=== PATIENT | male | born 1940 | race Caucasian/White ===

== ENCOUNTER 2016-05-08 09:24 | Observation (INO) | payer OTHER ==
[~2016-05-08] VITALS: Ht 177.8 cm; Wt 77.4 kg
[~2016-05-08 09:24] MED LIST: ASPI81TA28 PO; CALC-445; DIGO0.122 PO; ELQ25 PO; LISI40TA PO; METF-384 PO; MOME200A INH; MONT1TAB5 PO; NTRSLP4 SL; SIMV40TA2 PO; VERA240C2 PO
[2016-05-08] MEDS ORDERED: SODIUM CHLORIDE 0.9% 500ML 500 ML IV STA (09:47)
[2016-05-08] MEDS ORDERED: CLOP1TAB15 PO (09:48)
[2016-05-08] MEDS ORDERED: DILT240C48 PO (09:48)
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
[2016-05-08] MEDS ORDERED: DILT120C PO (09:51)
--- NOTE | 2016-05-08 09:53 | DIAGNOSTIC IMAGING REPORT ---
SINGLE VIEW CHEST CLINICAL HISTORY: Change in mental status. FINDINGS: An AP, portable, upright chest radiograph is compared to study dated 03/08/2016. Correlation is made with chest CT dated 06/07/2012. The examination is degraded by portable technique and patient rotation. The heart is mildly enlarged and there is atherosclerotic calcification of the thoracic aorta. The pulmonary vasculature is noncongested. Emphysema and chronic interstitial thickening is similar to previous. No airspace consolidation or pleural effusion is identified. No pneumothorax is seen. The skeletal structures are osteopenic. The bony thorax is grossly intact. IMPRESSION: Cardiomegaly and emphysema with no acute cardiopulmonary abnormality. Electronically signed by: Eze Chairez M.D. 05/08/2016 9:51 AM
[2016-05-08 09:55] LABS: BASO % 0.5 %; BASO ABS # 0.05 K/uL (0-0.2); COMPLETE YES; EOS % 3.2 %; HEMATOCRIT 43.7 % (42-52); IG% 0.5 %; LYMPH % 18.4 %; LYMPH ABS # 1.75 K/uL (1.2-3.4); MEAN CELL VOLUME 90.3 fL (80-100); MEAN CORPUSCULAR HEMOGLOBIN 30.6 pg (25-34); MEAN CORPUSCULAR HGB CONC 33.9 g/dl (32-36); MEAN PLATELET VOLUME 10.2 fL (7.4-10.4); MONO % 5.9 %; NEUT % 71.5 %; PLATELET COUNT 226 K/uL (130-400); RED BLOOD COUNT 4.84 M/uL (4.7-6.1); WHITE BLOOD COUNT 9.52 K/uL (4.8-10.8)
[2016-05-08] MEDS ORDERED: ALBUT/IPRATROP 3MG/0.5MG NEB 3 ML VIAL INH ONE (10:00)
--- NOTE | 2016-05-08 10:13 | DIAGNOSTIC IMAGING REPORT ---
CT SCAN OF THE BRAIN WITHOUT IV CONTRAST CLINICAL HISTORY: Change in mental status. COMPARISON STUDY: MRI of the brain dated 05/29/2013. TECHNIQUE: Unenhanced axial CT scan of the brain is performed from the vertex to the skull base. CT DOSE: 537.48 mGy.cm FINDINGS: Brain parenchyma: There are age-related involutional changes noting [id number] patchy subcortical and periventricular microangiopathic change. Chronic lacunar infarcts are identified in the basal ganglia bilaterally. There is no hemorrhage, mass effect, or evidence of acute territorial ischemia by CT criteria. Rhodes-white matter is preserved. No extra-axial fluid collection is seen. Ventricles, sulci, cisterns: Prominent secondary to involutional change. Intracranial vasculature: There is atherosclerotic calcification of the cavernous carotid and vertebral arteries. Calvarium: Unremarkable. Sinuses and mastoids: The visualized paranasal sinuses are clear. The mastoid air cells are well pneumatized. Orbits: The bony orbits are grossly intact. There are bilateral ocular lens implants. IMPRESSION: There is no hemorrhage, mass effect, or evidence of acute territorial ischemia by CT criteria. Electronically signed by: Eze Chairez M.D. 05/08/2016 10:11 AM
[2016-05-08 10:15] VITALS: PULSE 65; O2SAT 96
[2016-05-08 10:33] LABS: ALT/SGPT 28 U/L (12-78); BLOOD UREA NITROGEN 12 mg/dl (7-18); BUN/CREATININE RATIO 13.1 (10-20); CALCIUM 8.4 mg/dl (8.5-10.1); CARBON DIOXIDE 26 mmol/L (21-32); CHLORIDE 104 mmol/L (98-107); CREATININE 0.93 mg/dl (0.60-1.40); GLUCOSE 184 mg/dl (70-99); POTASSIUM 4.6 mmol/L (3.5-5.1); SODIUM 141 mmol/L (136-145)
[2016-05-08 10:41] LABS: ALKALINE PHOSPHATASE 62 U/L (45-117); AST/SGOT 25 U/L (15-37); CKMB/CK RATIO 2.4 (0-3.0)
[2016-05-08 11:47] VITALS: BMI 24.5
[2016-05-08] MEDS ORDERED: APIXABAN 2.5 MG TAB PO ONE (12:05)
[2016-05-08] MEDS ORDERED: ALBUT/IPRATROP 3MG/0.5MG NEB 3 ML VIAL INH PRN (12:15)
[2016-05-08] MEDS ORDERED: ZOLPIDEM TARTRATE 5 MG TAB PO PRN (12:15)
[2016-05-08] MEDS ORDERED: ONDANSETRON INJ 2 MG/ML 2 ML VIAL IV PRN (12:15)
[2016-05-08] MEDS ORDERED: ACETAMINOPHEN 325 MG TAB PO PRN (12:15)
[2016-05-08] MEDS ORDERED: PHARMACIST DISCHARGE MED REC CONSULT PRN (12:15)
[2016-05-08] MEDS ORDERED: NITROGLYCERIN 0.4 MG SL PER TAB CHARGE SL PRN (12:15)
[2016-05-08] MEDS ORDERED: ALUMINUM/MAGNESIUM/SIMETH (MAALOX MAX) 30 ML UDC PO PRN (12:15)
[2016-05-08] MEDS ORDERED: MAGNESIUM HYDROXIDE SUSP 30 ML UDC PO PRN (12:15)
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
[2016-05-08] MEDS ORDERED: GLUCOSE 40% GEL 15 GM TUBE PO PRN (13:00)
[2016-05-08] MEDS ORDERED: DEXTROSE 50% 50 ML SYR IV PRN (13:00)
[2016-05-08] MEDS ORDERED: GLUCAGON FOR INJ 1 MG VIAL SQ PRN (13:00)
[2016-05-08] MEDS ORDERED: DC ALL PREVIOUSLY ORDERED DIABETES MEDS ONE (13:00)
[2016-05-08] MEDS ORDERED: GLUCOSE 10 TABS/TUBE PO PRN (13:00)
--- NOTE | 2016-05-08 13:12 | DIAGNOSTIC IMAGING REPORT ---
ULTRASOUND OF THE CAROTID ARTERIES CLINICAL HISTORY: Strokelike symptoms. COMPARISON STUDY: No priors. TECHNIQUE: Real-time, grayscale, and color Doppler sonography of the carotid arteries is performed. Images are reviewed in the transverse and longitudinal planes. FINDINGS: Blood pressures were not assessed due to the presence of IV catheters. The carotid arteries are patent bilaterally and demonstrate antegrade flow. There is moderate echogenic shadowing atherosclerotic plaque seen bilaterally, right greater than left. Normal doppler arterial waveforms are seen throughout. Velocity measurements are listed below. Common carotid peak systolic velocity (cm/sec): RIGHT: 127 LEFT: 117 ICA proximal peak systolic velocity (cm/sec): RIGHT: 87 LEFT: 82 ICA mid peak systolic velocity (cm/sec): RIGHT: 111 LEFT: 106 ICA distal peak systolic velocity (cm/sec): RIGHT: 102 LEFT: 91 ICA/CC peak systolic ratio: RIGHT: 0.9 LEFT: 0.9 Antegrade flow was shown in the vertebral arteries. The external carotid arteries are patent. IMPRESSION: 1. Atherosclerotic plaque with no sonographic evidence of hemodynamically significant stenosis in the right or left carotid arterial system. 2. Antegrade flow is shown in the vertebral arteries. Electronically signed by: Eze Chairez M.D. 05/08/2016 1:10 PM
[2016-05-08] MEDS ORDERED: IV FLUIDS COMPLETED PRN (13:45)
[2016-05-08 14:07] VITALS: BP 126/68; PULSE 81; TEMP 36.3; O2SAT 94
[2016-05-08] MEDS ORDERED: DILT120C99 PO (15:12)
[2016-05-08 15:22] VITALS: BP 119/86; PULSE 104; TEMP 37.4; O2SAT 92
[2016-05-08] MEDS: DULERA: ORDER AWAITING ACTION SCH (15:28)
[2016-05-08] MEDS: ASPIRIN 81 MG ECTAB PO SCH ×2 (15:28→20:57)
[2016-05-08] MEDS: CLOPIDOGREL BISULFATE 75 MG TAB PO SCH (15:29)
[2016-05-08] MEDS ORDERED: NURSING VERBAL MED ORDER ONE (15:30)
[2016-05-08 15:48] LABS: URINE APPEARANCE CLEAR (CLEAR); URINE BILIRUBIN NEG (NEG); URINE COLOR YELLOW; URINE NITRITE NEG (NEG); UROBILINOGEN NEG (NEG)
[2016-05-08 15:59] LABS: MANUAL MICROSCOPIC REQUIRED? NO; REVIEW REQ? NO
[2016-05-08] MEDS: INSULIN ASPART 100 UNITS/ML 3 ML PEN SC SCH ×2 (17:18→21:02)
[2016-05-08 18:44] LABS: CKMB/CK RATIO 2.5 (0-3.0)
[2016-05-08 19:16] VITALS: BP 136/81; PULSE 72; TEMP 36.7; O2SAT 94
[2016-05-08 20:00] VITALS: O2SAT 94
[2016-05-08] MEDS: APIXABAN 2.5 MG TAB PO SCH (20:59)
[2016-05-08] MEDS ORDERED: DILTIAZEM HCL 120 MG CAPCR PO SCH (21:00)
[2016-05-08 23:35] VITALS: BP_SYST 125; BP_SYST 135; BP_SYST 137; BP_DIAS 72; BP_DIAS 75; BP_DIAS 79; PULSE 65; TEMP 36.8; O2SAT 93
[2016-05-09] VITALS (7 sets, daily range): BP systolic 145–168; BP diastolic 54–81; PULSE 59–67; TEMP 36.4–36.8; O2SAT 93–96; Ht 177.8 cm; Wt 77.4 kg
[2016-05-09 02:13] LABS: BASO % 0.6 %; BASO ABS # 0.06 K/uL (0-0.2); COMPLETE YES; EOS % 4.4 %; HEMATOCRIT 41.1 % (42-52); IG% 0.3 %; LYMPH % 17.6 %; LYMPH ABS # 1.67 K/uL (1.2-3.4); MEAN CELL VOLUME 90.3 fL (80-100); MEAN CORPUSCULAR HEMOGLOBIN 30.8 pg (25-34); MEAN CORPUSCULAR HGB CONC 34.1 g/dl (32-36); MEAN PLATELET VOLUME 9.7 fL (7.4-10.4); MONO % 7.7 %; NEUT % 69.4 %; PLATELET COUNT 213 K/uL (130-400); RED BLOOD COUNT 4.55 M/uL (4.7-6.1); WHITE BLOOD COUNT 9.47 K/uL (4.8-10.8)
[2016-05-09 02:31] LABS: BLOOD UREA NITROGEN 10 mg/dl (7-18); BUN/CREATININE RATIO 11.4 (10-20); CALCIUM 8.5 mg/dl (8.5-10.1); CARBON DIOXIDE 26 mmol/L (21-32); CHLORIDE 107 mmol/L (98-107); CREATININE 0.92 mg/dl (0.60-1.40); GLUCOSE 157 mg/dl (70-99); SODIUM 142 mmol/L (136-145)
[2016-05-09 02:46] LABS: CHOLESTEROL 150 mg/dl (0-200); CHOLESTEROL/HDL RATIO 2.9; CKMB/CK RATIO 2.3 (0-3.0); HDL CHOLESTEROL 51 mg/dl; LDL CHOLESTEROL CALCULATED 64 mg/dl; TRIGLYCERIDES 174 mg/dl (0-150); VERY LOW DENSITY LIPOPROT CALC 35 mg/dl
[2016-05-09] MEDS ORDERED: GADAVIST IV PRN (03:30)
--- NOTE | 2016-05-09 07:07 | DIAGNOSTIC IMAGING REPORT ---
MRA OF THE INTRACRANIAL CIRCULATION WITHOUT CONTRAST CLINICAL HISTORY: Stroke. Confusion. COMPARISON STUDY: None. TECHNIQUE: Utilizing a 1.5 Ramona magnet and 3-D [id number] technique, unenhanced MRA of the intracranial circulation was obtained. FINDINGS: The bilateral M1, M2, A1 and A2 segments are patent. No abrupt vessel cut off is identified. No aneurysm is identified within the intracranial circulation although sensitivity for detection of small aneurysms is diminished on this exam. Posterior circulation is intact. IMPRESSION: Unremarkable MRA of the intracranial circulation. Electronically signed by: Kevin Hernández M.D. 05/09/2016 7:05 AM
--- NOTE | 2016-05-09 07:27 | DIAGNOSTIC IMAGING REPORT ---
Brain MRI WITH AND WITHOUT CONTRAST HISTORY: Stroke TECHNIQUE: Multiplanar multisequence MRI of the brain was performed both before and after the intravenous administration of contrast. COMPARISON STUDY: Head CT 05/08/2016. Brain MRI 05/29/2013. FINDINGS: There are no areas of restricted diffusion to suggest acute infarction. The midline structures are intact. The paranasal sinuses are clear. The mastoid air cells are clear. The ventricles and sulci are within normal limits for age. There is no hematoma, midline shift. The major vascular flow-voids at the skull base are well maintained. Stable 9 x 3 mm right parafalcine enhancing extra-axial lesion best seen on image 18 of the axial T1 postcontrast sequences. This is consistent with a meningioma. There is also a stable 7 mm right posterior frontal peripheral T2 hypointense lesion. This likely represents a cavernoma. IMPRESSION: No significant change compared to the prior study. No acute intracranial abnormality. Small cavernoma and small meningioma as described above. Electronically signed by: Reagan Villanueva M.D. 05/09/2016 7:26 AM
[2016-05-09] MEDS: INSULIN ASPART 100 UNITS/ML 3 ML PEN SC SCH ×2 (07:55→12:33)
[2016-05-09] MEDS: DULERA: ORDER AWAITING ACTION SCH ×2 (08:00)
[2016-05-09] MEDS: APIXABAN 2.5 MG TAB PO SCH (08:05)
[2016-05-09] MEDS: CLOPIDOGREL BISULFATE 75 MG TAB PO SCH (08:05)
[2016-05-09] MEDS: ASPIRIN 81 MG ECTAB PO SCH (08:06)
[2016-05-09 08:08] LABS: ESTIMATED AVERAGE GLUCOSE 189 mg/dl; HA1C FLAG Normal (Normal)
[2016-05-09] MEDS ORDERED: MONTELUKAST SOD 10 MG TAB PO SCH (09:00)
[2016-05-09] MEDS ORDERED: SIMVASTATIN 40 MG TAB PO SCH (09:00)
[2016-05-09] MEDS ORDERED: LISINOPRIL 40 MG TAB PO SCH (09:00)
[2016-05-09] MEDS ORDERED: DILTIAZEM HCL 120 MG CAPCR PO SCH (09:00)
--- NOTE | 2016-05-09 14:58 | Discharge Instructions ---
Discharge Instructions Admission Reason for Admission: TIA (Quin Miranda, MATTHEW) Discharge Discharge Diagnosis / Problem: TIA (Quin Miranda, MATTHEW) Discharge Goals Goal(s): Learn about illness, Diagnostic testing, Therapeutic intervention, Prevent Disease Progression (Quin Miranda, MATTHEW) Activity Recommendations Activity Limitations: resume your previous activity . (Quin Miranda, MATTHEW) Instructions / Follow-Up Instructions / Follow-Up Resume all regular home medications as prescribed to you Please follow-up with Dr. Heck on May 16 at 2:30pm Please follow-up/keep all of your subspecialty appointments Risk Factors for Stroke: You can reduce your chances of stroke by working with your medical provider to adopt a healthy lifestyle. Some specific ways to lower your chance of stroke are: * If you are a smoker, now is the time to stop smoking cigarettes * If you are diabetic, improve the control of your blood sugars * Avoid excessive amounts of alcohol * Control high blood pressure * Lose weight if you are overweight * Be sure to lead an active lifestyle * Eat a healthy diet low in salt, cholesterol and fat You should know about other risk factors for stroke that you are unable to control. These include: * Age 55 years or older * Male gender * Certain racial groups: , or / * Family History of Stroke, Mini stroke or Heart Attack * Sickle Cell Disease Follow Up: It is important for you to keep your follow up appointments with your medical provider. (Quin Miranda PA-C) Current Hospital Diet Patient's current hospital diet: Diabetes Type 2 Diet, AHA Diet (Heart Healthy) (Quin Miranda PA-C) Discharge Diet Recommended Diet: AHA Diet (Heart Healthy) (Quin Miranda PA-C) Procedures Procedures Performed: 1. CXR 2. Carotid U/S 3. Head MRA 4. MRI of brain 5. Head CT 6. Echocardiogram (Quin Miranda PA-C) Pending Studies Studies pending at discharge: no (Quin Miranda PA-C) Laboratory Results Last 24 Hours Test 05/08/16 15:30 05/08/16 16:02 05/08/16 18:11 05/08/16 20:00 Urine Color YELLOW Urine Appearance CLEAR Urine pH 5.0 Urine Specific Crary 1.000 Urine Protein NEG Urine Glucose (UA) NEG Urine Ketones NEG Urine Occult Blood NEG Urine Nitrite NEG Urine Bilirubin NEG Urine Urobilinogen NEG Urine Leukocyte Esterase NEG Bedside Glucose 259 mg/dl 211 mg/dl Total Creatine Kinase 92 U/L Creatine Kinase MB 2.3 ng/ml Creatine Kinase MB Ratio 2.5 Troponin I < 0.015 ng/ml Test 05/09/16 02:05 05/09/16 07:12 05/09/16 11:05 White Blood Count 9.47 K/uL Red Blood Count 4.55 M/uL Hemoglobin 14.0 g/dL Hematocrit 41.1 % Mean Corpuscular Volume 90.3 fL Mean Corpuscular Hemoglobin 30.8 pg Mean Corpuscular Hemoglobin Concent 34.1 g/dl Platelet Count 213 K/uL Mean Platelet Volume 9.7 fL Neutrophils (%) (Auto) 69.4 % Lymphocytes (%) (Auto) 17.6 % Monocytes (%) (Auto) 7.7 % Eosinophils (%) (Auto) 4.4 % Basophils (%) (Auto) 0.6 % Neutrophils # (Auto) 6.56 K/uL Lymphocytes # (Auto) 1.67 K/uL Monocytes # (Auto) 0.73 K/uL Eosinophils # (Auto) 0.42 K/uL Basophils # (Auto) 0.06 K/uL RDW Standard Deviation 55.6 fL RDW Coefficient of Variation 16.9 % Immature Granulocyte % (Auto) 0.3 % Immature Granulocyte # (Auto) 0.03 K/uL Sodium Level 142 mmol/L Potassium Level 4.0 mmol/L Chloride Level 107 mmol/L Carbon Dioxide Level 26 mmol/L Anion Gap 9.0 mmol/L Blood Urea Nitrogen 10 mg/dl Creatinine 0.92 mg/dl Est Creatinine Clear Calc Drug Dose 72.7 ml/min Estimated GFR () 94.6 Estimated GFR (Non- 81.6 BUN/Creatinine Ratio 11.4 Random Glucose 157 mg/dl Calcium Level 8.5 mg/dl Total Creatine Kinase 77 U/L Creatine Kinase MB 1.8 ng/ml Creatine Kinase MB Ratio 2.3 Troponin I < 0.015 ng/ml Triglycerides Level 174 mg/dl Cholesterol Level 150 mg/dl HDL Cholesterol 51 mg/dl LDL Cholesterol, Calculated 64 mg/dl VLDL Cholesterol, Calculated 35 mg/dl Cholesterol/HDL Ratio 2.9 Bedside Glucose 195 mg/dl 197 mg/dl Hemoglobin A1c Test 05/08/16 08:50 Range/Units Estimated Average Glucose 189 mg/dl Hemoglobin A1c 8.2 H 4.5-5.6 % Lipid Panel Test 05/09/16 02:05 Range/Units Triglycerides Level 174 H 0-150 mg/dl Cholesterol Level 150 0-200 mg/dl HDL Cholesterol 51 mg/dl Cholesterol/HDL Ratio 2.9 LDL Cholesterol, Calculated 64 mg/dl (Quin Miranda, PA-C) Medical Emergencies . Who to Call and When: Medical Emergencies: Call 911 immediately if you experience any of the following warning signs and symptoms of Stroke: * Sudden numbness or weakness of the face, arm or leg, especially on one side of the body * Sudden confusion, trouble speaking or understanding * Sudden trouble seeing in one or both eyes * Sudden trouble walking, dizziness, loss of balance or coordination * Sudden severe headache with no cause Do not delay calling 911 if you experience any warning signs or symptoms of a stroke. Delay in seeking medical attention may affect what treatments can be given to you. . (Quin Miranda ., ANA MARIA-C) Non-Emergent Contact Non-Emergency issues call your: Primary Care Provider Call Non-Emergent contact if: you have a fever, you have any medication questions . (Quin Miranda, SHARONC) . "Provider Documentation" section prepared by Quin Miranda. (Quin Miranda PA-C) Stroke Core Measures Reason no t-PA for Stroke: Treatment not indicated Reason no antithrom by day 2: Treatment provided - N/A Reason no antithrom at D/C: Treatment provided - N/A Reason no statin at D/C: Treatment provided - N/A Reason no anticoag w/a fib: Treatment provided - N/A (Quin Miranda, ANA MARIA-C) VTE Core Measure Inpt VTE Proph given/why not?: Other Anticoagulation (Eliquis) (Quin Miranda, SHARONC)
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
--- NOTE | 2016-05-09 15:21 | ECHOCARDIOGRAM REPORT ---
*NOTICE TO RECEIVING DEMOCRAT AGENCY This information is strictly Confidential and protected under [place] law. [place] law prohibits you from making any further disclosure of this information unless further disclosure is expressly permitted by the written consent of the person to whom it pertains or is authorized by law. A general authorization for the release of medical or other information is not sufficient for this purpose. Hospital accepts no responsibility if the information is made available to any other person, INCLUDING THE PATIENT. Interpretation Summary * Name: LUCIAN LOPEZ Study Date: 05/09/2016 06:56 AM BP: 153/79 mmHg * Patient Location: [facility] [place] HR: 65 * : 1940 (M/d/yyyy) Gender: Male Height: 70 in * Age: 75 yrs Ethnicity: CA Weight: 170 lb * Ordering Physician: PEE GONCALVES MD * Performed By: Manisha Beckman * * Reason For Study: CEREBRAL ISCHEMIA/ EMBOLUS * BSA: 1.9 m2 * -- Conclusions -- * 1. Borderline LV dilation with normal LV wall thickness. * 2. Normal LV systolic function. LVEF 60-65%. No regional wall motion abnormalities. * 3. Normal RV size and function. * 4. Mild aortic sclerosis without stenosis. * 5. Grade I diastolic dysfunction. * 6. Negative saline contrast study for interatrial shunt. * 7. Compared with prior study on 06/10/2015: No significant changes. Procedure Details * A complete two-dimensional transthoracic echocardiogram was performed (2D, M-mode, Doppler and color flow Doppler). * A saline contrast injection was performed to assess for cardiac shunting. * The injection was performed through an intravenous line in the left arm. * The attending nurse who injected the saline contrast was WADE SOL RN. * A total of 30 cc of agitated saline was given. Left Ventricle * The left ventricle is borderline dilated. * There is normal left ventricular wall thickness. * Ejection Fraction = 60-65%. * No regional wall motion abnormalities noted. Right Ventricle * The right ventricle is grossly normal size. * The right ventricular systolic function is normal as assessed by tricuspid annular plane systolic excursion (TAPSE) (normal >1.5 cm). Atria * The left atrium is borderline dilated. * Right atrial size is normal. * Injection of contrast documented no interatrial shunt. Mitral Valve * There is mild mitral annular calcification. * There is no mitral valve stenosis. * Significant mitral regurgitation is absent. Tricuspid Valve * The tricuspid valve is not well visualized, but is grossly normal. * There is no tricuspid stenosis. * Significant tricuspid regurgitation is absent. Aortic Valve * Aortic valve sclerosis mild, without significant aortic valvular stenosis. * No hemodynamically significant valvular aortic stenosis. * There is no significant aortic regurgitation. Pulmonic Valve * The pulmonary valve is inadequately visualized, but the Doppler data is adequate for interpretation. * Pulmonic stenosis is absent. * There is no pulmonic valvular regurgitation. Great Vessels * The aortic root and proximal ascending aorta are normal sized. Pericardium/Pleural * Trivial pericardial effusion Great Vessels * Normal inferior vena cava size and collapsability with sniff indicates a normal right atrial pressure of 3 mmHg Left Ventricular Diastolic Function * Grade I diastolic dysfunction, (abnormal relaxation pattern). MMode 2D Measurements and Calculations IVSd 0.89 cm IVSs 1.0 cm LVIDd 5.6 cm LVIDs 3.6 cm LVPWd 0.52 cm LVPWs 1.3 cm IVS/LVPW 1.7 FS 35.3 % EDV(Teich) 151.6 ml ESV(Teich) 54.4 ml EF(Teich) 64.1 % EDV(cubed) 172.6 ml ESV(cubed) 46.7 ml EF(cubed) 73.0 % % IVS thick 16.3 % % LVPW thick 146.2 % LV mass(C)d 140.0 grams LV mass(C)dI 71.9 grams/m\S\2 LV mass(C)s 134.3 grams LV mass(C)sI 69.0 grams/m\S\2 CO(Teich) 5.8 l/min CI(Teich) 3.0 l/min/m\S\2 SV(Teich) 97.2 ml SI(Teich) 49.9 ml/m\S\2 CO(cubed) 7.6 l/min CI(cubed) 3.9 l/min/m\S\2 SV(cubed) 126.0 ml SI(cubed) 64.7 ml/m\S\2 ACS 0.92 cm LA dimension 4.0 cm asc Aorta Diam 3.5 cm LVOT diam 2.3 cm LVOT area 4.1 cm\S\2 LVAd ap4 26.9 cm\S\2 LVLd ap4 7.7 cm EDV(MOD-sp4) 77.9 ml LVAs ap4 12.8 cm\S\2 LVLs ap4 5.8 cm ESV(MOD-sp4) 25.5 ml EF(MOD-sp4) 67.3 % LVAd ap2 21.2 cm\S\2 LVLd ap2 6.6 cm EDV(MOD-sp2) 59.0 ml LVAs ap2 10.1 cm\S\2 LVLs ap2 5.2 cm ESV(MOD-sp2) 16.7 ml EF(MOD-sp2) 71.7 % CO(MOD-sp4) 3.1 l/min CI(MOD-sp4) 1.6 l/min/m\S\2 SV(MOD-sp4) 52.4 ml SI(MOD-sp4) 26.9 ml/m\S\2 CO(MOD-sp2) 2.5 l/min CI(MOD-sp2) 1.3 l/min/m\S\2 SV(MOD-sp2) 42.3 ml SI(MOD-sp2) 21.7 ml/m\S\2 Doppler Measurements and Calculations MV E max nemesio 97.5 cm/sec MV A max nemesio 116.4 cm/sec MV E/A 0.84 MV V2 max 129.0 cm/sec MV max PG 6.7 mmHg MV V2 mean 65.8 cm/sec MV mean PG 2.1 mmHg MV V2 VTI 49.1 cm MV dec time 0.20 sec Ao V2 max 188.7 cm/sec Ao max PG 14.2 mmHg Ao max PG (full) 9.7 mmHg VIVEK(V,A) 2.3 cm\S\2 VIVEK(V,D) 2.3 cm\S\2 LV V1 max PG 4.6 mmHg LV V1 max 106.7 cm/sec PA V2 max 100.4 cm/sec PA max PG 4.0 mmHg
[2016-08-10] MEDS ORDERED: PRLSR20 PO (11:55)
[2016-08-10] MEDS ORDERED: CHOL2000 PO (11:55)
[2016-08-10] MEDS ORDERED: APIX1TAB3 PO (11:55)
[2016-08-10] MEDS ORDERED: GLIM1TAB2 PO (11:55)
[2016-08-10] MEDS ORDERED: CYAN10005 PO (11:55)
[2016-11-26] MEDS ORDERED: PRD10 PO (16:27)
[2016-11-26] MEDS ORDERED: IPRA1AER2 INH (16:27)
[2016-11-26] MEDS ORDERED: LNX125 PO (16:27)
== END 2016-05-09 16:42 | disposition home or self-care (01) ==
LOC: ENRESERVDT → ENRESERVTM → C.EDA 09:24 → EDBD 09:24 → C.2T 12:14
PROVIDERS: ADMIT Family Medicine; ATTEND Family Medicine
DX: G45.9 Transient cerebral ischemic attack, unspecified (principal); E11.9 Type 2 diabetes mellitus without complications; E78.5 Hyperlipidemia, unspecified; H91.90 Unspecified hearing loss, unspecified ear; I10 Essential (primary) hypertension; I25.10 Atherosclerotic heart disease of native coronary artery without angina pectoris; I48.0 Paroxysmal atrial fibrillation; J45.909 Unspecified asthma, uncomplicated; R41.82 Altered mental status, unspecified; Z79.82 Long term (current) use of aspirin; Z86.73 Personal history of transient ischemic attack (TIA), and cerebral infarction without residual deficits; Z87.891 Personal history of nicotine dependence

== ENCOUNTER 2016-06-09 04:42 | Emergency (ER) | payer OTHER ==
[~2016-06-09] VITALS: Ht 177.8 cm; Wt 73.5 kg
[~2016-06-09 04:42] MED LIST changes: +CLOP1TAB15 PO; -DIGO0.122 PO; +DILT120C99 PO; -VERA240C2 PO
[2016-06-09 04:52] VITALS: TEMP 36.5; Ht 177.8 cm; Wt 73.5 kg
--- NOTE | 2016-06-09 04:57 | EMERGENCY ROOM VISIT NOTE ---
History Report prepared by Damien: Layla Kirkpatrick Under the Supervision of: Dr. Hitesh Roldan M.D. First contact with patient: 04:46 Chief Complaint: CONFUSION Stated Complaint: CONFUSION History of Present Illness The patient is a 75 year old male who presents to the Emergency Room with complaints of confusion. His reports he woke up around 0345 this morning and seemed to be confused. The patient had a similar episode last month, so his became worried and called an ambulance. The patient denies any recent illnesses and states he feels fine here in the ED. He denies any headache, chest pain, shortness of breath, abdominal pain, diarrhea or urinary symptoms. He admits to some mild wheezing and coughing, but states "I always wheeze". He is currently on daily blood thinners. Source of History: patient, spouse/significant other () Onset: 0345 this morning Position: other (global) Quality: other (confusion) Associated Symptoms: + cough, No SOB, No abdominal pain, No chest pain, No diarrhea, No headache, No urinary symptoms Review of Systems See HPI for pertinent positives & negatives. A total of 10 systems reviewed and were otherwise negative. Past Medical & Surgical Medical Problems: (1) Afib (2) ANTICOAGULANTS,LT,CURRENT USE (3) Asthma (4) Atrial flutter (5) Diabetes (6) History of - atrial fibrillation (7) HYPERTENSION NOS (8) Pneumonia (9) TIA (transient ischemic attack) Family History Cancer Heart disease Hypertension Social History Smoking Status: Former Smoker Alcohol Use: none Drug Use: none Marital Status: Housing Status: lives with family Occupation Status: employed Current/Historical Medications Scheduled Apixaban (Eliquis), 5 MG PO BID Aspirin (Aspirin Ec), 81 MG PO BID Calcium Carbonate-Cholecalcife (Calcium 1000 + D), 1 TAB PO DAILY Clopidogrel (Plavix), 75 MG PO DAILY Diltiazem Hcl Coated Beads (Diltiazem Cd), 120 MG PO HS Lisinopril (Zestril), 40 MG PO DAILY Metformin Hcl (Glucophage), 1,000 MG PO BID Mometasone Furoate-Formoterol (Dulera 200/5 Mcg), 2 PUFFS INH BID Montelukast Sodium (Montelukast Sodium), 10 MG PO DAILY Simvastatin (Zocor), 40 MG PO DAILY Scheduled PRN Nitroglycerin (Nitrostat), 0.4 MG SL UD PRN for Chest Pain Allergies Coded Allergies: POLLEN (Verified Allergy, Mild, CONGESTION, 06/09/16) Physical Exam Vital Signs Date Time Temp Pulse Resp B/P Pulse Ox O2 Delivery O2 Flow Rate FiO2 06/09/16 06:29 63 18 134/80 95 Room Air 06/09/16 05:23 59 13 132/79 97 Room Air 06/09/16 04:54 64 06/09/16 04:52 36.5 65 14 156/90 95 Room Air Physical Exam GENERAL: Patient is well appearing and in no acute distress. HEENT: No acute trauma, normocephalic atraumatic, mucous membranes moist, no nasal congestion, no scleral icterus. NECK: No stridor, no adenopathy, no meningismus, trachea is midline. LUNGS: No dyspnea. Clear to auscultation and equal bilaterally. No wheeze, no rhonchi. HEART: Regular rate and rhythm. No murmurs, rubs, gallops appreciated. ABDOMEN: Soft, nontender, bowel sounds positive, no masses appreciated, no peritonitis. BACK: No midline tenderness, no CVA tenderness EXTREMITIES: Normal motion all extremities, no cyanosis, no edema. NEUROLOGIC: Alert and oriented, no acute motor or sensory deficits, no focal weakness, cranial nerves grossly intact. SKIN: No rash, no jaundice, no diaphoresis. Medical Decision & Procedures ER Provider Diagnostic Interpretation: This CT scan was reviewed and interpreted by the radiologist and reviewed by myself. CT HEAD: No acute intracranial hemorrhage. No CT evidence of acute infarct. No mass effect or midline shift. Age-related changes. Ex vacuo dilatation of the ventricles. Visualized portions of paranasal sinuses and mastoid air cells are clear. Radiologist: Briana Osuna M.D. X-ray results are stated below per my interpretation: Chest: 1 view: No infiltrate, no effusion, normal cardiac border. Chronic lung disease seen on X-Ray. Laboratory Results 06/09/16 04:15 Red Blood Count 5.15, Mean Corpuscular Volume 91.1, Mean Corpuscular Hemoglobin 30.5, Mean Corpuscular Hemoglobin Concent 33.5, Mean Platelet Volume 10.1, Neutrophils (%) (Auto) 66.6, Lymphocytes (%) (Auto) 23.1, Monocytes (%) (Auto) 8.1, Eosinophils (%) (Auto) 0.3, Basophils (%) (Auto) 0.3, Neutrophils # (Auto) 8.58, Lymphocytes # (Auto) 2.97, Monocytes # (Auto) 1.04, Eosinophils # (Auto) 0.04, Basophils # (Auto) 0.04 06/09/16 04:15 Test 06/09/16 04:15 06/09/16 05:05 White Blood Count 12.88 K/uL (4.8-10.8) Red Blood Count 5.15 M/uL (4.7-6.1) Hemoglobin 15.7 g/dL (14.0-18.0) Hematocrit 46.9 % (42-52) Mean Corpuscular Volume 91.1 fL (80-100) Mean Corpuscular Hemoglobin 30.5 pg (25-34) Mean Corpuscular Hemoglobin Concent 33.5 g/dl (32-36) Platelet Count 275 K/uL (130-400) Mean Platelet Volume 10.1 fL (7.4-10.4) Neutrophils (%) (Auto) 66.6 % Lymphocytes (%) (Auto) 23.1 % Monocytes (%) (Auto) 8.1 % Eosinophils (%) (Auto) 0.3 % Basophils (%) (Auto) 0.3 % Neutrophils # (Auto) 8.58 K/uL (1.4-6.5) Lymphocytes # (Auto) 2.97 K/uL (1.2-3.4) Monocytes # (Auto) 1.04 K/uL (0.11-0.59) Eosinophils # (Auto) 0.04 K/uL (0-0.5) Basophils # (Auto) 0.04 K/uL (0-0.2) RDW Standard Deviation 54.3 fL (36.4-46.3) RDW Coefficient of Variation 16.3 % (11.5-14.5) Immature Granulocyte % (Auto) 1.6 % Immature Granulocyte # (Auto) 0.21 K/uL (0.00-0.02) Anion Gap 8.0 mmol/L (3-11) Est Creatinine Clear Calc Drug Dose 60.8 ml/min Estimated GFR () 76.2 Estimated GFR (Non- 65.8 BUN/Creatinine Ratio 18.8 (10-20) Calcium Level 8.9 mg/dl (8.5-10.1) Total Bilirubin 0.4 mg/dl (0.2-1) Direct Bilirubin < 0.1 mg/dl (0-0.2) Aspartate Amino Transf (AST/SGOT) 12 U/L (15-37) Alanine Aminotransferase (ALT/SGPT) 24 U/L (12-78) Alkaline Phosphatase 63 U/L (45-117) Troponin I < 0.015 ng/ml (0-0.045) Total Protein 7.4 gm/dl (6.4-8.2) Albumin 3.8 gm/dl (3.4-5.0) Urine Color YELLOW Urine Appearance CLEAR (CLEAR) Urine pH 5.0 (4.5-7.5) Urine Specific [place] 1.009 (1.000-1.030) Urine Protein NEG (NEG) Urine Glucose (UA) TRACE (NEG) Urine Ketones NEG (NEG) Urine Occult Blood NEG (NEG) Urine Nitrite NEG (NEG) Urine Bilirubin NEG (NEG) Urine Urobilinogen NEG (NEG) Urine Leukocyte Esterase NEG (NEG) Urine WBC (Auto) 1-5 /hpf (0-5) Urine RBC (Auto) 0-4 /hpf (0-4) Urine Hyaline Casts (Auto) 0 /lpf (0-5) Urine Epithelial Cells (Auto) 5-10 /lpf (0-5) Urine Bacteria (Auto) NEG (NEG) Laboratory results as reviewed by me. ECG Indication: altered mental status Rate (beats per minute): 60 Rhythm: normal sinus (normal sinus rhythm) Findings: no acute ischemic change, no ectopy ED Course 0450: The patient was evaluated in room A11B. A complete history and physical exam was performed. 0548: I reevaluated the patient. He is feeling well. 0635: I reevaluated the patient. He is feeling well and states he is ready to go home. I discussed his results and discharge instructions and he and his verbalized complete understanding and agreement. His states she will stay with him for the next several days to keep an eye on him. Medical Decision Differential: Toxicological, Infectious, Stroke, SAH, Trauma, Electrolyte Abnormality, Hypoglycemia, Alcohol Intoxication, Drug Intoxication, Cardiac Abnormality, Sepsis, Meningitis/Encephalitis, Trauma, Excited Delirium, Serotonin Syndrome, Psychiatric, amongst other pathologies entertained. 75 r old male arrives after episode of confusion on waking up at 3am which resolved shortly there-after. This has happened several times before with extensive work-up without any acute cause found though presumed TIA? He is in no distress and looks well. Breathing comfortably. EKG normal. Labs unremarkable other than mild WBC elevation explained by recent steroid dose. He has no neuro deficits and a normal CT. Already on blood thinners for previous stroke like symptoms. He is not interested in staying in hospital and given his history of large work-up in last month seems reasonable to let him go home if he wishes. Stressed PCP follow up. RTED if worsening or other concerns. Did not his cough to him which he states is chronic and the reason kenalog shot by PCP. No infectious symptoms. Impression Primary Impression: Altered mental status Scribe Attestation The scribe's documentation has been prepared under my direction and personally reviewed by me in its entirety. I confirm that the note above accurately reflects all work, treatment, procedures, and medical decision making performed by me. Departure Information Dispostion Home / Self-Care Referrals Julián Heck M.D. (PCP) Patient Instructions ED Confusion, My [facility] Health Problem Qualifiers Primary Impression: Altered mental status Altered mental status type: transient alteration of awareness Qualified Codes : R40.4 - Transient alteration of awareness
[2016-06-09 05:11] LABS: BASO % 0.3 %; BASO ABS # 0.04 K/uL (0-0.2); COMPLETE YES; EOS % 0.3 %; HEMATOCRIT 46.9 % (42-52); IG% 1.6 %; LYMPH % 23.1 %; LYMPH ABS # 2.97 K/uL (1.2-3.4); MEAN CELL VOLUME 91.1 fL (80-100); MEAN CORPUSCULAR HEMOGLOBIN 30.5 pg (25-34); MEAN CORPUSCULAR HGB CONC 33.5 g/dl (32-36); MEAN PLATELET VOLUME 10.1 fL (7.4-10.4); MONO % 8.1 %; NEUT % 66.6 %; PLATELET COUNT 275 K/uL (130-400); RED BLOOD COUNT 5.15 M/uL (4.7-6.1); WHITE BLOOD COUNT 12.88 K/uL (4.8-10.8)
[2016-06-09 05:16] LABS: URINE APPEARANCE CLEAR (CLEAR); URINE BILIRUBIN NEG (NEG); URINE COLOR YELLOW; URINE NITRITE NEG (NEG); URINE SPECIFIC GRAVITY 1.009 (1.000-1.030); UROBILINOGEN NEG (NEG); ZZUR CULT IF INDIC CLEAN CATCH NO
[2016-06-09 05:18] LABS: MANUAL MICROSCOPIC REQUIRED? NO; REVIEW REQ? NO
[2016-06-09 05:30] LABS: ALT/SGPT 24 U/L (12-78); AST/SGOT 12 U/L (15-37); BLOOD UREA NITROGEN 21 mg/dl (7-18); BUN/CREATININE RATIO 18.8 (10-20); CALCIUM 8.9 mg/dl (8.5-10.1); CARBON DIOXIDE 29 mmol/L (21-32); CHLORIDE 104 mmol/L (98-107); GLUCOSE 178 mg/dl (70-99); POTASSIUM 4.5 mmol/L (3.5-5.1); SODIUM 141 mmol/L (136-145)
[2016-06-09 05:35] LABS: ALKALINE PHOSPHATASE 63 U/L (45-117)
--- NOTE | 2016-06-09 06:09 | DIAGNOSTIC IMAGING REPORT ---
CHEST ONE VIEW PORTABLE CLINICAL HISTORY: AMS dyspnea COMPARISON STUDY: 05/08/2016 FINDINGS: Mild stable cardiomegaly. Cardiac pleural reactive changes left base. Lungs appear clear. IMPRESSION: Chronic change. No acute process. Electronically signed by: Kvng Cuellar M.D. 06/09/2016 6:07 AM Dictated Date/Time: 06/09/2016 6:07 AM
[2016-06-09 06:29] VITALS: BP 134/80; PULSE 63; O2SAT 95
[2016-06-09] MEDS ORDERED: CALC1TAB10 PO (06:36)
--- NOTE | 2016-06-09 06:53 | DIAGNOSTIC IMAGING REPORT ---
HEAD CT NONCONTRAST CT DOSE: 537.48 mGy.cm HISTORY: Mental status change. Confusion. AMS TECHNIQUE: Multiaxial CT images of the head were performed without the use of intravenous contrast. Comparison: 05/08/2016 Findings: Chronic and age-related change. No acute intracranial hemorrhage. Ventricular system is midline. There is no evidence for Shift. Impression: Chronic and age-related change. No acute process. Electronically signed by: Kvng Cuellar M.D. 06/09/2016 6:52 AM Dictated Date/Time: 06/09/2016 6:50 AM
[2016-08-10] MEDS ORDERED: GLIM1TAB2 PO (11:55)
[2016-08-10] MEDS ORDERED: APIX1TAB3 PO (11:55)
[2016-08-10] MEDS ORDERED: CYAN10005 PO (11:55)
[2016-08-10] MEDS ORDERED: PRLSR20 PO (11:55)
[2016-08-10] MEDS ORDERED: CHOL2000 PO (11:55)
[2016-11-26] MEDS ORDERED: LNX125 PO (16:27)
[2016-11-26] MEDS ORDERED: PRD10 PO (16:27)
[2016-11-26] MEDS ORDERED: IPRA1AER2 INH (16:27)
== END 2016-06-09 06:48 | disposition home or self-care (01) ==
LOC: EDBD 04:42 → C.EDA 04:44
DX: R41.82 Altered mental status, unspecified (principal); I48.91 Unspecified atrial fibrillation; I10 Essential (primary) hypertension; I48.92 Unspecified atrial flutter; J45.909 Unspecified asthma, uncomplicated; Z86.73 Personal history of transient ischemic attack (TIA), and cerebral infarction without residual deficits; Z79.01 Long term (current) use of anticoagulants; Z79.82 Long term (current) use of aspirin; Z79.84 Long term (current) use of oral hypoglycemic drugs; Z79.899 Other long term (current) drug therapy; Z91.09 Other allergy status, other than to drugs and biological substances; Z87.891 Personal history of nicotine dependence; Z80.9 Family history of malignant neoplasm, unspecified; Z82.49 Family history of ischemic heart disease and other diseases of the circulatory system

== ENCOUNTER → 2016-06-16 | Outpatient (CLI) | payer OTHER ==
[~2016-06-16] MED LIST changes: +APIX1TAB3 PO; -CALC-445; +CALC1TAB10 PO; +CHOL2000 PO; +CYAN10005 PO; +GLIM1TAB2 PO; +IPRA1AER2 INH; +LNX125 PO; +PRD10 PO; +PRLSR20 PO
[2016-06-16 18:15] LABS: BASO % 0.3 %; BASO ABS # 0.03 K/uL (0-0.2); COMPLETE YES; EOS % 0.4 %; HEMATOCRIT 45.6 % (42-52); IG% 0.8 %; LYMPH ABS # 0.92 K/uL (1.2-3.4); MEAN CELL VOLUME 90.3 fL (80-100); MEAN CORPUSCULAR HEMOGLOBIN 30.3 pg (25-34); MEAN CORPUSCULAR HGB CONC 33.6 g/dl (32-36); MEAN PLATELET VOLUME 10.2 fL (7.4-10.4); MONO % 17.1 %; NEUT % 73.4 %; PLATELET COUNT 205 K/uL (130-400); RED BLOOD COUNT 5.05 M/uL (4.7-6.1); WHITE BLOOD COUNT 11.56 K/uL (4.8-10.8)
[2016-06-16 18:35] LABS: URINE APPEARANCE CLOUDY (CLEAR); URINE BILIRUBIN NEG (NEG); URINE COLOR YELLOW; URINE EPITHELIAL CELL AUTO >30 /lpf (0-5); URINE NITRITE NEG (NEG); URINE SPECIFIC GRAVITY 1.026 (1.000-1.030); UROBILINOGEN NEG (NEG); ZZUR CULT IF INDIC CLEAN CATCH NO
[2016-06-16 18:50] LABS: MANUAL MICROSCOPIC REQUIRED? NO; REVIEW REQ? YES
[2016-06-16 19:27] LABS: BLOOD UREA NITROGEN 14 mg/dl (7-18); BUN/CREATININE RATIO 14.1 (10-20); CALCIUM 8.7 mg/dl (8.5-10.1); CARBON DIOXIDE 21 mmol/L (21-32); CHLORIDE 101 mmol/L (98-107); GLUCOSE 96 mg/dl (70-99); POTASSIUM 4.1 mmol/L (3.5-5.1); SODIUM 135 mmol/L (136-145)
[2016-06-17 06:26] LABS: ESTIMATED AVERAGE GLUCOSE 177 mg/dl; HA1C FLAG Normal (Normal)
--- NOTE | 2016-06-20 13:24 | CODING QUERY MEDICAL NECESSITY ---
SUPPORTING DIAGNOSIS NEEDED A supporting diagnosis is required for the test/procedure performed on this patient in order for us to be reimbursed by the patient's insurance. Please provide a supporting diagnosis for the following test/procedure listed below next to the test name along with your signature. *If there is no additional diagnosis for this patient that would support the following test/procedure please document that below next to the test/procedure. Test(s)/Procedure(s) that require a supporting diagnosis: * VITAMIN B-12 LEVEL DIAGNOSIS: * DOS: 06/16/16 Provider Signature: Date: Thank you Bertha Casanova Health Information Management Once completed, please kindly fax back to [phone] For questions please call [phone]
== END | disposition home or self-care (01) ==
LOC: C.LABBC 14:53
PROVIDERS: ATTEND Internal Medicine Geriatric Medicine
DX: I10 Essential (primary) hypertension (principal); E11.9 Type 2 diabetes mellitus without complications; J45.901 Unspecified asthma with (acute) exacerbation; E53.8 Deficiency of other specified B group vitamins

== ENCOUNTER → 2016-07-28 | Outpatient (CLI) | payer OTHER | END | disposition home or self-care (01) | LOC: C.LABSPEC 09:20 | PROVIDERS: ATTEND Urology | DX: R31.9 Hematuria, unspecified (principal); N40.1 Benign prostatic hyperplasia with lower urinary tract symptoms ==

== ENCOUNTER → 2016-08-17 | Day surgery (SDC) | payer OTHER ==
[2016-08-10 11:55] VITALS: BMI 26.0
[~2016-08-17] VITALS: Ht 167.6 cm; Wt 75.0 kg
[~2016-08-17] MED LIST changes: -ELQ25 PO; +LIDOCAINE HCL 2% 2 ML VIAL (20MG/ML) ONE; -NTRSLP4 SL; +PROPOFOL IV EMULSION 10 MG/ML 20 ML VIAL IV ONE
[2016-08-17 09:40] VITALS: Ht 167.6 cm; Wt 75.0 kg
--- NOTE | 2016-08-17 10:20 | Endo History and Physical ---
History & Physical Date of Service: Aug 17, 2016. Chief Complaint: Referring Physician: History of Present Illness 75 yo presenting for colon polyp surveillance Past Medical History Diabetes, Asthma, Hypertension Past Surgical History Hx Cardiac Surgery: No (HEART CATH X 6 STENTS) Hx Internal Defibrillator: No Hx Pacemaker: No Hx Abdominal Surgery: No Hx Post-Op Nausea and Vomiting: No Hx Cancer Surgery: Yes (SKIN CANCER REMOVED) Hx Thoracic Surgery: No Hx Orthopedic: Yes (R WRIST) Hx Urinary Tract Surgery: No Family History Polyp Social History Smoking Status: Former Smoker Hx Substance Use: No Hx Alcohol Use: No Allergies Coded Allergies: NO KNOWN DRUG ALLERGIES (Verified Allergy, Mild, ., 08/17/16) POLLEN (Verified Allergy, Mild, CONGESTION, 08/10/16) Current Medications Reported Home Medications Medications Dose Route/Sig Max Daily Dose Days Date Category Dose Instructions Vitamin D3 (Cholecalciferol) 2,000 Unit Cap 2 Cap PO QAM 08/10/16 Reported Prilosec (Omeprazole) 20 Mg Capcr 20 Mg PO DAILY PRN 08/10/16 Reported Vitamin B-12 (Cyanocobalamin) 1,000 Mcg Tab 1,000 Mcg PO QAM 08/10/16 Reported Glimepiride 1 Mg Tab 1 Tab PO QAM 08/10/16 Reported Eliquis (Apixaban) 5 Mg Tab 5 Mg PO BID 08/10/16 Reported WILL SEE BOAT HOIST OPERATOR HELPER AND GET INSTRUCTION Calcium 1000 + D (Calcium Carbonate-Cholecalcife) 1 Tab Tab 1 Tab PO QAM 06/09/16 Reported Diltiazem Cd (Diltiazem Hcl Coated Beads) 120 Mg Cap 120 Mg PO HS 05/08/16 Reported Plavix (Clopidogrel Bisulfate) 75 Mg Tab 75 Mg PO QAM 05/08/16 Reported WILL RECEIVE INSTRUCTIONS FROM BOAT HOIST OPERATOR HELPER Aspirin Ec (Aspirin) 81 Mg Tab 81 Mg PO BID 06/18/15 Reported Dulera 200/5 Mcg (Mometasone Furoate-Formoterol) 1 Aer Aer 2 Puffs INH BID 06/09/15 Reported Glucophage (Metformin Hcl) 1,000 Mg Tab 1,000 Mg PO BID 06/09/15 Reported Zocor (Simvastatin) 40 Mg Tab 40 Mg PO HS 09/13/12 Reported Montelukast Sodium 10 Mg Tab 10 Mg PO HS 09/13/12 Reported Zestril (Lisinopril) 40 Mg Tab 20 Mg PO HS 09/13/12 Reported Vital Signs Weight (Kilograms): 75 Height (Feet): 5 Height (Inches): 6 Physical Exam General Appearance: + thin Respiratory/Chest: Respiratory effort: no dyspnea Auscultation: breath sounds normal, CTA except as noted Cardiovascular: Apical Impulse: not displaced Heart Auscultation: RRR, normal S1, normal S2 nabs/soft/nt/nd Assessment and Plan proceed with colonoscopy for polyp f/u.
--- NOTE | 2016-08-17 10:46 | Discharge Instructions ---
Endoscopy Patient Instructions Date / Procedure(s) Performed Aug 17, 2016. Colonoscopy Allergy Information Coded Allergies: NO KNOWN DRUG ALLERGIES (Verified Allergy, Mild, ., 08/17/16) POLLEN (Verified Allergy, Mild, CONGESTION, 08/10/16) Discharge Date / Findings Aug 17, 2016. Several small polyps-completely removed Medication Instructions Stopped Medication(s): all medication stopped on Monday Provider Instructions Activity Restrictions - No exercising or heavy lifting for 24 hours. - Do not drink alcohol the day of the procedure. - Do not drive a car or operate machinery until the day after the procedure. - Do not make any important decisions or sign important papers in 24 hours after the procedure. Following Day: - Return to full activity which may include returning to work/school. Diet Start your diet with liquids and light foods (jello, soup, juice, toast). Then eat your usual diet if not nauseated. Treatment For Common After Affects For mild abdominal pain, bloating, or excessive gas: - Rest - Eat lightly - Lie on right side Follow-Up Information Follow-up with Dr. Julián Heck as scheduled Anesthesia Information What You Should Know You have had a procedure that required some medicine to reduce anxiety and discomfort. This treatment is called moderate sedation. After receiving the treatment, you may be sleepy, but you will be able to breathe on your own. The effects of the treatment may last for several hours. Follow these instructions along with Activity/Diet recommendations noted above: * Do NOT do anything where dizziness or clumsiness would be dangerous. * Rest quietly at home today, then you can be up and about tomorrow. * Have a responsible person stay with you the rest of today. * You may have had an I.V. today. If so, you may take the dressing off later today. Recommendations Call your doctor if: * Trouble breathing * Continuous vomiting for more than 24 hours * Temperature above 101 degrees * Severe abdominal pain or bloating * Pain not relieved by pain medicine ordered * There is increased drainage or redness from any incision * A large amount of rectal bleeding greater than 2-3 tablespoons. (If you had a polyp/s removed or have hemorrhoids, a small amount of blood - from the rectum is to be expected.) * You have any unanswered questions or concerns. IN THE EVENT OF A SERIOUS EMERGENCY, GO TO THE NEAREST EMERGENCY ROOM Your discharge instructions were prepared by provider Chilo Paul. Patient Instructions Signature Page Jose J Zurita Patient (or Guardian) Signature/Date: I have read and understand the instructions given to me by my caregivers. Caregiver/RN/Doctor Signature/Date: The above-named patient and/or guardian has received patient instructions on this date. + Original Patient Signature Page (only) stays with chart. Please make copy for patient.
--- NOTE | 2016-08-17 10:49 | GI REPORT ---
Procedure Date: 08/17/2016 10:01 AM Procedure: Colonoscopy Indications: High risk colon cancer surveillance: Personal history of colonic polyps Medicines: General Anesthesia Complications: No immediate complications. Estimated blood loss: None. Estimated Blood Loss: Estimated blood loss: none. Procedure: Pre-Anesthesia Assessment: - Pre-Anesthesia Assessment: - Prior to the procedure, a History and Physical was performed, and patient medications, allergies and sensitivities were reviewed. The patient's tolerance of previous anesthesia was reviewed. Please see Novaliq for complete details. - The risks and benefits of the procedure and the sedation options and risks were discussed with the patient. All questions were answered and informed consent was obtained. - Patient identification and proposed procedure were verified prior to the procedure by the physician and the nurse. The procedure was verified in the pre-procedure area in the procedure room. After obtaining informed consent, the endoscope was passed carefully and meticuously under direct vision and only advanced when the lumen was clearly identified, C02 insuflation was utilized throughout the entirity of the procedure. Throughout the procedure, the patient's blood pressure, pulse, and oxygen saturations were monitored continuously. After I obtained informed consent, the scope was passed under direct vision. Throughout the procedure, the patient's blood pressure, pulse, and oxygen saturations were monitored continuously. The scope was introduced through the anus and advanced to the cecum, identified by appendiceal orifice and ileocecal valve. The colonoscopy was performed without difficulty. The patient tolerated the procedure well. The quality of the bowel preparation was good. Findings: Two sessile polyps were found in the ascending colon. The polyps were 3 to 6 mm in size. These polyps were removed with a cold snare. Resection and retrieval were complete. A 4 mm polyp was found in the descending colon. The polyp was sessile. The polyp was removed with a cold snare. Resection and retrieval were complete. A 3 mm polyp was found in the sigmoid colon. The polyp was sessile. The polyp was removed with a jumbo cold forceps. Resection and retrieval were complete. A tattoo was seen in the sigmoid colon. The tattoo site appeared normal. Multiple small-mouthed diverticula were found in the sigmoid colon. Internal hemorrhoids were found during retroflexion. The exam was otherwise without abnormality on direct and retroflexion views. Impression: - Two 3 to 6 mm polyps in the ascending colon, removed with a cold snare. Resected and retrieved. - One 4 mm polyp in the descending colon, removed with a cold snare. Resected and retrieved. - One 3 mm polyp in the sigmoid colon, removed with a jumbo cold forceps. Resected and retrieved. - A tattoo was seen in the sigmoid colon. The tattoo site appeared normal. - Diverticulosis in the sigmoid colon. - Internal hemorrhoids. - The examination was otherwise normal on direct and retroflexion views. Recommendation: - Discharge patient to home (with escort). - Repeat colonoscopy in 3 years for surveillance. - Return to referring physician as previously scheduled. Chilo Paul MD 08/17/2016 10:49:04 AM This report has been signed electronically. Note Initiated On: 08/17/2016 10:01 AM I attest to the content of the Intraoperative Record and orders documented therein, exceptions below
[2016-08-17 11:21] VITALS: BP 134/81; PULSE 52; O2SAT 95
--- NOTE | 2016-08-17 14:28 | Anesthesiology Progress Note ---
Anesthesia Post Op Note Date & Time Aug 17, 2016 at 14:27 Vital Signs Pain Intensity: 0 Vital Signs Past 12 Hours Date Time Temp Pulse Resp B/P Pulse Ox O2 Delivery O2 Flow Rate FiO2 08/17/16 11:21 52 18 134/81 95 Room Air 08/17/16 11:16 52 18 135/62 95 Room Air 08/17/16 10:56 59 18 112/62 95 Room Air 08/17/16 10:41 61 12 111/62 95 Room Air 08/17/16 09:51 36.7 60 20 136/75 99 Room Air Notes Mental Status: alert / awake / arousable, participated in evaluation Pt Amnestic to Procedure: Yes Nausea / Vomiting: adequately controlled Pain: adequately controlled Airway Patency, RR, SpO2: stable & adequate BP & HR: stable & adequate Hydration State: stable & adequate Anesthetic Complications: no major complications apparent
== END | disposition home or self-care (01) ==
LOC: C.GI 09:04
PROVIDERS: ATTEND Internal Medicine
DX: Z12.11 Encounter for screening for malignant neoplasm of colon (principal); Z86.010 Personal history of colon polyps; D12.4 Benign neoplasm of descending colon; K63.5 Polyp of colon; K64.8 Other hemorrhoids; K57.30 Diverticulosis of large intestine without perforation or abscess without bleeding; J45.909 Unspecified asthma, uncomplicated; I25.10 Atherosclerotic heart disease of native coronary artery without angina pectoris; E11.9 Type 2 diabetes mellitus without complications; Z86.73 Personal history of transient ischemic attack (TIA), and cerebral infarction without residual deficits

== ENCOUNTER → 2016-09-26 | Outpatient (CLI) | payer OTHER ==
[~2016-09-26] MED LIST changes: -LIDOCAINE HCL 2% 2 ML VIAL (20MG/ML) ONE; -PROPOFOL IV EMULSION 10 MG/ML 20 ML VIAL IV ONE
--- NOTE | 2016-09-26 13:09 | DIAGNOSTIC IMAGING REPORT ---
RENAL ULTRASOUND CLINICAL HISTORY: Urinary obstruction. Hematuria. COMPARISON STUDY: Renal ultrasound July 29, 2013. TECHNIQUE: Sonography of the kidneys and the urinary bladder was performed. FINDINGS: The right kidney measures 10.9 x 4.9 x 5 cm and the left measures 11.2 x 4.7 x 5 cm. A few right renal cysts measure up to 1.4 cm. There is mild renal cortical thinning and increased renal echogenicity. There is no hydronephrosis. Both ureteral jets were identified. Note is made of a 3.1 cm infrarenal abdominal aortic aneurysm. IMPRESSION: 1. No hydronephrosis. 2. Mild renal cortical thinning and increased renal echogenicity. 3. 3.1 cm infrarenal abdominal aortic aneurysm. Electronically signed by: Kevin Hernández M.D. 09/26/2016 1:08 PM Dictated Date/Time: 09/26/2016 1:06 PM
== END | disposition home or self-care (01) ==
LOC: C.ULTRBC 11:49
PROVIDERS: ATTEND Urology
DX: R31.9 Hematuria, unspecified (principal); N40.1 Benign prostatic hyperplasia with lower urinary tract symptoms; I71.4 Abdominal aortic aneurysm, without rupture

== ENCOUNTER → 2016-10-18 | Outpatient (CLI) | payer OTHER ==
[2016-10-18 17:29] LABS: BASO % 0.5 %; BASO ABS # 0.05 K/uL (0-0.2); COMPLETE YES; EOS % 2.9 %; HEMATOCRIT 46.9 % (42-52); IG% 0.7 %; LYMPH % 15.1 %; LYMPH ABS # 1.46 K/uL (1.2-3.4); MEAN CELL VOLUME 92.3 fL (80-100); MEAN CORPUSCULAR HEMOGLOBIN 29.7 pg (25-34); MEAN CORPUSCULAR HGB CONC 32.2 g/dl (32-36); MEAN PLATELET VOLUME 10.6 fL (7.4-10.4); MONO % 10.3 %; NEUT % 70.5 %; PLATELET COUNT 188 K/uL (130-400); RED BLOOD COUNT 5.08 M/uL (4.7-6.1); WHITE BLOOD COUNT 9.68 K/uL (4.8-10.8)
[2016-10-18 18:18] LABS: LYME DISEASE AB IGG NEG (NEG); LYME DISEASE AB IGM NEG (NEG)
[2016-10-18 18:22] LABS: BLOOD UREA NITROGEN 15 mg/dl (7-18); CARBON DIOXIDE 26 mmol/L (21-32); CHLORIDE 107 mmol/L (98-107); CHOLESTEROL 165 mg/dl (0-200); GLUCOSE 99 mg/dl (70-99); POTASSIUM 4.3 mmol/L (3.5-5.1); SODIUM 141 mmol/L (136-145)
[2016-10-18 18:28] LABS: HDL CHOLESTEROL 55 mg/dl; LDL CHOLESTEROL CALCULATED 76 mg/dl; TRIGLYCERIDES 168 mg/dl (0-150); VERY LOW DENSITY LIPOPROT CALC 34 mg/dl
[2016-10-18 19:00] LABS: CALCIUM 9.7 mg/dl (8.5-10.1)
[2016-10-19 05:55] LABS: ESTIMATED AVERAGE GLUCOSE 160 mg/dl; HA1C FLAG Normal (Normal)
== END | disposition home or self-care (01) ==
LOC: C.LABPBG 11:19
PROVIDERS: ATTEND Internal Medicine Geriatric Medicine
DX: Z00.00 Encounter for general adult medical examination without abnormal findings (principal); I48.0 Paroxysmal atrial fibrillation; J45.909 Unspecified asthma, uncomplicated; E11.9 Type 2 diabetes mellitus without complications; E78.5 Hyperlipidemia, unspecified; Z79.01 Long term (current) use of anticoagulants; E55.9 Vitamin D deficiency, unspecified; I25.10 Atherosclerotic heart disease of native coronary artery without angina pectoris; E53.8 Deficiency of other specified B group vitamins

== ENCOUNTER → 2016-10-25 | Outpatient (CLI) | payer OTHER ==
--- NOTE | 2016-11-03 12:22 | CODING QUERY MEDICAL NECESSITY ---
SUPPORTING DIAGNOSIS NEEDED A supporting diagnosis is required for the test/procedure performed on this patient in order for us to be reimbursed by the patient's insurance. Please provide a supporting diagnosis for the following test/procedure listed below next to the test name along with your signature. *If there is no additional diagnosis for this patient that would support the following test/procedure please document that below next to the test/procedure. Test(s)/Procedure(s) that require a supporting diagnosis: * UNATTEND SLEEP W/ RESP EFFORT DIAGNOSIS: Provider Signature: Date: Thank you Shannon Null [employer] Information Management Once completed, please kindly fax back to [phone] For questions please call [phone]
--- NOTE | 2016-11-04 09:42 | Sleep Study ---
Sleep Study Report Date of Service: 10/25/2016 Sleep Study Report Clinical Data: The patient is a 76-year-old male referred by Dr. Heck for evaluation of feelings of fatigue and excessive daytime sleepiness. He also has hypertension and cardiac issues. On the evening of October 25, 2016 a home sleep apnea test was performed using a [employer] type 3 monitor. Recording results: Total recording time was 10 hours. Patient estimated sleep time and patient monitoring time was 8.7 hours. Respiratory data: There was no evidence of clinically significant sleep apnea seen. The RDI was 0.6. There are 2 apneic episodes and 3 hypopneas episodes recorded. The longest respiratory event recorded was 40 seconds. Oximetry data: Oxygen desaturation was seen. Oxygen han was 76 percent. Mean saturation was 90 percent. Time below 89 percent was 67 minutes. However this may have been related to malfunction of the pulse oximeter for 3.5 hours of the test as indicated in the maintenance shop technician's comments. Heart rate data: Heart rates ranged from 36 to 63 beats per minute. Snoring data: Snoring was recorded intermittently throughout the entire night. Licensed Practical Nurse Clinic Nurse's comments: The patient stated on return to the equipment that the pulse oximeter dislodged during part of the night. There were times totaling 3.5 hours with a pulse oximetry did not appear to be working correctly. This was when oxygen desaturation was seen. Therefore the episodes of desaturation may be artifactual. Impression: 76-year-old male with no evidence of significant sleep apnea on his home sleep apnea test. There were several episodes of oxygen desaturation seen which may have been related to malfunction/dislodgement of the pulse oximeter. It is felt that these may be artifactual. Clinical correlation is needed. Copies To 1: Julián Heck M.D.
--- NOTE | 2016-11-24 10:26 | POLYSOMNOGRAPH REPORT ---
CLINICAL DATA: A 76-year-old male with BMI of 24, referred by Dr. Julián Heck with history of daytime hypersomnolence and possible sleep apnea. On the evening of a home sleep apnea test was performed using a [email or web address] type 3 monitor. RECORDING RESULTS: Total recording time was 10 hours. The patient's monitoring time and estimated sleep time was 8.7 hours. RESPIRATORY DATA: There was no evidence of clinically significant sleep apnea seen. The KIMBERLY was 0.6. There were 1 mixed and 1 central apneic episode and 3 hypopneic episodes recorded. The longest duration of apnea was 40 seconds. OXIMETRY DATA: Nocturnal hypoxemia was seen. Oxygen han was 76%. Mean saturation was 90%. HEART RATE DATA: Heart rates ranged from 36-63 beats per minute. SNORING DATA: Snoring was recorded through the night. POLICY ANALYST'S COMMENTS: The patient stated that the pulse oximeter fell off 4 times during the night. There was a portion of the test for 3.5 hours where the pulse ox was not working correctly. His breathing remained steady, and there were no respiratory events seen. When his pulse ox did work the rest of the night, his saturations remained around 90%. IMPRESSION: No evidence of clinically significant sleep apnea/hypopnea or sustained nocturnal hypoxemia to explain this patient's symptoms. RECOMMENDATIONS: The patient should continue to practice good sleep hygiene.
== END | disposition home or self-care (01) ==
LOC: C.NEUR 09:48
PROVIDERS: ATTEND Internal Medicine Geriatric Medicine
DX: R40.0 Somnolence (principal)

== ENCOUNTER 2016-11-25 07:51 | Observation (INO) | payer OTHER ==
[~2016-11-25] VITALS: Ht 177.8 cm; Wt 72.3 kg
[2016-11-25] VITALS (9 sets, daily range): BP systolic 121–149; BP diastolic 65–79; PULSE 62–115; TEMP 36.4–36.7; O2SAT 91–95; Ht 177.8 cm; Wt 72.3 kg
[~2016-11-25 07:51] MED LIST changes: -IPRA1AER2 INH; -LNX125 PO; -PRD10 PO
[2016-11-25] MEDS ORDERED: ALBUT/IPRATROP 3MG/0.5MG NEB 3 ML VIAL INH STA (08:09)
[2016-11-25] MEDS ORDERED: METHYLPREDNISOLONE 125 MG VIAL IV STA (08:09)
[2016-11-25 08:25] LABS: BASO % 0.7 %; BASO ABS # 0.07 K/uL (0-0.2); COMPLETE YES; EOS % 8.6 %; HEMATOCRIT 44.7 % (42-52); IG% 0.4 %; LYMPH % 17.3 %; LYMPH ABS # 1.81 K/uL (1.2-3.4); MEAN CELL VOLUME 90.9 fL (80-100); MEAN CORPUSCULAR HEMOGLOBIN 30.7 pg (25-34); MEAN CORPUSCULAR HGB CONC 33.8 g/dl (32-36); MONO % 7.6 %; NEUT % 65.4 %; PLATELET COUNT 221 K/uL (130-400); RED BLOOD COUNT 4.92 M/uL (4.7-6.1); WHITE BLOOD COUNT 10.46 K/uL (4.8-10.8)
[2016-11-25 08:32] LABS: PROTHROMBIN TIME (PATIENT) 10.7 SECONDS (9.0-12.0)
--- NOTE | 2016-11-25 08:35 | EMERGENCY ROOM VISIT NOTE ---
History Report prepared by Damien: Sendy Dai Under the Supervision of: Dr. Glenn Epstein M.D. First contact with patient: 07:59 Chief Complaint: CONFUSION Stated Complaint: STROKE History of Present Illness The patient is a 76 year old male who presents to the Emergency Room for further evaluation of worsening confusion that was first noticed by the patient' s 5 hours ago, around 0300. The patient's states that the patient woke her up from sleep this morning and kept asking her the same questions. She states that the patient has experienced similar symptoms in the past but the cause of the symptoms was never determined. The patient denies being in any pain , including abdominal pain. He states that he feels well. The patient's states that the patient's blood sugar was 174 this morning which is high for him. The patient's states that the patient felt well up until this morning. The patient is on nasal cannula oxygen currently but he is not typically on oxygen at home. The patient was reported to be hypoxic with oxygen saturations in the 80s on room air in triage. Source of History: patient, spouse/significant other () Onset: 5 hours ago, around 0300 Position: other (global) Quality: other (confusion) Timing: worsening Associated Symptoms: No abdominal pain Review of Systems See HPI for pertinent positives & negatives. A total of 10 systems reviewed and were otherwise negative. Past Medical & Surgical Medical Problems: (1) Afib (2) ANTICOAGULANTS,LT,CURRENT USE (3) Asthma (4) Atrial flutter (5) Diabetes (6) History of - atrial fibrillation (7) HYPERTENSION NOS (8) Hypoxia (9) Pneumonia (10) TIA (transient ischemic attack) Family History Cancer Heart disease Hypertension Social History Smoking Status: Former Smoker Alcohol Use: none Drug Use: none Marital Status: Housing Status: lives with family Occupation Status: employed Current/Historical Medications Scheduled Apixaban (Eliquis), 5 MG PO BID Aspirin (Aspirin Ec), 81 MG PO BID Calcium Carbonate-Cholecalcife (Calcium 1000 + D), 1 TAB PO QAM Cholecalciferol (Vitamin D3), 2 CAP PO QAM Cyanocobalamin (Vitamin B-12), 1,000 MCG PO QAM Diltiazem Hcl Coated Beads (Diltiazem Cd), 120 MG PO HS Glimepiride (Glimepiride), 1 TAB PO QAM Lisinopril (Zestril), 20 MG PO HS Metformin Hcl (Glucophage), 1,000 MG PO BID Mometasone Furoate-Formoterol (Dulera 200/5 Mcg), 2 PUFFS INH BID Montelukast Sodium (Montelukast Sodium), 10 MG PO HS Simvastatin (Zocor), 40 MG PO HS Allergies Coded Allergies: NO KNOWN DRUG ALLERGIES (Verified Allergy, Mild, ., 08/17/16) POLLEN (Verified Allergy, Mild, CONGESTION, 08/10/16) Physical Exam Vital Signs Date Time Temp Pulse Resp B/P (MAP) Pulse Ox O2 Delivery O2 Flow Rate FiO2 11/25/16 09:44 90 20 164/94 95 Nasal Cannula 2.0 11/25/16 09:43 95 11/25/16 09:30 95 Nasal Cannula 2.0 11/25/16 09:08 133 11/25/16 09:07 81 11/25/16 09:01 102 11/25/16 08:51 78 20 105/72 98 Nasal Cannula 2.0 11/25/16 08:26 74 20 154/82 96 Nasal Cannula 2.0 11/25/16 08:14 95 Nasal Cannula 2.0 11/25/16 08:13 95 Nasal Cannula 2.0 11/25/16 08:08 70 11/25/16 07:56 36.8 83 20 151/80 88 Room Air Physical Exam GENERAL: Patient is a healthy-appearing well-nourished male HEAD: Normocephalic atraumatic EYES: Ocular movements intact pupils equal and react to light OROPHARYNX mucous membranes are moist no exudates present no erythema or edema present NECK: Supple no nuchal rigidity CHEST: Good equal expansion LUNGS: Bilateral wheezing. CARDIAC: Normal S1 and S2 ABDOMEN: Soft nontender no guarding BACK: No CVA tenderness EXTREMITIES: No pain upon palpation normal muscle strength in all groups no clubbing cyanosis or edema NEURO: Patient is following commands and answering questions appropriately. Alert and pleasantly confused. Cranial Nerves 2-12 grossly intact Medical Decision & Procedures ER Provider Diagnostic Interpretation: Radiology results as stated below per my review and radiologist interpretation: CHEST ONE VIEW PORTABLE FINDINGS: The patient is slightly [place] rotated, accounting for the appearance of added soft tissue in the right paratracheal region. Stable enlargement of the cardiac silhouette. Mildly increased prominence of pulmonary vasculature. Minimal hazy bibasilar opacities. No significant effusion or pneumothorax. Osseous structures and upper abdomen normal. IMPRESSION: 1. Stable cardiomegaly with evidence of volume overload, new from prior. 2. Minimal basilar atelectasis or subtle developing pulmonary edema. Electronically signed by: Sekou Milan M.D. 11/25/2016 8:37 AM Dictated Date/Time: 11/25/2016 8:35 AM HEAD WITHOUT CONTRAST (CT) Findings: The paranasal sinuses and mastoid air cells are clear. The calvarium and skull base are intact. The ventricles and sulci are within normal limits. There is no mass, hematoma, midline shift, or acute infarct. Age-related atrophy and chronic small vessel change Impression: No acute process. Age-related change. The above report was generated using voice recognition software. It may contain grammatical, syntax or spelling errors. Electronically signed by: Kvng Cuellar M.D. 11/25/2016 8:46 AM Dictated Date/Time: 11/25/2016 8:44 AM Laboratory Results 11/25/16 08:05 Red Blood Count 4.92, Mean Corpuscular Volume 90.9, Mean Corpuscular Hemoglobin 30.7, Mean Corpuscular Hemoglobin Concent 33.8, Mean Platelet Volume 10.0, Neutrophils (%) (Auto) 65.4, Lymphocytes (%) (Auto) 17.3, Monocytes (%) (Auto) 7.6, Eosinophils (%) (Auto) 8.6, Basophils (%) (Auto) 0.7, Neutrophils # (Auto) 6.85, Lymphocytes # (Auto) 1.81, Monocytes # (Auto) 0.79, Eosinophils # (Auto) 0.90, Basophils # (Auto) 0.07 11/25/16 08:05 Test 11/25/16 08:05 11/25/16 10:06 White Blood Count 10.46 K/uL (4.8-10.8) Red Blood Count 4.92 M/uL (4.7-6.1) Hemoglobin 15.1 g/dL (14.0-18.0) Hematocrit 44.7 % (42-52) Mean Corpuscular Volume 90.9 fL (80-100) Mean Corpuscular Hemoglobin 30.7 pg (25-34) Mean Corpuscular Hemoglobin Concent 33.8 g/dl (32-36) Platelet Count 221 K/uL (130-400) Mean Platelet Volume 10.0 fL (7.4-10.4) Neutrophils (%) (Auto) 65.4 % Lymphocytes (%) (Auto) 17.3 % Monocytes (%) (Auto) 7.6 % Eosinophils (%) (Auto) 8.6 % Basophils (%) (Auto) 0.7 % Neutrophils # (Auto) 6.85 K/uL (1.4-6.5) Lymphocytes # (Auto) 1.81 K/uL (1.2-3.4) Monocytes # (Auto) 0.79 K/uL (0.11-0.59) Eosinophils # (Auto) 0.90 K/uL (0-0.5) Basophils # (Auto) 0.07 K/uL (0-0.2) RDW Standard Deviation 54.6 fL (36.4-46.3) RDW Coefficient of Variation 16.6 % (11.5-14.5) Immature Granulocyte % (Auto) 0.4 % Immature Granulocyte # (Auto) 0.04 K/uL (0.00-0.02) Prothrombin Time 10.7 SECONDS (9.0-12.0) Prothromb Time International Ratio 1.0 (0.9-1.1) Anion Gap 8.0 mmol/L (3-11) Estimated GFR () 85.0 Estimated GFR (Non- 73.3 BUN/Creatinine Ratio 10.8 (10-20) Calcium Level 9.7 mg/dl (8.5-10.1) Total Bilirubin 0.4 mg/dl (0.2-1) Direct Bilirubin < 0.1 mg/dl (0-0.2) Aspartate Amino Transf (AST/SGOT) 15 U/L (15-37) Alanine Aminotransferase (ALT/SGPT) 19 U/L (12-78) Alkaline Phosphatase 62 U/L (45-117) Total Creatine Kinase 78 U/L (39-308) Creatine Kinase MB 2.1 ng/ml (0.5-3.6) Creatine Kinase MB Ratio 2.7 (0-3.0) Troponin I < 0.015 ng/ml (0-0.045) Total Protein 7.6 gm/dl (6.4-8.2) Albumin 3.7 gm/dl (3.4-5.0) Thyroid Stimulating Hormone (TSH) 5.790 uIu/ml (0.300-4.500) Urine Color YELLOW Urine Appearance CLEAR (CLEAR) Urine pH 5.0 (4.5-7.5) Urine Specific Mercedes 1.021 (1.000-1.030) Urine Protein 1+ (NEG) Urine Glucose (UA) TRACE (NEG) Urine Ketones NEG (NEG) Urine Occult Blood TRACE (NEG) Urine Nitrite NEG (NEG) Urine Bilirubin NEG (NEG) Urine Urobilinogen NEG (NEG) Urine Leukocyte Esterase NEG (NEG) Urine WBC (Auto) 1-5 /hpf (0-5) Urine RBC (Auto) 0-4 /hpf (0-4) Urine Hyaline Casts (Auto) 1-5 /lpf (0-5) Urine Epithelial Cells (Auto) 5-10 /lpf (0-5) Urine Bacteria (Auto) NEG (NEG) Labs reviewed by ED physician. Medications Administered Medications (Trade) Dose Ordered Sig/Gopi Route Start Time Stop Time Status Last Admin Dose Admin Albuterol/ Ipratropium (Duoneb) 12 ml ONE STAT INH 11/25/16 08:09 11/25/16 08:13 DC 11/25/16 09:46 12 ML Methylprednisolone Sodium Succinate (Solu-Medrol IV) 125 mg NOW STAT IV 11/25/16 08:09 11/25/16 08:13 DC 11/25/16 08:51 125 MG ECG Indication: altered mental status Rate (beats per minute): 71 Rhythm: normal sinus Findings: no acute ischemic change, no ectopy ED Course 0804: Past medical records reviewed. The patient was evaluated in room C3. A complete history and physical examination was performed. 0809: Ordered Solu-Medrol 125 mg IV, DuoNeb 12 ml INH 0901: The nurse informed me that the patient is intermittently experiencing atrial fibrillation/flutter. 0918: I discussed the patient's case with Dr. Raymundo of the [facility], he has agreed to evaluate the patient for further management and care. 0948: Upon reexamination the patient is resting comfortably. I discussed results and treatment plan with the patient and his . They verbalize agreement and understanding. I spoke with Dr. Raymundo from the [facility]. The patient will be evaluated for further management. Medical Decision Differential diagnosis: Etiologies such as metabolic, infection, hypo/hyperglycemia, electrolyte abnormalities, cardiac sources, intracerebral event, toxicologic, neurologic, as well as others were entertained. This is a 76-year-old male who presents emergency department hypoxic. Because the patient is hypoxic he was started on an hour-long breathing treatment and started on Solu-Medrol. I believe the patient is confused due to his hypoxia. I did discuss the case with the hospitalist service who agreed to admit the patient. Patient was in agreement with the treatment plan. Head Trauma GCS Score: 14 Consults Time Called: 913 Consulting Physician: [place] Raym[place] [facility] [place] Call: [phone] I discussed the patient's case with Dr. Raymundo of the [facility], he has agreed to evaluate the patient for further management and care. Impression Primary Impression: Altered mental status Additional Impression: COPD exacerbation Scribe Attestation The scribe's documentation has been prepared under my direction and personally reviewed by me in its entirety. I confirm that the note above accurately reflects all work, treatment, procedures, and medical decision making performed by me. Departure Information Dispostion Being Evaluated By Hospitalist Referrals No Doctor, Assigned (PCP) Patient Instructions My [facility] Health Problem Qualifiers Primary Impression: Altered mental status Altered mental status type: unspecified Qualified Codes: R41.82 - Altered mental status, unspecified
--- NOTE | 2016-11-25 08:38 | DIAGNOSTIC IMAGING REPORT ---
CHEST ONE VIEW PORTABLE CLINICAL HISTORY: 76 years-old Male presenting with Pt c/o wheezing . TECHNIQUE: Portable upright AP view of the chest was obtained. COMPARISON: 06/09/2016. FINDINGS: The patient is slightly FREN[place] rotated, accounting for the appearance of added soft tissue in the right paratracheal region. Stable enlargement of the cardiac silhouette. Mildly increased prominence of pulmonary vasculature. Minimal hazy bibasilar opacities. No significant effusion or pneumothorax. Osseous structures and upper abdomen normal. IMPRESSION: 1. Stable cardiomegaly with evidence of volume overload, new from prior. 2. Minimal basilar atelectasis or subtle developing pulmonary edema. Electronically signed by: Sekou Milan M.D. 11/25/2016 8:37 AM Dictated Date/Time: 11/25/2016 8:35 AM
[2016-11-25 08:44] LABS: ALT/SGPT 19 U/L (12-78); AST/SGOT 15 U/L (15-37); BLOOD UREA NITROGEN 11 mg/dl (7-18); BUN/CREATININE RATIO 10.8 (10-20); CALCIUM 9.7 mg/dl (8.5-10.1); CARBON DIOXIDE 25 mmol/L (21-32); CHLORIDE 106 mmol/L (98-107); GLUCOSE 170 mg/dl (70-99); POTASSIUM 4.1 mmol/L (3.5-5.1); SODIUM 139 mmol/L (136-145)
--- NOTE | 2016-11-25 08:47 | DIAGNOSTIC IMAGING REPORT ---
HEAD WITHOUT CONTRAST (CT) CT DOSE: 537.48 mGy.cm HISTORY: Mental status change Pt c/o AMS TECHNIQUE: Multiaxial CT images of the head were performed without the use of intravenous contrast. A dose lowering technique was utilized adhering to the principles of ALARA. Comparison: 06/09/2016 Findings: The paranasal sinuses and mastoid air cells are clear. The calvarium and skull base are intact. The ventricles and sulci are within normal limits. There is no mass, hematoma, midline shift, or acute infarct. Age-related atrophy and chronic small vessel change Impression: No acute process. Age-related change. The above report was generated using voice recognition software. It may contain grammatical, syntax or spelling errors. Electronically signed by: Kvng Cuellar M.D. 11/25/2016 8:46 AM Dictated Date/Time: 11/25/2016 8:44 AM
[2016-11-25 08:54] LABS: ALKALINE PHOSPHATASE 62 U/L (45-117); CKMB/CK RATIO 2.7 (0-3.0)
[2016-11-25] MEDS ORDERED: NITROGLYCERIN 0.4 MG SL PER TAB CHARGE SL PRN (10:00)
[2016-11-25] MEDS ORDERED: ACETAMINOPHEN 325 MG TAB PO PRN (10:00)
[2016-11-25] MEDS ORDERED: MAGNESIUM HYDROXIDE SUSP 30 ML UDC PO PRN (10:00)
[2016-11-25] MEDS ORDERED: ALUMINUM/MAGNESIUM/SIMETH (MAALOX MAX) 30 ML UDC PO PRN (10:00)
[2016-11-25] MEDS ORDERED: POLYETHYLENE (MIRALAX) 17 GM PACK PO PRN (10:00)
[2016-11-25] MEDS ORDERED: ONDANSETRON INJ 2 MG/ML 2 ML VIAL IV PRN (10:00)
[2016-11-25 10:21] LABS: URINE APPEARANCE CLEAR (CLEAR); URINE BILIRUBIN NEG (NEG); URINE COLOR YELLOW; URINE NITRITE NEG (NEG); URINE SPECIFIC GRAVITY 1.021 (1.000-1.030); UROBILINOGEN NEG (NEG); ZZUR CULT IF INDIC CLEAN CATCH NO
[2016-11-25 10:24] LABS: MANUAL MICROSCOPIC REQUIRED? NO; REVIEW REQ? NO
--- NOTE | 2016-11-25 10:38 | History and Physical ---
History & Physical Date & Time of Service: Nov 25, 2016 at 10:08 Chief Complaint: Stroke Primary Care Physician: Julián Heck M.D. History of Present Illness Source: patient, family, clinic records, hospital records Patient is a pleasant 76 y/o male, with PMHx of paroxysmal a.fib, T2DM, dyslipidemia, HTN, h/o CVA/TIAs, and asthma, who presented to the ED because of confusion beginning around 0300. According to the , the patient woke up in the middle of the night and asked if she was OK. He then pointed to the ceiling fan and hallway, and tried to speak, but could not express his words. When asking the patient why he is present today, he states he is unsure and denies any complaints. Patient is oriented to person/place, but disoriented to day/ year. When asking if patient normally knows the year/date, she states, "I think he does." denies any slurred speech, facial droop, or motor weakness. Patient ambulated today without any acute issues. He denies any numbness/tingling, vision changes, headaches, or weakness. Speech is fluent and appropriate. Per , symptoms have not completely resolved; a short while ago he pointed to the hallway, but again could not express his words. Patient states he has been in his normal state of health recently. 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 Patient denies any fever, chills, sweats, lightheadedness, dizziness, vision changes, CP, palpitations, edema, SOB, wheezing, abdominal pain, nausea, vomiting, diarrhea, urinary symptoms, melena, numbness/tingling, weakness, muscle/joint pain, anxiety/depression, active bleeding, or new skin discoloration/changes. Patient was admitted to [facility] in 05/2016 due to similar symptoms. At that time, patient had an extensive workup of head CT, brain MRI, MRA, carotid US, and ECHO , all of which were unremarkable. He was discharge to home with symptoms presumed to be a TIA. According to the , patient has presented to the ED after May multiple times due to similar symptoms, but discharged to home from ED. Symptoms only occur during the night when patient is quickly woken up. Per records, patient has seen Dr. Stallings in 2014 for "memory loss." states patient has not seen neurology recently, but he has been told that he needs to because of frequently occurring events, but no one has set referral up for patient- will consult here due to frequently occurring events and no f/u. In ED, patient was hypoxic on RA at 88%. He was treated w/ IV Solu Medrol 125 mg and a DuoNeb treatment. He is able to speak full sentences w/ no SOB. Patient does have a significant h/o asthma. He take Dulera at home. He follows w / Dr. Cuevas. He recently had PFTs outpatient- he follows up December 06. Additionally, he had a sleep study for questionable EARLENE, but did not need supplemental O2. He has non-worsening, chronic non-productive cough. No fever/ chills, body aches, weakness, fatigue. Past Medical/Surgical History Medical Problems: Paroxysmal a.fib T2DM Dyslipidemia HTN h/o CVA/TIAs Asthma Family History Cancer Heart disease Hypertension Social History Smoking Status: Former Smoker Drug Use: none Marital Status: Housing status: lives with family Occupational Status: employed Immunizations History of Influenza Vaccine: Yes History of Tetanus Vaccine?: No History of Pneumococcal: Yes History of Hepatitis B Vaccine: No Multi-Drug Resistant Organisms History of MDRO: No Allergies Coded Allergies: NO KNOWN DRUG ALLERGIES (Verified Allergy, Mild, ., 08/17/16) POLLEN (Verified Allergy, Mild, CONGESTION, 08/10/16) Home Medications Scheduled Apixaban (Eliquis), 5 MG PO BID Aspirin (Aspirin Ec), 81 MG PO BID Calcium Carbonate-Cholecalcife (Calcium 1000 + D), 1 TAB PO QAM Cholecalciferol (Vitamin D3), 2 CAP PO QAM Cyanocobalamin (Vitamin B-12), 1,000 MCG PO QAM Diltiazem Hcl Coated Beads (Diltiazem Cd), 120 MG PO HS Glimepiride (Glimepiride), 1 TAB PO QAM Lisinopril (Zestril), 20 MG PO HS Metformin Hcl (Glucophage), 1,000 MG PO BID Mometasone Furoate-Formoterol (Dulera 200/5 Mcg), 2 PUFFS INH BID Montelukast Sodium (Montelukast Sodium), 10 MG PO HS Simvastatin (Zocor), 40 MG PO HS Physical Exam Vital Signs Date Time Temp Pulse Resp B/P (MAP) Pulse Ox O2 Delivery O2 Flow Rate FiO2 11/25/16 09:44 90 20 164/94 95 Nasal Cannula 2.0 11/25/16 09:43 95 11/25/16 09:30 95 Nasal Cannula 2.0 11/25/16 09:08 133 11/25/16 09:07 81 11/25/16 09:01 102 11/25/16 08:51 78 20 105/72 98 Nasal Cannula 2.0 11/25/16 08:26 74 20 154/82 96 Nasal Cannula 2.0 11/25/16 08:14 95 Nasal Cannula 2.0 11/25/16 08:13 95 Nasal Cannula 2.0 11/25/16 08:08 70 11/25/16 07:56 36.8 83 20 151/80 88 Room Air General Appearance: no apparent distress, + pertinent finding (2L O2 NC) Head: normocephalic, atraumatic Eyes: PERRL ENT: hearing grossly normal Neck: supple Respiratory/Chest: no respiratory distress, no accessory muscle use, + decreased breath sounds, + rhonchi (bilateral lower lobes ) Cardiovascular: regular rate, rhythm Abdomen/GI: normal bowel sounds, non tender, + distended Back: normal inspection Extremities/Musculoskelatal: no calf tenderness, no pedal edema Neurologic/Psych: 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 as tested, no motor/sensory deficits, alert, normal mood/affect, oriented x 3 Skin: normal color, warm/dry, no rash Diagnostics Laboratory Results Results Past 24 Hours Test 11/25/16 08:05 Range/Units White Blood Count 10.46 4.8-10.8 K/uL Red Blood Count 4.92 4.7-6.1 M/uL Hemoglobin 15.1 14.0-18.0 g/dL Hematocrit 44.7 42-52 % Mean Corpuscular Volume 90.9 80-100 fL Mean Corpuscular Hemoglobin 30.7 25-34 pg Mean Corpuscular Hemoglobin Concent 33.8 32-36 g/dl Platelet Count 221 130-400 K/uL Mean Platelet Volume 10.0 7.4-10.4 fL Neutrophils (%) (Auto) 65.4 % Lymphocytes (%) (Auto) 17.3 % Monocytes (%) (Auto) 7.6 % Eosinophils (%) (Auto) 8.6 % Basophils (%) (Auto) 0.7 % Neutrophils # (Auto) 6.85 1.4-6.5 K/uL Lymphocytes # (Auto) 1.81 1.2-3.4 K/uL Monocytes # (Auto) 0.79 0.11-0.59 K/uL Eosinophils # (Auto) 0.90 0-0.5 K/uL Basophils # (Auto) 0.07 0-0.2 K/uL RDW Standard Deviation 54.6 36.4-46.3 fL RDW Coefficient of Variation 16.6 11.5-14.5 % Immature Granulocyte % (Auto) 0.4 % Immature Granulocyte # (Auto) 0.04 0.00-0.02 K/uL Prothrombin Time 10.7 9.0-12.0 SECONDS Prothromb Time International Ratio 1.0 0.9-1.1 Sodium Level 139 136-145 mmol/L Potassium Level 4.1 3.5-5.1 mmol/L Chloride Level 106 98-107 mmol/L Carbon Dioxide Level 25 21-32 mmol/L Anion Gap 8.0 3-11 mmol/L Blood Urea Nitrogen 11 7-18 mg/dl Creatinine 1.00 0.60-1.40 mg/dl Estimated GFR () 85.0 Estimated GFR (Non- 73.3 BUN/Creatinine Ratio 10.8 10-20 Random Glucose 170 70-99 mg/dl Calcium Level 9.7 8.5-10.1 mg/dl Total Bilirubin 0.4 0.2-1 mg/dl Direct Bilirubin < 0.1 0-0.2 mg/dl Aspartate Amino Transf (AST/SGOT) 15 15-37 U/L Alanine Aminotransferase (ALT/SGPT) 19 12-78 U/L Alkaline Phosphatase 62 45-117 U/L Total Creatine Kinase 78 39-308 U/L Creatine Kinase MB 2.1 0.5-3.6 ng/ml Creatine Kinase MB Ratio 2.7 0-3.0 Troponin I < 0.015 0-0.045 ng/ml Total Protein 7.6 6.4-8.2 gm/dl Albumin 3.7 3.4-5.0 gm/dl Thyroid Stimulating Hormone (TSH) 5.790 0.300-4.500 uIu/ml Diagnostic Radiology HEAD WITHOUT CONTRAST (CT) CT DOSE: 537.48 mGy.cm HISTORY: Mental status change Pt c/o AMS TECHNIQUE: Multiaxial CT images of the head were performed without the use of intravenous contrast. A dose lowering technique was utilized adhering to the principles of ALARA. Comparison: 06/09/2016 Findings: The paranasal sinuses and mastoid air cells are clear. The calvarium and skull base are intact. The ventricles and sulci are within normal limits. There is no mass, hematoma, midline shift, or acute infarct. Age-related atrophy and chronic small vessel change Impression: No acute process. Age-related change. The above report was generated using voice recognition software. It may contain grammatical, syntax or spelling errors. Electronically signed by: Kvng Cuellar M.D. 11/25/2016 8:46 AM Dictated Date/Time: 11/25/2016 8:44 AM The status of this report is Signed. Draft = Not yet reviewed or approved by Radiologist. Signed = Reviewed and approved by Radiologist. CHEST ONE VIEW PORTABLE CLINICAL HISTORY: 76 years-old Male presenting with Pt c/o wheezing . TECHNIQUE: Portable upright AP view of the chest was obtained. COMPARISON: 06/09/2016. FINDINGS: The patient is slightly KALEB rotated, accounting for the appearance of added soft tissue in the right paratracheal region. Stable enlargement of the cardiac silhouette. Mildly increased prominence of pulmonary vasculature. Minimal hazy bibasilar opacities. No significant effusion or pneumothorax. Osseous structures and upper abdomen normal. IMPRESSION: 1. Stable cardiomegaly with evidence of volume overload, new from prior. 2. Minimal basilar atelectasis or subtle developing pulmonary edema. Electronically signed by: Sekou Milan M.D. 11/25/2016 8:37 AM Dictated Date/Time: 11/25/2016 8:35 AM The status of this report is Signed. Draft = Not yet reviewed or approved by Radiologist. Signed = Reviewed and approved by Radiologist. EKG LUCIAN LOPEZ ID:[id number] 25-NOV-2016 08:05:41 [facility] Poor data quality, interpretation may be adversely affected Normal sinus rhythm with sinus arrhythmia Nonspecific ST abnormality Abnormal ECG When compared with ECG of 09-JUN-2016 04:47, No significant change was found 25mm/s 10mm/mV 150Hz 8.0 SP2 12SL 241 TANGELA: 3 Referred by: Unconfirmed Vent. rate 71 BPM LA interval 130 ms QRS duration 78 ms QT/QTc 374/406 ms P-R-T axes 36 12 1940 (76 yr) Male 1lb Room:[facility] Loc:13 Iuss Acoustic Analyst:RICO Grullon ind: Impression Assessment and Plan Patient is a pleasant 76 y/o male, with PMHx of paroxysmal a.fib, T2DM, dyslipidemia, h/o CVA/TIAs, and asthma, who presented to the ED because of confusion beginning around 299. Acute hypoxic respiratory failure, ?secondary to baseline, pulmonary edema, or other etiology- follows w/ Dr. Cuevas: - Admit to tele for cardiac and O2 monitoring - Check ABG on RA - O2 protocol, wean as tolerated- does NOT wear O2 at home - CXR- no acute infectious findings, ?pulmonary edema - No s/s of infection- continue to monitor - Repeat ECHO -- ECHO - persevered EF, grade 1 diastolic dysfunction - DuoNebs QID and q2 hrs PRN SOB/wheezing - Continue Dulera 2 puffs BID - IV Solu Medrol 125 mg x1 dose in ED; begin Prednisone 30 mg daily on 11/26 for quick taper - Had recent PFTs- cannot find records Confusion, likely secondary to ?underlying dementia w/ disorientation vs less likely TIA- symptoms almost completely resolved: - Head CT negative - CXR- no acute findings - EKG- no acute findings - Cardiac enzymes negative x1 - PT/OT evaluations - Check UA - Consult neurology due to frequent visits for similar symptoms, appreciate recommendations Mild elevated TSH: Normal level in 06/2016- recommend f/u outpatient and repeat TSH Paroxysmal a.fib- rate controlled: - Continue Cardizem 120 mg HS, ASA 81 mg daily, Eliquis 5 mg BID T2DM- last Ha1c= 7.2% in 10/2016: - Hold Glimepiride 1 tab daily and Metformin 1000 mg BID - BSG ACHS w/ sliding insulin scale - T2DM diet Dyslipidemia- lipid panel 10/2016 WNL: Continue Simvastatin 40 mg HS HTN: Lisinopril 20 mg HS GI Prophylaxis: Protonix 40 mg daily DVT Prophylaxis: Eliquis Code Status: LEVEL I, FULL Dispo: From home, lives w/ PA Physician Supervision Note: I interviewed and examined the patient. Discussed with Quin GUEVARA and agree with findings and plan as documented in the note. Any exceptions or clarifications are listed here: none 76 m with episodic nocturnal confusion per , was found to have one incidental hypoxic reading in the ER, ABG on floor shows Room Air Pao2 to be low at 65% suggesting his COPD maybe worse that thought, his repeat Echo shows preserved EF and only mild Chronic diastolic heart failure, the mild vascular congestion seen on admission CXR will be treated with one dose of IV lasix and re evaluted in am Pt is appropriate and vitals are stable car is irregular he has a history of paroxysmal afib and is fully anticoagulated lungs are clear neurologic, is oriented but is forgetful gives me the sense of some baseline dementia EEG is non specific infectious work up negative will treat to maximize copd treatment, FEV1 was reduced on recent PFT but Around 1.7, his DLCO was also reduced, will have pulmonary medicine comment Documented By: Koffi Raymundo Level of Care Telemetry Advanced Directives Existing Living Will: No Existing Power of Operational Assistant: No Resuscitation Status FULL RESUSCITATION VTE Prophylaxis VTE Risk Assessment Done? Y/N: Yes Risk Level: Low Given or contraindicated: Other Anticoagulation, T.E.D. Stockings, SCD's
[2016-11-25] MEDS ORDERED: IV FLUIDS COMPLETED PRN (10:45)
[2016-11-25] MEDS ORDERED: ALBUT/IPRATROP 3MG/0.5MG NEB 3 ML VIAL INH PRN (11:00)
[2016-11-25] MEDS ORDERED: GLUCAGON FOR INJ 1 MG VIAL SQ PRN (11:45)
[2016-11-25] MEDS ORDERED: GLUCOSE 40% GEL 15 GM TUBE PO PRN (11:45)
[2016-11-25] MEDS ORDERED: DEXTROSE 50% 50 ML SYR IV PRN (11:45)
[2016-11-25] MEDS ORDERED: GLUCOSE 10 TABS/TUBE PO PRN (11:45)
[2016-11-25 11:56] LABS: ARTERIAL BLD GAS O2 SATURATION 93.2 % (90-95); ARTERIAL BLOOD GAS BASE EXCESS 0.8 mEq/L (-9-1.8); ARTERIAL BLOOD GAS HCO3 26 mmol/L (19-24); ARTERIAL BLOOD GAS PO2 65 mm/Hg (80-95)
[2016-11-25 11:57] LABS: ALLEN TEST POS (POS); O2 ADMINISTRATION 2L
[2016-11-25] MEDS: ALBUT/IPRATROP 3MG/0.5MG NEB 3 ML VIAL INH SCH ×2 (15:35→19:06)
[2016-11-25] MEDS: DULERA~ORDER AWAITING ACTION SCH ×2 (17:00→17:01)
--- NOTE | 2016-11-25 17:04 | EEG Procedure Note ---
EEG Procedure Note Date of Service Nov 25, 2016. Start / End Times Start Time: 11:13 AM End Time: 11:33 AM Referring Physician Amena Mederos History This is a 76-year-old male who presents with confusional episode. EEG for further evaluation of possible seizure etiology. Home Medication List Scheduled Apixaban (Eliquis), 5 MG PO BID Aspirin (Aspirin Ec), 81 MG PO BID Calcium Carbonate-Cholecalcife (Calcium 1000 + D), 1 TAB PO QAM Cholecalciferol (Vitamin D3), 2 CAP PO QAM Cyanocobalamin (Vitamin B-12), 1,000 MCG PO QAM Diltiazem Hcl Coated Beads (Diltiazem Cd), 120 MG PO HS Glimepiride (Glimepiride), 1 TAB PO QAM Lisinopril (Zestril), 20 MG PO HS Metformin Hcl (Glucophage), 1,000 MG PO BID Mometasone Furoate-Formoterol (Dulera 200/5 Mcg), 2 PUFFS INH BID Montelukast Sodium (Montelukast Sodium), 10 MG PO HS Simvastatin (Zocor), 40 MG PO HS Inpatient Medication List Current Inpatient Medications Medications (Trade) Dose Ordered Sig/Gopi Route Start Time Stop Time Status Last Admin Dose Admin Acetaminophen (Tylenol Tab) 650 mg Q4H PRN PO 11/25/16 10:00 12/25/16 09:59 Al Hydrox/Mg Hydrox/Simethicone (Maalox Max Susp) 15 ml Q4H PRN PO 11/25/16 10:00 12/25/16 09:59 Magnesium Hydroxide (Milk Of Magnesia Susp) 30 ml Q12H PRN PO 11/25/16 10:00 12/25/16 09:59 Ondansetron HCl (Zofran Inj) 4 mg Q6H PRN IV 11/25/16 10:00 12/25/16 09:59 Nitroglycerin (Nitrostat Tab) 0.4 mg UD PRN SL 11/25/16 10:00 12/25/16 09:59 Polyethylene (Miralax Powder Packet) 17 gm DAILY PRN PO 11/25/16 10:00 12/25/16 09:59 Aspirin (Ecotrin Tab) 81 mg BID PO 11/25/16 21:00 12/25/16 20:59 Cyanocobalamin (Vitamin B-12 Tab) 1,000 mcg QAM PO 11/26/16 09:00 12/26/16 08:59 Diltiazem HCl (Cardizem Cd Cap) 120 mg HS PO 11/25/16 21:00 12/25/16 20:59 Lisinopril (Zestril Tab) 20 mg HS PO 11/25/16 21:00 12/25/16 20:59 Montelukast Sodium (Singulair Tab) 10 mg HS PO 11/25/16 21:00 12/25/16 20:59 Simvastatin (Zocor Tab) 40 mg HS PO 11/25/16 21:00 12/25/16 20:59 Apixaban (Eliquis Tab) 5 mg BID PO 11/25/16 21:00 12/25/16 20:59 Miscellaneous Information (Order Awaiting Action) 1 ea QS N/A 11/25/16 12:00 12/25/16 11:59 Albuterol/ Ipratropium (Duoneb) 3 ml QIDR INH 11/25/16 12:00 12/25/16 11:59 11/25/16 15:35 3 ML Prednisone (PredniSONE TAB) 30 mg DAILY PO 11/26/16 09:00 12/26/16 08:59 Pantoprazole Sodium (Protonix Tab) 40 mg QAM PO 11/26/16 09:00 12/26/16 08:59 Insulin Aspart (novoLOG ASPART) SLIDING SCALE G... ACHS SC 11/25/16 16:30 12/25/16 16:29 Miscellaneous (Iv Fluids Completed) 1 ea PRN PRN N/A 11/25/16 10:45 11/25/17 10:44 Albuterol/ Ipratropium (Duoneb) 3 ml Q2H PRN INH 11/25/16 11:00 12/25/16 10:59 Glucose (Glucose 40% Gel) 15-30 GRAMS 15 GRAMS... UD PRN PO 11/25/16 11:45 12/25/16 11:44 Glucose (Glucose Chew Tab) 4-8 Tablets 4 Tabl... UD PRN PO 11/25/16 11:45 12/25/16 11:44 Dextrose (Dextrose 50% 50ML Syringe) 25-50ML OF 50% DW IV FOR... UD PRN IV 11/25/16 11:45 12/25/16 11:44 Glucagon (Glucagon Inj) 1 mg UD PRN SQ 11/25/16 11:45 12/25/16 11:44 Description This is a 21 electrode EEG with a single channel dedicated to limited EKG. The electrodes were placed in accordance with the International 10-20 system. At the start of the recording the patient was in an awake state/altered mental status. Background was well organized and composed of symmetric mixed alpha and beta frequencies with frequent intermittent generalized theta and delta slowing lasting 1-2 seconds. There was a symmetric well-formed moderate amplitude 8-9 Hz posterior dominant rhythm that was reactive to eye opening and closure. Hyperventilation was not done. Intermittent photic stimulation at various frequencies produced no abnormalities. There was no state changes or sleep transients. Interpretation This is an abnormal routine EEG secondary to frequent intermittent generalized delta and theta slowing. There was no electrographic seizures or epileptiform discharges. Clinical Correlation This EEG indicates a mild encephalopathy of nonspecific etiology.
[2016-11-25] MEDS: INSULIN ASPART 100 UNITS/ML 3 ML PEN SC SCH ×2 (17:08→21:21)
--- NOTE | 2016-11-25 17:10 | ECHOCARDIOGRAM REPORT ---
*NOTICE TO RECEIVING CONSTITUTION PARTY AGENCY This information is strictly Confidential and protected under [place] law. [place] law prohibits you from making any further disclosure of this information unless further disclosure is expressly permitted by the written consent of the person to whom it pertains or is authorized by law. A general authorization for the release of medical or other information is not sufficient for this purpose. Hospital accepts no responsibility if the information is made available to any other person, INCLUDING THE PATIENT. Interpretation Summary * Name: LUCIAN LOPEZ Study Date: 11/25/2016 02:00 PM BP: 164/94 mmHg * Patient Location: [facility] HR: 90 * : 1940 (M/d/yyyy) Gender: Male Height: 70 in * Age: 76 yrs Ethnicity: [place] Weight: 167 lb * Ordering Physician: Quin Miranda * Referring Physician: Self, Referred * Performed By: Simona Trinh RDCS * * Reason For Study: CHF * BSA: 1.9 m2 * -- Conclusions -- * Left ventricular systolic function is normal. * Grade I diastolic dysfunction, (abnormal relaxation pattern). * Compared to an echocardiogram from 05/2016, no change Procedure Details * A complete two-dimensional transthoracic echocardiogram was performed (2D, M-mode, Doppler and color flow Doppler). Left Ventricle * The left ventricle is normal in size. * There is normal left ventricular wall thickness. * Ejection Fraction = 60-65%. * Left ventricular systolic function is normal. * Grade I diastolic dysfunction, (abnormal relaxation pattern). Right Ventricle * The right ventricle is normal in size and function. Atria * The left atrial size is normal. * Right atrial size is normal. Mitral Valve * The mitral valve anatomy is normal. * There is no mitral regurgitation noted. Tricuspid Valve * The tricuspid valve is not well visualized, but is grossly normal. * Significant tricuspid regurgitation is absent. Aortic Valve * Aortic valve sclerosis mild, without significant aortic valvular stenosis. * No hemodynamically significant valvular aortic stenosis. * There is no significant aortic regurgitation. Pericardium/Pleural * There is no pericardial effusion. MMode 2D Measurements and Calculations IVSd 1.0 cm LVIDd 4.8 cm LVIDs 3.2 cm LVPWd 1.0 cm IVS/LVPW 1.0 FS 32.4 % EDV(Teich) 105.2 ml ESV(Teich) 41.4 ml EF(Teich) 60.6 % EDV(cubed) 107.5 ml ESV(cubed) 33.2 ml EF(cubed) 69.1 % LV mass(C)d 169.3 grams LV mass(C)dI 87.6 grams/m\S\2 SV(Teich) 63.8 ml SI(Teich) 33.0 ml/m\S\2 SV(cubed) 74.3 ml SI(cubed) 38.4 ml/m\S\2 ACS 1.4 cm LA dimension 3.7 cm asc Aorta Diam 3.3 cm LVAd ap4 23.8 cm\S\2 LVLd ap4 6.3 cm EDV(MOD-sp4) 73.9 ml EDV(sp4-el) 76.8 ml LVAs ap4 12.7 cm\S\2 LVLs ap4 4.9 cm ESV(MOD-sp4) 28.5 ml ESV(sp4-el) 27.9 ml EF(MOD-sp4) 61.5 % EF(sp4-el) 63.6 % LVAd ap2 20.3 cm\S\2 LVLd ap2 6.1 cm EDV(MOD-sp2) 56.0 ml EDV(sp2-el) 56.8 ml LVAs ap2 11.1 cm\S\2 LVLs ap2 4.9 cm ESV(MOD-sp2) 22.2 ml ESV(sp2-el) 21.0 ml EF(MOD-sp2) 60.3 % EF(sp2-el) 63.0 % LVLd %diff -1.82 % EDV(MOD-bp) 65.1 ml LVLs %diff 0.95 % ESV(MOD-bp) 25.3 ml EF(MOD-bp) 61.1 % SV(MOD-sp4) 45.5 ml SI(MOD-sp4) 23.5 ml/m\S\2 SV(MOD-sp2) 33.8 ml SI(MOD-sp2) 17.5 ml/m\S\2 SV(MOD-bp) 39.8 ml SI(MOD-bp) 20.6 ml/m\S\2 SV(sp4-el) 48.9 ml SI(sp4-el) 25.3 ml/m\S\2 SV(sp2-el) 35.8 ml SI(sp2-el) 18.5 ml/m\S\2 Doppler Measurements and Calculations MV E max nemesio 82.0 cm/sec MV A max nemesio 120.3 cm/sec MV E/A 0.68 MV dec time 0.28 sec Ao V2 max 167.0 cm/sec Ao max PG 11.1 mmHg Ao max PG (full) 6.4 mmHg LV V1 max PG 4.8 mmHg LV V1 max 109.1 cm/sec PA V2 max 142.5 cm/sec PA max PG 8.1 mmHg PA acc slope 1337.4 cm/sec\S\2 PA acc time 0.08 sec PA pr(Accel) 41.0 mmHg
[2016-11-25] MEDS ORDERED: METOPROLOL TARTRATE 1 MG/ML VIAL IV PRN (17:45)
[2016-11-25] MEDS ORDERED: FUROSEMIDE INJ 20 MG in SYRINGE 0 ML IV ONE (18:00)
[2016-11-25] MEDS ORDERED: NURSING DECISION MEDICATION ORDER SCH (20:15)
[2016-11-25] MEDS ORDERED: SODIUM CHLORIDE 0.65% NA SOLN 45 ML (OCEAN) PRN (20:30)
[2016-11-25] MEDS ORDERED: METFORMIN HCL 500 MG TAB PO SCH (21:00)
[2016-11-25] MEDS ORDERED: SIMVASTATIN 40 MG TAB PO SCH (21:00)
[2016-11-25] MEDS ORDERED: LISINOPRIL 20 MG TAB PO SCH (21:00)
[2016-11-25] MEDS ORDERED: MONTELUKAST SOD 10 MG TAB PO SCH (21:00)
[2016-11-25] MEDS ORDERED: DILTIAZEM HCL 120 MG CAPCR PO SCH (21:00)
[2016-11-25] MEDS: APIXABAN 2.5 MG TAB PO SCH (21:16)
[2016-11-25] MEDS: ASPIRIN 81 MG ECTAB PO SCH (21:17)
[2016-11-25] MEDS: MOMETASONE FUROATE-FORMOTEROL (DULERA) 200mcg/5mcg per inh INH SCH (21:19)
[2016-11-26] VITALS (7 sets, daily range): BP systolic 106–118; BP diastolic 58–70; PULSE 77–103; TEMP 36.2–36.8; O2SAT 90–94
[2016-11-26] MEDS: INSULIN ASPART 100 UNITS/ML 3 ML PEN SC SCH ×2 (06:30→12:37)
[2016-11-26] MEDS: ALBUT/IPRATROP 3MG/0.5MG NEB 3 ML VIAL INH SCH ×3 (06:58→14:57)
[2016-11-26] MEDS: APIXABAN 2.5 MG TAB PO SCH (07:33)
[2016-11-26] MEDS: MOMETASONE FUROATE-FORMOTEROL (DULERA) 200mcg/5mcg per inh INH SCH (07:33)
[2016-11-26] MEDS: ASPIRIN 81 MG ECTAB PO SCH (07:33)
--- NOTE | 2016-11-26 08:19 | Progress Note ---
Subjective Date of Service: Nov 26, 2016. Problem List Medical Problems: (1) Altered mental status Status: Acute (2) Altered mental status Status: Acute (3) Altered mental status Status: Acute (4) Atrial fibrillation with rapid ventricular response Status: Acute (5) COPD exacerbation Status: Acute (6) Elevated troponin Status: Acute Objective Vital Signs Date Time Temp Pulse Resp B/P (MAP) Pulse Ox O2 Delivery O2 Flow Rate FiO2 11/26/16 06:58 82 14 92 Room Air 11/26/16 04:01 36.8 77 18 106/67 (80) 93 Room Air 11/26/16 04:00 Room Air 11/26/16 00:01 Room Air 11/25/16 23:27 36.4 73 18 121/65 (83) 92 Room Air 11/25/16 21:13 115 18 122/70 (87) 93 Room Air 11/25/16 20:00 Room Air 11/25/16 19:46 36.7 104 18 137/78 (97) 91 Room Air 11/25/16 19:08 62 14 92 Room Air 2.0 11/25/16 16:00 91 Room Air 11/25/16 15:35 86 14 91 Nasal Cannula 2.0 11/25/16 15:16 36.5 82 18 126/79 (95) 92 Room Air 11/25/16 13:30 Nasal Cannula 2.0 11/25/16 13:05 36.6 74 18 149/73 (98) 93 Nasal Cannula 2.0 11/25/16 12:40 83 20 139/83 94 Nasal Cannula 2.0 11/25/16 11:26 93 22 150/72 91 Nasal Cannula 2.0 11/25/16 09:44 90 20 164/94 95 Nasal Cannula 2.0 11/25/16 09:43 95 11/25/16 09:30 95 Nasal Cannula 2.0 11/25/16 09:08 133 11/25/16 09:07 81 11/25/16 09:01 102 11/25/16 08:51 78 20 105/72 98 Nasal Cannula 2.0 11/25/16 08:26 74 20 154/82 96 Nasal Cannula 2.0 Laboratory Results Last 24 Hours Test 11/25/16 10:06 11/25/16 11:44 11/25/16 13:37 11/25/16 16:47 Urine Color YELLOW Urine Appearance CLEAR Urine pH 5.0 Urine Specific [place] 1.021 Urine Protein 1+ Urine Glucose (UA) TRACE Urine Ketones NEG Urine Occult Blood TRACE Urine Nitrite NEG Urine Bilirubin NEG Urine Urobilinogen NEG Urine Leukocyte Esterase NEG Urine WBC (Auto) 1-5 /hpf Urine RBC (Auto) 0-4 /hpf Urine Hyaline Casts (Auto) 1-5 /lpf Urine Epithelial Cells (Auto) 5-10 /lpf Urine Bacteria (Auto) NEG Arterial Blood pH 7.40 Arterial Blood Partial Pressure CO2 43 mmHg Arterial Blood Partial Pressure O2 65 mm/Hg Arterial Blood HCO3 26 mmol/L Arterial Blood Oxygen Saturation 93.2 % Arterial Blood Base Excess 0.8 mEq/L Arterial Blood Gas Delivery 2L Anish Test POS Bedside Glucose 217 mg/dl 328 mg/dl Test 11/25/16 19:54 11/26/16 07:51 Bedside Glucose 361 mg/dl 197 mg/dl Assessment and Plan Patient is a pleasant 76 y/o male, with PMHx of paroxysmal a.fib, T2DM, dyslipidemia, h/o CVA/TIAs, and asthma, who presented to the ED because of confusion beginning around 0. 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 - DuoNebs QID and q2 hrs PRN SOB/wheezing Dulera 2 puffs BID Prednisone 30 mg daily on 11/26 did have solu medrol in ER Confusion, likely secondary to ?underlying dementia w/ disorientation associated with hypoxia - Head CT negative - CXR- no acute findings - EKG- no acute findings -no other infectious findings - Consult neurology due to frequent visits for similar symptoms, appreciate recommendations Mild elevated TSH: Normal level in 06/2016- recommend f/u outpatient and repeat TSH Paroxysmal a.fib- rate controlled with Cardizem 120 mg HS, ASA 81 mg daily, Eliquis 5 mg BID T2DM- last Ha1c= 7.2% in 10/2016: restart Glimepiride 1 tab daily and Metformin 1000 mg BID - BSG ACHS w/ sliding insulin scale - T2DM diet Dyslipidemia Simvastatin 40 mg HS HTN: Lisinopril 20 mg HS GI Prophylaxis: Protonix 40 mg daily DVT Prophylaxis: Eliquis Code Status: LEVEL I, FULL
[2016-11-26] MEDS: METFORMIN HCL 500 MG TAB PO SCH ×2 (08:58→17:15)
[2016-11-26] MEDS ORDERED: GLIMEPIRIDE 2 MG TAB PO SCH (09:00)
[2016-11-26] MEDS ORDERED: PANTOprazole SOD 40 MG TAB PO SCH (09:00)
[2016-11-26] MEDS ORDERED: CYANOCOBALAMIN 500 MCG TAB (VIT B-12) PO SCH (09:00)
[2016-11-26] MEDS ORDERED: NON-FORMULARY MEDICATION (Glimepiride 1 TAB) PO SCH (09:00)
--- NOTE | 2016-11-26 11:07 | Neurology Consultation ---
Neurology Consultation Date of Consultation: Nov 26, 2016. Attending Physician: Koffi Raymundo M.D. Primary Care Physician: Julián Heck M.D. Reason for Consultation: Consultation for repeat confusional episodes History of Present Illness Source: patient, spouse, clinic records, hospital records This is a 76-year-old male who presents for the above evaluation. Patient does not really remember the confusional episode so history was mostly taken from his regarding these episodes whom I spoke to over the phone. According to the he's had 4 major and possibly 1 minor episode of acute confusion since May 2016. She reports that they for the most part all tend to happen around 3 AM at night. He will be confused for hours afterwards. With the last episode that brought him into the hospital this time she reported there was also a new symptom of oral and appeared to be expressive aphasia where he would point to things but not be able to name them. She denies any focal weakness or numbness. There was never any blank stare, blinking, or automatisms. No lip smacking. No overt shaking or seizure-like activity. His never had a history of seizures. First episode happened in May 2016 in which she was admitted to the hospital and had a TIA workup that was unremarkable. Neurology was not consult at that time. Patient had previously seen Dr. Stallings in neurology clinic in 2013 for evaluation of memory and cognition. MRI of the brain reported images from May 2012 were reviewed by myself. Noted to have some mild diffuse atrophy and T2 hyperintensities consistent with mild small vessel ischemic disease mostly around the ventricles. Also noted nonspecific cavernoma and a small meningioma in the right hemisphere. MRA was also reviewed of the head and was unremarkable. Ultrasound of the carotids noted some atherosclerotic plaque but was a remarkable otherwise In May labs were also reviewed. Total cholesterol 150, LDL 64, HDL 51, triglycerides 174, hemoglobin A1c 8.2. Labs this admission were reviewed and noted TSH elevated at 5.7. UA unremarkable. Past Medical/Surgical History Medical Problems: (1) Altered mental status Status: Acute (2) Altered mental status Status: Acute (3) Altered mental status Status: Acute (4) Atrial fibrillation with rapid ventricular response Status: Acute (5) COPD exacerbation Status: Acute (6) Elevated troponin Status: Acute A. fib on Eliquis Diabetes, dyslipidemia, hypertension Family History Family history reported as unremarkable. The patient denies any family history of strokes, seizures, or dementia. Social History Patient is normally and then his activities of daily living. He does not drive. Former tobacco use. No alcohol or illegal drug use. Smoking Status: Former smoker Drug Use: none Marital Status: Housing Status: lives with family Occupation Status: employed Allergies Coded Allergies: NO KNOWN DRUG ALLERGIES (Verified Allergy, Mild, ., 08/17/16) POLLEN (Verified Allergy, Mild, CONGESTION, 08/10/16) Current Inpatient Medications Current Inpatient Medications Medications (Trade) Dose Ordered Sig/Gopi Route Start Time Stop Time Status Last Admin Dose Admin Acetaminophen (Tylenol Tab) 650 mg Q4H PRN PO 11/25/16 10:00 12/25/16 09:59 Al Hydrox/Mg Hydrox/Simethicone (Maalox Max Susp) 15 ml Q4H PRN PO 11/25/16 10:00 12/25/16 09:59 Magnesium Hydroxide (Milk Of Magnesia Susp) 30 ml Q12H PRN PO 11/25/16 10:00 12/25/16 09:59 Ondansetron HCl (Zofran Inj) 4 mg Q6H PRN IV 11/25/16 10:00 12/25/16 09:59 Nitroglycerin (Nitrostat Tab) 0.4 mg UD PRN SL 11/25/16 10:00 12/25/16 09:59 Polyethylene (Miralax Powder Packet) 17 gm DAILY PRN PO 11/25/16 10:00 12/25/16 09:59 Aspirin (Ecotrin Tab) 81 mg BID PO 11/25/16 21:00 12/25/16 20:59 11/26/16 07:33 81 MG Cyanocobalamin (Vitamin B-12 Tab) 1,000 mcg QAM PO 11/26/16 09:00 12/26/16 08:59 11/26/16 07:34 1,000 MCG Diltiazem HCl (Cardizem Cd Cap) 120 mg HS PO 11/25/16 21:00 12/25/16 20:59 11/25/16 21:16 120 MG Lisinopril (Zestril Tab) 20 mg HS PO 11/25/16 21:00 12/25/16 20:59 11/25/16 21:18 20 MG Montelukast Sodium (Singulair Tab) 10 mg HS PO 11/25/16 21:00 12/25/16 20:59 11/25/16 21:18 10 MG Simvastatin (Zocor Tab) 40 mg HS PO 11/25/16 21:00 12/25/16 20:59 11/25/16 21:18 40 MG Apixaban (Eliquis Tab) 5 mg BID PO 11/25/16 21:00 12/25/16 20:59 11/26/16 07:33 5 MG Albuterol/ Ipratropium (Duoneb) 3 ml QIDR INH 11/25/16 12:00 12/25/16 11:59 11/26/16 06:58 3 ML Prednisone (PredniSONE TAB) 30 mg DAILY PO 11/26/16 09:00 12/26/16 08:59 11/26/16 07:33 30 MG Pantoprazole Sodium (Protonix Tab) 40 mg QAM PO 11/26/16 09:00 12/26/16 08:59 11/26/16 07:33 40 MG Insulin Aspart (novoLOG ASPART) SLIDING SCALE G... ACHS SC 11/25/16 16:30 12/25/16 16:29 11/25/16 21:21 7 UNITS Miscellaneous (Iv Fluids Completed) 1 ea PRN PRN N/A 11/25/16 10:45 11/25/17 10:44 Albuterol/ Ipratropium (Duoneb) 3 ml Q2H PRN INH 11/25/16 11:00 12/25/16 10:59 Glucose (Glucose 40% Gel) 15-30 GRAMS 15 GRAMS... UD PRN PO 11/25/16 11:45 12/25/16 11:44 Glucose (Glucose Chew Tab) 4-8 Tablets 4 Tabl... UD PRN PO 11/25/16 11:45 12/25/16 11:44 Dextrose (Dextrose 50% 50ML Syringe) 25-50ML OF 50% DW IV FOR... UD PRN IV 11/25/16 11:45 12/25/16 11:44 Glucagon (Glucagon Inj) 1 mg UD PRN SQ 11/25/16 11:45 12/25/16 11:44 Metoprolol Tartrate (Lopressor Iv) 5 mg Q4 PRN IV 11/25/16 17:45 12/25/16 17:44 Sodium Chloride ([place] Nasal Given) 1 sprays PRN PRN NA 11/25/16 20:30 12/25/16 20:29 11/25/16 21:15 1 SPRAYS Mometasone Furoate/ Formoterol Fumar (Dulera) 2 ea BID INH 11/25/16 21:00 12/25/16 20:59 11/26/16 07:33 2 EA Glimepiride (Amaryl Tab) 1 mg QDB PO 11/26/16 09:00 12/26/16 08:59 11/26/16 08:59 1 MG Metformin HCl (Glucophage Tab) 1,000 mg BIDM PO 11/26/16 09:00 12/26/16 08:59 11/26/16 08:58 1,000 MG Review of Systems Review of systems otherwise negative except for the above-noted history of present illness Physical Exam Vital Signs (Past 24 Hrs): Date Time Temp Pulse Resp B/P (MAP) Pulse Ox O2 Delivery O2 Flow Rate FiO2 11/26/16 08:16 36.2 82 20 115/70 (85) 90 Room Air 11/26/16 08:00 Room Air 11/26/16 06:58 82 14 92 Room Air 11/26/16 04:01 36.8 77 18 106/67 (80) 93 Room Air 11/26/16 04:00 Room Air 11/26/16 00:01 Room Air 11/25/16 23:27 36.4 73 18 121/65 (83) 92 Room Air 11/25/16 21:13 115 18 122/70 (87) 93 Room Air 11/25/16 20:00 Room Air 11/25/16 19:46 36.7 104 18 137/78 (97) 91 Room Air 11/25/16 19:08 62 14 92 Room Air 2.0 11/25/16 16:00 91 Room Air 11/25/16 15:35 86 14 91 Nasal Cannula 2.0 11/25/16 15:16 36.5 82 18 126/79 (95) 92 Room Air 11/25/16 13:30 Nasal Cannula 2.0 11/25/16 13:05 36.6 74 18 149/73 (98) 93 Nasal Cannula 2.0 11/25/16 12:40 83 20 139/83 94 Nasal Cannula 2.0 11/25/16 11:26 93 22 150/72 91 Nasal Cannula 2.0 Gen.: Patient is alert and sitting in chair, in no acute distress. HEENT: Normocephalic /atraumatic, no scleral icterus Heart: Regular rate and rhythm Extremities: No gross deformities or rashes noted Neurological examination: Mental status: Patient is alert and oriented to person place and year. Patient incorrectly said that the month was December but correctly stated that the day was Monday. Attention and concentration normal for the situation. History and fund of knowledge somewhat limited and likely has some cognitive deficits. Speech is fluent without any dysarthria or aphasia noted Cranial nerve: Funduscopic examination was unremarkable. No papilledema. Pupils equally round and reactive to light. Extraocular muscles intact without nystagmus. No facial asymmetry noted. Facial sensation intact. Tongue is midline. Good palatal elevation. Good shoulder shrug bilaterally. Hearing grossly intact to voice. Strength: 5/5 both proximal and distally in all extremities. There is no arm drift. Tone is normal. Sensation: Grossly intact to light touch in all extremities. Deep tendon reflexes: +1 in bilateral biceps, brachioradialis and patellar. Coordination: Patient had good finger to nose without dysmetria. Does have moderate action tremors bilaterally. Gait was within normal limits and stable. No ataxia noted. Laboratory Results Past 24 Hours: Test 11/25/16 11:44 11/26/16 07:51 Arterial Blood pH 7.40 (7.35-7.45) Arterial Blood Partial Pressure CO2 43 mmHg (35-46) Arterial Blood Partial Pressure O2 65 mm/Hg (80-95) Arterial Blood HCO3 26 mmol/L (19-24) Arterial Blood Oxygen Saturation 93.2 % (90-95) Arterial Blood Base Excess 0.8 mEq/L (-9-1.8) Arterial Blood Gas Delivery 2L Anish Test POS (POS) Bedside Glucose 197 mg/dl (70-99) Imaging As noted above in history of present illness. In addition CT of the head this admission was unremarkable Impression This is a 76-year-old male with 4-5 fairly stereotypical confusional events since May 2016. At this time I think that it is unlikely that these events represent TIA or vascular etiology. I'm more concerned that these events could represent nocturnal seizures. The alternative explanation could be cognitive fluctuation and confusion in the setting of likely baseline neurocognitive deficits (i.e. baseline mild cognitive impairment or dementia). Plan I had ordered a routine EEG yesterday before the weekend for further evaluation of events concerning for possible seizures. Routine EEG showed some intermittent mild slowing that is nonspecific. As such would recommend getting a 48-hour ambulatory EEG as an outpatient for further evaluation of confusional events especially since most of a nocturnal. I will contact our scheduling people to set up an outpatient ambulatory EEG and neurology clinic follow-up for further evaluation of possible seizures as a cause for these confusional episodes. Recommend getting a repeat MRI of the brain while in hospital to rule out vascular changes since May that could contribute to his confusional events. Thank you for allowing me to participate in this patient's care. If there is any concerns or questions, feel free to call/page me. Patient should follow-up in neurology clinic in approximately 1 month (after ambulatory EEG). Assessment and plan was discussed with the patient's .
--- NOTE | 2016-11-26 13:26 | DIAGNOSTIC IMAGING REPORT ---
MRI OF THE BRAIN WITHOUT CONTRAST CLINICAL HISTORY: Confusion. Dizziness. COMPARISON STUDY: MRI of the brain May 09, [address] November 25, 2016. TECHNIQUE: Utilizing a 1.5 [place]ona magnet and dedicated coil, multiplanar, multiecho imaging of the brain was performed without IV contrast. FINDINGS: There are no areas of restricted diffusion. No acute intracranial hemorrhage, midline shift or mass effect is present. Ventricular system is stable. A 5 mm T2 hyperintense lesion with hypointense rim within the right frontal lobe is unchanged since earlier exams. This reflects a small cavernoma. Basilar cisterns are patent. There are no extra axial collections. Flow-voids for the major intracranial vessels are present. Numerous white matter T2 hyperintense foci are similar to prior exam and suggest small vessel disease. The left ethmoid sinuses are largely opacified. There is mild mucosal thickening of the left frontal and sphenoid sinuses. IMPRESSION: 1. No acute intracranial findings. 2. Largely opacified left ethmoid air cells with mild mucosal thickening of the left sphenoid and frontal sinuses. 3. No change in a 5 mm right frontal lobe cavernoma since prior MRI. Electronically signed by: Kevin Hernández M.D. 11/26/2016 1:25 PM Dictated Date/Time: 11/26/2016 1:20 PM
--- NOTE | 2016-11-26 14:25 | Pulmonary Consultation ---
History General Date of Service: Nov 26, 2016. Stated Complaint: Asthma, Hypoxia HPI The patient is a 76 year old male who presents to [facility] with complaints of Asthma, Hypoxia. The patient's primary care provider is Julián Heck M.D.. Mr. Zurita is a 76-year-old male with past medical history of asthma, paroxysmal atrial fibrillation type 2 diabetes, hypertension, dyslipidemia and TIAs who admitted for acute change in mental status associated with confusion. He is he has been worked up from a cardiology and standpoint. In the ED, he he was treated with IV Solu-Medrol 125 mg as well as a DuoNeb treatment after he was noted to have a SaO2 of 88% on RA. At the time of his initial evaluation denied any shortness of breath and was speaking in full sentences. Today, patient denies any respiratory symptoms other than chronic cough. Currently he is on Dulera, Singulair 10 mg daily, prednisone 30 mg daily albuterol/ipratropium nebulizers every 4 hours. He denies any fevers, chills, changes in sputum color/consistency or shortness of breath. He states that he has unlimited exercise tolerance. He can walk about a mile without dyspnea if he is taking his time and climbs about 12 steps in his house on a daily basis. He states that his respiratory symptoms started about 20 years ago. Patient denies any asthma symptoms in childhood. He states that he smoked about 2 and half packs per day for about 15 years. He admits to daily cough with whitish productive sputum. He states that his symptoms are exacerbated by air- conditioning, and freshly cut grass. He denies any recent hospitalizations or exacerbations and has never been intubated. He does admit to having a postnasal drip as well as GERD-like symptoms that precipitated cough. He denies any orthopnea, lower extremity swelling and edema or paroxysmal nocturnal dyspnea. He does however have monthly episodes of nighttime awakening with intermittent confusion. He had nocturnal oximetry done which was within normal limits. As an outpatient patient has also been worked up by Dr. Cuevas, he had a home sleep study done on 10/25/2016 for the complaints of generalized fatigue and excessive daytime sleepiness which showed no evidence extent of significant sleep apnea. There were several episodes of oxygen desaturations observed however this was thought to be due to malfunction and enlargement of the pulse oximeter. His last PFT done on 11/04/2016 showed spirometry suggests a moderately severe obstructive ventilatory defect with an FEV1 of 61% with borderline bronchodilator response, DLCO was moderately decreased. Review of Systems Constitutional: reports: as stated in HPI Eyes: reports: as stated in HPI ENT: reports: as stated in HPI Cardiovascular: reports: as stated in HPI Respiratory: reports: as stated in HPI Gastrointestinal: reports: as stated in HPI Genitourinary - Male: reports: as stated in HPI Musculoskeletal: reports: as stated in HPI Integumentary: reports: as stated in HPI Neurologic: reports: as stated in HPI Psychiatric: reports: as stated in HPI Hematologic / Lymphatic: as stated in HPI Allergic / Immunologic: as stated in HPI All Other Symptoms All Other Systems: Reviewed and Negative Past Medical History Past Medical History: Paroxysmal a.fib T2DM Dyslipidemia HTN h/o CVA/TIAs Asthma Family history Cancer Heart disease Hypertension Family History Cancer Heart disease Hypertension Social History Occupational history: 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 Hx Tobacco Use In Past Year?: No Smoking Status: Former Smoker Marital status: Housing status: lives with family Occupational Status: employed Immunizations History of Influenza Vaccine: Yes History of Tetanus Vaccine?: No History of Pneumococcal: Yes History of Hepatitis B Vaccine: No History of MDRO History of MDRO: No Allergies Coded Allergies: NO KNOWN DRUG ALLERGIES (Verified Allergy, Mild, ., 08/17/16) POLLEN (Verified Allergy, Mild, CONGESTION, 08/10/16) Current Medications Reported Home Medications Medications Dose Route/Sig Max Daily Dose Days Date Category Vitamin D3 (Cholecalciferol) 2,000 Unit Cap 2 Cap PO QAM 08/10/16 Reported Vitamin B-12 (Cyanocobalamin) 1,000 Mcg Tab 1,000 Mcg PO QAM 08/10/16 Reported Glimepiride 1 Mg Tab 1 Tab PO QAM 08/10/16 Reported Eliquis (Apixaban) 5 Mg Tab 5 Mg PO BID 08/10/16 Reported Calcium 1000 + D (Calcium Carbonate-Cholecalcife) 1 Tab Tab 1 Tab PO QAM 06/09/16 Reported Diltiazem Cd (Diltiazem Hcl Coated Beads) 120 Mg Cap 120 Mg PO HS 05/08/16 Reported Aspirin Ec (Aspirin) 81 Mg Tab 81 Mg PO BID 06/18/15 Reported Dulera 200/5 Mcg (Mometasone Furoate-Formoterol) 1 Aer Aer 2 Puffs INH BID 06/09/15 Reported Glucophage (Metformin Hcl) 1,000 Mg Tab 1,000 Mg PO BID 06/09/15 Reported Zocor (Simvastatin) 40 Mg Tab 40 Mg PO HS 09/13/12 Reported Montelukast Sodium 10 Mg Tab 10 Mg PO HS 09/13/12 Reported Zestril (Lisinopril) 40 Mg Tab 20 Mg PO HS 09/13/12 Reported Physical Physical Exam Vital Signs: Date Time Temp Pulse Resp B/P (MAP) Pulse Ox O2 Delivery O2 Flow Rate FiO2 11/26/16 11:18 103 14 94 Room Air 11/26/16 08:16 36.2 82 20 115/70 (85) 90 Room Air 11/26/16 08:00 Room Air 11/26/16 06:58 82 14 92 Room Air 11/26/16 04:01 36.8 77 18 106/67 (80) 93 Room Air 11/26/16 04:00 Room Air 11/26/16 00:01 Room Air 11/25/16 23:27 36.4 73 18 121/65 (83) 92 Room Air 11/25/16 21:13 115 18 122/70 (87) 93 Room Air 11/25/16 20:00 Room Air 11/25/16 19:46 36.7 104 18 137/78 (97) 91 Room Air 11/25/16 19:08 62 14 92 Room Air 2.0 11/25/16 16:00 91 Room Air 11/25/16 15:35 86 14 91 Nasal Cannula 2.0 11/25/16 15:16 36.5 82 18 126/79 (95) 92 Room Air Vital signs: Qhoaeghfkng48.2C, blood ygzxwflq157/70, gevgz523, respiratory bzrf55-81 minutes, 90-94% on room air. Gen: patient sitting talking with family he appears to be comfortable in no acute respiratory distress. Awake: alert oriented 2, no acute distress. HEENT: Atraumatic, normocephalic, pupils equal and reactive to light, extraocular movement intact, conjunctiva normal, mild nasal congestion, throat without injection or erythema, hearing aids in place Neck: Supple, nontender, no JVD CVS: S1 and S2, regular rate and rhythm, no murmurs rubs or gallops appreciated Lungs: Diffuse bilateral wheezing with prolonged expiratory phase Abdomen: Mildly distended nontender soft bowel sounds appreciated. Extremities: No edema bilateral lower extremities, no cyanosis, no clubbing Neuro: Cranial nerves II through XII intact, no focal neurological or motor deficit. Patient is ambulating independently around the room without any assistance. Psych: Patient was tearful during history and physical exam. No suicidal ideations. Diagnostics Labs Results Past 24 Hours Test 11/25/16 16:47 11/25/16 19:54 11/26/16 07:51 11/26/16 12:19 Range/Units Bedside Glucose 328 361 197 219 70-99 mg/dl Diagnostic Radiology HEAD WITHOUT CONTRAST (CT) 11/25/2016 Findings: The paranasal sinuses and mastoid air cells are clear. The calvarium and skull base are intact. The ventricles and sulci are within normal limits. There is no mass, hematoma, midline shift, or acute infarct. Age-related atrophy and chronic small vessel change Impression: No acute process. Age-related change. CHEST ONE VIEW PORTABLE 11/25/2016 FINDINGS: The patient is slightly [place] rotated, accounting for the appearance of added soft tissue in the right paratracheal region. Stable enlargement of the cardiac silhouette. Mildly increased prominence of pulmonary vasculature. Minimal hazy bibasilar opacities. No significant effusion or pneumothorax. Osseous structures and upper abdomen normal. IMPRESSION: 1. Stable cardiomegaly with evidence of volume overload, new from prior. 2. Minimal basilar atelectasis or subtle developing pulmonary edema. TTE from 11/25/2016 * Left ventricular systolic function is normal. Ejection Fraction = 60-65%. * Grade I diastolic dysfunction, (abnormal relaxation pattern). * Compared to an echocardiogram from 05/2016, no change EKG EKG from 11/26/2016 Normal sinus rhythm Nonspecific ST abnormality Abnormal ECG When compared with ECG of 25-NOV-2016 08:05, No significant change was found Impression Assessment and Plan Asthma/COPD overlap syndrome Patient appears to have components of both asthma and COPD. His last pulmonary function tests suggest that he does have moderately severe obstruction which can be seen in both asthma and COPD. He does have a bronchodilator response which is seen in asthmatics and a decreased DLCO which is seen and COPD. The patient is currently wheezing at the time my examination however I do not feel that he is in acute exacerbation. His eosinophil level is increased compared to previous, which also suggests towards an asthma phenotype. At this time, I would continue with his bronchodilators and ipratropium and albuterol when necessary. He is not requiring oxygen and saturating around 94 %. He does not appear to be overtly fluid overloaded on physical exam however chest x-ray does show some mild congestion. He may benefit from diuretics. Continue with Dulera, as well as Singulair. Upon discharge I would start Spiriva. I appreciate the consult. I will defer the rest of his pulmonary care to his primary team. Please reconsult if you have any further questions or concerns.
--- NOTE | 2016-11-26 16:18 | Discharge Instructions ---
Discharge Instructions Date of Service Nov 26, 2016. Admission Reason for Admission: Asthma, Hypoxia Discharge Discharge Diagnosis / Problem: intermittent confusion Discharge Goals Goal(s): Diagnostic testing, Therapeutic intervention Activity Recommendations Activity Limitations: resume your previous activity . Instructions / Follow-Up Instructions / Follow-Up While you are taking your prednisone, please take your glimepiride twice a day start all of your medicines tonight , but then also begin the prednisone and digoxin in the morning and take them in the morning there after Current Hospital Diet Patient's current hospital diet: AHA Diet (Heart Healthy), Diabetes Type 2 Diet Discharge Diet Recommended Diet: Diabetes Type 2 Diet Pending Studies Studies pending at discharge: no Laboratory Results Hemoglobin A1c Test 10/18/16 11:22 Range/Units Estimated Average Glucose 160 mg/dl Hemoglobin A1c 7.2 H 4.5-5.6 % Lipid Panel Test 10/18/16 11:22 Range/Units Triglycerides Level 168 H 0-150 mg/dl Cholesterol Level 165 0-200 mg/dl HDL Cholesterol 55 mg/dl Cholesterol/HDL Ratio 3.0 LDL Cholesterol, Calculated 76 mg/dl Medical Emergencies . Who to Call and When: Medical Emergencies: If at any time you feel your situation is an emergency, please call 911 immediately. . Non-Emergent Contact Non-Emergency issues call your: Primary Care Provider, Neurologist, Medication Reconciliation Technician Call Non-Emergent contact if: temperature is above 101, your pain is unusual for you . . "Provider Documentation" section prepared by Koffi Raymundo. . VTE Core Measure Inpt VTE Proph given/why not?: Other Anticoagulation, T.E.D. Stockings, SCD's
[2016-11-26] MEDS ORDERED: LNX125 PO (16:27)
[2016-11-26] MEDS ORDERED: PRD10 PO (16:27)
[2016-11-26] MEDS ORDERED: IPRA1AER2 INH (16:27)
--- NOTE | 2016-11-26 16:46 | Discharge Summary ---
Discharge Summary Date of Service Nov 26, 2016. Discharge Summary Admission Date: Nov 25, 2016 at 10:06 Discharge Date: Nov 26, 2016 Principal Diagnosis: intermittent confusion, copd Immunizations: Have You Had Influenza Vaccine: Yes History of Tetanus Vaccine?: No History of Pneumococcal: Yes History of Hepatitis B Vaccine: No Procedures: echo:The left ventricle is normal in size. There is normal left ventricular wall thickness. Ejection Fraction = 60-65%. Left ventricular systolic function is normal. Grade I diastolic dysfunction, (abnormal relaxation pattern). EEG non specific MRI stable old findings, cavernous hemangiona nocturnal oxymetry not below 90% Medication Reconciliation New Medications: Digoxin (Digoxin) 0.125 Mg Tab 0.125 MG PO DAILY, #30 DOSE 3 Refills Ipratropium-Albuterol (Combivent Respimat) 1 Aer Aer 1 PUFFS INH QID, #1 INH 3 Refills Prednisone (Prednisone) 10 Mg Tab 10 MG PO UD, #42 DOSE 4 pills a day for four days then 3 pills a day for four days then 2 pills a day for four days then 1 pill a day Continued Medications: Apixaban (Eliquis) 5 Mg Tab 5 MG PO BID, TAB Aspirin (Aspirin Ec) 81 Mg Tab 81 MG PO BID Calcium Carbonate-Cholecalcife (Calcium 1000 + D) 1 Tab Tab 1 TAB PO QAM Cholecalciferol (Vitamin D3) 2,000 Unit Cap 2 CAP PO QAM, CAP 3 Refills Cyanocobalamin (Vitamin B-12) 1,000 Mcg Tab 1000 MCG PO QAM, TAB Diltiazem Hcl Coated Beads (Diltiazem Cd) 120 Mg Cap 120 MG PO HS Glimepiride (Glimepiride) 1 Mg Tab 1 TAB PO QAM, TAB 3 Refills Lisinopril (Zestril) 40 Mg Tab 20 MG PO HS, TAB Metformin Hcl (Glucophage) 1,000 Mg Tab 1000 MG PO BID Mometasone Furoate-Formoterol (Dulera 200/5 Mcg) 1 Aer Aer 2 PUFFS INH BID, 3 Refills Montelukast Sodium (Montelukast Sodium) 10 Mg Tab 10 MG PO HS Simvastatin (Zocor) 40 Mg Tab 40 MG PO HS Discharge Exam Review of Systems: Constitutional: No fever, No chills Respiratory: No cough, No sputum, No wheezing, No shortness of breath, No dyspnea on exertion, No dyspnea at rest Cardiovascular: No chest pain, No orthopnea, No PND, No edema Physical Exam: General Appearance: WD/WN, + mild distress Neck: supple, no JVD Respiratory/Chest: chest non-tender, lungs clear, normal breath sounds Cardiovascular: + tachycardia, + irregularly irregular Extremities: no pedal edema, normal range of motion Hospital Course Patient is a pleasant 76 y/o male, with PMHx of paroxysmal a.fib, T2DM, dyslipidemia, h/o CVA/TIAs, and asthma, who presented to the ED because of confusion beginning around 0300. Acute hypoxic respiratory failure, was not proven, PFT's outpt suggests COPD. feels better on steroids and duonebs - ABG on RA does show reduced pao2 - CXR- no acute infectious findings,called back to room on 11/26 afternoon patient wants to go home, I reinforced we did not have an exact diagnosis, he still wants to leave, will RX prednisone taper and combivent respimat as no DME places are open to get nebulizer but ultimately he may need one, will discuss with DR Cuevas or Maria R on follow up visit Confusion, - Head CT negative MRI brain no new findings - CXR- no acute findings - EKG- no acute findings, ECHO normal -no other infectious findings EEG no epileptic focus Nocturnal oximetry negative Mild elevated TSH: Normal level in 06/2016- recommend f/u outpatient and repeat TSH Paroxysmal a.fib- intermittently rate controlled with Cardizem 120 mg HS, ASA 81 mg daily, Eliquis 5 mg BID, since he bounces around a bit, will add low dose digoxin to regime as BP is lower and reluctant to increase diltiazem, may benefit from outpt cardiology follow up to further adress afib T2DM- last Ha1c= 7.2% in 10/2016: Glimepiride 1 tab daily and Metformin 1000 mg BID, steroids have glucose up, will ask to double glimepiride while on steroids Dyslipidemia Simvastatin 40 mg HS HTN: Lisinopril 20 mg HS GI Prophylaxis: Protonix 40 mg daily DVT Prophylaxis: Eliquis Code Status: LEVEL I, FULL Total Time Spent: Greater than 30 minutes This includes examination of the patient, discharge planning, medication reconciliation, and communication with other providers. Discharge Instructions Please refer to the electronic Patient Visit Report (Discharge Instructions) for additional information.
== END 2016-11-26 18:01 | disposition home or self-care (01) ==
LOC: C.EDB 07:53 → C.MED 10:06 → ENRESERV 12:12
PROVIDERS: ADMIT Internal Medicine; ATTEND Internal Medicine
DX: R41.0 Disorientation, unspecified (principal); J44.1 Chronic obstructive pulmonary disease with (acute) exacerbation; I48.91 Unspecified atrial fibrillation; R09.02 Hypoxemia; Z79.01 Long term (current) use of anticoagulants; E11.9 Type 2 diabetes mellitus without complications; I10 Essential (primary) hypertension; Z86.73 Personal history of transient ischemic attack (TIA), and cerebral infarction without residual deficits; Z82.49 Family history of ischemic heart disease and other diseases of the circulatory system; Z87.891 Personal history of nicotine dependence; Z87.01 Personal history of pneumonia (recurrent); Z79.82 Long term (current) use of aspirin; Z79.84 Long term (current) use of oral hypoglycemic drugs; I51.7 Cardiomegaly

== ENCOUNTER → 2017-01-18 | Outpatient (CLI) | payer OTHER ==
[~2017-01-18] MED LIST changes: -CLOP1TAB15 PO; +IPRA1AER2 INH; +LNX125 PO; +PRD10 PO; -PRLSR20 PO
--- NOTE | 2017-01-29 15:02 | EEG Procedure Note ---
EEG Procedure Note Date of Service Jan 18, 2017. Start / End Times Start Time: 01/18/17 @ 9:48am End Time: 01/19/17 @ 8:04am Referring Physician Amena Mederos History 76 year old male with spells of presyncope. Ambulatory EEG for further evaluation of possible seizure etiology. Home Medication List Scheduled Apixaban (Eliquis), 5 MG PO BID Aspirin (Aspirin Ec), 81 MG PO BID Calcium Carbonate-Cholecalcife (Calcium 1000 + D), 1 TAB PO QAM Cholecalciferol (Vitamin D3), 2 CAP PO QAM Cyanocobalamin (Vitamin B-12), 1,000 MCG PO QAM Digoxin (Digoxin), 0.125 MG PO DAILY Diltiazem Hcl Coated Beads (Diltiazem Cd), 120 MG PO HS Glimepiride (Glimepiride), 1 TAB PO QAM Ipratropium-Albuterol (Combivent Respimat), 1 PUFFS INH QID Lisinopril (Zestril), 20 MG PO HS Metformin Hcl (Glucophage), 1,000 MG PO BID Mometasone Furoate-Formoterol (Dulera 200/5 Mcg), 2 PUFFS INH BID Montelukast Sodium (Montelukast Sodium), 10 MG PO HS Prednisone (Prednisone), 10 MG PO UD Simvastatin (Zocor), 40 MG PO HS Description This is a 21 electrode ambulatory EEG with a single channel dedicated to limited EKG. The electrodes were placed in accordance with the International 10- 20 system. There was significant generalized bifrontal predominant muscle artifact when awake. After 2:42pm there was disconnection artifact in Fp1 and Fp2. After 8: 04am on 01/19 all leads apeared to be disconnected. Overall technical quality was fait to poor. At the start of the recording the patient was in an awake state. The background was well organized and composed of symmetric mixed alpha and beta frequencies. There was a well formed symmetric moderate amplitude posterior dominant rhythm of 8-9 Hz that was reactive to eye opening and closure. Sleep was indicated by vertex waves and symmetric sleep spindles. Patient journal was returned and reviewed. There was no clinical events reported. Interpretation This was a normal technically limited 24hr ambulatory EEG. There was no electrographic seizures or epileptiform discharges. Clinical Correlation A normal EEG does not rule out epilepsy if there is a strong clinical suspicion. No clinical events reported.
== END | disposition home or self-care (01) ==
LOC: C.NEUR 09:17
PROVIDERS: ATTEND Psychiatry & Neurology Neurology
DX: R40.4 Transient alteration of awareness (principal)

== ENCOUNTER → 2017-04-18 | Outpatient (CLI) | payer OTHER ==
--- NOTE | 2017-04-18 08:47 | DIAGNOSTIC IMAGING REPORT ---
AORTIC ANEURYSM RETROPERI CLINICAL HISTORY: 76 years-old Male presenting with I71.4 Abdominal aortic aneurysm (AAA),. TECHNIQUE: Real-time grayscale and color and spectral Doppler ultrasound imaging of the abdominal aorta and iliac arteries was performed. COMPARISON: Renal ultrasound from 2013. FINDINGS: Proximal aorta: Patent. Transverse dimension 1.9 x 1.8 cm. Mid aorta: Patent. Transverse dimension 1.8 x 1.8 cm. Distal aorta: Focal saccular aneurysmal dilatation of the distal abdominal aorta, which previously measured 3.1 cm on prior renal ultrasound from 2013. Transverse dimension 3.1 x 2.8 cm. Right iliac artery: Patent. Transverse dimension 1.0 cm. Left iliac artery: Patent. Transverse dimension 0.9 cm. IMPRESSION: 1. Stable size of the distal saccular abdominal aortic aneurysm, measuring 3.1 cm in diameter. Electronically signed by: Sekou Milan M.D. 04/18/2017 8:45 AM Dictated Date/Time: 04/18/2017 8:40 AM
== END | disposition home or self-care (01) ==
LOC: C.ULTRBC 07:58
PROVIDERS: ATTEND Internal Medicine Geriatric Medicine
DX: I71.4 Abdominal aortic aneurysm, without rupture (principal)

== ENCOUNTER → 2017-05-23 | Outpatient (CLI) | payer OTHER ==
[2017-05-23 17:40] LABS: BLOOD UREA NITROGEN 14 mg/dl (7-18); CALCIUM 9.5 mg/dl (8.5-10.1); CARBON DIOXIDE 26 mmol/L (21-32); CREATININE 1.06 mg/dl (0.60-1.40); GLUCOSE 112 mg/dl (70-99); SODIUM 137 mmol/L (136-145)
[2017-05-24 06:11] LABS: HEMOGLOBIN A1C 7.5 % (4.5-5.6)
== END | disposition home or self-care (01) ==
LOC: C.LABPBG 15:33
PROVIDERS: ATTEND Internal Medicine Geriatric Medicine
DX: I48.0 Paroxysmal atrial fibrillation (principal); I10 Essential (primary) hypertension; E03.9 Hypothyroidism, unspecified; E11.9 Type 2 diabetes mellitus without complications

== ENCOUNTER → 2017-11-28 | Outpatient (CLI) | payer OTHER ==
[2017-11-28 10:40] LABS: BASO % 0.8 %; BASO ABS # 0.09 K/uL (0-0.2); EOS % 8.4 %; HEMATOCRIT 40.8 % (42-52); HEMOGLOBIN 12.9 g/dL (14.0-18.0); IG# 0.02 K/uL (0.00-0.02); LYMPH % 17.9 %; LYMPH ABS # 1.92 K/uL (1.2-3.4); MEAN CELL VOLUME 92.5 fL (80-100); MEAN CORPUSCULAR HEMOGLOBIN 29.3 pg (25-34); MEAN CORPUSCULAR HGB CONC 31.6 g/dl (32-36); MEAN PLATELET VOLUME 10.4 fL (7.4-10.4); MONO % 7.3 %; MONO ABS # 0.79 K/uL (0.11-0.59); NEUT % 65.4 %; NEUT ABS # 7.03 K/uL (1.4-6.5); PLATELET COUNT 285 K/uL (130-400); RED CELL DISTRIBUTION WIDTH CV 17.6 % (11.5-14.5); RED CELL DISTRIBUTION WIDTH SD 60.2 fL (36.4-46.3); WHITE BLOOD COUNT 10.75 K/uL (4.8-10.8)
[2017-11-28 10:54] LABS: HEMOGLOBIN A1C 6.3 % (4.5-5.6)
[2017-11-28 10:57] LABS: ALBUMIN 3.5 gm/dl (3.4-5.0); ALKALINE PHOSPHATASE 66 U/L (45-117); ALT/SGPT 19 U/L (12-78); AST/SGOT 16 U/L (15-37); BLOOD UREA NITROGEN 12 mg/dl (7-18); CALCIUM 8.8 mg/dl (8.5-10.1); CARBON DIOXIDE 25 mmol/L (21-32); CHOLESTEROL 125 mg/dl (0-200); CREATININE 0.92 mg/dl (0.60-1.40); GLUCOSE 141 mg/dl (70-99); LDL CHOLESTEROL CALCULATED 60 mg/dl; POTASSIUM 3.9 mmol/L (3.5-5.1); SODIUM 139 mmol/L (136-145); TOTAL PROTEIN 7.7 gm/dl (6.4-8.2)
== END | disposition home or self-care (01) ==
LOC: C.LABBC 07:51
PROVIDERS: ATTEND Internal Medicine Geriatric Medicine
DX: I48.0 Paroxysmal atrial fibrillation (principal); J45.909 Unspecified asthma, uncomplicated; I10 Essential (primary) hypertension; E78.5 Hyperlipidemia, unspecified; E55.9 Vitamin D deficiency, unspecified; E53.8 Deficiency of other specified B group vitamins; E11.9 Type 2 diabetes mellitus without complications; I71.4 Abdominal aortic aneurysm, without rupture

== ENCOUNTER 2019-01-29 08:14 | Observation (INO) ==
[2019-01-29] MEDS ORDERED: SODIUM CHLORIDE 0.9% 500 ML IV SCH (09:15)
[2019-01-29 09:20] LABS: Basophils # (auto) 0.08 K/uL (0-0.2); Basophils % (auto) 0.5 %; Eosinophils # (auto) 1.78 K/uL (0-0.5); Eosinophils % (auto) 10.8 %; Hematocrit (blood only) 44.6 % (42-52); Immature Granulocytes # (auto) 0.08 K/uL (0.00-0.02); Immature Granulocytes % (auto) 0.5 %; Lymphocytes # (auto) 3.81 K/uL (1.2-3.4); Lymphocytes % (auto) 23.2 %; Mean Corpuscular Hemoglobin 27.8 pg (25-34); Mean Corpuscular Hgb Conc 31.4 g/dL (32-36); Mean Corpuscular Volume 88.5 fL (80-100); Mean Platelet Volume 10.7 fL (7.4-10.4); Monocytes # (auto) 1.45 K/uL (0.11-0.59); Monocytes % (auto) 8.8 %; Neutrophils # (auto) 9.22 K/uL (1.4-6.5); Neutrophils % (auto) 56.2 %; Platelet Count 284 K/uL (130-400); RDW Coefficient of Variation 17.5 % (11.5-14.5); Red Blood Count 5.04 M/uL (4.7-6.1); White Blood Count 16.42 K/uL (4.8-10.8)
[2019-01-29] MEDS: SODIUM CHLORIDE 0.9% 1000ML 1,000 ML IV SCH ×2 (09:24→17:16)
[2019-01-29 09:26] LABS: Albumin Level 3.6 gm/dl (3.4-5.0); Calcium 9.2 mg/dl (8.5-10.1); Creatinine Clr Calc Pharmacy 50.7 ml/min; Est GFR (African American) 63.3; Est GFR (Non-African American) 54.7; Magnesium 2.2 mg/dl (1.8-2.4); Potassium 3.9 mmol/L (3.5-5.1)
[2019-01-29 09:29] LABS: Albumin Globulin Ratio 0.9 (0.9-2); Bilirubin,Total 0.3 mg/dl (0.2-1); Phosphorus 3.2 mg/dl (2.5-4.9); Total Protein 7.6 gm/dl (6.4-8.2)
[2019-01-29 09:30] LABS: Partial Thromboplastin Ratio 0.9; Partial Thromboplastin Time 25.3 Seconds (21.0-31.0); Prothrombin Time 10.3 Seconds (9.0-12.0)
--- NOTE | 2019-01-29 09:30 | XRay Report ---
XR chest 1V portable CLINICAL HISTORY: 78 years-old Male presenting with cough. TECHNIQUE: Portable upright AP view of the chest was obtained. COMPARISON: 02/02/2018. FINDINGS: Atherosclerosis of the aortic arch. Cardiac silhouette mildly enlarged. Heterogeneous and coarsened l alma markings. Mild pulmonary vascular prominence. Interval development of a right basilar opacity. No large effusion or pneumothorax. Osseous structures normal. IMPRESSION: 1. Right basilar infiltrate concerning for pneumonia, aspiration, or atelectasis. 2. Mild cardiomegaly. Mild volume overload may be present without significant congestive change. Electronically signed by: Sekou Milan M.D. 01/29/2019 9:29 AM
--- NOTE | 2019-01-29 10:04 | CT Scan Report ---
CT SCAN OF THE BRAIN WITHOUT IV CONTRAST CLINICAL HISTORY: Seizure. COMPARISON STUDY: CT of the brain dated 02/02/2018. TECHNIQUE: Unenhanced axial CT scan of the brain is performed from the vertex to the skull base. A do se lowering technique was utilized adhering to the principles of ALARA. CT DOSE: 614.27 mGy.cm FINDINGS: Brain parenchyma: There are age-related involutional changes noting mild to moderate subcortical and periventricular microangiopathic change. There is no hemorrhage, mass effect, or evidence of acute t erritorial ischemia by CT criteria. Rhodes-white matter differentiation is preserved. No extra-axial fl uid collection is seen. Ventricles, sulci, cisterns: Prominent secondary to involutional change. Intracranial vasculature: There is atherosclerotic calcification of the cavernous carotid and vertebr al arteries. Calvarium: Unremarkable. Sinuses and mastoids: There is mild mucosal thickening and fluid within the left maxillary antrum. Mi ld mucosal thickening is also seen within the right maxillary antrum, the frontal sinuses, and the ri ght seen on sinus. There is subtotal opacification of the ethmoid sinuses and the left sphenoid sinus . The mastoid air cells are well pneumatized. Orbits: The bony orbits are grossly intact. There are bilateral ocular lens implants. IMPRESSION: 1. There is no hemorrhage, mass effect, or evidence of acute territorial ischemia by CT criteria. 2. Paranasal sinus disease as above. Correlate clinically for evidence of acute sinusitis. Electronically signed by: Eze Chairez M.D. 01/29/2019 10:02 AM
[2019-01-29] MEDS ORDERED: DOXYCYCLINE HYCLATE 100 MG CAP PO STA (11:09)
--- NOTE | 2019-01-29 12:53 | History & Physical Report ---
Date of Service January 29, 2019 Assessment & Plan (1) Observed seizure-like activity: No prior hx of seizures, describes post-ictal fatigue ?? related to PNA/sinusitis vs BS issue EEG pending CT head noted for sinusitis Neuro c/s pending TSH pending Electrolytes WNL (2) PNA (pneumonia): Started on amoxicillin by urgent care Will change to doxy to cover for sinusitis as well Elevated WBC, could also be related to seizure (3) Acute sinusitis: Noted on CT head Doxycycline started 01/29 Elevated WBC, could also be related to seizure (4) COPD, moderate: continue home meds HS O2 2L (5) Depression: continue home meds (6) Dyslipidemia: continue home meds (7) Hypertension: continue home meds (8) Hypothyroidism (acquired): continue home meds (9) Type 2 diabetes mellitus: continue home meds SSI PRN (10) Paroxysmal atrial fibrillation: continue home meds, eliquis (11) Benign prostatic hyperplasia with urinary obstruction: continue home meds (12) DVT prophylaxis: Eliquis History of Present Illness Primary Care Provider: Lorna Tucker, 78 y/o M who was brought to the ED for possible seizure. Family is not present during my discussion with pt. Pt states that his noted that he was shaking in bed this AM. He is not sure of the time, but states it woke her up. He states that he was told he was not really conscious for about 5-10 minutes after this. He does not remember any of this. He states that after this happened he went back to sleep until around 11, which is not usual for him. He states that he feels at his usual now. "I feel fine." Pt denies prior hx of seizures. Pt was seen at an urgent care 3-4 days ago for a cough and was dx with PNA. He has been on amoxcillin since that time. He states he has been eating and drinking at his usual. He states his cough is better on abx. He has not had SOB. He uses O2 HS only and has not needed more O2 lately. Pt denies fever, chest pain, abd pain, n/v/c/d, LE pain or swelling. Allergies Allergy/AdvReac Type Severity Reaction Status Date / Time No Known Drug Allergies Allergy Mild . Verified 01/29/19 09:12 pollen extracts Allergy Mild CONGESTION Verified 01/29/19 09:12 Home Medications Home Medications Medication Instructions Recorded Confirmed Type apixaban [Eliquis] 5 mg PO BID 02/02/18 01/29/19 History aspirin [Aspir-81] 81 mg PO BID 02/02/18 01/29/19 History sertraline [Zoloft] 50 mg PO QAM 02/02/18 01/29/19 History cyanocobalamin (vit B-12) 1,000 1,000 mcg PO QAM #180 tab 10/22/18 01/29/19 Rx mcg tablet metformin 1,000 mg tablet 1,000 mg PO BID #180 tab 10/22/18 01/29/19 Rx lisinopril 20 mg tablet 20 mg PO QAM #90 tab 11/07/18 01/29/19 Rx atorvastatin 40 mg tablet 40 mg PO DAILY #90 tab 01/02/19 01/29/19 Rx montelukast 10 mg tablet See Rx Instructions .ROUTE 01/02/19 01/29/19 Rx .COMPLEX #90 tablet albuterol sulfate HFA 90 2 puffs INH Q4H PRN gm 01/16/19 01/29/19 History mcg/actuation aerosol inhaler calcium carbonate 600 mg (1,500 2 tab PO DAILY 01/16/19 01/29/19 History mg)-vitamin D3 400 unit tablet albuterol sulfate 2.5 mg/3 mL 2.5 mg INH QID PRN #90 ml 01/18/19 01/29/19 Rx (0.083 %) solution for nebulization cholecalciferol (vitamin D3) 4,000 unit PO DAILY 01/29/19 01/29/19 History [Vitamin D3] diltiazem HCl [Cartia XT] 120 mg PO BID 01/29/19 01/29/19 History [id number]-[id number]-[id number] 1 inh INHALATION DAILY 01/29/19 01/29/19 History [Trelegy Ellipta] glimepiride 2 mg PO BID 01/29/19 01/29/19 History levothyroxine 25 mcg PO DAILY 01/29/19 01/29/19 History Past Med/Surg History Medical History Abdominal aortic aneurysm (AAA), 30-34 mm diameter (Chronic) Anemia (Chronic) Arteriosclerotic coronary artery disease (Chronic) 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, moderate (Chronic) Chronic anticoagulation (Chronic) Chronic rhinitis (Chronic) Depression (Chronic) Dyslipidemia (Chronic) Hypertension (Chronic) Hypothyroidism (acquired) (Chronic) Mild cognitive impairment (Chronic) Nocturnal hypoxia (Chronic) Osteoporosis (Chronic) Tinnitus of both ears (Chronic) Tubular adenoma of colon (Chronic) Type 2 diabetes mellitus (Chronic) Vitamin B12 deficiency (Chronic) Vitamin D deficiency (Chronic) Asthma (Chronic) Atrial flutter Paroxysmal atrial fibrillation (Chronic) TIA (transient ischemic attack) Pneumonia (Resolved) Surgical History H/O Mohs micrographic surgery for skin cancer Family History Other COPD (chronic obstructive pulmonary disease) Depression Family history non-contributory Social History Preferred Language: Bel[place]ian Communication Ability: Effective Visual Impairment: No Limitations Hearing Ability: Use of Hearing Aid Beliefs That Will Affect Care: None marital status: Current Living Situation: Spouse current occupational status: retired 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, 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[employer] Other Information That Helps Us Care for You: No Feels Safe at Home: Yes Safety Concerns: Feels Safe At This Time Smoking Status: Former smoker Number of Years Since Quit: 34 ; Hx Alcohol Use: No Hx Substance Use: No Childhood Exposure to Second-Hand Smoke: Yes caffeine: No Dental Care, Regularly: No Physical Activity Frequency: Does not Exercise Seatbelt Use: always Review of Systems Review of Systems: Pertinent positives and negatives reviewed in HPI--all others negative Physical Exam Constitutional: WD/WN, vitals as above Eyes: normal visual jefferson by confrontation and + anicteric sclerae Neck: normal visual inspection and trachea midline Respiratory: normal respiratory effort; no respiratory distress Auscultation: + diminished lung sounds and + crackles; no wheezes Cardiovascular: Rate/Rhythm: regular rate; + abnormal rhythm Gastrointestinal (Abdomen): Inspection/Auscultation: abdomen not distended Percussion/Palpation: abdomen soft; abdomen nontender Musculoskeletal: Head/Neck/Chest: normocephalic and head atraumatic negative for edema, peripheral pulses intact Skin: no rashes, warm and dry Neurologic: awake; not confused Speech / Cognition: normal speech Psychiatric: A+Ox3, euthymic affect Results & Data Vital Signs (Past 12 Hours) Vital Signs Temp Pulse Resp BP Pulse Ox 01/29/19 12:30 78 28 H 98 01/29/19 12:01 73 19 121/81 97 01/29/19 12:00 68 17 97 01/29/19 11:49 84 20 135/85 96 01/29/19 11:31 74 18 136/83 98 01/29/19 11:30 73 14 98 01/29/19 11:27 82 19 118/79 98 01/29/19 11:01 82 19 128/76 97 01/29/19 11:00 80 24 97 01/29/19 10:31 77 18 130/78 97 01/29/19 10:07 71 15 131/80 98 01/29/19 09:31 81 20 125/83 97 01/29/19 09:01 75 16 120/68 97 01/29/19 08:31 79 20 119/74 96 01/29/19 08:28 96 01/29/19 08:27 36.8 C 76 20 127/[address] head: acute sinusitis CXR: PNA ECG Rhythm: atrial fibrillation Code Status & VTE Plan Code Status Full code VTE Prophylaxis Plan VTE Prophylaxis will be ordered: Yes PG Care Time/CCT Total # of Minutes Spent Total Time Spent with Patient: Total time spent is greater than 50% in coordination of care (as documented) at patient's floor/unit and/or counseling patient:
[2019-01-29] MEDS ORDERED: LORazepam 2 MG/4 ML VIAL ONE (12:59)
[2019-01-29] MEDS ORDERED: LORazepam 2 MG/4 ML VIAL IV STA (13:02)
[2019-01-29] MEDS ORDERED: levETIRAcetam 1,500 MG in DEXTROSE 5% 100 ML IV STA (13:02)
--- NOTE | 2019-01-29 14:32 | Emergency Department Note ---
Entered by Darrel Lyon acting as a scribe for Amy Khalil MD History of Present Illness General Chief complaint: Seizure Stated complaint: seizure Source: patient History of Present Illness Provider complaint: Seizure Onset (ago): hour(s) 2 Location: head Pain Consistency: + other (Episodic) Relieved By: + none Exacerbated By: + none Associated symptoms: + cough and + other (Bladder incontinence ); no fever/chills, no headaches and no nausea/vomiting The patient is a 78 year old male who presents to the Emergency Room after having a seizure episode about 2 hours prior to arrival. Per the patient's , she found him lying on the bed with his full body shaking and his arms stiff. She notes that the episode lasted for about 5-10 minutes but per EMS the patient was postictal for about 20 minutes. The patient was not foaming out of the mouth during the incident but he did slightly bite his tongue and had bladder incontinence. The patient adds that prior to the episode this morning he has had a persistent productive cough where he is coughing up phlegm but no blood. The patient has an extensive cardiac history including 6 coronary stents and Afib so he is on Eliquis, however he did not take this morning's dose. The patient denies any headaches, visual changes, vomiting, or fevers. The patient also has a history of TIAs, COPD, DM, and HTN but no history of seizures. The patient add s that he received his flu vaccine last week. The patient mentioned that he is currently on amoxicillin for his lung issues. The patient has no history of excessive alcohol use but was a former smoker. Home Medications Home Medications Medication Instructions Recorded Confirmed Type apixaban [Eliquis] 5 mg PO BID 02/02/18 01/29/19 History aspirin [Aspir-81] 81 mg PO BID 02/02/18 01/29/19 History sertraline [Zoloft] 50 mg PO QAM 02/02/18 01/29/19 History cyanocobalamin (vit B-12) 1,000 1,000 mcg PO QAM #180 tab 10/22/18 01/29/19 Rx mcg tablet metformin 1,000 mg tablet 1,000 mg PO BID #180 tab 10/22/18 01/29/19 Rx lisinopril 20 mg tablet 20 mg PO QAM #90 tab 11/07/18 01/29/19 Rx atorvastatin 40 mg tablet 40 mg PO DAILY #90 tab 01/02/19 01/29/19 Rx montelukast 10 mg tablet See Rx Instructions .ROUTE 01/02/19 01/29/19 Rx .COMPLEX #90 tablet albuterol sulfate HFA 90 2 puffs INH Q4H PRN gm 01/16/19 01/29/19 History mcg/actuation aerosol inhaler calcium carbonate 600 mg (1,500 2 tab PO DAILY 01/16/19 01/29/19 History mg)-vitamin D3 400 unit tablet albuterol sulfate 2.5 mg/3 mL 2.5 mg INH QID PRN #90 ml 01/18/19 01/29/19 Rx (0.083 %) solution for nebulization cholecalciferol (vitamin D3) 4,000 unit PO DAILY 01/29/19 01/29/19 History [Vitamin D3] diltiazem HCl [Cartia XT] 120 mg PO BID 01/29/19 01/29/19 History icaealpkrdj-[id number]-[id number] 1 inh INHALATION DAILY 01/29/19 01/29/19 History [Trelegy Ellipta] glimepiride 2 mg PO BID 01/29/19 01/29/19 History levothyroxine 25 mcg PO DAILY 01/29/19 01/29/19 History Allergies Allergy/AdvReac Type Severity Reaction Status Date / Time No Known Drug Allergies Allergy Mild . Verified 01/29/19 09:12 pollen extracts Allergy Mild CONGESTION Verified 01/29/19 09:12 Past Med/Surg History Medical History Abdominal aortic aneurysm (AAA), 30-34 mm diameter (Chronic) Anemia (Chronic) Arteriosclerotic coronary artery disease (Chronic) 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, moderate (Chronic) Chronic anticoagulation (Chronic) Chronic rhinitis (Chronic) Depression (Chronic) Dyslipidemia (Chronic) Hypertension (Chronic) Hypothyroidism (acquired) (Chronic) Mild cognitive impairment (Chronic) Nocturnal hypoxia (Chronic) Osteoporosis (Chronic) Tinnitus of both ears (Chronic) Tubular adenoma of colon (Chronic) Type 2 diabetes mellitus (Chronic) Vitamin B12 deficiency (Chronic) Vitamin D deficiency (Chronic) Asthma (Chronic) Atrial flutter Paroxysmal atrial fibrillation (Chronic) TIA (transient ischemic attack) Pneumonia (Resolved) Surgical History H/O Mohs micrographic surgery for skin cancer Family History Other COPD (chronic obstructive pulmonary disease) Depression Family history non-contributory Social History Preferred Language: Burmese Communication Ability: Effective Visual Impairment: No Limitations Hearing Ability: Use of Hearing Aid Beliefs That Will Affect Care: None marital status: Current Living Situation: Spouse current occupational status: retired 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 and A total of 10 systems reviewed and were otherwise negative Physical Exam Vital Signs Vital Signs - 24 hr 01/29/19 08:27 01/29/19 08:28 01/29/19 08:31 Temperature 36.8 C Temperature Source Oral Sepsis Recent Fever Within 48 Hours No Sepsis New/Unexplained Change in Mental Status No Sepsis Action Taken by Nursing No Action Required Pulse Rate 76 79 Pulse Rate from SpO2 Sensor 84 Respiratory Rate 20 20 Respiratory Effort / Characteristics Respiratory Depth Respiratory Pattern Blood Pressure 127/69 119/74 Blood Pressure Mean 88 89 Pulse Oximetry 88 L 96 96 Oxygen Delivery Method Room Air Nasal Cannula Nasal Cannula Oxygen Flow Rate 2 2 01/29/19 09:01 01/29/19 09:31 01/29/19 10:07 Temperature Temperature Source Sepsis Recent Fever Within 48 Hours Sepsis New/Unexplained Change in Mental Status Sepsis Action Taken by Nursing Pulse Rate 75 81 71 Pulse Rate from SpO2 Sensor 79 77 71 Respiratory Rate 16 20 15 Respiratory Effort / Characteristics Respiratory Depth Respiratory Pattern Blood Pressure 120/68 125/83 131/80 Blood Pressure Mean 85 97 97 Pulse Oximetry 97 97 98 Oxygen Delivery Method Oxygen Flow Rate 2 01/29/19 10:31 01/29/19 11:00 01/29/19 11:01 Temperature Temperature Source Sepsis Recent Fever Within 48 Hours Sepsis New/Unexplained Change in Mental Status Sepsis Action Taken by Nursing Pulse Rate 77 80 82 Pulse Rate from SpO2 Sensor 79 74 81 Respiratory Rate 18 24 19 Respiratory Effort / Characteristics Respiratory Depth Respiratory Pattern Blood Pressure 130/78 128/76 Blood Pressure Mean 95 93 Pulse Oximetry 97 97 97 Oxygen Delivery Method Oxygen Flow Rate 2 01/29/19 11:23 01/29/19 11:27 01/29/19 11:30 Temperature Temperature Source Sepsis Recent Fever Within 48 Hours Sepsis New/Unexplained Change in Mental Status Sepsis Action Taken by Nursing Pulse Rate 82 73 Pulse Rate from SpO2 Sensor 82 75 Respiratory Rate 19 14 Respiratory Effort / Characteristics Non-Labored Spontaneous Respiratory Depth Normal Respiratory Pattern Regular Blood Pressure 118/79 Blood Pressure Mean 92 Pulse Oximetry 98 98 Oxygen Delivery Method Nasal Cannula Oxygen Flow Rate 2 01/29/19 11:31 01/29/19 11:49 01/29/19 12:00 Temperature Temperature Source Sepsis Recent Fever Within 48 Hours Sepsis New/Unexplained Change in Mental Status Sepsis Action Taken by Nursing Pulse Rate 74 84 68 Pulse Rate from SpO2 Sensor 78 83 67 Respiratory Rate 18 20 17 Respiratory Effort / Characteristics Respiratory Depth Respiratory Pattern Blood Pressure 136/83 135/85 Blood Pressure Mean 100 101 Pulse Oximetry 98 96 97 Oxygen Delivery Method Oxygen Flow Rate 01/29/19 12:01 01/29/19 12:30 01/29/19 12:31 Temperature Temperature Source Sepsis Recent Fever Within 48 Hours Sepsis New/Unexplained Change in Mental Status Sepsis Action Taken by Nursing Pulse Rate 73 78 77 Pulse Rate from SpO2 Sensor 80 80 74 Respiratory Rate 19 28 H 17 Respiratory Effort / Characteristics Respiratory Depth Respiratory Pattern Blood Pressure 121/81 137/83 Blood Pressure Mean 94 101 Pulse Oximetry 97 98 98 Oxygen Delivery Method Oxygen Flow Rate Vital signs reviewed. General: Elderely, well-appearing 78 year old male, in no significant distress on [place] oxygen. HEENT: No scleral icterus, PERRLA, neck supple. Atraumatic. Ecchymosis to the bilateral anterior tongue. Cardiovascular: Regular rate and rhythm, no extra sounds. Diminished heart sounds bilaterally. Pulmonary: Clear to auscultation bilaterally, normal work of breathing. Abdomen: Soft, nontender, nondistended, positive bowel sounds. Musculoskeletal: Atraumatic, no peripheral edema. Neurologic: Patient awake alert and oriented x 3, full strength in all 4 extremities. Cranial nerves 2 through 12 grossly intact. Negative pronator drift. Intact finger to nose. Skin: Warm, dry, no rash Course 0910: Past medical records reviewed. The patient was evaluated in room A03, and a complete history and physical examination were performed. 1117: I spoke to Dr. Andrew Harrison [facility] [place] Hospitalist about the patient's case. She is going to accept the patient for further evaluation. 1122: I reevaluated the patient and updated her on results. We also discussed the treatment plan and she agreed. 1258: The patient had a seizure while still in the ED so I placed a nasopharyngeal airway. Consultations Consultation #1: I spoke to Dr. Andrew Harrison [facility] [place] Hospitalist about the patient's case. She is going to accept the patient for further evaluation. Time: 11:17 Administered Medications Sodium Chloride (Nss 1000ml) 1,000 mls @ 125 mls/hr IV .Q8H PATO Stop: 02/28/19 09:14 Last Admin: 01/29/19 09:24 Dose: 125 mls/hr Documented by: [id number] Discontinued Medications Doxycycline Hyclate (Vibramycin) 100 mg PO NOW STA Stop: 01/29/19 11:10 Last Admin: 01/29/19 11:56 Dose: 100 mg Documented by: [id number] Sodium Chloride (Nss) 500 mls @ 999 mls/hr IV .Q31M PATO Stop: 01/29/19 09:45 Last Infusion: 01/29/19 09:55 Dose: 0 mls/hr Documented by: [id number] Admin: 01/29/19 09:24 Dose: 999 mls/hr Documented by: [id number] Levetiracetam 1,500 mg/ (Dextrose) 115 mls @ 440 mls/hr IV NOW STA Stop: 01/29/19 13:17 Last Infusion: 01/29/19 14:03 Dose: 0 mls/hr Documented by: [id number] Admin: 01/29/19 13:18 Dose: 440 mls/hr Documented by: [id number] Lorazepam (Ativan) 2 mg in 4 mls @ 4 mls/min IV NOW STA Stop: 01/29/19 13:03 Last Admin: 01/29/19 13:03 Dose: 4 mls/min Documented by: [id number] Lorazepam (Ativan) Confirm Administered Dose 2 mg .ROUTE .STK-MED ONE Stop: 01/29/19 13:00 Last Admin: 01/29/19 13:03 Dose: Not Given Documented by: [id number] Medical Decision Making Differential Diagnosis Differential diagnosis includes etiologies such as infection, hypoglycemia, electrolyte abnormalities, cardiac sources, intracerebral event, trauma, toxicologic, neurologic, as well as others were entertained. Medical Records Attestation: I reviewed the patient's medical records. Home Medications Current Medication List: was personally reviewed by me Laboratory Data Attestation: I reviewed the patient's lab results. Result diagrams: 01/29/19 07:20 01/29/19 07:20 Lab Results 01/29/19 01/29/19 01/29/19 Range/Units 07:20 07:20 07:20 WBC 16.42 H (4.8-10.8) K/uL RBC 5.04 (4.7-6.1) M/uL Hgb 14.0 (14.0-18.0) g/dL Hct 44.6 (42-52) % MCV 88.5 (80-100) fL MCH 27.8 (25-34) pg MCHC 31.4 L (32-36) g/dL RDW Std Deviation 57.0 H (36.4-46.3) fL RDW Coeff of Ashu 17.5 H (11.5-14.5) % Plt Count 284 (130-400) K/uL MPV 10.7 H (7.4-10.4) fL Immature Gran % (Auto) 0.5 % Neut % (Auto) 56.2 % Lymph % (Auto) 23.2 % [place]ug[place] % (Auto) 8.8 % Eos % (Auto) 10.8 % Baso % (Auto) 0.5 % Immature Gran # (Auto) 0.08 H (0.00-0.02) K/uL Neut # (Auto) 9.22 H (1.4-6.5) K/uL Lymph # (Auto) 3.81 H (1.2-3.4) K/uL [place]ug[place] # (Auto) 1.45 H (0.11-0.59) K/uL Eos # (Auto) 1.78 H (0-0.5) K/uL Baso # (Auto) 0.08 (0-0.2) K/uL PT 10.3 (9.0-12.0) Seconds INR 1.0 (0.9-1.1) APTT 25.3 (21.0-31.0) Seconds PTT Ratio 0.9 Sodium 139 (136-145) mmol/L Potassium 3.9 (3.5-5.1) mmol/L Chloride 104 (98-107) mmol/L Carbon Dioxide 18 L (21-32) mmol/L Anion Gap 17.0 H (3-11) BUN 14 (7-18) mg/dl Creatinine 1.26 (0.6-1.4) mg/dl Est Cr Clr Drug Dosing 50.7 ml/min Est GFR ( Amer) 63.3 Est GFR (Non-Af Amer) 54.7 BUN/Creatinine Ratio 11.0 (10-20) Glucose 200 H (70-99) mg/dl Calcium 9.2 (8.5-10.1) mg/dl Phosphorus 3.2 (2.5-4.9) mg/dl Magnesium 2.2 (1.8-2.4) mg/dl Total Bilirubin 0.3 (0.2-1) mg/dl AST 17 (15-37) U/L ALT 18 (12-78) U/L Alkaline Phosphatase 85 (45-117) U/L Total Protein 7.6 (6.4-8.2) gm/dl Albumin 3.6 (3.4-5.0) gm/dl Globulin 4.0 (2.5-4.0) gm/dl Albumin/Globulin Ratio 0.9 (0.9-2) Imaging Data Radiologist's Impression: Radiology results as stated below per my review and the radiologist's interpretation: XR chest 1V portable CLINICAL HISTORY: 78 years-old Male presenting with cough. TECHNIQUE: Portable upright AP view of the chest was obtained. COMPARISON: 02/02/2018. FINDINGS: Atherosclerosis of the aortic arch. Cardiac silhouette mildly enlarged. Heterogeneous and coarsened lung markings. Mild pulmonary vascular prominence. Interval development of a right basilar opacity. No large effusion or pneumothorax. Osseous structures normal. IMPRESSION: 1. Right basilar infiltrate concerning for pneumonia, aspiration, or atelectasis. 2. Mild cardiomegaly. Mild volume overload may be present without significant congestive change. Electronically signed by: Sekou Milan M.D. 01/29/2019 9:[address] SCAN OF THE BRAIN WITHOUT IV CONTRAST CLINICAL HISTORY: Seizure. COMPARISON STUDY: CT of the brain dated 02/02/2018. TECHNIQUE: Unenhanced axial CT scan of the brain is performed from the vertex to the skull base. A dose lowering technique was utilized adhering to the principles of ALARA. CT DOSE: 614.27 mGy.cm FINDINGS: Brain parenchyma: There are age-related involutional changes noting mild to moderate subcortical and periventricular microangiopathic change. There is no hemorrhage, mass effect, or evidence of acute territorial ischemia by CT criteria. Rhodes-white matter differentiation is preserved. No extra-axial fluid collection is seen. Ventricles, sulci, cisterns: Prominent secondary to involutional change. Intracranial vasculature: There is atherosclerotic calcification of the cavernous carotid and vertebral arteries. Calvarium: Unremarkable. Sinuses and mastoids: There is mild mucosal thickening and fluid within the left maxillary antrum. Mild mucosal thickening is also seen within the right maxillary antrum, the frontal sinuses, and the right seen on sinus. There is subtotal opacification of the ethmoid sinuses and the left sphenoid sinus. The m astoid air cells are well pneumatized. Orbits: The bony orbits are grossly intact. There are bilateral ocular lens implants. IMPRESSION: 1. There is no hemorrhage, mass effect, or evidence of acute territorial ischemia by CT criteria. 2. Paranasal sinus disease as above. Correlate clinically for evidence of acute sinusitis. Electronically signed by: Eze Chairez M.D. 01/29/2019 10:02 AM ECG Data Attestation: I personally reviewed and interpreted this ECG as follows: Indication: other (Seizure) Rate (beats per minute): 71 Rhythm: atrial fibrillation Findings: + other (LVH); no PAC, no PVC and no ectopy Blood Pressure Blood Pressure Findings: Elevated blood pressure Blood Pressure Disposition: Referred to patients primary care provider MDM Narrative This patient was evaluated and appeared to be in no significant distress. Patient's family was at the bedside. Sounds as though the patient had a tonic- clonic seizure. This would be the patient's first. IV access was obtained and laboratory work was drawn. Patient was placed on the bus driver/monitor and seizure precautions were maintained. Patient was hydrated with normal saline solution. Chest x-ray was performed and reveals a right basilar infiltrate. Head CT reveals a likely sinusitis, but no evidence of acute intracranial abnormality. Patient was given doxycycline 100 mg p.o. A leukocytosis of 16 is noted with an anion gap of 17. I suspect this is due to the patient's somewhat hyperventilatory state post seizure. Patient's case was discussed with the hospitalist service. Patient was in the emergency department for several hours. He did have a seizure episode for which I was called to the bedside. Patient was repositioned and placed on oxygen mask. Patient was given 2 mg of IV Ativan and a nasopharyngeal airway was placed by myself. 1500 mg of IV Keppra was ordered. Dr. Morales did present at the bedside as well. Impression & Plan Seizure, Pneumonia Discharge Plan Visit Data *Final* Discharge Date/Time: 01/29/19 14:13 Chief Complaint: Seizure Stated Complaint: seizure ED Provider: Amy Khalil Discharge Problem: Seizure, Pneumonia Patient Disposition: Admitted As Inpatient Discharge Instructions Interventions: ED Discharge Assessment Last Done: 01/29/19 14:13 Discharge Problem: Pneumonia Qualifiers: Pneumonia type: due to unspecified organism Laterality: right Lung location: lower lobe of lung Qualified Code(s): J18.1 - Lobar pneumonia, unspecified organism The scribe's documentation has been prepared under my direction and personally reviewed by me in its entirety. I confirm that the note above accurately reflects all work, treatment, procedures, and medical decision making performed by me.
[2019-01-29] MEDS ORDERED: ALBUTEROL 0.083% NEBU SOLN 3 ML VIAL INH PRN (15:05)
[2019-01-29] MEDS ORDERED: CARBOHYDRATES FOR HYPOGLYCEMIA PO PRN (15:05)
[2019-01-29] MEDS ORDERED: ALBUTEROL HFA 8 GM INHALER INH PRN (15:05)
[2019-01-29] MEDS ORDERED: MAGNESIUM HYDROXIDE SUSP 30 ML UDC PO PRN (15:05)
[2019-01-29] MEDS ORDERED: GLUCOSE 40% GEL 15 GM TUBE PO PRN (15:05)
[2019-01-29] MEDS ORDERED: ACETAMINOPHEN 325 MG TAB PO PRN (15:05)
[2019-01-29] MEDS ORDERED: DEXTROSE 50% 50 ML SYRINGE IV PRN (15:05)
[2019-01-29] MEDS ORDERED: GLUCAGON FOR INJ 1 MG VIAL SQ PRN (15:05)
[2019-01-29] MEDS ORDERED: ONDANSETRON INJ 2 MG/ML 2 ML VIAL IV PRN (15:05)
[2019-01-29] MEDS ORDERED: GLUCOSE 10 TABS/TUBE PO PRN (15:05)
[2019-01-29] MEDS ORDERED: LORazepam 0.5 MG/1 ML VIAL IV PRN (15:48)
[2019-01-29] MEDS: cefTRIAXone SODIUM 1,000 MG in DEXTROSE 5% 50 ML IV SCH (17:15)
[2019-01-29] MEDS: INSULIN ASPART 100 UNITS/ML 3 ML PEN SC SCH ×2 (17:22→21:49)
[2019-01-29] MEDS: METFORMIN HCL 500 MG TAB PO SCH (17:24)
[2019-01-29] MEDS: LACTOBACILLUS ACIDOPHILUS (FLORANEX) TAB PO SCH ×2 (17:24→21:36)
[2019-01-29] MEDS: GLIMEPIRIDE 2 MG TAB PO SCH (21:34)
[2019-01-29] MEDS: ASPIRIN 81 MG ECTAB PO SCH (21:35)
[2019-01-29] MEDS: dilTIAZem HCL 120 MG CAPCR PO SCH (21:35)
[2019-01-29] MEDS: APIXABAN 5 MG TABLET PO SCH (21:36)
[2019-01-30] MEDS: SODIUM CHLORIDE 0.9% 1000ML 1,000 ML IV SCH ×2 (01:16→09:45)
[2019-01-30] MEDS ORDERED: LEVOTHYROXINE SODIUM 25 MCG TABLET PO SCH (06:30)
[2019-01-30 06:57] LABS: Basophils # (auto) 0.07 K/uL (0-0.2); Basophils % (auto) 0.7 %; Eosinophils # (auto) 1.31 K/uL (0-0.5); Eosinophils % (auto) 12.7 %; Hematocrit (blood only) 43.1 % (42-52); Hemoglobin 13.8 g/dL (14.0-18.0); Immature Granulocytes # (auto) 0.02 K/uL (0.00-0.02); Immature Granulocytes % (auto) 0.2 %; Lymphocytes % (auto) 18.5 %; Mean Corpuscular Hemoglobin 27.9 pg (25-34); Mean Corpuscular Volume 87.1 fL (80-100); Monocytes % (auto) 10.7 %; Neutrophils # (auto) 5.88 K/uL (1.4-6.5); Neutrophils % (auto) 57.2 %; Platelet Count 230 K/uL (130-400); RDW Coefficient of Variation 17.5 % (11.5-14.5); RDW Standard Deviation 55.6 fL (36.4-46.3); Red Blood Count 4.95 M/uL (4.7-6.1); White Blood Count 10.28 K/uL (4.8-10.8)
[2019-01-30 07:39] LABS: BUN Creatinine Ratio 8.4 (10-20); Calcium 8.2 mg/dl (8.5-10.1); Est GFR (African American) 96.9; Est GFR (Non-African American) 83.6; Estimated Average Glucose 151 mg/dl; Hemoglobin A1C 6.9 % (4.5-5.6); Potassium 3.5 mmol/L (3.5-5.1)
[2019-01-30 07:48] LABS: Thyroid Stimulating Hormone 2.37 uIu/ml (0.300-4.500)
[2019-01-30] MEDS: APIXABAN 5 MG TABLET PO SCH (08:00)
[2019-01-30] MEDS: dilTIAZem HCL 120 MG CAPCR PO SCH (08:00)
[2019-01-30] MEDS: GLIMEPIRIDE 2 MG TAB PO SCH (08:01)
[2019-01-30] MEDS: ASPIRIN 81 MG ECTAB PO SCH (08:02)
[2019-01-30] MEDS: METFORMIN HCL 500 MG TAB PO SCH (08:02)
[2019-01-30] MEDS: LACTOBACILLUS ACIDOPHILUS (FLORANEX) TAB PO SCH ×2 (08:03→12:33)
[2019-01-30] MEDS ORDERED: AZITHROMYCIN 250 MG TAB PO ONE (08:45)
[2019-01-30] MEDS: INSULIN ASPART 100 UNITS/ML 3 ML PEN SC SCH ×2 (08:51→12:32)
[2019-01-30] MEDS ORDERED: ATORVASTATIN 40 MG TAB PO SCH (09:00)
[2019-01-30] MEDS ORDERED: MONTELUKAST SODIUM 10 MG TABLET PO SCH (09:00)
[2019-01-30] MEDS ORDERED: CALCIUM 600MG + VIT D 400 IU TAB PO SCH (09:00)
[2019-01-30] MEDS ORDERED: CYANOCOBALAMIN 500 MCG TABLET (VITAMIN B-12) PO SCH (09:00)
[2019-01-30] MEDS ORDERED: SERTRALINE HCL 50 MG TABLET PO SCH (09:00)
[2019-01-30] MEDS ORDERED: lisinopriL 20 MG TAB PO SCH (09:00)
[2019-01-30] MEDS ORDERED: CHOLECALCIFEROL 1,000 UNITS TAB PO SCH (09:00)
--- NOTE | 2019-01-30 12:11 | Neurology Consultation ---
Date of Consultation January 30, 2019 Assessment & Plan (1) Seizure: Generalized convulsive seizures potentially starting as a focal motor seizure originating from the right cerebral hemisphere based on reported semiology as observed by his spouse. Risk factors for seizures of focal onset would include this patient's history of right frontal cavernoma which was last observed on an MRI done last January. His EEG completed this morning suggest a mild encephalopathy as well as some focal slowing localizing to the left cerebral hemisphere. No epileptiform abnormalities were observed, however. Given that this patient has had multiple generalized seizures I would recommend continuing anticonvulsant therapy with levetiracetam. I would recommend levetiracetam 1000 mg twice daily for the time being which can be given as an oral tablet. I would also recommend obtaining an up-to-date brain MRI with and without contrast, seizure protocol. History of Present Illness Reason for Consultation: Seizure Requesting Physician: Shannon Morales DO Attending Physician: Maximino Izaguirre DO History of Present Illness The patient is a 78-year-old male who had a witnessed convulsive episode occurring about 2 hours prior to his assessment in the emergency department. The episode was witnessed by his spouse who reports that his left arm stiffened and was elevated out of the bed and was shaking. He also exhibited some generalized shaking of the limbs with associated unresponsiveness. The episode persisted for about 5 to 10 minutes and was followed by a period of confusion which persisted for another 20 minutes. There was an associated tongue bite and urinary incontinence as well. The patient reportedly had another similar episode that was witnessed while in the emergency department characterized by rigidity and shaking of the limbs with associated alteration in awareness. He was treated with an IV loading dose of 1500 mg of levetiracetam. Past medical history notable for several episodes of confusion and slurred speech that occurred in January 2018. History notable for atrial fibrillation for which the patient takes an anticoagulant. Of interest, a brain MRI completed at that time, last January, did reveal a 5 mm right frontal lobe cavernoma that was unchanged from previous studies. I reviewed the images as well as the radiologist interpretation of this test. A CT of the head completed in the emergency department was unremarkable, no evidence of hemorrhage or other acute process. I reviewed these images as well. Currently, the patient is lying comfortably in bed, his spouse is at bedside. He does not have any specific complaints at this time although admits that his memory has been slightly poor. He is otherwise appropriate and in no acute distress. Additional details as below. Allergies Allergy/AdvReac Type Severity Reaction Status Date / Time No Known Drug Allergies Allergy Mild . Verified 01/29/19 09:12 pollen extracts Allergy Mild CONGESTION Verified 01/29/19 09:12 Home Medications Home Medications Medication Instructions Recorded Confirmed Type apixaban [Eliquis] 5 mg PO BID 02/02/18 01/29/19 History aspirin [Aspir-81] 81 mg PO BID 02/02/18 01/29/19 History sertraline [Zoloft] 50 mg PO QAM 02/02/18 01/29/19 History cyanocobalamin (vit B-12) 1,000 1,000 mcg PO QAM #180 tab 10/22/18 01/29/19 Rx mcg tablet metformin 1,000 mg tablet 1,000 mg PO BID #180 tab 10/22/18 01/29/19 Rx lisinopril 20 mg tablet 20 mg PO QAM #90 tab 11/07/18 01/29/19 Rx atorvastatin 40 mg tablet 40 mg PO DAILY #90 tab 01/02/19 01/29/19 Rx montelukast 10 mg tablet See Rx Instructions .ROUTE 01/02/19 01/29/19 Rx .COMPLEX #90 tablet albuterol sulfate HFA 90 2 puffs INH Q4H PRN gm 01/16/19 01/29/19 History mcg/actuation aerosol inhaler calcium carbonate 600 mg (1,500 2 tab PO DAILY 01/16/19 01/29/19 History mg)-vitamin D3 400 unit tablet albuterol sulfate 2.5 mg/3 mL 2.5 mg INH QID PRN #90 ml 01/18/19 01/29/19 Rx (0.083 %) solution for nebulization cholecalciferol (vitamin D3) 4,000 unit PO DAILY 01/29/19 01/29/19 History [Vitamin D3] diltiazem HCl [Cartia XT] 120 mg PO BID 01/29/19 01/29/19 History jlgdtyxocvh-wendblyae-kupsuivm 1 inh INHALATION DAILY 01/29/19 01/29/19 History [Trelegy Ellipta] glimepiride 2 mg PO BID 01/29/19 01/29/19 History levothyroxine 25 mcg PO DAILY 01/29/19 01/29/19 History Patient History Medical History Abdominal aortic aneurysm (AAA), 30-34 mm diameter (Chronic) Anemia (Chronic) Arteriosclerotic coronary artery disease (Chronic) 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, moderate (Chronic) Chronic anticoagulation (Chronic) Chronic rhinitis (Chronic) Depression (Chronic) Dyslipidemia (Chronic) Hypertension (Chronic) Hypothyroidism (acquired) (Chronic) Mild cognitive impairment (Chronic) Nocturnal hypoxia (Chronic) Osteoporosis (Chronic) Tinnitus of both ears (Chronic) Tubular adenoma of colon (Chronic) Type 2 diabetes mellitus (Chronic) Vitamin B12 deficiency (Chronic) Vitamin D deficiency (Chronic) Asthma (Chronic) Atrial flutter Paroxysmal atrial fibrillation (Chronic) TIA (transient ischemic attack) Pneumonia (Resolved) Surgical History H/O Mohs micrographic surgery for skin cancer Family History Other COPD (chronic obstructive pulmonary disease) Depression Family history non-contributory Social History Preferred Language: Divehi Communication Ability: Effective Visual Impairment: No Limitations Hearing Ability: Use of Hearing Aid Beliefs That Will Affect Care: None marital status: Current Living Situation: Spouse current occupational status: retired 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, 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[employer] ([place]) Feels Safe at Home: Yes Smoking Status: Former smoker Number of Years Since Quit: 34 ; Hx Alcohol Use: No Hx Substance Use: No Childhood Exposure to Second-Hand Smoke: Yes caffeine: No Dental Care, Regularly: No Physical Activity Frequency: Does not Exercise Seatbelt Use: always Review of Systems Constitutional: no fever and no chills Eyes: no blind spots and no diplopia Ear, Nose, Mouth, Throat: no tinnitus and no hearing loss Respiratory: + dyspnea Cardiovascular: no chest pain and no palpitations Gastrointestinal: no nausea and no vomiting Genitourinary: + as per Subjective / HPI and + urinary incontinence Musculoskeletal: no neck pain and no myalgia Integumentary: no rash and no lesions Neurologic: as per Subjective / HPI and + memory loss; no dizziness, no headache(s) and no abnormal speech Psychiatric: no depression and no anxiety Hematologic / Lymphatic: no easy bleeding and no easy bruising Physical Exam Physical Exam: The patient is a well-developed, well-nourished elderly male. He is alert and fully oriented although processing speed somewhat slow. Recent and remote memory intact. Attention and concentration normal. Patient exhibits a normal spontaneous speech pattern. He is able to name objects and repeat phrases. Patient exhibits an age-appropriate fund of knowledge and normal comprehension of vocabulary. Visual jefferson full to confrontation. Visual acuity normal. Pupils equal round reactive to light and accommodation. Eye movements normal. There is no nystagmus, ptosis, or ophthalmoplegia. Facial sensation intact. There is no facial droop or weakness. Hearing intact. Palate elevates to midline. Shoulder shrug intact. Tongue protrudes to midline. There is bruising along the lateral aspect of the tongue, bilaterally. Sensation intact all modalities in all 4 limbs. Deep tendon reflexes intact and symmetrical for the arms and legs. Plantar responses downgoing bilaterally. There is no dysdiadochokinesia or dysmetria gsjkig-at-cmot or mltd-du-wdwm bilaterally. Ophthalmoscopic examination reveals normal-appearing optic disks and posterior segments. No papilledema or hemorrhages. Carotid pulses normal bilaterally, no bruits to auscultation. Gait and station not tested due to safety concerns. Patient exhibits normal muscle strength and tone for all 4 limbs. No atrophy. No abnormal movements observed. Results & Data Vital Signs (Past 12 Hours) Vital Signs Temp Pulse Pulse Resp BP Pulse Ox 01/30/19 08:30 93 H 01/30/19 07:42 36.4 C L 84 18 136/84 98 01/30/19 05:26 78 135/89 01/30/19 03:46 36.4 C L 98 H 20 161/108 H 93 01/30/19 02:50 123 H Laboratory Results WBC 10.28, hemoglobin 13.8, hematocrit 43.1, platelet count 230, sodium 141, potassium 3.5, BUN 7, creatinine 0.86, glucose 106, hemoglobin A1c 6.9, calcium 8.2, TSH 2.[address] of the head completed yesterday is negative for hemorrhage or acute process. I reviewed the images as well as the radiologist interpretation of this test. Brain MRI completed February 02, 2018 reveals a stable 5 mm right frontal lobe cavernoma. I reviewed the images as well as the radiologist interpretation of this test. Electrocardiogram reveals atrial fibrillation, 71 bpm. An EEG completed this morning reveals intermittent left frontotemporal slowing and some background generalized slowing.
--- NOTE | 2019-01-30 12:27 | Electroencephalogram ---
EEG Procedure Note Date of Service January 30, 2019 Start / End Times Start Time: 5:38 AM End Time: 5:58 AM Referring Physician Shannon Morales DO History Recurrent seizures Home Medication List Home Medications Medication Instructions Recorded Confirmed Type apixaban [Eliquis] 5 mg PO BID 02/02/18 01/29/19 History aspirin [Aspir-81] 81 mg PO BID 02/02/18 01/29/19 History sertraline [Zoloft] 50 mg PO QAM 02/02/18 01/29/19 History cyanocobalamin (vit B-12) 1,000 1,000 mcg PO QAM #180 tab 10/22/18 01/29/19 Rx mcg tablet metformin 1,000 mg tablet 1,000 mg PO BID #180 tab 10/22/18 01/29/19 Rx lisinopril 20 mg tablet 20 mg PO QAM #90 tab 11/07/18 01/29/19 Rx atorvastatin 40 mg tablet 40 mg PO DAILY #90 tab 01/02/19 01/29/19 Rx montelukast 10 mg tablet See Rx Instructions .ROUTE 01/02/19 01/29/19 Rx .COMPLEX #90 tablet albuterol sulfate HFA 90 2 puffs INH Q4H PRN gm 01/16/19 01/29/19 History mcg/actuation aerosol inhaler calcium carbonate 600 mg (1,500 2 tab PO DAILY 01/16/19 01/29/19 History mg)-vitamin D3 400 unit tablet albuterol sulfate 2.5 mg/3 mL 2.5 mg INH QID PRN #90 ml 01/18/19 01/29/19 Rx (0.083 %) solution for nebulization cholecalciferol (vitamin D3) 4,000 unit PO DAILY 01/29/19 01/29/19 History [Vitamin D3] diltiazem HCl [Cartia XT] 120 mg PO BID 01/29/19 01/29/19 History ytgzroralun-ufyyxhoph-rysjwzxl 1 inh INHALATION DAILY 01/29/19 01/29/19 History [Trelegy Ellipta] glimepiride 2 mg PO BID 01/29/19 01/29/19 History levothyroxine 25 mcg PO DAILY 01/29/19 01/29/19 History Inpatient Medication List Apixaban (Eliquis) 5 mg PO BID [facility] Stop: 02/28/19 20:59 Last Admin: 01/30/19 08:00 Dose: 5 mg Documented by: [id number] Admin: 01/29/19 21:36 Dose: 5 mg Documented by: [id number] Aspirin (Ecotrin Ectab) 81 mg PO BID [facility] Stop: 02/28/19 20:59 Last Admin: 01/30/19 08:02 Dose: 81 mg Documented by: [id number] Admin: 01/29/19 21:35 Dose: 81 mg Documented by: [id number] Atorvastatin Calcium (Lipitor) 40 mg PO DAILY [facility] Stop: 03/01/19 08:59 Last Admin: 01/30/19 08:02 Dose: 40 mg Documented by: [id number] Cyanocobalamin (Vitamin B-12) 1,000 mcg PO QAM [facility] Stop: 03/01/19 08:59 Last Admin: 01/30/19 08:01 Dose: 1,000 mcg Documented by: [id number] Diltiazem HCl (Cardizem Cd) 120 mg PO BID [facility] Stop: 02/28/19 20:59 Last Admin: 01/30/19 08:00 Dose: 120 mg Documented by: [id number] Admin: 01/29/19 21:35 Dose: 120 mg Documented by: [id number] Sodium Chloride (Nss 1000ml) 1,000 mls @ 125 mls/hr IV .Q8H [facility] Stop: 02/28/19 09:14 Last Admin: 01/30/19 09:45 Dose: 125 mls/hr Documented by: [id number] Infusion: 01/30/19 09:16 Dose: 125 mls/hr Documented by: [id number] Admin: 01/30/19 01:16 Dose: 125 mls/hr Documented by: [id number] Infusion: 01/30/19 01:16 Dose: 125 mls/hr Documented by: [id number] Admin: 01/29/19 17:16 Dose: 125 mls/hr Documented by: [id number] Infusion: 01/29/19 17:16 Dose: 125 mls/hr Documented by: [id number] Admin: 01/29/19 09:24 Dose: 125 mls/hr Documented by: [id number] Ceftriaxone Sodium 1,000 mg/ (Dextrose) 50 mls @ 100 mls/hr IV Q24H [facility]; Protocol Stop: 02/05/19 15:59 Last Infusion: 01/29/19 18:00 Dose: 0 mls/hr Documented by: [id number] Admin: 01/29/19 17:15 Dose: 100 mls/hr Documented by: [id number] Insulin Aspart (Novolog Flexpen) 0 units SC ACHS [facility] Stop: 02/28/19 16:29 Last Admin: 01/30/19 08:51 Dose: 1 units Documented by: [id number] Cosigned by: [id number] Admin: 01/29/19 21:49 Dose: Not Given Documented by: [id number] Cosigned by: [id number] Admin: 01/29/19 17:22 Dose: Not Given Documented by: [id number] Cosigned by: [id number] Lactobacillus Acidophilus (Floranex) 4 tab PO QIDM [facility] Stop: 02/28/19 16:59 Last Admin: 01/30/19 08:03 Dose: 4 tab Documented by: [id number] Admin: 01/29/19 21:36 Dose: 4 tab Documented by: [id number] Admin: 01/29/19 17:24 Dose: Not Given Documented by: [id number] Levothyroxine Sodium (Synthroid) 25 mcg PO DAILYBB [facility] Stop: 03/01/19 06:29 Last Admin: 01/30/19 06:05 Dose: 25 mcg Documented by: [id number] Lisinopril (Zestril) 20 mg PO QAM [facility] Stop: 03/01/19 08:59 Last Admin: 01/30/19 08:00 Dose: 20 mg Documented by: [id number] Metformin HCl (Glucophage) 1,000 mg PO BIDM [facility] Stop: 02/28/19 16:59 Last Admin: 01/30/19 08:02 Dose: 1,000 mg Documented by: [id number] Admin: 01/29/19 17:24 Dose: Not Given Documented by: [id number] Miscellaneous (Order Awaiting Action) 1 ea N/A QS [facility] Stop: 02/28/19 15:59 Last Admin: 01/30/19 08:03 Dose: Not Given Documented by: [id number] Admin: 01/30/19 01:14 Dose: Not Given Documented by: [id number] Admin: 01/29/19 17:16 Dose: Not Given Documented by: [id number] Montelukast Sodium (Singulair) 10 mg PO DAILY [facility] Stop: 03/01/19 08:59 Last Admin: 01/30/19 08:02 Dose: 10 mg Documented by: [id number] Multivitamins/Minerals (Caltrate Plus) 2 tab PO DAILY [facility] Stop: 03/01/19 08:59 Last Admin: 01/30/19 08:01 Dose: 2 tab Documented by: [id number] Sertraline HCl (Zoloft) 50 mg PO QAM [facility] Stop: 03/01/19 08:59 Last Admin: 01/30/19 08:00 Dose: 50 mg Documented by: [id number] Vitamin D (Vitamin D3) 4,000 units PO QAM [facility] Stop: 03/01/19 08:59 Last Admin: 01/30/19 08:01 Dose: 4,000 units Documented by: [id number] Discontinued Medications Azithromycin (Zithromax) 500 mg PO NOW ONE Stop: 01/30/19 08:46 Last Admin: 01/30/19 09:18 Dose: 500 mg Documented by: [id number] Doxycycline Hyclate (Vibramycin) 100 mg PO NOW STA Stop: 01/29/19 11:10 Last Admin: 01/29/19 11:56 Dose: 100 mg Documented by: [id number] Glimepiride (Amaryl) 2 mg PO BID [facility] Stop: 02/28/19 20:59 Last Admin: 01/30/19 08:01 Dose: 2 mg Documented by: [id number] Admin: 01/29/19 21:34 Dose: 2 mg Documented by: [id number] Sodium Chloride (Nss) 500 mls @ 999 mls/hr IV .Q31M [facility] Stop: 01/29/19 09:45 Last Infusion: 01/29/19 09:55 Dose: 0 mls/hr Documented by: [id number] Admin: 01/29/19 09:24 Dose: 999 mls/hr Documented by: [id number] Levetiracetam 1,500 mg/ (Dextrose) 115 mls @ 440 mls/hr IV NOW STA Stop: 01/29/19 13:17 Last Infusion: 01/29/19 14:03 Dose: 0 mls/hr Documented by: [id number] Admin: 01/29/19 13:18 Dose: 440 mls/hr Documented by: [id number] Lorazepam (Ativan) 2 mg in 4 mls @ 4 mls/min IV NOW STA Stop: 01/29/19 13:03 Last Admin: 01/29/19 13:03 Dose: 4 mls/min Documented by: [id number] Lorazepam (Ativan) Confirm Administered Dose 2 mg .ROUTE .STK-MED ONE Stop: 01/29/19 13:00 Last Admin: 01/29/19 13:03 Dose: Not Given Documented by: [id number] Description This is a 21 electrode EEG with a single channel dedicated to limited EKG. The electrodes were placed in accordance with the International 10-20 system. There is a posterior dominant rhythm of 10 Hz which is symmetrically distributed and attenuates with eye opening. There is a normal anterior to posterior organization. Photic stimulation is unremarkable. Hyperventilation is not performed. There is admixed generalized theta activity throughout much of the study. There is intermittent left frontotemporal 3.5 Hz slowing. No epileptiform abnormalities. Interpretation Abnormal awake EEG revealing findings suggestive of a mild underlying generalized encephalopathy as well as focal slowing localizing to the left frontotemporal region. No evidence of seizure activity. Clinical Correlation The observed left focal slowing on this EEG is somewhat nonspecific but could indicate some focal underlying neuronal dysfunction. There is also a background of mild generalized slowing suggestive of a mild nonspecific encephalopathy. The observed focal slowing does not correlate with this patient's known history of right frontal cavernoma. Please see today's neurology consult for further clinical correlation. [facility] EEG Procedure Codes Indication for Procedure (1) Seizure: Neurology Neurology: 14324 EEG include record awake & drowsy
[2019-01-30] MEDS ORDERED: GADOBUTROL 65ML VIAL IV PRN (15:02)
[2019-01-30] MEDS: cefTRIAXone SODIUM 1,000 MG in DEXTROSE 5% 50 ML IV SCH (15:19)
--- NOTE | 2019-01-30 17:08 | Magnetic Resonance Report ---
Brain MRI WITH AND WITHOUT CONTRAST HISTORY: seizure, cavernoma TECHNIQUE: Multiplanar multisequence MRI of the brain was performed both before and after the intrave nous administration of contrast. The patient was unable to complete the entire exam. Therefore, the c oronal T1 postcontrast sequences were not obtained. COMPARISON STUDY: Head CT 01/29/2019. Brain MRI 01/25/2018. FINDINGS: There is no hematoma, midline shift, or acute infarct. The mastoid air cells are clear. The ventricles and sulci demonstrate mild age-related involutional changes. Scattered foci of T2 hyperin tensity seen within the periventricular and subcortical white matter are nonspecific but suggestive o f mild microvascular ischemic changes. The major vascular flow voids at the skull base are well-maint ained. Near complete opacification of the ethmoid air cells. Small fluid levels within the left maxil enid sinus and left sphenoid sinus. Mild mucosal thickening within the remaining paranasal sinuses. N o abnormal enhancement. There is again noted a 5 mm cavernoma within the right posterior frontal lobe best seen on axial image 16. IMPRESSION: 1. No acute intracranial abnormality. 2. Acute on chronic paranasal sinusitis. 3. No change in the 5 mm right frontal lobe cavernoma. Electronically signed by: Reagan Villanueva M.D. 01/30/2019 5:07 PM
--- NOTE | 2019-01-30 17:43 | Discharge Summary ---
Date of Service January 30, 2019 Admission HPI Per Admitting Provider 78 y/o M who was brought to the ED for possible seizure. Family is not present during my discussion with pt. Pt states that his noted that he was shaking in bed this AM. He is not sure of the time, but states it woke her up. He states that he was told he was not really conscious for about 5-10 minutes after this. He does not remember any of this. He states that after this happened he went back to sleep until around 11, which is not usual for him. He states that he feels at his usual now. "I feel fine." Pt denies prior hx of seizures. Pt was seen at an urgent care 3-4 days ago for a cough and was dx with PNA. He has been on amoxcillin since that time. He states he has been eating and drinking at his usual. He states his cough is better on abx. He has not had SOB. He uses O2 HS only and has not needed more O2 lately. Pt denies fever, chest pain, abd pain, n/v/c/d, LE pain or swelling. Principal Diagnosis Seizures, pneumonia Discharge Exam General he is awake and alert pleasant no distress. HEENT normocephalic atraumatic mucous membranes moist. Breathing is unlabored no accessory muscle use good effort. Skin shows no rashes no pallor or icterus. Discharge Data Allergies Allergy/AdvReac Type Severity Reaction Status Date / Time No Known Drug Allergies Allergy Mild . Verified 01/29/19 09:12 pollen extracts Allergy Mild CONGESTION Verified 01/29/19 09:12 Consultations 01/29/19 11:45 ED Decision to Admit Stat 01/29/19 15:05 Consult Case Management - Discharge Planning Routine Consult Neurology Routine Ordered Studies 01/29/19 09:11 CT head/brain wo con Stat 01/30/19 12:16 MR brain seizure wo/w con Routinestable from last year Hospital Course (1) Observed seizure-like activity: No prior hx of seizures, describes post-ictal fatigue ?? related to PNA/sinusitis vs BS issue -Neuro input appreciated, Keppra 1000 mg twice daily for now. Close outpatient follow-up with PCP and neurology (2) PNA (pneumonia): Had been on doxycycline, then later amoxicillinchanged to Zithromax and Rocephin, will discharge home finishing out a course of Zithromax and Ceftin ear (3) Acute sinusitis: Noted on CT head Doxycyclinethen amoxicillin as outpatient. Ceftin ear should be helpful in this regard, although Zithromax likely is more only going to be beneficial for lung pathogens. 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 Gonzalez's office will call you with a follow up appt.) Lorna Tucker DO [Primary Care Provider] - 02/04/19 9:20 am (A follow up appt. has been made for you with Dr. Tucker on at 9:20am. ) Diet: Regular Addtl Attending Provider Instructions: seizures -to prevent future seizures, right now Dr Stallings (neurology) recommends you be on keppra 1000mg twice a day - they'll follow up with you in the office to see how you're doing, and adjust the dose as needed. while keppra is usually really well tolerated, it can sometimes cause people to be groggy, or appear "goofy" or off balance. if you were to notice any of this, then we'll want you to talk w Dr Stallings about if a dose adjustment or medication change is needed. pneumonia -given your struggles with this respiratory infection, and the antibiotics that you've been on, we're treating to cover for the possible bacteria that would've "evaded" your prior antibiotic regimens --> we'll have you finish out a course of zithromax (azithromycin) 250mg daily for 4 more days (next dose tomorrow) and cefdinir 300mg twice a day for 7 more days (next dose tomorrow) -we'll want you to follow up with Dr Tucker to ensure that you're getting totally better from this. Pending Studies at Discharge: No Stand-Alone Forms: My [facility] Medications and DC Order Prescriptions: New azithromycin [Zithromax] 250 mg Tablet 250 mg PO QAM Qty: 4 RF: 0 cefdinir 300 mg capsule 300 mg PO BID 7 Days Qty: 14 RF: 0 levetiracetam [Keppra] 500 mg Tablet 1,000 mg PO BID Qty: 60 RF: 0 Continued cyanocobalamin (vitamin B-12) [Vitamin B-12] 1,000 mcg tablet 1,000 mcg PO QAM Qty: 180 RF: 1 metformin 1,000 mg tablet 1,000 mg PO BID Qty: 180 RF: 3 lisinopril 20 mg tablet 20 mg PO QAM Qty: 90 RF: 3 montelukast 10 mg tablet See Rx Instructions .ROUTE .COMPLEX Qty: 90 RF: 3 atorvastatin 40 mg tablet 40 mg PO DAILY Qty: 90 RF: 1 calcium carbonate-vitamin D3 600 mg(1,500mg) -400 unit tablet 2 tab PO DAILY RF: 0 albuterol sulfate 2.5 mg /3 mL (0.083 %) solution for nebulization 2.5 mg INH QID PRN (Reason: shortness of breath or wheezing) Qty: 90 RF: 3 albuterol sulfate [Ventolin HFA] 90 mcg/actuation HFA aerosol inhaler 2 puffs INH Q4H PRN (Reason: Shortness Of Breath) RF: 0 diltiazem HCl [Cartia XT] 120 mg Capsule,Extended Release 24hr 120 mg PO BID RF: 0 Vitamin D3 4,000 unit Capsule 4,000 unit PO DAILY RF: 0 Trelegy Ellipta 100-62.5-25 mcg Blister With Device 1 inh INHALATION DAILY RF: 0 glimepiride 2 mg tablet 2 mg PO BID RF: 0 levothyroxine 25 mcg tablet 25 mcg PO DAILY RF: 0 aspirin [Aspir-81] 81 mg Tablet,Delayed Release (Dr/Ec) 81 mg PO BID RF: 0 sertraline [Zoloft] 50 mg tablet 50 mg PO QAM RF: 0 Eliquis 5 mg Tablet 5 mg PO BID RF: 0 Discharge Orders: Discharge Order (Routine); Ordered 01/30/19 Ordered By: Maximino Izaguirre Admission Data Admit Date/Time: 01/29/19 12:41 Attending Provider: Maximino Izaguirre Admit Provider: Shannon Morales Primary Care Provider: Lorna Tucker Other Providers: Shannon Morales Emile Pierre III Other Interventions: Discharge Summary Assessment (RN) Last Done: 01/30/19 17:36
[2019-01-30] MEDS ORDERED: FLUTICASONE/SALMETEROL 100/50 (ADVAIR) 14 PUFF/1 INHALER INH SCH (21:00)
[2019-01-30] MEDS ORDERED: levETIRAcetam 500 MG TAB PO SCH (21:00)
[2019-01-31] MEDS ORDERED: AZITHROMYCIN 250 MG TAB PO SCH (09:00)
[2019-01-31] MEDS ORDERED: TIOTROPIUM BROMIDE 5 PUFF/90 MCG INH INH SCH (09:00)
== END 2019-01-30 18:12 | disposition home or self-care (01) ==
LOC: ED 08:14 → 2N 08:14 → SUATTDRO 12:41 → 2N 14:13

== ENCOUNTER 2019-02-11 12:39 | Inpatient (IN) ==
[2019-02-11 13:18] LABS: Base Excess VBG 0.7 mEq/L; Oxygen Saturation VBG 83.6 %; pH VBG 7.43 (7.36-7.41)
[2019-02-11 13:25] LABS: Mean Platelet Volume 10.4 fL (7.4-10.4); Platelet Count 254 K/uL (130-400)
[2019-02-11 13:39] LABS: INR 1.1 (0.9-1.1); Partial Thromboplastin Time 28.3 Seconds (21.0-31.0); Prothrombin Time 10.9 Seconds (9.0-12.0)
[2019-02-11 13:46] LABS: Alanine Aminotransferase 19 U/L (12-78); Albumin Level 3.8 gm/dl (3.4-5.0); BUN Creatinine Ratio 16.3 (10-20); Bilirubin Direct < 0.1 mg/dl (0-0.2); Blood Urea Nitrogen 19 mg/dl (7-18); Calcium 9.5 mg/dl (8.5-10.1); Carbon Dioxide 24 mmol/L (21-32); Chloride 103 mmol/L (98-107); Est GFR (African American) 71.5; Est GFR (Non-African American) 61.7; Glucose 87 mg/dl (70-99); Potassium 3.9 mmol/L (3.5-5.1); Sodium 137 mmol/L (136-145)
[2019-02-11 13:47] LABS: Influenza A virus by PCR Neg for Influ A (Neg); Influenza B virus by PCR Neg for Influ B (Neg)
[2019-02-11 13:51] LABS: Alkaline Phosphatase 96 U/L (45-117); Aspartate Aminotransferase 19 U/L (15-37); Bilirubin,Total 0.4 mg/dl (0.2-1); Total Protein 8.3 gm/dl (6.4-8.2); Troponin I < 0.015 ng/ml (0-0.045)
[2019-02-11 13:58] LABS: Hematocrit (blood only) 43.9 % (42-52); Hemoglobin 14.5 g/dL (14.0-18.0); Mean Corpuscular Hemoglobin 27.7 pg (25-34); Mean Corpuscular Volume 83.9 fL (80-100); RDW Coefficient of Variation 17.2 % (11.5-14.5); RDW Standard Deviation 52.8 fL (36.4-46.3); Red Blood Count 5.23 M/uL (4.7-6.1); White Blood Count 12.89 K/uL (4.8-10.8)
[2019-02-11 14:00] LABS: ALC (manual) 1.44 K/uL (1.2-3.4); ANC (manual) 7.45 K/uL (1.4-6.5); Basophils # (manual) 0.22 K/uL (0-0.2); Basophils % (manual) 1.7 %; Echinocytes 1+; Eosinophils # (manual) 2.33 K/uL (0-0.5); Eosinophils % (manual) 18.1 %; Lymphocytes # (manual) 1.44 K/uL (1.2-3.4); Lymphocytes % (manual) 11.2 %; Microcytosis Present; Monocytes # (manual) 1.44 K/uL (0.11-0.59); Monocytes % (manual) 11.2 %; Neutrophils # (manual) 7.45 K/uL (1.4-6.5); Neutrophils % (manual) 57.8 %
[2019-02-11] MEDS ORDERED: methylPREDNISolone 125 MG/2 ML VIAL IV STA (14:01)
[2019-02-11] MEDS ORDERED: SODIUM CHLORIDE 0.9% 1000ML 500 ML IV ONE (14:01)
[2019-02-11] MEDS ORDERED: ALBUT/IPRATROP 3MG/0.5MG NEB 3 ML VIAL NEB STA (14:02)
--- NOTE | 2019-02-11 14:03 | XRay Report ---
XR chest 1V portable HISTORY: Shortness of breath. COMPARISON: Chest 01/29/2019. FINDINGS: No pneumothorax. No pleural effusions. The heart remains mildly enlarged. No evidence for p ulmonary edema. Improving right basilar density. No new focal lung consolidations. IMPRESSION: 1. Improvement in the right basilar airspace opacity. This may represent a resolving pneumonia. 2. Stable cardiomegaly. Electronically signed by: Reagan Villanueva M.D. 02/11/2019 2:02 PM
[2019-02-11] MEDS ORDERED: VANCOMYCIN HCL 1,500 MG in SODIUM CHLORIDE 0.9% 500 ML IV ONE (14:17)
[2019-02-11] MEDS ORDERED: VANCOMYCIN CONSULT ACTIVE PRN (14:17)
[2019-02-11] MEDS ORDERED: PIPERACILLIN/TAZOBACTAM 4.5 GM/120 ML BAG IV ONE (14:17)
--- NOTE | 2019-02-11 14:21 | History & Physical Report ---
Date of Service February 11, 2019 Assessment & Plan (1) Pneumonia: - admit to med surg - Elevated WBC at 12 K and lactic acid of 3.0 at time of admission, recheck lactic acid at 1600 to ensure resolves - Start IV vanc, zosyn and levaquin as pt has failed outpatient antibiotics - Consult pulmonology - question if the pt needs bronchoscopy? - Sputum culture, mucinex, levalbuterol nebs ( w/ hx of parox afib and would not want to put him in RVR), incentive spirometry, tessalon pearls (2) COPD, moderate: - Pt recently completed course of prednisone along with antibiotics, does not appear to be a COPD exacerbation but he was covered with IV solumedrol 125 mg IV in the ER x 1. Hold on further steroids at this time. - Pulm consult as above to further eval - CXR reviewed (3) Paroxysmal atrial fibrillation: - Continue eliquis, currently in NSR (4) Hypertension: - Cont diltiazem 240 mg daily, asa 81 mg, lisinopril 20 mg QPM (5) Dyslipidemia: - cont statin therapy (6) Hypothyroidism (acquired): - Cont levothyroxine (7) Osteoporosis: - Cont vit d supplementation (8) Depression: - Cont zoloft (9) Vitamin D deficiency: - Cont Vit D deficiency (10) Vitamin B12 deficiency: - Cont Vit B supplementation (11) Chronic anticoagulation: - noted as above (12) Type 2 diabetes mellitus: - Hold glimepiride and metformin for now, ISS with accuchecks achs - Check A1C with am labs - HH/DM diet (13) DVT prophylaxis: - cory villarreal CODE: Full code Dispo: From home, likely to remain in the hospital x 2 days. History of Present Illness Primary Care Provider: Lorna Tucker DO This is a a 78 yo M with PMHx of COPD, HTN, HLD, DM II, Hypothyroidism, paroxysmal afib, BPH, with recent acute sinusitis and pneumonia issues where he was hospitalized at the end of January for an episode of seizure like activity. Prior to this seizure-like activity he was having issues with sinusitis/URI and was placed on doxycycline and amoxicillin where he completed a course, his symptoms did not improve. He was admitted from 01/29-9/25 where he was placed on Rocephin and azithromycin IV, then was discharged and transitioned to PO cefdinir x 7 days and azithromycin x 4 days to complete full courses. Pts is present with him at bedside. He reports that he's been doing fine since being discharged however noticed that he is been having difficulty with shortness of breath in the last few days. His notes that this started specifically when he finished his antibiotic courses approximately 5 to 6 days ago. He has a wet cough, bringing up white to clear sputum throughout the day. He denies any fevers, chills or sweats. He does feel deconditioned, reports he was "as weak as a kitten" whenever he left the hospital during his last admission. He has been able to eat and drink without difficulty. Patient took all his medications today. He was over at his PCPs office when he was noted to be mildly hypoxic at 91 to 92% on room air therefore was sent here to the ER. Patient has a mild white count of 12 K, lactic acid of 3.0. Chest x-ray shows possibly resolving pneumonia from previous admission. Allergies Allergy/AdvReac Type Severity Reaction Status Date / Time pollen extracts Allergy Mild CONGESTION Verified 02/11/19 13:48 Home Medications Home Medications Medication Instructions Recorded Confirmed Type Eliquis 5 mg PO BID 02/02/18 02/11/19 History aspirin [Aspir-81] 81 mg PO BID 02/02/18 02/11/19 History sertraline [Zoloft] 50 mg PO QAM 02/02/18 02/11/19 History cyanocobalamin (vit B-12) 1,000 1,000 mcg PO QAM #180 tab 10/22/18 02/11/19 Rx mcg tablet metformin 1,000 mg tablet 1,000 mg PO BID #180 tab 10/22/18 02/11/19 Rx albuterol sulfate HFA 90 2 puffs INH Q4H PRN gm 01/16/19 02/11/19 History mcg/actuation aerosol inhaler calcium carbonate 600 mg (1,500 2 tab PO PM 01/16/19 02/11/19 History mg)-vitamin D3 400 unit tablet albuterol sulfate 2.5 mg/3 mL 2.5 mg INH QID PRN #90 ml 01/18/19 02/11/19 Rx (0.083 %) solution for nebulization Trelegy Ellipta 1 inh INHALATION QAM 01/29/19 02/11/19 History Vitamin D3 4,000 unit PO PM 01/29/19 02/11/19 History glimepiride 4 mg PO QAM 01/29/19 02/11/19 History levothyroxine [Synthroid] 25 mcg PO PM 01/29/19 02/11/19 History levetiracetam [Keppra] 1,000 mg PO BID #60 tab 01/30/19 02/11/19 Rx diltiazem CD 240 mg 240 mg PO PM cap 02/02/19 02/11/19 History capsule,extended release 24 hr fluticasone propionate 50 1 - 2 sprays INTNAS DAILY gm 02/02/19 02/11/19 History mcg/actuation nasal spray,suspension montelukast 10 mg tablet 10 mg PO PM tab 02/02/19 02/11/19 History atorvastatin [Lipitor] 40 mg PO PM 02/11/19 02/11/19 History lisinopril 20 mg PO PM 02/11/19 02/11/19 History Past Med/Surg History Medical History Seizure (Acute) Abdominal aortic aneurysm (AAA), 30-34 mm diameter (Chronic) Anemia (Chronic) Arteriosclerotic coronary artery disease (Chronic) 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, moderate (Chronic) Chronic anticoagulation (Chronic) Chronic rhinitis (Chronic) Depression (Chronic) Dyslipidemia (Chronic) Hypertension (Chronic) Hypothyroidism (acquired) (Chronic) Mild cognitive impairment (Chronic) Nocturnal hypoxia (Chronic) Osteoporosis (Chronic) Tinnitus of both ears (Chronic) Tubular adenoma of colon (Chronic) Type 2 diabetes mellitus (Chronic) Vitamin B12 deficiency (Chronic) Vitamin D deficiency (Chronic) Asthma (Chronic) Atrial flutter Paroxysmal atrial fibrillation (Chronic) TIA (transient ischemic attack) Pneumonia (Resolved) Surgical History H/O Mohs micrographic surgery for skin cancer Family History Other COPD (chronic obstructive pulmonary disease) Depression Family history non-contributory Social History Preferred Language: Mauritian Communication Ability: Effective Visual Impairment: No Limitations Hearing Ability: Use of Hearing Aid Information Technology Project Manager Required: No Beliefs That Will Affect Care: None marital status: Current Living Situation: Spouse current occupational status: retired 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, 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[employer] ([place]) Feels Safe at Home: Yes Smoking Status: Former smoker Tobacco Type: smokeless tobacco ; Second Hand Exposure: No ; Hx Alcohol Use: No Hx Substance Use: No Childhood Exposure to Second-Hand Smoke: Yes caffeine: No Dental Care, Regularly: No Physical Activity Frequency: Does not Exercise Seatbelt Use: always Review of Systems Review of Systems: Constitutional: No fever, sweats or chills Eyes: No diplopia, no worsening or blurred vision ENT: normal hearing, no trouble swallowing Respiratory: As per HPI Cardiovascular: No chest pain, tightness or palpitations Abdomen: No pain, nausea, vomiting, diarrhea or constipation Musculoskeletal: No joint pain, calf pain, swelling Neurologic: No weakness, numbness/tingling, or balance problems Psychiatric: No anxiety or depression Skin: No rash or itch Physical Exam Physical Exam: General: awake, alert, no apparent distress, + thin Head: Normocephalic, atraumatic ENT: PERRL, EOMI, no pharyngeal exudate, mucous membranes moist Chest: + Barrel chested, diminished breath sounds throughout, on room air with O2 sats of 92%, no adventitious breath sounds Cardiac: Regular rate and rhythm, no murmur, no JVD, normal peripheral pulses, good capillary refill Abdominal: NABS x 4 quadrants, soft, nontender to palpation, no rebound, guarding or tenderness Extremities: Normal inspection, no peripheral edema or erythema, calfs nontender to palpation Psych: Normal mood and affect Neuro: AAO x 3, no motor deficits, speech is clear, no peripheral sensory deficits Skin: no rash or erythema Results & Data Vital Signs (Past 12 Hours) Vital Signs Temp Pulse Resp BP Pulse Ox 02/11/19 12:43 36.5 C 104 H 20 119/75 92 Diagnostic Findings XR chest 1V portable HISTORY: Shortness of breath. COMPARISON: Chest 01/29/2019. FINDINGS: No pneumothorax. No pleural effusions. The heart remains mildly enlarged. No evidence for pulmonary edema. Improving right basilar density. No new focal lung consolidations. IMPRESSION: 1. Improvement in the right basilar airspace opacity. This may represent a resolving pneumonia. 2. Stable cardiomegaly. Code Status & VTE Plan Code Status Full code-discussed with patient and his at bedside Supervising Physician Co-Signing Physician Notes Patient seen and examined, chart reviewed, case discussed with ANA MARIA Brizuela and I agree with her assessment and plan as documented above. Briefly patient is a 78-year-old male with history of COPD, on O2 at bedtime, recently treated for community-acquired pneumonia presenting with productive cough, shortness of breath and wheeze. On physical exam he is afebrile, hemodynamically stable, no acute distress General: Nontoxic in appearance Skin: No rash HEENT: Normocephalic atraumatic, pupils equal round and reactive, moist because membranes, neck supple Heart: S1-S2 present, regular, no murmurs rubs or gallop Lungs: Equal air entry bilaterally, scattered inspiratory and expiratory wheezing, no rales/rhonchi Abdomen: + Bowel sounds, soft, nontender nondistended Remedies: No edema Labs and images reviewed. Significant for leukocytosis. WBC = 12.89. Lactate = 2.6. Flu = negative. Chest x-ray notes improvement in right basilar airspace opacity and stable cardiomegaly. EKG with sinus rhythm possible dropped beat? Mobitz 2 Assessment/plan: 78-year-old male with COPD on nocturnal oxygen, recent community acquired pneumonia presenting with continued productive cough, leukocytosis and elevated lactate. Concern for recurrence of pneumonia versus aspiration event. -Broad-spectrum antibiotics with vancomycin, Zosyn and Levaquin. -Steroids. Change to prednisone 40 mg daily -Nebs as needed -CT chest -Remainder of plan as above PG Care Time/CCT Total # of Minutes Spent Total Time Spent with Patient: Total time spent is greater than 50% in coordination of care (as documented) at patient's floor/unit and/or counseling patient: (1) Pneumonia Laterality: right Lung location: middle lobe of lung Pneumonia type: due to unspecified organism Qualified Code(s): J18.1 - Lobar pneumonia, unspecified organism
[2019-02-11] MEDS ORDERED: ONDANSETRON INJ 2 MG/ML 2 ML VIAL IV PRN (14:33)
[2019-02-11] MEDS ORDERED: ACETAMINOPHEN 325 MG TAB PO PRN (14:33)
--- NOTE | 2019-02-11 14:36 | Emergency Department Note ---
Entered by Darrel Lyon acting as a scribe for History of Present Illness General Chief complaint: Respiratory Problems Stated complaint: pneumonia Time Seen by Provider: 02/11/19 12:47 Source: patient History of Present Illness Provider complaint: Shortness of breath Onset (ago): week(s) (Couple of weeks) Location: chest Pain Consistency: + intermittent Maximum Pain Intensity: 0 Relieved By: + none Exacerbated By: + none Associated symptoms: + cough; no fever/chills The patient is a 78 year old male who presents to the Emergency Room with complaints of intermittent shortness of breath that has been ongoing for the past couple of weeks but became acutely worse over the past couple of days. The patient was sent to the ED from his PCP's office due to his oxygen saturation being around 92% on room air. The patient also endorses a cough that has been present since the onset of his respiratory issues. The patient has been on 3-4 different antibiotics since the onset of this symptoms, however they continue to return after any signs of improvement. The patient states that he only 2L of oxygen via NC at night. The patient is on Eliquis and has not missed any doses. He denies any hemoptysis or chest pain at this time. Home Medications Home Medications Medication Instructions Recorded Confirmed Type Eliquis 5 mg PO BID 02/02/18 02/11/19 History aspirin [Aspir-81] 81 mg PO BID 02/02/18 02/11/19 History sertraline [Zoloft] 50 mg PO QAM 02/02/18 02/11/19 History cyanocobalamin (vit B-12) 1,000 1,000 mcg PO QAM #180 tab 10/22/18 02/11/19 Rx mcg tablet metformin 1,000 mg tablet 1,000 mg PO BID #180 tab 10/22/18 02/11/19 Rx albuterol sulfate HFA 90 2 puffs INH Q4H PRN gm 01/16/19 02/11/19 History mcg/actuation aerosol inhaler calcium carbonate 600 mg (1,500 2 tab PO PM 01/16/19 02/11/19 History mg)-vitamin D3 400 unit tablet albuterol sulfate 2.5 mg/3 mL 2.5 mg INH QID PRN #90 ml 01/18/19 02/11/19 Rx (0.083 %) solution for nebulization Trelegy Ellipta 1 inh INHALATION QAM 01/29/19 02/11/19 History Vitamin D3 4,000 unit PO PM 01/29/19 02/11/19 History glimepiride 4 mg PO QAM 01/29/19 02/11/19 History levothyroxine [Synthroid] 25 mcg PO PM 01/29/19 02/11/19 History levetiracetam [Keppra] 1,000 mg PO BID #60 tab 01/30/19 02/11/19 Rx diltiazem CD 240 mg 240 mg PO PM cap 02/02/19 02/11/19 History capsule,extended release 24 hr fluticasone propionate 50 1 - 2 sprays INTNAS DAILY gm 02/02/19 02/11/19 Histor y mcg/actuation nasal spray,suspension montelukast 10 mg tablet 10 mg PO PM tab 02/02/19 02/11/19 History atorvastatin [Lipitor] 40 mg PO PM 02/11/19 02/11/19 History lisinopril 20 mg PO PM 02/11/19 02/11/19 History Allergies Allergy/AdvReac Type Severity Reaction Status Date / Time pollen extracts Allergy Mild CONGESTION Verified 02/11/19 13:48 Past Med/Surg History Medical History Seizure (Acute) Abdominal aortic aneurysm (AAA), 30-34 mm diameter (Chronic) Anemia (Chronic) Arteriosclerotic coronary artery disease (Chronic) 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, moderate (Chronic) Chronic anticoagulation (Chronic) Chronic rhinitis (Chronic) Depression (Chronic) Dyslipidemia (Chronic) Hypertension (Chronic) Hypothyroidism (acquired) (Chronic) Mild cognitive impairment (Chronic) Nocturnal hypoxia (Chronic) Osteoporosis (Chronic) Tinnitus of both ears (Chronic) Tubular adenoma of colon (Chronic) Type 2 diabetes mellitus (Chronic) Vitamin B12 deficiency (Chronic) Vitamin D deficiency (Chronic) Asthma (Chronic) Atrial flutter Paroxysmal atrial fibrillation (Chronic) TIA (transient ischemic attack) Pneumonia (Resolved) Surgical History H/O Mohs micrographic surgery for skin cancer Family History Other COPD (chronic obstructive pulmonary disease) Depression Family history non-contributory Social History Preferred Language: Bulgarian Communication Ability: Effective Visual Impairment: No Limitations Hearing Ability: Use of Hearing Aid Beliefs That Will Affect Care: None marital status: Current Living Situation: Spouse current occupational status: retired 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 and A total of 10 systems reviewed and were otherwise negative Physical Exam Vital Signs Vital Signs - 24 hr 02/11/19 12:43 02/11/19 13:06 02/11/19 14:19 Temperature 36.5 C Temperature Source Oral Sepsis Recent Fever Within 48 Hours No Sepsis Action Taken by Nursing No Action Required Pulse Rate 104 H Pulse Rate [Apical] 90 Respiratory Rate 20 22 Respiratory Effort / Characteristics Non-Labored Respiratory Depth Normal Blood Pressure 119/75 Blood Pressure [Left Arm] 119/76 Blood Pressure Mean 89 Blood Pressure Mean [Left Arm] 90 Pulse Oximetry 92 92 Oxygen Delivery Method Room Air Room Air 02/11/19 14:29 Temperature Temperature Source Sepsis Recent Fever Within 48 Hours Sepsis Action Taken by Nursing Pulse Rate Pulse Rate [Apical] 89 Respiratory Rate 20 Respiratory Effort / Characteristics Non-Labored Spontaneous Respiratory Depth Blood Pressure Blood Pressure [Left Arm] Blood Pressure Mean Blood Pressure Mean [Left Arm] Pulse Oximetry 92 Oxygen Delivery Method Room Air GENERAL: He is oriented to person, place, and time. He appears well-developed and well-nourished. He does not appear distressed. HENT: Exam performed. - Head: Normocephalic and atraumatic. - Right Ear: External ear normal. No mastoid tenderness. - Left Ear: External ear normal. No mastoid tenderness. - Mouth/Throat: The oropharynx is clear and moist. No trismus in the jaw. No dental abscesses or uvula swelling. No oropharyngeal exudate or tonsillar absc esses. EYES: Conjunctivae and EOM are normal. Pupils are equal, round, and reactive to light. Right eye exhibits no discharge. Left eye exhibits no discharge. No scleral icterus. NECK: Normal range of motion. Neck supple. No JVD present. No spinous process tenderness present. No carotid bruit present. No rigidity. No tracheal deviation and normal range of motion present. No Brudzinski's sign and no Kernig's sign noted. CV: Normal rate, regular rhythm, normal heart sounds and intact distal pulses. There is no peripheral edema. Palpable radial pulses bue. PULM/CHEST: Rhonchi bilaterally. No respiratory distress. No stridor. He has no wheezes. He has no rales. - Chest Wall: He exhibits no tenderness. ABD: The abdomen is soft. Bowel sounds are normal. He has no distension. No mass is present. There is no tenderness. There is no rebound, no guarding, no Johnson's sign and no tenderness at McBurney's point. Rovsig negative. MUSC/SKEL: Normal range of motion. There is no peripheral edema, tenderness or deformity. LYMPH: No cervical adenopathy. NEURO: He is alert and oriented to person, place, and time. He has normal strength. No cranial nerve deficit or sensory deficit. Coordination and gait normal. GCS eye subscore is 4. GCS verbal subscore is 5. GCS motor subscore is 6. Cerebellar tests wnl. SKIN: Skin is warm and dry. He is not diaphoretic. PSYCH: He has a normal mood and affect. Behavior is normal. Judgment and thought content normal. Course 1251: Past medical records reviewed. The patient was evaluated in room A12B, and a complete history and physical examination were performed.The patient's EMR was reviewed which showed he has a history of Afib, pneumonia, seizures, anemia, AAA, COPD, HTN, and HLD. He was seen in his PCP's office this morning but was sent to the ED for having a pulse ox of 92-93%. The patient was recently admitted to [facility] from 01/29-01/30. He was on Doxy and Amoxicillin recently for sinusitis and was discharged with Zithromax and Cefdinir after this hospitalization. The patient has completed these courses. Prior to arrival, the patient received a breathing treatment at his PCP's office, per Jona SMITH. 1420: The patient's vital signs are stable. Her labs show a leukocytosis of 12.89 and a lactic acid of 3.0. The patient continues to having wheezing and rhonchi on exam. He will receive a duoneb treatment here in the ED. Given that his CXR showed a persistent infiltrate that has not resolved and his persistent pneumonia symptoms, he will be admitted for pneumonia and failed outpatient treatment. I discussed the patient's case with Radha Brizuela [facility] PAC under Dr. Noble Harrison [facility] Hospitalist. They will be accepting the patient for further evaluation. Radha also stated that she will place the consult with pulmonology for a possible bronchoscopy. Consultations Consultation #1: I discussed the patient's case with Radha Brizuela [facility] PAC under Dr. Dickey [facility] Hospitalist. They will be accepting the patient for further evaluation. Radha also stated that she will place the consult with pulm onology for a possible bronchoscopy. Time: 14:20 Administered Medications Discontinued Medications Albuterol (Duoneb) 3 ml NEB NOW STA Stop: 02/11/19 14:03 Last Admin: 02/11/19 14:22 Dose: 3 ml Documented by: [id number] Sodium Chloride (Nss 1000ml) 500 mls @ 999 mls/hr IV .Q31M ONE Stop: 02/11/19 14:31 Last Admin: 02/11/19 14:14 Dose: 999 mls/hr Documented by: [id number] Methylprednisolone (Solumedrol) 125 mg IV NOW STA Stop: 02/11/19 14:02 Last Admin: 02/11/19 14:14 Dose: 125 mg Documented by: [id number] Medical Decision Making Medical Records Attestation: I reviewed the patient's medical records. Home Medications Current Medication List: was personally reviewed by me Laboratory Data Attestation: I reviewed the patient's lab results. Result diagrams: 02/11/19 12:59 02/11/19 12:59 Lab Results 02/11/19 02/11/19 02/11/19 Range/Units 12:59 12:59 12:59 WBC 12.89 H (4.8-10.8) K/uL RBC 5.23 (4.7-6.1) M/uL Hgb 14.5 (14.0-18.0) g/dL Hct 43.9 (42-52) % MCV 83.9 (80-100) fL MCH 27.7 (25-34) pg MCHC 33.0 (32-36) g/dL RDW Std Deviation 52.8 H (36.4-46.3) fL RDW Coeff of Ashu 17.2 H (11.5-14.5) % Plt Count 254 (130-400) K/uL MPV 10.4 (7.4-10.4) fL Neutrophils % (Manual) 57.8 % Lymphocytes % (Manual) 11.2 % Monocytes % (Manual) 11.2 % Eosinophils % (Manual) 18.1 % Basophils % (Manual) 1.7 % Neutrophils # (Manual) 7.45 H (1.4-6.5) K/uL Total Absolute Neuts 7.45 H (1.4-6.5) K/uL Lymphocytes # (Manual) 1.44 (1.2-3.4) K/uL Total Abs Lymphocytes 1.44 (1.2-3.4) K/uL Monocytes # (Manual) 1.44 H (0.11-0.59) K/uL Eosinophils # (Manual) 2.33 H (0-0.5) K/uL Basophils # (Manual) 0.22 H (0-0.2) K/uL Microcytosis Present Echinocytes 1+ PT 10.9 (9.0-12.0) Seconds INR 1.1 (0.9-1.1) APTT 28.3 (21.0-31.0) Seconds PTT Ratio 1.0 VBG pH (7.36-7.41) VBG pCO2 (38-50) mmHg VBG pO2 mmHg VBG HCO3 mmol/L VBG O2 Saturation % VBG Base Excess mEq/L Barometric Pressure mm/Hg Sodium 137 (136-145) mmol/L Potassium 3.9 (3.5-5.1) mmol/L Chloride 103 (98-107) mmol/L Carbon Dioxide 24 (21-32) mmol/L Anion Gap 10.0 (3-11) BUN 19 H (7-18) mg/dl Creatinine 1.14 (0.6-1.4) mg/dl Est Cr Clr Drug Dosing Not Reportable Est GFR ( Amer) 71.5 Est GFR (Non-Af Amer) 61.7 BUN/Creatinine Ratio 16.3 (10-20) Glucose 87 (70-99) mg/dl Lactate (0.4-2.0) mmol/L Calcium 9.5 (8.5-10.1) mg/dl Total Bilirubin 0.4 (0.2-1) mg/dl Direct Bilirubin < 0.1 (0-0.2) mg/dl AST 19 (15-37) U/L ALT 19 (12-78) U/L Alkaline Phosphatase 96 (45-117) U/L Troponin I < 0.015 (0-0.045) ng/ml Total Protein 8.3 H (6.4-8.2) gm/dl Albumin 3.8 (3.4-5.0) gm/dl Influenza Type A (PCR) (Neg) Influenza Type B (PCR) (Neg) 02/11/19 02/11/19 02/11/19 Range/Units 12:59 12:59 13:00 WBC (4.8-10.8) K/uL RBC (4.7-6.1) M/uL Hgb (14.0-18.0) g/dL Hct (42-52) % MCV (80-100) fL MCH (25-34) pg MCHC (32-36) g/dL RDW Std Deviation (36.4-46.3) fL RDW Coeff of Ashu (11.5-14.5) % Plt Count (130-400) K/uL MPV (7.4-10.4) fL Neutrophils % (Manual) % Lymphocytes % (Manual) % Monocytes % (Manual) % Eosinophils % (Manual) % Basophils % (Manual) % Neutrophils # (Manual) (1.4-6.5) K/uL Total Absolute Neuts (1.4-6.5) K/uL Lymphocytes # (Manual) (1.2-3.4) K/uL Total Abs Lymphocytes (1.2-3.4) K/uL Monocytes # (Manual) (0.11-0.59) K/uL Eosinophils # (Manual) (0-0.5) K/uL Basophils # (Manual) (0-0.2) K/uL Microcytosis Echinocytes PT (9.0-12.0) Seconds INR (0.9-1.1) APTT (21.0-31.0) Seconds PTT Ratio VBG pH 7.43 H (7.36-7.41) VBG pCO2 38 (38-50) mmHg VBG pO2 45 mmHg VBG HCO3 25 mmol/L VBG O2 Saturation 83.6 % VBG Base Excess 0.7 mEq/L Barometric Pressure 735.6 mm/Hg Sodium (136-145) mmol/L Potassium (3.5-5.1) mmol/L Chloride (98-107) mmol/L Carbon Dioxide (21-32) mmol/L Anion Gap (3-11) BUN (7-18) mg/dl Creatinine (0.6-1.4) mg/dl Est Cr Clr Drug Dosing Est GFR ( Amer) Est GFR (Non-Af Amer) BUN/Creatinine Ratio (10-20) Glucose (70-99) mg/dl Lactate 3.0 H* (0.4-2.0) mmol/L Calcium (8.5-10.1) mg/dl Total Bilirubin (0.2-1) mg/dl Direct Bilirubin (0-0.2) mg/dl AST (15-37) U/L ALT (12-78) U/L Alkaline Phosphatase (45-117) U/L Troponin I (0-0.045) ng/ml Total Protein (6.4-8.2) gm/dl Albumin (3.4-5.0) gm/dl Influenza Type A (PCR) Neg for Influ A (Neg) Influenza Type B (PCR) Neg for Influ B (Neg) Imaging Data Radiologist's Impression: Radiology results as stated below per my review and the radiologist's interpretation: XR chest 1V portable HISTORY: Shortness of breath. COMPARISON: Chest 01/29/2019. FINDINGS: No pneumothorax. No pleural effusions. The heart remains mildly enlarg ed. No evidence for pulmonary edema. Improving right basilar density. No new focal lung consolidations. IMPRESSION: 1. Improvement in the right basilar airspace opacity. This may represent a resolving pneumonia. 2. Stable cardiomegaly. Electronically signed by: Reagan Villanueva M.D. 02/11/2019 2:02 PM ECG Data Attestation: I personally reviewed and interpreted this ECG as follows: Indication: SOB/dyspnea Rate (beats per minute): 70 Rhythm: other (Sinus arrhythmia ) Findings: + other (CA, QRS, and QTC intervals are WNL ) and + PAC; no ST depression, no ST elevation and no acute ischemic change Blood Pressure Blood Pressure Findings: Normal blood pressure MDM Narrative 1251: Past medical records reviewed. The patient was evaluated in room A12B, and a complete history and physical examination were performed.The patient's EMR was reviewed which showed he has a history of Afib, pneumonia, seizures, anemia, AAA, COPD, HTN, and HLD. He was seen in his PCP's office this morning but was sent to the ED for having a pulse ox of 92-93%. The patient was recently admitted to [facility] from 01/29-01/30. He was on Doxy and Amoxicillin recently for sinusitis and was discharged with Zithromax and Cefdinir after this hospitalization. The patient has completed these courses. Prior to arrival, the patient received a breathing treatment at his PCP's office, per Jona SMITH. 1420: The patient's vital signs are stable. Her labs show a leukocytosis of 12.89 and a lactic acid of 3.0. The patient continues to having wheezing and rhonchi on exam. He will receive a duoneb treatment here in the ED. Given that his CXR showed a persistent infiltrate that has not resolved and his persistent pneumonia symptoms, he will be admitted for pneumonia and failed outpatient treatment. I discussed the patient's case with Radha Brizuela - [facility] PAC under Dr. Dickey - [facility] Hospitalist. They will be accepting the patient for further ev aluation. Radha also stated that she will place the consult with pulmonology for a possible bronchoscopy. Impression & Plan Pneumonia, COPD exacerbation Discharge Plan Visit Data Chief Complaint: Respiratory Problems Stated Complaint: pneumonia ED Provider: Justino Palomares Discharge Problem: Pneumonia, COPD exacerbation Patient Disposition: Being Evaluated by Hospitalist Forms Stand Alone Forms: My [employer] Prescriptions Prescriptions: No Action cyanocobalamin (vitamin B-12) [Vitamin B-12] 1,000 mcg tablet 1,000 mcg PO QAM Qty: 180 RF: 1 metformin 1,000 mg tablet 1,000 mg PO BID Qty: 180 RF: 3 calcium carbonate-vitamin D3 600 mg(1,500mg) -400 unit tablet 2 tab PO PM RF: 0 albuterol sulfate 2.5 mg /3 mL (0.083 %) solution for nebulization 2.5 mg INH QID PRN (Reason: shortness of breath or wheezing) Qty: 90 RF: 3 albuterol sulfate [Ventolin HFA] 90 mcg/actuation HFA aerosol inhaler 2 puffs INH Q4H PRN (Reason: Shortness Of Breath) RF: 0 fluticasone propionate [Allergy Relief (fluticasone)] 50 mcg/actuation spray,suspension 1 - 2 sprays INTNAS DAILY RF: 0 montelukast 10 mg tablet 10 mg PO PM RF: 0 diltiazem HCl [Cartia XT] 240 mg capsule,extended release 24hr 240 mg PO PM RF: 0 Vitamin D3 4,000 unit Capsule 4,000 unit PO PM RF: 0 Trelegy Ellipta 100-62.5-25 mcg Blister With Device 1 inh INHALATION QAM RF: 0 glimepiride 2 mg tablet 4 mg PO QAM RF: 0 levothyroxine [Synthroid] 25 mcg tablet 25 mcg PO PM RF: 0 levetiracetam [Keppra] 500 mg Tablet 1,000 mg PO BID Qty: 60 RF: 0 aspirin [Aspir-81] 81 mg Tablet,Delayed Release (Dr/Ec) 81 mg PO BID RF: 0 sertraline [Zoloft] 50 mg tablet 50 mg PO QAM RF: 0 Eliquis 5 mg Tablet 5 mg PO BID RF: 0 atorvastatin [Lipitor] 40 mg tablet 40 mg PO PM RF: 0 lisinopril 20 mg tablet 20 mg PO PM RF: 0 Referrals Referrals: Lorna Tucker DO [Primary Care Provider] - Discharge Problem: Pneumonia Qualifiers: Pneumonia type: due to unspecified organism Laterality: right Lung location: middle lobe of lung Qualified Code(s): J18.1 - Lobar pneumonia, unspecified organism The scribe's documentation has been prepared under my direction and personally reviewed by me in its entirety. I confirm that the note above accurately reflects all work, treatment, procedures, and medical decision making performed by me.
[2019-02-11] MEDS ORDERED: LEVALBUTEROL HCL 1.25 MG/3 ML NEB NEB PRN (14:46)
--- NOTE | 2019-02-11 15:53 | Pulmonary Consultation ---
Date of Consultation February 11, 2019 Assessment & Plan (1) Acute pneumonia: Patient has a right lower lobe infiltrate and a history of seizure. There is a possibility that this may represent an aspiration pneumonia. Start him on 40 mg of prednisone for 5 days total. Recommend non-contrast CT of the chest to further evaluate the parenchyma and airways. Recommend a speech evaluation with a swallow study. Continue antibiotics covering for anaerobes. Obtain an MRSA nasal screen. Obtain a procalcitonin. Start duo nebs every 6 hours as needed. Start nasal rinses and nasal steroid spray for sinusitis. I will continue to follow the patient along with you. Thank you for the consult. Present on Admission?: Yes (2) Seizure: (3) COPD exacerbation: (4) Cough productive of purulent sputum: (5) Dyspnea: Dyspnea type: dyspnea on exertion Qualified Code(s): R06.09 - Other forms of dyspnea (6) Sinusitis: History of Present Illness Reason for Consultation: Pneumonia with a question for possible bronchoscopy. 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 Patient was recently discharged from the hospital ocularly 2 weeks ago for community-acquired pneumonia and sent home on antibiotics. Patient is a poor historian, however, the is present in the room with him. She states that he has been on numerous antibiotics for the last 3 to 4 weeks with minimal improvement in symptoms. He continues to have a cough with phlegm. He continues to have shortness of breath and wheezing on exertion. He does have baseline severe dyspnea on exertion and is only able to walk about 15 feet. Patient and deny any nausea, vomiting, fevers, chills or weight loss. He does endorse some sinus issues and a runny nose. He is an established patient with Dr. Joseluis lundberg in the pulmonary clinic. He has PFTs demonstrate moderate obstructive ventilatory defect with an FEV1 of 64% predicted. On his last admission earlier this month he was found to have seizure and started on Keppra 1000 mg twice daily. He was also found to have a right lower lobe pneumonia at that time. Chest x-ray on this admission demonstrates continued evidence of right lower lobe infiltrate that is improving. Vital signs in the emergency department have been stable. He is saturating well on room air at 92%. He does desaturate at times when speaking. His WBC is elevated to 12,800. Venous blood gas was obtained which demonstrates a pH 7.43 and PCO2 of 38. EKG was sinus rhythm with occasional premature atrial complexes. Vancomycin and Zosyn were started the emergency department. At home he uses a fluticasone/Umeclidinium/Vilanterol inhaler along with albuterol as needed. He was seen by his PCP today who sent him to the ED. Allergies Allergy/AdvReac Type Severity Reaction Status Date / Time pollen extracts Allergy Mild CONGESTION Verified 02/11/19 13:48 Home Medications Home Medications Medication Instructions Recorded Confirmed Type Eliquis 5 mg PO BID 02/02/18 02/11/19 History aspirin [Aspir-81] 81 mg PO BID 02/02/18 02/11/19 History sertraline [Zoloft] 50 mg PO QAM 02/02/18 02/11/19 History cyanocobalamin (vit B-12) 1,000 1,000 mcg PO QAM #180 tab 10/22/18 02/11/19 Rx mcg tablet metformin 1,000 mg tablet 1,000 mg PO BID #180 tab 10/22/18 02/11/19 Rx albuterol sulfate HFA 90 2 puffs INH Q4H PRN gm 01/16/19 02/11/19 History mcg/actuation aerosol inhaler calcium carbonate 600 mg (1,500 2 tab PO PM 01/16/19 02/11/19 History mg)-vitamin D3 400 unit tablet albuterol sulfate 2.5 mg/3 mL 2.5 mg INH QID PRN #90 ml 01/18/19 02/11/19 Rx (0.083 %) solution for nebulization Trelegy Ellipta 1 inh INHALATION QAM 01/29/19 02/11/19 History Vitamin D3 4,000 unit PO PM 01/29/19 02/11/19 History glimepiride 4 mg PO QAM 01/29/19 02/11/19 History levothyroxine [Synthroid] 25 mcg PO PM 01/29/19 02/11/19 History levetiracetam [Keppra] 1,000 mg PO BID #60 tab 01/30/19 02/11/19 Rx diltiazem CD 240 mg 240 mg PO PM cap 02/02/19 02/11/19 History capsule,extended release 24 hr fluticasone propionate 50 1 - 2 sprays INTNAS DAILY gm 02/02/19 02/11/19 History mcg/actuation nasal spray,suspension montelukast 10 mg tablet 10 mg PO PM tab 02/02/19 02/11/19 History atorvastatin [Lipitor] 40 mg PO PM 02/11/19 02/11/19 History lisinopril 20 mg PO PM 02/11/19 02/11/19 History Patient History Medical History Seizure (Acute) Abdominal aortic aneurysm (AAA), 30-34 mm diameter (Chronic) Anemia (Chronic) Arteriosclerotic coronary artery disease (Chronic) 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, moderate (Chronic) Chronic anticoagulation (Chronic) Chronic rhinitis (Chronic) Depression (Chronic) Dyslipidemia (Chronic) Hypertension (Chronic) Hypothyroidism (acquired) (Chronic) Mild cognitive impairment (Chronic) Nocturnal hypoxia (Chronic) Osteoporosis (Chronic) Tinnitus of both ears (Chronic) Tubular adenoma of colon (Chronic) Type 2 diabetes mellitus (Chronic) Vitamin B12 deficiency (Chronic) Vitamin D deficiency (Chronic) Asthma (Chronic) Atrial flutter Paroxysmal atrial fibrillation (Chronic) TIA (transient ischemic attack) Pneumonia (Resolved) Surgical History H/O Mohs micrographic surgery for skin cancer Family History Other COPD (chronic obstructive pulmonary disease) Depression Family history non-contributory Social History Preferred Language: Ukrainian Communication Ability: Effective Visual Impairment: No Limitations Hearing Ability: Use of Hearing Aid Beliefs That Will Affect Care: None marital status: Current Living Situation: Spouse current occupational status: retired 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, 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[employer] ([place]) Feels Safe at Home: Yes Smoking Status: Former smoker Number of Years Since Quit: 34 ; Hx Alcohol Use: No Hx Substance Use: No Childhood Exposure to Second-Hand Smoke: Yes caffeine: No Dental Care, Regularly: No Physical Activity Frequency: Does not Exercise Seatbelt Use: always Review of Systems Review of Systems: All systems reviewed & are unremarkable except as noted in HPI & below Physical Exam Constitutional: WD/WN, vitals as above Eyes: PERRL, conjunctivae normal, anicteric sclerae ENMT: external ear and nose normal, oropharynx normal Neck: normal visual inspection Respiratory: normal respiratory effort, lungs clear to auscultation Cardiovascular: RRR, no murmur, no edema Gastrointestinal (Abdomen): normal bowel sounds, soft, nontender, no hepatosplenomegaly Musculoskeletal: no cyanosis or clubbing, extremities motor strength 5/5 Neurologic: PERRL, EOMI, accommodation nl, no face palsy, no dysarthria CN's II-XI intact bilaterally Psychiatric: A+Ox3, euthymic affect Lymphatic: no cervical or axillary lymphadenopathy Results & Data Vital Signs (Past 12 Hours) Vital Signs Temp Pulse Pulse Resp BP BP Pulse Ox 02/11/19 14:29 89 20 92 02/11/19 14:19 90 22 119/76 92 02/11/19 12:43 97.7 F 104 H 20 119/75 92 Chest x-ray and CBC were personally reviewed. PG Care Time/CCT Total # of Minutes Spent Total Time Spent with Patient: Total time spent is greater than 50% in coordination of care (as documented) at patient's floor/unit and/or counseling patient:
[2019-02-11] MEDS ORDERED: ALBUTEROL HFA 8 GM INHALER INH PRN (16:43)
[2019-02-11] MEDS ORDERED: GLUCAGON FOR INJ 1 MG VIAL SQ PRN (16:43)
[2019-02-11] MEDS ORDERED: GLUCOSE 40% GEL 15 GM TUBE PO PRN (16:43)
[2019-02-11] MEDS ORDERED: DEXTROSE 50% 50 ML SYRINGE IV PRN (16:43)
[2019-02-11] MEDS ORDERED: GLUCOSE 10 TABS/TUBE PO PRN (16:43)
[2019-02-11] MEDS ORDERED: CARBOHYDRATES FOR HYPOGLYCEMIA PO PRN (16:43)
[2019-02-11] MEDS ORDERED: methylPREDNISolone 40 MG in SYRINGE 0 ML IV SCH (16:43)
[2019-02-11] MEDS ORDERED: PHARMACY GLYCEMIC MGMT CONSULT PRN (17:02)
[2019-02-11] MEDS ORDERED: INSULIN ASPART 100 UNITS/ML 3 ML PEN SC SCH (17:30)
[2019-02-11] MEDS ORDERED: PIPERACILL/TAZOBAC CONSULT ACTIVE PRN (17:55)
[2019-02-11] MEDS ORDERED: LEVOFLOXACIN/D5W 750 MG/150 ML BAG IV SCH (18:00)
[2019-02-11] MEDS: INSULIN ASPART 100 UNITS/ML 3 ML PEN SC SCH ×3 (18:26→23:58)
[2019-02-11] MEDS: LEVALBUTEROL HCL 1.25 MG/3 ML NEB NEB SCH (19:02)
[2019-02-11] MEDS ORDERED: LEVOTHYROXINE SODIUM 25 MCG TABLET PO SCH (20:00)
[2019-02-11] MEDS: CHOLECALCIFEROL 1,000 UNITS TAB PO SCH (20:26)
[2019-02-11] MEDS: ATORVASTATIN 40 MG TAB PO SCH (20:26)
[2019-02-11] MEDS: ASPIRIN 81 MG ECTAB PO SCH (20:26)
[2019-02-11] MEDS: APIXABAN 5 MG TABLET PO SCH (20:27)
[2019-02-11] MEDS: LISINOPRIL 20 MG TAB PO SCH (20:27)
[2019-02-11] MEDS: BENZONATATE 100 MG CAPSULE PO SCH (20:28)
[2019-02-11] MEDS: MONTELUKAST SODIUM 10 MG TABLET PO SCH (20:28)
[2019-02-11] MEDS: CALCIUM 600MG + VIT D 400 IU TAB PO SCH (20:28)
[2019-02-11] MEDS: levETIRAcetam 500 MG TAB PO SCH (20:29)
[2019-02-11] MEDS: guaiFENesin 600 MG TABCR PO SCH (20:29)
[2019-02-11] MEDS: dilTIAZem HCL 240 MG CAPCR PO SCH (20:29)
[2019-02-11] MEDS: PIPERACILLIN/TAZOBACTAM 3.375 GM in DEXTROSE 5% 100 ML IV SCH (20:32)
--- NOTE | 2019-02-11 21:44 | CT Scan Report ---
CT SCAN OF THE CHEST WITHOUT IV CONTRAST CLINICAL HISTORY: Aspiration pneumonia. COMPARISON STUDY: Chest CT dated 06/07/2012. Chest x-ray dated 02/11/2019. TECHNIQUE: CT scan of the thorax was performed from the thoracic inlet to the upper abdomen. Images are reviewed in the axial, sagittal, and coronal planes. IV contrast was not administered for this ex amination as per the referring clinician. A dose lowering technique was utilized adhering to the [facility] DOSE: 488.04 mGycm FINDINGS: Thyroid: Imaged portions of the thyroid gland are normal in size and heterogeneous in attenuation. Thoracic aorta: There is atherosclerotic calcification of the thoracic aorta, which is normal in [facility] and demonstrates standard 3-vessel arch anatomy. Heart: The heart is enlarged and without pericardial effusion. The coronary arteries are densely calc ified. Lungs and pleural spaces: Evaluation of the lung parenchyma is degraded by motion artifact. Emphysema tous change is noted. Secretions are seen in the trachea. There is a 1.3 cm lobulated nodule at the r ight lung base seen on image #232. A 4 mm left lower lobe nodule on image #136 is also new from prev ious. Patchy tree-in-bud nodularity is present at both lung bases, left greater than right. Mild tree -in-bud nodularity is also seen in the right upper lobe. Parenchymal scarring in the lingula is uncha nged dating back to 2013. There is no pleural effusion. Mediastinum: There is no mediastinal lymphadenopathy. Larisa: Not well assessed without IV contrast. Axillae: There is no axillary lymphadenopathy. Upper abdomen: There is a small hiatal hernia. A 2 cm lower right adrenal nodule meets CT criteria fo r a fat-containing adenoma. This is unchanged from 2013. Skeletal structures: The skeletal structures are osteopenic. No lytic or blastic bony lesions are see n. There are healed left-sided rib fractures. Soft tissues: A 2.9 cm sebaceous cyst is present in the right anterior chest wall on image #105. A 2. 2 cm sebaceous cyst in the left axilla is seen on image #89. IMPRESSION: 1. Cardiomegaly and emphysema. 2. There is a 1.3 cm lobulated nodule at the right lung base. This is new from 2013 and highly concer criselda for neoplasm. A primary pulmonary neoplasm or possibly a low-grade neoplasm such as carcinoid co uld have this appearance. Surgical consultation is advised. 3. A 4 mm left lower lobe pulmonary nodule is also new from 2013. Attention at follow-up is recommend ed. 4. Patchy tree-in-bud nodularity is seen in the right upper lobe and at both lung bases. This likely represents a mild infectious/inflammatory pneumonitis. Clinical correlation will be required. 5. Additional findings as above. Electronically signed by: Eze Chairez M.D. 02/11/2019 9:41 PM
[2019-02-11] MEDS ORDERED: INSULIN HUMAN NPH SC STA (21:47)
[2019-02-12] MEDS: LEVALBUTEROL HCL 1.25 MG/3 ML NEB NEB SCH ×4 (01:39→19:25)
[2019-02-12] MEDS: PIPERACILLIN/TAZOBACTAM 3.375 GM in DEXTROSE 5% 100 ML IV SCH (04:31)
[2019-02-12] MEDS: INSULIN ASPART 100 UNITS/ML 3 ML PEN SC SCH ×6 (04:38→21:46)
[2019-02-12 07:07] LABS: Hematocrit (blood only) 40.6 % (42-52); Hemoglobin 13.7 g/dL (14.0-18.0); Mean Corpuscular Hgb Conc 33.7 g/dL (32-36); Mean Platelet Volume 9.9 fL (7.4-10.4); Platelet Count 238 K/uL (130-400); RDW Coefficient of Variation 16.9 % (11.5-14.5); RDW Standard Deviation 51.8 fL (36.4-46.3); Red Blood Count 4.89 M/uL (4.7-6.1); White Blood Count 7.06 K/uL (4.8-10.8)
[2019-02-12 07:37] LABS: Albumin Level 3.7 gm/dl (3.4-5.0); Calcium 9.4 mg/dl (8.5-10.1); Est GFR (African American) 83.8; Est GFR (Non-African American) 72.3; Potassium 4.3 mmol/L (3.5-5.1)
[2019-02-12 07:40] LABS: Albumin Globulin Ratio 0.9 (0.9-2); Bilirubin,Total 0.5 mg/dl (0.2-1); Globulin 4.3 gm/dl (2.5-4.0)
[2019-02-12] MEDS ORDERED: VANCOMYCIN HCL 1,250 MG in SODIUM CHLORIDE 0.9% 250 ML IV SCH (08:00)
[2019-02-12] MEDS ORDERED: INSULIN HUMAN NPH SC ONE (08:15)
[2019-02-12] MEDS: ASPIRIN 81 MG ECTAB PO SCH ×2 (08:26→20:55)
[2019-02-12] MEDS: APIXABAN 5 MG TABLET PO SCH ×2 (08:26→20:54)
[2019-02-12] MEDS: guaiFENesin 600 MG TABCR PO SCH ×2 (08:27→20:55)
[2019-02-12] MEDS: predniSONE 10 MG TABLET PO SCH (08:27)
[2019-02-12] MEDS: levETIRAcetam 500 MG TAB PO SCH ×2 (08:27→20:54)
[2019-02-12] MEDS: BENZONATATE 100 MG CAPSULE PO SCH ×3 (08:27→21:07)
[2019-02-12] MEDS: CYANOCOBALAMIN 500 MCG TABLET (VITAMIN B-12) PO SCH (08:27)
[2019-02-12] MEDS: SERTRALINE HCL 50 MG TABLET PO SCH (08:28)
[2019-02-12] MEDS: PANTOprazole 40 MG TAB PO SCH (10:40)
--- NOTE | 2019-02-12 12:54 | Pulmonology Progress Note ---
Date of Service February 12, 2019 Assessment & Plan (1) COPD exacerbation: Continue PO prednisone 40 mg for 5 days total. PCT negative. CT chest not concerning for an acute infiltrate. He does have small bibasilar tree-in-bud opacities which maybe related to chronic aspiration. Barium swallow and speech results pending. Recommend continued protonix. 1.3cm pulmonary nodule seen in the RLL. Recommend thoracic surgery referral as outpatient. No significant mediastinal adenopathy seen. Recommend nasal steroids and saline rinses for sinus issues. Consider outpatient ENT referral. Case discussed with the hospitalist and Dr. Lynn of thoracic surgery, personally. Okay for discharge today from pulmonary perspective. (2) Cough productive of purulent sputum: (3) Dyspnea: Dyspnea type: dyspnea on exertion Qualified Code(s): R06.09 - Other forms of dyspnea (4) Sinusitis: Chronicity: subacute Sinusitis location: unspecified location Qualified Code(s): J01.90 - Acute sinusitis, unspecified (5) Seizure: Subjective Patient feels much better today. Ambulating well. Denies any dyspnea or chest pain. No fevers, chills or night sweats. Physical Exam Constitutional: WD/WN, vitals as above Eyes: PERRL, conjunctivae normal, anicteric sclerae ENMT: external ear and nose normal, oropharynx normal Neck: normal visual inspection Respiratory: normal respiratory effort, lungs clear to auscultation Cardiovascular: RRR, no murmur, no edema Gastrointestinal (Abdomen): normal bowel sounds, soft, nontender, no hepatosplenomegaly Musculoskeletal: no cyanosis or clubbing, extremities motor strength 5/5 Neurologic: PERRL, EOMI, accommodation nl, no face palsy, no dysarthria CN's II-XI intact bilaterally Psychiatric: A+Ox3, euthymic affect Lymphatic: no cervical or axillary lymphadenopathy Results & Data Vital Signs (Past 12 Hours) Vital Signs Temp Pulse Resp BP Pulse Ox 02/12/19 07:01 75 16 97 02/12/19 06:17 98.1 F 66 18 129/63 96 02/12/19 01:39 89 18 95 I personally reviewed the relevant labs and CT images. PG Care Time/CCT Total # of Minutes Spent Total Time Spent with Patient: Total time spent is greater than 50% in coordination of care (as documented) at patient's floor/unit and/or counseling patient:
[2019-02-12 12:57] LABS: Calcium 9.7 mg/dl (8.5-10.1); Creatinine Clr Calc Pharmacy 55.9 ml/min; Est GFR (African American) 73.8; Est GFR (Non-African American) 63.7; Potassium 4.5 mmol/L (3.5-5.1)
[2019-02-12 13:14] LABS: Beta-Hydroxybutyrate 1.29 mg/dl (0.2-2.81)
--- NOTE | 2019-02-12 14:04 | Fluoroscopy Report ---
FL video swallow HISTORY: Aspiration TECHNIQUE: Video fluoroscopic evaluation of swallowing was performed in the AP and lateral projection s by the speech pathology staff. The patient is fed nectar-thick and thin liquid barium, a barium coa tristin wafer, and barium pudding. FLUOROSCOPY TIME: 1.6 minutes. A cine loop submitted. COMPARISON STUDY: None. FINDINGS: There is normal hyoid excursion and epiglottic deflection. A few episodes of penetration wi thout aspiration identified. Swallowing function is within normal limits. IMPRESSION: 1. No aspiration identified. 2. Please see the speech pathologist report for detailed findings and recommendations. Electronically signed by: Reagan Villanueva M.D. 02/12/2019 2:02 PM
--- NOTE | 2019-02-12 15:00 | Pharmacy Report ---
Glycemic Control Consultation - Date of Service February 12, 2019 - Scope Scope: Glycemic Pharmacist consulted for glycemic control and to write orders per [facility] inpatient glycemic control protocol - Objective Weight: 70.9 kg Accuchecks BSG (last 24hrs): 02/11/19 02/11/19 02/11/19 16:32 19:53 23:54 Glucose POC Glucose 131 H 254 H 238 H 02/12/19 02/12/19 02/12/19 04:34 06:53 07:50 Glucose 193 H POC Glucose 149 H 212 H 02/12/19 02/12/19 02/12/19 12:02 12:03 12:07 Glucose 322 H* POC Glucose 303 H* 307 H* 02/12/19 14:17 Glucose POC Glucose 235 H Laboratory Data (last 24hrs): 02/12/19 02/12/19 06:53 12:07 Potassium 4.3 4.5 Carbon Dioxide 23 22 Anion Gap 11.0 10.0 Creatinine 1.00 1.11 Est Cr Clr Drug Dosing 62.0 55.9 Beta-Hydroxybutyric Acd 1.29 - Recent Pertinent Medications Outpatient Anti-diabetic Regimen: * Metformin * Glimepiride * A1c = 6.9 % on 01/30/19 The patient is currently receiving: * Basal insulin: Insulin NPH 14 units SC 10/7 PM * Correctional Insulin: Novolog Correction per scale ACHS Goal Range: Low 110 mg/dL - High 140 mg/dL Correction Factor: 25 mg/dL/unit * Prandial insulin: Per carb ratio of 1 unit per 8 grams CHO consumed * Oral Agents: On hold for admission Risk Factors for Insulin Resistance: * Steroids: mehtylprednisolone 125 mg IV x1 yesterday afternoon, then prednisone 40 mg po qAM * Infection: possible aspiration PNA, but now antibiotics have been stopped * Diet: T2DM - Assessment & Plan Assessment & Plan: ASSESSMENT: * 78 yo M with T2DM with good outpatient control on two oral agents alone with steroid-induced hyperglycemia * Will continue to utilize NPH as basal insulin to mimic pharmacokinetics of prednisone. Dose increase today for AM fasting BSG > 200 mg/dL * Will utilize close to weight-based severe stress estimate for Novolog. May consider tightening tomorrow if post-prandial BSG's persistently elevated today PLAN FOR INPATIENT GLYCEMIC CONTROL: * Holding outpatient oral diabetes medications * Basal insulin * Insulin NPH 18 units SQ x1 this AM * Bolus insulin * NovoLog per scale ACHS or Q6hrs while NPO * Goal Range: Low 120 mg/dL - High 160 mg/dL * Correction Factor: 30 mg/dL/unit * Nutritional / Prandial insulin per carb ratio of 1 unit per 9 grams CHO consumed * Please note that the plan above was derived based on current level of insulin resistance and hospital stress. These recommendations are appropriate for inpatient admission only. Plan of care upon discharge will need to be reassessed to avoid potential outpatient hypo/hyperglycemia. Thank you.
[2019-02-12] MEDS ORDERED: PHARMACY GLYCEMIC MGMT CONSULT STA ×2 (15:29→18:24)
[2019-02-12] MEDS: SODIUM CHLORIDE 0.9% 1000ML 1,000 ML IV SCH (16:12)
[2019-02-12] MEDS: TRELEGY INH SCH (19:29)
[2019-02-12] MEDS: CALCIUM 600MG + VIT D 400 IU TAB PO SCH (20:51)
[2019-02-12] MEDS: ATORVASTATIN 40 MG TAB PO SCH (20:54)
[2019-02-12] MEDS: LEVOTHYROXINE SODIUM 25 MCG TABLET PO SCH (20:56)
[2019-02-12] MEDS: MONTELUKAST SODIUM 10 MG TABLET PO SCH (20:57)
[2019-02-12] MEDS: CHOLECALCIFEROL 1,000 UNITS TAB PO SCH (20:58)
[2019-02-12] MEDS: LISINOPRIL 20 MG TAB PO SCH (20:59)
[2019-02-12] MEDS: dilTIAZem HCL 240 MG CAPCR PO SCH (21:04)
--- NOTE | 2019-02-12 22:51 | Hospitalist Progress Note ---
Date of Service February 12, 2019 Assessment & Plan (1) Pneumonia: - admit to med surg Will switch to OBS. -WBC has improved, Procalcitonin was negative. had patient evaluated by pulmonary. Does not believe to be aspiration pneumonia. will keep patient overnight to recheck lactic acid. (2) COPD, moderate: - Pt recently completed course of prednisone along with antibiotics, does not appear to be a COPD exacerbation but he was covered with IV solumedrol 125 mg IV in the ER x 1. Hold on further steroids at this time. - Pulm consult as above to further eval - CXR reviewed (3) Paroxysmal atrial fibrillation: - Continue eliquis, currently in NSR (4) Hypertension: - Cont diltiazem 240 mg daily, asa 81 mg, lisinopril 20 mg QPM (5) Dyslipidemia: - cont statin therapy (6) Hypothyroidism (acquired): - Cont levothyroxine (7) Osteoporosis: - Cont vit d supplementation (8) Depression: - Cont zoloft (9) Vitamin D deficiency: - Cont Vit D deficiency (10) Vitamin B12 deficiency: - Cont Vit B supplementation (11) Chronic anticoagulation: - noted as above (12) Type 2 diabetes mellitus: - Hold glimepiride and metformin for now, ISS with accuchecks achs - Check A1C with am labs - HH/DM diet (13) Lung nodule: will refer patient to thoracic surgeon. (14) Sinusitis: will defer to ENT (15) Lactic acidosis: Lactic acidosis, however, patient appears to be doing clinically well. Now showing any signs of hypoerfusion. Will give IVF. wILL RECHECK IN am. May also be elevated from repeat beat agonist inhaler, occult malignancy may also be a possibility. (16) DVT prophylaxis: - teds, eliquis CODE: Full code The patient medical record and course of care was reviewed by 2 providers. It has been determined that services did not meet inpatient criteria. Dr. Michelle Molina and Dr. Low Agudelo Subjective Patient reports feeling better. He denies any episodes of SOB. Patient denies any nausea or vomting. He does complain of sinusitis. Review of Systems Review of Systems: All systems reviewed & are unremarkable except as noted in HPI & below Physical Exam Physical Exam: General: awake, alert, no apparent distress, + thin Head: Normocephalic, atraumatic ENT: PERRL, EOMI, no pharyngeal exudate, mucous membranes moist Chest: + Barrel chested, diminished breath sounds throughout, on room air with O2 sats of 92%, no adventitious breath sounds Cardiac: Regular rate and rhythm, no murmur, no JVD, normal peripheral pulses, good capillary refill Abdominal: NABS x 4 quadrants, soft, nontender to palpation, no rebound, guarding or tenderness Extremities: Normal inspection, no peripheral edema or erythema, calfs nontender to palpation Psych: Normal mood and affect Neuro: AAO x 3, no motor deficits, speech is clear, no peripheral sensory deficits Skin: no rash or erythema Results & Data Vital Signs (Past 12 Hours) Vital Signs Temp Pulse Resp BP Pulse Ox 02/12/19 21:57 96 02/12/19 19:25 82 20 96 02/12/19 15:24 36.5 C 81 18 123/70 95 02/12/19 13:04 61 18 97 PG Care Time/CCT Total # of Minutes Spent Total Time Spent with Patient: Total time spent is greater than 50% in coordination of care (as documented) at patient's floor/unit and/or counseling patient: (1) Pneumonia Laterality: right Lung location: middle lobe of lung Pneumonia type: due to unspecified organism Qualified Code(s): J18.1 - Lobar pneumonia, unspecified organism (2) Sinusitis Sinusitis location: unspecified location Chronicity: subacute Qualified Code(s): J01.90 - Acute sinusitis, unspecified
[2019-02-13] MEDS: LEVALBUTEROL HCL 1.25 MG/3 ML NEB NEB SCH ×3 (01:13→13:26)
[2019-02-13] MEDS ORDERED: INSULIN ASPART 100 UNITS/ML 3 ML PEN SC ONE (02:00)
[2019-02-13] MEDS: SODIUM CHLORIDE 0.9% 1000ML 1,000 ML IV SCH (03:58)
[2019-02-13] MEDS: LEVOTHYROXINE SODIUM 25 MCG TABLET PO SCH (06:05)
[2019-02-13 06:53] LABS: Hematocrit (blood only) 38.7 % (42-52); Hemoglobin 12.8 g/dL (14.0-18.0); Mean Corpuscular Hemoglobin 27.8 pg (25-34); Mean Corpuscular Hgb Conc 33.1 g/dL (32-36); Mean Corpuscular Volume 84.1 fL (80-100); Mean Platelet Volume 10.1 fL (7.4-10.4); Platelet Count 245 K/uL (130-400); RDW Coefficient of Variation 17.3 % (11.5-14.5); RDW Standard Deviation 53.4 fL (36.4-46.3); White Blood Count 14.03 K/uL (4.8-10.8)
[2019-02-13] MEDS ORDERED: INSULIN HUMAN NPH SC ONE (07:30)
[2019-02-13 07:37] LABS: Albumin Globulin Ratio 0.9 (0.9-2); Albumin Level 3.6 gm/dl (3.4-5.0); BUN Creatinine Ratio 18.9 (10-20); Bilirubin,Total 0.3 mg/dl (0.2-1); Calcium 8.7 mg/dl (8.5-10.1); Creatinine Clr Calc Pharmacy 66.7 ml/min; Est GFR (African American) 91.5; Est GFR (Non-African American) 78.9; Globulin 3.9 gm/dl (2.5-4.0); Potassium 3.7 mmol/L (3.5-5.1); Total Protein 7.5 gm/dl (6.4-8.2)
[2019-02-13] MEDS: predniSONE 10 MG TABLET PO SCH (08:38)
[2019-02-13] MEDS: SERTRALINE HCL 50 MG TABLET PO SCH (08:38)
[2019-02-13] MEDS: PANTOprazole 40 MG TAB PO SCH (08:38)
[2019-02-13] MEDS: APIXABAN 5 MG TABLET PO SCH (08:38)
[2019-02-13] MEDS: CYANOCOBALAMIN 500 MCG TABLET (VITAMIN B-12) PO SCH (08:41)
[2019-02-13] MEDS: BENZONATATE 100 MG CAPSULE PO SCH ×2 (08:41→13:25)
[2019-02-13] MEDS: levETIRAcetam 500 MG TAB PO SCH (08:41)
[2019-02-13] MEDS: guaiFENesin 600 MG TABCR PO SCH (08:41)
[2019-02-13] MEDS: ASPIRIN 81 MG ECTAB PO SCH (08:42)
[2019-02-13] MEDS: TRELEGY INH SCH (08:43)
[2019-02-13] MEDS: INSULIN ASPART 100 UNITS/ML 3 ML PEN SC SCH ×2 (08:47→13:17)
--- NOTE | 2019-02-13 13:04 | Pharmacy Report ---
Pharmacy Glycemic Short Note 2 - Date of Service February 13, 2019 - Glycemic Short BSG Results (Last 24 hours): 02/12/19 02/12/19 02/12/19 12:07 14:17 17:05 Glucose 322 H* POC Glucose 235 H 174 H 02/12/19 02/12/19 02/12/19 20:17 20:18 23:08 Glucose POC Glucose 306 H* 306 H* 222 H 02/13/19 02/13/19 02/13/19 02:34 06:30 08:01 Glucose 142 H POC Glucose 156 H 121 H 02/13/19 11:58 Glucose POC Glucose 84 Outpatient Anti-diabetic Regimen: * Metformin * Glimepiride * A1c = 6.9 % on 01/30/19 The patient is currently receiving: * Basal insulin: Insulin NPH 14 units SC 10 PM and 18 units 108 AM * Correctional Insulin: Novolog Correction per scale ACHS Goal Range: Low 120 mg/dL - High 160 mg/dL Correction Factor: 30 mg/dL/unit * Prandial insulin: Per carb ratio of 1 unit per 9 grams CHO consumed * Oral Agents: On hold for admission Risk Factors for Insulin Resistance: * Steroids: mehtylprednisolone 125 mg IV x1 02/11 afternoon, then prednisone 40 mg po qAM starting 108 AM * Diet: T2DM ASSESSMENT: * 78 yo M with T2DM with good outpatient control on two oral agents alone with steroid-induced hyperglycemia * Will continue to utilize NPH as basal insulin to mimic pharmacokinetics of prednisone. AM fasting BSG in goal range today at 121 mg/dL, but will still increase dose very slightly as this may help better manage post-prandial elevations noted yesterday and is unlikely to contribute to AM fasting hypogly cemia given shorter duration of effect * Significant post-prandial elevations persisted yesterday 307, 174, and 306 mg/dL. Novolog parameters tightened this AM. However, BSG's decreased significantly after this change from breakfast to lunch - BSG dropped 121 to 84 mg/dL. Will therefore re-loosen CHO ratio to previous but keep tighter correction factor. PLAN FOR INPATIENT GLYCEMIC CONTROL: * Holding outpatient oral diabetes medications * Basal insulin: Insulin NPH 20 units SQ x1 this AM then ongoing qAM based on BSG * 15 units for BSG less than 110 mg/dL * 20 units for BSG 110-150 mg/dL * 25 units for BSG greater than 150 mg/dL * Bolus insulin * NovoLog per scale ACHS or Q6hrs while NPO * Goal Range: Low 110 mg/dL - High 140 mg/dL * Correction Factor: 25 mg/dL/unit * Nutritional / Prandial insulin per carb ratio of 1 unit per 9 grams CHO consumed PLAN FOR DISCHARGE: * Depends on plan for outpatient steroids. * If patient will not be discharged on steroids, OK to resume home metformin and glimepiride if renal function doesn't worsen significantly
[2019-02-14] MEDS ORDERED: INSULIN HUMAN NPH SC SCH (07:30)
--- NOTE | 2019-02-24 23:11 | Discharge Summary ---
Date of Service February 13, 2019 Admission HPI Per Admitting Provider This is a a 78 yo M with PMHx of COPD, HTN, HLD, DM II, Hypothyroidism, paroxysmal afib, BPH, with recent acute sinusitis and pneumonia issues where he was hospitalized at the end of January for an episode of seizure like activity. Prior to this seizure-like activity he was having issues with sinusitis/URI and was placed on doxycycline and amoxicillin where he completed a course, his symptoms did not improve. He was admitted from 01/29-01/30 where he was placed on Rocephin and azithromycin IV, then was discharged and transitioned to PO cefdinir x 7 days and azithromycin x 4 days to complete full courses. Pts is present with him at bedside. He reports that he's been doing fine since being discharged however noticed that he is been having difficulty with shortness of breath in the last few days. His notes that this started specifically when he finished his antibiotic courses approximately 5 to 6 days ago. He has a wet cough, bringing up white to clear sputum throughout the day. He denies any fevers, chills or sweats. He does feel deconditioned, reports he was "as weak as a kitten" whenever he left the hospital during his last admission. He has been able to eat and drink without difficulty. Patient took all his medications today. He was over at his PCPs office when he was noted to be mildly hypoxic at 91 to 92% on room air therefore was sent here to the ER. Patient has a mild white count of 12 K, lactic acid of 3.0. Chest x-ray shows possibly resolving pneumonia from previous admission. Principal Diagnosis Aspiration pneumonitis Discharge Exam General: awake, alert, no apparent distress, + thin Head: Normocephalic, atraumatic ENT: PERRL, EOMI, no pharyngeal exudate, mucous membranes moist Chest: + Barrel chested, diminished breath sounds throughout, on room air , no adventitious breath sounds Cardiac: Regular rate and rhythm, no murmur, no JVD, normal peripheral pulses, good capillary refill Abdominal: NABS x 4 quadrants, soft, nontender to palpation, no rebound, guarding or tenderness Extremities: Normal inspection, no peripheral edema or erythema, calfs nontender to palpation Psych: Normal mood and affect Neuro: AAO x 3, no motor deficits, speech is clear, no peripheral sensory deficits Skin: no rash or erythema Discharge Data Allergies Allergy/AdvReac Type Severity Reaction Status Date / Time pollen extracts Allergy Mild CONGESTION Verified 02/18/19 14:39 No Known Drug Allergies Allergy Unknown Verified 02/18/19 14:39 Consultations 02/11/19 14:18 ED Decision to Admit Stat 02/11/19 14:35 Consult Pulmonology Routine Ordered Studies 02/11/19 16:21 CT chest wo con Routine 02/12/19 11:30 FL video swallow Routine Hospital Course (1) Pneumonia: - admit to med surg Will switch to OBS. -WBC has improved, Procalcitonin was negative. had patient evaluated by pulmonary. Does not believe to be aspiration pneumonia. will keep patient overnight to recheck lactic acid. On day of discharge, Lactic acid was still elevated but improving. Had discussion with pulmonary, may be due to short acting beta agonist. Patient appears to be doing well clinically. Will discharge patient home (2) COPD, moderate: - Pt recently completed course of prednisone along with antibiotics, does not appear to be a COPD exacerbation but he was covered with IV solumedrol 125 mg IV in the ER x 1. Hold on further steroids at this time. - Pulm consult as above to further eval - CXR reviewed (3) Paroxysmal atrial fibrillation: - Continue eliquis, currently in NSR (4) Hypertension: - Cont diltiazem 240 mg daily, asa 81 mg, lisinopril 20 mg QPM (5) Dyslipidemia: - cont statin therapy (6) Hypothyroidism (acquired): - Cont levothyroxine (7) Osteoporosis: - Cont vit d supplementation (8) Depression: - Cont zoloft (9) Vitamin D deficiency: - Cont Vit D deficiency (10) Vitamin B12 deficiency: - Cont Vit B supplementation (11) Chronic anticoagulation: - noted as above (12) Type 2 diabetes mellitus: - Hold glimepiride and metformin for now, ISS with accuchecks achs - Check A1C with am labs - HH/DM diet (13) Lung nodule: will refer patient to thoracic surgeon. (14) Sinusitis: will defer to ENT (15) Lactic acidosis: Lactic acidosis, however, patient appears to be doing clinically well. Now showing any signs of hypoerfusion. Will give IVF. wILL RECHECK IN am. May also be elevated from repeat beat agonist inhaler, occult malignancy may also be a possibility. (16) DVT prophylaxis: - cory villarreal CODE: Full code Total Time Total Time Spent Total Time Spent (In Minutes): 32 Total Time Includes: Examination of the Patient, Discharge Planning and Medication Reconciliation Discharge Plan Discharge Items Patient Disposition: Home - Home Health Services Reason For Visit: PNA Discharge Diagnosis: Sinusitis/ lung nodule Activity: Resume your previous activity Non-emergency contact: Primary Care Provider Call non-emergency contact if: you have any medication questions Follow-up/Referrals: Lorna Tucker, [Primary Care Provider] - 02/18/19 2:40 pm (Please, follow up at Dr. Tucker's office with her associate, Jona SMITH, on MondayFebruary 18 at 2:40 pm. *If you need to change this appointment, call the office at [phone].) Diet: Regular Addtl Attending Provider Instructions: will recommend nasal saline spray to help with the sinusistis. Will recommend scheduling with ENT to help with the sinusitis Will recommend to followup with Dr. Rivas to check for the nodule. Pending Studies at Discharge: No Stand-Alone Forms: My [facility] Medications and DC Order Prescriptions: New benzonatate [Tessalon Perles] 100 mg Capsule 100 mg PO TID Qty: 15 RF: 0 guaifenesin [Mucinex] 600 mg Tablet Extended Release 12hr 1,200 mg PO Q12 Qty: 14 RF: 0 prednisone 10 mg Tablet 40 mg PO DAILY Qty: 12 RF: 0 Continued cyanocobalamin (vitamin B-12) [Vitamin B-12] 1,000 mcg tablet 1,000 mcg PO QAM Qty: 180 RF: 1 metformin 1,000 mg tablet 1,000 mg PO BID Qty: 180 RF: 3 calcium carbonate-vitamin D3 600 mg(1,500mg) -400 unit tablet 2 tab PO PM RF: 0 albuterol sulfate 2.5 mg /3 mL (0.083 %) solution for nebulization 2.5 mg INH QID PRN (Reason: shortness of breath or wheezing) Qty: 90 RF: 3 albuterol sulfate [Ventolin HFA] 90 mcg/actuation HFA aerosol inhaler 2 puffs INH Q4H PRN (Reason: Shortness Of Breath) RF: 0 fluticasone propionate [Allergy Relief (fluticasone)] 50 mcg/actuation spray,suspension 1 - 2 sprays INTNAS DAILY RF: 0 montelukast 10 mg tablet 10 mg PO PM RF: 0 diltiazem HCl [Cartia XT] 240 mg capsule,extended release 24hr 240 mg PO PM RF: 0 Vitamin D3 4,000 unit Capsule 4,000 unit PO PM RF: 0 Trelegy Ellipta 100-62.5-25 mcg Blister With Device 1 inh INHALATION QAM RF: 0 glimepiride 2 mg tablet 4 mg PO QAM RF: 0 levothyroxine [Synthroid] 25 mcg tablet 25 mcg PO PM RF: 0 aspirin [Aspir-81] 81 mg Tablet,Delayed Release (Dr/Ec) 81 mg PO BID RF: 0 sertraline [Zoloft] 50 mg tablet 50 mg PO QAM RF: 0 Eliquis 5 mg Tablet 5 mg PO BID RF: 0 atorvastatin [Lipitor] 40 mg tablet 40 mg PO PM RF: 0 lisinopril 20 mg tablet 20 mg PO PM RF: 0 No Action levetiracetam [Keppra] 500 mg tablet 1,000 mg PO BID Qty: 120 RF: 5 Discharge Orders: Discharge Order (Routine); Ordered 02/13/19 Ordered By: Low Agudelo Admission Data Admit Date/Time: 02/11/19 14:33 Attending Provider: Low Agudelo Admit Provider: Patricia Dickey Primary Care Provider: Lorna Tucker. Other Providers: Patricia Dickey ; Salvador Rawls Other Interventions: Discharge Summary Assessment (RN) Last Done: 02/13/19 15:07 DC Date/Time DO NOT enter until pt leaves facility: 02/13/19 15:42
--- NOTE | 2019-03-01 11:35 | Coding Query ---
CODING QUERY To promote full compliance with coding requirements relating to patient care, provider participation is requested in all cases of application lead uncertainty. Please assist us with the question(s) below: Coding Question(s): Patient admitted with shortness of breath, o2 sat 92% . Patient evaluated by Pulmonary service who did not believe patient had aspiration pneumonia. Discharge Summary states " Aspiration Pneumonia". Query due to conflicting documentation pertaining to pneumonia. Please check below , if known or suspected, the reason for patient's shortness of breath and Inpatient Stay. Thanks for your help! Stuart Chavarria [facility] Physician's Response(s): Patient 's shortness of breath/Inpatient stay due to Pneumonia Patient's shortness of breath/Inpatient stay due to Aspiration Pneumonia Cannot Clinically correlate if shortness of breath was due to Aspiration /Pneumonia __x____ Other/ Please document: COPD exacerbation Principal Diagnosis: "that condition established after study, to be chiefly responsible for occasioning the admission of the patient to the hospital for care." Co-Existing Principal Diagnosis: "when two or more diagnoses equally meet the criteria for principal diagnosis as determined by the circumstances of admission, diagnostic work up, and/or therapy provided, and the Alphabetic Index, Tabular List, or another coding guideline does not provide sequencing direction, any one of the diagnoses may be sequenced first." "When the physician has documented what appears to be a current diagnosis in the body of the record, but has not included the diagnosis in the final diagnostic statement, the physician should be asked whether the diagnosis should be added." (Source Coding [facility] 2 QTR90. p3-4) LUISA
== END 2019-02-13 15:42 | disposition home health service (06) | DRG 191 ==
LOC: ED 12:39 → 4W 14:33 → SUATTDRO 14:33 → 4W 16:09

== ENCOUNTER 2019-03-27 05:40 | Inpatient (IN) ==
--- NOTE | 2019-03-13 13:59 | Anesthesiology Consultation ---
Date of Service March 13, 2019 Assessment & Plan (1) Encounter for pre-operative examination: Chart Review Chart Review: Pending: Refer to Additional Notes / Consult section and Patient NOT seen in Pre Admission Testing Please obtain copy of most recent echo and or stress test. Consults Requested none History Surgery Operation Date: 03/27/19 07:30 Proposed Procedures p Navigational Bronchoscopy with ICG Dye, - Joseluis Lynn MD, FACS s Robotic Right Video Assisted Thoracoscopy with Right Lower Lobe Wedge Res ection, Possible Right Lower Lobectomy with Mediastinal Lymphadenectomy - Joseluis Lynn MD, FACS Height/Weight Height: 5 ft 7 in Weight: 72.121 kg Allergies Allergy/AdvReac Type Severity Reaction Status Date / Time pollen extracts Allergy Mild CONGESTION Verified 03/07/19 08:03 Medications Home Medications Medication Instructions Recorded Confirmed Last Taken Eliquis 5 mg PO BID 02/02/18 03/07/19 02/27/19 aspirin [Aspir-81] 81 mg PO BID 02/02/18 03/07/19 02/27/19 cyanocobalamin (vit B-12) 1,000 1,000 mcg PO QAM #180 tab 10/22/18 03/07/19 02/27/19 mcg tablet metformin 1,000 mg tablet 1,000 mg PO BID #180 tab 10/22/18 03/07/19 02/27/19 albuterol sulfate HFA 90 2 puffs INH Q4H PRN gm 01/16/19 03/07/19 02/09/19 mcg/actuation aerosol inhaler calcium carbonate 600 mg (1,500 2 tab PO PM 01/16/19 03/07/19 02/27/19 mg)-vitamin D3 400 unit tablet albuterol sulfate 2.5 mg/3 mL 2.5 mg INH QID PRN #90 ml 01/18/19 03/07/19 02/11/19 (0.083 %) solution for nebulization Trelegy Ellipta 1 inh INHALATION QAM 01/29/19 03/07/19 02/27/19 Vitamin D3 4,000 unit PO PM 01/29/19 03/07/19 02/27/19 glimepiride 4 mg PO QAM 01/29/19 03/07/19 02/27/19 levothyroxine [Synthroid] 25 mcg PO QAM 01/29/19 03/07/19 02/27/19 diltiazem CD 240 mg 240 mg PO PM cap 02/02/19 03/07/19 02/27/19 capsule,extended release 24 hr fluticasone propionate 50 1 - 2 sprays INTNAS DAILY PRN gm 02/02/19 03/07/19 Unknown mcg/actuation nasal spray,suspension montelukast 10 mg tablet 10 mg PO PM tab 02/02/19 03/07/19 02/27/19 atorvastatin [Lipitor] 40 mg PO PM 02/11/19 03/07/19 02/27/19 lisinopril 20 mg PO PM 02/11/19 03/07/19 02/27/19 levetiracetam 500 mg tablet 1,000 mg PO BID #120 tab 02/15/19 03/07/19 02/27/19 sertraline 100 mg tablet 100 mg PO QAM #90 tab 03/05/19 03/07/19 Unknown Past Medical History Medical History Seizure (Acute) 01/29/19 - X2 ON THAT DAY AND WAS ADMITTED AND STARTED ON KEPPRA AND NO SEIZURE SINCE Abdominal aortic aneurysm (AAA), 30-34 mm diameter (Chronic) Arteriosclerotic coronary artery disease (Chronic) 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, moderate (Chronic) Chronic anticoagulation (Chronic) Depression (Chronic) Dyslipidemia (Chronic) Hypertension (Chronic) Hypothyroidism (acquired) (Chronic) Mild cognitive impairment (Chronic) Osteoporosis (Chronic) Type 2 diabetes mellitus (Chronic) Asthma (Chronic) Atrial flutter DX [address] CUELLAR [place] Paroxysmal atrial fibrillation (Chronic) DX [address] CUELLAR IN [place] TIA (transient ischemic attack) 2017 X 1 AND NONE SINCE Anxiety CAD (coronary artery disease) History of anesthesia reaction states "sto[place] breathing [place] [facility] [place] Osteoarthritis Tremor HANDS Past Family History Family History Other COPD (chronic obstructive pulmonary disease) Depression Family history non-contributory Past Surgical History Surgical History H/O 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 Hx of cardiac cath 2017 -- HEART CATH WITH STENT 6 [facility] WITH DR CUELLAR LAST SEEN 12/20/2018 Social History Smoking Status: Former smoker tobacco type: smokeless tobacco Smoking cigarettes per day: 20-40 Do You Dip or Chew Tobacco: Yes (1 CAN/ ADIVISED) Smoking End Date: 1973 Hx Alcohol Use: No Hx Substance Use: No substance use type: does not use Testing Laboratory Results Laboratory Tests 01/30/19 02/28/19 02/28/19 06:14 05:55 05:55 WBC 9.05 Hgb 14.3 Hct 43.0 Plt Count 183 PT 10.1 INR 1.0 APTT 26.0 Sodium Potassium Chloride Carbon Dioxide BUN Creatinine Glucose Hemoglobin A1c 6.9 H 02/28/19 05:55 WBC Hgb Hct Plt Count PT INR APTT Sodium 138 Potassium 3.9 Chloride 107 Carbon Dioxide 24 BUN 19 H Creatinine 0.87 Glucose 127 H Hemoglobin A1c Electrocardiogram Date: 02/28/19 Findings: + AFIB @ Other Testing PFT February 2019: Mild to moderate obstruction. No bronchodilator response. FEV1=63 percent predicted Cardiology: "Cleared from a cardiac standpoint for proposed procedure." no additional testing or information provided.
[2019-03-27] MEDS ORDERED: LR 15ML/HR IV SCH (06:00)
[2019-03-27] MEDS ORDERED: CLINDAMYCIN 600 MG/54 ML BAG IV SCH (06:00)
[2019-03-27] MEDS ORDERED: fentaNYL citrate 100 MCG/2 ML VIAL ONE ×2 (06:37→09:28)
[2019-03-27] MEDS ORDERED: LIDOCAINE HCL 2% 2 ML VIAL/AMP(20MG/ML) INFIL ONE (06:57)
[2019-03-27] MEDS ORDERED: PROPOFOL IV EMULSION 10 MG/ML 20 ML VIAL IV ONE (06:57)
[2019-03-27] MEDS ORDERED: DEXAMETHASONE SOD INJ 4 MG/ML VIAL ONE (06:57)
[2019-03-27] MEDS ORDERED: ROCURONIUM BROMIDE 10 MG/ML 5 ML VIAL ONE ×2 (06:57→09:43)
[2019-03-27] MEDS ORDERED: ONDANSETRON INJ 2 MG/ML 2 ML VIAL ONE (06:57)
--- NOTE | 2019-03-27 06:59 | History & Physical Bridge Note ---
Date of Service March 27, 2019 History & Physical Bridge Note I have examined the patient, reviewed the History & Physical and in the interval since the performance of the History & Physical I have noted the following changes of clinical significance: no changes noted
[2019-03-27] MEDS ORDERED: BUPIVACAINE 0.5 % 5 MG/1 ML MPF 30ML VIAL ONE (07:07)
[2019-03-27] MEDS ORDERED: BUPIVACAINE LIPOSOME 1.3% 266 MG/20 ML VIAL ONE (07:08)
[2019-03-27] MEDS ORDERED: SODIUM CHLORIDE 0.9% PF 50 ML VIAL ONE (07:08)
[2019-03-27] MEDS ORDERED: INDOCYANINE GREEN 25 MG/10 ML INJ ONE (07:51)
[2019-03-27] MEDS ORDERED: CLINDAMYCIN PHOS 300 MG/2 ML VIAL ONE (07:52)
[2019-03-27] MEDS ORDERED: ONDANSETRON INJ 2 MG/ML 2 ML VIAL IV PRN ×2 (07:53→13:57)
[2019-03-27] MEDS ORDERED: fentaNYL citrate 100 MCG/2 ML VIAL IV PRN (07:53)
[2019-03-27] MEDS ORDERED: ATROPINE SULFATE 0.1 MG/ML 10ML SYR IV PRN (07:53)
[2019-03-27] MEDS ORDERED: PHENYLEPHRINE HCL 10 MG/ML VIAL ONE (08:42)
--- NOTE | 2019-03-27 08:44 | Fluoroscopy Report ---
FL chest 1V frontal CLINICAL HISTORY: 78 years-old Male presenting with EMMA BRONCH. TECHNIQUE: 2 fluoroscopic image(s) recorded as part of an intraoperative procedure. COMPARISON: Chest CT from 02/11/2019. FINDINGS/IMPRESSION: Catheter projects over the right lower lung for no additional bronchoscopy. External leads also proje ct over the right upper quadrant. Please see surgical report for further details. Dose area product (mGy.cm^2): 0.9067. Fluoroscopy time: 17 seconds. Number or time of high level fluoroscopy (HLF), digital spot, or digital subtraction images: 0. Electronically signed by: Sekou Milan M.D. 03/27/2019 8:43 AM
[2019-03-27] MEDS ORDERED: SURGICEL ABSORB HEMOSTAT 2IN X 14IN TOP ONE (09:33)
[2019-03-27] MEDS ORDERED: ePHEDrine sulfate 50 MG/ML SYR ONE (09:45)
[2019-03-27] MEDS ORDERED: NEOSTIGMINE METHYLSULFATE 5 MG/5 ML SYR ONE (09:49)
[2019-03-27] MEDS ORDERED: GLYCOPYRROLATE 0.2 MG/ML VIAL ONE (09:49)
[2019-03-27] MEDS ORDERED: ESMOLOL HCL INJ 10 MG/ML 10ML VIAL IV ONE (10:06)
[2019-03-27] MEDS ORDERED: AMIODARONE HCL INJ 50 MG/ML 3 ML VIAL IV ONE (10:07)
--- NOTE | 2019-03-27 10:12 | Operative Report ---
PG Post Operative Report Pre & Post Diagnosis Operation Date: 03/27/19 07:30 Pre-Op Diagnosis: Right Lung Mass Post-Op Diagnosis: hamartoma right lower lobe I identified the patient and participated in the time-out.: Yes Procedure Operation Date: 03/27/19 07:30 Actual Procedures p Navigational Bronchoscopy with ICG Dye, - Joseluis Lynn MD, FACS s Robotic Right Video Assisted Thoracoscopy with Right Lower Lobe Wedge Resection with Mediastinal Lymphadenectomy and Lymph Node Biopsy(Right) - Joseluis Lynn MD, FACS Surgeon Joseluis Lynn MD, FACS Tread [place]ODG[place] Estimated Blood Loss 20 Findings Consistent with Post-Op Diagnosis Specimens right lower lobe wedge right level 7,8,9 lymph nodes Drains 24 fr chest tube Anesthesia Type General Complications none Disposition Accompanied Patient To Recovery: No Disposition: PCU Indications RLL mass Description of Procedure Mr. Zurita is a 78-year-old male who was found to have a mass in his right lower lobe which is asymptomatic. It was not hypermetabolic but it was not very large. After much discussion the patient and his family stated they would like this wedged out. We discussed possibly observing it repeating a CT scan in 3 to 6 months in the future however they asked her to be removed. On 03/27/2019 the patient underwent uncomplicated navigational bronchoscopy and marking of this mass with indocyanine green dye. He was then turned and we did a robotic wedge resection. He had a few adhesions of the upper lobe which were taken down and we did not really see the ICG dye. I was able to palpate this with the forceps. We then wedged out this mass. We will send it to the lab and it appears to be a hamartoma. Also had very large lymph nodes in his level 7 area and I sent this for frozen it appeared to be reactive nodes. He tolerated well with no visible blood loss. Procedure: Patient was brought to the operating room and laid in the supine position. General anesthesia was induced and endotracheal intubation performed with a single-lumen tube. Fiberoptic bronchoscope was then inserted through the ad apter after appropriate timeout of been called and prophylactic antibiotics given. He had a significant amount of clear tenacious sputum which was suctioned out of each of the tertiary airways. I did not see evidence of any endobronchial lesions. He had mild excess dynamic collapse of his distal trachea. Using the Intellijoule system his airways were registered and then I went out to the mass. I could easily see this with the radial ultrasound probe. We then placed a needle out towards the pleura and injected 1 cc of indocyanine green dye followed by 1 cc of air. There was no significant bleeding and I removed the fiberoptic bronchoscope. The tube was switched to a double-lumen tube and the patient was placed in the left lateral decubitus position. The right chest was then prepped and draped in sterile fashion and after another timeout of been called and incision was made in the eighth interspace just anterior to mid axillary line. Could be seen that there were few adhesions of the upper lobe but no adhesions down below we are easily in the pleural cavity. Carbon dioxide was insufflated. We had some trouble with ventilation as his saturations dropped and we had to go back to 2 lungs a few times. Saturations came up with that. He was not hemodynamically compromised. We then placed our 8 mm ports anterior posterior and 5 mm port in the paraspinal area. Assistance port was then placed anteriorly just above the diaphragm. Each of these ports have been injected with Exparel, 266 mg and 20 cc solution mixed with 30 cc of 0.5% bupivacaine and 250 cc of normal saline. We then performed an intercostal block starting at the second rib and coming down to the 12th. This was done under intrathoracic thoracoscopic guidance. The robot was then docked. Using the firefly camera I was disappointed to see we saw no indocyanine green dye however, I could palpate the mass. Grasping this we wedged out using Endo AROLDO stapler x3. This was sent for frozen section. While waiting for this we took down the infrapulmonary ligament biopsied a small level 9 level 8 nodes. There is a huge packet of nodes in the level 7 area and I removed a significant portion of this. Some of it looked abnormal center for frozen appear to be simply a reactive node. We really had very little in the way of bleeding. We did not see an air leak. The lung inflated nicely on 2 lungs. With a frozen section came back with a hamartoma we inserted a 24 [place] chest tube the assistance port directed towards the apex and held in place heavy silk suture. 0 Vicryl was used to close the camera port muscle layer. 4 Monocryl was used in running subcuticular fashion to close the skin edges. Patient has short burst of atrial flutter which responded to an IV bolus of amiodarone. He was never hemodynamically compromise. We will send him to PCU and have cardiology evaluate him. Stable condition at the conclusion of the case. I attest to the content of the Intraoperative Record and any orders documented therein. Any exceptions are noted below.
[2019-03-27] MEDS ORDERED: METOCLOPRAMIDE HCL INJ 5 MG/ML 2 ML VIAL IV ONE (10:35)
[2019-03-27] MEDS ORDERED: METOCLOPRAMIDE HCL INJ 5 MG/ML 2 ML VIAL ONE ×2 (10:48→14:10)
[2019-03-27] MEDS: ePHEDrine sulfate 50 MG/ML AMP IV PRN ×9 (10:57→12:28)
--- NOTE | 2019-03-27 11:07 | XRay Report ---
SINGLE VIEW CHEST CLINICAL HISTORY: Status post right lower lobe wedge resection. FINDINGS: An AP, portable, upright chest radiograph is compared to chest x-ray dated 02/28/2019 and c orrelated with chest CT dated 02/11/2019. The examination is degraded by portable technique and patien t rotation. The heart is enlarged noting atherosclerotic calcification of the thoracic aorta. The pul monary vasculature is noncongested. Emphysema and chronic interstitial thickening are similar to prev ious. There is postoperative change and volume loss in the right lung consistent with the reported hi story of right lower lobe resection. A chest tube terminates at the right apex. No pneumothorax is cl early identified. Scarring/atelectasis is noted at the right lung base. There is volume loss in the l eft lung with airspace consolidation in the left mid to lower lung. The skeletal structures are osteo penic. The bony thorax is grossly intact. Subcutaneous emphysema is seen along the right chest wall. IMPRESSION: 1. Cardiomegaly, emphysema, and postoperative change from right lower lobe resection. 2. A right-sided chest tube is in place. No pneumothorax is clearly identified. 3. There is volume loss in the left lung with airspace consolidation throughout the left mid to lower lung. This is new from previous, this could represent atelectasis and/or pneumonia/aspiration pneumo nitis. Asymmetric pulmonary edema or hemorrhage are considered less likely but are also differential considerations. Electronically signed by: Eze Chairez M.D. 03/27/2019 11:06 AM
[2019-03-27] MEDS ORDERED: ALBUT/IPRATROP 3MG/0.5MG NEB 3 ML VIAL NEB STA (11:37)
--- NOTE | 2019-03-27 13:24 | Anesthesiology Progress Note ---
Date of Service March 27, 2019 Anesthesia Post Procedure Vital Signs Vital Signs: Temp Pulse Pulse Pulse Resp BP Pulse Ox 03/27/19 13:10 36.9 C 76 18 99/41 L 95 03/27/19 13:00 36.9 C 76 19 72/31 L 96 03/27/19 12:50 36.9 C 75 18 84/36 L 95 03/27/19 12:40 75 19 89/49 L 95 03/27/19 12:30 36.5 C 74 19 83/33 L 96 03/27/19 12:20 36.5 C 71 18 89/34 L 95 03/27/19 12:10 36.5 C 73 19 76/47 L 93 03/27/19 12:00 36.5 C 76 19 89/45 L 94 03/27/19 11:53 73 18 95 03/27/19 11:51 73 18 95 03/27/19 11:50 36.5 C 73 19 88/58 L 94 03/27/19 11:40 36.5 C 73 19 86/54 L 94 03/27/19 11:30 36.5 C 74 18 83/53 L 94 03/27/19 11:20 36.2 C L 77 18 89/42 L 93 03/27/19 11:10 36.2 C L 77 18 84/45 L 92 03/27/19 11:04 36.2 C L 75 20 98/52 L 93 03/27/19 10:48 77 18 92 03/27/19 06:53 36.7 C 93 H 20 97/68 L 94 Transfer of Care Handoff Completed per policy Notes Mental Status: alert / awake / arousable Patient Amnestic to Procedure: Yes Nausea / Vomiting: adequately controlled Pain: adequately controlled Airway Patency, RR, SpO2: stable & adequate BP & HR: see Notes below Hydration State: see Notes below Anesthetic Complications: no major complications apparent Notes: Patient had difficulty tolerating one lung ventilation during procdure due to severe intrinsic lung disease. Post operatively he had poor respiratory effort and oxygen saturations in the mid 80s. He was brought to PACU extubated, placed on BiPAP, and given nebulizers for a short time. After this, he began to awaken and respond appropriately. He was trialed off BiPAP and tolerated oxygen facemask well, without increased work of breathing. However, pressors were still needed to keep MAP above 50 and he was minimally responsive to small fluid challenges. He showed no signs of surgical bleeding in pacu, but did appear clinically hypovolemic. I did perform a bedside transthoracic echo to evaluate volume status which showed a hyperdynamic LV and a small IVC which collapsed with inspiration. Post operative chest XRay showed some congestion in the non operative lung. Given his tenuous respiratory status, I feel that rapidly bringing the patient to euvolemia would likely result in respiratory decompensation. I have discussed the case with Dr Lynn and the envelope stamping machine operator who have agreed to watch the patient in SICU overnight. He ICU for now, and I have discussed this with the family as well.
[2019-03-27] MEDS ORDERED: FLUTICASONE PROPIONATE NA SPR 16 GM BTL PRN (13:57)
[2019-03-27] MEDS ORDERED: MoRPHine SULFATE 2 MG/ML CARP IV PRN (13:57)
[2019-03-27] MEDS ORDERED: ALBUTEROL 0.083% NEBU SOLN 3 ML VIAL INH PRN (13:57)
[2019-03-27] MEDS ORDERED: OXYCODONE HCL IR 5 MG TAB (IMMEDIATE RELEASE) PO PRN (13:57)
[2019-03-27] MEDS ORDERED: ACETAMINOPHEN 1000 MG/100 ML IV IV ONE (14:13)
[2019-03-27] MEDS: METOCLOPRAMIDE HCL INJ 5 MG/ML 2 ML VIAL IV SCH ×2 (14:14→19:51)
[2019-03-27] MEDS: ACETAMINOPHEN 1,000 MG/100 ML VIAL IV SCH ×2 (14:14→22:12)
[2019-03-27] MEDS: SODIUM CHLORIDE 0.9% 1000ML 1,000 ML IV SCH (14:14)
[2019-03-27] MEDS ORDERED: GLUCOSE 40% GEL 15 GM TUBE PO PRN (14:30)
[2019-03-27] MEDS ORDERED: GLUCOSE 10 TABS/TUBE PO PRN (14:30)
[2019-03-27] MEDS ORDERED: DEXTROSE 50% 50 ML SYRINGE IV PRN (14:30)
[2019-03-27] MEDS ORDERED: GLUCAGON FOR INJ 1 MG VIAL IM PRN (14:30)
[2019-03-27] MEDS ORDERED: CARBOHYDRATES FOR HYPOGLYCEMIA PO PRN (14:30)
--- NOTE | 2019-03-27 15:18 | Cardiology Consultation ---
Date of Consultation March 27, 2019 Assessment & Plan (1) Paroxysmal atrial fibrillation: He has a history of atrial fibrillation as well as atrial flutter, we did do a flutter ablation here in 2015 and I do not know if he has had recurrence of that. I do not have a lot of records, he does seem to follow with Dr. King in [place] for his atrial arrhythmias but I do not know the status. I believe he was last seen there in December of this year. He had atrial fibrillation here, however for the most part he has been in sinus rhythm. He does take Eliquis. I would recommend restarting Eliquis as soon as it is felt safe from the surgical standpoint. He is on diltiazem 240 mg daily at home, that is ordered here for the evening as well. I would continue his outpatient regimen and if he has recurrent atrial fibrillation and a rapid heart rate we can adjust his medications. Once he gets back on his outpatient medications his rate may be controlled or perhaps he will not have much in way of atrial fibrillation. (2) Arteriosclerotic coronary artery disease: He has coronary artery disease, I believe that is also followed in [place]. But does not seem to be active now and I would not alter his treatment for it. History of Present Illness Attending Physician: Joseluis Lynn MD, FACS History of Present Illness This is a 78-year-old male with a history of atrial arrhythmias and coronary artery disease. He also has hypertension and diabetes mellitus. He was hospitalized in June 2015 with atrial flutter and a rapid heart rate, catheterization performed June 11, 2015 showed diffuse disease but I do not believe intervention was performed, I believe the plan was to send him out at that time. He had episodes of rapid heart rate, he was on warfarin at the time and this was switched to Eliquis. Subsequently he had flutter ablation performed on June 18, 2015 and remained on Eliquis. At the time of my evaluation he is awake in bed after his surgery, his daughter is present in the room. He does not really have any understanding of his medical history, he notes that he has had multiple stents placed but he cannot give me any idea when or where. He does not know whether he is following with a alligator hunter or not and he does not know what has been happening with his atrial arrhythmia. He apparently has no awareness of the arrhythmia when he has an it. He had a wedge resection done today and was noted to have atrial fibrillation, although I do not see much documentation of that in the chart. He has been in normal rhythm in ICU. Allergies Allergy/AdvReac Type Severity Reaction Status Date / Time pollen extracts Allergy Mild CONGESTION Verified 03/27/19 06:37 Home Medications Home Medications Medication Instructions Recorded Confirmed Type aspirin [Aspir-81] 81 mg PO BID 02/02/18 03/27/19 History cyanocobalamin (vitamin B-12) 1,000 mcg PO QAM #180 tab 10/22/18 03/27/19 Rx 1,000 mcg tablet metformin 1,000 mg tablet 1,000 mg PO BID #180 tab 10/22/18 03/27/19 Rx albuterol sulfate 90 mcg/actuation 2 puffs INH Q4H PRN gm 01/16/19 03/27/19 History aerosol inhaler calcium carbonate 600 mg (1,500 2 tab PO PM 01/16/19 03/27/19 History mg)-vitamin D3 400 unit tablet albuterol sulfate 2.5 mg/3 mL 2.5 mg INH QID PRN #90 ml 01/18/19 03/27/19 Rx (0.083 %) solution for nebulization Trelegy Ellipta 1 inh INHALATION QAM 01/29/19 03/27/19 History Vitamin D3 4,000 unit PO PM 01/29/19 03/27/19 History glimepiride 4 mg PO QAM 01/29/19 03/27/19 History levothyroxine [Synthroid] 25 mcg PO QAM 01/29/19 03/27/19 History diltiazem HCl 240 mg 240 mg PO PM cap 02/02/19 03/27/19 History capsule,extended release 24 hr fluticasone propionate 50 1 - 2 sprays INTNAS DAILY PRN gm 02/02/19 03/27/19 History mcg/actuation nasal spray,suspension montelukast 10 mg tablet 10 mg PO PM tab 02/02/19 03/27/19 History atorvastatin [Lipitor] 40 mg PO PM 02/11/19 03/27/19 History lisinopril 20 mg PO PM 02/11/19 03/27/19 History levetiracetam 500 mg tablet 1,000 mg PO BID #120 tab 02/15/19 03/27/19 Rx sertraline 100 mg tablet 100 mg PO QAM #90 tab 03/05/19 03/27/19 Rx apixaban 5 mg tablet See Rx Instructions .ROUTE 03/21/19 03/27/19 Rx .COMPLEX #180 tablet Patient History Medical History (Updated 03/27/19 @ 18:47 by Ruiz Nuñez MD) Abdominal aortic aneurysm (AAA), 30-34 mm diameter (Chronic) Anxiety Arteriosclerotic coronary artery disease (Chronic) Asthma (Chronic) Atrial flutter DX [address] KING IN [place] Benign prostatic hyperplasia with urinary obstruction (Chronic) CAD (coronary artery disease) Chronic anticoagulation (Chronic) COPD, moderate (Chronic) Depression (Chronic) Dyslipidemia (Chronic) Hypertension (Chronic) Hypothyroidism (acquired) (Chronic) Mild cognitive impairment (Chronic) On home oxygen therapy AT NIGHT Osteoarthritis Osteoporosis (Chronic) Paroxysmal atrial fibrillation (Chronic) DX [address] KING IN [place] Seizure (Acute) 01/29/19 - X2 ON THAT DAY AND WAS ADMITTED AND STARTED ON KEPPRA AND NO SEIZURE SINCE TIA (transient ischemic attack) 2017 X 1 AND NONE SINCE Tremor HANDS Type 2 diabetes mellitus (Chronic) Surgical History (Updated 03/27/19 @ 10:23 by Kandy Srinivasan RN) H/O 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 History of anesthesia reaction states "stopped breathing during MOHS procedure at the [facility] Hx of cardiac cath 2017 -- HEART CATH WITH STENT [facility] WITH [address] KING LAST SEEN 12/20/2018 Family History Other COPD (chronic obstructive pulmonary disease) Depression Family history non-contributory Social History Preferred Language: Maori Communication Ability: Effective Visual Impairment: No Limitations Hearing Ability: Use of Hearing Aid Green Hide Inspector Required: No Beliefs That Will Affect Care: None marital status: Current Living Situation: Spouse current occupational status: retired 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, 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[employer] ([place]) Other Information That Helps Us Care for You: No Feels Safe at Home: Yes Safety Concerns: Feels Safe At This Time Smoking Status: Former smoker Tobacco Type: smokeless tobacco ; Cigarettes Per Day: 20-40 ; Do You Dip or Chew Tobacco: Yes (1 CAN/ ADIVISED) ; Smoking End Date: 1973 ; Number of Years Since Quit: 34 ; Second Hand Exposure: No ; Tobacco Cessation Education Requested by Patient: No Hx Alcohol Use: No Hx Substance Use: No Childhood Exposure to Second-Hand Smoke: Yes caffeine: No Dental Care, Regularly: No Physical Activity Frequency: Does not Exercise Seatbelt Use: always Review of Systems Review of Systems: All systems reviewed & are unremarkable except as noted in HPI & below Physical Exam Physical Exam: Constitutional: Alert, cooperative and in no distress. HEENT: Unremarkable Neck: No jugular venous distention, carotid pulses are normal and equal bilaterally without bruits. Pulmonary: Decreased breath sounds on the right. Cardiac: Regular rhythm with no murmur, gallop or rub. Abdomen: Soft, nontender with normal bowel sounds. Extremities: No edema. Distal pulses intact. Neurologic: No focal findings. Gait is steady. Skin: No rash, ecchymoses or petechiae. Results & Data Vital Signs (Past 12 Hours) Vital Signs Temp Pulse Pulse Pulse Resp BP BP 03/27/19 15:12 80 03/27/19 15:05 81 26 H 105/49 L 03/27/19 15:00 92 H 20 03/27/19 14:45 91 H 20 110/57 L 03/27/19 14:30 90 19 03/27/19 14:15 73 21 109/64 03/27/19 14:00 74 22 03/27/19 13:54 36.9 C 73 20 114/63 03/27/19 13:10 36.9 C 75 19 87/50 L 03/27/19 13:00 36.9 C 76 19 72/31 L 03/27/19 12:50 36.9 C 75 18 84/36 L 03/27/19 12:40 75 19 89/49 L 03/27/19 12:30 36.5 C 74 19 83/33 L 03/27/19 12:20 36.5 C 71 18 89/34 L 03/27/19 12:10 36.5 C 73 19 76/47 L 03/27/19 12:00 36.5 C 76 19 89/45 L 03/27/19 11:53 73 18 03/27/19 11:51 73 18 03/27/19 11:50 36.5 C 73 19 88/58 L 03/27/19 11:40 36.5 C 73 19 86/54 L 03/27/19 11:30 36.5 C 74 18 83/53 L 03/27/19 11:20 36.2 C L 77 18 89/42 L 03/27/19 11:10 36.2 C L 77 18 84/45 L 03/27/19 11:04 36.2 C L 75 20 98/52 L 03/27/19 10:48 77 18 03/27/19 06:53 36.7 C 93 H 20 97/68 L Pulse Ox 03/27/19 15:12 03/27/19 15:05 88 L 03/27/19 15:00 93 03/27/19 14:45 95 03/27/19 14:30 94 03/27/19 14:15 98 03/27/19 14:00 95 03/27/19 13:54 97 03/27/19 13:10 96 03/27/19 13:00 96 03/27/19 12:50 95 03/27/19 12:40 95 03/27/19 12:30 96 03/27/19 12:20 95 03/27/19 12:10 93 03/27/19 12:00 94 03/27/19 11:53 95 03/27/19 11:51 95 03/27/19 11:50 94 03/27/19 11:40 94 03/27/19 11:30 94 03/27/19 11:20 93 03/27/19 11:10 92 03/27/19 11:04 93 03/27/19 10:48 92 03/27/19 06:53 94 Diagnostic Findings I do not see an electrocardiogram from admission. Telemetry shows atrial fibrillation briefly on arrival, the first 4 minutes of telemetry he is in atrial fibrillation with a somewhat rapid heart rate before converting to sinus. PG Care Time/CCT Total # of Minutes Spent Total Time Spent with Patient: Total time spent is greater than 50% in coordination of care (as documented) at patient's floor/unit and/or counseling patient:
[2019-03-27] MEDS: INSULIN ASPART 100 UNITS/ML 3 ML PEN SC SCH ×3 (15:40→22:11)
--- NOTE | 2019-03-27 18:48 | Critical Care Consultation ---
Date of Consultation March 27, 2019 Assessment & Plan (1) History of lung biopsy: 78 yo male was transferred to the ICU following his robotic VATS with right lower lobe wedge resection and lymph node biopsy for a hamartoma of the right lower lobe. EDI MANAGER: CAM-ICU negative. No known acute issues. 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 PMH TIA, depression, possible encephalopathy. On home ASA 81, keppra, and sertraline. Pulm: Pulmonary nodule seen on Feb 2019 CT chest. 20Nov s/p wedge resection. See thoracic surgery notes. Post-op pCXR noted volume loss of left lung with airspace consolidation. Briefly on BiPAP post-extubation. Presently on oxymask. PMH asthma, moderate COPD (on home oxygen), chronic rhinitis, and pneumonia (antibiotics in early Feb). On home Trelegy, singulair, and prn albuterol. CVS: Some noted hypotension in the OR. Received multiple doses of ephedrine. Thought to be volume-depleted on anesthesia bedside u/s. Presently on NS at 70 mL/hr. Will get 500 mL bolus. PMH HTN, HLD, atrial flutter, paroxysmal A. fib, ? AAA. On home ASA 81, Lipitor, diltiazem. Holding home apixaban and lisinopril. Thoracic surgery consulted cardiology. ID: Afebrile immediately post-op. Received clindamycin jenifer-operatively. Endo: PMH DM2 with Jan 2019 HbA1c 6.9. At home is on glimepiride and metformin. In ICU, glucose checks per protocol and ISS prn. PMH hypothyroidism with Jan 2019 TSH 2.3, on home synthroid. PMH vitamin B12 deficiency, at home on replacement. Renal/Lytes: Pre-op Cr 0.8. PMH BPH. GI: No known acute issues. On DM diet. Heme: Pre-op Hb 14. DVT prophy: Lovenox. At home is on eliquis. Skin: PSH Mohs surgery. Right arm rash thought to be related to PET scan dye. Lines: Right chest tube. Code status: Full code. PT/OT: Deferred on admit. Disposition: Admitted to ICU in post-op period. (2) Seizure: (3) TIA (transient ischemic attack): (4) Depression: (5) Asthma: (6) COPD, moderate: (7) Chronic rhinitis: (8) Hypotension: (9) Hypertension: (10) Dyslipidemia: (11) Atrial flutter: (12) Paroxysmal atrial fibrillation: (13) Abdominal aortic aneurysm (AAA), 30-34 mm diameter: (14) Type 2 diabetes mellitus: (15) Hypothyroidism (acquired): Supervising Physician Co-Signing Physician Notes Dr. Nuñez was resident physician during care of patient. I separately evaluated patient for varela portions of the history and the exam. I was present during the critical portion of medical decision making, and I discussed the case with the resident. I generally agree with the findings and plan. Patient is postop day 0, hypotension requiring volume expansion, this will be done judiciously while continuing to observe for pulmonary edema, patient already has asymmetric pulmonary vascular congestion noted on radiography. I suspect this is secondary to the postoperative SIRS response. Continue to observe for known paroxysmal afib. Low threshold for vasoactive medication. I discussed the case with anesthesia. I have personally spent 35 minutes of critical care time in the direct management of this patient. This is a life/limb threatening event. This includes time spent evaluating patient, direct bedside care, chart review, placing orders, interpretation of diagnostic studies, discussion with consultants, patient, and/or family members regarding treatment decisions, as well as other required patient management activities. This time is exclusive of all separately billable procedures, and teaching time and separate from and in addition to any other critical care service time. History of Present Illness Reason for Consultation: ICU admit Attending Physician: Joseluis Lynn MD, [facility] History of Present Illness 78-year-old male underwent a scheduled robotic VATS with right lower lobe wedge resection earlier today (March 27). While in the OR he was noted to have some episodes of hypotension. He also has known atrial fib/atrial flutter. As a precaution, he was transferred to the ICU postop for further monitoring. Spoke with patient on his arrival to the ICU. Overall he says that he is pain- free and his breathing is comfortable. Denies any chest wall pain, abdominal pain, or other acute concerns. Allergies Allergy/AdvReac Type Severity Reaction Status Date / Time pollen extracts Allergy Mild CONGESTION Verified 03/27/19 06:37 Home Medications Home Medications Medication Instructions Recorded Confirmed Type aspirin [Aspir-81] 81 mg PO BID 02/02/18 03/27/19 History cyanocobalamin (vitamin B-12) 1,000 mcg PO QAM #180 tab 10/22/18 03/27/19 Rx 1,000 mcg tablet metformin 1,000 mg tablet 1,000 mg PO BID #180 tab 10/22/18 03/27/19 Rx albuterol sulfate 90 mcg/actuation 2 puffs INH Q4H PRN gm 01/16/19 03/27/19 History aerosol inhaler calcium carbonate 600 mg (1,500 2 tab PO PM 01/16/19 03/27/19 History mg)-vitamin D3 400 unit tablet albuterol sulfate 2.5 mg/3 mL 2.5 mg INH QID PRN #90 ml 01/18/19 03/27/19 Rx (0.083 %) solution for nebulization Trelegy Ellipta 1 inh INHALATION QAM 01/29/19 03/27/19 History Vitamin D3 4,000 unit PO PM 01/29/19 03/27/19 History glimepiride 4 mg PO QAM 01/29/19 03/27/19 History levothyroxine [Synthroid] 25 mcg PO QAM 01/29/19 03/27/19 History diltiazem HCl 240 mg 240 mg PO PM cap 02/02/19 03/27/19 History capsule,extended release 24 hr fluticasone propionate 50 1 - 2 sprays INTNAS DAILY PRN gm 02/02/19 03/27/19 History mcg/actuation nasal spray,suspension montelukast 10 mg tablet 10 mg PO PM tab 02/02/19 03/27/19 History atorvastatin [Lipitor] 40 mg PO PM 02/11/19 03/27/19 History lisinopril 20 mg PO PM 02/11/19 03/27/19 History levetiracetam 500 mg tablet 1,000 mg PO BID #120 tab 02/15/19 03/27/19 Rx sertraline 100 mg tablet 100 mg PO QAM #90 tab 03/05/19 03/27/19 Rx apixaban 5 mg tablet See Rx Instructions .ROUTE 03/21/19 03/27/19 Rx .COMPLEX #180 tablet Patient History Medical History (Updated 03/27/19 @ 18:47 by Ruiz Nuñez MD) Abdominal aortic aneurysm (AAA), 30-34 mm diameter (Chronic) Anxiety Arteriosclerotic coronary artery disease (Chronic) Asthma (Chronic) Atrial flutter DX [address] CUELLAR IN [place] Benign prostatic hyperplasia with urinary obstruction (Chronic) CAD (coronary artery disease) Chronic anticoagulation (Chronic) COPD, moderate (Chronic) Depression (Chronic) Dyslipidemia (Chronic) Hypertension (Chronic) Hypothyroidism (acquired) (Chronic) Mild cognitive impairment (Chronic) On home oxygen therapy AT NIGHT Osteoarthritis Osteoporosis (Chronic) Paroxysmal atrial fibrillation (Chronic) DX [address] CUELLAR IN [place] Seizure (Acute) 01/29/19 - X2 ON THAT DAY AND WAS ADMITTED AND STARTED ON KEPPRA AND NO SEIZURE SINCE TIA (transient ischemic attack) 2017 X 1 AND NONE SINCE Tremor HANDS Type 2 diabetes mellitus (Chronic) Surgical History (Updated 03/27/19 @ 10:23 by Kandy Srinivasan RN) H/O 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[employer] Other Information That Helps Us Care for You: No Feels Safe at Home: Yes Safety Concerns: Feels Safe At This Time Smoking Status: Former smoker Tobacco Type: smokeless tobacco ; Cigarettes Per Day: 20-40 ; Do You Dip or Chew Tobacco: Yes (1 CAN/ ADIVISED) ; Smoking End Date: 1973 ; Number of Years Since Quit: 34 ; Second Hand Exposure: No ; Tobacco Cessation Education Requested by Patient: No Hx Alcohol Use: No Hx Substance Use: No Childhood Exposure to Second-Hand Smoke: Yes caffeine: No Dental Care, Regularly: No Physical Activity Frequency: Does not Exercise Seatbelt Use: always Review of Systems Review of Systems: Constitutional: Denies fevers, chills, focal weakness Eyes: Denies any visual loss or diplopia ENT: Denies any ear/nose/throat pain or difficulty speaking or swallowing Respiratory: Denies any dyspnea, cough, hemoptysis Cardiovascular: Denies any chest pain or feeling of edema Gastrointestinal: Denies any abdominal pain, nausea/vomiting/diarrhea Musculoskeletal: Denies any acute extremity pains, myalgias, or focal weakness Skin: Denies any known acute rashes or lesions Neuro: Denies any headache, acute focal weakness or numbness, or difficulties with speech or swallow. Physical Exam Physical Exam: General Appearance: Awake, alert & oriented, comfortable in general, NAD. CV: +S1S2 irregularly irregular, no murmur. Pulm: Decreased breath sounds in left jefferson. Right chest tube in place. Oximask in place. Abdomen: +BS, soft, non-tender, non-distended. Extremities: No pedal edema or calf tenderness. Moving all extremities naturally and easily. There is a patchy erythematous rash along the right AC and proximal arm. Neuro: No gross neuro deficits. Results & Data Vital Signs (Past 12 Hours) Vital Signs Temp Pulse Pulse Pulse Resp BP BP 03/27/19 15:12 80 03/27/19 15:05 81 26 H 105/49 L 03/27/19 15:00 92 H 20 03/27/19 14:45 91 H 20 110/57 L 03/27/19 14:30 90 19 03/27/19 14:15 73 21 109/64 03/27/19 14:00 74 22 03/27/19 13:54 36.9 C 73 20 114/63 03/27/19 13:10 36.9 C 75 19 87/50 L 03/27/19 13:00 36.9 C 76 19 72/31 L 03/27/19 12:50 36.9 C 75 18 84/36 L 03/27/19 12:40 75 19 89/49 L 03/27/19 12:30 36.5 C 74 19 83/33 L 03/27/19 12:20 36.5 C 71 18 89/34 L 03/27/19 12:10 36.5 C 73 19 76/47 L 03/27/19 12:00 36.5 C 76 19 89/45 L 03/27/19 11:53 73 18 03/27/19 11:51 73 18 03/27/19 11:50 36.5 C 73 19 88/58 L 03/27/19 11:40 36.5 C 73 19 86/54 L 03/27/19 11:30 36.5 C 74 18 83/53 L 03/27/19 11:20 36.2 C L 77 18 89/42 L 03/27/19 11:10 36.2 C L 77 18 84/45 L 03/27/19 11:04 36.2 C L 75 20 98/52 L 03/27/19 10:48 77 18 03/27/19 06:53 36.7 C 93 H 20 97/68 L Pulse Ox 03/27/19 15:12 03/27/19 15:05 88 L 03/27/19 15:00 93 03/27/19 14:45 95 03/27/19 14:30 94 03/27/19 14:15 98 03/27/19 14:00 95 03/27/19 13:54 97 03/27/19 13:10 96 03/27/19 13:00 96 03/27/19 12:50 95 03/27/19 12:40 95 03/27/19 12:30 96 03/27/19 12:20 95 03/27/19 12:10 93 03/27/19 12:00 94 03/27/19 11:53 95 03/27/19 11:51 95 03/27/19 11:50 94 03/27/19 11:40 94 03/27/19 11:30 94 03/27/19 11:20 93 03/27/19 11:10 92 03/27/19 11:04 93 03/27/19 10:48 92 03/27/19 06:53 94 Laboratory Results 03/27/19 03/27/19 03/27/19 Range/Units 16:34 16:31 14:21 POC Glucose 276 H 304 H* 252 H (70-99) Blood Type Antibody Screen Crossmatch 03/27/19 03/27/19 03/27/19 Range/Units 10:47 06:08 06:04 POC Glucose 245 H 142 H (70-99) Blood Type A Positive Antibody Screen NEGATIVE Crossmatch See Detail Medications Administered Current Inpatient Medications Albuterol (Ventolin Hfa) 2 puffs INH Q4H PRN PRN Reason: Shortness Of Breath Stop: 04/26/19 13:56 Albuterol (Ventolin 0.083% 2.5mg/3ml) 2.5 mg INH QID PRN PRN Reason: shortness of breath or wheezing Stop: 04/26/19 13:56 Aspirin (Ecotrin Ectab) 81 mg PO BID PATO Stop: 04/26/19 20:59 Atorvastatin Calcium (Lipitor) 40 mg PO PM PATO Stop: 04/26/19 20:59 Dextrose (Dextrose 50%) 25 - 50 ml IV UD PRN; Protocol PRN Reason: Hypoglycemia Protocol Stop: 04/26/19 14:29 Diltiazem HCl (Cardizem Cd) 240 mg PO PM PATO Stop: 04/26/19 20:59 Docusate Sodium (Colace) 100 mg PO BID PATO Stop: 04/26/19 20:59 Enoxaparin Sodium (Lovenox) 40 mg SQ QAM PATO Stop: 04/27/19 08:59 Fluticasone Propionate (Flonase) 1 sprays NA DAILY PRN PRN Reason: Congestion Stop: 04/26/19 13:56 Glimepiride (Amaryl) 4 mg PO QAM PATO Stop: 04/27/19 08:59 Glucagon (Glucagen) 1 mg IM UD PRN; Protocol PRN Reason: Hypoglycemia Protocol Stop: 04/26/19 14:29 Glucose (Glucose 40%) 15 - 30 gm PO UD PRN; Protocol PRN Reason: Hypoglycemia Protocol Stop: 04/26/19 14:29 Glucose (Dex4 Glucose) 4 - 8 tabs PO UD PRN; Protocol PRN Reason: Hypoglycemia Protocol Stop: 04/26/19 14:29 Acetaminophen (Ofirmev) 1,000 mg in 100 mls @ 400 mls/hr IV Q8H [facility] Stop: 03/30/19 13:56 Last Infusion: 03/27/19 14:38 Dose: Infused Documented by: Sodium Chloride (Nss 1000ml) 1,000 mls @ 70 mls/hr IV .[id number] PATO Stop: 04/26/19 13:56 Last Admin: 03/27/19 14:14 Dose: 70 mls/hr Documented by: Insulin Aspart (Novolog Flexpen) 0 units SC ACHS [facility] Stop: 04/26/19 14:29 Last Admin: 03/27/19 17:02 Dose: 9 units Documented by: Levetiracetam (Keppra) 1,000 mg PO BID [facility] Stop: 04/26/19 20:59 Levothyroxine Sodium (Synthroid) 25 mcg PO DAILYBB [facility] Stop: 04/27/19 06:29 Lisinopril (Zestril) 20 mg PO PM [facility] Stop: 04/26/19 20:59 Metoclopramide HCl (Reglan) 10 mg IV Q8H [facility] Stop: 03/28/19 02:01 Last Admin: 03/27/19 14:14 Dose: 10 mg Documented by: Miscellaneous (Order Awaiting Action) 1 ea N/A QS [facility] Stop: 04/26/19 15:59 Last Admin: 03/27/19 15:41 Dose: Not Given Documented by: Miscellaneous (Carbohydrates For Hypoglycemia) 15 - 30 gm PO UD PRN PRN Reason: Hypoglycemia Treatment Stop: 04/26/19 14:29 Montelukast Sodium (Singulair) 10 mg PO PM [facility] Stop: 04/26/19 20:59 Morphine Sulfate (Morphine Sulfate) 1 - 2 mg IV Q1H PRN PRN Reason: Pain Stop: 04/10/19 13:56 Ondansetron HCl (Zofran) 4 mg IV Q4H PRN PRN Reason: Nausea And Vomiting Stop: 04/26/19 13:56 Oxycodone HCl (Roxicodone Immediate Rel) 5 mg PO Q6H PRN PRN Reason: Pain Stop: 04/10/19 13:56 Sertraline HCl (Zoloft) 100 mg PO QAM [facility] Stop: 04/27/19 08:59 Resident Activity Tracking Resident Involvement: Resident Care Provided Care Provided: Adult Hospital Medicine (ICU)
[2019-03-27] MEDS: ATORVASTATIN 40 MG TAB PO SCH (19:50)
[2019-03-27] MEDS: ASPIRIN 81 MG ECTAB PO SCH (19:51)
[2019-03-27] MEDS: levETIRAcetam 500 MG TAB PO SCH (19:51)
[2019-03-27] MEDS: DOCUSATE SODIUM 100 MG CAP PO SCH (19:52)
[2019-03-27] MEDS: MONTELUKAST SODIUM 10 MG TABLET PO SCH (19:52)
[2019-03-27] MEDS ORDERED: LISINOPRIL 20 MG TAB PO SCH (21:00)
[2019-03-27] MEDS ORDERED: dilTIAZem HCL 240 MG CAPCR PO SCH (21:00)
[2019-03-28] MEDS: METOCLOPRAMIDE HCL INJ 5 MG/ML 2 ML VIAL IV SCH (03:01)
[2019-03-28 04:47] LABS: Basophils # (auto) 0.01 K/uL (0-0.2); Basophils % (auto) 0.1 %; Eosinophils # (auto) 0.02 K/uL (0-0.5); Eosinophils % (auto) 0.1 %; Hematocrit (blood only) 34.5 % (42-52); Hemoglobin 11.3 g/dL (14.0-18.0); Immature Granulocytes # (auto) 0.04 K/uL (0.00-0.02); Immature Granulocytes % (auto) 0.3 %; Lymphocytes % (auto) 5.7 %; Mean Corpuscular Hemoglobin 27.3 pg (25-34); Mean Corpuscular Hgb Conc 32.8 g/dL (32-36); Mean Corpuscular Volume 83.3 fL (80-100); Mean Platelet Volume 9.9 fL (7.4-10.4); Monocytes # (auto) 1.15 K/uL (0.11-0.59); Monocytes % (auto) 8.2 %; Neutrophils # (auto) 11.92 K/uL (1.4-6.5); Neutrophils % (auto) 85.6 %; Platelet Count 222 K/uL (130-400); RDW Coefficient of Variation 17.2 % (11.5-14.5); RDW Standard Deviation 52.5 fL (36.4-46.3); Red Blood Count 4.14 M/uL (4.7-6.1); White Blood Count 13.94 K/uL (4.8-10.8)
[2019-03-28 05:04] LABS: BUN Creatinine Ratio 21.3 (10-20); Calcium 8.4 mg/dl (8.5-10.1); Creatinine Clr Calc Pharmacy 61.7 ml/min; Est GFR (African American) 82.8; Est GFR (Non-African American) 71.4; Magnesium 1.9 mg/dl (1.8-2.4); Potassium 4.8 mmol/L (3.5-5.1)
[2019-03-28 05:06] LABS: Phosphorus 3.4 mg/dl (2.5-4.9)
[2019-03-28] MEDS ORDERED: dilTIAZem HCL 120 MG CAPCR PO STA (05:13)
[2019-03-28] MEDS ORDERED: SODIUM CHLORIDE 0.9% 250 ML IV ONE ×2 (05:15→05:45)
[2019-03-28] MEDS: SODIUM CHLORIDE 0.9% 1000ML 1,000 ML IV SCH (05:19)
[2019-03-28] MEDS ORDERED: dilTIAZem HCl 5 MG/ML 5 ML VIAL IV STA (06:02)
[2019-03-28] MEDS: LEVOTHYROXINE SODIUM 25 MCG TABLET PO SCH (06:15)
[2019-03-28] MEDS: ACETAMINOPHEN 1,000 MG/100 ML VIAL IV SCH (06:15)
[2019-03-28] MEDS ORDERED: SODIUM CHLORIDE 0.9% 1000ML 250 ML IV ONE (06:36)
--- NOTE | 2019-03-28 07:03 | XRay Report ---
XR chest 1V portable CLINICAL HISTORY: 78 years-old Male presenting with RLL wedge. TECHNIQUE: Portable upright AP view of the chest was obtained. COMPARISON: 03/27/2019. FINDINGS: A large bore right pleural drain remains position at the right apex. A trace right apical pneumothora x may still be present. Atherosclerosis of the aortic arch. Cardiac silhouette moderately enlarged. I mproved aeration of the left lung. Small left pleural effusion suspected. Subcutaneous emphysema yanely g the right lateral chest wall related to the pleural drain. Mild degenerative changes of the spine. Upper abdomen normal. IMPRESSION: 1. Suspected trace right apical pneumothorax with the right pleural drain in place. 2. Improved aeration of the left lung. 3. Cardiomegaly. No advanced congestive change or hieu pulmonary edema. Electronically signed by: Sekou Milan M.D. 03/28/2019 7:01 AM
--- NOTE | 2019-03-28 08:01 | Anesthesiology Progress Note ---
Date of Service March 28, 2019 Anesthesia Post Procedure Vital Signs Vital Signs: Temp Pulse Pulse Resp BP BP Pulse Ox 03/28/19 06:11 105 H 26 H 140/74 92 03/28/19 06:01 115 H 22 93 03/28/19 06:00 110 H 19 98/86 L 91 03/28/19 05:01 93 H 16 94 03/28/19 05:00 95 H 23 128/71 95 03/28/19 04:00 36.7 C 87 23 129/80 96 03/28/19 03:00 90 23 129/77 90 03/28/19 02:00 79 18 109/66 95 03/28/19 01:01 92 H 21 95 03/28/19 01:00 86 20 120/71 94 03/28/19 00:46 88 18 121/74 97 03/28/19 00:30 72 18 118/65 97 03/28/19 00:15 79 20 117/66 97 03/28/19 00:00 36.7 C 69 19 110/66 99 03/27/19 23:45 72 20 114/65 95 03/27/19 23:30 71 19 109/63 98 03/27/19 23:15 72 22 114/62 93 03/27/19 23:00 69 19 110/64 99 03/27/19 22:45 70 19 112/61 98 03/27/19 22:40 68 16 98 03/27/19 22:31 36.8 C 68 18 99 03/27/19 22:30 70 19 114/63 99 03/27/19 22:20 69 19 99 03/27/19 22:15 66 22 120/64 100 03/27/19 22:10 68 17 98 03/27/19 22:01 69 18 99 03/27/19 22:00 69 19 116/65 99 03/27/19 21:51 68 19 99 03/27/19 21:45 70 19 118/64 98 03/27/19 21:40 71 17 99 03/27/19 21:31 71 23 99 03/27/19 21:30 69 22 118/66 99 03/27/19 21:20 74 27 H 98 03/27/19 21:15 81 20 133/69 96 03/27/19 20:50 62 18 99 11/20/19 20:45 63 21 113/64 98 03/27/19 20:30 63 17 104/60 100 03/27/19 20:15 36.7 C 63 17 108/64 99 03/27/19 20:00 68 21 112/76 98 03/27/19 19:45 64 20 99/59 L 99 03/27/19 19:30 64 17 95/61 L 98 03/27/19 19:15 64 26 H 95/63 L 98 03/27/19 19:00 66 28 H 100/58 L 98 03/27/19 18:45 66 19 110/63 98 03/27/19 18:30 69 25 H 115/69 96 03/27/19 18:15 67 23 117/69 96 03/27/19 18:00 69 22 117/63 96 03/27/19 17:45 66 18 97/53 L 97 03/27/19 17:30 67 20 101/57 L 97 03/27/19 17:15 72 25 H 120/79 94 03/27/19 17:00 73 19 101/55 L 98 03/27/19 16:45 73 19 108/64 97 03/27/19 16:30 67 23 103/60 98 03/27/19 16:15 70 21 102/57 L 98 03/27/19 16:00 70 23 95/47 L 95 03/27/19 15:30 71 22 97/51 L 93 03/27/19 15:15 36.8 C 77 24 101/56 L 94 03/27/19 15:12 80 03/27/19 15:05 81 26 H 105/49 L 88 L 03/27/19 15:00 92 H 20 93 03/27/19 14:45 91 H 20 110/57 L 95 03/27/19 14:30 90 19 94 03/27/19 14:15 73 21 109/64 98 03/27/19 14:00 74 22 95 03/27/19 13:54 36.9 C 73 20 114/63 97 03/27/19 13:10 36.9 C 75 19 87/50 L 96 03/27/19 13:00 36.9 C 76 19 72/31 L 96 03/27/19 12:50 36.9 C 75 18 84/36 L 95 03/27/19 12:40 75 19 89/49 L 95 03/27/19 12:30 36.5 C 74 19 83/33 L 96 03/27/19 12:20 36.5 C 71 18 89/34 L 95 03/27/19 12:10 36.5 C 73 19 76/47 L 93 03/27/19 12:00 36.5 C 76 19 89/45 L 94 03/27/19 11:53 73 18 95 03/27/19 11:51 73 18 95 03/27/19 11:50 36.5 C 73 19 88/58 L 94 03/27/19 11:40 36.5 C 73 19 86/54 L 94 03/27/19 11:30 36.5 C 74 18 83/53 L 94 03/27/19 11:20 36.2 C L 77 18 89/42 L 93 03/27/19 11:10 36.2 C L 77 18 84/45 L 92 03/27/19 11:04 36.2 C L 75 20 98/52 L 93 03/27/19 10:48 77 18 92 Notes Mental Status: alert / awake / arousable and participated in evaluation Patient Amnestic to Procedure: Yes Nausea / Vomiting: adequately controlled Pain: adequately controlled Airway Patency, RR, SpO2: stable & adequate BP & HR: stable & adequate Hydration State: stable & adequate Anesthetic Complications: no major complications apparent and Pt Satisfied with anesthetic care Notes: Pt is still in the ICU but sitting up in a bedside chair eating breakfast, States that he is feeling really good this a.m.
[2019-03-28] MEDS: INSULIN ASPART 100 UNITS/ML 3 ML PEN SC SCH ×4 (08:32→21:29)
[2019-03-28] MEDS: DOCUSATE SODIUM 100 MG CAP PO SCH ×2 (08:35→21:27)
[2019-03-28] MEDS: SERTRALINE HCL 100 MG TABLET PO SCH (08:35)
[2019-03-28] MEDS: ASPIRIN 81 MG ECTAB PO SCH ×2 (08:36→21:28)
[2019-03-28] MEDS: levETIRAcetam 500 MG TAB PO SCH ×2 (08:36→21:27)
[2019-03-28] MEDS: ALBUTEROL HFA 8 GM INHALER INH PRN ×2 (08:42→19:38)
--- NOTE | 2019-03-28 08:57 | Billing Data ---
Coding Level of Care Code Critical Care 1st 30-74 mins
[2019-03-28] MEDS ORDERED: GLIMEPIRIDE 2 MG TAB PO SCH (09:00)
[2019-03-28] MEDS ORDERED: ENOXAPARIN INJ 40 MG/0.4 ML SYR SQ SCH (09:00)
--- NOTE | 2019-03-28 09:00 | Cardiology Progress Note ---
Date of Service March 28, 2019 Assessment & Plan (1) Paroxysmal atrial fibrillation: He has a history of atrial fibrillation as well as atrial flutter, we did do a flutter ablation here in 2016 and I do not know if he has had recurrence of that. I do not have a lot of records, he does seem to follow with Dr. King in [place] for his atrial arrhythmias but I do not know the status. I believe he was last seen there in December of this year. He has had paroxysmal atrial fibrillation here, however for the most part he has been in sinus rhythm. He does take Eliquis. He is on diltiazem 240 mg daily at home, that was ordered here for the evening as well however it was held last evening due to borderline blood pressure. I would continue his outpatient regimen since he now has recurrent atrial fibrillation with a rapid heart rate. I am going to give him another diltiazem 120 mg dose this morning and change his regimen to morning, I do not know why he takes it in the evening. If he continues to be rapid we can adjust his medications. Once he gets back on his outpatient medications his rate may be adequately controlled or perhaps he will not have much in way of atrial fibrillation. (2) Arteriosclerotic coronary artery disease: He has coronary artery disease, I believe that is also followed in [place]. But does not seem to be active now and I would not alter his treatment for it. (3) Anticoagulant long-term use: He is on Eliquis as an outpatient I believe, I would start it now if possible. Given his age, weight and kidney function he would be on 5 mg twice a day. Subjective He is feeling well today, he has no complaints. He is unaware of his heart rhythm (which is now atrial fibrillation). He went into atrial fibrillation at 5 AM this morning, the rate was averaging around 120 bpm. Of note his evening Cardizem was held due to hypotension which was only slightly below 100 which is the hold parameter. When he went into atrial fibrillation he received 10 mg of IV diltiazem and a 120 mg p.o. dose. Physical Exam Physical Exam: Constitutional: Alert, cooperative and in no distress. HEENT: Unremarkable Neck: No jugular venous distention, carotid pulses are irregular but otherwise normal and equal bilaterally without bruits. Pulmonary: Clear to auscultation on the left, decreased breath sounds on the right. Cardiac: Irregular rhythm with no murmur, gallop or rub. Abdomen: Soft, nontender with normal bowel sounds. Extremities: No edema. Distal pulses intact. Neurologic: No focal findings. Gait is steady. Skin: No rash, ecchymoses or petechiae. Results & Data Vital Signs (Past 12 Hours) Vital Signs Temp Pulse Resp BP Pulse Ox 03/28/19 06:11 105 H 26 H 140/74 92 03/28/19 06:01 115 H 22 93 03/28/19 06:00 110 H 19 98/86 L 91 03/28/19 05:01 93 H 16 94 03/28/19 05:00 95 H 23 128/71 95 03/28/19 04:00 36.7 C 87 23 129/80 96 03/28/19 03:00 90 23 129/77 90 03/28/19 02:00 79 18 109/66 95 03/28/19 01:01 92 H 21 95 03/28/19 01:00 86 20 120/71 94 03/28/19 00:46 88 18 121/74 97 03/28/19 00:30 72 18 118/65 97 03/28/19 00:15 79 20 117/66 97 03/28/19 00:00 36.7 C 69 19 110/66 99 03/27/19 23:45 72 20 114/65 95 03/27/19 23:30 71 19 109/63 98 03/27/19 23:15 72 22 114/62 93 03/27/19 23:00 69 19 110/64 99 03/27/19 22:45 70 19 112/61 98 03/27/19 22:40 68 16 98 03/27/19 22:31 36.8 C 68 18 99 03/27/19 22:30 70 19 114/63 99 03/27/19 22:20 69 19 99 03/27/19 22:15 66 22 120/64 100 03/27/19 22:10 68 17 98 03/27/19 22:01 69 18 99 03/27/19 22:00 69 19 116/65 99 03/27/19 21:51 68 19 99 03/27/19 21:45 70 19 118/64 98 03/27/19 21:40 71 17 99 03/27/19 21:31 71 23 99 03/27/19 21:30 69 22 118/66 99 03/27/19 21:20 74 27 H 98 03/27/19 21:15 81 20 133/69 96 Laboratory Results Abnormal lab results 03/27/19 03/27/19 03/27/19 Range/Units 10:47 14:21 16:31 WBC (4.8-10.8) K/uL RBC (4.7-6.1) M/uL Hgb (14.0-18.0) g/dL Hct (42-52) % RDW Std Deviation (36.4-46.3) fL RDW Coeff of Ashu (11.5-14.5) % Immature Gran # (Auto) (0.00-0.02) K/uL Neut # (Auto) (1.4-6.5) K/uL Lymph # (Auto) (1.2-3.4) K/uL [place] # (Auto) (0.11-0.59) K/uL Sodium (136-145) mmol/L BUN (7-18) mg/dl BUN/Creatinine Ratio (10-20) Glucose (70-99) mg/dl POC Glucose 245 H 252 H 304 H* (70-99) Calcium (8.5-10.1) mg/dl 03/27/19 03/27/19 03/28/19 Range/Units 16:34 20:53 04:21 WBC 13.94 H (4.8-10.8) K/uL RBC 4.14 L (4.7-6.1) M/uL Hgb 11.3 L (14.0-18.0) g/dL Hct 34.5 L (42-52) % RDW Std Deviation 52.5 H (36.4-46.3) fL RDW Coeff of Ashu 17.2 H (11.5-14.5) % Immature Gran # (Auto) 0.04 H (0.00-0.02) K/uL Neut # (Auto) 11.92 H (1.4-6.5) K/uL Lymph # (Auto) 0.80 L (1.2-3.4) K/uL [place] # (Auto) 1.15 H (0.11-0.59) K/uL Sodium (136-145) mmol/L BUN (7-18) mg/dl BUN/Creatinine Ratio (10-20) Glucose (70-99) mg/dl POC Glucose 276 H 284 H (70-99) Calcium (8.5-10.1) mg/dl 03/28/19 Range/Units 04:21 WBC (4.8-10.8) K/uL RBC (4.7-6.1) M/uL Hgb (14.0-18.0) g/dL Hct (42-52) % RDW Std Deviation (36.4-46.3) fL RDW Coeff of Ashu (11.5-14.5) % Immature Gran # (Auto) (0.00-0.02) K/uL Neut # (Auto) (1.4-6.5) K/uL Lymph # (Auto) (1.2-3.4) K/uL [place] # (Auto) (0.11-0.59) K/uL Sodium 135 L (136-145) mmol/L BUN 22 H (7-18) mg/dl BUN/Creatinine Ratio 21.3 H (10-20) Glucose 207 H (70-99) mg/dl POC Glucose (70-99) Calcium 8.4 L (8.5-10.1) mg/dl Diagnostic Findings Telemetry: Atrial fibrillation starting at 5 AM, sinus rhythm before that overnight PG Care Time/CCT Total # of Minutes Spent Total Time Spent with Patient: Total time spent is greater than 50% in coordination of care (as documented) at patient's floor/unit and/or counseling patient:
--- NOTE | 2019-03-28 09:03 | Critical Care Progress Note ---
Date of Service March 28, 2019 Assessment & Plan (1) History of lung biopsy: 78 yo male was transferred to the ICU following his robotic VATS with right lower lobe wedge resection and lymph node biopsy for a hamartoma of the right lower lobe. SURVEY RESEARCH CENTER DIRECTOR: CAM-ICU negative. No known acute issues. 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 PMH TIA, depression, possible encephalopathy. On home ASA 81, keppra, and sertraline. Pulm: Pulmonary nodule seen on Feb 2019 [address] chest. 20Nov s/p wedge resection. Post-op pCXR noted volume loss of left lung with airspace consolidation. PMH asthma, moderate COPD (on 2L O2 nightly), chronic rhinitis, and pneumonia (antibiotics in early Feb). On home Trelegy, singulair, and prn albuterol. Last pCXR notes improved left lung aeration. Thoracic surgery says tube hopefully out tomorrow (see related notes). CVS: Some noted hypotension in the OR, thought to be volume-depletion. On IVF. PMH HTN, HLD, atrial flutter, paroxysmal A. fib, AAA. On home ASA 81, Lipitor, diltiazem. Holding home lisinopril. See cardiology notes. - Some relative hypotension overnight with rate-controlled afib. Modified his diltiazem dosing a bit. ID: Afebrile. WBC 14. Received clindamycin jenifer-operatively. No known infectious issues. Endo: PMH DM2 with Jan 2019 HbA1c 6.9. At home is on glimepiride and metformin. In ICU, glucose checks per protocol and ISS prn. PMH hypothyroidism with Jan 07 019 TSH 2.3, on home synthroid. PMH vitamin B12 deficiency, at home on replacement. Renal/Lytes: Pre-op Cr 0.8, post-op 1.01. PMH BPH. Had some urinary retention overnight, placed coude catheter. Will add Flomax. Recommend voiding trial in 24 hours. GI: On DM diet. No known acute issues. Heme: Pre-op Hb 14, post-op 11.3. DVT prophy: Stop lovenox, restart home eliquis. Skin: PSH Mohs surgery. Right arm rash thought to be related to PET scan dye. Lines: Right chest tube, arterial line (planned removal today). Code status: Full code. PT/OT: Ordered. Disposition: Stable for transfer to telemetry. (2) Seizure: (3) TIA (transient ischemic attack): (4) Depression: (5) Asthma: (6) COPD, moderate: (7) Chronic rhinitis: (8) Hypotension: (9) Hypertension: (10) Dyslipidemia: (11) Atrial flutter: (12) Paroxysmal atrial fibrillation: (13) Abdominal aortic aneurysm (AAA), 30-34 mm diameter: (14) Type 2 diabetes mellitus: (15) Hypothyroidism (acquired): Supervising Physician Co-Signing Physician Notes Dr. Nuñez was resident physician during care of patient. I separately evaluated patient for varela portions of the history and the exam. I was present during the critical portion of medical decision making, and I discussed the case with the resident. I generally agree with the findings and plan. Patient was discussed on multidisciplinary rounds, I also discussed with cardiology. Stable to remove arterial line, cardiology adjusting Cardizem, currently, would advocate for starting Eliquis 5 mg twice daily. Zhao placed yesterday for urinary retention following surgery, will defer to primary team, would do a voiding trial in 24 hours, if fails would consider alpha-nelli and possible urology follow-up. Stable for downgrade out of ICU Subjective Spoke with patient this morning. He was sitting comfortably in the bedside chair. He says that overall he is relatively pain-free though his chest tube site is sore. He requests an albuterol breathing treatment saying that he feels like he is wheezing. Denies any chest pain. No other acute patient concerns. Review of Systems Review of Systems: Per HPI as above. Physical Exam Physical Exam: General Appearance: Awake, alert & oriented, comfortable in general, NAD. CV: +S1S2 irregularly irregular, no murmur. Pulm: Decreased breath sounds in left jefferson and generalized wheezing. Right chest tube in place. Abdomen: +BS, soft, non-tender, non-distended. Extremities: No pedal edema or calf tenderness. Moving all extremities naturally and easily. There is a patchy erythematous rash along the right AC and proximal arm. Neuro: No gross neuro deficits. Results & Data Vital Signs (Past 12 Hours) Vital Signs Temp Pulse Resp BP Pulse Ox 03/28/19 06:11 105 H 26 H 140/74 92 03/28/19 06:01 115 H 22 93 03/28/19 06:00 110 H 19 98/86 L 91 03/28/19 05:01 93 H 16 94 03/28/19 05:00 95 H 23 128/71 95 03/28/19 04:00 36.7 C 87 23 129/80 96 03/28/19 03:00 90 23 129/77 90 03/28/19 02:00 79 18 109/66 95 03/28/19 01:01 92 H 21 95 03/28/19 01:00 86 20 120/71 94 03/28/19 00:46 88 18 121/74 97 03/28/19 00:30 72 18 118/65 97 03/28/19 00:15 79 20 117/66 97 03/28/19 00:00 36.7 C 69 19 110/66 99 03/27/19 23:45 72 20 114/65 95 03/27/19 23:30 71 19 109/63 98 03/27/19 23:15 72 22 114/62 93 03/27/19 23:00 69 19 110/64 99 03/27/19 22:45 70 19 112/61 98 03/27/19 22:40 68 16 98 03/27/19 22:31 36.8 C 68 18 99 03/27/19 22:30 70 19 114/63 99 03/27/19 22:20 69 19 99 03/27/19 22:15 66 22 120/64 100 03/27/19 22:10 68 17 98 03/27/19 22:01 69 18 99 03/27/19 22:00 69 19 116/65 99 03/27/19 21:51 68 19 99 03/27/19 21:45 70 19 118/64 98 03/27/19 21:40 71 17 99 03/27/19 21:31 71 23 99 03/27/19 21:30 69 22 118/66 99 03/27/19 21:20 74 27 H 98 03/27/19 21:15 81 20 133/69 96 Laboratory Results 03/28/19 03/28/19 03/28/19 Range/Units 07:38 04:21 04:21 WBC 13.94 H (4.8-10.8) K/uL RBC 4.14 L (4.7-6.1) M/uL Hgb 11.3 L (14.0-18.0) g/dL Hct 34.5 L (42-52) % MCV 83.3 (80-100) fL MCH 27.3 (25-34) pg MCHC 32.8 (32-36) g/dL RDW Std Deviation 52.5 H (36.4-46.3) fL RDW Coeff of Ashu 17.2 H (11.5-14.5) % Plt Count 222 (130-400) K/uL MPV 9.9 (7.4-10.4) fL Immature Gran % (Auto) 0.3 % Neut % (Auto) 85.6 % Lymph % (Auto) 5.7 % [place] % (Auto) 8.2 % Eos % (Auto) 0.1 % Baso % (Auto) 0.1 % Immature Gran # (Auto) 0.04 H (0.00-0.02) K/uL Neut # (Auto) 11.92 H (1.4-6.5) K/uL Lymph # (Auto) 0.80 L (1.2-3.4) K/uL [place] # (Auto) 1.15 H (0.11-0.59) K/uL Eos # (Auto) 0.02 (0-0.5) K/uL Baso # (Auto) 0.01 (0-0.2) K/uL Sodium 135 L (136-145) mmol/L Potassium 4.8 (3.5-5.1) mmol/L Chloride 106 (98-107) mmol/L Carbon Dioxide 23 (21-32) mmol/L Anion Gap 6.0 (3-11) BUN 22 H (7-18) mg/dl Creatinine 1.01 (0.6-1.4) mg/dl Est Cr Clr Drug Dosing 61.7 ml/min Est GFR ( Amer) 82.8 Est GFR (Non-Af Amer) 71.4 BUN/Creatinine Ratio 21.3 H (10-20) Glucose 207 H (70-99) mg/dl POC Glucose 228 H (70-99) Calcium 8.4 L (8.5-10.1) mg/dl Phosphorus 3.4 (2.5-4.9) mg/dl Magnesium 1.9 (1.8-2.4) mg/dl Nasal Screen MRSA (PCR) (Negative) 03/27/19 03/27/19 03/27/19 Range/Units 20:53 16:34 16:31 WBC (4.8-10.8) K/uL RBC (4.7-6.1) M/uL Hgb (14.0-18.0) g/dL Hct (42-52) % MCV (80-100) fL MCH (25-34) pg MCHC (32-36) g/dL RDW Std Deviation (36.4-46.3) fL RDW Coeff of Ashu (11.5-14.5) % Plt Count (130-400) K/uL MPV (7.4-10.4) fL Immature Gran % (Auto) % Neut % (Auto) % Lymph % (Auto) % [place] % (Auto) % Eos % (Auto) % Baso % (Auto) % Immature Gran # (Auto) (0.00-0.02) K/uL Neut # (Auto) (1.4-6.5) K/uL Lymph # (Auto) (1.2-3.4) K/uL [place] # (Auto) (0.11-0.59) K/uL Eos # (Auto) (0-0.5) K/uL Baso # (Auto) (0-0.2) K/uL Sodium (136-145) mmol/L Potassium (3.5-5.1) mmol/L Chloride (98-107) mmol/L Carbon Dioxide (21-32) mmol/L Anion Gap (3-11) BUN (7-18) mg/dl Creatinine (0.6-1.4) mg/dl Est Cr Clr Drug Dosing ml/min Est GFR ( Amer) Est GFR (Non-Af Amer) BUN/Creatinine Ratio (10-20) Glucose (70-99) mg/dl POC Glucose 284 H 276 H 304 H* (70-99) Calcium (8.5-10.1) mg/dl Phosphorus (2.5-4.9) mg/dl Magnesium (1.8-2.4) mg/dl Nasal Screen MRSA (PCR) (Negative) 03/27/19 03/27/19 03/27/19 Range/Units 15:53 14:21 10:47 WBC (4.8-10.8) K/uL RBC (4.7-6.1) M/uL Hgb (14.0-18.0) g/dL Hct (42-52) % MCV (80-100) fL MCH (25-34) pg MCHC (32-36) g/dL RDW Std Deviation (36.4-46.3) fL RDW Coeff of Ashu (11.5-14.5) % Plt Count (130-400) K/uL MPV (7.4-10.4) fL Immature Gran % (Auto) % Neut % (Auto) % Lymph % (Auto) % [place] % (Auto) % Eos % (Auto) % Baso % (Auto) % Immature Gran # (Auto) (0.00-0.02) K/uL Neut # (Auto) (1.4-6.5) K/uL Lymph # (Auto) (1.2-3.4) K/uL [place] # (Auto) (0.11-0.59) K/uL Eos # (Auto) (0-0.5) K/uL Baso # (Auto) (0-0.2) K/uL Sodium (136-145) mmol/L Potassium (3.5-5.1) mmol/L Chloride (98-107) mmol/L Carbon Dioxide (21-32) mmol/L Anion Gap (3-11) BUN (7-18) mg/dl Creatinine (0.6-1.4) mg/dl Est Cr Clr Drug Dosing ml/min Est GFR ( Amer) Est GFR (Non-Af Amer) BUN/Creatinine Ratio (10-20) Glucose (70-99) mg/dl POC Glucose 252 H 245 H (70-99) Calcium (8.5-10.1) mg/dl Phosphorus (2.5-4.9) mg/dl Magnesium (1.8-2.4) mg/dl Nasal Screen MRSA (PCR) Negative (Negative) Medications Administered Current Inpatient Medications Acetaminophen (Tylenol) 1,000 mg PO Q8H PATO Stop: 04/27/19 13:59 Albuterol (Ventolin Hfa) 2 puffs INH Q4H PRN PRN Reason: Shortness Of Breath Stop: 04/26/19 13:56 Last Admin: 03/28/19 08:42 Dose: 2 puffs Documented by: Albuterol (Ventolin 0.083% 2.5mg/3ml) 2.5 mg INH QID PRN PRN Reason: shortness of breath or wheezing Stop: 04/26/19 13:56 Apixaban (Eliquis) 5 mg PO BID PATO Stop: 04/27/19 09:29 Last Admin: 03/28/19 09:56 Dose: 5 mg Documented by: Aspirin (Ecotrin Ectab) 81 mg PO BID PATO Stop: 04/26/19 20:59 Last Admin: 03/28/19 08:36 Dose: 81 mg Documented by: Atorvastatin Calcium (Lipitor) 40 mg PO PM PATO Stop: 04/26/19 20:59 Last Admin: 03/27/19 19:50 Dose: 40 mg Documented by: Dextrose (Dextrose 50%) 25 - 50 ml IV UD PRN; Protocol PRN Reason: Hypoglycemia Protocol Stop: 04/26/19 14:29 Diltiazem HCl (Cardizem Cd) 240 mg PO QAM [facility] Stop: 04/28/19 08:59 Docusate Sodium (Colace) 100 mg PO BID [facility] Stop: 04/26/19 20:59 Last Admin: 03/28/19 08:35 Dose: 100 mg Documented by: Fluticasone Propionate (Flonase) 1 sprays NA DAILY PRN PRN Reason: Congestion Stop: 04/26/19 13:56 Glimepiride (Amaryl) 4 mg PO QAM [facility] Stop: 04/27/19 08:59 Glucagon (Glucagen) 1 mg IM UD PRN; Protocol PRN Reason: Hypoglycemia Protocol Stop: 04/26/19 14:29 Glucose (Glucose 40%) 15 - 30 gm PO UD PRN; Protocol PRN Reason: Hypoglycemia Protocol Stop: 04/26/19 14:29 Glucose (Dex4 Glucose) 4 - 8 tabs PO UD PRN; Protocol PRN Reason: Hypoglycemia Protocol Stop: 04/26/19 14:29 Insulin Aspart (Novolog Flexpen) 0 units SC ACHS [facility] Stop: 04/26/19 14:29 Last Admin: 03/28/19 08:32 Dose: 6 units Documented by: Levetiracetam (Keppra) 1,000 mg PO BID [facility] Stop: 04/26/19 20:59 Last Admin: 03/28/19 08:36 Dose: 1,000 mg Documented by: Levothyroxine Sodium (Synthroid) 25 mcg PO DAILYBB [facility] Stop: 04/27/19 06:29 Last Admin: 03/28/19 06:15 Dose: 25 mcg Documented by: Lisinopril (Zestril) 20 mg PO PM PATO Stop: 04/26/19 20:59 Magnesium Oxide (Mag-Ox) 400 mg PO QAM [facility] Stop: 04/27/19 20:59 Miscellaneous (Order Awaiting Action) 1 ea N/A QS [facility] Stop: 04/26/19 15:59 Last Admin: 03/28/19 09:55 Dose: Not Given Documented by: Miscellaneous (Carbohydrates For Hypoglycemia) 15 - 30 gm PO UD PRN PRN Reason: Hypoglycemia Treatment Stop: 04/26/19 14:29 Montelukast Sodium (Singulair) 10 mg PO PM [facility] Stop: 04/26/19 20:59 Last Admin: 03/27/19 19:52 Dose: 10 mg Documented by: Morphine Sulfate (Morphine Sulfate) 1 - 2 mg IV Q1H PRN PRN Reason: Pain Stop: 04/10/19 13:56 Ondansetron HCl (Zofran) 4 mg IV Q4H PRN PRN Reason: Nausea And Vomiting Stop: 04/26/19 13:56 Oxycodone HCl (Roxicodone Immediate Rel) 5 mg PO Q6H PRN PRN Reason: Pain Stop: 04/10/19 13:56 Sertraline HCl (Zoloft) 100 mg PO QAM [facility] Stop: 04/27/19 08:59 Last Admin: 03/28/19 08:35 Dose: 100 mg Documented by: Tamsulosin HCl (Flomax) 0.4 mg PO HS [facility] Stop: 04/27/19 20:59 Resident Activity Tracking Resident Involvement: Resident Care Provided Care Provided: Adult Hospital Medicine (ICU)
--- NOTE | 2019-03-28 09:11 | Billing Data ---
Coding Level of Care Code 20632 Subseq Hosp Care Lvl 3
[2019-03-28] MEDS ORDERED: dilTIAZem HCL 120 MG CAPCR PO ONE (09:30)
[2019-03-28] MEDS: APIXABAN 5 MG TABLET PO SCH ×2 (09:56→21:28)
[2019-03-28] MEDS ORDERED: TAMSULOSIN HCL 0.4 MG CAP PO ONE (13:17)
[2019-03-28] MEDS: ACETAMINOPHEN 500 MG TAB PO SCH ×2 (13:42→21:28)
--- NOTE | 2019-03-28 15:40 | Surgery Progress Note ---
Date of Service March 28, 2019 Assessment & Plan (1) 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: He appears to be settling down from an atrial arrhythmia standpoint. Dr. Cedillo's input is been greatly appreciated. We will probably move his chest tube in the morning. He had a Zhao catheter in but is been started on Flomax we will remove that later today. Instructed nurses to ambulate him in the hallway. He appears to be stable from a surgical standpoint. We will move him to telemetry today. Present on Admission?: Yes Subjective Mr. Zurita was seen today 1 day after a robot-assisted thoracoscopic wedge resection of what turned out to be a hamartoma. No complaints of pain. He had difficulty urinating and a Zhao catheter was placed and has been draining fluid well. Flomax has been started we will remove his Zhao later tonight. Chest tube has really no air leak. He has drained very little from his chest tube and his x-ray is improved. He is eating a regular diet. Physical Exam Physical Exam: He is in good spirits. He still wearing 2 L of O2 with saturations 96%. He has been in and out of atrial fibrillation. He is moving air well. He has no air leak and very little drainage from his chest tube. Results & Data Vital Signs (Past 12 Hours) Vital Signs Temp Pulse Resp BP Pulse Ox 03/28/19 14:01 87 20 96 03/28/19 14:00 92 H 24 127/70 96 03/28/19 13:01 91 H 28 H 93 03/28/19 13:00 101 H 20 110/85 96 03/28/19 12:00 90 22 102/58 L 96 03/28/19 11:15 99 H 18 103/72 96 03/28/19 11:01 87 20 90 03/28/19 11:00 90 24 96 03/28/19 10:00 91 H 17 108/76 96 03/28/19 09:00 100 H 20 116/65 96 03/28/19 08:13 36.6 C 109 H 17 106/74 94 03/28/19 08:00 99 H 103/72 03/28/19 07:00 119 H 25 H 114/69 94 03/28/19 06:43 108 H 03/28/19 06:11 105 H 26 H 140/74 92 03/28/19 06:01 115 H 22 93 03/28/19 06:00 110 H 19 98/86 L 91 03/28/19 05:01 93 H 16 94 03/28/19 05:00 95 H 23 128/71 95 03/28/19 04:00 36.7 C 87 23 129/80 96 PG Care Time/CCT Total # of Minutes Spent Total Time Spent with Patient: Total time spent is greater than 50% in coordination of care (as documented) at patient's floor/unit and/or counseling patient:
[2019-03-28] MEDS: MAGNESIUM OXIDE 400 MG TAB PO SCH (21:27)
[2019-03-28] MEDS: ATORVASTATIN 40 MG TAB PO SCH (21:27)
[2019-03-28] MEDS: TAMSULOSIN HCL 0.4 MG CAP PO SCH (21:28)
[2019-03-28] MEDS: MONTELUKAST SODIUM 10 MG TABLET PO SCH (21:29)
[2019-03-29] MEDS ORDERED: METOPROLOL TARTRATE 1 MG/ML VIAL IV PRN (00:40)
[2019-03-29] MEDS ORDERED: METOPROLOL TARTRATE 1 MG/ML VIAL IV SCH (00:45)
[2019-03-29] MEDS: MAGNESIUM SULFATE / D5W 1 GM/100 ML BAG IV SCH ×3 (01:03→03:25)
[2019-03-29] MEDS: ALBUTEROL HFA 8 GM INHALER INH PRN ×3 (03:27→20:25)
[2019-03-29] MEDS: ACETAMINOPHEN 500 MG TAB PO SCH ×3 (05:01→21:23)
[2019-03-29] MEDS: LEVOTHYROXINE SODIUM 25 MCG TABLET PO SCH (05:01)
--- NOTE | 2019-03-29 07:09 | XRay Report ---
XR chest 1V portable CLINICAL HISTORY: 78 years-old Male presenting with lung wedge resection. TECHNIQUE: Portable upright AP view of the chest was obtained. COMPARISON: 03/28/2019. FINDINGS: Large bore right pleural drain remains positioned at the right apex. Atherosclerosis of the aortic ar ch. Cardiac silhouette remains enlarged. Slight leftward deviation of the mediastinum, an appearance which is unchanged from prior and likely due to right lung volume loss. Extensive right mid to lower lung density, which is increased from prior. There is likely left pleural effusion. Allowing for port able technique, a right apical pneumothorax is not demonstrated on the current exam. Scattered linear opacities in the right lung most prominently at the right lung base, increased from prior. Subcutane ous edema along the right chest wall associated with the pleural drain. IMPRESSION: 1. No demonstrable pneumothorax on the current exam allowing for portable technique. Right pleural d rain in place. 2. Significant interval increase in consolidation in the left mid to lower lung with increasing left pleural effusion. While this could represent atelectasis, infection is difficult to exclude. 3. Increasing right basilar atelectasis. 4. Cardiomegaly. Some degree of volume overload may be present. Electronically signed by: Sekou Milan M.D. 03/29/2019 7:08 AM
[2019-03-29] MEDS: INSULIN ASPART 100 UNITS/ML 3 ML PEN SC SCH ×4 (08:10→20:26)
[2019-03-29] MEDS: dilTIAZem HCL 240 MG CAPCR PO SCH (08:12)
[2019-03-29] MEDS: ASPIRIN 81 MG ECTAB PO SCH ×2 (08:12→20:24)
[2019-03-29] MEDS: SERTRALINE HCL 100 MG TABLET PO SCH (08:12)
[2019-03-29] MEDS: DOCUSATE SODIUM 100 MG CAP PO SCH ×2 (08:12→21:23)
[2019-03-29] MEDS ORDERED: PIPERACILL/TAZOBAC CONSULT ACTIVE PRN (08:16)
[2019-03-29] MEDS: MAGNESIUM OXIDE 400 MG TAB PO SCH (08:18)
[2019-03-29] MEDS: levETIRAcetam 500 MG TAB PO SCH ×2 (08:18→20:25)
[2019-03-29] MEDS: APIXABAN 5 MG TABLET PO SCH ×2 (08:18→21:23)
[2019-03-29] MEDS: TAMSULOSIN HCL 0.4 MG CAP PO SCH ×2 (08:19→20:24)
[2019-03-29] MEDS ORDERED: PIPERACILLIN/TAZOBACTAM 3.375 GM in DEXTROSE 5% 100 ML IV ONE (09:00)
[2019-03-29] MEDS: guaiFENesin 600 MG TABCR PO SCH ×2 (09:06→20:27)
--- NOTE | 2019-03-29 09:28 | XRay Report ---
XR chest 1V portable HISTORY: Chest tube removal. COMPARISON: Chest 03/27/2019. FINDINGS: Interval removal of the right-sided chest tube. Small right pneumothorax with a maximal ple ural gap of 9 mm. Volume loss and consolidation within the left lung persists. Left mediastinal shift and mild cardiomegaly remain unchanged. Right basilar densities have slightly improved and favor ate lectasis. IMPRESSION: 1. Interval removal of right-sided chest tube. There is a small right apical pneumothorax. 2. No change in the left lung volume loss and left lower lobe consolidation/atelectasis. Electronically signed by: Reagan Villanueva M.D. 03/29/2019 9:27 AM
--- NOTE | 2019-03-29 12:29 | XRay Report ---
XR chest 1V portable CLINICAL HISTORY: 78 years-old Male presenting with f/p tube removal, small apical pneumothorax. TECHNIQUE: Portable upright AP view of the chest was obtained. COMPARISON: 03/29/2019. FINDINGS: Subcutaneous emphysema along the right lateral chest wall from recent right pleural drain. Cardiac si lhouette remains moderately enlarged and slightly shifted to the left. Atherosclerosis of the aortic arch. Pulmonary vascular prominence similar prior. Small left pleural effusion suspected. Overall sta ble aeration of the left lung with extensive mid to basilar opacity. The appearance may in part be du e to cardiomegaly. Minimal right basilar opacity similar from prior. Trace right pneumothorax noted p eripherally in the right upper lung. Osteopenia. IMPRESSION: 1. Trace right pneumothorax. 2. Additional findings unchanged. Extensive left mid to lower lung consolidation/atelectasis and chalino pected effusion. Electronically signed by: Sekou Milan M.D. 03/29/2019 12:27 PM
--- NOTE | 2019-03-29 12:48 | Surgery Progress Note ---
Date of Service March 29, 2019 Assessment & Plan (1) 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: -pt. underwent RVATS with biopsy of lung nodule on 03/27/19 -frozen section showed hamartoma with final path pending -post-op pt. required BiPap n PACU but has been wean to NC -no air leak noted in chest tube and minimal drainage so tube removed: -post-pull CXR showed trace apical pneumothorax; follow-up XR 3 hours later showed stability of trace pneumothorax -CXR showed concern for consolidation in LLL: -encouraged coughing, deep breathing, use if IS and mobilization -sputum culture today shows gram (-) rods and gram (+) cocci -zosyn has been initiated (2) Atrial fibrillation: -pt. continue to have RVR -cardiology following: -he takes cardizem 240 mg in morning (was held post-op due to hypotension but has now gaudencio resumed) -cardiology to provide additional recommendations: -note reviewed and they have added lopressor 50 mg bid -he is anticoagulated with eliquis -pt. had urinary retention post-op: -flomax started and sanchez removed; he is now voiding adequate amount Subjective Pt. notes he has pain from chest tube making it difficult to take dep breaths. Discussed with RN--pt. confused at times. He has been voiding adequate amounts and tolerating oral intake. Results & Data Vital Signs (Past 12 Hours) Vital Signs Temp Pulse Pulse Pulse Resp BP BP 03/29/19 11:10 36.7 C 134 H 19 140/88 03/29/19 07:50 36.7 C 120 H 19 132/62 03/29/19 06:45 122 H 03/29/19 04:00 36.6 C 106 H 20 149/83 H 03/29/19 00:57 131 H 131/87 Pulse Ox 03/29/19 11:10 93 03/29/19 07:50 91 03/29/19 06:45 03/29/19 04:00 93 03/29/19 00:57 PG Care Time/CCT Total # of Minutes Spent Total Time Spent with Patient: Total time spent is greater than 50% in coordination of care (as documented) at patient's floor/unit and/or counseling patient:
[2019-03-29] MEDS: PIPERACILLIN/TAZOBACTAM 3.375 GM in DEXTROSE 5% 100 ML IV SCH ×2 (13:04→21:23)
[2019-03-29] MEDS ORDERED: METOPROLOL TARTRATE 1 MG/ML VIAL IV STA (14:10)
--- NOTE | 2019-03-29 14:12 | Cardiology Progress Note ---
Date of Service March 29, 2019 Assessment & Plan (1) Paroxysmal atrial fibrillation: He has a history of atrial fibrillation as well as atrial flutter, we did do a flutter ablation here in 2016 and I do not know if he has had recurrence of that. I do not have a lot of records, he does seem to follow with Dr. King in [place] for his atrial arrhythmias but I do not know the status. I believe he was last seen there in December of this year. He has had paroxysmal atrial fibrillation here, however for the most part he has been in sinus rhythm. He does take Eliquis. He is on diltiazem 240 mg daily at home, he is taking that here as well but continues to have a rapid heart rate. There is some adjustment in dosing and scheduling over the last several days, but now he should have steady-state effect on his current dose and will need more AV sheila blocking medications. I am going to try adding beta-blockade (metoprolol) to his regimen. (2) Arteriosclerotic coronary artery disease: He has coronary artery disease, I believe that is also followed in [place]. He has no symptoms suggestive of ischemia and I would not alter his treatment for it. (3) Anticoagulant long-term use: He is on Eliquis as an outpatient I believe, and we have restarted it now. He does not seem to be having difficulty with that. Given his age, weight and kidney function he would be on 5 mg twice a day. Subjective Today he seems to be feeling well, he is anxious to go home but is willing to stay. He has no awareness of his heart rate or rhythm. Physical Exam Physical Exam: Constitutional: Alert, cooperative and in no distress. HEENT: Unremarkable Neck: No jugular venous distention, carotid pulses are irregular but otherwise normal and equal bilaterally without bruits. Pulmonary: Clear to auscultation on the left, decreased breath sounds on the right. Cardiac: Irregular rhythm with no murmur, gallop or rub. Abdomen: Soft, nontender with normal bowel sounds. Extremities: No edema. Distal pulses intact. Neurologic: No focal findings. Gait is steady. Skin: No rash, ecchymoses or petechiae. Results & Data Vital Signs (Past 12 Hours) Vital Signs Temp Pulse Pulse Pulse Resp BP Pulse Ox 03/29/19 13:40 108 H 03/29/19 11:30 03/29/19 11:10 36.7 C 134 H 19 140/88 93 03/29/19 07:50 36.7 C 120 H 19 132/62 91 03/29/19 07:30 03/29/19 06:45 122 H 03/29/19 04:00 36.6 C 106 H 20 149/83 H 93 Pulse Ox 03/29/19 13:40 03/29/19 11:30 90 03/29/19 11:10 03/29/19 07:50 03/29/19 07:30 90 03/29/19 06:45 03/29/19 04:00 Laboratory Results Abnormal lab results 03/27/19 03/28/19 03/28/19 Range/Units 06:04 16:01 20:48 POC Glucose 145 H 187 H (70-99) Crossmatch See Detail 03/29/19 03/29/19 Range/Units 07:20 11:25 POC Glucose 141 H 163 H (70-99) Crossmatch Diagnostic Findings Telemetry: Atrial fibrillation since yesterday, heart rate elevated averaging around 120 bpm. PG Care Time/CCT Total # of Minutes Spent Total Time Spent with Patient: Total time spent is greater than 50% in coord ination of care (as documented) at patient's floor/unit and/or counseling patient:
[2019-03-29 14:17] LABS: Mean Platelet Volume 9.4 fL (7.4-10.4); Platelet Count 234 K/uL (130-400)
[2019-03-29 14:25] LABS: Allen Test Pos (Pos); Base Excess ABG -0.1 mEq/L (-9-1.8); HCO3 ABG 22 mmol/L (19-24); Oxygen Saturation ABG 93.4 % (90-95); PCO2 ABG 29 mmHg (35-46); PO2 ABG 64 mm/Hg (80-95)
[2019-03-29 14:35] LABS: ANC (manual) 12.18 K/uL (1.4-6.5); Basophils # (manual) 0.32 K/uL (0-0.2); Basophils % (manual) 1.7 %; Eosinophils % (manual) 20.7 %; Hematocrit (blood only) 36.9 % (42-52); Hemoglobin 12.2 g/dL (14.0-18.0); Lymphocytes % (manual) 6.9 %; Mean Corpuscular Hemoglobin 27.3 pg (25-34); Mean Corpuscular Hgb Conc 33.1 g/dL (32-36); Mean Corpuscular Volume 82.6 fL (80-100); Monocytes # (manual) 1.13 K/uL (0.11-0.59); Neutrophils # (manual) 12.18 K/uL (1.4-6.5); Neutrophils % (manual) 64.7 %; RBC Morphology Unremarkable; RDW Coefficient of Variation 17.3 % (11.5-14.5); RDW Standard Deviation 52.5 fL (36.4-46.3); Red Blood Count 4.47 M/uL (4.7-6.1); White Blood Count 18.83 K/uL (4.8-10.8)
[2019-03-29 14:40] LABS: BUN Creatinine Ratio 13.2 (10-20); Calcium 8.7 mg/dl (8.5-10.1); Creatinine Clr Calc Pharmacy 66.6 ml/min; Est GFR (African American) 91.5; Est GFR (Non-African American) 78.9; Magnesium 1.9 mg/dl (1.8-2.4); Potassium 4.2 mmol/L (3.5-5.1)
--- NOTE | 2019-03-29 15:50 | Pulmonary Consultation ---
Date of Consultation March 29, 2019 Assessment & Plan (1) Nocturnal hypoxia: Impression: 78-year-old male with moderate obstructive lung disease now status post wedge resection for a pulmonary hamartoma with increasing oxygen requirement postoperatively and some left lower lobe atelectasis. Recommendations: 1. Left lower lobe atelectasis: Would pursue aggressive pulmonary toilet at thi s point time including hypertonic saline, flutter valve, and out of bed as tolerated. If the lung fails to expand after day or 2 of conservative therapy, consideration for bronchoscopy may be appropriate. Out of bed and upright in chair with ambulation as tolerated may also be beneficial. 2. Hypoxemia: Multifactorial due to atelectasis and underlying obstructive lung disease: Continue bronchodilators and oxygen. Maintain oxygen saturation at or above 88%. 3. COPD: Patient does not appear overtly bronchospastic currently. I am unclear whether he is able to effectively use metered-dose inhalers. Transition to nebulizers may be beneficial and will be attempted. 4. Delirium: Suspect multifactorial due to medications and potential sundowning. Maintain sleep-wake cycles. Low-dose nocturnal antipsychotics may be considered if needed. 5. Leukocytosis: Unclear if this is reactive or potentially early sign of infection. His procalcitonin was normal which is somewhat reassuring and is not had fevers. It seems reasonable to continue antibiotics for now pending clinical response and follow-up of his complete blood count. There is some mild patchy airspace opacity identified in the right lower lobe. We will continue to follow with you. Feel free to contact us with questions or concerns. Discussed with the thoracic surgery PA. (2) COPD, moderate: (3) Atelectasis: History of Present Illness Attending Physician: Joseluis Lynn MD, [facility] History of Present Illness Asked by thoracic surgery to evaluate patient with abnormal chest x-ray post operatively and progressive hypoxemic respiratory failure. History is obtained from discussion with the thoracic surgery PA as well as interview the patient and family at bedside and reviewed the electronic medical record. Patient is a pleasant 78-year-old male with a history of nocturnal hypoxemia and obstructive lung disease. He was found to have a pulmonary nodule which was indeterminate and he was taken for a resection 2 days ago. The nodule was confirmed to be a hamartoma. He spent a night in the ICU and was transferred out to the floor. Today he was noted to have an increasing oxygen requirement. He has had some issues with intermittent confusion. A chest x-ray was performed and there was concern about atelectatic changes and whether not the patient may warrant fiberoptic bronchoscopy due to inability to manage pulmonary toilet. The patient is currently pleasantly confused. He does have evidence of ICU delirium. Unclear whether he may have some underlying early dementia at baseline. He states he is not having any particular breathing issues currently but does state that his breathing was bad during the night. He does cough but states he has difficulty expectorating phlegm. He has been initiated on a flutter valve. He denies any chest pain or palpitations. He is fully anticoagulated due to his history of SVT/a flutter/A. fib The patient is followed by Dr. lundberg in the outpatient setting. He has a history of moderate obstructive lung disease and is on a variety of inhalers. He does use oxygen at night. Allergies Allergy/AdvReac Type Severity Reaction Status Date / Time pollen extracts Allergy Mild CONGESTION Verified 03/27/19 06:37 Home Medications Home Medications Medication Instructions Recorded Confirmed Type aspirin [Aspir-81] 81 mg PO BID 02/02/18 03/27/19 History cyanocobalamin (vitamin B-12) 1,000 mcg PO QAM #180 tab 10/22/18 03/27/19 Rx 1,000 mcg tablet metformin 1,000 mg tablet 1,000 mg PO BID #180 tab 10/22/18 03/27/19 Rx albuterol sulfate 90 mcg/actuation 2 puffs INH Q4H PRN gm 01/16/19 03/27/19 History aerosol inhaler calcium carbonate 600 mg (1,500 2 tab PO PM 01/16/19 03/27/19 History mg)-vitamin D3 400 unit tablet albuterol sulfate 2.5 mg/3 mL 2.5 mg INH QID PRN #90 ml 01/18/19 03/27/19 Rx (0.083 %) solution for nebulization Trelegy Ellipta 1 inh INHALATION QAM 01/29/19 03/27/19 History Vitamin D3 4,000 unit PO PM 01/29/19 03/27/19 History glimepiride 4 mg PO QAM 01/29/19 03/27/19 History levothyroxine [Synthroid] 25 mcg PO QAM 01/29/19 03/27/19 History diltiazem HCl 240 mg 240 mg PO PM cap 02/02/19 03/27/19 History capsule,extended release 24 hr fluticasone propionate 50 1 - 2 sprays INTNAS DAILY PRN gm 02/02/19 03/27/19 History mcg/actuation nasal spray,suspension montelukast 10 mg tablet 10 mg PO PM tab 02/02/19 03/27/19 History atorvastatin [Lipitor] 40 mg PO PM 02/11/19 03/27/19 History lisinopril 20 mg PO PM 02/11/19 03/27/19 History levetiracetam 500 mg tablet 1,000 mg PO BID #120 tab 02/15/19 03/27/19 Rx sertraline 100 mg tablet 100 mg PO QAM #90 tab 03/05/19 03/27/19 Rx apixaban 5 mg tablet See Rx Instructions .ROUTE 03/21/19 03/27/19 Rx .COMPLEX #180 tablet Patient History Medical History (Updated 03/29/19 @ 15:52 by Rober Merchant MD) Abdominal aortic aneurysm (AAA), 30-34 mm diameter (Chronic) Anxiety Arteriosclerotic coronary artery disease (Chronic) Asthma (Chronic) Atrial flutter DX [address] CUELLAR IN [place] Benign prostatic hyperplasia with urinary obstruction (Chronic) CAD (coronary artery disease) Chronic anticoagulation (Chronic) COPD, moderate (Chronic) Depression (Chronic) Dyslipidemia (Chronic) Hypertension (Chronic) Hypothyroidism (acquired) (Chronic) Mild cognitive impairment (Chronic) On home oxygen therapy AT NIGHT Osteoarthritis Osteoporosis (Chronic) Paroxysmal atrial fibrillation (Chronic) DX [address] CUELLAR IN [place] Seizure (Acute) 01/29/19 - X2 ON THAT DAY AND WAS ADMITTED AND STARTED ON [place] AND NO SEIZURE SINCE TIA (transient ischemic attack) 2017 X 1 AND NONE SINCE Tremor HANDS Type 2 diabetes mellitus (Chronic) Surgical History H/O 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 Hx of cardiac cath 2017 -- HEART CATH WITH STENT 6 TOTAL [facility] WITH DR CUELLAR LAST SEEN 12/20/2018 Family History Other COPD (chronic obstructive pulmonary disease) Depression Family history non-contributory Social History Preferred Language: [place] Communication Ability: Effective Visual Impairment: No Limitations Hearing Ability: Use of Hearing Aid Multigraph Operator Required: No Beliefs That Will Affect Care: None marital status: Current Living Situation: Spouse current occupational status: retired 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, 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[employer] ([place]) Other Information That Helps Us Care for You: No Feels Safe at Home: Yes Safety Concerns: Feels Safe At This Time Smoking Status: Former smoker Tobacco Type: smokeless tobacco ; Cigarettes Per Day: 20-40 ; Do You Dip or Chew Tobacco: Yes (1 CAN/ ADIVISED) ; Smoking End Date: 1973 ; Number of Years Since Quit: 34 ; Second Hand Exposure: No ; Toba tobacco educator Cessation Education Requested by Patient: No Hx Alcohol Use: No Hx Substance Use: No Childhood Exposure to Second-Hand Smoke: Yes caffeine: No Dental Care, Regularly: No Physical Activity Frequency: Does not Exercise Seatbelt Use: always Review of Systems Review of Systems: Unobtainable due to cognitive status Physical Exam Constitutional: WD/WN, vitals as above ENMT: external ear and nose normal, oropharynx normal Neck: trachea midline, no thyromegaly Respiratory: Mildly reduced breath sounds bilaterally. No wheezing. Few basilar crackles Cardiovascular: RRR, no murmur, no edema Heart Sounds: no murmur Gastrointestinal (Abdomen): normal bowel sounds, soft, nontender, no hepatospl enomegaly Musculoskeletal: no cyanosis or clubbing, extremities motor strength 5/5 Psychiatric: Pleasantly confused. Oriented to person and intermittently to place. Results & Data Vital Signs (Past 12 Hours) Vital Signs Temp Pulse Pulse Pulse Resp BP BP 03/29/19 15:08 36.4 C L 89 19 130/78 03/29/19 14:45 99 H 24 03/29/19 14:17 100 H 136/72 03/29/19 13:40 108 H 03/29/19 11:30 03/29/19 11:10 36.7 C 134 H 19 140/88 03/29/19 07:50 36.7 C 120 H 19 132/62 03/29/19 07:30 03/29/19 06:45 122 H 03/29/19 04:00 36.6 C 106 H 20 149/83 H Pulse Ox Pulse Ox 03/29/19 15:08 93 03/29/19 14:45 90 03/29/19 14:17 03/29/19 13:40 03/29/19 11:30 90 03/29/19 11:10 93 03/29/19 07:50 91 03/29/19 07:30 90 03/29/19 06:45 03/29/19 04:00 93 Laboratory Results 03/29/19 14:04 03/29/19 14:04 03/29/19 14:04 ABG pH 7.50 H ABG pCO2 29 L ABG pO2 64 L ABG HCO3 22 ABG O2 Saturation 93.4 ABG Base Excess -0.1 Microbiology 03/29/19 11:01 Sputum, Expectorated Gram Stain - Final Diagnostic Findings Chest x-ray from today was independently reviewed and compared to prior films from 03/28. The previously noted right-sided thoracostomy tube has been removed. No evidence of pneumothorax. There are a few nodular densities at the right lung base which were not present on previous films. Left lower lobe atelectasis is noted which is not new compared to prior films. PG Care Time/CCT Total # of Minutes Spent Total Time Spent with Patient: Total time spent is greater than 50% in coordination of care (as documented) at patient's floor/unit and/or counseling patient:
[2019-03-29] MEDS: TIOTROPIUM BROMIDE 5 PUFF/90 MCG INH INH SCH (17:20)
[2019-03-29] MEDS: LEVALBUTEROL HCL 0.63 MG/3 ML NEB NEB SCH (19:11)
[2019-03-29] MEDS: ACETYLCYSTEINE 20% INHAL SOLN ***DISPENSED BY RESP. INH SCH (19:11)
[2019-03-29] MEDS: BUDESONIDE 0.5 MG/2 ML VIAL (PULMICORT) NEB SCH (19:12)
[2019-03-29] MEDS: FORMOTEROL 20 MCG/2 ML VIAL NEB SCH (19:12)
[2019-03-29] MEDS: SODIUM CHLOR 7% 4 ML NEB NEB SCH (19:13)
[2019-03-29] MEDS: ATORVASTATIN 40 MG TAB PO SCH (20:25)
[2019-03-29] MEDS: METOPROLOL TARTRATE 50 MG TAB PO SCH (20:25)
[2019-03-29] MEDS: MONTELUKAST SODIUM 10 MG TABLET PO SCH (20:25)
[2019-03-29] MEDS ORDERED: ACETYLCYSTEINE 20% INHAL SOLN ***DISPENSED BY RESP. INH SCH (21:00)
[2019-03-30] MEDS: ACETAMINOPHEN 500 MG TAB PO SCH ×3 (05:08→21:58)
[2019-03-30] MEDS: LEVOTHYROXINE SODIUM 25 MCG TABLET PO SCH (05:08)
[2019-03-30] MEDS: PIPERACILLIN/TAZOBACTAM 3.375 GM in DEXTROSE 5% 100 ML IV SCH ×3 (05:10→21:58)
[2019-03-30] MEDS: ALBUTEROL HFA 8 GM INHALER INH PRN (05:15)
[2019-03-30 06:23] LABS: Mean Platelet Volume 9.1 fL (7.4-10.4); Platelet Count 258 K/uL (130-400)
[2019-03-30 06:36] LABS: Hematocrit (blood only) 39.4 % (42-52); Hemoglobin 13.1 g/dL (14.0-18.0); Mean Corpuscular Hemoglobin 27.4 pg (25-34); Mean Corpuscular Hgb Conc 33.2 g/dL (32-36); Mean Corpuscular Volume 82.4 fL (80-100); RDW Coefficient of Variation 17.1 % (11.5-14.5); RDW Standard Deviation 51.9 fL (36.4-46.3); Red Blood Count 4.78 M/uL (4.7-6.1)
[2019-03-30 06:39] LABS: BUN Creatinine Ratio 14.5 (10-20); Calcium 9.1 mg/dl (8.5-10.1); Creatinine Clr Calc Pharmacy 69.3 ml/min; Est GFR (African American) 96.5; Est GFR (Non-African American) 83.2; Potassium 4.4 mmol/L (3.5-5.1)
[2019-03-30 06:48] LABS: ALC (manual) 1.41 K/uL (1.2-3.4); ANC (manual) 10.97 K/uL (1.4-6.5); Eosinophils # (manual) 5.18 K/uL (0-0.5); Lymphocytes # (manual) 1.41 K/uL (1.2-3.4); Lymphocytes % (manual) 7.6 %; Monocytes # (manual) 0.94 K/uL (0.11-0.59); Monocytes % (manual) 5.1 %; Neutrophils # (manual) 10.97 K/uL (1.4-6.5); Neutrophils % (manual) 59.3 %
[2019-03-30] MEDS: SODIUM CHLOR 7% 4 ML NEB NEB SCH ×2 (07:06→20:45)
[2019-03-30] MEDS: BUDESONIDE 0.5 MG/2 ML VIAL (PULMICORT) NEB SCH (07:06)
[2019-03-30] MEDS: FORMOTEROL 20 MCG/2 ML VIAL NEB SCH ×2 (07:06→20:45)
[2019-03-30] MEDS: INSULIN ASPART 100 UNITS/ML 3 ML PEN SC SCH ×4 (08:15→21:05)
[2019-03-30] MEDS: METOPROLOL TARTRATE 50 MG TAB PO SCH ×2 (08:16→20:28)
[2019-03-30] MEDS: TAMSULOSIN HCL 0.4 MG CAP PO SCH ×2 (08:16→20:27)
[2019-03-30] MEDS: DOCUSATE SODIUM 100 MG CAP PO SCH ×2 (08:16→20:32)
[2019-03-30] MEDS: dilTIAZem HCL 240 MG CAPCR PO SCH (08:16)
[2019-03-30] MEDS: APIXABAN 5 MG TABLET PO SCH ×2 (08:16→20:26)
[2019-03-30] MEDS: MAGNESIUM OXIDE 400 MG TAB PO SCH (08:16)
[2019-03-30] MEDS: ASPIRIN 81 MG ECTAB PO SCH ×2 (08:16→20:26)
[2019-03-30] MEDS: levETIRAcetam 500 MG TAB PO SCH ×2 (08:16→20:27)
[2019-03-30] MEDS: TIOTROPIUM BROMIDE 5 PUFF/90 MCG INH INH SCH (08:17)
[2019-03-30] MEDS: guaiFENesin 600 MG TABCR PO SCH ×2 (08:17→20:28)
[2019-03-30] MEDS: SERTRALINE HCL 100 MG TABLET PO SCH (08:17)
--- NOTE | 2019-03-30 08:46 | Surgery Progress Note ---
Date of Service March 30, 2019 Assessment & Plan (1) 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: -pt. underwent RVATS with biopsy of lung nodule on 03/27/19 -frozen section showed hamartoma with final path confirming this diagnosis; lymph nodes did not reveal malignancy -post-op pt. required BiPap in PACU but has been wean to [place] -chest tube removed on 03/29/19 -CXR again showed concern for consolidation/atelectasis in LLL: -encouraged coughing, deep breathing, use if IS and mobilization -sputum culture on 03/29/19 shows gram (-) rods and gram (+) cocci -procalicitonin on 03/29/19 noted to be normal -leukocytosis noted again on today's lab -ABG yesterday did not reveal hypercarbia -zosyn has been initiated (day #2) -discussed with respiratory therapy--flutter valve ordered; mucomyst nebs in place -pulmonary consult noted: -aggressive pulmonary toilet will be pursued and if not successful may consider bronchoscopy -during my visit today; the pt. was noted to have a strong cough and expectorate a fair amount of mucous (2) Atrial fibrillation: -pt. continue to have RVR at times -cardiology following: -he takes cardizem 240 mg in morning (was held post-op due to hypotension but has now gaudencio resumed) -cardiology has added lopressor 50 mg bid -he is anticoagulated with eliquis -pt. had urinary retention post-op: -flomax started and sanchez removed; he is now voiding adequate amount Subjective Pt. notes his breathing feels improved. He denies pain. No N/V. He states he is voiding without difficulty. he has been ambulating in hallway. Discussed with RN--pt. remain confused but has improved since yesterday. Intermittent run of rapid a-fib noted. Physical Exam Constitutional: no acute distress Neck: trachea midline Respiratory: normal respiratory effort; no respiratory distress and no labored breathing BS are noted to be decreased on left side. Cardiovascular: Rate/Rhythm: + irregularly irregular Gastrointestinal (Abdomen): Percussion/Palpation: abdomen soft Musculoskeletal: no edema or calf tenderness Neurologic: -pt. will follow commands; no focal deficits noted and he moves all extremities Psychiatric: -pt. alert to person, confused to place and time; he know he had a lung resection Results & Data Vital Signs (Past 12 Hours) Vital Signs Temp Pulse Pulse Resp BP Pulse Ox 03/30/19 07:07 89 20 95 03/30/19 07:00 36.3 C L 96 H 20 159/88 H 96 03/30/19 04:20 36.6 C 103 H 20 141/93 H 94 03/29/19 23:27 37.2 C 84 18 132/74 93 03/29/19 22:23 77 18 93 PG Care Time/CCT Total # of Minutes Spent Total Time Spent with Patient: Total time spent is greater than 50% in coordination of care (as documented) at patient's floor/unit and/or counseling patient:
--- NOTE | 2019-03-30 10:25 | XRay Report ---
SINGLE VIEW CHEST CLINICAL HISTORY: Hypoxia. Status post right lower lobe wedge resection. FINDINGS: An AP, portable, upright chest radiograph is compared to chest x-ray dated 03/29/2019 and c orrelated with chest CT dated 02/11/2019. The examination is degraded by portable technique and patien t rotation. The heart is enlarged noting atherosclerotic calcification of the thoracic aorta. The pul monary vasculature is noncongested. Emphysema and chronic interstitial thickening are similar to prev ious. There is postoperative change and volume loss in the right lung consistent with the reported hi story of right lower lobe resection. A trace residual right apical pneumothorax persists. Scarring/at electasis is noted at the right lung base. There is also trace pleural fluid at the right lung base. There is volume loss in the left lung with elevation of the diaphragm and airspace consolidation thro ughout the left lung. The skeletal structures are osteopenic. The bony thorax is grossly intact. Subc utaneous emphysema is seen along the right chest wall. IMPRESSION: 1. Cardiomegaly, emphysema, and postoperative change from right lower lobe resection. 2. A trace right apical pneumothorax persists. 3. There is volume loss in the left lung with airspace consolidation/atelectasis is again seen throug hout the left mid to lower lung. This appears to have increased from yesterday. Electronically signed by: Eze Chairez M.D. 03/30/2019 10:24 AM
[2019-03-30] MEDS: LEVALBUTEROL HCL 0.63 MG/3 ML NEB NEB SCH (11:12)
[2019-03-30] MEDS: ACETYLCYSTEINE 20% INHAL SOLN ***DISPENSED BY RESP. INH SCH (11:12)
[2019-03-30 13:33] LABS: Creatinine Clr Calc Pharmacy 62.2 ml/min; Est GFR (African American) 86.9
[2019-03-30] MEDS ORDERED: LEVALBUTEROL HCL 0.63 MG/3 ML NEB NEB PRN (17:48)
--- NOTE | 2019-03-30 18:15 | Pulmonology Progress Note ---
Date of Service March 30, 2019 Patient is a pleasant 78-year-old male with a history of nocturnal hypoxemia and obstructive lung disease. He was found to have a pulmonary nodule which was indeterminate and he was taken for a resection 2 days ago. The nodule was confirmed to be a hamartoma. He spent a night in the ICU and was transferred out to the floor. Today he was noted to have an increasing oxygen requirement. He has had some issues with intermittent confusion. A chest x-ray was performed and there was concern about atelectatic changes and whether not the patient may warrant fiberoptic bronchoscopy due to inability to manage pulmonary toilet. The patient is currently pleasantly confused. He does have evidence of ICU delirium. Unclear whether he may have some underlying early dementia at baseline. He states he is not having any particular breathing issues currently but does state that his breathing was bad during the night. He does cough but states he has difficulty expectorating phlegm. He has been initiated on a flutter valve. He denies any chest pain or palpitations. He is fully anticoagulated due to his history of SVT/a flutter/A. fib The patient is followed by Dr. Eason in the outpatient setting. He has a history of moderate obstructive lung disease and is on a variety of inhalers. He does use oxygen at night. Patient is receiving vigorous pulmonary toilet for airway clearance including hypertonic saline twice daily, Pulmicort 0.5 mg twice daily, Perforomist twice daily Mucomyst 20% 3 cc and nebulizer treatments with Xopenex 0.63 mg. Received a call from the respiratory therapist who asked whether we could pare down the treatments given the extensive nature of all these medications and frequency of administration. He is producing some phlegm. Assessment & Plan (1) Atelectasis: Left lower lobe atelectasis: Would pursue aggressive pulmonary toilet at this point time including hypertonic saline, flutter valve, and out of bed as tolerated. If the lung fails to expand after day or 2 of conservative therapy, consideration for bronchoscopy may be appropriate. Out of bed and upright in chair with ambulation as tolerated may also be beneficial. Today's chest x-ray continues to show evidence of cardiomegaly and is emphysema and postoperative changes from the previous resection but there is continued volume loss involving the left lung with airspace consolidation and atelectasis. I have simplified his airway clearance maneuvers schedule to better tolerate them. I spoke with David Hansen/ANA MARIA for thoracic surgery and patient will be made n.p.o. Monday night for possible bronchoscopy Monday if significant improvement is not seen. (2) Atrial fibrillation: (3) 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: (4) Anticoagulant long-term use: (5) History of lung biopsy: (6) Nocturnal hypoxia: (7) PNA (pneumonia): Review of Systems Constitutional: no problem reported Eyes: no problem reported Ear, Nose, Mouth, Throat: no problem reported Respiratory: no problem reported Cardiovascular: no problem reported Gastrointestinal: no problem reported Genitourinary: no problem reported Musculoskeletal: no problem reported Integumentary: no problem reported Neurologic: no problem reported Psychiatric: no problem reported Endocrine: no problem reported Hematologic / Lymphatic: no problem reported Allergy / Immunological: no problem reported Physical Exam Constitutional: well developed and well nourished; no acute distress Eyes: PERRL, conjunctivae normal, anicteric sclerae ENMT: external ear and nose normal, oropharynx normal Neck: trachea midline, no thyromegaly Respiratory: normal respiratory effort Auscultation: + diminished lung sounds (Diminished breath sounds left posterior lung field with scattered rhonchi) Cardiovascular: RRR, no murmur, no edema Palpation: normal PMI; no thrill Gastrointestinal (Abdomen): normal bowel sounds, soft, nontender, no hepatosplenomegaly Musculoskeletal: no cyanosis or clubbing, extremities motor strength 5/5 Gait: normal gait Skin: no rashes, warm and dry Neurologic: PERRL, EOMI, accommodation nl, no face palsy, no dysarthria Psychiatric: A+Ox3, euthymic affect Lymphatic: no cervical or axillary lymphadenopathy Results & Data Vital Signs (Past 12 Hours) Vital Signs Temp Pulse Pulse Resp BP Pulse Ox Pulse Ox 03/30/19 15:43 123 H 03/30/19 15:36 36.2 C L 83 18 112/73 94 03/30/19 12:25 36.3 C L 77 77 20 176/77 H 97 03/30/19 11:49 36.3 C L 100 H 20 136/89 94 03/30/19 11:27 94 03/30/19 11:13 98 H 20 97 03/30/19 08:00 120 H 03/30/19 07:07 89 20 95 03/30/19 07:00 36.3 C L 96 H 20 159/88 H 96 Pulse Ox 03/30/19 15:43 92 03/30/19 15:36 03/30/19 12:25 03/30/19 11:49 03/30/19 11:27 03/30/19 11:13 03/30/19 08:00 94 03/30/19 07:07 03/30/19 07:00 PG Care Time/CCT Total # of Minutes Spent Total Time Spent with Patient: Total time spent is greater than 50% in coordination of care (as documented) at patient's floor/unit and/or counseling patient:
[2019-03-30] MEDS: ATORVASTATIN 40 MG TAB PO SCH (20:27)
[2019-03-30] MEDS: MONTELUKAST SODIUM 10 MG TABLET PO SCH (20:28)
[2019-03-31] MEDS: ACETAMINOPHEN 500 MG TAB PO SCH ×3 (06:09→20:48)
[2019-03-31] MEDS: PIPERACILLIN/TAZOBACTAM 3.375 GM in DEXTROSE 5% 100 ML IV SCH ×3 (06:09→21:57)
[2019-03-31] MEDS: LEVOTHYROXINE SODIUM 25 MCG TABLET PO SCH (06:10)
[2019-03-31 06:23] LABS: Mean Platelet Volume 9.7 fL (7.4-10.4); Platelet Count 279 K/uL (130-400)
[2019-03-31 06:50] LABS: ALC (manual) 0.89 K/uL (1.2-3.4); ANC (manual) 9.35 K/uL (1.4-6.5); Basophils # (manual) 0.26 K/uL (0-0.2); Basophils % (manual) 1.6 %; Eosinophils % (manual) 32.6 %; Hematocrit (blood only) 42.7 % (42-52); Lymphocytes # (manual) 0.89 K/uL (1.2-3.4); Lymphocytes % (manual) 5.4 %; Mean Corpuscular Hemoglobin 27.3 pg (25-34); Mean Corpuscular Hgb Conc 32.8 g/dL (32-36); Mean Corpuscular Volume 83.2 fL (80-100); Monocytes # (manual) 0.51 K/uL (0.11-0.59); Monocytes % (manual) 3.1 %; Myelocytes # (manual) 0.13 K/uL (0-0); Myelocytes % (manual) 0.8 %; Neutrophils # (manual) 9.35 K/uL (1.4-6.5); Neutrophils % (manual) 56.5 %; RDW Coefficient of Variation 17.2 % (11.5-14.5); RDW Standard Deviation 52.4 fL (36.4-46.3); Red Blood Count 5.13 M/uL (4.7-6.1); White Blood Count 16.55 K/uL (4.8-10.8)
[2019-03-31 06:55] LABS: Creatinine Clr Calc Pharmacy 59.3 ml/min; Est GFR (African American) 82.8; Est GFR (Non-African American) 71.4
--- NOTE | 2019-03-31 07:08 | Surgery Progress Note ---
Date of Service March 31, 2019 Assessment & Plan (1) 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: -pt. underwent RVATS with biopsy of lung nodule on 03/27/19 -frozen section showed hamartoma with final path confirming this diagnosis; lymph nodes did not reveal malignancy -post-op pt. required BiPap in PACU but has been wean to [place] -chest tube removed on 03/29/19 -CXR today continues to show concern for consolidation/atelectasis in LLL, but has some improvement of aeration on left side: -continue to encourage coughing, deep breathing, use if IS and mobilization -sputum culture on 03/29/19 shows gram (-) rods and gram (+) cocci with final culture pending -procalicitonin on 03/29/19 noted to be normal -leukocytosis noted again on today's lab but has improved -ABG 03/29/19 did not reveal hypercarbia -zosyn has been initiated (day #3) -discussed with respiratory therapy--flutter valve ordered; mucomyst nebs in place -pulmonary consult noted: -aggressive pulmonary toilet will be pursued and if not successful may consider bronchoscopy -will make pt. npo after midnight; if CXR not significatnly improved will perofrm FOB -during my visit today the pt. was again noted to have a strong cough and expectorate a fair amount of mucous (2) Atrial fibrillation: -pt. continues to have runs of afib with RVR at times -cardiology following: -he takes cardizem 240 mg in morning (was held post-op due to hypotension but has now gaudencio resumed) -cardiology has added lopressor 50 mg bid -he is anticoagulated with eliquis -pt. had urinary retention post-op: -flomax started and sanchez removed; he is now voiding adequate amount Subjective Pt. notes his breathing continues to improved. No CP. He notes his apatite has improved. Discussed with RN--pt. continues to have episodes of tachycardia. Pt. has been ambulating in hallway. Physical Exam Constitutional: no acute distress Neck: trachea midline Respiratory: normal respiratory effort; no respiratory distress and no labored breathing BS are decreased at bases and on left side, however air movement on left has improved on seral exams Gastrointestinal (Abdomen): Percussion/Palpation: abdomen soft; abdomen nontender Musculoskeletal: no calf tenderness Neurologic: -pt. follows commands, moves all extremities without deficits; today he is alert to time place and person Results & Data Vital Signs (Past 12 Hours) Vital Signs Temp Pulse Pulse Pulse Resp BP BP 03/31/19 04:00 03/31/19 03:12 36.5 C 98 H 20 128/91 03/31/19 00:00 03/30/19 23:12 37.1 C 87 18 113/73 03/30/19 22:50 75 16 03/30/19 20:45 89 18 03/30/19 20:00 03/30/19 19:33 36.2 C L 106 H 18 142/93 H Pulse Ox Pulse Ox 03/31/19 04:00 98 03/31/19 03:12 95 03/31/19 00:00 99 03/30/19 23:12 94 03/30/19 22:50 95 03/30/19 20:45 98 03/30/19 20:00 98 03/30/19 19:33 94 PG Care Time/CCT Total # of Minutes Spent Total Time Spent with Patient: Total time spent is greater than 50% in coord ination of care (as documented) at patient's floor/unit and/or counseling patient:
[2019-03-31] MEDS: FORMOTEROL 20 MCG/2 ML VIAL NEB SCH ×2 (07:18→19:57)
[2019-03-31] MEDS: SODIUM CHLOR 7% 4 ML NEB NEB SCH ×2 (07:18→19:57)
--- NOTE | 2019-03-31 07:18 | XRay Report ---
XR chest 1V portable CLINICAL HISTORY: hypoxia dyspnea COMPARISON STUDY: 03/30/2019 FINDINGS: Unchanging infiltrative/consolidative change of the left mid and lower lung. Slight improve ment in aeration left base. Right lung remains generally clear. There are stable postoperative changes right hemithorax. No current evidence for significant pneumothorax. IMPRESSION: 1. Slight improvement in aeration left lung base. 2. Study is otherwise similar as compared to the prior study. The above report was generated using voice recognition software. It may contain grammatical, syntax or spelling errors. Electronically signed by: Kvng Cuellar M.D. 03/31/2019 7:17 AM
[2019-03-31] MEDS: INSULIN ASPART 100 UNITS/ML 3 ML PEN SC SCH ×4 (08:10→20:43)
[2019-03-31] MEDS: TIOTROPIUM BROMIDE 5 PUFF/90 MCG INH INH SCH (08:11)
[2019-03-31] MEDS: dilTIAZem HCL 240 MG CAPCR PO SCH (08:11)
[2019-03-31] MEDS: MAGNESIUM OXIDE 400 MG TAB PO SCH (08:11)
[2019-03-31] MEDS: levETIRAcetam 500 MG TAB PO SCH ×2 (08:11→20:39)
[2019-03-31] MEDS: SERTRALINE HCL 100 MG TABLET PO SCH (08:11)
[2019-03-31] MEDS: TAMSULOSIN HCL 0.4 MG CAP PO SCH (08:11)
[2019-03-31] MEDS: METOPROLOL TARTRATE 50 MG TAB PO SCH ×2 (08:12→20:40)
[2019-03-31] MEDS: APIXABAN 5 MG TABLET PO SCH (08:12)
[2019-03-31] MEDS: DOCUSATE SODIUM 100 MG CAP PO SCH ×2 (08:12→20:41)
[2019-03-31] MEDS: guaiFENesin 600 MG TABCR PO SCH ×2 (08:12→20:40)
[2019-03-31] MEDS: ASPIRIN 81 MG ECTAB PO SCH ×2 (08:12→20:38)
[2019-03-31] MEDS ORDERED: DIGOXIN 0.125 MG TAB PO ONE (10:16)
--- NOTE | 2019-03-31 12:26 | Cardiology Progress Note ---
Date of Service March 31, 2019 Assessment & Plan (1) Paroxysmal atrial fibrillation: The patient continues to demonstrate a rapid ventricular response to his atrial fibrillation despite diltiazem CD at 240 mg daily, and metoprolol tartrate 50 mg b.i.d.. Suggest digoxin 0.25 mg IV now, and then repeat in 4 hours. If that is effective, would consider starting digoxin 0.[address] Cedillo to assume care tomorrow. (2) Arteriosclerotic coronary artery disease: Continue medical management. (3) Anticoagulant long-term use: Tolerating Eliquis without difficulty. Subjective The patient is resting comfortably in the bedside chair without complaints of chest pain or dyspnea. Denies palpitations despite his rapid ventricular response atrial fibrillation. Physical Exam Physical Exam: In general is well-developed well-nourished white male no acute distress. HEENT exam is negative. Neck is supple with full carotid upstrokes. No obvious bruits. Jugular is pressure is flat at 90 degrees. No thyromegaly. Cardiovascular exam was irregular regular rhythm with distant heart sounds. No obvious murmurs. Lungs note decreased breath sounds on the right. Clear on the left. No rales. Abdomen is soft without bruits. Extremities reveal intact radial artery pulses bilaterally. There is no peripheral edema. Results & Data Vital Signs (Past 12 Hours) Vital Signs Temp Pulse Pulse Pulse Resp BP Pulse Ox 03/31/19 11:36 36.3 C L 111 H 22 114/72 97 03/31/19 10:43 109 H 03/31/19 08:00 03/31/19 07:19 84 16 97 03/31/19 07:14 36.6 C 99 H 19 122/84 96 03/31/19 04:00 03/31/19 03:12 36.5 C 98 H 20 128/91 95 Pulse Ox 03/31/19 11:36 03/31/19 10:43 03/31/19 08:00 94 03/31/19 07:19 03/31/19 07:14 03/31/19 04:00 98 03/31/19 03:12 Diagnostic Findings hall monitor notes atrial fibrillation and a rapid ventricular response. PG Care Time/CCT Total # of Minutes Spent Total Time Spent with Patient: Total time spent is greater than 50% in coordination of care (as documented) at patient's floor/unit and/or counseling patient:
[2019-03-31] MEDS ORDERED: DIGOXIN 0.25 MG TAB PO ONE (14:00)
[2019-03-31] MEDS ORDERED: DIGOXIN 250 MCG in SYRINGE 9 ML IV ONE (14:00)
--- NOTE | 2019-03-31 14:39 | Pulmonology Progress Note ---
Date of Service Chest x-ray chest x-ray today perhaps show some improvement in their area chest x-ray today March 31, 2019 Patient is a pleasant 78-year-old male with a history of nocturnal hypoxemia and obstructive lung disease. He was found to have a pulmonary nodule which was indeterminate and he was taken for a resection 2 days ago. The nodule was conf irmed to be a hamartoma. He spent a night in the ICU and was transferred out to the floor. Today he was noted to have an increasing oxygen requirement. He has had some issues with intermittent confusion. A chest x-ray was performed and there was concern about atelectatic changes and whether not the patient may warrant fiberoptic bronchoscopy due to inability to manage pulmonary toilet. The patient is currently pleasantly confused. He does have evidence of ICU delirium. Unclear whether he may have some underlying early dementia at baseline. He states he is not having any particular breathing issues currently but does state that his breathing was bad during the night. He does cough but states he has difficulty expectorating phlegm. He has been initiated on a flutter valve. He denies any chest pain or palpitations. He is fully anticoagulated due to his history of SVT/a flutter/A. fib The patient is followed by Dr. Eason in the outpatient setting. He has a history of moderate obstructive lung disease and is on a variety of inhalers. He does use oxygen at night. Patient is receiving vigorous pulmonary toilet for airway clearance including hypertonic saline twice daily, Pulmicort 0.5 mg twice daily, Perforomist twice daily Mucomyst 20% 3 cc and nebulizer treatments with Xopenex 0.63 mg. Received a call from the respiratory therapist who asked whether we could pare down the treatments given the extensive nature of all these medications and frequency of administration. He is producing some phlegm. 1) Atelectasis: Left lower lobe atelectasis: Would pursue aggressive pulmonary toilet at this point time including hypertonic saline, flutter valve, and out of bed as tolerated. If the lung fails to expand after day or 2 of conservative therapy, consideration for bronchoscopy may be appropriate. Out of bed and upright in chair with ambulation as tolerated may also be beneficial. Today's chest x-ray continues to show evidence of cardiomegaly and is emphysema and postoperative changes from the previous resection but there is continued volume loss involving the left lung with airspace consolidation and atelectasis. I have simplified his airway clearance maneuvers schedule to better tolerate them. I spoke with David Hansen/ANA [facility]IA for thoracic surgery and patient will be made n.p.o. Monday night for possible bronchoscopy Monday morning if significant improvement is not seen. Patient feels better today. Not expectorating much phlegm. No hemoptysis.. Pleuritic pain. Dr. Beckett saw patient earlier today as he continues to demonstrate a rapid ventricular response to his atrial fibrillation. He has been placed on Cardizem, metoprolol and given digoxin today patient's had questions about digoxin apparently this had been discontinued as an outpatient by his substance abuse services director in [place].. Assessment & Plan (1) Atelectasis: Patient has been administered vigorous pulmonary toilet for airway clearance and perhaps is slightly improved but still with markedly decreased breath sounds and tubular breath sounds as well at the left lung base and mid posterior lung field. Will obtain CT scan of the chest and consider patient a candidate for bronchoscopy with BAL. We will need to hold Eliquis and make n.p.o. 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 Leukocytosis persist. Review of Systems Constitutional: no problem reported Eyes: no problem reported Ear, Nose, Mouth, Throat: no problem reported Respiratory: no problem reported Cardiovascular: no problem reported Gastrointestinal: no problem reported Genitourinary: no problem reported Musculoskeletal: no problem reported Integumentary: no problem reported Neurologic: no problem reported Psychiatric: no problem reported Endocrine: no problem reported Hematologic / Lymphatic: no problem reported Allergy / Immunological: no problem reported Physical Exam Constitutional: well developed and well nourished; no acute distress Eyes: PERRL, conjunctivae normal, anicteric sclerae ENMT: external ear and nose normal, oropharynx normal Neck: trachea midline, no thyromegaly Respiratory: normal respiratory effort Auscultation: + bronchial breath sounds (Tubular breath sounds two thirds of the way up the left posterior lung) Cardiovascular: RRR, no murmur, no edema Rate/Rhythm: + irregularly irregular (Rapid ventricular response s gallop) Palpation: normal PMI; no thrill Gastrointestinal (Abdomen): normal bowel sounds, soft, nontender, no hepatosplenomegaly Musculoskeletal: no cyanosis or clubbing, extremities motor strength 5/5 Gait: normal gait Skin: no rashes, warm and dry Neurologic: PERRL, EOMI, accommodation nl, no face palsy, no dysarthria Psychiatric: A+Ox3, euthymic affect Lymphatic: no cervical or axillary lymphadenopathy Results & Data Vital Signs (Past 12 Hours) Vital Signs Temp Pulse Pulse Pulse Resp BP Pulse Ox 03/31/19 12:00 67 20 03/31/19 11:36 36.3 C L 111 H 22 114/72 97 03/31/19 10:43 109 H 03/31/19 08:00 03/31/19 07:19 84 16 97 03/31/19 07:14 36.6 C 99 H 19 122/84 96 03/31/19 04:00 03/31/19 03:12 36.5 C 98 H 20 128/91 95 Pulse Ox 03/31/19 12:00 95 03/31/19 11:36 03/31/19 10:43 03/31/19 08:00 94 03/31/19 07:19 03/31/19 07:14 03/31/19 04:00 98 03/31/19 03:12 PG Care Time/CCT Total # of Minutes Spent Total Time Spent with Patient: Total time spent is greater than 50% in coordination of care (as documented) at patient's floor/unit and/or counseling patient:
[2019-03-31] MEDS: DIGOXIN 0.125 MG TAB PO SCH (17:21)
[2019-03-31] MEDS: ATORVASTATIN 40 MG TAB PO SCH (20:40)
[2019-03-31] MEDS: MONTELUKAST SODIUM 10 MG TABLET PO SCH (20:41)
--- NOTE | 2019-03-31 21:52 | CT Scan Report ---
CT chest wo con CT DOSE: 385.99 mGy.cm HISTORY: L lung atelectasis TECHNIQUE: Multiaxial CT images of the chest were performed without contrast. A dose lowering techni que was utilized adhering to the principles of ALARA. COMPARISON: CT 02/11/2019. Chest series 03/31/2019 progressive left basilar atelectatic change compare d to the prior study. It is primarily is left upper lobe distribution. There are patchy parenchymal infiltrative changes in the left lower lobe. There is a small left pleur al effusion. There is trace amount pleural fluid right lung base. A small amount of residual postprocedural subcut aneous emphysema over the right mid and inferior chest wall. This is considered unremarkable. Limited evaluation of the upper abdomen is unremarkable. FINDINGS: 1. Findings of progressive atelectasis of the lingula and components of the left upper lobe. 2. Patchy scattered parenchymal infiltrates throughout the left hemithorax associated with a small le ft effusion. This is somewhat progressive compared to the prior study. 3. Small right effusion with mild scattered parenchymal infiltrative changes. 4. Unremarkable postprocedural changes to the right hemithorax. IMPRESSION: No acute process. The above report was generated using voice recognition software. It may contain grammatical, syntax or spelling errors. Electronically signed by: Kvng Cuellar M.D. 03/31/2019 9:51 PM
[2019-04-01] MEDS: LEVOTHYROXINE SODIUM 25 MCG TABLET PO SCH (05:27)
[2019-04-01] MEDS: ACETAMINOPHEN 500 MG TAB PO SCH ×3 (05:27→21:23)
[2019-04-01] MEDS: PIPERACILLIN/TAZOBACTAM 3.375 GM in DEXTROSE 5% 100 ML IV SCH ×3 (05:28→21:23)
[2019-04-01 05:57] LABS: Mean Platelet Volume 9.3 fL (7.4-10.4); Platelet Count 261 K/uL (130-400)
[2019-04-01 06:06] LABS: Hematocrit (blood only) 38.6 % (42-52); Mean Corpuscular Hemoglobin 28.1 pg (25-34); Mean Corpuscular Hgb Conc 33.7 g/dL (32-36); Mean Corpuscular Volume 83.4 fL (80-100); RDW Coefficient of Variation 17.2 % (11.5-14.5); RDW Standard Deviation 52.1 fL (36.4-46.3); Red Blood Count 4.63 M/uL (4.7-6.1); White Blood Count 12.93 K/uL (4.8-10.8)
[2019-04-01 06:25] LABS: ALC (manual) 1.91 K/uL (1.2-3.4); ANC (manual) 4.16 K/uL (1.4-6.5); Basophils # (manual) 0.22 K/uL (0-0.2); Basophils % (manual) 1.7 %; Eosinophils # (manual) 5.73 K/uL (0-0.5); Eosinophils % (manual) 44.3 %; Lymphocytes # (manual) 1.91 K/uL (1.2-3.4); Lymphocytes % (manual) 14.8 %; Monocytes # (manual) 0.91 K/uL (0.11-0.59); Neutrophils # (manual) 4.16 K/uL (1.4-6.5); Neutrophils % (manual) 32.2 %; RBC Morphology Unremarkable
[2019-04-01 06:30] LABS: Creatinine Clr Calc Pharmacy 59.4 ml/min; Est GFR (African American) 82.8; Est GFR (Non-African American) 71.4
[2019-04-01] MEDS: FORMOTEROL 20 MCG/2 ML VIAL NEB SCH ×2 (07:07→19:05)
[2019-04-01] MEDS: SODIUM CHLOR 7% 4 ML NEB NEB SCH ×2 (07:07→19:05)
--- NOTE | 2019-04-01 07:47 | XRay Report ---
XR chest 1V portable CLINICAL HISTORY: hypoxia COMPARISON STUDY: 03/31/2019 FINDINGS: There is persistent left lung volume loss with elevation left hemidiaphragm. There is inter stitial thickening with a basilar predominance.[ IMPRESSION: 1. Persistent left lung volume loss with elevation left hemidiaphragm 2. Interstitial thickening with a basilar predominance Electronically signed by: Braulio Vazquez M.D. 04/01/2019 7:45 AM
--- NOTE | 2019-04-01 09:04 | History & Physical Bridge Note ---
Date of Service April 01, 2019 History & Physical Bridge Note I have examined the patient, reviewed the History & Physical and in the interval since the performance of the History & Physical I have noted the following changes of clinical significance: no changes noted
--- NOTE | 2019-04-01 09:04 | Pre Anesthesia Assessment ---
Date of Service April 01, 2019 Pre Sedation Assessment Vital Signs Temp Pulse Pulse Pulse Resp BP BP 04/01/19 09:00 114 H 20 136/92 04/01/19 07:48 36.4 C L 62 19 123/80 04/01/19 07:09 91 H 18 04/01/19 04:00 04/01/19 00:00 03/31/19 23:42 36.4 C L 93 H 18 119/76 03/31/19 22:14 61 16 03/31/19 20:00 03/31/19 19:57 73 16 03/31/19 19:31 37.1 C 103 H 17 114/69 03/31/19 17:21 67 03/31/19 16:00 105 H 03/31/19 15:47 36.9 C 72 18 121/69 03/31/19 12:00 67 20 03/31/19 11:36 36.3 C L 111 H 22 114/72 03/31/19 10:43 109 H Pulse Ox Pulse Ox 04/01/19 09:00 98 04/01/19 07:48 91 04/01/19 07:09 98 04/01/19 04:00 97 04/01/19 00:00 98 03/31/19 23:42 96 03/31/19 22:14 96 03/31/19 20:00 96 03/31/19 19:57 98 03/31/19 19:31 95 03/31/19 17:21 03/31/19 16:00 95 03/31/19 15:47 95 03/31/19 12:00 95 03/31/19 11:36 97 03/31/19 10:43 Pre-Sedation Airway Assessment Smoking Status: Former smoker Short, Thick Neck: Yes Thyromental Distance: < 3.5 Finger Breadths Oral Cavity: + Dentures Mallampati Class: III ASA: ASA3 NPO Status Date of Last Intake of Fluids: 04/01/19 Time of Last Intake of Fluids: 00:00 Date of Last Intake of Solid Food: 04/01/19 Time of Last Intake of Solid Foods: 00:00 Notes The planned sedation has been discussed with the patient. Informed Consent was obtained. I have identified the patient, determined the appropriateness of sedation and have assessed the patient immediately prior to the procedure. All medicine(s) and interventions are by my order.
--- NOTE | 2019-04-01 09:19 | Post Anesthesia Assessment ---
Date of Service April 01, 2019 Post Sedation Assessment Vital Signs Temp Pulse Pulse Pulse Resp BP BP 04/01/19 09:15 124 H 22 154/102 H 04/01/19 09:10 122 H 24 147/95 H 04/01/19 09:05 97 H 20 135/100 04/01/19 09:00 114 H 20 136/92 04/01/19 08:00 105 H 04/01/19 07:48 36.4 C L 62 19 123/80 04/01/19 07:09 91 H 18 04/01/19 04:00 04/01/19 00:00 03/31/19 23:42 36.4 C L 93 H 18 119/76 03/31/19 22:14 61 16 03/31/19 20:00 03/31/19 19:57 73 16 03/31/19 19:31 37.1 C 103 H 17 114/69 03/31/19 17:21 67 03/31/19 16:00 105 H 03/31/19 15:47 36.9 C 72 18 121/69 03/31/19 12:00 67 20 03/31/19 11:36 36.3 C L 111 H 22 114/72 03/31/19 10:43 109 H Pulse Ox Pulse Ox 04/01/19 09:15 97 04/01/19 09:10 96 04/01/19 09:05 96 04/01/19 09:00 98 04/01/19 08:00 92 04/01/19 07:48 91 04/01/19 07:09 98 04/01/19 04:00 97 04/01/19 00:00 98 03/31/19 23:42 96 03/31/19 22:14 96 03/31/19 20:00 96 03/31/19 19:57 98 03/31/19 19:31 95 03/31/19 17:21 03/31/19 16:00 95 03/31/19 15:47 95 03/31/19 12:00 95 03/31/19 11:36 97 03/31/19 10:43 Recovery Score Activity: Moves 0 extremities Respiration: Deep Breath/Cough Circulation: +/-20-49% PreAnes Value Consciousness: Arouseable (by name) Oxygen Saturation: O2 needed for >90% Post Anesthesia Score: 5 Discharge Sedation Level of Care: Phase I Post Sedation Plan On clinical assessment, the patient appears to have tolerated the sedation without complications. Patient is recovering as anticipated. Patient will continue to be monitored by nursing and may be discharged when sedation discharge criteria are met per below protocol. Upon Completions of procedure up to 15 minutes continue every 5 minute vital signs and the P.A.R. score; then discharge to a Phase I or Fast Track to Phase II per the following guidelines: * Discharge Patient to appropriate Phase II area if PAR is 8 or greater or return to pre- procedure baseline. The post - procedure orders will be as directed. * If PAR score is less than 8 or not return to pre-procedure baseline then patient will follow Phase I monitoring till PAR is reached for Phase II. The Phase I may be done in procedure room or may call to secure a Phase I area. * If naloxone or flumazenil are used for reversal, hold in Phase I for continued monitoring from when last reversal dose was given for a minimum of 60 minutes or longer pending the nurse and/or physician discretion of patient condition before discharge to Phase II. Please call the Sedation Physician to re-evaluate and complete post-note for discharge to Phase II area. Do NOT discharge from procedure sedation or Phase 1 until post- sedation evaluation note is complete by procedure /sedation MD Sedation Discharge Instructions to be given to the patient at discharge to home.
[2019-04-01] MEDS ORDERED: LIDOCAINE HCL 2% (LOCAL) INJ 50 ML VIAL INFIL ONE (09:22)
[2019-04-01] MEDS ORDERED: fentaNYL citrate 100 MCG/2 ML VIAL IV ONE (09:22)
[2019-04-01] MEDS ORDERED: MIDAZOLAM HCL 1 MG/ML 2ML VIAL IV STA (09:22)
[2019-04-01] MEDS ORDERED: LIDOCAINE HCL 2% (LOCAL) INJ 50 ML VIAL INSTIL STA (09:22)
--- NOTE | 2019-04-01 09:23 | Procedure Note ---
Procedure Note Date of Service April 01, 2019 Coding
--- NOTE | 2019-04-01 09:25 | Procedure Note ---
Procedure Note Date of Service April 01, 2019 Note Mr. Zurita is a 78-year-old male who had a mass in his right lower lobe which was concerning. 5 days ago I performed a electromagnetic navigational bronchoscopy and marked this with indocyanine green dye and wedged it out. It turns out this was a hamartoma. He did well from that perspective however he developed atrial fibrillation and then developed collapse of his left upper lobe. He has a good cough but did not open up that lobe. For this reason I performed a therapeutic bronchoscopy today on 04/01/2019. A bloody mucous plug was found in the left upper lobe which was tenacious but we suctioned it out. He did very well. The left upper lobe bronchus was clear at the conclusion of the case. Procedure: After appropriate timeout of been called and the patient had been sedated with a milligram of Versed and 25 mcg of fentanyl these scope was placed into the left nares. We sprayed this with lidocaine. We also ministered a lidocaine nebulizer before the procedure. Going down we saw some white sputum at the epiglottis this was suctioned out. Both cords move normally. The bronchus was without lesions. There is no significant mucus in the bronchus. The right bronchial tree was evaluated down to the tertiary airway since and no evidence of mucous plugging or lesions was noted. Upon coming back we then went down to the left. The left lower lobe bronchus was clear however there was a bloody mucous plug in the left upper lobe which extended down into the superior aspect as well as the lingular aspect. This required vigorous suctioning and irrigation before it finally was able to be removed. We had minor bleeding with this which was controlled with iced saline. We suctioned him dry and he looked quite good with inclusion case. He did cough quite a bit with this. Patient is in and out of atrial fibrillation and his rate varied anywhere from 85-1 30. He had settled down by the conclusion of the case. His sedation was administered 9:08 AM and this ended at 9:19 AM. Chest x-ray is pending. Coding
--- NOTE | 2019-04-01 09:58 | XRay Report ---
XR chest 1V portable CLINICAL HISTORY: 78 years-old Male presenting with FOB. TECHNIQUE: Portable upright AP view of the chest was obtained. COMPARISON: 04/01/2019. FINDINGS: Atherosclerosis of the aortic arch. Cardiac silhouette enlarged. Heterogeneous lung parenchyma. Left retrocardiac opacity similar to prior though there is improved lung volume on the left. No new focal opacity. No large effusion or pneumothorax. Osseous structures normal. Soft tissue emphysema along th e right anterior chest wall. This relates to the recent pleural drain. IMPRESSION: 1. No pneumothorax. 2. Cardiomegaly without evidence of volume overload or congestive change. 3. Left retrocardiac opacity likely atelectasis or scarring though with improved left basilar aerati on. Electronically signed by: Sekou Milan M.D. 04/01/2019 9:57 AM
[2019-04-01] MEDS ORDERED: METOPROLOL TARTRATE 25 MG TAB PO STA (09:59)
--- NOTE | 2019-04-01 09:59 | Cardiology Progress Note ---
Date of Service April 01, 2019 Assessment & Plan (1) Paroxysmal atrial fibrillation: He has a history of atrial fibrillation as well as atrial flutter, we did do a flutter ablation here in 2016 and I do not know if he has had recurrence of that, he has not here. I do not have a lot of records, he does seem to follow with Dr. King in [place] for his atrial arrhythmias but I do not know the status. I believe he was last seen there in December of this year. He has had paroxysmal atrial fibrillation here, however the rate is quite fast and he is in it quite a bit of the time. He does take Eliquis. He is on diltiazem 240 mg daily at home, he is taking that here as well as addition of digoxin 0.125 mg for several days and metoprolol tartrate 50 mg twice daily but continues to have a rapid heart rate. He will need more AV sheila blocking medications. I am going to try increasing his beta-blockade (metoprolol) and leaving him on diltiazem and digoxin. (2) Arteriosclerotic coronary artery disease: He has coronary artery disease, I believe that is also followed in [place]. He has no symptoms suggestive of ischemia and I would not alter his treatment for it. (3) Anticoagulant long-term use: He is on Eliquis as an outpatient I believe, and we have restarted it now. He does not seem to be having difficulty with that. Given his age, weight and kidney function he would be on 5 mg twice a day. Subjective He is feeling relatively well now, he remains unaware of his atrial fibrillation which has continued in a paroxysmal manner. He is tolerating increase heart rate control medications. Physical Exam Physical Exam: Constitutional: Alert, cooperative and in no distress. Pulmonary: Clear to auscultation bilaterally. Cardiac: Irregular rhythm with no murmur, gallop or rub. Abdomen: Soft, nontender with normal bowel sounds. Extremities: No edema. Skin: No rash, ecchymoses or petechiae. Results & Data Vital Signs (Past 12 Hours) Vital Signs Temp Pulse Pulse Pulse Resp BP Pulse Ox 04/01/19 09:35 123 H 20 116/74 93 04/01/19 09:30 119 H 20 111/78 93 04/01/19 09:25 107 H 24 115/83 94 04/01/19 09:20 98 H 22 126/78 97 04/01/19 09:15 124 H 22 154/102 H 97 04/01/19 09:10 122 H 24 147/95 H 96 04/01/19 09:05 97 H 20 135/100 96 04/01/19 09:00 114 H 20 136/92 98 04/01/19 08:00 105 H 04/01/19 07:48 36.4 C L 62 19 123/80 91 04/01/19 07:09 91 H 18 98 04/01/19 04:00 04/01/19 00:00 03/31/19 23:42 36.4 C L 93 H 18 119/76 96 03/31/19 22:14 61 16 96 Pulse Ox 04/01/19 09:35 04/01/19 09:30 04/01/19 09:25 04/01/19 09:20 04/01/19 09:15 04/01/19 09:10 04/01/19 09:05 04/01/19 09:00 04/01/19 08:00 92 04/01/19 07:48 04/01/19 07:09 04/01/19 04:00 97 04/01/19 00:00 98 03/31/19 23:42 03/31/19 22:14 Laboratory Results Abnormal lab results 03/31/19 03/31/19 03/31/19 Range/Units 11:25 16:11 20:26 WBC (4.8-10.8) K/uL RBC (4.7-6.1) M/uL Hgb (14.0-18.0) g/dL Hct (42-52) % RDW Std Deviation (36.4-46.3) fL RDW Coeff of Ashu (11.5-14.5) % Monocytes # (Manual) (0.11-0.59) K/uL Eosinophils # (Manual) (0-0.5) K/uL Basophils # (Manual) (0-0.2) K/uL POC Glucose 183 H 154 H 163 H (70-99) 04/01/19 04/01/19 Range/Units 05:47 07:28 WBC 12.93 H (4.8-10.8) K/uL RBC 4.63 L (4.7-6.1) M/uL Hgb 13.0 L (14.0-18.0) g/dL Hct 38.6 L (42-52) % RDW Std Deviation 52.1 H (36.4-46.3) fL RDW Coeff of Ashu 17.2 H (11.5-14.5) % Monocytes # (Manual) 0.91 H (0.11-0.59) K/uL Eosinophils # (Manual) 5.73 H (0-0.5) K/uL Basophils # (Manual) 0.22 H (0-0.2) K/uL POC Glucose 140 H (70-99) Diagnostic Findings Telemetry: Paroxysmal atrial fibrillation, during sinus rhythm his heart rate is in the low to mid 60s, during atrial fibrillation in the 100 to 120 bpm range PG Care Time/CCT Total # of Minutes Spent Total Time Spent with Patient: Total time spent is greater than 50% in coordination of care (as documented) at patient's floor/unit and/or counseling patient:
[2019-04-01] MEDS: INSULIN ASPART 100 UNITS/ML 3 ML PEN SC SCH ×4 (12:10→21:24)
[2019-04-01] MEDS: ASPIRIN 81 MG ECTAB PO SCH ×2 (12:11→21:22)
[2019-04-01] MEDS: TIOTROPIUM BROMIDE 5 PUFF/90 MCG INH INH SCH (12:12)
[2019-04-01] MEDS: levETIRAcetam 500 MG TAB PO SCH ×2 (12:12→21:21)
[2019-04-01] MEDS: MAGNESIUM OXIDE 400 MG TAB PO SCH (12:12)
[2019-04-01] MEDS: guaiFENesin 600 MG TABCR PO SCH ×2 (12:12→21:22)
[2019-04-01] MEDS: SERTRALINE HCL 100 MG TABLET PO SCH (12:12)
[2019-04-01] MEDS: dilTIAZem HCL 240 MG CAPCR PO SCH (12:12)
[2019-04-01] MEDS: TAMSULOSIN HCL 0.4 MG CAP PO SCH (12:13)
[2019-04-01] MEDS: DOCUSATE SODIUM 100 MG CAP PO SCH ×2 (12:16→21:27)
[2019-04-01] MEDS: METOPROLOL TARTRATE 50 MG TAB PO SCH (12:24)
[2019-04-01] MEDS: DIGOXIN 0.125 MG TAB PO SCH (16:54)
[2019-04-01] MEDS: ACETYLCYSTEINE 20% INHAL SOLN ***DISPENSED BY RESP. INH SCH (19:14)
[2019-04-01] MEDS: ATORVASTATIN 40 MG TAB PO SCH (21:22)
[2019-04-01] MEDS: MONTELUKAST SODIUM 10 MG TABLET PO SCH (21:22)
[2019-04-01] MEDS: METOPROLOL TARTRATE 25 MG TAB PO SCH (21:27)
[2019-04-02] MEDS: PIPERACILLIN/TAZOBACTAM 3.375 GM in DEXTROSE 5% 100 ML IV SCH ×3 (06:30→21:25)
[2019-04-02] MEDS: LEVOTHYROXINE SODIUM 25 MCG TABLET PO SCH (06:31)
[2019-04-02] MEDS: ACETAMINOPHEN 500 MG TAB PO SCH ×3 (06:35→21:17)
[2019-04-02] MEDS: ACETYLCYSTEINE 20% INHAL SOLN ***DISPENSED BY RESP. INH SCH ×2 (07:07→19:41)
[2019-04-02] MEDS: SODIUM CHLOR 7% 4 ML NEB NEB SCH ×2 (07:07→19:40)
[2019-04-02] MEDS: FORMOTEROL 20 MCG/2 ML VIAL NEB SCH ×2 (07:07→19:40)
--- NOTE | 2019-04-02 08:10 | XRay Report ---
XR chest 1V portable CLINICAL HISTORY: 78 years-old Male presenting with hypoxia. TECHNIQUE: Portable upright AP view of the chest was obtained. COMPARISON: 04/01/2019 at 9:44 AM. FINDINGS: Atherosclerosis of the aortic arch. Cardiac silhouette enlarged. Pulmonary vasculature is slightly mo re prominent on the current exam. Lungs are mildly hyperinflated. Left retrocardiac opacity similar t o prior exam. Minimal right basilar opacity is increased from prior. Trace bilateral pleural effusion s are not excluded. Peripheral nodule in the right upper lung correlates with the loculated hydropneu mothorax on recent CT from 03/31/2019. No large pneumothorax. Osseous structures normal. Upper abdome n normal. IMPRESSION: 1. Slight interval increase in right basilar infiltrate, possibly atelectasis or aspiration. A persi stent left retrocardiac infiltrate could also represent atelectasis or aspiration. 2. Cardiomegaly with mild volume overload. 3. Loculated right upper lung hydropneumothorax. 4. Mild hyperinflation. Electronically signed by: Sekou Milan M.D. 04/02/2019 8:08 AM
[2019-04-02] MEDS: INSULIN ASPART 100 UNITS/ML 3 ML PEN SC SCH ×4 (09:07→20:32)
[2019-04-02] MEDS: METOPROLOL TARTRATE 25 MG TAB PO SCH (09:22)
[2019-04-02] MEDS: MAGNESIUM OXIDE 400 MG TAB PO SCH (09:23)
[2019-04-02] MEDS: SERTRALINE HCL 100 MG TABLET PO SCH (09:23)
[2019-04-02] MEDS: TAMSULOSIN HCL 0.4 MG CAP PO SCH (09:23)
[2019-04-02] MEDS: guaiFENesin 600 MG TABCR PO SCH ×2 (09:23→20:39)
[2019-04-02] MEDS: dilTIAZem HCL 240 MG CAPCR PO SCH (09:24)
[2019-04-02] MEDS: TIOTROPIUM BROMIDE 5 PUFF/90 MCG INH INH SCH (09:24)
[2019-04-02] MEDS: ASPIRIN 81 MG ECTAB PO SCH ×2 (09:24→20:39)
[2019-04-02] MEDS: levETIRAcetam 500 MG TAB PO SCH ×2 (09:24→20:39)
[2019-04-02] MEDS ORDERED: METOPROLOL TARTRATE 25 MG TAB PO STA (10:54)
--- NOTE | 2019-04-02 10:58 | Cardiology Progress Note ---
Date of Service April 02, 2019 Assessment & Plan (1) Paroxysmal atrial fibrillation: He has a history of atrial fibrillation as well as atrial flutter, we did do a flutter ablation here in 2016 and I do not know if he has had recurrence of that, he has not here. I do not have a lot of records, he does seem to follow with Dr. King in [place] for his atrial arrhythmias but I do not know the status. I believe he was last seen there in December of this year. He has had paroxysmal atrial fibrillation here, however the rate is quite fast and he is in it quite a good bit of the time. He does take Eliquis. He is on diltiazem 240 mg daily at home, he is taking that here as well as addition of digoxin 0.125 mg for several days and metoprolol tartrate now at 75 mg twice daily but continues to have a somewhat rapid heart rate. He will need more AV sheila blocking medications. I am going to try increasing his beta-blockade (metoprolol tartrate) to 100 mg twice a day and leaving him on diltiazem and digoxin. I would not keep him hospitalized for this. (2) Arteriosclerotic coronary artery disease: He has coronary artery disease, I believe that is also followed in [place]. He has no symptoms suggestive of ischemia and I would not alter his treatment for it. (3) Anticoagulant long-term use: He is on Eliquis as an outpatient I believe, and we have restarted it now. He does not seem to be having difficulty with that. Given his age, weight and kidney function he would be on 5 mg twice a day. Subjective From the cardiovascular standpoint he is feeling well. He tells me that he is anxious to go home. Physical Exam Physical Exam: Constitutional: Alert, cooperative and in no distress. Pulmonary: Clear to auscultation bilaterally. Cardiac: Irregular somewhat rapid rhythm with no murmur, gallop or rub. Abdomen: Soft, nontender with normal bowel sounds. Extremities: No edema. Skin: No rash, ecchymoses or petechiae. Results & Data Vital Signs (Past 12 Hours) Vital Signs Temp Pulse Pulse Pulse Resp BP Pulse Ox 04/02/19 08:53 36.4 C L 106 H 21 137/69 92 04/02/19 08:00 105 H 04/02/19 07:11 102 H 22 92 04/02/19 04:00 36.4 C L 106 H 20 131/86 94 04/02/19 00:00 04/01/19 23:58 37.1 C 76 20 134/73 95 Pulse Ox 04/02/19 08:53 04/02/19 08:00 97 04/02/19 07:11 04/02/19 04:00 04/02/19 00:00 97 04/01/19 23:58 Laboratory Results Abnormal lab results 04/01/19 04/01/19 04/01/19 Range/Units : 16:03 20:56 POC Glucose 167 H 229 H 199 H (70-99) 04/02/19 Range/Units 08:18 POC Glucose 190 H (70-99) Diagnostic Findings Telemetry: He continues to go in and out of atrial fibrillation. During atrial fibrillation his heart rate is in the low 100s, during sinus rhythm it is in the 80s. PG Care Time/CCT Total # of Minutes Spent Total Time Spent with Patient: Total time spent is greater than 50% in coordination of care (as documented) at patient's floor/unit and/or counseling patient:
[2019-04-02] MEDS: DOCUSATE SODIUM 100 MG CAP PO SCH ×2 (11:06→20:39)
--- NOTE | 2019-04-02 15:02 | Surgery Progress Note ---
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 Zurita. Rather frail elderly male and has tolerated the procedure well. I am quite pleased with his x-ray. Our biggest problem right now is his atrial fibrillation. He has had bouts of this before coming to the hospital. I am hopeful we can discharge him in the morning. Present on Admission?: Yes Subjective Mr. Zurita was seen today. He is much improved. He is off of oxygen. He is ambulating in the hallway. He sounds better on auscultation. I disagree with the radiology report. His left lung is better aerated. He also "feels better". Physical Exam Respiratory: He is moving air much better in the left side. Incisions are clean on the right. He is much less confused. Results & Data Vital Signs (Past 12 Hours) Vital Signs Temp Pulse Pulse Pulse Resp BP Pulse Ox 04/02/19 12:01 36.4 C L 64 18 124/82 92 04/02/19 08:53 36.4 C L 106 H 21 137/69 92 04/02/19 08:00 105 H 04/02/19 07:11 102 H 22 92 04/02/19 04:00 36.4 C L 106 H 20 131/86 94 Pulse Ox 04/02/19 12:01 04/02/19 08:53 04/02/19 08:00 97 04/02/19 07:11 04/02/19 04:00 PG Care Time/CCT Total # of Minutes Spent Total Time Spent with Patient: Total time spent is greater than 50% in coordination of care (as documented) at patient's floor/unit and/or counseling patient:
[2019-04-02] MEDS: DIGOXIN 0.125 MG TAB PO SCH (17:06)
[2019-04-02] MEDS: ATORVASTATIN 40 MG TAB PO SCH (20:39)
[2019-04-02] MEDS: METOPROLOL TARTRATE 100 MG TAB PO SCH (20:39)
[2019-04-02] MEDS: MONTELUKAST SODIUM 10 MG TABLET PO SCH (20:40)
[2019-04-03] MEDS: PIPERACILLIN/TAZOBACTAM 3.375 GM in DEXTROSE 5% 100 ML IV SCH (05:48)
[2019-04-03] MEDS: LEVOTHYROXINE SODIUM 25 MCG TABLET PO SCH (05:49)
[2019-04-03] MEDS: ACETAMINOPHEN 500 MG TAB PO SCH (05:49)
--- NOTE | 2019-04-03 07:08 | XRay Report ---
XR chest 1V portable CLINICAL HISTORY: hypoxia COMPARISON STUDY: 04/02/2019 FINDINGS: The heart remains enlarged. There is mild elevation of interstitium suggesting mild pulmona ry vascular congestion. There are persistent but improving left basilar airspace opacities. No signif icant pneumothorax is visualized.[ IMPRESSION: 1. Cardiomegaly with radiographic evidence of mild pulmonary vascular congestion/fluid overload 2. No significant pneumothorax 3. Persistent but improving left basilar airspace opacities Electronically signed by: Braulio Vazquez M.D. 04/03/2019 7:07 AM
[2019-04-03] MEDS: ACETYLCYSTEINE 20% INHAL SOLN ***DISPENSED BY RESP. INH SCH (07:18)
[2019-04-03] MEDS: FORMOTEROL 20 MCG/2 ML VIAL NEB SCH (07:18)
[2019-04-03] MEDS: SODIUM CHLOR 7% 4 ML NEB NEB SCH (07:18)
[2019-04-03] MEDS: SERTRALINE HCL 100 MG TABLET PO SCH (07:58)
[2019-04-03] MEDS: MAGNESIUM OXIDE 400 MG TAB PO SCH (07:58)
[2019-04-03] MEDS: dilTIAZem HCL 240 MG CAPCR PO SCH (07:59)
[2019-04-03] MEDS: ASPIRIN 81 MG ECTAB PO SCH (07:59)
[2019-04-03] MEDS: TAMSULOSIN HCL 0.4 MG CAP PO SCH (07:59)
[2019-04-03] MEDS: METOPROLOL TARTRATE 100 MG TAB PO SCH (07:59)
[2019-04-03] MEDS: guaiFENesin 600 MG TABCR PO SCH (07:59)
[2019-04-03] MEDS: TIOTROPIUM BROMIDE 5 PUFF/90 MCG INH INH SCH (08:00)
[2019-04-03] MEDS: INSULIN ASPART 100 UNITS/ML 3 ML PEN SC SCH ×2 (08:01→12:04)
[2019-04-03] MEDS: levETIRAcetam 500 MG TAB PO SCH (08:02)
[2019-04-03] MEDS: DOCUSATE SODIUM 100 MG CAP PO SCH (08:02)
--- NOTE | 2019-04-03 13:32 | Discharge Summary ---
Date of Service April 03, 2019 Discharge Data Consultations 03/27/19 13:57 Consult Cardiology Routine 03/27/19 16:22 Consult Ruby Software Developer Routine 03/29/19 14:44 Consult Pulmonology Routine 04/02/19 11:51 Consult Case Management - Discharge Planning Routine Procedures Performed Operation Date: 03/27/19 07:30 Actual Procedures s Navigational Bronchoscopy with ICG Dye, - Joseluis Lynn MD, FACS p Robotic Right Video Assisted Thoracoscopy with Right Lower Lobe Wedge Resection with Mediastinal Lymphadenectomy and Lymph Node Biopsy(Right) - Joseluis Lynn MD, FACS Operation Date: 04/01/19 09:00 Actual Procedures p Bronchoscopy (Bilateral) - Joseluis yLnn MD, FACS Hospital Course (1) 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 On 03/27/2019 the patient underwent an uncomplicated electromagnetic navigational bronchoscopy and marking of this mass with indocyanine green dye. I then turned him and did a robot-assisted thoracoscopic wedge resection. Turns out this was a hamartoma. Patient did well with surgical standpoint however he did run to a few issues postoperatively. He developed atelectasis of the left upper lobe with mucous plugging. He also had some periods of confusion. Her biggest problem however was his atrial fibrillation with rapid ventricular response which we had trouble controlling with medications. Dr Cedillo was quite helpful in this regard. Patient is slowly improved and was finally discharged on postoperative day 7. Quite pleased with this was a hamartoma did not require any further treatment. Discharged home on postoperative day 7. I will see him back in the office next week. He did develop mucus plugging with collapse of his left upper lobe and I performed a therapeutic bronchoscopy on postoperative day 4. After removing this plug his lung opened up nicely his x-ray today look quite good. Cough is also much better. Discharge instructions to be given. We will see him back next week.
== END 2019-04-03 13:39 | disposition home health service (06) | DRG 829 ==
LOC: ASU 05:40 → 1E 10:21 → 2S 03-28 19:03
DX: Q85.9 Phakomatosis, unspecified; E11.9 Type 2 diabetes mellitus without complications; R91.8 Other nonspecific abnormal finding of lung field; I10 Essential (primary) hypertension; T17.900A Unspecified foreign body in respiratory tract, part unspecified causing asphyxiation, initial encounter; I48.91 Unspecified atrial fibrillation; G31.84 Mild cognitive impairment of uncertain or unknown etiology; Z86.73 Personal history of transient ischemic attack (TIA), and cerebral infarction without residual deficits; R25.1 Tremor, unspecified; Z99.81 Dependence on supplemental oxygen; I48.92 Unspecified atrial flutter; J98.11 Atelectasis; F41.9 Anxiety disorder, unspecified

== ENCOUNTER 2019-06-04 15:38 | Inpatient (IN) ==
[2019-06-04] MEDS ORDERED: ALBUT/IPRATROP 3MG/0.5MG NEB 3 ML VIAL INH STA (16:36)
[2019-06-04 16:55] LABS: Basophils # (auto) 0.09 K/uL (0-0.2); Basophils % (auto) 0.6 %; Eosinophils # (auto) 0.37 K/uL (0-0.5); Eosinophils % (auto) 2.7 %; Hematocrit (blood only) 42.3 % (42-52); Hemoglobin 13.8 g/dL (14.0-18.0); Immature Granulocytes # (auto) 0.03 K/uL (0.00-0.02); Immature Granulocytes % (auto) 0.2 %; Lymphocytes # (auto) 1.85 K/uL (1.2-3.4); Lymphocytes % (auto) 13.4 %; Mean Corpuscular Hemoglobin 26.5 pg (25-34); Mean Corpuscular Hgb Conc 32.6 g/dL (32-36); Mean Corpuscular Volume 81.3 fL (80-100); Mean Platelet Volume 9.8 fL (7.4-10.4); Monocytes # (auto) 1.13 K/uL (0.11-0.59); Monocytes % (auto) 8.2 %; Neutrophils # (auto) 10.38 K/uL (1.4-6.5); Neutrophils % (auto) 74.9 %; Platelet Count 289 K/uL (130-400); RDW Coefficient of Variation 17.2 % (11.5-14.5); RDW Standard Deviation 51.1 fL (36.4-46.3); White Blood Count 13.85 K/uL (4.8-10.8)
--- NOTE | 2019-06-04 17:02 | XRay Report ---
XR chest 1V portable CLINICAL HISTORY: Dyspnea dyspnea COMPARISON STUDY: 04/09/2019 FINDINGS: Mild bibasilar parenchymal infiltrative change. Improved left basilar superimposed atelecta sis. In the upper lungs are clear. There is a component of mild emphysematous change. IMPRESSION: Mild chronic bibasilar parenchymal infiltrates. Mild emphysematous change. ACT 112: Negative or not required by law. The above report was generated using voice recognition software. It may contain grammatical, syntax or spelling errors. Electronically signed by: Kvng Cuellar M.D. 06/04/2019 5:01 PM
[2019-06-04 17:03] LABS: Albumin Level 3.4 gm/dl (3.4-5.0); BUN Creatinine Ratio 22.4 (10-20); Calcium 9.6 mg/dl (8.5-10.1); Creatinine Clr Calc Pharmacy 49.8 ml/min; Est GFR (African American) 76.3; Est GFR (Non-African American) 65.9; Potassium 4.5 mmol/L (3.5-5.1)
[2019-06-04 17:06] LABS: Albumin Globulin Ratio 0.7 (0.9-2); Bilirubin,Total 0.3 mg/dl (0.2-1); Globulin 4.8 gm/dl (2.5-4.0); INR 1.1 (0.9-1.1); Partial Thromboplastin Time 28.1 Seconds (21.0-31.0); Prothrombin Time 11.4 Seconds (9.0-12.0); Total Protein 8.2 gm/dl (6.4-8.2)
[2019-06-04 18:12] LABS: Influenza A virus by PCR Neg for Influ A (Neg); Influenza B virus by PCR Neg for Influ B (Neg)
[2019-06-04 18:53] LABS: Appearance Urine Clear (Clear); Bacteria Urine Automated Negative (Negative); Bilirubin Urine Negative (Negative); Blood Urine Negative (Negative); Color Urine Dark Yellow; Glucose Urine UA Negative (Negative); Ketones Urine Trace (Negative); Leukocyte Esterase Urine Negative (Negative); Nitrite Urine Negative (Negative); Protein Urine Trace (Negative); RBC Urine Automated 0-4 /hpf (0-4); Specific Gravity Urine 1.025 (1.000-1.030); Urobilinogen Urine Negative (Negative)
--- NOTE | 2019-06-04 19:48 | History & Physical Report ---
Date of Service June 04, 2019 Assessment & Plan (1) COPD exacerbation: Jose J Zurita is a 78y/o M with PMH significant for COPD, HTN, HLD, T2DM, A.fib, BPH, and depression; presented to the ED following an oxygen saturation of 70% at home; improved with COPD exacerbation: - continue Trelegy ellipta, with duoneb PRN Q4h for maintained shortness of breath - continue steroid taper started on 05/28 (15 days total) - flutter valve TID and mucinex for new wheeze from [facility] - VBG does not demonstrate profound CO2 retention - consider zithromax if concern for bacterial exacerbation persists A.fib: - patient with background fibrillation activity as demonstrated on EKG from 03/28/19; HR in the 60s in ED - continue home digoxin, cardizem, and toprol - continue home Eliquis 5mg BID T2DM: - hold home oral regimen - Lantus 5units BID; with SSI Seizure: - continue Keppra 1000mg BID Dyslipidemia: - continue home atorvastatin HTN: - continue home lisinopril, in addition to above cardiac meds Hypothyroidism: - continue home synthroid BPH: - continue home tamsulosin Depression: - continue home zoloft Diet: Carb consistent DVT ppx: on Eliquis Code status: Full code (2) Atrial fibrillation: (3) Type 2 diabetes mellitus: (4) Seizure: (5) Dyslipidemia: (6) Hypertension: (7) Hypothyroidism (acquired): (8) Benign prostatic hyperplasia with urinary obstruction: (9) Depression: History of Present Illness Chief Complaint: shotrness of breath Primary Care Provider: Lorna Tucker DO Jose J Zurita is a 78y/o M with PMH significant for COPD, HTN, HLD, T2DM, A.fib, BPH, and depression; who presented to the emergency room with increasing shortness of breath after home nursing noted that his oxygen saturation was 70% at home. Was previously on 2L NC at home but only during the night, and had noticed that he was feeling more confused early in the morning than he had been prior to starting the new medications. Has been taking the Trelegy inhaler 1-2x a week for his COPD and has not been using his rescue inhaler. Allergies Allergy/AdvReac Type Severity Reaction Status Date / Time pollen extracts Allergy Mild CONGESTION Verified 06/04/19 19:19 Home Medications Home Medications Medication Instructions Recorded Confirmed Type aspirin [Aspir-81] 81 mg PO BID 02/02/18 06/04/19 History cyanocobalamin (vitamin B-12) 1,000 mcg PO QAM #180 tab 10/22/18 06/04/19 Rx 1,000 mcg tablet metformin 1,000 mg tablet 1,000 mg PO BID #180 tab 10/22/18 06/04/19 Rx albuterol sulfate 90 mcg/actuation 2 puffs INH Q4H PRN gm 01/16/19 06/04/19 History aerosol inhaler calcium carbonate 600 mg (1,500 2 tab PO PM 01/16/19 06/04/19 History mg)-vitamin D3 400 unit tablet albuterol sulfate 2.5 mg INH QID PRN #90 ml 01/18/19 06/04/19 Rx Vitamin D3 4,000 unit PO PM 01/29/19 06/04/19 History fluticasone propionate 50 1 - 2 sprays INTNAS DAILY PRN gm 02/02/19 06/04/19 History mcg/actuation nasal spray,suspension digoxin 125 mcg PO DAILY@1600 #30 tab 04/03/19 06/04/19 Rx tamsulosin 0.4 mg PO QAM #30 cap 04/03/19 06/04/19 Rx fluticasone fur. 100 mcg-umeclid 1 inh INHALATION QAM #60 ea 04/10/19 06/04/19 Rx 62.5 mcg-vilant 25 mcg inhalat.powder apixaban 5 mg tablet 5 mg PO BID #180 tab 04/12/19 06/04/19 Rx diltiazem HCl 240 mg 240 mg PO PM #90 cap 05/16/19 06/04/19 Rx capsule,extended release 24 hr levetiracetam 500 mg tablet 1,000 mg PO BID #28 tab 05/21/19 06/04/19 Rx metoprolol tartrate 100 mg tablet 100 mg PO BID #180 tab 05/21/19 06/04/19 Rx atorvastatin 40 mg tablet 40 mg PO PM #90 tab 05/24/19 06/04/19 Rx glimepiride 2 mg tablet 4 mg PO QAM #180 tab 05/24/19 06/04/19 Rx lisinopril 20 mg tablet 20 mg PO PM #90 tab 05/24/19 06/04/19 Rx montelukast 10 mg tablet 10 mg PO PM #90 tab 05/24/19 06/04/19 Rx sertraline 100 mg tablet 100 mg PO QAM #90 tab 05/24/19 06/04/19 Rx levothyroxine 25 mcg tablet 25 mcg PO QAM #90 tab 05/27/19 06/04/19 Rx Past Med/Surg History Medical History Abdominal aortic aneurysm (AAA), 30-34 mm diameter (Chronic) Anxiety Arteriosclerotic coronary artery disease (Chronic) Asthma (Chronic) Atrial flutter DX [address] CUELLAR IN [place] Benign prostatic hyperplasia with urinary obstruction (Chronic) CAD (coronary artery disease) Chronic anticoagulation (Chronic) COPD, moderate (Chronic) Depression (Chronic) Dyslipidemia (Chronic) Hypertension (Chronic) Hypothyroidism (acquired) (Chronic) Mild cognitive impairment (Chronic) On home oxygen therapy AT NIGHT Osteoarthritis Osteoporosis (Chronic) Paroxysmal atrial fibrillation (Chronic) DX [address] CUELLAR IN [place] Seizure (Acute) 01/29/19 - X2 ON THAT DAY AND WAS ADMITTED AND STARTED ON KEPPRA AND NO SEIZURE SINCE TIA (transient ischemic attack) 2017 X 1 AND NONE SINCE Tremor HANDS Type 2 diabetes mellitus (Chronic) Surgical History H/O 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 Lynn 03/27/19 Hx of cardiac cath 2017 -- HEART CATH WITH STENT [address] 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[email or web address] Other Information That Helps Us Care for You: No Feels Safe at Home: Yes Safety Concerns: Feels Safe At This Time Smoking Status: Former smoker Tobacco Type: smokeless tobacco ; Cigarettes Per Day: 20-40 ; Smoking End Date: 1973 ; Number of Years Since Quit: 34 ; Second Hand Exposure: No ; Hx Alcohol Use: No Hx Substance Use: No Childhood Exposure to Second-Hand Smoke: Yes Diet Comment: regular caffeine: No Dental Care, Regularly: No Physical Activity Frequency: Does not Exercise Seatbelt Use: always Sunscreen Use: Yes Review of Systems Constitutional: no fever, no chills and no sweats Eyes: no diplopia, no photophobia and no spots in vision Ear, Nose, Mouth, Throat: no ear pain, no ear discharge, no nasal congestion and no nasal discharge Respiratory: + dyspnea; no cough and no wheezing Cardiovascular: no chest pain and no edema Gastrointestinal: no abdominal pain, no nausea and no vomiting Genitourinary: no difficulty urinating, no urinary frequency, no urinary hesitancy and no hematuria Physical Exam Constitutional: WD/WN, vitals as above Eyes: PERRL, conjunctivae normal, anicteric sclerae ENMT: external ear and nose normal, oropharynx normal Respiratory: normal respiratory effort; no respiratory distress, no labored breathing and no cough Auscultation: + wheezes (L whole field); no crackles and no rales Cardiovascular: Rate/Rhythm: regular rate and regular rhythm Heart Sounds: normal S1 and normal S2; no gallop, no murmur and no cardiac rub Vessels: no JVD Extremities: no pedal edema and no edema Gastrointestinal (Abdomen): normal bowel sounds, soft, nontender, no hepatosplenomegaly Skin: no rashes, warm and dry Results & Data Vital Signs (Past 12 Hours) Vital Signs Temp Pulse Pulse Pulse Pulse Resp Resp 06/04/19 18:00 53 L 68 18 22 06/04/19 16:49 73 17 06/04/19 16:06 52 L 18 06/04/19 15:41 36.4 C L 50 L 20 BP BP Pulse Ox Pulse Ox 06/04/19 18:00 92 90 06/04/19 16:49 90 06/04/19 16:06 113/59 L 94 06/04/19 15:41 110/61 93 Laboratory Results 06/04/19 06/04/19 06/04/19 Range/Units 20:46 20:43 18:15 WBC (4.8-10.8) K/uL RBC (4.7-6.1) M/uL Hgb (14.0-18.0) g/dL Hct (42-52) % MCV (80-100) fL MCH (25-34) pg MCHC (32-36) g/dL RDW Std Deviation (36.4-46.3) fL RDW Coeff of Ashu (11.5-14.5) % Plt Count (130-400) K/uL MPV (7.4-10.4) fL Immature Gran % (Auto) % Neut % (Auto) % Lymph % (Auto) % Bledsoe % (Auto) % Eos % (Auto) % Baso % (Auto) % Immature Gran # (Auto) (0.00-0.02) K/uL Neut # (Auto) (1.4-6.5) K/uL Lymph # (Auto) (1.2-3.4) K/uL Bledsoe # (Auto) (0.11-0.59) K/uL Eos # (Auto) (0-0.5) K/uL Baso # (Auto) (0-0.2) K/uL PT (9.0-12.0) Seconds INR (0.9-1.1) APTT (21.0-31.0) Seconds PTT Ratio VBG pH 7.38 (7.36-7.41) VBG pCO2 43 (38-50) mmHg VBG pO2 32 mmHg VBG HCO3 25 mmol/L VBG O2 Saturation < 60.0 % VBG Base Excess -0.4 mEq/L Barometric Pressure 731.2 mm/Hg Sodium (136-145) mmol/L Potassium (3.5-5.1) mmol/L Chloride (98-107) mmol/L Carbon Dioxide (21-32) mmol/L Anion Gap (3-11) BUN (7-18) mg/dl Creatinine (0.6-1.4) mg/dl Est Cr Clr Drug Dosing ml/min Est GFR ( Amer) Est GFR (Non-Af Amer) BUN/Creatinine Ratio (10-20) Glucose (70-99) mg/dl POC Glucose 208 H (70-99) mg/dl Calcium (8.5-10.1) mg/dl Total Bilirubin (0.2-1) mg/dl AST (15-37) U/L ALT (12-78) U/L Alkaline Phosphatase (45-117) U/L Total Protein (6.4-8.2) gm/dl Albumin (3.4-5.0) gm/dl Globulin (2.5-4.0) gm/dl Albumin/Globulin Ratio (0.9-2) Urine Color Dark Yellow Urine Appearance Clear (Clear) Urine pH 5.0 (4.5-7.5) Ur Specific Maxwell 1.025 (1.000-1.030) Urine Protein Trace H (Negative) Urine Glucose (UA) Negative (Negative) Urine Ketones Trace H (Negative) Urine Blood Negative (Negative) Urine Nitrite Negative (Negative) Urine Bilirubin Negative (Negative) Urine Urobilinogen Negative (Negative) Ur Leukocyte Esterase Negative (Negative) Urine WBC (Auto) 1-5 (0-5) /hpf Urine RBC (Auto) 0-4 (0-4) /hpf U Hyaline Cast (Auto) 5-10 H (0-5) /lpf U Epithel Cells (Auto) 10-20 H (0-5) /lpf Urine Bacteria (Auto) Negative (Negative) Influenza Type A (PCR) (Neg) Influenza Type B (PCR) (Neg) 06/04/19 06/04/19 06/04/19 Range/Units 17:25 16:03 16:03 WBC (4.8-10.8) K/uL RBC (4.7-6.1) M/uL Hgb (14.0-18.0) g/dL Hct (42-52) % MCV (80-100) fL MCH (25-34) pg MCHC (32-36) g/dL RDW Std Deviation (36.4-46.3) fL RDW Coeff of Ashu (11.5-14.5) % Plt Count (130-400) K/uL MPV (7.4-10.4) fL Immature Gran % (Auto) % Neut % (Auto) % Lymph % (Auto) % Bledsoe % (Auto) % Eos % (Auto) % Baso % (Auto) % Immature Gran # (Auto) (0.00-0.02) K/uL Neut # (Auto) (1.4-6.5) K/uL Lymph # (Auto) (1.2-3.4) K/uL Bledsoe # (Auto) (0.11-0.59) K/uL Eos # (Auto) (0-0.5) K/uL Baso # (Auto) (0-0.2) K/uL PT 11.4 (9.0-12.0) Seconds INR 1.1 (0.9-1.1) APTT 28.1 (21.0-31.0) Seconds PTT Ratio 1.0 VBG pH (7.36-7.41) VBG pCO2 (38-50) mmHg VBG pO2 mmHg VBG HCO3 mmol/L VBG O2 Saturation % VBG Base Excess mEq/L Barometric Pressure mm/Hg Sodium 136 (136-145) mmol/L Potassium 4.5 (3.5-5.1) mmol/L Chloride 104 (98-107) mmol/L Carbon Dioxide 27 (21-32) mmol/L Anion Gap 5.0 (3-11) BUN 24 H (7-18) mg/dl Creatinine 1.08 (0.6-1.4) mg/dl Est Cr Clr Drug Dosing 49.8 ml/min Est GFR ( Amer) 76.3 Est GFR (Non-Af Amer) 65.9 BUN/Creatinine Ratio 22.4 H (10-20) Glucose 75 (70-99) mg/dl POC Glucose (70-99) mg/dl Calcium 9.6 (8.5-10.1) mg/dl Total Bilirubin 0.3 (0.2-1) mg/dl AST 14 L (15-37) U/L ALT 26 (12-78) U/L Alkaline Phosphatase 93 (45-117) U/L Total Protein 8.2 (6.4-8.2) gm/dl Albumin 3.4 (3.4-5.0) gm/dl Globulin 4.8 H (2.5-4.0) gm/dl Albumin/Globulin Ratio 0.7 L (0.9-2) Urine Color Urine Appearance (Clear) Urine pH (4.5-7.5) Ur Specific Maxwell (1.000-1.030) Urine Protein (Negative) Urine Glucose (UA) (Negative) Urine Ketones (Negative) Urine Blood (Negative) Urine Nitrite (Negative) Urine Bilirubin (Negative) Urine Urobilinogen (Negative) Ur Leukocyte Esterase (Negative) Urine WBC (Auto) (0-5) /hpf Urine RBC (Auto) (0-4) /hpf U Hyaline Cast (Auto) (0-5) /lpf U Epithel Cells (Auto) (0-5) /lpf Urine Bacteria (Auto) (Negative) Influenza Type A (PCR) Neg for Influ A (Neg) Influenza Type B (PCR) Neg for Influ B (Neg) 06/04/19 Range/Units 16:03 WBC 13.85 H (4.8-10.8) K/uL RBC 5.20 (4.7-6.1) M/uL Hgb 13.8 L (14.0-18.0) g/dL Hct 42.3 (42-52) % MCV 81.3 (80-100) fL MCH 26.5 (25-34) pg MCHC 32.6 (32-36) g/dL RDW Std Deviation 51.1 H (36.4-46.3) fL RDW Coeff of Ashu 17.2 H (11.5-14.5) % Plt Count 289 (130-400) K/uL MPV 9.8 (7.4-10.4) fL Immature Gran % (Auto) 0.2 % Neut % (Auto) 74.9 % Lymph % (Auto) 13.4 % Bledsoe % (Auto) 8.2 % Eos % (Auto) 2.7 % Baso % (Auto) 0.6 % Immature Gran # (Auto) 0.03 H (0.00-0.02) K/uL Neut # (Auto) 10.38 H (1.4-6.5) K/uL Lymph # (Auto) 1.85 (1.2-3.4) K/uL Bledsoe # (Auto) 1.13 H (0.11-0.59) K/uL Eos # (Auto) 0.37 (0-0.5) K/uL Baso # (Auto) 0.09 (0-0.2) K/uL PT (9.0-12.0) Seconds INR (0.9-1.1) APTT (21.0-31.0) Seconds PTT Ratio VBG pH (7.36-7.41) VBG pCO2 (38-50) mmHg VBG pO2 mmHg VBG HCO3 mmol/L VBG O2 Saturation % VBG Base Excess mEq/L Barometric Pressure mm/Hg Sodium (136-145) mmol/L Potassium (3.5-5.1) mmol/L Chloride (98-107) mmol/L Carbon Dioxide (21-32) mmol/L Anion Gap (3-11) BUN (7-18) mg/dl Creatinine (0.6-1.4) mg/dl Est Cr Clr Drug Dosing ml/min Est GFR ( Amer) Est GFR (Non-Af Amer) BUN/Creatinine Ratio (10-20) Glucose (70-99) mg/dl POC Glucose (70-99) mg/dl Calcium (8.5-10.1) mg/dl Total Bilirubin (0.2-1) mg/dl AST (15-37) U/L ALT (12-78) U/L Alkaline Phosphatase (45-117) U/L Total Protein (6.4-8.2) gm/dl Albumin (3.4-5.0) gm/dl Globulin (2.5-4.0) gm/dl Albumin/Globulin Ratio (0.9-2) Urine Color Urine Appearance (Clear) Urine pH (4.5-7.5) Ur Specific Maxwell (1.000-1.030) Urine Protein (Negative) Urine Glucose (UA) (Negative) Urine Ketones (Negative) Urine Blood (Negative) Urine Nitrite (Negative) Urine Bilirubin (Negative) Urine Urobilinogen (Negative) Ur Leukocyte Esterase (Negative) Urine WBC (Auto) (0-5) /hpf Urine RBC (Auto) (0-4) /hpf U Hyaline Cast (Auto) (0-5) /lpf U Epithel Cells (Auto) (0-5) /lpf Urine Bacteria (Auto) (Negative) Influenza Type A (PCR) (Neg) Influenza Type B (PCR) (Neg) Code Status & VTE Plan Code Status Full Code Supervising Physician Co-Signing Physician Notes Patient seen and examined, chart reviewed, case discussed with Dr. Madsen and I agree with his assessment and plan as documented above. Briefly, patient is a 78yo C male presenting with mild SOB, suspected COPD exacerbation. On exam patient is afebrile, HD stable, no respiratory distress +mild end-expiratory wheezing, rhonchorous breath sounds in left lung Remainder of exam unremarkable Labs and images reviewed. Assessment/Plan -Education on proper inhaler use -Supplemental O2 as needed -Secretion management -Remainder of plan as above Resident Activity Tracking Resident Involvement: Resident Care Provided Care Provided: Adult Hospital Medicine
[2019-06-04] MEDS ORDERED: predniSONE 20 MG TAB PO SCH (20:30)
[2019-06-04] MEDS ORDERED: GLUCOSE 10 TABS/TUBE PO PRN (20:30)
[2019-06-04] MEDS ORDERED: POLYETHYLENE (MIRALAX) 17 GM PACK PO PRN (20:30)
[2019-06-04] MEDS ORDERED: GLUCAGON FOR INJ 1 MG VIAL SQ PRN (20:30)
[2019-06-04] MEDS ORDERED: MAGNESIUM HYDROXIDE SUSP 30 ML UDC PO PRN (20:30)
[2019-06-04] MEDS ORDERED: ALBUTEROL HFA 8 GM INHALER INH PRN (20:30)
[2019-06-04] MEDS ORDERED: ACETAMINOPHEN 325 MG TAB PO PRN (20:30)
[2019-06-04] MEDS ORDERED: ALBUTEROL 0.083% NEBU SOLN 3 ML VIAL INH PRN (20:30)
[2019-06-04] MEDS ORDERED: ALUMINUM/MAGNESIUM SUSP 30 ML UDC PO PRN (20:30)
[2019-06-04] MEDS ORDERED: CARBOHYDRATES FOR HYPOGLYCEMIA PO PRN (20:30)
[2019-06-04] MEDS ORDERED: GLUCOSE 40% GEL 15 GM TUBE PO PRN (20:30)
[2019-06-04] MEDS ORDERED: DEXTROSE 50% 50 ML SYRINGE IV PRN (20:30)
[2019-06-04] MEDS ORDERED: ONDANSETRON INJ 2 MG/ML 2 ML VIAL IV PRN (20:30)
[2019-06-04 21:07] LABS: Base Excess VBG -0.4 mEq/L; HCO3 VBG 25 mmol/L; Oxygen Saturation VBG < 60.0 %; PCO2 VBG 43 mmHg (38-50); PO2 VBG 32 mmHg; pH VBG 7.38 (7.36-7.41)
--- NOTE | 2019-06-04 21:28 | Emergency Department Note ---
Entered by Shamika Neumann acting as a scribe for Maximino Gandhi DO History of Present Illness General Chief complaint: Shortness of Breath/Dyspnea Stated complaint: SHORT OF BREATH Source: patient and family () History of Present Illness Onset (ago): hour(s) (0800 this morning) Location: chest Pain Consistency: + other (episode) Quality: + other (SOB) Associated symptoms: + cough (chronic) and + other (Negative runny nose, congestion,, abdominal pain, diarrhea); no nausea/vomiting The patient is a 78 year old male who presents to the ED with complaints of SOB beginning today. He is on Eliquis and has not missed any doses. He reports at 0800 this morning, he was seen by his traveling nurse who noticed the patient's oxygen saturation was at 74%. He states he wears 2 L of oxygen at night due to his COPD. Pt has a chronic cough but denies any runny nose, congestion, chest pain, abdominal pain, nausea, vomiting, diarrhea. He is accompanied by his who notes the patient is confused with day to day events. He is a former smoker. He follows with Dr. Eason, Pulmonology. Home Medications Home Medications Medication Instructions Recorded Confirmed Type aspirin [Aspir-81] 81 mg PO BID 02/02/18 06/04/19 History cyanocobalamin (vitamin B-12) 1,000 mcg PO QAM #180 tab 10/22/18 06/04/19 Rx 1,000 mcg tablet metformin 1,000 mg tablet 1,000 mg PO BID #180 tab 10/22/18 06/04/19 Rx albuterol sulfate 90 mcg/actuation 2 puffs INH Q4H PRN gm 01/16/19 06/04/19 History aerosol inhaler calcium carbonate 600 mg (1,500 2 tab PO PM 01/16/19 06/04/19 History mg)-vitamin D3 400 unit tablet albuterol sulfate 2.5 mg INH QID PRN #90 ml 01/18/19 06/04/19 Rx Vitamin D3 4,000 unit PO PM 01/29/19 06/04/19 History fluticasone propionate 50 1 - 2 sprays INTNAS DAILY PRN gm 02/02/19 06/04/19 History mcg/actuation nasal spray,suspension digoxin 125 mcg PO DAILY@1600 #30 tab 04/03/19 06/04/19 Rx tamsulosin 0.4 mg PO QAM #30 cap 04/03/19 06/04/19 Rx fluticasone fur. 100 mcg-umeclid 1 inh INHALATION QAM #60 ea 04/10/19 06/04/19 Rx 62.5 mcg-vilant 25 mcg inhalat.powder apixaban 5 mg tablet 5 mg PO BID #180 tab 04/12/19 06/04/19 Rx diltiazem HCl 240 mg 240 mg PO PM #90 cap 05/16/19 06/04/19 Rx capsule,extended release 24 hr levetiracetam 500 mg tablet 1,000 mg PO BID #28 tab 05/21/19 06/04/19 Rx metoprolol tartrate 100 mg tablet 100 mg PO BID #180 tab 05/21/19 06/04/19 Rx atorvastatin 40 mg tablet 40 mg PO PM #90 tab 05/24/19 06/04/19 Rx glimepiride 2 mg tablet 4 mg PO QAM #180 tab 05/24/19 06/04/19 Rx lisinopril 20 mg tablet 20 mg PO PM #90 tab 05/24/19 06/04/19 Rx montelukast 10 mg tablet 10 mg PO PM #90 tab 05/24/19 06/04/19 Rx sertraline 100 mg tablet 100 mg PO QAM #90 tab 05/24/19 06/04/19 Rx levothyroxine 25 mcg tablet 25 mcg PO QAM #90 tab 05/27/19 06/04/19 Rx Allergies Allergy/AdvReac Type Severity Reaction Status Date / Time pollen extracts Allergy Mild CONGESTION Verified 06/04/19 19:19 Past Med/Surg History Medical History Abdominal aortic aneurysm (AAA), 30-34 mm diameter (Chronic) Anxiety Arteriosclerotic coronary artery disease (Chronic) Asthma (Chronic) Atrial flutter DX [address] CUELLAR IN [place] Benign prostatic hyperplasia with urinary obstruction (Chronic) CAD (coronary artery disease) Chronic anticoagulation (Chronic) COPD, moderate (Chronic) Depression (Chronic) Dyslipidemia (Chronic) Hypertension (Chronic) Hypothyroidism (acquired) (Chronic) Mild cognitive impairment (Chronic) On home oxygen therapy AT NIGHT Osteoarthritis Osteoporosis (Chronic) Paroxysmal atrial fibrillation (Chronic) DX [address] CUELLAR IN [place] Seizure (Acute) 01/29/19 - X2 ON THAT DAY AND WAS ADMITTED AND STARTED ON [place] AND NO SEIZURE SINCE TIA (transient ischemic attack) 2017 X 1 AND NONE SINCE Tremor HANDS Type 2 diabetes mellitus (Chronic) Surgical History H/O 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 and A total of 10 systems reviewed and were otherwise negative Physical Exam Vital Signs Vital Signs - 24 hr 06/04/19 15:41 06/04/19 16:06 06/04/19 16:49 Temperature 36.4 C L Temperature Source Oral Pulse Rate 50 L Pulse Rate [Apical] 73 Pulse Rate [Exercises] Pulse Rate [Finger] 52 L Pulse Rhythm Regular Pulse Rhythm [Apical] Pulse Strength Normal Pulse Strength [Apical] Respiratory Rate 20 18 17 Respiratory Rate [Exercises] Respiratory Effort / Characteristics Non-Labored Spontaneous Non-Labored Non-Labored Spontaneous Respiratory Depth Normal Normal Respiratory Pattern Blood Pressure 110/61 Blood Pressure [Right Arm] 113/59 L Blood Pressure Mean 77 Blood Pressure Mean [Right Arm] 77 Blood Pressure Position Sitting Blood Pressure Position [Right Arm] Pulse Oximetry 93 94 90 Pulse Oximetry [Exercises] Oxygen Delivery Method Nasal Cannula Nasal Cannula Room Air Oxygen Flow Rate 2 2 Sepsis Recent Fever Within 48 Hours No Sepsis Action Taken by Nursing No Action Required 06/04/19 18:00 Temperature Temperature Source Pulse Rate Pulse Rate [Apical] 53 L Pulse Rate [Exercises] 68 Pulse Rate [Finger] Pulse Rhythm Pulse Rhythm [Apical] Regular Pulse Strength Pulse Strength [Apical] Normal Respiratory Rate 18 Respiratory Rate [Exercises] 22 Respiratory Effort / Characteristics Non-Labored Spontaneous Respiratory Depth Normal Respiratory Pattern Regular Blood Pressure Blood Pressure [Right Arm] Blood Pressure Mean Blood Pressure Mean [Right Arm] Blood Pressure Position Blood Pressure Position [Right Arm] Lying Pulse Oximetry 92 Pulse Oximetry [Exercises] 90 Oxygen Delivery Method Nasal Cannula Oxygen Flow Rate Sepsis Recent Fever Within 48 Hours Sepsis Action Taken by Nursing GENERAL: alert, non-toxic. Sitting up in bed. Thin appearing. No acute distress. Talking in full sentences EYE EXAM: normal conjunctiva OROPHARYNX: no exudate, no erythema, lips, buccal mucosa, and tongue normal and mucous membranes are moist NECK: supple, no nuchal rigidity, no adenopathy, non-tender LUNGS: Diffuse wheezing bilaterally. Normal chest wall mechanics HEART: no murmurs, S1 normal and S2 normal ABDOMEN: abdomen soft, non-tender, normo-active bowel sounds, no masses, no rebound or guarding. BACK: Back is symmetrical on inspection and there is no deformity, no midline tenderness, no CVA tenderness. SKIN: no rashes and no bruising UPPER EXTREMITIES: upper extremities are grossly normal. LOWER EXTREMITIES: No pitting edema. Calves equal bilateral NEURO EXAM: Normal sensorium, cranial nerves II-XII grossly intact, normal speech, no gross weakness of arms, no gross weakness of legs. Course Course ED COURSE: Vital signs were reviewed and showed normotensive The patients medical record was reviewed The above diagnostic studies were performed and reviewed. ED treatments and interventions as stated above. 1618: The patient was evaluated in room C6. A complete history and physical examination was performed. 1733: I spoke to the patients daughter at this time. She notes that her father has not taking him nebulizer treatments for the past 4 days. 1830: Upon reevaluation, the patient is feeling slightly improved. I discussed my findings with the patient and he understands and agrees with the treatment plan. 1850: Discussed the patient's case with Dr. Tolentino, [facility] Hospitalist. The patient will be evaluated for further management. Based on the patients age, coexisting illnesses, exam and lab findings the decision to treat as an inpatient was made. The patient remained stable while under my care. The patient will be evaluated for further management. Administered Medications Discontinued Medications Albuterol (Duoneb) 3 ml INH NOW STA Stop: 06/04/19 16:37 Last Admin: 06/04/19 16:49 Dose: 3 ml Documented by: [id number] Medical Decision Making Differential Diagnosis Differential diagnoses includes but is not limited to pneumonia, bronchitis, COPD/Asthma exacerbation, pneumothorax, pulmonary embolism, congestive heart failure, acute coronary syndrome Medical Records Attestation: I reviewed the patient's medical records. Home Medications Current Medication List: was personally reviewed by me Laboratory Data Attestation: I reviewed the patient's lab results. Result diagrams: 06/04/19 16:03 06/04/19 16:03 Lab Results 06/04/19 06/04/19 06/04/19 Range/Units 16:03 16:03 16:03 WBC 13.85 H (4.8-10.8) K/uL RBC 5.20 (4.7-6.1) M/uL Hgb 13.8 L (14.0-18.0) g/dL Hct 42.3 (42-52) % MCV 81.3 (80-100) fL MCH 26.5 (25-34) pg MCHC 32.6 (32-36) g/dL RDW Std Deviation 51.1 H (36.4-46.3) fL RDW Coeff of Ashu 17.2 H (11.5-14.5) % Plt Count 289 (130-400) K/uL MPV 9.8 (7.4-10.4) fL Immature Gran % (Auto) 0.2 % Neut % (Auto) 74.9 % Lymph % (Auto) 13.4 % [place] % (Auto) 8.2 % Eos % (Auto) 2.7 % Baso % (Auto) 0.6 % Immature Gran # (Auto) 0.03 H (0.00-0.02) K/uL Neut # (Auto) 10.38 H (1.4-6.5) K/uL Lymph # (Auto) 1.85 (1.2-3.4) K/uL [place] # (Auto) 1.13 H (0.11-0.59) K/uL Eos # (Auto) 0.37 (0-0.5) K/uL Baso # (Auto) 0.09 (0-0.2) K/uL PT 11.4 (9.0-12.0) Seconds INR 1.1 (0.9-1.1) APTT 28.1 (21.0-31.0) Seconds PTT Ratio 1.0 Sodium 136 (136-145) mmol/L Potassium 4.5 (3.5-5.1) mmol/L Chloride 104 (98-107) mmol/L Carbon Dioxide 27 (21-32) mmol/L Anion Gap 5.0 (3-11) BUN 24 H (7-18) mg/dl Creatinine 1.08 (0.6-1.4) mg/dl Est Cr Clr Drug Dosing 49.8 ml/min Est GFR ( Amer) 76.3 Est GFR (Non-Af Amer) 65.9 BUN/Creatinine Ratio 22.4 H (10-20) Glucose 75 (70-99) mg/dl Calcium 9.6 (8.5-10.1) mg/dl Total Bilirubin 0.3 (0.2-1) mg/dl AST 14 L (15-37) U/L ALT 26 (12-78) U/L Alkaline Phosphatase 93 (45-117) U/L Total Protein 8.2 (6.4-8.2) gm/dl Albumin 3.4 (3.4-5.0) gm/dl Globulin 4.8 H (2.5-4.0) gm/dl Albumin/Globulin Ratio 0.7 L (0.9-2) Urine Color Urine Appearance (Clear) Urine pH (4.5-7.5) Ur Specific [place] (1.000-1.030) Urine Protein (Negative) Urine Glucose (UA) (Negative) Urine Ketones (Negative) Urine Blood (Negative) Urine Nitrite (Negative) Urine Bilirubin (Negative) Urine Urobilinogen (Negative) Ur Leukocyte Esterase (Negative) Urine WBC (Auto) (0-5) /hpf Urine RBC (Auto) (0-4) /hpf U Hyaline Cast (Auto) (0-5) /lpf U Epithel Cells (Auto) (0-5) /lpf Urine Bacteria (Auto) (Negative) Influenza Type A (PCR) (Neg) Influenza Type B (PCR) (Neg) 06/04/19 06/04/19 Range/Units 17:25 18:15 WBC (4.8-10.8) K/uL RBC (4.7-6.1) M/uL Hgb (14.0-18.0) g/dL Hct (42-52) % MCV (80-100) fL MCH (25-34) pg MCHC (32-36) g/dL RDW Std Deviation (36.4-46.3) fL RDW Coeff of Ashu (11.5-14.5) % Plt Count (130-400) K/uL MPV (7.4-10.4) fL Immature Gran % (Auto) % Neut % (Auto) % Lymph % (Auto) % [place] % (Auto) % Eos % (Auto) % Baso % (Auto) % Immature Gran # (Auto) (0.00-0.02) K/uL Neut # (Auto) (1.4-6.5) K/uL Lymph # (Auto) (1.2-3.4) K/uL [place] # (Auto) (0.11-0.59) K/uL Eos # (Auto) (0-0.5) K/uL Baso # (Auto) (0-0.2) K/uL PT (9.0-12.0) Seconds INR (0.9-1.1) APTT (21.0-31.0) Seconds PTT Ratio Sodium (136-145) mmol/L Potassium (3.5-5.1) mmol/L Chloride (98-107) mmol/L Carbon Dioxide (21-32) mmol/L Anion Gap (3-11) BUN (7-18) mg/dl Creatinine (0.6-1.4) mg/dl Est Cr Clr Drug Dosing ml/min Est GFR ( Amer) Est GFR (Non-Af Amer) BUN/Creatinine Ratio (10-20) Glucose (70-99) mg/dl Calcium (8.5-10.1) mg/dl Total Bilirubin (0.2-1) mg/dl AST (15-37) U/L ALT (12-78) U/L Alkaline Phosphatase (45-117) U/L Total Protein (6.4-8.2) gm/dl Albumin (3.4-5.0) gm/dl Globulin (2.5-4.0) gm/dl Albumin/Globulin Ratio (0.9-2) Urine Color Dark Yellow Urine Appearance Clear (Clear) Urine pH 5.0 (4.5-7.5) Ur Specific [place] 1.025 (1.000-1.030) Urine Protein Trace H (Negative) Urine Glucose (UA) Negative (Negative) Urine Ketones Trace H (Negative) Urine Blood Negative (Negative) Urine Nitrite Negative (Negative) Urine Bilirubin Negative (Negative) Urine Urobilinogen Negative (Negative) Ur Leukocyte Esterase Negative (Negative) Urine WBC (Auto) 1-5 (0-5) /hpf Urine RBC (Auto) 0-4 (0-4) /hpf U Hyaline Cast (Auto) 5-10 H (0-5) /lpf U Epithel Cells (Auto) 10-20 H (0-5) /lpf Urine Bacteria (Auto) Negative (Negative) Influenza Type A (PCR) Neg for Influ A (Neg) Influenza Type B (PCR) Neg for Influ B (Neg) Imaging Data Radiologist's Impression: Radiology results as stated below per my review and the radiologist's interpretation: XR chest 1V portable CLINICAL HISTORY: Dyspnea dyspnea COMPARISON STUDY: 04/09/2019 FINDINGS: Mild bibasilar parenchymal infiltrative change. Improved left basilar superimposed atelectasis. In the upper lungs are clear. There is a component of mild emphysematous change. IMPRESSION: Mild chronic bibasilar parenchymal infiltrates. Mild emphysematous change. ACT 112: Negative or not required by law. The above report was generated using voice recognition software. It may contain grammatical, syntax or spelling errors. Electronically signed by: Kvng Cuellar M.D. 06/04/2019 5:01 PM ECG Data Attestation: I personally reviewed and interpreted this ECG as follows: Indication: + SOB/dyspnea Rate (beats per minute): 53 Rhythm: + sinus bradycardia ECG Firth: + Normal ECG Findings: + Other (ST changes in the lateral leads); no PVCs Comparison ECG Date: from (03/28/19) Change: no significant change Blood Pressure Blood Pressure Findings: Low blood pressure Blood Pressure Disposition: further management by hospitalist ALAINA Narrative Patient is a 78-year-old male who presents the ER with a past medical history of COPD for shortness of breath associated with confusion. Patient is supposed to wear 2 L nasal cannula at night. He was found to be hypoxic this morning at 74%. He has had been having intermittent confusion mostly at night and in the morning. V was established blood work was obtained and showed a leukocytosis of 14,000. No significant anemia. INR was unremarkable. BMP was unremarkable as well as LFTs bilirubin. UA was unremarkable. Influenza was unremarkable. EKG was nondiagnostic. Chest x-ray without any focal infiltrate. Patient was given steroids and neb treatment. He did feel slightly better after neb tr eatment. Do favor that this combination of COPD exacerbation and likely requiring oxygen regularly/24 hours a day. With this confusion and now hypoxia found in the morning to discuss with the hospitalist and the family for observation. Impression & Plan COPD exacerbation, NOLAND (dyspnea on exertion), Intermittent confusion Discharge Plan Visit Data *Final* Discharge Date/Time: 06/04/19 20:04 Chief Complaint: Shortness of Breath/Dyspnea Stated Complaint: SHORT OF BREATH ED Provider: Maximino Gandhi Discharge Problem: COPD exacerbation, NOLAND (dyspnea on exertion), Intermittent confusion Patient Disposition: Admitted As Inpatient Discharge Instructions Interventions: ED Discharge Assessment Last Done: 06/04/19 20:04 The scribe's documentation has been prepared under my direction and personally reviewed by me in its entirety. I confirm that the note above accurately reflects all work, treatment, procedures, and medical decision making performed by me.
[2019-06-04] MEDS: APIXABAN 5 MG TABLET PO SCH (21:44)
[2019-06-04] MEDS: dilTIAZem HCL 240 MG CAPCR PO SCH (21:45)
[2019-06-04] MEDS: lisinopriL 20 MG TAB PO SCH (21:45)
[2019-06-04] MEDS: levETIRAcetam 500 MG TAB PO SCH (21:46)
[2019-06-04] MEDS: guaiFENesin 600 MG TABCR PO SCH (21:47)
[2019-06-04] MEDS: ASPIRIN 81 MG ECTAB PO SCH (21:47)
[2019-06-04] MEDS: METOPROLOL TARTRATE 100 MG TAB PO SCH (21:47)
[2019-06-04] MEDS: MONTELUKAST SODIUM 10 MG TABLET PO SCH (21:47)
[2019-06-04] MEDS: ATORVASTATIN 40 MG TAB PO SCH (21:47)
[2019-06-04] MEDS: INSULIN ASPART 100 UNITS/ML 3 ML PEN SC SCH (21:51)
[2019-06-04] MEDS: INSULIN GLARGINE SOLOSTAR 100 UNITS/ML 3 ML PEN SC SCH (21:51)
[2019-06-04] MEDS ORDERED: INFLUENZA VACCINE HIGH DOSE 65+ 0.5 ML SYR IM ONE (23:15)
[2019-06-04] MEDS ORDERED: INFLUENZA ADMINISTRATION CHARGE ONE (23:15)
[2019-06-04] MEDS ORDERED: LEVALBUTEROL HCL 0.63 MG/3 ML NEB NEB PRN (23:27)
[2019-06-05] MEDS ORDERED: Nursing to Pharmacy Communication ONE (00:44)
[2019-06-05 05:52] LABS: Basophils # (auto) 0.08 K/uL (0-0.2); Basophils % (auto) 0.7 %; Eosinophils # (auto) 0.47 K/uL (0-0.5); Hematocrit (blood only) 41.1 % (42-52); Hemoglobin 13.4 g/dL (14.0-18.0); Immature Granulocytes # (auto) 0.04 K/uL (0.00-0.02); Immature Granulocytes % (auto) 0.3 %; Lymphocytes # (auto) 1.88 K/uL (1.2-3.4); Lymphocytes % (auto) 16.2 %; Mean Corpuscular Hemoglobin 26.5 pg (25-34); Mean Corpuscular Hgb Conc 32.6 g/dL (32-36); Mean Corpuscular Volume 81.2 fL (80-100); Mean Platelet Volume 9.7 fL (7.4-10.4); Monocytes # (auto) 0.96 K/uL (0.11-0.59); Monocytes % (auto) 8.3 %; Neutrophils # (auto) 8.18 K/uL (1.4-6.5); Neutrophils % (auto) 70.5 %; Platelet Count 257 K/uL (130-400); RDW Coefficient of Variation 17.2 % (11.5-14.5); RDW Standard Deviation 50.6 fL (36.4-46.3); Red Blood Count 5.06 M/uL (4.7-6.1); White Blood Count 11.61 K/uL (4.8-10.8)
[2019-06-05] MEDS: LEVOTHYROXINE SODIUM 25 MCG TABLET PO SCH (06:16)
[2019-06-05 06:31] LABS: BUN Creatinine Ratio 22.9 (10-20); Calcium 9.1 mg/dl (8.5-10.1); Creatinine Clr Calc Pharmacy 57.9 ml/min; Est GFR (African American) 91.5; Est GFR (Non-African American) 78.9; Phosphorus 4.1 mg/dl (2.5-4.9); Potassium 4.2 mmol/L (3.5-5.1)
[2019-06-05] MEDS: guaiFENesin 600 MG TABCR PO SCH ×2 (08:10→20:47)
[2019-06-05] MEDS: APIXABAN 5 MG TABLET PO SCH ×2 (08:10→20:48)
[2019-06-05] MEDS: SERTRALINE HCL 100 MG TABLET PO SCH (08:10)
[2019-06-05] MEDS: ASPIRIN 81 MG ECTAB PO SCH ×2 (08:11→20:48)
[2019-06-05] MEDS: METOPROLOL TARTRATE 100 MG TAB PO SCH ×2 (08:11→20:48)
[2019-06-05] MEDS: levETIRAcetam 500 MG TAB PO SCH ×2 (08:11→20:49)
[2019-06-05] MEDS: FLUTICASONE/VILANTEROL 100/25MCG 14 PUFFS/INHALER INH SCH (08:12)
[2019-06-05] MEDS: INSULIN GLARGINE SOLOSTAR 100 UNITS/ML 3 ML PEN SC SCH ×2 (08:13→20:45)
[2019-06-05] MEDS: TAMSULOSIN HCL 0.4 MG CAP PO SCH (08:13)
[2019-06-05] MEDS: UMECLIDINIUM BROMIDE 62.5MCG/BLISTER 7 PUFFS/INHALER INH SCH (08:14)
[2019-06-05] MEDS: INSULIN ASPART 100 UNITS/ML 3 ML PEN SC SCH ×4 (08:14→20:44)
[2019-06-05] MEDS ORDERED: NON-FORMULARY MEDICATION (Fluticasone-Umeclidin-Vilanter [Trelegy Ellipta] 1 PUFFS) INH SCH (09:00)
--- NOTE | 2019-06-05 10:30 | Billing Data ---
Date of Service June 04, 2019 Coding Level of Care Code 10962 Initial Inpt Care Lvl 3
[2019-06-05] MEDS: ALBUT/IPRATROP 3MG/0.5MG NEB 3 ML VIAL NEB SCH ×3 (11:16→19:12)
--- NOTE | 2019-06-05 15:18 | Hospitalist Progress Note ---
Date of Service June 05, 2019 Assessment & Plan (1) COPD exacerbation: - Presented with COPD exacerbation; currently requiring 2L via NC at all times. - On Duonebs QID scheduled. - Continue Breo-ellipta and Incruse ellipta daily. - Mucinex 600 mg q12hr. - Completed course of steroids as outpt; hold further steroids at this time. - CXR negative - no indication for abx coverage. (2) Acute and chronic respiratory failure with hypoxia: - Previously on 2L via NC at night prior to admission but oxygen script was for 2L continuously. - Continue to wean oxygen if tolerating. - Has supplies at home for discharge. (3) Acute metabolic encephalopathy: - Likely related to acute process (see above); confusion now improving. - U/a negative; CXR neg for PNA. - Consider head imaging if no improvement. (4) Atrial fibrillation: - HR has been irregular -- A. fib in the 80s down to sinus bradycardia in the 30's with episodes of V. tach x 4 beats. - Continue Cardizem and Metoprolol as prescribed. Digoxin was recently d/c'ed by clerical and administrative workers. - Continue Eliquis 5 mg BID. - Continue to monitor overnight - consider cardiology consult if no improvement in heart rate irregularities. (5) V tach: - 2 episodes of V. tach this morning. - Will continue to monitor on tele. (6) Type 2 diabetes mellitus: - Most recent A1C 7.2. - SSI coverage with Lantus 5 units BID. (7) Seizure: - Continue Keppra 1 gm BID. (8) Dyslipidemia: - Continue ASA and statin as prescribed. (9) Hypertension: - Continue Metoprolol (with close monitoring of HR), Lisinopril, Cardizem as prescribed. (10) Hypothyroidism (acquired): - Continue Levothyroxine 25 mcg daily. - Most recent TSH was 4.8. 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 (12) Depression: - Continue Zoloft. DVT ppx: Continue home Eliquis. Dispo: Med/surg with tele; discharge pending improvement in oxygen requirements and heart arrhythmias. Subjective Pt. is stable overall -- has been requiring 2L via NC at all times, previously on 2L via NC at night only. He reports SOB is improved. Has a cough, minimal sputum production. Denies chest pain, abd pain. Review of Systems Review of Systems: All systems reviewed & are unremarkable except as noted in HPI & below Constitutional: + fatigue and + weakness; no fever, no chills and no anorexia Respiratory: + cough, + dyspnea, + dyspnea on exertion, + sputum production and + wheezing Cardiovascular: no chest pain, no palpitations and no edema Gastrointestinal: no abdominal pain, no nausea, no vomiting and no constipation Genitourinary: no difficulty urinating Musculoskeletal: no back pain and no joint pain Integumentary: no non-healing lesions Physical Exam Physical Exam: General: Resting comfortably; chronically ill appearing elderly male. HEENT: NC/AT; PERRLA with EOMI; [place] conjunctiva, MMM. No erythema of posterior pharynx Neck: Supple and nontender Cardiac: RRR Lungs: on 2L via NC; scattered wheezing noted in all lung jefferson. Abdomen: Bowel normoactive X 4; Nontender to palpation Extremities: Warm. No edema present Neuro: No focal weakness Skin: No rash Results & Data Vital Signs (Past 12 Hours) Vital Signs Temp Pulse Pulse Resp BP Pulse Ox 06/05/19 11:16 87 18 90 06/05/19 11:08 36.5 C 50 L 20 96/63 L 90 06/05/19 08:22 92 06/05/19 07:07 36.7 C 75 18 132/84 93 06/05/19 03:21 36.8 C 87 19 101/60 91 Laboratory Results 06/05/19 06/05/19 06/05/19 Range/Units 11:25 08:15 05:42 WBC (4.8-10.8) K/uL RBC (4.7-6.1) M/uL Hgb (14.0-18.0) g/dL Hct (42-52) % MCV (80-100) fL MCH (25-34) pg MCHC (32-36) g/dL RDW Std Deviation (36.4-46.3) fL RDW Coeff of Ashu (11.5-14.5) % Plt Count (130-400) K/uL MPV (7.4-10.4) fL Immature Gran % (Auto) % Neut % (Auto) % Lymph % (Auto) % [place] % (Auto) % Eos % (Auto) % Baso % (Auto) % Immature Gran # (Auto) (0.00-0.02) K/uL Neut # (Auto) (1.4-6.5) K/uL Lymph # (Auto) (1.2-3.4) K/uL [place] # (Auto) (0.11-0.59) K/uL Eos # (Auto) (0-0.5) K/uL Baso # (Auto) (0-0.2) K/uL PT (9.0-12.0) Seconds INR (0.9-1.1) APTT (21.0-31.0) Seconds PTT Ratio VBG pH (7.36-7.41) VBG pCO2 (38-50) mmHg VBG pO2 mmHg VBG HCO3 mmol/L VBG O2 Saturation % VBG Base Excess mEq/L Barometric Pressure mm/Hg Sodium (136-145) mmol/L Potassium (3.5-5.1) mmol/L Chloride (98-107) mmol/L Carbon Dioxide (21-32) mmol/L Anion Gap (3-11) BUN (7-18) mg/dl Creatinine (0.6-1.4) mg/dl Est Cr Clr Drug Dosing ml/min Est GFR ( Amer) Est GFR (Non-Af Amer) BUN/Creatinine Ratio (10-20) Glucose (70-99) mg/dl POC Glucose 120 H 100 H (70-99) mg/dl Calcium (8.5-10.1) mg/dl Phosphorus (2.5-4.9) mg/dl Magnesium (1.8-2.4) mg/dl Total Bilirubin (0.2-1) mg/dl AST (15-37) U/L ALT (12-78) U/L Alkaline Phosphatase (45-117) U/L Total Protein (6.4-8.2) gm/dl Albumin (3.4-5.0) gm/dl Globulin (2.5-4.0) gm/dl Albumin/Globulin Ratio (0.9-2) Urine Color Urine Appearance (Clear) Urine pH (4.5-7.5) Ur Specific [place] (1.000-1.030) Urine Protein (Negative) Urine Glucose (UA) (Negative) Urine Ketones (Negative) Urine Blood (Negative) Urine Nitrite (Negative) Urine Bilirubin (Negative) Urine Urobilinogen (Negative) Ur Leukocyte Esterase (Negative) Urine WBC (Auto) (0-5) /hpf Urine RBC (Auto) (0-4) /hpf U Hyaline Cast (Auto) (0-5) /lpf U Epithel Cells (Auto) (0-5) /lpf Urine Bacteria (Auto) (Negative) Digoxin 0.1 L (0.8-2.0) ng/ml Influenza Type A (PCR) (Neg) Influenza Type B (PCR) (Neg) 06/05/19 06/05/19 06/05/19 Range/Units 05:42 05:42 04:22 WBC 11.61 H (4.8-10.8) K/uL RBC 5.06 (4.7-6.1) M/uL Hgb 13.4 L (14.0-18.0) g/dL Hct 41.1 L (42-52) % MCV 81.2 (80-100) fL MCH 26.5 (25-34) pg MCHC 32.6 (32-36) g/dL RDW Std Deviation 50.6 H (36.4-46.3) fL RDW Coeff of Ashu 17.2 H (11.5-14.5) % Plt Count 257 (130-400) K/uL MPV 9.7 (7.4-10.4) fL Immature Gran % (Auto) 0.3 % Neut % (Auto) 70.5 % Lymph % (Auto) 16.2 % [place] % (Auto) 8.3 % Eos % (Auto) 4.0 % Baso % (Auto) 0.7 % Immature Gran # (Auto) 0.04 H (0.00-0.02) K/uL Neut # (Auto) 8.18 H (1.4-6.5) K/uL Lymph # (Auto) 1.88 (1.2-3.4) K/uL [place] # (Auto) 0.96 H (0.11-0.59) K/uL Eos # (Auto) 0.47 (0-0.5) K/uL Baso # (Auto) 0.08 (0-0.2) K/uL PT (9.0-12.0) Seconds INR (0.9-1.1) APTT (21.0-31.0) Seconds PTT Ratio VBG pH (7.36-7.41) VBG pCO2 (38-50) mmHg VBG pO2 mmHg VBG HCO3 mmol/L VBG O2 Saturation % VBG Base Excess mEq/L Barometric Pressure mm/Hg Sodium 138 (136-145) mmol/L Potassium 4.2 (3.5-5.1) mmol/L Chloride 107 (98-107) mmol/L Carbon Dioxide 25 (21-32) mmol/L Anion Gap 6.0 (3-11) BUN 21 H (7-18) mg/dl Creatinine 0.93 (0.6-1.4) mg/dl Est Cr Clr Drug Dosing 57.9 ml/min Est GFR ( Amer) 91.5 Est GFR (Non-Af Amer) 78.9 BUN/Creatinine Ratio 22.9 H (10-20) Glucose 90 (70-99) mg/dl POC Glucose 96 (70-99) mg/dl Calcium 9.1 (8.5-10.1) mg/dl Phosphorus 4.1 (2.5-4.9) mg/dl Magnesium 2.0 (1.8-2.4) mg/dl Total Bilirubin (0.2-1) mg/dl AST (15-37) U/L ALT (12-78) U/L Alkaline Phosphatase (45-117) U/L Total Protein (6.4-8.2) gm/dl Albumin (3.4-5.0) gm/dl Globulin (2.5-4.0) gm/dl Albumin/Globulin Ratio (0.9-2) Urine Color Urine Appearance (Clear) Urine pH (4.5-7.5) Ur Specific [place] (1.000-1.030) Urine Protein (Negative) Urine Glucose (UA) (Negative) Urine Ketones (Negative) Urine Blood (Negative) Urine Nitrite (Negative) Urine Bilirubin (Negative) Urine Urobilinogen (Negative) Ur Leukocyte Esterase (Negative) Urine WBC (Auto) (0-5) /hpf Urine RBC (Auto) (0-4) /hpf U Hyaline Cast (Auto) (0-5) /lpf U Epithel Cells (Auto) (0-5) /lpf Urine Bacteria (Auto) (Negative) Digoxin (0.8-2.0) ng/ml Influenza Type A (PCR) (Neg) Influenza Type B (PCR) (Neg) 06/04/19 06/04/19 06/04/19 Range/Units 20:46 20:43 18:15 WBC (4.8-10.8) K/uL RBC (4.7-6.1) M/uL Hgb (14.0-18.0) g/dL Hct (42-52) % MCV (80-100) fL MCH (25-34) pg MCHC (32-36) g/dL RDW Std Deviation (36.4-46.3) fL RDW Coeff of Ashu (11.5-14.5) % Plt Count (130-400) K/uL MPV (7.4-10.4) fL Immature Gran % (Auto) % Neut % (Auto) % Lymph % (Auto) % [place] % (Auto) % Eos % (Auto) % Baso % (Auto) % Immature Gran # (Auto) (0.00-0.02) K/uL Neut # (Auto) (1.4-6.5) K/uL Lymph # (Auto) (1.2-3.4) K/uL [place] # (Auto) (0.11-0.59) K/uL Eos # (Auto) (0-0.5) K/uL Baso # (Auto) (0-0.2) K/uL PT (9.0-12.0) Seconds INR (0.9-1.1) APTT (21.0-31.0) Seconds PTT Ratio VBG pH 7.38 (7.36-7.41) VBG pCO2 43 (38-50) mmHg VBG pO2 32 mmHg VBG HCO3 25 mmol/L VBG O2 Saturation < 60.0 % VBG Base Excess -0.4 mEq/L Barometric Pressure 731.2 mm/Hg Sodium (136-145) mmol/L Potassium (3.5-5.1) mmol/L Chloride (98-107) mmol/L Carbon Dioxide (21-32) mmol/L Anion Gap (3-11) BUN (7-18) mg/dl Creatinine (0.6-1.4) mg/dl Est Cr Clr Drug Dosing ml/min Est GFR ( Amer) Est GFR (Non-Af Amer) BUN/Creatinine Ratio (10-20) Glucose (70-99) mg/dl POC Glucose 208 H (70-99) mg/dl Calcium (8.5-10.1) mg/dl Phosphorus (2.5-4.9) mg/dl Magnesium (1.8-2.4) mg/dl Total Bilirubin (0.2-1) mg/dl AST (15-37) U/L ALT (12-78) U/L Alkaline Phosphatase (45-117) U/L Total Protein (6.4-8.2) gm/dl Albumin (3.4-5.0) gm/dl Globulin (2.5-4.0) gm/dl Albumin/Globulin Ratio (0.9-2) Urine Color Dark Yellow Urine Appearance Clear (Clear) Urine pH 5.0 (4.5-7.5) Ur Specific [place] 1.025 (1.000-1.030) Urine Protein Trace H (Negative) Urine Glucose (UA) Negative (Negative) Urine Ketones Trace H (Negative) Urine Blood Negative (Negative) Urine Nitrite Negative (Negative) Urine Bilirubin Negative (Negative) Urine Urobilinogen Negative (Negative) Ur Leukocyte Esterase Negative (Negative) Urine WBC (Auto) 1-5 (0-5) /hpf Urine RBC (Auto) 0-4 (0-4) /hpf U Hyaline Cast (Auto) 5-10 H (0-5) /lpf U Epithel Cells (Auto) 10-20 H (0-5) /lpf Urine Bacteria (Auto) Negative (Negative) Digoxin (0.8-2.0) ng/ml Influenza Type A (PCR) (Neg) Influenza Type B (PCR) (Neg) 06/04/19 06/04/19 06/04/19 Range/Units 17:25 16:03 16:03 WBC (4.8-10.8) K/uL RBC (4.7-6.1) M/uL Hgb (14.0-18.0) g/dL Hct (42-52) % MCV (80-100) fL MCH (25-34) pg MCHC (32-36) g/dL RDW Std Deviation (36.4-46.3) fL RDW Coeff of Ashu (11.5-14.5) % Plt Count (130-400) K/uL MPV (7.4-10.4) fL Immature Gran % (Auto) % Neut % (Auto) % Lymph % (Auto) % [place] % (Auto) % Eos % (Auto) % Baso % (Auto) % Immature Gran # (Auto) (0.00-0.02) K/uL Neut # (Auto) (1.4-6.5) K/uL Lymph # (Auto) (1.2-3.4) K/uL [place] # (Auto) (0.11-0.59) K/uL Eos # (Auto) (0-0.5) K/uL Baso # (Auto) (0-0.2) K/uL PT 11.4 (9.0-12.0) Seconds INR 1.1 (0.9-1.1) APTT 28.1 (21.0-31.0) Seconds PTT Ratio 1.0 VBG pH (7.36-7.41) VBG pCO2 (38-50) mmHg VBG pO2 mmHg VBG HCO3 mmol/L VBG O2 Saturation % VBG Base Excess mEq/L Barometric Pressure mm/Hg Sodium 136 (136-145) mmol/L Potassium 4.5 (3.5-5.1) mmol/L Chloride 104 (98-107) mmol/L Carbon Dioxide 27 (21-32) mmol/L Anion Gap 5.0 (3-11) BUN 24 H (7-18) mg/dl Creatinine 1.08 (0.6-1.4) mg/dl Est Cr Clr Drug Dosing 49.8 ml/min Est GFR ( Amer) 76.3 Est GFR (Non-Af Amer) 65.9 BUN/Creatinine Ratio 22.4 H (10-20) Glucose 75 (70-99) mg/dl POC Glucose (70-99) mg/dl Calcium 9.6 (8.5-10.1) mg/dl Phosphorus (2.5-4.9) mg/dl Magnesium (1.8-2.4) mg/dl Total Bilirubin 0.3 (0.2-1) mg/dl AST 14 L (15-37) U/L ALT 26 (12-78) U/L Alkaline Phosphatase 93 (45-117) U/L Total Protein 8.2 (6.4-8.2) gm/dl Albumin 3.4 (3.4-5.0) gm/dl Globulin 4.8 H (2.5-4.0) gm/dl Albumin/Globulin Ratio 0.7 L (0.9-2) Urine Color Urine Appearance (Clear) Urine pH (4.5-7.5) Ur Specific [place] (1.000-1.030) Urine Protein (Negative) Urine Glucose (UA) (Negative) Urine Ketones (Negative) Urine Blood (Negative) Urine Nitrite (Negative) Urine Bilirubin (Negative) Urine Urobilinogen (Negative) Ur Leukocyte Esterase (Negative) Urine WBC (Auto) (0-5) /hpf Urine RBC (Auto) (0-4) /hpf U Hyaline Cast (Auto) (0-5) /lpf U Epithel Cells (Auto) (0-5) /lpf Urine Bacteria (Auto) (Negative) Digoxin (0.8-2.0) ng/ml Influenza Type A (PCR) Neg for Influ A (Neg) Influenza Type B (PCR) Neg for Influ B (Neg) 06/04/19 Range/Units 16:03 WBC 13.85 H (4.8-10.8) K/uL RBC 5.20 (4.7-6.1) M/uL Hgb 13.8 L (14.0-18.0) g/dL Hct 42.3 (42-52) % MCV 81.3 (80-100) fL MCH 26.5 (25-34) pg MCHC 32.6 (32-36) g/dL RDW Std Deviation 51.1 H (36.4-46.3) fL RDW Coeff of Ashu 17.2 H (11.5-14.5) % Plt Count 289 (130-400) K/uL MPV 9.8 (7.4-10.4) fL Immature Gran % (Auto) 0.2 % Neut % (Auto) 74.9 % Lymph % (Auto) 13.4 % [place] % (Auto) 8.2 % Eos % (Auto) 2.7 % Baso % (Auto) 0.6 % Immature Gran # (Auto) 0.03 H (0.00-0.02) K/uL Neut # (Auto) 10.38 H (1.4-6.5) K/uL Lymph # (Auto) 1.85 (1.2-3.4) K/uL [place] # (Auto) 1.13 H (0.11-0.59) K/uL Eos # (Auto) 0.37 (0-0.5) K/uL Baso # (Auto) 0.09 (0-0.2) K/uL PT (9.0-12.0) Seconds INR (0.9-1.1) APTT (21.0-31.0) Seconds PTT Ratio VBG pH (7.36-7.41) VBG pCO2 (38-50) mmHg VBG pO2 mmHg VBG HCO3 mmol/L VBG O2 Saturation % VBG Base Excess mEq/L Barometric Pressure mm/Hg Sodium (136-145) mmol/L Potassium (3.5-5.1) mmol/L Chloride (98-107) mmol/L Carbon Dioxide (21-32) mmol/L Anion Gap (3-11) BUN (7-18) mg/dl Creatinine (0.6-1.4) mg/dl Est Cr Clr Drug Dosing ml/min Est GFR ( Amer) Est GFR (Non-Af Amer) BUN/Creatinine Ratio (10-20) Glucose (70-99) mg/dl POC Glucose (70-99) mg/dl Calcium (8.5-10.1) mg/dl Phosphorus (2.5-4.9) mg/dl Magnesium (1.8-2.4) mg/dl Total Bilirubin (0.2-1) mg/dl AST (15-37) U/L ALT (12-78) U/L Alkaline Phosphatase (45-117) U/L Total Protein (6.4-8.2) gm/dl Albumin (3.4-5.0) gm/dl Globulin (2.5-4.0) gm/dl Albumin/Globulin Ratio (0.9-2) Urine Color Urine Appearance (Clear) Urine pH (4.5-7.5) Ur Specific [place] (1.000-1.030) Urine Protein (Negative) Urine Glucose (UA) (Negative) Urine Ketones (Negative) Urine Blood (Negative) Urine Nitrite (Negative) Urine Bilirubin (Negative) Urine Urobilinogen (Negative) Ur Leukocyte Esterase (Negative) Urine WBC (Auto) (0-5) /hpf Urine RBC (Auto) (0-4) /hpf U Hyaline Cast (Auto) (0-5) /lpf U Epithel Cells (Auto) (0-5) /lpf Urine Bacteria (Auto) (Negative) Digoxin (0.8-2.0) ng/ml Influenza Type A (PCR) (Neg) Influenza Type B (PCR) (Neg) PG Care Time/CCT Total # of Minutes Spent Total Time Spent with Patient: Total time spent is greater than 50% in coordination of care (as documented) at patient's floor/unit and/or counseling patient: Coding Level of Care Code 89350 Subseq Hosp Care Lvl 3 Diagnoses COPD exacerbation J44.1 Acute and chronic respiratory failure with hypoxia J96.21 Acute metabolic encephalopathy G93.41 Atrial fibrillation I48.91 V tach I47.2 Type 2 diabetes mellitus E11.9 Seizure R56.9 Dyslipidemia E78.5 Hypertension I10 Hypothyroidism (acquired) E03.9 Benign prostatic hyperplasia with urinary obstruction N40.1; N13.8 Depression F32.9
[2019-06-05] MEDS: DIGOXIN 0.125 MG TAB PO SCH ×2 (15:34→17:20)
--- NOTE | 2019-06-05 17:42 | Electrocardiogram Report ---
Test Reason : Blood Pressure : / mmHG Vent. Rate : 053 BPM Atrial Rate : 053 BPM P-R Int : 146 ms QRS Dur : 078 ms QT Int : 422 ms P-R-T Axes : 052 043 033 degrees QTc Int : 395 ms Sinus bradycardia Minimal voltage criteria for LVH, may be normal variant Nonspecific ST abnormality Abnormal ECG When compared with ECG of 28-MAR-2019 06:26, Sinus rhythm has replaced Atrial fibrillation Vent. rate has decreased BY 63 BPM T wave inversion no longer evident in Inferior leads Nonspecific T wave abnormality no longer evident in Lateral leads Confirmed by Mohsen Miguel ([id number]) on 06/05/2019 5:42:22 PM Referred By: REFERRED SELF Confirmed By:Deniz Miguel
[2019-06-05] MEDS: MONTELUKAST SODIUM 10 MG TABLET PO SCH (20:48)
[2019-06-05] MEDS: dilTIAZem HCL 240 MG CAPCR PO SCH (20:49)
[2019-06-05] MEDS: ATORVASTATIN 40 MG TAB PO SCH (20:50)
[2019-06-05] MEDS: lisinopriL 20 MG TAB PO SCH (20:50)
[2019-06-06] MEDS: LEVOTHYROXINE SODIUM 25 MCG TABLET PO SCH (05:51)
[2019-06-06 06:07] LABS: Hematocrit (blood only) 40.2 % (42-52); Hemoglobin 12.9 g/dL (14.0-18.0); Mean Corpuscular Hemoglobin 25.8 pg (25-34); Mean Corpuscular Hgb Conc 32.1 g/dL (32-36); Mean Corpuscular Volume 80.4 fL (80-100); Mean Platelet Volume 9.5 fL (7.4-10.4); Platelet Count 256 K/uL (130-400); RDW Coefficient of Variation 17.1 % (11.5-14.5); RDW Standard Deviation 50.2 fL (36.4-46.3); White Blood Count 11.34 K/uL (4.8-10.8)
[2019-06-06 06:48] LABS: BUN Creatinine Ratio 17.1 (10-20); Calcium 9.4 mg/dl (8.5-10.1); Creatinine Clr Calc Pharmacy 55.5 ml/min; Est GFR (African American) 86.9; Magnesium 1.9 mg/dl (1.8-2.4); Potassium 4.2 mmol/L (3.5-5.1)
[2019-06-06] MEDS: ALBUT/IPRATROP 3MG/0.5MG NEB 3 ML VIAL NEB SCH ×3 (07:24→15:36)
[2019-06-06] MEDS: ASPIRIN 81 MG ECTAB PO SCH (08:02)
[2019-06-06] MEDS: METOPROLOL TARTRATE 100 MG TAB PO SCH (08:02)
[2019-06-06] MEDS: levETIRAcetam 500 MG TAB PO SCH (08:02)
[2019-06-06] MEDS: SERTRALINE HCL 100 MG TABLET PO SCH (08:02)
[2019-06-06] MEDS: APIXABAN 5 MG TABLET PO SCH (08:03)
[2019-06-06] MEDS: FLUTICASONE/VILANTEROL 100/25MCG 14 PUFFS/INHALER INH SCH (08:05)
[2019-06-06] MEDS: TAMSULOSIN HCL 0.4 MG CAP PO SCH (08:07)
[2019-06-06] MEDS: UMECLIDINIUM BROMIDE 62.5MCG/BLISTER 7 PUFFS/INHALER INH SCH (08:07)
[2019-06-06] MEDS: INSULIN GLARGINE SOLOSTAR 100 UNITS/ML 3 ML PEN SC SCH (08:08)
[2019-06-06] MEDS: guaiFENesin 600 MG TABCR PO SCH (08:08)
[2019-06-06] MEDS: INSULIN ASPART 100 UNITS/ML 3 ML PEN SC SCH ×2 (08:10→13:01)
--- NOTE | 2019-06-06 14:16 | Discharge Summary ---
Date of Service June 06, 2019 Admission HPI Per Admitting Provider Jose J Zurita is a 78y/o M with PMH significant for COPD, HTN, HLD, T2DM, A.fib, BPH, and depression; who presented to the emergency room with increasing shortness of breath after home nursing noted that his oxygen saturation was 70% at home. Was previously on 2L NC at home but only during the night, and had noticed that he was feeling more confused early in the morning than he had been prior to starting the new medications. Has been taking the Trelegy inhaler 1-2x a week for his COPD and has not been using his rescue inhaler. Admission Exam Per Admitting Provider Constitutional: WD/WN, vitals as above Eyes: PERRL, conjunctivae normal, anicteric sclerae ENMT: external ear and nose normal, oropharynx normal Respiratory: normal respiratory effort; no respiratory distress, no labored breathing and no cough Auscultation: + wheezes (L whole field); no crackles and no rales Cardiovascular: Rate/Rhythm: regular rate and regular rhythm Heart Sounds: normal S1 and normal S2; no gallop, no murmur and no cardiac rub Vessels: no JVD Extremities: no pedal edema and no edema Gastrointestinal (Abdomen): normal bowel sounds, soft, nontender, no hepatosplenomegaly Skin: no rashes, warm and dry Principal Diagnosis COPD Exacerbation Discharge Exam General: Resting comfortably; chronically ill appearing elderly male. HEENT: NC/AT; PERRLA with EOMI; [place] conjunctiva, MMM. No erythema of posterior pharynx Neck: Supple and nontender Cardiac: RRR Lungs: on 2L via NC; CTA throughout Abdomen: Bowel normoactive X 4; Nontender to palpation Extremities: Warm. No edema present Neuro: No focal weakness Skin: No rash Discharge Data Allergies Allergy/AdvReac Type Severity Reaction Status Date / Time pollen extracts Allergy Mild CONGESTION Verified 06/04/19 19:19 Consultations 06/04/19 18:57 ED Decision to Admit Stat Hospital Course (1) COPD exacerbation: Presented with COPD exacerbation; requiring 2L via NC throughout the day and at night. Duonebs QID scheduled. Continued Breo-ellipta and Incruse ellipta daily. Mucinex 600 mg q12hr. Completed course of steroids as outpt; hold further steroids at this time. CXR negative - no indication for abx coverage. (2) Chronic respiratory failure: In setting of COPD; requires 2L via NC continuously. (3) Acute metabolic encephalopathy: Likely related to acute process (see above); confusion now improved. U/a negative; CXR neg for PNA. May have component of dementia with hospital delirium. (4) Atrial fibrillation: HR has been irregular -- A. fib in the 90-100's then sinus bradycardia with HR 30-40's. Continued Cardizem and Metoprolol as prescribed. Digoxin was recently d/c'ed by legal activity adjudicator. Continued Eliquis 5 mg BID. (5) V tach: 2 episodes of V. tach on 06/05, now resolved. (6) Type 2 diabetes mellitus: Most recent A1C 7.2. SSI coverage with Lantus 5 units BID. (7) Seizure: Continued Keppra 1 gm BID. (8) Dyslipidemia: Continued ASA and statin as prescribed. (9) Hypertension: Continued Metoprolol (with close monitoring of HR), Lisinopril, Cardizem as prescribed. (10) Hypothyroidism (acquired): Continued Levothyroxine 25 mcg daily. Most recent TSH was 4.8. (11) Benign prostatic hyperplasia with urinary obstruction: Continued Flomax. (12) Depression: Continued Zoloft. Discharged to home on 06/06/19. Total Time Total Time Spent Total Time Spent (In Minutes): >30 minutes Total Time Includes: Examination of the Patient, Discharge Planning, Medication Reconciliation, Communication With Other Providers and Other Discharge Plan Discharge Items Patient Disposition: Home - Self-Care Reason For Visit: COPD EXACERBATION Discharge Diagnosis: COPD Exacerbation Condition on Discharge: Good Goals: You have been hospitalized for an acute medical problem. During your stay at [facility], we have made an effort to correct the problem that brought you to the hospital while keeping you as comfortable as possible. Medications were used to bring your condition under control and your discharge instructions will include directions for any medications you should take after leaving the hospital. Please make sure you see your Primary Care Provider as part of your follow up plan. Activity: As commented below Exercise/Sports: Gradually increase as tolerated Non-emergency contact: Primary Care Provider and Public Improvement Inspector Call non-emergency contact if: you have any medication questions, your symptoms worsen and you have a fever Follow-up/Referrals: Lorna Tucker, [Primary Care Provider] - 06/11/19 5:00 pm (Please, follow up at Dr. Tucker's office with her associate, Quin Miranda PA-C, on MondayJune 11 at 5:00 pm. *If you need to change this appointment, call the office at [phone].) Diet: Carb Consistent or DM2 and Heart Healthy Addtl Attending Provider Instructions: 1. COPD Exacerbation * Please continue home inhalers as prescribed. * Please wear 2 liters via nasal cannula at all times following discharge to home. * Please follow up with PCP in 1-2 weeks to discuss this hospital admission. * Please follow up with pulmonology as scheduled in outpatient clinic for COPD management. Pending Studies at Discharge: No Stand-Alone Forms: My [facility] Medications and DC Order Prescriptions: Continued cyanocobalamin (vitamin B-12) [Vitamin B-12] 1,000 mcg tablet 1,000 mcg PO QAM Qty: 180 RF: 1 metformin 1,000 mg tablet 1,000 mg PO BID Qty: 180 RF: 3 Trelegy Ellipta 100-62.5-25 mcg blister with device 1 inh INHALATION QAM Qty: 60 RF: 3 Eliquis 5 mg tablet 5 mg PO BID Qty: 180 RF: 3 diltiazem HCl [Cartia XT] 240 mg capsule,extended release 24hr 240 mg PO PM Qty: 90 RF: 1 metoprolol tartrate 100 mg tablet 100 mg PO BID Qty: 180 RF: 1 levetiracetam [Keppra] 500 mg tablet 1,000 mg PO BID Qty: 28 RF: 1 atorvastatin [Lipitor] 40 mg tablet 40 mg PO PM Qty: 90 RF: 1 glimepiride 2 mg tablet 4 mg PO QAM Qty: 180 RF: 1 lisinopril 20 mg tablet 20 mg PO PM Qty: 90 RF: 1 montelukast 10 mg tablet 10 mg PO PM Qty: 90 RF: 1 sertraline 100 mg tablet 100 mg PO QAM Qty: 90 RF: 2 levothyroxine [Synthroid] 25 mcg tablet 25 mcg PO QAM Qty: 90 RF: 1 calcium carbonate-vitamin D3 600 mg(1,500mg) -400 unit tablet 2 tab PO PM RF: 0 albuterol sulfate 2.5 mg /3 mL (0.083 %) solution for nebulization 2.5 mg INH QID PRN (Reason: shortness of breath or wheezing) Qty: 90 RF: 3 albuterol sulfate [Ventolin HFA] 90 mcg/actuation HFA aerosol inhaler 2 puffs INH Q4H PRN (Reason: Shortness Of Breath) RF: 0 fluticasone propionate [Allergy Relief (fluticasone)] 50 mcg/actuation spray,suspension 1 - 2 sprays INTNAS DAILY PRN (Reason: Congestion) RF: 0 Vitamin D3 4,000 unit Capsule 4,000 unit PO PM RF: 0 tamsulosin 0.4 mg Capsule 0.4 mg PO QAM Qty: 30 RF: 1 aspirin [Aspir-81] 81 mg Tablet,Delayed Release (Dr/Ec) 81 mg PO BID RF: 0 Discharge Orders: Discharge Order (Routine); Ordered 06/06/19 Ordered By: Federica Galan Admission Data Admit Date/Time: 06/04/19 19:45 Attending Provider: Low Agudelo Admit Provider: Rajan Madsen Primary Care Provider: Lorna Tucker Other Providers: Jose Tolentino Other Interventions: Discharge Summary Assessment (RN) Last Done: 06/06/19 14:26 Coding Level of Care Code D/C Day Management >30 mins Diagnoses COPD exacerbation J44.1 Chronic respiratory failure J96.10 Acute metabolic encephalopathy G93.41 Atrial fibrillation I48.91 V tach I47.2 Type 2 diabetes mellitus E11.9 Seizure R56.9 Dyslipidemia E78.5 Hypertension I10 Hypothyroidism (acquired) E03.9 Benign prostatic hyperplasia with urinary obstruction N40.1; N13.8 Depression F32.9
== END 2019-06-06 16:59 | disposition home health service (06) | DRG 190 ==
LOC: ED 15:38 → SUATTDRO 19:45 → 2W 19:45

== ENCOUNTER 2019-07-11 09:01 | Inpatient (IN) ==
--- NOTE | 2019-07-11 09:36 | Emergency Department Note ---
Entered by Patrick Rankin acting as a scribe for Marck De La Fuente DO History of Present Illness General Chief complaint: Weakness Stated complaint: WEAKNESS,COLD,HARD TIME GETTING OUT OF HIS CHAIR Time Seen by Provider: 07/11/19 09:22 Source: patient Limitations: no limitations History of Present Illness Maximum Pain Intensity: 0 The patient is a 78 year old male who presents to the Emergency Room with complaints of constant weakness starting last night. The patient's states the patient was not acting right last night. She states the patient was cold last night and could not get out of his chair. She states she called the home nurse and the home nurse told her to come to the ED. The patient denies having headaches, nausea, vomiting, fevers, SOB, and increased cough. The patient denies taking new medications for A-Fib. The states the patient was admitted recently and had a nodule taken off his right lung by Dr. Lynn. Home Medications Home Medications Medication Instructions Recorded Confirmed Type aspirin [Aspir-81] 81 mg PO BID 02/02/18 07/11/19 History cyanocobalamin (vitamin B-12) 1,000 mcg PO QAM #180 tab 10/22/18 07/11/19 Rx 1,000 mcg tablet calcium carbonate 600 mg (1,500 2 tab PO QDD 01/16/19 07/11/19 History mg)-vitamin D3 400 unit tablet Vitamin D3 4,000 unit PO HS 01/29/19 07/11/19 History fluticasone propionate 50 1 - 2 sprays INTNAS DAILY PRN gm 02/02/19 07/11/19 History mcg/actuation nasal spray,suspension fluticasone fur. 100 mcg-umeclid 1 inh INHALATION QAM #60 ea 04/10/19 07/11/19 Rx 62.5 mcg-vilant 25 mcg inhalat.powder apixaban 5 mg tablet 5 mg PO BID #180 tab 04/12/19 07/11/19 Rx levetiracetam 500 mg tablet 1,000 mg PO BID #28 tab 05/21/19 07/11/19 Rx metoprolol tartrate 100 mg tablet 100 mg PO BID #180 tab 05/21/19 07/11/19 Rx glimepiride 2 mg tablet 4 mg PO QAM #180 tab 05/24/19 07/11/19 Rx sertraline 100 mg tablet 100 mg PO QAM #90 tab 05/24/19 07/11/19 Rx levothyroxine 25 mcg tablet 25 mcg PO QAM #90 tab 05/27/19 07/11/19 Rx albuterol sulfate 90 mcg/actuation 2 puffs INH Q4H PRN #18 gm 06/11/19 07/11/19 Rx aerosol inhaler Portable Oxygen #1 ea 06/19/19 06/26/19 Rx albuterol sulfate 2.5 mg INH .COMPLEX PRN #90 ml 06/20/19 07/11/19 Rx metformin 1,000 mg tablet 1,000 mg PO BID #180 tab 06/21/19 07/11/19 Rx atorvastatin [Lipitor] 40 mg PO HS 07/11/19 07/11/19 History diltiazem HCl [Cartia XT] 240 mg PO HS 07/11/19 07/11/19 History lisinopril 20 mg PO HS 07/11/19 07/11/19 History montelukast 10 mg PO HS 07/11/19 07/11/19 History Allergies Allergy/AdvReac Type Severity Reaction Status Date / Time pollen extracts Allergy Mild CONGESTION Verified 07/11/19 10:44 Past Med/Surg History Social History Preferred Language: Kyrgyz Communication Ability: Effective Visual Impairment: No Limitations Hearing Ability: Use of Hearing Aid 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: No Beliefs That Will Affect Care: None marital status: Current Living Situation: Spouse current occupational status: retired 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, 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[employer] Other Information That Helps Us Care for You: No Feels Safe at Home: Yes Safety Concerns: Feels Safe At This Time Smoking Status: Former smoker Tobacco Type: cigarettes ; Cigarettes Per Day: 20-40 ; Do You Dip or Chew Tobacco: No (uses herbal chew, tobaccoless, 1 can in 2 days) ; Smoking End Date: 1973 ; Number of Years Since Quit: 34 ; Second Hand Exposure: No ; Tobacco Cessation Education Requested by Patient: No Hx Alcohol Use: No Hx Substance Use: No Childhood Exposure to Second-Hand Smoke: Yes Diet Comment: regular caffeine: No Dental Care, Regularly: No Physical Activity Frequency: Does not Exercise Seatbelt Use: always Sunscreen Use: Yes Review of Systems See HPI for pertinent positives & negatives. and A total of 10 systems reviewed and were otherwise negative Physical Exam Vital Signs Vital Signs - 24 hr 07/11/19 09:02 07/11/19 09:12 07/11/19 09:34 Temperature 36.8 C Temperature Source Oral Pulse Rate 52 L Pulse Rate [Apical] 50 L Pulse Rhythm [Apical] Respiratory Rate 20 20 Respiratory Effort / Characteristics Non-Labored Spontaneous Respiratory Depth Normal Respiratory Pattern Regular Blood Pressure 117/67 Blood Pressure [Left Arm] 125/64 Blood Pressure Mean 83 Blood Pressure Mean [Left Arm] 84 Blood Pressure Position Sitting Pulse Oximetry 95 97 95 Oxygen Delivery Method Nasal Cannula Room Air Nasal Cannula Oxygen Flow Rate 2 2 Fraction of Inspired Oxygen 95 Sepsis Recent Fever Within 48 Hours No Sepsis New/Unexplained Change in Mental Status No Sepsis Action Taken by Nursing No Action Required 07/11/19 10:43 Temperature Temperature Source Pulse Rate Pulse Rate [Apical] 77 Pulse Rhythm [Apical] Regular Respiratory Rate 20 Respiratory Effort / Characteristics Non-Labored Respiratory Depth Normal Respiratory Pattern Blood Pressure Blood Pressure [Left Arm] 125/64 Blood Pressure Mean Blood Pressure Mean [Left Arm] 84 Blood Pressure Position Pulse Oximetry 96 Oxygen Delivery Method Nasal Cannula Oxygen Flow Rate 2 Fraction of Inspired Oxygen Sepsis Recent Fever Within 48 Hours Sepsis New/Unexplained Change in Mental Status Sepsis Action Taken by Nursing GENERAL: The patient is awake and alert. He answers questions appropriately and does not appear to be in pain. EYES: The conjunctivae are clear. The pupils are round and reactive. EARS, NOSE, MOUTH AND THROAT: The nose is without any evidence of any deformity. Mucous membranes are moist. Tongue is midline. NECK: The neck is nontender and supple. RESPIRATORY: Diminished breath sounds are noted in the right lung field. There were rales at the right base. There is no tachypnea or conversational dyspnea. CARDIOVASCULAR: Ectopy and bradycardia was noted to auscultation. No definite murmur was noted. GASTROINTESTINAL: The abdomen is soft. Abdomen is nontender. MUSCULOSKELETAL/EXTREMITIES: There is no evidence of gross deformity full range of motion is noted in the hips and shoulders. SKIN: Trace pedal edema was noted bilaterally. NEUROLOGIC: Patient is awake alert and oriented x3. Strength was symmetric but diminished. Course Course 927: The patient was evaluated in room A9B, and a complete history and physical examination were performed. 1110: [facility] the [facility] will evaluate the patient for further management. Administered Medications Albuterol (Duoneb) 3 ml NEB QIDR PATO Stop: 08/10/19 14:59 Last Admin: 07/11/19 14:49 Dose: Not Given Documented by: [id number] Fluticasone Furoate (Arnuity Ellipta 100mcg) 1 puffs INH QAM PATO Stop: 08/10/19 13:21 Last Admin: 07/11/19 15:52 Dose: 1 puffs Documented by: [id number] Doxycycline Hyclate 100 mg/ (Dextrose) 110 mls @ 50 mls/hr IV Q12H [facility] Stop: 07/18/19 13:59 Last Infusion: 07/11/19 16:49 Dose: 0 mls/hr Documented by: [id number] Admin: 07/11/19 14:36 Dose: 50 mls/hr Documented by: [id number] Piperacillin Sod/Tazobactam (Sod 3.375 gm/ Dextrose) 115 mls @ 28.75 mls/hr IV Q8H [facility]; Protocol Stop: 07/18/19 15:59 Last Admin: 07/11/19 17:15 Dose: 28.8 mls/hr Documented by: [id number] Insulin Aspart (Novolog Flexpen) 0 units SC ACHS PATO Stop: 08/10/19 16:29 Last Admin: 07/11/19 17:10 Dose: 2 units Documented by: [id number] Cosigned by: [id number] Levetiracetam (Keppra) 1,000 mg PO BID PATO Stop: 08/10/19 13:21 Last Admin: 07/11/19 14:36 Dose: 1,000 mg Documented by: [id number] Levothyroxine Sodium (Synthroid) 25 mcg PO DAILYBB [facility] Stop: 08/10/19 13:21 Last Admin: 07/11/19 14:37 Dose: 25 mcg Documented by: [id number] Multivitamins/Minerals (Caltrate Plus) 2 tab PO QDD PATO Stop: 08/10/19 16:29 Last Admin: 07/11/19 17:15 Dose: 2 tab Documented by: [id number] Umeclidinium/Vilanterol (Anoro Ellipta 62.5/25 Mcg Inh) 1 puffs INH DAILY PATO Stop: 08/10/19 13:21 Last Admin: 07/11/19 15:52 Dose: 1 puffs Documented by: [id number] Discontinued Medications Magnesium Sulfate/Dextrose (Magnesium Sulfate / D5w) 1 gm in 100 mls @ 100 mls/hr IV Q1H PATO Stop: 07/11/19 12:14 Last Infusion: 07/11/19 12:25 Dose: 0 mls/hr Documented by: [id number] Admin: 07/11/19 11:42 Dose: 100 mls/hr Documented by: [id number] Infusion: 07/11/19 11:40 Dose: 100 mls/hr Documented by: [id number] Admin: 07/11/19 10:40 Dose: 100 mls/hr Documented by: [id number] Piperacillin Sod/Tazobactam Sod (Zosyn) 4.5 gm in 120 mls @ 240 mls/hr IV NOW ONE Stop: 07/11/19 11:32 Last Infusion: 07/11/19 13:25 Dose: 0 mls/hr Documented by: [id number] Admin: 07/11/19 12:25 Dose: 240 mls/hr Documented by: [id number] Methylprednisolone 40 mg/ (Syringe) 0.64 mls @ 1.5 mls/min IV Q12H PATO Stop: 07/11/19 17:00 Last Admin: 07/11/19 14:36 Dose: 1.5 mls/min Documented by: [id number] Insulin Human NPH (Novolin N Nph) 6 units SC 1445 ONE Stop: 07/11/19 14:46 Last Admin: 07/11/19 15:53 Dose: 6 units Documented by: [id number] Cosigned by: [id number] Ioversol (Optiray 320 125ml) 120 ml IV ONCE PRN PRN Reason: Interaction Checking Stop: 07/15/19 10:23 Last Admin: 07/11/19 10:24 Dose: 120 ml Documented by: [id number] Miscellaneous Information (Dc All Previously Ordered Diabetes Meds) 1 ea N/A ONE ONE Stop: 07/11/19 13:23 Last Admin: 07/11/19 14:37 Dose: 1 ea Documented by: [id number] Medical Decision Making Differential Diagnosis Differential Diagnosis includes but is not limited to dehydration, stroke, anemia, hypoglycemia, hyponatremia, hypernatremia, urinary tract infection, pneumonia, bronchitis, sepsis, gastroenteritis, additional abdominal pathology, metabolic abnormalities and infections. Medical Records Attestation: I reviewed the patient's medical records. Home Medications Current Medication List: was personally reviewed by me Laboratory Data Attestation: I reviewed the patient's lab results. Result diagrams: 07/11/19 09:35 07/11/19 09:35 Lab Results 07/11/19 07/11/19 07/11/19 Range/Units 09:35 09:35 09:35 WBC 9.14 (4.8-10.8) K/uL RBC 4.87 (4.7-6.1) M/uL Hgb 12.3 L (14.0-18.0) g/dL Hct 38.6 L (42-52) % MCV 79.3 L (80-100) fL MCH 25.3 (25-34) pg MCHC 31.9 L (32-36) g/dL RDW Std Deviation 51.0 H (36.4-46.3) fL RDW Coeff of Ashu 17.8 H (11.5-14.5) % Plt Count 201 (130-400) K/uL MPV 9.5 (7.4-10.4) fL Immature Gran % (Auto) 0.2 % Neut % (Auto) 70.0 % Lymph % (Auto) 10.8 % Bell % (Auto) 13.8 % Eos % (Auto) 4.3 % Baso % (Auto) 0.9 % Immature Gran # (Auto) 0.02 (0.00-0.02) K/uL Neut # (Auto) 6.40 (1.4-6.5) K/uL Lymph # (Auto) 0.99 L (1.2-3.4) K/uL Bell # (Auto) 1.26 H (0.11-0.59) K/uL Eos # (Auto) 0.39 (0-0.5) K/uL Baso # (Auto) 0.08 (0-0.2) K/uL PT 11.4 (9.0-12.0) Seconds INR 1.1 (0.9-1.1) APTT 29.9 (21.0-31.0) Seconds PTT Ratio 1.1 Sodium 133 L (136-145) mmol/L Potassium 4.1 (3.5-5.1) mmol/L Chloride 101 (98-107) mmol/L Carbon Dioxide 25 (21-32) mmol/L Anion Gap 7.0 (3-11) BUN 12 (7-18) mg/dl Creatinine 0.96 (0.6-1.4) mg/dl Est Cr Clr Drug Dosing 64.3 ml/min Est GFR ( Amer) 88.0 Est GFR (Non-Af Amer) 75.9 BUN/Creatinine Ratio 12.0 (10-20) Glucose 132 H (70-99) mg/dl Estimat Average Glucose mg/dl Hemoglobin A1c (4.5-5.6) % Lactate (0.4-2.0) mmol/L Calcium 9.5 (8.5-10.1) mg/dl Magnesium 1.7 L (1.8-2.4) mg/dl Total Bilirubin 0.3 (0.2-1) mg/dl AST 15 (15-37) U/L ALT 21 (12-78) U/L Alkaline Phosphatase 86 (45-117) U/L Troponin I < 0.015 (0-0.045) ng/ml NT-Pro-B Natriuret Pep (0-1800) pg/ml Total Protein 7.9 (6.4-8.2) gm/dl Albumin 3.2 L (3.4-5.0) gm/dl Globulin 4.7 H (2.5-4.0) gm/dl Albumin/Globulin Ratio 0.7 L (0.9-2) Procalcitonin (0-0.5) ng/ml TSH 4.120 (0.300-4.500) uIu/ml Urine Color Urine Appearance (Clear) Urine pH (4.5-7.5) Ur Specific [place] (1.000-1.030) Urine Protein (Negative) Urine Glucose (UA) (Negative) Urine Ketones (Negative) Urine Blood (Negative) Urine Nitrite (Negative) Urine Bilirubin (Negative) Urine Urobilinogen (Negative) Ur Leukocyte Esterase (Negative) Urine WBC (Auto) (0-5) /hpf Urine RBC (Auto) (0-4) /hpf U Hyaline Cast (Auto) (0-5) /lpf U Epithel Cells (Auto) (0-5) /lpf Urine Bacteria (Auto) (Negative) Digoxin (0.8-2.0) ng/ml 07/11/19 07/11/19 07/11/19 Range/Units 09:35 09:35 09:35 WBC (4.8-10.8) K/uL RBC (4.7-6.1) M/uL Hgb (14.0-18.0) g/dL Hct (42-52) % MCV (80-100) fL MCH (25-34) pg MCHC (32-36) g/dL RDW Std Deviation (36.4-46.3) fL RDW Coeff of Ashu (11.5-14.5) % Plt Count (130-400) K/uL MPV (7.4-10.4) fL Immature Gran % (Auto) % Neut % (Auto) % Lymph % (Auto) % Bell % (Auto) % Eos % (Auto) % Baso % (Auto) % Immature Gran # (Auto) (0.00-0.02) K/uL Neut # (Auto) (1.4-6.5) K/uL Lymph # (Auto) (1.2-3.4) K/uL Bell # (Auto) (0.11-0.59) K/uL Eos # (Auto) (0-0.5) K/uL Baso # (Auto) (0-0.2) K/uL PT (9.0-12.0) Seconds INR (0.9-1.1) APTT (21.0-31.0) Seconds PTT Ratio Sodium (136-145) mmol/L Potassium (3.5-5.1) mmol/L Chloride (98-107) mmol/L Carbon Dioxide (21-32) mmol/L Anion Gap (3-11) BUN (7-18) mg/dl Creatinine (0.6-1.4) mg/dl Est Cr Clr Drug Dosing ml/min Est GFR ( Amer) Est GFR (Non-Af Amer) BUN/Creatinine Ratio (10-20) Glucose (70-99) mg/dl Estimat Average Glucose 154 mg/dl Hemoglobin A1c 7.0 H (4.5-5.6) % Lactate (0.4-2.0) mmol/L Calcium (8.5-10.1) mg/dl Magnesium (1.8-2.4) mg/dl Total Bilirubin (0.2-1) mg/dl AST (15-37) U/L ALT (12-78) U/L Alkaline Phosphatase (45-117) U/L Troponin I (0-0.045) ng/ml NT-Pro-B Natriuret Pep 1668 (0-1800) pg/ml Total Protein (6.4-8.2) gm/dl Albumin (3.4-5.0) gm/dl Globulin (2.5-4.0) gm/dl Albumin/Globulin Ratio (0.9-2) Procalcitonin (0-0.5) ng/ml TSH (0.300-4.500) uIu/ml Urine Color Urine Appearance (Clear) Urine pH (4.5-7.5) Ur Specific [place] (1.000-1.030) Urine Protein (Negative) Urine Glucose (UA) (Negative) Urine Ketones (Negative) Urine Blood (Negative) Urine Nitrite (Negative) Urine Bilirubin (Negative) Urine Urobilinogen (Negative) Ur Leukocyte Esterase (Negative) Urine WBC (Auto) (0-5) /hpf Urine RBC (Auto) (0-4) /hpf U Hyaline Cast (Auto) (0-5) /lpf U Epithel Cells (Auto) (0-5) /lpf Urine Bacteria (Auto) (Negative) Digoxin 0.2 L (0.8-2.0) ng/ml 07/11/19 07/11/19 07/11/19 Range/Units 09:35 11:10 11:37 WBC (4.8-10.8) K/uL RBC (4.7-6.1) M/uL Hgb (14.0-18.0) g/dL Hct (42-52) % MCV (80-100) fL MCH (25-34) pg MCHC (32-36) g/dL RDW Std Deviation (36.4-46.3) fL RDW Coeff of Ashu (11.5-14.5) % Plt Count (130-400) K/uL MPV (7.4-10.4) fL Immature Gran % (Auto) % Neut % (Auto) % Lymph % (Auto) % Bell % (Auto) % Eos % (Auto) % Baso % (Auto) % Immature Gran # (Auto) (0.00-0.02) K/uL Neut # (Auto) (1.4-6.5) K/uL Lymph # (Auto) (1.2-3.4) K/uL Bell # (Auto) (0.11-0.59) K/uL Eos # (Auto) (0-0.5) K/uL Baso # (Auto) (0-0.2) K/uL PT (9.0-12.0) Seconds INR (0.9-1.1) APTT (21.0-31.0) Seconds PTT Ratio Sodium (136-145) mmol/L Potassium (3.5-5.1) mmol/L Chloride (98-107) mmol/L Carbon Dioxide (21-32) mmol/L Anion Gap (3-11) BUN (7-18) mg/dl Creatinine (0.6-1.4) mg/dl Est Cr Clr Drug Dosing ml/min Est GFR ( Amer) Est GFR (Non-Af Amer) BUN/Creatinine Ratio (10-20) Glucose (70-99) mg/dl Estimat Average Glucose mg/dl Hemoglobin A1c (4.5-5.6) % Lactate 1.9 (0.4-2.0) mmol/L Calcium (8.5-10.1) mg/dl Magnesium (1.8-2.4) mg/dl Total Bilirubin (0.2-1) mg/dl AST (15-37) U/L ALT (12-78) U/L Alkaline Phosphatase (45-117) U/L Troponin I (0-0.045) ng/ml NT-Pro-B Natriuret Pep (0-1800) pg/ml Total Protein (6.4-8.2) gm/dl Albumin (3.4-5.0) gm/dl Globulin (2.5-4.0) gm/dl Albumin/Globulin Ratio (0.9-2) Procalcitonin 0.05 (0-0.5) ng/ml TSH (0.300-4.500) uIu/ml Urine Color Yellow Urine Appearance Clear (Clear) Urine pH 7.0 (4.5-7.5) Ur Specific [place] 1.038 H (1.000-1.030) Urine Protein Trace H (Negative) Urine Glucose (UA) Negative (Negative) Urine Ketones Negative (Negative) Urine Blood Negative (Negative) Urine Nitrite Negative (Negative) Urine Bilirubin Negative (Negative) Urine Urobilinogen Negative (Negative) Ur Leukocyte Esterase Negative (Negative) Urine WBC (Auto) 0 (0-5) /hpf Urine RBC (Auto) 0-4 (0-4) /hpf U Hyaline Cast (Auto) 0 (0-5) /lpf U Epithel Cells (Auto) 0-5 (0-5) /lpf Urine Bacteria (Auto) Negative (Negative) Digoxin (0.8-2.0) ng/ml Imaging Data Radiologist's Impression: Radiology results as stated below per my review and the radiologist's interpretation: SINGLE VIEW CHEST CLINICAL HISTORY: Generalized weakness. FINDINGS: An AP, portable, upright chest radiograph is compared to chest x-ray dated 06/04/2019 and correlated with chest CT dated 03/31/2019. The examination is degraded by portable technique and patient rotation. The heart is enlarged noting atherosclerotic calcification of the thoracic aorta. The pulmonary vasculature is noncongested. Emphysema and chronic interstitial thickening are similar to previous. There is postoperative change and volume loss at the right lung base consistent with the history of right basilar resection. No pneumothorax is seen. Dependent opacities are present at both lung bases. Nodular opacities are present in the right suprahilar region. The skeletal structures are osteopenic. The bony thorax is grossly intact. . IMPRESSION: 1. 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 2. Patchy nodular opacities are seen in the right suprahilar region. This is new from 06/04/2019 and likely represents an infectious/inflammatory pneumonitis. Follow-up to resolution is recommended. 3. Dependent airspace opacities are similar to previous and likely represent scarring/atelectasis. Electronically signed by: Eze Chairez M.D. 07/11/2019 9:[address] angio chest PE protocol CLINICAL HISTORY: 78 years-old Male presenting with weakness, cold limits, cardiomegaly, emphysema, postsurgical changes of the right lung, abnormal chest x-ray concerning for pneumonitis, CT for further evaluation. TECHNIQUE: Multidetector CT angiography of the chest was performed after administration of intravenous contrast. 3-D volumetric and/or maximum intensity projection (MIP) images were subsequently reconstructed for review. IV contrast: 120 mL of Optiray 320. One or more dose lowering techniques were used consistent with the principles of ALARA (as low as reasonably achievable), including automatic exposure control, mA or kV adjustment to individual patient size, and/or use of iterative reconstruction. COMPARISON: None. CT DOSE (mGy.cm): The estimated cumulative dose is 881.64 mGycm. FINDINGS: Supervisor Plastering topogram: Unremarkable. Pulmonary vasculature: The study is adequate for assessment of the pulmonary vascular tree. No filling defect within the pulmonary arteries to suggest embolus. Main pulmonary artery is not enlarged. No flattening of the interventricular septum. No intracardiac filling defect. No reflux of contrast into the hepatic veins. Remaining chest: Soft tissues: 2.5 cm low-density nodule in the subcutaneous tissue of the right anterior chest wall as on prior exam intimately associated with the acuteness likely representing an epidermal inclusion cyst. Additional similar lesion in the left axilla. Normal thyroid. Several prominent right paratracheal lymph nodes, which are similar to prior exam. An index node measures 9 mm in short axis. Additional enlarged precarinal, subcarinal, prevascular, and bilateral hilar nodes. An index precarinal node measures 11 mm in short axis, previously 9 mm. Atherosclerosis of the aorta. Severe three-vessel coronary artery calcification. Mild aortic valve calcification. Mild multichamber enlargement of the heart. Trace right pleural effusion. No pericardial effusion. 18 mm nodule in the right adrenal gland. Macroscopic fat may be present. This is unchanged. Lungs and airways: No pneumothorax. Extensive layering debris or secretions in the trachea. Marked bronchial wall thickening in the lower lobes with scattered subsegmental endobronchial debris. This is also seen to a lesser extent in the right upper lobe. Pulmonary arteries mildly enlarged relative to adjacent bronchi. No interlobular septal thickening. Mild upper lobe predominant centrilobular emphysema. Dependent solid consolidation in the posterior segment of the right upper lobe. Less extensive peribronchovascular opacities and tree-in-bud opacities dependently in the lower lobes. There is also bibasilar atelectasis. Solid 3 mm nodule in the left upper lobe (series 7 image 177), previously obscured by diffuse left upper lobe consolidation. Musculoskeletal: Degenerative changes of the spine. Chronic fracture of the right lateral eighth rib. Several old lateral left rib fractures also evident. IMPRESSION: 1. No evidence of pulmonary embolus. 2. Extensive dependent consolidation in the posterior segment of the right upper lobe concerning for aspiration/aspiration pneumonitis or pneumonia. 3. Dependent peribronchovascular and tree-in-bud opacities in the lower lobes also concerning for aspiration. 4. Extensive secretions or aspirated material in the trachea. 5. Underlying emphysema. 6. Mediastinal and bilateral hilar lymphadenopathy is likely reactive. Attention on follow-up. 7. Mild scarring megaly with severe coronary artery calcification. 8. Additional findings as above. ACT 112: Negative or not required by law. Results electronically sent 07/11/2019 10:47 AM to: Marck De La Fuente DO Electronically signed by: Sekou Milan M.D. 07/11/2019 10:47 AM ECG Data Attestation: I personally reviewed and interpreted this ECG as follows: Indication: + weakness Rate (beats per minute): 60 Rhythm: + sinus rhythm ECG ST segments: no ST depression and no ST elevation ECG Findings: + PVCs (frequent) Comparison ECG Date: from (06/04/19) Change: the following changes noted (PVCs are new) Blood Pressure Blood Pressure Findings: Elevated blood pressure Blood Pressure Disposition: further management by hospitalist ALAINA Narrative The patient is a 78-year-old male who presented to the emergency department for generalized weakness. The patient did have a cough and abnormal lung sounds but he had no fever or elevated white blood cell count. The patient had surgery on his right lung previously for a lung nodule. The patient's chest x-ray appeared to be consistent with possible pneumonia. Given the ambiguity of the patient's presentation for pneumonia further radiographic studies including a CT the chest were obtained. The patient was also found to have episodes of bradycardia which were very severe and at times became 20 to 30 bpm. He also had an episode of atrial flutter as well as some second-degree heart block on the monitor. I discussed the patient's laboratory and radiographic studies with him. He was treated with IV magnesium as well as IV antibiotics. He was feeling much better after supplemental oxygen and rest. I discussed his case with the on-call [facility] hospitalist group. They have agreed to evaluate the patient in the emergency department for further management disposition. Continuous Cardiac Monitoring: An order was placed for continuous cardiac monitoring. The monitor shows a rate of 62 with a sinus rhythm Impression & Plan Pneumonia, Weakness, Hypomagnesemia, Bradycardia Discharge Plan Visit Data *Final* Discharge Date/Time: 07/11/19 12:46 Chief Complaint: Weakness Stated Complaint: WEAKNESS,COLD,HARD TIME GETTING OUT OF HIS CHAIR ED Provider: Marck De La Fuente Discharge Problem: Pneumonia, Weakness, Hypomagnesemia, Bradycardia Patient Disposition: Admitted As Inpatient Discharge Instructions Interventions: ED Discharge Assessment Last Done: 07/11/19 12:46 Discharge Problem: Pneumonia Qualifiers: Pneumonia type: due to unspecified organism Laterality: right Lung location: lower lobe of lung Qualified Code(s): J18.9 - Pneumonia, unspecified organism The scribe's documentation has been prepared under my direction and personally reviewed by me in its entirety. I confirm that the note above accurately reflects all work, treatment, procedures, and medical decision making performed by me.
[2019-07-11 09:46] LABS: Basophils # (auto) 0.08 K/uL (0-0.2); Basophils % (auto) 0.9 %; Eosinophils # (auto) 0.39 K/uL (0-0.5); Eosinophils % (auto) 4.3 %; Hematocrit (blood only) 38.6 % (42-52); Hemoglobin 12.3 g/dL (14.0-18.0); Immature Granulocytes # (auto) 0.02 K/uL (0.00-0.02); Immature Granulocytes % (auto) 0.2 %; Lymphocytes # (auto) 0.99 K/uL (1.2-3.4); Lymphocytes % (auto) 10.8 %; Mean Corpuscular Hemoglobin 25.3 pg (25-34); Mean Corpuscular Hgb Conc 31.9 g/dL (32-36); Mean Corpuscular Volume 79.3 fL (80-100); Mean Platelet Volume 9.5 fL (7.4-10.4); Monocytes # (auto) 1.26 K/uL (0.11-0.59); Monocytes % (auto) 13.8 %; Platelet Count 201 K/uL (130-400); RDW Coefficient of Variation 17.8 % (11.5-14.5); Red Blood Count 4.87 M/uL (4.7-6.1); White Blood Count 9.14 K/uL (4.8-10.8)
--- NOTE | 2019-07-11 09:58 | XRay Report ---
SINGLE VIEW CHEST CLINICAL HISTORY: Generalized weakness. FINDINGS: An AP, portable, upright chest radiograph is compared to chest x-ray dated 06/04/2019 and co rrelated with chest CT dated 03/31/2019. The examination is degraded by portable technique and patien t rotation. The heart is enlarged noting atherosclerotic calcification of the thoracic aorta. The pul monary vasculature is noncongested. Emphysema and chronic interstitial thickening are similar to prev ious. There is postoperative change and volume loss at the right lung base consistent with the histor y of right basilar resection. No pneumothorax is seen. Dependent opacities are present at both lung b ases. Nodular opacities are present in the right suprahilar region. The skeletal structures are osteo penic. The bony thorax is grossly intact. . IMPRESSION: 1. 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 2. Patchy nodular opacities are seen in the right suprahilar region. This is new from 06/04/2019 and l ikely represents an infectious/inflammatory pneumonitis. Follow-up to resolution is recommended. 3. Dependent airspace opacities are similar to previous and likely represent scarring/atelectasis. Electronically signed by: Eze Chairez M.D. 07/11/2019 9:57 AM
[2019-07-11 09:59] LABS: INR 1.1 (0.9-1.1); Partial Thromboplastin Ratio 1.1; Partial Thromboplastin Time 29.9 Seconds (21.0-31.0); Prothrombin Time 11.4 Seconds (9.0-12.0)
[2019-07-11 10:02] LABS: Blood Urea Nitrogen 12 mg/dl (7-18); Carbon Dioxide 25 mmol/L (21-32); Chloride 101 mmol/L (98-107); Potassium 4.1 mmol/L (3.5-5.1); Sodium 133 mmol/L (136-145)
[2019-07-11 10:03] LABS: Alanine Aminotransferase 21 U/L (12-78); Albumin Level 3.2 gm/dl (3.4-5.0); Aspartate Aminotransferase 15 U/L (15-37); Calcium 9.5 mg/dl (8.5-10.1); Creatinine Clr Calc Pharmacy 64.3 ml/min; Est GFR (Non-African American) 75.9; Glucose 132 mg/dl (70-99); Magnesium 1.7 mg/dl (1.8-2.4)
[2019-07-11 10:13] LABS: Albumin Globulin Ratio 0.7 (0.9-2); Alkaline Phosphatase 86 U/L (45-117); Bilirubin,Total 0.3 mg/dl (0.2-1); Globulin 4.7 gm/dl (2.5-4.0); Total Protein 7.9 gm/dl (6.4-8.2); Troponin I < 0.015 ng/ml (0-0.045)
[2019-07-11] MEDS ORDERED: OPTIRAY 320 125ml IV PRN (10:24)
[2019-07-11] MEDS: MAGNESIUM SULFATE / D5W 1 GM/100 ML BAG IV SCH ×2 (10:40→11:42)
--- NOTE | 2019-07-11 10:49 | CT Scan Report ---
CT angio chest PE protocol CLINICAL HISTORY: 78 years-old Male presenting with weakness, cold limits, cardiomegaly, emphysema, p ostsurgical changes of the right lung, abnormal chest x-ray concerning for pneumonitis, CT for furthe r evaluation. TECHNIQUE: Multidetector CT angiography of the chest was performed after administration of intravenou s contrast. 3-D volumetric and/or maximum intensity projection (MIP) images were subsequently reconst ructed for review. IV contrast: 120 mL of Optiray 320. One or more dose lowering techniques were used consistent with the principles of ALARA (as low as reasonably achievable), including automatic expos ure control, mA or kV adjustment to individual patient size, and/or use of iterative reconstruction. COMPARISON: None. CT DOSE (mGy.cm): The estimated cumulative dose is 881.64 mGycm. FINDINGS: Md Physician Dermatologist topogram: Unremarkable. Pulmonary vasculature: The study is adequate for assessment of the pulmonary vascular tree. No filling defect within the pul monary arteries to suggest embolus. Main pulmonary artery is not enlarged. No flattening of the inter ventricular septum. No intracardiac filling defect. No reflux of contrast into the hepatic veins. Remaining chest: Soft tissues: 2.5 cm low-density nodule in the subcutaneous tissue of the right anterior chest wall a s on prior exam intimately associated with the acuteness likely representing an epidermal inclusion c yst. Additional similar lesion in the left axilla. Normal thyroid. Several prominent right paratrache al lymph nodes, which are similar to prior exam. An index node measures 9 mm in short axis. Additiona l enlarged precarinal, subcarinal, prevascular, and bilateral hilar nodes. An index precarinal node m easures 11 mm in short axis, previously 9 mm. Atherosclerosis of the aorta. Severe three-vessel coron roula artery calcification. Mild aortic valve calcification. Mild multichamber enlargement of the heart . Trace right pleural effusion. No pericardial effusion. 18 mm nodule in the right adrenal gland. Mac roscopic fat may be present. This is unchanged. Lungs and airways: No pneumothorax. Extensive layering debris or secretions in the trachea. Marked br onchial wall thickening in the lower lobes with scattered subsegmental endobronchial debris. This is also seen to a lesser extent in the right upper lobe. Pulmonary arteries mildly enlarged relative to adjacent bronchi. No interlobular septal thickening. Mild upper lobe predominant centrilobular emphys ivy. Dependent solid consolidation in the posterior segment of the right upper lobe. Less extensive p eribronchovascular opacities and tree-in-bud opacities dependently in the lower lobes. There is also bibasilar atelectasis. Solid 3 mm nodule in the left upper lobe (series 7 image 177), previously obsc ured by diffuse left upper lobe consolidation. Musculoskeletal: Degenerative changes of the spine. Chronic fracture of the right lateral eighth rib. Several old lateral left rib fractures also evident. IMPRESSION: 1. No evidence of pulmonary embolus. 2. Extensive dependent consolidation in the posterior segment of the right upper lobe concerning for aspiration/aspiration pneumonitis or pneumonia. 3. Dependent peribronchovascular and tree-in-bud opacities in the lower lobes also concerning for as piration. 4. Extensive secretions or aspirated material in the trachea. 5. Underlying emphysema. 6. Mediastinal and bilateral hilar lymphadenopathy is likely reactive. Attention on follow-up. 7. Mild scarring megaly with severe coronary artery calcification. 8. Additional findings as above. ACT 112: Negative or not required by law. Results electronically sent 07/11/2019 10:47 AM to: Marck De La Fuente DO Electronically signed by: Sekou Milan M.D. 07/11/2019 10:47 AM
[2019-07-11] MEDS ORDERED: PIPERACILLIN/TAZOBACTAM 4.5 GM/120 ML BAG IV ONE (11:03)
[2019-07-11] MEDS ORDERED: PIPERACILL/TAZOBAC CONSULT ACTIVE PRN (11:03)
[2019-07-11 11:46] LABS: Appearance Urine Clear (Clear); Bacteria Urine Automated Negative (Negative); Bilirubin Urine Negative (Negative); Blood Urine Negative (Negative); Cast Urine Automated 0 /lpf (0-5); Color Urine Yellow; Epithelial Cell Urine Auto 0-5 /lpf (0-5); Glucose Urine UA Negative (Negative); Ketones Urine Negative (Negative); Leukocyte Esterase Urine Negative (Negative); Nitrite Urine Negative (Negative); Protein Urine Trace (Negative); RBC Urine Automated 0-4 /hpf (0-4); Specific Gravity Urine 1.038 (1.000-1.030); Urobilinogen Urine Negative (Negative); WBC Urine Automated 0 /hpf (0-5)
--- NOTE | 2019-07-11 11:49 | History & Physical Report ---
Date of Service July 11, 2019 Assessment & Plan (1) Pneumonia: Admit to PCU on tele, VS Q4h, Blood cx and sputum cx pending, Started Zosyn in the ER, continued and added Doxy 100 mg IV BID to cover for atypical organisams. Possible aspiration PNA, Speech eval pending, cont Solumedrol 40 mg IV BID and bernabe down. DVT ppx , pt is on Apixaban 5 mg BID for parox.A.Fibs, Full code Present on Admission?: Yes (2) Weakness: Most likely related to ongoing infection -PNA Would conside PT/OT after cardiac eval Present on Admission?: Yes (3) Hypomagnesemia: Mg 1.7, replenished with 1g Magnesium IV x 2 bags Present on Admission?: Yes (4) Bradycardia: TTE pending, will se pt tomorrow. Hold Diltiazem since bradycardia is so severe to >30 bpm.Hold metoprolol 100 mg BID which is pt home dose. Give Metoprolol tartrate 25 mg BID prn if pt starts having uncontrolled rhythm >100 bpm. Present on Admission?: Yes (5) Acute and chronic respiratory failure: Most likely due to ongoing PNA. As discussed above Present on Admission?: Yes (6) Seizure: Seizure precautions, Keppra level pending, Continue Keppra 1000 mg bID Present on Admission?: Yes (7) Dyslipidemia: Fasting lipid panel pending. Continue Atorvastatin 40 mg PO BID Present on Admission?: Yes (8) Hypertension: Mostly stable, continue holding diltiazem and metoprolol while pt severely bradycardic. Continue lisinopril 20 mg Qhs. Present on Admission?: Yes (9) Hypothyroidism (acquired): TSH -4.12 normal, continue home dose of Levothyroxine 25 mcg QAM. Present on Admission?: Yes (10) Paroxysmal atrial fibrillation: Pt is now severely bradycardic. Please see above plan. Present on Admission?: Yes (11) Diabetes mellitus: A1c pending, SSI, Accuchecks AC&HS.Glycemic control per pharmacy. Present on Admission?: Yes History of Present Illness Primary Care Provider: Lorna Tucker DO The patient is a 78 year old male with PMHx of HTN, Hypothyroidism, dyslipidemia, moderate cognitive impairment, paroxysmal A fibs, DM ty 2, who presents to the Emergency Room with complaints of constant weakness starting last night. The patient's states the patient was not acting right last night. She states the patient was cold last night and could not get out of his chair. She states she called the home nurse and the home nurse told her to come to the ED. The patient denies having headaches, nausea, vomiting, fevers, SOB, and increased cough, syncope or near syncope. The patient denies taking new medications for A-Fib. The states the patient was admitted recently and had a nodule taken off his right lung by Dr. Lynn.The LN was negative for metastatic CA.CTAchest:IMPRESSION:No evidence of pulmonary embolus.Extensive dependent consolidation in the posterior segment of the right upper lobe concerning for aspiration/aspiration pneumonitis or pneumonia.Dependent peribronchovascular and tree-in-bud opacities in the lower lobes also concerning for aspiration.Extensive secretions or aspirated material in the trachea.Underlying emphysema.Mediastinal and bilateral hilar lymphadenopathy is likely reactive. Attention on follow-up.Mild scarring megaly with severe coronary artery calcification.Labs are reviewed: Na 133, K, 4.1, Bun 12, Cr 0.97, GFR 75.9, Glu 132, Lactate 1.9, Mg 1.7, replanished, Albumin 3.2, TSH 4 .120, Digoxin 0.2 L, WBC 9.14, HgB 12.3, Hct 38, Plt 201.Urine neg.EKG :Atrial flutter with variable A-V block Abnormal ECG,When compared with ECG of 11-JUL-2019 09:29,Atrial flutter has replaced Sinus rhythm,QT has lengthened. Decision was made to admit pt to PCU on tele for A-Flutter/Elijah and possible PNA. Allergies Allergy/AdvReac Type Severity Reaction Status Date / Time pollen extracts Allergy Mild CONGESTION Verified 07/11/19 10:44 Home Medications Home Medications Medication Instructions Recorded Confirmed Type aspirin [Aspir-81] 81 mg PO BID 02/02/18 07/11/19 History cyanocobalamin (vitamin B-12) 1,000 mcg PO QAM #180 tab 10/22/18 07/11/19 Rx 1,000 mcg tablet calcium carbonate 600 mg (1,500 2 tab PO QDD 09/11/19 03/05/20 History mg)-vitamin D3 400 unit tablet Vitamin D3 4,000 unit PO HS 01/29/19 07/11/19 History fluticasone propionate 50 1 - 2 sprays INTNAS DAILY PRN gm 02/02/19 07/11/19 History mcg/actuation nasal spray,suspension fluticasone fur. 100 mcg-umeclid 1 inh INHALATION QAM #60 ea 04/10/19 07/11/19 Rx 62.5 mcg-vilant 25 mcg inhalat.powder apixaban 5 mg tablet 5 mg PO BID #180 tab 04/12/19 07/11/19 Rx levetiracetam 500 mg tablet 1,000 mg PO BID #28 tab 05/21/19 07/11/19 Rx metoprolol tartrate 100 mg tablet 100 mg PO BID #180 tab 05/21/19 07/11/19 Rx glimepiride 2 mg tablet 4 mg PO QAM #180 tab 05/24/19 07/11/19 Rx sertraline 100 mg tablet 100 mg PO QAM #90 tab 05/24/19 07/11/19 Rx levothyroxine 25 mcg tablet 25 mcg PO QAM #90 tab 05/27/19 07/11/19 Rx albuterol sulfate 90 mcg/actuation 2 puffs INH Q4H PRN #18 gm 06/11/19 07/11/19 Rx aerosol inhaler Portable Oxygen #1 ea 06/19/19 06/26/19 Rx albuterol sulfate 2.5 mg INH .COMPLEX PRN #90 ml 06/20/19 07/11/19 Rx metformin 1,000 mg tablet 1,000 mg PO BID #180 tab 06/21/19 07/11/19 Rx atorvastatin [Lipitor] 40 mg PO HS 07/11/19 07/11/19 History diltiazem HCl [Cartia XT] 240 mg PO HS 07/11/19 07/11/19 History lisinopril 20 mg PO HS 07/11/19 07/11/19 History montelukast 10 mg PO HS 07/11/19 07/11/19 History Past Med/Surg History Medical History Abdominal aortic aneurysm (AAA), 30-34 mm diameter (Chronic) Anxiety Arteriosclerotic coronary artery disease (Chronic) Asthma (Chronic) Atrial flutter DX [address] CUELLAR IN [place] Benign prostatic hyperplasia with urinary obstruction (Chronic) CAD (coronary artery disease) Chronic anticoagulation (Chronic) COPD, moderate (Chronic) Depression (Chronic) Dyslipidemia (Chronic) Hypertension (Chronic) Hypothyroidism (acquired) (Chronic) Mild cognitive impairment (Chronic) On home oxygen therapy AT NIGHT Osteoarthritis Osteoporosis (Chronic) Paroxysmal atrial fibrillation (Chronic) DX [address] CUELLAR IN [place] Seizure (Acute) 01/29/19 - X2 ON THAT DAY AND WAS ADMITTED AND STARTED ON [place] AND NO SEIZURE SINCE TIA (transient ischemic attack) 2017 X 1 AND NONE SINCE Tremor HANDS Type 2 diabetes mellitus (Chronic) Surgical History H/O 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 [place] History of lung biopsy (03/27/19) Navigational Bronchoscopy with ICG Dye, Robotic Right Video Assisted Thoracoscopy with Right Lower Lobe Wedge Resection with Mediastinal Lymphadenectomy and Lymph Node Biopsy Dr. Lynn 03/27/19 Hx of cardiac cath 2017 -- HEART CATH WITH STENT [facility] WITH DR CUELLAR LAST SEEN 12/20/2018 Family History Other COPD (chronic obstructive pulmonary disease) Depression Family history non-contributory Denies family history of Ovarian cancer Prostate cancer Coronary heart disease Heart disease Myocardial infarction Breast cancer Seizure Lung cancer Colorectal cancer Social History Preferred Language: Bahraini Communication Ability: Effective Visual Impairment: No Limitations Hearing Ability: Use of Hearing Aid Pinmaker Required: No Beliefs That Will Affect Care: None marital status: Current Living Situation: Spouse current occupational status: retired 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, 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[employer] ([employer]) Other Information That Helps Us Care for You: No Feels Safe at Home: Yes Safety Concerns: Feels Safe At This Time Smoking Status: Former smoker Tobacco Type: cigarettes ; Cigarettes Per Day: 20-40 ; Do You Dip or Chew Tobacco: No (uses herbal chew, tobaccoless, 1 can in 2 days) ; Smoking End Date: 1973 ; Number of Years Since Quit: 34 ; Second Hand Exposure: No ; Tobacco Cessation Education Requested by Patient: No Hx Alcohol Use: No Hx Substance Use: No Childhood Exposure to Second-Hand Smoke: Yes Diet Comment: regular caffeine: No Dental Care, Regularly: No Physical Activity Frequency: Does not Exercise Seatbelt Use: always Sunscreen Use: Yes Review of Systems Review of Systems: All systems reviewed & are unremarkable except as noted in HPI & below Physical Exam Constitutional: WD/WN, vitals as above well developed and + ill appearing Eyes: PERRL, conjunctivae normal, anicteric sclerae ENMT: Ears: + hearing impairment Neck: trachea midline, no thyromegaly Respiratory: + respiratory distress, + labored breathing and + uses accessory muscles Auscultation: + crackles and + wheezes Cardiovascular: Rate/Rhythm: + irregularly irregular Heart Sounds: normal S1 and normal S2 Palpation: + palpable S3 Vessels: dorsalis pedis pulses present Extremities: + pedal edema Gastrointestinal (Abdomen): normal bowel sounds, soft, nontender, no hepatosplenomegaly Skin: no rashes, warm and dry Neurologic: patellar DTR's 2+ bilat, sensation intact Psychiatric: Insight: + limited insight Results & Data Vital Signs (Past 12 Hours) Vital Signs Temp Pulse Pulse Resp BP BP Pulse Ox 07/11/19 10:43 77 20 125/64 96 07/11/19 09:34 95 07/11/19 09:12 36.8 C 52 L 20 117/67 97 07/11/19 09:02 50 L 20 125/64 95 Code Status & VTE Plan Code Status full code VTE Prophylaxis Plan VTE Prophylaxis will be ordered: Yes PG Care Time/CCT Total # of Minutes Spent Total Time Spent with Patient: Total time spent is greater than 50% in coordination of care (as documented) at patient's floor/unit and/or counseling patient: Coding Level of Care Code 84254 Initial Inpt Care Lvl 3 Diagnoses Pneumonia J18.9 Laterality: right Lung location: lower lobe of lung Pneumonia type: due to unspecified organism Weakness R53.1 Hypomagnesemia E83.42 Bradycardia R00.1 Acute and chronic respiratory failure J96.20 Seizure R56.9 Dyslipidemia E78.5 Hypertension I10 Hypothyroidism (acquired) E03.9 Paroxysmal atrial fibrillation I48.0 Diabetes mellitus E11.9 (1) Pneumonia Laterality: right Lung location: lower lobe of lung Pneumonia type: due to unspecified organism Qualified Code(s): J18.9 - Pneumonia, unspecified organism
[2019-07-11 12:49] LABS: Influenza A virus by PCR Neg for Influ A (Neg); Influenza B virus by PCR Neg for Influ B (Neg)
[2019-07-11] MEDS ORDERED: ALBUTEROL 0.083% NEBU SOLN 3 ML VIAL INH PRN (13:22)
[2019-07-11] MEDS ORDERED: ALBUTEROL HFA 8 GM INHALER INH PRN (13:22)
[2019-07-11] MEDS ORDERED: ONDANSETRON INJ 2 MG/ML 2 ML VIAL IV PRN (13:22)
[2019-07-11] MEDS ORDERED: GLUCOSE 10 TABS/TUBE PO PRN (13:22)
[2019-07-11] MEDS ORDERED: FLUTICASONE PROPIONATE NA SPR 16 GM BTL NAE PRN (13:22)
[2019-07-11] MEDS ORDERED: CARBOHYDRATES FOR HYPOGLYCEMIA PO PRN (13:22)
[2019-07-11] MEDS ORDERED: DEXTROSE 50% 50 ML SYRINGE IV PRN (13:22)
[2019-07-11] MEDS ORDERED: ACETAMINOPHEN 325 MG TAB PO PRN (13:22)
[2019-07-11] MEDS ORDERED: POLYETHYLENE (MIRALAX) 17 GM PACK PO PRN (13:22)
[2019-07-11] MEDS ORDERED: ALUMINUM/MAGNESIUM SUSP 30 ML UDC PO PRN (13:22)
[2019-07-11] MEDS ORDERED: DC ALL PREVIOUSLY ORDERED DIABETES MEDS ONE (13:22)
[2019-07-11] MEDS ORDERED: GLUCAGON FOR INJ 1 MG VIAL SQ PRN (13:22)
[2019-07-11] MEDS ORDERED: GLUCOSE 40% GEL 15 GM TUBE PO PRN (13:22)
[2019-07-11] MEDS ORDERED: MAGNESIUM HYDROXIDE SUSP 30 ML UDC PO PRN (13:22)
[2019-07-11] MEDS ORDERED: PHARMACY GLYCEMIC MGMT CONSULT SCH (13:46)
[2019-07-11] MEDS ORDERED: methylPREDNISolone 40 MG in SYRINGE 0 ML IV SCH (14:00)
[2019-07-11 14:31] LABS: Estimated Average Glucose 154 mg/dl
[2019-07-11] MEDS: DOXYCYCLINE HYCLATE 100 MG in DEXTROSE 5% 100 ML IV SCH (14:36)
[2019-07-11] MEDS: levETIRAcetam 500 MG TAB PO SCH ×2 (14:36→20:39)
[2019-07-11] MEDS: LEVOTHYROXINE SODIUM 25 MCG TABLET PO SCH (14:37)
[2019-07-11] MEDS ORDERED: INSULIN HUMAN NPH SC ONE (14:45)
[2019-07-11] MEDS: ALBUT/IPRATROP 3MG/0.5MG NEB 3 ML VIAL NEB SCH ×2 (14:49→18:47)
--- NOTE | 2019-07-11 15:14 | Pharmacy Report ---
Glycemic Control Consultation - Date of Service July 11, 2019 - Scope Scope: Glycemic Pharmacist consulted for glycemic control and to write orders per [facility] inpatient glycemic control protocol. - Objective Weight: 70.5 kg [place] BSG (last 24hrs): 07/11/19 07/11/19 09:35 14:03 Glucose 132 H POC Glucose 123 H Laboratory Data (last 24hrs): 07/11/19 09:35 Potassium 4.1 Carbon Dioxide 25 Anion Gap 7.0 Creatinine 0.96 Est Cr Clr Drug Dosing 64.3 HbA1c: Hemoglobin A1c 7.0 % (4.5-5.6) H 07/11/19 09:35 - Recent Pertinent Medications Outpatient Anti-diabetic Regimen: * Glimepiride 4 mg QAM * Metformin 1000 mg PO BID * A1c = 7 % on 07/11/19 Risk Factors for Insulin Resistance: * Steroids: Solu medrol 40 mg IV Q12h * Infection: Pneumonia. On Doxycycline * Diet: T2DM - Assessment & Plan Assessment & Plan: ASSESSMENT: * 78 y/o M with T2DM managed as outpatient on oral antidiabetic meds is currently admitted for acute respiratory failure and Pneumonia. * Oral agents are not recommended for inpatient use d/t drug interactions, changing PO intake, and difficulty titrating for acute hyper/hypoglycemia. ADA recommends re-initiating outpatient oral agents 1-2 days prior to di scharge if/when appropriate if they were held on admission. * Will hold oral agents for admission and utilize SQ basal bolus insulin regimen which is the recommended regimen for inpatient glycemic control. * Will initiate weight based insulin dosing for insulin kameron patient and titrate based on BSG trends. * Patient is currently ordered Solu Medrol 40 mg IV q12h. Steroids increase post-prandial BSGs. Therefore basal NPH insulin has also been ordered to prevent steroid induced hyperglycemia to be given at the same time as Solu medrol IV. * NPH dose is based on weight and between a stress factor of 2 and 3 on the insulin calculator and depending on BSG. PLAN FOR INPATIENT GLYCEMIC CONTROL: * Holding outpatient oral diabetes medications * Basal insulin * NPH 6 units x1 SQ given with 1st dose of Solu Medrol * NPH SQ Q12h with IV Solu medrol- dosing based on BSGs as follows: - for BSG less than 150= give 0 units - for BSG 150 - 200= give 10 units - for BSG greater than 200= give 15 units * Bolus insulin * NovoLog per scale ACHS or Q6hrs while NPO * Goal Range: Low 110 mg/dL - High 150 mg/dL * Correction Factor: 25 mg/dL/unit * Nutritional / Prandial insulin per carb ratio of 1 unit per 8 grams CHO consumed * Please note that the plan above was derived based on current level of insulin resistance and hospital stress. These recommendations are appropriate for inpatient admission only. Plan of care upon discharge will need to be reassessed to avoid potential outpatient hypo/hyperglycemia. Thank you.
[2019-07-11] MEDS: UMECLIDINIUM/VILANTEROL 62.5/25MCG 7 PUFFS/INHALER INH SCH (15:52)
[2019-07-11] MEDS: FLUTICASONE FUROATE 100MCG 14 PUFFS/INHALER INH SCH (15:52)
--- NOTE | 2019-07-11 16:01 | XCELERA ---
[id number] \\[id number]
[2019-07-11] MEDS: INSULIN ASPART 100 UNITS/ML 3 ML PEN SC SCH ×3 (17:10→23:57)
[2019-07-11] MEDS: CALCIUM 600MG + VIT D 400 IU TAB PO SCH (17:15)
[2019-07-11] MEDS: PIPERACILLIN/TAZOBACTAM 3.375 GM in DEXTROSE 5% 100 ML IV SCH ×2 (17:15→23:48)
--- NOTE | 2019-07-11 18:09 | Electrocardiogram Report ---
Test Reason : Blood Pressure : / mmHG Vent. Rate : 060 BPM Atrial Rate : 060 BPM P-R Int : 142 ms QRS Dur : 076 ms QT Int : 416 ms P-R-T Axes : 060 025 030 degrees QTc Int : 416 ms Poor data quality, interpretation may be adversely affected Sinus rhythm with Premature atrial complexes in a pattern of bigeminy Moderate voltage criteria for LVH, may be normal variant Nonspecific ST abnormality Abnormal ECG When compared with ECG of 04-JUN-2019 15:54, Premature atrial complexes are now Present Confirmed by Edgar Lal ([id number]) on 07/11/2019 6:09:28 PM Referred By: ED Confirmed By:Edgar Lal
[2019-07-11] MEDS: NICOTINE 14 MG/24 HR PATCH TD SCH (20:36)
[2019-07-11] MEDS: ASPIRIN 81 MG ECTAB PO SCH (20:37)
[2019-07-11] MEDS: lisinopriL 20 MG TAB PO SCH (20:37)
[2019-07-11] MEDS: MONTELUKAST SODIUM 10 MG TABLET PO SCH (20:38)
[2019-07-11] MEDS: ATORVASTATIN 40 MG TAB PO SCH (20:38)
[2019-07-11] MEDS: CHOLECALCIFEROL 1,000 UNITS 25 MCG TAB PO SCH (20:38)
[2019-07-11] MEDS: APIXABAN 5 MG TABLET PO SCH (20:39)
[2019-07-11] MEDS: INSULIN HUMAN NPH SC SCH (20:40)
[2019-07-11] MEDS: methylPREDNISolone 40 MG in SYRINGE 0 ML IV SCH (22:10)
--- NOTE | 2019-07-11 22:28 | Electrocardiogram Report ---
Test Reason : Blood Pressure : / mmHG Vent. Rate : 074 BPM Atrial Rate : 296 BPM P-R Int : 000 ms QRS Dur : 076 ms QT Int : 422 ms P-R-T Axes : 000 047 052 degrees QTc Int : 468 ms Atrial flutter with variable A-V block Abnormal ECG When compared with ECG of 11-JUL-2019 09:29, Atrial flutter has replaced Sinus rhythm QT has lengthened Confirmed by Edgar Lal ([id number]) on 07/11/2019 10:28:39 PM Referred By: REFERRED SELF Confirmed By:Edgar Lal
[2019-07-11] MEDS ORDERED: KETOROLAC TROMETHAMINE 15 MG/ML VIAL IV ONE (22:56)
[2019-07-11] MEDS ORDERED: LACTATED RINGER'S 1,000 ML IV SCH (23:00)
[2019-07-12] MEDS ORDERED: METOPROLOL TARTRATE 25 MG TAB PO PRN (01:23)
[2019-07-12] MEDS: DOXYCYCLINE HYCLATE 100 MG in DEXTROSE 5% 100 ML IV SCH ×2 (01:23→14:19)
[2019-07-12] MEDS: INSULIN ASPART 100 UNITS/ML 3 ML PEN SC SCH ×5 (04:08→21:19)
[2019-07-12 05:46] LABS: Basophils # (auto) 0.01 K/uL (0-0.2); Basophils % (auto) 0.3 %; Hematocrit (blood only) 37.1 % (42-52); Hemoglobin 12.5 g/dL (14.0-18.0); Lymphocytes # (auto) 0.61 K/uL (1.2-3.4); Lymphocytes % (auto) 19.1 %; Mean Corpuscular Hemoglobin 26.9 pg (25-34); Mean Corpuscular Hgb Conc 33.7 g/dL (32-36); Mean Corpuscular Volume 79.8 fL (80-100); Mean Platelet Volume 9.2 fL (7.4-10.4); Monocytes # (auto) 0.06 K/uL (0.11-0.59); Monocytes % (auto) 1.9 %; Neutrophils # (auto) 2.51 K/uL (1.4-6.5); Neutrophils % (auto) 78.7 %; Platelet Count 204 K/uL (130-400); RDW Coefficient of Variation 17.8 % (11.5-14.5); RDW Standard Deviation 51.6 fL (36.4-46.3); Red Blood Count 4.65 M/uL (4.7-6.1); White Blood Count 3.19 K/uL (4.8-10.8)
[2019-07-12 06:14] LABS: Albumin Level 3.2 gm/dl (3.4-5.0); BUN Creatinine Ratio 15.5 (10-20); Creatinine Clr Calc Pharmacy 59.9 ml/min; Est GFR (African American) 80.8; Est GFR (Non-African American) 69.7; Magnesium 2.2 mg/dl (1.8-2.4); Potassium 4.4 mmol/L (3.5-5.1)
[2019-07-12 06:19] LABS: Albumin Globulin Ratio 0.7 (0.9-2); Bilirubin,Total 0.3 mg/dl (0.2-1); Globulin 4.7 gm/dl (2.5-4.0); Total Protein 7.9 gm/dl (6.4-8.2)
[2019-07-12] MEDS: LEVOTHYROXINE SODIUM 25 MCG TABLET PO SCH (06:34)
[2019-07-12] MEDS: ALBUT/IPRATROP 3MG/0.5MG NEB 3 ML VIAL NEB SCH ×4 (07:03→19:34)
[2019-07-12] MEDS ORDERED: METOPROLOL TARTRATE 1 MG/ML VIAL IV PRN (07:44)
[2019-07-12] MEDS: INSULIN HUMAN NPH SC SCH ×2 (08:02→21:20)
[2019-07-12] MEDS: methylPREDNISolone 40 MG in SYRINGE 0 ML IV SCH ×2 (08:08→21:16)
[2019-07-12] MEDS: NICOTINE 14 MG/24 HR PATCH TD SCH (08:09)
[2019-07-12] MEDS: UMECLIDINIUM/VILANTEROL 62.5/25MCG 7 PUFFS/INHALER INH SCH (08:09)
[2019-07-12] MEDS: FLUTICASONE FUROATE 100MCG 14 PUFFS/INHALER INH SCH (08:10)
[2019-07-12] MEDS: APIXABAN 5 MG TABLET PO SCH ×2 (08:10→21:15)
[2019-07-12] MEDS: SERTRALINE HCL 100 MG TABLET PO SCH (08:10)
[2019-07-12] MEDS: ASPIRIN 81 MG ECTAB PO SCH ×2 (08:10→21:14)
[2019-07-12] MEDS: levETIRAcetam 500 MG TAB PO SCH ×2 (08:11→21:15)
[2019-07-12] MEDS: CYANOCOBALAMIN 500 MCG TABLET (VITAMIN B-12) PO SCH (08:11)
[2019-07-12] MEDS: PIPERACILLIN/TAZOBACTAM 3.375 GM in DEXTROSE 5% 100 ML IV SCH ×2 (08:16→16:16)
--- NOTE | 2019-07-12 09:13 | Cardiology Consultation ---
Date of Consultation July 12, 2019 Assessment & Plan (1) Paroxysmal atrial fibrillation: He has a history of atrial fibrillation, since we do not follow him as an outpatient and I do not know what outpatient monitoring he has had I only know what has happened here in the hospital. When he was in March 2019 he had paroxysmal atrial fibrillation with a rapid heart rate and he was started on the medications which have now been held. He is having the same issue here. He will need rate control, I am not convinced that he had significant bradycardia, I do not see documentation of it, and I think we should restart his medications. Perhaps we should monitor him for another day or 2 to make sure he does not become significantly bradycardic. If he does he will probably need a pacemaker, he does need heart rate control especially since he has coronary artery disease. I have not seen atrial flutter which is what the ablation was for, so that appears to have been successful in the past. Antiarrhythmic therapy is another possibility but I would like to try rate control first. (2) Anticoagulant long-term use: He will need anticoagulation for his atrial fibrillation, I believe he has been tolerating Eliquis well and I would continue that. (3) Arteriosclerotic coronary artery disease: He has a history of coronary artery disease, I do not have details but I do not believe that is active at this time. His initial troponin was negative. I am little concerned however with his rapid heart rates and these need to be brought under control. History of Present Illness Attending Physician: Neri Beckman MD History of Present Illness This is a 78-year-old male with a history of atrial arrhythmias and coronary artery disease. He also has hypertension and diabetes mellitus. He was hospitalized in June 2015 with atrial flutter and a rapid heart rate, catheterization performed June 11, 2015 showed diffuse disease but I do not believe intervention was performed, I believe the plan was to send him out at that time. He had episodes of rapid heart rate, he was on warfarin at the time and this was switched to Eliquis. Subsequently he had flutter ablation performed here on June 18, 2015 and remained on Eliquis. We do not see him regularly here, I believe he follows with Dr. Wiggins in [place] for his atrial arrhythmia and his coronary disease, although I do not know how closely he is followed. He seems very confused as to his follow-up, he told me he saw his service parts coordinator about a month ago but he said [facility], but we have not seen him. I doubt he has been seen since he was hospitalized in March 2019. 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 He was subsequently in normal rhythm in ICU and it appeared to be paroxysmal but when he had it it was rapid. He presented July 11, 2019 with weakness overnight and apparently was not acting normally at home. Evaluation was concerning for pneumonia although apparently it is in the location of his prior wedge resection and there is little other indication that he has pneumonia. Here he was noted to have paroxysmal atrial fibrillation with rapid heart rates, as before. An echocardiogram done on July 11, 2019 shows normal left ventricular size and function with mild concentric left ventricular hypertrophy and severe left atrial dilatation. He does have aortic sclerosis without stenosis. He was also noted to be bradycardic at times and tachycardic other times and his diltiazem and metoprolol were held on admission. At the time my evaluation he has no specific complaints. He tells me that he is unaware of his rhythm, he denies lightheadedness or dizziness, he denies palpitations or chest discomfort. He is mostly concerned that nursing took away his box of snuff. Allergies Allergy/AdvReac Type Severity Reaction Status Date / Time pollen extracts Allergy Mild CONGESTION Verified 07/11/19 10:44 Home Medications Home Medications Medication Instructions Recorded Confirmed Type aspirin [Aspir-81] 81 mg PO BID 02/02/18 07/11/19 History cyanocobalamin (vitamin B-12) 1,000 mcg PO QAM #180 tab 10/22/18 07/11/19 Rx 1,000 mcg tablet calcium carbonate 600 mg (1,500 2 tab PO QDD 01/16/19 07/11/19 History mg)-vitamin D3 400 unit tablet Vitamin D3 4,000 unit PO HS 01/29/19 07/11/19 History fluticasone propionate 50 1 - 2 sprays INTNAS DAILY PRN gm 02/02/19 07/11/19 History mcg/actuation nasal spray,suspension fluticasone fur. 100 mcg-umeclid 1 inh INHALATION QAM #60 ea 04/10/19 07/11/19 Rx 62.5 mcg-vilant 25 mcg inhalat.powder apixaban 5 mg tablet 5 mg PO BID #180 tab 04/12/19 07/11/19 Rx levetiracetam 500 mg tablet 1,000 mg PO BID #28 tab 05/21/19 07/11/19 Rx metoprolol tartrate 100 mg tablet 100 mg PO BID #180 tab 05/21/19 07/11/19 Rx glimepiride 2 mg tablet 4 mg PO QAM #180 tab 05/24/19 07/11/19 Rx sertraline 100 mg tablet 100 mg PO QAM #90 tab 05/24/19 07/11/19 Rx levothyroxine 25 mcg tablet 25 mcg PO QAM #90 tab 05/27/19 07/11/19 Rx albuterol sulfate 90 mcg/actuation 2 puffs INH Q4H PRN #18 gm 06/11/19 07/11/19 Rx aerosol inhaler Portable Oxygen #1 ea 06/19/19 06/26/19 Rx albuterol sulfate 2.5 mg INH .COMPLEX PRN #90 ml 06/20/19 07/11/19 Rx metformin 1,000 mg tablet 1,000 mg PO BID #180 tab 06/21/19 07/11/19 Rx atorvastatin [Lipitor] 40 mg PO HS 07/11/19 07/11/19 History diltiazem HCl [Cartia XT] 240 mg PO HS 07/11/19 07/11/19 History lisinopril 20 mg PO HS 07/11/19 07/11/19 History montelukast 10 mg PO HS 07/11/19 07/11/19 History Patient History Medical History Abdominal aortic aneurysm (AAA), 30-34 mm diameter (Chronic) Anxiety Arteriosclerotic coronary artery disease (Chronic) Asthma (Chronic) Atrial flutter DX [address] CUELLAR IN [place] Benign prostatic hyperplasia with urinary obstruction (Chronic) CAD (coronary artery disease) Chronic anticoagulation (Chronic) COPD, moderate (Chronic) Depression (Chronic) Dyslipidemia (Chronic) Hypertension (Chronic) Hypothyroidism (acquired) (Chronic) Mild cognitive impairment (Chronic) On home oxygen therapy AT NIGHT Osteoarthritis Osteoporosis (Chronic) Paroxysmal atrial fibrillation (Chronic) DX [address] CUELLAR IN [place] Seizure (Acute) 01/29/19 - X2 ON THAT DAY AND WAS ADMITTED AND STARTED ON [place]PR[place] AND NO SEIZURE SINCE TIA (transient ischemic attack) 2017 X 1 AND NONE SINCE Tremor HANDS Type 2 diabetes mellitus (Chronic) Surgical History H/O 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 Lynn 03/27/19 Hx of cardiac cath 2017 -- HEART CATH WITH STENT [facility] WITH [address] CUELLAR LAST SEEN 12/20/2018 Family History Other COPD (chronic obstructive pulmonary disease) Depression Family history non-contributory Denies family history of Ovarian cancer Prostate cancer Coronary heart disease Heart disease Myocardial infarction Breast cancer Seizure Lung cancer Colorectal cancer Social History Preferred Language: Sami Communication Ability: Effective Visual Impairment: No Limitations Hearing Ability: Use of Hearing Aid Director Of Safety Required: No Beliefs That Will Affect Care: None marital status: Current Living Situation: Spouse current occupational status: retired 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, 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[employer]) Other Information That Helps Us Care for You: No Feels Safe at Home: Yes Safety Concerns: Feels Safe At This Time Smoking Status: Former smoker Tobacco Type: cigarettes ; Cigarettes Per Day: 20-40 ; Do You Dip or Chew Tobacco: No (uses herbal chew, tobaccoless, 1 can in 2 days) ; Smoking End Date: 1973 ; Number of Years Since Quit: 34 ; Second Hand Exposure: No ; Tobacco Cessation Education Requested by Patient: No Hx Alcohol Use: No Hx Substance Use: No Childhood Exposure to Second-Hand Smoke: Yes Diet Comment: regular caffeine: No Dental Care, Regularly: No Physical Activity Frequency: Does not Exercise Seatbelt Use: always Sunscreen Use: Yes Physical Exam Physical Exam: Constitutional: Alert, cooperative and in no distress. He is oriented x3. HEENT: Unremarkable Neck: No jugular venous distention, carotid pulses are normal and equal bilaterally without bruits. Pulmonary: Clear to auscultation bilaterally. Cardiac: Regular rhythm with a soft crescendo decrescendo murmur at the base, no gallop or rub. Abdomen: Soft, nontender with normal bowel sounds. Extremities: No edema. Distal pulses intact. Neurologic: No focal findings. Gait is steady. Skin: No rash, ecchymoses or petechiae. Results & Data ([facility]) Vital Signs (Past 12 Hours) Vital Signs Temp Pulse Pulse Resp BP BP Pulse Ox 07/12/19 08:03 141 H 144/65 H 07/12/19 07:31 67 07/12/19 07:20 36.8 C 83 19 144/65 H 96 07/12/19 07:03 97 H 16 96 07/12/19 03:50 36.3 C L 63 18 148/72 H 93 07/11/19 23:08 36.4 C L 101 H 20 126/70 96 07/11/19 22:20 90 Laboratory Results Cardiac Enzymes 07/11/19 07/12/19 Range/Units 09:35 05:20 AST 15 15 (15-37) U/L Troponin I < 0.015 (0-0.045) ng/ml Coagulation 07/11/19 Range/Units 09:35 PT 11.4 (9.0-12.0) Seconds APTT 29.9 (21.0-31.0) Seconds Lipids 07/12/19 Range/Units 05:20 Triglycerides 37 (0-150) mg/dl Cholesterol 128 (0-200) mg/dl HDL Cholesterol 47 mg/dl Cholesterol/HDL Ratio 3 CBC 07/11/19 07/12/19 Range/Units 09:35 05:20 WBC 9.14 3.19 L D (4.8-10.8) K/uL RBC 4.87 4.65 L (4.7-6.1) M/uL Hgb 12.3 L 12.5 L (14.0-18.0) g/dL Hct 38.6 L 37.1 L (42-52) % Plt Count 201 204 (130-400) K/uL Neut # (Auto) 6.40 2.51 (1.4-6.5) K/uL Lymph # (Auto) 0.99 L 0.61 L (1.2-3.4) K/uL [place] # (Auto) 1.26 H 0.06 L (0.11-0.59) K/uL Eos # (Auto) 0.39 0.00 (0-0.5) K/uL Baso # (Auto) 0.08 0.01 (0-0.2) K/uL Comprehensive Metabolic Panel 07/11/19 07/12/19 Range/Units 09:35 05:20 Sodium 133 L 134 L (136-145) mmol/L Potassium 4.1 4.4 (3.5-5.1) mmol/L Chloride 101 102 (98-107) mmol/L Carbon Dioxide 25 26 (21-32) mmol/L BUN 12 16 (7-18) mg/dl Creatinine 0.96 1.03 (0.6-1.4) mg/dl Glucose 132 H 166 H (70-99) mg/dl Calcium 9.5 10.0 (8.5-10.1) mg/dl AST 15 15 (15-37) U/L ALT 21 21 (12-78) U/L Alkaline Phosphatase 86 83 (45-117) U/L Total Protein 7.9 7.9 (6.4-8.2) gm/dl Albumin 3.2 L 3.2 L (3.4-5.0) gm/dl Intake and Output 07/11/19 07/12/19 07/12/19 22:59 06:59 14:59 Intake Total 225 / 1281.667 736.667 / 1281.667 Balance 225 / 1281.667 736.667 / 1281.667 Intake: IV 225 / 961.667 416.667 / 961.667 Vibramycin 100 mg In D5 100 ml 110 / 220 110 / 220 @ 50 mls/hr IV Q12H PATO Rx#: [id number] Lr 1,000 ml @ 125 mls/hr IV . 191.667 / 191.667 Q8H PATO Rx#:[id number] Zosyn 3.375 gm In D5 100 ml @ 115 / 230 115 / 230 28.75 mls/hr IV Q8H PATO Rx#: [id number] Oral 320 / 320 Other: # Unmeasured Voids 4 1 Weight 70.5 kg 66 kg Diagnostic Findings Electrocardiogram on admission: Sinus rhythm with premature atrial beats, overall heart rate about 60 bpm. Telemetry: He has intermittent atrial fibrillation and sinus rhythm, he did have some sinus bradycardia on first arrival although I do not see any severe slow heart rates. Now he is in atrial fibrillation with a rapid heart rate (140-150 bpm) off of medications PG Care Time/CCT Total # of Minutes Spent Total Time Spent with Patient: Total time spent is greater than 50% in coordination of care (as documented) at patient's floor/unit and/or counseling patient: Coding Level of Care Code 54978 Initial Inpt Care Lvl 3 Diagnoses Paroxysmal atrial fibrillation I48.0 Anticoagulant long-term use Z79.01 Arteriosclerotic coronary artery disease I25.10
--- NOTE | 2019-07-12 09:16 | Hospitalist Progress Note ---
Date of Service July 12, 2019 Assessment & Plan (1) Pneumonia: No fever, chills, sweats, rigors. No leukocytosis No production of sputum Procalcitonin is negative Imaging revealed some opacification in the right upper lobe which is new since May 2019 Imaging the right lower lobe consistent with area where patient had wedge resection March 2019 Day #2 of doxycycline and Zosyn Speech-language pathology consulted for consideration of aspiration Repeat chest x-ray in the morning Oxygenating well on room air (2) Atelectasis: This appears chronic on previous imaging Incentive spirometry as tolerated Repeat chest x-ray in the morning (3) COPD, moderate: Mild to moderate obstructive pattern on PFTs No wheezes on exam Oxygenating well on room air (4) Paroxysmal atrial fibrillation: Anticoagulated with apixaban Telemetry reveals sinus tach this morning Continue metoprolol Cardiology consulted -appreciate Dr. Cedillo's input (5) Acute and chronic respiratory failure: COPD with history of tobacco abuse Nocturnal supplemental oxygen 2 L/min via nasal cannula Admission and Anticipated Discharge Date Admission Date: July 11, 2019 Subjective Attending: Dr. Neri Beckman Patient seen and examined at bedside. He reports that he came in because of a dry cough. He denies any fever, chills, sweats, rigors. He has no production of sputum. He has no hemoptysis. The patient denies chest pain or tightness. He presented for evaluation at the request of his due to the chronic cough. Procalcitonin is negative. Area of concern is in the right lower lobe at the area where wedge resection was completed and March 2019. Patient was reportedly bradycardic on admission. At this time he is in sinus tach with a heart rate of 98. He is unaware of any tachyarrhythmias. Of note, patient has a prior history of tobacco abuse but quit smoking several years ago. He then converted over to snuff. He currently uses a nicotine free tobacco-like product. He denies any urge for nicotine. The patient has no other acute complaints. Physical Exam Physical Exam: GENERAL : No acute distress. Seen in bedside chair. Pleasant. EYES: No icterus, gaze conjugate. Pupils equal round and reactive to light NOSE: No evidence of epistaxis. No nasal cannula is in place. Oxygenating well on room air MOUTH: No lesions or candidiasis. Mucosa moist NECK: Supple LUNGS: CTA B/L, no wheezes, rales or rhonchi. Good inspiratory effort with good breath sounds to the bases. HEART: Regular, telemetry with sinus tach with a rate of 98 ABDOMEN: Soft, NT, ND, BS Present. EXTREMITIES: No LE edema, pedal pulses intact and equal bilaterally NEURO: A&OX3. Results & Data ([facility]) Vital Signs (Past 12 Hours) Vital Signs Temp Pulse Pulse Resp BP BP Pulse Ox 07/12/19 08:03 141 H 144/65 H 07/12/19 07:31 67 07/12/19 07:20 36.8 C 83 19 144/65 H 96 07/12/19 07:03 97 H 16 96 07/12/19 03:50 36.3 C L 63 18 148/72 H 93 07/11/19 23:08 36.4 C L 101 H 20 126/70 96 07/11/19 22:20 90 Laboratory Results 07/12/19 05:20 07/12/19 05:[address] angio chest PE protocol CLINICAL HISTORY: 78 years-old Male presenting with weakness, cold limits, cardiomegaly, emphysema, postsurgical changes of the right lung, abnormal chest x-ray concerning for pneumonitis, CT for further evaluation. TECHNIQUE: Multidetector CT angiography of the chest was performed after administration of intravenous contrast. 3-D volumetric and/or maximum intensity projection (MIP) images were subsequently reconstructed for review. IV contrast: 120 mL of Optiray 320. One or more dose lowering techniques were used consistent with the principles of ALARA (as low as reasonably achievable), including automatic exposure control, mA or kV adjustment to individual patient size, and/or use of iterative reconstruction. COMPARISON: None. CT DOSE (mGy.cm): The estimated cumulative dose is 881.64 mGycm. FINDINGS: Principal Process Engineer topogram: Unremarkable. Pulmonary vasculature: The study is adequate for assessment of the pulmonary vascular tree. No filling defect within the pulmonary arteries to suggest embolus. Main pulmonary artery is not enlarged. No flattening of the interventricular septum. No intracardiac filling defect. No reflux of contrast into the hepatic veins. Remaining chest: Soft tissues: 2.5 cm low-density nodule in the subcutaneous tissue of the right anterior chest wall as on prior exam intimately associated with the acuteness likely representing an epidermal inclusion cyst. Additional similar lesion in the left axilla. Normal thyroid. Several prominent right paratracheal lymph nodes, which are similar to prior exam. An index node measures 9 mm in short axis. Additional enlarged precarinal, subcarinal, prevascular, and bilateral hilar nodes. An index precarinal node measures 11 mm in short axis, previously 9 mm. Atherosclerosis of the aorta. Severe three-vessel coronary artery calcification. Mild aortic valve calcification. Mild multichamber enlargement of the heart. Trace right pleural effusion. No pericardial effusion. 18 mm nodule in the right adrenal gland. Macroscopic fat may be present. This is unchanged. Lungs and airways: No pneumothorax. Extensive layering debris or secretions in the trachea. Marked bronchial wall thickening in the lower lobes with scattered subsegmental endobronchial debris. This is also seen to a lesser extent in the right upper lobe. Pulmonary arteries mildly enlarged relative to adjacent bronchi. No interlobular septal thickening. Mild upper lobe predominant centrilobular emphysema. Dependent solid consolidation in the posterior segment of the right upper lobe. Less extensive peribronchovascular opacities and tree-in-bud opacities dependently in the lower lobes. There is also bibasilar atelectasis. Solid 3 mm nodule in the left upper lobe (series 7 image 177), previously obscured by diffuse left upper lobe consolidation. Musculoskeletal: Degenerative changes of the spine. Chronic fracture of the right lateral eighth rib. Several old lateral left rib fractures also evident. IMPRESSION: 1. No evidence of pulmonary embolus. 2. Extensive dependent consolidation in the posterior segment of the right upper lobe concerning for aspiration/aspiration pneumonitis or pneumonia. 3. Dependent peribronchovascular and tree-in-bud opacities in the lower lobes also concerning for aspiration. 4. Extensive secretions or aspirated material in the trachea. 5. Underlying emphysema. 6. Mediastinal and bilateral hilar lymphadenopathy is likely reactive. Attention on follow-up. 7. Mild scarring megaly with severe coronary artery calcification. 8. Additional findings as above. ACT 112: Negative or not required by law. Results electronically sent 07/11/2019 10:47 AM to: Marck De La Fuente DO Electronically signed by: Sekou Mlian M.D. 07/11/2019 10:47 AM PG Care Time/CCT Total # of Minutes Spent Total Time Spent with Patient: Total time spent is greater than 50% in coordina tion of care (as documented) at patient's floor/unit and/or counseling patient:30 minutes Coding Level of Care Code 23263 Subseq Hosp Care Lvl 2 Diagnoses Pneumonia J18.9 Laterality: right Lung location: lower lobe of lung Pneumonia type: due to unspecified organism Atelectasis J98.11 COPD, moderate J44.9 Paroxysmal atrial fibrillation I48.0 Acute and chronic respiratory failure J96.20 (1) Pneumonia Laterality: right Lung location: lower lobe of lung Pneumonia type: due to unspecified organism Qualified Code(s): J18.9 - Pneumonia, unspecified organism
[2019-07-12] MEDS: METOPROLOL TARTRATE 100 MG TAB PO SCH ×3 (10:30→22:53)
--- NOTE | 2019-07-12 14:26 | Fluoroscopy Report ---
FL video swallow HISTORY: r/o aspiration secondary to current pneumonia TECHNIQUE: Video fluoroscopic evaluation of swallowing was performed in the AP and lateral projection s by the speech pathology staff. The patient is fed nectar-thick and thin liquid barium, a barium coa tristin wafer, and barium pudding. FLUOROSCOPY TIME: 1.8 minutes. A cine loop submitted. COMPARISON STUDY: None. FINDINGS: There is normal hyoid excursion and epiglottic deflection. Multiple episodes of deep penetr ation without definite aspiration. IMPRESSION: 1. No aspiration identified. 2. Please see the speech pathologist report for detailed findings and recommendations. ACT 112: Negative or not required by law. Electronically signed by: Reagan Villanueva M.D. 07/12/2019 2:25 PM
[2019-07-12] MEDS: CALCIUM 600MG + VIT D 400 IU TAB PO SCH (16:17)
[2019-07-12] MEDS: ATORVASTATIN 40 MG TAB PO SCH (21:15)
[2019-07-12] MEDS: MONTELUKAST SODIUM 10 MG TABLET PO SCH (21:16)
[2019-07-12] MEDS: CHOLECALCIFEROL 1,000 UNITS 25 MCG TAB PO SCH (21:16)
[2019-07-12] MEDS: lisinopriL 20 MG TAB PO SCH (21:17)
[2019-07-12] MEDS: dilTIAZem HCL 240 MG CAPCR PO SCH (21:25)
[2019-07-13] MEDS: INSULIN ASPART 100 UNITS/ML 3 ML PEN SC SCH ×6 (00:01→20:51)
[2019-07-13] MEDS: PIPERACILLIN/TAZOBACTAM 3.375 GM in DEXTROSE 5% 100 ML IV SCH ×3 (00:01→16:41)
[2019-07-13] MEDS: DOXYCYCLINE HYCLATE 100 MG in DEXTROSE 5% 100 ML IV SCH ×2 (03:41→16:40)
[2019-07-13] MEDS: LEVOTHYROXINE SODIUM 25 MCG TABLET PO SCH (05:20)
[2019-07-13 05:34] LABS: Basophils # (auto) 0.01 K/uL (0-0.2); Basophils % (auto) 0.1 %; Hematocrit (blood only) 37.6 % (42-52); Immature Granulocytes # (auto) 0.02 K/uL (0.00-0.02); Immature Granulocytes % (auto) 0.2 %; Lymphocytes # (auto) 0.61 K/uL (1.2-3.4); Lymphocytes % (auto) 5.1 %; Mean Corpuscular Hemoglobin 25.1 pg (25-34); Mean Corpuscular Hgb Conc 31.9 g/dL (32-36); Mean Corpuscular Volume 78.7 fL (80-100); Mean Platelet Volume 9.6 fL (7.4-10.4); Monocytes # (auto) 0.25 K/uL (0.11-0.59); Monocytes % (auto) 2.1 %; Neutrophils # (auto) 11.04 K/uL (1.4-6.5); Neutrophils % (auto) 92.5 %; Platelet Count 232 K/uL (130-400); RDW Coefficient of Variation 17.9 % (11.5-14.5); RDW Standard Deviation 51.3 fL (36.4-46.3); Red Blood Count 4.78 M/uL (4.7-6.1); White Blood Count 11.93 K/uL (4.8-10.8)
[2019-07-13 06:10] LABS: Albumin Globulin Ratio 0.7 (0.9-2); Albumin Level 3.1 gm/dl (3.4-5.0); BUN Creatinine Ratio 19.8 (10-20); Bilirubin,Total 0.3 mg/dl (0.2-1); Calcium 8.7 mg/dl (8.5-10.1); Creatinine Clr Calc Pharmacy 56.7 ml/min; Est GFR (African American) 80.8; Est GFR (Non-African American) 69.7; Globulin 4.4 gm/dl (2.5-4.0); Potassium 5.1 mmol/L (3.5-5.1); Total Protein 7.5 gm/dl (6.4-8.2)
[2019-07-13] MEDS: ALBUT/IPRATROP 3MG/0.5MG NEB 3 ML VIAL NEB SCH ×4 (07:15→19:24)
[2019-07-13] MEDS: FLUTICASONE FUROATE 100MCG 14 PUFFS/INHALER INH SCH (08:19)
[2019-07-13] MEDS: INSULIN HUMAN NPH SC SCH ×2 (08:19→20:52)
[2019-07-13] MEDS: METOPROLOL TARTRATE 100 MG TAB PO SCH ×2 (08:20→22:21)
[2019-07-13] MEDS: UMECLIDINIUM/VILANTEROL 62.5/25MCG 7 PUFFS/INHALER INH SCH (08:20)
[2019-07-13] MEDS: APIXABAN 5 MG TABLET PO SCH ×2 (08:21→20:48)
[2019-07-13] MEDS: CYANOCOBALAMIN 500 MCG TABLET (VITAMIN B-12) PO SCH (08:21)
[2019-07-13] MEDS: methylPREDNISolone 40 MG in SYRINGE 0 ML IV SCH ×2 (08:21→20:49)
[2019-07-13] MEDS: levETIRAcetam 500 MG TAB PO SCH ×2 (08:21→20:48)
[2019-07-13] MEDS: ASPIRIN 81 MG ECTAB PO SCH ×2 (08:22→20:47)
[2019-07-13] MEDS: NICOTINE 14 MG/24 HR PATCH TD SCH ×2 (08:22→08:28)
[2019-07-13] MEDS: SERTRALINE HCL 100 MG TABLET PO SCH (08:22)
--- NOTE | 2019-07-13 09:59 | Cardiology Progress Note ---
Date of Service July 13, 2019 Assessment & Plan (1) Paroxysmal atrial fibrillation: He has a history of atrial fibrillation, since we do not follow him as an outpatient and I do not know what outpatient monitoring he has had, I only know what has happened here in the hospital. When he was in March 2019 he had paroxysmal atrial fibrillation with a rapid heart rate and he was started on the medications to control the heart rate, these were held due to asymptomatic bradycardia on admission. He is having the same issue of paroxysmal atrial fibrillation here. He will need rate control, I am not convinced that he had significant bradycardia, I do not see documentation of it, and I think we should continue his medications. His current dose is adequate for control of intermittent atrial fibrillation although fewer in atrial fibrillation all the time it may not be but then we would not need to worry about sinus bradycardia either. If he does need higher doses of medications and he has significant bradycardia he would probably need a pacemaker, he does need heart rate control especially since he has coronary artery disease. I believe his current medications are a good compromise. I have not seen atrial flutter which is what the ablation was for, so that appears to have been successful in the past. Antiarrhythmic therapy is another possibility but I would like to try rate control first. (2) Anticoagulant long-term use: He will need anticoagulation for his atrial fibrillation, I believe he has been tolerating Eliquis well and I would continue that. (3) Arteriosclerotic coronary artery disease: He has a history of coronary artery disease, I do not have details but I do not believe that is active at this time. His initial troponin was negative. I am little concerned however with his rapid heart rates but on his current regimen I think it is acceptable for brief episodes unless he would develop anginal symptoms. Admission and Anticipated Discharge Date Admission Date: July 11, 2019 Subjective He feels well today, he has no awareness of his atrial arrhythmia Physical Exam Physical Exam: Constitutional: Alert, cooperative and in no distress. He is oriented x3. HEENT: Unremarkable Neck: No jugular venous distention, carotid pulses are normal and equal bilaterally without bruits. Pulmonary: Clear to auscultation bilaterally. Cardiac: Regular rhythm with a soft crescendo decrescendo murmur at the base, no gallop or rub. Abdomen: Soft, nontender with normal bowel sounds. Extremities: No edema. Distal pulses intact. Neurologic: No focal findings. Gait is steady. Skin: No rash, ecchymoses or petechiae. Results & Data ([facility]) Vital Signs (Past 12 Hours) Vital Signs Temp Pulse Pulse Resp BP Pulse Ox 07/13/19 07:35 58 L 07/13/19 07:22 36.4 C L 50 L 20 145/77 H 98 07/13/19 07:15 56 L 16 96 07/13/19 05:39 50 L 07/13/19 02:56 36.4 C L 60 19 140/77 96 07/12/19 23:04 36.6 C 85 18 126/81 95 07/12/19 22:51 123 H 133/98 07/12/19 22:20 118 H Laboratory Results Cardiac Enzymes 07/13/19 Range/Units 05:13 AST 14 L (15-37) U/L CBC 07/13/19 Range/Units 05:13 WBC 11.93 H (4.8-10.8) K/uL RBC 4.78 (4.7-6.1) M/uL Hgb 12.0 L (14.0-18.0) g/dL Hct 37.6 L (42-52) % Plt Count 232 (130-400) K/uL Neut # (Auto) 11.04 H (1.4-6.5) K/uL Lymph # (Auto) 0.61 L (1.2-3.4) K/uL [place] # (Auto) 0.25 (0.11-0.59) K/uL Eos # (Auto) 0.00 (0-0.5) K/uL Baso # (Auto) 0.01 (0-0.2) K/uL Comprehensive Metabolic Panel 07/13/19 Range/Units 05:13 Sodium 136 (136-145) mmol/L Potassium 5.1 D (3.5-5.1) mmol/L Chloride 105 (98-107) mmol/L Carbon Dioxide 26 (21-32) mmol/L BUN 20 H (7-18) mg/dl Creatinine 1.03 (0.6-1.4) mg/dl Glucose 184 H (70-99) mg/dl Calcium 8.7 (8.5-10.1) mg/dl AST 14 L (15-37) U/L ALT 22 (12-78) U/L Alkaline Phosphatase 74 (45-117) U/L Total Protein 7.5 (6.4-8.2) gm/dl Albumin 3.1 L (3.4-5.0) gm/dl Intake and Output 07/12/19 07/13/19 07/13/19 22:59 06:59 14:59 Intake Total 800 / 1815 225 / 1815 Output Total 1250 / 1250 Balance 800 / 565 -1025 / 565 Intake: IV 225 / 565 225 / 565 Vibramycin 100 mg In D5 100 ml 110 / 220 110 / 220 @ 50 mls/hr IV Q12H PATO Rx#: [id number] Zosyn 3.375 gm In D5 100 ml @ 115 / 345 115 / 345 28.75 mls/hr IV Q8H PATO Rx#: [id number] Oral 575 / 1250 Output: Urine 1250 / 1250 Other: # Unmeasured Voids 4 Weight 66.8 kg Diagnostic Findings Telemetry: Brief episodes of atrial fibrillation, over the past 24 hours a 1 hour episode and a 2-hour episode. Heart rates in the low 100s during atrial fibrillation. PG Care Time/CCT Total # of Minutes Spent Total Time Spent with Patient: Total time spent is greater than 50% in coordination of care (as documented) at patient's floor/unit and/or counseling patient: Coding Level of Care Code 94295 Subseq Hosp Care Lvl 2 Diagnoses Paroxysmal atrial fibrillation I48.0 Anticoagulant long-term use Z79.01 Arteriosclerotic coronary artery disease I25.10
--- NOTE | 2019-07-13 10:51 | Hospitalist Progress Note ---
Date of Service July 13, 2019 Assessment & Plan (1) Pneumonia: No fever, chills, sweats, rigors. No leukocytosis Procalcitonin is negative Imaging revealed some opacification in the right upper lobe which is new since May 2019 Imaging the right lower lobe consistent with area where patient had wedge resection March 2019 Repeat chest x-ray this morning Day #3 of doxycycline and Zosyn. Stop abx after a total of 5 days. Will most likely discharge home on Augmentin to complete course. Speech-language pathology consulted for consideration of aspiration Video swallow revealed no aspiration. Continue regular diet. No straws and use small sips only. Supervised meals. Alternate solids and liquids. Eat upright and remain upright for at least 30 minutes after meals. Oxygenating well on room air (2) Atelectasis: This appears chronic on previous imaging Incentive spirometry as tolerated Repeat chest x-ray pending (3) COPD, moderate: Mild to moderate obstructive pattern on PFTs No wheezes on exam Oxygenating well on room air Continue home meds on discharge (4) Paroxysmal atrial fibrillation: Anticoagulated with apixaban Sinus tach yesterday. Currently rate controlled in the 60s Continue titration of Lopressor and Diltiazem. Cardiology consulted -appreciate Dr. Cedillo's input (5) Acute and chronic respiratory failure: COPD with history of tobacco abuse Nocturnal supplemental oxygen 2 L/min via nasal cannula Anticipate possible discharge tomorrow. Cardiac meds being titrated. Continue to monitor in PCU Admission and Anticipated Discharge Date Admission Date: July 11, 2019 Subjective Attending: Dr. Neri Beckman Patient seen and examined at bedside. He is in bedside chair. His cough is resolved. He has no fever or chills. He denies any shortness of breath. Currently 98% SaO2 on room air. Afebrile. No acute complaints. Review of Systems Review of Systems: All systems reviewed & are unremarkable except as noted in HPI & below Physical Exam Physical Exam: GENERAL : No acute distress EYES: No icterus, gaze conjugate NOSE: No evidence of epistaxis MOUTH: No lesions or candidiasis NECK: Supple LUNGS: Bibasilar crackles. HEART: Regular, rate controlled ABDOMEN: Soft, NT, ND, BS Present EXTREMITIES: No LE edema, pedal pulses intact and equal bilaterally NEURO: Awake and alert. Some confusion but easily reoriented. Results & Data ([facility]) Vital Signs (Past 12 Hours) Vital Signs Temp Pulse Pulse Resp BP Pulse Ox 07/13/19 07:35 58 L 07/13/19 07:22 36.4 C L 50 L 20 145/77 H 98 07/13/19 07:15 56 L 16 96 07/13/19 05:39 50 L 07/13/19 02:56 36.4 C L 60 19 140/77 96 07/12/19 23:04 36.6 C 85 18 126/81 95 07/12/19 22:51 123 H 133/98 Laboratory Results 07/13/19 05:13 07/13/19 05:13 Diagnostic Findings PA/lateral chest x-ray is pending PG Care Time/CCT Total # of Minutes Spent Total Time Spent with Patient: Total time spent is greater than 50% in coordination of care (as documented) at patient's floor/unit and/or counseling patient:25 minutes Coding Level of Care Code 99618 Subseq Hosp Care Lvl 2 Diagnoses Pneumonia J18.9 Laterality: right Lung location: lower lobe of lung Pneumonia type: due to unspecified organism Atelectasis J98.11 COPD, moderate J44.9 Paroxysmal atrial fibrillation I48.0 Acute and chronic respiratory failure J96.20 (1) Pneumonia Laterality: right Lung location: lower lobe of lung Pneumonia type: due to unspecified organism Qualified Code(s): J18.9 - Pneumonia, unspecified organism
--- NOTE | 2019-07-13 11:29 | XRay Report ---
XR chest 2V PA/lateral CLINICAL HISTORY: 78 years-old Male presenting with Pneumonia. TECHNIQUE: PA and lateral views of the chest were obtained. COMPARISON: 07/11/2019. FINDINGS: Atherosclerosis of the aortic arch. Cardiac silhouette mildly enlarged. Focal opacities in the right midlung not as well appreciated on the current radiograph. Minimal bibasilar opacities. Diffusely coa rsened lung markings. No large effusion or pneumothorax. Degenerative changes of the thoracic spine. Upper abdomen normal. IMPRESSION: 1. Slight interval decrease conspicuity of the right midlung infiltrates corresponding to the intelligence officer basic ior segment right upper lobe consolidation. 2. Minimal bibasilar changes as on prior. 3. Mild cardiomegaly. ACT 112: Negative or not required by law. Electronically signed by: Sekou Milan M.D. 07/13/2019 11:28 AM
[2019-07-13] MEDS: CALCIUM 600MG + VIT D 400 IU TAB PO SCH (16:40)
[2019-07-13] MEDS: ATORVASTATIN 40 MG TAB PO SCH (20:47)
[2019-07-13] MEDS: MONTELUKAST SODIUM 10 MG TABLET PO SCH (20:48)
[2019-07-13] MEDS: CHOLECALCIFEROL 1,000 UNITS 25 MCG TAB PO SCH (20:49)
[2019-07-13] MEDS: lisinopriL 20 MG TAB PO SCH (20:50)
[2019-07-13] MEDS: dilTIAZem HCL 240 MG CAPCR PO SCH (22:20)
[2019-07-14] MEDS: INSULIN ASPART 100 UNITS/ML 3 ML PEN SC SCH ×6 (00:08→19:54)
[2019-07-14] MEDS: PIPERACILLIN/TAZOBACTAM 3.375 GM in DEXTROSE 5% 100 ML IV SCH ×3 (00:09→16:25)
[2019-07-14] MEDS: DOXYCYCLINE HYCLATE 100 MG in DEXTROSE 5% 100 ML IV SCH ×2 (03:42→16:25)
[2019-07-14] MEDS: LEVOTHYROXINE SODIUM 25 MCG TABLET PO SCH (05:26)
[2019-07-14 05:47] LABS: Basophils # (auto) 0.01 K/uL (0-0.2); Basophils % (auto) 0.1 %; Hematocrit (blood only) 35.9 % (42-52); Hemoglobin 11.3 g/dL (14.0-18.0); Immature Granulocytes # (auto) 0.02 K/uL (0.00-0.02); Immature Granulocytes % (auto) 0.1 %; Lymphocytes # (auto) 0.77 K/uL (1.2-3.4); Lymphocytes % (auto) 5.6 %; Mean Corpuscular Hemoglobin 25.5 pg (25-34); Mean Corpuscular Hgb Conc 31.5 g/dL (32-36); Mean Corpuscular Volume 80.9 fL (80-100); Mean Platelet Volume 9.6 fL (7.4-10.4); Monocytes # (auto) 0.14 K/uL (0.11-0.59); Neutrophils # (auto) 12.75 K/uL (1.4-6.5); Neutrophils % (auto) 93.2 %; Platelet Count 267 K/uL (130-400); RDW Standard Deviation 53.3 fL (36.4-46.3); Red Blood Count 4.44 M/uL (4.7-6.1); White Blood Count 13.69 K/uL (4.8-10.8)
[2019-07-14 06:15] LABS: BUN Creatinine Ratio 26.7 (10-20); Calcium 8.9 mg/dl (8.5-10.1); Creatinine Clr Calc Pharmacy 60.2 ml/min; Est GFR (African American) 85.8; Est GFR (Non-African American) 74.1; Potassium 4.4 mmol/L (3.5-5.1)
[2019-07-14 06:18] LABS: Albumin Globulin Ratio 0.7 (0.9-2); Bilirubin,Total 0.2 mg/dl (0.2-1); Globulin 4.3 gm/dl (2.5-4.0); Total Protein 7.3 gm/dl (6.4-8.2)
[2019-07-14] MEDS: ALBUT/IPRATROP 3MG/0.5MG NEB 3 ML VIAL NEB SCH ×4 (07:13→18:54)
[2019-07-14] MEDS: methylPREDNISolone 40 MG in SYRINGE 0 ML IV SCH ×2 (08:34→19:55)
[2019-07-14] MEDS: FLUTICASONE FUROATE 100MCG 14 PUFFS/INHALER INH SCH (08:34)
[2019-07-14] MEDS: UMECLIDINIUM/VILANTEROL 62.5/25MCG 7 PUFFS/INHALER INH SCH (08:34)
[2019-07-14] MEDS: INSULIN HUMAN NPH SC SCH ×2 (08:36→19:55)
[2019-07-14] MEDS: METOPROLOL TARTRATE 100 MG TAB PO SCH ×2 (08:37→19:54)
[2019-07-14] MEDS: levETIRAcetam 500 MG TAB PO SCH ×2 (08:37→19:54)
[2019-07-14] MEDS: APIXABAN 5 MG TABLET PO SCH ×2 (08:37→19:54)
[2019-07-14] MEDS: ASPIRIN 81 MG ECTAB PO SCH ×2 (08:38→19:54)
[2019-07-14] MEDS: CYANOCOBALAMIN 500 MCG TABLET (VITAMIN B-12) PO SCH (08:38)
[2019-07-14] MEDS: SERTRALINE HCL 100 MG TABLET PO SCH (08:38)
--- NOTE | 2019-07-14 11:29 | Cardiology Progress Note ---
Date of Service July 14, 2019 Assessment & Plan (1) Paroxysmal atrial fibrillation: He has a history of atrial fibrillation, since we do not follow him as an outpatient and I do not know what outpatient monitoring he has had, I only know what has happened here in the hospital. When he was in March 2019 he had paroxysmal atrial fibrillation with a rapid heart rate and he was started on the medications to control the heart rate, these were held due to asymptomatic bradycardia on this admission. He is having the same issue of paroxysmal atrial fibrillation this admission. He will need rate control, I am not convinced that he had symptomatic bradycardia, I do not see documentation of it, and I think we should continue his medications. His current dose is adequate for control of intermittent atrial fibrillation although if we find that he is in atrial fibrillation all the time it may not be but then we would not need to worry about sinus bradycardia either. If he does need higher doses of medications and he has significant bradycardia he would probably need a pacemaker, he does need reasonable heart rate control especially since he has coronary artery disease. I believe his current medications are a good compromise between tachycardia and bradycardia. I have not seen atrial flutter which is what the ablation was for, so that appears to have been successful in the past. Antiarrhythmic therapy is another possibility but I would like to continue rate control for now. (2) Anticoagulant long-term use: He will need anticoagulation for his atrial fibrillation, I believe he has been tolerating Eliquis well and I would continue that. (3) Arteriosclerotic coronary artery disease: He has a history of coronary artery disease, I do not have details but I do not believe that is active at this time. His initial troponin was negative. I am little concerned however with his rapid heart rates but on his current regimen I think it is acceptable for brief episodes unless he would develop anginal symptoms. Admission and Anticipated Discharge Date Admission Date: July 11, 2019 Subjective He is feeling well today, he continues to be asymptomatic with his bradycardia and his atrial fibrillation. Anxious to go home. Physical Exam Physical Exam: Constitutional: Alert, cooperative and in no distress. He is oriented x3. HEENT: Unremarkable Neck: No jugular venous distention, carotid pulses are normal and equal bilaterally without bruits. Pulmonary: Clear to auscultation bilaterally. Cardiac: Regular rhythm with a soft crescendo decrescendo murmur at the base, no gallop or rub. Abdomen: Soft, nontender with normal bowel sounds. Extremities: No edema. Distal pulses intact. Neurologic: No focal findings. Gait is steady. Skin: No rash, ecchymoses or petechiae. Results & Data ([facility]) Vital Signs (Past 12 Hours) Vital Signs Temp Pulse Pulse Pulse Resp BP Pulse Ox 07/14/19 11:21 36.4 C L 48 L 19 135/72 96 07/14/19 11:03 50 L 18 98 07/14/19 07:57 47 L 07/14/19 07:15 56 L 18 96 07/14/19 06:55 36.5 C 49 L 19 133/71 95 07/14/19 06:35 45 L 07/14/19 03:36 36.4 C L 47 L 15 127/72 95 07/14/19 01:25 54 L 07/14/19 00:05 36.9 C 50 L 17 142/80 H 95 Laboratory Results Cardiac Enzymes 07/14/19 Range/Units 05:14 AST 12 L (15-37) U/L CBC 07/14/19 Range/Units 05:14 WBC 13.69 H (4.8-10.8) K/uL RBC 4.44 L (4.7-6.1) M/uL Hgb 11.3 L (14.0-18.0) g/dL Hct 35.9 L (42-52) % Plt Count 267 (130-400) K/uL Neut # (Auto) 12.75 H (1.4-6.5) K/uL Lymph # (Auto) 0.77 L (1.2-3.4) K/uL [place] # (Auto) 0.14 (0.11-0.59) K/uL Eos # (Auto) 0.00 (0-0.5) K/uL Baso # (Auto) 0.01 (0-0.2) K/uL Comprehensive Metabolic Panel 07/14/19 Range/Units 05:14 Sodium 138 (136-145) mmol/L Potassium 4.4 (3.5-5.1) mmol/L Chloride 105 (98-107) mmol/L Carbon Dioxide 26 (21-32) mmol/L BUN 26 H (7-18) mg/dl Creatinine 0.98 (0.6-1.4) mg/dl Glucose 181 H (70-99) mg/dl Calcium 8.9 (8.5-10.1) mg/dl AST 12 L (15-37) U/L ALT 22 (12-78) U/L Alkaline Phosphatase 68 (45-117) U/L Total Protein 7.3 (6.4-8.2) gm/dl Albumin 3.0 L (3.4-5.0) gm/dl Intake and Output 07/13/19 07/14/19 07/14/19 21:59 06:59 14:59 Intake Total Output Total Balance Intake: IV Vibramycin 100 mg In D5 100 ml @ 50 mls/hr IV Q12H PATO Rx#: [id number] Zosyn 3.375 gm In D5 100 ml @ 28.75 mls/hr IV Q8H PATO Rx#: [id number] Oral Output: Urine Other: # Unmeasured Voids Weight Diagnostic Findings Telemetry: Tachybradycardia with predominantly sinus rhythm and sinus bradycardia, periods of atrial fibrillation with heart rate about 110 bpm, a total of about 2 hours since yesterday. PG Care Time/CCT Total # of Minutes Spent Total Time Spent with Patient: Total time spent is greater than 50% in coordination of care (as documented) at patient's floor/unit and/or counseling patient: Coding Level of Care Code 18276 Subseq Hosp Care Lvl 2 Diagnoses Paroxysmal atrial fibrillation I48.0 Anticoagulant long-term use Z79.01 Arteriosclerotic coronary artery disease I25.10
--- NOTE | 2019-07-14 15:01 | Hospitalist Progress Note ---
Date of Service July 14, 2019 Assessment & Plan (1) Pneumonia: No fever, chills, sweats, rigors. No leukocytosis Procalcitonin is negative Imaging revealed some opacification in the right upper lobe which is new since May 2019 Imaging the right lower lobe consistent with area where patient had wedge resection March 2019 Repeat chest x-ray this morning Day #4 of doxycycline and Zosyn. Stop abx after a total of 5 days. Will most likely discharge home tomorrow. Speech-language pathology consulted for consideration of aspiration Video swallow revealed no aspiration. Continue regular diet. No straws and use small sips only. Supervised meals. Alternate solids and liquids. Eat upright and remain upright for at least 30 minutes after meals. Oxygenating well on room air (2) Atelectasis: This appears chronic on previous imaging Continue incentive spirometry as tolerated Repeat chest x-ray pending (3) COPD, moderate: Mild to moderate obstructive pattern on PFTs No wheezes on exam Oxygenating well on room air Continue home meds on discharge (4) Paroxysmal atrial fibrillation: Anticoagulated with apixaban Sinus tach yesterday. Currently with some bradycardia. Continue titration of Lopressor 100 mg p.o. twice daily and Diltiazem 240 mg p.o. daily. Cardiology consulted -appreciate Dr. Cedillo's input (5) Acute and chronic respiratory failure: COPD with history of tobacco abuse Nocturnal supplemental oxygen 2 L/min via nasal cannula Anticipate possible discharge tomorrow. Cardiac meds being titrated. Continue to monitor in PCU Admission and Anticipated Discharge Date Admission Date: July 11, 2019 Supervising Physician Co-Signing Physician Notes I supervised Eze Gentile PA-C on this patient's care. I examined the patient today independently of him. I discussed the plan of care with him with the plan being as written in his note except for any following changes/exceptions: None. Feeling well. Will monitor HR today. Cardiology considering pacemaker if HR remains low; however, doesn't seem likely. Subjective Attending: Dr. Neri Beckman Is a 78-year-old male admitted 07/11/2019 with symptomatic paroxysmal atrial fibrillation with tachycardia with alternating runs of symptomatic bradycardia. Chief complaint was chronic cough. His cough is resolved. He has no productive sputum. Has received 4 days of Zosyn and doxycycline. He has no diarrhea. He denies shortness of breath. He continues on nocturnal supplemental oxygen but is doing well otherwise on room air. He is unaware of tachyarrhythmias but did have some tiredness yesterday when he was noted to be bradycardic in the 40s. He denies any fever chills. He is eating well. He is ambulating well. He has no other acute complaints. Review of Systems Review of Systems: All systems reviewed & are unremarkable except as noted in HPI & below Physical Exam Physical Exam: GENERAL : No acute distress EYES: No icterus, gaze conjugate NOSE: No evidence of epistaxis MOUTH: No lesions or candidiasis NECK: Supple LUNGS: CTA B/L, no wheezes, rales or rhonchi HEART: Regular, bradycardic in the 50s ABDOMEN: Soft, NT, ND, BS Present EXTREMITIES: No LE edema, pedal pulses intact NEURO: A&OX3 Results & Data ([facility]) Vital Signs (Past 12 Hours) Vital Signs Temp Pulse Pulse Pulse Resp BP Pulse Ox 07/14/19 11:21 36.4 C L 48 L 19 135/72 96 07/14/19 11:03 50 L 18 98 07/14/19 07:57 47 L 07/14/19 07:15 56 L 18 96 07/14/19 06:55 36.5 C 49 L 19 133/71 95 07/14/19 06:35 45 L 07/14/19 03:36 36.4 C L 47 L 15 127/72 95 Laboratory Results 07/14/19 05:14 07/14/19 05:14 Diagnostic Findings No further diagnostic studies PG Care Time/CCT Total # of Minutes Spent Total Time Spent with Patient: Total time spent is greater than 50% in coordination of care (as documented) at patient's floor/unit and/or counseling patient: Coding Level of Care Code 69036 Subseq Hosp Care Lvl 2 Diagnoses Pneumonia J18.9 Laterality: right Lung location: lower lobe of lung Pneumonia type: due to unspecified organism Atelectasis J98.11 COPD, moderate J44.9 Paroxysmal atrial fibrillation I48.0 Acute and chronic respiratory failure J96.20 (1) Pneumonia Laterality: right Lung location: lower lobe of lung Pneumonia type: due to unspecified organism Qualified Code(s): J18.9 - Pneumonia, unspecified organism
[2019-07-14] MEDS: CALCIUM 600MG + VIT D 400 IU TAB PO SCH (16:26)
[2019-07-14] MEDS: CHOLECALCIFEROL 1,000 UNITS 25 MCG TAB PO SCH (19:53)
[2019-07-14] MEDS: dilTIAZem HCL 240 MG CAPCR PO SCH (19:53)
[2019-07-14] MEDS: ATORVASTATIN 40 MG TAB PO SCH (19:54)
[2019-07-14] MEDS: lisinopriL 20 MG TAB PO SCH (19:54)
[2019-07-14] MEDS: MONTELUKAST SODIUM 10 MG TABLET PO SCH (19:54)
[2019-07-15] MEDS: PIPERACILLIN/TAZOBACTAM 3.375 GM in DEXTROSE 5% 100 ML IV SCH ×2 (00:05→07:50)
[2019-07-15] MEDS: INSULIN ASPART 100 UNITS/ML 3 ML PEN SC SCH ×4 (00:18→11:55)
[2019-07-15] MEDS: DOXYCYCLINE HYCLATE 100 MG in DEXTROSE 5% 100 ML IV SCH (04:03)
[2019-07-15 05:55] LABS: Hematocrit (blood only) 39.5 % (42-52); Hemoglobin 12.4 g/dL (14.0-18.0); Immature Granulocytes # (auto) 0.04 K/uL (0.00-0.02); Immature Granulocytes % (auto) 0.3 %; Lymphocytes # (auto) 0.83 K/uL (1.2-3.4); Lymphocytes % (auto) 6.8 %; Mean Corpuscular Hemoglobin 25.4 pg (25-34); Mean Corpuscular Hgb Conc 31.4 g/dL (32-36); Mean Corpuscular Volume 80.8 fL (80-100); Mean Platelet Volume 9.8 fL (7.4-10.4); Monocytes # (auto) 0.27 K/uL (0.11-0.59); Monocytes % (auto) 2.2 %; Neutrophils # (auto) 11.15 K/uL (1.4-6.5); Neutrophils % (auto) 90.7 %; Platelet Count 303 K/uL (130-400); RDW Coefficient of Variation 18.2 % (11.5-14.5); RDW Standard Deviation 53.1 fL (36.4-46.3); Red Blood Count 4.89 M/uL (4.7-6.1); White Blood Count 12.29 K/uL (4.8-10.8)
[2019-07-15] MEDS: LEVOTHYROXINE SODIUM 25 MCG TABLET PO SCH (05:55)
[2019-07-15 06:32] LABS: Albumin Level 3.1 gm/dl (3.4-5.0); Creatinine Clr Calc Pharmacy 57.5 ml/min; Est GFR (African American) 81.8; Est GFR (Non-African American) 70.6; Potassium 4.6 mmol/L (3.5-5.1)
[2019-07-15 06:34] LABS: Albumin Globulin Ratio 0.7 (0.9-2); Bilirubin,Total 0.2 mg/dl (0.2-1); Globulin 4.4 gm/dl (2.5-4.0); Total Protein 7.5 gm/dl (6.4-8.2)
[2019-07-15] MEDS: ALBUT/IPRATROP 3MG/0.5MG NEB 3 ML VIAL NEB SCH ×3 (07:04→15:02)
[2019-07-15] MEDS: INSULIN HUMAN NPH SC SCH (07:59)
[2019-07-15] MEDS: ASPIRIN 81 MG ECTAB PO SCH (08:00)
[2019-07-15] MEDS: CYANOCOBALAMIN 500 MCG TABLET (VITAMIN B-12) PO SCH (08:03)
[2019-07-15] MEDS: SERTRALINE HCL 100 MG TABLET PO SCH (08:03)
[2019-07-15] MEDS: APIXABAN 5 MG TABLET PO SCH (08:03)
[2019-07-15] MEDS: levETIRAcetam 500 MG TAB PO SCH (08:03)
[2019-07-15] MEDS: METOPROLOL TARTRATE 100 MG TAB PO SCH (08:03)
[2019-07-15] MEDS: UMECLIDINIUM/VILANTEROL 62.5/25MCG 7 PUFFS/INHALER INH SCH (08:04)
[2019-07-15] MEDS: methylPREDNISolone 40 MG in SYRINGE 0 ML IV SCH (08:04)
[2019-07-15] MEDS: FLUTICASONE FUROATE 100MCG 14 PUFFS/INHALER INH SCH (08:04)
--- NOTE | 2019-07-15 12:39 | Discharge Summary ---
Date of Service July 15, 2019 Admission HPI Per Admitting Provider The patient is a 78 year old male with PMHx of HTN, Hypothyroidism, dyslipidemia, moderate cognitive impairment, paroxysmal A fibs, DM ty 2, who presents to the Emergency Room with complaints of constant weakness starting last night. The patient's states the patient was not acting right last night. She states the patient was cold last night and could not get out of his chair. She states she called the home nurse and the home nurse told her to come to the ED. The patient denies having headaches, nausea, vomiting, fevers, SOB, and increased cough, syncope or near syncope. The patient denies taking new medications for A-Fib. The states the patient was admitted recently and had a nodule taken off his right lung by Dr. Lynn.The LN was negative for metastatic CA.CTAchest:IMPRESSION:No evidence of pulmonary embolus.Extensive dependent consolidation in the posterior segment of the right upper lobe concerning for aspiration/aspiration pneumonitis or pneumonia.Dependent peribronchovascular and tree-in-bud opacities in the lower lobes also concerning for aspiration.Extensive secretions or aspirated material in the trachea.Underlying emphysema.Mediastinal and bilateral hilar lymphadenopathy is likely reactive. Attention on follow-up.Mild scarring megaly with severe coronary artery calcification.Labs are reviewed: Na 133, K, 4.1, Bun 12, Cr 0.97, GFR 75.9, Glu 132, Lactate 1.9, Mg 1.7, replanished, Albumin 3.2, TSH 4.120, Digoxin 0.2 L, WBC 9.14, HgB 12.3, Hct 38, Plt 201.Urine neg.EKG :Atrial flutter with variable A-V block Abnormal ECG,When compared with ECG of 11-JUL-2019 09:29,Atrial flutter has replaced Sinus rhythm,QT has lengthened. Decision was made to admit pt to PCU on tele for A-Flutter/Elijah and possible PNA. Admission Exam Per Admitting Provider Constitutional: WD/WN, vitals as above well developed and + ill appearing Eyes: PERRL, conjunctivae normal, anicteric sclerae ENMT: Ears: + hearing impairment Neck: trachea midline, no thyromegaly Respiratory: + respiratory distress, + labored breathing and + uses accessory muscles Auscultation: + crackles and + wheezes Cardiovascular: Rate/Rhythm: + irregularly irregular Heart Sounds: normal S1 and normal S2 Palpation: + palpable S3 Vessels: dorsalis pedis pulses present Extremities: + pedal edema Gastrointestinal (Abdomen): normal bowel sounds, soft, nontender, no hepatosplenomegaly Skin: no rashes, warm and dry Neurologic: patellar DTR's 2+ bilat, sensation intact Psychiatric: Insight: + limited insight Principal Diagnosis Bradycardia Pneumonitis Discharge Exam GENERAL : No acute distress EYES: No icterus, gaze conjugate NOSE: No evidence of epistaxis MOUTH: No lesions or candidiasis NECK: Supple LUNGS: CTA B/L, no wheezes, rales or rhonchi HEART: Regular, rate controlled - In the 80s ABDOMEN: Soft, NT, ND, BS Present EXTREMITIES: No LE edema, pedal pulses intact NEURO: A&OX3 Discharge Data Allergies Allergy/AdvReac Type Severity Reaction Status Date / Time pollen extracts Allergy Mild CONGESTION Verified 07/11/19 10:44 Consultations 07/11/19 11:04 ED Decision to Admit Stat 07/11/19 13:22 Consult Cardiology Routine Consult Case Management - Discharge Planning Routine Ordered Studies 07/11/19 10:07 CT angio chest PE protocol Stat 07/12/19 13:30 FL video swallow Routine Hospital Course (1) Pneumonia: No fever, chills, sweats, rigors. No leukocytosis Procalcitonin is negative Imaging revealed some opacification in the right upper lobe which is new since May 2019 Imaging the right lower lobe consistent with area where patient had wedge resection March 2019 Repeat chest x-ray this morning Completed 5 days of doxycycline and Zosyn. No further antibiotics needed Speech-language pathology consulted for consideration of aspiration Video swallow revealed no aspiration. Continue regular diet. No straws and use small sips only. Supervised meals. Alternate solids and liquids. Eat upright and remain upright for at least 30 minutes after meals. Oxygenating well on room air Discharge home today with [facility] (2) Atelectasis: This appears chronic on previous imaging Continue incentive spirometry as tolerated (3) COPD, moderate: Mild to moderate obstructive pattern on PFTs No wheezes on exam Oxygenating well on room air Continue home meds on discharge (4) Paroxysmal atrial fibrillation: Anticoagulated with apixaban Continue Lopressor 100 mg p.o. twice daily and Diltiazem 240 mg p.o. daily. Cardiology consulted -appreciate Dr. Cedillo's input Discussed at length with the patient's daughter this morning - Follow-up with cardiology in [place] on discharge (5) Acute and chronic respiratory failure: COPD with history of tobacco abuse Nocturnal supplemental oxygen 2 L/min via nasal cannula Discharge home with [facility] Discussed at length with the patient's daughter Jessika Total Time Total Time Spent Total Time Spent (In Minutes): 40 Total Time Includes: Examination of the Patient, Discharge Planning, Medication Reconciliation and Communication With Other Providers Discharge Plan Discharge Items Patient Disposition: Home - Home Health Services Reason For Visit: ACUTE RESPIRATORY FAILURE,PNA,BRADYCARDIA Discharge Diagnosis: Bradycardia Pneumonitis Condition on Discharge: Good Activity: Resume your previous activity Lifting: Gradually increase as tolerated Bathing: No limitations Sexual Activity: When tolerated Exercise/Sports: Gradually increase as tolerated Weightbearing: Full weightbearing Non-emergency contact: Primary Care Provider Call non-emergency contact if: you have any medication questions and your symptoms worsen Follow-up/Referrals: Say Cedillo MD [Physician] - 07/24/19 1:30 pm (PX NOTIFIED AT DISCHARGE) Lorna Tucker DO [Primary Care Provider] - 07/22/19 9:20 am (PX NOTIFIED AT DISCHARGE) Diet: Heart Healthy Diet Texture: Easy to Chew Diet Comment: Small bites followed by small sips of water/fluid Addtl Attending Provider Instructions: Call your primary care provider if you have increased confusion or shortness of breath Addtl Computer Forensics Analyst Provider Instructions: You should schedule an appointment with your trip follower (Heart Doctor) within the next two weeks Pending Studies at Discharge: No Stand-Alone Forms: [facility] Medications and DC Order Prescriptions: Continued cyanocobalamin (vitamin B-12) [Vitamin B-12] 1,000 mcg tablet 1,000 mcg PO QAM Qty: 180 RF: 1 Trelegy Ellipta 100-62.5-25 mcg blister with device 1 inh INHALATION QAM Qty: 60 RF: 3 Eliquis 5 mg tablet 5 mg PO BID Qty: 180 RF: 3 metoprolol tartrate 100 mg tablet 100 mg PO BID Qty: 180 RF: 1 levetiracetam [Keppra] 500 mg tablet 1,000 mg PO BID Qty: 28 RF: 1 glimepiride 2 mg tablet 4 mg PO QAM Qty: 180 RF: 1 sertraline 100 mg tablet 100 mg PO QAM Qty: 90 RF: 2 levothyroxine [Synthroid] 25 mcg tablet 25 mcg PO QAM Qty: 90 RF: 1 albuterol sulfate 2.5 mg /3 mL (0.083 %) solution for nebulization 2.5 mg INH .COMPLEX PRN (Reason: shortness of breath or wheezing) Qty: 90 RF: 1 metformin 1,000 mg tablet 1,000 mg PO BID Qty: 180 RF: 3 calcium carbonate-vitamin D3 600 mg(1,500mg) -400 unit tablet 2 tab PO QDD RF: 0 albuterol sulfate [Ventolin HFA] 90 mcg/actuation HFA aerosol inhaler 2 puffs INH Q4H PRN (Reason: Shortness Of Breath) Qty: 18 RF: 3 (DME) Portable Oxygen Misc See Rx Instructions .ROUTE .MEDSUPPLY Qty: 1 RF: 0 fluticasone propionate [Allergy Relief (fluticasone)] 50 mcg/actuation spray,suspension 1 - 2 sprays INTNAS DAILY PRN (Reason: Congestion) RF: 0 Vitamin D3 4,000 unit Capsule 4,000 unit PO HS RF: 0 aspirin [Aspir-81] 81 mg Tablet,Delayed Release (Dr/Ec) 81 mg PO BID RF: 0 atorvastatin [Lipitor] 40 mg tablet 40 mg PO HS RF: 0 diltiazem HCl [Cartia XT] 240 mg capsule,extended release 24hr 240 mg PO HS RF: 0 lisinopril 20 mg tablet 20 mg PO HS RF: 0 montelukast 10 mg tablet 10 mg PO HS RF: 0 Discharge Orders: Discharge Order (Routine); Ordered 07/15/19 Ordered By: Eze Gnetile Admission Data Admit Date/Time: 07/11/19 11:48 Attending Provider: Neri Beckman Admit Provider: Radha Newman Primary Care Provider: Lorna Tucker Other Providers: Say Cedillo ; Neri Beckman Other Interventions: Discharge Summary Assessment (RN) Last Done: 07/15/19 11:26 Coding Level of Care Code D/C Day Management >30 mins Diagnoses Pneumonia J18.9 Laterality: right Lung location: lower lobe of lung Pneumonia type: due to unspecified organism Atelectasis J98.11 COPD, moderate J44.9 Paroxysmal atrial fibrillation I48.0 Acute and chronic respiratory failure J96.20 Time Spent (min) 40 Comment Discharge time included discussion with patient, patient's daughter Jessika, chart review,
--- NOTE | 2019-07-15 14:01 | Cardiology Progress Note ---
Date of Service July 15, 2019 Assessment & Plan (1) Paroxysmal atrial fibrillation: He has a history of atrial fibrillation, since we do not follow him as an outpatient and I do not know what outpatient monitoring he has had, I only know what has happened here in the hospital. When he was in March 2019 he had paroxysmal atrial fibrillation with a rapid heart rate and he was started on the medications to control the heart rate, these were held due to asymptomatic bradycardia on this admission. He is having the same issue of paroxysmal atrial fibrillation this admission. He will need rate control, I am not convinced that he had symptomatic bradycardia, I do not see documentation of it, and I think we should continue his medications. His current dose is adequate for control of intermittent atrial fibrillation although if we find that he is in atrial fibrillation all the time it may not be but then we would not need to worry about sinus bradycardia either. If he does need higher doses of medications and he has significant bradycardia he would probably need a pacemaker, he does need reasonable heart rate control especially since he has coronary artery disease. I believe his current medications are a good compromise between tachycardia and bradycardia. I have not seen atrial flutter which is what the ablation was for, so that appears to have been successful in the past. Antiarrhythmic therapy is another possibility but I would like to continue rate control for now. He has been in atrial fibrillation since last evening, the rate varies somewhat but is not overly fast. He is asymptomatic. He is anticoagulated I think it is safe for him to go home. (2) Anticoagulant long-term use: He will need anticoagulation for his atrial fibrillation, I believe he has been tolerating Eliquis well and I would continue that. (3) Arteriosclerotic coronary artery disease: He has a history of coronary artery disease, I do not have details but I do not believe that is active at this time. His initial troponin was negative. I am little concerned however with his rapid heart rates but on his current regimen I think it is acceptable for brief episodes unless he would develop anginal symptoms. Admission and Anticipated Discharge Date Admission Date: July 11, 2019 Subjective He is feeling very well today and is anxious to go home. Physical Exam Physical Exam: Constitutional: Alert, cooperative and in no distress. He is oriented x3. HEENT: Unremarkable Neck: No jugular venous distention, carotid pulses are normal and equal bilaterally without bruits. Pulmonary: Clear to auscultation bilaterally. Cardiac: Regular rhythm with a soft crescendo decrescendo murmur at the base, no gallop or rub. Abdomen: Soft, nontender with normal bowel sounds. Extremities: No edema. Distal pulses intact. Neurologic: No focal findings. Gait is steady. Skin: No rash, ecchymoses or petechiae. Results & Data ([facility]) Vital Signs (Past 12 Hours) Vital Signs Temp Pulse Pulse Pulse Resp BP BP 07/15/19 11:35 36.3 C L 73 18 145/89 H 07/15/19 11:26 36.9 C 45 L 98 H 18 120/74 138/73 07/15/19 10:47 98 H 18 07/15/19 08:00 36.9 C 104 H 70 18 138/73 07/15/19 07:06 80 16 07/15/19 03:41 36.8 C 69 18 120/74 Pulse Ox 07/15/19 11:35 98 07/15/19 11:26 95 07/15/19 10:47 95 07/15/19 08:00 95 07/15/19 07:06 94 07/15/19 03:41 94 Laboratory Results Cardiac Enzymes 07/15/19 Range/Units 05:13 AST 10 L (15-37) U/L CBC 07/15/19 Range/Units 05:13 WBC 12.29 H (4.8-10.8) K/uL RBC 4.89 (4.7-6.1) M/uL Hgb 12.4 L (14.0-18.0) g/dL Hct 39.5 L (42-52) % Plt Count 303 (130-400) K/uL Neut # (Auto) 11.15 H (1.4-6.5) K/uL Lymph # (Auto) 0.83 L (1.2-3.4) K/uL Wood # (Auto) 0.27 (0.11-0.59) K/uL Eos # (Auto) 0.00 (0-0.5) K/uL Baso # (Auto) 0.00 (0-0.2) K/uL Comprehensive Metabolic Panel 07/15/19 Range/Units 05:13 Sodium 138 (136-145) mmol/L Potassium 4.6 (3.5-5.1) mmol/L Chloride 106 (98-107) mmol/L Carbon Dioxide 27 (21-32) mmol/L BUN 25 H (7-18) mg/dl Creatinine 1.02 (0.6-1.4) mg/dl Glucose 124 H (70-99) mg/dl Calcium 9.0 (8.5-10.1) mg/dl AST 10 L (15-37) U/L ALT 21 (12-78) U/L Alkaline Phosphatase 68 (45-117) U/L Total Protein 7.5 (6.4-8.2) gm/dl Albumin 3.1 L (3.4-5.0) gm/dl Intake and Output 07/14/19 07/15/19 07/15/19 22:59 06:59 14:59 Intake Total 465 / 1525 345 / 1525 115 / 115 Output Total 1250 / 1700 450 / 1700 Balance -785 / -175 -105 / -175 115 / 115 Intake: IV 225 / 565 225 / 565 115 / 115 Vibramycin 100 mg In D5 100 ml 110 / 220 110 / 220 @ 50 mls/hr IV Q12H PATO Rx#: [id number] Zosyn 3.375 gm In D5 100 ml @ 115 / 345 115 / 345 115 / 115 28.75 mls/hr IV Q8H PATO Rx#: [id number] Oral 240 / 960 120 / 960 Output: Urine 1250 / 1700 450 / 1700 Other: # Unmeasured Voids 1 Weight 67 kg 67 kg Patient Weight 07/16/19 06:59 Weight 67 kg Diagnostic Findings Telemetry: He went into atrial fibrillation at around 5:00 last evening, he remains in atrial fibrillation a controlled heart rate. PG Care Time/CCT Total # of Minutes Spent Total Time Spent with Patient: Total time spent is greater than 50% in coordination of care (as documented) at patient's floor/unit and/or counseling patient: Coding Level of Care Code 39593 Subseq Hosp Care Lvl 2 Diagnoses Paroxysmal atrial fibrillation I48.0 Anticoagulant long-term use Z79.01 Arteriosclerotic coronary artery disease I25.10
--- NOTE | 2019-07-15 15:12 | Pharmacy Report ---
Pharmacy Glycemic Short Note 2 - Date of Service July 15, 2019 - Glycemic Short BSG Results (Last 24 hours): 07/14/19 07/14/19 07/14/19 16:08 19:48 23:18 Glucose POC Glucose 135 H 246 H 107 H 07/15/19 07/15/19 07/15/19 05:13 07:31 11:02 Glucose 124 H POC Glucose 140 H 188 H OUTPATIENT ANTIDIABETIC REGIMEN: * glimepiride 4 mg QAM, Metformin 1000 mg BID ASSESSMENT: * Mr. Zurita recieved 73 units of insulin yesterday * 30 of NPH, 43 of novolog, BSGS with improving control, continuing on methylprednisolone 40 mg IV q12 * BSGs have been improving, therefore will continue current Novolog parameters and NPH dosing (weight based stress of 2-3) PLAN FOR INPATIENT GLYCEMIC CONTROL: * Hold outpatient oral diabetes medications * Basal insulin * NPH 12 units if BSG <150 mg/dL * NPH 18 units if BSG 150 mg/dL or greater * Bolus insulin * NovoLog per scale ACHS or Q6hrs while NPO * Goal Range: Low 110 mg/dL - High 140 mg/dL * Correction Factor: 20 mg/dL/unit * Nutritional / Prandial insulin per carb ratio of 1 unit per 6 grams CHO consumed PLAN FOR DISCHARGE: * Patient's A1c 7% on 07/11/19, patient can likely resume home regimen on discharge if plan to discontinue steroids
== END 2019-07-15 16:19 | disposition home health service (06) | DRG 193 ==
LOC: ED 09:01 → SUATTDRO 11:48 → 2E 11:48

== ENCOUNTER 2019-09-18 17:12 | Inpatient (IN) ==
[2019-09-18] MEDS ORDERED: cefTRIAXone SODIUM 1,000 MG/50 ML BAG IV STA (17:44)
--- NOTE | 2019-09-18 17:57 | Emergency Department Note ---
Impression & Plan SOB (shortness of breath), Pneumonia, Pneumomediastinum, Leukocytosis, Hypomagnesemia ED Provider Note NAME: LUCIAN LOPEZ AGE: 79 SEX: M : 1940 ARRIVES VIA: Walk-In INFORMANT: [Patient][nurses, sheila kimball] ED PROVIDER(S): [Eze Benites MD] CHIEF COMPLAINT: Shortness of breath HISTORY OF PRESENT ILLNESS: The patient is a 79-year-old male who presents with shortness of breath. He has had a cough for around a week, maybe a week and a half. No fever. The cough has been productive of some yellow sputum. The patient has a history of COPD and does wear O2 at nighttime only. He uses an albuterol MDI at home. The patient states that 2 days ago, he became short of breath. He did see his doctor's office yesterday and was started on antibiotics for pneumonia. He states that he was told that his chest x-ray showed some lung collapse and he was referred to the ED. He feels the same as he did Monday with regards to the shortness of breath, in other words, nothing has worsened over the last few days. The patient has no known coronavirus exposures. He has been isolating himself at home. He has had pneumonia before. There has been no chest pain. He has not had vomiting or diarrhea, no urinary complaints. The patient feels he just cannot catch a deep breath. REVIEW OF SYSTEMS: See HPI for pertinent positives and negatives. A total of ten systems were reviewed and were otherwise negative. PMHx/PSHx: See Below SOCIAL HISTORY: See Below. PHYSICAL EXAM: GENERAL: Patient is in no acute distress. HEENT: No acute trauma, normocephalic atraumatic, mucous membranes moist, no nasal congestion, no scleral icterus. NECK: No stridor, no adenopathy, no meningismus, trachea is midline. LUNGS: Diminished breath sounds bilaterally but especially on the left. No wheezing, no crackles, no respiratory distress. HEART: 2/6 systolic murmur, regular rate and rhythm. ABDOMEN: Soft, nontender, bowel sounds positive, no hernias, no peritonitis. EXTREMITIES: No cyanosis or edema, full range of motion of all the joints without pain or difficulty, no signs for acute trauma. NEUROLOGIC: Oriented x 3, no acute motor or sensory deficits, no focal weakness. SKIN: No rash, no jaundice, no diaphoresis. DIFFERENTIAL DIAGNOSIS: Reactive airway disease, pneumonia, pneumothorax, pleural effusion, coronavirus, COPD, CHF, infections, cardiac ischemia, pulmonary embolism, musculoskeletal, gastrointestinal, as well as other pathologies. EMERGENCY DEPARTMENT COURSE/PROCEDURES: ECG: Indication was shortness of breath. EKG shows a sinus rhythm with a rate of 62. PACs are present. QTC is 428. There is no ST elevation, no concerning dysrhythmia. Continuous Cardiac Monitoring: An order was placed for continuous cardiac monitoring. The monitor shows a rate of 58 with sinus bradycardia with PACs. MEDICAL DECISION MAKING: There is a moderate leukocytosis which would be consistent with infection. No concerning anemia. There is a normal platelet count. No coagulopathy. No kidney failure. Lactic acid level is elevated which would be consistent with possible infection/sepsis. Magnesium level was low at 1.6. No concerning liver enzyme elevation. EKG showed a sinus rhythm, no acute ischemia. Cardiac enzyme testing x1 is not consistent with acute cardiac injury. Chest CT shows some lung collapse, possible pneumonia, a small area of pneumomediastinum and a pleural effusion. Adenopathy was noted in the chest. Coronavirus testing is pending. Patient received IV saline, 500 cc. He was given IV magnesium, 2 g. He was given IV ceftriaxone as empiric antibiotic coverage. He was maintained on nasal cannula oxygen. The patient is already on oral antibiotics as an outpatient and is not improving. He has significant findings on chest CT. He has been quite short of breath. There is an area of pneumomediastinum. He has a history of underlying lung disease. I do think a hospital stay is warranted. Patient may in fact need a pulmonary consult or even a bronchoscopy. I do think a hospital stay is in his best interest. I did speak to case management, the on-call hospitalist has been counseled. I discussed all my findings with the patient, I spoke to the patient's over the phone at the patient's request. Past Med/Surg History Medical History Abdominal aortic aneurysm (AAA), 30-34 mm diameter (Chronic) Anxiety Arteriosclerotic coronary artery disease (Chronic) Asthma (Chronic) Atrial flutter DX [address] CUELLAR IN [place] Benign prostatic hyperplasia with urinary obstruction (Chronic) CAD (coronary artery disease) Chronic anticoagulation (Chronic) COPD, moderate (Chronic) Depression (Chronic) Dyslipidemia (Chronic) History of acute bronchitis with bronchospasm History of sinusitis Hypertension (Chronic) Hypothyroidism (acquired) (Chronic) Mild cognitive impairment (Chronic) On home oxygen therapy AT NIGHT Osteoarthritis Osteoporosis (Chronic) Paroxysmal atrial fibrillation (Chronic) DX [address] CUELLAR IN [place] Seizure (Acute) 01/29/19 - X2 ON THAT DAY AND WAS ADMITTED AND STARTED ON [place] AND NO SEIZURE SINCE TIA (transient ischemic attack) 2017 X 1 AND NONE SINCE Tremor HANDS Type 2 diabetes mellitus (Chronic) Surgical History H/O 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 Lynn 03/27/19 Hx of cardiac cath 2017 -- HEART CATH WITH STENT 6 [facility] WITH DR CUELLAR LAST SEEN 12/20/2018 Family History Father Heart disease Other COPD (chronic obstructive pulmonary disease) Depression Family history non-contributory Denies family history of Ovarian cancer Prostate cancer Coronary heart disease Myocardial infarction Breast cancer Seizure Lung cancer Colorectal cancer Social History Preferred Language: Kyrgyz Communication Ability: Effective Visual Impairment: No Limitations Hearing Ability: Use of Hearing Aid Liquor Department Manager Required: No Beliefs That Will Affect Care: None marital status: Current Living Situation: Spouse current occupational status: retired 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, 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[employer] Feels Safe at Home: Yes Smoking Status: Former smoker Tobacco Type: cigarettes ; Cigarettes Per Day: 20-40 ; Number of Years Since Quit: 34 ; Second Hand Exposure: No ; Hx Alcohol Use: No Hx Substance Use: No Childhood Exposure to Second-Hand Smoke: Yes Diet Comment: regular caffeine: No Dental Care, Regularly: No Physical Activity Frequency: Does not Exercise Seatbelt Use: always Sunscreen Use: Yes Allergies Allergies Allergy/AdvReac Type Severity Reaction Status Date / Time pollen extracts Allergy Mild CONGESTION Verified 09/16/19 15:33 Home Meds Home Medications Medication Instructions Recorded Confirmed aspirin [Aspir-81] 81 mg PO BID 02/02/18 09/16/19 calcium carbonate 600 mg (1,500 2 tab PO QDD 01/16/19 09/16/19 mg)-vitamin D3 400 unit tablet Vitamin D3 4,000 unit PO HS 01/29/19 09/16/19 atorvastatin [Lipitor] 40 mg PO HS 07/11/19 09/16/19 diltiazem HCl [Cartia XT] 240 mg PO HS 07/11/19 09/16/19 lisinopril 20 mg PO HS 07/11/19 09/16/19 montelukast 10 mg PO HS 07/11/19 09/16/19 Previous Rx's Medication Instructions Recorded cyanocobalamin (vitamin B-12) 1,000 mcg PO QAM #180 tab 10/22/18 1,000 mcg tablet apixaban 5 mg tablet 5 mg PO BID #180 tab 04/12/19 levetiracetam 500 mg tablet 1,000 mg PO BID #28 tab 05/21/19 metoprolol tartrate 100 mg tablet 100 mg PO BID #180 tab 05/21/19 glimepiride 2 mg tablet 4 mg PO QAM #180 tab 05/24/19 sertraline 100 mg tablet 100 mg PO QAM #90 tab 05/24/19 levothyroxine 25 mcg tablet 25 mcg PO QAM #90 tab 05/27/19 albuterol sulfate 90 mcg/actuation 2 puffs INH Q4H PRN #18 gm 06/11/19 aerosol inhaler Portable Oxygen #1 ea 06/19/19 albuterol sulfate 2.5 mg INH .COMPLEX PRN #90 ml 06/20/19 metformin 1,000 mg tablet 1,000 mg PO BID #180 tab 06/21/19 fluticasone propionate 50 1 - 2 sprays INTNAS DAILY #9.9 ml 09/05/19 mcg/actuation nasal spray,suspension amoxicillin 875 mg-potassium 1 tab PO BID 10 Days #20 tab 09/16/19 clavulanate 125 mg tablet doxycycline hyclate 100 mg capsule 100 mg PO BID 10 Days #20 cap 09/16/19 fluticasone fur. 100 mcg-umeclid 1 inh INHALATION QAM #180 ea 09/18/19 62.5 mcg-vilant 25 mcg inhalat.powder Results & Data (ED) Vital Signs Vital Signs - 24 hr 09/18/19 17:13 09/18/19 17:58 09/18/19 19:36 Temperature 36.8 C Temperature Source Oral Pulse Rate 58 L Pulse Rate [Apical] 80 Respiratory Rate 18 18 Respiratory Effort / Characteristics Non-Labored Spontaneous Respiratory Depth Normal Respiratory Pattern Regular Blood Pressure 120/77 Blood Pressure [Right Arm] 135/78 Blood Pressure Mean 91 Blood Pressure Mean [Right Arm] 97 Blood Pressure Position [Right Arm] Sitting Pulse Oximetry 92 93 92 Oxygen Delivery Method Nasal Cannula Nasal Cannula Nasal Cannula Oxygen Flow Rate 2 2 2 Sepsis Recent Fever Within 48 Hours No Sepsis Action Taken by Nursing No Action Required Home Medications Current Medication List: was personally reviewed by me Laboratory Data Attestation: I reviewed the patient's lab results. Result diagrams: 09/18/19 18:17 09/18/19 18:17 Lab Results 09/18/19 09/18/19 09/18/19 Range/Units 18:17 18:17 18:17 WBC 15.44 H (4.8-10.8) K/uL RBC 4.72 (4.7-6.1) M/uL Hgb 12.2 L (14.0-18.0) g/dL Hct 37.8 L (42-52) % MCV 80.1 (80-100) fL MCH 25.8 (25-34) pg MCHC 32.3 (32-36) g/dL RDW Std Deviation 60.0 H (36.4-46.3) fL RDW Coeff of Ashu 20.4 H (11.5-14.5) % Plt Count 272 (130-400) K/uL MPV 9.4 (7.4-10.4) fL Neutrophils % (Manual) 54.0 % Lymphocytes % (Manual) 10.6 % Monocytes % (Manual) 2.7 % Eosinophils % (Manual) 32.7 % Neutrophils # (Manual) 8.34 H (1.4-6.5) K/uL Total Absolute Neuts 8.34 H (1.4-6.5) K/uL Lymphocytes # (Manual) 1.64 (1.2-3.4) K/uL Total Abs Lymphocytes 1.64 (1.2-3.4) K/uL Monocytes # (Manual) 0.42 (0.11-0.59) K/uL Eosinophils # (Manual) 5.05 H (0-0.5) K/uL Anisocytosis Present PT 11.5 (9.0-12.0) Seconds INR 1.1 (0.9-1.1) APTT 27.8 (21.0-31.0) Seconds PTT Ratio 1.0 Sodium 139 (136-145) mmol/L Potassium 4.3 (3.5-5.1) mmol/L Chloride 106 (98-107) mmol/L Carbon Dioxide 22 (21-32) mmol/L Anion Gap 11.0 (3-11) BUN 22 H (7-18) mg/dl Creatinine 0.90 (0.6-1.4) mg/dl Est Cr Clr Drug Dosing Not Reportable Est GFR ( Amer) 94.5 Est GFR (Non-Af Amer) 81.5 BUN/Creatinine Ratio 23.8 H (10-20) Glucose 86 (70-99) mg/dl Lactate (0.4-2.0) mmol/L Calcium 8.9 (8.5-10.1) mg/dl Magnesium 1.6 L (1.8-2.4) mg/dl Total Bilirubin 0.2 (0.2-1) mg/dl AST 17 (15-37) U/L ALT 19 (12-78) U/L Alkaline Phosphatase 99 (45-117) U/L Troponin I < 0.015 (0-0.045) ng/ml Total Protein 7.6 (6.4-8.2) gm/dl Albumin 3.1 L (3.4-5.0) gm/dl Globulin 4.5 H (2.5-4.0) gm/dl Albumin/Globulin Ratio 0.7 L (0.9-2) //20 Range/Units 18:34 WBC (4.8-10.8) K/uL RBC (4.7-6.1) M/uL Hgb (14.0-18.0) g/dL Hct (42-52) % MCV (80-100) fL MCH (25-34) pg MCHC (32-36) g/dL RDW Std Deviation (36.4-46.3) fL RDW Coeff of Ashu (11.5-14.5) % Plt Count (130-400) K/uL MPV (7.4-10.4) fL Neutrophils % (Manual) % Lymphocytes % (Manual) % Monocytes % (Manual) % Eosinophils % (Manual) % Neutrophils # (Manual) (1.4-6.5) K/uL Total Absolute Neuts (1.4-6.5) K/uL Lymphocytes # (Manual) (1.2-3.4) K/uL Total Abs Lymphocytes (1.2-3.4) K/uL Monocytes # (Manual) (0.11-0.59) K/uL Eosinophils # (Manual) (0-0.5) K/uL Anisocytosis PT (9.0-12.0) Seconds INR (0.9-1.1) APTT (21.0-31.0) Seconds PTT Ratio Sodium (136-145) mmol/L Potassium (3.5-5.1) mmol/L Chloride (98-107) mmol/L Carbon Dioxide (21-32) mmol/L Anion Gap (3-11) BUN (7-18) mg/dl Creatinine (0.6-1.4) mg/dl Est Cr Clr Drug Dosing Est GFR ( Amer) Est GFR (Non-Af Amer) BUN/Creatinine Ratio (10-20) Glucose (70-99) mg/dl Lactate 2.5 H* (0.4-2.0) mmol/L Calcium (8.5-10.1) mg/dl Magnesium (1.8-2.4) mg/dl Total Bilirubin (0.2-1) mg/dl AST (15-37) U/L ALT (12-78) U/L Alkaline Phosphatase (45-117) U/L Troponin I (0-0.045) ng/ml Total Protein (6.4-8.2) gm/dl Albumin (3.4-5.0) gm/dl Globulin (2.5-4.0) gm/dl Albumin/Globulin Ratio (0.9-2) Administered Medications Magnesium Sulfate/Dextrose (Magnesium Sulfate / D5w) 1 gm in 100 mls @ 100 mls/hr IV Q1H PATO Stop: 09/18/19 20:50 Last Admin: 09/18/19 19:37 Dose: 100 mls/hr Documented by: [id number] Discontinued Medications Ceftriaxone Sodium (Rocephin) 1,000 mg in 50 mls @ 100 mls/hr IV NOW STA Stop: 09/18/19 18:13 Last Infusion: 09/18/19 18:54 Dose: 0 mls/hr Documented by: [id number] Admin: 09/18/19 18:21 Dose: 100 mls/hr Documented by: [id number] Sodium Chloride (Nss 1000ml) 500 mls @ 999 mls/hr IV .Q31M ONE Stop: 09/18/19 19:41 Last Admin: 09/18/19 19:37 Dose: 999 mls/hr Documented by: [id number] Imaging Data Radiologist's Impression: CT chest wo con CLINICAL HISTORY: Pneumonia. History of lung collapse. COMPARISON STUDY: 07/11/2019 CT DOSE: 250.14 mGy.cm TECHNIQUE: CT of the thorax was performed from the thoracic inlet to the lung bases. Images are reviewed in the axial, sagittal, and coronal planes. IV contrast was not administered for this examination. A dose lowering technique was utilized adhering to the principles of ALARA. FINDINGS: Thyroid: Imaged portions of the thyroid gland are normal in appearance. Thoracic aorta: The ascending thoracic aorta measures 36 mm. Heart: The heart is mildly enlarged with coronary artery calcifications. Lungs and pleural spaces: There is a small left pleural effusion and trace right pleural effusion. There is left upper lobe collapse with narrowing of the left upper lobe bronchus. There is also narrowing of the left lower lobe bronchus. There is pulmonary edema. There is left apical septal edema. There is multifocal bronchial wall thickening and mucous plugging. There are right lower lobe groun dglass opacities, pneumonia versus atelectasis. Evaluation is limited due to respiratory motion artifact Mediastinum: There is a gas collection which appears to be located within the left anterior superior mediastinum. There are borderline enlarged mediastinal lymph nodes. Larisa: Hilar structures are difficult to assess without contrast. It is difficult to exclude a left hilar mass although none was visualized on the prior July 11, 2019 CT scan. Axilla: Clear. Upper abdomen: There are bilateral adrenal nodules measuring 2 cm on the right and 1 cm on the left. These are of low attenuation likely represent adenomas. Skeletal structures: There are no lytic or blastic osseous lesions. There is a stable 27 mm subcutaneous anterior chest wall nodule, possibly representing a sebaceous cyst IMPRESSION: 1. Examination limited secondary to respiratory motion artifact and lack of intravenous contrast administration 2. Unusual anterior pneumomediastinum of uncertain etiology 3. Left upper lobe collapse 4. Borderline enlarged mediastinal lymph nodes 5. Small left pleural effusion and trace right pleural effusion 6. Right lower lobe groundglass opacities, pneumonia versus atelectasis 7. Left apical septal edema 8. Multifocal bronchial wall thickening and mucous plugging 9. Narrowing of the left upper lobe and left lower lobe bronchus. While a mass cannot be excluded, this may be secondary to aspiration/mucous plugging as no mass was visualized on the July 2019 study. 10. Bilateral adrenal gland nodules, adenomas are favored 11. Stable 27 mm subcutaneous anterior chest wall mass possibly representing a sebaceous cyst Blood Pressure Blood Pressure Findings: Elevated blood pressure Blood Pressure Disposition: further management by hospitalist Discharge Plan Visit Data Chief Complaint: Referred by Doctor Stated Complaint: COLLAPSED LUNG ED Provider: Eze Benites Discharge Problem: SOB (shortness of breath), Pneumonia, Pneumomediastinum, Leukocytosis, Hypomagnesemia Patient Disposition: Being Evaluated by Hospitalist Condition: Fair Forms Stand Alone Forms: [facility] [place] [employer] Prescriptions Prescriptions: No Action cyanocobalamin (vitamin B-12) [Vitamin B-12] 1,000 mcg tablet 1,000 mcg PO QAM Qty: 180 RF: 1 Eliquis 5 mg tablet 5 mg PO BID Qty: 180 RF: 3 metoprolol tartrate 100 mg tablet 100 mg PO BID Qty: 180 RF: 1 levetiracetam [Keppra] 500 mg tablet 1,000 mg PO BID Qty: 28 RF: 1 glimepiride 2 mg tablet 4 mg PO QAM Qty: 180 RF: 1 sertraline 100 mg tablet 100 mg PO QAM Qty: 90 RF: 2 levothyroxine [Synthroid] 25 mcg tablet 25 mcg PO QAM Qty: 90 RF: 1 albuterol sulfate 2.5 mg /3 mL (0.083 %) solution for nebulization 2.5 mg INH .COMPLEX PRN (Reason: shortness of breath or wheezing) Qty: 90 RF: 1 metformin 1,000 mg tablet 1,000 mg PO BID Qty: 180 RF: 3 calcium carbonate-vitamin D3 600 mg(1,500mg) -400 unit tablet 2 tab PO QDD RF: 0 albuterol sulfate [Ventolin HFA] 90 mcg/actuation HFA aerosol inhaler 2 puffs INH Q4H PRN (Reason: Shortness Of Breath) Qty: 18 RF: 3 (DME) Portable Oxygen Misc See Rx Instructions .ROUTE .MEDSUPPLY Qty: 1 RF: 0 fluticasone propionate [Allergy Relief (fluticasone)] 50 mcg/actuation spray,suspension 1 - 2 sprays INTNAS DAILY Qty: 9.9 RF: 3 doxycycline hyclate 100 mg capsule 100 mg PO BID 10 Days Qty: 20 RF: 0 amoxicillin-pot clavulanate 875-125 mg tablet 1 tab PO BID 10 Days Qty: 20 RF: 0 Trelegy Ellipta 100-62.5-25 mcg blister with device 1 inh INHALATION QAM Qty: 180 RF: 1 Vitamin D3 4,000 unit Capsule 4,000 unit PO HS RF: 0 aspirin [Aspir-81] 81 mg Tablet,Delayed Release (Dr/Ec) 81 mg PO BID RF: 0 atorvastatin [Lipitor] 40 mg tablet 40 mg PO HS RF: 0 diltiazem HCl [Cartia XT] 240 mg capsule,extended release 24hr 240 mg PO HS RF: 0 lisinopril 20 mg tablet 20 mg PO HS RF: 0 montelukast 10 mg tablet 10 mg PO HS RF: 0 Referrals Referrals: Lorna Tucker DO [Primary Care Provider] - Discharge Problem: Pneumonia Qualifiers: Pneumonia type: due to unspecified organism Laterality: left Lung location: upper lobe of lung Qualified Code(s): J18.9 - Pneumonia, unspecified organism Leukocytosis Qualifiers: Leukocytosis type: unspecified Qualified Code(s): D72.829 - Elevated white blood cell count, unspecified
[2019-09-18 18:25] LABS: Mean Corpuscular Hgb Conc 32.3 g/dL (32-36); Mean Platelet Volume 9.4 fL (7.4-10.4); Platelet Count 272 K/uL (130-400)
[2019-09-18 18:36] LABS: INR 1.1 (0.9-1.1); Partial Thromboplastin Time 27.8 Seconds (21.0-31.0); Prothrombin Time 11.5 Seconds (9.0-12.0)
[2019-09-18 18:43] LABS: Hematocrit (blood only) 37.8 % (42-52); Hemoglobin 12.2 g/dL (14.0-18.0); Mean Corpuscular Hemoglobin 25.8 pg (25-34); Mean Corpuscular Volume 80.1 fL (80-100); RDW Coefficient of Variation 20.4 % (11.5-14.5); Red Blood Count 4.72 M/uL (4.7-6.1); White Blood Count 15.44 K/uL (4.8-10.8)
[2019-09-18 18:44] LABS: ALC (manual) 1.64 K/uL (1.2-3.4); ANC (manual) 8.34 K/uL (1.4-6.5); Alanine Aminotransferase 19 U/L (12-78); Albumin Level 3.1 gm/dl (3.4-5.0); Anisocytosis Present; Aspartate Aminotransferase 17 U/L (15-37); BUN Creatinine Ratio 23.8 (10-20); Blood Urea Nitrogen 22 mg/dl (7-18); Calcium 8.9 mg/dl (8.5-10.1); Carbon Dioxide 22 mmol/L (21-32); Chloride 106 mmol/L (98-107); Eosinophils # (manual) 5.05 K/uL (0-0.5); Eosinophils % (manual) 32.7 %; Est GFR (African American) 94.5; Est GFR (Non-African American) 81.5; Glucose 86 mg/dl (70-99); Lymphocytes # (manual) 1.64 K/uL (1.2-3.4); Lymphocytes % (manual) 10.6 %; Magnesium 1.6 mg/dl (1.8-2.4); Monocytes # (manual) 0.42 K/uL (0.11-0.59); Monocytes % (manual) 2.7 %; Neutrophils # (manual) 8.34 K/uL (1.4-6.5); Potassium 4.3 mmol/L (3.5-5.1); Sodium 139 mmol/L (136-145)
[2019-09-18 18:49] LABS: Albumin Globulin Ratio 0.7 (0.9-2); Alkaline Phosphatase 99 U/L (45-117); Bilirubin,Total 0.2 mg/dl (0.2-1); Globulin 4.5 gm/dl (2.5-4.0); Total Protein 7.6 gm/dl (6.4-8.2); Troponin I < 0.015 ng/ml (0-0.045)
[2019-09-18] MEDS ORDERED: SODIUM CHLORIDE 0.9% 1000ML 500 ML IV ONE (19:11)
[2019-09-18] MEDS: MAGNESIUM SULFATE / D5W 1 GM/100 ML BAG IV SCH ×2 (19:37→20:38)
--- NOTE | 2019-09-18 19:46 | CT Scan Report ---
CT chest wo con CLINICAL HISTORY: Pneumonia. History of lung collapse. COMPARISON STUDY: 07/11/2019 CT DOSE: 250.14 mGy.cm TECHNIQUE: CT of the thorax was performed from the thoracic inlet to the lung bases. Images are revi ewed in the axial, sagittal, and coronal planes. IV contrast was not administered for this examinatio n. A dose lowering technique was utilized adhering to the principles of ALARA. FINDINGS: Thyroid: Imaged portions of the thyroid gland are normal in appearance. Thoracic aorta: The ascending thoracic aorta measures 36 mm. Heart: The heart is mildly enlarged with coronary artery calcifications. Lungs and pleural spaces: There is a small left pleural effusion and trace right pleural effusion. Th ere is left upper lobe collapse with narrowing of the left upper lobe bronchus. There is also narrowi ng of the left lower lobe bronchus. There is pulmonary edema. There is left apical septal edema. Ther e is multifocal bronchial wall thickening and mucous plugging. There are right lower lobe groundglass opacities, pneumonia versus atelectasis. Evaluation is limited due to respiratory motion artifact Mediastinum: There is a gas collection which appears to be located within the left anterior superior mediastinum. There are borderline enlarged mediastinal lymph nodes. Larisa: Hilar structures are difficult to assess without contrast. It is difficult to exclude a left hi lar mass although none was visualized on the prior July 11, 2019 CT scan. Axilla: Clear. Upper abdomen: There are bilateral adrenal nodules measuring 2 cm on the right and 1 cm on the left. These are of low attenuation likely represent adenomas. Skeletal structures: There are no lytic or blastic osseous lesions. There is a stable 27 mm subcutane ous anterior chest wall nodule, possibly representing a sebaceous cyst IMPRESSION: 1. Examination limited secondary to respiratory motion artifact and lack of intravenous contrast admi nistration 2. Unusual anterior pneumomediastinum of uncertain etiology 3. Left upper lobe collapse 4. Borderline enlarged mediastinal lymph nodes 5. Small left pleural effusion and trace right pleural effusion 6. Right lower lobe groundglass opacities, pneumonia versus atelectasis 7. Left apical septal edema 8. Multifocal bronchial wall thickening and mucous plugging 9. Narrowing of the left upper lobe and left lower lobe bronchus. While a mass cannot be excluded, th is may be secondary to aspiration/mucous plugging as no mass was visualized on the July 2019 study. 10. Bilateral adrenal gland nodules, adenomas are favored 11. Stable 27 mm subcutaneous anterior chest wall mass possibly representing a sebaceous cyst ACT 112: Negative or not required by law. Electronically signed by: Braulio Vazquez M.D. 09/18/2019 7:45 PM
--- NOTE | 2019-09-18 23:35 | History & Physical Report ---
Date of Service September 18, 2019 Assessment & Plan (1) SOB (shortness of breath): 79 year old man here for shortness of breath found to have obstructive process in left lung with atelectasis and pneumomediastinum Lobe collapse and pneumomediastinum Likely both from obstructive process will admit and consult pulmonology Concern for mucus plugging vs mass Will make patient NPO and hold eliquis for possible bronch and biopsy tomorrow (Which patient is unsure if he is taking last prescription appears to have been filled last year) Patient's shortness of breath likely related to lung collapse but also appears to have active infectious process going on. Pneumonia Post obstructive pneumonia Will likely need bronch In meantime will treat with vancomycin and zosyn in this patient with possible obstruction and recent hospitalization Afebrile and hemodynamically stable A fib Holding eliquis for possible procedure, he can't tell me if he is taking this regularly Continuing home diltiazem COPD Continuing antibiotics as above Albuterol neb prn COntinuing home inhalers DMII Holding home oral agents Placed on sliding scale insulin Seizure disorder Keppra 1000 mg BID continued DVT PPx: SCD's F/E/N: NPO NSS 80 mls/hour Dispo: Admit to med surg with pulmonology consult for characterization of obstruction/pneumomediastinum FULL CODE (2) Pneumonia: (3) Pneumomediastinum: (4) Leukocytosis: (5) Hypomagnesemia: (6) Diabetes mellitus: History of Present Illness Chief Complaint: SHortness of breath, wheezing, coughing Primary Care Provider: Lorna Tucker DO Jose J Zurita is a 79 year old man with a past medical history significant for COPD (on home oxygen 2L at night, he tells me his baseline O2 is between 85 and 88 during the day time and he occasionally supplements with O2 during the day 2L when it drops below 85) HTN, Hypothyroidism, dyslipidemia, moderate cognitive impairment, paroxysmal A fibs, DM ty 2, who presents to the Emergency Room with complaints of shortness of breath, coughing and wheezing. He has been having these symptoms for about 2 weeks the most troubling for him has been this cough which is productive of pearly mucus. No blood. His had him see his primary care physician who put him on doxycycline and augmentin which have not helped his symptoms. On arrival to emergency department patient was found to be oxygenating well on his home 2L of O2 and his vitals are otherwise WNL. Labwork significant for an elevated white count of 15.[address] scan of chest obtained showing left upper lobe collapse with narrowing of the left upper lobe bronchus. There is also narrowing of the left lower lobe bronchus. There is pulmonary edema. There is left apical septal edema. There is multifocal bronchial wall thickening and mucous plugging. There are right lower lobe groundglass opacities, pneumonia versus atelectasis. He was given 500 mls of normal saline, one gram of ceftriaxone and 1 gram of magnesium in ED. Patient is unable to remember much to any of his medical history or any of his medications and said that he is forgetful and that his helps him with all of that. He does tell me he is a former smoker and quit 30 years ago after about 40 pack years. He tells me he thinks he may have had a "small heart attack" years ago that he did not go to [facility] for and recently had a portion of his lung removed by Dr. 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 He has had atelectasis in the past secondary to mucus plugging. Follows with Dr. Eaosn of pulmonology. He was also hospitalized in the last year for new seizure disorder for which he is now on keppra. No history of any cancer, not sure of any family history. Allergies Allergy/AdvReac Type Severity Reaction Status Date / Time pollen extracts Allergy Mild CONGESTION Verified 09/16/19 15:33 Home Medications Home Medications Medication Instructions Recorded Confirmed Type aspirin [Aspir-81] 81 mg PO QAM 02/02/18 09/18/19 History cyanocobalamin (vitamin B-12) 1,000 mcg PO QAM #180 tab 10/22/18 09/18/19 Rx 1,000 mcg tablet calcium carbonate 600 mg (1,500 2 tab PO QAM 01/16/19 09/18/19 History mg)-vitamin D3 400 unit tablet apixaban 5 mg tablet 5 mg PO BID #180 tab 04/12/19 09/18/19 Rx levetiracetam 500 mg tablet 1,000 mg PO BID #28 tab 05/21/19 09/18/19 Rx metoprolol tartrate 100 mg tablet 100 mg PO BID #180 tab 05/21/19 09/18/19 Rx glimepiride 2 mg tablet 4 mg PO QAM #180 tab 05/24/19 09/18/19 Rx sertraline 100 mg tablet 100 mg PO QAM #90 tab 05/24/19 09/18/19 Rx levothyroxine 25 mcg tablet 25 mcg PO QAM #90 tab 05/27/19 09/18/19 Rx atorvastatin [Lipitor] 40 mg PO QAM 07/11/19 09/18/19 History diltiazem HCl [Cartia XT] 240 mg PO HS 07/11/19 09/18/19 History lisinopril 20 mg PO HS 07/11/19 09/18/19 History montelukast 10 mg PO HS 07/11/19 09/18/19 History amoxicillin 875 mg-potassium 1 tab PO BID 10 Days #20 tab 09/16/19 09/18/19 Rx clavulanate 125 mg tablet doxycycline hyclate 100 mg capsule 100 mg PO BID 10 Days #20 cap 09/16/19 09/18/19 Rx albuterol sulfate 2.5 mg INH QID PRN 09/18/19 09/18/19 History albuterol sulfate [Ventolin HFA] 2 puffs INH Q4H PRN 09/18/19 09/18/19 History fluticasone fur. 100 mcg-umeclid 1 inh INHALATION QAM #180 ea 09/18/19 09/18/19 Rx 62.5 mcg-vilant 25 mcg inhalat.powder fluticasone propionate [Allergy 1 - 2 sprays INTNAS DAILY 09/18/19 09/18/19 History Relief (fluticasone)] metformin 1,000 mg PO BIDM 09/18/19 09/18/19 History Past Med/Surg History Medical History Abdominal aortic aneurysm (AAA), 30-34 mm diameter (Chronic) Anxiety Arteriosclerotic coronary artery disease (Chronic) Asthma (Chronic) Atrial flutter DX [address] CUELLAR IN [place] Benign prostatic hyperplasia with urinary obstruction (Chronic) CAD (coronary artery disease) Chronic anticoagulation (Chronic) COPD, moderate (Chronic) Depression (Chronic) Dyslipidemia (Chronic) History of acute bronchitis with bronchospasm History of sinusitis Hypertension (Chronic) Hypothyroidism (acquired) (Chronic) Mild cognitive impairment (Chronic) On home oxygen therapy AT NIGHT Osteoarthritis Osteoporosis (Chronic) Paroxysmal atrial fibrillation (Chronic) DX [address] CUELLAR IN [place] Seizure (Acute) 01/29/19 - X2 ON THAT DAY AND WAS ADMITTED AND STARTED ON KEPPRA AND NO SEIZURE SINCE TIA (transient ischemic attack) 2017 X 1 AND NONE SINCE Tremor HANDS Type 2 diabetes mellitus (Chronic) Surgical History H/O 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 Lynn 03/27/19 Hx of cardiac cath 2017 -- HEART CATH WITH STENT [address] [facility] WITH DR CUELLAR LAST SEEN 12/20/2018 Family History Father Heart disease Other COPD (chronic obstructive pulmonary disease) Depression Family history non-contributory Denies family history of Ovarian cancer Prostate cancer Coronary heart disease Myocardial infarction Breast cancer Seizure Lung cancer Colorectal cancer Social History Preferred Language: Lao Communication Ability: Effective Visual Impairment: No Limitations Hearing Ability: Use of Hearing Aid Webbing Seamer Pound Net Required: No Beliefs That Will Affect Care: None marital status: Current Living Situation: Spouse current occupational status: retired 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, 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[employer] Other Information That Helps Us Care for You: No Feels Safe at Home: Yes Safety Concerns: Feels Safe At This Time Smoking Status: Former smoker Tobacco Type: cigarettes ; Cigarettes Per Day: 20-40 ; Do You Dip or Chew Tobacco: No ; Smoking End Date: 1973 ; Number of Years Since Quit: 34 ; Second Hand Exposure: No ; Tobacco Cessation Education Requested by Patient: No Hx Alcohol Use: No Hx Substance Use: No Childhood Exposure to Second-Hand Smoke: Yes Diet Comment: regular caffeine: No Dental Care, Regularly: No Physical Activity Frequency: Does not Exercise Seatbelt Use: always Sunscreen Use: Yes Review of Systems Constitutional: + fatigue, + malaise and + weakness; no fever and no chills Ear, Nose, Mouth, Throat: no problem reported Respiratory: + cough, + chest congestion, + change in sputum, + dyspnea, + dyspnea on exertion and + wheezing Cardiovascular: no chest pain, no palpitations, no lightheadedness, no syncope and no calf pain Gastrointestinal: no abdominal pain, no nausea, no vomiting, no diarrhea/loose stools, no blood in stools and no melena Genitourinary: no dysuria Physical Exam Physical Exam: Constitutional: Well appearing 79 year old man lying comfortably in bed with nasal cannula in place, no apparent distress Eyes: PERRLA, no abnormality detected ENMT: NAD Neck: Supple, no increased JVP, no masses Respiratory: No increased work of breathing, decreased breath sounds throughout marked in left middle and upper lung field, no wheezing appreciated Cardiovascular: Regular rate regular rhythm, no murmurs rubs skips or gallops, no lower limb edema, peripheral pulses intact and equal GI: Abdomen soft and nontender, no masses Skin: Warm dry no breaks appreciated Results & Data Results & Data ([facility]) Vital Signs (Past 12 Hours) Vital Signs Temp Pulse Pulse Resp BP BP Pulse Ox 09/18/19 23:03 89 22 123/75 95 09/18/19 21:38 87 L 09/18/19 20:41 85 18 136/89 92 09/18/19 19:36 80 18 135/78 92 09/18/19 17:58 93 09/18/19 17:13 36.8 C 58 L 18 120/77 92 Code Status & VTE Plan VTE Prophylaxis Plan VTE Prophylaxis will be ordered: Yes Supervising Physician Co-Signing Physician Notes Attending addendum: I have physically seen this patient, have supervised the medical residents activities, and agree with the H&P unless as otherwise noted. Assessment and Plan: Left upper lobe collapse/atelectasis/pneumomediastinum/unknown obstructive process- NPO except essential medications Vancomycin IV and Zosyn IV. DuoNebs Consult pulmonology. Diabetes mellitus- Hold home oral medications. Placed on Accu-Cheks before meals and at bedtime with NovoLog coverage per scale. Pl seizure disorder- Continue Keppra 1000 mg p.o. twice daily Remainder of orders and notations as noted. Resident Activity Tracking Resident Involvement: Resident Care Provided Care Provided: Adult Hospital Medicine (1) Leukocytosis Leukocytosis type: unspecified Qualified Code(s): D72.829 - Elevated white blood cell count, unspecified (2) Pneumonia Laterality: left Lung location: upper lobe of lung Pneumonia type: due to unspecified organism Qualified Code(s): J18.9 - Pneumonia, unspecified organism
[2019-09-19] MEDS ORDERED: ALBUTEROL 0.083% NEBU SOLN 3 ML VIAL INH PRN (00:32)
[2019-09-19] MEDS ORDERED: DC ALL PREVIOUSLY ORDERED DIABETES MEDS ONE (00:32)
[2019-09-19] MEDS ORDERED: GLUCOSE 10 TABS/TUBE PO PRN (00:32)
[2019-09-19] MEDS ORDERED: GLUCOSE 40% GEL 15 GM TUBE PO PRN (00:32)
[2019-09-19] MEDS ORDERED: ACETAMINOPHEN 325 MG TAB PO PRN (00:32)
[2019-09-19] MEDS ORDERED: ONDANSETRON INJ 2 MG/ML 2 ML VIAL IV PRN (00:32)
[2019-09-19] MEDS ORDERED: PIPERACILLIN/TAZOBACTAM 3.375 GM in DEXTROSE 5% 100 ML IV ONE (00:32)
[2019-09-19] MEDS ORDERED: DEXTROSE 50% 50 ML SYRINGE IV PRN (00:32)
[2019-09-19] MEDS ORDERED: VANCOMYCIN CONSULT ACTIVE PRN (00:32)
[2019-09-19] MEDS ORDERED: CARBOHYDRATES FOR HYPOGLYCEMIA PO PRN (00:32)
[2019-09-19] MEDS ORDERED: GLUCAGON FOR INJ 1 MG VIAL SQ PRN (00:32)
[2019-09-19] MEDS ORDERED: PIPERACILL/TAZOBAC CONSULT ACTIVE PRN (00:32)
[2019-09-19] MEDS ORDERED: PATIENT'S HEIGHT AND/OR WEIGHT NEEDED SCH (01:00)
[2019-09-19] MEDS ORDERED: VANCOMYCIN HCL 1,500 MG in SODIUM CHLORIDE 0.9% 500 ML IV ONE (01:45)
[2019-09-19] MEDS: SODIUM CHLORIDE 0.9% 1000ML 1,000 ML IV SCH ×3 (04:28→21:38)
[2019-09-19] MEDS: PIPERACILLIN/TAZOBACTAM 3.375 GM in DEXTROSE 5% 100 ML IV SCH ×3 (06:03→21:04)
[2019-09-19] MEDS: LEVOTHYROXINE SODIUM 25 MCG TABLET PO SCH (06:04)
[2019-09-19 06:51] LABS: Mean Corpuscular Hgb Conc 32.1 g/dL (32-36); Mean Platelet Volume 9.7 fL (7.4-10.4); Platelet Count 265 K/uL (130-400)
[2019-09-19 07:24] LABS: BUN Creatinine Ratio 17.8 (10-20); Calcium 8.4 mg/dl (8.5-10.1); Creatinine Clr Calc Pharmacy 77.3 ml/min; Est GFR (Non-African American) 88.8; Potassium 3.7 mmol/L (3.5-5.1)
[2019-09-19 07:26] LABS: ANC (manual) 7.14 K/uL (1.4-6.5); Anisocytosis Present; Eosinophils # (manual) 3.83 K/uL (0-0.5); Hematocrit (blood only) 40.5 % (42-52); Lymphocytes # (manual) 1.11 K/uL (1.2-3.4); Lymphocytes % (manual) 7.8 %; Mean Corpuscular Hemoglobin 25.8 pg (25-34); Mean Corpuscular Volume 80.4 fL (80-100); Microcytosis Present; Monocytes # (manual) 1.11 K/uL (0.11-0.59); Monocytes % (manual) 7.8 %; Neutrophils # (manual) 7.14 K/uL (1.4-6.5); Neutrophils % (manual) 50.4 %; Poikilocytosis Present; RDW Coefficient of Variation 20.5 % (11.5-14.5); RDW Standard Deviation 60.6 fL (36.4-46.3); Reactive Lymphocytes # (manual) 0.99 K/uL; Red Blood Count 5.04 M/uL (4.7-6.1); White Blood Count 14.17 K/uL (4.8-10.8)
[2019-09-19] MEDS: INSULIN ASPART 100 UNITS/ML 3 ML PEN SC SCH ×5 (08:30→20:58)
[2019-09-19] MEDS: METOPROLOL TARTRATE 100 MG TAB PO SCH ×2 (08:46→20:57)
[2019-09-19] MEDS: CYANOCOBALAMIN 500 MCG TABLET (VITAMIN B-12) PO SCH (08:47)
[2019-09-19] MEDS: levETIRAcetam 500 MG TAB PO SCH ×2 (08:47→20:56)
[2019-09-19] MEDS: ASPIRIN 81 MG ECTAB PO SCH (08:48)
[2019-09-19] MEDS: SERTRALINE HCL 100 MG TABLET PO SCH (08:48)
[2019-09-19] MEDS: CALCIUM 600MG + VIT D 400 IU TAB PO SCH (08:48)
[2019-09-19] MEDS: ATORVASTATIN 40 MG TAB PO SCH (08:48)
[2019-09-19] MEDS: UMECLIDINIUM/VILANTEROL 62.5/25MCG 7 PUFFS/INHALER INH SCH (11:14)
[2019-09-19] MEDS: FLUTICASONE FUROATE 100MCG 14 PUFFS/INHALER INH SCH (11:15)
[2019-09-19] MEDS ORDERED: VANCOMYCIN HCL 1,250 MG in SODIUM CHLORIDE 0.9% 250 ML IV SCH (16:00)
--- NOTE | 2019-09-19 16:08 | Pharmacy Report ---
Pharmacy Abx Initial Consult - Date of Service September 19, 2019 - Pharmacy Dosing Scope Date of Consult: 09/19/2019 Consultation requested by: Dr. Solomon Pharmacy is consulted to initiate Vancomycin + Zosyn IV dosing therapy, order appropriate labs and adjust drug dose/frequency. - Subjective The patient is a 79 year old M admitted on 09/18/19 23:13. - Objective Height: 5 ft 10 in Weight: 65.5 kg Vital Signs (Past 12hrs): Vital Signs Temp Pulse Resp BP Pulse Ox 09/19/19 15:46 36.6 C 76 18 142/76 H 95 09/19/19 07:03 36.9 C 105 H 22 136/77 92 Lab Results (24hrs): Laboratory Tests (24 Hours) 09/19/19 09/19/19 09/18/19 06:17 06:17 18:17 WBC 14.17 H 15.44 H Creatinine 0.73 Est Cr Clr Drug Dosing 77.3 09/18/19 18:17 WBC Creatinine 0.90 Est Cr Clr Drug Dosing Not Reportable Micro Results: 09/18/19 18:17 Aerobic Blood Culture - Pending Blood Anaerobic Blood Culture - Pending 09/18/19 18:17 Aerobic Blood Culture - Pending Blood Anaerobic Blood Culture - Pending - Risk Factors for Resistance * Hospitalization for 48 hours or more within the past 90 days * Antimicrobial use within the last 90 days: Augmentin + Doxycycline - Assessment & Plan Assessment 79 year old M admitted secondary to shortness of breath - Possible PNA, imaging shows possible mucus plugging vs mass - To undergo a bronch tomorrow - Afebrile, lactate down from 2.5 to 1.0, WBCs down from 15.4K to 14.2K, Renal function at baseline, afebrile - Cultures pending Plan IV Vancomycin + Zosyn for treatment of pneumonia Vancomycin IV * Patient meets criteria for vancomycin AUC dosing nomogram * AUC/ARCELIA is the preferred PK/PD target for vancomycin * Target AUC/ARCELIA = 400-600 * AUC guided dosing is effective and associated with decreased risk of nephrotoxicity Piperacillin/tazobactam * 3.375 g bolus administered over 30 minutes, then 3.375 g IV extended infusion every 8 hours for CrCl greater than 20 mL/min Pharmacy will continue to follow and will adjust dose/frequency as necessary. Thank you.
--- NOTE | 2019-09-19 18:20 | Hospitalist Progress Note ---
Date of Service September 19, 2019 Assessment & Plan (1) Left upper lobe pneumonia: Suspected post obstructive pneumonia based on presentation. MRSA nose swab negative. Stop vancomycin SLT evaluation given history of aspirations although noted prior video swallow showed no aspirations. Continue Zosyn Discussed with Dr Morris - possible bronchoscopy on Monday as need to be off apixaban for 48 hours. Diet order placed. Left upper lobe collapse previously in March after wedge resection that re quired bronchoscopy on post op day #4 to remove mucus plug. Collapse appears similar to this with resolution in July therefore suggestive of recurrent mucus plug. (2) SOB (shortness of breath): secondary to above (3) Pneumomediastinum: Aim O2 close to 100% as per pulm recommendations (4) Hypomagnesemia: s/p Mg sulphate 1g given in ER. Will repeat with AM labs (5) Diabetes mellitus: HbA1C 7.0 in May Insulin sliding scale Will defer bolus insulin given current glucose levels T2DM diet (6) COPD, moderate: No wheezing on exam to suggest exacerbation. Albuterol neb prn Continuing home inhalers (7) Paroxysmal atrial fibrillation: Currently in NSR. Anticoagulation switched to IV heparin drip. Continue diltiazem 240mg HS (8) Seizure: History of seizure disorder. None recent Continue Keppra 1000mg BID Admission and Anticipated Discharge Date Admission Date: September 18, 2019 Subjective Patient seen at bedside. Dressed in all his clothes and reporting to nursing staff he wants to go home. Annoyed about not having anything to eat (NPO for possible bronchoscopy) Generally confused about why he is here. Unable to get history from patient as he is unaware he is here. However he currently denies any chest pain, cough, fever, chills or shortness of breath. Discussed care with Dr Morris - planning for bronchoscopy possibly on Monday but would need to be off apixaban for 48 hours. Discussed care with his in the evening who usually makes medical decision for him. She reports he usually gets confused when he is in hospital. We discussed his previous hospitalization in March although I had not gone through all of that at the time of speaking to her therefore I was unaware that his left upper lobe collapse at that time was helped by bronchoscopy performed after his original operation by Dr Lynn - noted mucus plug removed on that occasion. Review of Systems Review of Systems: All systems reviewed & are unremarkable except as noted in HPI & below Physical Exam Constitutional: well developed; + not well nourished and no acute distress Eyes: + anicteric sclerae; normal pupil size ENMT: external ear and nose normal, oropharynx normal Neck: trachea midline, no thyromegaly Respiratory: normal respiratory effort and able to speak in complete sentences; no respiratory distress, no labored breathing and does not use accessory muscles Auscultation: + diminished lung sounds (throughout) and + crackles Cardiovascular: Rate/Rhythm: regular rate and regular rhythm Heart Sounds: no murmur Extremities: normal capillary refill and + pedal edema (1+ b/l to shins); no calf tenderness Gastrointestinal (Abdomen): normal bowel sounds, soft, nontender, no hepatosplenomegaly Musculoskeletal: no cyanosis or clubbing, extremities motor strength 5/5 Skin: no rashes, warm and dry Neurologic: moves all extremities, awake and + confused Psychiatric: Orientation: alert and oriented to person; + not oriented to place and + not oriented to time Results & Data Results & Data ([facility]) Vital Signs (Past 12 Hours) Vital Signs Temp Pulse Resp BP Pulse Ox 09/19/19 15:46 36.6 C 76 18 142/76 H 95 09/19/19 07:03 36.9 C 105 H 22 136/77 92 PG Care Time/CCT Total # of Minutes Spent Total Time Spent with Patient: Total time spent is greater than 50% in coordination of care (as documented) at patient's floor/unit and/or counseling patient: Coding Level of Care Code 96492 Subseq Hosp Care Lvl 3 Diagnoses Left upper lobe pneumonia J18.9 Pneumonia type: due to unspecified organism SOB (shortness of breath) R06.02 Pneumomediastinum J98.2 Hypomagnesemia E83.42 Diabetes mellitus E11.9 COPD, moderate J44.9 Paroxysmal atrial fibrillation I48.0 Seizure R56.9 (1) Left upper lobe pneumonia Pneumonia type: due to unspecified organism Qualified Code(s): J18.9 - Pneumonia, unspecified organism
--- NOTE | 2019-09-19 18:44 | Pulmonary Consultation ---
Date of Consultation September 19, 2019 Assessment & Plan (1) Pneumonia: CT chest 09/18/2019: Left upper lobe(lingula region) collapsed, the left main bronchus does seem to have some debris. With small left-sided pleural effusion. There is bronchial wall thickening appreciated bilaterally. Thickening of the left upper lobe pleura as well as interstitial thickening appreciated in the left upper lobe. Centrilobular emphysema. No significant mediastinal lymphadenopathy There is air appreciated anteriorly to the heart likely pneumomediastinum. No significant mediastinal adenopathy --Left upper lobe pneumonia Unclear if the patient has any obstructive lesion causing it. Given leukocytosis I would continue with antibiotics Follow-up septic work-up, ESR, CRP We will get a swallow eval on the patient to make sure patient is not aspirating as 1 can appreciate some debris in the left main bronchus --Spontaneous pneumomediastinum Etiology is not clear Patient has chronic cough but he denies any increase in intensity of cough. 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 Lynn in 2019 --David. lily Patient is on apixaban Last dose was 09/18/2019 Plan: Patient does have collapse of the left upper lobe. CAT scan from July 2019 as well as March 2019 was reviewed. Patient had right lower lobe pneumonia in July 2019 but has similar presentation of left upper lobe collapse in March 2019. Significant change from July to now on the CAT scan kind of goes against it being a mass and more towards collapse. Is there something endobronchial which might be causing this there is a possibility. Bronchoscopy could be considered to see if there is any endobronchial lesion. Patient is on apixaban but needs to be off apixaban for at least 48 hours prior to doing any invasive procedures including biopsies. But given that the patient last dose of apixaban was on 09/18/2027 cannot be done for at least 48 hours. If the patient is still in the hospital plan will be to have bronchoscopy done on Monday. Can start the patient on heparin drip in the meanwhile. Follow-up swallow eval. Please note the above document was generated using voice recognition software. It may contain grammatical, syntax or spelling errors. Laterality: left Lung location: upper lobe of lung Pneumonia type: due to unspecified organism Qualified Code(s): J18.9 - Pneumonia, unspecified organism (2) Pneumomediastinum: (3) COPD, moderate: History of Present Illness Attending Physician: Tristan Campoverde MD History of Present Illness 79-year-old male with past medical history of COPD on 2 L oxygen at night, hypertension, dyslipidemia, paroxysmal A. fib on apixaban, history of right lower lobe wedge resection which showed hamartoma back in 2019 was admitted to the hospital with complaints of shortness of breath cough and wheezing which has been going on since couple of weeks. He was given doxycycline and Augmentin as an outpatient which is helped with his symptoms. Patient had a CT chest in the ED which showed collapse of the left upper lobe/consolidation. Pulmonary was consulted for above reason. At the time of examination patient denies any chest pain, denies any shortness of breath, no dizziness, no headache, no blurry vision. Denies any dysuria, no diarrhea. Patient does complain that he has chronic cough which he has for a very long time and he brings up yellowish phlegm, no hemoptysis. Patient denies any dysphagia, no odynophagia. Denies any choking episodes on eating food or drinking water. Patient did complain of some weight loss. Denies any night sweats. No fever or chills. No recent travel history. Social history: Approximately [id number] smoking history, denies any alcohol use, no illicit drug use. On asking if he had any asbestos exposure he says very minimal. He was not able to elaborate it. No pets at home. No birds. No personal history of cancer. Allergies Allergy/AdvReac Type Severity Reaction Status Date / Time pollen extracts Allergy Mild CONGESTION Verified 09/16/19 15:33 Home Medications Home Medications Medication Instructions Recorded Confirmed Type aspirin [Aspir-81] 81 mg PO QAM 02/02/18 09/18/19 History cyanocobalamin (vitamin B-12) 1,000 mcg PO QAM #180 tab 10/22/18 09/18/19 Rx 1,000 mcg tablet calcium carbonate 600 mg (1,500 2 tab PO QAM 01/16/19 09/18/19 History mg)-vitamin D3 400 unit tablet apixaban 5 mg tablet 5 mg PO BID #180 tab 04/12/19 09/18/19 Rx levetiracetam 500 mg tablet 1,000 mg PO BID #28 tab 05/21/19 09/18/19 Rx metoprolol tartrate 100 mg tablet 100 mg PO BID #180 tab 05/21/19 09/18/19 Rx glimepiride 2 mg tablet 4 mg PO QAM #180 tab 05/24/19 09/18/19 Rx sertraline 100 mg tablet 100 mg PO QAM #90 tab 05/24/19 09/18/19 Rx levothyroxine 25 mcg tablet 25 mcg PO QAM #90 tab 05/27/19 09/18/19 Rx atorvastatin [Lipitor] 40 mg PO QAM 07/11/19 09/18/19 History diltiazem HCl [Cartia XT] 240 mg PO HS 07/11/19 09/18/19 History lisinopril 20 mg PO HS 07/11/19 09/18/19 History montelukast 10 mg PO HS 07/11/19 09/18/19 History amoxicillin 875 mg-potassium 1 tab PO BID 10 Days #20 tab 09/16/19 09/18/19 Rx clavulanate 125 mg tablet doxycycline hyclate 100 mg capsule 100 mg PO BID 10 Days #20 cap 09/16/19 09/18/19 Rx albuterol sulfate 2.5 mg INH QID PRN 09/18/19 09/18/19 History albuterol sulfate [Ventolin HFA] 2 puffs INH Q4H PRN 09/18/19 09/18/19 History fluticasone fur. 100 mcg-umeclid 1 inh INHALATION QAM #180 ea 09/18/19 09/18/19 Rx 62.5 mcg-vilant 25 mcg inhalat.powder fluticasone propionate [Allergy 1 - 2 sprays INTNAS DAILY 09/18/19 09/18/19 History Relief (fluticasone)] metformin 1,000 mg PO BIDM 09/18/19 09/18/19 History Patient History Medical History Abdominal aortic aneurysm (AAA), 30-34 mm diameter (Chronic) Anxiety Arteriosclerotic coronary artery disease (Chronic) Asthma (Chronic) Atrial flutter DX [address] [place] Benign prostatic hyperplasia with urinary obstruction (Chronic) CAD (coronary artery disease) Chronic anticoagulation (Chronic) COPD, moderate (Chronic) Depression (Chronic) Dyslipidemia (Chronic) History of acute bronchitis with bronchospasm History of sinusitis Hypertension (Chronic) Hypothyroidism (acquired) (Chronic) Mild cognitive impairment (Chronic) On home oxygen therapy AT NIGHT Osteoarthritis Osteoporosis (Chronic) Paroxysmal atrial fibrillation (Chronic) DX [address] [place]LL[place] Seizure (Acute) 01/29/19 - X2 ON THAT DAY AND WAS ADMITTED AND STARTED ON KEPPRA AND NO SEIZURE SINCE TIA (transient ischemic attack) 2017 X 1 AND NONE SINCE Tremor HANDS Type 2 diabetes mellitus (Chronic) Surgical History H/O 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 Lynn 03/27/19 Hx of cardiac cath 2017 -- HEART CATH WITH STENT 6 [facility] WITH DR CUELLAR LAST SEEN 12/20/2018 Family History Father Heart disease Other COPD (chronic obstructive pulmonary disease) Depression Family history non-contributory Denies family history of Ovarian cancer Prostate cancer Coronary heart disease Myocardial infarction Breast cancer Seizure Lung cancer Colorectal cancer Social History Preferred Language: Persian Communication Ability: Effective Visual Impairment: No Limitations Hearing Ability: Use of Hearing Aid Workers Compensation Coordinator Required: No Beliefs That Will Affect Care: None marital status: Current Living Situation: Spouse current occupational status: retired 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 Other Information That Helps Us Care for You: No Feels Safe at Home: Yes Safety Concerns: Feels Safe At This Time Smoking Status: Former smoker Tobacco Type: cigarettes ; Cigarettes Per Day: 20-40 ; Do You Dip or Chew Tobacco: No ; Smoking End Date: 1973 ; Number of Years Since Quit: 34 ; Second Hand Exposure: No ; Tobacco Cessation Education Requested by Patient: No Hx Alcohol Use: No Hx Substance Use: No Childhood Exposure to Second-Hand Smoke: Yes Diet Comment: regular caffeine: No Dental Care, Regularly: No Physical Activity Frequency: Does not Exercise Seatbelt Use: always Sunscreen Use: Yes Review of Systems Review of Systems: All systems reviewed & are unremarkable except as noted in HPI & below Physical Exam Physical Exam: Constitutional: No acute distress HEENT: EOMI, PERRLA Respiratory system: Decreased air entry bilaterally, positive crackles left lower lobe, no wheeze, no rhonchi CVS: S1-S2 positive, no murmurs or gallops Abdomen: Soft, nontender, nondistended, positive bowel sounds x4 Extremities: +2 pulses bilaterally radialis/ dorsalis pedis, no cyanosis, no edema, no clubbing Neuro: Awake alert oriented x3 Psych: Normal mood and affect G/U: None Zhao Skin: no rashes, warm and dry Lymphatic: no cervical or axillary lymphadenopathy Results & Data Results & Data ([facility]) Vital Signs (Past 12 Hours) Vital Signs Temp Pulse Resp BP Pulse Ox 09/19/19 15:46 36.6 C 76 18 142/76 H 95 09/19/19 07:03 36.9 C 105 H 22 136/77 92 09/19/19 06:17 09/19/19 06:17 PG Care Time/CCT Total # of Minutes Spent Total Time Spent with Patient: Total time spent is greater than 50% in coordination of care (as documented) at patient's floor/unit and/or counseling patient: [place] [address] Initial Inpt Care Lvl 3 Patient Type New Diagnoses Pneumonia J18.9 Laterality: left Lung location: upper lobe of lung Pneumonia type: due to unspecified organism Pneumomediastinum J98.2 COPD, moderate J44.9
[2019-09-19] MEDS: dilTIAZem HCL 240 MG CAPCR PO SCH (20:57)
[2019-09-19] MEDS: MONTELUKAST SODIUM 10 MG TABLET PO SCH (20:57)
[2019-09-19] MEDS: lisinopriL 20 MG TAB PO SCH (20:59)
[2019-09-19] MEDS: guaiFENesin 600 MG TABCR PO SCH (21:34)
--- NOTE | 2019-09-19 22:16 | Electrocardiogram Report ---
Test Reason : Blood Pressure : / mmHG Vent. Rate : 062 BPM Atrial Rate : 182 BPM P-R Int : 142 ms QRS Dur : 080 ms QT Int : 422 ms P-R-T Axes : 051 053 055 degrees QTc Int : 428 ms Sinus tachycardia with Premature atrial complexes Nonspecific ST abnormality Abnormal ECG When compared with ECG of 11-JUL-2019 14:56, Sinus rhythm has replaced Atrial flutter Confirmed by Edgar Lal ([id number]) on 09/19/2019 10:16:09 PM Referred By: REFERRED SELF Confirmed By:Edgar Lal
[2019-09-19] MEDS ORDERED: Heparin IV Low Dose *NO* Bolus IV SCH (22:56)
[2019-09-19] MEDS ORDERED: APIXABAN 5 MG TABLET PO SCH (23:00)
[2019-09-20] MEDS: HEPARIN SODIUM/DEXTROSE 25,000 UNITS/500 ML BAG IV SCH ×2 (00:34→23:13)
[2019-09-20] MEDS: PIPERACILLIN/TAZOBACTAM 3.375 GM in DEXTROSE 5% 100 ML IV SCH ×3 (05:35→21:38)
[2019-09-20 06:54] LABS: Mean Corpuscular Hgb Conc 32.4 g/dL (32-36); Mean Platelet Volume 9.3 fL (7.4-10.4); Platelet Count 258 K/uL (130-400)
[2019-09-20 07:04] LABS: Partial Thromboplastin Ratio 1.2; Partial Thromboplastin Time 32.3 Seconds (21.0-31.0)
[2019-09-20] MEDS ORDERED: HEPARIN IV BOLUS 4,500 UNITS in SYRINGE 0 ML IV STA (07:21)
[2019-09-20 07:36] LABS: BUN Creatinine Ratio 12.4 (10-20); Calcium 8.4 mg/dl (8.5-10.1); Creatinine Clr Calc Pharmacy 76.2 ml/min; Est GFR (African American) 102.4; Est GFR (Non-African American) 88.3; Potassium 3.8 mmol/L (3.5-5.1)
[2019-09-20 07:38] LABS: ALC (manual) 1.23 K/uL (1.2-3.4); ANC (manual) 8.38 K/uL (1.4-6.5); Anisocytosis Present; Basophils # (manual) 0.14 K/uL (0-0.2); Basophils % (manual) 0.9 %; Echinocytes 1+; Eosinophils # (manual) 5.35 K/uL (0-0.5); Eosinophils % (manual) 33.9 %; Hematocrit (blood only) 39.2 % (42-52); Hemoglobin 12.7 g/dL (14.0-18.0); Lymphocytes # (manual) 1.23 K/uL (1.2-3.4); Lymphocytes % (manual) 7.8 %; Mean Corpuscular Hemoglobin 25.8 pg (25-34); Mean Corpuscular Volume 79.5 fL (80-100); Monocytes # (manual) 0.68 K/uL (0.11-0.59); Monocytes % (manual) 4.3 %; Neutrophils # (manual) 8.38 K/uL (1.4-6.5); Neutrophils % (manual) 53.1 %; RDW Coefficient of Variation 20.3 % (11.5-14.5); RDW Standard Deviation 58.8 fL (36.4-46.3); Red Blood Count 4.93 M/uL (4.7-6.1); White Blood Count 15.79 K/uL (4.8-10.8)
[2019-09-20] MEDS: ASPIRIN 81 MG ECTAB PO SCH (07:51)
[2019-09-20] MEDS: guaiFENesin 600 MG TABCR PO SCH ×2 (07:51→20:51)
[2019-09-20] MEDS: ATORVASTATIN 40 MG TAB PO SCH (07:52)
[2019-09-20] MEDS: CYANOCOBALAMIN 500 MCG TABLET (VITAMIN B-12) PO SCH (07:52)
[2019-09-20] MEDS: METOPROLOL TARTRATE 100 MG TAB PO SCH ×2 (07:53→20:52)
[2019-09-20] MEDS: SERTRALINE HCL 100 MG TABLET PO SCH (07:53)
[2019-09-20] MEDS: levETIRAcetam 500 MG TAB PO SCH ×2 (07:53→20:53)
[2019-09-20] MEDS: CALCIUM 600MG + VIT D 400 IU TAB PO SCH (07:54)
[2019-09-20] MEDS: FLUTICASONE FUROATE 100MCG 14 PUFFS/INHALER INH SCH (07:54)
[2019-09-20] MEDS: UMECLIDINIUM/VILANTEROL 62.5/25MCG 7 PUFFS/INHALER INH SCH (07:55)
[2019-09-20] MEDS: LEVOTHYROXINE SODIUM 25 MCG TABLET PO SCH (07:55)
[2019-09-20] MEDS: INSULIN ASPART 100 UNITS/ML 3 ML PEN SC SCH ×4 (08:08→21:02)
[2019-09-20 08:17] LABS: Estimated Average Glucose 140 mg/dl; Hemoglobin A1C 6.5 % (4.5-5.6)
--- NOTE | 2019-09-20 10:54 | Fluoroscopy Report ---
FL video swallow CLINICAL HISTORY: 79 years-old Male with r/o aspiration. Dysphagia with concern for aspiration TECHNIQUE: Video fluoroscopic evaluation of swallowing was performed in the AP and lateral projection s by the speech pathology staff. The patient is fed nectar-thick and thin liquid barium, a barium coa tristin wafer, and barium pudding. FLUOROSCOPY TIME: 1.8 minutes.. COMPARISON STUDY: Swallow study 07/12/2019. FINDINGS: Silent aspiration with thin liquid barium esophageal dysmotility noted with nectar thick co nsistency. Moderate distal esophageal dysmotility.. Degenerative changes of the cervical spine incide ntally noted. IMPRESSION: 1. Aspiration with thin liquid barium. 2. Please see the speech pathologist report for detailed findings and recommendations. ACT 112: Negative or not required by law. Electronically signed by: Ruiz Deluca M.D. 09/20/2019 10:52 AM
--- NOTE | 2019-09-20 12:02 | Hospitalist Progress Note ---
Date of Service September 20, 2019 Assessment & Plan (1) Left upper lobe pneumonia: Suspected post obstructive pneumonia based on presentation. MRSA nose swab negative. Stopped vancomycin. - SLT evaluation on 09/19 showed aspiration of thin liquids and significant reflux -> Worse since last test in July. Continue Zosyn Discussed with pulmonology - Plan bronchoscopy on Monday Left upper lobe collapse previously in March after wedge resection that required bronchoscopy on post op day #4 to remove mucus plug. Collapse appears similar to this with resolution in July therefore suggestive of recurrent mucus plug. (2) SOB (shortness of breath): secondary to above (3) Pneumomediastinum: Aim O2 close to 100% as per pulm recommendations (4) Hypomagnesemia: s/p Mg sulphate 1g given in ER. Will repeat with AM labs (5) Diabetes mellitus: HbA1C 7.0 in May Insulin sliding scale Will defer bolus insulin given current glucose levels T2DM diet (6) COPD, moderate: No wheezing on exam to suggest exacerbation. Albuterol neb prn Continuing home inhalers (7) Paroxysmal atrial fibrillation: Currently in NSR. Anticoagulation switched to IV heparin drip. Continue diltiazem 240mg HS (8) Seizure: History of seizure disorder. None recent Continue Keppra 1000mg BID Admission and Anticipated Discharge Date Admission Date: September 18, 2019 Subjective Reports feeling well overall. He denies anything but baseline shortness of breath or cough. Reports no fevers/chills, chest pain, abdominal pain, nausea, or vomiting. Physical Exam Constitutional: WD/WN, vitals as above Eyes: EOM intact bilaterally; no conjunctival abnormality ENMT: external ear and nose normal, oropharynx normal Neck: trachea midline, no thyromegaly normal visual inspection Respiratory: + cough; no respiratory distress and not tachypneic Auscultation: + breath sounds absent (Left side, upper lobe.) Cardiovascular: RRR, no murmur, no edema Gastrointestinal (Abdomen): Inspection/Auscultation: abdomen normal to inspection; abdomen not distended Musculoskeletal: no cyanosis or clubbing, extremities motor strength 5/5 Skin: no rashes, warm and dry Neurologic: moves all extremities and awake Psychiatric: Orientation: alert, oriented to person and cooperative Results & Data Results & Data ([facility]) Vital Signs (Past 12 Hours) Vital Signs Temp Pulse Resp BP Pulse Ox 09/20/19 06:59 36.9 C 87 23 147/63 H 92 PG Care Time/CCT Total # of Minutes Spent Total Time Spent with Patient: Total time spent is greater than 50% in coordination of care (as documented) at patient's floor/unit and/or counseling patient: Coding Level of Care Code 64575 Subseq Hosp Care Lvl 2 Diagnoses Left upper lobe pneumonia J18.9 Pneumonia type: due to unspecified organism SOB (shortness of breath) R06.02 Pneumomediastinum J98.2 Hypomagnesemia E83.42 Diabetes mellitus E11.9 COPD, moderate J44.9 Paroxysmal atrial fibrillation I48.0 Seizure R56.9 (1) Left upper lobe pneumonia Pneumonia type: due to unspecified organism Qualified Code(s): J18.9 - Pneumonia, unspecified organism
[2019-09-20 14:01] LABS: Partial Thromboplastin Ratio 1.5; Partial Thromboplastin Time 40.7 Seconds (21.0-31.0)
[2019-09-20] MEDS ORDERED: HEPARIN IV BOLUS 4,500 UNITS in SYRINGE 0 ML IV ONE (15:15)
--- NOTE | 2019-09-20 15:36 | Pulmonology Progress Note ---
Date of Service September 20, 2019 Assessment & Plan (1) Left upper lobe pneumonia: It is possible that the patient has a postobstructive process. Unclear if there is any kind of a mass secondary to collapsed lung. At this time the patient's apixaban has been held and he is currently on heparin drip in anticipation of bronchoscopy on Monday Patient currently is oxygenating well on room air. Continue antibiotics as patient had leukocytosis Video swallow study this morning with aspiration of thin liquids Supportive care over the weekend we will plan on bronchoscopy Monday but will obtain chest x-ray in the morning Pneumonia type: due to unspecified organism Qualified Code(s): J18.9 - Pneumonia, unspecified organism (2) Pneumomediastinum: Continue supplemental O2. Patient stable on 2 L/min at bedtime and as needed during the day We will continue least 2 L continuously secondary to the pneumomediastinum Anticipate bronchoscopy on Monday Apixaban has been held and patient currently is on a heparin drip (3) Chronic respiratory failure: History of COPD CT scan with mucous plugging and question of collapse versus lesion Continue pulmonary toileting and ambulate as tolerated Possible bronchoscopy Monday Patient does use tobacco-less snuff * Patient does have evidence of aspiration on video swallow study * Discussed cessation of any snuff even though it does not have tobacco Continue home meds Patient uses supplemental O2 2 L/min at bedtime and during the day as needed Continue supplemental O2 as above Patient feels as though his back at baseline Chest x-ray Monday (4) Paroxysmal atrial fibrillation: Chronic apixaban This is been held and patient is currently on a heparin drip Hold heparin drip Monday if we are going to continue with bronchoscopy (5) COPD, moderate: Oxygenating well on room air Continue bronchodilators Continue montelukast Continue outpatient follow-up Thank you for including us in the care of this patient. We will continue to follow. Possibility of bronchoscopy on Monday Please refer to Dr. Morris's addendum for any further recommendations. Admission and Anticipated Discharge Date Admission Date: September 18, 2019 Supervising Physician Co-Signing Physician Notes I saw and evaluated the patient with Eze lloyd, and agree with findings and p jazmine as documented in the note. Patient seen and examined at bedside. No acute distress, no adverse events overnight. Videofluoroscopy did show aspiration. I am not sure if aspiration is playing a role in the collapse of the left upper lobe because that is very difficult to achieve even with aspiration. Today will be secondary that the patient is off apixaban. Patient does have collapse of the left upper lobe. CAT scan from July 2019 as well as March 2019 was reviewed. Patient had right lower lobe pneumonia in July 2019 but has similar presentation of left upper lobe collapse in March 2019. Significant change from July to now on the CAT scan kind of goes against it being a mass and more towards collapse. If the patient is still in the hospital on Monday plan will be to [facility] Monday. Subjective Attending: Dr. Morris There is a 79-year-old male that was admitted on 09/18/[address] with shortness of [address]. CT scan showed mucous plugging of the bronchi as well as left lower lobe collapse. Patient had a video swallow study today which showed aspiration of thin liquids. Patient does chew tobacco-less snuff and most likely is aspirating some of the juice from this product. Since admission, the patient is feeling much better. He denies any shortness of breath. He is oxygenating well on room air at this time. Examination reveals some slight bibasilar crackles but no other adventitious sounds. The patient denies any fever, chills, sweats, rigors. He feels as though he is back at baseline. Apixaban has been held and patient currently is on a weight-based heparin protocol for his paroxysmal atrial fibrillation. The patiently currently offers no acute complaints. Review of Systems Review of Systems: All systems reviewed & are unremarkable except as noted in HPI & below Physical Exam Physical Exam: GENERAL : No acute distress EYES: No icterus, gaze conjugate NOSE: No evidence of epistaxis MOUTH: No lesions or candidiasis NECK: Supple LUNGS: Very faint bibasilar crackles. Otherwise, CTA B/L, no wheezes, or rhonchi HEART: Regular, rate controlled ABDOMEN: Soft, NT, ND, BS Present EXTREMITIES: No LE edema, pedal pulses intact NEURO: A&OX3 Results & Data Results & Data ([facility]) Vital Signs (Past 12 Hours) Vital Signs Temp Pulse Resp BP Pulse Ox 09/20/19 06:59 36.9 C 87 23 147/63 H 92 Laboratory Results INR 1.1 (0.9-1.1) 09/18/19 18:17 09/20/19 06:37 09/20/19 06:37 Diagnostic Findings FL video swallow CLINICAL HISTORY: 79 years-old Male with r/o aspiration. Dysphagia with concern for aspiration TECHNIQUE: Video fluoroscopic evaluation of swallowing was performed in the AP and lateral projections by the speech pathology staff. The patient is fed nectar-thick and thin liquid barium, a barium coated wafer, and barium pudding. FLUOROSCOPY TIME: 1.8 minutes.. COMPARISON STUDY: Swallow study 07/12/2019. FINDINGS: Silent aspiration with thin liquid barium esophageal dysmotility noted with nectar thick consistency. Moderate distal esophageal dysmotility.. Degenerative changes of the cervical spine incidentally noted. IMPRESSION: 1. Aspiration with thin liquid barium. 2. Please see the speech pathologist report for detailed findings and recommendations. ACT 112: Negative or not required by law. Electronically signed by: Ruiz Deluca M.D. 09/20/2019 10:[address] chest wo con CLINICAL HISTORY: Pneumonia. History of lung collapse. COMPARISON STUDY: 07/11/2019 CT DOSE: 250.14 mGy.cm TECHNIQUE: CT of the thorax was performed from the thoracic inlet to the lung bases. Images are reviewed in the axial, sagittal, and coronal planes. IV contrast was not administered for this examination. A dose lowering technique was utilized adhering to the principles of ALARA. FINDINGS: Thyroid: Imaged portions of the thyroid gland are normal in appearance. Thoracic aorta: The ascending thoracic aorta measures 36 mm. Heart: The heart is mildly enlarged with coronary artery calcifications. Lungs and pleural spaces: There is a small left pleural effusion and trace right pleural effusion. There is left upper lobe collapse with narrowing of the left upper lobe bronchus. There is also narrowing of the left lower lobe bronchus. There is pulmonary edema. There is left apical septal edema. There is multifocal bronchial wall thickening and mucous plugging. There are right lower lobe groundglass opacities, pneumonia versus atelectasis. Evaluation is limited due to respiratory motion artifact Mediastinum: There is a gas collection which appears to be located within the left anterior superior mediastinum. There are borderline enlarged mediastinal lymph nodes. Larisa: Hilar structures are difficult to assess without contrast. It is difficult to exclude a left hilar mass although none was visualized on the prior July 11, 2019 CT scan. Axilla: Clear. Upper abdomen: There are bilateral adrenal nodules measuring 2 cm on the right and 1 cm on the left. These are of low attenuation likely represent adenomas. Skeletal structures: There are no lytic or blastic osseous lesions. There is a stable 27 mm subcutaneous anterior chest wall nodule, possibly representing a sebaceous cyst IMPRESSION: 1. Examination limited secondary to respiratory motion artifact and lack of intravenous contrast administration 2. Unusual anterior pneumomediastinum of uncertain etiology 3. Left upper lobe collapse 4. Borderline enlarged mediastinal lymph nodes 5. Small left pleural effusion and trace right pleural effusion 6. Right lower lobe groundglass opacities, pneumonia versus atelectasis 7. Left apical septal edema 8. Multifocal bronchial wall thickening and mucous plugging 9. Narrowing of the left upper lobe and left lower lobe bronchus. While a mass cannot be excluded, this may be secondary to aspiration/mucous plugging as no mass was visualized on the July 2019 study. 10. Bilateral adrenal gland nodules, adenomas are favored 11. Stable 27 mm subcutaneous anterior chest wall mass possibly representing a sebaceous cyst ACT 112: Negative or not required by law. Electronically signed by: Braulio Vazquez M.D. 09/18/2019 7:45 PM PG Care Time/CCT Total # of Minutes Spent Total Time Spent with Patient: Total time spent is greater than 50% in coordination of care (as documented) at patient's floor/unit and/or counseling patient:25 minutes Coding [place] [address] Subseq Hosp Care Lvl 2 Patient Type Established Diagnoses Left upper lobe pneumonia J18.9 Pneumonia type: due to unspecified organism Pneumomediastinum J98.2 Chronic respiratory failure J96.10 Paroxysmal atrial fibrillation I48.0 COPD, moderate J44.9
[2019-09-20] MEDS: dilTIAZem HCL 240 MG CAPCR PO SCH (20:53)
[2019-09-20] MEDS: MONTELUKAST SODIUM 10 MG TABLET PO SCH (20:54)
[2019-09-20] MEDS: lisinopriL 20 MG TAB PO SCH (20:55)
[2019-09-20 22:14] LABS: Partial Thromboplastin Ratio 1.6; Partial Thromboplastin Time 43.9 Seconds (21.0-31.0)
[2019-09-20] MEDS ORDERED: HEPARIN IV BOLUS 3,000 UNITS in SYRINGE 0 ML IV ONE (22:44)
--- NOTE | 2019-09-20 23:13 | Billing Data ---
Date of Service September 20, 2019 Coding Level of Care Code 42857 Initial Inpt Care Lvl 3
[2019-09-21] MEDS ORDERED: VANCOMYCIN TROUGH ONE (03:30)
[2019-09-21] MEDS: PIPERACILLIN/TAZOBACTAM 3.375 GM in DEXTROSE 5% 100 ML IV SCH ×2 (04:57→13:53)
[2019-09-21 05:41] LABS: Hematocrit (blood only) 39.8 % (42-52); Hemoglobin 12.8 g/dL (14.0-18.0); Mean Corpuscular Hemoglobin 25.5 pg (25-34); Mean Corpuscular Hgb Conc 32.2 g/dL (32-36); Mean Corpuscular Volume 79.4 fL (80-100); Mean Platelet Volume 9.5 fL (7.4-10.4); Platelet Count 261 K/uL (130-400); RDW Coefficient of Variation 20.2 % (11.5-14.5); RDW Standard Deviation 58.6 fL (36.4-46.3); Red Blood Count 5.01 M/uL (4.7-6.1); White Blood Count 13.83 K/uL (4.8-10.8)
[2019-09-21] MEDS: LEVOTHYROXINE SODIUM 25 MCG TABLET PO SCH (05:42)
[2019-09-21 06:07] LABS: BUN Creatinine Ratio 9.7 (10-20); Calcium 8.4 mg/dl (8.5-10.1); Creatinine Clr Calc Pharmacy 73.3 ml/min; Est GFR (African American) 100.7; Est GFR (Non-African American) 86.9; Magnesium 1.7 mg/dl (1.8-2.4); Phosphorus 4.1 mg/dl (2.5-4.9); Potassium 3.7 mmol/L (3.5-5.1)
[2019-09-21 06:15] LABS: Partial Thromboplastin Time 54.7 Seconds (21.0-31.0)
[2019-09-21] MEDS: INSULIN ASPART 100 UNITS/ML 3 ML PEN SC SCH ×4 (08:11→21:07)
[2019-09-21] MEDS: UMECLIDINIUM/VILANTEROL 62.5/25MCG 7 PUFFS/INHALER INH SCH (08:12)
[2019-09-21] MEDS: FLUTICASONE FUROATE 100MCG 14 PUFFS/INHALER INH SCH (08:13)
[2019-09-21] MEDS: guaiFENesin 600 MG TABCR PO SCH ×2 (08:13→20:25)
[2019-09-21] MEDS: ASPIRIN 81 MG ECTAB PO SCH (08:14)
[2019-09-21] MEDS: METOPROLOL TARTRATE 100 MG TAB PO SCH ×2 (08:14→20:24)
[2019-09-21] MEDS: CYANOCOBALAMIN 500 MCG TABLET (VITAMIN B-12) PO SCH (08:14)
[2019-09-21] MEDS: levETIRAcetam 500 MG TAB PO SCH ×2 (08:14→20:20)
[2019-09-21] MEDS: SERTRALINE HCL 100 MG TABLET PO SCH (08:15)
[2019-09-21] MEDS: CALCIUM 600MG + VIT D 400 IU TAB PO SCH (08:15)
[2019-09-21] MEDS: ATORVASTATIN 40 MG TAB PO SCH (08:15)
--- NOTE | 2019-09-21 12:13 | Pulmonology Progress Note ---
Date of Service September 21, 2019 Assessment & Plan (1) Pneumonia: CT chest 09/18/2019: Left upper lobe(lingula region) collapsed, the left main bronchus does seem to have some debris. With small left-sided pleural effusion. There is bronchial wall thickening appreciated bilaterally. Thickening of the left upper lobe pleura as well as interstitial thickening appreciated in the left upper lobe. Centrilobular emphysema. No significant mediastinal lymphadenopathy There is air appreciated anteriorly to the heart likely pneumomediastinum. No significant mediastinal adenopathy --Left upper lobe pneumonia Unclear if the patient has any obstructive lesion causing it. Given leukocytosis I would continue with antibiotics Follow-up septic work-up, ESR: 88, CRP: 3.82 Swallow eval did show evidence of aspiration Patient did have similar episode in March 2019 where he had collapse of the left upper lobe. He was bronched by Dr. Lynn which showed a mucous plug as per his procedure note. --Spontaneous pneumomediastinum Etiology is not clear Patient has chronic cough but he denies any increase in intensity of cough. 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 Lynn in 2019 --A. fib Patient is on apixaban at home Last dose was 09/18/2019 Plan: Add flutter valve, incentive spirometry and continue with guaifenesin Apixaban has been hold since 09/18/2019, patient is on heparin drip currently. We will repeat a chest x-ray tomorrow. If the left upper consolidation still persists plan will be to do a bronchoscopy with EBUS on Monday. Case was discussed with Dr. Campoverde Tried calling patient's x2 at [phone]. Left a voicemail. Please note the above document was generated using voice recognition software. It may contain grammatical, syntax or spelling errors. Laterality: left Lung location: upper lobe of lung Pneumonia t ype: due to unspecified organism Qualified Code(s): J18.9 - Pneumonia, unspecified organism (2) Pneumomediastinum: (3) Paroxysmal atrial fibrillation: Admission and Anticipated Discharge Date Admission Date: September 18, 2019 Subjective Patient seen and examined at bedside. No acute distress, no adverse events overnight. Patient was laying in bed at the time of examination. Denies any chest pain, no shortness of breath, is bringing up little bit of phlegm. Denies any hemoptysis. Eating well. Videofluoroscopy did show aspiration. Review of Systems Review of Systems: All systems reviewed & are unremarkable except as noted in HPI & below Physical Exam Physical Exam: Constitutional: No acute distress HEENT: EOMI, PERRLA Respiratory system: Decreased air entry bilaterally, positive crackles left lower lobe, no wheeze, no rhonchi CVS: S1-S2 positive, no murmurs or gallops Abdomen: Soft, nontender, nondistended, positive bowel sounds x4 Extremities: +2 pulses bilaterally radialis/ dorsalis pedis, no cyanosis, no edema, no clubbing Neuro: Awake alert oriented Psych: Normal mood and affect G/U: None Zhao Skin: no rashes, warm and dry Lymphatic: no cervical or axillary lymphadenopathy Results & Data Results & Data ([facility]) Vital Signs (Past 12 Hours) Vital Signs Temp Pulse Resp BP Pulse Ox 09/21/19 07:13 36.6 C 76 20 134/71 94 09/21/19 05:23 09/21/19 05:23 PG Care Time/CCT Total # of Minutes Spent Total Time Spent with Patient: Total time spent is greater than 50% in coordination of care (as documented) at patient's floor/unit and/or counseling patient: Coding Level of Care Code 95341 Subseq Hosp Care Lvl 3 Diagnoses Pneumonia J18.9 Laterality: left Lung location: upper lobe of lung Pneumonia type: due to unspecified organism Pneumomediastinum J98.2 Paroxysmal atrial fibrillation I48.0
--- NOTE | 2019-09-21 16:54 | Hospitalist Progress Note ---
Date of Service September 21, 2019 Assessment & Plan (1) Left upper lobe pneumonia: Suspected post obstructive pneumonia based on presentation. MRSA nose swab negative. Stopped vancomycin. De-escalate antibiotics to Unasyn given history of aspiration and unlikely pseudomonas Discussed with pulmonology - Plan bronchoscopy on Monday is CXR not improved in AM Guaifenesin, incentive spirometry, flutter valve Left upper lobe collapse previously in March after wedge resection that required bronchoscopy on post op day #4 to remove mucus plug. Collapse appears similar to this with resolution in July therefore suggestive of recurrent mucus plug. (2) Oropharyngeal dysphagia: Moderate - SLT evaluation on 09/19 showed aspiration of thin liquids and significant reflux -> Worse since last test in July. 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 No acute concerns or complaints. Appears much less confused than when I saw him 2 days previously. No shortness of breath. Wet sounding cough present but patient reports he is able to cough this up well. No chest pain, fever or chills. Updated his over the phone. All questions answered. No current concerns. Review of Systems Review of Systems: All systems reviewed & are unremarkable except as noted in HPI & below Physical Exam Constitutional: well developed and well nourished; no acute distress Eyes: + anicteric sclerae; normal pupil size Neck: normal visual inspection Respiratory: normal respiratory effort and able to speak in complete sentences; no respiratory distress, no labored breathing and does not use accessory muscles Auscultation: + diminished lung sounds (left sided); no crackles, no rales, no rhonchi and no wheezes Cardiovascular: Rate/Rhythm: regular rate and regular rhythm Heart Sounds: no murmur Extremities: normal capillary refill Gastrointestinal (Abdomen): normal bowel sounds, soft, nontender, no hepatosplenomegaly Musculoskeletal: no cyanosis or clubbing, extremities motor strength 5/5 Skin: no rashes, warm and dry Neurologic: moves all extremities and awake; not confused Psychiatric: Orientation: alert Results & Data Results & Data ([facility]) Vital Signs (Past 12 Hours) Vital Signs Temp Pulse Resp BP Pulse Ox 09/21/19 15:47 36.3 C L 88 16 134/80 94 09/21/19 07:13 36.6 C 76 20 134/71 94 PG Care Time/CCT Total # of Minutes Spent Total Time Spent with Patient: Total time spent is greater than 50% in coordination of care (as documented) at patient's floor/unit and/or counseling patient: Coding Level of Care Code 97923 Subseq Hosp Care Lvl 2 Diagnoses Left upper lobe pneumonia J18.9 Pneumonia type: due to unspecified organism Oropharyngeal dysphagia R13.12 SOB (shortness of breath) R06.02 Pneumomediastinum J98.2 Hypomagnesemia E83.42 Diabetes mellitus E11.9 Diabetes mellitus type: type 2 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
[2019-09-21] MEDS: AMPICILLIN/SULBACTAM SOD 3,000 MG in 0.9 % SODIUM CHLORIDE 100 ML IV SCH (17:23)
[2019-09-21] MEDS: dilTIAZem HCL 240 MG CAPCR PO SCH (20:20)
[2019-09-21] MEDS: lisinopriL 20 MG TAB PO SCH (20:26)
[2019-09-21] MEDS: MONTELUKAST SODIUM 10 MG TABLET PO SCH (20:26)
[2019-09-21] MEDS: MAGNESIUM OXIDE 400 MG TAB PO SCH (21:06)
[2019-09-21] MEDS: INSULIN GLARGINE SOLOSTAR 100 UNITS/ML 3 ML PEN SC SCH (21:06)
[2019-09-21] MEDS: HEPARIN SODIUM/DEXTROSE 25,000 UNITS/500 ML BAG IV SCH (22:03)
[2019-09-22] MEDS: AMPICILLIN/SULBACTAM SOD 3,000 MG in 0.9 % SODIUM CHLORIDE 100 ML IV SCH ×5 (00:04→23:50)
[2019-09-22] MEDS: LEVOTHYROXINE SODIUM 25 MCG TABLET PO SCH (06:00)
--- NOTE | 2019-09-22 07:37 | XRay Report ---
XR chest 2V PA/lateral HISTORY: 79 years-old Male Hypoxia, Left mass, Collapsed lung acute hypoxia with left lung mass COMPARISON: CT chest 09/18/2019, chest radiograph 07/13/2019 TECHNIQUE: PA and lateral views of the chest FINDINGS: Cardiac silhouette is enlarged. Coronary artery stent grafts. Calcified plaque of the thoracic aortic arch. Patchy reticular opacities are again noted throughout the mid and lower lung jefferson of the rig ht lung and also throughout the left lung. Left upper lobe collapse with small left pleural effusion. The previously described anterior left pneumothorax is suggested at the left lung base. Trace right pleural effusion. Degenerative changes of the shoulders and spine. Calcified plaque the thoracic aort ic arch. IMPRESSION: 1. Left upper lobe collapse redemonstrated along with small left pleural effusion. 2. Tiny left-sided pneumothorax is better appreciated on comparison CT. 3. Patchy bilateral reticular opacities are suggestive of infectious or inflammatory pneumonitis. 4. Trace right pleural effusion. ACT 112: Negative or not required by law. The above report was generated using voice recognition software. It may contain grammatical, syntax o r spelling errors. Electronically signed by: Ruiz Deluca M.D. 09/22/2019 7:36 AM
[2019-09-22] MEDS: CALCIUM 600MG + VIT D 400 IU TAB PO SCH (08:03)
[2019-09-22] MEDS: UMECLIDINIUM/VILANTEROL 62.5/25MCG 7 PUFFS/INHALER INH SCH (08:03)
[2019-09-22] MEDS: ASPIRIN 81 MG ECTAB PO SCH (08:03)
[2019-09-22] MEDS: MAGNESIUM OXIDE 400 MG TAB PO SCH ×2 (08:03→20:20)
[2019-09-22] MEDS: CYANOCOBALAMIN 500 MCG TABLET (VITAMIN B-12) PO SCH (08:03)
[2019-09-22] MEDS: levETIRAcetam 500 MG TAB PO SCH ×2 (08:03→20:48)
[2019-09-22] MEDS: METOPROLOL TARTRATE 100 MG TAB PO SCH ×2 (08:03→20:17)
[2019-09-22] MEDS: ATORVASTATIN 40 MG TAB PO SCH (08:03)
[2019-09-22] MEDS: guaiFENesin 600 MG TABCR PO SCH ×2 (08:03→20:48)
[2019-09-22] MEDS: SERTRALINE HCL 100 MG TABLET PO SCH (08:03)
[2019-09-22] MEDS: FLUTICASONE FUROATE 100MCG 14 PUFFS/INHALER INH SCH (08:04)
[2019-09-22] MEDS: INSULIN ASPART 100 UNITS/ML 3 ML PEN SC SCH ×4 (08:04→20:50)
[2019-09-22 08:27] LABS: Partial Thromboplastin Ratio 1.4; Partial Thromboplastin Time 40.2 Seconds (21.0-31.0)
[2019-09-22 08:47] LABS: Ferritin 51.9 ng/ml (8-388)
[2019-09-22] MEDS ORDERED: HEPARIN IV BOLUS 4,500 UNITS in SYRINGE 0 ML IV ONE (09:00)
[2019-09-22] MEDS: FERROUS SULFATE 325 MG TAB PO SCH (10:00)
--- NOTE | 2019-09-22 12:23 | Pulmonology Progress Note ---
Date of Service September 22, 2019 Assessment & Plan (1) Pneumonia: CT chest 09/18/2019: Left upper lobe(lingula region) collapsed, the left main bronchus does seem to have some debris. With small left-sided pleural effusion. There is bronchial wall thickening appreciated bilaterally. Thickening of the left upper lobe pleura as well as interstitial thickening appreciated in the left upper lobe. Centrilobular emphysema. No significant mediastinal lymphadenopathy There is air appreciated anteriorly to the heart likely pneumomediastinum. No significant mediastinal adenopathy --Left upper lobe pneumonia Unclear if the patient has any obstructive lesion causing it. Given leukocytosis I would continue with antibiotics Follow-up septic work-up, ESR: 88, CRP: 3.82 Swallow eval did show evidence of aspiration Patient did have similar episode in March 2019 where he had collapse of the left upper lobe. He was bronched by Dr. Lynn which showed a mucous plug as per his procedure note. --Spontaneous pneumomediastinum Etiology is not clear Patient has chronic cough but he denies any increase in intensity of cough. 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 Lynn in 2019 --A. lily Patient is on apixaban at home Last dose was 09/18/2019 Plan: Chest x-ray from today still shows left-sided volume loss, I personally do not see any clear signs of pneumomediastinum or pneumothorax. Apixaban has been hold since 09/18/2019, patient is on heparin drip currently. N.p.o. post midnight, hold heparin drip at 3 AM 09/23/2019 for EBUS on Monday. Case discussed with patient's on the phone. She understands and is agreeable to go ahead with the procedure. Risk and benefits of the procedure were explained to patient's in depth. All questions and queries were answered. Please note the above document was generated using voice recognition software. It may contain grammatical, syntax or spelling errors. Laterality: left Lung location: upper lobe of lung Pneumonia type: due to unspecified organism Qualified Code(s): J18.9 - Pneumonia, unspecified organism Admission and Anticipated Discharge Date Admission Date: September 18, 2019 Subjective Patient seen and examined at bedside. No acute distress, no adverse events overnight. Denies any chest pain, no shortness of breath, no headache, no nausea, no vomiting. Good appetite. Denies any dysphagia or odynophagia. No headache, no blurry vision. Review of Systems Review of Systems: All systems reviewed & are unremarkable except as noted in HPI & below Physical Exam Physical Exam: Constitutional: No acute distress HEENT: EOMI, PERRLA Respiratory system: Decreased air entry bilaterally, positive crackles left lower lobe, no wheeze, no rhonchi CVS: S1-S2 positive, no murmurs or gallops Abdomen: Soft, nontender, nondistended, positive bowel sounds x4 Extremities: +2 pulses bilaterally radialis/ dorsalis pedis, no cyanosis, no edema, no clubbing Neuro: Awake alert oriented Psych: Normal mood and affect G/U: No Zhao Skin: no rashes, warm and dry Lymphatic: no cervical or axillary lymphadenopathy Results & Data Results & Data ([facility]) Vital Signs (Past 12 Hours) Vital Signs Temp Pulse Resp BP Pulse Ox 09/22/19 11:07 36.7 C 54 L 20 104/64 90 09/22/19 07:36 36.7 C 60 19 130/76 93 09/21/19 05:23 09/21/19 05:23 PG Care Time/CCT Total # of Minutes Spent Total Time Spent with Patient: Total time spent is greater than 50% in co ordination of care (as documented) at patient's floor/unit and/or counseling patient: Coding Level of Care Code 26497 Subseq Hosp Care Lvl 2 Diagnoses Pneumonia J18.9 Laterality: left Lung location: upper lobe of lung Pneumonia type: due to unspecified organism
[2019-09-22 15:53] LABS: Partial Thromboplastin Ratio 2.3
[2019-09-22 15:54] LABS: Partial Thromboplastin Time 63.8 Seconds (21.0-31.0)
[2019-09-22] MEDS: HEPARIN SODIUM/DEXTROSE 25,000 UNITS/500 ML BAG IV SCH (18:44)
--- NOTE | 2019-09-22 19:27 | Hospitalist Progress Note ---
Date of Service September 22, 2019 Assessment & Plan (1) Left upper lobe pneumonia: Suspected post obstructive pneumonia based on presentation. MRSA nose swab negative. Stopped vancomycin. De-escalated antibiotics to Unasyn given history of aspiration and unlikely pseudomonas, will continue to trend WBC on this. Discussed with pulmonology - Plan bronchoscopy on Monday as CXR shows continued BHARTI collapse Guaifenesin, incentive spirometry, flutter valve Left upper lobe collapse previously in March after wedge resection that required bronchoscopy on post op day #4 to remove mucus plug. Collapse appears similar to this with resolution in July therefore suggestive of recurrent mucus plug. (2) Oropharyngeal dysphagia: Moderate - SLT evaluation on 09/19 showed aspiration of thin liquids and significant reflux -> Worse since last test in July. 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 Now resolved at least at rest. (4) Pneumomediastinum: Aim O2 close to 100% as per pulm recommendations (5) Hypomagnesemia: Mg Ox 400mg BID Repeat with Monday labs (6) Diabetes mellitus: HbA1C 6.5 Insulin sliding scale: switch to correction only tomorrow after lantus given tonight Lantus 10 units HS T2DM diet Admission and Anticipated Discharge Date Admission Date: September 18, 2019 Subjective Patient doing well. No acute concerns or complaints. He reports cough ongoing but able to get up phlegm without an issue. No chest pain, shortness of breath, fever or chills. Updated his over the phone. All questions answered. No current concerns. Review of Systems Review of Systems: All systems reviewed & are unremarkable except as noted in HPI & below Physical Exam Constitutional: well developed and well nourished; no acute distress Eyes: + anicteric sclerae; normal pupil size ENMT: external ear and nose normal, oropharynx normal Neck: trachea midline, no thyromegaly normal visual inspection Respiratory: normal respiratory effort and able to speak in complete sentences; no respiratory distress, no labored breathing and does not use accessory muscles Auscultation: + diminished lung sounds (left sided); no crackles, no rales, no rhonchi and no wheezes Cardiovascular: Rate/Rhythm: regular rate and regular rhythm Heart Sounds: no murmur Extremities: normal capillary refill and + pedal edema (1+ b/l to shins); no calf tenderness Gastrointestinal (Abdomen): normal bowel sounds, soft, nontender, no hepatosplenomegaly Musculoskeletal: no cyanosis or clubbing, extremities motor strength 5/5 Skin: no rashes, warm and dry Neurologic: moves all extremities and awake; not confused Psychiatric: Orientation: alert and oriented to person; + not oriented to place and + not oriented to time Results & Data Results & Data ([facility]) Vital Signs (Past 12 Hours) Vital Signs Temp Pulse Resp BP Pulse Ox 09/22/19 17:13 50 L 17 106/59 L 90 09/22/19 11:07 36.7 C 54 L 20 104/64 90 09/22/19 07:36 36.7 C 60 19 130/76 93 PG Care Time/CCT Total # of Minutes Spent Total Time Spent with Patient: Total time spent is greater than 50% in coordination of care (as documented) at patient's floor/unit and/or counseling patient: Coding Level of Care Code 27829 Subseq Hosp Care Lvl 2 Diagnoses Left upper lobe pneumonia J18.9 Pneumonia type: due to unspecified organism Oropharyngeal dysphagia R13.12 SOB (shortness of breath) R06.02 Pneumomediastinum J98.2 Hypomagnesemia E83.42 Diabetes mellitus E11.9 Diabetes mellitus complication status: without complication 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
[2019-09-22] MEDS: dilTIAZem HCL 240 MG CAPCR PO SCH (20:21)
[2019-09-22] MEDS: MONTELUKAST SODIUM 10 MG TABLET PO SCH (20:21)
[2019-09-22] MEDS: lisinopriL 20 MG TAB PO SCH (20:49)
[2019-09-22] MEDS: INSULIN GLARGINE SOLOSTAR 100 UNITS/ML 3 ML PEN SC SCH (20:51)
[2019-09-22] MEDS: SODIUM CHLORIDE 0.9% 500 ML IV SCH (23:51)
[2019-09-23] MEDS: AMPICILLIN/SULBACTAM SOD 3,000 MG in 0.9 % SODIUM CHLORIDE 100 ML IV SCH ×4 (05:54→23:48)
[2019-09-23] MEDS: LEVOTHYROXINE SODIUM 25 MCG TABLET PO SCH (05:56)
[2019-09-23] MEDS: SODIUM CHLORIDE 0.9% 500 ML IV SCH (07:14)
[2019-09-23] MEDS: UMECLIDINIUM/VILANTEROL 62.5/25MCG 7 PUFFS/INHALER INH SCH (07:52)
[2019-09-23] MEDS: FLUTICASONE FUROATE 100MCG 14 PUFFS/INHALER INH SCH (07:53)
[2019-09-23] MEDS: INSULIN ASPART 100 UNITS/ML 3 ML PEN SC SCH ×4 (07:53→20:04)
[2019-09-23] MEDS ORDERED: OXYMETAZOLINE 0.05% 30 ML BTL ONE (10:22)
[2019-09-23] MEDS ORDERED: LIDOCAINE HCL VISCOUS SOLN 2% 15 ML UDC TOP ONE (10:22)
[2019-09-23] MEDS ORDERED: LIDOCAINE 4% INH SOLN 4 ML BTL NAE ONE (10:22)
--- NOTE | 2019-09-23 10:30 | Pre Anesthesia Assessment ---
Date of Service September 23, 2019 Pre Sedation Assessment Vital Signs Temp Pulse Pulse Resp BP Pulse Ox 09/23/19 10:25 66 22 143/77 H 09/23/19 10:23 96 H 21 152/88 H 09/23/19 10:18 76 21 159/83 H 09/23/19 07:11 97.9 F 64 20 166/72 H 90 09/23/19 03:34 98.2 F 78 18 131/71 90 09/22/19 23:54 97.7 F 54 L 21 151/64 H 96 09/22/19 19:52 97.7 F 52 L 18 126/67 92 09/22/19 17:13 50 L 17 106/59 L 90 09/22/19 11:07 98.1 F 54 L 20 104/64 90 Pre-Sedation Airway Assessment Smoking Status: Former smoker Hx Sleep Apnea: No Short, Thick Neck: Yes Thyromental Distance: > or= 3.5 Finger Breadths Oral Cavity: + WNL Mallampati Class: II ASA: ASA3 NPO Status Date of Last Intake of Fluids: 09/22/19 Time of Last Intake of Fluids: 21:00 Date of Last Intake of Solid Food: 09/22/19 Time of Last Intake of Solid Foods: 17:00 Notes The planned sedation has been discussed with the patient. Informed Consent was obtained. I have identified the patient, determined the appropriateness of sedation and have assessed the patient immediately prior to the procedure. All medicine(s) and interventions are by my order.
--- NOTE | 2019-09-23 10:30 | History & Physical Bridge Note ---
Date of Service September 23, 2019 History & Physical Bridge Note I have examined the patient, reviewed the History & Physical and in the interval since the performance of the History & Physical I have noted the following changes of clinical significance: no changes noted
[2019-09-23] MEDS ORDERED: LIDOCAINE HCL 2% (LOCAL) INJ 50 ML VIAL INFIL STA (11:16)
[2019-09-23] MEDS ORDERED: MIDAZOLAM HCL 1 MG/ML 2ML VIAL IV STA (11:16)
[2019-09-23] MEDS ORDERED: fentaNYL citrate 100 MCG/2 ML VIAL IV ONE (11:16)
--- NOTE | 2019-09-23 11:23 | Procedure Note ---
Procedure Note Date of Service September 23, 2019 Note Procedural sedation began at 10:36 AM and ended at 11:15 AM. PREOPERATIVE DIAGNOSIS: Left upper lobe collapse with airway narrowing POSTOPERATIVE DIAGNOSIS: Left upper lobe collapse with airway narrowing PROCEDURE PERFORMED: Flexible fiberoptic bronchoscopy with bronchoalveolar lavage, transbronchial biopsies, brushings COMPLICATIONS: None. INDICATION: Evaluate left upper lobe collapse PROCEDURE: After obtaining an informed consent, the patient was brought to the Bronchoscopy Suite. The patient had appropriate oxygen, blood pressure, heart rate, and respiratory rate monitoring applied and monitored continuously throughout the procedure. Supplemental oxygen via nasal cannula as per nursing records was applied to the nasopharynx with adequate saturations achieved. Topical anesthesia with nebulized 1% lidocaine was achieved. Subsequent to this, the patient was premedicated with 1 mg of midazolam and 125 Mcg of fentanyl. The oropharynx and larynx were well visualized and showed mild erythema with evidence of reflux noted. There was normal vocal cord motion without masses or lesions. Additional topical anesthesia with 1% lidocaine was applied to the trachea and mike. The trachea appeared normal and obviously large amounts of white thick secretions emanating from the left mainstem bronchus.The bronchoscope was then advanced through the miek, which was sharp. The scope was then advanced into the right main stem and each segment, subsegement in the right upper lobe, right middle lobe and right lower lobe was visualized. There was minimal secretions noted on the right. There were no other findings including evidence of mass, anatomic distortions, or hemorrhage. The bronchoscope was subsequently withdrawn and advanced into the left mainstem. Again, each segment and subsegment was well visualized. No specific masses or other lesions were identified throughout the tracheobronchial tree on the left. There was thick and large amounts of white secretions noted. The bronchoscope was then wedged in the left upper lobe and bronchoalveolar lavage samples were obtained. 120 ml of saline was instilled and 20 ml of fluid was aspirated back. I did her general washing the left upper lobe. We also did a Cytobrush of the left upper lobe as there were small sessile appearing nodules emanating from the left upper lobe just proximal to the takeoff. There is also very obvious distortion and narrowing of the left upper lobe apical posterior segment and at the takeoff towards the left lower lobe. I did several biopsies of the abnormality seen in the left lower lobe takeoff. We also did microscopy brushings of the left upper lobe. There was some significant oozing and bleeding noted that was controlled with saline. The bronchoscope was then withdrawn. The patient tolerated the procedure well without evidence of desaturation or complications. Bronchoalveolar lavage samples were sent for cell count, Gram stain and bacterial culture, AFB culture and smear, fungal culture and smear and cytology. A Cytobrush and a Microbrush was also performed of the left upper lobe. Transbronchial biopsies were sent for tissue culture (bacteria, AFB and fungal) and pathology. Recommendations: Follow-up for left upper lobe samples, chest x-ray and continue pulmonary toilet with percussive therapy aimed towards the left upper lobe. Patient needs to have aspiration precautions. Coding CPT Codes Pulmonary/Thoracic - Pulmonary and Thoracic: 62694 Dx bronchoscopy/BAL ([id number]) Pulmonary/Thoracic - Pulmonary and Thoracic: 48125 Bronchoscopy, clear airways ([id number]) Pulmonary/Thoracic - Pulmonary and Thoracic: 86737 Dx bronchoscopy/brush ([id number]) Pulmonary/Thoracic - Pulmonary and Thoracic: 06979 Bronchoscopy w bronchial or endobronchial bx ([id number]) Sedation/Anesthesia - Sedation/Anesthesia: 50929 Mod Sedation by the same physician; Ea [id number] Minutes ([id number]) [facility] Procedure Codes (Charges) Pulmonary/Thoracic Procedure 1: Pulmonary and Thoracic: 42284 Dx bronchoscopy/BAL Procedure 2: Pulmonary and Thoracic: 72110 Bronchoscopy, clear airways Procedure 3: Pulmonary and Thoracic: 63801 Dx bronchoscopy/brush Procedure 4: Pulmonary and Thoracic: 73277 Bronchoscopy w bronchial or endobronchial bx Sedation/Anesthesia Procedure 1: Sedation/Anesthesia: 84630 Mod Sedation by the same physician; Ea [id number] Minutes Total Sedation Time (minutes): 39
--- NOTE | 2019-09-23 11:33 | Post Anesthesia Assessment ---
Date of Service September 23, 2019 Post Sedation Assessment Vital Signs Temp Pulse Pulse Resp BP Pulse Ox 09/23/19 11:17 89 20 120/70 87 L 09/23/19 11:15 76 20 141/73 H 93 09/23/19 11:10 96 H 20 144/71 H 91 09/23/19 11:05 99 H 16 150/75 H 91 09/23/19 11:00 99 H 22 149/84 H 90 09/23/19 10:55 103 H 20 147/104 H 92 09/23/19 10:50 102 H 18 169/92 H 95 09/23/19 10:45 92 H 24 137/78 95 09/23/19 10:40 91 H 12 160/83 H 96 09/23/19 10:35 63 18 148/78 H 97 09/23/19 10:30 66 18 149/81 H 98 09/23/19 10:25 66 22 143/77 H 96 09/23/19 10:23 96 H 21 152/88 H 96 09/23/19 10:18 76 21 159/83 H 90 09/23/19 07:11 97.9 F 64 20 166/72 H 90 09/23/19 03:34 98.2 F 78 18 131/71 90 09/22/19 23:54 97.7 F 54 L 21 151/64 H 96 09/22/19 19:52 97.7 F 52 L 18 126/67 92 09/22/19 17:13 50 L 17 106/59 L 90 Recovery Score Activity: Moves 4 extremities Respiration: Deep Breath/Cough Circulation: +/-20% PreAnes Value Consciousness: Fully Awake Oxygen Saturation: O2 needed for >90% Post Anesthesia Score: 9 Discharge Sedation Level of Care: Fast Track Phase II Post Sedation Plan On clinical assessment, the patient appears to have tolerated the sedation without complications. Patient is recovering as anticipated. Patient will continue to be monitored by nursing and may be discharged when sedation discharge criteria are met per below protocol. Upon Completions of procedure up to 15 minutes continue every 5 minute vital signs and the P.A.R. score; then discharge to a Phase I or Fast Track to Phase II per the following guidelines: * Discharge Patient to appropriate Phase II area if PAR is 8 or greater or return to pre- procedure baseline. The post - procedure orders will be as directed. * If PAR score is less than 8 or not return to pre-procedure baseline then patient will follow Phase I monitoring till PAR is reached for Phase II. The Phase I may be done in procedure room or may call to secure a Phase I area. * If naloxone or flumazenil are used for reversal, hold in Phase I for continued monitoring from when last reversal dose was given for a minimum of 60 minutes or longer pending the nurse and/or physician discretion of patient condition before discharge to Phase II. Please call the Sedation Physician to re-evaluate and complete post-note for discharge to Phase II area. Do NOT discharge from procedure sedation or Phase 1 until post- sedation evaluation note is complete by procedure /sedation MD Sedation Discharge Instructions to be given to the patient at discharge to home.
--- NOTE | 2019-09-23 11:34 | XRay Report ---
XR chest 1V portable HISTORY: post bronch COMPARISON: Chest 09/22/2019. FINDINGS: No pneumothorax. The heart remains mildly enlarged. Stable volume loss within the left ruthie thorax. Prominence of the interstitial markings which may represent mild congestive change. Small lef t pleural effusion persists. Small left basilar densities remain unchanged. IMPRESSION: 1. No pneumothorax. 2. Slight progression of the interstitial thickening which may represent mild congestive change. 3. Stable volume loss within the left hemithorax and a small left pleural effusion. ACT 112: Negative or not required by law. Electronically signed by: Reagan Villanueva M.D. 09/23/2019 11:33 AM
[2019-09-23 13:16] LABS: Neutrophil Body Fluid Man 78 %
[2019-09-23 13:17] LABS: Eosinophil Body Fluid Man 1 %; Fluid Mono/Macrophage 6 %; Lymphocyte Body Fluid Man 15 %
[2019-09-23] MEDS: ASPIRIN 81 MG ECTAB PO SCH (14:21)
[2019-09-23] MEDS: METOPROLOL TARTRATE 100 MG TAB PO SCH ×2 (14:22→20:04)
[2019-09-23] MEDS: ATORVASTATIN 40 MG TAB PO SCH (14:22)
[2019-09-23] MEDS: MAGNESIUM OXIDE 400 MG TAB PO SCH ×2 (14:22→20:03)
[2019-09-23] MEDS: guaiFENesin 600 MG TABCR PO SCH ×2 (14:22→20:00)
[2019-09-23] MEDS: CYANOCOBALAMIN 500 MCG TABLET (VITAMIN B-12) PO SCH (14:23)
[2019-09-23] MEDS: CALCIUM 600MG + VIT D 400 IU TAB PO SCH (14:23)
[2019-09-23] MEDS: levETIRAcetam 500 MG TAB PO SCH ×2 (14:23→20:03)
[2019-09-23] MEDS: SERTRALINE HCL 100 MG TABLET PO SCH (14:23)
--- NOTE | 2019-09-23 14:49 | Hospitalist Progress Note ---
Date of Service September 23, 2019 Assessment & Plan (1) Left upper lobe pneumonia: Aspiration pneumonia suspected given video swallow results and previous history of BHARTI pneumonia/BHARTI collapse in 03/2019. Remains on unasyn. Today is day 5-6 of IV antibiotic therapy. s/p bronch today by Dr Rawls - copious secretions/plugs in the BHARTI bronchus. Cultures sent. Biopsies sent to r/o endobronchial tumor. Left upper lobe collapse also occurred in March 2019 after RLL wedge resection for harmatoma that required bronchoscopy on post op day #4 to remove mucus plug. (2) Oropharyngeal dysphagia: Video swallow test on 09/19 showed aspiration of thin liquids and significant esophageal dysmotility. [place] thick, slippery diet remains. Continue speech therapy. (3) Pneumomediastinum: Small, uncertain etiology. Continue NC O2 support. (4) Aspiration into respiratory tract: s/p bronch today. Continue flutter valve. Continue incentive spirometry. Add chest CT BID. Hold on resuming heparin today post-bronch due to considerable bleeding in the airway seen. 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: voiding w/o difficulty (8) Hypertension: continue home meds (9) Hypothyroidism (acquired): TSH 07/2019 was wnl cont synthroid as is (10) Atrial flutter: hold anticoagulation post-bronch resume in am cont BB cont CCB (11) Seizure disorder: no seizures while hospitalized continue melissa (12) DVT prophylaxis: bleeding seen during bronch today hold heparin drip / anticoagulation resume in am if stable from pulmonary standpoint updated 09/23/2019 by phone PT/OT kezia 09/21 - cleared for home w/ at discharge Admission and Anticipated Discharge Date Admission Date: September 18, 2019 Subjective saw the patient post-bronch he was getting ready to eat a meal he was resting comfortably no cough during the visit he overall reported feeling well with no dyspnea but did admit to weakness Review of Systems Constitutional: no fever and no chills Respiratory: + cough and + wheezing Cardiovascular: no chest pain Gastrointestinal: no abdominal pain Physical Exam Constitutional: no acute distress and no altered mental status ENMT: external ear and nose normal, oropharynx normal Respiratory: no respiratory distress Auscultation: + diminished lung sounds (BHARTI anterior and posterior) and + wheezes Cardiovascular: Rate/Rhythm: + irregularly irregular Heart Sounds: normal S1 and normal S2; no murmur Vessels: dorsalis pedis pulses present; no JVD Extremities: no edema Gastrointestinal (Abdomen): normal bowel sounds, soft, nontender, no hepatosplenomegaly Psychiatric: Orientation: alert, oriented to person and oriented to place Results & Data Results & Data ([facility]) Vital Signs (Past 12 Hours) Vital Signs Temp Pulse Pulse Resp BP Pulse Ox 09/23/19 12:13 36.7 C 68 16 137/74 90 09/23/19 11:43 36.7 C 71 16 126/74 90 09/23/19 11:17 89 20 120/70 87 L 09/23/19 11:15 76 20 141/73 H 93 09/23/19 11:10 96 H 20 144/71 H 91 09/23/19 11:05 99 H 16 150/75 H 91 09/23/19 11:00 99 H 22 149/84 H 90 09/23/19 10:55 103 H 20 147/104 H 92 09/23/19 10:50 102 H 18 169/92 H 95 09/23/19 10:45 92 H 24 137/78 95 09/23/19 10:40 91 H 12 160/83 H 96 09/23/19 10:35 63 18 148/78 H 97 09/23/19 10:30 66 18 149/81 H 98 09/23/19 10:25 66 22 143/77 H 96 09/23/19 10:23 96 H 21 152/88 H 96 09/23/19 10:18 76 21 159/83 H 90 09/23/19 07:11 36.6 C 64 20 166/72 H 90 09/23/19 03:34 36.8 C 78 18 131/71 90 Laboratory Results Laboratory Results - last 24 hr 09/22/19 09/22/19 09/22/19 15:12 16:55 20:02 APTT 63.8 H* PTT Ratio 2.3 POC Glucose 138 H 197 H Fluid Neutrophils % Fluid Lymphocytes % Fluid Eosinophils % Fl Monocyt/Macrophag % 09/22/19 09/23/19 09/23/19 23:58 07:36 11:37 APTT PTT Ratio POC Glucose 101 H 85 89 Fluid Neutrophils % Fluid Lymphocytes % Fluid Eosinophils % Fl Monocyt/Macrophag % 09/23/19 Unknown APTT PTT Ratio POC Glucose Fluid Neutrophils % 78 Fluid Lymphocytes % 15 Fluid Eosinophils % 1 Fl Monocyt/Macrophag % 6 PG Care Time/CCT Total # of Minutes Spent Total Time Spent with Patient: Total time spent is greater than 50% in coordination of care (as documented) at patient's floor/unit and/or counseling patient: Coding Level of Care Code 63095 Subseq Hosp Care Lvl 2 Diagnoses Left upper lobe pneumonia J18.9 Pneumonia type: due to unspecified organism Oropharyngeal dysphagia R13.12 Pneumomediastinum J98.2 Aspiration into respiratory tract T17. Encounter type: initial encounter Diabetes mellitus E11.9 Diabetes mellitus type: type 2 Diabetes mellitus halfway insulin use: without intermediate project manager use Diabetes mellitus complication status: without complication COPD, moderate J44.9 Benign prostatic hyperplasia with urinary obstruction N40.1; N13.8 Hypertension I10 Hypertension type: essential hypertension Hypothyroidism (acquired) E03.9 Atrial flutter I48.92 Atrial flutter type: unspecified Seizure disorder G40.909 DVT prophylaxis Z29.9 (1) Left upper lobe pneumonia Pneumonia type: due to unspecified organism Qualified Code(s): J18.9 - P neumonia, unspecified organism (2) Diabetes mellitus Diabetes mellitus type: type 2 Diabetes mellitus halfway insulin use: without halfway use Diabetes mellitus complication status: without complication Qualified Code(s): E11.9 - Type 2 diabetes mellitus without complications (3) Aspiration into respiratory tract Encounter type: initial encounter Qualified Code(s): T1.908A - Unspecified foreign body in respiratory tract, part unspecified causing other injury, initial encounter (4) Hypertension Hypertension type: essential hypertension Qualified Code(s): I10 - Essential (primary) hypertension (5) Atrial flutter Atrial flutter type: unspecified Qualified Code(s): I48.92 - Unspecified atrial flutter
[2019-09-23] MEDS: ALBUTEROL 0.083% NEBU SOLN 3 ML VIAL INH SCH ×2 (15:50→19:24)
[2019-09-23] MEDS: MONTELUKAST SODIUM 10 MG TABLET PO SCH (20:00)
[2019-09-23] MEDS: dilTIAZem HCL 240 MG CAPCR PO SCH (20:01)
[2019-09-23] MEDS: lisinopriL 20 MG TAB PO SCH (20:01)
[2019-09-23] MEDS: INSULIN GLARGINE SOLOSTAR 100 UNITS/ML 3 ML PEN SC SCH (20:04)
[2019-09-24] MEDS: LEVOTHYROXINE SODIUM 25 MCG TABLET PO SCH (05:44)
[2019-09-24] MEDS: AMPICILLIN/SULBACTAM SOD 3,000 MG in 0.9 % SODIUM CHLORIDE 100 ML IV SCH (05:48)
[2019-09-24 06:41] LABS: Hematocrit (blood only) 35.5 % (42-52); Hemoglobin 11.3 g/dL (14.0-18.0); Mean Corpuscular Hemoglobin 25.7 pg (25-34); Mean Corpuscular Hgb Conc 31.8 g/dL (32-36); Mean Corpuscular Volume 80.7 fL (80-100); Mean Platelet Volume 9.3 fL (7.4-10.4); Platelet Count 231 K/uL (130-400); RDW Coefficient of Variation 20.4 % (11.5-14.5); RDW Standard Deviation 60.7 fL (36.4-46.3); White Blood Count 12.39 K/uL (4.8-10.8)
[2019-09-24] MEDS: ALBUTEROL 0.083% NEBU SOLN 3 ML VIAL INH SCH ×3 (06:58→15:01)
[2019-09-24 06:59] LABS: BUN Creatinine Ratio 7.7 (10-20); Calcium 8.9 mg/dl (8.5-10.1); Creatinine Clr Calc Pharmacy 64.4 ml/min; Est GFR (African American) 96.7; Est GFR (Non-African American) 83.5; Magnesium 2.1 mg/dl (1.8-2.4); Potassium 3.9 mmol/L (3.5-5.1)
[2019-09-24] MEDS: UMECLIDINIUM/VILANTEROL 62.5/25MCG 7 PUFFS/INHALER INH SCH (09:11)
[2019-09-24] MEDS: FLUTICASONE FUROATE 100MCG 14 PUFFS/INHALER INH SCH (09:12)
[2019-09-24] MEDS: CALCIUM 600MG + VIT D 400 IU TAB PO SCH (09:12)
[2019-09-24] MEDS: levETIRAcetam 500 MG TAB PO SCH (09:13)
[2019-09-24] MEDS: ASPIRIN 81 MG ECTAB PO SCH (09:13)
[2019-09-24] MEDS: FERROUS SULFATE 325 MG TAB PO SCH (09:13)
[2019-09-24] MEDS: ATORVASTATIN 40 MG TAB PO SCH (09:13)
[2019-09-24] MEDS: CYANOCOBALAMIN 500 MCG TABLET (VITAMIN B-12) PO SCH (09:14)
[2019-09-24] MEDS: METOPROLOL TARTRATE 100 MG TAB PO SCH (09:14)
[2019-09-24] MEDS: guaiFENesin 600 MG TABCR PO SCH (09:14)
[2019-09-24] MEDS: MAGNESIUM OXIDE 400 MG TAB PO SCH (09:14)
[2019-09-24] MEDS: SERTRALINE HCL 100 MG TABLET PO SCH (09:15)
[2019-09-24] MEDS: INSULIN ASPART 100 UNITS/ML 3 ML PEN SC SCH ×2 (10:41→12:20)
[2019-09-24] MEDS ORDERED: levoFLOXacin 750 MG TAB PO SCH (11:00)
--- NOTE | 2019-09-24 14:37 | Pulmonology Progress Note ---
Date of Service September 24, 2019 Assessment & Plan (1) Pneumonia: 79-year-old male presenting with hypoxemic respiratory failure secondary to left upper lobe collapse. Was found to have chronic inflammation in the left upper lobe with copious amounts of secretions and Pseudomonas infe ction. --Left upper lobe pneumonia Found to have pseudomonal pneumonia on bronchoscopy. Continue 10 days of Levaquin. Clinically doing much better today. Continue Acapella flutter valve 3 times a day. This should be continued indefinitely to prevent further lobar collapse. Biopsy results and brushing results are negative for malignancy. Some atypia seen likely related to chronic inflammation. Patient did have similar episode in March 2019 where he had collapse of the left upper lobe. He was bronched by Dr. Lynn which showed a mucous plug as per his procedure note. --Spontaneous pneumomediastinum Seems to be resolved at this point. Likely related to increased intrathoracic pressures from the left upper lobe being collapse. --COPD Continue home regimen. 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 Lynn in 2018 --A. fib Okay to restart anticoagulation as he has no evidence of hemoptysis. Plan: Continue Levaquin for total 10 days. Follow sensitivities. Okay to discharge from my perspective. Continue flutter valve therapy 3 times a day. Follow-up with Dr. lundberg as an outpatient. I personally discussed the case with the hospitalist, Dr. Love. Please note the above document was generated using voice recognition software. It may contain grammatical, syntax or spelling errors. Laterality: left Lung location: upper lobe of lung Pneumonia type: due to unspecified organism Qualified Code(s): J18.9 - Pneumonia, unspecified organism Admission and Anticipated Discharge Date Admission Date: September 18, 2019 Subjective Patient is doing very well. He is sitting up and stood up at one point. He is on room air. He is eager to go home and asked me multiple times when he can go home. He is eating. Denies any hemoptysis. Notes that he feels about 50% better compared to yesterday. No fevers or chills. Saturations 94% when on 2 L of nasal cannula. Vital signs otherwise have been stable. Physical Exam Constitutional: WD/WN, vitals as above well developed Eyes: PERRL, conjunctivae normal, anicteric sclerae ENMT: Ears: + hearing impairment Neck: normal visual inspection Respiratory: Mild crackles in the left lower lobe. No wheezing. No tachypnea. Cardiovascular: RRR, no murmur, no edema Gastrointestinal (Abdomen): normal bowel sounds, soft, nontender, no hepatosplenomegaly Musculoskeletal: no cyanosis or clubbing, extremities motor strength 5/5 Skin: no rashes, warm and dry Neurologic: PERRL, EOMI, accommodation nl, no face palsy, no dysarthria Psychiatric: A+Ox3, euthymic affect Results & Data Results & Data ([facility]) Vital Signs (Past 12 Hours) Vital Signs Temp Pulse Resp BP Pulse Ox 09/24/19 11:25 56 L 17 94 09/24/19 11:04 98.1 F 55 L 22 147/69 H 94 09/24/19 07:22 97.9 F 74 22 154/76 H 90 09/24/19 07:02 64 18 93 I personally reviewed the patient's vital signs, laboratory data and chest imaging. PG Care Time/CCT Total # of Minutes Spent Total Time Spent with Patient: Total time spent is greater than 50% in coordination of care (as documented) at patient's floor/unit and/or counseling patient: Coding Level of Care Code 21187 Subseq Hosp Care Lvl 3 Diagnoses Pneumonia J18.9 Laterality: left Lung location: upper lobe of lung Pneumonia type: due to unspecified organism
--- NOTE | 2019-09-24 15:43 | Discharge Summary ---
Date of Service date of admission - September 18, 2019 date of discharge - September 24, 2019 Admission HPI Per Admitting Provider Jose J Zurita is a 79 year old man with a past medical history significant for COPD (on home oxygen 2L at night, he tells me his baseline O2 is between 85 and 88 during the day time and he occasionally supplements with O2 during the day 2L when it drops below 85) HTN, Hypothyroidism, dyslipidemia, moderate cognitive impairment, paroxysmal A fibs, DM ty 2, who presents to the Emergency Room with complaints of shortness of breath, coughing and wheezing. He has been having these symptoms for about 2 weeks the most troubling for him has been this cough which is productive of pearly mucus. No blood. His had him see his primary care physician who put him on doxycycline and augmentin which have not helped his symptoms. On arrival to emergency department patient was found to be oxygenating well on his home 2L of O2 and his vitals are otherwise WNL. Labwork significant for an elevated white count of 15.[address] scan of chest obtained sh owing left upper lobe collapse with narrowing of the left upper lobe bronchus. There is also narrowing of the left lower lobe bronchus. There is pulmonary edema. There is left apical septal edema. There is multifocal bronchial wall thickening and mucous plugging. There are right lower lobe groundglass opacities, pneumonia versus atelectasis. He was given 500 mls of normal saline, one gram of ceftriaxone and 1 gram of magnesium in ED. Patient is unable to remember much to any of his medical history or any of his medications and said that he is forgetful and that his helps him with all of that. He does tell me he is a former smoker and quit 30 years ago after about 40 pack years. 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 He has had atelectasis in the past secondary to mucus plugging. Follows with Dr. Eason of pulmonology. He was also hospitalized in the last year for new seizure disorder for which he is now on keppra. No history of any cancer, not sure of any family history. Principal Diagnosis BHARTI collapse with resulting pneumonia; aspiration likely cause Discharge Exam Constitutional no acute distress and no altered mental status [facility] external ear and nose normal, oropharynx normal Respiratory no respiratory distress Auscultation: + diminished lung sounds (BHARTI anterior and posterior) and + wheezes Cardiovascular Rate/Rhythm: + irregularly irregular Heart Sounds: normal S1 and normal S2; no murmur Vessels: dorsalis pedis pulses present; no JVD Extremities: no edema Gastrointestinal (Abdomen) normal bowel sounds, soft, nontender, no hepatosplenomegaly Psychiatric Orientation: alert, oriented to person and oriented to place Discharge Data Allergies Allergy/AdvReac Type Severity Reaction Status Date / Time pollen extracts Allergy Mild CONGESTION Verified 09/16/19 15:33 Consultations Pulmonology - [facility] (Salvador Rawls MD) PT, OT, speech Procedures Performed Operation Date: 09/23/19 Actual Procedures Bronchoscopy - Salvador Rawls MD two-step oxygen test - passed; no need for ambulatory oxygen Ordered Studies CT chest wo con - IMPRESSION: 1. Examination limited secondary to respiratory motion artifact and lack of intravenous contrast administration 2. Unusual anterior pneumomediastinum of uncertain etiology 3. Left upper lobe collapse 4. Borderline enlarged mediastinal lymph nodes 5. Small left pleural effusion and trace right pleural effusion 6. Right lower lobe groundglass opacities, pneumonia versus atelectasis 7. Left apical septal edema 8. Multifocal bronchial wall thickening and mucous plugging 9. Narrowing of the left upper lobe and left lower lobe bronchus. While a mass cannot be excluded, this may be secondary to aspiration/mucous plugging as no mass was visualized on the July 2019 study. 10. Bilateral adrenal gland nodules, adenomas are favored 11. Stable 27 mm subcutaneous anterior chest wall mass possibly representing a sebaceous cyst [place] video swallow - aspiration with thin liquid barium Hospital Course (1) Left upper lobe pneumonia: Aspiration pneumonia was suspected given video swallow results and previous history of BHARTI pneumonia/BHARTI collapse in 03/2019. Received broad-spectrum IV antibiotics while hospitalized. Patient clinically improved during his hospitalization. Was seen by pulmonary - bronchoscopy was advised due to the BHARTI collapse seen on CT chest. He ultimately underwent bronch by Dr Rawls. Copious secretions/mucous plugs were found in the BHARTI bronchus. These were suctioned out, and cultures were sent. Biopsies were obtained to rule out endobronchial tumor - these returned negative prior to discharge. Just prior to discharge the patient's bacterial culture from the bronch was growing pseudomonas. He was discharged home on a 7-day course of oral levaquin 750mg daily. At discharge the patient was advised to follow a modified diet (nectar thick liquids), follow aspiration precautions, and perform flutter valve 3x's a day at home to prevent collapse. Of note - Left upper lobe collapse also occurred in March 2019 after RLL wedge resection for harmatoma that required bronchoscopy on post op day #4 to remove mucus plug. The patient will need close pulmonary follow-up post-discharge with Dr Joseluis Eason. He passed his 2-step oxygen test on day of discharge. He will continue to use [place] O2 at as previous, however. (2) Oropharyngeal dysphagia: Video swallow test on 09/19 showed aspiration of thin liquids and significant esophageal dysmotility. Antler thick, slippery diet was recommended & he did well with this. (3) Pneumomediastinum: Small. Uncertain etiology. Required [place] O2 during the stay for such. Last chest x-ray prior to discharge did not show any residual pneumomediastinum or pneumothorax. Patient's o2 sats were stable in room air at time of discharge. (4) Aspiration into respiratory tract: See discussion above regarding dysphagia. Continue flutter valve. Continue incentive spirometry. Continue aspiration precautions. Continue nectar thick liquids. (5) Diabetes mellitus: HbA1C 6.5 Cont metformin & glimepiride post-d/c (6) COPD, moderate: Mild wheezes on exam during the stay but no significant exacerbation. Systemic steroids were deferred while here. Continue his usual inhalers and nebs at home. Follow-up with [facility] as outpatient (Dr Joseluis Eason). (7) Benign prostatic hyperplasia with urinary obstruction: voiding w/o difficulty while hospitalized (8) Hypertension: continue home meds (9) Hypothyroidism (acquired): TSH 07/2019 was wnl cont synthroid as is (10) Atrial flutter: Eliquis was held pre-bronchoscopy and for 1 day post-bronchoscopy. It was resumed at time of discharge. cont beta nelli and calcium channel nelli. (11) Seizure disorder: no seizures while hospitalized continue keppra Total Time Total Time Spent Total Time Spent (In Minutes): 45 Total Time Includes: Examination of the Patient, Discharge Planning, Medication Reconciliation and Communication With Other Providers Discharge Plan Discharge Items Patient Disposition: Home - Self-Care Reason For Visit: PNEUMONIA Discharge Diagnosis: 1. collapse of the upper lobe of the left lung - improved following bronchoscopy by Dr Rawls 2. pneumonia of the upper lobe of the left lung - improved with antibiotics 3. difficulty swallowing with likely aspiration - nectar thick liquids recommended by speech therapy Condition on Discharge: Fair Activity: As commented below Activity Comment: gradually increase your activities over the next 2-3 days Non-emergency contact: Primary Care Provider and S[employer]ing Machine [employer]eder Call non-emergency contact if: you have any medication questions, your symptoms worsen and you have a fever Follow-up/Referrals: Lorna Tucker DO [Primary Care Provider] - (please contact Dr Tucker's office by phone to see her or speak with her via telehealth over the next 5-7 days ) Joseluis Eason DO [Physician] - (see Dr aEson within 1 week in the pulmonary office ) Diet: Carb Consistent or DM2 Liquid Consistency: Antler thick Addtl Attending Provider Instructions: You were treated for left upper lobe pneumonia with IV antibiotics. We discovered that the left upper lobe was collapsed, similar to March 2019. You underwent a bronchoscopy with Dr Rawls from pulmonary. During the procedure a large amount of mucous was removed from the bronchial tubes in the left upper lobe. Biopsies from that region were negative for cancer. Cultures from the procedure are growing bacteria. Of note - we checked you for COVID-19 (coronavirus) infection and this was negative. It is believed that aspiration (swallowing liquid and solids into the lungs while eating) may be contributing to your lung problem. You were seen by the speech therapist and they are recommending that you thicken your liquids to a NECTAR THICK consistency. Please exercise caution during meals - always sit upright, take small sips, do not lie down immediately after meals, etc. Recommendations -- 1. take levofloxacin antibiotic 750mg once daily for 7 days starting tomorrow, 09/24 2. take probiotics once daily for 10 days starting tomorrow 3. use your GREEN flutter valve from the hospital THREE TIMES A DAY EVERY DAY to prevent collapse of your lung 4. use your oxygen at night-time as previous; your oxygen test on 09/23 showed you do not need oxygen with walking or when you leave the house 5. stop your previous antibiotics (amoxicillin, doxycycline) 6. continue your inhalers and nebulizer treatments as previous 7. ok to resume your eliquis blood thinner tonight at bedtime Follow-up - see Dr Eason within 1 week; call or see Dr Tucker within 1-2 weeks Return to [facility] if - * you have fevers over 100.5 degrees * you have worsening shortness of breath * you have chest pains * you have severe diarrhea * you have to use your oxygen more frequently * any other concerns Pending Studies at Discharge: Yes Studies:: final cultures from bronchoscopy Stand-Alone Forms: [facility], Smoking Cessation Medications and DC Order Prescriptions: New levofloxacin 750 mg Tablet 750 mg PO DAILY Qty: 7 RF: 0 Saccharomyces boulardii 250 mg capsule 250 mg PO DAILY 10 Days Qty: 10 RF: 0 Continued cyanocobalamin (vitamin B-12) [Vitamin B-12] 1,000 mcg tablet 1,000 mcg PO QAM Qty: 180 RF: 1 Eliquis 5 mg tablet 5 mg PO BID Qty: 180 RF: 3 metoprolol tartrate 100 mg tablet 100 mg PO BID Qty: 180 RF: 1 levetiracetam [Keppra] 500 mg tablet 1,000 mg PO BID Qty: 28 RF: 1 glimepiride 2 mg tablet 4 mg PO QAM Qty: 180 RF: 1 sertraline 100 mg tablet 100 mg PO QAM Qty: 90 RF: 2 levothyroxine [Synthroid] 25 mcg tablet 25 mcg PO QAM Qty: 90 RF: 1 calcium carbonate-vitamin D3 600 mg(1,500mg) -400 unit tablet 2 tab PO QAM RF: 0 Trelegy Ellipta 100-62.5-25 mcg blister with device 1 inh INHALATION QAM Qty: 180 RF: 1 albuterol sulfate 2.5 mg /3 mL (0.083 %) solution for nebulization 2.5 mg INH QID PRN (Reason: Shortness Of Breath Or Wheezing) RF: 0 metformin 1,000 mg tablet 1,000 mg PO BIDM RF: 0 albuterol sulfate [Ventolin HFA] 90 mcg/actuation HFA aerosol inhaler 2 puffs INH Q4H PRN (Reason: Shortness Of Breath Or Wheezing) RF: 0 fluticasone propionate [Allergy Relief (fluticasone)] 50 mcg/actuation spray,suspension 1 - 2 sprays INTNAS DAILY RF: 0 aspirin [Aspir-81] 81 mg Tablet,Delayed Release (Dr/Ec) 81 mg PO QAM RF: 0 atorvastatin [Lipitor] 40 mg tablet 40 mg PO QAM RF: 0 diltiazem HCl [Cartia XT] 240 mg capsule,extended release 24hr 240 mg PO HS RF: 0 lisinopril 20 mg tablet 20 mg PO HS RF: 0 montelukast 10 mg tablet 10 mg PO HS RF: 0 Discontinued doxycycline hyclate 100 mg capsule 100 mg PO BID 10 Days Qty: 20 RF: 0 amoxicillin-pot clavulanate 875-125 mg tablet 1 tab PO BID 10 Days Qty: 20 RF: 0 Discharge Orders: Discharge Order (Routine); Ordered 09/24/19 Ordered By: Tristan Salcedo/Other Patient Handouts: Diabetes Type 2 Managing Admission Data Admit Date/Time: 09/18/19 23:13 Attending Provider: Tristan Chairez Admit Provider: Isauro Elena Primary Care Provider: Lorna Tucker Other Providers: Drake Morris ; Neri Beckman Other Interventions: Discharge Summary Assessment (RN) Last Done: 09/24/19 16:03 DC Date/Time DO NOT enter until pt leaves facility: 09/24/19 16:55 Coding Level of Care Code D/C Day Management >30 mins Diagnoses Left upper lobe pneumonia J18.9 Pneumonia type: due to unspecified organism Oropharyngeal dysphagia R13.12 Pneumomediastinum J98.2 Aspiration into respiratory tract T17.908A Encounter type: initial encounter Diabetes mellitus E11.9 Diabetes mellitus complication status: without complication 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
== END 2019-09-24 16:55 | disposition home or self-care (01) | DRG 195 ==
LOC: ED 17:12 → 2W 23:13 → SUATTDRO 23:13 → 2W 23:58

== ENCOUNTER 2019-11-07 08:48 | Inpatient (IN) ==
[2019-11-07] MEDS ORDERED: ALBUT/IPRATROP 3MG/0.5MG NEB 3 ML VIAL NEB STA (09:04)
--- NOTE | 2019-11-07 09:11 | Emergency Department Note ---
History of Present Illness General Chief complaint: Shortness of Breath/Dyspnea Time Seen by Provider: 11/07/19 08:55 History of Present Illness Provider complaint: Shortness of breath Onset (ago): week(s) 1 Location: chest Associated symptoms: + chest pain, + cough and + shortness of breath 79-year-old male presents emergency department with difficulty breathing. is at bedside and states she thinks that the patient might have aspirated on his snuff. She states that the patient has a history of COPD and asthma and is supposed be on oxygen but is very noncompliant. She also states the patient has been told to stop using tobacco products but he continues to smoke and chew snuff. She reports that he has been having cough. She reports that he is lost appetite. No loss of taste or smell. She reports he is lethargic. No chest pain. No recent travel. Home Medications Home Medications Medication Instructions Recorded Confirmed Type aspirin [Aspir-81] 81 mg PO BID 02/02/18 11/07/19 History calcium carbonate 600 mg (1,500 2 tab PO HS 01/16/19 11/07/19 History mg)-vitamin D3 400 unit tablet apixaban 5 mg tablet 5 mg PO BID #180 tab 04/12/19 11/07/19 Rx levetiracetam 500 mg tablet 1,000 mg PO BID #28 tab 05/21/19 11/07/19 Rx sertraline 100 mg tablet 100 mg PO QAM #90 tab 05/24/19 11/07/19 Rx montelukast 10 mg PO HS 07/11/19 11/07/19 History albuterol sulfate [Ventolin HFA] 2 puffs INH Q4H PRN 09/18/19 11/07/19 History fluticasone fur. 100 mcg-umeclid 1 inh INHALATION QAM #180 ea 09/18/19 11/07/19 Rx 62.5 mcg-vilant 25 mcg inhalat.powder fluticasone propionate [Allergy 1 - 2 sprays INTNAS DAILY 09/18/19 11/07/19 History Relief (fluticasone)] metformin 1,000 mg PO BIDM 09/18/19 11/07/19 History albuterol sulfate 2.5 mg INH QID PRN #360 ml 10/01/19 11/07/19 Rx sodium chloride 7 % for 4 ml INH BID #240 ml 10/01/19 11/07/19 Rx nebulization levothyroxine 25 mcg tablet 25 mcg PO QAM #90 tab 10/07/19 11/07/19 Rx glimepiride 2 mg tablet 4 mg PO QAM #180 tab 10/10/19 11/07/19 Rx metoprolol tartrate 100 mg tablet 100 mg PO BID #180 tab 10/16/19 11/07/19 Rx diltiazem HCl 240 mg 240 mg PO HS #90 cap 10/22/19 11/07/19 Rx capsule,extended release 24 hr lisinopril 20 mg tablet 20 mg PO HS #90 tab 10/22/19 11/07/19 Rx atorvastatin [Lipitor] 40 mg PO HS 11/07/19 11/07/19 History cyanocobalamin (vitamin B-12) 1,000 mcg PO HS 11/07/19 11/07/19 History [Vitamin B-12] Allergies Allergy/AdvReac Type Severity Reaction Status Date / Time pollen extracts Allergy Mild CONGESTION Verified 11/07/19 10:06 Past Med/Surg History Family History Father Heart disease Other COPD (chronic obstructive pulmonary disease) Depression Family history non-contributory Denies family history of Ovarian cancer Prostate cancer Coronary heart disease Myocardial infarction Breast cancer Seizure Lung cancer Colorectal cancer Social History Preferred Language: Icelandic Communication Ability: Effective Visual Impairment: No Limitations Hearing Ability: Use of Hearing Aid Ice Skating Instructor Required: No Beliefs That Will Affect Care: None marital status: Current Living Situation: Spouse current occupational status: retired 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, 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[employer] Other Information That Helps Us Care for You: No Feels Safe at Home: Yes Safety Concerns: Feels Safe At This Time Smoking Status: Former smoker Tobacco Type: cigarettes ; Cigarettes Per Day: 20-40 ; Do You Dip or Chew Tobacco: No ; Smoking End Date: 1973 ; Number of Years Since Quit: 34 ; Second Hand Exposure: No ; Tobacco Cessation Education Requested by Patient: No Hx Alcohol Use: No Hx Substance Use: No Childhood Exposure to Second-Hand Smoke: Yes Diet Comment: regular caffeine: No Dental Care, Regularly: No Physical Activity Frequency: Does not Exercise Seatbelt Use: always Sunscreen Use: Yes Review of Systems A total of 10 systems reviewed and were otherwise negative Physical Exam Vital Signs Vital Signs - 24 hr 11/07/19 08:51 11/07/19 08:53 11/07/19 08:55 Temperature 36.7 C Temperature Source Oral Pulse Rate 102 H 99 H 91 H Pulse Rate [Apical] Pulse Rate from SpO2 Sensor 84 89 Respiratory Rate 22 24 Respiratory Effort / Characteristics Blood Pressure 108/66 108/66 Blood Pressure Mean 80 71 Pulse Oximetry 91 93 92 Oxygen Delivery Method Room Air Sepsis Recent Fever Within 48 Hours No Sepsis Action Taken by Nursing No Action Required 11/07/19 09:00 11/07/19 09:01 11/07/19 09:04 Temperature Temperature Source Pulse Rate 100 H 101 H Pulse Rate [Apical] Pulse Rate from SpO2 Sensor 96 H 79 Respiratory Rate 23 Respiratory Effort / Characteristics Blood Pressure 92/72 L Blood Pressure Mean 76 Pulse Oximetry 94 93 90 Oxygen Delivery Method Room Air Sepsis Recent Fever Within 48 Hours Sepsis Action Taken by Nursing 11/07/19 09:30 11/07/19 09:31 11/07/19 09:41 Temperature Temperature Source Pulse Rate 83 89 Pulse Rate [Apical] 90 Pulse Rate from SpO2 Sensor Respiratory Rate 22 22 16 Respiratory Effort / Characteristics Spontaneous Blood Pressure 107/81 Blood Pressure Mean 87 Pulse Oximetry 93 Oxygen Delivery Method Room Air Sepsis Recent Fever Within 48 Hours Sepsis Action Taken by Nursing 11/07/19 10:00 11/07/19 10:30 11/07/19 10:56 Temperature Temperature Source Pulse Rate 80 76 77 Pulse Rate [Apical] Pulse Rate from SpO2 Sensor 87 81 Respiratory Rate 23 23 19 Respiratory Effort / Characteristics Blood Pressure 100/64 Blood Pressure Mean 65 Pulse Oximetry 93 92 Oxygen Delivery Method Sepsis Recent Fever Within 48 Hours Sepsis Action Taken by Nursing 11/07/19 11:00 11/07/19 11:01 11/07/19 11:30 Temperature Temperature Source Pulse Rate 78 77 79 Pulse Rate [Apical] Pulse Rate from SpO2 Sensor 78 76 81 Respiratory Rate 15 14 17 Respiratory Effort / Characteristics Blood Pressure 97/74 L Blood Pressure Mean 79 Pulse Oximetry 91 93 93 Oxygen Delivery Method Sepsis Recent Fever Within 48 Hours Sepsis Action Taken by Nursing 11/07/19 12:00 11/07/19 12:01 11/07/19 12:30 Temperature Temperature Source Pulse Rate 66 68 60 Pulse Rate [Apical] Pulse Rate from SpO2 Sensor 67 66 Respiratory Rate 15 16 20 Respiratory Effort / Characteristics Blood Pressure 120/71 103/67 Blood Pressure Mean 79 69 Pulse Oximetry 91 91 Oxygen Delivery Method Sepsis Recent Fever Within 48 Hours Sepsis Action Taken by Nursing 11/07/19 13:00 11/07/19 13:01 11/07/19 13:30 Temperature Temperature Source Pulse Rate 61 59 L 59 L Pulse Rate [Apical] Pulse Rate from SpO2 Sensor Respiratory Rate 22 19 21 Respiratory Effort / Characteristics Blood Pressure 100/72 Blood Pressure Mean 77 Pulse Oximetry Oxygen Delivery Method Sepsis Recent Fever Within 48 Hours Sepsis Action Taken by Nursing 11/07/19 13:31 11/07/19 13:32 11/07/19 14:00 Temperature Temperature Source Pulse Rate 71 68 82 Pulse Rate [Apical] Pulse Rate from SpO2 Sensor Respiratory Rate 19 21 23 Respiratory Effort / Characteristics Blood Pressure 109/62 Blood Pressure Mean 73 Pulse Oximetry Oxygen Delivery Method Sepsis Recent Fever Within 48 Hours Sepsis Action Taken by Nursing 11/07/19 14:30 Temperature Temperature Source Pulse Rate 52 L Pulse Rate [Apical] Pulse Rate from SpO2 Sensor Respiratory Rate 19 Respiratory Effort / Characteristics Blood Pressure Blood Pressure Mean Pulse Oximetry Oxygen Delivery Method Sepsis Recent Fever Within 48 Hours Sepsis Action Taken by Nursing Physical Exam GENERAL: He is oriented to person, place, and time. He appears well-developed and well-nourished. He does not appear distressed. HENT: Exam performed. - Head: Normocephalic and atraumatic. - Right Ear: External ear normal. No mastoid tenderness. - Left Ear: External ear normal. No mastoid tenderness. - Mouth/Throat: The oropharynx is clear and moist. No trismus in the jaw. No dental abscesses or uvula swelling. No oropharyngeal exudate or tonsillar abscesses. EYES: Conjunctivae and EOM are normal. Pupils are equal, round, and reactive to light. Right eye exhibits no discharge. Left eye exhibits no discharge. No scleral icterus. NECK: Normal range of motion. Neck supple. No JVD present. No spinous process tenderness present. No carotid bruit present. No rigidity. No tracheal deviation and normal range of motion present. No Brudzinski's sign and no Kernig's sign noted. CV: Normal rate, irregular rhythm, normal heart sounds and intact distal pulses. There is no peripheral edema. Palpable radial pulses bue. PULM/CHEST: Diminished breath sounds bilaterally. Bilateral expiratory wheezes at the bases and inspiratory rales at the bases. Rhonchi bilaterally. - Chest Wall: He exhibits no tenderness. ABD: The abdomen is soft. Bowel sounds are normal. He has no distension. No mass is present. There is no tenderness. There is no rebound, no guarding, no Johnson's sign and no tenderness at McBurney's point. Rovsig negative. MUSC/SKEL: Normal range of motion. There is no peripheral edema, tenderness or deformity. LYMPH: No cervical adenopathy. NEURO: He is alert and oriented to person, place, and time. He has normal strength. No cranial nerve deficit or sensory deficit. Coordination and gait normal. GCS eye subscore is 4. GCS verbal subscore is 5. GCS motor subscore is 6. Cerebellar tests wnl. SKIN: Skin is warm and dry. He is not diaphoretic. PSYCH: He has a normal mood and affect. Behavior is normal. Judgment and thought content normal. Course Course 0900: The patient was evaluated in room A3. A complete history and physical exam was performed. EMR reviewed. Patient has a history of noncompliance. It is reported that he still uses snuff. He has a history of chronic right pulmonary aspiration paroxysmal A. fib and is supposed to be on oxygen. He also has a severe history of COPD coronary artery disease and asthma. Cardiac monitoring: An order was placed for continuous cardiac monitoring. The monitor shows a rate of 100 with atrial flutter rhythm 1015: Vital signs stable on supplemental oxygen. ABG within normal limits. Labs show lactic acid of 3. Leukocytosis of 15.95. Chest x-ray shows a left lower lobe pneumonia. Patient has no COVID-19 risk factors. Patient's chest x- ray is not consistent with typical aspiration pneumonia as the infiltrates in the left lower lobe, patient will be treated for Zosyn for presumed bacterial pneumonia. Patient will be admitted to the hospitalist team. IV fluids running. Patient and family members are in agreement. Discussed the case with Dr. Cole [facility] hospitalist who agreed to the admission. Administered Medications Sodium Chloride (Nss 1000ml) 1,000 mls @ 80 mls/hr IV .[id number] PATO Stop: 12/07/19 09:14 Last Admin: 11/07/19 09:33 Dose: 80 mls/hr Documented by: [id number] Discontinued Medications Albuterol (Duoneb) 3 ml NEB NOW STA Stop: 11/07/19 09:05 Last Admin: 11/07/19 09:39 Dose: 3 ml Documented by: [id number] Piperacillin Sod/Tazobactam Sod (Zosyn) 4.5 gm in 120 mls @ 240 mls/hr IV NOW ONE Stop: 11/07/19 10:46 Last Infusion: 11/07/19 11:33 Dose: 0 mls/hr Documented by: [id number] Admin: 11/07/19 10:55 Dose: 240 mls/hr Documented by: [id number] Magnesium Sulfate/Dextrose (Magnesium Sulfate / D5w) 1 gm in 100 mls @ 100 mls/hr IV Q1H PATO Stop: 11/07/19 12:20 Last Infusion: 11/07/19 12:57 Dose: 0 mls/hr Documented by: [id number] Admin: 11/07/19 11:53 Dose: 100 mls/hr Documented by: [id number] Infusion: 11/07/19 11:53 Dose: 100 mls/hr Documented by: [id number] Admin: 11/07/19 10:55 Dose: 100 mls/hr Documented by: [id number] Medical Decision Making Laboratory Data Result diagrams: 11/07/19 08:21 11/07/19 08:21 Lab Results 11/07/19 11/07/19 11/07/19 Range/Units 08:21 08:21 08:21 WBC 15.95 H (4.8-10.8) K/uL RBC 4.91 (4.7-6.1) M/uL Hgb 12.8 L (14.0-18.0) g/dL Hct 41.5 L (42-52) % MCV 84.5 (80-100) fL MCH 26.1 (25-34) pg MCHC 30.8 L (32-36) g/dL RDW Std Deviation 59.2 H (36.4-46.3) fL RDW Coeff of Ashu 19.3 H (11.5-14.5) % Plt Count 283 (130-400) K/uL MPV 10.1 (7.4-10.4) fL Neutrophils % (Manual) 52.2 % Lymphocytes % (Manual) 11.3 % Monocytes % (Manual) 4.3 % Eosinophils % (Manual) 32.2 % Neutrophils # (Manual) 8.33 H (1.4-6.5) K/uL Total Absolute Neuts 8.33 H (1.4-6.5) K/uL Lymphocytes # (Manual) 1.80 (1.2-3.4) K/uL Total Abs Lymphocytes 1.80 (1.2-3.4) K/uL Monocytes # (Manual) 0.69 H (0.11-0.59) K/uL Eosinophils # (Manual) 5.14 H (0-0.5) K/uL RBC Morphology Unremarkable PT Cancelled INR Cancelled APTT Cancelled PTT Ratio Cancelled VBG pH (7.36-7.41) VBG pCO2 (38-50) mmHg VBG pO2 mmHg VBG HCO3 mmol/L VBG O2 Saturation % VBG Base Excess mEq/L Barometric Pressure mm/Hg Sodium 138 (136-145) mmol/L Potassium 3.9 (3.5-5.1) mmol/L Chloride 106 (98-107) mmol/L Carbon Dioxide 23 (21-32) mmol/L Anion Gap 9.0 (3-11) BUN 16 (7-18) mg/dl Creatinine 0.93 (0.6-1.4) mg/dl Est Cr Clr Drug Dosing 59.3 ml/min Est GFR ( Amer) 90.8 Est GFR (Non-Af Amer) 78.4 BUN/Creatinine Ratio 17.1 (10-20) Glucose 201 H (70-99) mg/dl Lactate (0.4-2.0) mmol/L Calcium 9.2 (8.5-10.1) mg/dl Magnesium 1.5 L (1.8-2.4) mg/dl Troponin I < 0.015 (0-0.045) ng/ml NT-Pro-B Natriuret Pep 547 (0-1800) pg/ml Procalcitonin (0-0.5) ng/ml 11/07/19 11/07/19 11/07/19 Range/Units 08:21 09:25 09:25 WBC (4.8-10.8) K/uL RBC (4.7-6.1) M/uL Hgb (14.0-18.0) g/dL Hct (42-52) % MCV (80-100) fL MCH (25-34) pg MCHC (32-36) g/dL RDW Std Deviation (36.4-46.3) fL RDW Coeff of Ashu (11.5-14.5) % Plt Count (130-400) K/uL MPV (7.4-10.4) fL Neutrophils % (Manual) % Lymphocytes % (Manual) % Monocytes % (Manual) % Eosinophils % (Manual) % Neutrophils # (Manual) (1.4-6.5) K/uL Total Absolute Neuts (1.4-6.5) K/uL Lymphocytes # (Manual) (1.2-3.4) K/uL Total Abs Lymphocytes (1.2-3.4) K/uL Monocytes # (Manual) (0.11-0.59) K/uL Eosinophils # (Manual) (0-0.5) K/uL RBC Morphology PT INR APTT PTT Ratio VBG pH 7.40 (7.36-7.41) VBG pCO2 44 (38-50) mmHg VBG pO2 39 mmHg VBG HCO3 27 mmol/L VBG O2 Saturation 71.7 % VBG Base Excess 1.7 mEq/L Barometric Pressure 731.4 mm/Hg Sodium (136-145) mmol/L Potassium (3.5-5.1) mmol/L Chloride (98-107) mmol/L Carbon Dioxide (21-32) mmol/L Anion Gap (3-11) BUN (7-18) mg/dl Creatinine (0.6-1.4) mg/dl Est Cr Clr Drug Dosing ml/min Est GFR ( Amer) Est GFR (Non-Af Amer) BUN/Creatinine Ratio (10-20) Glucose (70-99) mg/dl Lactate 3.0 H* (0.4-2.0) mmol/L Calcium (8.5-10.1) mg/dl Magnesium (1.8-2.4) mg/dl Troponin I (0-0.045) ng/ml NT-Pro-B Natriuret Pep (0-1800) pg/ml Procalcitonin < 0.05 (0-0.5) ng/ml 11/07/19 11/07/19 Range/Units 09:30 11:34 WBC (4.8-10.8) K/uL RBC (4.7-6.1) M/uL Hgb (14.0-18.0) g/dL Hct (42-52) % MCV (80-100) fL MCH (25-34) pg MCHC (32-36) g/dL RDW Std Deviation (36.4-46.3) fL RDW Coeff of Ashu (11.5-14.5) % Plt Count (130-400) K/uL MPV (7.4-10.4) fL Neutrophils % (Manual) % Lymphocytes % (Manual) % Monocytes % (Manual) % Eosinophils % (Manual) % Neutrophils # (Manual) (1.4-6.5) K/uL Total Absolute Neuts (1.4-6.5) K/uL Lymphocytes # (Manual) (1.2-3.4) K/uL Total Abs Lymphocytes (1.2-3.4) K/uL Monocytes # (Manual) (0.11-0.59) K/uL Eosinophils # (Manual) (0-0.5) K/uL RBC Morphology PT 11.7 INR 1.1 APTT 28.2 PTT Ratio 1.0 VBG pH (7.36-7.41) VBG pCO2 (38-50) mmHg VBG pO2 mmHg VBG HCO3 mmol/L VBG O2 Saturation % VBG Base Excess mEq/L Barometric Pressure mm/Hg Sodium (136-145) mmol/L Potassium (3.5-5.1) mmol/L Chloride (98-107) mmol/L Carbon Dioxide (21-32) mmol/L Anion Gap (3-11) BUN (7-18) mg/dl Creatinine (0.6-1.4) mg/dl Est Cr Clr Drug Dosing ml/min Est GFR ( Amer) Est GFR (Non-Af Amer) BUN/Creatinine Ratio (10-20) Glucose (70-99) mg/dl Lactate 2.9 H* (0.4-2.0) mmol/L Calcium (8.5-10.1) mg/dl Magnesium (1.8-2.4) mg/dl Troponin I (0-0.045) ng/ml NT-Pro-B Natriuret Pep (0-1800) pg/ml Procalcitonin (0-0.5) ng/ml Imaging Data Radiologist's Impression: XR chest 2V PA/lateral CLINICAL HISTORY: sob dyspnea COMPARISON STUDY: 10/08/2019 FINDINGS: Poorly defined parenchymal infiltrate left base. Lungs otherwise appear clear. Diaphragms are smooth. Pulmonary apices are clear. IMPRESSION: Parenchymal infiltrate left lung base. ACT 112: Negative or not required by law. The above report was generated using voice recognition software. It may contain grammatical, syntax or spelling errors. Electronically signed by: Kvng Cuellar M.D. 11/07/2019 10:12 AM Dictated: 11/07/19 1011 Transcribed: 11/07/19 1011 ECG Data Indication: + SOB/dyspnea Rate (beats per minute): 100 Rhythm: + atrial flutter ECG Intervals/blocks: + Normal QRS and + Normal QT-c ECG ST segments: + Normal ST segments Additional Comments: EKG shows atrial flutter with a ventricular rate of 100. QRS and QTc intervals within normal limits. No ST elevation or ST depression. [facility] Narrative 0900: The patient was evaluated in room A3. A complete history and physical exam was performed. EMR reviewed. Patient has a history of noncompliance. It is reported that he still uses snuff. He has a history of chronic right pulmonary aspiration paroxysmal A. fib and is supposed to be on oxygen. He also has a severe history of COPD coronary artery disease and asthma. Cardiac monitoring: An order was placed for continuous cardiac monitoring. The monitor shows a rate of 100 with atrial flutter rhythm 1015: Vital signs stable on supplemental oxygen. ABG within normal limits. Labs show lactic acid of 3. Leukocytosis of 15.95. Chest x-ray shows a left lower lobe pneumonia. Patient has no COVID-19 risk factors. Patient's chest x- ray is not consistent with typical aspiration pneumonia as the infiltrates in the left lower lobe, patient will be treated for Zosyn for presumed bacterial pneumonia. Patient will be admitted to the hospitalist team. IV fluids running. Patient and family members are in agreement. Discussed the case with Dr. Cole [facility] hospitalist who agreed to the admission. Impression & Plan Left lower lobe pneumonia, Lactic acidemia Discharge Plan Visit Data Chief Complaint: Shortness of Breath/Dyspnea ED Provider: Justino Palomares Discharge Problem: Left lower lobe pneumonia, Lactic acidemia Patient Disposition: Admitted As Inpatient Forms Stand Alone Forms: My [facility] Prescriptions Prescriptions: No Action Eliquis 5 mg tablet 5 mg PO BID Qty: 180 RF: 3 levetiracetam [Keppra] 500 mg tablet 1,000 mg PO BID Qty: 28 RF: 1 sertraline 100 mg tablet 100 mg PO QAM Qty: 90 RF: 2 levothyroxine [Synthroid] 25 mcg tablet 25 mcg PO QAM Qty: 90 RF: 1 glimepiride 2 mg tablet 4 mg PO QAM Qty: 180 RF: 1 metoprolol tartrate 100 mg tablet 100 mg PO BID Qty: 180 RF: 1 calcium carbonate-vitamin D3 600 mg(1,500mg) -400 unit tablet 2 tab PO HS RF: 0 lisinopril 20 mg tablet 20 mg PO HS Qty: 90 RF: 1 diltiazem HCl [Cartia XT] 240 mg capsule,extended release 24hr 240 mg PO HS Qty: 90 RF: 1 albuterol sulfate 2.5 mg /3 mL (0.083 %) solution for nebulization 2.5 mg INH QID PRN (Reason: Shortness Of Breath Or Wheezing) Qty: 360 RF: 11 sodium chloride 7 % solution for nebulization 4 ml INH BID Qty: 240 RF: 3 Trelegy Ellipta 100-62.5-25 mcg blister with device 1 inh INHALATION QAM Qty: 180 RF: 1 metformin 1,000 mg tablet 1,000 mg PO BIDM RF: 0 albuterol sulfate [Ventolin HFA] 90 mcg/actuation HFA aerosol inhaler 2 puffs INH Q4H PRN (Reason: Shortness Of Breath Or Wheezing) RF: 0 fluticasone propionate [Allergy Relief (fluticasone)] 50 mcg/actuation spray,suspension 1 - 2 sprays INTNAS DAILY RF: 0 atorvastatin [Lipitor] 40 mg tablet 40 mg PO HS RF: 0 cyanocobalamin (vitamin B-12) [Vitamin B-12] 1,000 mcg tablet 1,000 mcg PO HS RF: 0 aspirin [Aspir-81] 81 mg Tablet,Delayed Release (Dr/Ec) 81 mg PO BID RF: 0 montelukast 10 mg tablet 10 mg PO HS RF: 0 Referrals Referrals: Lorna Tucker DO [Primary Care Provider] - Discharge Problem: Left lower lobe pneumonia Qualifiers: Pneumonia type: due to unspecified organism Qualified Code(s): J18.9 - Pneumonia, unspecified organism
[2019-11-07 09:13] LABS: Mean Corpuscular Hgb Conc 30.8 g/dL (32-36); Mean Platelet Volume 10.1 fL (7.4-10.4); Platelet Count 283 K/uL (130-400)
[2019-11-07] MEDS ORDERED: SODIUM CHLORIDE 0.9% 1000ML 1,000 ML IV SCH ×2 (09:15→17:23)
[2019-11-07 09:31] LABS: BUN Creatinine Ratio 17.1 (10-20); Blood Urea Nitrogen 16 mg/dl (7-18); Calcium 9.2 mg/dl (8.5-10.1); Carbon Dioxide 23 mmol/L (21-32); Chloride 106 mmol/L (98-107); Creatinine Clr Calc Pharmacy 59.3 ml/min; Est GFR (African American) 90.8; Est GFR (Non-African American) 78.4; Glucose 201 mg/dl (70-99); Magnesium 1.5 mg/dl (1.8-2.4); Potassium 3.9 mmol/L (3.5-5.1); Sodium 138 mmol/L (136-145)
[2019-11-07 09:36] LABS: Base Excess VBG 1.7 mEq/L; Oxygen Saturation VBG 71.7 %; pH VBG 7.4 (7.36-7.41)
[2019-11-07 09:36] LABS: NT Pro B Type Natriuretic Pept 547 pg/ml (0-1800); Troponin I < 0.015 ng/ml (0-0.045)
[2019-11-07 09:39] LABS: ANC (manual) 8.33 K/uL (1.4-6.5); Eosinophils # (manual) 5.14 K/uL (0-0.5); Eosinophils % (manual) 32.2 %; Hematocrit (blood only) 41.5 % (42-52); Hemoglobin 12.8 g/dL (14.0-18.0); Lymphocytes % (manual) 11.3 %; Mean Corpuscular Hemoglobin 26.1 pg (25-34); Mean Corpuscular Volume 84.5 fL (80-100); Monocytes # (manual) 0.69 K/uL (0.11-0.59); Monocytes % (manual) 4.3 %; Neutrophils # (manual) 8.33 K/uL (1.4-6.5); Neutrophils % (manual) 52.2 %; RBC Morphology Unremarkable; RDW Coefficient of Variation 19.3 % (11.5-14.5); RDW Standard Deviation 59.2 fL (36.4-46.3); Red Blood Count 4.91 M/uL (4.7-6.1); White Blood Count 15.95 K/uL (4.8-10.8)
[2019-11-07 09:48] LABS: INR 1.1 (0.9-1.1); Partial Thromboplastin Time 28.2 Seconds (21.0-31.0); Prothrombin Time 11.7 Seconds (9.0-12.0)
--- NOTE | 2019-11-07 10:14 | XRay Report ---
XR chest 2V PA/lateral CLINICAL HISTORY: sob dyspnea COMPARISON STUDY: 10/08/2019 FINDINGS: Poorly defined parenchymal infiltrate left base. Lungs otherwise appear clear. Diaphragms are smooth. Pulmonary apices are clear. IMPRESSION: Parenchymal infiltrate left lung base. ACT 112: Negative or not required by law. The above report was generated using voice recognition software. It may contain grammatical, syntax or spelling errors. Electronically signed by: Kvng Cuellar M.D. 11/07/2019 10:12 AM
--- NOTE | 2019-11-07 10:15 | Electrocardiogram Report ---
Test Reason : Blood Pressure : / mmHG Vent. Rate : 100 BPM Atrial Rate : 366 BPM P-R Int : 000 ms QRS Dur : 082 ms QT Int : 310 ms P-R-T Axes : 000 054 040 degrees QTc Int : 399 ms Atrial flutter with variable A-V block Diffuse Minor Nonspecific ST abnormality Abnormal ECG When compared with ECG of 18-SEP-2019 17:35, Atrial flutter has replaced Sinus rhythm Vent. rate has increased BY 38 BPM Confirmed by Paolo Fontenot ([id number]) on 11/07/2019 10:15:11 AM Referred By: Confirmed By:Paolo Fontenot
[2019-11-07] MEDS ORDERED: PIPERACILLIN/TAZOBACTAM 4.5 GM/120 ML BAG IV ONE (10:17)
--- NOTE | 2019-11-07 10:51 | History & Physical Report ---
Date of Service November 07, 2019 Assessment & Plan (1) Left lower lobe pneumonia: Patient presents with leukocytosis left lower lobe infiltrate increased work of breathing initially placed on Zosyn by the emergency room physician. His last pulmonary culture showed Pseudomonas patient be on cefepime 2 g every 8 sputum cultures are pending. Last hospital stay he was discharged on levofloxacin will have pulmonary reevaluate the patient in case he has persistent Pseudomonas colonization Previously Dr Rawls. Did perform bronchoscopy during his last admission in September 2018 findings were such Copious secretions/mucous plugs were found in the BHARTI bronchus. Biopsies were obtained to rule out endobronchial tumor - these returned negative prior to discharge. Oropharyngeal dysphagia: Video swallow test on 09/19 showed aspiration of thin liquids and significant esophageal dysmotility. Hoagland thick, slippery diet was recommended patient is agreeable to use this method in the hospital (2) Acute and chronic respiratory failure with hypoxia: Patient typically follows with Dr. lundberg his COPD is described as moderate he has not been started on steroids at this time will continue nebulized medications expectorants and chest physiotherapy. Patient is not chronically on oxygen at home 2 L with low sats in the high 80s has been resistant to more oxygen use in the past (3) Paroxysmal atrial fibrillation: Typically on diltiazem 240 mg a day, metoprolol tartrate 100 twice daily and apixaban. Will research whether flutter is been part of his arrhythmia complex. Rate is controlled at this time and no further intervention will be undertaken (4) Hypothyroidism (acquired): Remains on Synthroid therapy is on low-dose of 25 mcg a day (5) CAD (coronary artery disease): Patient remains on his antihypertensive medications as above but also continues aspirin atorvastatin (6) Type 2 diabetes mellitus: Typically takes glimepiride and metformin will be continued on glimepiride with sliding scale insulin for backup holding metformin (7) Seizure: Patient has a history of seizure disorder remains on Keppra 1000 twice daily (8) Abdominal aortic aneurysm (AAA), 30-34 mm diameter: This is noted for historical sake only his last ultrasound was in 2018 which showed 3.3 x 3 cm distal aortic dilation which was unchanged from a 2017 study History of Present Illness Primary Care Provider: DO Jose J Dang is a 79 year old man with a past medical history significant for COPD (on home oxygen 2L at night, he tells me his baseline O2 is between 85 and 88 during the day time and he occasionally supplements with O2 during the day 2L when it drops below 85) HTN, Hypothyroidism, dyslipidemia, moderate cognitive impairment, paroxysmal A fibs, DM2 Presents emergency department with difficulty breathing. This patient was discharged with treatment for pneumonia in September 2019 he says he is not quite felt good since that time. He typically has an occasional cough. He continues to chew snuff. His is concerned that he is aspirating snuff as he keeps his snuff and while he does his nebulized medications at home. The does not think he coughs violently with any of this. The patient and both admit to noncompliance with his oxygen therapy and noncompliance with his thickening of his liquids as recommended by speech therapy. He also admits that he continues to smoke and chew snuff. She reports that he has been having cough. 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 His reports that he has not lost appetite. No loss of taste or smell. She reports he is lethargic. No chest pain. No recent travel. In the emergency department he does have a left lower lobe pneumonia leukocytosis and increased work of breathing on clinical examination. Allergies Allergy/AdvReac Type Severity Reaction Status Date / Time pollen extracts Allergy Mild CONGESTION Verified 11/07/19 10:06 Home Medications Home Medications Medication Instructions Recorded Confirmed Type aspirin [Aspir-81] 81 mg PO BID 02/02/18 11/07/19 History calcium carbonate 600 mg (1,500 2 tab PO HS 01/16/19 11/07/19 History mg)-vitamin D3 400 unit tablet apixaban 5 mg tablet 5 mg PO BID #180 tab 04/12/19 11/07/19 Rx levetiracetam 500 mg tablet 1,000 mg PO BID #28 tab 05/21/19 11/07/19 Rx sertraline 100 mg tablet 100 mg PO QAM #90 tab 05/24/19 11/07/19 Rx montelukast 10 mg PO HS 07/11/19 11/07/19 History albuterol sulfate [Ventolin HFA] 2 puffs INH Q4H PRN 09/18/19 11/07/19 History fluticasone fur. 100 mcg-umeclid 1 inh INHALATION QAM #180 ea 09/18/19 11/07/19 Rx 62.5 mcg-vilant 25 mcg inhalat.powder fluticasone propionate [Allergy 1 - 2 sprays INTNAS DAILY 09/18/19 11/07/19 History Relief (fluticasone)] metformin 1,000 mg PO BIDM 09/18/19 11/07/19 History albuterol sulfate 2.5 mg INH QID PRN #360 ml 10/01/19 11/07/19 Rx sodium chloride 7 % for 4 ml INH BID #240 ml 10/01/19 11/07/19 Rx nebulization levothyroxine 25 mcg tablet 25 mcg PO QAM #90 tab 10/07/19 11/07/19 Rx glimepiride 2 mg tablet 4 mg PO QAM #180 tab 10/10/19 11/07/19 Rx metoprolol tartrate 100 mg tablet 100 mg PO BID #180 tab 10/16/19 11/07/19 Rx diltiazem HCl 240 mg 240 mg PO HS #90 cap 10/22/19 11/07/19 Rx capsule,extended release 24 hr lisinopril 20 mg tablet 20 mg PO HS #90 tab 10/22/19 11/07/19 Rx atorvastatin [Lipitor] 40 mg PO HS 11/07/19 11/07/19 History cyanocobalamin (vitamin B-12) 1,000 mcg PO HS 11/07/19 11/07/19 History [Vitamin B-12] Past Med/Surg History Family History Father Heart disease Other COPD (chronic obstructive pulmonary disease) Depression Family history non-contributory Denies family history of Ovarian cancer Prostate cancer Coronary heart disease Myocardial infarction Breast cancer Seizure Lung cancer Colorectal cancer Social History Preferred Language: Guinean Communication Ability: Effective Visual Impairment: No Limitations Hearing Ability: Use of Hearing Aid 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 Operator Required: No Beliefs That Will Affect Care: None marital status: Current Living Situation: Spouse current occupational status: retired 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, 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[employer] ([place]) Other Information That Helps Us Care for You: No Feels Safe at Home: Yes Safety Concerns: Feels Safe At This Time Smoking Status: Former smoker Tobacco Type: cigarettes ; Cigarettes Per Day: 20-40 ; Do You Dip or Chew Tobacco: No ; Smoking End Date: 1973 ; Number of Years Since Quit: 34 ; Second Hand Exposure: No ; Tobacco Cessation Education Requested by Patient: No Hx Alcohol Use: No Hx Substance Use: No Childhood Exposure to Second-Hand Smoke: Yes Diet Comment: regular caffeine: No Dental Care, Regularly: No Physical Activity Frequency: Does not Exercise Seatbelt Use: always Sunscreen Use: Yes Review of Systems Review of Systems: Mild distress and fatigue no headache, blurry or double vision no speech or swallowing issues no chest pain, pressure or palpitations Patient states he feels short of breath dyspnea on exertion has a nonproductive cough no abdominal pain, nausea or vomiting, diarrhea or constipation no dysuria, hematuria or frequency no focal joint pain or swelling no back pain, CVA tenderness or radicular pain no bruising, bleeding or rashes no focal signs of weakness or numbness or altered sensation no complaints or anxiety or depression.. Physical Exam Physical Exam: The patient appeared well nourished and normally developed. Vital signs as documented. Head exam is normocephalic atraumatic no scleral icterus Neck is without JVD, thyromegaly, or carotid bruits. Lung exam has prolonged expiratory phase and musical wheezes on expiration Cardiac exam, irregularly irregular and tachycardic. Abdominal exam reveals normal bowel sounds, soft non tender, no masses Extremities are nonedematous and both pedal pulses are normal. Neurologic exam is alert and oriented, no focal loss of strength or sensation Skin is without bruises or rashes Psychologically is without concerns for anxiety or depression Results & Data Results & Data ([facility]) Vital Signs (Past 12 Hours) Vital Signs Temp Pulse Pulse Resp BP Pulse Ox 11/07/19 09:41 90 16 93 11/07/19 09:04 90 11/07/19 08:51 98.1 F 102 H 22 108/66 91 2 view chest x-ray 11/07/2019 showing left basilar infiltrate EKG shows atrial flutter controlled ventricular rate PG Care Time/CCT Total # of Minutes Spent Total Time Spent with Patient: Total time spent is greater than 50% in coordination of care (as documented) at patient's floor/unit and/or counseling patient: Coding Level of Care Code 14780 Initial Inpt Care Lvl 3 Diagnoses Left lower lobe pneumonia J18.9 Acute and chronic respiratory failure with hypoxia J96.21 Paroxysmal atrial fibrillation I48.0 Hypothyroidism (acquired) E03.9 CAD (coronary artery disease) I25.10 Type 2 diabetes mellitus E11.9 Seizure R56.9 Abdominal aortic aneurysm (AAA), 30-34 mm diameter I71.4
[2019-11-07] MEDS: MAGNESIUM SULFATE / D5W 1 GM/100 ML BAG IV SCH ×2 (10:55→11:53)
[2019-11-07] MEDS ORDERED: ALUMINUM/MAGNESIUM SUSP 30 ML UDC PO PRN (17:23)
[2019-11-07] MEDS ORDERED: CARBOHYDRATES FOR HYPOGLYCEMIA PO PRN (17:23)
[2019-11-07] MEDS ORDERED: ONDANSETRON INJ 2 MG/ML 2 ML VIAL IV PRN (17:23)
[2019-11-07] MEDS ORDERED: DEXTROSE 50% 50 ML SYRINGE IV PRN (17:23)
[2019-11-07] MEDS ORDERED: GLUCAGON FOR INJ 1 MG VIAL SQ PRN (17:23)
[2019-11-07] MEDS ORDERED: GLUCOSE 40% GEL 15 GM TUBE PO PRN (17:23)
[2019-11-07] MEDS ORDERED: GLUCOSE 10 TABS/TUBE PO PRN (17:23)
[2019-11-07] MEDS ORDERED: ACETAMINOPHEN 325 MG TAB PO PRN (17:23)
[2019-11-07] MEDS ORDERED: POLYETHYLENE (MIRALAX) 17 GM PACK PO PRN (17:23)
[2019-11-07] MEDS ORDERED: PHARMACY GLYCEMIC MGMT CONSULT PRN (17:49)
[2019-11-07] MEDS: ALBUT/IPRATROP 3MG/0.5MG NEB 3 ML VIAL NEB SCH ×2 (17:57→18:00)
[2019-11-07] MEDS ORDERED: NovoLIN-N (NPH) PER UNIT CHARGE SQ ONE (18:00)
[2019-11-07] MEDS: SODIUM CHLOR 7% 4 ML NEB INH SCH (18:00)
[2019-11-07] MEDS ORDERED: predniSONE 20 MG TAB PO ONE (18:00)
[2019-11-07] MEDS: CEFEPIME 2,000 MG in SYRINGE 7.5 ML IV SCH (18:09)
[2019-11-07] MEDS: INSULIN ASPART 100 UNITS/ML 3 ML PEN SC SCH ×2 (18:12→21:49)
[2019-11-07] MEDS ORDERED: ATORVASTATIN 40 MG TAB PO SCH (21:00)
[2019-11-07] MEDS ORDERED: dilTIAZem HCL 240 MG CAPCR PO SCH (21:00)
[2019-11-07] MEDS ORDERED: MONTELUKAST SODIUM 10 MG TABLET PO SCH (21:00)
[2019-11-07] MEDS ORDERED: lisinopriL 20 MG TAB PO SCH (21:00)
[2019-11-07] MEDS ORDERED: CALCIUM 600MG + VIT D 400 IU TAB PO SCH (21:00)
[2019-11-07] MEDS: METOPROLOL TARTRATE 100 MG TAB PO SCH (21:37)
[2019-11-07] MEDS: APIXABAN 5 MG TABLET PO SCH (21:37)
[2019-11-07] MEDS: levETIRAcetam 500 MG TAB PO SCH (21:37)
[2019-11-08] MEDS: CEFEPIME 2,000 MG in SYRINGE 7.5 ML IV SCH ×2 (01:38→10:28)
[2019-11-08] MEDS ORDERED: LEVOTHYROXINE SODIUM 25 MCG TABLET PO SCH (06:30)
[2019-11-08] MEDS: SODIUM CHLOR 7% 4 ML NEB INH SCH (07:00)
[2019-11-08] MEDS: ALBUT/IPRATROP 3MG/0.5MG NEB 3 ML VIAL NEB SCH ×3 (07:00→15:31)
[2019-11-08] MEDS: APIXABAN 5 MG TABLET PO SCH (08:01)
[2019-11-08] MEDS: levETIRAcetam 500 MG TAB PO SCH (08:01)
[2019-11-08] MEDS: METOPROLOL TARTRATE 100 MG TAB PO SCH (08:02)
[2019-11-08] MEDS: INSULIN ASPART 100 UNITS/ML 3 ML PEN SC SCH ×3 (08:11→17:09)
[2019-11-08 08:47] LABS: BUN Creatinine Ratio 19.8 (10-20); Calcium 9.2 mg/dl (8.5-10.1); Creatinine Clr Calc Pharmacy 66.8 ml/min; Est GFR (African American) 97.2; Est GFR (Non-African American) 83.9; Potassium 4.1 mmol/L (3.5-5.1)
[2019-11-08 08:56] LABS: Estimated Average Glucose 134 mg/dl; Hemoglobin A1C 6.3 % (4.5-5.6)
[2019-11-08] MEDS ORDERED: SERTRALINE HCL 100 MG TABLET PO SCH (09:00)
[2019-11-08] MEDS ORDERED: ASPIRIN 81 MG ECTAB PO SCH (09:00)
[2019-11-08] MEDS ORDERED: GLIMEPIRIDE 2 MG TAB PO SCH (09:00)
[2019-11-08] MEDS ORDERED: FLUTICASONE PROPIONATE NA SPR 16 GM BTL SCH (09:00)
--- NOTE | 2019-11-08 11:18 | Pulmonary Consultation ---
Date of Consultation November 08, 2019 Assessment & Plan (1) Lactic acidemia: Impression: 79-year-old male with chronic COPD and issues with bronchiectasis due to aspiration admitted with respiratory issues. He appears back to baseline currently. His chest x-ray is improved. Procalcitonin was n egative. He is not requiring supplemental oxygen currently. Recommendations: 1. History of pneumonia: The patient's chest x-ray appears significantly improved. His procalcitonin was negative and I do not see clear evidence of a pneumonia. Exacerbation of bronchiectasis is possible however the patient feels markedly better currently after less than 24 hours of Zosyn. Will recheck sputum culture to see if Pseudomonas remains present. If he has issues with chronic colonization, consideration for inhaled tobramycin may be appropriate 2. COPD: I think it is okay to de-escalate the patient's antibiotics down to cover acute exacerbation of COPD. We will place him on azithromycin for 5 days. I think a 5-day burst of prednisone may be beneficial with regards to his wheezing. Continue inhalers in the form of Spiriva and Serevent or Anoro. 3. Would continue hypertonic saline as well as flutter valve. Mucinex 1200 mg twice a day can also be tried to see if this helps with pulmonary clearance. Patient states that he feels good. From a pulmonary perspective he may be able to be discharged home with outpatient pulmonary follow-up. Defer to admitting provider. (2) Acute and chronic respiratory failure with hypoxia: (3) Chronic pulmonary aspiration: History of Present Illness Attending Physician: Low Agudelo History of Present Illness Asked by hospitalist to assist in management of this patient with known obstructive lung disease and bronchiectasis. History is obtained from review electronic medical record as well as interview the patient. The patient is a 79-year-old male with a history of advanced obstructive lung disease and recurrent aspiration. He is followed by Dr. lundberg in the outpatient setting and was last seen September 30. He was hospitalized in September and underwent bronchoscopy for atelectasis of the left upper lobe. Inflamed bronchi were noted as well as mucous plugging. No malignancy was identified. Pseudomonas was isolated from patient's respiratory samples and he was placed on Levaquin. The patient presented to the emergency room yesterday with complaints of shortness of breath. He continues to use snuff as a tobacco products. He does not report fevers or chills. He had been coughing and expectorating some phle gm. He had a new left lower lobe infiltrate but overall his chest x-ray looked markedly better. He did receive Zosyn in the emergency room. He was admitted to the hospital service for additional management and we are consulted for additional evaluation. The patient states that this morning when I evaluated him he feels markedly better. He feels his respiratory status is back to baseline. He is not really coughing or expectorating phlegm. He is using thickened liquids here in the hospital. He does not report any wheezing. No ill contacts. Allergies Allergy/AdvReac Type Severity Reaction Status Date / Time pollen extracts Allergy Mild CONGESTION Verified 11/07/19 10:06 Home Medications Home Medications Medication Instructions Recorded Confirmed Type aspirin [Aspir-81] 81 mg PO BID 02/02/18 11/07/19 History calcium carbonate 600 mg (1,500 2 tab PO HS 01/16/19 11/07/19 History mg)-vitamin D3 400 unit tablet apixaban 5 mg tablet 5 mg PO BID #180 tab 04/12/19 11/07/19 Rx levetiracetam 500 mg tablet 1,000 mg PO BID #28 tab 05/21/19 11/07/19 Rx sertraline 100 mg tablet 100 mg PO QAM #90 tab 05/24/19 11/07/19 Rx montelukast 10 mg PO HS 07/11/19 11/07/19 History albuterol sulfate [Ventolin HFA] 2 puffs INH Q4H PRN 09/18/19 11/07/19 History fluticasone fur. 100 mcg-umeclid 1 inh INHALATION QAM #180 ea 09/18/19 11/07/19 Rx 62.5 mcg-vilant 25 mcg inhalat.powder fluticasone propionate [Allergy 1 - 2 sprays INTNAS DAILY 09/18/19 11/07/19 History Relief (fluticasone)] metformin 1,000 mg PO BIDM 09/18/19 11/07/19 History albuterol sulfate 2.5 mg INH QID PRN #360 ml 10/01/19 11/07/19 Rx sodium chloride 7 % for 4 ml INH BID #240 ml 10/01/19 11/07/19 Rx nebulization levothyroxine 25 mcg tablet 25 mcg PO QAM #90 tab 10/07/19 11/07/19 Rx glimepiride 2 mg tablet 4 mg PO QAM #180 tab 10/10/19 11/07/19 Rx metoprolol tartrate 100 mg tablet 100 mg PO BID #180 tab 10/16/19 11/07/19 Rx diltiazem HCl 240 mg 240 mg PO HS #90 cap 10/22/19 11/07/19 Rx capsule,extended release 24 hr lisinopril 20 mg tablet 20 mg PO HS #90 tab 10/22/19 11/07/19 Rx atorvastatin [Lipitor] 40 mg PO HS 11/07/19 11/07/19 History cyanocobalamin (vitamin B-12) 1,000 mcg PO HS 11/07/19 11/07/19 History [Vitamin B-12] Patient History Family History Father Heart disease Other COPD (chronic obstructive pulmonary disease) Depression Family history non-contributory Denies family history of Ovarian cancer Prostate cancer Coronary heart disease Myocardial infarction Breast cancer Seizure Lung cancer Colorectal cancer Social History Preferred Language: Tajik Communication Ability: Effective Visual Impairment: No Limitations Hearing Ability: Use of Hearing Aid 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 Beliefs That Will Affect Care: None marital status: Current Living Situation: Spouse current occupational status: retired 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[employer], 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[employer] ([place]) Other Information That Helps Us Care for You: No Feels Safe at Home: Yes Safety Concerns: Feels Safe At This Time Smoking Status: Former smoker Tobacco Type: cigarettes ; Cigarettes Per Day: 20-40 ; Do You Dip or Chew Tobacco: No ; Smoking End Date: 1973 ; Number of Years Since Quit: 34 ; Second Hand Exposure: No ; Tobacco Cessation Education Requested by Patient: No Hx Alcohol Use: No Hx Substance Use: No Childhood Exposure to Second-Hand Smoke: Yes Diet Comment: regular caffeine: No Dental Care, Regularly: No Physical Activity Frequency: Does not Exercise Seatbelt Use: always Sunscreen Use: Yes Review of Systems Review of Systems: Complete 12 point review of systems completed with the patient and is negative except as noted above Physical Exam Physical Exam: The patient appeared well nourished and normally developed. Vital signs as documented. Head exam is normocephalic atraumatic no scleral icterus Neck is without JVD, thyromegaly, or carotid bruits. Lung exam has prolonged expiratory phase and musical wheezes on expiration Cardiac exam, irregularly irregular and tachycardic. Abdominal exam reveals normal bowel sounds, soft non tender, no masses Extremities are nonedematous and both pedal pulses are normal. Neurologic exam is alert and oriented, no focal loss of strength or sensation Skin is without bruises or rashes Psychologically is without concerns for anxiety or depression Results & Data Results & [facility] ([facility]) Vital Signs (Past 12 Hours) Vital Signs Temp Pulse Pulse Resp BP Pulse Ox 11/08/19 07:24 81 11/08/19 07:18 36.5 C 95 H 20 149/75 H 95 11/08/19 07:02 82 18 95 11/08/19 03:00 36.6 C 75 16 120/58 L 90 11/07/19 23:43 84 Laboratory Results 11/07/19 08:21 11/08/19 08:03 Initial lactate was 2.9. This is not been reassessed. BNP 547. Troponin negative. Procalcitonin negative Diagnostic Findings Chest x-ray from 11/07/2019 was reviewed and compared to prior films from 10/08/2019 and September 2019. There has been gradual improvement of the bilateral opacities. Specifically the left upper lobe appears much better aerated on the current film. PG Care Time/CCT Total # of Minutes Spent Total Time Spent with Patient: Total time spent is greater than 50% in coor dination of care (as documented) at patient's floor/unit and/or counseling patient: Coding Level of Care Code 64436 Initial Inpt Care Lvl 2 Diagnoses Lactic acidemia E87.2 Acute and chronic respiratory failure with hypoxia J96.21 Chronic pulmonary aspiration T17.908A
--- NOTE | 2019-11-08 11:50 | Pharmacy Report ---
Pharmacy Glycemic Short Note 2 - Date of Service November 08, 2019 - Glycemic Short BSG Results (Last 24 hours): 11/07/19 11/07/19 11/08/19 17:32 21:45 07:30 Glucose POC Glucose 158 H 97 123 H 11/08/19 11/08/19 08:03 11:30 Glucose 115 H POC Glucose 99 OUTPATIENT ANTIDIABETIC REGIMEN: * metformin 1000 mg BID + amaryl 4 mg qAM * a1c = 6.5% (09/20/19) ASSESSMENT: * Jose J is s 79 yo T2DM male admitted with respiratory issues * He was started on antibiotics and given a one time dose of prednisone 40 mg on 7/2 PM * A one time dose of NPH 25 units SQ was ordered last evening to combat steroid induced hyperglycemia * No further basal insulin required at this time. Continue bolus insulin. Will loosen carb coverage based on BSG trending downward throughout the day. PLAN FOR INPATIENT GLYCEMIC CONTROL: * Hold outpatient oral diabetes medications * Basal insulin * none * Bolus insulin * NovoLog per scale ACHS or Q6hrs while NPO * Goal Range: Low 110 mg/dL - High 140 mg/dL * Correction Factor: 30 mg/dL/unit * Nutritional / Prandial insulin per carb ratio of 1 unit per 20 grams CHO consumed thank you
[2019-11-08] MEDS ORDERED: AZITHROMYCIN 250 MG TAB PO SCH (12:00)
--- NOTE | 2019-11-08 12:04 | Electrocardiogram Report ---
Test Reason : Blood Pressure : / mmHG Vent. Rate : 069 BPM Atrial Rate : 069 BPM P-R Int : 132 ms QRS Dur : 084 ms QT Int : 398 ms P-R-T Axes : 069 036 026 degrees QTc Int : 426 ms Normal sinus rhythm with sinus arrhythmia Minimal voltage criteria for LVH, may be normal variant Minor Nonspecific ST abnormality Abnormal ECG When compared with ECG of 07-NOV-2019 08:51, Sinus rhythm has replaced Atrial flutter HR has decreased by 31 bpm Confirmed by Paolo Fontenot ([id number]) on 11/08/2019 12:04:25 PM Referred By: REFERRED SELF Confirmed By:Paolo Fontenot
[2019-11-08] MEDS ORDERED: guaiFENesin 600 MG TABCR PO SCH (21:00)
--- NOTE | 2019-11-14 22:29 | Discharge Summary ---
Date of Service November 08, 2019 Admission HPI Per Admitting Provider Jose J Zurita is a 79 year old man with a past medical history significant for COPD (on home oxygen 2L at night, he tells me his baseline O2 is between 85 and 88 during the day time and he occasionally supplements with O2 during the day 2L when it drops below 85) HTN, Hypothyroidism, dyslipidemia, moderate cognitive impairment, paroxysmal A fibs, DM2 Presents emergency department with difficulty breathing. This patient was discharged with treatment for pneumonia in September 2019 he says he is not quite felt good since that time. He typically has an occasional cough. He continues to chew snuff. His is concerned that he is aspirating snuff as he keeps his snuff and while he does his nebulized medications at home. The does not think he coughs violently with any of this. The patient and both admit to noncompliance with his oxygen therapy and noncompliance with his thickening of his liquids as recommended by speech therapy. He also admits that he continues to smoke and chew snuff. She reports that he has been having cough. 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 His reports that he has not lost appetite. No loss of taste or smell. She reports he is lethargic. No chest pain. No recent travel. In the emergency department he does have a left lower lobe pneumonia leukocytosis and increased work of breathing on clinical examination. Principal Diagnosis left lower lobe pneumonia Discharge Exam The patient appeared well nourished and normally developed. Vital signs as documented. Head exam is normocephalic atraumatic no scleral icterus Neck is without JVD, thyromegaly, or carotid bruits. Lung exam has prolonged expiratory phase and musical wheezes on expiration Cardiac exam, irregularly irregular and tachycardic. Abdominal exam reveals normal bowel sounds, soft non tender, no masses Extremities are nonedematous and both pedal pulses are normal. Neurologic exam is alert and oriented, no focal loss of strength or sensation Skin is without bruises or rashes Psychologically is without concerns for anxiety or depression Discharge Data Allergies Allergy/AdvReac Type Severity Reaction Status Date / Time pollen extracts Allergy Mild CONGESTION Verified 07/08/20 11:12 Consultations 11/07/19 10:18 ED Decision to Admit Stat 11/07/19 17:23 Consult Pulmonary Rehabilitation Stat Consult Pulmonology Stat Hospital Course (1) Left lower lobe pneumonia: Patient presents with leukocytosis left lower lobe infiltrate increased work of breathing initially placed on Zosyn by the emergency room physician. His last pulmonary culture showed Pseudomonas patient be on cefepime 2 g every 8 sputum cultures are pending. Last hospital stay he was discharged on levofloxacin will have pulmonary reevaluate the patient in case he has persistent Pseudomonas colonization Previously Dr Rawls. Did perform bronchoscopy during his last admission in September 2018 findings were such Copious secretions/mucous plugs were found in the BHARTI bronchus. Biopsies were obtained to rule out endobronchial tumor - these returned negative prior to discharge. Oropharyngeal dysphagia: Video swallow test on 09/19 showed aspiration of thin liquids and significant esophageal dysmotility. Wykoff thick, slippery diet was recommended patient is agreeable to use this method in the hospital On day of discharge: Appreciate input from pulmonary Impression: 79-year-old male with chronic COPD and issues with bronchiectasis due to aspiration admitted with respiratory issues. He appears back to baseline currently. His chest x-ray is improved. Procalcitonin was negative. He is not requiring supplemental oxygen currently. Recommendations: 1. History of pneumonia: The patient's chest x-ray appears significantly improved. His procalcitonin was negative and I do not see clear evidence of a pneumonia. Exacerbation of bronchiectasis is possible however the patient feels markedly better currently after less than 24 hours of Zosyn. Will recheck sputum culture to see if Pseudomonas remains present. If he has issues with chronic colonization, consideration for inhaled tobramycin may be appropriate 2. COPD: I think it is okay to de-escalate the patient's antibiotics down to cover acute exacerbation of COPD. We will place him on azithromycin for 5 days. I think a 5-day burst of prednisone may be beneficial with regards to his wheezing. Continue inhalers in the form of Spiriva and Serevent or Anoro. 3. Would continue hypertonic saline as well as flutter valve. Mucinex 1200 mg twice a day can also be tried to see if this helps with pulmonary clearance. ok to discharge. (2) Acute and chronic respiratory failure with hypoxia: Patient typically follows with Dr. eason his COPD is described as moderate he has not been started on steroids at this time will continue nebulized medicat ions expectorants and chest physiotherapy. Patient is not chronically on oxygen at home 2 L with low sats in the high 80s has been resistant to more oxygen use in the past (3) Paroxysmal atrial fibrillation: Typically on diltiazem 240 mg a day, metoprolol tartrate 100 twice daily and apixaban. Will research whether flutter is been part of his arrhythmia complex. Rate is controlled at this time and no further intervention will be undertaken (4) Hypothyroidism (acquired): Remains on Synthroid therapy is on low-dose of 25 mcg a day (5) CAD (coronary artery disease): Patient remains on his antihypertensive medications as above but also continues aspirin atorvastatin (6) Type 2 diabetes mellitus: Typically takes glimepiride and metformin will be continued on glimepiride with sliding scale insulin for backup holding metformin (7) Seizure: Patient has a history of seizure disorder remains on Keppra 1000 twice daily (8) Abdominal aortic aneurysm (AAA), 30-34 mm diameter: This is noted for historical sake only his last ultrasound was in 2018 which showed 3.3 x 3 cm distal aortic dilation which was unchanged from a 2017 study Total Time Total Time Spent Total Time Spent (In Minutes): 32 Total Time Includes: Examination of the Patient, Discharge Planning and Medication Reconciliation Discharge Plan Discharge Items Patient Disposition: Home - Self-Care Reason For Visit: 111 PNEUMONIA Discharge Diagnosis: bronchiectasis Activity: Resume your previous activity Non-emergency contact: Primary Care Provider Call non-emergency contact if: you have any medication questions Follow-up/Referrals: Lorna Tucker DO [Primary Care Provider] - Diet: Regular Diet Texture: Easy to Chew Liquid Consistency: Wykoff thick Addtl Attending Provider Instructions: Chest x-ray appears significantly improved. We will place him on azithromycin for 5 days. Continue a 5-day burst of prednisone may be beneficial with regards to his wheezing. Continue inhalers in the form of Spiriva and Serevent or Anoro. Would continue hypertonic saline as well as flutter valve. Mucinex 1200 mg twice a day can also be tried to see if this helps with pulmonary clearance. Pending Studies at Discharge: No Stand-Alone Forms: My [facility] [employer], Smoking Cessation Medications and DC Order Prescriptions: New guaifenesin [Mucinex] 600 mg Tablet Extended Release 12hr 1,200 mg PO Q12 Qty: 20 RF: 0 azithromycin 250 mg tablet See Rx Instructions .ROUTE .COMPLEX Qty: 6 RF: 0 Continued Eliquis 5 mg tablet 5 mg PO BID Qty: 180 RF: 3 sertraline 100 mg tablet 100 mg PO QAM Qty: 90 RF: 2 levothyroxine [Synthroid] 25 mcg tablet 25 mcg PO QAM Qty: 90 RF: 1 glimepiride 2 mg tablet 4 mg PO QAM Qty: 180 RF: 1 metoprolol tartrate 100 mg tablet 100 mg PO BID Qty: 180 RF: 1 calcium carbonate-vitamin D3 600 mg(1,500mg) -400 unit tablet 2 tab PO HS RF: 0 lisinopril 20 mg tablet 20 mg PO HS Qty: 90 RF: 1 diltiazem HCl [Cartia XT] 240 mg capsule,extended release 24hr 240 mg PO HS Qty: 90 RF: 1 albuterol sulfate 2.5 mg /3 mL (0.083 %) solution for nebulization 2.5 mg INH QID PRN (Reason: Shortness Of Breath Or Wheezing) Qty: 360 RF: 11 sodium chloride 7 % solution for nebulization 4 ml INH BID Qty: 240 RF: 3 Trelegy Ellipta 100-62.5-25 mcg blister with device 1 inh INHALATION QAM Qty: 180 RF: 1 metformin 1,000 mg tablet 1,000 mg PO BIDM RF: 0 albuterol sulfate [Ventolin HFA] 90 mcg/actuation HFA aerosol inhaler 2 puffs INH Q4H PRN (Reason: Shortness Of Breath Or Wheezing) RF: 0 fluticasone propionate [Allergy Relief (fluticasone)] 50 mcg/actuation spray,suspension 1 - 2 sprays INTNAS DAILY RF: 0 atorvastatin [Lipitor] 40 mg tablet 40 mg PO HS RF: 0 cyanocobalamin (vitamin B-12) [Vitamin B-12] 1,000 mcg tablet 1,000 mcg PO HS RF: 0 aspirin [Aspir-81] 81 mg Tablet,Delayed Release (Dr/Ec) 81 mg PO BID RF: 0 montelukast 10 mg tablet 10 mg PO HS RF: 0 No Action levetiracetam [Keppra] 500 mg tablet 1,000 mg PO BID 90 Days Qty: 360 RF: 1 Discharge Orders: Discharge Order (Routine); Ordered 11/08/19 Ordered By: Low Salcedo/Other Patient Handouts: Managing Type 2 Diabetes Admission Data Admit Date/Time: 11/07/19 10:59 Attending Provider: Low Agudelo Admit Provider: Koffi Raymnudo Primary Care Provider: Lorna Tucker Other Providers: Koffi Raymundo ; Joseluis Eason Other Interventions: Discharge Summary Assessment (RN) Last Done: 11/08/19 18:06 DC Date/Time DO NOT enter until pt leaves facility: 11/08/19 19:15 Coding Level of Care Code D/C Day Management >30 mins Diagnoses Left lower lobe pneumonia J18.9 Pneumonia type: due to unspecified organism Acute and chronic respiratory failure with hypoxia J96.21 Paroxysmal atrial fibrillation I48.0 Hypothyroidism (acquired) E03.9 CAD (coronary artery disease) I25.10 Type 2 diabetes mellitus E11.9 Seizure R56.9 Abdominal aortic aneurysm (AAA), 30-34 mm diameter I71.4 Time Spent (min) 32
== END 2019-11-08 19:15 | disposition home or self-care (01) | DRG 193 ==
LOC: ED 08:48 → SUATTDRO 10:59 → 2W 10:59

== ENCOUNTER 2020-03-29 17:26 | Inpatient (IN) ==
[2020-03-29] MEDS ORDERED: ONDANSETRON INJ 2 MG/ML 2 ML VIAL IV STA (17:40)
[2020-03-29] MEDS ORDERED: SODIUM CHLORIDE 0.9% 1000ML 1,000 ML IV ONE (17:40)
--- NOTE | 2020-03-29 18:07 | Emergency Department Note ---
Impression & Plan Pneumonia, Hypoxia, A-fib ED Provider Note NAME: LUCIAN LOPEZ AGE: 79 SEX: M : 1940 ARRIVES VIA: Ambulance INFORMANT: Patient ED PROVIDER(S): Maximino Gandhi DO CHIEF COMPLAINT: Bilateral leg weakness HPI: Patient is a 79-year-old male with a past medical history of A. fib, COPD on apixaban who presents the ER for bilateral leg weakness. He notes he woke up this morning and his legs felt very weak. He had extreme difficulty walking. He denies any back pain. No headache or neck pain. No change in vision. No chest pain or shortness of breath. Admits to cough but this is unchanged in any way. Denies any dysuria, urgency or frequency. No numbness in the groin. He did vomit [address] in here. No other exacerbating or remitting f actors. Does admit that he was feeling weak all over. ROS: See above HPI for pertinent positives & negatives. A total of 10 systems reviewed and were otherwise negative. PAST MEDICAL HISTORY:See Below PAST SURGICAL HISTORY:See Below FAMILY HISTORY:See Below SOCIAL HISTORY:See Below HOME MEDICATIONS:See Below ALLERGIES:See Below VITALS:See Below PHYSICAL EXAMINATION: GENERAL: Sitting up in bed, alert, chronically ill-appearing, disheveled, nontoxic EYE EXAM: normal conjunctiva. PERRL and EOM's grossly intact. OROPHARYNX: Mask in place LUNGS: Diminished on the left. Normal chest wall mechanics HEART: no murmurs, S1 normal and S2 normal ABDOMEN: abdomen soft, non-tender, normo-active bowel sounds, no masses, no rebound or guarding. BACK: Back is symmetrical on inspection and there is no deformity, no midline tenderness, no CVA tenderness. SKIN: no rashes and no bruising UPPER EXTREMITIES: upper extremities are grossly normal. LOWER EXTREMITIES: Flexion-extension of the hips knees ankles and EHL intact bilaterally. DPs 2 out of 4. Gross sensation intact. Calves are equal bilateral NEURO EXAM: Normal sensorium, cranial nerves II-XII grossly intact, normal speech, no gross weakness of arms, no gross weakness of legs. MEDICAL DECISION MAKING: Patient is a 79-year-old male who presents the ER for weakness. Chronically wears 2 L nasal cannula at night secondary to COPD. IV was established blood work was obtained. He was found to be hypoxic in the ER. He takes apixaban and consequently PE was not pursued any further with normal calves. CBC shows a mild leukocytosis of 10.8 thousand. Mild anemia at 11. BMP with mild hyponatremia. LFTs bilirubin and creatinine was unremarkable. Lipase was normal. UA with small amount of ketones suggesting dehydration. Covid was negative. Chest x-ray does suggest a left-sided infiltrate. Patient was given IV antibiotics including Rocephin and azithromycin. He was updated bedside. This in combination with his hypoxia did recommend admission who is in agreement. CT abdomen pelvis confirms the infiltrates with a small bilateral effusion and a renal adenoma. CT lumbar spine was unremarkable with exception of an infrarenal aneurysm. Patient was updated admitted to the hospital for further work-up. Triage Nursing notes reviewed. Prior medical records reviewed Vital Signs: reviewed and remarkable for tachy Differential diagnosis: Infection, dehydration, metabolic abnormality, hypo/hyperglycemia, electrolyte disturbance, anemia, hypoxia, cardiac sources, intracerebral event, toxicologic, neurologic, as well as other pathologies. ER treatment provided: See below Diagnostics interpreted by me: ECG: Sinus rhythm A. fib rate 100 PVCs Normal axis Nonspecific ST wave changes in the inferior leads Specific ST wave depressions in the lateral leads Mild worsening of ST wave changes from November 2019 Cardiac Monitoring: An order was placed for continuous cardiac monitoring. The monitor shows a rate of 110 with Afib rhythm. Laboratory studies: As stated above and show below. Imaging studies: CT abdomen pelvis and CT lumbar spine as discussed above in [facility] Portable AP upright 1 view of the chest shows left lower lobe infiltrate Consultation(s): Discussed with Dr. Dickey for further evaluation ED COURSE: Procedures: none Critical Care: None Past Med/Surg History Medical History (Updated 03/29/20 @ 21:01 by Maximino Gandhi DO) Abdominal aortic aneurysm (AAA), 30-34 mm diameter Anxiety Arteriosclerotic coronary artery disease Asthma Atrial flutter DX [address] [place]LL[place] IN [place] Benign prostatic hyperplasia with urinary obstruction CAD (coronary artery disease) Cerebral cavernoma Chronic anticoagulation Chronic pulmonary aspiration COPD, moderate Depression Dyslipidemia History of acute bronchitis with bronchospasm History of sinusitis Hypertension Hypothyroidism (acquired) Mild cognitive impairment On home oxygen therapy AT NIGHT Osteoarthritis Osteoporosis Paroxysmal atrial fibrillation DX [address] CUELLAR IN [place] Seizure 01/29/19 - X2 ON THAT DAY AND WAS ADMITTED AND STARTED ON KEPPRA AND NO SEIZURE SINCE Seizure disorder (01/2019) TIA (transient ischemic attack) 2017 X 1 AND NONE SINCE Tremor HANDS Type 2 diabetes mellitus Surgical History H/O 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 Lynn 03/27/19 Hx of cardiac cath 2017 -- HEART CATH WITH STENT [facility] WITH DR CUELLAR LAST SEEN 12/20/2018 Family History Father Heart disease Other COPD (chronic obstructive pulmonary disease) Depression Family history non-contributory Denies family history of Ovarian cancer Prostate cancer Coronary heart disease Myocardial infarction Breast cancer Seizure Lung cancer Colorectal cancer Social History Smoking Status: Former smoker Tobacco Type: Cigarettes Cigarettes Per Day: 20-40; Number of Years Since Quit: 34; Second Hand Exposure: No; Hx Alcohol Use: No Hx Substance Use: No Preferred Language: Divehi Communication Ability: Effective Visual Impairment: No Limitations Hearing Ability: Use of Hearing Aid Strike Out Machine Operator Required: No Beliefs That Will Affect Care: None marital status: Current Living Situation: Spouse current occupational status: retired 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, 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[employer]) Feels Safe at Home: Yes Childhood Exposure to Second-Hand Smoke: Yes Diet Comment: regular caffeine: No during the past year weight has: remained stable Dental Care, Regularly: No Physical Activity Frequency: Does not Exercise Seatbelt Use: never Sunscreen Use: Yes Assistive Devices: None Allergies Allergies Allergy/AdvReac Type Severity Reaction Status Date / Time pollen extracts Allergy Mild CONGESTION Verified 03/29/20 20:45 Home Meds Home Medications Medication Instructions Recorded Confirmed aspirin [Aspir-81] 81 mg PO BID 02/02/18 03/29/20 calcium carbonate 600 mg (1,500 2 tab PO HS 01/16/19 03/29/20 mg)-vitamin D3 400 unit tablet albuterol sulfate [Ventolin HFA] 2 puffs INH Q4H PRN 09/18/19 03/29/20 fluticasone propionate [Allergy 1 - 2 sprays INTNAS DAILY PRN 09/18/19 03/29/20 Relief (fluticasone)] atorvastatin [Lipitor] 40 mg PO HS 11/07/19 03/29/20 cyanocobalamin (vitamin B-12) 1,000 mcg PO QAM 11/07/19 03/29/20 [Vitamin B-12] Previous Rx's Medication Instructions Recorded albuterol sulfate 2.5 mg INH QID PRN #360 ml 10/01/19 glimepiride 2 mg tablet 4 mg PO QAM #180 tab 10/10/19 metoprolol tartrate 100 mg tablet 100 mg PO BID #180 tab 10/16/19 diltiazem HCl 240 mg 240 mg PO HS #90 cap 10/22/19 capsule,extended release 24 hr lisinopril 20 mg tablet 20 mg PO HS #90 tab 10/22/19 guaifenesin [Mucinex] 1,200 mg PO Q12 #20 tab 11/08/19 levetiracetam 500 mg tablet 1,000 mg PO BID 90 Days #360 tab 11/15/19 metformin 1,000 mg tablet 1,000 mg PO BIDM #14 tab 11/18/19 fluticasone fur. 100 mcg-umeclid 1 inh INHALATION QAM #180 ea 01/02/20 62.5 mcg-vilant 25 mcg inhalat.powder sertraline 100 mg tablet 100 mg PO QAM #90 tab 01/09/20 montelukast 10 mg tablet 10 mg PO HS #90 tab 01/29/20 sodium chloride 7 % for 4 ml INH BID #240 ml 01/31/20 nebulization levothyroxine 25 mcg tablet 25 mcg PO QAM #90 tab 02/24/20 apixaban 5 mg tablet 5 mg PO BID #180 tab 03/11/20 Results & Data (ED) Vital Signs Vital Signs - 24 hr 03/29/20 17:34 03/29/20 17:45 03/29/20 17:48 Temperature 37.2 C Temperature Source Oral Pulse Rate 81 84 110 H Pulse Rate [Apical] 110 H Pulse Rate from SpO2 Sensor 106 H 92 H Respiratory Rate 28 H 23 22 Respiratory Effort / Characteristics Non-Labored Spontaneous Respiratory Depth Normal Respiratory Pattern Regular Blood Pressure 134/93 134/93 Blood Pressure [Right Arm] 134/93 Blood Pressure Mean 97 106 Blood Pressure Mean [Right Arm] 106 Pulse Oximetry 89 L 89 L 92 Oxygen Delivery Method Room Air Oxygen Flow Rate Sepsis Recent Fever Within 48 Hours No Sepsis New/Unexplained Change in Mental Status No Sepsis Action Taken by Nursing No Action Required 03/29/20 18:00 03/29/20 18:01 03/29/20 18:30 Temperature Temperature Source Pulse Rate 114 H 90 94 H Pulse Rate [Apical] Pulse Rate from SpO2 Sensor 112 H 106 H Respiratory Rate 22 22 23 Respiratory Effort / Characteristics Respiratory Depth Respiratory Pattern Blood Pressure 122/80 150/87 H Blood Pressure [Right Arm] Blood Pressure Mean 115 124 Blood Pressure Mean [Right Arm] Pulse Oximetry 90 93 Oxygen Delivery Method Nasal Cannula Nasal Cannula Oxygen Flow Rate 2 2 Sepsis Recent Fever Within 48 Hours Sepsis New/Unexplained Change in Mental Status Sepsis Action Taken by Nursing 03/29/20 18:31 03/29/20 19:00 03/29/20 19:57 Temperature Temperature Source Pulse Rate 114 H 108 H 113 H Pulse Rate [Apical] Pulse Rate from SpO2 Sensor 108 H 110 H Respiratory Rate 19 19 20 Respiratory Effort / Characteristics Respiratory Depth Respiratory Pattern Blood Pressure 148/90 H 142/81 H Blood Pressure [Right Arm] Blood Pressure Mean 102 86 Blood Pressure Mean [Right Arm] Pulse Oximetry 96 95 Oxygen Delivery Method Nasal Cannula Oxygen Flow Rate 2 Sepsis Recent Fever Within 48 Hours Sepsis New/Unexplained Change in Mental Status Sepsis Action Taken by Nursing 03/29/20 20:00 03/29/20 20:01 03/29/20 20:30 Temperature Temperature Source Pulse Rate 97 H 105 H 115 H Pulse Rate [Apical] Pulse Rate from SpO2 Sensor 90 110 H 112 H Respiratory Rate 17 19 19 Respiratory Effort / Characteristics Respiratory Depth Respiratory Pattern Blood Pressure 134/78 114/89 Blood Pressure [Right Arm] Blood Pressure Mean 96 102 Blood Pressure Mean [Right Arm] Pulse Oximetry 96 98 91 Oxygen Delivery Method Nasal Cannula Nasal Cannula Nasal Cannula Oxygen Flow Rate 2 2 2 Sepsis Recent Fever Within 48 Hours Sepsis New/Unexplained Change in Mental Status Sepsis Action Taken by Nursing 03/29/20 20:31 03/29/20 21:00 11/22/20 21:01 Temperature Temperature Source Pulse Rate 122 H 108 H 111 H Pulse Rate [Apical] Pulse Rate from SpO2 Sensor 126 H 92 H 97 H Respiratory Rate 20 20 24 Respiratory Effort / Characteristics Respiratory Depth Respiratory Pattern Blood Pressure 146/68 H Blood Pressure [Right Arm] Blood Pressure Mean 105 Blood Pressure Mean [Right Arm] Pulse Oximetry 97 96 95 Oxygen Delivery Method Nasal Cannula Nasal Cannula Nasal Cannula Oxygen Flow Rate 2 3 3 Sepsis Recent Fever Within 48 Hours Sepsis New/Unexplained Change in Mental Status Sepsis Action Taken by Nursing Laboratory Data Result diagrams: 03/29/20 16:03 03/29/20 17:03 Lab Results 03/29/20 03/29/20 03/29/20 Range/Units 16:03 16:03 17:03 WBC 10.83 H (4.8-10.8) K/uL RBC 4.64 L (4.7-6.1) M/uL Hgb 11.6 L (14.0-18.0) g/dL Hct 37.1 L (42-52) % MCV 80.0 (80-100) fL MCH 25.0 (25-34) pg MCHC 31.3 L (32-36) g/dL RDW Std Deviation 54.4 H (36.4-46.3) fL RDW Coeff of Ashu 18.6 H (11.5-14.5) % Plt Count 255 (130-400) K/uL MPV 10.0 (7.4-10.4) fL Immature Gran % (Auto) 0.1 % Neut % (Auto) 70.7 % Lymph % (Auto) 6.7 % [place] % (Auto) 15.1 % Eos % (Auto) 6.8 % Baso % (Auto) 0.6 % Neut # (Auto) 7.66 H (1.4-6.5) K/uL Lymph # (Auto) 0.73 L (1.2-3.4) K/uL [place] # (Auto) 1.63 H (0.11-0.59) K/uL Eos # (Auto) 0.74 H (0-0.5) K/uL Baso # (Auto) 0.06 (0-0.2) K/uL Immature Gran # (Auto) 0.01 (0.00-0.02) K/uL Sodium 133 L (136-145) mmol/L Potassium 4.0 (3.5-5.1) mmol/L Chloride 103 (98-107) mmol/L Carbon Dioxide 24 (21-32) mmol/L Anion Gap 6.0 (3-11) BUN 17 (7-18) mg/dl Creatinine 0.89 (0.6-1.4) mg/dl Est Cr Clr Drug Dosing 60.9 ml/min Est GFR ( Amer) 94.9 Est GFR (Non-Af Amer) 81.9 BUN/Creatinine Ratio 18.8 (10-20) Glucose 77 (70-99) mg/dl Calcium 8.9 (8.5-10.1) mg/dl Total Bilirubin 0.3 (0.2-1) mg/dl AST 19 (15-37) U/L ALT 22 (12-78) U/L Alkaline Phosphatase 89 (45-117) U/L Total Protein 7.6 (6.4-8.2) gm/dl Albumin 3.3 L (3.4-5.0) gm/dl Globulin 4.3 H (2.5-4.0) gm/dl Albumin/Globulin Ratio 0.8 L (0.9-2) Lipase 88 (73-393) U/L Urine Color Urine Appearance (Clear) Urine pH (4.5-7.5) Ur Specific Perry (1.000-1.030) Urine Protein (Negative) Urine Glucose (UA) (Negative) Urine Ketones (Negative) Urine Blood (Negative) Urine Nitrite (Negative) Urine Bilirubin (Negative) Urine Urobilinogen (Negative) Ur Leukocyte Esterase (Negative) Urine WBC (Auto) (0-5) /hpf Urine RBC (Auto) (0-4) /hpf U Hyaline Cast (Auto) (0-5) /lpf U Epithel Cells (Auto) (0-5) /lpf Urine Bacteria (Auto) (Negative) COVID-19 Eval Order SARS-CoV-2, RNA, NAAT (NEGATIVE) 03/29/20 03/29/20 03/29/20 Range/Units 19:10 19:58 19:58 WBC (4.8-10.8) K/uL RBC (4.7-6.1) M/uL Hgb (14.0-18.0) g/dL Hct (42-52) % MCV (80-100) fL MCH (25-34) pg MCHC (32-36) g/dL RDW Std Deviation (36.4-46.3) fL RDW Coeff of Ashu (11.5-14.5) % Plt Count (130-400) K/uL MPV (7.4-10.4) fL Immature Gran % (Auto) % Neut % (Auto) % Lymph % (Auto) % [place] % (Auto) % Eos % (Auto) % Baso % (Auto) % Neut # (Auto) (1.4-6.5) K/uL Lymph # (Auto) (1.2-3.4) K/uL [place] # (Auto) (0.11-0.59) K/uL Eos # (Auto) (0-0.5) K/uL Baso # (Auto) (0-0.2) K/uL Immature Gran # (Auto) (0.00-0.02) K/uL Sodium (136-145) mmol/L Potassium (3.5-5.1) mmol/L Chloride (98-107) mmol/L Carbon Dioxide (21-32) mmol/L Anion Gap (3-11) BUN (7-18) mg/dl Creatinine (0.6-1.4) mg/dl Est Cr Clr Drug Dosing ml/min Est GFR ( Amer) Est GFR (Non-Af Amer) BUN/Creatinine Ratio (10-20) Glucose (70-99) mg/dl Calcium (8.5-10.1) mg/dl Total Bilirubin (0.2-1) mg/dl AST (15-37) U/L ALT (12-78) U/L Alkaline Phosphatase (45-117) U/L Total Protein (6.4-8.2) gm/dl Albumin (3.4-5.0) gm/dl Globulin (2.5-4.0) gm/dl Albumin/Globulin Ratio (0.9-2) Lipase (73-393) U/L Urine Color Yellow Urine Appearance Clear (Clear) Urine pH 6.5 (4.5-7.5) Ur Specific Perry 1.016 (1.000-1.030) Urine Protein Trace H (Negative) Urine Glucose (UA) Negative (Negative) Urine Ketones Trace H (Negative) Urine Blood Negative (Negative) Urine Nitrite Negative (Negative) Urine Bilirubin Negative (Negative) Urine Urobilinogen Negative (Negative) Ur Leukocyte Esterase Negative (Negative) Urine WBC (Auto) 0 (0-5) /hpf Urine RBC (Auto) 0-4 (0-4) /hpf U Hyaline Cast (Auto) 0 (0-5) /lpf U Epithel Cells (Auto) 5-10 H (0-5) /lpf Urine Bacteria (Auto) Negative (Negative) COVID-19 Eval Order Covid19 [facility]Now [facility] SARS-CoV-2, RNA, NAAT NEGATIVE (NEGATIVE) Administered Medications Discontinued Medications Azithromycin (Azithromycin 250 Mg Tab) 500 mg PO NOW ONE Stop: 03/29/20 19:51 Last Admin: 03/29/20 20:37 Dose: 500 mg Documented by: [id number] Sodium Chloride (Nss 1000ml) 1,000 mls @ 999 mls/hr IV .Q1H1M ONE Stop: 03/29/20 18:40 Last Infusion: 03/29/20 19:12 Dose: 0 mls/hr Documented by: [id number] Admin: 03/29/20 18:11 Dose: 999 mls/hr Documented by: [id number] Ceftriaxone Sodium (Rocephin) 1,000 mg in 50 mls @ 100 mls/hr IV NOW STA Stop: 03/29/20 20:19 Last Infusion: 03/29/20 21:18 Dose: 0 mls/hr Documented by: [id number] Admin: 03/29/20 20:36 Dose: 100 mls/hr Documented by: [id number] Ioversol (Ioversol 100ml) 94 ml IV ONCE ONE Stop: 03/29/20 19:44 Last Admin: 03/29/20 19:44 Dose: 94 ml Documented by: [id number] Ondansetron HCl (Ondansetron Inj 2 Mg/Ml 2 Ml Vial) 4 mg IV NOW STA Stop: 03/29/20 17:41 Last Admin: 03/29/20 18:12 Dose: 4 mg Documented by: [id number] Discharge Plan Visit Data Chief Complaint: Leg Weakness, Bilateral ED Provider: Maximino Gandhi Discharge Problem: Pneumonia, Hypoxia, A-fib Forms Stand Alone Forms: [facility] Prescriptions Prescriptions: No Action glimepiride 2 mg tablet 4 mg PO QAM Qty: 180 RF: 1 metoprolol tartrate 100 mg tablet 100 mg PO BID Qty: 180 RF: 1 levetiracetam [Keppra] 500 mg tablet 1,000 mg PO BID 90 Days Qty: 360 RF: 1 metformin 1,000 mg tablet 1,000 mg PO BIDM Qty: 14 RF: 0 Trelegy Ellipta 100-62.5-25 mcg blister with device 1 inh INHALATION QAM Qty: 180 RF: 1 sertraline 100 mg tablet 100 mg PO QAM Qty: 90 RF: 1 montelukast 10 mg tablet 10 mg PO HS Qty: 90 RF: 1 sodium chloride 7 % solution for nebulization 4 ml INH BID Qty: 240 RF: 3 levothyroxine [Synthroid] 25 mcg tablet 25 mcg PO QAM Qty: 90 RF: 1 Eliquis 5 mg tablet 5 mg PO BID Qty: 180 RF: 3 calcium carbonate-vitamin D3 600 mg(1,500mg) -400 unit tablet 2 tab PO HS RF: 0 lisinopril 20 mg tablet 20 mg PO HS Qty: 90 RF: 1 diltiazem HCl [Cartia XT] 240 mg capsule,extended release 24hr 240 mg PO HS Qty: 90 RF: 1 albuterol sulfate 2.5 mg /3 mL (0.083 %) solution for nebulization 2.5 mg INH QID PRN (Reason: Shortness Of Breath Or Wheezing) Qty: 360 RF: 11 albuterol sulfate [Ventolin HFA] 90 mcg/actuation HFA aerosol inhaler 2 puffs INH Q4H PRN (Reason: Shortness Of Breath Or Wheezing) RF: 0 fluticasone propionate [Allergy Relief (fluticasone)] 50 mcg/actuation spray,suspension 1 - 2 sprays INTNAS DAILY PRN (Reason: Nasal Congestion) RF: 0 atorvastatin [Lipitor] 40 mg tablet 40 mg PO HS RF: 0 cyanocobalamin (vitamin B-12) [Vitamin B-12] 1,000 mcg tablet 1,000 mcg PO QAM RF: 0 guaifenesin [Mucinex] 600 mg Tablet Extended Release 12hr 1,200 mg PO Q12 Qty: 20 RF: 0 aspirin [Aspir-81] 81 mg Tablet,Delayed Release (Dr/Ec) 81 mg PO BID RF: 0 Discharge Problem: Pneumonia Qualifiers: Pneumonia type: due to unspecified organism Laterality: left Lung location: lower lobe of lung Qualified Code(s): J18.9 - Pneumonia, unspecified organism A-fib Qualifiers: Atrial fibrillation type: unspecified Qualified Code(s): I48.91 - Unspecified atrial fibrillation
[2020-03-29 18:13] LABS: Basophils # (auto) 0.06 K/uL (0-0.2); Basophils % (auto) 0.6 %; Eosinophils # (auto) 0.74 K/uL (0-0.5); Eosinophils % (auto) 6.8 %; Hematocrit (blood only) 37.1 % (42-52); Hemoglobin 11.6 g/dL (14.0-18.0); Immature Granulocytes # (auto) 0.01 K/uL (0.00-0.02); Immature Granulocytes % (auto) 0.1 %; Lymphocytes # (auto) 0.73 K/uL (1.2-3.4); Lymphocytes % (auto) 6.7 %; Mean Corpuscular Hgb Conc 31.3 g/dL (32-36); Monocytes # (auto) 1.63 K/uL (0.11-0.59); Monocytes % (auto) 15.1 %; Neutrophils # (auto) 7.66 K/uL (1.4-6.5); Neutrophils % (auto) 70.7 %; Platelet Count 255 K/uL (130-400); RDW Coefficient of Variation 18.6 % (11.5-14.5); RDW Standard Deviation 54.4 fL (36.4-46.3); Red Blood Count 4.64 M/uL (4.7-6.1); White Blood Count 10.83 K/uL (4.8-10.8)
--- NOTE | 2020-03-29 18:46 | XRay Report ---
XR chest 1V portable CLINICAL HISTORY: Weakness COMPARISON STUDY: 11/07/2019 FINDINGS: The study is rotated. There is left lung volume loss. There are left mid and lower lung zon e airspace opacities. There is no failure. There is mild soft tissue prominence of the right paratrac heal region.[ IMPRESSION: 1. Left lung volume loss 2. Left mid and lower lung zone airspace opacities 3. Radiographic follow-up recommended due to the unexplained left lung volume loss. ACT 112: Negative or not required by law. Electronically signed by: Braulio Vazquez M.D. 03/29/2020 6:45 PM
[2020-03-29 18:53] LABS: Albumin Globulin Ratio 0.8 (0.9-2); Albumin Level 3.3 gm/dl (3.4-5.0); BUN Creatinine Ratio 18.8 (10-20); Bilirubin,Total 0.3 mg/dl (0.2-1); Calcium 8.9 mg/dl (8.5-10.1); Creatinine Clr Calc Pharmacy 60.9 ml/min; Est GFR (African American) 94.9; Est GFR (Non-African American) 81.9; Globulin 4.3 gm/dl (2.5-4.0); Total Protein 7.6 gm/dl (6.4-8.2)
[2020-03-29 19:20] LABS: Appearance Urine Clear (Clear); Bacteria Urine Automated Negative (Negative); Bilirubin Urine Negative (Negative); Blood Urine Negative (Negative); Cast Urine Automated 0 /lpf (0-5); Color Urine Yellow; Glucose Urine UA Negative (Negative); Ketones Urine Trace (Negative); Leukocyte Esterase Urine Negative (Negative); Nitrite Urine Negative (Negative); Protein Urine Trace (Negative); RBC Urine Automated 0-4 /hpf (0-4); Specific Gravity Urine 1.016 (1.000-1.030); Urobilinogen Urine Negative (Negative); WBC Urine Automated 0 /hpf (0-5); pH Urine 6.5 (4.5-7.5)
[2020-03-29] MEDS ORDERED: IOVERSOL 100ml IV ONE (19:43)
[2020-03-29] MEDS ORDERED: cefTRIAXone SODIUM 1,000 MG/50 ML BAG IV STA (19:50)
[2020-03-29] MEDS ORDERED: AZITHROMYCIN 250 MG TAB PO ONE (19:50)
--- NOTE | 2020-03-29 19:59 | CT Scan Report ---
CT abd pelvis IV con only CLINICAL HISTORY: Abdominal pain and leg weakness COMPARISON STUDY: PET CT scan dated 02/25/2019 TECHNIQUE: The patient was scanned in a dynamic helical fashion during intravenous administration of 94 cc of Optiray 320 A dose lowering technique was utilized adhering to the principles of ALARA. CT DOSE: 328.51 mGy.cm FINDINGS: Lower chest: There is respiratory motion artifact. There is a trace left pleural effusion. There are lingular and left lower lobe airspace opacities. There is lower lobe bronchial wall thickening and mu cous plugging. Liver: The contrast-enhanced liver is normal in size, contour, and attenuation. There is no intrahepa tic biliary ductal dilatation. The hepatic veins and portal veins are patent. Gallbladder: Unremarkable. Spleen: Normal in size and attenuation. Pancreas: There is a persistent 2.5 cm cystic pancreatic head lesion. Adrenal glands: There is a 2 cm right adrenal gland nodule. This likely represents an adenoma Kidneys: There is a 1 cm right renal cyst. There are no solid renal masses. There is no hydronephrosi s. Bowel: There are no transition zones to indicate bowel obstruction. There is colonic diverticulosis. There is no evidence of acute diverticulitis. There are no findings to indicate acute appendicitis. Peritoneum: There is no intraperitoneal free air or abdominal ascites. Vasculature: There is a 32 mm infrarenal abdominal aortic aneurysm. Adenopathy: None. Pelvic viscera: There is mild prostatomegaly Skeletal structures: No destructive osseous lesions are seen. IMPRESSION: 1. No acute intra-abdominal or pelvic findings 2. No evidence of bowel obstruction. No evidence of free air 3. No evidence of acute appendicitis. No evidence of acute diverticulitis 4. Stable 2 cm right adrenal nodule consistent with adenoma 5. 32 mm infrarenal abdominal aortic aneurysm 6. Stable 2.5 cm cystic pancreatic head lesion 7. Trace left pleural effusion. Left lingular and lower lobe airspace opacities. Lower lobe bronchial wall thickening and mucous plugging. ACT 112: Negative or not required by law. Electronically signed by: Braulio Vazquez M.D. 03/29/2020 7:58 PM
--- NOTE | 2020-03-29 20:04 | CT Scan Report ---
CT lumbar spine wo con CT DOSE: CLINICAL HISTORY: leg weakness TECHNIQUE: Helical images were acquired in transverse plane. Reformatted sagittal and coronal images were reviewed. A dose lowering technique was utilized adhering to the principles of ALARA. CONTRAST: No contrast was administered COMPARISON STUDY: None. FINDINGS: L1-2 level: There is no evidence of significant disc bulge or focal herniation. There is no evidence of spinal or foraminal stenosis. L2-3 level: There is a mild circumferential disc bulge. There is no significant spinal or foraminal s tenosis L3-4 level: There is a mild circumferential disc bulge. There is mild trigone or spinal canal narrowi ng. There is no significant foraminal stenosis L4-5 level: There is a circumferential disc bulge. There is mild to moderate spinal stenosis. There i s mild left-sided foraminal narrowing L5-S1 level: There is no evidence of significant disc bulge or focal herniation. There is no evidence of spinal or foraminal stenosis. There are no acute fractures or traumatic subluxations There is a 33 mm infrarenal abdominal aortic aneurysm There are few nonspecific scattered sclerotic densities within the skeleton, then the largest of whic h measures 6 mm within the left iliac IMPRESSION: 1. No acute fractures or traumatic subluxations 2. 33 mm infrarenal abdominal aortic aneurysm 3. Multilevel spondylytic changes with spinal stenosis most pronounced at the L4-5 level (moderate). ACT 112: Negative or not required by law. There is no significant spinal or foraminal stenosis. Electronically signed by: Braulio Vazquez M.D. 03/29/2020 8:03 PM
--- NOTE | 2020-03-29 21:00 | History & Physical Report ---
Date of Service March 29, 2020 Assessment & Plan (1) Pneumonia: Suspect LLL PNA. Patient with vague complaints of weakness, dry cough. Pulmonary exam with focal crackles, CXR with possible consolidation. Patient currently afebrile, HD stable, no respiratory distress, adequate oxygenation on 2L NC. Covid-19 testing NEGATIVE. Patient with history of chronic aspiration. He is low risk by CURB-65 scoring, however, given his advanced age, weakness and difficulty ambulating will admit to hospital for care -Admit to medical -Ceftriaxone and Azithromycin -Follow cultures -Aspiration precautions -Check Procalcitonin -Continue home Guaifenesin -Albuterol PRN Present on Admission?: Yes (2) A-fib: Currently 91bpm, rate controlled. Anticoagulated on Eliquis. History of [place] [address] Cedillo -Continue Metoprolol 100mg po BID -Continue Diltiazem 240mg po qHS -Continue Eliquis 5mg po BID Present on Admission?: Yes (3) Seizure disorder: Chronic. Stable. Last seizure in 01/2019 -Continue Keppra 1000mg po BID (4) Hypothyroidism (acquired): Chronic. Stable. TSH=4.12 in July 2019 -Continue Synthroid 25mcg po qAM -Check TSH in AM Present on Admission?: Yes (5) COPD, moderate: Chronic. Stable. No SOB, wheeze at present. Patient with known lung nodules and hamartoma of lung. He has seen pulmonary in the past -Continue Trelegy -Nebs PRN -Nocturnal O2 Present on Admission?: Yes (6) CAD (coronary artery disease): Patient denies chest pain. No acute EKG changes of ischemia -Continue ASA 81mg po BID -Continue Atorvastatin -Continue Metoprolol -Continue Lisinopril Present on Admission?: Yes (7) Depression: Chronic. Stable -Continue Sertraline 100mg po qAM Present on Admission?: Yes (8) Dyslipidemia: Chronic. Stable. Last lipid panel 07/2019 at goal -Continue Atorvastatin 40mg po qHS Present on Admission?: Yes (9) Type 2 diabetes mellitus: Chronic. Stable and well controlled. Last UfyQ8P=2.3 on 11/08/19. BS=77 at present -Hold oral agents -Lantus 6u BID -ISS F/E/N - NSS at 100mL/hr x 2 liters, monitor electrolytes, CC/AHA diet as tolerated with aspiration precautions. PT/OT evaluation for weakness Ppx - On Eliquis Code - Full per discussion with patient Dispo - Observation to medical floor Present on Admission?: Yes History of Present Illness Chief Complaint: weakness, inability to walk Primary Care Provider: Lorna Tucker DO Jose J Zurita is a pleasant 79yo C male presenting from home with weakness, inability to ambulate. Patient reports he developed bilateral LE weakness yesterday morning after getting out of bed. He has been having difficulty ambulating - uses a 3-point cane at home. He has a chronic, dry cough which is unchanged. Otherwise, denies fever/chills/fatigue/sweats/CP/SOB. He had some nausea with vomiting when EMS arrived this evening. No diarrhea. Patient denies contact with Covid-19 positive individuals. ER rapid Covid-19 antigen testing NEGATIVE ER Course: Azithromycin, Ceftriaxone, Zofran Allergies Allergy/AdvReac Type Severity Reaction Status Date / Time pollen extracts Allergy Mild CONGESTION Verified 03/29/20 20:45 Home Medications Medication Instructions Recorded Confirmed Type aspirin [Aspir-81] 81 mg PO BID 02/02/18 03/29/20 History calcium carbonate 600 mg (1,500 2 tab PO HS 01/16/19 03/29/20 History mg)-vitamin D3 400 unit tablet albuterol sulfate [Ventolin HFA] 2 puffs INH Q4H PRN 09/18/19 03/29/20 History fluticasone propionate [Allergy 1 - 2 sprays INTNAS DAILY PRN 09/18/19 03/29/20 History Relief (fluticasone)] albuterol sulfate 2.5 mg INH QID PRN #360 ml 10/01/19 03/29/20 Rx glimepiride 2 mg tablet 4 mg PO QAM #180 tab 10/10/19 03/29/20 Rx metoprolol tartrate 100 mg tablet 100 mg PO BID #180 tab 10/16/19 03/29/20 Rx diltiazem HCl 240 mg 240 mg PO HS #90 cap 10/22/19 03/29/20 Rx capsule,extended release 24 hr lisinopril 20 mg tablet 20 mg PO HS #90 tab 06/16/20 11/22/20 Rx atorvastatin [Lipitor] 40 mg PO HS 11/07/19 03/29/20 History cyanocobalamin (vitamin B-12) 1,000 mcg PO QAM 11/07/19 03/29/20 History [Vitamin B-12] guaifenesin [Mucinex] 1,200 mg PO Q12 #20 tab 11/08/19 03/29/20 Rx levetiracetam 500 mg tablet 1,000 mg PO BID 90 Days #360 tab 11/15/19 03/29/20 Rx metformin 1,000 mg tablet 1,000 mg PO BIDM #14 tab 11/18/19 03/29/20 Rx fluticasone fur. 100 mcg-umeclid 1 inh INHALATION QAM #180 ea 01/02/20 03/29/20 Rx 62.5 mcg-vilant 25 mcg inhalat.powder sertraline 100 mg tablet 100 mg PO QAM #90 tab 01/09/20 03/29/20 Rx montelukast 10 mg tablet 10 mg PO HS #90 tab 01/29/20 03/29/20 Rx sodium chloride 7 % for 4 ml INH BID #240 ml 01/31/20 03/29/20 Rx nebulization levothyroxine 25 mcg tablet 25 mcg PO QAM #90 tab 02/24/20 03/29/20 Rx apixaban 5 mg tablet 5 mg PO BID #180 tab 03/11/20 03/29/20 Rx Past Med/Surg History Medical History (Updated 03/30/20 @ 02:22 by Patricia Dickey DO) Abdominal aortic aneurysm (AAA), 30-34 mm diameter Anxiety Arteriosclerotic coronary artery disease Asthma Atrial flutter DX [address] [place] Benign prostatic hyperplasia with urinary obstruction CAD (coronary artery disease) Cerebral cavernoma Chronic anticoagulation Chronic pulmonary aspiration COPD, moderate Depression Dyslipidemia History of acute bronchitis with bronchospasm History of sinusitis Hypertension Hypothyroidism (acquired) Mild cognitive impairment On home oxygen therapy AT NIGHT Osteoarthritis Osteoporosis Paroxysmal atrial fibrillation DX [address] [place]LL[place] Seizure 01/29/19 - X2 ON THAT DAY AND WAS ADMITTED AND STARTED ON KEPPRA AND NO SEIZURE SINCE Seizure disorder (01/2019) TIA (transient ischemic attack) 2017 X 1 AND NONE SINCE Tremor HANDS Type 2 diabetes mellitus Surgical History H/O 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 Lynn 03/27/19 Hx of cardiac cath 2017 -- HEART CATH WITH STENT 6 [facility] WITH DR CUELLAR LAST SEEN 12/20/2018 Family History Father Heart disease Other COPD (chronic obstructive pulmonary disease) Depression Family history non-contributory Denies family history of Ovarian cancer Prostate cancer Coronary heart disease Myocardial infarction Breast cancer Seizure Lung cancer Colorectal cancer Social History Smoking Status: Former smoker Tobacco Type: Cigarettes Cigarettes Per Day: 20-40; Number of Years Since Quit: 34; Second Hand Exposure: No; Do You Dip or Chew Tobacco: Yes (Currently uses pouches.); Tobacco Cessation Education Requested by Patient: Yes Hx Alcohol Use: No Hx Substance Use: No Preferred Language: Israeli Communication Ability: Effective Visual Impairment: No Limitations Hearing Ability: Use of Hearing Aid Testing Engineer Required: No Beliefs That Will Affect Care: None marital status: Current Living Situation: Spouse current occupational status: retired 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 Review of Systems Review of Systems: All systems reviewed & are unremarkable except as noted in HPI & below +Nausea with vomiting prior to arrival. Now resolved Physical Exam Physical Exam: General: patient resting comfortably, NAD, non-toxic in appearance, AA&O x 4 Skin: warm, dry, intact, no rashes or lesions HEENT: NC/AT, PERRL, EOMI, anicteric sclera, conjunctiva without injection, external ear normal to inspection and nontender, nares patent, moist mucus membranes, dentition intact, no oropharyngeal lesions, neck supple, trachea midline, no LAD, no thyromegaly, no JVD Heart: +S1/S2, irregularly irregular, tachycardic at 105 bpm, no m/r/g Lungs: equal air entry bilaterally, +Crackles with focal wheezing noted at left lateral lung, +dry cough Abd: +BS, soft, NT/ND, no masses/organomegaly/ascites Ext: warm, 2+ pulses in UE/LE bilaterally, no clubbing/cyanosis or edema Neuro: nonfocal, patient AA&O x 4, speech intact, no facial droop, moving all extremities on command with equal strength 5/5 Results & Data Results & Data ([facility]) Vital Signs (Past 12 Hours) Vital Signs Temp Pulse Pulse Resp BP BP Pulse Ox 03/29/20 20:31 122 H 20 97 03/29/20 20:30 115 H 19 114/89 91 03/29/20 20:01 105 H 19 98 03/29/20 20:00 97 H 17 134/78 96 03/29/20 19:57 113 H 20 142/81 H 95 03/29/20 19:00 108 H 19 148/90 H 96 03/29/20 18:31 114 H 19 03/29/20 18:30 94 H 23 150/87 H 03/29/20 18:01 90 22 93 03/29/20 18:00 114 H 22 122/80 90 03/29/20 17:48 37.2 C 110 H 110 H 22 134/93 134/93 92 03/29/20 17:45 84 23 89 L 03/29/20 17:34 81 28 H 134/93 89 L Laboratory Results Lab Results 03/29/20 03/29/20 03/29/20 Range/Units 16:03 16:03 16:03 WBC 10.83 H (4.8-10.8) K/uL RBC 4.64 L (4.7-6.1) M/uL Hgb 11.6 L (14.0-18.0) g/dL Hct 37.1 L (42-52) % MCV 80.0 (80-100) fL MCH 25.0 (25-34) pg MCHC 31.3 L (32-36) g/dL RDW Std Deviation 54.4 H (36.4-46.3) fL RDW Coeff of Ashu 18.6 H (11.5-14.5) % Plt Count 255 (130-400) K/uL MPV 10.0 (7.4-10.4) fL Immature Gran % (Auto) 0.1 % Neut % (Auto) 70.7 % Lymph % (Auto) 6.7 % Emanuel % (Auto) 15.1 % Eos % (Auto) 6.8 % Baso % (Auto) 0.6 % Neut # (Auto) 7.66 H (1.4-6.5) K/uL Lymph # (Auto) 0.73 L (1.2-3.4) K/uL Emanuel # (Auto) 1.63 H (0.11-0.59) K/uL Eos # (Auto) 0.74 H (0-0.5) K/uL Baso # (Auto) 0.06 (0-0.2) K/uL Immature Gran # (Auto) 0.01 (0.00-0.02) K/uL Sodium 133 L (136-145) mmol/L Potassium (3.5-5.1) mmol/L Chloride 103 (98-107) mmol/L Carbon Dioxide 24 (21-32) mmol/L Anion Gap 6.0 (3-11) BUN 17 (7-18) mg/dl Creatinine 0.89 (0.6-1.4) mg/dl Est Cr Clr Drug Dosing 60.9 ml/min Est GFR ( Amer) 94.9 Est GFR (Non-Af Amer) 81.9 BUN/Creatinine Ratio 18.8 (10-20) Glucose 77 (70-99) mg/dl POC Glucose (70-99) mg/dl Calcium 8.9 (8.5-10.1) mg/dl Phosphorus 3.3 (2.5-4.9) mg/dl Magnesium 1.5 L (1.8-2.4) mg/dl Total Bilirubin 0.3 (0.2-1) mg/dl AST (15-37) U/L ALT 22 (12-78) U/L Alkaline Phosphatase 89 (45-117) U/L Total Protein 7.6 (6.4-8.2) gm/dl Albumin 3.3 L (3.4-5.0) gm/dl Globulin 4.3 H (2.5-4.0) gm/dl Albumin/Globulin Ratio 0.8 L (0.9-2) Lipase 88 (73-393) U/L Urine Color Urine Appearance (Clear) Urine pH (4.5-7.5) Ur Specific [place] (1.000-1.030) Urine Protein (Negative) Urine Glucose (UA) (Negative) Urine Ketones (Negative) Urine Blood (Negative) Urine Nitrite (Negative) Urine Bilirubin (Negative) Urine Urobilinogen (Negative) Ur Leukocyte Esterase (Negative) Urine WBC (Auto) (0-5) /hpf Urine RBC (Auto) (0-4) /hpf U Hyaline Cast (Auto) (0-5) /lpf U Epithel Cells (Auto) (0-5) /lpf Urine Bacteria (Auto) (Negative) COVID-19 Eval Order SARS-CoV-2, RNA, NAAT (NEGATIVE) 03/29/20 03/29/20 03/29/20 Range/Units 17:03 19:10 19:58 WBC (4.8-10.8) K/uL RBC (4.7-6.1) M/uL Hgb (14.0-18.0) g/dL Hct (42-52) % MCV (80-100) fL MCH (25-34) pg MCHC (32-36) g/dL RDW Std Deviation (36.4-46.3) fL RDW Coeff of Ashu (11.5-14.5) % Plt Count (130-400) K/uL MPV (7.4-10.4) fL Immature Gran % (Auto) % Neut % (Auto) % Lymph % (Auto) % Emanuel % (Auto) % Eos % (Auto) % Baso % (Auto) % Neut # (Auto) (1.4-6.5) K/uL Lymph # (Auto) (1.2-3.4) K/uL Emanuel # (Auto) (0.11-0.59) K/uL Eos # (Auto) (0-0.5) K/uL Baso # (Auto) (0-0.2) K/uL Immature Gran # (Auto) (0.00-0.02) K/uL Sodium (136-145) mmol/L Potassium 4.0 (3.5-5.1) mmol/L Chloride (98-107) mmol/L Carbon Dioxide (21-32) mmol/L Anion Gap (3-11) BUN (7-18) mg/dl Creatinine (0.6-1.4) mg/dl Est Cr Clr Drug Dosing ml/min Est GFR ( Amer) Est GFR (Non-Af Amer) BUN/Creatinine Ratio (10-20) Glucose (70-99) mg/dl POC Glucose (70-99) mg/dl Calcium (8.5-10.1) mg/dl Phosphorus (2.5-4.9) mg/dl Magnesium (1.8-2.4) mg/dl Total Bilirubin (0.2-1) mg/dl AST 19 (15-37) U/L ALT (12-78) U/L Alkaline Phosphatase (45-117) U/L Total Protein (6.4-8.2) gm/dl Albumin (3.4-5.0) gm/dl Globulin (2.5-4.0) gm/dl Albumin/Globulin Ratio (0.9-2) Lipase (73-393) U/L Urine Color Yellow Urine Appearance Clear (Clear) Urine pH 6.5 (4.5-7.5) Ur Specific [place] 1.016 (1.000-1.030) Urine Protein Trace H (Negative) Urine Glucose (UA) Negative (Negative) Urine Ketones Trace H (Negative) Urine Blood Negative (Negative) Urine Nitrite Negative (Negative) Urine Bilirubin Negative (Negative) Urine Urobilinogen Negative (Negative) Ur Leukocyte Esterase Negative (Negative) Urine WBC (Auto) 0 (0-5) /hpf Urine RBC (Auto) 0-4 (0-4) /hpf U Hyaline Cast (Auto) 0 (0-5) /lpf U Epithel Cells (Auto) 5-10 H (0-5) /lpf Urine Bacteria (Auto) Negative (Negative) COVID-19 Eval Order Covid19 [facility] SARS-CoV-2, RNA, NAAT (NEGATIVE) 03/29/20 03/29/20 Range/Units 19:58 23:36 WBC (4.8-10.8) K/uL RBC (4.7-6.1) M/uL Hgb (14.0-18.0) g/dL Hct (42-52) % MCV (80-100) fL MCH (25-34) pg MCHC (32-36) g/dL RDW Std Deviation (36.4-46.3) fL RDW Coeff of Ashu (11.5-14.5) % Plt Count (130-400) K/uL MPV (7.4-10.4) fL Immature Gran % (Auto) % Neut % (Auto) % Lymph % (Auto) % Emanuel % (Auto) % Eos % (Auto) % Baso % (Auto) % Neut # (Auto) (1.4-6.5) K/uL Lymph # (Auto) (1.2-3.4) K/uL Emanuel # (Auto) (0.11-0.59) K/uL Eos # (Auto) (0-0.5) K/uL Baso # (Auto) (0-0.2) K/uL Immature Gran # (Auto) (0.00-0.02) K/uL Sodium (136-145) mmol/L Potassium (3.5-5.1) mmol/L Chloride (98-107) mmol/L Carbon Dioxide (21-32) mmol/L Anion Gap (3-11) BUN (7-18) mg/dl Creatinine (0.6-1.4) mg/dl Est Cr Clr Drug Dosing ml/min Est GFR ( Amer) Est GFR (Non-Af Amer) BUN/Creatinine Ratio (10-20) Glucose (70-99) mg/dl POC Glucose 83 (70-99) mg/dl Calcium (8.5-10.1) mg/dl Phosphorus (2.5-4.9) mg/dl Magnesium (1.8-2.4) mg/dl Total Bilirubin (0.2-1) mg/dl AST (15-37) U/L ALT (12-78) U/L Alkaline Phosphatase (45-117) U/L Total Protein (6.4-8.2) gm/dl Albumin (3.4-5.0) gm/dl Globulin (2.5-4.0) gm/dl Albumin/Globulin Ratio (0.9-2) Lipase (73-393) U/L Urine Color Urine Appearance (Clear) Urine pH (4.5-7.5) Ur Specific [place] (1.000-1.030) Urine Protein (Negative) Urine Glucose (UA) (Negative) Urine Ketones (Negative) Urine Blood (Negative) Urine Nitrite (Negative) Urine Bilirubin (Negative) Urine Urobilinogen (Negative) Ur Leukocyte Esterase (Negative) Urine WBC (Auto) (0-5) /hpf Urine RBC (Auto) (0-4) /hpf U Hyaline Cast (Auto) (0-5) /lpf U Epithel Cells (Auto) (0-5) /lpf Urine Bacteria (Auto) (Negative) COVID-19 Eval Order SARS-CoV-2, RNA, NAAT NEGATIVE (NEGATIVE) Diagnostic Findings XR chest 1V portable CLINICAL HISTORY: Weakness COMPARISON STUDY: 11/07/2019 FINDINGS: The study is rotated. There is left lung volume loss. There are left mid and lower lung zone airspace opacities. There is no failure. There is mild soft tissue prominence of the right paratracheal region.[ IMPRESSION: 1. Left lung volume loss 2. Left mid and lower lung zone airspace opacities 3. Radiographic follow-up recommended due to the unexplained left lung volume loss. ACT 112: Negative or not required by law. Electronically signed by: Braulio Vazquez M.D. 03/29/2020 6:45 PM Dictated: 03/29/201841Transcribed: 03/29/201841 CT lumbar spine wo con CT DOSE: CLINICAL HISTORY: leg weakness TECHNIQUE: Helical images were acquired in transverse plane. Reformatted sagittal and coronal images were reviewed. A dose lowering technique was utilized adhering to the principles of ALARA. CONTRAST: No contrast was administered COMPARISON STUDY: None. FINDINGS: L1-2 level: There is no evidence of significant disc bulge or focal herniation. There is no evidence of spinal or foraminal stenosis. L2-3 level: There is a mild circumferential disc bulge. There is no significant spinal or foraminal stenosis L3-4 level: There is a mild circumferential disc bulge. There is mild trigone or spinal canal narrowing. There is no significant foraminal stenosis L4-5 level: There is a circumferential disc bulge. There is mild to moderate spinal stenosis. There is mild left-sided foraminal narrowing L5-S1 level: There is no evidence of significant disc bulge or focal herniation. There is no evidence of spinal or foraminal stenosis. There are no acute fractures or traumatic subluxations There is a 33 mm infrarenal abdominal aortic aneurysm There are few nonspecific scattered sclerotic densities within the skeleton, then the largest of which measures 6 mm within the left iliac IMPRESSION: 1. No acute fractures or traumatic subluxations 2. 33 mm infrarenal abdominal aortic aneurysm 3. Multilevel spondylytic changes with spinal stenosis most pronounced at the L4-5 level (moderate). ACT 112: Negative or not required by law. There is no significant spinal or foraminal stenosis. Electronically signed by: Braulio Vazquez M.D. 03/29/2020 8:03 PM Dictated: 03/29/201957Transcribed: 03/29/201958 ========= CT abd pelvis IV con only CLINICAL HISTORY: Abdominal pain and leg weakness COMPARISON STUDY: PET CT scan dated 02/25/2019 TECHNIQUE: The patient was scanned in a dynamic helical fashion during intravenous administration of 94 cc of Optiray 320 A dose lowering technique was utilized adhering to the principles of ALARA. CT DOSE: 328.51 mGy.cm FINDINGS: Lower chest: There is respiratory motion artifact. There is a trace left pleural effusion. There are lingular and left lower lobe airspace opacities. There is lower lobe bronchial wall thickening and mucous plugging. Liver: The contrast-enhanced liver is normal in size, contour, and attenuation. There is no intrahepatic biliary ductal dilatation. The hepatic veins and portal veins are patent. Gallbladder: Unremarkable. Spleen: Normal in size and attenuation. Pancreas: There is a persistent 2.5 cm cystic pancreatic head lesion. Adrenal glands: There is a 2 cm right adrenal gland nodule. This likely represents an adenoma Kidneys: There is a 1 cm right renal cyst. There are no solid renal masses. There is no hydronephrosis. Bowel: There are no transition zones to indicate bowel obstruction. There is colonic diverticulosis. There is no evidence of acute diverticulitis. There are no findings to indicate acute appendicitis. Peritoneum: There is no intraperitoneal free air or abdominal ascites. Vasculature: There is a 32 mm infrarenal abdominal aortic aneurysm. Adenopathy: None. Pelvic viscera: There is mild prostatomegaly Skeletal structures: No destructive osseous lesions are seen. IMPRESSION: 1. No acute intra-abdominal or pelvic findings 2. No evidence of bowel obstruction. No evidence of free air 3. No evidence of acute appendicitis. No evidence of acute diverticulitis 4. Stable 2 cm right adrenal nodule consistent with adenoma 5. 32 mm infrarenal abdominal aortic aneurysm 6. Stable 2.5 cm cystic pancreatic head lesion 7. Trace left pleural effusion. Left lingular and lower lobe airspace opacities. Lower lobe bronchial wall thickening and mucous plugging. ACT 112: Negative or not required by law. Electronically signed by: Braulio Vazquez M.D. 03/29/2020 7:58 PM Dictated: 03/29/201952Transcribed: 03/29/201952 ECG Additional Comments: EKG with atrial fibrillation at 100bpm, occasional wide complex beats ?aberhancy vs PVCs, QRS=88, TOg=957, nonspecific TW changes PG Care Time/CCT Total # of Minutes Spent Total Time Spent with Patient: Total time spent is greater than 50% in coordination of care (as documented) at patient's floor/unit and/or counseling patient: Coding Level of Care Code 47603 OBS Care - Level 3 Diagnoses Pneumonia J18.9 Laterality: left Lung location: lower lobe of lung Pneumonia type: due to unspecified organism A-fib I48.91 Atrial fibrillation type: unspecified Seizure disorder G40.909 Hypothyroidism (acquired) E03.9 COPD, moderate J44.9 CAD (coronary artery disease) I25.10 Coronary Disease-Associated Artery/Lesion type: [place] artery [place] vs. 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 transplanted heart: [place] chin heart Associated angina: without angina Qualified Code(s): I25.10 - Atherosclerotic heart disease of ak chin coronary artery without angina pectoris (3) A-fib Atrial fibrillation type: unspecified Qualified Code(s): I48.91 - Unspecified atrial fibrillation (4) Depression Depression Type: unspecified Qualified Code(s): F32.9 - Major depressive disorder, single episode, unspecified (5) Pneumonia Laterality: left Lung location: lower lobe of lung Pneumonia type: due to unspecified organism Qualified Code(s): J18.9 - Pneumonia, unspecified organism
[2020-03-29] MEDS ORDERED: DOCUSATE SODIUM 100 MG CAP PO PRN (22:14)
[2020-03-29] MEDS ORDERED: GLUCOSE 40% GEL 15 GM TUBE PO PRN (22:14)
[2020-03-29] MEDS ORDERED: ACETAMINOPHEN 325 MG TAB PO PRN (22:14)
[2020-03-29] MEDS ORDERED: GLUCAGON FOR INJ 1 MG VIAL SQ PRN (22:14)
[2020-03-29] MEDS ORDERED: CARBOHYDRATES FOR HYPOGLYCEMIA PO PRN (22:14)
[2020-03-29] MEDS ORDERED: DEXTROSE 50% 50 ML SYRINGE IV PRN (22:14)
[2020-03-29] MEDS ORDERED: GLUCOSE 10 TABS/TUBE PO PRN (22:14)
[2020-03-29] MEDS ORDERED: ONDANSETRON INJ 2 MG/ML 2 ML VIAL IV PRN (22:14)
[2020-03-29 22:46] LABS: Magnesium 1.5 mg/dl (1.8-2.4); Phosphorus 3.3 mg/dl (2.5-4.9)
[2020-03-29] MEDS: INSULIN ASPART 100 UNITS/ML 3 ML PEN SC SCH (23:37)
[2020-03-29] MEDS: INSULIN GLARGINE SOLOSTAR 100 UNITS/ML 3 ML PEN SC SCH (23:38)
[2020-03-29] MEDS: SODIUM CHLORIDE 0.9% 1000ML 1,000 ML IV SCH (23:39)
[2020-03-30] MEDS ORDERED: ALBUTEROL HFA 8 GM INHALER INH PRN (01:54)
[2020-03-30] MEDS: LEVOTHYROXINE SODIUM 25 MCG TABLET PO SCH (06:09)
[2020-03-30 07:46] LABS: Basophils # (auto) 0.04 K/uL (0-0.2); Basophils % (auto) 0.6 %; Eosinophils # (auto) 0.42 K/uL (0-0.5); Hematocrit (blood only) 35.4 % (42-52); Hemoglobin 11.2 g/dL (14.0-18.0); Immature Granulocytes # (auto) 0.01 K/uL (0.00-0.02); Immature Granulocytes % (auto) 0.1 %; Lymphocytes # (auto) 0.92 K/uL (1.2-3.4); Lymphocytes % (auto) 13.2 %; Mean Corpuscular Hemoglobin 25.3 pg (25-34); Mean Corpuscular Hgb Conc 31.6 g/dL (32-36); Mean Corpuscular Volume 80.1 fL (80-100); Mean Platelet Volume 9.8 fL (7.4-10.4); Monocytes # (auto) 1.58 K/uL (0.11-0.59); Monocytes % (auto) 22.7 %; Neutrophils # (auto) 3.99 K/uL (1.4-6.5); Neutrophils % (auto) 57.4 %; Platelet Count 225 K/uL (130-400); RDW Coefficient of Variation 18.6 % (11.5-14.5); RDW Standard Deviation 54.4 fL (36.4-46.3); Red Blood Count 4.42 M/uL (4.7-6.1); White Blood Count 6.96 K/uL (4.8-10.8)
--- NOTE | 2020-03-30 07:52 | Hospitalist Progress Note ---
Date of Service March 30, 2020 Assessment & Plan (1) Pneumonia: Jose J Zurita is a 79-year-old gentleman admitted for suspected LLL PNA. Has a medical history of afib, seizure disorder, T2DM, hypothyroidism, COPD, CAD, depression. Patient with history of chronic aspiration. Patient with vague complaints of weakness, dry cough. Covid-19 testing NEGATIVE. Pneumonia - Ceftriaxone 1g IV daily - Azithromycin 500mg IV daily - Follow cultures - Aspiration precautions - WBC: 6.96 - Procalcitonin: <0.05 - Continue home Guaifenesin - Albuterol PRN - PT/OT consult: Pt has generalized weakness and is at high risk for falls. He would benefit from rehab with PT/OT services following this admission. - Follow AM CBC Atrial fibrillation - Currently rate-controlled - Anticoagulated on Eliquis. History of [place] [address] Cedillo - Continue Metoprolol 100mg PO BID - Continue Diltiazem 240mg PO qHS - Continue Eliquis 5mg PO BID Seizure disorder - Last seizure in 01/2019 - Continue Keppra 1000mg po BID Hypothyroidism - TSH 1.7 - Continue Synthroid 25mcg PO daily COPD Chronic. Stable. No SOB, wheeze at present. Patient with known lung nodules and hamartoma of lung. He has seen pulmonary in the past - Continue Trelegy - Nebs PRN - Nocturnal O2 CAD Patient denies chest pain. No acute EKG changes of ischemia - Continue ASA 81mg PO BID - Continue Atorvastatin 40mg PO HS - Continue Metoprolol 100mg PO BID - Continue Lisinopril 20mg PO HS Depression -Continue Sertraline 100mg PO qAM Type II DM - Last [id number]=8.3 on 11/08/19 - Hold oral agents - Lantus 6u BID - ISS - Follow AM BMP FENGI: NSS at 100mL/hr x 2 liters, CC/HH diet as tolerated with aspiration precautions DVT Ppx: Eliquis 5mg PO BID Code - Full Code Dispo: Med/Surg (2) A-fib: (3) Seizure disorder: (4) Hypothyroidism (acquired): (5) COPD, moderate: (6) CAD (coronary artery disease): (7) Depression: (8) Dyslipidemia: (9) Type 2 diabetes mellitus: Admission and Anticipated Discharge Date Admission Date: March 29, 2020 Supervising Physician Co-Signing Physician Notes I personally examined the patient and verified all varela points of history and ex am, discussed case, and agree with decision making with Dr Garibay. feeling better than last night. hadnt worked with PT/OT yet, did feel OK getting up to the bathroom. vitals noted nad heent nc at mmm breathing unlabored but L lower lung field diminished w faint rhonchi otherwise clear maybe slightly quiet throughout but no other adventitious sounds weakness - appearing related to pneumonia CAP POA - zithromax/rocephin. since prior risk for aspiration - asking speech to see again. does appear improving. PT/OT eval and treat, follow O2 needs. otherwise as above Subjective Pt feeling much better than yesterday. Denies fever, chills, SOB, CP, palpitations, n/v, diarrhea. He mentions he has been able to walk without difficulties and does not feel as weak as when admitted. Review of Systems Review of Systems: All systems reviewed & are unremarkable except as noted in Subjective Physical Exam Constitutional: WD/WN, vitals as above no acute distress Respiratory: no respiratory distress and no labored breathing Auscultation: + diminished lung sounds (Left lower) and + rhonchi (faint, left lower) Cardiovascular: RRR, no murmur, no edema Heart Sounds: normal S1 and normal S2; no gallop, no murmur and no cardiac rub Gastrointestinal (Abdomen): normal bowel sounds, soft, nontender, no hepatosplenomegaly Skin: no rashes, warm and dry Psychiatric: A+Ox3, euthymic affect Results & Data Results & Data ([facility]) Vital Signs (Past 12 Hours) Vital Signs Temp Pulse Pulse Pulse Resp BP BP 03/30/20 07:06 36.9 C 84 18 03/30/20 03:12 36.7 C 64 16 135/79 03/30/20 00:27 37.0 C 91 H 18 03/29/20 22:14 36.6 C 110 H 16 152/73 H 03/29/20 21:30 109 H 20 138/87 03/29/20 21:02 105 H 22 03/29/20 21:01 111 H 24 146/68 H 03/29/20 21:00 108 H 20 03/29/20 20:31 122 H 20 03/29/20 20:30 115 H 19 114/89 03/29/20 20:01 105 H 19 03/29/20 20:00 97 H 17 134/78 03/29/20 19:57 113 H 20 142/81 H BP Pulse Ox 03/30/20 07:06 160/83 H 90 03/30/20 03:12 91 03/30/20 00:27 126/69 93 03/29/20 22:14 92 03/29/20 21:30 92 03/29/20 21:02 96 03/29/20 21:01 95 03/29/20 21:00 96 03/29/20 20:31 97 03/29/20 20:30 91 03/29/20 20:01 98 03/29/20 20:00 96 03/29/20 19:57 95 Resident Activity Tracking Resident Involvement: Resident Care Provided Care Provided: Adult Hospital Medicine (1) Pneumonia Laterality: left Lung location: lower lobe of lung Pneumonia type: due to unspecified organism Qualified Code(s): J18.9 - Pneumonia, unspecified organism (2) A-fib Atrial fibrillation type: unspecified Qualified Code(s): I48.91 - Unspecified atrial fibrillation (3) CAD (coronary artery disease) Coronary Disease-Associated Artery/Lesion type: [place] artery [place] vs. 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
[2020-03-30 08:27] LABS: BUN Creatinine Ratio 12.5 (10-20); Calcium 8.8 mg/dl (8.5-10.1); Creatinine Clr Calc Pharmacy 70.9 ml/min; Est GFR (African American) 100.2; Est GFR (Non-African American) 86.5; Potassium 3.9 mmol/L (3.5-5.1)
[2020-03-30 08:37] LABS: Thyroid Stimulating Hormone 1.7 uIu/ml (0.300-4.500)
[2020-03-30] MEDS: ASPIRIN 81 MG ECTAB PO SCH ×2 (09:08→20:22)
[2020-03-30] MEDS: SERTRALINE HCL 100 MG TABLET PO SCH (09:08)
[2020-03-30] MEDS: APIXABAN 5 MG TABLET PO SCH ×2 (09:09→20:24)
[2020-03-30] MEDS: levETIRAcetam 500 MG TAB PO SCH ×2 (09:09→20:25)
[2020-03-30] MEDS: FLUTICASONE FUROATE 100MCG 14 PUFFS/INHALER INH SCH (09:09)
[2020-03-30] MEDS: METOPROLOL TARTRATE 100 MG TAB PO SCH ×2 (09:09→20:25)
[2020-03-30] MEDS: guaiFENesin 600 MG TABCR PO SCH ×2 (09:09→20:26)
[2020-03-30] MEDS: UMECLIDINIUM/VILANTEROL 62.5/25MCG 7 PUFFS/INHALER INH SCH (09:10)
[2020-03-30] MEDS: INSULIN ASPART 100 UNITS/ML 3 ML PEN SC SCH ×4 (09:15→20:30)
[2020-03-30] MEDS: INSULIN GLARGINE SOLOSTAR 100 UNITS/ML 3 ML PEN SC SCH ×2 (09:16→20:31)
[2020-03-30] MEDS: SODIUM CHLORIDE 0.9% 1000ML 1,000 ML IV SCH (09:17)
--- NOTE | 2020-03-30 16:14 | Billing Data ---
Date of Service March 30, 2020 Coding Level of Care Code 37833 Subseq Obs Care Lvl 3
[2020-03-30] MEDS ORDERED: cefTRIAXone SODIUM 1,000 MG in DEXTROSE 5% 50 ML IV SCH (20:00)
[2020-03-30] MEDS ORDERED: MONTELUKAST SODIUM 10 MG TABLET PO SCH (21:00)
[2020-03-30] MEDS ORDERED: dilTIAZem HCL 240 MG CAPCR PO SCH (21:00)
[2020-03-30] MEDS ORDERED: ATORVASTATIN 40 MG TAB PO SCH (21:00)
[2020-03-30] MEDS ORDERED: lisinopril 20 MG TAB PO SCH (21:00)
[2020-03-30] MEDS ORDERED: AZITHROMYCIN 500 MG in DEXTROSE 5% 250 ML IV SCH (22:00)
[2020-03-31] MEDS: LEVOTHYROXINE SODIUM 25 MCG TABLET PO SCH (05:22)
--- NOTE | 2020-03-31 05:36 | Electrocardiogram Report ---
Test Reason : Blood Pressure : / mmHG Vent. Rate : 100 BPM Atrial Rate : 234 BPM P-R Int : 000 ms QRS Dur : 088 ms QT Int : 384 ms P-R-T Axes : 000 041 027 degrees QTc Int : 495 ms Poor data quality, interpretation may be adversely affected Initially sinus bradycardia then Atrial fibrillation with premature ventricular or aberrantly condu cted complexes Nonspecific ST and T wave abnormality Abnormal ECG When compared with ECG of 08-NOV-2019 06:53, Atrial fibrillation is now Present Confirmed by Edgar Lal ([id number]) on 03/31/2020 5:36:33 AM Referred By: REFERRED SELF Confirmed By:Edgar Lal
[2020-03-31 08:17] LABS: Basophils # (auto) 0.02 K/uL (0-0.2); Basophils % (auto) 0.4 %; Eosinophils # (auto) 0.23 K/uL (0-0.5); Eosinophils % (auto) 4.5 %; Hematocrit (blood only) 39.7 % (42-52); Hemoglobin 12.4 g/dL (14.0-18.0); Immature Granulocytes # (auto) 0.01 K/uL (0.00-0.02); Immature Granulocytes % (auto) 0.2 %; Lymphocytes % (auto) 21.3 %; Mean Corpuscular Hemoglobin 25.1 pg (25-34); Mean Corpuscular Hgb Conc 31.2 g/dL (32-36); Mean Corpuscular Volume 80.4 fL (80-100); Mean Platelet Volume 9.2 fL (7.4-10.4); Monocytes # (auto) 1.42 K/uL (0.11-0.59); Monocytes % (auto) 27.5 %; Neutrophils # (auto) 2.38 K/uL (1.4-6.5); Neutrophils % (auto) 46.1 %; Platelet Count 202 K/uL (130-400); RDW Coefficient of Variation 18.7 % (11.5-14.5); RDW Standard Deviation 55.2 fL (36.4-46.3); Red Blood Count 4.94 M/uL (4.7-6.1); White Blood Count 5.16 K/uL (4.8-10.8)
[2020-03-31] MEDS ORDERED: POLYETHYLENE (MIRALAX) 17 GM PACK PO PRN (08:24)
[2020-03-31] MEDS ORDERED: ALUMINUM/MAGNESIUM SUSP 30 ML UDC PO PRN (08:24)
[2020-03-31] MEDS ORDERED: MAGNESIUM HYDROXIDE SUSP 30 ML UDC PO PRN (08:24)
[2020-03-31 08:45] LABS: BUN Creatinine Ratio 13.3 (10-20); Creatinine Clr Calc Pharmacy 61.4 ml/min; Est GFR (African American) 94.5; Est GFR (Non-African American) 81.5; Potassium 3.9 mmol/L (3.5-5.1)
[2020-03-31] MEDS: SERTRALINE HCL 100 MG TABLET PO SCH (09:03)
[2020-03-31] MEDS: APIXABAN 5 MG TABLET PO SCH (09:03)
[2020-03-31] MEDS: guaiFENesin 600 MG TABCR PO SCH (09:03)
[2020-03-31] MEDS: METOPROLOL TARTRATE 100 MG TAB PO SCH (09:03)
[2020-03-31] MEDS: levETIRAcetam 500 MG TAB PO SCH (09:03)
[2020-03-31] MEDS: UMECLIDINIUM/VILANTEROL 62.5/25MCG 7 PUFFS/INHALER INH SCH (09:04)
[2020-03-31] MEDS: FLUTICASONE FUROATE 100MCG 14 PUFFS/INHALER INH SCH (09:04)
[2020-03-31] MEDS: ASPIRIN 81 MG ECTAB PO SCH (09:04)
[2020-03-31] MEDS: INSULIN GLARGINE SOLOSTAR 100 UNITS/ML 3 ML PEN SC SCH (09:06)
[2020-03-31] MEDS: INSULIN ASPART 100 UNITS/ML 3 ML PEN SC SCH ×3 (09:08→16:39)
--- NOTE | 2020-03-31 10:13 | Hospitalist Progress Note ---
Date of Service March 31, 2020 Assessment & Plan (1) Pneumonia: Jose J Zurita is a 79-year-old gentleman admitted for suspected LLL PNA. Has a medical history of afib, seizure disorder, T2DM, hypothyroidism, COPD, CAD, depression. Patient with history of chronic aspiration. Patient with vague complaints of weakness, dry cough. Covid-19 testing NEGATIVE. Pneumonia - Ceftriaxone 1g IV daily - Azithromycin 500mg IV daily - Blood cultures: no growth in 24 hours - Aspiration precautions - WBC: 5.16 - Procalcitonin: <0.05 (03/30) - Continue home Guaifenesin - Albuterol PRN - PT/OT consult: Pt has generalized weakness and is at high risk for falls. He would benefit from rehab with PT/OT services following this admission. - Per CM note, pt's prefers him to be d/c home with home health services--will follow CM recs - Follow AM CBC Atrial fibrillation - Currently rate-controlled - Anticoagulated on Eliquis. History of [place] [address] Cedillo - Continue Metoprolol 100mg PO BID - Continue Diltiazem 240mg PO qHS - Continue Eliquis 5mg PO BID Seizure disorder - Last seizure in 01/2019 - Continue Keppra 1000mg po BID Hypothyroidism - TSH 1.7 - Continue Synthroid 25mcg PO daily COPD Chronic. Stable. No SOB, wheeze at present. Patient with known lung nodules and hamartoma of lung. He has seen pulmonary in the past - Continue Trelegy - Nebs PRN - Nocturnal O2 CAD Patient denies chest pain. No acute EKG changes of ischemia - Continue ASA 81mg PO BID - Continue Atorvastatin 40mg PO HS - Continue Metoprolol 100mg PO BID - Continue Lisinopril 20mg PO HS Depression -Continue Sertraline 100mg PO qAM Type II DM - Last [id number]=9.3 on 11/08/19 - Hold oral agents - Lantus 6u BID - ISS - Follow AM BMP FENGI: NSS at 100mL/hr x 2 liters, CC/HH diet as tolerated with aspiration precautions DVT Ppx: Eliquis 5mg PO BID Code - Full Code Dispo: Med/Surg (2) A-fib: (3) Seizure disorder: (4) Hypothyroidism (acquired): (5) COPD, moderate: (6) CAD (coronary artery disease): (7) Depression: (8) Dyslipidemia: (9) Type 2 diabetes mellitus: Admission and Anticipated Discharge Date Admission Date: March 31, 2020 Subjective No acute events overnight. Patient sitting comfortably in bed, about to have breakfast. Says he feels well and does not have nay SOB, some cough with minimal sputum. Denies CP, palpitations, fever, chills, n/v, abd pain, diarrhea. I mention to him that OT suggested SNF placement after discharge but he does not seem open to the idea. Believes he does not need it. I explained to him that he had complained of weakness on admission and it would be best for him to have some time to build his strength back up, he understands but does not believe he needs it. We agreed to continue discussing the matter later. Review of Systems Review of Systems: All systems reviewed & are unremarkable except as noted in Subjective Physical Exam Constitutional: WD/WN, vitals as above no acute distress Respiratory: no respiratory distress and no labored breathing Auscultation: + diminished lung sounds (Left lower) and + rhonchi (faint, left lower) Cardiovascular: RRR, no murmur, no edema Heart Sounds: normal S1 and normal S2; no gallop, no murmur and no cardiac rub Gastrointestinal (Abdomen): normal bowel sounds, soft, nontender, no hepatosplenomegaly Skin: no rashes, warm and dry Psychiatric: A+Ox3, euthymic affect Results & Data Results & Data ([facility]) Vital Signs (Past 12 Hours) Vital Signs Temp Pulse Resp BP Pulse Ox 03/31/20 07:08 36.7 C 79 18 137/82 96 03/30/20 23:28 98 03/30/20 23:25 37.5 C 57 L 18 109/68 88 L (1) Pneumonia Laterality: left Lung location: lower lobe of lung Pneumonia type: due to unspecified organism Qualified Code(s): J18.9 - Pneumonia, unspecified organism (2) A-fib Atrial fibrillation type: unspecified Qualified Code(s): I48.91 - Unspecified atrial fibrillation (3) CAD (coronary artery disease) Coronary Disease-Associated Artery/Lesion type: [place] artery [place] vs. transplanted heart: [place] heart Associated angina: without angina Qualified Code(s): I25.10 - Atherosclerotic heart disease of [place] coronary artery without angina pectoris (4) Depression Depression Type: unspecified Qualified Code(s): F32.9 - Major depressive disorder, single episode, unspecified (5) Type 2 diabetes mellitus Diabetes mellitus retirement insulin use: without retirement use Diabetes mellitus complication status: without complication Qualified Code(s): E11.9 - Type 2 diabetes mellitus without complications
--- NOTE | 2020-03-31 16:14 | Discharge Summary ---
Date of Service March 31, 2020 Admission HPI Per Admitting Provider Jose J Zurita is a pleasant 79yo C male presenting from home with weakness, inability to ambulate. Patient reports he developed bilateral LE weakness yesterday morning after getting out of bed. He has been having difficulty ambulating - uses a 3-point cane at home. He has a chronic, dry cough which is unchanged. Otherwise, denies fever/chills/fatigue/sweats/CP/SOB. He had some nausea with vomiting when EMS arrived this evening. No diarrhea. Patient denies contact with Covid-19 positive individuals. ER rapid Covid-19 antigen testing NEGATIVE ER Course: Azithromycin, Ceftriaxone, Zofran Admission Exam Per Admitting Provider General: patient resting comfortably, NAD, non-toxic in appearance, AA&O x 4 Skin: warm, dry, intact, no rashes or lesions HEENT: NC/AT, PERRL, EOMI, anicteric sclera, conjunctiva without injection, external ear normal to inspection and nontender, nares patent, moist mucus membranes, dentition intact, no oropharyngeal lesions, neck supple, trachea midline, no LAD, no thyromegaly, no JVD Heart: +S1/S2, irregularly irregular, tachycardic at 105 bpm, no m/r/g Lungs: equal air entry bilaterally, +Crackles with focal wheezing noted at left lateral lung, +dry cough Abd: +BS, soft, NT/ND, no masses/organomegaly/ascites Ext: warm, 2+ pulses in UE/LE bilaterally, no clubbing/cyanosis or edema Neuro: nonfocal, patient AA&O x 4, speech intact, no facial droop, moving all extremities on command with equal strength 5/5 Principal Diagnosis Pneumonia, weakness Discharge Exam Constitutional WD/WN, vitals as above no acute distress Respiratory normal respiratory effort; no respiratory distress and no labored breathing Auscultation: + rhonchi (Left lower) Cardiovascular RRR, no murmur, no edema Gastrointestinal (Abdomen) normal bowel sounds, soft, nontender, no hepatosplenomegaly Skin no rashes, warm and dry Psychiatric Orientation: alert and oriented to person; + not oriented to place and + not oriented to time Discharge Data Allergies Allergy/AdvReac Type Severity Reaction Status Date / Time pollen extracts Allergy Mild CONGESTION Verified 03/29/20 20:45 Consultations 03/29/20 20:15 ED Decision to Admit Stat Ordered Studies 03/29/20 17:39 CT abd pelvis IV con only Stat CT lumbar spine wo con Stat Hospital Course (1) Pneumonia: Jose J Zurita is a 79-year-old gentleman admitted for suspected LLL PNA. Has a medical history of afib, seizure disorder, T2DM, hypothyroidism, COPD, CAD, depression. Patient with history of chronic aspiration. Patient with vague complaints of weakness, dry cough. Covid-19 testing NEGATIVE. Pneumonia - Ceftriaxone 1g IV daily while admitted - Azithromycin 500mg IV daily while admitted - Blood cultures: no growth in 24 hours - Aspiration precautions - WBC: 5.16 - Procalcitonin: <0.05 (03/30) - Continued home Guaifenesin - PT/OT consult: Pt has generalized weakness and is at high risk for falls. He would benefit from rehab with PT/OT services following this admission. - [facility] be [facility] to [facility] - Discontinued IV abx and transitioned to oral azithromycin and Augmentin on discharge Atrial fibrillation - Currently rate-controlled - Anticoagulated on Eliquis. History of ablation in [address] Cedillo - Continued Metoprolol 100mg PO BID - Continued Diltiazem 240mg PO qHS - Continued Eliquis 5mg PO BID Seizure disorder - Last seizure in 01/2019 - Continued Keppra 1000mg PO BID Hypothyroidism - TSH 1.7 (03/30) - Continued Synthroid 25mcg PO daily COPD - Chronic. Stable. - No SOB, wheeze at present - Patient with known lung nodules and hamartoma of lung - He has seen pulmonary in the past - Continued Trelegy - Nebs PRN - Nocturnal O2 CAD - Patient denied chest pain - No acute EKG changes of ischemia - Continued ASA 81mg PO BID - Continued Atorvastatin 40mg PO HS - Continued Metoprolol 100mg PO BID - Continued Lisinopril 20mg PO HS Depression - Continued Sertraline 100mg PO qAM Type II DM - Last CtfV1Y=7.3 on 11/08/19 - Hold oral agents - Lantus 6u BID - ISS FENGI: Heart healthy, DM2, low sodium Code - Full Code Dispo: D/C to Inpt rehab (2) A-fib: (3) Seizure disorder: (4) Hypothyroidism (acquired): (5) COPD, moderate: (6) CAD (coronary artery disease): (7) Depression: (8) Dyslipidemia: (9) Type 2 diabetes mellitus: Total Time Total Time Spent Total Time Spent (In Minutes): <30 Discharge Plan Discharge Items Patient Disposition: Transfer Inpatient Rehab Fac Reason For Visit: WEAKNESS, INABILITY TO WALK, PNA Discharge Diagnosis: Pneumonia, weakness Activity: Per Instructions section Non-emergency contact: Primary Care Provider Call non-emergency contact if: your symptoms worsen and your temperature is above 101 Follow-up/Referrals: Lorna Tucker DO [Primary Care Provider] - Diet: Carb Consistent or DM2 and Heart Healthy Liquid Consistency: [place] thick Addtl Attending Provider Instructions: You were admitted to [facility] due to weakness and cough. You were found to have pneumonia and were started on intravenous antibiotics for it. You progressed well during your stay and will be transitioned to oral antibiotics on discharge. During your admission you were seen by physical and occupational therapy for your complaints of weakness.It was recommended by them that you be discharged to an inpatient rehabilitation facility where you will work on regaining your strength with the goal of being independent at home. Please follow up with your primary care provider to discuss your ongoing management of chronic medical conditions. Pending Studies at Discharge: No Stand-Alone Forms: My [facility] Skilled Items Patient informed of condition?: Yes DNR: No Discharge Level of Care: Acute rehab Communicable Disease: No Discharge Prognosis: Improving Lines: None Urinary Catheter: No Medications and DC Order Prescriptions: New azithromycin 250 mg tablet See Rx Instructions .ROUTE .COMPLEX Qty: 6 RF: 0 amoxicillin-pot clavulanate 875-125 mg tablet 1 tab PO Q12H 7 Days Qty: 14 RF: 0 Continued glimepiride 2 mg tablet 4 mg PO QAM Qty: 180 RF: 1 metoprolol tartrate 100 mg tablet 100 mg PO BID Qty: 180 RF: 1 levetiracetam [Keppra] 500 mg tablet 1,000 mg PO BID 90 Days Qty: 360 RF: 1 metformin 1,000 mg tablet 1,000 mg PO BIDM Qty: 14 RF: 0 Trelegy Ellipta 100-62.5-25 mcg blister with device 1 inh INHALATION QAM Qty: 180 RF: 1 sertraline 100 mg tablet 100 mg PO QAM Qty: 90 RF: 1 montelukast 10 mg tablet 10 mg PO HS Qty: 90 RF: 1 sodium chloride 7 % solution for nebulization 4 ml INH BID Qty: 240 RF: 3 levothyroxine [Synthroid] 25 mcg tablet 25 mcg PO QAM Qty: 90 RF: 1 Eliquis 5 mg tablet 5 mg PO BID Qty: 180 RF: 3 calcium carbonate-vitamin D3 600 mg(1,500mg) -400 unit tablet 2 tab PO HS RF: 0 lisinopril 20 mg tablet 20 mg PO HS Qty: 90 RF: 1 diltiazem HCl [Cartia XT] 240 mg capsule,extended release 24hr 240 mg PO HS Qty: 90 RF: 1 albuterol sulfate 2.5 mg /3 mL (0.083 %) solution for nebulization 2.5 mg INH QID PRN (Reason: Shortness Of Breath Or Wheezing) Qty: 360 RF: 11 albuterol sulfate [Ventolin HFA] 90 mcg/actuation HFA aerosol inhaler 2 puffs INH Q4H PRN (Reason: Shortness Of Breath Or Wheezing) RF: 0 fluticasone propionate [Allergy Relief (fluticasone)] 50 mcg/actuation spray,suspension 1 - 2 sprays INTNAS DAILY PRN (Reason: Nasal Congestion) RF: 0 atorvastatin [Lipitor] 40 mg tablet 40 mg PO HS RF: 0 cyanocobalamin (vitamin B-12) [Vitamin B-12] 1,000 mcg tablet 1,000 mcg PO QAM RF: 0 guaifenesin [Mucinex] 600 mg Tablet Extended Release 12hr 1,200 mg PO Q12 Qty: 20 RF: 0 aspirin [Aspir-81] 81 mg Tablet,Delayed Release (Dr/Ec) 81 mg PO BID RF: 0 Discharge Orders: Discharge Order (Routine); Ordered 03/31/20 Ordered By: Binh Fernandez Admission Data Admit Date/Time: 03/31/20 08:25 Attending Provider: Maximino Izaguirre Admit Provider: Patricia Dickey Primary Care Provider: Lorna Tucker. Other Providers: Patricia Dickey ; [facility] ; [facility] Other Interventions: Discharge Summary Assessment (RN) Last Done: 11/24/20 15:59 Supervising Physician Co-Signing Physician Notes I personally examined the patient and verified all varela points of history and exam, discussed case, and agree with decision making with Dr Garibay. weaker than expected w PT - wants him to go to rehab. no meaningful acute HPI /ROS to me as he has started to get somewhat delirious (believes we're in [place], uncertain of setting or circumstances) vitals noted nad heent nc at mmm breathing unlabored but L lower lung field better air entry than yesterday, still faint rhonchi otherwise clear maybe slightly quiet throughout but no other adventitious sounds weakness - appearing related to pneumonia, probably also baseline deconditioning. for rehab CAP POA (vs can't entirely rule out aspiration pneumonia) - zithromax/rocephin inpatient - finish course w zithromax/augmentin. since prior risk for aspir ation - should have ongoing speech eval/treat at rehab hospital acquired delirium / metabolic encephalopathy - no other exacerbating causes identified beyond hospital stay, age, pneumonia - appears stable to go to rehab, and less restrictive environment likely to be helpful for pneumonia otherwise as above Resident Activity Tracking Resident Involvement: Resident Care Provided Care Provided: Adult Hospital Medicine
== END 2020-03-31 17:28 | DRG 193 ==
LOC: 3N 17:26 → ED 17:26 → SUATTDRO 20:59 → 3N 21:40

== ENCOUNTER 2021-02-25 22:46 | Inpatient (IN) ==
[2021-02-25] MEDS ORDERED: ALBUT/IPRATROP 3MG/0.5MG NEB 3 ML VIAL NEB STA (23:48)
[2021-02-25] MEDS ORDERED: methylPREDNISolone 125 MG/2 ML VIAL IV STA (23:51)
--- NOTE | 2021-02-25 23:53 | Emergency Department Note ---
History of Present Illness General Chief complaint: Shortness of Breath/Dyspnea Stated complaint: SOB Time Seen by Provider: 02/25/21 23:29 Source: patient Mode of arrival: EMS Limitations: no limitations History of Present Illness Provider complaint: Shortness of breath Onset (ago): day(s) 2 Associated symptoms: + cough and + shortness of breath; no chest pain, no fever/chills, no headaches, no loss of appetite or no nausea/vomiting Treatments prior to arrival: other This is a 80 yo male who presents to the ER by EMS for shortness of breath. Patient states he is a former smoker and has COPD. He states his breathing has felt worse for a "day or so" but then tonight became much worse and his called 911. He denies change in sputum but states he is coughing more frequently and more forcefully. He states he uses inhalers at home and has been using them more frequently. He denies fevers/chilld, nasal congestion or rhinorrhea. Denies chest pain, abdominal pain, leg swelling, or change in bowel/bladder function. Patient was given 2 nebs by EMS en route and states those did help. He states he doesn't wear oxygen at home and doesn't see pulmonology. Denies use of chronic steroids. Denies hx of heart problems, but states he has a.fib. Pt seen during a time of high acuity and national emergency pandemic while wearing PPE. Home Medications Medication Instructions Recorded Confirmed Type calcium carbonate 600 mg (1,500 2 tab PO HS 01/16/19 02/26/21 History mg)-vitamin D3 400 unit tablet cyanocobalamin (vitamin B-12) 1,000 mcg PO QAM 11/07/19 02/26/21 History 1,000 mcg tablet (Vitamin B-12) apixaban 5 mg tablet (Eliquis) 5 mg PO BID #180 tab 03/11/20 02/26/21 Rx atorvastatin 40 mg tablet (Lipitor) 40 mg PO HS #90 tab 04/20/20 02/26/21 Rx diltiazem HCl 240 mg 240 mg PO HS #90 cap 05/06/20 02/26/21 Rx capsule,extended release 24 hr (Cartia XT) sertraline 100 mg tablet 100 mg PO QAM #90 tab 07/06/20 02/26/21 Rx metformin 1,000 mg tablet 1,000 mg PO BIDM #180 tab 08/03/20 02/26/21 Rx metoprolol tartrate 100 mg tablet 50 mg PO BID #7 tab 11/24/20 02/26/21 Rx levothyroxine 25 mcg tablet 25 mcg PO QAM #90 tab 12/11/20 02/26/21 Rx (Synthroid) fluticasone propionate 50 1 - 2 spray INTNAS DAILY PRN #16 g 12/17/20 02/26/21 Rx mcg/actuation nasal spray,suspension (Allergy Relief (fluticasone)) lisinopril 20 mg tablet 20 mg PO HS #90 tab 12/21/20 02/26/21 Rx glimepiride 2 mg tablet 4 mg PO QAM #180 tab 01/04/21 02/26/21 Rx montelukast 10 mg tablet 10 mg PO HS #90 tab 01/25/21 02/26/21 Rx levetiracetam 500 mg tablet 1,000 mg PO BID 90 Days #360 tab 02/23/21 02/26/21 R x (Keppra) albuterol sulfate 90 mcg/actuation 2 puff INH Q4H PRN #8.5 g 02/25/21 02/26/21 Rx aerosol inhaler (Ventolin HFA) fluticasone fur. 100 mcg-umeclid 1 inh INHALATION QAM #180 ea 02/25/21 02/26/21 Rx 62.5 mcg-vilant 25 mcg inhalat.powder (Trelegy Ellipta) guaifenesin 600 mg tablet, 600 mg PO Q12 PRN #60 tab 02/25/21 02/26/21 Rx extended release 12 hr (Mucinex) ipratropium 0.5 mg-albuterol 3 mg 3 ml INHALATION Q8H PRN #180 ml 02/25/21 02/26/21 Rx (2.5 mg base)/3 mL nebulization soln sodium chloride 7 % for 4 ml INH BID #240 ml 02/25/21 02/26/21 Rx nebulization aspirin 81 mg tablet,delayed 81 mg PO DAILY 02/26/21 02/26/21 History release Allergies Allergy/AdvReac Type Severity Reaction Status Date / Time pollen extracts Allergy Mild CONGESTION Verified 02/26/21 00:03 Past Med/Surg History Medical History (Updated 02/28/21 @ 22:43 by Elen Gary DO) Abdominal aortic aneurysm (AAA), 30-34 mm diameter Anxiety Arteriosclerotic coronary artery disease Asthma Atrial flutter DX [address] CUELLAR IN [place] Benign prostatic hyperplasia with urinary obstruction CAD (coronary artery disease) Cerebral cavernoma Chronic anticoagulation Chronic pulmonary aspiration Depression Dyslipidemia History of acute bronchitis with bronchospasm History of basal cell carcinoma (BCC) of skin (05/2020) History of sinusitis Hypertension Hypothyroidism (acquired) Hypoxia Mild cognitive impairment On home oxygen therapy AT NIGHT Osteoarthritis Osteoporosis Paroxysmal atrial fibrillation DX [address] CUELLAR IN [place] Pneumonia Seizure 01/29/19 - X2 ON THAT DAY AND WAS ADMITTED AND STARTED ON [place] AND NO SEIZURE SINCE Seizure disorder (01/2019) TIA (transient ischemic attack) 2017 X 1 AND NONE SINCE Tremor HANDS Type 2 diabetes mellitus Vitamin B12 deficiency Vitamin D deficiency Surgical History H/O 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 History of anesthesia reaction states "stopped breathing during MOHS procedure at the [facility] [place] History of colonoscopy History of lung biopsy (03/27/19) Navigational Bronchoscopy with ICG Dye, Robotic Right Video Assisted Thoracoscopy with Right Lower Lobe Wedge Resection with Mediastinal Lymphadenectomy and Lymph Node Biopsy Dr. Lynn 03/27/19 Hx of cardiac cath 2017 -- HEART CATH WITH STENT [address] [facility] [address] CUELLAR LAST SEEN 12/20/2018 S/P Mohs surgery for basal cell carcinoma Family History Father Heart disease Other COPD (chronic obstructive pulmonary disease) Depression Family history non-contributory Denies family history of Ovarian cancer Prostate cancer Coronary heart disease Myocardial infarction Breast cancer Seizure Lung cancer Colorectal cancer Social History Smoking Status: Former smoker Tobacco Type: Smokeless Tobacco (Dip or Chew) Age Started Using Tobacco: 18; Age Quit Using Tobacco: 33; packs per day: 2; Years Smoked: 15; Cigarettes Per Day: 20-40; Number of Years Since Quit: 34; Second Hand Exposure: No; Hx Alcohol Use: No Hx Substance Use: No Preferred Language: Swedish Communication Ability: Effective Visual Impairment: No Limitations Hearing Ability: Use of Hearing Aid Agriculture Research Director Required: No Beliefs That Will Affect Care: None marital status: Current Living Situation: Spouse current occupational status: retired 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, 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[employer] ([place]) How many Children do You have: 3 Feels Safe at Home: Yes Childhood Exposure to Second-Hand Smoke: Yes Diet Comment: regular caffeine: No during the past year weight has: remained stable Dental Care, Regularly: No Physical Activity Frequency: Does not Exercise Seatbelt Use: never Sunscreen Use: Yes Assistive Devices: Oxygen - Continuous Review of Systems A total of 10 systems reviewed and were otherwise negative All systems reviewed & are unremarkable except as noted in HPI & below Physical Exam Vital Signs Vital Signs - 24 hr 02/25/21 22:49 02/25/21 23:06 02/25/21 23:30 Temperature 36.6 C Temperature Source Oral Pulse Rate 83 75 81 Pulse Rate [Apical] Pulse Rate from SpO2 Sensor 79 84 Respiratory Rate 18 22 23 Respiratory Effort / Characteristics Respiratory Depth Normal Blood Pressure 144/82 H Blood Pressure Mean 102 Pulse Oximetry 94 95 94 Oxygen Delivery Method Nasal Cannula Oxygen Flow Rate 4 Sepsis Recent Fever Within 48 Hours No Sepsis New/Unexplained Change in Mental Status No Sepsis Action Taken by Nursing No Action Required 02/26/21 00:04 02/26/21 00:15 02/26/21 00:30 Temperature Temperature Source Pulse Rate 93 H 90 Pulse Rate [Apical] 92 H Pulse Rate from SpO2 Sensor 85 87 Respiratory Rate 22 18 20 Respiratory Effort / Characteristics Non-Labored Spontaneous Respiratory Depth Blood Pressure Blood Pressure Mean Pulse Oximetry 98 91 Oxygen Delivery Method Nasal Cannula Oxygen Flow Rate 4 Sepsis Recent Fever Within 48 Hours Sepsis New/Unexplained Change in Mental Status Sepsis Action Taken by Nursing 02/26/21 01:00 02/26/21 01:30 02/26/21 02:00 Temperature Temperature Source Pulse Rate 83 118 H 89 Pulse Rate [Apical] Pulse Rate from SpO2 Sensor 95 H Respiratory Rate 25 H 23 27 H Respiratory Effort / Characteristics Respiratory Depth Blood Pressure Blood Pressure Mean Pulse Oximetry 94 Oxygen Delivery Method Oxygen Flow Rate Sepsis Recent Fever Within 48 Hours Sepsis New/Unexplained Change in Mental Status Sepsis Action Taken by Nursing 02/26/21 02:30 02/26/21 03:00 02/26/21 03:13 Temperature Temperature Source Pulse Rate 101 H 98 H Pulse Rate [Apical] 110 H Pulse Rate from SpO2 Sensor 108 H Respiratory Rate 24 26 H 26 H Respiratory Effort / Characteristics Spontaneous Respiratory Depth Blood Pressure 121/80 Blood Pressure Mean 93 Pulse Oximetry 93 94 Oxygen Delivery Method Nasal Cannula Oxygen Flow Rate 3 Sepsis Recent Fever Within 48 Hours Sepsis New/Unexplained Change in Mental Status Sepsis Action Taken by Nursing 02/26/21 03:30 Temperature Temperature Source Pulse Rate 119 H Pulse Rate [Apical] Pulse Rate from SpO2 Sensor 119 H Respiratory Rate 26 H Respiratory Effort / Characteristics Respiratory Depth Blood Pressure Blood Pressure Mean Pulse Oximetry 96 Oxygen Delivery Method Oxygen Flow Rate 2 Sepsis Recent Fever Within 48 Hours Sepsis New/Unexplained Change in Mental Status Sepsis Action Taken by Nursing GENERAL: alert, well appearing, well nourished, no distress, non-toxic EYE EXAM: normal conjunctiva, PERRL and EOM's grossly intact OROPHARYNX: no exudate, no erythema, lips, buccal mucosa, and tongue normal and mucous membranes are moist NECK: supple, no nuchal rigidity, no adenopathy, non-tender LUNGS: Clear to auscultation. Normal chest wall mechanics, b/l exp wheezing, no retractions, no tachypnea HEART: no murmurs, S1 normal and S2 normal ABDOMEN: abdomen soft, non-tender, normo-active bowel sounds, no masses, no rebound or guarding. BACK: Back is symmetrical on inspection and there is no deformity, no midline tenderness, no CVA tenderness. SKIN: no rashes and no bruising UPPER EXTREMITIES: upper extremities are grossly normal. FROM, nml pulses b/l. LOWER EXTREMITIES: No pitting edema. FROM, nml pulses b/l. NEURO EXAM: Normal sensorium, cranial nerves II-XII grossly intact, normal speech, no gross weakness of arms, no gross weakness of legs. Gross sensation intact. Course Course 0311: Repeat lung exam with persistent wheezing. Decreased WOB. Pt states he feels more comfortable with oxygen in place. 0402: Discussed inpatient treatment with the patient. He would like to contact his . 0420: Discussed with , Teresa. She states he does wear oxygen at night. She states he does see pulmonology and continues to use chewing tobacco. She states patient's breathing has been worse at night over the last 3 days. She believes the patient has evolving dementia as he seems confused at times. She states he is a full code. Administered Medications Albuterol (Albut/Ipratrop 3mg/0.5mg Neb 3 Ml Vial) 3 ml INH QIDR PATO Stop: 03/28/21 10:59 Last Admin: 02/28/21 19:29 Dose: 3 ml Documented by: [id number] Admin: 02/28/21 14:20 Dose: 3 ml Documented by: [id number] Admin: 02/28/21 10:58 Dose: 3 ml Documented by: [id number] Admin: 02/28/21 07:14 Dose: 3 ml Documented by: [id number] Admin: 02/27/21 20:21 Dose: 3 ml Documented by: [id number] Admin: 02/27/21 14:23 Dose: 3 ml Documented by: [id number] Admin: 02/27/21 10:39 Dose: 3 ml Documented by: [id number] Admin: 02/27/21 07:56 Dose: 3 ml Documented by: [id number] Admin: 02/26/21 20:42 Dose: 3 ml Documented by: [id number] Admin: 02/26/21 16:14 Dose: 3 ml Documented by: [id number] Admin: 02/26/21 11:18 Dose: 3 ml Documented by: [id number] Apixaban (Apixaban 5 Mg Tablet) 5 mg PO BID [facility] Stop: 03/28/21 08:59 Last Admin: 02/28/21 20:43 Dose: 5 mg Documented by: [id number] Admin: 02/28/21 08:12 Dose: 5 mg Documented by: [id number] Admin: 02/27/21 20:54 Dose: 5 mg Documented by: [id number] Admin: 02/27/21 08:26 Dose: 5 mg Documented by: [id number] Admin: 02/26/21 20:38 Dose: 5 mg Documented by: [id number] Admin: 02/26/21 10:24 Dose: 5 mg Documented by: [id number] Aspirin (Aspirin 81 Mg Ectab) 81 mg PO DAILY PATO Stop: 03/28/21 08:59 Last Admin: 02/28/21 08:12 Dose: 81 mg Documented by: [id number] Admin: 02/27/21 08:26 Dose: 81 mg Documented by: [id number] Admin: 02/26/21 10:23 Dose: 81 mg Documented by: [id number] Atorvastatin Calcium (Atorvastatin 40 Mg Tab) 40 mg PO HS [facility] Stop: 03/28/21 20:59 Last Admin: 02/28/21 20:44 Dose: 40 mg Documented by: [id number] Admin: 02/27/21 20:56 Dose: 40 mg Documented by: [id number] Admin: 02/26/21 20:38 Dose: 40 mg Documented by: [id number] Budesonide (Budesonide 0.5 Mg/2 Ml Vial (Pulmicort)) 0.5 mg NEB BIDR PATO Stop: 03/28/21 08:29 Last Admin: 02/28/21 19:29 Dose: 0.5 mg Documented by: [id number] Admin: 02/28/21 07:14 Dose: 0.5 mg Documented by: [id number] Admin: 02/27/21 20:21 Dose: 0.5 mg Documented by: [id number] Admin: 02/27/21 07:56 Dose: 0.5 mg Documented by: [id number] Admin: 02/26/21 20:42 Dose: 0.5 mg Documented by: [id number] Admin: 02/26/21 11:18 Dose: 0.5 mg Documented by: [id number] Cyanocobalamin (Cyanocobalamin 500 Mcg Tablet (Vitamin B-12)) 1,000 mcg PO QAM [facility] Stop: 03/29/21 08:59 Last Admin: 02/28/21 08:12 Dose: 1,000 mcg Documented by: [id number] Admin: 02/27/21 08:26 Dose: 1,000 mcg Documented by: [id number] Diltiazem HCl (Diltiazem Hcl 240 Mg Capcr) 240 mg PO [facility] Stop: 03/28/21 20:59 Last Admin: 02/28/21 20:43 Dose: 240 mg Documented by: [id number] Admin: 02/27/21 20:55 Dose: 240 mg Documented by: [id number] Admin: 02/26/21 20:39 Dose: 240 mg Documented by: [id number] Fluticasone Furoate (Fluticasone Furoate 100mcg 14 Puffs/Inhaler) 1 puffs INH QAM [facility]; Protocol Stop: 03/28/21 08:59 Last Admin: 02/28/21 08:12 Dose: 1 puffs Documented by: [id number] Admin: 02/27/21 08:27 Dose: 1 puffs Documented by: [id number] Admin: 02/26/21 11:37 Dose: 1 puffs Documented by: [id number] Guaifenesin (Guaifenesin 600 Mg Tabcr) 1,200 mg PO Q12 PRN PRN Reason: cough Stop: 03/28/21 08:29 Last Admin: 02/28/21 20:42 Dose: 1,200 mg Documented by: [id number] Admin: 02/27/21 20:56 Dose: 1,200 mg Documented by: [id number] Admin: 02/26/21 20:39 Dose: 1,200 mg Documented by: [id number] Admin: 02/26/21 10:06 Dose: 1,200 mg Documented by: [id number] Insulin Aspart (Insulin Aspart 100 Units/Ml 3 Ml Pen) 0 units SC ACHS PATO Stop: 03/28/21 08:29 Last Admin: 02/28/21 20:45 Dose: 10 units Documented by: [id number] Cosigned by: [id number] Admin: 02/28/21 16:47 Dose: 9 units Documented by: [id number] Cosigned by: [id number] Admin: 02/28/21 11:53 Dose: 11 units Documented by: [id number] Cosigned by: [id number] Admin: 02/28/21 08:17 Dose: 2 units Documented by: [id number] Cosigned by: [id number] Admin: 02/27/21 20:58 Dose: 4 units Documented by: [id number] Cosigned by: [id number] Admin: 02/27/21 17:09 Dose: 6 units Documented by: [id number] Cosigned by: [id number] Admin: 02/27/21 11:59 Dose: 10 units Documented by: [id number] Cosigned by: [id number] Admin: 02/27/21 08:25 Dose: 6 units Documented by: [id number] Cosigned by: [id number] Admin: 02/26/21 20:11 Dose: 6 units Documented by: [id number] Cosigned by: [id number] Admin: 02/26/21 16:43 Dose: 6 units Documented by: [id number] Cosigned by: [id number] Admin: 02/26/21 11:55 Dose: 8 units Documented by: [id number] Cosigned by: [id number] Admin: 02/26/21 10:08 Dose: 4 units Documented by: [id number] Cosigned by: [id number] Insulin Glargine (Insulin Glargine Solostar 100 Units/Ml 3 Ml Pen) 14 units SC BID PATO Stop: 03/30/21 20:59 Last Admin: 02/28/21 20:47 Dose: 14 units Documented by: [id number] Cosigned by: [id number] Levetiracetam (Levetiracetam 500 Mg Tab) 1,000 mg PO BID PATO Stop: 03/28/21 20:59 Last Admin: 02/28/21 20:44 Dose: 1,000 mg Documented by: [id number] Admin: 02/28/21 08:15 Dose: 1,000 mg Documented by: [id number] Admin: 02/27/21 20:55 Dose: 1,000 mg Documented by: [id number] Admin: 02/27/21 08:29 Dose: 1,000 mg Documented by: [id number] Admin: 02/26/21 20:13 Dose: 1,000 mg Documented by: [id number] Levothyroxine Sodium (Levothyroxine Sodium 25 Mcg Tablet) 25 mcg PO DAILYBB PATO Stop: 03/28/21 08:59 Last Admin: 02/28/21 05:39 Dose: 25 mcg Documented by: [id number] Admin: 02/27/21 05:38 Dose: 25 mcg Documented by: [id number] Admin: 02/26/21 10:06 Dose: 25 mcg Documented by: [id number] Lisinopril (Lisinopril 20 Mg Tab) 20 mg PO HS PATO Stop: 03/28/21 20:59 Last Admin: 02/28/21 20:43 Dose: 20 mg Documented by: [id number] Admin: 02/27/21 20:54 Dose: 20 mg Documented by: [id number] Admin: 02/26/21 20:39 Dose: 20 mg Documented by: [id number] Metoprolol Tartrate (Metoprolol Tartrate 50 Mg Tab) 50 mg PO BID PATO Stop: 03/28/21 20:59 Last Admin: 02/28/21 20:43 Dose: 50 mg Documented by: [id number] Admin: 02/28/21 08:14 Dose: 50 mg Documented by: [id number] Admin: 02/27/21 20:55 Dose: 50 mg Documented by: [id number] Admin: 02/27/21 08:31 Dose: 50 mg Documented by: [id number] Admin: 02/26/21 20:39 Dose: 50 mg Documented by: [id number] Miscellaneous (Remove Nicoderm Patch) 1 ea N/A DAILY@0859 [facility] Stop: 03/30/21 08:58 Last Admin: 02/28/21 08:38 Dose: 1 ea Documented by: [id number] Montelukast Sodium (Montelukast Sodium 10 Mg Tablet) 10 mg PO [facility] Stop: 03/28/21 20:59 Last Admin: 02/28/21 20:45 Dose: 10 mg Documented by: [id number] Admin: 02/27/21 20:56 Dose: 10 mg Documented by: [id number] Admin: 02/26/21 20:37 Dose: 10 mg Documented by: [id number] Multivitamins/Minerals (Calcium 600mg + Vit D 400 Iu Tab) 2 tab PO [facility] Stop: 03/28/21 20:59 Last Admin: 02/28/21 20:44 Dose: 2 tab Documented by: [id number] Admin: 02/27/21 20:57 Dose: 2 tab Documented by: [id number] Admin: 02/26/21 20:37 Dose: 2 tab Documented by: [id number] Nicotine (Nicotine 14 Mg/24 Hr Patch) [facility] [place] Stop: 03/29/21 17:59 Last Admin: 02/28/21 08:38 Dose: 14 mg Documented by: [id number] Admin: 02/27/21 18:20 Dose: 14 mg Documented by: [id number] Polyethylene Glycol (Polyethylene (Miralax) 17 Gm Pack) 17 gm PO BID [facility] Stop: 03/30/21 20:59 Last Admin: 02/28/21 20:41 Dose: 17 gm Documented by: [id number] Sertraline HCl (Sertraline Hcl 100 Mg Tablet) [facility] [place] Stop: 03/28/21 08:59 Last Admin: 02/28/21 08:14 Dose: 100 mg Documented by: [id number] Admin: 02/27/21 08:30 Dose: 100 mg Documented by: [id number] Admin: 02/26/21 10:06 Dose: 100 mg Documented by: [id number] Umeclidinium/Vilanterol (Umeclidinium/Vilanterol 62.5/25mcg 7 Puffs/Inhaler) 1 puffs INH QAM [facility]; Protocol Stop: 03/28/21 08:59 Last Admin: 02/28/21 08:13 Dose: 1 puffs Documented by: [id number] Admin: 02/27/21 08:34 Dose: 1 puffs Documented by: [id number] Admin: 02/26/21 11:37 Dose: 1 puffs Documented by: [id number] Discontinued Medications Albuterol (Albut/Ipratrop 3mg/0.5mg Neb 3 Ml Vial) 3 ml NEB NOW STA Stop: 02/25/21 23:49 Last Admin: 02/26/21 00:15 Dose: 3 ml Documented by: [id number] Albuterol (Albut/Ipratrop 3mg/0.5mg Neb 3 Ml Vial) 3 ml NEB NOW STA Stop: 02/26/21 02:54 Last Admin: 02/26/21 03:10 Dose: 3 ml Documented by: [id number] Doxycycline Hyclate 100 mg/ (Dextrose) 110 mls @ 50 mls/hr IV NOW STA Stop: 02/26/21 06:38 Last Admin: 02/26/21 05:23 Dose: Not Given Documented by: [id number] Ceftriaxone Sodium 1,000 mg/ (Dextrose) 50 mls @ 100 mls/hr IV Q24H PATO; Protocol Stop: 03/05/21 04:59 Last Infusion: 02/28/21 05:58 Dose: 0 mls/hr Documented by: [id number] Admin: 02/28/21 05:28 Dose: 100 mls/hr Documented by: [id number] Infusion: 02/27/21 06:04 Dose: 0 mls/hr Documented by: [id number] Admin: 02/27/21 05:34 Dose: 100 mls/hr Documented by: [id number] Infusion: 02/26/21 06:06 Dose: 0 mls/hr Documented by: [id number] Admin: 02/26/21 05:23 Dose: 100 mls/hr Documented by: [id number] Azithromycin 500 mg/ Dextrose 255 mls @ 125 mls/hr IV DAILY PATO Stop: 03/05/21 08:59 Last Infusion: 02/28/21 10:42 Dose: 0 mls/hr Documented by: [id number] Admin: 02/28/21 08:32 Dose: 125 mls/hr Documented by: [id number] Infusion: 02/27/21 10:47 Dose: 0 mls/hr Documented by: [id number] Admin: 02/27/21 08:35 Dose: 125 mls/hr Documented by: [id number] Infusion: 02/26/21 11:05 Dose: 0 mls/hr Documented by: [id number] Admin: 02/26/21 08:57 Dose: 125 mls/hr Documented by: [id number] Methylprednisolone 40 mg/ (Syringe) 0.64 mls @ 1.5 mls/min IV Q8 PATO Stop: 03/28/21 13:59 Last Admin: 02/27/21 05:37 Dose: 1.5 mls/min Documented by: [id number] Admin: 02/26/21 21:38 Dose: 1.5 mls/min Documented by: [id number] Admin: 02/26/21 14:09 Dose: 1.5 mls/min Documented by: [id number] Insulin Human Regular 5 units/ (Syringe) 5 mls @ 30 mls/min IV ONE ONE Stop: 02/27/21 01:01 Last Admin: 02/27/21 01:14 Dose: 30 mls/min Documented by: [id number] Cosigned by: [id number] Methylprednisolone 40 mg/ (Syringe) 0.64 mls @ 1.5 mls/min IV Q12H PATO Stop: 03/29/21 16:59 Last Admin: 02/28/21 17:11 Dose: 1.5 mls/min Documented by: [id number] Admin: 02/28/21 05:28 Dose: 1.5 mls/min Documented by: [id number] Admin: 02/27/21 17:12 Dose: 1.5 mls/min Documented by: [id number] Insulin Glargine (Insulin Glargine Solostar 100 Units/Ml 3 Ml Pen) 8 units SC BID PATO Stop: 03/28/21 20:59 Last Admin: 02/26/21 20:35 Dose: 8 units Documented by: [id number] Cosigned by: [id number] Insulin Glargine (Insulin Glargine Solostar 100 Units/Ml 3 Ml Pen) 12 units SC BID PATO Stop: 03/29/21 08:59 Last Admin: 02/28/21 08:20 Dose: 12 units Documented by: [id number] Cosigned by: [id number] Admin: 02/27/21 20:57 Dose: 12 units Documented by: [id number] Cosigned by: [id number] Admin: 02/27/21 08:34 Dose: 12 units Documented by: [id number] Cosigned by: [id number] Levetiracetam (Levetiracetam 500 Mg Tab) 1,000 mg PO NOW STA Stop: 02/26/21 05:05 Last Admin: 02/26/21 05:22 Dose: 1,000 mg Documented by: [id number] Methylprednisolone (Methylprednisolone 125 Mg/2 Ml Vial) 60 mg IV NOW STA Stop: 02/25/21 23:52 Last Admin: 02/26/21 00:10 Dose: 60 mg Documented by: [id number] Methylprednisolone (Methylprednisolone 125 Mg/2 Ml Vial) 60 mg IV NOW STA Stop: 02/26/21 05:01 Last Admin: 02/26/21 05:22 Dose: 60 mg Documented by: [id number] Metoprolol Tartrate (Metoprolol Tartrate 50 Mg Tab) 50 mg PO NOW STA Stop: 02/26/21 05:01 Last Admin: 02/26/21 05:20 Dose: 50 mg Documented by: [id number] Metoprolol Tartrate (Metoprolol Tartrate 50 Mg Tab) 50 mg PO NOW STA Stop: 02/26/21 17:35 Last Admin: 02/26/21 17:44 Dose: 50 mg Documented by: [id number] Medical Decision Making Differential Diagnosis Differential diagnoses includes but is not limited to pneumonia, bronchitis, COPD/Asthma exacerbation, pneumothorax, pulmonary embolism, congestive heart failure, acute coronary syndrome Medical Records Attestation: I reviewed the patient's medical records. Home Medications Current Medication List: was personally reviewed by me Laboratory Data Attestation: I reviewed the patient's lab results. Result diagrams: 02/28/21 05:16 02/28/21 05:16 Lab Results 02/25/21 02/25/21 02/26/21 Range/Units 00:13 00:13 04:30 WBC 11.94 H (4.8-10.8) K/uL RBC 4.67 L (4.7-6.1) M/uL Hgb 11.7 L (14.0-18.0) g/dL Hct 36.6 L (42-52) % MCV 78.4 L (80-100) fL MCH 25.1 (25-34) pg MCHC 32.0 (32-36) g/dL RDW Std Deviation 57.2 H (36.4-46.3) fL RDW Coeff of Ashu 19.8 H (11.5-14.5) % Plt Count 269 (130-400) K/uL MPV 9.4 (7.4-10.4) fL Neutrophils % (Manual) 69.5 % Lymphocytes % (Manual) 8.7 % Monocytes % (Manual) 6.1 % Eosinophils % (Manual) 15.7 % Neutrophils # (Manual) 8.30 H (1.4-6.5) K/uL Total Absolute Neuts 8.30 H (1.4-6.5) K/uL Lymphocytes # (Manual) 1.04 L (1.2-3.4) K/uL Total Abs Lymphocytes 1.04 L (1.2-3.4) K/uL Monocytes # (Manual) 0.73 H (0.11-0.59) K/uL Eosinophils # (Manual) 1.87 H (0-0.5) K/uL Polychromasia 1+ Sodium 139 (136-145) mmol/L Potassium 4.5 (3.5-5.1) mmol/L Chloride 107 (98-107) mmol/L Carbon Dioxide 25 (21-32) mmol/L Anion Gap 7.0 (3-11) BUN 15 (7-18) mg/dl Creatinine 0.87 (0.6-1.4) mg/dl Est Cr Clr Drug Dosing Not Reportable Est GFR ( Amer) 95.1 ml/min Est GFR (Non-Af Amer) 82.1 ml/min BUN/Creatinine Ratio 17.8 (10-20) Glucose 123 H (70-99) mg/dl Calcium 9.0 (8.5-10.1) mg/dl Magnesium 1.8 (1.8-2.4) mg/dl Total Bilirubin 0.2 (0.2-1) mg/dl AST 15 (15-37) U/L ALT 14 (12-78) U/L Alkaline Phosphatase 85 (45-117) U/L Troponin I < 0.015 (0-0.045) ng/ml NT-Pro-B Natriuret Pep 668 (0-1800) pg/ml Total Protein 8.1 (6.4-8.2) gm/dl Albumin 3.3 L (3.4-5.0) gm/dl Globulin 4.8 H (2.5-4.0) gm/dl Albumin/Globulin Ratio 0.7 L (0.9-2) Lipase 116 (73-393) U/L COVID-19 Eval Order Covid19 at [facility] SARS-CoV-2 (PCR) (Negative) 02/26/21 Range/Units 04:30 WBC (4.8-10.8) K/uL RBC (4.7-6.1) M/uL Hgb (14.0-18.0) g/dL Hct (42-52) % MCV (80-100) fL MCH (25-34) pg MCHC (32-36) g/dL RDW Std Deviation (36.4-46.3) fL RDW Coeff of Ashu (11.5-14.5) % Plt Count (130-400) K/uL MPV (7.4-10.4) fL Neutrophils % (Manual) % Lymphocytes % (Manual) % Monocytes % (Manual) % Eosinophils % (Manual) % Neutrophils # (Manual) (1.4-6.5) K/uL Total Absolute Neuts (1.4-6.5) K/uL Lymphocytes # (Manual) (1.2-3.4) K/uL Total Abs Lymphocytes (1.2-3.4) K/uL Monocytes # (Manual) (0.11-0.59) K/uL Eosinophils # (Manual) (0-0.5) K/uL Polychromasia Sodium (136-145) mmol/L Potassium (3.5-5.1) mmol/L Chloride (98-107) mmol/L Carbon Dioxide (21-32) mmol/L Anion Gap (3-11) BUN (7-18) mg/dl Creatinine (0.6-1.4) mg/dl Est Cr Clr Drug Dosing Est GFR ( Amer) ml/min Est GFR (Non-Af Amer) ml/min BUN/Creatinine Ratio (10-20) Glucose (70-99) mg/dl Calcium (8.5-10.1) mg/dl Magnesium (1.8-2.4) mg/dl Total Bilirubin (0.2-1) mg/dl AST (15-37) U/L ALT (12-78) U/L Alkaline Phosphatase (45-117) U/L Troponin I (0-0.045) ng/ml NT-Pro-B Natriuret Pep (0-1800) pg/ml Total Protein (6.4-8.2) gm/dl Albumin (3.4-5.0) gm/dl Globulin (2.5-4.0) gm/dl Albumin/Globulin Ratio (0.9-2) Lipase (73-393) U/L COVID-19 Eval Order SARS-CoV-2 (PCR) NEGATIVE (Negative) Imaging Data My Impression: X-ray: I interpreted the following studies. Chest: A single view study of the chest was reviewed and was negative for cardiomegaly, focal infiltrate, effusion, pulmonary edema, or wide mediastinum. No significant change in chronic appearing changes compared to prior. ECG Data Attestation: I personally reviewed and interpreted this ECG as follows: Indication: + SOB/dyspnea Rate (beats per minute): 83 Rhythm: + normal sinus ECG Intervals/blocks: + First degree AV block, + Normal QRS and + Normal QT ECG [place]: + Normal ECG ST segments: + Nonspecific ST abnormalities MDM Narrative This is an elderly male with dyspnea and audible wheeze on exam. VS stable and pt afebrile. Patient given several additional nebs in the ER with some improvement however patient felt improved on oxygen and due to worsening symptoms I suspect has COPD exacerbation. Patient monitored several hours as he initially was resistant to additional impatient evaluation. After additional discussion with his and reviewing recent pulmonology note, I suspect patient has a component of dementia and seems to be noncompliant with instructions given to him by pulmonology. Patient felt improved on oxygen and this was previously prescribed for him to wear oxygen at night however per he doesn't. THere is also some concern about chronic aspiration from patient ongoing chewing tobacco use. Patient was given steroids and started on antibiotics. No obvious aspiration pna on cxr. COVID negative. Case discussed with hospitalist for admission. I do not suspect acs given no ekg changes and negative trop along with patient denying chest pain. I do not suspect PE given daily anticogulation. No clinical or CXR findings to suggest CHF. An order was placed for continuous cardiac monitoring. The monitor shows a rate of _70__ with _normal sinus__ rhythm. Impression & Plan Acute dyspnea, Acute exacerbation of chronic obstructive pulmonary disease (COPD), Chewing tobacco use Discharge Plan Visit Data Chief Complaint: Shortness of Breath/Dyspnea Stated Complaint: SOB Discharge Problem: Acute dyspnea, Acute exacerbation of chronic obstructive pulmonary disease (COPD), Chewing tobacco use Patient Disposition: Admitted As Inpatient Discharge Instructions Interventions: ED Discharge Assessment Last Done: 02/26/21 18:43
[2021-02-26 00:28] LABS: Mean Platelet Volume 9.4 fL (7.4-10.4); Platelet Count 269 K/uL (130-400)
[2021-02-26 00:46] LABS: ALC (manual) 1.04 K/uL (1.2-3.4); Eosinophils # (manual) 1.87 K/uL (0-0.5); Eosinophils % (manual) 15.7 %; Hematocrit (blood only) 36.6 % (42-52); Hemoglobin 11.7 g/dL (14.0-18.0); Lymphocytes # (manual) 1.04 K/uL (1.2-3.4); Lymphocytes % (manual) 8.7 %; Mean Corpuscular Hemoglobin 25.1 pg (25-34); Mean Corpuscular Volume 78.4 fL (80-100); Monocytes # (manual) 0.73 K/uL (0.11-0.59); Monocytes % (manual) 6.1 %; Neutrophils % (manual) 69.5 %; Polychromasia 1+; RDW Coefficient of Variation 19.8 % (11.5-14.5); RDW Standard Deviation 57.2 fL (36.4-46.3); Red Blood Count 4.67 M/uL (4.7-6.1); White Blood Count 11.94 K/uL (4.8-10.8)
[2021-02-26 00:47] LABS: Alanine Aminotransferase 14 U/L (12-78); Albumin Level 3.3 gm/dl (3.4-5.0); Aspartate Aminotransferase 15 U/L (15-37); BUN Creatinine Ratio 17.8 (10-20); Blood Urea Nitrogen 15 mg/dl (7-18); Carbon Dioxide 25 mmol/L (21-32); Chloride 107 mmol/L (98-107); Est GFR (African American) 95.1 ml/min; Est GFR (Non-African American) 82.1 ml/min; Glucose 123 mg/dl (70-99); Lipase 116 U/L (73-393); Magnesium 1.8 mg/dl (1.8-2.4); Potassium 4.5 mmol/L (3.5-5.1); Sodium 139 mmol/L (136-145)
[2021-02-26 00:52] LABS: Albumin Globulin Ratio 0.7 (0.9-2); Alkaline Phosphatase 85 U/L (45-117); Bilirubin,Total 0.2 mg/dl (0.2-1); Globulin 4.8 gm/dl (2.5-4.0); NT Pro B Type Natriuretic Pept 668 pg/ml (0-1800); Total Protein 8.1 gm/dl (6.4-8.2); Troponin I < 0.015 ng/ml (0-0.045)
[2021-02-26] MEDS ORDERED: ALBUT/IPRATROP 3MG/0.5MG NEB 3 ML VIAL NEB STA (02:53)
[2021-02-26] MEDS ORDERED: DOXYCYCLINE HYCLATE 100 MG in DEXTROSE 5% 100 ML IV STA (04:27)
[2021-02-26] MEDS ORDERED: METOPROLOL TARTRATE 50 MG TAB PO STA ×2 (05:00→17:34)
[2021-02-26] MEDS ORDERED: methylPREDNISolone 125 MG/2 ML VIAL IV STA (05:00)
[2021-02-26] MEDS ORDERED: levETIRAcetam 500 MG TAB PO STA (05:04)
--- NOTE | 2021-02-26 05:15 | History & Physical Report ---
Date of Service February 26, 2021 Assessment & Plan (1) Acute on chronic respiratory failure with hypoxia: Plan: Given an initial dose of Solu-Medrol 60 mg IV, which will add additional 60 mg due to persistent hypoxia Duonebs every 4 hours while awake and every 2 hours when necessary. Pulmicort Respules 0.5 mg inhaled twice daily Methylprednisolone 40 mg IV every 8 hours Ceftriaxone 1 g IV daily Azithromycin 5 mg IV daily Guaifenesin extended release 12 mg p.o. twice daily Nasal cannula oxygen, titrate to keep pulse ox 94 to 95% (2) Seizure disorder: Plan: Continue levetiracetam 1000 mg p.o. twice daily (3) COPD exacerbation: (4) Atrial flutter: Plan: Atrial flutter with RVR/paroxysmal atrial fibrillation/CAD/hypertension- Atrial flutter noted during my examination Continue apixaban 5 mg p.o. twice daily, aspirin 81 mg daily, diltiazem extended release 240 mg daily, lisinopril 20 mg daily and metoprolol tartrate 50 mg p.o. twice daily, all with hold parameters (5) Paroxysmal atrial fibrillation: Plan: See above (6) CAD (coronary artery disease): Plan: See above (7) Type 2 diabetes mellitus: Plan: Hold glimepiride and Metformin Place on Accu-Cheks before meals and at bedtime with NovoLog coverage per scale May require a standing order for long-acting insulin while on steroids (8) Hypothyroidism (acquired): Plan: Continue levothyroxine 25 mcg daily (9) Anxiety: Plan: Continue sertraline 100 mg daily History of Present Illness Chief Complaint: The patient presents to the emergency department with shortness of breath and dyspnea on exertion worsening over the past 2 days Primary Care Provider: Lorna Tucker DO The patient is a 80-year-old male with a past medical history including multiple pulmonary nodules, chronic respiratory failure with hypoxia, ex-smoker, chronic bronchitis, basal cell skin cancer, atrial fibrillation, cerebral cavernoma, seizure disorder, chronic pulmonary aspiration, paroxysmal atrial fibrillation, acquired hypothyroidism, CAD, anxiety, COPD, bradycardia, V. tach, lung hamartoma, long-term anticoagulant use, vitamin D deficiency, B12 deficiency, AAA, CAD, depression, dyslipidemia, mild cognitive impairment, osteoporosis, diabetes mellitus type 2, asthma and TIA. Patient presents with 2 days of worsening shortness of breath and dyspnea on exertion. In the ED patient was given Solu-Medrol 60 mg IV, DuoNeb treatments x2 Allergies Allergy/AdvReac Type Severity Reaction Status Date / Time pollen extracts Allergy Mild CONGESTION Verified 02/26/21 00:03 Home Medications Medication Instructions Recorded Confirmed Type calcium carbonate 600 mg (1,500 2 tab PO HS 01/16/19 02/26/21 History mg)-vitamin D3 400 unit tablet cyanocobalamin (vitamin B-12) 1,000 mcg PO QAM 11/07/19 02/26/21 History 1,000 mcg tablet (Vitamin B-12) apixaban 5 mg tablet (Eliquis) 5 mg PO BID #180 tab 03/11/20 02/26/21 Rx atorvastatin 40 mg tablet (Lipitor) 40 mg PO HS #90 tab 04/20/20 02/26/21 Rx diltiazem HCl 240 mg 240 mg PO HS #90 cap 05/06/20 02/26/21 Rx capsule,extended release 24 hr (Cartia XT) sertraline 100 mg tablet 100 mg PO QAM #90 tab 07/06/20 02/26/21 Rx metformin 1,000 mg tablet 1,000 mg PO BIDM #180 tab 08/03/20 02/26/21 Rx metoprolol tartrate 100 mg tablet 50 mg PO BID #7 tab 11/24/20 02/26/21 Rx levothyroxine 25 mcg tablet 25 mcg PO QAM #90 tab 12/11/20 02/26/21 Rx (Synthroid) fluticasone propionate 50 1 - 2 spray INTNAS DAILY PRN #16 g 12/17/20 02/26/21 Rx mcg/actuation nasal spray,suspension (Allergy Relief (fluticasone)) lisinopril 20 mg tablet 20 mg PO HS #90 tab 12/21/20 02/26/21 Rx glimepiride 2 mg tablet 4 mg PO QAM #180 tab 01/04/21 02/26/21 Rx montelukast 10 mg tablet 10 mg PO HS #90 tab 01/25/21 02/26/21 Rx levetiracetam 500 mg tablet 1,000 mg PO BID 90 Days #360 tab 02/23/21 02/26/21 Rx (Keppra) albuterol sulfate 90 mcg/actuation 2 puff INH Q4H PRN #8.5 g 02/25/21 02/26/21 Rx aerosol inhaler (Ventolin HFA) fluticasone fur. 100 mcg-umeclid 1 inh INHALATION QAM #180 ea 02/25/21 02/26/21 Rx 62.5 mcg-vilant 25 mcg inhalat.powder (Trelegy Ellipta) guaifenesin 600 mg tablet, 600 mg PO Q12 PRN #60 tab 02/25/21 02/26/21 Rx extended release 12 hr (Mucinex) ipratropium 0.5 mg-albuterol 3 mg 3 ml INHALATION Q8H PRN #180 ml 02/25/21 02/26/21 Rx (2.5 mg base)/3 mL nebulization soln sodium chloride 7 % for 4 ml INH BID #240 ml 02/25/21 02/26/21 Rx nebulization aspirin 81 mg tablet,delayed 81 mg PO DAILY 02/26/21 02/26/21 History release Past Med/Surg History Medical History (Updated 02/26/21 @ 06:15 by Isauro Elena MD) Abdominal aortic aneurysm (AAA), 30-34 mm diameter Anxiety Arteriosclerotic coronary artery disease Asthma Atrial flutter DX [address] [place] Benign prostatic hyperplasia with urinary obstruction CAD (coronary artery disease) Cerebral cavernoma Chronic anticoagulation Chronic pulmonary aspiration Depression Dyslipidemia History of acute bronchitis with bronchospasm History of basal cell carcinoma (BCC) of skin (05/2020) History of sinusitis Hypertension Hypothyroidism (acquired) Hypoxia Mild cognitive impairment On home oxygen therapy AT NIGHT Osteoarthritis Osteoporosis Paroxysmal atrial fibrillation DX [address] CUELLAR IN [place] Pneumonia Seizure 01/29/19 - X2 ON THAT DAY AND WAS ADMITTED AND STARTED ON [place] AND NO SEIZURE SINCE Seizure disorder (01/2019) TIA (transient ischemic attack) 2017 X 1 AND NONE SINCE Tremor HANDS Type 2 diabetes mellitus Vitamin B12 deficiency Vitamin D deficiency Surgical History H/O 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 History of anesthesia reaction states "stopped breathing during MOHS procedure at the [facility] History of colonoscopy History of lung biopsy (03/27/19) Navigational Bronchoscopy with ICG Dye, Robotic Right Video Assisted Thoracoscopy with Right Lower Lobe Wedge Resection with Mediastinal Lymphadenectomy and Lymph Node Biopsy Dr. Lynn 03/27/19 Hx of cardiac cath 2017 -- HEART CATH WITH STENT 6 [facility] WITH DR CUELLAR LAST SEEN 12/20/2018 S/P Mohs surgery for basal cell carcinoma Family History Father Heart disease Other COPD (chronic obstructive pulmonary disease) Depression Family history non-contributory Denies family history of Ovarian cancer Prostate cancer Coronary heart disease Myocardial infarction Breast cancer Seizure Lung cancer Colorectal cancer Social History Smoking Status: Former smoker Tobacco Type: Smokeless Tobacco (Dip or Chew) Age Started Using Tobacco: 18; Age Quit Using Tobacco: 33; packs per day: 2; Years Smoked: 15; Cigarettes Per Day: 20-40; Number of Years Since Quit: 34; Second Hand Exposure: No; Hx Alcohol Use: No Hx Substance Use: No Preferred Language: Wolof Communication Ability: Effective Visual Impairment: No Limitations Hearing Ability: Use of Hearing Aid Site Worker Required: No Beliefs That Will Affect Care: None marital status: Current Living Situation: Spouse current occupational status: retired 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, 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[employer] How many Children do You have: 3 Feels Safe at Home: Yes Childhood Exposure to Second-Hand Smoke: Yes Diet Comment: regular caffeine: No during the past year weight has: remained stable Dental Care, Regularly: No Physical Activity Frequency: Does not Exercise Seatbelt Use: never Sunscreen Use: Yes Assistive Devices: Walker Review of Systems Review of Systems: The patient denies chest pain, palpitations, cough, lower extremity swelling, sore throat, fevers, chills, sweats, nausea, vomiting, diarrhea , constipation, abdominal pain, pelvic pain, blood in urine or stool, dysuria, urinary frequency or urgency, lightheadedness, dizziness, headache, memory loss, loss of consciousness, rash, abnormal bruising or bleeding, imbalance, focal weakness, numbness or tingling in arms or legs, generalized arthralgias or myalgias, back or neck pain, or night sweats. The review of systems is otherwise negative other than for that already noted above, and at least 10 systems have been reviewed. Physical Exam Physical Exam: The patient is awake, alert and oriented 3, well developed and well nourished, normocephalic and atraumatic, lying in bed and in no acute distress. HEENT--PERRL, EOMI, mucous membranes and oropharynx dry. Neck--supple. No JVD. No bruits. Thyroid normal, trachea midline, no adenopathy. Heart--variable exam. Regularly irregular. Frequent ectopy. No murmurs, rubs or gallops. Lungs--coarse breath sounds bilaterally. No respiratory distress, no accessory muscle use. Abdomen--normal bowel sounds and soft. Nontender. Nondistended, no hernias or masses, no organomegaly. Extremities--No edema. Dermatologic--normal skin turgor, normal color, no abnormal lymph nodes, no rash. Neurologic--cranial nerves II through XII grossly intact. Rheumatologic--limited exam Psychiatric--normal affect. Results & Data Results & Data ([facility]) Vital Signs (Past 12 Hours) Vital Signs Temp Pulse Pulse Resp BP Pulse Ox 02/26/21 03:30 119 H 26 H 96 02/26/21 03:13 110 H 26 H 94 02/26/21 03:00 98 H 26 H 121/80 02/26/21 02:30 101 H 24 93 02/26/21 02:00 89 27 H 94 02/26/21 01:30 118 H 23 02/26/21 01:00 83 25 H 02/26/21 00:30 90 20 91 02/26/21 00:15 92 H 18 98 02/26/21 00:04 93 H 22 02/25/21 23:30 81 23 94 02/25/21 23:06 75 22 95 02/25/21 22:49 98 F 83 18 144/82 H 94 Laboratory Results Laboratory Results WBC 11.94 K/uL (4.8-10.8) H 02/25/21 00:13 RBC 4.67 M/uL (4.7-6.1) L 02/25/21 00:13 Hgb 11.7 g/dL (14.0-18.0) L 02/25/21 00:13 Hct 36.6 % (42-52) L 02/25/21 00:13 MCV 78.4 fL (80-100) L 02/25/21 00:13 MCH 25.1 pg (25-34) 02/25/21 00:13 MCHC 32.0 g/dL (32-36) 02/25/21 00:13 RDW Std Deviation 57.2 fL (36.4-46.3) H 02/25/21 00:13 RDW Coeff of Ashu 19.8 % (11.5-14.5) H 02/25/21 00:13 Plt Count 269 K/uL (130-400) 02/25/21 00:13 MPV 9.4 fL (7.4-10.4) 02/25/21 00:13 Neutrophils % (Manual) 69.5 % 02/25/21 00:13 Lymphocytes % (Manual) 8.7 % 02/25/21 00:13 Monocytes % (Manual) 6.1 % 02/25/21 00:13 Eosinophils % (Manual) 15.7 % 02/25/21 00:13 Neutrophils # (Manual) 8.30 K/uL (1.4-6.5) H 02/25/21 00:13 Total Absolute Neuts 8.30 K/uL (1.4-6.5) H 02/25/21 00:13 Lymphocytes # (Manual) 1.04 K/uL (1.2-3.4) L 02/25/21 00:13 Total Abs Lymphocytes 1.04 K/uL (1.2-3.4) L 02/25/21 00:13 Monocytes # (Manual) 0.73 K/uL (0.11-0.59) H 02/25/21 00:13 Eosinophils # (Manual) 1.87 K/uL (0-0.5) H 02/25/21 00:13 Polychromasia 1+ 02/25/21 00:13 Sodium 139 mmol/L (136-145) 02/25/21 00:13 Potassium 4.5 mmol/L (3.5-5.1) 02/25/21 00:13 Chloride 107 mmol/L (98-107) 02/25/21 00:13 Carbon Dioxide 25 mmol/L (21-32) 02/25/21 00:13 Anion Gap 7.0 (3-11) 02/25/21 00:13 BUN 15 mg/dl (7-18) 02/25/21 00:13 Creatinine 0.87 mg/dl (0.6-1.4) 02/25/21 00:13 Est Cr Clr Drug Dosing Not Reportable 02/25/21 00:13 Est GFR ( Amer) 95.1 ml/min 02/25/21 00:13 Est GFR (Non-Af Amer) 82.1 ml/min 02/25/21 00:13 BUN/Creatinine Ratio 17.8 (10-20) 02/25/21 00:13 Glucose 123 mg/dl (70-99) H 02/25/21 00:13 Calcium 9.0 mg/dl (8.5-10.1) 02/25/21 00:13 Magnesium 1.8 mg/dl (1.8-2.4) 02/25/21 00:13 Total Bilirubin 0.2 mg/dl (0.2-1) 02/25/21 00:13 AST 15 U/L (15-37) 02/25/21 00:13 ALT 14 U/L (12-78) 02/25/21 00:13 Alkaline Phosphatase 85 U/L (45-117) 02/25/21 00:13 Troponin I < 0.015 ng/ml (0-0.045) 02/25/21 00:13 NT-Pro-B Natriuret Pep 668 pg/ml (0-1800) 02/25/21 00:13 Total Protein 8.1 gm/dl (6.4-8.2) 02/25/21 00:13 Albumin 3.3 gm/dl (3.4-5.0) L 02/25/21 00:13 Globulin 4.8 gm/dl (2.5-4.0) H 02/25/21 00:13 Albumin/Globulin Ratio 0.7 (0.9-2) L 02/25/21 00:13 Lipase 116 U/L (73-393) 02/25/21 00:13 COVID-19 Eval Order Covid19 at [facility] 02/26/21 04:30 SARS-CoV-2 (PCR) NEGATIVE (Negative) 02/26/21 04:30 Code Status & VTE Plan Code Status Full code VTE Prophylaxis Plan VTE Prophylaxis will be ordered: Yes PG Care Time/CCT Total # of Minutes Spent Total Time Spent with Patient: Total time spent is greater than 50% in coordination of care (as documented) at patient's floor/unit and/or counseling patient: Coding Level of Care Code 65707 Initial Inpt Care Lvl 3 Diagnoses Acute on chronic respiratory failure with hypoxia J96.21 Seizure disorder G40.909 Paroxysmal atrial fibrillation I48.0 Hypothyroidism (acquired) E03.9 CAD (coronary artery disease) I25.10 Coronary Disease-Associated Artery/Lesion type: [place] artery [place] vs. transplanted heart: blackfeet heart Associated angina: without angina Anxiety F41.9 COPD exacerbation J44.1 Atrial flutter I48.92 Atrial flutter type: unspecified Type 2 diabetes mellitus E11.9 Diabetes mellitus moth exterminator insulin use: without moth exterminator use Diabetes mellitus complication status: without complication (1) CAD (coronary artery disease) Coronary Disease-Associated Artery/Lesion type: [place] artery [place] vs. transplanted heart: [place] heart Associated angina: without angina Qualified Code(s): I25.10 - Atherosclerotic heart disease of [place] coronary artery with out angina pectoris (2) Atrial flutter Atrial flutter type: unspecified Qualified Code(s): I48.92 - Unspecified atrial flutter (3) Type 2 diabetes mellitus Diabetes mellitus residential insulin use: without residential use Diabetes mellitus complication status: without complication Qualified Code(s): E11.9 - Type 2 diabetes mellitus without complications
[2021-02-26] MEDS: cefTRIAXone SODIUM 1,000 MG in DEXTROSE 5% 50 ML IV SCH (05:23)
--- NOTE | 2021-02-26 08:22 | XRay Report ---
XR chest 1V portable HISTORY: Shortness of breath. COMPARISON: Chest 03/29/2020. FINDINGS: No pneumothorax. The heart is normal in size. Stable volume loss within the left hemithorax . Patchy left basilar densities are again noted. This has slightly improved on the left. No evidence for pulmonary edema. Trace bilateral pleural effusions. IMPRESSION: Patchy bibasilar densities which have improved on the left. Trace bilateral pleural effusions. ACT 112: Negative or not required by law. Electronically signed by: Reagan Villanueva M.D. 02/26/2021 8:21 AM
[2021-02-26] MEDS ORDERED: GLUCOSE 10 TABS/TUBE PO PRN (08:30)
[2021-02-26] MEDS ORDERED: DEXTROSE 50% 50 ML SYRINGE IV PRN (08:30)
[2021-02-26] MEDS ORDERED: ACETAMINOPHEN 325 MG TAB PO PRN (08:30)
[2021-02-26] MEDS ORDERED: GLUCOSE 40% GEL 15 GM TUBE PO PRN (08:30)
[2021-02-26] MEDS ORDERED: GLUCAGON FOR INJ 1 MG VIAL SQ PRN (08:30)
[2021-02-26] MEDS ORDERED: ONDANSETRON INJ 2 MG/ML 2 ML VIAL IV PRN (08:30)
[2021-02-26] MEDS ORDERED: CARBOHYDRATES FOR HYPOGLYCEMIA PO PRN (08:30)
[2021-02-26] MEDS: AZITHROMYCIN 500 MG in DEXTROSE 5% 250 ML IV SCH (08:57)
[2021-02-26] MEDS ORDERED: levETIRAcetam 500 MG TAB PO SCH (09:00)
[2021-02-26] MEDS: guaiFENesin 600 MG TABCR PO PRN ×2 (10:06→20:39)
[2021-02-26] MEDS: LEVOTHYROXINE SODIUM 25 MCG TABLET PO SCH (10:06)
[2021-02-26] MEDS: SERTRALINE HCL 100 MG TABLET PO SCH (10:06)
[2021-02-26] MEDS: INSULIN ASPART 100 UNITS/ML 3 ML PEN SC SCH ×4 (10:08→20:11)
[2021-02-26] MEDS: ASPIRIN 81 MG ECTAB PO SCH (10:23)
[2021-02-26] MEDS: APIXABAN 5 MG TABLET PO SCH ×2 (10:24→20:38)
--- NOTE | 2021-02-26 10:57 | Electrocardiogram Report ---
Test Reason : Blood Pressure : / mmHG Vent. Rate : 083 BPM Atrial Rate : 083 BPM P-R Int : 220 ms QRS Dur : 074 ms QT Int : 374 ms P-R-T Axes : 036 047 049 degrees QTc Int : 439 ms Poor data quality, interpretation may be adversely affected Sinus rhythm with 1st degree A-V block with Premature supraventricular complexes Diffuse Minor Nonspecific ST abnormality Abnormal ECG When compared with ECG of 25-FEB-2021 11:58, Premature supraventricular complexes are now Present HI interval has increased Confirmed by Paolo Fontenot ([id number]) on 02/26/2021 10:57:10 AM Referred By: REFERRED SELF Confirmed By:Paolo Fontenot
[2021-02-26] MEDS: ALBUT/IPRATROP 3MG/0.5MG NEB 3 ML VIAL INH SCH ×3 (11:18→20:42)
[2021-02-26] MEDS: BUDESONIDE 0.5 MG/2 ML VIAL (PULMICORT) NEB SCH ×2 (11:18→20:42)
[2021-02-26] MEDS: FLUTICASONE FUROATE 100MCG 14 PUFFS/INHALER INH SCH (11:37)
[2021-02-26] MEDS: UMECLIDINIUM/VILANTEROL 62.5/25MCG 7 PUFFS/INHALER INH SCH (11:37)
[2021-02-26] MEDS: methylPREDNISolone 40 MG in SYRINGE 0 ML IV SCH ×2 (14:09→21:38)
--- NOTE | 2021-02-26 19:52 | Communication Note ---
Date of Service: February 26, 2021 Nursing notified me that the patient had blood sugars into the high 200's and that he was asking about advancing his diet - consulted speech therapy given that he has had a history of silent aspiration in the past and is here with concern for pneumonia - added long acting insulin
[2021-02-26] MEDS: levETIRAcetam 500 MG TAB PO SCH (20:13)
[2021-02-26] MEDS: MONTELUKAST SODIUM 10 MG TABLET PO SCH (20:37)
[2021-02-26] MEDS: CALCIUM 600MG + VIT D 400 IU TAB PO SCH (20:37)
[2021-02-26] MEDS: ATORVASTATIN 40 MG TAB PO SCH (20:38)
[2021-02-26] MEDS: lisinopril 20 MG TAB PO SCH (20:39)
[2021-02-26] MEDS: METOPROLOL TARTRATE 50 MG TAB PO SCH (20:39)
[2021-02-26] MEDS: dilTIAZem HCL 240 MG CAPCR PO SCH (20:39)
[2021-02-26] MEDS ORDERED: INSULIN GLARGINE SOLOSTAR 100 UNITS/ML 3 ML PEN SC SCH (21:00)
[2021-02-27] MEDS ORDERED: INSULIN HUMAN REGULAR PER UNIT 5 UNITS in SYRINGE 4.95 ML IV ONE (01:00)
[2021-02-27] MEDS: cefTRIAXone SODIUM 1,000 MG in DEXTROSE 5% 50 ML IV SCH (05:34)
[2021-02-27] MEDS: methylPREDNISolone 40 MG in SYRINGE 0 ML IV SCH ×2 (05:37→17:12)
[2021-02-27] MEDS: LEVOTHYROXINE SODIUM 25 MCG TABLET PO SCH (05:38)
[2021-02-27 07:02] LABS: Hematocrit (blood only) 36.8 % (42-52); Hemoglobin 11.4 g/dL (14.0-18.0); Immature Granulocytes # (auto) 0.02 K/uL (0.00-0.02); Immature Granulocytes % (auto) 0.2 %; Lymphocytes # (auto) 0.72 K/uL (1.2-3.4); Lymphocytes % (auto) 6.1 %; Mean Corpuscular Hemoglobin 24.2 pg (25-34); Mean Corpuscular Volume 78.1 fL (80-100); Mean Platelet Volume 9.6 fL (7.4-10.4); Monocytes # (auto) 0.24 K/uL (0.11-0.59); Neutrophils # (auto) 10.92 K/uL (1.4-6.5); Neutrophils % (auto) 91.7 %; Platelet Count 280 K/uL (130-400); RDW Coefficient of Variation 19.5 % (11.5-14.5); RDW Standard Deviation 56.5 fL (36.4-46.3); Red Blood Count 4.71 M/uL (4.7-6.1)
[2021-02-27 07:32] LABS: Alanine Aminotransferase 15 U/L (12-78); Albumin Level 3.2 gm/dl (3.4-5.0); Aspartate Aminotransferase 13 U/L (15-37); BUN Creatinine Ratio 26.2 (10-20); Blood Urea Nitrogen 23 mg/dl (7-18); Calcium 9.3 mg/dl (8.5-10.1); Carbon Dioxide 26 mmol/L (21-32); Chloride 102 mmol/L (98-107); Creatinine Clr Calc Pharmacy 65.1 ml/min; Est GFR (African American) 95.1 ml/min; Est GFR (Non-African American) 82.1 ml/min; Glucose 213 mg/dl (70-99); Potassium 4.8 mmol/L (3.5-5.1); Sodium 135 mmol/L (136-145)
[2021-02-27 07:36] LABS: Albumin Globulin Ratio 0.7 (0.9-2); Alkaline Phosphatase 76 U/L (45-117); Bilirubin,Total 0.3 mg/dl (0.2-1); Globulin 4.5 gm/dl (2.5-4.0); Total Protein 7.7 gm/dl (6.4-8.2); Troponin I < 0.015 ng/ml (0-0.045)
[2021-02-27] MEDS: ALBUT/IPRATROP 3MG/0.5MG NEB 3 ML VIAL INH SCH ×4 (07:56→20:21)
[2021-02-27] MEDS: BUDESONIDE 0.5 MG/2 ML VIAL (PULMICORT) NEB SCH ×2 (07:56→20:21)
[2021-02-27 08:00] LABS: Estimated Average Glucose 140 mg/dl; Hemoglobin A1C 6.5 % (4.5-5.6)
[2021-02-27] MEDS: INSULIN ASPART 100 UNITS/ML 3 ML PEN SC SCH ×4 (08:25→20:58)
[2021-02-27] MEDS: APIXABAN 5 MG TABLET PO SCH ×2 (08:26→20:54)
[2021-02-27] MEDS: CYANOCOBALAMIN 500 MCG TABLET (VITAMIN B-12) PO SCH (08:26)
[2021-02-27] MEDS: ASPIRIN 81 MG ECTAB PO SCH (08:26)
[2021-02-27] MEDS: FLUTICASONE FUROATE 100MCG 14 PUFFS/INHALER INH SCH (08:27)
[2021-02-27] MEDS: levETIRAcetam 500 MG TAB PO SCH ×2 (08:29→20:55)
[2021-02-27] MEDS: SERTRALINE HCL 100 MG TABLET PO SCH (08:30)
[2021-02-27] MEDS: METOPROLOL TARTRATE 50 MG TAB PO SCH ×2 (08:31→20:55)
[2021-02-27] MEDS: INSULIN GLARGINE SOLOSTAR 100 UNITS/ML 3 ML PEN SC SCH ×2 (08:34→20:57)
[2021-02-27] MEDS: UMECLIDINIUM/VILANTEROL 62.5/25MCG 7 PUFFS/INHALER INH SCH (08:34)
[2021-02-27] MEDS: AZITHROMYCIN 500 MG in DEXTROSE 5% 250 ML IV SCH (08:35)
--- NOTE | 2021-02-27 13:05 | XCELERA ---
[id number]
--- NOTE | 2021-02-27 13:59 | Electrocardiogram Report ---
Test Reason : Blood Pressure : / mmHG Vent. Rate : 103 BPM Atrial Rate : 267 BPM P-R Int : 000 ms QRS Dur : 076 ms QT Int : 336 ms P-R-T Axes : 000 017 010 degrees QTc Int : 440 ms Poor data quality, interpretation may be adversely affected Atrial fibrillation with rapid ventricular response Nonspecific ST abnormality Abnormal ECG When compared with ECG of 26-FEB-2021 00:16, Atrial fibrillation has replaced Sinus rhythm Confirmed by Marck Beckett ([id number]) on 02/27/2021 1:58:42 PM Referred By: REFERRED SELF Confirmed By:Marck Beckett
[2021-02-27] MEDS: NICOTINE 14 MG/24 HR PATCH TD SCH (18:20)
--- NOTE | 2021-02-27 20:11 | Hospitalist Progress Note ---
Date of Service February 27, 2021 Assessment & Plan (1) Acute on chronic respiratory failure with hypoxia: Plan: acute component - COPD flare vs rapid a.fib vs aspiration events either way he is feeling better cont IV steroids for COPD exacerbation cont to monitor a.fib episodes and see if symptoms correlate with when he is in rapid a.fib nectar thick liquids for aspiration/dysphagia (2) Seizure disorder: Plan: Continue levetiracetam 1000 mg p.o. twice daily (3) COPD exacerbation: Plan: cont solumedrol 40mg BID cont nebs qid cont pulmicort nebs cont pulmonary toilet (4) Atrial flutter: Plan: PAF noted on tele also with h/o a.flutter see #1 above Continue apixaban 5 mg p.o. twice daily Continue diltiazem extended release 240 mg daily, Continue metoprolol tartrate 50 mg p.o. twice daily If rapid a.fib correlates with dyspnea spells - will ask cardiology for evaluation; need for antiarrhythmic or improved rate control?? (5) Paroxysmal atrial fibrillation: Plan: See above (6) CAD (coronary artery disease): Plan: no evidence of ACS while here (7) Type 2 diabetes mellitus: Plan: Hold glimepiride and Metformin add lantus cont novolog (8) Hypothyroidism (acquired): Plan: Continue levothyroxine 25 mcg daily TSH in November was high repeat while here (9) Anxiety: Plan: Continue sertraline 100 mg daily (10) Microcytic anemia: Plan: check Fe studies AM (11) Chronic pulmonary aspiration: Plan: appreciate speech consult slippery diet with nectar thick liquids advised can't rule out episodes of aspiration causing his acute dyspnea spells at home Plan: updated by phone today Admission and Anticipated Discharge Date Admission Date: February 26, 2021 Subjective pt "feeling better" no more "episodes" of dyspnea cough/congestion improved no chest pain no palpitations tele - numerous episodes of a.fib - episodes last 2-3 hours, resolved - then back to NSR -- then a few hours later a.fib rates 90s-120 eating well; good appetite Review of Systems Review of Systems: gen - no fever, mild weakness CV - no cp Abd/GI - no pain, N/V Pulm - no sputum Physical Exam Physical Exam: gen - NAD, occasional cough, frail appearing neck - no JVD mouth - MMM heart - RRR, s1 s2 lungs - diffuse wheezes b/l, rhonchi occasional; scant rales abd - soft NT BS+ ext - no edema, pulses 2+ b/l psych - a/o x 3 Results & Data Results & Data ([facility]) Vital Signs (Past 12 Hours) Vital Signs Temp Pulse Pulse Resp BP Pulse Ox 02/27/21 18:52 36.8 C 96 H 18 127/77 93 02/27/21 15:08 36.5 C 84 19 109/65 94 02/27/21 14:49 72 02/27/21 14:23 72 18 97 02/27/21 10:57 36.4 C L 75 19 124/64 96 02/27/21 10:39 63 20 98 Laboratory Results Laboratory Results - last 24 hr 02/27/21 02/27/21 02/27/21 00:14 03:04 06:23 WBC 11.90 H RBC 4.71 Hgb 11.4 L Hct 36.8 L MCV 78.1 L MCH 24.2 L MCHC 31.0 L RDW Std Deviation 56.5 H RDW Coeff of Ashu 19.5 H Plt Count 280 MPV 9.6 Immature Gran % (Auto) 0.2 Neut % (Auto) 91.7 Lymph % (Auto) 6.1 [place] % (Auto) 2.0 Eos % (Auto) 0.0 Baso % (Auto) 0.0 Neut # (Auto) 10.92 H Lymph # (Auto) 0.72 L [place] # (Auto) 0.24 Eos # (Auto) 0.00 Baso # (Auto) 0.00 Immature Gran # (Auto) 0.02 Sodium Potassium Chloride Carbon Dioxide Anion Gap BUN Creatinine Est Cr Clr Drug Dosing Est GFR ( Amer) Est GFR (Non-Af Amer) BUN/Creatinine Ratio Glucose POC Glucose 264 H 153 H Estimat Average Glucose Hemoglobin A1c Calcium Total Bilirubin AST ALT Alkaline Phosphatase Troponin I Total Protein Albumin Globulin Albumin/Globulin Ratio 02/27/21 02/27/21 02/27/21 06:23 06:23 06:23 WBC RBC Hgb Hct MCV MCH MCHC RDW Std Deviation RDW Coeff of Ashu Plt Count MPV Immature Gran % (Auto) Neut % (Auto) Lymph % (Auto) [place] % (Auto) Eos % (Auto) Baso % (Auto) Neut # (Auto) Lymph # (Auto) [place] # (Auto) Eos # (Auto) Baso # (Auto) Immature Gran # (Auto) Sodium Cancelled 135 L Potassium Cancelled 4.8 Chloride Cancelled 102 Carbon Dioxide Cancelled 26 Anion Gap Cancelled 7.0 BUN Cancelled 23 H Creatinine Cancelled 0.87 Est Cr Clr Drug Dosing Cancelled 65.1 Est GFR ( Amer) Cancelled 95.1 Est GFR (Non-Af Amer) Cancelled 82.1 BUN/Creatinine Ratio Cancelled 26.2 H Glucose Cancelled 213 H POC Glucose Estimat Average Glucose 140 Hemoglobin A1c 6.5 H Calcium Cancelled 9.3 Total Bilirubin Cancelled 0.3 AST Cancelled 13 L ALT Cancelled 15 Alkaline Phosphatase Cancelled 76 Troponin I < 0.015 Total Protein Cancelled 7.7 Albumin Cancelled 3.2 L Globulin Cancelled 4.5 H Albumin/Globulin Ratio Cancelled 0.7 L 02/27/21 02/27/21 02/27/21 07:17 11:09 16:28 WBC RBC Hgb Hct MCV MCH MCHC RDW Std Deviation RDW Coeff of Ashu Plt Count MPV Immature Gran % (Auto) Neut % (Auto) Lymph % (Auto) [place] % (Auto) Eos % (Auto) Baso % (Auto) Neut # (Auto) Lymph # (Auto) [place] # (Auto) Eos # (Auto) Baso # (Auto) Immature Gran # (Auto) Sodium Potassium Chloride Carbon Dioxide Anion Gap BUN Creatinine Est Cr Clr Drug Dosing Est GFR ( Amer) Est GFR (Non-Af Amer) BUN/Creatinine Ratio Glucose POC Glucose 234 H 262 H 124 H Estimat Average Glucose Hemoglobin A1c Calcium Total Bilirubin AST ALT Alkaline Phosphatase Troponin I Total Protein Albumin Globulin Albumin/Globulin Ratio 02/27/21 20:05 WBC RBC Hgb Hct MCV MCH MCHC RDW Std Deviation RDW Coeff of Ashu Plt Count MPV Immature Gran % (Auto) Neut % (Auto) Lymph % (Auto) [place] % (Auto) Eos % (Auto) Baso % (Auto) Neut # (Auto) Lymph # (Auto) [place] # (Auto) Eos # (Auto) Baso # (Auto) Immature Gran # (Auto) Sodium Potassium Chloride Carbon Dioxide Anion Gap BUN Creatinine Est Cr Clr Drug Dosing Est GFR ( Amer) Est GFR (Non-Af Amer) BUN/Creatinine Ratio Glucose POC Glucose 228 H Estimat Average Glucose Hemoglobin A1c Calcium Total Bilirubin AST ALT Alkaline Phosphatase Troponin I Total Protein Albumin Globulin Albumin/Globulin Ratio PG Care Time/CCT Total # of Minutes Spent Total Time Spent with Patient: Total time spent is greater than 50% in coordination of care (as documented) at patient's floor/unit and/or counseling patient: Coding Level of Care Code 91033 Subseq Hosp Care Lvl 3 Diagnoses Acute on chronic respiratory failure with hypoxia J96.21 Seizure disorder G40.909 COPD exacerbation J44.1 Atrial flutter I48.92 Atrial flutter type: unspecified Paroxysmal atrial fibrillation I48.0 CAD (coronary artery disease) I25.10 Associated angina: without angina Coronary Disease-Associated Artery/Lesion type: [place] artery [place] vs. 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 transplanted heart: [place] heart Qualified Code(s): I25.10 - Atherosclerotic heart disease of [place] coronary artery without angina pectoris (3) Atrial flutter Atrial flutter type: unspecified Qualified Code(s): I48.92 - Unspecified atrial flutter
[2021-02-27] MEDS: lisinopril 20 MG TAB PO SCH (20:54)
[2021-02-27] MEDS: dilTIAZem HCL 240 MG CAPCR PO SCH (20:55)
[2021-02-27] MEDS: MONTELUKAST SODIUM 10 MG TABLET PO SCH (20:56)
[2021-02-27] MEDS: guaiFENesin 600 MG TABCR PO PRN (20:56)
[2021-02-27] MEDS: ATORVASTATIN 40 MG TAB PO SCH (20:56)
[2021-02-27] MEDS: CALCIUM 600MG + VIT D 400 IU TAB PO SCH (20:57)
[2021-02-28] MEDS: cefTRIAXone SODIUM 1,000 MG in DEXTROSE 5% 50 ML IV SCH (05:28)
[2021-02-28] MEDS: methylPREDNISolone 40 MG in SYRINGE 0 ML IV SCH ×2 (05:28→17:11)
[2021-02-28] MEDS: LEVOTHYROXINE SODIUM 25 MCG TABLET PO SCH (05:39)
[2021-02-28 05:53] LABS: Hematocrit (blood only) 35.8 % (42-52); Hemoglobin 11.2 g/dL (14.0-18.0); Immature Granulocytes # (auto) 0.03 K/uL (0.00-0.02); Immature Granulocytes % (auto) 0.2 %; Lymphocytes # (auto) 0.66 K/uL (1.2-3.4); Lymphocytes % (auto) 5.1 %; Mean Corpuscular Hemoglobin 24.2 pg (25-34); Mean Corpuscular Hgb Conc 31.3 g/dL (32-36); Mean Corpuscular Volume 77.3 fL (80-100); Mean Platelet Volume 9.6 fL (7.4-10.4); Monocytes # (auto) 0.52 K/uL (0.11-0.59); Neutrophils # (auto) 11.77 K/uL (1.4-6.5); Neutrophils % (auto) 90.7 %; Platelet Count 299 K/uL (130-400); RDW Coefficient of Variation 19.8 % (11.5-14.5); RDW Standard Deviation 56.5 fL (36.4-46.3); Red Blood Count 4.63 M/uL (4.7-6.1); White Blood Count 12.98 K/uL (4.8-10.8)
[2021-02-28 06:25] LABS: Albumin Level 3.1 gm/dl (3.4-5.0); BUN Creatinine Ratio 31.3 (10-20); Calcium 9.5 mg/dl (8.5-10.1); Creatinine Clr Calc Pharmacy 60.6 ml/min; Est GFR (African American) 96.1 ml/min; Est GFR (Non-African American) 82.9 ml/min; Potassium 4.3 mmol/L (3.5-5.1)
[2021-02-28 06:28] LABS: Albumin Globulin Ratio 0.7 (0.9-2); Bilirubin,Total 0.2 mg/dl (0.2-1); Ferritin 34.3 ng/ml (8-388); Globulin 4.5 gm/dl (2.5-4.0); Total Protein 7.6 gm/dl (6.4-8.2)
[2021-02-28] MEDS: ALBUT/IPRATROP 3MG/0.5MG NEB 3 ML VIAL INH SCH ×4 (07:14→19:29)
[2021-02-28] MEDS: BUDESONIDE 0.5 MG/2 ML VIAL (PULMICORT) NEB SCH ×2 (07:14→19:29)
[2021-02-28] MEDS: APIXABAN 5 MG TABLET PO SCH ×2 (08:12→20:43)
[2021-02-28] MEDS: FLUTICASONE FUROATE 100MCG 14 PUFFS/INHALER INH SCH (08:12)
[2021-02-28] MEDS: CYANOCOBALAMIN 500 MCG TABLET (VITAMIN B-12) PO SCH (08:12)
[2021-02-28] MEDS: ASPIRIN 81 MG ECTAB PO SCH (08:12)
[2021-02-28] MEDS: UMECLIDINIUM/VILANTEROL 62.5/25MCG 7 PUFFS/INHALER INH SCH (08:13)
[2021-02-28] MEDS: SERTRALINE HCL 100 MG TABLET PO SCH (08:14)
[2021-02-28] MEDS: METOPROLOL TARTRATE 50 MG TAB PO SCH ×2 (08:14→20:43)
[2021-02-28] MEDS: levETIRAcetam 500 MG TAB PO SCH ×2 (08:15→20:44)
[2021-02-28] MEDS: INSULIN ASPART 100 UNITS/ML 3 ML PEN SC SCH ×4 (08:17→20:45)
[2021-02-28] MEDS: INSULIN GLARGINE SOLOSTAR 100 UNITS/ML 3 ML PEN SC SCH ×2 (08:20→20:47)
[2021-02-28] MEDS: AZITHROMYCIN 500 MG in DEXTROSE 5% 250 ML IV SCH (08:32)
[2021-02-28] MEDS: NICOTINE 14 MG/24 HR PATCH TD SCH (08:38)
--- NOTE | 2021-02-28 19:05 | Hospitalist Progress Note ---
Date of Service February 28, 2021 Assessment & Plan (1) Acute on chronic respiratory failure with hypoxia: Plan: acute component - COPD flare vs rapid a.fib vs aspiration events favor COPD exacerbation with probable aspiration events at home speech therapy saw this admission - again states he is a known, chronic SILENT aspirator based on video studies in the past his discrete dyspnea spells at home (often occur while sitting watching TV) could be from aspiration events he is overall doing better lower steroids from 40mg BID to 30mg BID nectar thick liquids for aspiration/dysphagia antibiotics (2) Chronic pulmonary aspiration: Plan: appreciate speech consult slippery diet with nectar thick liquids advised can't rule out episodes of aspiration causing his acute dyspnea spells at home no discrete pneumonia on imaging this admission - d/c IV rocephin, d/c IV zithromax - change to PO doxy to complete 7 day course of IV/PO abx (3) Seizure disorder: Plan: Continue levetiracetam 1000 mg p.o. twice daily (4) COPD exacerbation: Plan: cont solumedrol - cut to 30mg IV BID today cont nebs qid cont pulmicort nebs cont pulmonary toilet (5) Atrial flutter: Plan: PAF episodes noted on tele since admission also with h/o a.flutter last 24 hours he has mainly spent in a.fib rather than NSR Continue apixaban 5 mg p.o. twice daily Continue diltiazem extended release 240 mg daily, Continue metoprolol tartrate 50 mg p.o. twice daily I am less concerned at this point that a.fib/flutter is the cause of his acute dyspnea spells (6) Paroxysmal atrial fibrillation: Plan: See above (7) CAD (coronary artery disease): Plan: no evidence of ACS while here (8) Type 2 diabetes mellitus: Plan: Hold glimepiride and Metformin cont lantus cont novolog adjust both today due to hyperglycemia from steroids (9) Hypothyroidism (acquired): Plan: Continue levothyroxine 25 mcg daily TSH in November was high repeat in AM (10) Anxiety: Plan: Continue sertraline 100 mg daily (11) Iron deficiency anemia: Plan: iron studies today c/w Fe Deficiency anemia he is on chronic eliquis thus chronic, low-grade GI blood loss likely poor candidate for endoscopic eval due to severe O2-dependent COPD venofer 200mg IV x 1 in am if tolerates consider another dose while hospitalized follow cbc Plan: updated by phone yesterday PT, OT making good progress Admission and Anticipated Discharge Date Admission Date: February 26, 2021 Subjective patient states he continues to feel better no further "spells" of dyspnea overall his breathing is improved cough - which was acutely worse on top of his chronic cough - is back to baseline NOLAND is near baseline eating well we discussed that speech therapy has confirmed in the past that he is a silent aspirator and that perhaps his acute dyspnea events at home are due to such in the setting of severe, o2- dependent COPD tele - mainly in a.fib, some NSR - but less NSR than previous Review of Systems Review of Systems: gen - no fevers CV - no pain, no orthopnea pulm - minimal sputum GI - no BM in 3 days; asks for meds; no N/V Physical Exam Physical Exam: gen - NAD, occasional cough, frail appearing but in good spirits and very pleasant neck - no JVD mouth - MMM heart - RRR, s1 s2 lungs - diffuse wheezes b/l, rhonchi; no rales today; no distress abd - soft NT BS+ ext - no edema, pulses 2+ b/l psych - a/o x 3 Results & Data Results & Data ([facility]) Vital Signs (Past 12 Hours) Vital Signs Temp Pulse Pulse Resp BP BP Pulse Ox 02/28/21 15:57 36.6 C 102 H 17 119/78 95 02/28/21 15:01 87 02/28/21 14:21 91 H 18 96 02/28/21 11:39 36.6 C 79 18 128/70 99 02/28/21 10:59 85 96 02/28/21 07:19 36.3 C L 89 18 152/85 H 94 02/28/21 07:16 85 18 96 Laboratory Results Laboratory Results - last 24 hr 02/27/21 02/28/21 02/28/21 20:05 05:16 05:16 WBC 12.98 H RBC 4.63 L Hgb 11.2 L Hct 35.8 L MCV 77.3 L MCH 24.2 L MCHC 31.3 L RDW Std Deviation 56.5 H RDW Coeff of Ashu 19.8 H Plt Count 299 MPV 9.6 Immature Gran % (Auto) 0.2 Neut % (Auto) 90.7 Lymph % (Auto) 5.1 [place] % (Auto) 4.0 Eos % (Auto) 0.0 Baso % (Auto) 0.0 Neut # (Auto) 11.77 H Lymph # (Auto) 0.66 L [place] # (Auto) 0.52 Eos # (Auto) 0.00 Baso # (Auto) 0.00 Immature Gran # (Auto) 0.03 H Sodium 136 Potassium 4.3 Chloride 103 Carbon Dioxide 30 Anion Gap 3.0 BUN 27 H Creatinine 0.85 Est Cr Clr Drug Dosing 60.6 Est GFR ( Amer) 96.1 Est GFR (Non-Af Amer) 82.9 BUN/Creatinine Ratio 31.3 H Glucose 137 H POC Glucose 228 H Calcium 9.5 Iron 19 L Transferrin 252 Transferrin % Sat 5 L Ferritin 34.3 Total Bilirubin 0.2 AST 14 L ALT 17 Alkaline Phosphatase 76 Total Protein 7.6 Albumin 3.1 L Globulin 4.5 H Albumin/Globulin Ratio 0.7 L 02/28/21 02/28/21 02/28/21 07:04 11:26 16:14 WBC RBC Hgb Hct MCV MCH MCHC RDW Std Deviation RDW Coeff of Ashu Plt Count MPV Immature Gran % (Auto) Neut % (Auto) Lymph % (Auto) [place] % (Auto) Eos % (Auto) Baso % (Auto) Neut # (Auto) Lymph # (Auto) [place] # (Auto) Eos # (Auto) Baso # (Auto) Immature Gran # (Auto) Sodium Potassium Chloride Carbon Dioxide Anion Gap BUN Creatinine Est Cr Clr Drug Dosing Est GFR ( Amer) Est GFR (Non-Af Amer) BUN/Creatinine Ratio Glucose POC Glucose 159 H 239 H 188 H Calcium Iron Transferrin Transferrin % Sat Ferritin Total Bilirubin AST ALT Alkaline Phosphatase Total Protein Albumin Globulin Albumin/Globulin Ratio PG Care Time/CCT Total # of Minutes Spent Total Time Spent with Patient: Total time spent is greater than 50% in coordination of care (as documented) at patient's floor/unit and/or counseling patient: Coding Level of Care Code 58040 Subseq Hosp Care Lvl 3 Diagnoses Acute on chronic respiratory failure with hypoxia J96.21 Seizure disorder G40.909 COPD exacerbation J44.1 Atrial flutter I48.92 Atrial flutter type: unspecified Paroxysmal atrial fibrillation I48.0 CAD (coronary artery disease) I25.10 Associated angina: without angina Coronary Disease-Associated Artery/Lesion type: [place] artery [place] vs. transplanted heart: [place] heart Type 2 diabetes mellitus E11.9 Diabetes mellitus complication status: without complication Diabetes mellitus long term care social worker insulin use: without long term care social worker use Hypothyroidism (acquired) E03.9 Anxiety F41.9 Chronic pulmonary aspiration T17.908A Iron deficiency anemia D50.9 (1) Type 2 diabetes mellitus Diabetes mellitus complication status: without complication Diabetes mellitus long term care social worker insulin use: without [facility] use Qualified Code(s): E11.9 - Type 2 diabetes mellitus without complications (2) CAD (coronary artery disease) Associated angina: without angina Coronary Disease-Associated Artery/Lesion type: [place] artery [place] vs. transplanted heart: [place] heart Qualified Code(s): I25.10 - Atherosclerotic heart disease of [place] coronary artery without angina pectoris (3) Atrial flutter Atrial flutter type: unspecified Qualified Code(s): I48.92 - Unspecified atrial flutter
[2021-02-28] MEDS: POLYETHYLENE (MIRALAX) 17 GM PACK PO SCH (20:41)
[2021-02-28] MEDS: guaiFENesin 600 MG TABCR PO PRN (20:42)
[2021-02-28] MEDS: dilTIAZem HCL 240 MG CAPCR PO SCH (20:43)
[2021-02-28] MEDS: lisinopril 20 MG TAB PO SCH (20:43)
[2021-02-28] MEDS: ATORVASTATIN 40 MG TAB PO SCH (20:44)
[2021-02-28] MEDS: CALCIUM 600MG + VIT D 400 IU TAB PO SCH (20:44)
[2021-02-28] MEDS: MONTELUKAST SODIUM 10 MG TABLET PO SCH (20:45)
[2021-03-01] MEDS: methylPREDNISolone 30 MG in SYRINGE 0 ML IV SCH ×2 (05:21→16:56)
[2021-03-01] MEDS: LEVOTHYROXINE SODIUM 25 MCG TABLET PO SCH (05:21)
[2021-03-01 05:57] LABS: Hematocrit (blood only) 36.1 % (42-52); Hemoglobin 11.4 g/dL (14.0-18.0); Immature Granulocytes # (auto) 0.03 K/uL (0.00-0.02); Immature Granulocytes % (auto) 0.2 %; Lymphocytes # (auto) 0.73 K/uL (1.2-3.4); Lymphocytes % (auto) 5.3 %; Mean Corpuscular Hemoglobin 24.4 pg (25-34); Mean Corpuscular Hgb Conc 31.6 g/dL (32-36); Mean Corpuscular Volume 77.1 fL (80-100); Mean Platelet Volume 9.5 fL (7.4-10.4); Monocytes # (auto) 0.85 K/uL (0.11-0.59); Monocytes % (auto) 6.2 %; Neutrophils # (auto) 12.12 K/uL (1.4-6.5); Neutrophils % (auto) 88.3 %; Platelet Count 297 K/uL (130-400); RDW Coefficient of Variation 19.6 % (11.5-14.5); RDW Standard Deviation 55.6 fL (36.4-46.3); Red Blood Count 4.68 M/uL (4.7-6.1); White Blood Count 13.73 K/uL (4.8-10.8)
[2021-03-01 06:37] LABS: BUN Creatinine Ratio 28.4 (10-20); Creatinine Clr Calc Pharmacy 61.6 ml/min; Est GFR (African American) 96.1 ml/min; Est GFR (Non-African American) 82.9 ml/min
[2021-03-01] MEDS: BUDESONIDE 0.5 MG/2 ML VIAL (PULMICORT) NEB SCH ×2 (07:12→19:16)
[2021-03-01] MEDS: ALBUT/IPRATROP 3MG/0.5MG NEB 3 ML VIAL INH SCH ×4 (07:12→19:16)
[2021-03-01] MEDS: levETIRAcetam 500 MG TAB PO SCH ×2 (07:49→20:01)
[2021-03-01] MEDS: CYANOCOBALAMIN 500 MCG TABLET (VITAMIN B-12) PO SCH (07:49)
[2021-03-01] MEDS: METOPROLOL TARTRATE 50 MG TAB PO SCH ×2 (07:49→20:01)
[2021-03-01] MEDS: ASPIRIN 81 MG ECTAB PO SCH (07:49)
[2021-03-01] MEDS: SERTRALINE HCL 100 MG TABLET PO SCH (07:50)
[2021-03-01] MEDS: POLYETHYLENE (MIRALAX) 17 GM PACK PO SCH ×2 (07:50→20:05)
[2021-03-01] MEDS: DOXYCYCLINE HYCLATE 100 MG CAP PO SCH ×2 (07:50→20:04)
[2021-03-01] MEDS: SENNA 8.6 MG TAB PO SCH (07:50)
[2021-03-01] MEDS: INSULIN GLARGINE SOLOSTAR 100 UNITS/ML 3 ML PEN SC SCH ×2 (07:51→21:33)
[2021-03-01] MEDS: NICOTINE 14 MG/24 HR PATCH TD SCH (07:51)
[2021-03-01] MEDS: INSULIN ASPART 100 UNITS/ML 3 ML PEN SC SCH ×4 (07:51→21:32)
[2021-03-01] MEDS: APIXABAN 5 MG TABLET PO SCH ×2 (07:51→20:05)
[2021-03-01] MEDS ORDERED: IRON SUCROSE 200 MG in 0.9 % SODIUM CHLORIDE 100 ML IV ONE (08:00)
[2021-03-01] MEDS: FLUTICASONE FUROATE 100MCG 14 PUFFS/INHALER INH SCH (10:48)
[2021-03-01] MEDS: UMECLIDINIUM/VILANTEROL 62.5/25MCG 7 PUFFS/INHALER INH SCH (10:49)
--- NOTE | 2021-03-01 14:27 | Hospitalist Progress Note ---
Date of Service March 01, 2021 Assessment & Plan (1) Acute on chronic respiratory failure with hypoxia: Plan: Acute component - COPD flare vs rapid a.fib vs aspiration events. Favor COPD exacerbation with probable aspiration events at home. - Speech therapy saw this admission - again states he is a known, chronic SILENT aspirator based on video studies in the past. His discrete dyspnea spells at home (often occur while sitting watching TV) could be from aspiration events. He is overall doing better. -> nectar thick liquids for aspiration/dysphagia - Continue antibiotics - Taper steroids. (2) Chronic pulmonary aspiration: Plan: Appreciate speech consult. - Slippery diet with nectar thick liquids advised. - Can't rule out episodes of aspiration causing his acute dyspnea spells at home. - No discrete pneumonia on imaging this admission - d/c IV Rocephin, d/c IV Zithromax; finish with 3 more days of doxycyline. (3) Seizure disorder: Plan: None noted in the hospital. - Continue levetiracetam 1000 mg p.o. twice daily (4) COPD exacerbation: Plan: As above (5) Atrial flutter: Plan: PAF episodes noted on tele since admission. Also with h/o a.flutter. - Continue apixaban 5 mg p.o. twice daily - Continue diltiazem extended release 240 mg daily, - Continue metoprolol tartrate 50 mg p.o. twice daily (6) Paroxysmal atrial fibrillation: Plan: See above (7) CAD (coronary artery disease): Plan: No evidence of ACS while here. (8) Type 2 diabetes mellitus: Plan: A1c was 6.5% this admission. - Hold glimepiride and Metformin - Cont lantus & Novolog -> Sugars have been 90 - 140 today. No change in insulin. (9) Hypothyroidism (acquired): Plan: TSH this admission was 1.8. - Continue levothyroxine 25 mcg daily (10) Anxiety: Plan: - Continue sertraline 100 mg daily (11) Iron deficiency anemia: Plan: Iron studies c/w Fe Deficiency anemia. He is on chronic Eliquis thus chronic, low-grade GI blood loss likely. Poor candidate for endoscopic eval due to severe O2-dependent COPD. - Given Venofer 200mg IV x 1 dose. - Will continue another while inpatient. Admission and Anticipated Discharge Date Admission Date: February 26, 2021 Subjective Feels well today. No major issues. Still with a thick cough, but no shortness of breath. Reports no fevers/chills, chest pain, shortness of breath, abdominal pain, nausea, or vomiting. Physical Exam Constitutional: WD/WN, vitals as above Eyes: EOM intact bilaterally; no conjunctival abnormality ENMT: external ear and nose normal, oropharynx normal Neck: trachea midline, no thyromegaly normal visual inspection Respiratory: normal respiratory effort, lungs clear to auscultation no respiratory distress Cardiovascular: RRR, no murmur, no edema Gastrointestinal (Abdomen): Inspection/Auscultation: abdomen normal to inspection; abdomen not distended Musculoskeletal: no cyanosis or clubbing, extremities motor strength 5/5 Skin: no rashes, warm and dry Neurologic: moves all extremities and awake Psychiatric: Orientation: alert, oriented to person and cooperative Results & Data Results & Data ([facility]) Vital Signs (Past 12 Hours) Vital Signs Temp Pulse Resp BP Pulse Ox 03/01/21 11:04 36.3 C L 90 18 138/79 96 03/01/21 10:44 71 19 94 03/01/21 07:59 36.5 C 94 H 18 131/82 90 03/01/21 07:15 87 18 90 03/01/21 04:09 36.7 C 93 H 16 121/80 96 PG Care Time/CCT Total # of Minutes Spent Total Time Spent with Patient: Total time spent is greater than 50% in coordination of care (as documented) at patient's floor/unit and/or counseling patient: Coding Level of Care Code 88326 Subseq Hosp Care Lvl 3 Diagnoses Acute on chronic respiratory failure with hypoxia J96.21 Chronic pulmonary aspiration T17.908A Seizure disorder G40.909 COPD exacerbation J44.1 Atrial flutter I48.92 Atrial flutter type: unspecified Paroxysmal atrial fibrillation I48.0 CAD (coronary artery disease) I25.10 Coronary Disease-Associated Artery/Lesion type: [place] artery [place] vs. 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 transplanted heart: [place] heart Associated angina: without angina Qualified Code(s): I25.10 - Atherosclerotic heart disease of [place] coronary artery without angina pectoris (3) Type 2 diabetes mellitus Diabetes mellitus longwall machine operator helper insulin use: without longwall machine operator helper use Diabetes mellitus complication status: without complication Qualified Code(s): E11.9 - Type 2 diabetes mellitus without complications
[2021-03-01] MEDS: MONTELUKAST SODIUM 10 MG TABLET PO SCH (20:01)
[2021-03-01] MEDS: guaiFENesin 600 MG TABCR PO PRN (20:02)
[2021-03-01] MEDS: dilTIAZem HCL 240 MG CAPCR PO SCH (20:04)
[2021-03-01] MEDS: ATORVASTATIN 40 MG TAB PO SCH (20:04)
[2021-03-01] MEDS: lisinopril 20 MG TAB PO SCH (20:04)
[2021-03-01] MEDS: CALCIUM 600MG + VIT D 400 IU TAB PO SCH (20:05)
[2021-03-02 06:03] LABS: Hematocrit (blood only) 36.6 % (42-52); Hemoglobin 11.3 g/dL (14.0-18.0); Mean Corpuscular Hemoglobin 24.3 pg (25-34); Mean Corpuscular Hgb Conc 30.9 g/dL (32-36); Mean Corpuscular Volume 78.7 fL (80-100); Mean Platelet Volume 9.6 fL (7.4-10.4); Platelet Count 285 K/uL (130-400); RDW Coefficient of Variation 19.6 % (11.5-14.5); RDW Standard Deviation 56.5 fL (36.4-46.3); Red Blood Count 4.65 M/uL (4.7-6.1); White Blood Count 13.91 K/uL (4.8-10.8)
[2021-03-02] MEDS: LEVOTHYROXINE SODIUM 25 MCG TABLET PO SCH (06:34)
[2021-03-02] MEDS ORDERED: IRON SUCROSE 300 MG in SODIUM CHLORIDE 0.9% 250 ML IV ONE (07:00)
[2021-03-02] MEDS: BUDESONIDE 0.5 MG/2 ML VIAL (PULMICORT) NEB SCH (07:09)
[2021-03-02] MEDS: ALBUT/IPRATROP 3MG/0.5MG NEB 3 ML VIAL INH SCH ×2 (07:09→10:37)
[2021-03-02] MEDS: SERTRALINE HCL 100 MG TABLET PO SCH (07:33)
[2021-03-02] MEDS: CYANOCOBALAMIN 500 MCG TABLET (VITAMIN B-12) PO SCH (07:33)
[2021-03-02] MEDS: METOPROLOL TARTRATE 50 MG TAB PO SCH (07:33)
[2021-03-02] MEDS: levETIRAcetam 500 MG TAB PO SCH (07:33)
[2021-03-02] MEDS: SENNA 8.6 MG TAB PO SCH (07:33)
[2021-03-02] MEDS: DOXYCYCLINE HYCLATE 100 MG CAP PO SCH (07:33)
[2021-03-02] MEDS: ASPIRIN 81 MG ECTAB PO SCH (07:33)
[2021-03-02] MEDS: POLYETHYLENE (MIRALAX) 17 GM PACK PO SCH (07:33)
[2021-03-02] MEDS: APIXABAN 5 MG TABLET PO SCH (07:33)
[2021-03-02] MEDS: FLUTICASONE FUROATE 100MCG 14 PUFFS/INHALER INH SCH (07:34)
[2021-03-02] MEDS: UMECLIDINIUM/VILANTEROL 62.5/25MCG 7 PUFFS/INHALER INH SCH (07:34)
[2021-03-02] MEDS: NICOTINE 14 MG/24 HR PATCH TD SCH (07:35)
[2021-03-02] MEDS: INSULIN ASPART 100 UNITS/ML 3 ML PEN SC SCH ×2 (07:54→12:13)
[2021-03-02] MEDS: INSULIN GLARGINE SOLOSTAR 100 UNITS/ML 3 ML PEN SC SCH (07:55)
[2021-03-02] MEDS ORDERED: predniSONE 20 MG TAB PO SCH (09:00)
--- NOTE | 2021-03-02 12:33 | Discharge Summary ---
Date of Service March 02, 2021 Admission HPI Per Admitting Provider The patient is a 80-year-old male with a past medical history including multiple pulmonary nodules, chronic respiratory failure with hypoxia, ex-smoker, chronic bronchitis, basal cell skin cancer, atrial fibrillation, cerebral cavernoma, seizure disorder, chronic pulmonary aspiration, paroxysmal atrial fibrillation, acquired hypothyroidism, CAD, anxiety, COPD, bradycardia, V. tach, lung hamartoma, long-term anticoagulant use, vitamin D deficiency, B12 deficiency, AAA, CAD, depression, dyslipidemia, mild cognitive impairment, osteoporosis, diabetes mellitus type 2, asthma and TIA. Patient presents with 2 days of worsening shortness of breath and dyspnea on exertion. In the ED patient was given Solu-Medrol 60 mg IV, DuoNeb treatments x2 Principal Diagnosis COPD exacerbation Discharge Exam Constitutional WD/WN, vitals as above Eyes EOM intact bilaterally; no conjunctival abnormality ENMT external ear and nose normal, oropharynx normal Neck trachea midline, no thyromegaly normal visual inspection Respiratory normal respiratory effort, lungs clear to auscultation no respiratory distress Cardiovascular RRR, no murmur, no edema Gastrointestinal (Abdomen) Inspection/Auscultation: abdomen normal to inspection; abdomen not distended Musculoskeletal no cyanosis or clubbing, extremities motor strength 5/5 Skin no rashes, warm and dry Neurologic moves all extremities and awake Psychiatric Orientation: alert, oriented to person and cooperative Discharge Data Allergies Allergy/AdvReac Type Severity Reaction Status Date / Time pollen extracts Allergy Mild CONGESTION Verified 02/26/21 00:03 Consultations 02/26/21 05:18 ED Decision to Admit Stat Hospital Course (1) Acute on chronic respiratory failure with hypoxia: Acute component - COPD flare vs rapid a.fib vs aspiration events. Favor COPD exacerbation with probable aspiration events at home. - Speech therapy saw this admission - again states he is a known, chronic SILENT aspirator based on video studies in the past. His discrete dyspnea spells at home (often occur while sitting watching TV) could be from aspiration events. He is overall doing better. -> nectar thick liquids for aspiration/dysphagia - Continued antibiotics while in the hospital. - Taper steroids per discharge instructions. Added azithromycin 250 mg PO per pulmonology's thoughts in last office visit. Recommended to see Dr. Morris in 1-2 weeks. (2) Chronic pulmonary aspiration: Appreciate speech consult. - Slippery diet with nectar thick liquids advised. - Can't rule out episodes of aspiration causing his acute dyspnea spells at home. - No discrete pneumonia on imaging this admission - d/c IV Rocephin, d/c IV Zithromax; finish with 3 more days of doxycyline. (3) Seizure disorder: None noted in the hospital. - Continue levetiracetam 1000 mg p.o. twice daily (4) COPD exacerbation: As above (5) Atrial flutter: PAF episodes noted on tele since admission. Also with h/o a.flutter. - Continue apixaban 5 mg p.o. twice daily - Continue diltiazem extended release 240 mg daily, - Continue metoprolol tartrate 50 mg p.o. twice daily (6) Paroxysmal atrial fibrillation: See above (7) CAD (coronary artery disease): No evidence of ACS while here. (8) Type 2 diabetes mellitus: A1c was 6.5% this admission. - Hold glimepiride and Metformin - Cont lantus & Novolog -> Sugars have been 90 - 140 today. No change in insulin. - No change on discharge. (9) Hypothyroidism (acquired): TSH this admission was 1.8. - Continue levothyroxine 25 mcg daily (10) Anxiety: - Continue sertraline 100 mg daily (11) Iron deficiency anemia: Iron studies c/w Fe Deficiency anemia. He is on chronic Eliquis thus chronic, low-grade GI blood loss likely. Poor candidate for endoscopic eval due to severe O2-dependent COPD. - Given Venofer 200mg IV x 2 doses while in the hospital. Total Time Total Time Spent Total Time Spent (In Minutes): 35 Discharge Plan Discharge Items Patient Disposition: Home - Self-Care Reason For Visit: COPD EXACERBATION WITH HYPOXIA Discharge Diagnosis: COPD exacerbation Activity: Resume your previous activity Non-emergency contact: Primary Care Provider Call non-emergency contact if: your symptoms worsen and your pain is worsening Follow-up/Referrals: Lorna Tucker DO [Primary Care Provider] - Darke Morris MD [Physician] - 03/18/21 11:00 am (Please see Dr. Morris in 1-2 weeks for pulmonary follow-up.) Diet: Regular Liquid Consistency: [place] thick Addtl Attending Provider Instructions: You were admitted with COPD. Please take the steroid taper as follows: * Prednisone 40 mg (4 tabs) by mouth every morning for 3 days, then * Prednisone 30 mg (3 tabs) by mouth every morning for 3 days, then * Prednisone 20 mg (2 tabs) by mouth every morning for 3 days, then * Prednisone 10 mg (1 tab) by mouth every morning for 3 days, then stop. Please see Dr. Morris (your lung doctor) in 1-2 weeks to be sure you are doing better. Pending Studies at Discharge: No Stand-Alone Forms: My [facility], Smoking Cessation Medications and DC Order Prescriptions: New azithromycin 250 mg tablet 250 mg PO .MWF Qty: 36 RF: 0 prednisone 10 mg tablet 40 mg PO DAILY Qty: 30 RF: 0 Continued Eliquis 5 mg tablet 5 mg PO BID Qty: 180 RF: 3 atorvastatin [Lipitor] 40 mg tablet 40 mg PO HS Qty: 90 RF: 3 diltiazem HCl [Cartia XT] 240 mg capsule,extended release 24hr 240 mg PO HS Qty: 90 RF: 3 sertraline 100 mg tablet 100 mg PO QAM Qty: 90 RF: 2 metformin 1,000 mg tablet 1,000 mg PO BIDM Qty: 180 RF: 2 metoprolol tartrate 100 mg tablet 50 mg PO BID Qty: 7 RF: 0 levothyroxine [Synthroid] 25 mcg tablet 25 mcg PO QAM Qty: 90 RF: 1 fluticasone propionate [Allergy Relief (fluticasone)] 50 mcg/actuation spray,suspension 1 - 2 spray INTNAS DAILY PRN (Reason: Nasal Congestion) Qty: 16 RF: 5 lisinopril 20 mg tablet 20 mg PO HS Qty: 90 RF: 1 glimepiride 2 mg tablet 4 mg PO QAM Qty: 180 RF: 1 montelukast 10 mg tablet 10 mg PO HS Qty: 90 RF: 1 calcium carbonate-vitamin D3 600 mg(1,500mg) -400 unit tablet 2 tab PO HS RF: 0 levetiracetam [Keppra] 500 mg tablet 1,000 mg PO BID 90 Days Qty: 360 RF: 3 ipratropium-albuterol 0.5 mg-3 mg(2.5 mg base)/3 mL solution for nebulization 3 ml inhalation Q8H PRN (Reason: shortness of breath or wheezing) Qty: 180 RF: 5 Trelegy Ellipta 100-62.5-25 mcg blister with device 1 inh INHALATION QAM Qty: 180 RF: 1 albuterol sulfate [Ventolin HFA] 90 mcg/actuation HFA aerosol inhaler 2 puff INH Q4H PRN (Reason: Shortness Of Breath Or Wheezing) Qty: 8.5 RF: 3 guaifenesin [Mucinex] 600 mg tablet extended release 12hr 600 mg PO Q12 PRN (Reason: cough) Qty: 60 RF: 1 sodium chloride 7 % solution for nebulization 4 ml INH BID Qty: 240 RF: 5 cyanocobalamin (vitamin B-12) [Vitamin B-12] 1,000 mcg tablet 1,000 mcg PO QAM RF: 0 aspirin 81 mg Tablet,Delayed Release (Dr/Ec) 81 mg PO DAILY RF: 0 Discharge Orders: Discharge Order (Routine); Ordered 03/02/21 Ordered By: Neri Salcedo/Other Patient Handouts: A1C, Managing Type 2 Diabetes Admission Data Admit Date/Time: 02/26/21 05:14 Attending Provider: Neri Beckman Admit Provider: Isauro Elena Primary Care Provider: Lorna Tucker Other Providers: Neri Beckman Other Interventions: Discharge Summary Assessment (RN) Last Done: 03/02/21 10:42 Coding Level of Care Code D/C DAY MANAGEMENT >30 MINS Diagnoses Acute on chronic respiratory failure with hypoxia J96.21 Chronic pulmonary aspiration T17.908A Seizure disorder G40.909 COPD exacerbation J44.1 Atrial flutter I48.92 Atrial flutter type: unspecified Paroxysmal atrial fibrillation I48.0 CAD (coronary artery disease) I25.10 Coronary Disease-Associated Artery/Lesion type: [place] artery [place] vs. transplanted heart: [place] heart Associated angina: without angina Type 2 diabetes mellitus E11.9 Diabetes mellitus long [place] [employer] insulin use: without shelter use Diabetes mellitus complication status: without complication Hypothyroidism (acquired) E03.9 Anxiety F41.9 Iron deficiency anemia D50.9
== END 2021-03-02 14:04 | disposition home health service (06) | DRG 189 ==
LOC: ED 22:46 → EDINP 02-26 05:14 → SUATTDRO 02-26 05:14 → EDINP 02-26 18:43 → 2S 02-26 19:18

== ENCOUNTER 2021-04-07 22:43 | Inpatient (IN) ==
[2021-04-07] MEDS ORDERED: ACETAMINOPHEN 500 MG TAB PO STA (23:17)
[2021-04-07] MEDS ORDERED: SODIUM CHLORIDE 0.9% 1000ML 1,000 ML IV SCH (23:30)
[2021-04-08 00:29] LABS: Basophils # (auto) 0.03 K/uL (0-0.2); Basophils % (auto) 0.3 %; Eosinophils # (auto) 0.03 K/uL (0-0.5); Eosinophils % (auto) 0.3 %; Hematocrit (blood only) 38.4 % (42-52); Immature Granulocytes # (auto) 0.02 K/uL (0.00-0.02); Immature Granulocytes % (auto) 0.2 %; Lymphocytes # (auto) 1.39 K/uL (1.2-3.4); Lymphocytes % (auto) 14.2 %; Mean Corpuscular Hemoglobin 26.2 pg (25-34); Mean Corpuscular Hgb Conc 31.3 g/dL (32-36); Mean Corpuscular Volume 83.8 fL (80-100); Mean Platelet Volume 9.4 fL (7.4-10.4); Monocytes % (auto) 8.2 %; Neutrophils # (auto) 7.53 K/uL (1.4-6.5); Neutrophils % (auto) 76.8 %; Platelet Count 253 K/uL (130-400); RDW Coefficient of Variation 22.2 % (11.5-14.5); RDW Standard Deviation 68.4 fL (36.4-46.3); Red Blood Count 4.58 M/uL (4.7-6.1)
[2021-04-08 00:49] LABS: Alanine Aminotransferase 19 U/L (12-78); Albumin Level 3.4 gm/dl (3.4-5.0); Aspartate Aminotransferase 12 U/L (15-37); BUN Creatinine Ratio 21.1 (10-20); Blood Urea Nitrogen 18 mg/dl (7-18); Carbon Dioxide 23 mmol/L (21-32); Chloride 104 mmol/L (98-107); Creatinine Clr Calc Pharmacy 60.7 ml/min; Est GFR (African American) 96.1 ml/min; Est GFR (Non-African American) 82.9 ml/min; Glucose 98 mg/dl (70-99); Magnesium 1.6 mg/dl (1.8-2.4); Sodium 134 mmol/L (136-145)
--- NOTE | 2021-04-08 00:57 | Emergency Department Note ---
Impression & Plan Weakness, Fever ED Provider Note INFORMANT: Patient and EMS ED PROVIDER(S): Osei Hinojosa MD CHIEF COMPLAINT: Weakness PLAN: Disposition: Admitted Condition: Good Outpatient prescription management: none Referral: None MEDICAL DECISION MAKING: Patient presented to the ER because of weakness. He has had several minor falls and denies any injury. CT imaging of the head was performed. Chest x-ray was performed and was negative. The patient had a borderline fever. Covid testing performed. Blood work and urinalysis ordered. Patient CBC was unremarkable. Mild anemia present. ECG did show A. fib with borderline rapid response. Nonspecific changes. The patient was given Tylenol. He had viral testing performed. This was negative. CBC and chemistry panel were unremarkable. Patient was able to provide a urine sample. This was analyzed and was unremarkable. Blood cultures were ordered. No definitive source was found for his low-grade fever. Patient was reassessed and was doing relatively well. With the multiple falls over the last 24 hours and weakness coupled with the low-grade fever further management in the hospital was felt to be appropriate. Consultation was made with Dr. Dickey of the hospitalist service. Patient was evaluated in the ER for further management. Triage Nursing notes reviewed and agree them. Vital Signs: reviewed and remarkable for mild fever Differential diagnosis: Infection, dehydration, metabolic abnormality, hypo/hyperglycemia, electrolyte disturbance, anemia, hypoxia, cardiac sources, intracerebral event, toxicologic, neurologic, as well as other pathologies. Diagnostics interpreted by me: ECG: Twelve-lead ECG reveals A. fib with RVR at [address] No ST elevation. Normal axis. Cardiac Monitoring: Cardiac monitoring ordered by me: The patient was placed on continuous cardiac monitoring and observed. It revealed atrial fibrillation at 86 bpm. Imaging studies: Chest x-ray. Findings: A chest x-ray was performed and revealed no pneumothorax, effusion, infiltrate, pulmonary edema, free air under the diaphragm, or wide mediastinum. Impression: No acute disease. HPI: The patient is a 80 year old male who presents to the Emergency Room with complaints of weakness. This started over the last few days and is worsening today. The patient also notes the following associated symptoms, several falls without injury. EMS noted that patient's stated that he was very weak in the legs. The patient denies any pain. The patient has been prescribed no medication for relieving factors. Denies any URI symptoms or recent sick contacts. Pt denies LOC, headache, fevers, chills, diaphoresis, visual changes, neck pain, chest pain, breathing difficulties, nausea, vomiting, abdominal pain, back pain, melena, hematochezia, urinary symptoms, numbness, lymphadenopathy, rash, or other complaints. ROS: See above HPI for pertinent positives & negatives. A total of 10 systems r eviewed and were otherwise negative. PAST MEDICAL HISTORY:See Below , A. fib, anticoagulated, AAA PAST SURGICAL HISTORY:See Below, FAMILY HISTORY:See Below SOCIAL HISTORY:See Below, HOME MEDICATIONS:See Below ALLERGIES:See Below VITALS:See Below PHYSICAL EXAMINATION: GENERAL: Awake, alert, well-appearing, in no distress HENT: Normocephalic, atraumatic. Oropharynx unremarkable. EYES: Normal conjunctiva. Sclera non-icteric. NECK: Inspection normal. Non-tender. Supple. No nuchal rigidity. FROM. No masses. RESPIRATORY: Clear to auscultation. No wheezes. No rales. Normal respiratory effort. CARDIAC: Borderline tachycardic rate. Irregular rhythm. No murmurs. No rubs. Extremities warm and well perfused. Pulses equal. No JVD. GI: Soft, non-distended. No tenderness to palpation. No rebound or guarding. No masses. RECTAL: Deferred. MUSCULOSKELETAL: Atraumatic. Chest examination reveals no tenderness. The back is symmetrical on inspection without obvious abnormality. There is no CVA tenderness to palpation. No joint edema. LOWER EXTREMITIES: Calves are equal size bilaterally and non-tender. No edema. Mild chronic venous discoloration. NEURO: Normal sensorium. No focal sensory or motor deficits noted. Generally weak in the lower extremities. SKIN: No rash or jaundice noted. Osei Hinojosa MD Past Med/Surg History Medical History (Updated 04/08/21 @ 00:57 by Osei Hinojosa MD) Abdominal aortic aneurysm (AAA), 30-34 mm diameter Anxiety Arteriosclerotic coronary artery disease Asthma Atrial flutter DX [address] CUELLAR [place] Benign prostatic hyperplasia with urinary obstruction CAD (coronary artery disease) Cerebral cavernoma Chronic anticoagulation Chronic pulmonary aspiration Depression Dyslipidemia History of acute bronchitis with bronchospasm History of basal cell carcinoma (BCC) of skin (05/2020) History of sinusitis Hypertension Hypothyroidism (acquired) Hypoxia Mild cognitive impairment On home oxygen therapy AT NIGHT Osteoarthritis Osteoporosis Paroxysmal atrial fibrillation DX [address] CUELLAR IN [place] Pneumonia Seizure 01/29/19 - X2 ON THAT DAY AND WAS ADMITTED AND STARTED ON [place] AND NO SEIZURE SINCE Seizure disorder (01/2019) TIA (transient ischemic attack) 2017 X 1 AND NONE SINCE Tremor HANDS Type 2 diabetes mellitus Vitamin B12 deficiency Vitamin D deficiency Surgical History H/O 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 History of anesthesia reaction states "stopped breathing during MOHS procedure at the [facility] [place] History of colonoscopy History of lung biopsy (03/27/19) Navigational Bronchoscopy with ICG Dye, Robotic Right Video Assisted Thoracoscopy with Right Lower Lobe Wedge Resection with Mediastinal Lymphadenectomy and Lymph Node Biopsy Dr. Lynn 03/27/19 Hx of cardiac cath 2017 -- HEART CATH WITH STENT 6 [facility] WITH DR CUELLAR LAST SEEN 12/20/2018 S/P Mohs surgery for basal cell carcinoma Family History Father Heart disease Other COPD (chronic obstructive pulmonary disease) Depression Family history non-contributory Denies family history of Ovarian cancer Prostate cancer Coronary heart disease Myocardial infarction Breast cancer Seizure Lung cancer Colorectal cancer Social History Smoking Status: Never smoker Tobacco Type: Smokeless Tobacco (Dip or Chew) Age Started Using Tobacco: 18; Age Quit Using Tobacco: 33; packs per day: 2; Years Smoked: 15; Cigarettes Per Day: 20-40; Number of Years Since Quit: 34; Second Hand Exposure: No; Hx Alcohol Use: No Hx Substance Use: No Preferred Language: Polish Communication Ability: Effective Visual Impairment: No Limitations Hearing Ability: 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 of 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 Aid 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: No Beliefs That Will Affect Care: None marital status: Current Living Situation: Spouse current occupational status: retired 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, 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[employer] ([place]) How many Children do You have: 3 Feels Safe at Home: Yes Childhood Exposure to Second-Hand Smoke: Yes Diet Comment: regular caffeine: No during the past year weight has: remained stable Dental Care, Regularly: No Physical Activity Frequency: Does not Exercise Seatbelt Use: never Sunscreen Use: Yes Assistive Devices: Glasses and Oxygen - Continuous Allergies Allergies Allergy/AdvReac Type Severity Reaction Status Date / Time pollen extracts Allergy Mild CONGESTION Verified 04/07/21 23:30 Home Meds Home Medications Medication Instructions Recorded Confirmed calcium carbonate 600 mg (1,500 2 tab PO HS 01/16/19 04/07/21 mg)-vitamin D3 400 unit tablet cyanocobalamin (vitamin B-12) 1,000 mcg PO QAM 11/07/19 04/07/21 1,000 mcg tablet (Vitamin B-12) aspirin 81 mg tablet,delayed 81 mg PO DAILY 02/26/21 04/07/21 release sodium chloride 7 % for 4 ml INH UD 04/07/21 04/07/21 nebulization Previous Rx's Medication Instructions Recorded apixaban 5 mg tablet (Eliquis) 5 mg PO BID #180 tab 03/11/20 atorvastatin 40 mg tablet (Lipitor) 40 mg PO HS #90 tab 04/20/20 diltiazem HCl 240 mg 240 mg PO HS #90 cap 05/06/20 capsule,extended release 24 hr (Cartia XT) sertraline 100 mg tablet 100 mg PO QAM #90 tab 07/06/20 metformin 1,000 mg tablet 1,000 mg PO BIDM #180 tab 08/03/20 metoprolol tartrate 100 mg tablet 50 mg PO BID #7 tab 11/24/20 levothyroxine 25 mcg tablet 25 mcg PO QAM #90 tab 12/11/20 (Synthroid) fluticasone propionate 50 1 - 2 spray INTNAS DAILY PRN #16 g 12/17/20 mcg/actuation nasal spray,suspension (Allergy Relief (fluticasone)) lisinopril 20 mg tablet 20 mg PO HS #90 tab 12/21/20 glimepiride 2 mg tablet 4 mg PO QAM #180 tab 01/04/21 montelukast 10 mg tablet 10 mg PO HS #90 tab 01/25/21 levetiracetam 500 mg tablet 1,000 mg PO BID 90 Days #360 tab 02/23/21 (Keppra) albuterol sulfate 90 mcg/actuation 2 puff INH Q4H PRN #8.5 g 02/25/21 aerosol inhaler (Ventolin HFA) fluticasone fur. 100 mcg-umeclid 1 inh INHALATION QAM #180 ea 02/25/21 62.5 mcg-vilant 25 mcg inhalat.powder (Trelegy Ellipta) guaifenesin 600 mg tablet, 600 mg PO Q12 PRN #60 tab 02/25/21 extended release 12 hr (Mucinex) ipratropium 0.5 mg-albuterol 3 mg 3 ml INHALATION Q8H PRN #180 ml 02/25/21 (2.5 mg base)/3 mL nebulization soln azithromycin 250 mg tablet 250 mg PO .MWF #36 tab 03/02/21 Results & Data (ED) Vital Signs Vital Signs - 24 hr 04/07/21 22:55 04/07/21 23:03 04/07/21 23:17 Temperature 37.6 C H Temperature Source Oral Pulse Rate 86 80 Pulse Rate [Apical] Pulse Rhythm Irregular Pulse Rhythm [Apical] Pulse Strength [Apical] Respiratory Rate 20 16 Respiratory Effort / Characteristics Spontaneous Respiratory Depth Respiratory Pattern Blood Pressure 132/84 Blood Pressure [Right Arm] Blood Pressure Mean 100 Blood Pressure Mean [Right Arm] Blood Pressure Position Sitting Blood Pressure Position [Right Arm] Pulse Oximetry 95 94 Oxygen Delivery Method Room Air Room Air Room Air Oxygen Flow Rate 95 Sepsis Recent Fever Within 48 Hours No Sepsis New/Unexplained Change in Mental Status No Sepsis Action Taken by Nursing No Action Required 04/08/21 01:31 Temperature Temperature Source Pulse Rate Pulse Rate [Apical] 80 Pulse Rhythm Pulse Rhythm [Apical] Irregular Pulse Strength [Apical] Normal Respiratory Rate 16 Respiratory Effort / Characteristics Non-Labored Spontaneous Respiratory Depth Normal Respiratory Pattern Regular Blood Pressure Blood Pressure [Right Arm] 148/77 H Blood Pressure Mean Blood Pressure Mean [Right Arm] 100 Blood Pressure Position Blood Pressure Position [Right Arm] Lying Pulse Oximetry 94 Oxygen Delivery Method Room Air Oxygen Flow Rate Sepsis Recent Fever Within 48 Hours Sepsis New/Unexplained Change in Mental Status Sepsis Action Taken by Nursing Laboratory Data Result diagrams: 04/08/21 00:15 04/08/21 00:15 Lab Results 04/07/21 04/08/21 04/08/21 Range/Units 23:55 00:15 00:15 WBC 9.80 (4.8-10.8) K/uL RBC 4.58 L (4.7-6.1) M/uL Hgb 12.0 L (14.0-18.0) g/dL Hct 38.4 L (42-52) % MCV 83.8 (80-100) fL MCH 26.2 (25-34) pg MCHC 31.3 L (32-36) g/dL RDW Std Deviation 68.4 H (36.4-46.3) fL RDW Coeff of Ashu 22.2 H (11.5-14.5) % Plt Count 253 (130-400) K/uL MPV 9.4 (7.4-10.4) fL Immature Gran % (Auto) 0.2 % Neut % (Auto) 76.8 % Lymph % (Auto) 14.2 % Bee % (Auto) 8.2 % Eos % (Auto) 0.3 % Baso % (Auto) 0.3 % Neut # (Auto) 7.53 H (1.4-6.5) K/uL Lymph # (Auto) 1.39 (1.2-3.4) K/uL Bee # (Auto) 0.80 H (0.11-0.59) K/uL Eos # (Auto) 0.03 (0-0.5) K/uL Baso # (Auto) 0.03 (0-0.2) K/uL Immature Gran # (Auto) 0.02 (0.00-0.02) K/uL Anisocytosis Present Sodium 134 L (136-145) mmol/L Potassium 4.0 (3.5-5.1) mmol/L Chloride 104 (98-107) mmol/L Carbon Dioxide 23 (21-32) mmol/L Anion Gap 7.0 (3-11) BUN 18 (7-18) mg/dl Creatinine 0.85 (0.6-1.4) mg/dl Est Cr Clr Drug Dosing 60.7 ml/min Est GFR ( Amer) 96.1 ml/min Est GFR (Non-Af Amer) 82.9 ml/min BUN/Creatinine Ratio 21.1 H (10-20) Glucose 98 (70-99) mg/dl Calcium 9.0 (8.5-10.1) mg/dl Magnesium 1.6 L (1.8-2.4) mg/dl Total Bilirubin 0.2 (0.2-1) mg/dl AST 12 L (15-37) U/L ALT 19 (12-78) U/L Alkaline Phosphatase 92 (45-117) U/L Troponin I < 0.015 (0-0.045) ng/ml Total Protein 7.5 (6.4-8.2) gm/dl Albumin 3.4 (3.4-5.0) gm/dl Globulin 4.1 H (2.5-4.0) gm/dl Albumin/Globulin Ratio 0.8 L (0.9-2) TSH 3.280 (0.300-4.500) uIu/ml Urine Color Urine Appearance (Clear) Urine pH (4.5-7.5) Ur Specific Dodson (1.000-1.030) Urine Protein (Negative) Urine Glucose (UA) (Negative) Urine Ketones (Negative) Urine Blood (Negative) Urine Nitrite (Negative) Urine Bilirubin (Negative) Urine Urobilinogen (Negative) Ur Leukocyte Esterase (Negative) Urine WBC (Auto) (0-5) /hpf Urine RBC (Auto) (0-4) /hpf U Hyaline Cast (Auto) (0-5) /lpf U Epithel Cells (Auto) (0-5) /lpf Urine Bacteria (Auto) (Negative) SARS-CoV-2 (PCR) NEGATIVE (Negative) Influenza Type A (PCR) Negative (Neg) Influenza Type B (PCR) Negative (Neg) RSV (RT-PCR) Negative (Neg) 04/08/21 Range/Units 01:00 WBC (4.8-10.8) K/uL RBC (4.7-6.1) M/uL Hgb (14.0-18.0) g/dL Hct (42-52) % MCV (80-100) fL MCH (25-34) pg MCHC (32-36) g/dL RDW Std Deviation (36.4-46.3) fL RDW Coeff of Ashu (11.5-14.5) % Plt Count (130-400) K/uL MPV (7.4-10.4) fL Immature Gran % (Auto) % Neut % (Auto) % Lymph % (Auto) % Bee % (Auto) % Eos % (Auto) % Baso % (Auto) % Neut # (Auto) (1.4-6.5) K/uL Lymph # (Auto) (1.2-3.4) K/uL Bee # (Auto) (0.11-0.59) K/uL Eos # (Auto) (0-0.5) K/uL Baso # (Auto) (0-0.2) K/uL Immature Gran # (Auto) (0.00-0.02) K/uL Anisocytosis Sodium (136-145) mmol/L Potassium (3.5-5.1) mmol/L Chloride (98-107) mmol/L Carbon Dioxide (21-32) mmol/L Anion Gap (3-11) BUN (7-18) mg/dl Creatinine (0.6-1.4) mg/dl Est Cr Clr Drug Dosing ml/min Est GFR ( Amer) ml/min Est GFR (Non-Af Amer) ml/min BUN/Creatinine Ratio (10-20) Glucose (70-99) mg/dl Calcium (8.5-10.1) mg/dl Magnesium (1.8-2.4) mg/dl Total Bilirubin (0.2-1) mg/dl AST (15-37) U/L ALT (12-78) U/L Alkaline Phosphatase (45-117) U/L Troponin I (0-0.045) ng/ml Total Protein (6.4-8.2) gm/dl Albumin (3.4-5.0) gm/dl Globulin (2.5-4.0) gm/dl Albumin/Globulin Ratio (0.9-2) TSH (0.300-4.500) uIu/ml Urine Color Yellow Urine Appearance Clear (Clear) Urine pH 5.0 (4.5-7.5) Ur Specific Dodson 1.018 (1.000-1.030) Urine Protein 1+ H (Negative) Urine Glucose (UA) Negative (Negative) Urine Ketones Negative (Negative) Urine Blood Negative (Negative) Urine Nitrite Negative (Negative) Urine Bilirubin Negative (Negative) Urine Urobilinogen Negative (Negative) Ur Leukocyte Esterase Negative (Negative) Urine WBC (Auto) 0 (0-5) /hpf Urine RBC (Auto) 0-4 (0-4) /hpf U Hyaline Cast (Auto) 0 (0-5) /lpf U Epithel Cells (Auto) 0-5 (0-5) /lpf Urine Bacteria (Auto) Negative (Negative) SARS-CoV-2 (PCR) (Negative) Influenza Type A (PCR) (Neg) Influenza Type B (PCR) (Neg) RSV (RT-PCR) (Neg) Administered Medications Sodium Chloride (Nss 1000ml) 1,000 mls @ 125 mls/hr IV .Q8H PATO Stop: 04/08/21 07:29 Last Infusion: 04/08/21 01:05 Dose: 0 mls/hr Documented by: [id number] Admin: 04/08/21 00:15 Dose: 125 mls/hr Documented by: [id number] Discontinued Medications Acetaminophen (Acetaminophen 500 Mg Tab) 1,000 mg PO NOW STA Stop: 04/07/21 23:18 Last Admin: 04/08/21 00:28 Dose: 1,000 mg Documented by: [id number] Discharge Plan Visit Data Chief Complaint: Weakness ED Provider: Osei Hinojosa Discharge Problem: Weakness, Fever Forms Stand Alone Forms: [facility] Prescriptions Prescriptions: No Action Eliquis 5 mg tablet 5 mg PO BID Qty: 180 RF: 3 atorvastatin [Lipitor] 40 mg tablet 40 mg PO HS Qty: 90 RF: 3 diltiazem HCl [Cartia XT] 240 mg capsule,extended release 24hr 240 mg PO HS Qty: 90 RF: 3 sertraline 100 mg tablet 100 mg PO QAM Qty: 90 RF: 2 metformin 1,000 mg tablet 1,000 mg PO BIDM Qty: 180 RF: 2 metoprolol tartrate 100 mg tablet 50 mg PO BID Qty: 7 RF: 0 levothyroxine [Synthroid] 25 mcg tablet 25 mcg PO QAM Qty: 90 RF: 1 fluticasone propionate [Allergy Relief (fluticasone)] 50 mcg/actuation spray,suspension 1 - 2 spray INTNAS DAILY PRN (Reason: Nasal Congestion) Qty: 16 RF: 5 lisinopril 20 mg tablet 20 mg PO HS Qty: 90 RF: 1 glimepiride 2 mg tablet 4 mg PO QAM Qty: 180 RF: 1 montelukast 10 mg tablet 10 mg PO HS Qty: 90 RF: 1 calcium carbonate-vitamin D3 600 mg(1,500mg) -400 unit tablet 2 tab PO HS RF: 0 levetiracetam [Keppra] 500 mg tablet 1,000 mg PO BID 90 Days Qty: 360 RF: 3 ipratropium-albuterol 0.5 mg-3 mg(2.5 mg base)/3 mL solution for nebulization 3 ml inhalation Q8H PRN (Reason: shortness of breath or wheezing) Qty: 180 RF: 5 Trelegy Ellipta 100-62.5-25 mcg blister with device 1 inh INHALATION QAM Qty: 180 RF: 1 albuterol sulfate [Ventolin HFA] 90 mcg/actuation HFA aerosol inhaler 2 puff INH Q4H PRN (Reason: Shortness Of Breath Or Wheezing) Qty: 8.5 RF: 3 guaifenesin [Mucinex] 600 mg tablet extended release 12hr 600 mg PO Q12 PRN (Reason: cough) Qty: 60 RF: 1 cyanocobalamin (vitamin B-12) [Vitamin B-12] 1,000 mcg tablet 1,000 mcg PO QAM RF: 0 aspirin 81 mg Tablet,Delayed Release (Dr/Ec) 81 mg PO DAILY RF: 0 azithromycin 250 mg tablet 250 mg PO .MWF Qty: 36 RF: 0 sodium chloride 7 % solution for nebulization 4 ml INH UD RF: 0 Referrals Referrals: Lorna Tucker DO [Primary Care Provider] -
[2021-04-08 01:00] LABS: Albumin Globulin Ratio 0.8 (0.9-2); Alkaline Phosphatase 92 U/L (45-117); Bilirubin,Total 0.2 mg/dl (0.2-1); Globulin 4.1 gm/dl (2.5-4.0); Total Protein 7.5 gm/dl (6.4-8.2); Troponin I < 0.015 ng/ml (0-0.045)
[2021-04-08 01:04] LABS: Influenza A virus by PCR Negative (Neg); Influenza B virus by PCR Negative (Neg); RSV by PCR Negative (Neg); SARS CoV2 RNA(COVID-19) InHosp NEGATIVE (Negative)
[2021-04-08 01:11] LABS: Anisocytosis Present
[2021-04-08 01:40] LABS: Appearance Urine Clear (Clear); Bacteria Urine Automated Negative (Negative); Bilirubin Urine Negative (Negative); Blood Urine Negative (Negative); Cast Urine Automated 0 /lpf (0-5); Color Urine Yellow; Epithelial Cell Urine Auto 0-5 /lpf (0-5); Glucose Urine UA Negative (Negative); Ketones Urine Negative (Negative); Leukocyte Esterase Urine Negative (Negative); Nitrite Urine Negative (Negative); Protein Urine 1+ (Negative); RBC Urine Automated 0-4 /hpf (0-4); Specific Gravity Urine 1.018 (1.000-1.030); Urobilinogen Urine Negative (Negative); WBC Urine Automated 0 /hpf (0-5)
[2021-04-08] MEDS ORDERED: MAGNESIUM SULFATE / D5W 1 GM/100 ML BAG IV STA (03:08)
--- NOTE | 2021-04-08 03:41 | History & Physical Report ---
Date of Service April 08, 2021 Assessment & Plan (1) SOB (shortness of breath): Plan: 80yo male with multiple medical problems to include chronic hypoxic respiratory failure, COPD on 2L home O2 as well as PAF, CAD presenting with 3 days of SOB. Saturating 94% on his baseline 2L of O2 by NC. Chronic cough with no change in sputum color or amount. No wheeze. Ddx to include AF (rate of 110 on arrival), COPD exacerbation, early PNA, aspiration (patient with history of such), CAD -Observation to medical floor -Check BNP -Continue Trelegy/Ellipta, supplemental O2 -DuoNeb q 4 hours scheduled -Albuterol q 2 hours PRN -Mucinex 600mg BID -IS and Flutter valve -Will hold on steroids and antibiotics at this time as patient is not clearly presenting with COPD or PNA. Monitor for fever or evidence of infection. (2) Weakness: Plan: Patient reports generalized weakness and increase in falls. No focal findings on exam -Electrolyte repletion - Mg, check PO4 -Gentle IVF given in ER -PT/OT evaluation appreciated -Fall precautions (3) Type 2 diabetes mellitus: Plan: Blood sugar presently 98. Last A1C=6.5 on 02/27/21 - well controlled on oral agents -Hold Glizipide and Metformin -Lantus 5u BID, ISS -Monitor blood sugars -Continue Lisinopril (4) TIA (transient ischemic attack): Plan: Remote history. No focal neurologic findings -Continue ASA 81mg po daily -Continue Atorvastatin 40mg po qHS (5) Seizure disorder: Plan: No seizures recently -Continue keppra 1000mg po BID (6) Paroxysmal atrial fibrillation: Plan: Presently in atrial fibrillation, rate of 110 on arrival. Possibly contributing to patient's symptoms -Continue Apixaban 5mg po BID -Continue Diltiazem 240mg po qHS -Continue Metoprolol 50mg po BID (7) Mild cognitive impairment: Plan: Noted. Patient oriented and able to answer questions and follow commands without difficulty -Delerium prevention strategies, frequent orientation, ambulation with assistance as needed (8) Hypothyroidism (acquired): Plan: Chronic. TSH within normal limits at 3.28 -Continue Synthroid 25mcg po daily (9) Depression: Plan: Chronic. Stable on medication -Continue Sertraline 100mg po qAM (10) COPD (chronic obstructive pulmonary disease): Plan: As above -Continue O2 -Albuterol and Duonebs PRN -Continue Trelegy, Singulair, Azithromycin, IS and Flutter valve (11) CAD (coronary artery disease): Plan: Chronic. Stable. Troponin is negative. EKG with no ischemic findings. -Continue ASA, Atorvastatin, Metoprolol and Lisinopril Plan: F/E/N - NSS given in ER, Mg= 1.6, 2gm ordered, check PO4 x 1, CC/AHA diet - moist with nectar thick liquids, aspiration precautions per prior Speech/Swallow evaluation Ppx - On Eliquis as above Code - Full per discussion with patient Dispo - Observation to medical History of Present Illness Chief Complaint: SOB, Generalized weakness Primary Care Provider: DO Jose J Dang Yudith is a pleasant 80yo male with multiple medical problems to include chronic hypoxic respiratory failure, COPD (2L NC), PAF, Seizure, CAD, DM presenting with 3 days of persistent SOB. Patient states that he feels it has been more difficult to breath. He denies wheeze, chest tightness. He has a chronic cough which has not changed - no sputum production. He denies edema, weight gain, orthopnea. Dyspnea is not specifically exertional in nature. Denies fever, chills, night sweats. He also reports generalized weakness with increase in falls at home. He states that several days ago he had two falls in one day. He denies chest pain, palpitations, dizziness preceding or following these falls. No head trauma or loss of consciousness. Thinks he possibly trips over things in the home. No additional complaints at this time. Upon arrival to the ER patient afebrile (37.6), AF (rate 80 - 110), HD stable, saturating 94% on room air. Admission requested due to patient's generalized weakness and increase in falls. Patient's Covid-19 test is NEGATIVE ER Course: Tylenol, NSS Allergies Allergy/AdvReac Type Severity Reaction Status Date / Time pollen extracts Allergy Mild CONGESTION Verified 04/07/21 23:30 Home Medications Medication Instructions Recorded Confirmed Type calcium carbonate 600 mg (1,500 2 tab PO HS 01/16/19 04/07/21 History mg)-vitamin D3 400 unit tablet cyanocobalamin (vitamin B-12) 1,000 mcg PO QAM 11/07/19 04/07/21 History 1,000 mcg tablet (Vitamin B-12) apixaban 5 mg tablet (Eliquis) 5 mg PO BID #180 tab 03/11/20 04/07/21 Rx atorvastatin 40 mg tablet (Lipitor) 40 mg PO HS #90 tab 04/20/20 04/07/21 Rx diltiazem HCl 240 mg 240 mg PO HS #90 cap 05/06/20 04/07/21 Rx capsule,extended release 24 hr (Cartia XT) sertraline 100 mg tablet 100 mg PO QAM #90 tab 07/06/20 04/07/21 Rx metformin 1,000 mg tablet 1,000 mg PO BIDM #180 tab 08/03/20 04/07/21 Rx metoprolol tartrate 100 mg tablet 50 mg PO BID #7 tab 11/24/20 04/07/21 Rx levothyroxine 25 mcg tablet 25 mcg PO QAM #90 tab 12/11/20 04/07/21 Rx (Synthroid) fluticasone propionate 50 1 - 2 spray INTNAS DAILY PRN #16 g 12/17/20 04/07/21 Rx mcg/actuation nasal spray,suspension (Allergy Relief (fluticasone)) lisinopril 20 mg tablet 20 mg PO HS #90 tab 12/21/20 04/07/21 Rx glimepiride 2 mg tablet 4 mg PO QAM #180 tab 01/04/21 04/07/21 Rx montelukast 10 mg tablet 10 mg PO HS #90 tab 01/25/21 04/07/21 Rx levetiracetam 500 mg tablet 1,000 mg PO BID 90 Days #360 tab 02/23/21 04/07/21 Rx (Keppra) albuterol sulfate 90 mcg/actuation 2 puff INH Q4H PRN #8.5 g 02/25/21 04/07/21 Rx aerosol inhaler (Ventolin HFA) fluticasone fur. 100 mcg-umeclid 1 inh INHALATION QAM #180 ea 02/25/21 04/07/21 Rx 62.5 mcg-vilant 25 mcg inhalat.powder (Trelegy Ellipta) guaifenesin 600 mg tablet, 600 mg PO Q12 PRN #60 tab 02/25/21 04/07/21 Rx extended release 12 hr (Mucinex) ipratropium 0.5 mg-albuterol 3 mg 3 ml INHALATION Q8H PRN #180 ml 02/25/21 04/07/21 Rx (2.5 mg base)/3 mL nebulization soln aspirin 81 mg tablet,delayed 81 mg PO DAILY 02/26/21 04/07/21 History release azithromycin 250 mg tablet 250 mg PO .MWF #36 tab 03/02/21 04/07/21 Rx sodium chloride 7 % for 4 ml INH UD 04/07/21 04/07/21 History nebulization Past Med/Surg History Medical History (Updated 04/08/21 @ 03:25 by Patricia Dikcey DO) Abdominal aortic aneurysm (AAA), 30-34 mm diameter Anxiety Arteriosclerotic coronary artery disease Asthma Atrial flutter DX [address] CUELLAR IN [place] Benign prostatic hyperplasia with urinary obstruction CAD (coronary artery disease) Cerebral cavernoma Chronic anticoagulation Chronic pulmonary aspiration Depression Dyslipidemia History of acute bronchitis with bronchospasm History of basal cell carcinoma (BCC) of skin (05/2020) History of sinusitis Hypertension Hypothyroidism (acquired) Hypoxia Mild cognitive impairment On home oxygen therapy AT NIGHT Osteoarthritis Osteoporosis Paroxysmal atrial fibrillation DX [address] CUELLAR IN [place] Pneumonia Seizure 01/29/19 - X2 ON THAT DAY AND WAS ADMITTED AND STARTED ON [place] AND NO SEIZURE SINCE Seizure disorder (01/2019) TIA (transient ischemic attack) 2017 X 1 AND NONE SINCE Tremor HANDS Type 2 diabetes mellitus Vitamin B12 deficiency Vitamin D deficiency Surgical History H/O 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 History of anesthesia reaction states "stopped breathing during MOHS procedure at the [facility] [place] History of colonoscopy History of lung biopsy (03/27/19) Navigational Bronchoscopy with ICG Dye, Robotic Right Video Assisted Thoracoscopy with Right Lower Lobe Wedge Resection with Mediastinal Lymphadenectomy and Lymph Node Biopsy Dr. Lynn 03/27/19 Hx of cardiac cath 2017 -- HEART CATH WITH STENT 6 [facility] WITH DR CUELLAR LAST SEEN 12/20/2018 S/P Mohs surgery for basal cell carcinoma Family History Father Heart disease Other COPD (chronic obstructive pulmonary disease) Depression Family history non-contributory Denies family history of Ovarian cancer Prostate cancer Coronary heart disease Myocardial infarction Breast cancer Seizure Lung cancer Colorectal cancer Social History Smoking Status: Never smoker Tobacco Type: Smokeless Tobacco (Dip or Chew) Age Started Using Tobacco: 18; Age Quit Using Tobacco: 33; packs per day: 2; Years Smoked: 15; Cigarettes Per Day: 20-40; Number of Years Since Quit: 34; Second Hand Exposure: No; Hx Alcohol Use: No Hx Substance Use: No Preferred Language: Telugu Communication Ability: Effective Visual Impairment: No Limitations Hearing Ability: Use of Hearing Aid Quarry Plug And Feather Driller Required: No Beliefs That Will Affect Care: None marital status: Current Living Situation: Spouse current occupational status: retired 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, 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[employer] ([id number]) How many Children do You have: 3 Feels Safe at Home: Yes Childhood Exposure to Second-Hand Smoke: Yes Diet Comment: regular caffeine: No during the past year weight has: remained stable Dental Care, Regularly: No Physical Activity Frequency: Does not Exercise Seatbelt Use: never Sunscreen Use: Yes Assistive Devices: Glasses and Oxygen - Continuous Review of Systems Review of Systems: All systems reviewed & are unremarkable except as noted in HPI & below Patient additionally denies abdominal pain, nausea, vomiting, diarrhea or constipation Denies dysuria States his appetite is intact and he eats well at home Physical Exam Physical Exam: General: patient resting comfortably, NAD, non-toxic in appearance, AA&O x 4 Skin: warm, dry, intact, bruising noted on bilateral LE and forearms HEENT: NC/AT, PERRL, EOMI, anicteric sclera, conjunctiva without injection, external ear normal to inspection and nontender, nares patent, moist mucus membranes, dentition intact, no oropharyngeal lesions, neck supple, trachea midline, no LAD, no thyromegaly, no JVD Heart: +S1/S2, irregularly irregular, no m/r/g Lungs: equal air entry bilaterally, no rales/rhonchi/wheezes, non-productive cough Abd: +BS, soft, NT/ND, no masses/organomegaly/ascites Ext: warm, 2+ pulses in UE/LE bilaterally, no clubbing/cyanosis or edema Neuro: nonfocal, patient AA&O x 4, speech intact, no facial droop, moving all extremities on command with equal strength 5/5 Results & Data Results & Data ([facility]) Vital Signs (Past 12 Hours) Vital Signs Temp Pulse Pulse Resp BP BP Pulse Ox 04/08/21 01:31 80 16 148/77 H 94 04/07/21 23:17 80 16 94 04/07/21 22:55 37.6 C H 86 20 132/84 95 Laboratory Results Laboratory Results WBC 9.80 K/uL (4.8-10.8) 04/08/21 00:15 RBC 4.58 M/uL (4.7-6.1) L 04/08/21 00:15 Hgb 12.0 g/dL (14.0-18.0) L 04/08/21 00:15 Hct 38.4 % (42-52) L 04/08/21 00:15 MCV 83.8 fL (80-100) 04/08/21 00:15 MCH 26.2 pg (25-34) 04/08/21 00:15 MCHC 31.3 g/dL (32-36) L 04/08/21 00:15 RDW Std Deviation 68.4 fL (36.4-46.3) H 04/08/21 00:15 RDW Coeff of Ashu 22.2 % (11.5-14.5) H 04/08/21 00:15 Plt Count 253 K/uL (130-400) 04/08/21 00:15 MPV 9.4 fL (7.4-10.4) 04/08/21 00:15 Immature Gran % (Auto) 0.2 % 04/08/21 00:15 Neut % (Auto) 76.8 % 04/08/21 00:15 Lymph % (Auto) 14.2 % 04/08/21 00:15 [place] % (Auto) 8.2 % 04/08/21 00:15 Eos % (Auto) 0.3 % 04/08/21 00:15 Baso % (Auto) 0.3 % 04/08/21 00:15 Neut # (Auto) 7.53 K/uL (1.4-6.5) H 04/08/21 00:15 Lymph # (Auto) 1.39 K/uL (1.2-3.4) 04/08/21 00:15 [place] # (Auto) 0.80 K/uL (0.11-0.59) H 04/08/21 00:15 Eos # (Auto) 0.03 K/uL (0-0.5) 04/08/21 00:15 Baso # (Auto) 0.03 K/uL (0-0.2) 04/08/21 00:15 Immature Gran # (Auto) 0.02 K/uL (0.00-0.02) 04/08/21 00:15 Anisocytosis Present 04/08/21 00:15 Sodium 134 mmol/L (136-145) L 04/08/21 00:15 Potassium 4.0 mmol/L (3.5-5.1) 04/08/21 00:15 Chloride 104 mmol/L (98-107) 04/08/21 00:15 Carbon Dioxide 23 mmol/L (21-32) 04/08/21 00:15 Anion Gap 7.0 (3-11) 04/08/21 00:15 BUN 18 mg/dl (7-18) 04/08/21 00:15 Creatinine 0.85 mg/dl (0.6-1.4) 04/08/21 00:15 Est Cr Clr Drug Dosing 60.7 ml/min 04/08/21 00:15 Est GFR ( Amer) 96.1 ml/min 04/08/21 00:15 Est GFR (Non-Af Amer) 82.9 ml/min 04/08/21 00:15 BUN/Creatinine Ratio 21.1 (10-20) H 04/08/21 00:15 Glucose 98 mg/dl (70-99) 04/08/21 00:15 Calcium 9.0 mg/dl (8.5-10.1) 04/08/21 00:15 Magnesium 1.6 mg/dl (1.8-2.4) L 04/08/21 00:15 Total Bilirubin 0.2 mg/dl (0.2-1) 04/08/21 00:15 AST 12 U/L (15-37) L 04/08/21 00:15 ALT 19 U/L (12-78) 04/08/21 00:15 Alkaline Phosphatase 92 U/L (45-117) 04/08/21 00:15 Troponin I < 0.015 ng/ml (0-0.045) 04/08/21 00:15 Total Protein 7.5 gm/dl (6.4-8.2) 04/08/21 00:15 Albumin 3.4 gm/dl (3.4-5.0) 04/08/21 00:15 Globulin 4.1 gm/dl (2.5-4.0) H 04/08/21 00:15 Albumin/Globulin Ratio 0.8 (0.9-2) L 04/08/21 00:15 TSH 3.280 uIu/ml (0.300-4.500) 04/08/21 00:15 Urine Color Yellow 04/08/21 01:00 Urine Appearance Clear (Clear) 04/08/21 01:00 Urine pH 5.0 (4.5-7.5) 04/08/21 01:00 Ur Specific [place] 1.018 (1.000-1.030) 04/08/21 01:00 Urine Protein 1+ (Negative) H 04/08/21 01:00 Urine Glucose (UA) Negative (Negative) 04/08/21 01:00 Urine Ketones Negative (Negative) 04/08/21 01:00 Urine Blood Negative (Negative) 04/08/21 01:00 Urine Nitrite Negative (Negative) 04/08/21 01:00 Urine Bilirubin Negative (Negative) 04/08/21 01:00 Urine Urobilinogen Negative (Negative) 04/08/21 01:00 Ur Leukocyte Esterase Negative (Negative) 04/08/21 01:00 Urine WBC (Auto) 0 /hpf (0-5) 04/08/21 01:00 Urine RBC (Auto) 0-4 /hpf (0-4) 04/08/21 01:00 U Hyaline Cast (Auto) 0 /lpf (0-5) 04/08/21 01:00 U Epithel Cells (Auto) 0-5 /lpf (0-5) 04/08/21 01:00 Urine Bacteria (Auto) Negative (Negative) 04/08/21 01:00 SARS-CoV-2 (PCR) NEGATIVE (Negative) 04/07/21 23:55 Influenza Type A (PCR) Negative (Neg) 04/07/21 23:55 Influenza Type B (PCR) Negative (Neg) 04/07/21 23:55 RSV (RT-PCR) Negative (Neg) 04/07/21 23:55 Diagnostic Findings CXR by my interpretation with increased interstitial markings, nodules present. No PNA, PTX or suggestion of CHF CT head: Per STAT rad - No ICH, mass effect or edema. No evidence of acute cortical stroke. Mild sinus mucosal thickening and debris. ECG Additional Comments: EKG with AF at 110 bpm, no acute ischemic changes Code Status & VTE Plan VTE Prophylaxis Plan VTE Prophylaxis will be ordered: Yes PG Care Time/CCT Total # of Minutes Spent Total Time Spent with Patient: Total time spent is greater than 50% in coordination of care (as documented) at patient's floor/unit and/or counseling patient: Coding Level of Care Code INT OBSERVATION CARE 70M LVL 3 Diagnoses SOB (shortness of breath) R06.02 Weakness R53.1 Type 2 diabetes mellitus E11.9 Diabetes mellitus prison insulin use: without long term care pharmacist use Diabetes mellitus complication status: without complication TIA (transient ischemic attack) G45.9 Seizure disorder G40.909 Paroxysmal atrial fibrillation I48.0 Mild cognitive impairment G31.84 Hypothyroidism (acquired) E03.9 Depression F32.9 Depression Type: unspecified COPD (chronic obstructive pulmonary disease) J44.9 CAD (coronary artery disease) I25.10 Coronary Disease-Associated Artery/Lesion type: [place] artery [place] vs. transplanted heart: ruby heart Associated angina: without angina (1) Type 2 diabetes mellitus Diabetes mellitus long term care pharmacist insulin use: without long term care pharmacist use Diabetes mellitus complication status: without complication Qualified Code(s): E11.9 - Type 2 diabetes mellitus without complications (2) Depression Depression Type: unspecified Qualified Code(s): F32.9 - Major depressive disorder, single episode, unspecified (3) CAD (coronary artery disease) Coronary Disease-Associated Artery/Lesion type: [place] artery [place] vs. tr ansplanted heart: ruby heart Associated angina: without angina Qualified Code(s): I25.10 - Atherosclerotic heart disease of ruby coronary artery without angina pectoris
[2021-04-08] MEDS ORDERED: GLUCOSE 10 TABS/TUBE PO PRN (05:52)
[2021-04-08] MEDS ORDERED: CARBOHYDRATES FOR HYPOGLYCEMIA PO PRN (05:52)
[2021-04-08] MEDS ORDERED: ONDANSETRON INJ 2 MG/ML 2 ML VIAL IV PRN (05:52)
[2021-04-08] MEDS ORDERED: GLUCAGON FOR INJ 1 MG VIAL SQ PRN (05:52)
[2021-04-08] MEDS ORDERED: DEXTROSE 50% 50 ML SYRINGE IV PRN (05:52)
[2021-04-08] MEDS ORDERED: ACETAMINOPHEN 325 MG TAB PO PRN (05:52)
[2021-04-08] MEDS ORDERED: GLUCOSE 40% GEL 15 GM TUBE PO PRN (05:52)
[2021-04-08] MEDS ORDERED: ALBUTEROL 0.5% NEB SOLN 2.5 MG/0.5 ML VIAL NEB PRN (05:52)
[2021-04-08] MEDS ORDERED: DOCUSATE SODIUM 100 MG CAP PO PRN (05:52)
[2021-04-08] MEDS: LEVOTHYROXINE SODIUM 25 MCG TABLET PO SCH (06:36)
[2021-04-08 07:00] LABS: Phosphorus 3.2 mg/dl (2.5-4.9)
[2021-04-08] MEDS: ALBUT/IPRATROP 3MG/0.5MG NEB 3 ML VIAL NEB SCH ×3 (07:06→15:02)
--- NOTE | 2021-04-08 07:10 | CT Scan Report ---
CT SCAN OF THE BRAIN WITHOUT IV CONTRAST CLINICAL HISTORY: Fall. Generalized weakness. COMPARISON STUDY: CT of the brain dated 01/29/2019. TECHNIQUE: Unenhanced axial CT scan of the brain is performed from the vertex to the skull base. A do se lowering technique was utilized adhering to the principles of ALARA. CT DOSE: 614.27 mGy.cm FINDINGS: Brain parenchyma: There are age-related involutional changes noting moderate subcortical and periven tricular microangiopathic change. There is no hemorrhage, mass effect, or evidence of acute territori al ischemia by CT criteria. [place]-white matter differentiation is preserved. No extra-axial fluid stoney ection is seen. Ventricles, sulci, cisterns: Prominent secondary to involutional change. Intracranial vasculature: There is atherosclerotic calcification of the cavernous carotid and vertebr al arteries. Calvarium: The skeletal structures are osteopenic. No depressed calvarial fracture is identified. Sinuses and mastoids: There is mild mucosal thickening within the maxillary and ethmoid sinuses. The mastoid air cells are well pneumatized. Orbits: The bony orbits are grossly intact. There are bilateral ocular lens implants. IMPRESSION: There is no hemorrhage, mass effect, or evidence of acute territorial ischemia by CT louiet joaquina. ACT 112: Negative or not required by law. Electronically signed by: Eze Chairez M.D. 04/08/2021 7:09 AM
--- NOTE | 2021-04-08 07:41 | Hospitalist Progress Note ---
Date of Service April 08, 2021 Assessment & Plan (1) SOB (shortness of breath): Plan: 80yo male with multiple medical problems to include chronic hypoxic respiratory failure, COPD on 2L home O2 as well as PAF, CAD presenting with 3 days of SOB. Saturating 94% on his baseline 2L of O2 by NC. Chronic cough with no change in sputum color or amount. No wheeze. Ddx to include AF (rate of 110 on arrival), COPD exacerbation, early PNA, aspiration (patient with history of such), CAD -Observation to medical floor -Check BNP -Continue Trelegy/Ellipta, supplemental O2 -DuoNeb q 4 hours scheduled -Albuterol q 2 hours PRN -Mucinex 600mg BID -IS and Flutter valve -Will hold on steroids and antibiotics at this time as patient is not clearly presenting with COPD or PNA. Monitor for fever or evidence of infection. (2) Weakness: Plan: Patient reports generalized weakness and increase in falls. No focal findings on exam -Electrolyte repletion - Mg, check PO4 -Gentle IVF given in ER -PT/OT evaluation appreciated -Fall precautions (3) Type 2 diabetes mellitus: Plan: Blood sugar presently 98. Last A1C=6.5 on 02/27/21 - well controlled on oral agents -Hold Glizipide and Metformin -Lantus 5u BID, ISS -Monitor blood sugars -Continue Lisinopril (4) TIA (transient ischemic attack): Plan: Remote history. No focal neurologic findings -Continue ASA 81mg po daily -Continue Atorvastatin 40mg po qHS (5) Seizure disorder: Plan: No seizures recently -Continue keppra 1000mg po BID (6) Paroxysmal atrial fibrillation: Plan: Presently in atrial fibrillation, rate of 110 on arrival. Possibly contributing to patient's symptoms -Continue Apixaban 5mg po BID -Continue Diltiazem 240mg po qHS -Continue Metoprolol 50mg po BID (7) Mild cognitive impairment: Plan: Noted. Patient oriented and able to answer questions and follow commands without difficulty -Delerium prevention strategies, frequent orientation, ambulation with assistance as needed (8) Hypothyroidism (acquired): Plan: Chronic. TSH within normal limits at 3.28 -Continue Synthroid 25mcg po daily (9) Depression: Plan: Chronic. Stable on medication -Continue Sertraline 100mg po qAM (10) COPD (chronic obstructive pulmonary disease): Plan: As above -Continue O2 -Albuterol and Duonebs PRN -Continue Trelegy, Singulair, Azithromycin, IS and Flutter valve (11) CAD (coronary artery disease): Plan: Chronic. Stable. Troponin is negative. EKG with no ischemic findings. -Continue ASA, Atorvastatin, Metoprolol and Lisinopril Plan: F/E/N - NSS given in ER, Mg= 1.6, 2gm ordered, check PO4 x 1, CC/AHA diet - moist with nectar thick liquids, aspiration precautions per prior Speech/Swallow evaluation Ppx - On Eliquis as above Code - Full per discussion with patient Dispo - Observation to medical Admission and Anticipated Discharge Date Admission Date: April 08, 2021 Results & Data Results & Data ([facility]) Vital Signs (Past 12 Hours) Vital Signs Temp Pulse Pulse Pulse Resp BP BP 04/08/21 07:33 36.2 C L 84 16 123/80 04/08/21 07:08 97 H 18 04/08/21 05:50 36.5 C 88 18 124/76 04/08/21 04:31 36.9 C 83 16 110/62 04/08/21 01:31 80 16 148/77 H 04/07/21 23:17 80 16 04/07/21 22:55 37.6 C H 86 20 132/84 Pulse Ox 04/08/21 07:33 93 04/08/21 07:08 92 04/08/21 05:50 93 04/08/21 04:31 94 04/08/21 01:31 94 04/07/21 23:17 94 04/07/21 22:55 95 (1) Type 2 diabetes mellitus Diabetes mellitus long-term insulin use: without long-term use Diabetes mellitus complication status: without complication Qualified Code(s): E11.9 - Type 2 diabetes mellitus without complications (2) Depression Depression Type: unspecified Qualified Code(s): F32.9 - Major depressive disorder, single episode, unspecified (3) CAD (coronary artery disease) Coronary Disease-Associated Artery/Lesion type: [place] artery [place] vs. transplanted heart: [place] heart Associated angina: without angina Qualified Code(s): I25.10 - Atherosclerotic heart disease of [place] coronary artery without angina pectoris
--- NOTE | 2021-04-08 08:22 | XRay Report ---
XR chest 1V portable HISTORY: weakness COMPARISON: Chest 02/25/2021. FINDINGS: No pneumothorax. No pleural effusions. Patchy bibasilar airspace opacities have essentially resolved in the interval. No new focal lung consolidations to suggest pneumonia. The heart remains m ildly enlarged. No evidence for pulmonary edema. Old, healed bilateral rib fractures. IMPRESSION: 1. Patchy bibasilar densities have essentially resolved in the interval. 2. Stable mild cardiomegaly. ACT 112: Negative or not required by law. Electronically signed by: Reagan Villanueva M.D. 04/08/2021 8:20 AM
[2021-04-08] MEDS: guaiFENesin 600 MG TABCR PO SCH ×2 (09:10→21:19)
[2021-04-08] MEDS: ASPIRIN 81 MG ECTAB PO SCH (09:11)
[2021-04-08] MEDS: levETIRAcetam 500 MG TAB PO SCH ×2 (09:11→21:19)
[2021-04-08] MEDS: UMECLIDINIUM/VILANTEROL 62.5/25MCG 7 PUFFS/INHALER INH SCH (09:11)
[2021-04-08] MEDS: APIXABAN 5 MG TABLET PO SCH ×2 (09:11→21:20)
[2021-04-08] MEDS: SERTRALINE HCL 100 MG TABLET PO SCH (09:11)
[2021-04-08] MEDS: INSULIN GLARGINE SOLOSTAR 100 UNITS/ML 3 ML PEN SC SCH ×2 (09:11→21:11)
[2021-04-08] MEDS: FLUTICASONE FUROATE 100MCG 14 PUFFS/INHALER INH SCH (09:11)
[2021-04-08] MEDS: METOPROLOL TARTRATE 50 MG TAB PO SCH ×2 (09:11→21:18)
[2021-04-08] MEDS: INSULIN ASPART 100 UNITS/ML 3 ML PEN SC SCH ×4 (09:12→21:10)
--- NOTE | 2021-04-08 14:24 | Electrocardiogram Report ---
Test Reason : Blood Pressure : / mmHG Vent. Rate : 110 BPM Atrial Rate : 227 BPM P-R Int : 000 ms QRS Dur : 078 ms QT Int : 334 ms P-R-T Axes : 000 032 -38 degrees QTc Int : 452 ms Poor data quality, interpretation may be adversely affected Atrial fibrillation with rapid ventricular response Nonspecific ST abnormality Abnormal ECG When compared with ECG of 26-FEB-2021 04:59, ST now depressed in Inferior leads Nonspecific T wave abnormality, worse in Inferior leads Confirmed by Mohsen Miguel ([id number] on 04/08/2021 2:23:47 PM Referred By: REFERRED SELF Confirmed By:Deniz Miguel
--- NOTE | 2021-04-08 15:14 | Hospitalist Progress Note ---
Date of Service April 08, 2021 Assessment & Plan (1) SOB (shortness of breath): Plan: 80yo male with multiple medical problems to include chronic hypoxic respiratory failure, COPD on 2L home O2 as well as PAF, CAD presenting with 3 days of SOB. Saturating 95% on room air currently.. Chronic cough with no change in sputum color or amount. No wheeze. Ddx to include AF (rate of 110 on arrival), COPD exacerbation, early PNA, aspiration (patient with history of such), CAD -Observation to medical floor, has been improving quite well -Continue Trelegy/Ellipta, supplemental O2 as needed -DuoNeb q 4 hours changed to as needed -Albuterol q 2 hours PRN -Mucinex 600mg BID -IS and Flutter valve -Will hold on steroids and antibiotics at this time as patient is not clearly presenting with COPD or PNA. Monitor for fever or evidence of infection. (2) Weakness: Plan: Patient reports generalized weakness and increase in falls. No focal findings on exam -Electrolyte repletion -phosphorus is normal, magnesium was 1.6 and was repleted in ED. -PT/OT saw him and per conversation with physical therapist railway yard assistant in hallway will likely need SNF placement. -Fall precautions (3) Type 2 diabetes mellitus: Plan: Blood sugar presently 98. Last A1C=6.5 on 02/27/21 - well controlled on oral agents -Hold Glizipide and Metformin -Lantus 5u BID, ISS -Monitor blood sugars, have been well controlled -Continue Lisinopril (4) TIA (transient ischemic attack): Plan: Remote history. No focal neurologic findings -Continue ASA 81mg po daily -Continue Atorvastatin 40mg po qHS (5) Seizure disorder: Plan: No seizures recently -Continue keppra 1000mg po BID (6) Paroxysmal atrial fibrillation: Plan: Presently in atrial fibrillation, rate of 110 on arrival. Possibly contributing to patient's symptoms -Continue Apixaban 5mg po BID -Continue Diltiazem 240mg po qHS -Continue Metoprolol 50mg po BID (7) Mild cognitive impairment: Plan: Noted. Patient oriented and able to answer questions and follow commands without difficulty -Delerium prevention strategies, frequent orientation, ambulation with assistance as needed (8) Hypothyroidism (acquired): Plan: Chronic. TSH within normal limits at 3.28 -Continue Synthroid 25mcg po daily (9) Depression: Plan: Chronic. Stable on medication -Continue Sertraline 100mg po qAM (10) COPD (chronic obstructive pulmonary disease): Plan: As above -Continue O2 -Albuterol and Duonebs PRN -Continue Trelegy, Singulair, Azithromycin, IS and Flutter valve (11) CAD (coronary artery disease): Plan: Chronic. Stable. Troponin is negative. EKG with no ischemic findings. -Continue ASA, Atorvastatin, Metoprolol and Lisinopril Plan: F/E/N - NSS given in ER, Mg= 1.6, 2gm ordered, check PO4 x 1, CC/AHA diet - moist with nectar thick liquids, aspiration precautions per prior Speech/Swallow evaluation Ppx - On Eliquis as above Code - Full per discussion with patient Dispo - Observation to medical Admission and Anticipated Discharge Date Admission Date: April 08, 2021 Supervising Physician Co-Signing Physician Notes I also saw the patient from [place] portions of the history and physical examination. I agree with the assessment and plan as noted in the resident documentation. This patient was admitted earlier today by the overnight admissions team. Subjective Patient seen at bedside this morning. Patient is very pleasant and during the interview states that he is back to baseline when I comes to his breathing. He is experiencing no pain today. Notes that he has had multiple falls over the past few days. He notes that he has been just feeling progressively weaker and per his who I interviewed over the phone states that he stays in the chair watching TV most of the time. When he does attempt to get out of the chair and struggles he just gives up and remain seated. Per conversation with his on the telephone, the feels that she is unable to help care for him as she is worried he will fall. She reports that a year ago around this time patient went to [facility] for acute rehab and thinks that would be the best option so that he may regain some of strength. Patient denies any other complaints at this time. Review of Systems Review of Systems: All systems reviewed & are unremarkable except as noted in HPI & below Physical Exam Constitutional: well nourished and + frail appearing; no acute distress Eyes: + anicteric sclerae Neck: normal visual inspection and trachea midline Respiratory: normal respiratory effort; no respiratory distress and does not use accessory muscles Auscultation: + wheezes (Mild diffuse) Cardiovascular: Rate/Rhythm: regular rate and + irregularly irregular Palpation: normal PMI Vessels: no JVD Extremities: no edema Gastrointestinal (Abdomen): normal bowel sounds, soft, nontender, no hepatosplenomegaly Skin: no rashes, warm and dry Neurologic: CN's II-XI intact bilaterally and moves all extremities Psychiatric: A+Ox3, euthymic affect Eye Contact: good eye contact Results & Data Results & Data ([facility]) Vital Signs (Past 12 Hours) Vital Signs Temp Pulse Pulse Resp BP Pulse Ox 04/08/21 15:04 78 18 95 04/08/21 10:48 79 18 95 04/08/21 07:33 36.2 C L 84 16 123/80 93 04/08/21 07:08 97 H 18 92 04/08/21 05:50 36.5 C 88 18 124/76 93 04/08/21 04:31 36.9 C 83 16 110/62 94 Resident Activity Tracking Resident Involvement: Resident Care Provided Care Provided: Adult Hospital Medicine (1) Type 2 diabetes mellitus Diabetes mellitus complication status: without complication Diabetes mellitus buttermaker insulin use: without buttermaker use Qualified Code(s): E11.9 - Type 2 diabetes mellitus without complications (2) CAD (coronary artery disease) Associated angina: without angina Coronary Disease-Associated Artery/Lesion type: [place] artery [place] vs. transplanted heart: [place] heart Qualified Code(s): I25.10 - Atherosclerotic heart disease of [place] coronary artery without angina pectoris (3) Depression Depression Type: unspecified Qualified Code(s): F32.9 - Major depressive disorder, single episode, unspecified
[2021-04-08] MEDS ORDERED: ALBUT/IPRATROP 3MG/0.5MG NEB 3 ML VIAL NEB PRN (15:26)
[2021-04-08] MEDS: lisinopril 20 MG TAB PO SCH (21:18)
[2021-04-08] MEDS: dilTIAZem HCL 240 MG CAPCR PO SCH (21:19)
[2021-04-08] MEDS: ATORVASTATIN 40 MG TAB PO SCH (21:19)
[2021-04-08] MEDS: MONTELUKAST SODIUM 10 MG TABLET PO SCH (21:20)
[2021-04-09] MEDS: LEVOTHYROXINE SODIUM 25 MCG TABLET PO SCH (05:37)
[2021-04-09 07:08] LABS: Basophils # (auto) 0.04 K/uL (0-0.2); Basophils % (auto) 0.5 %; Eosinophils # (auto) 0.02 K/uL (0-0.5); Eosinophils % (auto) 0.2 %; Hematocrit (blood only) 39.2 % (42-52); Hemoglobin 12.6 g/dL (14.0-18.0); Immature Granulocytes # (auto) 0.01 K/uL (0.00-0.02); Immature Granulocytes % (auto) 0.1 %; Lymphocytes # (auto) 1.59 K/uL (1.2-3.4); Lymphocytes % (auto) 19.9 %; Mean Corpuscular Hemoglobin 26.8 pg (25-34); Mean Corpuscular Hgb Conc 32.1 g/dL (32-36); Mean Corpuscular Volume 83.2 fL (80-100); Mean Platelet Volume 9.1 fL (7.4-10.4); Monocytes % (auto) 11.2 %; Neutrophils # (auto) 5.45 K/uL (1.4-6.5); Neutrophils % (auto) 68.1 %; Platelet Count 268 K/uL (130-400); RDW Standard Deviation 67.5 fL (36.4-46.3); Red Blood Count 4.71 M/uL (4.7-6.1); White Blood Count 8.01 K/uL (4.8-10.8)
[2021-04-09 07:37] LABS: Acanthocytes 1+; Anisocytosis Present
[2021-04-09 07:41] LABS: Calcium 9.2 mg/dl (8.5-10.1); Creatinine Clr Calc Pharmacy 62.6 ml/min; Est GFR (African American) 95.1 ml/min; Est GFR (Non-African American) 82.1 ml/min; Potassium 3.8 mmol/L (3.5-5.1)
[2021-04-09] MEDS ORDERED: AZITHROMYCIN 250 MG TAB PO SCH (09:00)
[2021-04-09] MEDS: ASPIRIN 81 MG ECTAB PO SCH (09:26)
[2021-04-09] MEDS: INSULIN ASPART 100 UNITS/ML 3 ML PEN SC SCH ×4 (09:26→20:55)
[2021-04-09] MEDS: APIXABAN 5 MG TABLET PO SCH ×2 (09:26→20:46)
[2021-04-09] MEDS: METOPROLOL TARTRATE 50 MG TAB PO SCH ×2 (09:26→20:45)
[2021-04-09] MEDS: INSULIN GLARGINE SOLOSTAR 100 UNITS/ML 3 ML PEN SC SCH ×2 (09:27→20:54)
[2021-04-09] MEDS: levETIRAcetam 500 MG TAB PO SCH ×2 (09:27→20:47)
[2021-04-09] MEDS: UMECLIDINIUM/VILANTEROL 62.5/25MCG 7 PUFFS/INHALER INH SCH (09:27)
[2021-04-09] MEDS: guaiFENesin 600 MG TABCR PO SCH ×2 (09:27→20:45)
[2021-04-09] MEDS: SERTRALINE HCL 100 MG TABLET PO SCH (09:27)
[2021-04-09] MEDS: FLUTICASONE FUROATE 100MCG 14 PUFFS/INHALER INH SCH (09:27)
--- NOTE | 2021-04-09 18:55 | Hospitalist Progress Note ---
Date of Service April 09, 2021 Assessment & Plan (1) SOB (shortness of breath): Plan: 80yo male with multiple medical problems to include chronic hypoxic respiratory failure, COPD on 2L home O2 as well as PAF, CAD presenting with 3 days of SOB. Saturating 95% on room air currently.. Chronic cough with no change in sputum color or amount. No wheeze. Ddx to include AF (rate of 110 on arrival), COPD exacerbation, early PNA, aspiration (patient with history of such), CAD -Observation to medical floor, has been improving quite well -Continue Trelegy/Ellipta, supplemental O2 as needed -DuoNeb q 4 hours as needed -Albuterol q 2 hours PRN -Mucinex 600mg BID as needed -IS and Flutter valve -Will hold on steroids and antibiotics at this time as patient is not clearly presenting with COPD or PNA. Monitor for fever or evidence of infection. (2) Weakness: Plan: Patient reports generalized weakness and increase in falls. No focal findings on exam -Electrolyte repletion -phosphorus is normal, magnesium was 1.6 and was repleted in ED. -PT/OT recommends SNF placement. Awaiting placement currently. -Fall precautions (3) Type 2 diabetes mellitus: Plan: Blood sugar presently 98. Last A1C=6.5 on 02/27/21 - well controlled on oral agents -Hold Glizipide and Metformin -Lantus 5u BID, ISS -Monitor blood sugars, have been well controlled -Continue Lisinopril (4) TIA (transient ischemic attack): Plan: Remote history. No focal neurologic findings -Continue ASA 81mg po daily -Continue Atorvastatin 40mg po qHS (5) Seizure disorder: Plan: No seizures recently -Continue keppra 1000mg po BID (6) Paroxysmal atrial fibrillation: Plan: Presently in atrial fibrillation, rate of 110 on arrival. Possibly contributing to patient's symptoms -Continue Apixaban 5mg po BID -Continue Diltiazem 240mg po qHS -Continue Metoprolol 50mg po BID (7) Mild cognitive impairment: Plan: Noted. Patient oriented and able to answer questions and follow commands without difficulty -Delerium prevention strategies, frequent orientation, ambulation with assistance as needed (8) Hypothyroidism (acquired): Plan: Chronic. TSH within normal limits at 3.28 -Continue Synthroid 25mcg po daily (9) Depression: Plan: Chronic. Stable on medication -Continue Sertraline 100mg po qAM (10) COPD (chronic obstructive pulmonary disease): Plan: As above -Continue O2 as needed -Albuterol and Duonebs PRN -Continue Trelegy, Singulair, Azithromycin, IS and Flutter valve (11) CAD (coronary artery disease): Plan: Chronic. Stable. Troponin is negative. EKG with no ischemic findings. -Continue ASA, Atorvastatin, Metoprolol and Lisinopril Plan: F/E/N - NSS given in ER, Mg= 1.6, 2gm ordered, check PO4 x 1, CC/AHA diet - moist with nectar thick liquids, aspiration precautions per prior Speech/Swallow evaluation Ppx - On Eliquis as above Code - Full per discussion with patient Dispo - Observation to medical Admission and Anticipated Discharge Date Admission Date: April 09, 2021 Supervising Physician Co-Signing Physician Notes Patient seen and examined with PGY 1, Dr. Colmenares. Agree with history, exam findings, assessment and plan of care as outlined. In brief, Mr. Zurita is a 80 year old male with history of DM2, TIA, seizure disorder, pAF, COPD and mild cognitive impairment admitted with 3 days of dyspnea. Reports that his breathing is pretty good. He has no chest pain. He has no complaints. Is open to a possible short term stay at a [facility] facility. Vital signs and nursing notes reviewed. Well-appearing. Conversational. Heart with irregularly irregular rhythm. Rate controlled. Lungs are clear to auscultation. He has good air movement throughout. Labs and imaging reviewed. 1. Dyspnea. Saturating on room air, although uses home O2 at 2L at baseline. Continue trelegy, duonebs, albuterol, mucinex, IS and flutter valve. On azithro MWF chronically. 2. Weakness. Generalized. Repleting electolytes. Fall precautions. PT/OTSNF placement. 3. DM2. A1C 6.5% in February. Holding home metformin and glipizide. Currently on basal bolus. 4. Hx of TIA. Continue home ASA and atorvastatin. 5. pAF. Elevated HR on arrival at 110. Continue AC with apixaban 5mg BID, rate control with metoprolol 50mg BID and dilt 240mg. Subjective Patient seen at bedside this morning. Patient is pleasant as usual and states that he has no complaints at this. Per him and nurse there were no overnight events, still not having any shortness of breath or chest pain. Explained that we are waiting for him for placement as his feels that she would not be able to adequately care for him at the home due to his deconditioning. Patient understands and states "he is not going anywhere and will wait". Denies having a bowel movement at this time and states that this is typical for him. Otherwise patient is doing well. Review of Systems Review of Systems: All systems reviewed & are unremarkable except as noted in HPI & below Physical Exam Constitutional: well developed, well nourished and + frail appearing; no acute distress Eyes: + anicteric sclerae Respiratory: normal respiratory effort, lungs clear to auscultation Cardiovascular: Rate/Rhythm: + irregularly irregular Gastrointestinal (Abdomen): Inspection/Auscultation: normal bowel sounds Neurologic: moves all extremities Psychiatric: A+Ox3, euthymic affect Results & Data Results & Data ([facility]) Vital Signs (Past 12 Hours) Vital Signs Temp Pulse Resp BP Pulse Ox 04/09/21 14:25 36.5 C 67 19 136/76 96 04/09/21 07:55 37.0 C 86 18 128/87 92 Resident Activity Tracking Resident Involvement: Resident Care Provided Care Provided: Adult Hospital Medicine (1) Type 2 diabetes mellitus Diabetes mellitus complication status: without complication Diabetes mellitus long-term insulin use: without termite treater use Qualified Code(s): E11.9 - Type 2 diabetes mellitus without complications (2) CAD (coronary artery disease) Associated angina: without angina Coronary Disease-Associated Artery/Lesion type: [place] artery [place] vs. transplanted heart: tribal heart Qualified Code(s): I25.10 - Atherosclerotic heart disease of tribal coronary artery without angina pectoris (3) Depression Depression Type: unspecified Qualified Code(s): F32.9 - Major depressive disorder, single episode, unspecified
[2021-04-09] MEDS: lisinopril 20 MG TAB PO SCH (20:46)
[2021-04-09] MEDS: MONTELUKAST SODIUM 10 MG TABLET PO SCH (20:46)
[2021-04-09] MEDS: ATORVASTATIN 40 MG TAB PO SCH (20:46)
[2021-04-09] MEDS: dilTIAZem HCL 240 MG CAPCR PO SCH (20:47)
[2021-04-10] MEDS: LEVOTHYROXINE SODIUM 25 MCG TABLET PO SCH (05:47)
--- NOTE | 2021-04-10 07:36 | Hospitalist Progress Note ---
Date of Service April 10, 2021 Assessment & Plan (1) SOB (shortness of breath): Plan: 80yo male with PMHx of chronic hypoxic respiratory failure, COPD on 2L home O2 as well as PAF, CAD presenting with 3 days of SOB. 1) Weakness -Presented with generalized weakness and increase in falls. No focal findings on exam -ED: phos WNL, mag 1.6 repleted -PT/OT recommends SNF placement, awaiting placement. -Fall precautions 2) Dyspnea, stable -presented with 3 days SOB -O2 sat 92 RA -Cont. Trelegy/Ellipta, supplemental O2 as needed -DuoNeb q 4 hours as needed -Albuterol q 2 hours PRN -Mucinex 600mg BID as needed -IS and Flutter valve -Will hold on steroids and antibiotics; no COPD exacerbation or PNA at this time. 3) DM2, stable -Last A1C=6.5 on 02/27/21, well controlled on oral agents -Hold Glizipide and Metformin -Lantus 5u BID, ISS -Monitor BSG 4) h/o TIA -Remote history. No focal neurologic findings. -Cont. ASA 81mg po daily -Cont. Atorvastatin 40mg po qHS 5) Seizure disorder -no seizures recently -cont. keppra 1000mg po BID 6) Paroxysmal atrial fibrillation -atrial fibrillation on arrival; now NSR, HR 57 -cont. Apixaban 5mg po BID -cont. Diltiazem 240mg po qHS -cont. Metoprolol 50mg po BID 7) Mild Cognitive Impairment -Patient oriented, able to answer questions, and follow commands without difficulty -Delirium prevention strategies, frequent orientation, ambulation with assistance PRN 8) Hypothyroidism -TSH 3.28, WNL -Cont. Synthroid 25mcg po daily 9) Depression, stable -Cont Sertraline 100mg po qAM 10) COPD -See above #2 -O2 as needed -Albuterol and Duonebs PRN -Continue Trelegy, Singulair, Azithromycin, IS and Flutter valve 11) CAD -Trops neg. -EKG with no ischemic findings. -Cont. ASA, Atorvastatin, Metoprolol, and Lisinopril DVT ppx: Eliquis FEN: CC/AHA diet w/ small bite with nectar thick liquids, aspiration precautions Code: Full Dispo: medically stable for discharge. Awaiting placement. (2) Weakness: (3) Type 2 diabetes mellitus: (4) TIA (transient ischemic attack): (5) Seizure disorder: (6) Paroxysmal atrial fibrillation: (7) Mild cognitive impairment: (8) Hypothyroidism (acquired): (9) Depression: (10) COPD (chronic obstructive pulmonary disease): (11) CAD (coronary artery disease): Admission and Anticipated Discharge Date Admission Date: April 09, 2021 Supervising Physician Co-Signing Physician Notes Patient seen and examined with PGY 1, Dr. Bragg. DM2, TIA, seizure disorder, pAF, COPD and mild cognitive impairment admitted with 3 days of dyspnea. Reports that his breathing is pretty good. He has no chest pain. He has no complaints. Vital signs and nursing notes reviewed. Well-appearing. Conversational. Heart with irregularly irregular rhythm. Rate controlled. Lungs are clear to auscultation. He has fair air movement throughout. Labs and imaging reviewed. 1. Dyspnea. Saturating on room air, although uses home O2 at 2L qhs at baseline. Continue trelegy, duonebs, albuterol, mucinex, IS and flutter valve. On azithro MWF chronically. 2. Weakness. Generalized. Repleting electolytes. Fall precautions. PT/OT?SNF placement. 3. DM2. A1C 6.5 in February. Holding home metformin and glipizide. Currently on basal bolus. 4. Hx of TIA. Continue home ASA and atorvastatin. 5. pAF. Elevated HR on arrival at 110. Continue AC with apixaban 5mg BID, rate control with metoprolol 50mg BID and dilt 240mg. Dispo: Medically stable for discharge. Awaiting placement. Subjective Patient seen at bedside this morning. Rediscussed discharge plans to SNF in order to get him more conditioning before going home. He agrees with the plan. Had a bowel movement. Doing well with no acute complaints at this time. Continues to use incentive spirometer and flutter valve. No SOB when walking. Says he only uses O2 at home at night. Has not been using any at night while in the hospital. Review of Systems Review of Systems: Constitutional: denies fevers, chills, fatigue HEENT: denies congestion, sore throat CV: denies chest pain, palpitations Resp: denies shortness of breath. +mild cough GI: denies abdominal pain, nausea, vomiting, constipation, diarrhea Physical Exam Constitutional: well developed, well nourished and + frail appearing; no acute distress Eyes: + anicteric sclerae Respiratory: normal respiratory effort, lungs clear to auscultation (with decreased air movement throughout. No wheezes or ronchi.) Cardiovascular: RRR, no murmur, no edema Gastrointestinal (Abdomen): Inspection/Auscultation: normal bowel sounds Neurologic: moves all extremities Psychiatric: A+Ox3, euthymic affect Results & Data Results & Data ([facility]) Vital Signs (Past 12 Hours) Vital Signs Temp Pulse Pulse Resp BP Pulse Ox 04/09/21 22:47 74 161/86 H 04/09/21 20:42 36.9 C 62 16 161/74 H 93 Resident Activity Tracking Resident Involvement: Resident Care Provided Care Provided: Adult Hospital Medicine (1) Type 2 diabetes mellitus Diabetes mellitus complication status: without complication Diabetes mellitus long-term insulin use: without long-term use Qualified Code(s): E11.9 - Type 2 diabetes mellitus without complications (2) CAD (coronary artery disease) Associated angina: without angina Coronary Disease-Associated Artery/Lesion type: [place] artery [place] vs. transplanted heart: [place] heart Qualified Code(s): I25.10 - Atherosclerotic heart disease of [place] coronary artery wi thout angina pectoris (3) Depression Depression Type: unspecified Qualified Code(s): F32.9 - Major depressive disorder, single episode, unspecified
[2021-04-10] MEDS: UMECLIDINIUM/VILANTEROL 62.5/25MCG 7 PUFFS/INHALER INH SCH (09:41)
[2021-04-10] MEDS: APIXABAN 5 MG TABLET PO SCH ×2 (09:42→20:52)
[2021-04-10] MEDS: ASPIRIN 81 MG ECTAB PO SCH (09:42)
[2021-04-10] MEDS: SERTRALINE HCL 100 MG TABLET PO SCH (09:42)
[2021-04-10] MEDS: FLUTICASONE FUROATE 100MCG 14 PUFFS/INHALER INH SCH (09:42)
[2021-04-10] MEDS: levETIRAcetam 500 MG TAB PO SCH ×2 (09:43→20:53)
[2021-04-10] MEDS: guaiFENesin 600 MG TABCR PO SCH ×2 (09:43→20:52)
[2021-04-10] MEDS: METOPROLOL TARTRATE 50 MG TAB PO SCH ×2 (09:43→20:53)
[2021-04-10] MEDS: INSULIN ASPART 100 UNITS/ML 3 ML PEN SC SCH ×4 (09:48→20:59)
[2021-04-10] MEDS: INSULIN GLARGINE SOLOSTAR 100 UNITS/ML 3 ML PEN SC SCH ×2 (09:48→20:54)
[2021-04-10] MEDS: ATORVASTATIN 40 MG TAB PO SCH (20:51)
[2021-04-10] MEDS: dilTIAZem HCL 240 MG CAPCR PO SCH (20:52)
[2021-04-10] MEDS: lisinopril 20 MG TAB PO SCH (20:52)
[2021-04-10] MEDS: MONTELUKAST SODIUM 10 MG TABLET PO SCH (20:53)
[2021-04-11] MEDS: LEVOTHYROXINE SODIUM 25 MCG TABLET PO SCH (05:49)
[2021-04-11] MEDS: FLUTICASONE FUROATE 100MCG 14 PUFFS/INHALER INH SCH (09:20)
[2021-04-11] MEDS: UMECLIDINIUM/VILANTEROL 62.5/25MCG 7 PUFFS/INHALER INH SCH (09:20)
[2021-04-11] MEDS: ASPIRIN 81 MG ECTAB PO SCH (09:21)
[2021-04-11] MEDS: levETIRAcetam 500 MG TAB PO SCH (09:21)
[2021-04-11] MEDS: APIXABAN 5 MG TABLET PO SCH (09:21)
[2021-04-11] MEDS: guaiFENesin 600 MG TABCR PO SCH (09:21)
[2021-04-11] MEDS: SERTRALINE HCL 100 MG TABLET PO SCH (09:21)
[2021-04-11] MEDS: INSULIN GLARGINE SOLOSTAR 100 UNITS/ML 3 ML PEN SC SCH (09:22)
[2021-04-11] MEDS: INSULIN ASPART 100 UNITS/ML 3 ML PEN SC SCH ×2 (09:25→12:52)
--- NOTE | 2021-04-11 09:56 | Discharge Summary ---
Date of Service April 11, 2021 Admission HPI Per Admitting Provider Jose J Zurita is a pleasant 80yo male with multiple medical problems to include chronic hypoxic respiratory failure, COPD (2L NC), PAF, Seizure, CAD, DM presenting with 3 days of persistent SOB. Patient states that he feels it has been more difficult to breath. He denies wheeze, chest tightness. He has a chronic cough which has not changed - no sputum production. He denies edema, weight gain, orthopnea. Dyspnea is not specifically exertional in nature. Denies fever, chills, night sweats. He also reports generalized weakness with increase in falls at home. He states that several days ago he had two falls in one day. He denies chest pain, palpitations, dizziness preceding or following these falls. No head trauma or loss of consciousness. Thinks he possibly trips over things in the home. No additional complaints at this time. Upon arrival to the ER patient afebrile (37.6), AF (rate 80 - 110), HD stable, saturating 94% on room air. Admission requested due to patient's generalized weakness and increase in falls. Patient's Covid-19 test is NEGATIVE ER Course: Tylenol, NSS Principal Diagnosis Weakness, SOB Discharge Exam Constitutional well developed, well nourished and + frail appearing; no acute distress Eyes + anicteric sclerae Respiratory normal respiratory effort, lungs clear to auscultation (diminished sounds diffusely) Cardiovascular RRR, no murmur, no edema Gastrointestinal (Abdomen) normal bowel sounds, soft, nontender, no hepatosplenomegaly Neurologic moves all extremities Psychiatric A+Ox3, euthymic affect Discharge Data Allergies Allergy/AdvReac Type Severity Reaction Status Date / Time pollen extracts Allergy Mild CONGESTION Verified 04/07/21 23:30 Consultations 04/08/21 02:32 ED Decision to Admit Stat Ordered Studies 04/08/21 00:01 CT head/brain wo con Urgent Hospital Course (1) SOB (shortness of breath): 80yo male with PMHx of chronic hypoxic respiratory failure, COPD on 2L home O2 as well as PAF, CAD presenting with 3 days of SOB. 1) Weakness -Presented with generalized weakness and increase in falls. No focal findings on exam -ED: phos WNL, mag 1.6 repleted -PT/OT recommends SNF, [facility] -Fall precautions 2) Dyspnea, stable -presented with 3 days SOB -O2 sat 91 RA -cont. Trelegy/Ellipta, supplemental O2 as needed -DuoNeb q 4 hours as needed -Albuterol q 2 hours PRN -Mucinex 600mg BID as needed -IS and Flutter valve -Hold on steroids and antibiotics; no COPD exacerbation or PNA at this time. -May use home oxygen 2L at night PRN, was stable in hospital without oxygen 3) DM2, stable -Last A1C=6.5% on 02/27/21, well controlled on oral agents as an outpatient. - Restart home Glizipide and Metformin on discharge. 4) h/o TIA -Remote history. No focal neurologic findings. -Cont. ASA 81mg po daily -Cont. Atorvastatin 40mg po qHS 5) Seizure disorder -no seizures recently -cont. keppra 1000mg po BID 6) Paroxysmal atrial fibrillation -atrial fibrillation on arrival; now NSR, HR 52 -cont. Apixaban 5mg po BID -cont. Diltiazem 240mg po qHS -reduced metoprolol dose to 25mg PO BID due to low HR 7) Mild Cognitive Impairment -Patient oriented, able to answer questions, and follow commands without difficulty -Delirium prevention strategies, frequent orientation, ambulation with assistance PRN 8) Hypothyroidism -TSH 3.28, WNL -Cont. Synthroid 25mcg po daily 9) Depression, stable -Cont Sertraline 100mg po qAM 10) COPD -See above #2 -O2 as needed -Albuterol and Duonebs PRN -Continue Trelegy, Singulair, Azithromycin, IS and Flutter valve 11) CAD -Trops neg. -EKG with no ischemic findings. -Cont. ASA, Atorvastatin, and Lisinopril, metoprolol 25mg BID (2) Weakness: (3) Type 2 diabetes mellitus: (4) TIA (transient ischemic attack): (5) Seizure disorder: (6) Paroxysmal atrial fibrillation: (7) Mild cognitive impairment: (8) Hypothyroidism (acquired): (9) Depression: (10) COPD (chronic obstructive pulmonary disease): (11) CAD (coronary artery disease): Total Time Total Time Spent Total Time Spent (In Minutes): 20 Discharge Plan Discharge Items Patient Disposition: Transfer [facility] Reason For Visit: SOB, WEAKNESS Discharge Diagnosis: Weakness Activity: Per Instructions section Non-emergency contact: Primary Care Provider Call non-emergency contact if: you have any medication questions and your symptoms worsen Follow-up/Referrals: Lorna Tucker DO [Primary Care Provider] - Diet: Carb Consistent or DM2 and Heart Healthy Diet Texture: Dental soft (bite-sized) Liquid Consistency: [place] thick Addtl Attending Provider Instructions: 80yo male with PMHx of chronic hypoxic respiratory failure, COPD on 2L home O2 as well as PAF, CAD presenting with 3 days of SOB. 1) Weakness -Presented with generalized weakness and increase in falls. No focal findings on exam -ED: phos WNL, mag 1.6 repleted -PT/OT recommends SNF, [facility] -Fall precautions 2) Dyspnea, stable -presented with 3 days SOB -O2 sat 91 RA -cont. Trelegy/Ellipta, supplemental O2 as needed -DuoNeb q 4 hours as needed -Albuterol q 2 hours PRN -Mucinex 600mg BID as needed -IS and Flutter valve -Hold on steroids and antibiotics; no COPD exacerbation or PNA at this time. -May use home oxygen 2L at night PRN, was stable in hospital without oxygen 3) DM2, stable -Last A1C=6.5 on 02/27/21, well controlled on oral agents -cont. home Glizipide and Metformin 4) h/o TIA -Remote history. No focal neurologic findings. -Cont. ASA 81mg po daily -Cont. Atorvastatin 40mg po qHS 5) Seizure disorder -no seizures recently -cont. keppra 1000mg po BID 6) Paroxysmal atrial fibrillation -atrial fibrillation on arrival; now NSR, HR 52 -cont. Apixaban 5mg po BID -cont. Diltiazem 240mg po qHS -reduced metoprolol dose to 25mg PO BID due to low HR 7) Mild Cognitive Impairment -Patient oriented, able to answer questions, and follow commands without difficulty -Delirium prevention strategies, frequent orientation, ambulation with assistance PRN 8) Hypothyroidism -TSH 3.28, WNL -Cont. Synthroid 25mcg po daily 9) Depression, stable -Cont Sertraline 100mg po qAM 10) COPD -See above #2 -O2 as needed -Albuterol and Duonebs PRN -Continue Trelegy, Singulair, Azithromycin, IS and Flutter valve 11) CAD -Trops neg. -EKG with no ischemic findings. -Cont. ASA, Atorvastatin, and Lisinopril, metoprolol 25mg BID Pending Studies at Discharge: No Stand-Alone Forms: My [facility] Skilled Items Patient informed of condition?: Yes DNR: No Discharge Level of Care: Skilled Communicable Disease: No Discharge Prognosis: Stable Lines: None Urinary Catheter: No Medications and DC Order Prescriptions: New metoprolol tartrate 25 mg Tablet 25 mg PO BID Qty: 60 RF: 0 Continued Eliquis 5 mg tablet 5 mg PO BID Qty: 180 RF: 3 atorvastatin [Lipitor] 40 mg tablet 40 mg PO HS Qty: 90 RF: 3 diltiazem HCl [Cartia XT] 240 mg capsule,extended release 24hr 240 mg PO HS Qty: 90 RF: 3 sertraline 100 mg tablet 100 mg PO QAM Qty: 90 RF: 2 metformin 1,000 mg tablet 1,000 mg PO BIDM Qty: 180 RF: 2 levothyroxine [Synthroid] 25 mcg tablet 25 mcg PO QAM Qty: 90 RF: 1 fluticasone propionate [Allergy Relief (fluticasone)] 50 mcg/actuation spray,suspension 1 - 2 spray INTNAS DAILY PRN (Reason: Nasal Congestion) Qty: 16 RF: 5 lisinopril 20 mg tablet 20 mg PO HS Qty: 90 RF: 1 glimepiride 2 mg tablet 4 mg PO QAM Qty: 180 RF: 1 montelukast 10 mg tablet 10 mg PO HS Qty: 90 RF: 1 calcium carbonate-vitamin D3 600 mg(1,500mg) -400 unit tablet 2 tab PO HS RF: 0 levetiracetam [Keppra] 500 mg tablet 1,000 mg PO BID 90 Days Qty: 360 RF: 3 ipratropium-albuterol 0.5 mg-3 mg(2.5 mg base)/3 mL solution for nebulization 3 ml inhalation Q8H PRN (Reason: shortness of breath or wheezing) Qty: 180 RF: 5 Trelegy Ellipta 100-62.5-25 mcg blister with device 1 inh INHALATION QAM Qty: 180 RF: 1 albuterol sulfate [Ventolin HFA] 90 mcg/actuation HFA aerosol inhaler 2 puff INH Q4H PRN (Reason: Shortness Of Breath Or Wheezing) Qty: 8.5 RF: 3 guaifenesin [Mucinex] 600 mg tablet extended release 12hr 600 mg PO Q12 PRN (Reason: cough) Qty: 60 RF: 1 cyanocobalamin (vitamin B-12) [Vitamin B-12] 1,000 mcg tablet 1,000 mcg PO QAM RF: 0 aspirin 81 mg Tablet,Delayed Release (Dr/Ec) 81 mg PO DAILY RF: 0 azithromycin 250 mg tablet 250 mg PO .MWF Qty: 36 RF: 0 sodium chloride 7 % solution for nebulization 4 ml INH UD RF: 0 Discontinued metoprolol tartrate 100 mg tablet 50 mg PO BID Qty: 7 RF: 0 Discharge Orders: Discharge Order (Routine); Ordered 04/11/21 Ordered By: Akira Bragg Admission Data Admit Date/Time: 04/09/21 13:16 Attending Provider: Michelle Molina Admit Provider: Patricia Dickey Primary Care Provider: Lorna Tucker Other Providers: Patricia Dickey ; [facility] Other Interventions: Discharge Summary Assessment (RN) Last Done: 04/11/21 13:38 Supervising Physician Co-Signing Physician Notes Patient seen and examined with PGY 1, Dr. Bragg. DM2, TIA, seizure disorder, pAF, COPD and mild cognitive impairment admitted with 3 days of dyspnea. Reports that his breathing is pretty good. He has no chest pain. He has no complaints. Vital signs and nursing notes reviewed. Well-appearing. Conversational. Heart with irregularly irregular rhythm. Rate controlled. Lungs are clear to auscultation. He has fair air movement throughout. Labs and imaging reviewed. 1. Dyspnea. Saturating on room air, although uses home O2 at 2L qhs at baseline. Continue trelegy, duonebs, albuterol, mucinex, IS and flutter valve. On azithro MWF chronically. 2. Weakness. Generalized. Repleting electolytes. Fall precautions. PT/OT 3. DM2. A1C 6.5 in February. Holding home metformin and glipizide. Currently on basal bolus. 4. Hx of TIA. Continue home ASA and atorvastatin. 5. pAF. Elevated HR on arrival at 110. Continue AC with apixaban 5mg BID, rate control with metoprolol 50mg BID and dilt 240mg. Dispo: Discharge to [facility] today. I personally spent 25 minutes discharge planning for this patient. Resident Activity Tracking Resident Involvement: Resident Care Provided Care Provided: Adult Hospital Medicine
[2021-04-11] MEDS ORDERED: METOPROLOL TARTRATE 25 MG TAB PO SCH (21:00)
--- NOTE | 2021-04-21 11:45 | Coding Query ---
CODING QUERY To promote full compliance with coding requirements relating to patient care, provider participation is requested in all cases of warehouse loader uncertainty. Please assist us with the question(s) below: Coding Question(s): Patient admitted with leg weakness and dyspnea. On chronic oxygen 2L as baseline. Presents wtih 3 days of shortness of breath prior to admission. Saturating at 94%. Given duonebs, mucinex, albuterol, IS and Flutter valve. Continuing with home azithromycin MWF . Please document, if known or suspected, the etiology of the dyspnea. Thanks for your help! Stuart Chavarria [facility] Physician's Response(s): COPD Principal Diagnosis: "that condition established after study, to be chiefly responsible for occasioning the admission of the patient to the hospital for care." Co-Existing Principal Diagnosis: "when two or more diagnoses equally meet the criteria for principal diagnosis as determined by the circumstances of admission, diagnostic work up, and/or therapy provided, and the Alphabetic Index, Tabular List, or another coding guideline does not provide sequencing direction, any one of the diagnoses may be sequenced first." "When the physician has documented what appears to be a current diagnosis in the body of the record, but has not included the diagnosis in the final diagnostic statement, the physician should be asked whether the diagnosis should be added." (Source Coding [facility] 2 QTR90. p3-4) LUISA
== END 2021-04-11 15:10 | DRG 191 ==
LOC: 3N 22:43 → ED 22:43 → SUATTDRO 04-08 03:08 → 3N 04-08 05:25

== ENCOUNTER 2021-05-19 07:48 | Inpatient (IN) ==
[2021-05-19] MEDS ORDERED: SODIUM CHLORIDE 0.9% 500 ML IV SCH (08:30)
[2021-05-19 08:35] LABS: Basophils # (auto) 0.03 K/uL (0-0.2); Basophils % (auto) 0.2 %; Eosinophils # (auto) 0.06 K/uL (0-0.5); Eosinophils % (auto) 0.3 %; Hematocrit (blood only) 38.8 % (42-52); Hemoglobin 12.6 g/dL (14.0-18.0); Immature Granulocytes # (auto) 0.03 K/uL (0.00-0.02); Immature Granulocytes % (auto) 0.2 %; Lymphocytes # (auto) 0.85 K/uL (1.2-3.4); Lymphocytes % (auto) 4.3 %; Mean Corpuscular Hemoglobin 27.6 pg (25-34); Mean Corpuscular Hgb Conc 32.5 g/dL (32-36); Mean Corpuscular Volume 85.1 fL (80-100); Monocytes % (auto) 9.1 %; Neutrophils % (auto) 85.9 %; Platelet Count 242 K/uL (130-400); RDW Coefficient of Variation 20.3 % (11.5-14.5); Red Blood Count 4.56 M/uL (4.7-6.1); White Blood Count 19.77 K/uL (4.8-10.8)
--- NOTE | 2021-05-19 08:40 | Electrocardiogram Report ---
Test Reason : Blood Pressure : / mmHG Vent. Rate : 073 BPM Atrial Rate : 073 BPM P-R Int : 140 ms QRS Dur : 076 ms QT Int : 398 ms P-R-T Axes : 051 018 034 degrees QTc Int : 438 ms Poor data quality, interpretation may be adversely affected Normal sinus rhythm Left atrial enlargement Nonspecific ST abnormality Anterolateral leads Abnormal ECG When compared with ECG of 07-APR-2021 23:54, Sinus rhythm has replaced Atrial fibrillation Vent. rate has decreased BY 37 BPM Confirmed by Paolo Fontenot ([id number]) on 05/19/2021 8:39:36 AM Referred By: Confirmed By:Paolo Fontenot
[2021-05-19 08:45] LABS: INR 1.1 (0.9-1.1); Prothrombin Time 10.7 Seconds (9.0-12.0)
--- NOTE | 2021-05-19 08:46 | XRay Report ---
XR chest 1V portable CLINICAL HISTORY: weakness. Evaluate cardiopulmonary status COMPARISON STUDY: 04/07/2021 TECHNIQUE: 1 view of the chest FINDINGS: Single frontal view of the chest demonstrates the heart size to be enlarged. Compared to the previous examination, there has been interval development of an alveolar opacity in the retrocardiac region o f the left lower lobe characteristic of pneumonia. The remainder the lungs are clear. There is also b lunting of left costophrenic angle representing a small pleural effusion. There is no evidence for ri ght pleural effusion. There is no evidence for vascular congestion. There is no acute osseous patholo gy. IMPRESSION: Interval development of a confluent alveolar opacity involving the left lower lobe with a djacent left pleural effusion. The findings are characteristic of lobar pneumonia. ACT 112: Negative or not required by law. Electronically signed by: Noman Crane M.D. 05/19/2021 8:45 AM
[2021-05-19 08:53] LABS: Anisocytosis Present
[2021-05-19 09:00] LABS: Troponin I < 0.03 ng/ml (0-0.04)
[2021-05-19] MEDS ORDERED: CEFEPIME 2,000 MG/20 ML VIAL IV STA (09:16)
[2021-05-19 09:33] LABS: Alanine Aminotransferase 9 U/L (7-52); Albumin Globulin Ratio 1.2 (0.9-2); Albumin Level 4.3 gm/dl (3.4-5.0); Alkaline Phosphatase 80 U/L (34-104); Aspartate Aminotransferase 13 U/L (13-39); Bilirubin,Total 0.4 mg/dl (0.2-1.0); Blood Urea Nitrogen 17 mg/dl (6-23); Calcium 9.4 mg/dl (8.5-10.1); Chloride 100 mmol/L (98-107); Globulin 3.5 gm/dl (2.5-4.0); Glucose 154 mg/dl (70-99); Potassium 3.6 mmol/L (3.5-5.1); Sodium 136 mmol/L (136-145); Thyroid Stimulating Hormone 3.032 uIu/ml (0.300-4.500); Total Protein 7.8 gm/dl (6.0-8.3)
--- NOTE | 2021-05-19 09:36 | Emergency Department Note ---
History of Present Illness General Chief complaint: Fall Stated complaint: FALLS, WEAKNESS Time Seen by Provider: 05/19/21 08:08 History of Present Illness This 80-year-old male patient with significant past medical history of paroxysmal atrial fibrillation, COPD, chronic bronchitis, weakness, anemia, on chronic anticoagulation, presents to the emergency department today via ambulance for evaluation of progressive weakness, several falls over the past few days, and fatigue. The patient states he has had a decreased appetite. History is difficult and limited due to patient's altered mental status. His called the ambulance this morning due to his symptoms. The patient states he has stumbled over the rug a few times and his legs have given out on him over the past few days. He denies any head injury. He denies any chest pain or dyspnea. No abdominal pain, nausea, vomiting. No pain at this time. No current complaints by patient. Home Medications Medication Instructions Recorded Confirmed Type calcium carbonate 600 mg-vitamin 2 tab PO HS 01/16/19 05/19/21 History D3 10 mcg (400 unit) tablet cyanocobalamin (vitamin B-12) 1,000 mcg PO QAM 11/07/19 05/19/21 History 1,000 mcg tablet (Vitamin B-12) apixaban 5 mg tablet (Eliquis) 5 mg PO BID #180 tab 03/11/20 05/19/21 Rx atorvastatin 40 mg tablet (Lipitor) 40 mg PO HS #90 tab 04/20/20 05/19/21 Rx diltiazem HCl 240 mg 240 mg PO HS #90 cap 05/06/20 05/19/21 Rx capsule,extended release 24 hr (Cartia XT) sertraline 100 mg tablet 100 mg PO QAM #90 tab 07/06/20 05/19/21 Rx levothyroxine 25 mcg tablet 25 mcg PO QAM #90 tab 12/11/20 05/19/21 Rx (Synthroid) fluticasone propionate 50 1 - 2 spray INTNAS DAILY PRN #16 g 12/17/20 05/19/21 R x mcg/actuation nasal spray,suspension (Allergy Relief (fluticasone)) lisinopril 20 mg tablet 20 mg PO HS #90 tab 12/21/20 05/19/21 Rx glimepiride 2 mg tablet 4 mg PO QAM #180 tab 01/04/21 05/19/21 Rx montelukast 10 mg tablet 10 mg PO HS #90 tab 01/25/21 05/19/21 Rx levetiracetam 500 mg tablet 1,000 mg PO BID 90 Days #360 tab 02/23/21 05/19/21 Rx (Keppra) albuterol sulfate 90 mcg/actuation 2 puff INH Q4H PRN #8.5 g 02/25/21 05/19/21 Rx aerosol inhaler (Ventolin HFA) fluticasone fur. 100 mcg-umeclid 1 inh INHALATION QAM #180 ea 02/25/21 05/19/21 Rx 62.5 mcg-vilant 25 mcg inhalat.powder (Trelegy Ellipta) guaifenesin 600 mg tablet, 600 mg PO Q12 PRN #60 tab 02/25/21 05/19/21 Rx extended release 12 hr (Mucinex) ipratropium 0.5 mg-albuterol 3 mg 3 ml INHALATION Q8H PRN #180 ml 02/25/21 05/19/21 Rx (2.5 mg base)/3 mL nebulization soln aspirin 81 mg tablet,delayed 81 mg PO DAILY 02/26/21 05/19/21 History release azithromycin 250 mg tablet 250 mg PO .MWF #36 tab 03/02/21 05/19/21 Rx sodium chloride 7 % for 4 ml INH UD 04/07/21 05/19/21 History nebulization metoprolol tartrate 25 mg tablet 25 mg PO BID #180 tab 05/04/21 05/19/21 Rx metformin 850 mg tablet 850 mg PO BID #180 tab 05/13/21 05/19/21 Rx Allergies Allergy/AdvReac Type Severity Reaction Status Date / Time pollen extracts Allergy Mild CONGESTION Verified 04/07/21 23:30 Past Med/Surg History Medical History Abdominal aortic aneurysm (AAA), 30-34 mm diameter Anxiety Arteriosclerotic coronary artery disease Asthma Atrial flutter DX [address] CUELLAR IN [place] Benign prostatic hyperplasia with urinary obstruction CAD (coronary artery disease) Cerebral cavernoma Chronic anticoagulation Chronic pulmonary aspiration Depression Dyslipidemia Fever History of acute bronchitis with bronchospasm History of basal cell carcinoma (BCC) of skin (05/2020) History of sinusitis Hypertension Hypothyroidism (acquired) Hypoxia Mild cognitive impairment On home oxygen therapy AT NIGHT Osteoarthritis Osteoporosis Paroxysmal atrial fibrillation DX [address] CUELLAR IN [place] Pneumonia Seizure 01/29/19 - X2 ON THAT DAY AND WAS ADMITTED AND STARTED ON [place] AND NO SEIZURE SINCE Seizure disorder (01/2019) TIA (transient ischemic attack) 2017 X 1 AND NONE SINCE Tremor HANDS Type 2 diabetes mellitus Vitamin B12 deficiency Vitamin D deficiency Surgical History H/O 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 History of anesthesia reaction states "stopped breathing during MOHS procedure at the [facility] History of colonoscopy History of lung biopsy (03/27/19) Navigational Bronchoscopy with ICG Dye, Robotic Right Video Assisted Thoracoscopy with Right Lower Lobe Wedge Resection with Mediastinal Lymphadenectomy and Lymph Node Biopsy Dr. Lynn 03/27/19 Hx of cardiac cath 2017 -- HEART CATH WITH STENT 6 [facility] WITH DR CUELLAR LAST SEEN 12/20/2018 S/P Mohs surgery for basal cell carcinoma Family History Father Heart disease Other COPD (chronic obstructive pulmonary disease) Depression Family history non-contributory Denies family history of Ovarian cancer Prostate cancer Coronary heart disease Myocardial infarction Breast cancer Seizure Lung cancer Colorectal cancer Social History Smoking Status: Never smoker Tobacco Type: Cigarettes Age Started Using Tobacco: 18; Age Quit Using Tobacco: 33; packs per day: 2; Years Smoked: 15; Cigarettes Per Day: 20-40; Number of Years Since Quit: 34; Second Hand Exposure: No; Do You Dip or Chew Tobacco: No; Hx Alcohol Use: No Hx Substance Use: No Preferred Language: Syriac Communication Ability: Impaired Visual Impairment: No Limitations Hearing Ability: Use of Hearing Aid Mortar Worker Required: No Beliefs That Will Affect Care: None marital status: Current Living Situation: Spouse current occupational status: retired 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 Review of Systems A total of 10 systems reviewed and were otherwise negative Physical Exam Vital Signs Vital Signs - 24 hr 05/19/21 07:49 05/19/21 07:55 05/19/21 08:00 Temperature 36.9 C Temperature Source Oral Pulse Rate 74 73 74 Pulse Rate from SpO2 Sensor 72 74 Pulse Rhythm Regular Pulse Strength Normal Respiratory Rate 18 24 25 H Respiratory Effort / Characteristics Non-Labored Spontaneous Respiratory Depth Normal Blood Pressure 154/76 H 151/78 H Blood Pressure Mean 102 102 Blood Pressure Position Lying Pulse Oximetry 90 91 89 L Oxygen Delivery Method Room Air Room Air Room Air Oxygen Flow Rate Sepsis Recent Fever Within 48 Hours No Sepsis New/Unexplained Change in Mental Status No Sepsis Action Taken by Nursing No Action Required 05/19/21 08:30 05/19/21 08:54 05/19/21 09:00 Temperature Temperature Source Pulse Rate 70 70 67 Pulse Rate from SpO2 Sensor 68 66 Pulse Rhythm Pulse Strength Respiratory Rate 25 H 18 24 Respiratory Effort / Characteristics Respiratory Depth Blood Pressure 163/76 H 159/85 H Blood Pressure Mean 105 109 Blood Pressure Position Pulse Oximetry 91 94 95 Oxygen Delivery Method Room Air Nasal Cannula Nasal Cannula Oxygen Flow Rate 2 2 Sepsis Recent Fever Within 48 Hours Sepsis New/Unexplained Change in Mental Status Sepsis Action Taken by Nursing 05/19/21 09:30 Temperature Temperature Source Pulse Rate 68 Pulse Rate from SpO2 Sensor 67 Pulse Rhythm Pulse Strength Respiratory Rate 25 H Respiratory Effort / Characteristics Respiratory Depth Blood Pressure 152/74 H Blood Pressure Mean 100 Blood Pressure Position Pulse Oximetry 96 Oxygen Delivery Method Nasal Cannula Oxygen Flow Rate 2 Sepsis Recent Fever Within 48 Hours Sepsis New/Unexplained Change in Mental Status Sepsis Action Taken by Nursing VITALS: Vitals are noted on the nurse's note and reviewed by myself. O2 saturation 86% on RA. 94% on 2L O2 via NC GENERAL: This is a pleasant 80-year-old white male, in no acute distress, nondiaphoretic, well-developed well-nourished. SKIN: The skin was without rashes, erythema, edema, or bruising. There is no tenting of the skin. Capillary refill less than 2 seconds. HEAD: Normocephalic atraumatic. EYES: Conjunctivae without injection, sclerae without icterus. NOSE: Patent, turbinates without inflammation or discharge. No sinus tenderness. MOUTH: Mucous membranes moist. Tonsils are not enlarged. Pharynx without erythema or exudate. Uvula midline. Airway patent. Tongue does not deviate. NECK: Supple without nuchal rigidity. No lymphadenopathy. Cervical spine is nontender. No JVD. HEART: Regular rate and rhythm without murmurs gallops or rubs. LUNGS: Clear to auscultation bilaterally without wheezes, rales or rhonchi. No retractions or accessory muscle use. ABDOMEN: Positive bowel sounds x 4. Soft, nontender, without masses or organomegaly. Johnson sign negative. No guarding or rebound tenderness. MUSCULOSKELETAL: No muscle atrophy, erythema, or edema noted. Full range of motion without joint tenderness in all extremities. No tenderness to palpation. Normal gait. Strength 5/5 throughout. NEURO: Patient was alert. Oriented to place. Not oriented to person or time. Normal sensation to light and sharp touch. Deep tendon reflexes 2+ throughout. No focal neurological deficits. Course Course The patient was seen and evaluated as above. An order was placed for continuous cardiac monitoring. The monitor shows a normal sinus rhythm at a rate of 70 bpm. IV access obtained, labs drawn. Patient gently hydrated with IV fluids Imaging performed and reviewed by myself and radiologist as noted. Labs reviewed by myself. I discussed the findings with the patient at bedside. Recommended admission. Patient was agreeable. I discussed the case with the [facility] hospitalist, Brian Hansen PA-C. He did agree to see and evaluate the patient. I discussed the case with the player development manager. I discussed the case with the ED pharmacist, Janee. We did discuss appropriate antibiotic treatment for the pneumonia. We agreed on cefepime. This was administered. Please see hospitalist dictation regarding ongoing management care of this patient. Administered Medications Apixaban (Apixaban 5 Mg Tablet) 5 mg PO BID PATO Stop: 06/18/21 20:59 Last Admin: 05/19/21 20:35 Dose: 5 mg Documented by: [id number] Atorvastatin Calcium (Atorvastatin 40 Mg Tab) 40 mg PO HS PATO Stop: 06/18/21 20:59 Last Admin: 05/19/21 21:39 Dose: 40 mg Documented by: [id number] Diltiazem HCl (Diltiazem Hcl 240 Mg Capcr) 240 mg PO [facility] Stop: 06/18/21 20:59 Last Admin: 05/19/21 20:35 Dose: 240 mg Documented by: [id number] Cefepime HCl 2,000 mg/ Syringe 20 mls @ 5 mls/min IV Q12 [facility]; Protocol Stop: 05/26/21 20:59 Last Admin: 05/19/21 20:34 Dose: 5 mls/min Documented by: [id number] Insulin Aspart (Insulin Aspart Per Unit) 0 units SC ACHS [facility] Stop: 06/18/21 16:29 Last Admin: 05/19/21 20:56 Dose: Not Given Documented by: [id number] Admin: 05/19/21 17:48 Dose: 5 units Documented by: [id number] Cosigned by: [id number] Levetiracetam (Levetiracetam 500 Mg Tab) 1,000 mg PO BID [facility] Stop: 06/18/21 20:59 Last Admin: 05/19/21 20:35 Dose: 1,000 mg Documented by: [id number] Lisinopril (Lisinopril 20 Mg Tab) 20 mg PO [facility] Stop: 06/18/21 20:59 Last Admin: 05/19/21 20:36 Dose: 20 mg Documented by: [id number] Metoprolol Tartrate (Metoprolol Tartrate 25 Mg Tab) 25 mg PO BID [facility] Stop: 06/18/21 20:59 Last Admin: 05/19/21 20:34 Dose: 25 mg Documented by: [id number] Montelukast Sodium (Montelukast Sodium 10 Mg Tablet) 10 mg PO [facility] Stop: 06/18/21 20:59 Last Admin: 05/19/21 21:39 Dose: 10 mg Documented by: [id number] Multivitamins/Minerals (Calcium 600mg + Vit D 400 Iu Tab) 2 tab PO [facility] Stop: 06/18/21 20:59 Last Admin: 05/19/21 20:36 Dose: 2 tab Documented by: [id number] Discontinued Medications Sodium Chloride (Nss) 500 mls @ 999 mls/hr IV .Q31M [facility] Stop: 05/19/21 09:00 Last Infusion: 05/19/21 09:21 Dose: 0 mls/hr Documented by: [id number] Admin: 05/19/21 08:50 Dose: 999 mls/hr Documented by: [id number] Cefepime HCl (Maxipime) 2,000 mg in 20 mls @ 5 mls/min IV NOW STA; Protocol Stop: 05/19/21 09:19 Last Admin: 05/19/21 09:42 Dose: 5 mls/min Documented by: [id number] Medical Decision Making Differential Diagnosis Infection, dehydration, metabolic abnormality, hypo/hyperglycemia, electrolyte disturbance, anemia, hypoxia, cardiac sources, intracerebral event, toxicologic, neurologic, as well as other pathologies. Medical Records Attestation: I reviewed the patient's medical records. Home Medications Current Medication List: was personally reviewed by me Laboratory Data Leukocytosis of 19,000. Mild anemia which is consistent with patient's baseline. Hemoglobin 12.6. No thrombocytopenia. INR 1.1. Renal, hepatic function electrolytes without significant abnormality. Glucose 154. Troponin negative. TSH 3.032. Procalcitonin 0.07. Lactic acid 1.0. COVID-19 testing negative. Result diagrams: 05/19/21 08:05 05/19/21 08:05 Lab Results 05/19/21 05/19/21 05/19/21 Range/Units 07:37 08:05 08:05 WBC 19.77 H (4.8-10.8) K/uL RBC 4.56 L (4.7-6.1) M/uL Hgb 12.6 L (14.0-18.0) g/dL Hct 38.8 L (42-52) % MCV 85.1 (80-100) fL MCH 27.6 (25-34) pg MCHC 32.5 (32-36) g/dL RDW Std Deviation 64.0 H (36.4-46.3) fL RDW Coeff of Ashu 20.3 H (11.5-14.5) % Plt Count 242 (130-400) K/uL MPV 10.0 (7.4-10.4) fL Immature Gran % (Auto) 0.2 % Neut % (Auto) 85.9 % Lymph % (Auto) 4.3 % Whitfield % (Auto) 9.1 % Eos % (Auto) 0.3 % Baso % (Auto) 0.2 % Neut # (Auto) 17.00 H (1.4-6.5) K/uL Lymph # (Auto) 0.85 L (1.2-3.4) K/uL Whitfield # (Auto) 1.80 H (0.11-0.59) K/uL Eos # (Auto) 0.06 (0-0.5) K/uL Baso # (Auto) 0.03 (0-0.2) K/uL Immature Gran # (Auto) 0.03 H (0.00-0.02) K/uL Anisocytosis Present PT 10.7 (9.0-12.0) Seconds INR 1.1 (0.9-1.1) Sodium (136-145) mmol/L Potassium (3.5-5.1) mmol/L Chloride (98-107) mmol/L Carbon Dioxide (21-32) mmol/L Anion Gap (3-11) BUN (6-23) mg/dl Creatinine (0.6-1.4) mg/dl Est Cr Clr Drug Dosing ml/min Est GFR ( Amer) ml/min Est GFR (Non-Af Amer) ml/min BUN/Creatinine Ratio (10-20) Glucose (70-99) mg/dl Lactate (0.4-2.0) mmol/L Calcium (8.5-10.1) mg/dl Total Bilirubin (0.2-1.0) mg/dl AST (13-39) U/L ALT (7-52) U/L Alkaline Phosphatase (34-104) U/L Troponin I (0-0.04) ng/ml Total Protein (6.0-8.3) gm/dl Albumin (3.4-5.0) gm/dl Globulin (2.5-4.0) gm/dl Albumin/Globulin Ratio (0.9-2) Procalcitonin (0-0.5) ng/ml TSH (0.300-4.500) uIu/ml Nasal Screen MRSA (PCR) Negative (Negative) SARS-CoV-2, RNA, NAAT (NEGATIVE) 05/19/21 05/19/21 05/19/21 Range/Units 08:05 08:05 08:51 WBC (4.8-10.8) K/uL RBC (4.7-6.1) M/uL Hgb (14.0-18.0) g/dL Hct (42-52) % MCV (80-100) fL MCH (25-34) pg MCHC (32-36) g/dL RDW Std Deviation (36.4-46.3) fL RDW Coeff of Ashu (11.5-14.5) % Plt Count (130-400) K/uL MPV (7.4-10.4) fL Immature Gran % (Auto) % Neut % (Auto) % Lymph % (Auto) % Whitfield % (Auto) % Eos % (Auto) % Baso % (Auto) % Neut # (Auto) (1.4-6.5) K/uL Lymph # (Auto) (1.2-3.4) K/uL Whitfield # (Auto) (0.11-0.59) K/uL Eos # (Auto) (0-0.5) K/uL Baso # (Auto) (0-0.2) K/uL Immature Gran # (Auto) (0.00-0.02) K/uL Anisocytosis PT (9.0-12.0) Seconds INR (0.9-1.1) Sodium 136 (136-145) mmol/L Potassium 3.6 (3.5-5.1) mmol/L Chloride 100 (98-107) mmol/L Carbon Dioxide 25 (21-32) mmol/L Anion Gap 11 (3-11) BUN 17 (6-23) mg/dl Creatinine 0.76 (0.6-1.4) mg/dl Est Cr Clr Drug Dosing 81.4 ml/min Est GFR ( Amer) 100.6 ml/min Est GFR (Non-Af Amer) 86.8 ml/min BUN/Creatinine Ratio 22.4 H (10-20) Glucose 154 H (70-99) mg/dl Lactate (0.4-2.0) mmol/L Calcium 9.4 (8.5-10.1) mg/dl Total Bilirubin 0.4 (0.2-1.0) mg/dl AST 13 (13-39) U/L ALT 9 (7-52) U/L Alkaline Phosphatase 80 (34-104) U/L Troponin I < 0.03 (0-0.04) ng/ml Total Protein 7.8 (6.0-8.3) gm/dl Albumin 4.3 (3.4-5.0) gm/dl Globulin 3.5 (2.5-4.0) gm/dl Albumin/Globulin Ratio 1.2 (0.9-2) Procalcitonin 0.07 (0-0.5) ng/ml TSH 3.032 (0.300-4.500) uIu/ml Nasal Screen MRSA (PCR) (Negative) SARS-CoV-2, RNA, NAAT NEGATIVE (NEGATIVE) 05/19/21 Range/Units 09:14 WBC (4.8-10.8) K/uL RBC (4.7-6.1) M/uL Hgb (14.0-18.0) g/dL Hct (42-52) % MCV (80-100) fL MCH (25-34) pg MCHC (32-36) g/dL RDW Std Deviation (36.4-46.3) fL RDW Coeff of Ashu (11.5-14.5) % Plt Count (130-400) K/uL MPV (7.4-10.4) fL Immature Gran % (Auto) % Neut % (Auto) % Lymph % (Auto) % Whitfield % (Auto) % Eos % (Auto) % Baso % (Auto) % Neut # (Auto) (1.4-6.5) K/uL Lymph # (Auto) (1.2-3.4) K/uL Whitfield # (Auto) (0.11-0.59) K/uL Eos # (Auto) (0-0.5) K/uL Baso # (Auto) (0-0.2) K/uL Immature Gran # (Auto) (0.00-0.02) K/uL Anisocytosis PT (9.0-12.0) Seconds INR (0.9-1.1) Sodium (136-145) mmol/L Potassium (3.5-5.1) mmol/L Chloride (98-107) mmol/L Carbon Dioxide (21-32) mmol/L Anion Gap (3-11) BUN (6-23) mg/dl Creatinine (0.6-1.4) mg/dl Est Cr Clr Drug Dosing ml/min Est GFR ( Amer) ml/min Est GFR (Non-Af Amer) ml/min BUN/Creatinine Ratio (10-20) Glucose (70-99) mg/dl Lactate 1.0 (0.4-2.0) mmol/L Calcium (8.5-10.1) mg/dl Total Bilirubin (0.2-1.0) mg/dl AST (13-39) U/L ALT (7-52) U/L Alkaline Phosphatase (34-104) U/L Troponin I (0-0.04) ng/ml Total Protein (6.0-8.3) gm/dl Albumin (3.4-5.0) gm/dl Globulin (2.5-4.0) gm/dl Albumin/Globulin Ratio (0.9-2) Procalcitonin (0-0.5) ng/ml TSH (0.300-4.500) uIu/ml Nasal Screen MRSA (PCR) (Negative) SARS-CoV-2, RNA, NAAT (NEGATIVE) Imaging Data Radiologist's Impression: Chest X-Ray 05/19/21 08:19 XR chest 1V portable CLINICAL HISTORY: weakness. Evaluate cardiopulmonary status COMPARISON STUDY: 04/07/2021 TECHNIQUE: 1 view of the chest FINDINGS: Single frontal view of the chest demonstrates the heart size to be enlarged. Compared to the previous examination, there has been interval development of an alveolar opacity in the retrocardiac region of the left lower lobe characteristic of pneumonia. The remainder the lungs are clear. There is also blunting of left costophrenic angle representing a small pleural effusion. There is no evidence for right pleural effusion. There is no evidence for vascular congestion. There is no acute osseous pathology. IMPRESSION: Interval development of a confluent alveolar opacity involving the left lower lobe with adjacent left pleural effusion. The findings are characteristic of lobar pneumonia. ACT 112: Negative or not required by law. Electronically signed by: Noman Crane M.D. 05/19/2021 8:[address] 05/19/21 08:35 CT head/brain wo con CLINICAL HISTORY: weakness, confusion Technique: Contiguous axial CT images of the head were acquired from the base of the skull to the vertex without intravenous contrast administration. Images were viewed in brain, subdural and bone windows. Automated dose lowering techniques and/or adjustment according to patient size were utilized for this exam. Comparison: Comparison is made to CT head 04/08/2021 Findings: Areas of decreased attenuation are present in the periventricular and subcortical white matter bilaterally consistent with small vessel ischemic disease. Generalized cerebral atrophy with commensurate enlargement of the ventricles, sulci, and cisterns is also present. There is no acute intracranial hemorrhage or evidence of acute territorial infarction. No shift of the midline structures, mass effect, or extra-axial abnormalities are shown. Atherosclerotic calcifications are present in the intracranial segments of the internal carotid arteries. Mucosal thickening and mucous retention cysts are seen in the bilateral maxillary sinuses, ethmoid air cells, and frontal sinuses. Mucosal thickening is seen in the bilateral sphenoid sinuses. The orbits appear normal. There are no acute fractures of the calvaria or scalp swelling. Impression: No acute intracranial hemorrhage, no evidence of acute territorial infarction or other acute intracranial disease process. ACT 112: Negative or not required by law. Electronically signed by: Serafin Chaidez M.D. 05/19/2021 9:37 AM ECG Data Attestation: I personally reviewed and interpreted this ECG as follows: Indication: + altered mental status Rate (beats per minute): 73 Rhythm: + normal sinus ECG Fowler: + Normal ECG ST segments: no ST depression, no ST elevation or no T-wave inversions Comparison ECG Date: from (04/07/2021) Change: the following changes noted (NSR has replaced Afib with RVR) Blood Pressure Blood Pressure Findings: Elevated blood pressure Blood Pressure Disposition: further management by hospitalist ALAINA Narrative This 80-year-old male patient presents to the emergency department today via ambulance for evaluation of altered mental status. The patient's noted that the patient has been altered, more confused, more lethargic and weak than normal. He denies any symptoms upon arrival. The noted that he has been falling over the past few days. Denies head injury, but he is on chronic anticoagulation and unclear history. Because of this, CT imaging performed and was negative. Work-up to include labs and chest x-ray consistent with pneumonia. The patient has a leukocytosis of 19,000. Left lobar infiltrate noted. Patient was started on cefepime after consultation with the ED pharmacist. He will be admitted to the [facility] hospitalist service. Please see hospitalist dictation regarding ongoing management care of this patient The chart was completed utilizing [employer] voice recognition software. Grammatical errors, random word insertions, pronoun errors, and incomplete sentences are an occasional consequence of this system due to software limitations, ambient noise, and hardware issues. Any formal questions or concerns about the content, text, or information contained within the body of this dictation should be directly addressed to the provider for clarification. Impression & Plan Pneumonia, Weakness, Altered mental status, Hypoxia Discharge Plan Visit Data Chief Complaint: Fall Stated Complaint: FALLS, WEAKNESS ED Provider: Gael Mcintyre ED Midlevel Provider: Stella Morton Discharge Problem: Pneumonia, Weakness, Altered mental status, Hypoxia Patient Disposition: Admitted As Inpatient Discharge Instructions Interventions: ED Discharge Assessment Last Done: 05/19/21 12:05 Addendum May 20, 2021 01:12 HPI: 80y/o gentleman with pmhx of pafib on Eliquis, copd on nocturnal O2, anemia, mild cognitive impairment who presents to the ED for evaluation of weakness and confusion. reports increased falls for several days. A/P: CT head negative. Leukocytosis 19.7K. CXR c/w LLL PNA. IV ABX. Admission. I reviewed the patient's past medical history, medications, and visit nursing notes. I discussed the case with the physician dental office assistant and agree with the findings and plan as documented in PAC Harry's note. Discharge Problem: Pneumonia Qualifiers: Pneumonia type: due to unspecified organism Laterality: left Lung location: lower lobe of lung Qualified Code(s): J18.9 - Pneumonia, unspecified organism Altered mental status Qualifiers: Altered mental status type: unspecified Qualified Code(s): R41.82 - Altered mental status, unspecified
--- NOTE | 2021-05-19 09:38 | CT Scan Report ---
CT head/brain wo con CLINICAL HISTORY: weakness, confusion Technique: Contiguous axial CT images of the head were acquired from the base of the skull to the ethan ana maria without intravenous contrast administration. Images were viewed in brain, subdural and bone [facility]. Automated dose lowering techniques and/or adjustment according to patient size were utilized for this exam. Comparison: Comparison is made to CT head 04/08/2021 Findings: Areas of decreased attenuation are present in the periventricular and subcortical white matter bilate rally consistent with small vessel ischemic disease. Generalized cerebral atrophy with commensurate e nlargement of the ventricles, sulci, and cisterns is also present. There is no acute intracranial hem orrhage or evidence of acute territorial infarction. No shift of the midline structures, mass effect, or extra-axial abnormalities are shown. Atherosclerotic calcifications are present in the intracran ial segments of the internal carotid arteries. Mucosal thickening and mucous retention cysts are seen in the bilateral maxillary sinuses, ethmoid ai r cells, and frontal sinuses. Mucosal thickening is seen in the bilateral sphenoid sinuses. The orbit s appear normal. There are no acute fractures of the calvaria or scalp swelling. Impression: No acute intracranial hemorrhage, no evidence of acute territorial infarction or other acute intracra nial disease process. ACT 112: Negative or not required by law. Electronically signed by: Serafin Chaidez M.D. 05/19/2021 9:37 AM
--- NOTE | 2021-05-19 09:47 | History & Physical Report ---
Date of Service May 19, 2021 Assessment & Plan (1) Pneumonia: Plan: Due to the patient's clinical presentation as well as radiographic findings of pneumonia and elevated white blood cell count he will be admitted to the hospital proceeding as follows: Patient will be continued on antibiotics in the form of cefepime as initiated by the emergency department. An MRSA nasal swab has been sent. If this comes back positive we will consider adding MRSA coverage to his antibiotic regimen We will follow for results of blood cultures that of been sent and adjust antibiotics accordingly (2) Weakness: Plan: The patient notes that he ambulates with a cane and sometimes a walker at home which she was not using at the time of his fall today. We will request PT and OT evaluations We will involve case management to ensure safe disposition (3) Seizure disorder: Plan: There were no recorded or witnessed seizures at the time of the patient's fall We will maintain the patient on his home medications in the form of Keppra (4) COPD (chronic obstructive pulmonary disease): Plan: It does not appear that the patient is having a COPD exacerbation We will maintain the patient on oxygen as the patient uses this at home usually at night We will maintain the patient on his home regimen of nebulizers and inhalers (5) A-fib: Plan: Patient is currently in normal sinus rhythm suggesting that he has paroxysmal atrial fibrillation His heart rate is presently well controlled We will maintain him on his home dose of metoprolol for Patient takes Eliquis and we will maintain him on his home dose of this medication As the patient takes Eliquis there is no need for any additional DVT prevention I discussed CODE STATUS with the patient and he notes in the event of cardiopulmonary arrest he wishes to be a level 1 full code. History of Present Illness Chief Complaint: "I fell at home" Primary Care Provider: Lorna Tucker, This is a 80-year-old male who presented to [facility] secondary to falling at home. Patient says that he ambulates with both a cane and a walker at times at home. He says this morning he was ambulating without either of his assistive devices when he walked across a rug where his feet got tripped up and it and then his legs gave out causing him to fall. The patient said he fell on his left shoulder blade. He said that he did not hit his head or lose consciousness. Prior to his fall he denied any chest pain, palpitations, lightheadedness, dizziness, or fainting. Patient says that he is a diabetic and takes oral medications. He does not feel as though he had low blood sugar prior to his fall. Since his fall the patient says that he really does not have much in the way of pain. He specifically denies any headache, blurred vision, double vision, or abdominal pain. He denies any nausea or vomiting. The patient presented to the emergency department via EMS as noted above. A chest x-ray was performed that showed the patient had evidence of a left lower lobe pneumonia which was not present on an EKG in April 2021. A CT scan of patient's head did not show any acute intracranial hemorrhage or strokes. Labs include a CBC her white blood cell count was elevated at 19.7. His hemoglobin and hematocrit were 12.6 and 38.8.His platelet count was noted to be within the normal range. An EKG showed normal sinus rhythm without changes indicative of acute ischemia. Cardiac enzymes were checked and were not elevated. A COVID test was performed and was noted to be negative. A TSH was noted to be within the normal range. Chemistry profile showed sodium and potassium along with BUN were within normal range. There is no significant elevation of LFTs. As the patient was noted to have pneumonia on his chest x-ray I did ask him symptomatology concerning this. Over the past several days he notes that he has been somewhat more fatigued and has had a poor appetite. He has not had any nausea, vomiting, or diarrhea. He has not had any fevers, shakes, chills. He denies any chest pain or pleurisy. He says he has not noted any worsening shortness of breath. It is nowhere the mention that the patient says that he did receive a COVID- vaccine as well as a COVID booster. Since arrival to the emergency department the treating clinician in the emergency department has initiated antibiotics in the form of cefepime. Patient has had blood cultures as well as an MRSA nasal swab sent. Old records were reviewed and the patient's most recent admission was in April of 2021. During that admission the patient was admitted with shortness of breath felt to be due to COPD exacerbation. He also had generalized weakness at that time. It is no other mention that he did have a COVID test at that time that was negative. At the time of my interview he was resting comfortably in bed and he was in no distress. Allergies Allergy/AdvReac Type Severity Reaction Status Date / Time pollen extracts Allergy Mild CONGESTION Verified 04/07/21 23:30 Home Medications Medication Instructions Recorded Confirmed Type calcium carbonate 600 mg-vitamin 2 tab PO HS 01/16/19 05/19/21 History D3 10 mcg (400 unit) tablet cyanocobalamin (vitamin B-12) 1,000 mcg PO QAM 11/07/19 05/19/21 History 1,000 mcg tablet (Vitamin B-12) apixaban 5 mg tablet (Eliquis) 5 mg PO BID #180 tab 03/11/20 05/19/21 Rx atorvastatin 40 mg tablet (Lipitor) 40 mg PO HS #90 tab 04/20/20 05/19/21 Rx diltiazem HCl 240 mg 240 mg PO HS #90 cap 05/06/20 05/19/21 Rx capsule,extended release 24 hr (Cartia XT) sertraline 100 mg tablet 100 mg PO QAM #90 tab 07/06/20 05/19/21 Rx levothyroxine 25 mcg tablet 25 mcg PO QAM #90 tab 12/11/20 05/19/21 Rx (Synthroid) fluticasone propionate 50 1 - 2 spray INTNAS DAILY PRN #16 g 12/17/20 05/19/21 Rx mcg/actuation nasal spray,suspension (Allergy Relief (fluticasone)) lisinopril 20 mg tablet 20 mg PO HS #90 tab 12/21/20 05/19/21 Rx glimepiride 2 mg tablet 4 mg PO QAM #180 tab 01/04/21 05/19/21 Rx montelukast 10 mg tablet 10 mg PO HS #90 tab 01/25/21 05/19/21 Rx levetiracetam 500 mg tablet 1,000 mg PO BID 90 Days #360 tab 02/23/21 05/19/21 Rx (Keppra) albuterol sulfate 90 mcg/actuation 2 puff INH Q4H PRN #8.5 g 02/25/21 05/19/21 Rx aerosol inhaler (Ventolin HFA) fluticasone fur. 100 mcg-umeclid 1 inh INHALATION QAM #180 ea 02/25/21 05/19/21 Rx 62.5 mcg-vilant 25 mcg inhalat.powder (Trelegy Ellipta) guaifenesin 600 mg tablet, 600 mg PO Q12 PRN #60 tab 02/25/21 05/19/21 Rx extended release 12 hr (Mucinex) ipratropium 0.5 mg-albuterol 3 mg 3 ml INHALATION Q8H PRN #180 ml 02/25/21 05/19/21 Rx (2.5 mg base)/3 mL nebulization soln aspirin 81 mg tablet,delayed 81 mg PO DAILY 02/26/21 05/19/21 History release azithromycin 250 mg tablet 250 mg PO .MWF #36 tab 03/02/21 05/19/21 Rx sodium chloride 7 % for 4 ml INH UD 04/07/21 05/19/21 History nebulization metoprolol tartrate 25 mg tablet 25 mg PO BID #180 tab 05/04/21 05/19/21 Rx metformin 850 mg tablet 850 mg PO BID #180 tab 05/13/21 05/19/21 Rx Past Med/Surg History Medical History Abdominal aortic aneurysm (AAA), 30-34 mm diameter Anxiety Arteriosclerotic coronary artery disease Asthma Atrial flutter DX [address] [place]LL[place] Benign prostatic hyperplasia with urinary obstruction CAD (coronary artery disease) Cerebral cavernoma Chronic anticoagulation Chronic pulmonary aspiration Depression Dyslipidemia Fever History of acute bronchitis with bronchospasm History of basal cell carcinoma (BCC) of skin (05/2020) History of sinusitis Hypertension Hypothyroidism (acquired) Hypoxia Mild cognitive impairment On home oxygen therapy AT NIGHT Osteoarthritis Osteoporosis Paroxysmal atrial fibrillation DX [address] CUELLAR IN [place] Pneumonia Seizure 01/29/19 - X2 ON THAT DAY AND WAS ADMITTED AND STARTED ON [facility] AND NO SEIZURE SINCE Seizure disorder (01/2019) TIA (transient ischemic attack) 2017 X 1 AND NONE SINCE Tremor HANDS Type 2 diabetes mellitus Vitamin B12 deficiency Vitamin D deficiency Surgical History H/O 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 History of anesthesia reaction states "stopped breathing during MOHS procedure at the [facility] History of colonoscopy History of lung biopsy (03/27/19) Navigational Bronchoscopy with ICG Dye, Robotic Right Video Assisted Thoracoscopy with Right Lower Lobe Wedge Resection with Mediastinal Lymphadenectomy and Lymph Node Biopsy Dr. Lynn 03/27/19 Hx of cardiac cath 2017 -- HEART CATH WITH STENT [facility] WITH DR CUELLAR LAST SEEN 12/20/2018 S/P Mohs surgery for basal cell carcinoma Family History Father Heart disease Other COPD (chronic obstructive pulmonary disease) Depression Family history non-contributory Denies family history of Ovarian cancer Prostate cancer Coronary heart disease Myocardial infarction Breast cancer Seizure Lung cancer Colorectal cancer Social History Smoking Status: Never smoker Tobacco Type: Cigarettes Age Started Using Tobacco: 18; Age Quit Using Tobacco: 33; packs per day: 2; Years Smoked: 15; Cigarettes Per Day: 20-40; Number of Years Since Quit: 34; Second Hand Exposure: No; Do You Dip or Chew Tobacco: No; Hx Alcohol Use: No Hx Substance Use: No Preferred Language: Syriac Communication Ability: Effective Visual Impairment: No Limitations Hearing Ability: Use of Hearing Aid 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: No Beliefs That Will Affect Care: None marital status: Current Living Situation: Spouse current occupational status: retired 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 Review of Systems Constitutional: + fatigue; no fever, no chills and no sweats Eyes: no blind spots and no diplopia Ear, Nose, Mouth, Throat: no ear pain, no tinnitus, no sore throat and no dysphagia Respiratory: no cough, no dyspnea and no pain on inspiration Cardiovascular: no chest pain, no palpitations and no syncope Gastrointestinal: no abdominal pain, no nausea, no vomiting and no diarrhea/loose stools Genitourinary: no dysuria Musculoskeletal: no back pain Integumentary: no rash Neurologic: + gait abnormality, + unsteadiness and + falls; no localized weakness Physical Exam Physical Exam: No evidence of head trauma Constitutional: WD/WN, vitals as above Eyes: PERRL Wears glasses ENMT: Ears: no hearing impairment Mouth: no oropharynx abnormality No evidence of hemotympanum Neck: trachea midline Respiratory: Patient was not using accessory muscles to aid in respiration. His breath sounds were noted to be decreased at the left base. No rhonchi or wheezing were noted. Cardiovascular: Rate/Rhythm: regular rate and regular rhythm Gastrointestinal (Abdomen): Abdomen is soft, nontender, nondistended. There is no pain with palpation Musculoskeletal: No gross orthopedic abnormalities in the extremities noted. Patient had palpable dorsalis pedis pulses bilaterally. There is no calf tenderness. There are no nonhealing foot wounds. Skin: no rashes Neurologic: CN's II-XI intact bilaterally and moves all extremities Psychiatric: Patient is alert to place and person. He was confused to time Results & Data Results & Data ([facility]) Vital Signs (Past 12 Hours) Vital Signs Temp Pulse Resp BP Pulse Ox 05/19/21 08:54 70 18 94 05/19/21 08:30 70 25 H 163/76 H 91 05/19/21 08:00 74 25 H 89 L 05/19/21 07:55 73 24 151/78 H 91 05/19/21 07:49 36.9 C 74 18 154/76 H 90 Supervising Physician Co-Signing Physician Notes Patient seend and examined at [facility]. Performed a physical examination and obtained clinical history D/W APC Dee plan of care Reviewed above document and agree with it. Answered patient's question Patient will be admitted for pneumonia and will place on antibiotics. PG Care Time/CCT Total # of Minutes Spent Total Time Spent with Patient: Total time spent is greater than 50% in coordination of care (as documented) at patient's floor/unit and/or counseling patient: Coding Level of Care Code 40074 Initial Inpt Care Lvl 3 Diagnoses Pneumonia J18.9 Weakness R53.1 Seizure disorder G40.909 COPD (chronic obstructive pulmonary disease) J44.9 A-fib I48.91 Atrial fibrillation type: unspecified (1) A-fib Atrial fibrillation type: unspecified Qualified Code(s): I48.91 - Unspecified atrial fibrillation
[2021-05-19 10:16] LABS: Anion Gap 11 (3-11); BUN Creatinine Ratio 22.4 (10-20); Carbon Dioxide 25 mmol/L (21-32); Creatinine Clr Calc Pharmacy 81.4 ml/min; Est GFR (African American) 100.6 ml/min; Est GFR (Non-African American) 86.8 ml/min
[2021-05-19] MEDS ORDERED: ALBUTEROL HFA 8 GM INHALER INH PRN (12:55)
[2021-05-19] MEDS ORDERED: ALBUT/IPRATROP 3MG/0.5MG NEB 3 ML VIAL INH PRN (12:55)
[2021-05-19] MEDS ORDERED: PHARMACY GLYCEMIC MGMT CONSULT PRN (15:04)
[2021-05-19 15:24] LABS: Appearance Urine Clear (Clear); Bacteria Urine Automated Negative (Negative); Bilirubin Urine Negative (Negative); Blood Urine Negative (Negative); Cast Urine Automated 0 /lpf (0-5); Color Urine Yellow; Glucose Urine UA Negative (Negative); Ketones Urine Negative (Negative); Leukocyte Esterase Urine Negative (Negative); Nitrite Urine Negative (Negative); Protein Urine 1+ (Negative); RBC Urine Automated 0-4 /hpf (0-4); Specific Gravity Urine 1.015 (1.000-1.030); Urobilinogen Urine Negative (Negative)
[2021-05-19] MEDS: INSULIN ASPART PER UNIT SC SCH ×2 (17:48→20:56)
[2021-05-19] MEDS: CEFEPIME 2,000 MG in SYRINGE 0 ML IV SCH (20:34)
[2021-05-19] MEDS: METOPROLOL TARTRATE 25 MG TAB PO SCH (20:34)
[2021-05-19] MEDS: APIXABAN 5 MG TABLET PO SCH (20:35)
[2021-05-19] MEDS: levETIRAcetam 500 MG TAB PO SCH (20:35)
[2021-05-19] MEDS: dilTIAZem HCL 240 MG CAPCR PO SCH (20:35)
[2021-05-19] MEDS: lisinopril 20 MG TAB PO SCH (20:36)
[2021-05-19] MEDS: CALCIUM 600MG + VIT D 400 IU TAB PO SCH (20:36)
[2021-05-19] MEDS ORDERED: metFORMIN HCL 850 MG TAB PO SCH (21:00)
[2021-05-19] MEDS: ATORVASTATIN 40 MG TAB PO SCH (21:39)
[2021-05-19] MEDS: MONTELUKAST SODIUM 10 MG TABLET PO SCH (21:39)
[2021-05-20] MEDS: LEVOTHYROXINE SODIUM 25 MCG TABLET PO SCH (05:54)
[2021-05-20 07:10] LABS: Basophils # (auto) 0.03 K/uL (0-0.2); Basophils % (auto) 0.2 %; Eosinophils # (auto) 0.18 K/uL (0-0.5); Eosinophils % (auto) 1.1 %; Hematocrit (blood only) 37.1 % (42-52); Immature Granulocytes # (auto) 0.03 K/uL (0.00-0.02); Immature Granulocytes % (auto) 0.2 %; Lymphocytes % (auto) 6.3 %; Mean Corpuscular Hemoglobin 27.4 pg (25-34); Mean Corpuscular Hgb Conc 32.3 g/dL (32-36); Mean Corpuscular Volume 84.7 fL (80-100); Monocytes # (auto) 1.84 K/uL (0.11-0.59); Monocytes % (auto) 11.7 %; Neutrophils # (auto) 12.71 K/uL (1.4-6.5); Neutrophils % (auto) 80.5 %; Platelet Count 224 K/uL (130-400); RDW Coefficient of Variation 20.2 % (11.5-14.5); RDW Standard Deviation 64.1 fL (36.4-46.3); Red Blood Count 4.38 M/uL (4.7-6.1); White Blood Count 15.79 K/uL (4.8-10.8)
[2021-05-20 07:31] LABS: Anisocytosis Present; Poikilocytosis Present
[2021-05-20 07:33] LABS: BUN Creatinine Ratio 16.7 (10-20); Calcium 9.3 mg/dl (8.5-10.1); Creatinine Clr Calc Pharmacy 85.9 ml/min; Est GFR (African American) 102.8 ml/min; Est GFR (Non-African American) 88.7 ml/min; Potassium 3.3 mmol/L (3.5-5.1)
[2021-05-20] MEDS ORDERED: CARBOHYDRATES FOR HYPOGLYCEMIA PO PRN (09:00)
[2021-05-20] MEDS ORDERED: GLUCAGON FOR INJ 1 MG VIAL IM PRN (09:00)
[2021-05-20] MEDS ORDERED: GLUCOSE 40% GEL 15 GM TUBE PO PRN (09:00)
[2021-05-20] MEDS ORDERED: DEXTROSE 50% 50 ML SYRINGE IV PRN (09:00)
[2021-05-20] MEDS ORDERED: NON-FORMULARY MEDICATION (Fluticasone-Umeclidin-Vilanter [Trelegy Ellipta] 100-62.5-25 mcg INH SCH (09:00)
[2021-05-20] MEDS ORDERED: GLIMEPIRIDE 2 MG TAB PO SCH (09:00)
[2021-05-20] MEDS ORDERED: GLUCOSE 10 TABS/TUBE PO PRN (09:00)
[2021-05-20] MEDS: METOPROLOL TARTRATE 25 MG TAB PO SCH ×2 (09:16→21:24)
[2021-05-20] MEDS: SERTRALINE HCL 100 MG TABLET PO SCH (09:16)
[2021-05-20] MEDS: ASPIRIN 81 MG ECTAB PO SCH (09:16)
[2021-05-20] MEDS: APIXABAN 5 MG TABLET PO SCH ×2 (09:16→20:39)
[2021-05-20] MEDS: CEFEPIME 2,000 MG in SYRINGE 0 ML IV SCH ×2 (09:16→20:39)
[2021-05-20] MEDS: CYANOCOBALAMIN 500 MCG TABLET (VITAMIN B-12) PO SCH (09:16)
[2021-05-20] MEDS: levETIRAcetam 500 MG TAB PO SCH ×2 (09:16→21:24)
[2021-05-20] MEDS: FLUTICASONE FUROATE 100MCG 14 PUFFS/INHALER INH SCH (09:17)
[2021-05-20] MEDS: UMECLIDINIUM/VILANTEROL 62.5/25MCG 7 PUFFS/INHALER INH SCH (09:17)
[2021-05-20] MEDS: INSULIN ASPART PER UNIT SC SCH ×4 (09:17→21:39)
--- NOTE | 2021-05-20 10:59 | Pharmacy Report ---
Pharmacy Glycemic Short Note 2 - Date of Service May 20, 2021 - Glycemic Short BSG Results (Last 24 hours): 05/19/21 05/19/21 05/19/21 12:42 17:31 20:40 Glucose POC Glucose 135 H 146 H 89 05/20/21 05/20/21 06:26 08:10 Glucose 130 H POC Glucose 117 H OUTPATIENT ANTIDIABETIC REGIMEN: * glimepiride, metformin * A1c 6.5% 02/2021 ASSESSMENT: * 80 year old male presenting with pneumonia, s/p fall. Type 2 diabetic managed only on oral agents at home * Novolog started last evening, will continue today PLAN FOR INPATIENT GLYCEMIC CONTROL: * Hold outpatient oral diabetes medications * Basal insulin * Lantus - not indicated at this time * Bolus insulin * NovoLog per scale ACHS or Q6hrs while NPO * Goal Range: Low 120 mg/dL - High 160 mg/dL * Correction Factor: 30 mg/dL/unit * Nutritional / Prandial insulin per carb ratio of 1 unit per 20 grams CHO consumed PLAN FOR DISCHARGE: * A1c 6.5% - goal <8% ; reasonable to continue home diabetic regimen as long as patient is not experiencing frequent hypoglycemia
[2021-05-20] MEDS: CALCIUM 600MG + VIT D 400 IU TAB PO SCH (21:23)
[2021-05-20] MEDS: lisinopril 20 MG TAB PO SCH (21:23)
[2021-05-20] MEDS: ATORVASTATIN 40 MG TAB PO SCH (21:24)
[2021-05-20] MEDS: dilTIAZem HCL 240 MG CAPCR PO SCH (21:24)
[2021-05-20] MEDS: MONTELUKAST SODIUM 10 MG TABLET PO SCH (21:24)
--- NOTE | 2021-05-20 22:23 | Hospitalist Progress Note ---
Date of Service May 20, 2021 Assessment & Plan (1) Pneumonia: Plan: Due to the patient's clinical presentation as well as radiographic findings of pneumonia and elevated white blood cell count he will be admitted to the hospital proceeding as follows: Patient will be continued on antibiotics in the form of cefepime as initiated by the emergency department. An MRSA nasal swab has been sent. If this comes back positive we will consider adding MRSA coverage to his antibiotic regimen We will follow for results of blood cultures that of been sent and adjust antibiotics accordingly On 05/20 Patient is requring 2 liters nasal cannula. Patient is afebrile. cpnt antibiotics, (2) Weakness: Plan: The patient notes that he ambulates with a cane and sometimes a walker at home which she was not using at the time of his fall today. We will request PT and OT evaluations We will involve case management to ensure safe disposition (3) Seizure disorder: Plan: There were no recorded or witnessed seizures at the time of the patient's fall We will maintain the patient on his home medications in the form of Keppra (4) COPD (chronic obstructive pulmonary disease): Plan: It does not appear that the patient is having a COPD exacerbation We will maintain the patient on oxygen as the patient uses this at home usually at night We will maintain the patient on his home regimen of nebulizers and inhalers (5) A-fib: Plan: Patient is currently in normal sinus rhythm suggesting that he has paroxysmal atrial fibrillation His heart rate is presently well controlled We will maintain him on his home dose of metoprolol for Patient takes Eliquis and we will maintain him on his home dose of this medication As the patient takes Eliquis there is no need for any additional DVT prevention I discussed CODE STATUS with the patient and he notes in the event of cardiopulmonary arrest he wishes to be a level 1 full code. Admission and Anticipated Discharge Date Admission Date: May 19, 2021 Subjective Patient reports breathing better. He villa sno new complaints. Review of Systems Review of Systems: All systems reviewed & are unremarkable except as noted in HPI & below Physical Exam Physical Exam: Physical Exam: No evidence of head trauma Constitutional: WD/WN, vitals as above Eyes: PERRL Wears glasses ENMT: Ears: no hearing impairment Mouth: no oropharynx abnormality No evidence of hemotympanum Neck: trachea midline Respiratory: Patient was not using accessory muscles to aid in respiration. improved sounds at left base. No rhonchi or wheezing were noted. Cardiovascular: Rate/Rhythm: regular rate and regular rhythm Gastrointestinal (Abdomen): Abdomen is soft, nontender, nondistended. There is no pain with palpation Musculoskeletal: No gross orthopedic abnormalities in the extremities noted. Patient had palpable dorsalis pedis pulses bilaterally. There is no calf tenderness. There are no nonhealing foot wounds. Skin: no rashes Neurologic: CN's II-XI intact bilaterally and moves all extremities Psychiatric: Patient is alert to place and person. He was confused to time Results & Data Results [facility] ([facility]) Vital Signs (Past 12 Hours) Vital Signs Temp Pulse Resp BP Pulse Ox Pulse Ox Pulse Ox 05/20/21 21:21 36.7 C 68 16 165/83 H 92 05/20/21 15:00 36.5 C 62 18 124/68 90 05/20/21 11:22 90 85 L PG Care Time/CCT Total # of Minutes Spent Total Time Spent with Patient: Total time spent is greater than 50% in coordination of care (as documented) at patient's floor/unit and/or counseling patient: Coding Level of Care Code 00164 Subseq Hosp Care Lvl 2 Diagnoses Pneumonia J18.9 Weakness R53.1 Seizure disorder G40.909 COPD (chronic obstructive pulmonary disease) J44.9 A-fib I48.91 Atrial fibrillation type: unspecified (1) A-fib Atrial fibrillation type: unspecified Qualified Code(s): I48.91 - Unspecified atrial fibrillation
[2021-05-21] MEDS: LEVOTHYROXINE SODIUM 25 MCG TABLET PO SCH (06:08)
[2021-05-21] MEDS: APIXABAN 5 MG TABLET PO SCH ×2 (07:22→20:08)
[2021-05-21] MEDS: levETIRAcetam 500 MG TAB PO SCH ×2 (07:22→20:09)
[2021-05-21] MEDS: METOPROLOL TARTRATE 25 MG TAB PO SCH ×2 (07:22→20:09)
[2021-05-21] MEDS: ASPIRIN 81 MG ECTAB PO SCH (07:22)
[2021-05-21] MEDS: FLUTICASONE FUROATE 100MCG 14 PUFFS/INHALER INH SCH (07:23)
[2021-05-21] MEDS: SERTRALINE HCL 100 MG TABLET PO SCH (07:23)
[2021-05-21] MEDS: CYANOCOBALAMIN 500 MCG TABLET (VITAMIN B-12) PO SCH (07:23)
[2021-05-21] MEDS: UMECLIDINIUM/VILANTEROL 62.5/25MCG 7 PUFFS/INHALER INH SCH (07:23)
[2021-05-21] MEDS: CEFEPIME 2,000 MG in SYRINGE 0 ML IV SCH ×3 (07:24→23:32)
[2021-05-21] MEDS: INSULIN ASPART PER UNIT SC SCH ×4 (08:42→21:12)
--- NOTE | 2021-05-21 11:56 | Pharmacy Report ---
Pharmacy Glycemic Sign Off Nt - Date of Service May 21, 2021 - Assessment & Plan ASSESSMENT: * Pharmacy was consulted by Dr Agudelo on 05/19/21 for glycemic control and to write orders per [facility] inpatient glycemic control protocol. * Major changes made by pharmacy to antidiabetic regimen include: * Addition of Novolog * Patient has been receiving/requiring 5-7 units of insulin per day for adequate glycemic control * BSGs ranging 125-135 mg/dl * Regimen has only required minor adjustments over the past 48hrs to achieve this level of control * Do not anticipate further changes in patient status that would quickly deteriorate glycemic control (i.e. patient to be NPO for upcoming procedure, steroids tapering, starting tube feedings, etc). * Please see recommendations for outpatient antidiabetic regimen below. PLAN FOR INPATIENT GLYCEMIC CONTROL: No changes needed to current regimen. * Hold basal * Continue NovoLog per scale ACHS/Q6hrs while NPO * Goal range = 120-160 mg/dl * CF = 30 mg/dl/unit * CR = 1 unit for ever 20 g CHO consumed * Pharmacy is signing off of glycemic consult and will no longer be making adjustments to inpatient regimen. Please feel free to re-consult if needed. Thank you. DISCHARGE RECOMMENDATIONS: * A1c 6.5 % on 02/27/21 - continue current outpatient regimen at discharge
[2021-05-21] MEDS: dilTIAZem HCL 240 MG CAPCR PO SCH (20:07)
[2021-05-21] MEDS: ATORVASTATIN 40 MG TAB PO SCH (20:08)
[2021-05-21] MEDS: lisinopril 20 MG TAB PO SCH (20:08)
[2021-05-21] MEDS: MONTELUKAST SODIUM 10 MG TABLET PO SCH (20:08)
[2021-05-21] MEDS: CALCIUM 600MG + VIT D 400 IU TAB PO SCH (20:10)
--- NOTE | 2021-05-21 22:37 | Hospitalist Progress Note ---
Date of Service May 21, 2021 Assessment & Plan (1) Pneumonia: Plan: Due to the patient's clinical presentation as well as radiographic findings of pneumonia and elevated white blood cell count he will be admitted to the hospital proceeding as follows: Patient will be continued on antibiotics in the form of cefepime as initiated by the emergency department. An MRSA nasal swab has been sent: and is negative. We will follow for results of blood cultures that of been sent and adjust antibiotics accordingly -patient is doing well. will transition to tomorrow and will discharge to [facility]. (2) Weakness: Plan: The patient notes that he ambulates with a cane and sometimes a walker at home which she was not using at the time of his fall today. We will request PT and OT evaluations: dc to [facility] tomorrow. We will involve case management to ensure safe disposition (3) Seizure disorder: Plan: There were no recorded or witnessed seizures at the time of the patient's fall We will maintain the patient on his home medications in the form of Keppra (4) COPD (chronic obstructive pulmonary disease): Plan: It does not appear that the patient is having a COPD exacerbation We will maintain the patient on oxygen as the patient uses this at home usually at night We will maintain the patient on his home regimen of nebulizers and inhalers (5) A-fib: Plan: Patient is currently in normal sinus rhythm suggesting that he has paroxysmal atrial fibrillation His heart rate is presently well controlled We will maintain him on his home dose of metoprolol for Patient takes Eliquis and we will maintain him on his home dose of this medication As the patient takes Eliquis there is no need for any additional DVT prevention I discussed CODE STATUS with the patient and he notes in the event of cardiopulmonary arrest he wishes to be a level 1 full code. Admission and Anticipated Discharge Date Admission Date: May 19, 2021 Subjective Patient reports feeling well. Wfe wants to place him at [facility]. Review of Systems Review of Systems: All systems reviewed & are unremarkable except as noted in HPI & below Physical Exam Physical Exam: Physical Exam: No evidence of head trauma Constitutional: WD/WN, vitals as above Eyes: PERRL Wears glasses ENMT: Ears: no hearing impairment Mouth: no oropharynx abnormality No evidence of hemotympanum Neck: trachea midline Respiratory: Patient was not using accessory muscles to aid in respiration. improved sounds at left base. No rhonchi or wheezing were noted. Cardiovascular: Rate/Rhythm: regular rate and regular rhythm Gastrointestinal (Abdomen): Abdomen is soft, nontender, nondistended. There is no pain with palpation Musculoskeletal: No gross orthopedic abnormalities in the extremities noted. Patient had palpable dorsalis pedis pulses bilaterally. There is no calf tenderness. There are no nonhealing foot wounds. Skin: no rashes Neurologic: CN's II-XI intact bilaterally and moves all extremities Psychiatric: Patient is alert to place and person. He was confused to time Results & Data Results & Data ([facility]) Vital Signs (Past 12 Hours) Vital Signs Temp Pulse Pulse Resp BP BP Pulse Ox 05/21/21 22:11 36.8 C 86 18 132/81 93 05/21/21 20:04 76 141/69 H 05/21/21 14:34 36.3 C L 56 L 16 152/73 H 93 05/21/21 11:48 36.3 C L 60 16 125/69 90 PG Care Time/CCT Total # of Minutes Spent Total Time Spent with Patient: Total time spent is greater than 50% in coordination of care (as documented) at patient's floor/unit and/or counseling patient: Coding Level of Care Code 36679 Subseq Hosp Care Lvl 2 Diagnoses Pneumonia J18.9 Weakness R53.1 Seizure disorder G40.909 COPD (chronic obstructive pulmonary disease) J44.9 A-fib I48.91 Atrial fibrillation type: unspecified (1) A-fib Atrial fibrillation type: unspecified Qualified Code(s): I48.91 - Unspecified atrial fibrillation
[2021-05-22] MEDS: LEVOTHYROXINE SODIUM 25 MCG TABLET PO SCH (05:22)
[2021-05-22] MEDS: INSULIN ASPART PER UNIT SC SCH ×2 (09:01→13:41)
[2021-05-22] MEDS: CEFEPIME 2,000 MG in SYRINGE 0 ML IV SCH (09:01)
[2021-05-22] MEDS: METOPROLOL TARTRATE 25 MG TAB PO SCH (09:02)
[2021-05-22] MEDS: APIXABAN 5 MG TABLET PO SCH (09:02)
[2021-05-22] MEDS: ASPIRIN 81 MG ECTAB PO SCH (09:02)
[2021-05-22] MEDS: levETIRAcetam 500 MG TAB PO SCH (09:02)
[2021-05-22] MEDS: CYANOCOBALAMIN 500 MCG TABLET (VITAMIN B-12) PO SCH (09:02)
[2021-05-22] MEDS: FLUTICASONE FUROATE 100MCG 14 PUFFS/INHALER INH SCH (09:03)
[2021-05-22] MEDS: SERTRALINE HCL 100 MG TABLET PO SCH (09:03)
[2021-05-22] MEDS: UMECLIDINIUM/VILANTEROL 62.5/25MCG 7 PUFFS/INHALER INH SCH (09:03)
[2021-05-22 09:24] LABS: Basophils # (auto) 0.04 K/uL (0-0.2); Basophils % (auto) 0.5 %; Eosinophils # (auto) 0.39 K/uL (0-0.5); Eosinophils % (auto) 4.5 %; Hematocrit (blood only) 39.8 % (42-52); Immature Granulocytes # (auto) 0.03 K/uL (0.00-0.02); Immature Granulocytes % (auto) 0.3 %; Lymphocytes # (auto) 1.22 K/uL (1.2-3.4); Lymphocytes % (auto) 14.1 %; Mean Corpuscular Hemoglobin 27.5 pg (25-34); Mean Corpuscular Volume 84.1 fL (80-100); Mean Platelet Volume 9.6 fL (7.4-10.4); Monocytes # (auto) 0.84 K/uL (0.11-0.59); Monocytes % (auto) 9.7 %; Neutrophils # (auto) 6.16 K/uL (1.4-6.5); Neutrophils % (auto) 70.9 %; Platelet Count 221 K/uL (130-400); RDW Coefficient of Variation 19.8 % (11.5-14.5); RDW Standard Deviation 60.9 fL (36.4-46.3); Red Blood Count 4.73 M/uL (4.7-6.1); White Blood Count 8.68 K/uL (4.8-10.8)
[2021-05-22 09:25] LABS: Mean Corpuscular Hgb Conc 32.7 g/dL (32-36)
[2021-05-22 09:49] LABS: BUN Creatinine Ratio 16.3 (10-20); Calcium 8.8 mg/dl (8.5-10.1); Creatinine Clr Calc Pharmacy 77.3 ml/min; Est GFR (African American) 98.5 ml/min; Magnesium 1.7 mg/dl (1.7-2.4); Potassium 3.6 mmol/L (3.5-5.1)
--- NOTE | 2021-05-22 15:53 | Discharge Summary ---
Date of Service May 22, 2021 Admission HPI Per Admitting Provider This is a 80-year-old male who presented to [facility] secondary to falling at home. Patient says that he ambulates with both a cane and a walker at times at home. He says this morning he was ambulating without either of his assistive devices when he walked across a rug where his feet got tripped up and it and then his legs gave out causing him to fall. The patient said he fell on his left shoulder blade. He said that he did not hit his head or lose consciousness. Prior to his fall he denied any chest pain, palpitations, lightheadedness, dizziness, or fainting. Patient says that he is a diabetic and takes oral medications. He does not feel as though he had low blood sugar prior to his fall. Since his fall the patient says that he really does not have much in the way of pain. He specifically denies any headache, blurred vision, double vision, or abdominal pain. He denies any nausea or vomiting. The patient presented to the emergency department via EMS as noted above. A chest x-ray was performed that showed the patient had evidence of a left lower lobe pneumonia which was not present on an EKG in April 2021. A CT scan of patient's head did not show any acute intracranial hemorrhage or strokes. Labs include a CBC her white blood cell count was elevated at 19.7. His hemoglobin and hematocrit were 12.6 and 38.8.His platelet count was noted to be within the normal range. An EKG showed normal sinus rhythm without changes indicative of acute ischemia. Cardiac enzymes were checked and were not elevated. A COVID test was performed and was noted to be negative. A TSH was noted to be within the normal range. Chemistry profile showed sodium and potassium along with BUN were within normal range. There is no significant elevation of LFTs. As the patient was noted to have pneumonia on his chest x-ray I did ask him symptomatology concerning this. Over the past several days he notes that he has been somewhat more fatigued and has had a poor appetite. He has not had any nausea, vomiting, or diarrhea. He has not had any fevers, shakes, chills. He denies any chest pain or pleurisy. He says he has not noted any worsening shortness of breath. It is nowhere the mention that the patient says that he did receive a COVID- vaccine as well as a COVID booster. Since arrival to the emergency department the treating clinician in the emergency department has initiated antibiotics in the form of cefepime. Patient has had blood cultures as well as an MRSA nasal swab sent. Old records were reviewed and the patient's most recent admission was in April of 2021. During that admission the patient was admitted with shortness of breath felt to be due to COPD exacerbation. He also had generalized weakness at that time. It is no other mention that he did have a COVID test at that time that was negative. At the time of my interview he was resting comfortably in bed and he was in no distress. Principal Diagnosis 1. Left lower lobe pneumonia 2. Leukocytosisresolved 3. Hypoxemiaresolved Discharge Exam General: Resting comfortably in his hospital bed. NAD. HEENT: Head is AT/NC buccal mucosa is moist and pink Neck: No JVD. Negative hepatojugular reflex Cardiac: RRR with 2/6 DEVORA Lungs: Speaking full sentences on ambient air. Normal respiratory effort. End expiratory wheezes noted at the bases bilaterally but clears with coughing. No rales or rhonchi Abdomen: Normoactive X4. Soft and nontender in all quadrants. Extremities: No peripheral clubbing cyanosis or edema Neuro: A&O X4 cranial nerves II through XII are grossly intact no focal neuro deficits Skin: No obvious skin lesions or rashes Psych: Appropriate affect pleasant and cooperative Discharge Data Allergies Allergy/AdvReac Type Severity Reaction Status Date / Time pollen extracts Allergy Mild CONGESTION Verified 04/07/21 23:30 Consultations 05/19/21 09:05 ED Decision to Admit Stat Ordered Studies 05/19/21 08:35 CT head/brain wo con Stat Impression: No acute intracranial hemorrhage, no evidence of acute territorial infarction or other acute intracranial disease process. Hospital Course (1) Pneumonia: Presented to the ED after a fall and found to have hypoxemia of 85% on room air, leukocytosis of 19.77 with a left shift, and radiographic evidence of a left lower lobe pneumonia amenities that was not apparent in a chest x-ray done 1 month prior) -COVID test negative -Hospitalized on cefepime for hospital-acquired pneumonia given recent hospitalization 04/08 through 04/11 -Treated with nebulized treatments, mucolytic agents, and antitussives -Steroids not given as did not seem to have an exacerbation of his COPD -Responded favorably. White blood cell count normalized. No longer hypoxic or requiring supplemental oxygen -Seen by PT/OT who is recommending inpatient rehab. Case management working on this and patient accepted to [facility] -Discharge to acute rehab today with continued antibiotic therapy. Transition cefepime to Levaquin for continued antipseudomonal coverage along with atypical coverage (5 additional days for total of 8 days of treatment) -Recommend follow-up chest x-ray in 2 to 4 weeks to ensure resolution of infiltrate. This is at the discretion of house physician (is at [facility]) versus PCP (2) Weakness: The patient notes that he ambulates with a cane and sometimes a walker at home which she was not using at the time of his fall Does seem to have concurrent debility in the setting of pneumonia for which PT/OT recommending inpatient rehab Space patient has been accepted to [facility]. Plan to discharge today for continued inpatient rehab (3) Seizure disorder: There were no recorded or witnessed seizures at the time of the patient's fall We will maintain the patient on his home medications in the form of Keppra (4) COPD (chronic obstructive pulmonary disease): It does not appear that the patient is having a COPD exacerbation Patient should continue his prehospital inhalers patient utilizes nocturnal oxygen. Would continue oxygen to maintain a pulse ox of 90 to 92%. Currently 92% on room air. Would avoid over oxygenation given risk of hypercapnia (5) A-fib: Patient is currently in normal sinus rhythm suggesting that he has paroxysmal atrial fibrillation His heart rate is presently well controlled Continue metoprolol and Eliquis as prior to hospitalization Total Time Total Time Spent Total Time Spent (In Minutes): 35 minutes including time spent with the patient, coordination of care, preparation of documentation, discussion with attending provider. Discharge Plan Discharge Items Patient Disposition: Transfer Inpatient Rehab Fac Reason For Visit: PNEUMONIA Discharge Diagnosis: 1. Pneumonia- Left Lower Lobe 2. Leukocytosis ("elevated white blood cell count")- secondary to #1 and resolved 3. Debility/weakness- secondary to #1 Activity: Resume your previous activity Non-emergency contact: Primary Care Provider Call non-emergency contact if: you have any medication questions Follow-up/Referrals: Lorna Tucker DO [Primary Care Provider] - Diet: Regular and Carb Consistent or DM2 Addtl Attending Provider Instructions: - presented to the emergency department after a fall. You were found to have a low oxygen level, an elevated white blood cell count, and radiographic evidence of pneumonia - COVID test was negative - Favorable response noted to IV antibiotics (white blood cell count has normalized and no longer requiring supplemental oxygen) - currently--not requiring supplemental oxygen. Can utilize nasal cannula to maintain an pulse ox of 90 to 92% (not greater than 92% given his underlying history of COPD and history of hypercapnic respiratory failure) - was found to have associated weakness which is likely secondary to pneumonia and are being discharged to [facility] for continued inpatient rehabilitation prior to discharge to home - Continue a full course of antibiotics as outlined (Levaquin X5 additional days) - Continue maintenance inhalers including Trelegy. Rinse mouth out after use!! - Hold azithromycin (taken on Mondays, Wednesdays, and Fridays) while on Levaquin. Once Levaquin completed, okay to resume azithromycin as prior to hospitalization - Would advise follow-up chest x-ray in 2 to 4 weeks to ensure resolution of pneumoniathis is at the discretion of house physician versus PCP - Recommend follow-up with a house physician within 24 to 48 hours - Return to the ED for any new or worsening symptoms Pending Studies at Discharge: No Stand-Alone Forms: My [facility] Skilled Items Patient informed of condition?: Yes DNR: No Discharge Level of Care: Acute rehab Communicable Disease: No Discharge Prognosis: Improving Lines: None Urinary Catheter: No Medications and DC Order Prescriptions: New levofloxacin 750 mg tablet 750 mg PO DAILY 5 Days Qty: 5 RF: 0 Continued Eliquis 5 mg tablet 5 mg PO BID Qty: 180 RF: 3 atorvastatin [Lipitor] 40 mg tablet 40 mg PO HS Qty: 90 RF: 3 diltiazem HCl [Cartia XT] 240 mg capsule,extended release 24hr 240 mg PO HS Qty: 90 RF: 3 sertraline 100 mg tablet 100 mg PO QAM Qty: 90 RF: 2 levothyroxine [Synthroid] 25 mcg tablet 25 mcg PO QAM Qty: 90 RF: 1 fluticasone propionate [Allergy Relief (fluticasone)] 50 mcg/actuation spray,suspension 1 - 2 spray INTNAS DAILY PRN (Reason: Nasal Congestion) Qty: 16 RF: 5 lisinopril 20 mg tablet 20 mg PO HS Qty: 90 RF: 1 glimepiride 2 mg tablet 4 mg PO QAM Qty: 180 RF: 1 montelukast 10 mg tablet 10 mg PO HS Qty: 90 RF: 1 metoprolol tartrate 25 mg tablet 25 mg PO BID Qty: 180 RF: 1 metformin 850 mg tablet 850 mg PO BID Qty: 180 RF: 1 calcium carbonate-vitamin D3 600 mg(1,500mg) -400 unit tablet 2 tab PO HS RF: 0 levetiracetam [Keppra] 500 mg tablet 1,000 mg PO BID 90 Days Qty: 360 RF: 3 ipratropium-albuterol 0.5 mg-3 mg(2.5 mg base)/3 mL solution for nebulization 3 ml inhalation Q8H PRN (Reason: shortness of breath or wheezing) Qty: 180 RF: 5 Trelegy Ellipta 100-62.5-25 mcg blister with device 1 inh INHALATION QAM Qty: 180 RF: 1 albuterol sulfate [Ventolin HFA] 90 mcg/actuation HFA aerosol inhaler 2 puff INH Q4H PRN (Reason: Shortness Of Breath Or Wheezing) Qty: 8.5 RF: 3 guaifenesin [Mucinex] 600 mg tablet extended release 12hr 600 mg PO Q12 PRN (Reason: cough) Qty: 60 RF: 1 cyanocobalamin (vitamin B-12) [Vitamin B-12] 1,000 mcg tablet 1,000 mcg PO QAM RF: 0 aspirin 81 mg Tablet,Delayed Release (Dr/Ec) 81 mg PO DAILY RF: 0 azithromycin 250 mg tablet 250 mg PO .MWF Qty: 36 RF: 0 sodium chloride 7 % solution for nebulization 4 ml INH UD RF: 0 Discharge Orders: Discharge Order (Routine); Ordered 05/22/21 Ordered By: Jennifer Salcedo/Other Patient Handouts: What Is Pneumonia?, Preventing Pneumonia, Treating Pneumonia Admission Data Admit Date/Time: 05/19/21 09:52 Attending Provider: Neri Beckman Admit Provider: Low Agudelo Primary Care Provider: Lorna Tucker Other Providers: Rigo Jimenes [facility] ; [place] ; [facility] ; Neri Beckman Other Interventions: Discharge Summary Assessment (RN) Last Done: 05/22/21 16:46 Supervising Physician Co-Signing Physician Notes I supervised Jennifer Tsai PA-C on the care of this patient. I interviewed and examined the patient independently of her. The plan is as written in her note except for any following changes/exceptions: None Doing well today. Ready for discharge with finishing course of abx. Coding Level of Care Code D/C DAY MANAGEMENT >30 MINS Diagnoses Pneumonia J18.9 Weakness R53.1 Seizure disorder G40.909 COPD (chronic obstructive pulmonary disease) J44.9 A-fib I48.91 Atrial fibrillation type: unspecified
== END 2021-05-22 16:30 | DRG 194 ==
LOC: ED 07:48 → SUATTDRO 09:52 → 3N 09:52

== ENCOUNTER 2021-12-10 18:01 | Inpatient (IN) ==
[2021-12-10 19:02] LABS: Basophils # (auto) 0.06 K/uL (0-0.2); Basophils % (auto) 0.6 %; Eosinophils # (auto) 0.57 K/uL (0-0.50); Eosinophils % (auto) 5.7 %; Hematocrit (blood only) 38.3 % (40.1-51.0); Hemoglobin 12.2 g/dl (14.0-18.0); Immature Granulocytes # (auto) 0.02 K/uL (0.00-0.02); Immature Granulocytes % (auto) 0.2 %; Lymphocytes # (auto) 0.63 K/uL (1.2-3.4); Lymphocytes % (auto) 6.4 %; Mean Corpuscular Hemoglobin 26.6 pg (25.0-34.0); Mean Corpuscular Hgb Conc 31.9 g/dL (32.0-36.0); Mean Corpuscular Volume 83.4 fL (80.0-100.0); Mean Platelet Volume 9.6 fL (9.4-12.4); Monocytes # (auto) 0.77 K/uL (0.24-0.82); Monocytes % (auto) 7.8 %; Neutrophils # (auto) 7.87 K/uL (1.4-6.5); Neutrophils % (auto) 79.3 %; Platelet Count 197 K/uL (130-400); RDW Coefficient of Variation 18.5 % (11.5-14.5); RDW Standard Deviation 54.4 fL (36.4-46.3); Red Blood Count 4.59 M/uL (4.63-6.08); White Blood Count 9.92 K/ul (4.8-10.8)
[2021-12-10 19:26] LABS: Albumin Globulin Ratio 1.3 (0.9-2); Albumin Level 4.2 gm/dl (3.4-5.0); BUN Creatinine Ratio 23.8 (10-20); Bilirubin,Total 0.3 mg/dl (0.2-1.0); Creatinine Clr Calc Pharmacy 66.5 ml/min; Est GFR (African American) 95.8 ml/min; Est GFR (Non-African American) 82.7 ml/min; Globulin 3.2 gm/dl (2.5-4.0); Total Protein 7.4 gm/dl (6.0-8.3)
[2021-12-10] MEDS ORDERED: SODIUM CHLORIDE 0.9% 1000ML 1,000 ML IV ONE (20:01)
[2021-12-10 20:48] LABS: Troponin I High Sensitivity 6.7 pg/ml (0-20)
[2021-12-10 20:52] LABS: Magnesium 1.5 mg/dl (1.7-2.4); Phosphorus 2.9 mg/dl (2.5-4.9)
[2021-12-10] MEDS ORDERED: OPTIRAY 320 100ml IV ONE (21:03)
[2021-12-10 21:12] LABS: Appearance Urine Clear (Clear); Bacteria Urine Automated Negative (Negative); Bilirubin Urine Negative (Negative); Blood Urine Negative (Negative); Color Urine Yellow; Glucose Urine UA Negative (Negative); Ketones Urine Trace (Negative); Leukocyte Esterase Urine Negative (Negative); Nitrite Urine Negative (Negative); Protein Urine 1+ (Negative); RBC Urine Automated 0-4 /hpf (0-4); Urobilinogen Urine Negative (Negative); pH Urine 5.5 (4.5-7.5)
--- NOTE | 2021-12-10 21:12 | CT Scan Report ---
CT head/brain wo con CLINICAL HISTORY: 81 years-old Male with weak, fall. Acute weakness status post fall TECHNIQUE: Multiple axial CT images of the head were obtained without contrast. A dose lowering tech nique was utilized adhering to the principles of ALARA. CT DOSE: 537.48 mGy.cm COMPARISON: Head CT 05/19/2019 FINDINGS: No acute intracranial hemorrhage, midline shift, intracranial mass, hydrocephalus, territorial ischem ia or abnormal extra-axial collection. Age-related involutional changes. White matter hypodensities s uggestive of chronic microvascular ischemic disease. Ex vacuo ventriculomegaly. Cerebral vascular and senescent basal ganglia calcifications. Heterogeneous appearance of the osseous structures. Severe complete opacification of the frontal, eth moid and sphenoid sinuses. Mucoperiosteal thickening of the maxillary sinuses with left maxillary air -fluid level. Trace right mastoid effusion. The left mastoid air cells are clear. Prior bilateral arnaldo s replacement. The paranasal sinuses, mastoid air cells, and middle ear cavities are clear. IMPRESSION: 1. No acute intracranial abnormality or calvarial fracture. 2. Severe paranasal sinus disease. ACT 112: Negative or not required by law. The above report was generated using voice recognition software. It may contain grammatical, syntax o r spelling errors. Electronically signed by: Bulmaro Deluca M.D. 12/10/2021 9:10 PM
--- NOTE | 2021-12-10 21:31 | CT Scan Report ---
ABDOMEN AND PELVIS CT WITH IV CONTRAST CT DOSE: 302.33 mGy.cm HISTORY: Acute weakness with nausea, vomiting acute generalized abdominal pain weak, n/v, abd pain TECHNIQUE: Multiaxial CT images of the abdomen and pelvis were performed following the IV administrat ion of 95 cc of Optiray, A dose lowering technique was utilized adhering to the principles of ALARA. COMPARISON STUDY: 03/29/2020 FINDINGS: Cardiomegaly with coronary artery calcifications. Limited study secondary to respiratory mo tion artifact and upper extremity positioning. Trace pleural effusions. Mild subsegmental bibasilar a telectasis. No pneumatosis or pneumoperitoneum. The spleen and contracted gallbladder appear unremark able. 8 mm hypodensity of the superior liver on image 11 series 2 is too small to characterize, likel y benign. Unchanged 2 cm right adrenal gland lesion, previously diagnosed as a benign adenoma. 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 Patency of the portal vein. There are a few scattered subcentimeter hypodense foci of the kidneys which are too small to characte rize. Probable cyst of the lateral inferior pole right kidney, 1.2 cm. No renal or ureteral calculi o r hydronephrosis. Prostamegaly. Urinary bladder wall thickening with partial distention. 0.6 and urin roula diverticulum involves the anterior superior aspect of the urinary bladder. Atherosclerosis of the aorta. Fusiform infrarenal abdominal aortic aneurysm is unchanged, 3.4 x 2.9 cm. No lymphadenopathy. Small hiatal hernia with mild distal esophageal wall thickening. No bowel obstruction or bowel wall t hickening. Colonic diverticulosis without acute diverticulitis. Mild fecal retention. The appendix is not visualized. No ascites or mesenteric inflammation. Unremarkable soft tissues. No acute fracture. Lumbar levoscoliosis. IMPRESSION: 1. No acute intra-abdominal or intrapelvic abnormality. 2. No bowel obstruction or bowel wall thickening. 3. Colonic diverticulosis. 4. Prostamegaly with findings of chronic bladder outlet obstruction. Correlate with urinalysis to exc lude cystitis. 5. Fusiform infrarenal abdominal aortic aneurysm is unchanged measuring up to 3.4 cm. 6. Additional findings as above. ACT 112: Negative or not required by law. The above report was generated using voice recognition software. It may contain grammatical, syntax o r spelling errors. Electronically signed by: Bulmaro Deluca M.D. 12/10/2021 9:29 PM
--- NOTE | 2021-12-10 21:38 | XRay Report ---
XR chest 1V portable HISTORY: 81 years-old Male weak, fall acute weakness status post fall COMPARISON: Chest radiograph 05/19/2021 TECHNIQUE: Portable AP view of the chest FINDINGS: Cardiac silhouette is enlarged. Coronary arterial stent. Unchanged prominence of the pulmonary arteri es suggestive of pulmonary arterial hypertension. Mild chronic interstitial coarsening. No pneumothor ax, pleural effusion, airspace consolidation or overt pulmonary edema. Nondisplaced left-sided rib fr actures, likely chronic. Degenerative changes of the shoulders and spine. IMPRESSION: Cardiomegaly without acute process. ACT 112: Negative or not required by law. The above report was generated using voice recognition software. It may contain grammatical, syntax o r spelling errors. Electronically signed by: Bulmaro Deluca M.D. 12/10/2021 9:35 PM
[2021-12-10] MEDS: MAGNESIUM SULFATE / D5W 1 GM/100 ML BAG IV SCH ×2 (22:40→23:44)
--- NOTE | 2021-12-10 23:26 | History & Physical Report ---
Date of Service December 10, 2021 Assessment & Plan (1) Near syncope: Plan: Near syncope likely secondary to multifactorial causes including not limited to worsening hypoxia, generalized debilitation, hypomagnesemia, COVID-19 virus infection, others (2) Acute on chronic respiratory failure with hypoxia: Plan: Acute on chronic respiratory failure with hypoxia/chronic bronchitis/chronic aspiration/chronic sinusitis/COVID-19 virus infection/COPD exacerbation- Dexamethasone 6 mg IV every morning Cefepime 2 g IV every 12 hours Azithromycin 500 mg IV daily Guaifenesin extended release 1200 mg p.o. twice daily Continue montelukast continue umeclidinium/vilanterol Albuterol HFA 2 puffs every 4 hours as needed (3) COVID-19 virus infection: Plan: COVID-19 virus infection is likely contributing primarily to general debilitation through worsening weakness, does not appear to be contributing significantly to respiratory state (4) CAD (coronary artery disease): Plan: CAD/atrial flutter/paroxysmal atrial fibrillation- Continue apixaban, aspirin, diltiazem. Hold metoprolol and lisinopril for now, but may resume in a.m. (5) Hypomagnesemia: Plan: Given magnesium sulfate 2 g IV in the ED Repeat laboratories in a.m. (6) COPD (chronic obstructive pulmonary disease): Plan: See above (7) Atrial flutter: Plan: See above (8) Type 2 diabetes mellitus: Plan: Hold metformin Placed on Accu-Cheks before meals and at bedtime with NovoLog coverage per scale Monitor closely while on Decadron (9) Paroxysmal atrial fibrillation: Plan: See above (10) Chronic pulmonary aspiration: Plan: See above (11) Ex-smoker: Plan: Advised continued cessation (12) Seizure disorder: Plan: Continue Keppra 1000 mg twice daily (13) Hypothyroidism (acquired): Plan: Continue levothyroxine 25 mcg every morning (14) Dyslipidemia: Plan: Continue atorvastatin 40 mg at bedtime (15) Depression: Plan: Continue sertraline History of Present Illness Chief Complaint: The patient is brought to the emergency department via EMS after they were called by his daughter and , who noted that the patient while walking to throw something away in the trash, developed significant generalized weakness, became very weak and unable to support himself, was gently lowered to the ground by his holding his pants, and nearly passed out. Primary Care Provider: Lorna Tucker DO The patient is an 81-year-old male with a past medical history including COPD, iron deficiency anemia, history of 40 years of tobacco use, present tobacco chewer, atrial flutter, chronic respiratory failure with oxygen requirement, seizure disorder, cerebral cavernoma, paroxysmal A. fib, hypothyroidism, CAD, V. tach, vitamin D deficiency, vitamin B12 deficiency, AAA, mild cognitive impairment, diabetes mellitus type 2, asthma and TIA. The patient reportedly has been getting home physical therapy during the springtime, but this was stopped several months ago, and family felt that he was gradually getting weaker during that time. Today he became much more acutely weak, and was brought to the emergency department as noted. Significant abnormal laboratories: Magnesium 1.5, hemoglobin 12.2, hematocrit 38.3, RSV negative, influenza negative, COVID-[address] scan of head showed severe paranasal sinus disease. CT of abdomen pelvis showed BPH with LUTS, AAA 3.4 cm in size. Chest x-ray showed no acute findings Allergies Allergy/AdvReac Type Severity Reaction Status Date / Time pollen extracts Allergy Mild CONGESTION Verified 12/10/21 23:35 Home Medications Medication Instructions Recorded Confirmed Type calcium carbonate 600 mg-vitamin 2 tab PO HS 01/16/19 12/10/21 History D3 10 mcg (400 unit) tablet cyanocobalamin (vitamin B-12) 1,000 mcg PO QAM 11/07/19 12/10/21 History 1,000 mcg tablet (Vitamin B-12) fluticasone propionate 50 1 - 2 spray intranasal DAILY PRN 12/17/20 12/10/21 Rx mcg/actuation nasal Nasal Congestion #16 grams spray,suspension (Allergy Relief (fluticasone)) levetiracetam 500 mg tablet 1,000 mg PO BID 90 days #360 tabs 02/23/21 12/10/21 Rx (Keppra) albuterol sulfate 90 mcg/actuation 2 puff inhalation Q4H PRN 02/25/21 12/10/21 Rx aerosol inhaler (Ventolin HFA) Shortness Of Breath Or Wheezing #8.5 grams guaifenesin 600 mg tablet, 600 mg PO Q12 PRN cough #60 tabs 02/25/21 12/10/21 Rx extended release 12 hr (Mucinex) aspirin 81 mg tablet,delayed 81 mg PO QAM 02/26/21 12/10/21 History release sertraline 100 mg tablet 100 mg PO QAM #90 tabs 06/25/21 12/10/21 Rx atorvastatin 40 mg tablet (Lipitor) 40 mg PO HS #90 tabs 06/28/21 12/10/21 Rx diltiazem HCl 240 mg 240 mg PO HS #90 caps 06/28/21 12/10/21 Rx capsule,extended release 24 hr (Cartia XT) levothyroxine 25 mcg tablet 25 mcg PO QAM #90 tabs 07/13/21 12/10/21 Rx (Synthroid) lisinopril 20 mg tablet 20 mg PO HS #90 tabs 08/23/21 12/10/21 Rx montelukast 10 mg tablet 10 mg PO HS #90 tabs 08/23/21 12/10/21 Rx metformin 850 mg tablet 850 mg PO BID #180 tabs 08/25/21 12/10/21 Rx apixaban 5 mg tablet (Eliquis) 5 mg PO BID #180 tabs 08/30/21 12/10/21 Rx fluticasone fur. 100 mcg-umeclid 1 inh inhalation QAM #180 ea 11/09/21 12/10/21 Rx 62.5 mcg-vilant 25 mcg inhalat.powder (Trelegy Ellipta) metoprolol tartrate 25 mg tablet 25 mg PO QAM 12/10/21 12/10/21 History Past Med/Surg History Medical History Abdominal aortic aneurysm (AAA), 30-34 mm diameter Anxiety Arteriosclerotic coronary artery disease Asthma Atrial flutter Benign prostatic hyperplasia with urinary obstruction CAD (coronary artery disease) Cerebral cavernoma Chronic pulmonary aspiration Depression Dyslipidemia Fever History of acute bronchitis with bronchospasm History of basal cell carcinoma (BCC) of skin (05/2020) History of sinusitis Hypertension Hypothyroidism (acquired) Hypoxia Mild cognitive impairment On home oxygen therapy Osteoarthritis Osteoporosis Paroxysmal atrial fibrillation Pneumonia Seizure Seizure disorder (01/2019) TIA (transient ischemic attack) Tremor Type 2 diabetes mellitus Vitamin B12 deficiency Vitamin D deficiency Surgical History H/O Mohs micrographic surgery for skin cancer History of anesthesia reaction History of colonoscopy History of lung biopsy (03/27/19) Hx of cardiac cath S/P Mohs surgery for basal cell carcinoma Family History Father Heart disease Other COPD (chronic obstructive pulmonary disease) Depression Family history non-contributory Denies family history of Ovarian cancer Prostate cancer Coronary heart disease Myocardial infarction Breast cancer Seizure Lung cancer Colorectal cancer Social History Smoking Status: Smoker, status unknown Tobacco Type: Cigarettes Age Started Using Tobacco: 18; Age Quit Using Tobacco: 33; packs per day: 2; Years Smoked: 15; Cigarettes Per Day: 20-40; Number of Years Since Quit: 34; Second Hand Exposure: No; Do You Dip or Chew Tobacco: Yes; Tobacco Cessation Education Requested by Patient: No Hx Alcohol Use: No Hx Substance Use: No Preferred Language: Urdu Communication Ability: Impaired Visual Impairment: No Limitations Hearing Ability: Use of Hearing Aid Car Whacker Required: No Beliefs That Will Affect Care: None marital status: Current Living Situation: Spouse current occupational status: retired 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, 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[email or web address] How many Children do You have: 3 Other Information That Helps Us Care for You: No Feels Safe at Home: Yes Safety Concerns: Feels Safe At This Time Childhood Exposure to Second-Hand Smoke: Yes Diet Comment: regular caffeine: No during the past year weight has: remained stable Dental Care, Regularly: No Physical Activity Frequency: Does not Exercise Seatbelt Use: never Sunscreen Use: Yes Assistive Devices: Cane, Denture - Upper, Denture - Lower, Glasses, Hearing Aid - Bilateral and Oxygen - at Night Review of Systems Review of Systems: Family supplied most of the patient's HPI and review of systems, as patient was unable to contribute significantly due to underlying dementia and compounded by present illness. Physical Exam Physical Exam: The patient is awake, able to respond, normocephalic and atraumatic, lying in bed and in no acute distress. HEENT--PERRL, EOMI, mucous membranes and oropharynx normal Neck--supple. No JVD. No bruits. Thyroid normal, trachea midline, no adenopathy. Heart--normal S1 and S2. No murmurs, rubs or gallops. Lungs--few coarse breath sounds bilaterally. No respiratory distress, no accessory muscle use. Abdomen--normal bowel sounds and soft. Nontender. Nondistended, no hernias or masses, no organomegaly. Extremities--no cyanosis or clubbing. No edema. Dermatologic--normal skin turgor, normal color, no abnormal lymph nodes, no rash. Neurologic--cranial nerves II through XII grossly intact. Rheumatologic--normal range of motion. Psychiatric--normal affect. Results & Data Results & Data ([facility]) Vital Signs (Past 12 Hours) Vital Signs Temp Pulse Pulse Resp BP BP Pulse Ox 12/10/21 22:41 72 17 156/66 H 93 12/10/21 20:53 81 17 173/73 H 96 12/10/21 18:19 16 97 12/10/21 18:19 36.4 C L 74 16 142/80 H 95 O2 Del Method O2 Flow Rate 12/10/21 22:41 Room Air 12/10/21 20:53 Room Air 12/10/21 18:19 Nasal Cannula 2 12/10/21 18:19 Room Air Laboratory Results Laboratory Results WBC 9.92 K/ul (4.8-10.8) 12/10/21 18:10 RBC 4.59 M/uL (4.63-6.08) L 12/10/21 18:10 Hgb 12.2 g/dl (14.0-18.0) L 12/10/21 18:10 Hct 38.3 % (40.1-51.0) L 12/10/21 18:10 MCV 83.4 fL (80.0-100.0) 12/10/21 18:10 MCH 26.6 pg (25.0-34.0) 12/10/21 18:10 MCHC 31.9 g/dL (32.0-36.0) L 12/10/21 18:10 RDW Std Deviation 54.4 fL (36.4-46.3) H 12/10/21 18:10 RDW Coeff of Ashu 18.5 % (11.5-14.5) H 12/10/21 18:10 Plt Count 197 K/uL (130-400) 12/10/21 18:10 MPV 9.6 fL (9.4-12.4) 12/10/21 18:10 Immature Gran % (Auto) 0.2 % 12/10/21 18:10 Neut % (Auto) 79.3 % 12/10/21 18:10 Lymph % (Auto) 6.4 % 12/10/21 18:10 [place] % (Auto) 7.8 % 12/10/21 18:10 Eos % (Auto) 5.7 % 12/10/21 18:10 Baso % (Auto) 0.6 % 12/10/21 18:10 Neut # (Auto) 7.87 K/uL (1.4-6.5) H 12/10/21 18:10 Lymph # (Auto) 0.63 K/uL (1.2-3.4) L 12/10/21 18:10 [place] # (Auto) 0.77 K/uL (0.24-0.82) 12/10/21 18:10 Eos # (Auto) 0.57 K/uL (0-0.50) H 12/10/21 18:10 Baso # (Auto) 0.06 K/uL (0-0.2) 12/10/21 18:10 Immature Gran # (Auto) 0.02 K/uL (0.00-0.02) 12/10/21 18:10 Sodium 137 mmol/L (136-145) 12/10/21 18:10 Potassium 4.0 mmol/L (3.5-5.1) 12/10/21 18:10 Chloride 104 mmol/L (98-107) 12/10/21 18:10 Carbon Dioxide 23 mmol/L (21-32) 12/10/21 18:10 Anion Gap 10 (3-11) 12/10/21 18:10 BUN 20 mg/dl (6-23) 12/10/21 18:10 Creatinine 0.84 mg/dl (0.6-1.4) 12/10/21 18:10 Est Cr Clr Drug Dosing 66.5 ml/min 12/10/21 18:10 Est GFR ( Amer) 95.8 ml/min 12/10/21 18:10 Est GFR (Non-Af Amer) 82.7 ml/min 12/10/21 18:10 BUN/Creatinine Ratio 23.8 (10-20) H 12/10/21 18:10 Glucose 112 mg/dl (70-99(Fasting)) H 12/10/21 18:10 Calcium 9.0 mg/dl (8.5-10.1) 12/10/21 18:10 Phosphorus 2.9 mg/dl (2.5-4.9) 12/10/21 18:01 Magnesium 1.5 mg/dl (1.7-2.4) L 12/10/21 18:01 Total Bilirubin 0.3 mg/dl (0.2-1.0) 12/10/21 18:10 AST 13 U/L (13-39) 12/10/21 18:10 ALT 9 U/L (7-52) 12/10/21 18:10 Alkaline Phosphatase 77 U/L (34-104) 12/10/21 18:10 Troponin I High Sens 6.7 pg/ml (0-20) 12/10/21 18:01 Total Protein 7.4 gm/dl (6.0-8.3) 12/10/21 18:10 Albumin 4.2 gm/dl (3.4-5.0) 12/10/21 18:10 Globulin 3.2 gm/dl (2.5-4.0) 12/10/21 18:10 Albumin/Globulin Ratio 1.3 (0.9-2) 12/10/21 18:10 Lipase Cancelled 12/10/21 18:10 Procalcitonin < 0.05 ng/ml (0-0.5) 12/10/21 18:10 TSH 3.141 uIu/ml (0.300-4.500) 12/10/21 18:10 Urine Color Yellow 12/10/21 20:55 Urine Appearance Clear (Clear) 12/10/21 20:55 Urine pH 5.5 (4.5-7.5) 12/10/21 20:55 Ur Specific [place] 1.020 (1.000-1.030) 12/10/21 20:55 Urine Protein 1+ (Negative) H 12/10/21 20:55 Urine Glucose (UA) Negative (Negative) 12/10/21 20:55 Urine Ketones Trace (Negative) H 12/10/21 20:55 Urine Blood Negative (Negative) 12/10/21 20:55 Urine Nitrite Negative (Negative) 12/10/21 20:55 Urine Bilirubin Negative (Negative) 12/10/21 20:55 Urine Urobilinogen Negative (Negative) 12/10/21 20:55 Ur Leukocyte Esterase Negative (Negative) 12/10/21 20:55 Urine WBC (Auto) 1-5 /hpf (0-5) 12/10/21 20:55 Urine RBC (Auto) 0-4 /hpf (0-4) 12/10/21 20:55 U Hyaline Cast (Auto) 1-5 /lpf (0-5) 12/10/21 20:55 U Epithel Cells (Auto) 10-20 /lpf (0-5) H 12/10/21 20:55 Urine Bacteria (Auto) Negative (Negative) 12/10/21 20:55 SARS-CoV-2 (PCR) POSITIVE (Negative) A* 12/10/21 20:49 Impressions Chest X-Ray 12/10/21 20:35 XR chest 1V portable HISTORY: 81 years-old Male weak, fall acute weakness status post fall COMPARISON: Chest radiograph 05/19/2021 TECHNIQUE: Portable AP view of the chest FINDINGS: Cardiac silhouette is enlarged. Coronary arterial stent. Unchanged prominence of the pulmonary arteries suggestive of pulmonary arterial hypertension. Mild chronic interstitial coarsening. No pneumothorax, pleural effusion, airspace consolidation or overt pulmonary edema. Nondisplaced left-sided rib fractures, likely chronic. Degenerative changes of the shoulders and spine. IMPRESSION: Cardiomegaly without acute process. ACT 112: Negative or not required by law. The above report was generated using voice recognition software. It may contain grammatical, syntax or spelling errors. Electronically signed by: Bulmaro Deluca M.D. 12/10/2021 9:[address] 12/10/21 20:35 CT head/brain wo con CLINICAL HISTORY: 81 years-old Male with weak, fall. Acute weakness status post fall TECHNIQUE: Multiple axial CT images of the head were obtained without contrast. A dose lowering technique was utilized adhering to the principles of ALARA. CT DOSE: 537.48 mGy.cm COMPARISON: Head CT 05/19/2019 FINDINGS: No acute intracranial hemorrhage, midline shift, intracranial mass, hydrocephalus, territorial ischemia or abnormal extra-axial collection. Age- related involutional changes. White matter hypodensities suggestive of chronic microvascular ischemic disease. Ex vacuo ventriculomegaly. Cerebral vascular and senescent basal ganglia calcifications. Heterogeneous appearance of the osseous structures. Severe complete opacification of the frontal, ethmoid and sphenoid sinuses. Mucoperiosteal thickening of the maxillary sinuses with left maxillary air-fluid level. Trace right mastoid effusion. The left mastoid air cells are clear. Prior bilateral lens replacement. The paranasal sinuses, mastoid air cells, and middle ear cavities are clear. IMPRESSION: 1. No acute intracranial abnormality or calvarial fracture. 2. Severe paranasal sinus disease. ACT 112: Negative or not required by law. The above report was generated using voice recognition software. It may contain grammatical, syntax or spelling errors. Electronically signed by: Bulmaro Deluca M.D. 12/10/2021 9:10 PM Abdomen/Pelvis CT 12/10/21 20:[address] WITH IV CONTRAST CT DOSE: 302.33 mGy.cm HISTORY: Acute weakness with nausea, vomiting acute generalized abdominal pain weak, n/v, abd pain TECHNIQUE: Multiaxial CT images of the abdomen and pelvis were performed following the IV administration of 95 cc of Optiray, A dose lowering technique was utilized adhering to the principles of ALARA. COMPARISON STUDY: 03/29/2020 FINDINGS: Cardiomegaly with coronary artery calcifications. Limited study secondary to respiratory motion artifact and upper extremity positioning. Trace pleural effusions. Mild subsegmental bibasilar atelectasis. No pneumatosis or pneumoperitoneum. The spleen and contracted gallbladder appear unremarkable. 8 mm hypodensity of the superior liver on image 11 series 2 is too small to characterize, likely benign. Unchanged 2 cm right adrenal gland lesion, previously diagnosed as a benign adenoma. 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 Patency of the portal vein. There are a few scattered subcentimeter hypodense foci of the kidneys which are too small to characterize. Probable cyst of the lateral inferior pole right kidney, 1.2 cm. No renal or ureteral calculi or hydronephrosis. Prostamegaly. Urinary bladder wall thickening with partial distention. 0.6 and urinary diverticulum involves the anterior superior aspect of the urinary bladder. Atherosclerosis of the aorta. Fusiform infrarenal abdominal aortic aneurysm is unchanged, 3.4 x 2.9 cm. No lymphadenopathy. Small hiatal hernia with mild distal esophageal wall thickening. No bowel obstruction or bowel wall thickening. Colonic diverticulosis without acute diverticulitis. Mild fecal retention. The appendix is not visualized. No ascites or mesenteric inflammation. Unremarkable soft tissues. No acute fracture. Lumbar levoscoliosis. IMPRESSION: 1. No acute intra-abdominal or intrapelvic abnormality. 2. No bowel obstruction or bowel wall thickening. 3. Colonic diverticulosis. 4. Prostamegaly with findings of chronic bladder outlet obstruction. Correlate with urinalysis to exclude cystitis. 5. Fusiform infrarenal abdominal aortic aneurysm is unchanged measuring up to 3.4 cm. 6. Additional findings as above. ACT 112: Negative or not required by law. The above report was generated using voice recognition software. It may contain grammatical, syntax or spelling errors. Electronically signed by: Bulmaro Deluca M.D. 12/10/2021 9:29 PM Code Status & VTE Plan Code Status Full code, as discussed with patient VTE Prophylaxis Plan VTE Prophylaxis will be ordered: Yes PG Care Time/CCT Total # of Minutes Spent Total Time Spent with Patient: Total time spent is greater than 50% in coordination of care (as documented) at patient's floor/unit and/or counseling patient: Coding Level of Care Code 66761 Initial Inpt Care Lvl 3 Diagnoses Near syncope R55 Acute on chronic respiratory failure with hypoxia J96.21 COVID-19 virus infection U07.1 CAD (coronary artery disease) I25.10 Coronary Disease-Associated Artery/Lesion type: [place] artery [place] vs. 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 transplanted heart: [place] heart Associated angina: without angina Qualified Code(s): I25.10 - Atherosclerotic heart disease of [place] coronary artery without angina pectoris (3) Depression Depression Type: unspecified Qualified Code(s): F32.9 - Major depressive disorder, single episode, unspecified (4) Type 2 diabetes mellitus Diabetes mellitus mcc insulin use: without mcc use Diabetes mellitus complication status: without complication Qualified Code(s): E11.9 - Type 2 diabetes mellitus without complications
--- NOTE | 2021-12-11 01:14 | Emergency Department Note ---
Impression & Plan COVID-19 virus infection, Near syncope, Hypomagnesemia, On home oxygen therapy, Weakness ED Provider Note NAME: LUCIAN LOPEZ AGE: 81 SEX: M ARRIVES VIA: Ambulance INFORMANT: Patient, ED PROVIDER(S): Gael Mcintyre MD CHIEF COMPLAINT: Weakness PLAN: Disposition: Admit MEDICAL DECISION MAKING: The patient is a pleasant 81-year-old gentleman with a past medical history of COPD on home oxygen at night, CAD, AAA, hypertension, hyperlipidemia, type 2 diabetes, sz d/o who presents to the emergency department via EMS and eventually accompanied by his daughter and for evaluation of generalized weakness which worsened today where they report he was walking to throw something away in the trash and why did not bring his cane abruptly became weak and dizziness and needed to be lowered to the ground by his holding his pants. They deny any hard fall. However he was unable to get up due to generalized weakness. They report over the past 24 hours he has become more weak than his baseline. They report that they did have home PT in the spring but this stopped several months ago and they feel that since then he has not been getting up much and has grown weaker but it seems not to the degree where they alerted his providers about it. Today was much different as he was unable to ambulate at all without assistance. They deny any fevers, chills, cough, congestion, GI or symptoms. They do report he has had decreased oral intake. He does arrive to the emergency department appearing diaphoretic. They do not that they do not have air conditioning in their home but they have plenty of fans for circulation and do not feel it is overwhelmingly hot. They further added that when he walked outside to throw away the trash he did not walk far and did not think it was particularly hot where he overheated. On arrival, the patient is fatigued, chronically-ill appearing but no acute distress, afebrile with stable vital signs. He does appear diaphoretic. He appears clinically dry. The skin is warm but he is afebrile. EKG without overt acute ischemia. CXR with chronic mild interstitial coarsening in the sertting of COPD adn otherwise negative for acute cardiopulmonary process. WBC and platelets within normal limits. H/H similar to prior. Chemistry without metabolic acidosis. BUN/creatinine> 20 consistent with patient's clinically dry appearance. Magnesium 1.5, with repletion provided. High- sensitivity troponin 6.7, within normal limits. Procalcitonin is undetectable. TSH within normal limits. UA with trace ketones consistent with the patient's dehydration. Otherwise no convincing evidence of urinary infection. Patient's COVID-19 PCR did result positive. CT of the head demonstrates severe paranasal sinus disease and otherwise no acute process. CT of the abdomen pelvis demonstrates prostatomegaly with evidence of chronic bladder outlet obstruction and otherwise no acute process. AAA stable. Given the patient's generalized weakness with inability to ambulate due to this in the setting of COVID-19 infection the patient and his family do agree with plan for admission. Case was [place]. Elena, [facility] [place], who will evaluate the patient for admission. Triage Nursing notes reviewed and agree them. Prior medical records reviewed Vital Signs: reviewed and remarkable for no significant abnormalities Differential diagnosis: Infection, dehydration, metabolic abnormality, hypo/hyperglycemia, electrolyte disturbance, anemia, hypoxia, cardiac sources, intracerebral event, toxicologic, neurologic, as well as other pathologies. ER treatment provided: See below. Diagnostics interpreted by me: ECG: NSR, 69 bpm, no ectopy, nonspecific ST abnormality, no overt ST elevation or depression. Cardiac Monitoring: An order for continuous cardiac monitoring was placed and demonstrated NSR, 69 bpm, no ectopy. Laboratory studies: See below Imaging studies: See below Consultation(s): Case was discussed [place] Dr. Elena, [facility], who will evaluate the patient for admission. HPI: The patient is a pleasant 81-year-old gentleman with a past medical history of COPD on home oxygen at night, CAD, AAA, hypertension, hyperlipidemia, type 2 diabetes, sz d/o who presents to the emergency department via EMS and eventually accompanied by his daughter and for evaluation of generalized weakness which worsened today where they report he was walking to throw something away in the trash and why did not bring his cane abruptly became weak and dizziness and needed to be lowered to the ground by his holding his pants. They deny any hard fall. However he was unable to get up due to generalized weakness. They report over the past 24 hours he has become more weak than his baseline. They report that they did have home PT in the spring but this stopped several months ago and they feel that since then he has not been getting up much and has grown weaker but it seems not to the degree where they alerted his providers about it. Today was much different as he was unable to ambulate at all without assistance. They deny any fevers, chills, cough, congestion, GI or symptoms. They do report he has had decreased oral intake. He does arrive to the emergency department appearing diaphoretic. They do not that they do not have air conditioning in their home but they have plenty of fans for circulation and do not feel it is overwhelmingly hot. They further added that when he walked outside to throw away the trash he did not walk far and did not think it was particularly hot where he overheated. ROS: See above HPI for pertinent positives & negatives. A total of 10 systems reviewed and were otherwise negative. VITALS:See Below PHYSICAL EXAMINATION: GENERAL: Awake, alert, fatigued, chronically-ill appearing, in no distress HENT: Normocephalic, atraumatic. Oropharynx with dry mucous membranes and otherwise unremarkable. EYES: Normal conjunctiva. Sclera non-icteric. NECK: Supple. No nuchal rigidity. FROM. No JVD. RESPIRATORY: Clear to auscultation. CARDIAC: Regular rate, normal rhythm. Extremities warm and well perfused. Pulses equal. ABDOMEN: Soft, non-distended. No tenderness to palpation. No rebound or guarding. No masses. RECTAL: Deferred. MUSCULOSKELETAL: Chest examination reveals no tenderness. The back is symmetrical on inspection without obvious abnormality. There is no CVA tenderness to palpation. No joint edema. LOWER EXTREMITIES: Calves are equal size bilaterally and non-tender. No edema. No discoloration. NEURO: Normal sensorium. Generalized weakness with no focal sensory or motor deficits noted. SKIN: Warm/diaphoretic. No rash or jaundice noted. Gael Mcintyre MD Past Med/Surg History Medical History Abdominal aortic aneurysm (AAA), 30-34 mm diameter Anxiety Arteriosclerotic coronary artery disease Asthma Atrial flutter Benign prostatic hyperplasia with urinary obstruction CAD (coronary artery disease) Cerebral cavernoma Chronic pulmonary aspiration Depression Dyslipidemia Fever History of acute bronchitis with bronchospasm History of basal cell carcinoma (BCC) of skin (05/2020) History of sinusitis Hypertension Hypothyroidism (acquired) Hypoxia Mild cognitive impairment On home oxygen therapy Osteoarthritis Osteoporosis Paroxysmal atrial fibrillation Pneumonia Seizure Seizure disorder (01/2019) TIA (transient ischemic attack) Tremor Type 2 diabetes mellitus Vitamin B12 deficiency Vitamin D deficiency Surgical History H/O Mohs micrographic surgery for skin cancer History of anesthesia reaction History of colonoscopy History of lung biopsy (03/27/19) Hx of cardiac cath S/P Mohs surgery for basal cell carcinoma Family History Father Heart disease Other COPD (chronic obstructive pulmonary disease) Depression Family history non-contributory Denies family history of Ovarian cancer Prostate cancer Coronary heart disease Myocardial infarction Breast cancer Seizure Lung cancer Colorectal cancer Social History Smoking Status: Smoker, status unknown Tobacco Type: Cigarettes Age Started Using Tobacco: 18; Age Quit Using Tobacco: 33; packs per day: 2; Years Smoked: 15; Cigarettes Per Day: 20-40; Number of Years Since Quit: 34; Second Hand Exposure: No; Do You Dip or Chew Tobacco: Yes; Tobacco Cessation Education Requested by Patient: No Hx Alcohol Use: No Hx Substance Use: No Preferred Language: Anguill[place] Communication Ability: Impaired Visual Impairment: No Limitations Hearing Ability: Use of Hearing Aid [employer] Digger Required: No Beliefs That Will Affect Care: None marital status: Current Living Situation: Spouse current occupational status: retired 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, 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[employer] ([place]) How many Children do You have: 3 Other Information That Helps Us Care for You: No Feels Safe at Home: Yes Safety Concerns: Feels Safe At This Time Childhood Exposure to Second-Hand Smoke: Yes Diet Comment: regular caffeine: No during the past year weight has: remained stable Dental Care, Regularly: No Physical Activity Frequency: Does not Exercise Seatbelt Use: never Sunscreen Use: Yes Assistive Devices: Cane, Denture - Upper, Denture - Lower, Glasses, Hearing Aid - Bilateral and Oxygen - at Night Allergies Allergies Allergy/AdvReac Type Severity Reaction Status Date / Time pollen extracts Allergy Mild CONGESTION Verified 12/10/21 23:35 Home Meds Home Medications Medication Instructions Recorded Confirmed calcium carbonate 600 mg-vitamin 2 tab PO HS 01/16/19 12/10/21 D3 10 mcg (400 unit) tablet cyanocobalamin (vitamin B-12) 1,000 mcg PO QAM 11/07/19 12/10/21 1,000 mcg tablet (Vitamin B-12) aspirin 81 mg tablet,delayed 81 mg PO QAM 02/26/21 12/10/21 release metoprolol tartrate 25 mg tablet 25 mg PO QAM 12/10/21 12/10/21 Previous Rx's Medication Instructions Recorded fluticasone propionate 50 1 - 2 spray intranasal DAILY PRN 12/17/20 mcg/actuation nasal Nasal Congestion #16 grams spray,suspension (Allergy Relief (fluticasone)) levetiracetam 500 mg tablet 1,000 mg PO BID 90 days #360 tabs 02/23/21 (Keppra) albuterol sulfate 90 mcg/actuation 2 puff inhalation Q4H PRN 02/25/21 aerosol inhaler (Ventolin HFA) Shortness Of Breath Or Wheezing #8.5 grams guaifenesin 600 mg tablet, 600 mg PO Q12 PRN cough #60 tabs 02/25/21 extended release 12 hr (Mucinex) sertraline 100 mg tablet 100 mg PO QAM #90 tabs 06/25/21 atorvastatin 40 mg tablet (Lipitor) 40 mg PO HS #90 tabs 06/28/21 diltiazem HCl 240 mg 240 mg PO HS #90 caps 06/28/21 capsule,extended release 24 hr (Cartia XT) levothyroxine 25 mcg tablet 25 mcg PO QAM #90 tabs 07/13/21 (Synthroid) lisinopril 20 mg tablet 20 mg PO HS #90 tabs 08/23/21 montelukast 10 mg tablet 10 mg PO HS #90 tabs 08/23/21 metformin 850 mg tablet 850 mg PO BID #180 tabs 08/25/21 apixaban 5 mg tablet (Eliquis) 5 mg PO BID #180 tabs 08/30/21 fluticasone fur. 100 mcg-umeclid 1 inh inhalation QAM #180 ea 11/09/21 62.5 mcg-vilant 25 mcg inhalat.powder (Trelegy Ellipta) Results & Data (ED) Vital Signs Vital Signs - 24 hr 12/10/21 18:19 12/10/21 18:19 12/10/21 20:53 Temperature 36.4 C L Temperature Source Oral Pulse Rate 74 Pulse Rate [Finger] 81 Pulse Rhythm Regular Pulse Rhythm [Finger] Pulse Strength Normal Pulse Strength [Finger] Respiratory Rate 16 16 17 Respiratory Effort / Characteristics Non-Labored Spontaneous Non-Labored Spontaneous Respiratory Depth Normal Normal Blood Pressure 142/80 H Blood Pressure [Left Arm] 173/73 H Blood Pressure Mean 100 Blood Pressure Mean [Left Arm] 106 Blood Pressure Position [Left Arm] Lying Pulse Oximetry 95 97 96 Oxygen Delivery Method Room Air Nasal Cannula Room Air Oxygen Flow Rate 2 Sepsis Recent Fever Within 48 Hours No Sepsis New/Unexplained Change in Mental Status No Sepsis Action Taken by Nursing No Action Required 12/10/21 22:41 12/10/21 23:45 Temperature Temperature Source Pulse Rate Pulse Rate [Finger] 72 73 Pulse Rhythm Pulse Rhythm [Finger] Regular Pulse Strength Pulse Strength [Finger] Normal Respiratory Rate 17 18 Respiratory Effort / Characteristics Non-Labored Spontaneous Non-Labored Spontaneous Respiratory Depth Normal Normal Blood Pressure Blood Pressure [Left Arm] 156/66 H 152/87 H Blood Pressure Mean Blood Pressure Mean [Left Arm] 96 108 Blood Pressure Position [Left Arm] Lying Lying Pulse Oximetry 93 95 Oxygen Delivery Method Room Air Room Air Oxygen Flow Rate Sepsis Recent Fever Within 48 Hours Sepsis New/Unexplained Change in Mental Status Sepsis Action Taken by Nursing Laboratory Data Attestation: I reviewed the patient's lab results. Result diagrams: 12/11/21 07:06 12/11/21 07:06 Lab Results 12/10/21 12/10/21 12/10/21 Range/Units 18:01 18:10 18:10 WBC 9.92 (4.8-10.8) K/ul RBC 4.59 L (4.63-6.08) M/uL Hgb 12.2 L (14.0-18.0) g/dl Hct 38.3 L (40.1-51.0) % MCV 83.4 (80.0-100.0) fL MCH 26.6 (25.0-34.0) pg MCHC 31.9 L (32.0-36.0) g/dL RDW Std Deviation 54.4 H (36.4-46.3) fL RDW Coeff of Ashu 18.5 H (11.5-14.5) % Plt Count 197 (130-400) K/uL MPV 9.6 (9.4-12.4) fL Immature Gran % (Auto) 0.2 % Neut % (Auto) 79.3 % Lymph % (Auto) 6.4 % Powell % (Auto) 7.8 % Eos % (Auto) 5.7 % Baso % (Auto) 0.6 % Neut # (Auto) 7.87 H (1.4-6.5) K/uL Lymph # (Auto) 0.63 L (1.2-3.4) K/uL Powell # (Auto) 0.77 (0.24-0.82) K/uL Eos # (Auto) 0.57 H (0-0.50) K/uL Baso # (Auto) 0.06 (0-0.2) K/uL Immature Gran # (Auto) 0.02 (0.00-0.02) K/uL Sodium 137 (136-145) mmol/L Potassium 4.0 (3.5-5.1) mmol/L Chloride 104 (98-107) mmol/L Carbon Dioxide 23 (21-32) mmol/L Anion Gap 10 (3-11) BUN 20 (6-23) mg/dl Creatinine 0.84 (0.6-1.4) mg/dl Est Cr Clr Drug Dosing 66.5 ml/min Est GFR ( Amer) 95.8 ml/min Est GFR (Non-Af Amer) 82.7 ml/min BUN/Creatinine Ratio 23.8 H (10-20) Glucose 112 H (70-99(Fasting)) mg/dl Calcium 9.0 (8.5-10.1) mg/dl Phosphorus 2.9 (2.5-4.9) mg/dl Magnesium 1.5 L (1.7-2.4) mg/dl Total Bilirubin 0.3 (0.2-1.0) mg/dl AST 13 (13-39) U/L ALT 9 (7-52) U/L Alkaline Phosphatase 77 (34-104) U/L Troponin I High Sens 6.7 (0-20) pg/ml Total Protein 7.4 (6.0-8.3) gm/dl Albumin 4.2 (3.4-5.0) gm/dl Globulin 3.2 (2.5-4.0) gm/dl Albumin/Globulin Ratio 1.3 (0.9-2) Lipase 24 (11-82) U/L Procalcitonin (0-0.5) ng/ml TSH (0.300-4.500) uIu/ml Urine Color Urine Appearance (Clear) Urine pH (4.5-7.5) Ur Specific Derby (1.000-1.030) Urine Protein (Negative) Urine Glucose (UA) (Negative) Urine Ketones (Negative) Urine Blood (Negative) Urine Nitrite (Negative) Urine Bilirubin (Negative) Urine Urobilinogen (Negative) Ur Leukocyte Esterase (Negative) Urine WBC (Auto) (0-5) /hpf Urine RBC (Auto) (0-4) /hpf U Hyaline Cast (Auto) (0-5) /lpf U Epithel Cells (Auto) (0-5) /lpf Urine Bacteria (Auto) (Negative) SARS-CoV-2 (PCR) (Negative) 12/10/21 12/10/21 12/10/21 Range/Units 18:10 18:10 18:10 WBC (4.8-10.8) K/ul RBC (4.63-6.08) M/uL Hgb (14.0-18.0) g/dl Hct (40.1-51.0) % MCV (80.0-100.0) fL MCH (25.0-34.0) pg MCHC (32.0-36.0) g/dL RDW Std Deviation (36.4-46.3) fL RDW Coeff of Ashu (11.5-14.5) % Plt Count (130-400) K/uL MPV (9.4-12.4) fL Immature Gran % (Auto) % Neut % (Auto) % Lymph % (Auto) % Powell % (Auto) % Eos % (Auto) % Baso % (Auto) % Neut # (Auto) (1.4-6.5) K/uL Lymph # (Auto) (1.2-3.4) K/uL Powell # (Auto) (0.24-0.82) K/uL Eos # (Auto) (0-0.50) K/uL Baso # (Auto) (0-0.2) K/uL Immature Gran # (Auto) (0.00-0.02) K/uL Sodium (136-145) mmol/L Potassium (3.5-5.1) mmol/L Chloride (98-107) mmol/L Carbon Dioxide (21-32) mmol/L Anion Gap (3-11) BUN (6-23) mg/dl Creatinine (0.6-1.4) mg/dl Est Cr Clr Drug Dosing ml/min Est GFR ( Amer) ml/min Est GFR (Non-Af Amer) ml/min BUN/Creatinine Ratio (10-20) Glucose (70-99(Fasting)) mg/dl Calcium (8.5-10.1) mg/dl Phosphorus (2.5-4.9) mg/dl Magnesium (1.7-2.4) mg/dl Total Bilirubin (0.2-1.0) mg/dl AST (13-39) U/L ALT (7-52) U/L Alkaline Phosphatase (34-104) U/L Troponin I High Sens (0-20) pg/ml Total Protein (6.0-8.3) gm/dl Albumin (3.4-5.0) gm/dl Globulin (2.5-4.0) gm/dl Albumin/Globulin Ratio (0.9-2) Lipase Cancelled (11-82) U/L Procalcitonin < 0.05 (0-0.5) ng/ml TSH 3.141 (0.300-4.500) uIu/ml Urine Color Urine Appearance (Clear) Urine pH (4.5-7.5) Ur Specific [place] (1.000-1.030) Urine Protein (Negative) Urine Glucose (UA) (Negative) Urine Ketones (Negative) Urine Blood (Negative) Urine Nitrite (Negative) Urine Bilirubin (Negative) Urine Urobilinogen (Negative) Ur Leukocyte Esterase (Negative) Urine WBC (Auto) (0-5) /hpf Urine RBC (Auto) (0-4) /hpf U Hyaline Cast (Auto) (0-5) /lpf U Epithel Cells (Auto) (0-5) /lpf Urine Bacteria (Auto) (Negative) SARS-CoV-2 (PCR) (Negative) 12/10/21 12/10/21 Range/Units 20:49 20:55 WBC (4.8-10.8) K/ul RBC (4.63-6.08) M/uL Hgb (14.0-18.0) g/dl Hct (40.1-51.0) % MCV (80.0-100.0) fL MCH (25.0-34.0) pg MCHC (32.0-36.0) g/dL RDW Std Deviation (36.4-46.3) fL RDW Coeff of Ashu (11.5-14.5) % Plt Count (130-400) K/uL MPV (9.4-12.4) fL Immature Gran % (Auto) % Neut % (Auto) % Lymph % (Auto) % Powell % (Auto) % Eos % (Auto) % Baso % (Auto) % Neut # (Auto) (1.4-6.5) K/uL Lymph # (Auto) (1.2-3.4) K/uL Powell # (Auto) (0.24-0.82) K/uL Eos # (Auto) (0-0.50) K/uL Baso # (Auto) (0-0.2) K/uL Immature Gran # (Auto) (0.00-0.02) K/uL Sodium (136-145) mmol/L Potassium (3.5-5.1) mmol/L Chloride (98-107) mmol/L Carbon Dioxide (21-32) mmol/L Anion Gap (3-11) BUN (6-23) mg/dl Creatinine (0.6-1.4) mg/dl Est Cr Clr Drug Dosing ml/min Est GFR ( Amer) ml/min Est GFR (Non-Af Amer) ml/min BUN/Creatinine Ratio (10-20) Glucose (70-99(Fasting)) mg/dl Calcium (8.5-10.1) mg/dl Phosphorus (2.5-4.9) mg/dl Magnesium (1.7-2.4) mg/dl Total Bilirubin (0.2-1.0) mg/dl AST (13-39) U/L ALT (7-52) U/L Alkaline Phosphatase (34-104) U/L Troponin I High Sens (0-20) pg/ml Total Protein (6.0-8.3) gm/dl Albumin (3.4-5.0) gm/dl Globulin (2.5-4.0) gm/dl Albumin/Globulin Ratio (0.9-2) Lipase (11-82) U/L Procalcitonin (0-0.5) ng/ml TSH (0.300-4.500) uIu/ml Urine Color Yellow Urine Appearance Clear (Clear) Urine pH 5.5 (4.5-7.5) Ur Specific [place] 1.020 (1.000-1.030) Urine Protein 1+ H (Negative) Urine Glucose (UA) Negative (Negative) Urine Ketones Trace H (Negative) Urine Blood Negative (Negative) Urine Nitrite Negative (Negative) Urine Bilirubin Negative (Negative) Urine Urobilinogen Negative (Negative) Ur Leukocyte Esterase Negative (Negative) Urine WBC (Auto) 1-5 (0-5) /hpf Urine RBC (Auto) 0-4 (0-4) /hpf U Hyaline Cast (Auto) 1-5 (0-5) /lpf U Epithel Cells (Auto) 10-20 H (0-5) /lpf Urine Bacteria (Auto) Negative (Negative) SARS-CoV-2 (PCR) POSITIVE A* (Negative) Administered Medications Apixaban (Apixaban 5 Mg Tablet) 5 mg PO BID [facility] Stop: 01/10/22 01:53 Last Admin: 12/11/21 20:13 Dose: 5 mg Documented By: Admin: 12/11/21 08:50 Dose: 5 mg Documented By: Admin: 12/11/21 03:50 Dose: 5 mg Documented By: CR Aspirin (Aspirin 81 Mg Ectab) 81 mg PO DAILY PATO Stop: 01/10/22 08:59 Last Admin: 12/11/21 08:49 Dose: 81 mg Documented By: CA Atorvastatin Calcium (Atorvastatin 40 Mg Tab) 40 mg PO HS PATO Stop: 01/10/22 20:59 Last Admin: 12/11/21 20:16 Dose: 40 mg Documented By: CR Diltiazem HCl (Diltiazem Hcl 240 Mg Capcr) 240 mg PO HS PATO Stop: 01/10/22 20:59 Last Admin: 12/11/21 20:13 Dose: 240 mg Documented By: CR Fluticasone Furoate (Fluticasone Furoate 100mcg 14 Puffs/Inhaler) 1 puffs INH DAILY PATO Stop: 01/10/22 08:59 Last Admin: 12/11/21 08:51 Dose: 1 puffs Documented By: EVLVET Insulin Aspart (Insulin Aspart Per Unit) 0 units SC ACHS PATO Stop: 01/10/22 07:29 Last Admin: 12/11/21 20:35 Dose: 1 units Documented By: TRISTON Co-signed By: CASSANDRA Admin: 12/11/21 16:49 Dose: Not Given Documented By: Admin: 12/11/21 12:22 Dose: 2 units Documented By: VELVET Co-signed By: CARLOS Admin: 12/11/21 08:00 Dose: 2 units Documented By: VELVET Co-signed By: STACEY Levetiracetam (Levetiracetam 500 Mg Tab) 1,000 mg PO BID PATO Stop: 01/10/22 01:53 Last Admin: 12/11/21 20:13 Dose: 1,000 mg Documented By: Admin: 12/11/21 08:50 Dose: 1,000 mg Documented By: Admin: 12/11/21 03:50 Dose: 1,000 mg Documented By: TIRSTON Levothyroxine Sodium (Levothyroxine Sodium 25 Mcg Tablet) 25 mcg PO DAILYBB PATO Stop: 01/10/22 06:29 Last Admin: 12/11/21 06:20 Dose: 25 mcg Documented By: TRISTON Montelukast Sodium (Montelukast Sodium 10 Mg Tablet) 10 mg PO HS PATO Stop: 01/10/22 20:59 Last Admin: 12/11/21 20:13 Dose: 10 mg Documented By: TRISTON Sertraline HCl (Sertraline Hcl 100 Mg Tablet) 100 mg PO QAM PATO Stop: 01/10/22 08:59 Last Admin: 12/11/21 08:49 Dose: 100 mg Documented By: VEVLET Umeclidinium/Vilanterol (Umeclidinium/Vilanterol 62.5/25mcg 7 Puffs/Inhaler) 1 puffs INH DAILY PATO Stop: 01/10/22 08:59 Last Admin: 12/11/21 08:50 Dose: 1 puffs Documented By: VELVET Vitamin D (Cholecalciferol 5,000 Units 125 Mcg Tab) 5,000 units PO QAM PATO Stop: 01/10/22 08:59 Last Admin: 12/11/21 08:50 Dose: 5,000 units Documented By: VELVET Discontinued Medications Sodium Chloride (Nss 1000ml) 1,000 mls @ 999 mls/hr IV .Q1H1M ONE Stop: 12/10/21 21:01 Last Infusion: 12/10/21 22:04 Dose: 0 mls/hr Documented By: Admin: 12/10/21 20:28 Dose: 999 mls/hr Documented By: JOHNNIE Magnesium Sulfate/Dextrose (Magnesium Sulfate / D5w) 1 gm in 100 mls @ 100 mls/hr IV Q1H PATO Stop: 12/11/21 00:13 Last Infusion: 12/11/21 00:37 Dose: 0 mls/hr Documented By: Admin: 12/10/21 23:44 Dose: 100 mls/hr Documented By: Infusion: 12/10/21 23:40 Dose: 100 mls/hr Documented By: Admin: 12/10/21 22:40 Dose: 100 mls/hr Documented By: JOHNNIE Dexamethasone 6 mg/ Syringe 1.5 mls @ 1 mls/min IV ONE ONE Stop: 12/11/21 01:55 Last Admin: 12/11/21 03:50 Dose: 1 mls/min Documented By: TRISTON Azithromycin 500 mg/ Dextrose 255 mls @ 125 mls/hr IV DAILY PATO Stop: 12/18/21 02:59 Last Infusion: 12/11/21 06:31 Dose: 0 mls/hr Documented By: Admin: 12/11/21 04:28 Dose: 125 mls/hr Documented By: TRISTON Ceftriaxone Sodium 1,000 mg/ (Dextrose) 60 mls @ 100 mls/hr IV DAILY PATO; Protocol Stop: 12/18/21 02:59 Last Infusion: 12/11/21 04:26 Dose: 0 mls/hr Documented By: Admin: 12/11/21 03:50 Dose: 100 mls/hr Documented By: TRISTON Cefepime HCl 2,000 mg/ Syringe 20 mls @ 5 mls/min IV Q8H PATO; Protocol Stop: 12/18/21 07:59 Last Admin: 12/11/21 16:48 Dose: 5 mls/min Documented By: Admin: 12/11/21 09:04 Dose: 5 mls/min Documented By: VELVET Ioversol (Optiray 320 100ml) 95 ml IV ONCE ONE Stop: 12/10/21 21:04 Last Admin: 12/10/21 21:04 Dose: 95 ml Documented By: SONIA Imaging Data Radiologist's Impression: Chest X-Ray 12/10/21 20:35 XR chest 1V portable HISTORY: 81 years-old Male weak, fall acute weakness status post fall COMPARISON: Chest radiograph 05/19/2021 TECHNIQUE: Portable AP view of the chest FINDINGS: Cardiac silhouette is enlarged. Coronary arterial stent. Unchanged prominence of the pulmonary arteries suggestive of pulmonary arterial hypertension. Mild chronic interstitial coarsening. No pneumothorax, pleural effusion, airspace consolidation or overt pulmonary edema. Nondisplaced left-sided rib fractures, likely chronic. Degenerative changes of the shoulders and spine. IMPRESSION: Cardiomegaly without acute process. ACT 112: Negative or not required by law. The above report was generated using voice recognition software. It may contain grammatical, syntax or spelling errors. Electronically signed by: Bulmaro Deluca M.D. 12/10/2021 9:[address] 12/10/21 20:35 CT head/brain wo con CLINICAL HISTORY: 81 years-old Male with weak, fall. Acute weakness status post fall TECHNIQUE: Multiple axial CT images of the head were obtained without contrast. A dose lowering technique was utilized adhering to the principles of ALARA. CT DOSE: 537.48 mGy.cm COMPARISON: Head CT 05/19/2019 FINDINGS: No acute intracranial hemorrhage, midline shift, intracranial mass, hydrocephalus, territorial ischemia or abnormal extra-axial collection. Age- related involutional changes. White matter hypodensities suggestive of chronic microvascular ischemic disease. Ex vacuo ventriculomegaly. Cerebral vascular and senescent basal ganglia calcifications. Heterogeneous appearance of the osseous structures. Severe complete opacification of the frontal, ethmoid and sphenoid sinuses. Mucoperiosteal thickening of the maxillary sinuses with left maxillary air-fluid level. Trace right mastoid effusion. The left mastoid air cells are clear. Prior bilateral lens replacement. The paranasal sinuses, mastoid air cells, and middle ear cavities are clear. IMPRESSION: 1. No acute intracranial abnormality or calvarial fracture. 2. Severe paranasal sinus disease. ACT 112: Negative or not required by law. The above report was generated using voice recognition software. It may contain grammatical, syntax or spelling errors. Electronically signed by: Bulmaro Deluca M.D. 12/10/2021 9:10 PM Abdomen/Pelvis CT 12/10/21 20:[address] WITH IV CONTRAST CT DOSE: 302.33 mGy.cm HISTORY: Acute weakness with nausea, vomiting acute generalized abdominal pain weak, n/v, abd pain TECHNIQUE: Multiaxial CT images of the abdomen and pelvis were performed following the IV administration of 95 cc of Optiray, A dose lowering technique was utilized adhering to the principles of ALARA. COMPARISON STUDY: 03/29/2020 FINDINGS: Cardiomegaly with coronary artery calcifications. Limited study secondary to respiratory motion artifact and upper extremity positioning. Trace pleural effusions. Mild subsegmental bibasilar atelectasis. No pneumatosis or pneumoperitoneum. The spleen and contracted gallbladder appear unremarkable. 8 mm hypodensity of the superior liver on image 11 series 2 is too small to characterize, likely benign. Unchanged 2 cm right adrenal gland lesion, previously diagnosed as a benign adenoma. 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 Patency of the portal vein. There are a few scattered subcentimeter hypodense foci of the kidneys which are too small to characterize. Probable cyst of the lateral inferior pole right kidney, 1.2 cm. No renal or ureteral calculi or hydronephrosis. Prostamegaly. Urinary bladder wall thickening with partial distention. 0.6 and urinary diverticulum involves the anterior superior aspect of the urinary bladder. Atherosclerosis of the aorta. Fusiform infrarenal abdominal aortic aneurysm is unchanged, 3.4 x 2.9 cm. No lymphadenopathy. Small hiatal hernia with mild distal esophageal wall thickening. No bowel obstruction or bowel wall thickening. Colonic diverticulosis without acute diverticulitis. Mild fecal retention. The appendix is not visualized. No ascites or mesenteric inflammation. Unremarkable soft tissues. No acute fracture. Lumbar levoscoliosis. IMPRESSION: 1. No acute intra-abdominal or intrapelvic abnormality. 2. No bowel obstruction or bowel wall thickening. 3. Colonic diverticulosis. 4. Prostamegaly with findings of chronic bladder outlet obstruction. Correlate with urinalysis to exclude cystitis. 5. Fusiform infrarenal abdominal aortic aneurysm is unchanged measuring up to 3.4 cm. 6. Additional findings as above. ACT 112: Negative or not required by law. The above report was generated using voice recognition software. It may contain grammatical, syntax or spelling errors. Electronically signed by: Bulmaro Deluca M.D. 12/10/2021 9:29 PM Discharge Plan Visit Data Chief Complaint: Fall Stated Complaint: FALL, WEAKNESS ED Provider: Gael Mcintyre Discharge Problem: COVID-19 virus infection, Near syncope, Hypomagnesemia, On home oxygen therapy, Weakness Patient Disposition: Admitted As Inpatient Discharge Instructions Interventions: ED Discharge Assessment Last Done: 12/11/21 01:25
[2021-12-11] MEDS ORDERED: dexAMETHasone 6 MG in SYRINGE 0 ML IV ONE (01:54)
[2021-12-11] MEDS ORDERED: DEXTROSE 50% 50 ML SYRINGE IV PRN (01:54)
[2021-12-11] MEDS ORDERED: GLUCAGON FOR INJ 1 MG VIAL SQ PRN (01:54)
[2021-12-11] MEDS ORDERED: ACETAMINOPHEN 325 MG TAB PO PRN (01:54)
[2021-12-11] MEDS ORDERED: ALBUTEROL HFA 8 GM INHALER INH PRN (01:54)
[2021-12-11] MEDS ORDERED: GLUCOSE 40% GEL 15 GM TUBE PO PRN (01:54)
[2021-12-11] MEDS ORDERED: CARBOHYDRATES FOR HYPOGLYCEMIA PO PRN (01:54)
[2021-12-11] MEDS ORDERED: GLUCOSE 10 TAB/TUBE PO PRN (01:54)
[2021-12-11] MEDS ORDERED: ONDANSETRON INJ 2 MG/ML 2 ML VIAL IV PRN (01:54)
[2021-12-11] MEDS ORDERED: cefTRIAXone SODIUM 1,000 MG in DEXTROSE 5% 50 ML IV SCH (03:00)
[2021-12-11] MEDS ORDERED: AZITHROMYCIN 500 MG in DEXTROSE 5% 250 ML IV SCH (03:00)
[2021-12-11] MEDS: APIXABAN 5 MG TABLET PO SCH ×3 (03:50→20:13)
[2021-12-11] MEDS: levETIRAcetam 500 MG TAB PO SCH ×3 (03:50→20:13)
[2021-12-11] MEDS: LEVOTHYROXINE SODIUM 25 MCG TABLET PO SCH (06:20)
[2021-12-11 07:28] LABS: Basophils # (auto) 0.07 K/uL (0-0.2); Basophils % (auto) 0.9 %; Eosinophils % (auto) 1.2 %; Hematocrit (blood only) 37.6 % (40.1-51.0); Hemoglobin 12.4 g/dl (14.0-18.0); Immature Granulocytes # (auto) 0.03 K/uL (0.00-0.02); Immature Granulocytes % (auto) 0.4 %; Lymphocytes # (auto) 0.55 K/uL (1.2-3.4); Lymphocytes % (auto) 6.8 %; Mean Corpuscular Hemoglobin 26.7 pg (25.0-34.0); Mean Platelet Volume 9.7 fL (9.4-12.4); Monocytes # (auto) 0.27 K/uL (0.24-0.82); Monocytes % (auto) 3.3 %; Neutrophils # (auto) 7.08 K/uL (1.4-6.5); Neutrophils % (auto) 87.4 %; Platelet Count 197 K/uL (130-400); RDW Coefficient of Variation 18.5 % (11.5-14.5); RDW Standard Deviation 53.3 fL (36.4-46.3); Red Blood Count 4.64 M/uL (4.63-6.08)
[2021-12-11] MEDS: INSULIN ASPART PER UNIT SC SCH ×4 (08:00→20:35)
[2021-12-11 08:03] LABS: Albumin Globulin Ratio 1.3 (0.9-2); Albumin Level 4.2 gm/dl (3.4-5.0); BUN Creatinine Ratio 16.9 (10-20); Bilirubin,Total 0.3 mg/dl (0.2-1.0); Calcium 8.7 mg/dl (8.5-10.1); Creatinine Clr Calc Pharmacy 80.3 ml/min; Est GFR (African American) 102.7 ml/min; Est GFR (Non-African American) 88.6 ml/min; Globulin 3.3 gm/dl (2.5-4.0); Potassium 3.8 mmol/L (3.5-5.1); Total Protein 7.5 gm/dl (6.0-8.3)
[2021-12-11 08:22] LABS: Estimated Average Glucose 140 mg/dl; Hemoglobin A1C 6.5 % (4.5-5.6)
[2021-12-11] MEDS: SERTRALINE HCL 100 MG TABLET PO SCH (08:49)
[2021-12-11] MEDS: ASPIRIN 81 MG ECTAB PO SCH (08:49)
[2021-12-11] MEDS: CHOLECALCIFEROL 5,000 UNITS 125 MCG TAB PO SCH (08:50)
[2021-12-11] MEDS: UMECLIDINIUM/VILANTEROL 62.5/25MCG 7 PUFFS/INHALER INH SCH (08:50)
[2021-12-11] MEDS: FLUTICASONE FUROATE 100MCG 14 PUFFS/INHALER INH SCH (08:51)
[2021-12-11] MEDS ORDERED: NON-FORMULARY MEDICATION (Fluticasone-Umeclidin-Vilanter [Trelegy Ellipta] 100-62.5-25 mcg INH SCH (09:00)
[2021-12-11] MEDS: CEFEPIME 2,000 MG in SYRINGE 0 ML IV SCH ×2 (09:04→16:48)
--- NOTE | 2021-12-11 09:28 | Electrocardiogram Report ---
Test Reason : Blood Pressure : / mmHG Vent. Rate : 069 BPM Atrial Rate : 069 BPM P-R Int : 132 ms QRS Dur : 088 ms QT Int : 402 ms P-R-T Axes : 055 024 047 degrees QTc Int : 430 ms Poor data quality, interpretation may be adversely affected Normal sinus rhythm Nonspecific ST abnormality Anterolateral leads Abnormal ECG When compared with ECG of 19-MAY-2021 07:59, Nonspecific ST abnormality Anterolateral leads less pronounced Confirmed by Paolo Fontenot ([id number]) on 12/11/2021 9:27:54 AM Referred By: REFERRED SELF Confirmed By:Paolo Fontenot
--- NOTE | 2021-12-11 09:35 | Electrocardiogram Report ---
Test Reason : Blood Pressure : / mmHG Vent. Rate : 087 BPM Atrial Rate : 087 BPM P-R Int : 136 ms QRS Dur : 076 ms QT Int : 396 ms P-R-T Axes : 058 035 069 degrees QTc Int : 476 ms Poor data quality, interpretation may be adversely affected Sinus rhythm with Premature atrial complexes in a pattern of bigeminy (one aberrantly conducted) Minor Nonspecific ST abnormality Anterolateral leads Abnormal ECG When compared with ECG of 10-DEC-2021 18:06, Premature atrial complexes are now Present Confirmed by Paolo Fontenot ([id number]) on 12/11/2021 9:35:15 AM Referred By: REFERRED SELF Confirmed By:Paolo Fontenot
--- NOTE | 2021-12-11 19:37 | Hospitalist Progress Note ---
Date of Service December 11, 2021 Assessment & Plan (1) Near syncope: Plan: Near syncope likely secondary to multifactorial causes including not limited to worsening hypoxia, generalized debilitation, hypomagnesemia, COVID-19 virus infection, others did have some bradycardia but nothing appearing c/w blocks noted - continue to follow on monitor. last echo 02/27/21 EF 60-65, mild TR, mild LVH - no change from july 2019 (2) Acute on chronic respiratory failure with hypoxia: Plan: improved. continue COPD management. (3) COVID-19 virus infection: Plan: COVID-19 virus infection is likely contributing primarily to general debilitation through worsening weakness, does not appear to be contributing significantly to respiratory state. on decadron. ok for paxlovid from home (4) CAD (coronary artery disease): Plan: CAD/atrial flutter/paroxysmal atrial fibrillation- Continue apixaban, aspirin, diltiazem. (5) Hypomagnesemia: Plan: mag now 2 (6) COPD (chronic obstructive pulmonary disease): Plan: See above (7) Atrial flutter: Plan: See above (8) Type 2 diabetes mellitus: Plan: sugars acceptable (9) Paroxysmal atrial fibrillation: Plan: rate controlled, anticoagulated (10) Chronic pulmonary aspiration: Plan: See above (11) Ex-smoker: (12) Seizure disorder: Plan: Continue Keppra 1000 mg twice daily (13) Hypothyroidism (acquired): Plan: Continue levothyroxine 25 mcg every morning (14) Dyslipidemia: Plan: Continue atorvastatin 40 mg at bedtime (15) Depression: Plan: Continue sertraline Admission and Anticipated Discharge Date Admission Date: December 10, 2021 Subjective Generally feeling much better. Notes that he was able to get up and around in the room by himself into the bathroom. Did not feel weak or lightheaded doing it. He is eating okay. No shortness of breath. Called his and chrisshe wondered if he would need rehabwe discussed that PT/OT have not formally assessed him yet, but that it sounds like he is doing betterat the end of the conversation since she is coming to visit him tomorrow anyway, we agreed to have him get up and around with us to be able to make a judgment call on how he is doing. She also really wanted him on Paxlovidwe discussed that it is not available as part of the hospital formulary, but that, while this does sound convoluted, I could call a prescription to his outpatient pharmacy, they could bring it in, and he could take it from home. Review of Systems Review of Systems: All systems reviewed & are unremarkable except as noted in HPI & below Physical Exam Physical Exam: gen aaox3 pleasant nad heent nc at mmm cardio reg no r/m/g lungs cta b/l but quiet no r/r/w good effort skin no rashes no pallor or icterus Results & Data Results & Data ([facility]) Vital Signs (Past 12 Hours) Vital Signs Temp Pulse Pulse Resp BP Pulse Ox O2 Del Method 12/11/21 19:11 98.1 F 58 L 20 132/79 95 Room Air 12/11/21 15:00 56 L 12/11/21 16:26 97.3 F L 55 L 17 140/77 96 Room Air 12/11/21 12:16 97.3 F L 49 L 17 134/73 94 Room Air 12/11/21 10:18 98.6 F 88 16 127/72 97 Room Air PG Care Time/CCT Total # of Minutes Spent Total Time Spent with Patient: Total time spent is greater than 50% in coordination of care (as documented) at patient's floor/unit and/or counseling patient: Coding Level of Care Code 21495 Subseq Hosp Care Lvl 3 Diagnoses Near syncope R55 Acute on chronic respiratory failure with hypoxia J96.21 COVID-19 virus infection U07.1 CAD (coronary artery disease) I25.10 Coronary Disease-Associated Artery/Lesion type: [place] artery [place] vs. transplanted heart: [place] heart Associated angina: without angina Hypomagnesemia E83.42 COPD (chronic obstructive pulmonary disease) J44.9 Atrial flutter I48.92 Atrial flutter type: unspecified Type 2 diabetes mellitus E11.9 Diabetes mellitus chcf insulin use: without long term care administrator use Diabetes mellitus complication status: without complication Paroxysmal atrial fibrillation I48.0 Chronic pulmonary aspiration T17.908A Ex-smoker Z87.891 Seizure disorder G40.909 Hypothyroidism (acquired) E03.9 Dyslipidemia E78.5 Depression F32.9 Depression Type: unspecified (1) CAD (coronary artery disease) Coronary Disease-Associated Artery/Lesion type: [place] artery [place] vs. transplanted heart: [place] heart Associated angina: without angina Qualified Code(s): I25.10 - Atherosclerotic heart disease of [place] coronary artery without angina pectoris (2) Atrial flutter Atrial flutter type: unspecified Qualified Code(s): I48.92 - Unspecified atrial flutter (3) Type 2 diabetes mellitus Diabetes mellitus chcf insulin use: without chcf use Diabetes mellitus complication status: without complication Qualified Code(s): E11.9 - Type 2 diabetes mellitus without complications (4) Depression Depression Type: unspecified Qualified Code(s): F32.9 - Major depressive disorder, single episode, unspecified
[2021-12-11] MEDS ORDERED: ATORVASTATIN 40 MG TAB PO SCH (21:00)
[2021-12-11] MEDS ORDERED: MONTELUKAST SODIUM 10 MG TABLET PO SCH (21:00)
[2021-12-11] MEDS ORDERED: dilTIAZem HCL 240 MG CAPCR PO SCH (21:00)
[2021-12-12] MEDS: LEVOTHYROXINE SODIUM 25 MCG TABLET PO SCH (06:22)
[2021-12-12 07:09] LABS: Basophils # (auto) 0.05 K/uL (0-0.2); Basophils % (auto) 0.9 %; Eosinophils # (auto) 0.03 K/uL (0-0.50); Eosinophils % (auto) 0.5 %; Hematocrit (blood only) 40.5 % (40.1-51.0); Hemoglobin 13.2 g/dl (14.0-18.0); Immature Granulocytes # (auto) 0.02 K/uL (0.00-0.02); Immature Granulocytes % (auto) 0.4 %; Mean Corpuscular Hemoglobin 26.6 pg (25.0-34.0); Mean Corpuscular Hgb Conc 32.6 g/dL (32.0-36.0); Mean Corpuscular Volume 81.7 fL (80.0-100.0); Mean Platelet Volume 9.8 fL (9.4-12.4); Monocytes % (auto) 19.3 %; Neutrophils # (auto) 3.31 K/uL (1.4-6.5); Neutrophils % (auto) 57.9 %; Platelet Count 199 K/uL (130-400); RDW Coefficient of Variation 18.6 % (11.5-14.5); RDW Standard Deviation 53.9 fL (36.4-46.3); Red Blood Count 4.96 M/uL (4.63-6.08); White Blood Count 5.71 K/ul (4.8-10.8)
[2021-12-12 07:47] LABS: BUN Creatinine Ratio 23.9 (10-20); Creatinine Clr Calc Pharmacy 66.7 ml/min; Est GFR (African American) 102.7 ml/min; Est GFR (Non-African American) 88.6 ml/min; Potassium 3.8 mmol/L (3.5-5.1)
[2021-12-12] MEDS: INSULIN ASPART PER UNIT SC SCH ×2 (08:04→11:10)
[2021-12-12] MEDS: UMECLIDINIUM/VILANTEROL 62.5/25MCG 7 PUFFS/INHALER INH SCH (08:22)
[2021-12-12] MEDS: APIXABAN 5 MG TABLET PO SCH (08:22)
[2021-12-12] MEDS: FLUTICASONE FUROATE 100MCG 14 PUFFS/INHALER INH SCH (08:22)
[2021-12-12] MEDS: levETIRAcetam 500 MG TAB PO SCH (08:22)
[2021-12-12] MEDS: SERTRALINE HCL 100 MG TABLET PO SCH (08:23)
[2021-12-12] MEDS: CHOLECALCIFEROL 5,000 UNITS 125 MCG TAB PO SCH (08:23)
[2021-12-12] MEDS: ASPIRIN 81 MG ECTAB PO SCH (08:23)
[2021-12-12] MEDS ORDERED: dexAMETHasone 6 MG in SYRINGE 0 ML IV SCH (09:00)
--- NOTE | 2021-12-12 18:42 | Discharge Summary ---
Date of Service December 12, 2021 Admission HPI Per Admitting Provider The patient is an 81-year-old male with a past medical history including COPD, iron deficiency anemia, history of 40 years of tobacco use, present tobacco chewer, atrial flutter, chronic respiratory failure with oxygen requirement, seizure disorder, cerebral cavernoma, paroxysmal A. fib, hypothyroidism, CAD, V. tach, vitamin D deficiency, vitamin B12 deficiency, AAA, mild cognitive impairment, diabetes mellitus type 2, asthma and TIA. The patient reportedly has been getting home physical therapy during the springtime, but this was stopped several months ago, and family felt that he was gradually getting weaker during that time. Today he became much more acutely weak, and was brought to the emergency department as noted. Significant abnormal laboratories: Magnesium 1.5, hemoglobin 12.2, hematocrit 38.3, RSV negative, influenza negative, COVID-[address] scan of head showed severe paranasal sinus disease. CT of abdomen pelvis showed BPH with LUTS, AAA 3.4 cm in size. Chest x-ray showed no acute findings Principal Diagnosis Multifactorial weaknessCOVID, dehydration playing a large role (now improved) Discharge Exam In general he is awake and alert pleasant no distress. HEENT normocephalic atraumatic mucous membranes moist. Breathing unlabored no accessory muscle use good effortlungs are clear without rales rhonchi or wheezes. Cardio is distant but regular no rubs murmurs or gallops. He is almost entirely sinus on the monitor mild sinus bradycardia, and 1 short run of A. fib that self terminated. Skin shows no rashes no pallor or icterus. Discharge Data Allergies Allergy/AdvReac Type Severity Reaction Status Date / Time pollen extracts Allergy Mild CONGESTION Verified 12/10/21 23:35 Consultations 12/10/21 22:13 ED Decision to Admit Stat Ordered Studies 12/10/21 20:35 CT head/brain wo con Stat 12/10/21 20:37 CT abd pelvis IV con only Stat Hospital Course (1) Near syncope: Near syncope likely secondary to multifactorial causes including COVID, dehydration, hypomagnesemiaimproved nicely. As far as weakness, he improved very quicklyand actually did quite well with physical therapy Very mild bradycardia overnightsno blocks/no rhythms that would require pacerpredominantly sinus with short amount of A. fiband he has known paroxysmal A. fib. last echo 02/27/21 EF 60-65, mild TR, mild LVH - no change from july 2019 (2) Acute on chronic respiratory failure with hypoxia: improved. continue COPD management. (3) COVID-19 virus infection: Seems to be improving alreadyfamily requested Paxlovid, which given his age is reasonableordered and he will take at home -Doing extremely well and very safe/stable for home, it seems that predominantly he was weak from COVID and probably dehydrated from poor appetitebut has no significant septic/respiratory complications -After discussion with , symptom onset was probably 7 days ago -Initially was very opposed to him coming home, noting that she did not feel he could come home and a family member who is a nurse practitioner did not think he should go home. in elucidating why she had these concerns, none of them were centered on his illness/strength/weakness/etc.it was entirely her fear of exposure from him. She noted that she does not like wearing an N95 and it feels very constrictive and she did not want to do that at home. 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 In discussing home situationhis bedroom is on the first floor hers is on the second, and while she usually uses the bathroom on the first floor, it did not sound like that was absolutely necessary, and she noted that his chair is only a few feet away from her is where they normally sit. We discussed practical measures for home isolation in that respect. Further, we had a very lengthy discussiondiscussed that he is absolutely well enough to leave the hospital, which she had no hesitation about in regards to his medical stability, strength etc., discussed that she was at least exposed to him probably and Monday prior to admission, and given her recollection that he may be started to become symptomatic on y have been exposed to them starting even as far back as a week ago (previous Monday), discussed that in terms of risk/benefit keeping an older gentleman in the hospital longer when he no longer medically requires it has a clear increase risk of harmmost notably deconditioning and delirium (described both in detailnoted that since he is doing surprisingly well with PT deconditioning may take a lot longerbut I have seen it happen abruptly, but I would be far more concerned about delirium, which could really happen at any timeeither of which would easily play out to him possibly needing rehab or skilled rather than being able to go home), and discussed that while it would be my lowest concern for him, hospital-acquired infections do happen with a relative frequencyand certainly getting someone out of the hospital environment once they no longer need it becomes about the best way to prevent hospital-acquired infections. We then further discussed the changing nature of what we are seeing clinically with COVID infections. Lastly, discussed that at this point COVID has become so wildly contagious that it may actually be unavoidable for most people unless they avoid all social interaction. Once she realized that keeping him in the hospital was not a riskless proposition for his health/wellbeing she quickly felt more comfortable with taking him home. incidentally, she had COVID in March 2020, and has been vaccinated. (4) CAD (coronary artery disease): Asymptomatic. Home meds (5) Hypomagnesemia: Replaced (6) COPD (chronic obstructive pulmonary disease): Home meds (7) Atrial flutter: Predominantly sinus (8) Type 2 diabetes mellitus: sugars acceptable (9) Paroxysmal atrial fibrillation: rate controlled, anticoagulated (10) Chronic pulmonary aspiration: Listed on the chart, did not appear to play a role in his acute presentation at all (11) Ex-smoker: (12) Seizure disorder: Continue Keppra 1000 mg twice daily (13) Hypothyroidism (acquired): Home Synthroid (14) Dyslipidemia: Continue atorvastatin 40 mg at bedtime (15) Depression: Continue sertraline Total Time Total Time Spent Total Time Spent (In Minutes): Greater than 30 Discharge Plan Discharge Items Patient Disposition: Home - Self-Care Reason For Visit: NEAR SYNCOPE,HYPOMAG,CHRONIC BRONCH/SINUSITIS,COVI Discharge Diagnosis: covid, dehydration Activity: Resume your previous activity Non-emergency contact: Primary Care Provider Call non-emergency contact if: you have any medication questions Follow-up/Referrals: Lorna Tucker, [Primary Care Provider] - Diet: Regular Addtl Attending Provider Instructions: please ensure that you get enough to drink each day - ~60 ounces should be good, more if you're doing anything in the heat. Pending Studies at Discharge: No Stand-Alone Forms: My Flocations, Smoking Cessation Medications and DC Order Prescriptions: Continued fluticasone propionate [Allergy Relief (fluticasone)] 50 mcg/actuation spray,suspension 1 - 2 spray INTNAS DAILY PRN (Reason: Nasal Congestion) Qty: 16 5RF sertraline 100 mg tablet 100 mg PO QAM Qty: 90 2RF atorvastatin [Lipitor] 40 mg tablet 40 mg PO HS Qty: 90 3RF diltiazem HCl [Cartia XT] 240 mg capsule,extended release 24hr 240 mg PO HS Qty: 90 3RF montelukast 10 mg tablet 10 mg PO HS Qty: 90 1RF lisinopril 20 mg tablet 20 mg PO HS Qty: 90 1RF metformin 850 mg tablet 850 mg PO BID Qty: 180 1RF Eliquis 5 mg tablet 5 mg PO BID Qty: 180 3RF Trelegy Ellipta 100-62.5-25 mcg blister with device 1 inh INHALATION QAM Qty: 180 1RF calcium carbonate-vitamin D3 600 mg(1,500mg) -400 unit tablet 2 tab PO HS levetiracetam [Keppra] 500 mg tablet 1,000 mg PO BID 90 Days Qty: 360 3RF albuterol sulfate [Ventolin HFA] 90 mcg/actuation HFA aerosol inhaler 2 puff INH Q4H PRN (Reason: Shortness Of Breath Or Wheezing) Qty: 8.5 3RF guaifenesin [Mucinex] 600 mg tablet extended release 12hr 600 mg PO Q12 PRN (Reason: cough) Qty: 60 1RF levothyroxine [Synthroid] 25 mcg tablet 25 mcg PO QAM Qty: 90 1RF cyanocobalamin (vitamin B-12) [Vitamin B-12] 1,000 mcg tablet 1,000 mcg PO QAM metoprolol tartrate 25 mg tablet 25 mg PO QAM aspirin 81 mg Tablet,Delayed Release (Dr/Ec) 81 mg PO QAM Discharge Orders: Discharge Order (Routine); Ordered 12/12/21 Ordered By: Maximino Izaguirre Admission Data Admit Date/Time: 12/10/21 23:22 Attending Provider: Maximino Izaguirre Admit Provider: Isauro Elena Primary Care Provider: Lorna Tucker Other Providers: Isauro Elena Other Interventions: Discharge Summary Assessment (RN) Last Done: 12/12/21 14:06 Coding Level of Care Code D/C DAY MANAGEMENT >30 MINS Diagnoses Near syncope R55 Acute on chronic respiratory failure with hypoxia J96.21 COVID-19 virus infection U07.1 CAD (coronary artery disease) I25.10 Coronary Disease-Associated Artery/Lesion type: [place] artery [place] vs. transplanted heart: [place] heart Associated angina: without angina Hypomagnesemia E83.42 COPD (chronic obstructive pulmonary disease) J44.9 Atrial flutter I48.92 Atrial flutter type: unspecified Type 2 diabetes mellitus E11.9 Diabetes mellitus exterminator insulin use: without exterminator use Diabetes mellitus complication status: without complication Paroxysmal atrial fibrillation I48.0 Chronic pulmonary aspiration T17.908A Ex-smoker Z87.891 Seizure disorder G40.909 Hypothyroidism (acquired) E03.9 Dyslipidemia E78.5 Depression F32.9 Depression Type: unspecified
== END 2021-12-12 14:41 | disposition home or self-care (01) | DRG 177 ==
LOC: ED 18:01 → SUATTDRO 23:22 → 2S 23:22

== ENCOUNTER 2022-09-10 18:51 | Inpatient (IN) ==
--- NOTE | 2022-09-10 19:21 | Emergency Department Note ---
Impression & Plan Vomiting, Hypoxia, Hypomagnesemia ED Provider Note NAME: LUCIAN LOPEZ AGE: 81 SEX: M : 1940 ARRIVES VIA: Ambulance INFORMANT: Patient, EMS ED PROVIDER(S): Marck De La Fuente DO CHIEF COMPLAINT: Vomiting HPI: The patient is an 81-year-old male who presented to the emergency department for an evaluation of nausea and vomiting. History was obtained from the prehospital personnel. Reportedly the patient does have some degree of underlying dementia. The patient received Zofran prior to arrival. He had multiple episodes of emesis. There was some question as to whether or not the patient was doing well at home. His significant other called 911. She is still pending arrival. The patient himself offers no complaints. He denies having any abdominal pain or chest pain. He denies having any difficulty breathing at this time but he was noted to have low oxygen saturation prior to arrival. He was placed on supplemental oxygen in the emergency department. The patient denies having any injuries or headaches. He denies having any changes to his medications. He states that he has been compliant with his outpatient medicati on regimen. ROS: See above HPI for pertinent positives & negatives. A total of 10 systems reviewed and were otherwise negative. PAST MEDICAL HISTORY: See Below PAST SURGICAL HISTORY: See Below FAMILY HISTORY: See Below SOCIAL HISTORY: See Below HOME MEDICATIONS: See Below ALLERGIES: See Below VITALS: See Below PHYSICAL EXAMINATION: GENERAL: The patient is awake and alert. The patient is somewhat anxious.. He appears comfortable. EYES: The conjunctivae are clear. The pupils are round and reactive. EARS, NOSE, MOUTH AND THROAT: The nose is without any evidence of any deformity. Mucous membranes are dry. NECK: The neck is nontender and supple. RESPIRATORY: Normal respiratory effort is noted there is no evidence of wheezing rhonchi or rales CARDIOVASCULAR: Regular rate and rhythm noted there no murmurs rubs or gallops normal S1 normal S2. GASTROINTESTINAL: The abdomen was soft and mildly distended. There is no specific tenderness guarding rigidity MUSCULOSKELETAL/EXTREMITIES: There is no evidence of gross deformity full range of motion is noted in the hips and shoulders. SKIN: Trace pedal edema was noted bilaterally.. Skin was warm and dry NEUROLOGIC: Patient is awake alert and to person place and situation. The patient was confused on time. Strength was symmetric but diminished. There was no facial droop. Speech was clear. MEDICAL DECISION MAKING: The patient is an 81-year-old male who presented to the emergency department for an evaluation of nausea vomiting. The patient does have some underlying dementia and upon arrival here has no complaints. It sounds that he may have home oxygen at home but he was noted to have hypoxia upon arrival. He was placed on supplemental oxygen. I discussed the patient's laboratory and radiographic studies with him. According to the prehospital personnel it sounds of the patient's significant other is not able to care for him as well and was requesting him to be transported as well as for an evaluation of further placement. The patient was treated with magnesium replacement in the emergency department. He was reevaluated multiple times. Again he was feeling much better. I discussed patient's condition with the on-call [facility] ist. They have agreed to evaluate the patient in the emergency department for further management and disposition. Triage Nursing notes reviewed. Prior medical records reviewed Vital Signs: reviewed and remarkable for no significant abnormalities Differential diagnosis: Gastroenteritis, food borne illness, infections, appendicitis, diverticulitis, inflammatory bowel disease, obstruction, GI bleed, biliary pathology, volvulus, as well as other pathologies. ER treatment provided: See below Diagnostics interpreted by me: ECG: EKG was obtained in the emergency department. My interpretation is normal sinus rhythm at 80 bpm. There is no ectopy. Nonspecific ST depressions were noted in the lateral and inferior leads. This was compared to a tracing from December 10, 2021. No significant changes were noted. A second EKG was obtained in the emergency department. My interpretation is normal sinus rhythm at 82 bpm. There is no ectopy. Continued ST depressions were noted in the inferior and lateral leads. There was no significant change compared to the earlier tracing. Cardiac Monitoring: An order was placed for continuous cardiac monitoring. The monitor shows a rate of 77 bpm with sinus rhythm. Laboratory studies: As stated above and show below. Imaging studies: See below. Radiographic imaging was reviewed by myself Consultation(s): I discussed this case with Dr. Dickey who is on-call for the [facility] hospitalist group. Past Med/Surg History Medical History Abdominal aortic aneurysm (AAA), 30-34 mm diameter Anxiety Arteriosclerotic coronary artery disease Asthma Atrial flutter DX [address] CUELLAR IN [place] Benign prostatic hyperplasia with urinary obstruction CAD (coronary artery disease) Cerebral cavernoma Chronic pulmonary aspiration Depression Dyslipidemia Fever History of acute bronchitis with bronchospasm History of basal cell carcinoma (BCC) of skin (05/2020) History of sinusitis Hypertension Hypothyroidism (acquired) Hypoxia Mild cognitive impairment On home oxygen therapy AT NIGHT Osteoarthritis Osteoporosis Paroxysmal atrial fibrillation DX [address] CUELLAR IN [place] Pneumonia Seizure 01/29/19 - X2 ON THAT DAY AND WAS ADMITTED AND STARTED ON [place] AND NO SEIZURE SINCE Seizure disorder (01/2019) SOB (shortness of breath) TIA (transient ischemic attack) 2017 X 1 AND NONE SINCE Tremor HANDS Type 2 diabetes mellitus Vitamin B12 deficiency Vitamin D deficiency Surgical History H/O 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 History of anesthesia reaction states "stopped breathing during MOHS procedure at the [facility] [place] History of colonoscopy History of lung biopsy (03/27/19) Navigational Bronchoscopy with ICG Dye, Robotic Right Video Assisted Thoracoscopy with Right Lower Lobe Wedge Resection with Mediastinal Lymphadenectomy and Lymph Node Biopsy Dr. Lynn 03/27/19 Hx of cardiac cath 2017 -- HEART CATH WITH STENT 6 [facility] WITH DR CUELLAR LAST SEEN 12/20/2018 Presence of Watchman left atrial appendage closure device (06/24/22) S/P Mohs surgery for basal cell carcinoma Family History Father Heart disease Other COPD (chronic obstructive pulmonary disease) Depression Family history non-contributory Denies family history of Ovarian cancer Prostate cancer Coronary heart disease Myocardial infarction Breast cancer Seizure Lung cancer Colorectal cancer Social History Smoking Status: Former smoker Tobacco Type: Cigarettes Age Started Using Tobacco: 18; Age Quit Using Tobacco: 33; packs per day: 2; Cigarettes Per Day: 20-40; Second Hand Exposure: No; Do You Dip or Chew Tobacco: Yes; Hx Alcohol Use: No Hx Substance Use: No Preferred Language: Syriac Communication Ability: Impaired Visual Impairment: No Limitations Hearing Ability: Use of Hearing Aid Supervisory Investigative Specialist Required: No Beliefs That Will Affect Care: None marital status: Current Living Situation: Spouse current occupational status: retired 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, 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[employer] ([place]) How many Children do You have: 3 Feels Safe at Home: Yes Childhood Exposure to Second-Hand Smoke: Yes Diet: regular Diet Comment: regular caffeine: No during the past year weight has: remained stable Dental Care, Regularly: No Physical Activity Frequency: Does not Exercise Seatbelt Use: never Sunscreen Use: Yes Assistive Devices: Cane, Denture - Upper, Denture - Lower, Glasses, Hearing Aid - Bilateral and Oxygen - at Night Allergies Allergies Allergy/AdvReac Type Severity Reaction Status Date / Time pollen extracts Allergy Mild CONGESTION Verified 09/10/22 19:11 No Known Drug Allergies Allergy Unknown Unknown Unverified 09/10/22 19:11 Home Meds Home Medications Medication Instructions Recorded Confirmed calcium carbonate 600 mg-vitamin 2 tab PO HS 01/16/19 09/10/22 D3 10 mcg (400 unit) tablet cyanocobalamin (vitamin B-12) 1,000 mcg PO QAM 11/07/19 09/10/22 1,000 mcg tablet (Vitamin B-12) aspirin 81 mg tablet,delayed 81 mg PO QAM 02/26/21 09/10/22 release guaifenesin 600 mg tablet, 1,200 mg PO Q12 PRN cough 07/11/22 09/10/22 extended release 12 hr (Mucinex) Previous Rx's Medication Instructions Recorded fluticasone propionate 50 1 - 2 spray intranasal DAILY PRN 12/17/20 mcg/actuation nasal Nasal Congestion #16 grams spray,suspension (Allergy Relief (fluticasone)) albuterol sulfate 90 mcg/actuation 2 puff inhalation Q4H PRN 02/25/21 aerosol inhaler (Ventolin HFA) Shortness Of Breath Or Wheezing #8.5 grams levetiracetam 500 mg tablet 1,000 mg PO BID 90 days #360 tabs 03/03/22 (Keppra) sertraline 100 mg tablet 100 mg PO QAM #90 tabs 03/07/22 fluticasone fur. 100 mcg-umeclid 1 inh inhalation QAM #180 ea 03/21/22 62.5 mcg-vilant 25 mcg inhalat.powder (Trelegy Ellipta) metformin 850 mg tablet 850 mg PO BID #180 tabs 03/24/22 atorvastatin 40 mg tablet (Lipitor) 40 mg PO HS #90 tabs 06/06/22 diltiazem HCl 240 mg 240 mg PO HS #90 caps 06/06/22 capsule,extended release 24 hr (Cartia XT) levothyroxine 25 mcg tablet 25 mcg PO QAM #90 tabs 06/20/22 (Synthroid) clopidogrel 75 mg tablet 75 mg PO DAILY #90 tabs 07/11/22 metoprolol tartrate 25 mg tablet 25 mg PO QAM #90 tabs 07/18/22 lisinopril 20 mg tablet 20 mg PO HS #90 tabs 08/01/22 montelukast 10 mg tablet 10 mg PO HS #90 tabs 08/01/22 Results & Data (ED) Vital Signs Vital Signs - 24 hr 09/10/22 18:37 09/10/22 18:37 09/10/22 19:09 Temperature 37 C Temperature Source Oral Pulse Rate 89 Pulse Rate from SpO2 Sensor Pulse Rhythm Respiratory Rate 24 Respiratory Effort / Characteristics Non-Labored Spontaneous Non-Labored Spontaneous Respiratory Depth Normal Blood Pressure 146/85 H Blood Pressure Mean 105 Pulse Oximetry 95 87 L Oxygen Delivery Method Nasal Cannula Room Air Oxygen Flow Rate 2 0 Sepsis Recent Fever Within 48 Hours No Sepsis New/Unexplained Change in Mental Status No Sepsis Action Taken by Nursing No Action Required Oxygen Flow Rate - Titration 2 Fraction of Inspired Oxygen - Titration Pulse Oximetry Post Tiitration 95 09/10/22 19:14 09/10/22 19:14 09/10/22 19:01 Temperature Temperature Source Pulse Rate 85 88 Pulse Rate from SpO2 Sensor 88 Pulse Rhythm Regular Respiratory Rate 20 18 Respiratory Effort / Characteristics Non-Labored Spontaneous Respiratory Depth Blood Pressure Blood Pressure Mean Pulse Oximetry 95 95 Oxygen Delivery Method Nasal Cannula Oxygen Flow Rate 2 Sepsis Recent Fever Within 48 Hours Sepsis New/Unexplained Change in Mental Status Sepsis Action Taken by Nursing Oxygen Flow Rate - Titration Fraction of Inspired Oxygen - Titration Pulse Oximetry Post Tiitration 09/10/22 19:03 09/10/22 19:10 09/10/22 19:20 Temperature Temperature Source Pulse Rate 91 H 90 88 Pulse Rate from SpO2 Sensor 87 89 Pulse Rhythm Respiratory Rate 22 22 20 Respiratory Effort / Characteristics Respiratory Depth Blood Pressure 146/85 H Blood Pressure Mean 105 Pulse Oximetry 95 96 Oxygen Delivery Method Oxygen Flow Rate Sepsis Recent Fever Within 48 Hours Sepsis New/Unexplained Change in Mental Status Sepsis Action Taken by Nursing Oxygen Flow Rate - Titration Fraction of Inspired Oxygen - Titration Pulse Oximetry Post Tiitration 09/10/22 19:30 09/10/22 19:40 09/10/22 19:45 Temperature Temperature Source Pulse Rate 85 83 77 Pulse Rate from SpO2 Sensor 86 82 78 Pulse Rhythm Respiratory Rate 22 24 23 Respiratory Effort / Characteristics Respiratory Depth Blood Pressure 132/80 Blood Pressure Mean 97 Pulse Oximetry 95 91 95 Oxygen Delivery Method Oxygen Flow Rate Sepsis Recent Fever Within 48 Hours Sepsis New/Unexplained Change in Mental Status Sepsis Action Taken by Nursing Oxygen Flow Rate - Titration Fraction of Inspired Oxygen - Titration Pulse Oximetry Post Tiitration 09/10/22 19:50 09/10/22 20:00 09/10/22 20:38 Temperature Temperature Source Pulse Rate 82 79 Pulse Rate from SpO2 Sensor 82 Pulse Rhythm Respiratory Rate 21 24 Respiratory Effort / Characteristics Respiratory Depth Blood Pressure 133/73 128/71 Blood Pressure Mean 93 90 Pulse Oximetry 92 92 89 L Oxygen Delivery Method Nasal Cannula Oxygen Flow Rate 2 Sepsis Recent Fever Within 48 Hours Sepsis New/Unexplained Change in Mental Status Sepsis Action Taken by Nursing Oxygen Flow Rate - Titration Fraction of Inspired Oxygen - Titration 4 Pulse Oximetry Post Tiitration 90 09/10/22 20:10 09/10/22 20:15 09/10/22 20:20 Temperature Temperature Source Pulse Rate 82 82 84 Pulse Rate from SpO2 Sensor 82 82 85 Pulse Rhythm Respiratory Rate 24 18 24 Respiratory Effort / Characteristics Respiratory Depth Blood Pressure 132/78 Blood Pressure Mean 96 Pulse Oximetry 93 93 92 Oxygen Delivery Method Oxygen Flow Rate Sepsis Recent Fever Within 48 Hours Sepsis New/Unexplained Change in Mental Status Sepsis Action Taken by Nursing Oxygen Flow Rate - Titration Fraction of Inspired Oxygen - Titration Pulse Oximetry Post Tiitration 09/10/22 20:30 09/10/22 20:40 09/10/22 20:45 Temperature Temperature Source Pulse Rate 81 88 78 Pulse Rate from SpO2 Sensor 83 88 78 Pulse Rhythm Respiratory Rate 23 22 19 Respiratory Effort / Characteristics Respiratory Depth Blood Pressure 131/78 124/68 Blood Pressure Mean 95 86 Pulse Oximetry 92 91 97 Oxygen Delivery Method Oxygen Flow Rate Sepsis Recent Fever Within 48 Hours Sepsis New/Unexplained Change in Mental Status Sepsis Action Taken by Nursing Oxygen Flow Rate - Titration Fraction of Inspired Oxygen - Titration Pulse Oximetry Post Tiitration 09/10/22 20:50 09/10/22 21:00 09/10/22 21:10 Temperature Temperature Source Pulse Rate 76 77 83 Pulse Rate from SpO2 Sensor 77 77 82 Pulse Rhythm Respiratory Rate 24 21 22 Respiratory Effort / Characteristics Respiratory Depth Blood Pressure 120/67 Blood Pressure Mean 84 Pulse Oximetry 98 93 94 Oxygen Delivery Method Oxygen Flow Rate Sepsis Recent Fever Within 48 Hours Sepsis New/Unexplained Change in Mental Status Sepsis Action Taken by Nursing Oxygen Flow Rate - Titration Fraction of Inspired Oxygen - Titration Pulse Oximetry Post Tiitration 09/10/22 21:15 09/10/22 21:20 09/10/22 21:30 Temperature Temperature Source Pulse Rate 81 85 75 Pulse Rate from SpO2 Sensor 82 85 77 Pulse Rhythm Respiratory Rate 24 23 20 Respiratory Effort / Characteristics Respiratory Depth Blood Pressure 125/75 118/69 Blood Pressure Mean 91 85 Pulse Oximetry 94 94 97 Oxygen Delivery Method Oxygen Flow Rate Sepsis Recent Fever Within 48 Hours Sepsis New/Unexplained Change in Mental Status Sepsis Action Taken by Nursing Oxygen Flow Rate - Titration Fraction of Inspired Oxygen - Titration Pulse Oximetry Post Tiitration 09/10/22 21:40 09/10/22 21:45 09/10/22 21:50 Temperature Temperature Source Pulse Rate 85 81 79 Pulse Rate from SpO2 Sensor Pulse Rhythm Respiratory Rate 16 15 17 Respiratory Effort / Characteristics Respiratory Depth Blood Pressure 109/77 Blood Pressure Mean 87 Pulse Oximetry Oxygen Delivery Method Oxygen Flow Rate Sepsis Recent Fever Within 48 Hours Sepsis New/Unexplained Change in Mental Status Sepsis Action Taken by Nursing Oxygen Flow Rate - Titration Fraction of Inspired Oxygen - Titration Pulse Oximetry Post Tiitration 09/10/22 22:00 09/10/22 22:10 09/10/22 22:20 Temperature Temperature Source Pulse Rate 74 72 74 Pulse Rate from SpO2 Sensor Pulse Rhythm Respiratory Rate 15 16 19 Respiratory Effort / Characteristics Respiratory Depth Blood Pressure 129/66 Blood Pressure Mean 87 Pulse Oximetry Oxygen Delivery Method Oxygen Flow Rate Sepsis Recent Fever Within 48 Hours Sepsis New/Unexplained Change in Mental Status Sepsis Action Taken by Nursing Oxygen Flow Rate - Titration Fraction of Inspired Oxygen - Titration Pulse Oximetry Post Tiitration 09/10/22 22:30 Temperature Temperature Source Pulse Rate 77 Pulse Rate from SpO2 Sensor Pulse Rhythm Respiratory Rate 15 Respiratory Effort / Characteristics Respiratory Depth Blood Pressure 122/77 Blood Pressure Mean 92 Pulse Oximetry Oxygen Delivery Method Oxygen Flow Rate Sepsis Recent Fever Within 48 Hours Sepsis New/Unexplained Change in Mental Status Sepsis Action Taken by Nursing Oxygen Flow Rate - Titration Fraction of Inspired Oxygen - Titration Pulse Oximetry Post Tiitration Home Medications Current Medication List: was personally reviewed by me Laboratory Data Attestation: I reviewed the patient's lab results. 09/10/22 19:25 09/10/22 19:25 Lab Results 09/10/22 09/10/22 09/10/22 Range/Units 19:25 19:25 19:25 WBC 15.00 H (4.8-10.8) K/ul RBC 4.73 (4.70-6.10) M/uL Hgb 12.3 L (14.0-18.0) g/dl Hct 37.5 L (42.0-52.0) % MCV 79.3 L (80.0-100.0) fL MCH 26.0 (25.0-34.0) pg MCHC 32.8 (32.0-36.0) g/dL RDW Std Deviation 54.7 H (36.4-46.3) fL RDW Coeff of Ashu 19.2 H (11.5-14.5) % Plt Count 242 (130-400) K/uL MPV 9.6 (9.4-12.4) fL Immature Gran % (Auto) 0.3 % Neut % (Auto) 88.0 % Lymph % (Auto) 4.9 % [place] % (Auto) 5.7 % Eos % (Auto) 0.7 % Baso % (Auto) 0.4 % Neut # (Auto) 13.21 H (1.40-6.50) K/uL Lymph # (Auto) 0.74 L (1.2-3.4) K/uL [place] # (Auto) 0.85 H (0.11-0.59) K/uL Eos # (Auto) 0.10 (0-0.50) K/uL Baso # (Auto) 0.06 (0-0.2) K/uL Immature Gran # (Auto) 0.04 (0.01-0.20) K/uL PT 11.9 (9.0-12.0) Seconds INR 1.1 (0.9-1.1) APTT 25.7 (21.0-31.0) Seconds PTT Ratio 0.9 VBG pH (7.36-7.41) VBG pCO2 (38-50) mmHg VBG pO2 mmHg VBG HCO3 mmol/L VBG O2 Saturation % VBG Base Excess mEq/L Sodium 134 L (136-145) mmol/L Potassium 3.8 (3.5-5.1) mmol/L Chloride 101 (98-107) mmol/L Carbon Dioxide 23 (21-32) mmol/L Anion Gap 10 (3-11) BUN 17 (6-23) mg/dl Creatinine 0.79 (0.6-1.4) mg/dl Est Cr Clr Drug Dosing 63.5 ml/min Est GFR ( Amer) 98.3 ml/min Est GFR (Non-Af Amer) 84.8 ml/min BUN/Creatinine Ratio 21.5 H (10-20) Glucose 150 H (70-99(Fasting)) mg/dl Lactate (0.4-2.0) mmol/L Calcium 8.8 (8.6-10.3) mg/dl Magnesium 1.4 L (1.7-2.4) mg/dl Total Bilirubin 0.4 (0.2-1.0) mg/dl Direct Bilirubin 0.0 (0-0.2) mg/dl AST 13 (13-39) U/L ALT 9 (7-52) U/L Alkaline Phosphatase 87 (34-104) U/L Troponin I High Sens 7.1 (0-20) pg/ml Total Protein 7.4 (6.0-8.3) gm/dl Albumin 3.9 (3.4-5.0) gm/dl Procalcitonin (0-0.5) ng/ml SARS-CoV-2, RNA, NAAT (NEGATIVE) 09/10/22 09/10/22 09/10/22 Range/Units 19:25 19:26 19:26 WBC (4.8-10.8) K/ul RBC (4.70-6.10) M/uL Hgb (14.0-18.0) g/dl Hct (42.0-52.0) % MCV (80.0-100.0) fL MCH (25.0-34.0) pg MCHC (32.0-36.0) g/dL RDW Std Deviation (36.4-46.3) fL RDW Coeff of Ashu (11.5-14.5) % Plt Count (130-400) K/uL MPV (9.4-12.4) fL Immature Gran % (Auto) % Neut % (Auto) % Lymph % (Auto) % [place] % (Auto) % Eos % (Auto) % Baso % (Auto) % Neut # (Auto) (1.40-6.50) K/uL Lymph # (Auto) (1.2-3.4) K/uL [place] # (Auto) (0.11-0.59) K/uL Eos # (Auto) (0-0.50) K/uL Baso # (Auto) (0-0.2) K/uL Immature Gran # (Auto) (0.01-0.20) K/uL PT (9.0-12.0) Seconds INR (0.9-1.1) APTT (21.0-31.0) Seconds PTT Ratio VBG pH 7.40 (7.36-7.41) VBG pCO2 41 (38-50) mmHg VBG pO2 47 mmHg VBG HCO3 25 mmol/L VBG O2 Saturation 80.1 % VBG Base Excess 0.5 mEq/L Sodium (136-145) mmol/L Potassium (3.5-5.1) mmol/L Chloride (98-107) mmol/L Carbon Dioxide (21-32) mmol/L Anion Gap (3-11) BUN (6-23) mg/dl Creatinine (0.6-1.4) mg/dl Est Cr Clr Drug Dosing ml/min Est GFR ( Amer) ml/min Est GFR (Non-Af Amer) ml/min BUN/Creatinine Ratio (10-20) Glucose (70-99(Fasting)) mg/dl Lactate 1.0 (0.4-2.0) mmol/L Calcium (8.6-10.3) mg/dl Magnesium (1.7-2.4) mg/dl Total Bilirubin (0.2-1.0) mg/dl Direct Bilirubin (0-0.2) mg/dl AST (13-39) U/L ALT (7-52) U/L Alkaline Phosphatase (34-104) U/L Troponin I High Sens (0-20) pg/ml Total Protein (6.0-8.3) gm/dl Albumin (3.4-5.0) gm/dl Procalcitonin < 0.05 (0-0.5) ng/ml SARS-CoV-2, RNA, NAAT (NEGATIVE) 09/10/22 Range/Units 20:45 WBC (4.8-10.8) K/ul RBC (4.70-6.10) M/uL Hgb (14.0-18.0) g/dl Hct (42.0-52.0) % MCV (80.0-100.0) fL MCH (25.0-34.0) pg MCHC (32.0-36.0) g/dL RDW Std Deviation (36.4-46.3) fL RDW Coeff of Ashu (11.5-14.5) % Plt Count (130-400) K/uL MPV (9.4-12.4) fL Immature Gran % (Auto) % Neut % (Auto) % Lymph % (Auto) % [place] % (Auto) % Eos % (Auto) % Baso % (Auto) % Neut # (Auto) (1.40-6.50) K/uL Lymph # (Auto) (1.2-3.4) K/uL [place] # (Auto) (0.11-0.59) K/uL Eos # (Auto) (0-0.50) K/uL Baso # (Auto) (0-0.2) K/uL Immature Gran # (Auto) (0.01-0.20) K/uL PT (9.0-12.0) Seconds INR (0.9-1.1) APTT (21.0-31.0) Seconds PTT Ratio VBG pH (7.36-7.41) VBG pCO2 (38-50) mmHg VBG pO2 mmHg VBG HCO3 mmol/L VBG O2 Saturation % VBG Base Excess mEq/L Sodium (136-145) mmol/L Potassium (3.5-5.1) mmol/L Chloride (98-107) mmol/L Carbon Dioxide (21-32) mmol/L Anion Gap (3-11) BUN (6-23) mg/dl Creatinine (0.6-1.4) mg/dl Est Cr Clr Drug Dosing ml/min Est GFR ( Amer) ml/min Est GFR (Non-Af Amer) ml/min BUN/Creatinine Ratio (10-20) Glucose (70-99(Fasting)) mg/dl Lactate (0.4-2.0) mmol/L Calcium (8.6-10.3) mg/dl Magnesium (1.7-2.4) mg/dl Total Bilirubin (0.2-1.0) mg/dl Direct Bilirubin (0-0.2) mg/dl AST (13-39) U/L ALT (7-52) U/L Alkaline Phosphatase (34-104) U/L Troponin I High Sens (0-20) pg/ml Total Protein (6.0-8.3) gm/dl Albumin (3.4-5.0) gm/dl Procalcitonin (0-0.5) ng/ml SARS-CoV-2, RNA, NAAT NEGATIVE (NEGATIVE) Administered Medications Discontinued Medications Magnesium Sulfate/Dextrose (Magnesium Sulfate / D5w) 1 gm in 100 mls @ 100 mls/hr IV NOW STA Stop: 09/10/22 21:28 Last Infusion: 09/10/22 21:48 Dose: 0 mls/hr Documented By: Admin: 09/10/22 20:43 Dose: 100 mls/hr Documented By: BIMAL Imaging Data Attestation: I personally reviewed and interpreted this imaging study as follows: My Impression: 1 view chest x-ray was obtained in the emergency department. My interpretation is no infiltrate, no free air, final report below. KUB was obtained in the emergency department. My interpretation is no free air, no definite obstruction, final report below. Radiologist's Impression: Chest X-Ray 09/10/22 19:14 XR chest 1V portable HISTORY: Sepsis COMPARISON: Chest 12/10/2021. FINDINGS: No pneumothorax. No pleural effusions. The cardiac silhouette is normal in size. No new focal lung consolidations to suggest a pneumonia. No evidence for pulmonary edema. Coronary artery stents are again noted. IMPRESSION: No acute process. ACT 112: Negative or not required by law. Electronically signed by: Reagan Villanueva M.D. 09/10/2022 7:58 PM KUB X-Ray 09/10/22 19:21 KUB HISTORY: vomiting COMPARISON: Abdomen and pelvis CT 12/10/2021. FINDINGS: Mildly dilated stool-filled colon consistent with severe fecal retention. No dilated loops of small bowel to suggest a small bowel obstruction. No renal calculi. No ureteral calculi. No pneumoperitoneum or pneumatosis. IMPRESSION: 1. No evidence for a small bowel obstruction. 2. Distended stool-filled colon suggestive of severe fecal retention. ACT 112: Negative or not required by law. Electronically signed by: Reagan Villanueva M.D. 09/10/2022 7:59 PM Discharge Plan Visit Data Chief Complaint: Vomiting Stated Complaint: VOMITING X3 DAYS, "FAILURE TO THRIVE" ED Provider: Marck De La Fuente Discharge Problem: Vomiting, Hypoxia, Hypomagnesemia Patient Disposition: Being Evaluated by Hospitalist Forms Stand Alone Forms: My [facility] Prescriptions Prescriptions: No Action fluticasone propionate [Allergy Relief (fluticasone)] 50 mcg/actuation spray,suspension 1 - 2 spray INTNAS DAILY PRN (Reason: Nasal Congestion) Qty: 16 5RF levetiracetam [Keppra] 500 mg tablet 1,000 mg PO BID 90 Days Qty: 360 3RF sertraline 100 mg tablet 100 mg PO QAM Qty: 90 2RF metformin 850 mg tablet 850 mg PO BID Qty: 180 1RF diltiazem HCl [Cartia XT] 240 mg capsule,extended release 24hr 240 mg PO HS Qty: 90 3RF atorvastatin [Lipitor] 40 mg tablet 40 mg PO HS Qty: 90 3RF levothyroxine [Synthroid] 25 mcg tablet 25 mcg PO QAM Qty: 90 1RF metoprolol tartrate 25 mg tablet 25 mg PO QAM Qty: 90 1RF lisinopril 20 mg tablet 20 mg PO HS Qty: 90 1RF montelukast 10 mg tablet 10 mg PO HS Qty: 90 1RF calcium carbonate-vitamin D3 600 mg(1,500mg) -400 unit tablet 2 tab PO HS albuterol sulfate [Ventolin HFA] 90 mcg/actuation HFA aerosol inhaler 2 puff INH Q4H PRN (Reason: Shortness Of Breath Or Wheezing) Qty: 8.5 3RF guaifenesin [Mucinex] 600 mg tablet extended release 12hr 1,200 mg PO Q12 PRN (Reason: cough) clopidogrel 75 mg tablet 75 mg PO DAILY Qty: 90 1RF Trelegy Ellipta 100-62.5-25 mcg blister with device 1 inh INHALATION QAM Qty: 180 1RF cyanocobalamin (vitamin B-12) [Vitamin B-12] 1,000 mcg tablet 1,000 mcg PO QAM aspirin 81 mg Tablet,Delayed Release (Dr/Ec) 81 mg PO QAM Referrals Referrals: Lorna Tucker DO [Primary Care Provider] -
[2022-09-10 19:35] LABS: Base Excess VBG 0.5 mEq/L; HCO3 VBG 25 mmol/L; Oxygen Saturation VBG 80.1 %; PCO2 VBG 41 mmHg (38-50); PO2 VBG 47 mmHg
[2022-09-10 19:45] LABS: Basophils # (auto) 0.06 K/uL (0-0.2); Basophils % (auto) 0.4 %; Eosinophils % (auto) 0.7 %; Hematocrit (blood only) 37.5 % (42.0-52.0); Hemoglobin 12.3 g/dl (14.0-18.0); Immature Granulocytes # (auto) 0.04 K/uL (0.01-0.20); Immature Granulocytes % (auto) 0.3 %; Lymphocytes # (auto) 0.74 K/uL (1.2-3.4); Lymphocytes % (auto) 4.9 %; Mean Corpuscular Hgb Conc 32.8 g/dL (32.0-36.0); Mean Corpuscular Volume 79.3 fL (80.0-100.0); Mean Platelet Volume 9.6 fL (9.4-12.4); Monocytes # (auto) 0.85 K/uL (0.11-0.59); Monocytes % (auto) 5.7 %; Neutrophils # (auto) 13.21 K/uL (1.40-6.50); Platelet Count 242 K/uL (130-400); RDW Coefficient of Variation 19.2 % (11.5-14.5); RDW Standard Deviation 54.7 fL (36.4-46.3); Red Blood Count 4.73 M/uL (4.70-6.10)
--- NOTE | 2022-09-10 20:00 | XRay Report ---
XR chest 1V portable HISTORY: Sepsis COMPARISON: Chest 12/10/2021. FINDINGS: No pneumothorax. No pleural effusions. The cardiac silhouette is normal in size. No new foc al lung consolidations to suggest a pneumonia. No evidence for pulmonary edema. Coronary artery stent s are again noted. IMPRESSION: No acute process. ACT 112: Negative or not required by law. Electronically signed by: Reagan Villanueva M.D. 09/10/2022 7:58 PM
--- NOTE | 2022-09-10 20:01 | XRay Report ---
KUB HISTORY: vomiting COMPARISON: Abdomen and pelvis CT 12/10/2021. FINDINGS: Mildly dilated stool-filled colon consistent with severe fecal retention. No dilated loops of small bowel to suggest a small bowel obstruction. No renal calculi. No ureteral calculi. No pneum operitoneum or pneumatosis. IMPRESSION: 1. No evidence for a small bowel obstruction. 2. Distended stool-filled colon suggestive of severe fecal retention. ACT 112: Negative or not required by law. Electronically signed by: Reagan Villanueva M.D. 09/10/2022 7:59 PM
[2022-09-10 20:03] LABS: Albumin Level 3.9 gm/dl (3.4-5.0); BUN Creatinine Ratio 21.5 (10-20); Bilirubin,Total 0.4 mg/dl (0.2-1.0); Calcium 8.8 mg/dl (8.6-10.3); Creatinine Clr Calc Pharmacy 63.5 ml/min; Est GFR (African American) 98.3 ml/min; Est GFR (Non-African American) 84.8 ml/min; Magnesium 1.4 mg/dl (1.7-2.4); Potassium 3.8 mmol/L (3.5-5.1); Total Protein 7.4 gm/dl (6.0-8.3)
[2022-09-10 20:10] LABS: Troponin I High Sensitivity 7.1 pg/ml (0-20)
[2022-09-10 20:23] LABS: INR 1.1 (0.9-1.1); Partial Thromboplastin Ratio 0.9; Partial Thromboplastin Time 25.7 Seconds (21.0-31.0); Prothrombin Time 11.9 Seconds (9.0-12.0)
[2022-09-10] MEDS ORDERED: MAGNESIUM SULFATE / D5W 1 GM/100 ML BAG IV STA (20:29)
--- NOTE | 2022-09-10 23:26 | History & Physical Report ---
Date of Service September 10, 2022 Assessment & Plan (1) Vomiting: Plan: 81-year-old male with multiple medical comorbidities presenting with acute episode of nausea and vomiting following breakfast this morning. Also with diffuse, generalized weakness. Patient at present denying abdominal pain. No additional nausea or further episodes of vomiting. No evidence of dehydration on physical exam. Mild electrolyte abnormalities as discussed below. Zofran as needed Electrolyte repletion (2) Weakness: Plan: reports diffuse, generalized weakness. PT/OT evaluation Fall precautions (3) Fecal retention: Plan: KUB with comment of large stool burden suggestive of fecal retention. Dulcolax LA daily MiraLAX 17 g p.o. daily -Colace as needed Monitor for stool output. if persistent constipation may need disimpaction (4) Hypomagnesemia: Plan: magnesium = 1.4 Mag supplementation Repeat labs in the morning (5) COPD (chronic obstructive pulmonary disease): Plan: patient denies cough, shortness of breath or wheeze. He has home oxygen but reports he rarely uses it. Brief episode of hypoxia in the ER. Presently saturating well on 2 L Continue supplemental oxygen as needed with goal saturation 88 to 92% and patient with COPD Albuterol as needed for cough, shortness of breath or wheeze Continue Trelegy or formulary equivalent (6) Atrial flutter: Plan: patient presently in normal sinus rhythm. Rate = 67 Metoprolol 25 mg p.o. every morning Continue diltiazem No anticoagulation. Patient with Watchman device in place (7) Seizure disorder: Plan: Patient denies recent seizure Continue Keppra 1000 mg p.o. twice daily (8) Hypothyroidism (acquired): Plan: Chronic. Stable. Continue Synthroid 25 mcg p.o. daily (9) CAD (coronary artery disease): Plan: Chronic. Stable. Patient denies chest pain. No acute ischemic changes present on EKG Continue aspirin 81 mg p.o. daily Continue atorvastatin 40 mg p.o. nightly Continue Plavix 75 mg p.o. daily Continue metoprolol 25 mg p.o. every morning Continue lisinopril 20 mg p.o. nightly (10) Depression: Plan: chronic. Stable. Continue sertraline 100 mg p.o. every morning (11) Dyslipidemia: Plan: Chronic. Stable. Continue atorvastatin (12) Type 2 diabetes mellitus: Plan: Well-controlled. Patient is on metformin 850 mg p.o. twice daily. patient tolerating therapy Insulin sliding scale with goal blood sugar 110-180 F/E/NHep-Lock, electrolyte repletion as above, heart healthy/carb consistent diet as tolerated Prophylaxis Lovenox Codefull per discussion with patient Dispositionadmit to medical History of Present Illness Chief Complaint: nausea, vomiting Primary Care Provider: Lorna Tucker DO Jose J Zurita is an 81-year-old male with multiple medical comorbidities to include coronary artery disease, COPD, depression, hypertension, seizure disorder and atrial flutter presenting from home with diffuse generalized weakne ss as well as nausea and vomiting that occurred earlier today. Patient had breakfast out with his son today as he does every Monday. Reports that the last 3 Saturdays he has developed nausea and vomiting after his breakfast. He typically orders over easy eggs, toast, dhillon, potatoes and coffee. He states he became nauseous after the meal and vomited in his son's car. Nonbloody/nonbilious. Additionally, patient has had generalized weakness with difficulty ambulating. His patient is requesting a PT/OT evaluation. Evaluation for possible placement needs. In the ER he is afebrile, hemodynamically stable, single episode of [id number]% on room air. Presently saturating well 96% on 2 L nasal cannula with no respiratory distress ER course Magnesium Zofran Allergies Allergy/AdvReac Type Severity Reaction Status Date / Time pollen extracts Allergy Mild CONGESTION Verified 09/10/22 19:11 No Known Drug Allergies Allergy Unknown Unknown Unverified 09/10/22 19:11 Home Medications Medication Instructions Recorded Confirmed Type calcium carbonate 600 mg-vitamin 2 tab PO HS 01/16/19 09/10/22 History D3 10 mcg (400 unit) tablet cyanocobalamin (vitamin B-12) 1,000 mcg PO QAM 11/07/19 09/10/22 History 1,000 mcg tablet (Vitamin B-12) fluticasone propionate 50 1 - 2 spray intranasal DAILY PRN 12/17/20 09/10/22 Rx mcg/actuation nasal Nasal Congestion #16 grams spray,suspension (Allergy Relief (fluticasone)) albuterol sulfate 90 mcg/actuation 2 puff inhalation Q4H PRN 02/25/21 09/10/22 Rx aerosol inhaler (Ventolin HFA) Shortness Of Breath Or Wheezing #8.5 grams aspirin 81 mg tablet,delayed 81 mg PO QAM 02/26/21 09/10/22 History release levetiracetam 500 mg tablet 1,000 mg PO BID 90 days #360 tabs 03/03/22 09/10/22 Rx (Keppra) sertraline 100 mg tablet 100 mg PO QAM #90 tabs 03/07/22 09/10/22 Rx fluticasone fur. 100 mcg-umeclid 1 inh inhalation QAM #180 ea 03/21/22 09/10/22 Rx 62.5 mcg-vilant 25 mcg inhalat.powder (Trelegy Ellipta) metformin 850 mg tablet 850 mg PO BID #180 tabs 03/24/22 09/10/22 Rx atorvastatin 40 mg tablet (Lipitor) 40 mg PO HS #90 tabs 06/06/22 09/10/22 Rx diltiazem HCl 240 mg 240 mg PO HS #90 caps 06/06/22 09/10/22 Rx capsule,extended release 24 hr (Cartia XT) levothyroxine 25 mcg tablet 25 mcg PO QAM #90 tabs 06/20/22 09/10/22 Rx (Synthroid) clopidogrel 75 mg tablet 75 mg PO DAILY #90 tabs 07/11/22 09/10/22 Rx guaifenesin 600 mg tablet, 1,200 mg PO Q12 PRN cough 07/11/22 09/10/22 History extended release 12 hr (Mucinex) metoprolol tartrate 25 mg tablet 25 mg PO QAM #90 tabs 07/18/22 09/10/22 Rx lisinopril 20 mg tablet 20 mg PO HS #90 tabs 08/01/22 09/10/22 Rx montelukast 10 mg tablet 10 mg PO HS #90 tabs 08/01/22 09/10/22 Rx Past Med/Surg History Medical History Abdominal aortic aneurysm (AAA), 30-34 mm diameter Anxiety Arteriosclerotic coronary artery disease Asthma Atrial flutter DX [address] CUELLAR IN [facility] Benign prostatic hyperplasia with urinary obstruction CAD (coronary artery disease) Cerebral cavernoma Chronic pulmonary aspiration Depression Dyslipidemia Fever History of acute bronchitis with bronchospasm History of basal cell carcinoma (BCC) of skin (05/2020) History of sinusitis Hypertension Hypothyroidism (acquired) Hypoxia Mild cognitive impairment On home oxygen therapy AT NIGHT Osteoarthritis Osteoporosis Paroxysmal atrial fibrillation DX [address] CUELLAR IN [facility] Pneumonia Seizure 01/29/19 - X2 ON THAT DAY AND WAS ADMITTED AND STARTED ON [place] AND NO SEIZURE SINCE Seizure disorder (01/2019) SOB (shortness of breath) TIA (transient ischemic attack) 2017 X 1 AND NONE SINCE Tremor HANDS Type 2 diabetes mellitus Vitamin B12 deficiency Vitamin D deficiency Surgical History H/O 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 History of anesthesia reaction states "stopped breathing during MOHS procedure at the [facility] [place] History of colonoscopy History of lung biopsy (03/27/19) Navigational Bronchoscopy with ICG Dye, Robotic Right Video Assisted Thoracoscopy with Right Lower Lobe Wedge Resection with Mediastinal Lymphadenectomy and Lymph Node Biopsy Dr. Lynn 03/27/19 Hx of cardiac cath 2017 -- HEART CATH WITH STENT [address] [facility] [address] CUELLAR LAST SEEN 12/20/2018 Presence of Watchman left atrial appendage closure device (06/24/22) S/P Mohs surgery for basal cell carcinoma Family History Father Heart disease Other COPD (chronic obstructive pulmonary disease) Depression Family history non-contributory Denies family history of Ovarian cancer Prostate cancer Coronary heart disease Myocardial infarction Breast cancer Seizure Lung cancer Colorectal cancer Social History Smoking Status: Unknown if ever smoked Tobacco Type: Cigarettes Age Started Using Tobacco: 18; Age Quit Using Tobacco: 33; packs per day: 2; Cigarettes Per Day: 20-40; Second Hand Exposure: No; Do You Dip or Chew Tobacco: Yes; Hx Alcohol Use: No Hx Substance Use: No Preferred Language: Polish Communication Ability: Effective Visual Impairment: No Limitations Hearing Ability: Use of Hearing Aid Client 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 Analyst Required: No Beliefs That Will Affect Care: None marital status: Current Living Situation: Spouse current occupational status: retired 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, 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[employer] How many Children do You have: 3 Other Information That Helps Us Care for You: No Feels Safe at Home: Yes Safety Concerns: Feels Safe At This Time Childhood Exposure to Second-Hand Smoke: Yes Diet: regular Diet Comment: regular caffeine: No during the past year weight has: remained stable Dental Care, Regularly: No Physical Activity Frequency: Does not Exercise Seatbelt Use: never Sunscreen Use: Yes Assistive Devices: Glasses, Oxygen - Continuous and Walker Review of Systems Review of Systems: All systems reviewed & are unremarkable except as noted in HPI & below Physical Exam Physical Exam: General: patient resting comfortably, NAD, non-toxic in appearance, AA&O x 4 Skin: warm, dry, intact, no rashes or lesions HEENT: NC/AT, PERRL, EOMI, anicteric sclera, conjunctiva without injection, external ear normal to inspection and nontender, nares patent, moist mucus membranes, dentition intact, no oropharyngeal lesions, neck supple, trachea midline, no LAD, no thyromegaly, no JVD Heart: +S1/S2, regular, no m/r/g Lungs: equal air entry bilaterally, no rales/rhonchi/wheezes Abd: +BS, soft, NT/ND, no masses/organomegaly/ascites Ext: warm, 2+ pulses in UE/LE bilaterally, no clubbing/cyanosis or edema Neuro: nonfocal, patient AA&O x 4, speech intact, no facial droop, moving all extremities on command with equal strength 5/5 Results & Data Results & Data Vital Signs (Past 12 Hours) Vital Signs Temp Pulse Resp BP Pulse Ox O2 Del Method O2 Flow Rate 09/10/22 23:20 74 21 96 09/10/22 23:15 69 15 119/69 95 09/10/22 23:10 75 24 95 09/10/22 23:00 73 18 123/82 97 Nasal Cannula 2 09/10/22 22:50 68 20 98 09/10/22 22:45 71 20 129/78 98 09/10/22 22:40 71 18 97 09/10/22 22:30 77 15 122/77 09/10/22 22:20 74 19 09/10/22 22:10 72 16 09/10/22 22:00 74 15 129/66 09/10/22 21:50 79 17 109/77 05/06/23 21:45 81 15 09/10/22 21:40 85 16 09/10/22 21:30 75 20 118/69 97 09/10/22 21:20 85 23 94 09/10/22 21:15 81 24 125/75 94 09/10/22 21:10 83 22 94 09/10/22 21:00 77 21 120/67 93 09/10/22 20:50 76 24 98 09/10/22 20:45 78 19 124/68 97 09/10/22 20:40 88 22 91 09/10/22 20:30 81 23 131/78 92 09/10/22 20:20 84 24 92 09/10/22 20:15 82 18 132/78 93 09/10/22 20:10 82 24 93 09/10/22 20:38 89 L Nasal Cannula 2 09/10/22 20:00 79 24 128/71 92 09/10/22 19:50 82 21 133/73 92 09/10/22 19:45 77 23 95 09/10/22 19:40 83 24 91 09/10/22 19:30 85 22 132/80 95 09/10/22 19:20 88 20 09/10/22 19:10 90 22 96 09/10/22 19:03 91 H 22 146/85 H 95 09/10/22 19:01 88 18 95 09/10/22 19:14 85 20 95 Nasal Cannula 2 09/10/22 19:09 87 L Room Air 0 09/10/22 18:37 37 C 89 24 146/85 H 95 Nasal Cannula 2 Laboratory Results Laboratory Results WBC 15.00 K/ul (4.8-10.8) H 09/10/22 19:25 RBC 4.73 M/uL (4.70-6.10) 09/10/22 19:25 Hgb 12.3 g/dl (14.0-18.0) L 09/10/22 19:25 Hct 37.5 % (42.0-52.0) L 09/10/22 19:25 MCV 79.3 fL (80.0-100.0) L 09/10/22 19:25 MCH 26.0 pg (25.0-34.0) 09/10/22 19:25 MCHC 32.8 g/dL (32.0-36.0) 09/10/22 19:25 RDW Std Deviation 54.7 fL (36.4-46.3) H 09/10/22 19: RDW Coeff of Ashu 19.2 % (11.5-14.5) H 09/10/22 19: Plt Count 242 K/uL (130-400) 09/10/22 19:25 MPV 9.6 fL (9.4-12.4) 09/10/22 19:25 Immature Gran % (Auto) 0.3 % 09/10/22 19:25 Neut % (Auto) 88.0 % 09/10/22 19:25 Lymph % (Auto) 4.9 % 09/10/22 19:25 Hunt % (Auto) 5.7 % 09/10/22 19:25 Eos % (Auto) 0.7 % 09/10/22 19:25 Baso % (Auto) 0.4 % 09/10/22 19:25 Neut # (Auto) 13.21 K/uL (1.40-6.50) H 09/10/22 19:25 Lymph # (Auto) 0.74 K/uL (1.2-3.4) L 09/10/22 19:25 Hunt # (Auto) 0.85 K/uL (0.11-0.59) H 09/10/22 19:25 Eos # (Auto) 0.10 K/uL (0-0.50) 09/10/22:25 Baso # (Auto) 0.06 K/uL (0-0.2) 09/10/22: Immature Gran # (Auto) 0.04 K/uL (0.01-0.20) 09/10/22 19:25 PT 11.9 Seconds (9.0-12.0) 09/10/22: INR 1.1 (0.9-1.1) 09/10/22: APTT 25.7 Seconds (21.0-31.0) 09/10/22: PTT Ratio 0.9 09/10/22: VBG pH 7.40 (7.36-7.41) 09/10/22: VBG pCO2 41 mmHg (38-50) 09/10/22: VBG pO2 47 mmHg 05/06/23 19:26 VBG HCO3 25 mmol/L 09/10/22 19:26 VBG O2 Saturation 80.1 % 09/10/22 19:26 VBG Base Excess 0.5 mEq/L 09/10/22 19:26 Sodium 134 mmol/L (136-145) L 09/10/22 19:25 Potassium 3.8 mmol/L (3.5-5.1) 09/10/22 19:25 Chloride 101 mmol/L (98-107) 09/10/22 19:25 Carbon Dioxide 23 mmol/L (21-32) 09/10/22 19:25 Anion Gap 10 (3-11) 09/10/22 19:25 BUN 17 mg/dl (6-23) 09/10/22 19:25 Creatinine 0.79 mg/dl (0.6-1.4) 09/10/22 19:25 Est Cr Clr Drug Dosing 63.5 ml/min 09/10/22 19:25 Est GFR ( Amer) 98.3 ml/min 09/10/22 19:25 Est GFR (Non-Af Amer) 84.8 ml/min 09/10/22 19:25 BUN/Creatinine Ratio 21.5 (10-20) H 09/10/22 19:25 Glucose 150 mg/dl (70-99(Fasting)) H 09/10/22 19:25 Lactate 1.0 mmol/L (0.4-2.0) 09/10/22 19:26 Calcium 8.8 mg/dl (8.6-10.3) 09/10/22 19:25 Magnesium 1.4 mg/dl (1.7-2.4) L 09/10/22 19:25 Total Bilirubin 0.4 mg/dl (0.2-1.0) 09/10/22 19:25 Direct Bilirubin 0.0 mg/dl (0-0.2) 09/10/22 19:25 AST 13 U/L (13-39) 09/10/22 19:25 ALT 9 U/L (7-52) 09/10/22 19:25 Alkaline Phosphatase 87 U/L (34-104) 09/10/22 19:25 Troponin I High Sens 7.1 pg/ml (0-20) 09/10/22 19:25 Total Protein 7.4 gm/dl (6.0-8.3) 09/10/22 19:25 Albumin 3.9 gm/dl (3.4-5.0) 09/10/22 19:25 Procalcitonin < 0.05 ng/ml (0-0.5) 09/10/22 19:25 Urine Color Yellow 09/11/22 00:15 Urine Appearance Clear (Clear) 09/11/22 00:15 Urine pH 5.0 (4.5-7.5) 09/11/22 00:15 Ur Specific Allen 1.022 (1.000-1.030) 09/11/22 00:15 Urine Protein 2+ (Negative) H 09/11/22 00:15 Urine Glucose (UA) Negative (Negative) 09/11/22 00:15 Urine Ketones 1+ (Negative) H 09/11/22 00:15 Urine Blood Negative (Negative) 09/11/22 00:15 Urine Nitrite Negative (Negative) 09/11/22 00:15 Urine Bilirubin Negative (Negative) 09/11/22 00:15 Urine Urobilinogen Negative (Negative) 09/11/22 00:15 Ur Leukocyte Esterase Negative (Negative) 09/11/22 00:15 Urine WBC (Auto) 1-5 /hpf (0-5) 09/11/22 00:15 Urine RBC (Auto) 0-4 /hpf (0-4) 09/11/22 00:15 U Hyaline Cast (Auto) 1-5 /lpf (0-5) 09/11/22 00:15 U Epithel Cells (Auto) 5-10 /lpf (0-5) H 09/11/22 00:15 Urine Bacteria (Auto) Negative (Negative) 09/11/22 00:15 SARS-CoV-2, RNA, NAAT NEGATIVE (NEGATIVE) 09/10/22 20:45 Impressions Chest X-Ray 09/10/22 19:14 XR chest 1V portable HISTORY: Sepsis COMPARISON: Chest 12/10/2021. FINDINGS: No pneumothorax. No pleural effusions. The cardiac silhouette is normal in size. No new focal lung consolidations to suggest a pneumonia. No evidence for pulmonary edema. Coronary artery stents are again noted. IMPRESSION: No acute process. ACT 112: Negative or not required by law. Electronically signed by: Reagan Villanueva M.D. 09/10/2022 7:58 PM KUB X-Ray 09/10/22 19:21 KUB HISTORY: vomiting COMPARISON: Abdomen and pelvis CT 12/10/2021. FINDINGS: Mildly dilated stool-filled colon consistent with severe fecal retention. No dilated loops of small bowel to suggest a small bowel obstruction. No renal calculi. No ureteral calculi. No pneumoperitoneum or pneumatosis. IMPRESSION: 1. No evidence for a small bowel obstruction. 2. Distended stool-filled colon suggestive of severe fecal retention. ACT 112: Negative or not required by law. Electronically signed by: Reagan Villanueva M.D. 09/10/2022 7:59 PM ECG Additional Comments: Per my interpretation. EKG shows normal sinus rhythm at 82 bpm, normal axis, LA = 128, QRS = 78, QTc = 434, LVH criteria likely present, nonspecific ST wave abnormalities. No acute ischemia PG Care Time/CCT Total # of Minutes Spent Total Time Spent with Patient: Total time spent is greater than 50% in coordination of care (as documented) at patient's floor/unit and/or counseling patient: Coding Level of Care Code 48885 INT INP/OBS CARE 3/75MIN Diagnoses Vomiting R11.2 Nausea presence: with nausea Vomiting type: unspecified Weakness R53.1 Fecal retention K59.00 Hypomagnesemia E83.42 COPD (chronic obstructive pulmonary disease) J44.9 Atrial flutter I48.92 Atrial flutter type: unspecified Seizure disorder G40.909 Hypothyroidism (acquired) E03.9 CAD (coronary artery disease) I25.10 Coronary Disease-Associated Artery/Lesion type: saxman artery [place] vs. transplanted heart: saxman heart Associated angina: without angina Depression F32.9 Depression Type: unspecified Dyslipidemia E78.5 Type 2 diabetes mellitus E11.9 Diabetes mellitus penitentiary insulin use: without penitentiary use Diabetes mellitus complication status: without complication (1) Vomiting Nausea presence: with nausea Vomiting type: unspecified Qualified Code(s): R11.2 - Nausea with vomiting, unspecified (6) Atrial flutter Atrial flutter type: unspecified Qualified Code(s): I48.92 - Unspecified atrial flutter (9) CAD (coronary artery disease) Coronary Disease-Associated Artery/Lesion type: saxman artery [place] vs. 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
[2022-09-11] MEDS ORDERED: ONDANSETRON INJ 2 MG/ML 2 ML VIAL IV PRN (00:29)
[2022-09-11] MEDS ORDERED: DOCUSATE SODIUM 100 MG CAP PO PRN (00:29)
[2022-09-11] MEDS ORDERED: ALBUTEROL HFA 8 GM INHALER INH PRN (00:29)
[2022-09-11] MEDS ORDERED: ACETAMINOPHEN 325 MG TAB PO PRN (00:29)
[2022-09-11 00:42] LABS: Appearance Urine Clear (Clear); Bacteria Urine Automated Negative (Negative); Bilirubin Urine Negative (Negative); Blood Urine Negative (Negative); Color Urine Yellow; Glucose Urine UA Negative (Negative); Ketones Urine 1+ (Negative); Leukocyte Esterase Urine Negative (Negative); Nitrite Urine Negative (Negative); Protein Urine 2+ (Negative); RBC Urine Automated 0-4 /hpf (0-4); Specific Gravity Urine 1.022 (1.000-1.030); Urobilinogen Urine Negative (Negative)
[2022-09-11] MEDS ORDERED: GLUCOSE 40% GEL 15 GM TUBE PO PRN (02:37)
[2022-09-11] MEDS ORDERED: GLUCAGON FOR INJ 1 MG VIAL SQ PRN (02:37)
[2022-09-11] MEDS ORDERED: CARBOHYDRATES FOR HYPOGLYCEMIA PO PRN (02:37)
[2022-09-11] MEDS ORDERED: DEXTROSE 50% 50 ML SYRINGE IV PRN (02:37)
[2022-09-11] MEDS ORDERED: GLUCOSE 10 TAB/TUBE PO PRN (02:37)
[2022-09-11] MEDS: LEVOTHYROXINE SODIUM 25 MCG TABLET PO SCH (06:24)
[2022-09-11 07:06] LABS: Hematocrit (blood only) 35.8 % (42.0-52.0); Hemoglobin 11.5 g/dl (14.0-18.0); Mean Corpuscular Hemoglobin 25.9 pg (25.0-34.0); Mean Corpuscular Hgb Conc 32.1 g/dL (32.0-36.0); Mean Corpuscular Volume 80.6 fL (80.0-100.0); Mean Platelet Volume 9.8 fL (9.4-12.4); Platelet Count 220 K/uL (130-400); RDW Coefficient of Variation 19.7 % (11.5-14.5); RDW Standard Deviation 57.1 fL (36.4-46.3); Red Blood Count 4.44 M/uL (4.70-6.10); White Blood Count 9.36 K/ul (4.8-10.8)
[2022-09-11 07:25] LABS: BUN Creatinine Ratio 19.7 (10-20); Calcium 8.4 mg/dl (8.6-10.3); Creatinine Clr Calc Pharmacy 68.3 ml/min; Est GFR (African American) 102.7 ml/min; Est GFR (Non-African American) 88.6 ml/min; Potassium 3.8 mmol/L (3.5-5.1)
[2022-09-11] MEDS: ASPIRIN 81 MG ECTAB PO SCH (08:24)
[2022-09-11] MEDS: levETIRAcetam 500 MG TAB PO SCH ×2 (08:25→20:08)
[2022-09-11] MEDS: CLOPIDOGREL BISULFATE 75 MG TAB PO SCH (08:25)
[2022-09-11] MEDS: METOPROLOL TARTRATE 25 MG TAB PO SCH (08:25)
[2022-09-11] MEDS: SERTRALINE HCL 100 MG TABLET PO SCH (08:25)
[2022-09-11] MEDS: ENOXAPARIN INJ 40 MG/0.4 ML SYR SQ SCH (08:26)
[2022-09-11] MEDS: UMECLIDINIUM/VILANTEROL 62.5/25MCG 7 PUFFS/INHALER INH SCH (08:27)
[2022-09-11] MEDS: FLUTICASONE FUROATE 100MCG 14 PUFFS/INHALER INH SCH (08:27)
[2022-09-11] MEDS: POLYETHYLENE (MIRALAX) 17 GM PACK PO SCH (08:28)
[2022-09-11] MEDS: INSULIN ASPART PER UNIT CHARGE SC SCH ×4 (08:33→20:49)
[2022-09-11] MEDS ORDERED: NON-FORMULARY MEDICATION (Fluticasone-Umeclidin-Vilanter [Trelegy Ellipta] 100-62.5-25 mcg INH SCH (09:00)
--- NOTE | 2022-09-11 09:21 | Hospitalist Progress Note ---
Date of Service September 11, 2022 Assessment & Plan (1) Vomiting: Plan: 81-year-old male with history of COPD, iron deficiency anemia, atrial flutter, CAD, DM 2 admitted for weakness and gastrointestinal complaints. Gastrointestinal symptoms have resolved at this time, still with some generalized weakness and will be evaluated by physical therapy. Zofran as needed for nausea. Encourage oral intake. Suspect nausea and vomiting may actually be secondary to profound constipation noted on patient history and on KUB. Fortunately, patient did have a bowel movement this afternoon after starting docusate and MiraLAX. Continue to monitor for formed bowel movements and consider enema/disimpaction if necessary. COMPOSITION ROOFER has evaluated him in the past and recommended a nectar thick liquid diet, however patient does not adhere to this. This was discussed with patient and decision made for permissive aspiration at this time. We will continue minced and moist diet at this time. (2) Weakness: Plan: reports diffuse, generalized weakness. Continue fall precautions, with physical and Occupational Therapy evaluations to aid in dispo planning. (3) Fecal retention: Plan: KUB with comment of large stool burden suggestive of fecal retention. Continue Dulcolax, Colace, MiraLAX. Enema as needed. Symptoms improving with improvemen t in constipation. Will need bowel regimen on discharge. (4) Hypomagnesemia: Plan: Magnesium 1.4 on admission, received IV magnesium sulfate, will repeat magnesium in the morning and replete as necessary. (5) COPD (chronic obstructive pulmonary disease): Plan: Patient denies cough, shortness of breath or wheeze. He has home oxygen but reports he rarely uses it. Brief episode of hypoxia in the ER. Presently saturating well on 0-2LNC. Goal oxygen 88 to 92% given history of COPD. Continue Trelegy or formulary equivalent, with albuterol as needed for cough/shortness of breath/wheezing. (6) Atrial flutter: Plan: History of atrial flutter, in normal sinus rhythm on admission and non- tachycardic since admission. Continue home metoprolol and diltiazem dosing. Patient has a Watchman device in place, not on chronic anticoagulation. (7) Seizure disorder: Plan: Patient denies recent seizure. Continue Keppra 1000 mg p.o. twice daily (8) Hypothyroidism (acquired): Plan: Chronic. Stable. Continue Synthroid 25 mcg p.o. daily (9) CAD (coronary artery disease): Plan: Chronic. Stable. Patient denies chest pain. No acute ischemic changes present on admission EKG Continue aspirin 81 mg p.o. daily Continue atorvastatin 40 mg p.o. nightly Continue Plavix 75 mg p.o. daily Continue metoprolol 25 mg p.o. every morning Continue lisinopril 20 mg p.o. nightly (10) Depression: Plan: Chronic. Stable. Continue sertraline 100 mg p.o. every morning (11) Dyslipidemia: Plan: Chronic. Stable. Continue atorvastatin (12) Type 2 diabetes mellitus: Plan: Well-controlled. Patient is on metformin 850 mg p.o. twice daily. patient tolerating therapy. Hold metformin while admitted in favor of sliding scale insulin, BSG's within goal range so far this admission. F/E/NHep-Lock, electrolyte repletion as above, heart healthy/carb consistent diet as tolerated Prophylaxis Lovenox daily [place] per discussion with patient by previous provider Disposition- medical/surgical floor Admission and Anticipated Discharge Date Admission Date: September 10, 2022 Subjective Patient without any acute events overnight. He does not endorse further nausea at this time. He reports that for the last 3 Saturdays he has had nausea and vomiting with breakfast of eggs and dhillon. However, he eats these foods on other days without nausea or emesis. He does note a longstanding history of constipation, having to strain to have a bowel movement. Does not take anything chronically for this. Denies other symptoms today. Review of Systems Review of Systems: All systems reviewed & are unremarkable except as noted in Subjective Physical Exam Constitutional: WD/WN, vitals as above Respiratory: normal respiratory effort, lungs clear to auscultation Cardiovascular: RRR, no murmur, no edema Gastrointestinal (Abdomen): normal bowel sounds, soft, nontender, no hepatosplenomegaly Skin: no rashes, warm and dry Psychiatric: A+Ox3, euthymic affect Results & Data Results & Data Vital Signs (Past 12 Hours) Vital Signs Temp Pulse Pulse Resp BP BP Pulse Ox 09/11/22 07:50 36.8 C 81 16 136/73 92 09/11/22 00:36 09/11/22 00:29 09/11/22 00:15 36.5 C 18 145/74 H 96 09/10/22 23:50 67 20 97 09/10/22 23:45 68 16 121/74 97 09/10/22 23:40 68 16 97 09/10/22 23:30 74 16 124/71 95 09/10/22 23:20 74 21 96 09/10/22 23:15 69 15 119/69 95 09/10/22 23:10 75 24 95 09/10/22 23:00 73 18 123/82 97 09/10/22 22:50 68 20 98 09/10/22 22:45 71 20 129/78 98 09/10/22 22:40 71 18 97 09/10/22 22:30 77 15 122/77 09/10/22 22:20 74 19 09/10/22 22:10 72 16 09/10/22 22:00 74 15 129/66 09/10/22 21:50 79 17 109/77 09/10/22 21:45 81 15 09/10/22 21:40 85 16 09/10/22 21:30 75 20 118/69 97 O2 Del Method O2 Flow Rate 09/11/22 07:50 Room Air 09/11/22 00:36 Nasal Cannula 2 09/11/22 00:29 Nasal Cannula 2 09/11/22 00:15 Nasal Cannula 2 09/10/22 23:50 09/10/22 23:45 09/10/22 23:40 09/10/22 23:30 09/10/22 23:20 09/10/22 23:15 09/10/22 23:10 09/10/22 23:00 Nasal Cannula 2 09/10/22 22:50 09/10/22 22:45 09/10/22 22:40 09/10/22 22:30 09/10/22 22:20 09/10/22 22:10 09/10/22 22:00 09/10/22 21:50 09/10/22 21:45 09/10/22 21:40 09/10/22 21:30 PG Care Time/CCT Total # of Minutes Spent Total Time Spent with Patient: Total time spent is greater than 50% in coordination of care (as documented) at patient's floor/unit and/or counseling patient: Coding Level of Care Code 96993 SUB INP/OBS CARE 3/50MIN Diagnoses Vomiting R11.2 Nausea presence: with nausea Vomiting type: unspecified Weakness R53.1 Fecal retention K59.00 Hypomagnesemia E83.42 COPD (chronic obstructive pulmonary disease) J44.9 Atrial flutter I48.92 Atrial flutter type: unspecified Seizure disorder G40.909 Hypothyroidism (acquired) E03.9 CAD (coronary artery disease) I25.10 Associated angina: without angina Coronary Disease-Associated Artery/Lesion type: [place] artery [place] vs. transplanted heart: [place] heart Depression F32.9 Depression Type: unspecified Dyslipidemia E78.5 Type 2 diabetes mellitus E11.9 Diabetes mellitus complication status: without complication Diabetes mellitus mcc insulin use: without retort kiln burner use (1) Vomiting Nausea presence: with nausea Vomiting type: unspecified Qualified Code(s): R11.2 - Nausea with vomiting, unspecified (6) Atrial flutter Atrial flutter type: unspecified Qualified Code(s): I48.92 - Unspecified atrial flutter (9) CAD (coronary artery disease) Associated angina: without angina Coronary Disease-Associated Artery/Lesion type: [place] artery [place] vs. transplanted heart: [place] heart Qualified Code(s): I25.10 - Atherosclerotic heart disease of [place] coronary artery without angina pectoris (10) Depression Depression Type: unspecified Qualified Code(s): F32.9 - Major depressive disorder, single episode, unspecified (12) Type 2 diabetes mellitus Diabetes mellitus complication status: without complication Diabetes mellitus retort kiln burner insulin use: without retort kiln burner use Qualified Code(s): E11.9 - Type 2 diabetes mellitus without complications
--- NOTE | 2022-09-11 10:30 | Electrocardiogram Report ---
Test Reason : Blood Pressure : / mmHG Vent. Rate : 088 BPM Atrial Rate : 088 BPM P-R Int : 142 ms QRS Dur : 074 ms QT Int : 376 ms P-R-T Axes : 042 014 021 degrees QTc Int : 454 ms Normal sinus rhythm Nonspecific ST and T wave abnormality Abnormal ECG When compared with ECG of 10-DEC-2021 20:07, Premature atrial complexes are no longer Present Confirmed by Santosh Landis ([id number]) on 09/11/2022 10:30:28 AM Referred By: REFERRED SELF Confirmed By:Santosh Landis
--- NOTE | 2022-09-11 10:31 | Electrocardiogram Report ---
Test Reason : Blood Pressure : / mmHG Vent. Rate : 082 BPM Atrial Rate : 082 BPM P-R Int : 128 ms QRS Dur : 078 ms QT Int : 372 ms P-R-T Axes : 060 014 009 degrees QTc Int : 434 ms Normal sinus rhythm Minimal voltage criteria for LVH, may be normal variant ( Sokolow-[place] ) Nonspecific ST and T wave abnormality Abnormal ECG When compared with ECG of 10-SEP-2022 19:07, (unconfirmed) No significant change was found Confirmed by Santosh Landis ([id number]) on 09/11/2022 10:31:08 AM Referred By: REFERRED SELF Confirmed By:Santosh Landis
[2022-09-11] MEDS: bisacodyL 10 MG SUPP PR SCH (10:39)
[2022-09-11] MEDS: lisinopril 20 MG TAB PO SCH (20:07)
[2022-09-11] MEDS: MONTELUKAST SODIUM 10 MG TABLET PO SCH (20:07)
[2022-09-11] MEDS: DOCUSATE SODIUM 100 MG CAP PO SCH (20:08)
[2022-09-11] MEDS: dilTIAZem HCL 240 MG CAPCR PO SCH (20:09)
[2022-09-11] MEDS: ATORVASTATIN 40 MG TAB PO SCH (20:09)
[2022-09-12] MEDS: LEVOTHYROXINE SODIUM 25 MCG TABLET PO SCH (05:54)
[2022-09-12 07:32] LABS: Hematocrit (blood only) 37.2 % (42.0-52.0); Hemoglobin 11.7 g/dl (14.0-18.0); Mean Corpuscular Hemoglobin 25.5 pg (25.0-34.0); Mean Corpuscular Hgb Conc 31.5 g/dL (32.0-36.0); Mean Platelet Volume 9.8 fL (9.4-12.4); Platelet Count 233 K/uL (130-400); RDW Coefficient of Variation 19.7 % (11.5-14.5); RDW Standard Deviation 57.1 fL (36.4-46.3); Red Blood Count 4.59 M/uL (4.70-6.10); White Blood Count 7.66 K/ul (4.8-10.8)
[2022-09-12 07:48] LABS: Calcium 8.5 mg/dl (8.6-10.3); Creatinine Clr Calc Pharmacy 64.7 ml/min; Est GFR (African American) 100.4 ml/min; Est GFR (Non-African American) 86.6 ml/min; Magnesium 1.6 mg/dl (1.7-2.4); Potassium 4.2 mmol/L (3.5-5.1)
[2022-09-12] MEDS: INSULIN ASPART PER UNIT CHARGE SC SCH ×4 (08:55→21:27)
[2022-09-12] MEDS: FLUTICASONE FUROATE 100MCG 14 PUFFS/INHALER INH SCH (08:56)
[2022-09-12] MEDS: UMECLIDINIUM/VILANTEROL 62.5/25MCG 7 PUFFS/INHALER INH SCH (08:56)
[2022-09-12] MEDS: SERTRALINE HCL 100 MG TABLET PO SCH (08:57)
[2022-09-12] MEDS: POLYETHYLENE (MIRALAX) 17 GM PACK PO SCH (08:57)
[2022-09-12] MEDS: CLOPIDOGREL BISULFATE 75 MG TAB PO SCH (08:57)
[2022-09-12] MEDS: ASPIRIN 81 MG ECTAB PO SCH (08:57)
[2022-09-12] MEDS: DOCUSATE SODIUM 100 MG CAP PO SCH ×2 (08:57→20:33)
[2022-09-12] MEDS: levETIRAcetam 500 MG TAB PO SCH ×2 (08:57→20:33)
[2022-09-12] MEDS: ENOXAPARIN INJ 40 MG/0.4 ML SYR SQ SCH (08:57)
[2022-09-12] MEDS: METOPROLOL TARTRATE 25 MG TAB PO SCH (08:57)
[2022-09-12] MEDS: bisacodyL 10 MG SUPP PR SCH (09:04)
[2022-09-12] MEDS: MAGNESIUM SULFATE / D5W 1 GM/100 ML BAG IV SCH ×2 (09:08→10:58)
--- NOTE | 2022-09-12 12:21 | Hospitalist Progress Note ---
Date of Service September 12, 2022 Assessment & Plan (1) Vomiting: Plan: 81-year-old male with history of COPD, iron deficiency anemia, atrial flutter, CAD, DM 2 admitted for weakness and gastrointestinal complaints. Gastrointestinal symptoms have resolved at this time, still with some generalized weakness and will be evaluated by physical therapy. Zofran as needed for nausea. Encourage oral intake. Suspect nausea and vomiting may actually be secondary to profound constipation noted on patient history and on KUB. Fortunately, patient did have a bowel movement 5/7 after starting docusate and MiraLAX. Continue to monitor for formed bowel movements and consider e nema/disimpaction if necessary. 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 This was discussed with patient and decision made for permissive aspiration at this time. We will continue minced and moist diet at this time. PT recommending SNF rehab on discharge, CM to assist. (2) Weakness: Plan: reports diffuse, generalized weakness. Continue fall precautions, with Physical and Occupational Therapy evaluations. (3) Fecal retention: Plan: KUB with comment of large stool burden suggestive of fecal retention. Continue Dulcolax, Colace, MiraLAX. Enema as needed. Symptoms improving with improvement in constipation. Will need bowel regimen on discharge. (4) Hypomagnesemia: Plan: Mg 1.6 today, received IV Magnesium Sulfate, repeat level tomorrow. (5) COPD (chronic obstructive pulmonary disease): Plan: Patient denies cough, shortness of breath or wheeze. He has home oxygen but reports he rarely uses it. Brief episode of hypoxia in the ER. Presently saturating well on 0-2LNC. Goal oxygen 88 to 92% given history of COPD. Continue Trelegy or formulary equivalent, with albuterol as needed for cough/shortness of breath/wheezing. (6) Atrial flutter: Plan: History of atrial flutter, in normal sinus rhythm on admission and non- tachycardic since admission. Continue home metoprolol and diltiazem dosing. Patient has a Watchman device in place, not on chronic anticoagulation. (7) Seizure disorder: Plan: Patient denies recent seizure. Continue Keppra 1000 mg p.o. twice daily (8) Hypothyroidism (acquired): Plan: Chronic. Stable. Continue Synthroid 25 mcg p.o. daily (9) CAD (coronary artery disease): Plan: Chronic. Stable. Patient denies chest pain. No acute ischemic changes present on admission EKG Continue aspirin 81 mg p.o. daily Continue atorvastatin 40 mg p.o. nightly Continue Plavix 75 mg p.o. daily Continue metoprolol 25 mg p.o. every morning Continue lisinopril 20 mg p.o. nightly (10) Depression: Plan: Chronic. Stable. Continue sertraline 100 mg p.o. every morning (11) Dyslipidemia: Plan: Chronic. Stable. Continue atorvastatin (12) Type 2 diabetes mellitus: Plan: Well-controlled. Patient is on metformin 850 mg p.o. twice daily. patient tolerating therapy. Hold metformin while admitted in favor of sliding scale insulin, BSG's within goal range so far this admission. F/E/NHep-Lock, electrolyte repletion as above, heart healthy/carb consistent diet as tolerated Prophylaxis Lovenox daily [place] per discussion with patient by previous provider Disposition- medical/surgical floor Admission and Anticipated Discharge Date Admission Date: September 10, 2022 Subjective Patient without acute events overnight, did have BM yesterday, more formed. No chest pain or SOB, abdominal pain. Review of Systems Review of Systems: All systems reviewed & are unremarkable except as noted in Subjective Physical Exam Constitutional: WD/WN, vitals as above Respiratory: normal respiratory effort, lungs clear to auscultation Cardiovascular: RRR, no murmur, no edema Gastrointestinal (Abdomen): normal bowel sounds, soft, nontender, no hepatosplenomegaly Skin: no rashes, warm and dry Psychiatric: A+Ox3, euthymic affect Results & Data Results & Data Vital Signs (Past 12 Hours) Vital Signs Temp Pulse Resp BP Pulse Ox O2 Del Method 09/12/22 08:00 Room Air 09/12/22 07:45 36.8 C 83 16 118/77 90 Room Air PG Care Time/CCT Total # of Minutes Spent Total Time Spent with Patient: Total time spent is greater than 50% in coordination of care (as documented) at patient's floor/unit and/or counseling patient: Coding Level of Care Code 62048 SUB INP/OBS CARE 2/35MIN Diagnoses Vomiting R11.2 Nausea presence: with nausea Vomiting type: unspecified Weakness R53.1 Fecal retention K59.00 Hypomagnesemia E83.42 COPD (chronic obstructive pulmonary disease) J44.9 Atrial flutter I48.92 Atrial flutter type: unspecified Seizure disorder G40.909 Hypothyroidism (acquired) E03.9 CAD (coronary artery disease) I25.10 Associated angina: without angina Coronary Disease-Associated Artery/Lesion type: [place] artery [place] vs. transplanted heart: [place] heart Depression F32.9 Depression Type: unspecified Dyslipidemia E78.5 Type 2 diabetes mellitus E11.9 Diabetes mellitus complication status: without complication Diabetes mellitus exterminator helper insulin use: without exterminator helper use (1) Vomiting Nausea presence: with nausea Vomiting type: unspecified Qualified Code(s): R11.2 - Nausea with vomiting, unspecified (6) Atrial flutter Atrial flutter type: unspecified Qualified Code(s): I48.92 - Unspecified atrial flutter (9) CAD (coronary artery disease) Associated angina: without angina Coronary Disease-Associated Artery/Lesion type: [place] artery [place] vs. transplanted heart: [place] heart Qualified Code(s): I25.10 - Atherosclerotic heart disease of [place] coronary artery without angina pectoris (10) Depression Depression Type: unspecified Qualified Code(s): F32.9 - Major depressive disorder, single episode, unspecified (12) Type 2 diabetes mellitus Diabetes mellitus complication status: without complication Diabetes mellitus exterminator helper insulin use: without exterminator helper use Qualified Code(s): E11.9 - Type 2 diabetes mellitus without complications
[2022-09-12] MEDS ORDERED: SOD PHOSPHATE/SOD BIPHOSPHATE ENEMA 132 ML BTL PR SCH (17:00)
[2022-09-12] MEDS: ATORVASTATIN 40 MG TAB PO SCH (20:33)
[2022-09-12] MEDS: lisinopril 20 MG TAB PO SCH (20:33)
[2022-09-12] MEDS: MONTELUKAST SODIUM 10 MG TABLET PO SCH (20:33)
[2022-09-12] MEDS: dilTIAZem HCL 240 MG CAPCR PO SCH (20:36)
[2022-09-13] MEDS: LEVOTHYROXINE SODIUM 25 MCG TABLET PO SCH (06:19)
[2022-09-13] MEDS: UMECLIDINIUM/VILANTEROL 62.5/25MCG 7 PUFFS/INHALER INH SCH (07:38)
[2022-09-13] MEDS: FLUTICASONE FUROATE 100MCG 14 PUFFS/INHALER INH SCH (07:39)
[2022-09-13] MEDS: ASPIRIN 81 MG ECTAB PO SCH (07:39)
[2022-09-13] MEDS: DOCUSATE SODIUM 100 MG CAP PO SCH (07:40)
[2022-09-13] MEDS: levETIRAcetam 500 MG TAB PO SCH (07:40)
[2022-09-13] MEDS: CLOPIDOGREL BISULFATE 75 MG TAB PO SCH (07:40)
[2022-09-13] MEDS: SERTRALINE HCL 100 MG TABLET PO SCH (07:41)
[2022-09-13] MEDS: ENOXAPARIN INJ 40 MG/0.4 ML SYR SQ SCH (07:41)
[2022-09-13] MEDS: METOPROLOL TARTRATE 25 MG TAB PO SCH (07:41)
[2022-09-13] MEDS: POLYETHYLENE (MIRALAX) 17 GM PACK PO SCH (07:46)
[2022-09-13 07:50] LABS: Hematocrit (blood only) 39.3 % (42.0-52.0); Hemoglobin 12.4 g/dl (14.0-18.0); Mean Corpuscular Hemoglobin 25.3 pg (25.0-34.0); Mean Corpuscular Hgb Conc 31.6 g/dL (32.0-36.0); Mean Platelet Volume 9.6 fL (9.4-12.4); Platelet Count 238 K/uL (130-400); RDW Coefficient of Variation 19.7 % (11.5-14.5); Red Blood Count 4.91 M/uL (4.70-6.10); White Blood Count 7.93 K/ul (4.8-10.8)
[2022-09-13 08:04] LABS: BUN Creatinine Ratio 16.9 (10-20); Calcium 8.8 mg/dl (8.6-10.3); Creatinine Clr Calc Pharmacy 67.2 ml/min; Magnesium 1.7 mg/dl (1.7-2.4)
[2022-09-13] MEDS: INSULIN ASPART PER UNIT CHARGE SC SCH ×2 (08:37→12:34)
[2022-09-13] MEDS: bisacodyL 10 MG SUPP PR SCH (11:07)
--- NOTE | 2022-09-13 13:01 | Discharge Summary ---
Discharge Summary Date of Service September 13, 2022 Admission HPI Per Admitting Provider Jose J Zurita is an 81-year-old male with multiple medical comorbidities to include coronary artery disease, COPD, depression, hypertension, seizure disorder and atrial flutter presenting from home with diffuse generalized weakness as well as nausea and vomiting that occurred earlier today. Patient had breakfast out with his son today as he does every Monday. Reports that the last 3 Saturdays he has developed nausea and vomiting after his breakfast. He typically orders over easy eggs, toast, dhillon, potatoes and coffee. He states he became nauseous after the meal and vomited in his son's car. Nonbloody/nonbilious. Additionally, patient has had generalized weakness with difficulty ambulating. His patient is requesting a PT/OT evaluation. Evaluation for possible placement needs. In the ER he is afebrile, hemodynamically stable, single episode of [id number]% on room air. Presently saturating well 96% on 2 L nasal cannula with no respiratory distress ER course Magnesium Zofran Admission Exam Per Admitting Provider General: patient resting comfortably, NAD, non-toxic in appearance, AA&O x 4 Skin: warm, dry, intact, no rashes or lesions HEENT: NC/AT, PERRL, EOMI, anicteric sclera, conjunctiva without injection, external ear normal to inspection and nontender, nares patent, moist mucus membranes, dentition intact, no oropharyngeal lesions, neck supple, trachea midline, no LAD, no thyromegaly, no JVD Heart: +S1/S2, regular, no m/r/g Lungs: equal air entry bilaterally, no rales/rhonchi/wheezes Abd: +BS, soft, NT/ND, no masses/organomegaly/ascites Ext: warm, 2+ pulses in UE/LE bilaterally, no clubbing/cyanosis or edema Neuro: nonfocal, patient AA&O x 4, speech intact, no facial droop, moving all extremities on command with equal strength 5/5 Principal Dx & Hospital Course #1 = Principal Diagnosis (1) Vomitin-year-old male with history of COPD, iron deficiency anemia, atrial flutter, CAD, DM 2 admitted for weakness and gastrointestinal complaints. Gastrointestinal symptoms have resolved at this time, still with some generalized weaknesswith plan for brief physical rehab stay. Encourage oral intake. Suspect nausea and vomiting was secondary to profound constipation noted on patient history and on KUB, which has improved and his nausea has resolved. Fortunately, patient did have a bowel movement 5/7 after starting docusate and MiraLAX. Continue to monitor for formed bowel movements and consider enema/disimpaction if necessary. Continue bowel regimen on discharge. INDUSTRIAL ROOFER has evaluated him in the past and recommended a nectar thick liquid diet, however patient does not adhere to this. This was discussed with patient and decision made for permissive aspiration at this time. Continue minced and moist diet. at this time. (2) Weakness: reports diffuse, generalized weakness. Continue fall precautions, with Physical and Occupational Therapy evaluations. (3) Fecal retention: KUB with comment of large stool burden suggestive of fecal retention. Continue Dulcolax, Colace, MiraLAX. Enema as needed. Symptoms improving with improvement in constipation. (4) Hypomagnesemia: Mg 1.6 today, received IV Magnesium Sulfate, repeat level tomorrow. (5) COPD (chronic obstructive pulmonary disease): Patient denies cough, shortness of breath or wheeze. He has home oxygen but reports he rarely uses it. Brief episode of hypoxia in the ER. Presently saturating well on 0-2LNC. Goal oxygen 88 to 92% given history of COPD. Continue Trelegy or formulary equivalent, with albuterol as needed for cough/shortness of breath/wheezing. (6) Atrial flutter: History of atrial flutter, in normal sinus rhythm on admission and non-tachyc ardic since admission. Continue home metoprolol and diltiazem dosing. Patient has a Watchman device in place, not on chronic anticoagulation. (7) Seizure disorder: Patient denies recent seizure. Continue Keppra 1000 mg p.o. twice daily (8) Hypothyroidism (acquired): Chronic. Stable. Continue Synthroid 25 mcg p.o. daily (9) CAD (coronary artery disease): Chronic. Stable. Patient denies chest pain. No acute ischemic changes present on admission EKG Continue aspirin 81 mg p.o. daily Continue atorvastatin 40 mg p.o. nightly Continue Plavix 75 mg p.o. daily Continue metoprolol 25 mg p.o. every morning Continue lisinopril 20 mg p.o. nightly (10) Depression: Chronic. Stable. Continue sertraline 100 mg p.o. every morning (11) Dyslipidemia: Chronic. Stable. Continue atorvastatin (12) Type 2 diabetes mellitus: Well-controlled. Patient is on metformin 850 mg p.o. twice daily. patient tolerating therapy. Resumed on discharge. Plan Dispo: acute rehab with ultimate plan for return home after strengthening Discharge Exam Constitutional WD/WN, vitals as above Psychiatric alert and oriented, pleasantly confused at times but brief, euthymic affect Updated Medication List Medication Instructions Recorded Confirmed Type calcium carbonate 600 mg-vitamin 2 tab PO HS 01/16/19 09/10/22 History D3 10 mcg (400 unit) tablet cyanocobalamin (vitamin B-12) 1,000 mcg PO QAM 11/07/19 09/10/22 History 1,000 mcg tablet (Vitamin B-12) fluticasone propionate 50 1 - 2 spray intranasal DAILY PRN 12/17/20 09/10/22 Rx mcg/actuation nasal Nasal Congestion #16 grams spray,suspension (Allergy Relief (fluticasone)) albuterol sulfate 90 mcg/actuation 2 puff inhalation Q4H PRN 02/25/21 09/10/22 Rx aerosol inhaler (Ventolin HFA) Shortness Of Breath Or Wheezing #8.5 grams aspirin 81 mg tablet,delayed 81 mg PO QAM 02/26/21 09/10/22 History release levetiracetam 500 mg tablet 1,000 mg PO BID 90 days #360 tabs 03/03/22 09/10/22 Rx (Keppra) sertraline 100 mg tablet 100 mg PO QAM #90 tabs 03/07/22 09/10/22 Rx fluticasone fur. 100 mcg-umeclid 1 inh inhalation QAM #180 ea 03/21/22 09/10/22 Rx 62.5 mcg-vilant 25 mcg inhalat.powder (Trelegy Ellipta) metformin 850 mg tablet 850 mg PO BID #180 tabs 03/24/22 09/10/22 Rx atorvastatin 40 mg tablet (Lipitor) 40 mg PO HS #90 tabs 06/06/22 09/10/22 Rx diltiazem HCl 240 mg 240 mg PO HS #90 caps 06/06/22 09/10/22 Rx capsule,extended release 24 hr (Cartia XT) levothyroxine 25 mcg tablet 25 mcg PO QAM #90 tabs 06/20/22 09/10/22 Rx (Synthroid) clopidogrel 75 mg tablet 75 mg PO DAILY #90 tabs 07/11/22 09/10/22 Rx guaifenesin 600 mg tablet, 1,200 mg PO Q12 PRN cough 07/11/22 09/10/22 History extended release 12 hr (Mucinex) metoprolol tartrate 25 mg tablet 25 mg PO QAM #90 tabs 07/18/22 09/10/22 Rx lisinopril 20 mg tablet 20 mg PO HS #90 tabs 08/01/22 09/10/22 Rx montelukast 10 mg tablet 10 mg PO HS #90 tabs 08/01/22 09/10/22 Rx bisacodyl 10 mg rectal suppository 10 mg [place] DAILY #0 ea 09/13/22 Rx docusate sodium 100 mg capsule 100 mg PO BID #0 caps 09/13/22 Rx polyethylene glycol 3350 17 gram 17 g PO DAILY #0 ea 09/13/22 Rx oral powder packet (Miralax) Hospital Stay Data Consultations 09/10/22 21:54 ED Decision to Admit Stat Pending Results Patient Have Any Pending Studies at Discharge: No Discharge Instructions Given to Patient (Per Discharging Provider) 81-year-old male with history of COPD, iron deficiency anemia, atrial flutter, CAD, DM 2 admitted for weakness and gastrointestinal complaints. Gastrointestinal symptoms have resolved at this time, still with some generalized weakness and will be evaluated by physical therapy. Encourage oral intake. Suspect nausea and vomiting may actually be secondary to profound constipation noted on patient history and on KUB. Fortunately, patient did have a bowel movement 5/7 after starting docusate and MiraLAX. Continue to monitor for formed bowel movements and consider enema/disimpaction if necessary. INDUSTRIAL ROOFER has evaluated him in the past and recommended a nectar thick liquid diet, however patient does not adhere to this. This was discussed with patient and decision made for permissive aspiration at this time. We will continue minced and moist diet at this time. Weakness: reports diffuse, generalized weakness. Continue fall precautions, with Physical and Occupational Therapy evaluations. Fecal retention: KUB with comment of large stool burden suggestive of fecal retention. Continue Dulcolax, Colace, MiraLAX. Enema as needed. Symptoms improving with improvement in constipation. Continue need bowel regimen on discharge. Hypomagnesemia: Resolved with IV supplementation. Recommend daily multivitamin and encourage oral intake. COPD (chronic obstructive pulmonary disease): Patient denies cough, shortness of breath or wheeze. He has home oxygen but reports he rarely uses it. Brief episode of hypoxia in the ER. Presently saturating well on 0-2LNC. Goal oxygen 88 to 92% given history of COPD. Continue Trelegy or formulary equivalent, with albuterol as needed for cough/shortness of breath/wheezing. AFlutter: History of atrial flutter, in normal sinus rhythm on admission and non- tachycardic since admission. Continue home metoprolol and diltiazem dosing. Patient has a Watchman device in place, not on chronic anticoagulation. Seizure disorder: Patient denies recent seizure. Continue Keppra 1000 mg p.o. twice daily Hypothyroidism (acquired): Chronic. Stable. Continue Synthroid 25 mcg p.o. daily CAD (coronary artery disease): Chronic. Stable. Patient denies chest pain. No acute ischemic changes present on admission EKG Continue aspirin 81 mg p.o. daily Continue atorvastatin 40 mg p.o. nightly Continue Plavix 75 mg p.o. daily Continue metoprolol 25 mg p.o. every morning Continue lisinopril 20 mg p.o. nightly Depression: Chronic. Stable. Continue sertraline 100 mg p.o. every morning Dyslipidemia: Chronic. Stable. Continue atorvastatin Type 2 diabetes mellitus: Well-controlled. Patient is on metformin 850 mg p.o. twice daily. patient tolerating therapy. Total Time Total Time Spent Total Time Spent (In Minutes): 35 min Coding Level of Care Code 09695 INP/OBS DISCH >30 MIN Diagnoses Vomiting R11.2 Nausea presence: with nausea Vomiting type: unspecified Weakness R53.1 Fecal retention K59.00 Hypomagnesemia E83.42 COPD (chronic obstructive pulmonary disease) J44.9 Atrial flutter I48.92 Atrial flutter type: unspecified Seizure disorder G40.909 Hypothyroidism (acquired) E03.9 CAD (coronary artery disease) I25.10 Associated angina: without angina Coronary Disease-Associated Artery/Lesion type: [place] artery [place] vs. 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
== END 2022-09-13 14:56 | DRG 392 ==
LOC: ED 18:51 → SUATTDRO 23:26 → 3N 23:26

== ENCOUNTER 2022-10-14 17:56 | Inpatient (IN) ==
[2022-10-14] MEDS ORDERED: ONDANSETRON INJ 2 MG/ML 2 ML VIAL IV STA (18:09)
[2022-10-14] MEDS ORDERED: SODIUM CHLORIDE 0.9% 500 ML IV SCH (18:15)
--- NOTE | 2022-10-14 18:27 | XRay Report ---
XR chest 1V portable CLINICAL HISTORY: weakness TECHNIQUE: Single frontal radiograph of the chest was obtained. Comparison: Comparison is made to chest radiograph of 10/25/2022 FINDINGS: No lines and tubes are seen. Calcified aortic knob is seen. Right lower lung airspace opacity is note d. No evidence of pleural effusion or pneumothorax. IMPRESSION: Right lower lung airspace opacity which may represent atelectasis, pneumonia, and/or aspiration. ACT 112: Negative or not required by law. Electronically signed by: Serafin Chaidez M.D. 10/14/2022 6:26 PM
--- NOTE | 2022-10-14 18:30 | Emergency Department Note ---
Impression & Plan Hypoxia, Fall, Vomiting, Weakness, Acute head trauma, Leukocytosis, Pneumonia, Hypomagnesemia ED Provider Note NAME: LUCIAN LOPEZ AGE: 82 SEX: M : 1940 ARRIVES VIA: Ambulance INFORMANT: [Patient][ems] ED PROVIDER(S): [Eze Benites MD] CHIEF COMPLAINT: Fall HISTORY OF PRESENT ILLNESS: The patient is an 82-year-old male who states that he tripped and fell and struck the right side of his head. The patient did reportedly vomit. The patient denies pain. He states that he vomited 3 times, even before he fell. He denies any headache or neck pain, there is no chest pain or abdominal pain. No extremity pain. He does take Eliquis and aspirin. PMHx/PSHx: See Below SOCIAL HISTORY: See Below. PHYSICAL EXAM: GENERAL: Patient is in no acute distress. HEENT: No acute trauma, normocephalic atraumatic, mucous membranes moist, no nasal congestion. Patient does have some dark [id number] material dried on his lips. NECK: No stridor, no adenopathy nontender cervical spine, trachea is midline. LUNGS: Clear to auscultation bilaterally when listening anterior, no wheeze, no rhonchi, breath sounds equal. Breath sounds diminished bilaterally. HEART: Normal rate, no obvious murmur, irregular rhythm. ABDOMEN: Soft, nontender, bowel sounds positive, no peritonitis. EXTREMITIES: No cyanosis or edema, full range of motion of all the joints without pain or difficulty, no signs for acute trauma. NEUROLOGIC: Awake and alert, moves all extremities, no facial droop or speech slur. SKIN: No rash, no jaundice, no diaphoresis. Rectal: Brown stool, heme-negative. DIFFERENTIAL DIAGNOSIS: GI bleeding, intracranial bleeding, skull fracture, C-spine injury, anemia, electrolyte imbalance, dehydration, infection, and others. EMERGENCY DEPARTMENT COURSE/PROCEDURES: Prior/Outside records reviewed: EMS notes. ECG per my interpretation: Indication was fall. The ECG shows atrial fibrillation with a rate of 112. There is some ST depression noted in the inferior and lateral leads. There is no ST elevation. No PVCs. The QTc is 439. Compared to an ECG from 10 Sep 2022, A-fib is now present. The ST and T wave changes are more pronounced. Continuous Cardiac Monitoring per my interpretation: An order was placed for continuous cardiac monitoring. The monitor shows a rate of 88 with atrial fibrillation. Critical Care Note: I have personally spent 48 minutes of critical care time in the direct management of this patient. This includes bedside care, interpretation of diagnostic studies, and testing, discussion with consultants, patient, and family members, and other required patient management activities. This 48 minutes is in excess of all separately billable procedures. MEDICAL DECISION MAKING: There is a moderate leukocytosis, this could be consistent with infection. A mild anemia was seen, this appears baseline looking back at previous testing. There was a normal platelet count. No coagulopathy. No renal failure. Lactic acid level was not elevated making severe sepsis less likely. Magnesium was low at 1.3. No concerning liver enzyme elevation. The patient appeared to be in a euthyroid state. ECG showed atrial fibrillation, no obvious ST elevation. Cardiac enzyme testing x1 was not consistent with acute cardiac injury. Chest film per my review showed what looks to be a left pleural effusion and a potential right base pneumonia. There was no pneumothorax or CHF. Urinalysis did not show infection. COVID test returned negative. Brain CT showed no acute bleed or mass effect. C-spine CT showed no acute fracture. The patient presents with a fall. He had been vomiting. He was found to be hypoxic here at times. He was given a DuoNeb. He was given IV saline, 500 cc. Received IV Zofran, IV Lopressor, IV cefepime and IV magnesium. The patient is in need of a hospital stay. He appears to have pneumonia. His magnesium is quite low. He is weak and fell today. I spoke with the patient, he is aware of his findings, I spoke with case management. The on-call hospitalist was consulted. Of note, given the potential coffee-ground appearing dried emesis on his lips, I did perform a rectal exam, this was heme-negative. DISPOSITION: Patient's presentation and findings warrant a hospital stay. Past Med/Surg History Medical History Abdominal aortic aneurysm (AAA), 30-34 mm diameter Anxiety Arteriosclerotic coronary artery disease Asthma Atrial flutter DX [address] CUELLAR IN [place] Benign prostatic hyperplasia with urinary obstruction CAD (coronary artery disease) Cerebral cavernoma Chronic pulmonary aspiration Depression Dyslipidemia Fever History of acute bronchitis with bronchospasm History of basal cell carcinoma (BCC) of skin (05/2020) History of sinusitis Hypertension Hypothyroidism (acquired) Hypoxia Mild cognitive impairment On home oxygen therapy AT NIGHT Osteoarthritis Osteoporosis Paroxysmal atrial fibrillation DX [address] CUELLAR IN [place] Pneumonia Seizure 01/29/19 - X2 ON THAT DAY AND WAS ADMITTED AND STARTED ON [place] AND NO SEIZURE SINCE Seizure disorder (01/2019) SOB (shortness of breath) TIA (transient ischemic attack) 2017 X 1 AND NONE SINCE Tremor HANDS Type 2 diabetes mellitus Vitamin B12 deficiency Vitamin D deficiency Surgical History H/O 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 History of anesthesia reaction states "stopped breathing during MOHS procedure at the [facility] [place] History of colonoscopy History of lung biopsy (03/27/19) Navigational Bronchoscopy with ICG Dye, Robotic Right Video Assisted Thoracoscopy with Right Lower Lobe Wedge Resection with Mediastinal Lymphadenectomy and Lymph Node Biopsy Dr. Lynn 03/27/19 Hx of cardiac cath 2017 -- HEART CATH WITH STENT [facility] WITH DR CUELLAR LAST SEEN 12/20/2018 Presence of Watchman left atrial appendage closure device (06/24/22) S/P Mohs surgery for basal cell carcinoma Family History Father Heart disease Other COPD (chronic obstructive pulmonary disease) Depression Family history non-contributory Denies family history of Ovarian cancer Prostate cancer Coronary heart disease Myocardial infarction Breast cancer Seizure Lung cancer Colorectal cancer Social History Smoking Status: Never smoker Tobacco Type: Cigarettes Age Started Using Tobacco: 18; Age Quit Using Tobacco: 33; packs per day: 2; Cigarettes Per Day: 20-40; Second Hand Exposure: No; Do You Dip or Chew Tobacco: Yes; Hx Alcohol Use: No Hx Substance Use: No Preferred Language: Mongolian Communication Ability: Effective Visual Impairment: No Limitations Hearing Ability: Use of Hearing Aid Kick Press Operator Required: No Beliefs That Will Affect Care: None marital status: Current Living Situation: Spouse current occupational status: retired 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[employer], 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[employer]) How many Children do You have: 3 Feels Safe at Home: Yes Childhood Exposure to Second-Hand Smoke: Yes Diet: regular Diet Comment: regular caffeine: No during the past year weight has: remained stable Dental Care, Regularly: No Physical Activity Frequency: Does not Exercise Seatbelt Use: never Sunscreen Use: Yes Assistive Devices: Cane, Oxygen - at Night and Walker Allergies Allergies Allergy/AdvReac Type Severity Reaction Status Date / Time pollen extracts Allergy Mild CONGESTION Verified 09/10/22 19:11 No Known Drug Allergies Allergy Unknown Unknown Unverified 09/10/22 19:11 Home Meds Home Medications Medication Instructions Recorded Confirmed calcium carbonate 600 mg-vitamin 2 tab PO HS 01/16/19 09/22/22 D3 10 mcg (400 unit) tablet cyanocobalamin (vitamin B-12) 1,000 mcg PO QAM 11/07/19 09/22/22 1,000 mcg tablet (Vitamin B-12) aspirin 81 mg tablet,delayed 81 mg PO QAM 02/26/21 09/22/22 release guaifenesin 600 mg tablet, 1,200 mg PO Q12 PRN cough 07/11/22 09/22/22 extended release 12 hr (Mucinex) Previous Rx's Medication Instructions Recorded albuterol sulfate 90 mcg/actuation 2 puff inhalation Q4H PRN 02/25/21 aerosol inhaler (Ventolin HFA) Shortness Of Breath Or Wheezing #8.5 grams levetiracetam 500 mg tablet 1,000 mg PO BID 90 days #360 tabs 03/03/22 (Keppra) sertraline 100 mg tablet 100 mg PO QAM #90 tabs 03/07/22 fluticasone fur. 100 mcg-umeclid 1 inh inhalation QAM #180 ea 03/21/22 62.5 mcg-vilant 25 mcg inhalat.powder (Trelegy Ellipta) metformin 850 mg tablet 850 mg PO BID #180 tabs 03/24/22 atorvastatin 40 mg tablet (Lipitor) 40 mg PO HS #90 tabs 06/06/22 diltiazem HCl 240 mg 240 mg PO HS #90 caps 06/06/22 capsule,extended release 24 hr (Cartia XT) clopidogrel 75 mg tablet 75 mg PO DAILY #90 tabs 07/11/22 metoprolol tartrate 25 mg tablet 25 mg PO QAM #90 tabs 07/18/22 lisinopril 20 mg tablet 20 mg PO HS #90 tabs 08/01/22 montelukast 10 mg tablet 10 mg PO HS #90 tabs 08/01/22 bisacodyl 10 mg rectal suppository 10 mg RI DAILY #0 ea 09/13/22 polyethylene glycol 3350 17 gram 17 g PO DAILY #0 ea 09/13/22 oral powder packet (Miralax) ondansetron HCl 4 mg tablet 4 mg PO Q6H PRN nausea and 09/21/22 vomiting #10 tabs pantoprazole 40 mg tablet,delayed 40 mg PO DAILY #30 tabs 09/21/22 release levothyroxine 50 mcg tablet 50 mcg PO DAILY #90 tabs 10/07/22 Results & Data (ED) Vital Signs Vital Signs - 24 hr 10/14/22 18:20 10/14/22 18:16 10/14/22 18:24 Temperature 36.8 C Temperature Source Oral Pulse Rate 88 111 H Pulse Rate from SpO2 Sensor Pulse Rhythm Regular Pulse Strength Normal Respiratory Rate 17 Respiratory Effort / Characteristics Non-Labored Spontaneous Respiratory Depth Normal Respiratory Pattern Regular Blood Pressure 141/79 H Blood Pressure Mean 99 Pulse Oximetry 93 93 Oxygen Delivery Method Room Air Room Air Sepsis Recent Fever Within 48 Hours No Sepsis New/Unexplained Change in Mental Status N/A Sepsis Action Taken by Nursing No Action Required 10/14/22 19:00 10/14/22 19:36 10/14/22 20:01 Temperature Temperature Source Pulse Rate 111 H 108 H 128 H Pulse Rate from SpO2 Sensor 108 H 153 H 131 H Pulse Rhythm Pulse Strength Respiratory Rate 23 20 22 Respiratory Effort / Characteristics Respiratory Depth Respiratory Pattern Blood Pressure 152/85 H 144/86 H 139/110 H Blood Pressure Mean 107 105 119 Pulse Oximetry 94 82 L 91 Oxygen Delivery Method Sepsis Recent Fever Within 48 Hours Sepsis New/Unexplained Change in Mental Status Sepsis Action Taken by Nursing 10/14/22 20:30 10/14/22 21:01 10/14/22 21:13 Temperature Temperature Source Pulse Rate 121 H 125 H Pulse Rate from SpO2 Sensor 121 H Pulse Rhythm Pulse Strength Respiratory Rate 22 18 Respiratory Effort / Characteristics Respiratory Depth Respiratory Pattern Blood Pressure 131/94 145/106 H Blood Pressure Mean 106 111 Pulse Oximetry 93 Oxygen Delivery Method Sepsis Recent Fever Within 48 Hours Sepsis New/Unexplained Change in Mental Status Sepsis Action Taken by Nursing 10/14/22 21:49 10/14/22 22:00 10/14/22 22:19 Temperature Temperature Source Pulse Rate 113 H 103 H 112 H Pulse Rate from SpO2 Sensor 113 H 99 H Pulse Rhythm Pulse Strength Respiratory Rate 12 20 Respiratory Effort / Characteristics Respiratory Depth Respiratory Pattern Blood Pressure 122/82 115/82 Blood Pressure Mean 95 93 Pulse Oximetry 94 95 Oxygen Delivery Method Sepsis Recent Fever Within 48 Hours Sepsis New/Unexplained Change in Mental Status Sepsis Action Taken by Correction Medications Current Medication List: was personally reviewed by me Laboratory Data Attestation: I reviewed the patient's lab results. 10/14/22 18:16 10/14/22 18:16 Lab Results 10/14/22 10/14/22 10/14/22 Range/Units 18:16 18:16 18:16 WBC 16.77 H (4.8-10.8) K/ul RBC 4.57 L (4.70-6.10) M/uL Hgb 12.0 L (14.0-18.0) g/dl Hct 37.4 L (42.0-52.0) % MCV 81.8 (80.0-100.0) fL MCH 26.3 (25.0-34.0) pg MCHC 32.1 (32.0-36.0) g/dL RDW Std Deviation 59.6 H (36.4-46.3) fL RDW Coeff of Ashu 20.3 H (11.5-14.5) % Plt Count 196 (130-400) K/uL MPV 10.1 (9.4-12.4) fL Immature Gran % (Auto) 0.3 % Neut % (Auto) 89.3 % Lymph % (Auto) 5.2 % Grand % (Auto) 4.4 % Eos % (Auto) 0.3 % Baso % (Auto) 0.5 % Neut # (Auto) 14.98 H (1.40-6.50) K/uL Lymph # (Auto) 0.88 L (1.2-3.4) K/uL Grand # (Auto) 0.73 H (0.11-0.59) K/uL Eos # (Auto) 0.05 (0-0.50) K/uL Baso # (Auto) 0.08 (0-0.2) K/uL Immature Gran # (Auto) 0.05 (0.01-0.20) K/uL RBC Morphology Unremarkable PT 11.3 (9.0-12.0) Seconds INR 1.0 (0.9-1.1) APTT 24.0 (21.0-31.0) Seconds PTT Ratio 0.9 Sodium 137 (136-145) mmol/L Potassium 3.9 (3.5-5.1) mmol/L Chloride 102 (98-107) mmol/L Carbon Dioxide 24 (21-32) mmol/L Anion Gap 11 (3-11) BUN 28 H (6-23) mg/dl Creatinine 0.86 (0.6-1.4) mg/dl Est Cr Clr Drug Dosing 57.5 ml/min Est GFR ( Amer) 94.3 ml/min Est GFR (Non-Af Amer) 81.3 ml/min BUN/Creatinine Ratio 32.6 H (10-20) Glucose 146 H (70-99(Fasting)) mg/dl Lactate (0.4-2.0) mmol/L Calcium 9.5 (8.6-10.3) mg/dl Magnesium 1.3 L (1.7-2.4) mg/dl Total Bilirubin 0.3 (0.2-1.0) mg/dl AST 16 (13-39) U/L ALT 12 (7-52) U/L Alkaline Phosphatase 81 (34-104) U/L Troponin I High Sens 4.9 (0-20) pg/ml Total Protein 7.9 (6.0-8.3) gm/dl Albumin 4.4 (3.4-5.0) gm/dl Globulin 3.5 (2.5-4.0) gm/dl Albumin/Globulin Ratio 1.3 (0.9-2) TSH (0.300-4.500) uIu/ml Urine Color Urine Appearance (Clear) Urine pH (4.5-7.5) Ur Specific Preston (1.000-1.030) Urine Protein (Negative) Urine Glucose (UA) (Negative) Urine Ketones (Negative) Urine Blood (Negative) Urine Nitrite (Negative) Urine Bilirubin (Negative) Urine Urobilinogen (Negative) Ur Leukocyte Esterase (Negative) Urine WBC (Auto) (0-5) /hpf Urine RBC (Auto) (0-4) /hpf U Hyaline Cast (Auto) (0-5) /lpf U Epithel Cells (Auto) (0-5) /lpf Urine Bacteria (Auto) (Negative) SARS-CoV-2, RNA, NAAT (NEGATIVE) 10/14/22 10/14/22 10/14/22 Range/Units 18:16 18:38 19:09 WBC (4.8-10.8) K/ul RBC (4.70-6.10) M/uL Hgb (14.0-18.0) g/dl Hct (42.0-52.0) % MCV (80.0-100.0) fL MCH (25.0-34.0) pg MCHC (32.0-36.0) g/dL RDW Std Deviation (36.4-46.3) fL RDW Coeff of Ashu (11.5-14.5) % Plt Count (130-400) K/uL MPV (9.4-12.4) fL Immature Gran % (Auto) % Neut % (Auto) % Lymph % (Auto) % Grand % (Auto) % Eos % (Auto) % Baso % (Auto) % Neut # (Auto) (1.40-6.50) K/uL Lymph # (Auto) (1.2-3.4) K/uL Grand # (Auto) (0.11-0.59) K/uL Eos # (Auto) (0-0.50) K/uL Baso # (Auto) (0-0.2) K/uL Immature Gran # (Auto) (0.01-0.20) K/uL RBC Morphology PT (9.0-12.0) Seconds INR (0.9-1.1) APTT (21.0-31.0) Seconds PTT Ratio Sodium (136-145) mmol/L Potassium (3.5-5.1) mmol/L Chloride (98-107) mmol/L Carbon Dioxide (21-32) mmol/L Anion Gap (3-11) BUN (6-23) mg/dl Creatinine (0.6-1.4) mg/dl Est Cr Clr Drug Dosing ml/min Est GFR ( Amer) ml/min Est GFR (Non-Af Amer) ml/min BUN/Creatinine Ratio (10-20) Glucose (70-99(Fasting)) mg/dl Lactate 1.6 (0.4-2.0) mmol/L Calcium (8.6-10.3) mg/dl Magnesium (1.7-2.4) mg/dl Total Bilirubin (0.2-1.0) mg/dl AST (13-39) U/L ALT (7-52) U/L Alkaline Phosphatase (34-104) U/L Troponin I High Sens (0-20) pg/ml Total Protein (6.0-8.3) gm/dl Albumin (3.4-5.0) gm/dl Globulin (2.5-4.0) gm/dl Albumin/Globulin Ratio (0.9-2) TSH 2.802 (0.300-4.500) uIu/ml Urine Color Urine Appearance (Clear) Urine pH (4.5-7.5) Ur Specific Preston (1.000-1.030) Urine Protein (Negative) Urine Glucose (UA) (Negative) Urine Ketones (Negative) Urine Blood (Negative) Urine Nitrite (Negative) Urine Bilirubin (Negative) Urine Urobilinogen (Negative) Ur Leukocyte Esterase (Negative) Urine WBC (Auto) (0-5) /hpf Urine RBC (Auto) (0-4) /hpf U Hyaline Cast (Auto) (0-5) /lpf U Epithel Cells (Auto) (0-5) /lpf Urine Bacteria (Auto) (Negative) SARS-CoV-2, RNA, NAAT NEGATIVE (NEGATIVE) 10/14/22 Range/Units 19:40 WBC (4.8-10.8) K/ul RBC (4.70-6.10) M/uL Hgb (14.0-18.0) g/dl Hct (42.0-52.0) % MCV (80.0-100.0) fL MCH (25.0-34.0) pg MCHC (32.0-36.0) g/dL RDW Std Deviation (36.4-46.3) fL RDW Coeff of Ashu (11.5-14.5) % Plt Count (130-400) K/uL MPV (9.4-12.4) fL Immature Gran % (Auto) % Neut % (Auto) % Lymph % (Auto) % Grand % (Auto) % Eos % (Auto) % Baso % (Auto) % Neut # (Auto) (1.40-6.50) K/uL Lymph # (Auto) (1.2-3.4) K/uL Grand # (Auto) (0.11-0.59) K/uL Eos # (Auto) (0-0.50) K/uL Baso # (Auto) (0-0.2) K/uL Immature Gran # (Auto) (0.01-0.20) K/uL RBC Morphology PT (9.0-12.0) Seconds INR (0.9-1.1) APTT (21.0-31.0) Seconds PTT Ratio Sodium (136-145) mmol/L Potassium (3.5-5.1) mmol/L Chloride (98-107) mmol/L Carbon Dioxide (21-32) mmol/L Anion Gap (3-11) BUN (6-23) mg/dl Creatinine (0.6-1.4) mg/dl Est Cr Clr Drug Dosing ml/min Est GFR ( Amer) ml/min Est GFR (Non-Af Amer) ml/min BUN/Creatinine Ratio (10-20) Glucose (70-99(Fasting)) mg/dl Lactate (0.4-2.0) mmol/L Calcium (8.6-10.3) mg/dl Magnesium (1.7-2.4) mg/dl Total Bilirubin (0.2-1.0) mg/dl AST (13-39) U/L ALT (7-52) U/L Alkaline Phosphatase (34-104) U/L Troponin I High Sens (0-20) pg/ml Total Protein (6.0-8.3) gm/dl Albumin (3.4-5.0) gm/dl Globulin (2.5-4.0) gm/dl Albumin/Globulin Ratio (0.9-2) TSH (0.300-4.500) uIu/ml Urine Color Yellow Urine Appearance Clear (Clear) Urine pH 5.0 (4.5-7.5) Ur Specific Preston 1.019 (1.000-1.030) Urine Protein 1+ H (Negative) Urine Glucose (UA) Negative (Negative) Urine Ketones Negative (Negative) Urine Blood Trace H (Negative) Urine Nitrite Negative (Negative) Urine Bilirubin Negative (Negative) Urine Urobilinogen Negative (Negative) Ur Leukocyte Esterase Negative (Negative) Urine WBC (Auto) 1-5 (0-5) /hpf Urine RBC (Auto) 0-4 (0-4) /hpf U Hyaline Cast (Auto) 0 (0-5) /lpf U Epithel Cells (Auto) 5-10 H (0-5) /lpf Urine Bacteria (Auto) Negative (Negative) SARS-CoV-2, RNA, NAAT (NEGATIVE) Administered Medications Discontinued Medications Albuterol (Albut/Ipratrop 3mg/0.5mg Neb 3 Ml Vial) 3 ml NEB NOW STA; Protocol Stop: 10/14/22 20:00 Last Admin: 10/14/22 20:11 Dose: 3 ml Documented By: EDELMIRA Sodium Chloride (Nss) 500 mls @ 999 mls/hr IV .Q31M PATO Stop: 10/14/22 18:45 Last Infusion: 10/14/22 19:44 Dose: 0 mls/hr Documented By: Admin: 10/14/22 18:43 Dose: 999 mls/hr Documented By: YOGI Cefepime HCl (Maxipime) 2,000 mg in 20 mls @ 5 mls/min IV NOW STA; Protocol Stop: 10/14/22 19:10 Last Admin: 10/14/22 19:37 Dose: 5 mls/min Documented By: EDELMIRA Magnesium Sulfate/Dextrose (Magnesium Sulfate / D5w) 1 gm in 100 mls @ 100 mls/hr IV Q1H PATO Stop: 10/14/22 21:24 Last Infusion: 10/14/22 22:18 Dose: 0 mls/hr Documented By: Admin: 10/14/22 20:46 Dose: 100 mls/hr Documented By: Infusion: 10/14/22 20:37 Dose: 100 mls/hr Documented By: Admin: 10/14/22 19:37 Dose: 100 mls/hr Documented By: EDELMIRA Metoprolol Tartrate (Metoprolol Tartrate 1 Mg/Ml Vial) 2.5 mg IV NOW STA Stop: 10/14/22 20:02 Last Admin: 10/14/22 20:11 Dose: 2.5 mg Documented By: EDELMIRA Ondansetron HCl (Ondansetron Inj 2 Mg/Ml 2 Ml Vial) 4 mg IV NOW STA Stop: 10/14/22 18:10 Last Admin: 10/14/22 18:43 Dose: 4 mg Documented By: [facility] Imaging Data Radiologist's Impression: Cervical Spine CT 10/14/22 18:09 CT cervical spine wo con CLINICAL HISTORY: fall TECHNIQUE: Multidetector row helical CT of the cervical spine was performed without administration of intravenous contrast. Coronal and sagittal reformations were obtained. Automated dose lowering techniques and/or adjustment according to patient size were utilized for this exam. Comparison: None available at the time of this dictation. FINDINGS: No acute fractures or subluxations are identified. Degenerative changes are seen in the visualized spine. A bone island is in C3. The alignment is normal. Subcentimeter thyroid nodules are seen which do not require follow-up by ACR criteria. IMPRESSION: Degenerative changes without evidence of acute bony injury. ACT 112: Negative or not required by law. Electronically signed by: Serafin Chaidez M.D. 10/14/2022 6:41 PM Chest X-Ray 10/14/22 18:09 XR chest 1V portable CLINICAL HISTORY: weakness TECHNIQUE: Single frontal radiograph of the chest was obtained. Comparison: Comparison is made to chest radiograph of 10/25/2022 FINDINGS: No lines and tubes are seen. Calcified aortic knob is seen. Right lower lung airspace opacity is noted. No evidence of pleural effusion or pneumothorax. IMPRESSION: Right lower lung airspace opacity which may represent atelectasis, pneumonia, and/or aspiration. ACT 112: Negative or not required by law. Electronically signed by: Serafin Chaidez M.D. 10/14/2022 6:[address] 10/14/22 18:09 CT head/brain wo con CLINICAL HISTORY: fall, hit head Technique: Contiguous axial CT images of the head were acquired from the base of the skull to the vertex without intravenous contrast administration. Images were viewed in brain, subdural and bone windows. Automated dose lowering techniques and/or adjustment according to patient size were utilized for this exam. Comparison: Comparison is made to CT head 12/10/2021 Findings: Areas of decreased attenuation are present in the periventricular and subcortic al white matter bilaterally consistent with small vessel ischemic disease. Generalized cerebral atrophy with commensurate enlargement of the ventricles, sulci, and cisterns is also present. There is no acute intracranial hemorrhage or evidence of acute territorial infarction. No shift of the midline structures, mass effect, or extra-axial abnormalities are shown. Atherosclerotic calcifications are present in the intracranial segments of the internal carotid arteries. A lacunar infarct is in the left lentiform nucleus. Imaged portions of the paranasal sinuses and mastoid air cells are clear. The orbits appear normal. There are no acute fractures of the calvaria or scalp swelling. Impression: No acute intracranial hemorrhage, no evidence of acute territorial infarction or other acute intracranial disease process. ACT 112: Negative or not required by law. Electronically signed by: Serafin Chaidez M.D. 10/14/2022 6:40 PM Discharge Plan Visit Data Chief Complaint: Fall Stated Complaint: FALL, HIT HEAD ED Provider: Eze Benites Discharge Problem: Hypoxia, Fall, Vomiting, Weakness, Acute head trauma, Leukocytosis, Pneumonia, Hypomagnesemia Patient Disposition: Admitted As Inpatient Condition: Fair Forms Stand Alone Forms: My [facility] Prescriptions Prescriptions: No Action levetiracetam [Keppra] 500 mg tablet 1,000 mg PO BID 90 Days Qty: 360 3RF sertraline 100 mg tablet 100 mg PO QAM Qty: 90 2RF metformin 850 mg tablet 850 mg PO BID Qty: 180 1RF diltiazem HCl [Cartia XT] 240 mg capsule,extended release 24hr 240 mg PO HS Qty: 90 3RF atorvastatin [Lipitor] 40 mg tablet 40 mg PO HS Qty: 90 3RF metoprolol tartrate 25 mg tablet 25 mg PO QAM Qty: 90 1RF lisinopril 20 mg tablet 20 mg PO HS Qty: 90 1RF montelukast 10 mg tablet 10 mg PO HS Qty: 90 1RF ondansetron HCl 4 mg tablet 4 mg PO Q6H PRN (Reason: nausea and vomiting) Qty: 10 0RF pantoprazole 40 mg tablet,delayed release (DR/EC) 40 mg PO DAILY Qty: 30 2RF levothyroxine 50 mcg tablet 50 mcg PO DAILY Qty: 90 3RF calcium carbonate-vitamin D3 600 mg(1,500mg) -400 unit tablet 2 tab PO HS albuterol sulfate [Ventolin HFA] 90 mcg/actuation HFA aerosol inhaler 2 puff INH Q4H PRN (Reason: Shortness Of Breath Or Wheezing) Qty: 8.5 3RF guaifenesin [Mucinex] 600 mg tablet extended release 12hr 1,200 mg PO Q12 PRN (Reason: cough) clopidogrel 75 mg tablet 75 mg PO DAILY Qty: 90 1RF Trelegy Ellipta 100-62.5-25 mcg blister with device 1 inh INHALATION QAM Qty: 180 1RF cyanocobalamin (vitamin B-12) [Vitamin B-12] 1,000 mcg tablet 1,000 mcg PO QAM bisacodyl 10 mg Suppository 10 mg RI DAILY Qty: 0 0RF polyethylene glycol 3350 [Miralax] 17 gram Powder In Packet 17 g PO DAILY Qty: 0 0RF aspirin 81 mg Tablet,Delayed Release (Dr/Ec) 81 mg PO QAM Referrals Referrals: Lorna Tucker DO [Physician] -
[2022-10-14 18:34] LABS: Basophils # (auto) 0.08 K/uL (0-0.2); Basophils % (auto) 0.5 %; Eosinophils # (auto) 0.05 K/uL (0-0.50); Eosinophils % (auto) 0.3 %; Hematocrit (blood only) 37.4 % (42.0-52.0); Immature Granulocytes # (auto) 0.05 K/uL (0.01-0.20); Immature Granulocytes % (auto) 0.3 %; Lymphocytes # (auto) 0.88 K/uL (1.2-3.4); Lymphocytes % (auto) 5.2 %; Mean Corpuscular Hemoglobin 26.3 pg (25.0-34.0); Mean Corpuscular Hgb Conc 32.1 g/dL (32.0-36.0); Mean Corpuscular Volume 81.8 fL (80.0-100.0); Mean Platelet Volume 10.1 fL (9.4-12.4); Monocytes # (auto) 0.73 K/uL (0.11-0.59); Monocytes % (auto) 4.4 %; Neutrophils # (auto) 14.98 K/uL (1.40-6.50); Neutrophils % (auto) 89.3 %; Platelet Count 196 K/uL (130-400); RDW Coefficient of Variation 20.3 % (11.5-14.5); RDW Standard Deviation 59.6 fL (36.4-46.3); Red Blood Count 4.57 M/uL (4.70-6.10); White Blood Count 16.77 K/ul (4.8-10.8)
--- NOTE | 2022-10-14 18:41 | CT Scan Report ---
CT head/brain wo con CLINICAL HISTORY: fall, hit head Technique: Contiguous axial CT images of the head were acquired from the base of the skull to the ethan ana maria without intravenous contrast administration. Images were viewed in brain, subdural and bone [facility] . Automated dose lowering techniques and/or adjustment according to patient size were utilized for this exam. Comparison: Comparison is made to CT head 12/10/2021 Findings: Areas of decreased attenuation are present in the periventricular and subcortical white matter bilate rally consistent with small vessel ischemic disease. Generalized cerebral atrophy with commensurate e nlargement of the ventricles, sulci, and cisterns is also present. There is no acute intracranial hem orrhage or evidence of acute territorial infarction. No shift of the midline structures, mass effect, or extra-axial abnormalities are shown. Atherosclerotic calcifications are present in the intracran ial segments of the internal carotid arteries. A lacunar infarct is in the left lentiform nucleus. Imaged portions of the paranasal sinuses and mastoid air cells are clear. The orbits appear normal. There are no acute fractures of the calvaria or scalp swelling. Impression: No acute intracranial hemorrhage, no evidence of acute territorial infarction or other acute intracra nial disease process. ACT 112: Negative or not required by law. Electronically signed by: Serafin Chaidez M.D. 10/14/2022 6:40 PM
--- NOTE | 2022-10-14 18:43 | CT Scan Report ---
CT cervical spine wo con CLINICAL HISTORY: fall TECHNIQUE: Multidetector row helical CT of the cervical spine was performed without administration of intravenous contrast. Coronal and sagittal reformations were obtained. Automated dose lowering techn iques and/or adjustment according to patient size were utilized for this exam. Comparison: None available at the time of this dictation. FINDINGS: No acute fractures or subluxations are identified. Degenerative changes are seen in the visualized sp ine. A bone island is in C3. The alignment is normal. Subcentimeter thyroid nodules are seen which do not require follow-up by ACR criteria. IMPRESSION: Degenerative changes without evidence of acute bony injury. ACT 112: Negative or not required by law. Electronically signed by: Serafin Chaidez M.D. 10/14/2022 6:41 PM
[2022-10-14 18:51] LABS: Albumin Globulin Ratio 1.3 (0.9-2); Albumin Level 4.4 gm/dl (3.4-5.0); BUN Creatinine Ratio 32.6 (10-20); Bilirubin,Total 0.3 mg/dl (0.2-1.0); Calcium 9.5 mg/dl (8.6-10.3); Creatinine Clr Calc Pharmacy 57.5 ml/min; Est GFR (African American) 94.3 ml/min; Est GFR (Non-African American) 81.3 ml/min; Globulin 3.5 gm/dl (2.5-4.0); Magnesium 1.3 mg/dl (1.7-2.4); Potassium 3.9 mmol/L (3.5-5.1); Total Protein 7.9 gm/dl (6.0-8.3)
[2022-10-14 18:56] LABS: RBC Morphology Unremarkable; Troponin I High Sensitivity 4.9 pg/ml (0-20)
[2022-10-14 19:00] LABS: Partial Thromboplastin Ratio 0.9; Prothrombin Time 11.3 Seconds (9.0-12.0)
[2022-10-14] MEDS ORDERED: CEFEPIME 2,000 MG/20 ML VIAL IV STA (19:07)
[2022-10-14] MEDS: MAGNESIUM SULFATE / D5W 1 GM/100 ML BAG IV SCH ×2 (19:37→20:46)
[2022-10-14] MEDS ORDERED: ALBUT/IPRATROP 3MG/0.5MG NEB 3 ML VIAL NEB STA (19:59)
[2022-10-14 20:00] LABS: Appearance Urine Clear (Clear); Bacteria Urine Automated Negative (Negative); Bilirubin Urine Negative (Negative); Blood Urine Trace (Negative); Cast Urine Automated 0 /lpf (0-5); Color Urine Yellow; Glucose Urine UA Negative (Negative); Ketones Urine Negative (Negative); Leukocyte Esterase Urine Negative (Negative); Nitrite Urine Negative (Negative); Protein Urine 1+ (Negative); RBC Urine Automated 0-4 /hpf (0-4); Specific Gravity Urine 1.019 (1.000-1.030); Urobilinogen Urine Negative (Negative)
[2022-10-14] MEDS ORDERED: METOPROLOL TARTRATE 1 MG/ML VIAL IV STA (20:01)
--- NOTE | 2022-10-14 20:15 | History & Physical Report ---
Date of Service October 14, 2022 Assessment & Plan (1) Fall: Plan: 82 year old male w/ PmHx COPD, chronic respiratory failure w/ hypoxia, paroxysmal atrial fibrillation w/ watchman 06/2022, T2DM, seizure disorder w/ last seizure 01/2019, hypothyroidism, CAD, vit D and B12 deficiency, AAA 30-34mm diameter, dyslipidemia, depression, HTN, mild pkmce2hxle impairment, osteoporosis, cerebral cavernoma admitted for fall and possible pneumonia. Fall: -Recently hospitalized in September followed by [facility]. Had good progress until return home. -Fall today while using walker in kitchen w/o LOC. -CT head and neck w/o acute abnormalities. -Leukocytosis w/ WBC 16. Atrial fibrillation on EKG w/ magnesium of 1.3 and potassium of 3.9. -Progressive weakness at home most likely due to heavy tobacco chew use decreasing intake, per . -Fall likely secondary to weakness from progressive weakness at home and possibly from infection. -Will treat pneumonia as below. -Fall precautions. -PT/OT eval. Hypoxia/COPD: -History of COPD on Trelegy at home as well as night time O2, although he is not as compliant with this at home per . -Patient hypoxic to 82% in the ED. -CXR w/ evidence for LLL infiltrate possibly PNA vs aspiration vs atelectasis. -Given decline and leukocytosis will treat as PNA w/ COPD exacerbation. -Given 2g Cefepime in the ED as well as albuterol neb. -Will treat as CAP and obtain nasal MRSA. However if patient unable to swallow food/drink may suspect aspiration. -Will treat with CTX 1g daily and 500mg PO Azithromycin. -Ordered albuterol neb, pulmicort, formoterol, flutter valve, incentive spirometry. -Trend AM CBC. Continuous O2 monitoring. Paroxysmal atrial fibrillation: -EKG with evidence of atrial fibrillation. -Was on Eliquis however had watchman procedure in June. -Given Metoprolol IV 2.5mg in ED. -Mg 1.3 in the ED, given 2g repletion Mg sulfate. -Continue home metoprolol 25mg qAM. -Monitor electrolytes. Keep potassium >4.0, Mg >2.0 -Admit to telemetry. Vomiting: -Unclear source of vomiting, possibly infectious vs chew tobacco. -Will order zofran 4mg PRN IV. -Replete fluid with mIVF. -Continue to monitor electrolytes. Tobacco Use disorder: -Patient former smoker, history of COPD. Now uses chew. -Per , uses as much as he can when he is home and this has led to him not e ating well and decreased energy as a result. -Patient would benefit from discussion on dangers of tobacco use. -Added nicotine patch to help curb cravings. Seizure disorder: -continue home keppra. Depression/Anxiety: -chronic, stable. Continue home sertraline. DLD: -Continue home atorvastatin. T2DM: -Insulin sliding scale while inpatient. hold all home medications. F/E/N/GI: Carb consistent, moist and minced - will see if any difficulties with food. DVT prophylaxis: Watchman in place, continue home aspirin and plavix - no signs of bleed on head CT. Code status: Full code. Dispo: Med/tele. PT/OT eval. (2) Vomiting: (3) Tobacco use disorder: (4) Anxiety: (5) Paroxysmal atrial fibrillation: (6) Presence of Watchman left atrial appendage closure device: (7) Seizure disorder: (8) Type 2 diabetes mellitus: (9) Vitamin B12 deficiency: (10) On home oxygen therapy: (11) COPD (chronic obstructive pulmonary disease): (12) Chronic respiratory failure with hypoxia: (13) Chewing tobacco use: (14) Abdominal aortic aneurysm (AAA), 30-34 mm diameter: History of Present Illness Chief Complaint: Fall Primary Care Provider: [facility] PCP Jose J is an 82 y/o M w/ PmHx COPD, chronic respiratory failure w/ hypoxia, paroxysmal atrial fibrillation w/ watchman 06/2022, T2DM, seizure disorder w/ last seizure 01/2019, hypothyroidism, CAD, vit D and B12 deficiency, AAA 30-34mm diameter, dyslipidemia, depression, HTN, mild cognitive impairment, osteoporosis, cerebral cavernoma coming in for fall via EMS. Spoke with patient's on the phone as patient has dementia and did not wish to speak at length with me at bedside due to wanting to sleep. He was in the hospital in the beginning of September with UTI and leukocytosis, after went to [facility]. When he came home he sits around with snuff in mouth all day long - without the snuff he would eat better and walk better. Went 2 weeks without snuff, after went back on the snuff went downhill again right back to where he was. He vomited all snuff and mucous like a repeat May symptoms. His didn't get back till later in the day and he tried to get off his chair and was weak on the floor. Worked up to getting up, walked to kitchen with walker and fell. He had been vomiting before the fall even which his attributes to his snuff intake. No signs of fever, chills, shortness of breath or chest pain from the patient prior to coming in. He is no longer taking Eliquis, has a watchman placed back in June. In the ED WBC 16.77, Hgb 12.0, Mg 1.3. U/A negative. Head CT negative for acute abnormality or bleed. CT neck w/o any acute abnormality. CXR w/ RLL airspace opacity possibly PNA or aspiration. He was given 1L NSS, 2.5mg metoprolol tartrate, 2g Mg sulfate, 2g Cefepime and albuterol neb. Allergies Allergy/AdvReac Type Severity Reaction Status Date / Time pollen extracts Allergy Mild CONGESTION Verified 09/10/22 19:11 No Known Drug Allergies Allergy Unknown Unknown Unverified 09/10/22 19:11 Home Medications Medication Instructions Recorded Confirmed Type calcium carbonate 600 mg-vitamin 2 tab PO HS 01/16/19 09/22/22 History D3 10 mcg (400 unit) tablet cyanocobalamin (vitamin B-12) 1,000 mcg PO QAM 11/07/19 09/22/22 History 1,000 mcg tablet (Vitamin B-12) albuterol sulfate 90 mcg/actuation 2 puff inhalation Q4H PRN 02/25/21 09/22/22 Rx aerosol inhaler (Ventolin HFA) Shortness Of Breath Or Wheezing #8.5 grams aspirin 81 mg tablet,delayed 81 mg PO QAM 02/26/21 09/22/22 History release levetiracetam 500 mg tablet 1,000 mg PO BID 90 days #360 tabs 03/03/22 09/22/22 Rx (Keppra) sertraline 100 mg tablet 100 mg PO QAM #90 tabs 03/07/22 09/22/22 Rx fluticasone fur. 100 mcg-umeclid 1 inh inhalation QAM #180 ea 03/21/22 09/22/22 Rx 62.5 mcg-vilant 25 mcg inhalat.powder (Trelegy Ellipta) metformin 850 mg tablet 850 mg PO BID #180 tabs 03/24/22 09/22/22 Rx atorvastatin 40 mg tablet (Lipitor) 40 mg PO HS #90 tabs 06/06/22 09/22/22 Rx diltiazem HCl 240 mg 240 mg PO HS #90 caps 06/06/22 09/22/22 Rx capsule,extended release 24 hr (Cartia XT) clopidogrel 75 mg tablet 75 mg PO DAILY #90 tabs 07/11/22 09/22/22 Rx guaifenesin 600 mg tablet, 1,200 mg PO Q12 PRN cough 07/11/22 09/22/22 History extended release 12 hr (Mucinex) metoprolol tartrate 25 mg tablet 25 mg PO QAM #90 tabs 07/18/22 09/22/22 Rx lisinopril 20 mg tablet 20 mg PO HS #90 tabs 08/01/22 09/22/22 Rx montelukast 10 mg tablet 10 mg PO HS #90 tabs 08/01/22 09/22/22 Rx bisacodyl 10 mg rectal suppository 10 mg SC DAILY #0 ea 09/13/22 09/22/22 Rx polyethylene glycol 3350 17 gram 17 g PO DAILY #0 ea 09/13/22 09/22/22 Rx oral powder packet (Miralax) ondansetron HCl 4 mg tablet 4 mg PO Q6H PRN nausea and 09/21/22 09/22/22 Rx vomiting #10 tabs pantoprazole 40 mg tablet,delayed 40 mg PO DAILY #30 tabs 09/21/22 09/22/22 Rx release levothyroxine 50 mcg tablet 50 mcg PO DAILY #90 tabs 10/07/22 Rx Past Med/Surg History Medical History Abdominal aortic aneurysm (AAA), 30-34 mm diameter Anxiety Arteriosclerotic coronary artery disease Asthma Atrial flutter DX [address] [place] Benign prostatic hyperplasia with urinary obstruction CAD (coronary artery disease) Cerebral cavernoma Chronic pulmonary aspiration Depression Dyslipidemia Fever History of acute bronchitis with bronchospasm History of basal cell carcinoma (BCC) of skin (05/2020) History of sinusitis Hypertension Hypothyroidism (acquired) Hypoxia Mild cognitive impairment On home oxygen therapy AT NIGHT Osteoarthritis Osteoporosis Paroxysmal atrial fibrillation DX [address] [place] Pneumonia Seizure 01/29/19 - X2 ON THAT DAY AND WAS ADMITTED AND STARTED ON KEPPRA AND NO SEIZURE SINCE Seizure disorder (01/2019) SOB (shortness of breath) TIA (transient ischemic attack) 2017 X 1 AND NONE SINCE Tremor HANDS Type 2 diabetes mellitus Vitamin B12 deficiency Vitamin D deficiency Surgical History H/O 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 History of anesthesia reaction states "stopped breathing during MOHS procedure [place] [facility] [place] History of colonoscopy History of lung biopsy (03/27/19) Navigational Bronchoscopy with ICG Dye, Robotic Right Video Assisted Thoracoscopy with Right Lower Lobe Wedge Resection with Mediastinal Lymphadenectomy and Lymph Node Biopsy Dr. Lynn 03/27/19 Hx of cardiac cath 2017 -- HEART CATH WITH STENT [facility] WITH DR CUELLAR LAST SEEN 12/20/2018 Presence of Watchman left atrial appendage closure device (06/24/22) S/P Mohs surgery for basal cell carcinoma Family History Father Heart disease Other COPD (chronic obstructive pulmonary disease) Depression Family history non-contributory Denies family history of Ovarian cancer Prostate cancer Coronary heart disease Myocardial infarction Breast cancer Seizure Lung cancer Colorectal cancer Social History Smoking Status: Former smoker Tobacco Type: Cigarettes Age Started Using Tobacco: 18; Age Quit Using Tobacco: 33; packs per day: 2; Cigarettes Per Day: 20-40; Second Hand Exposure: No; Do You Dip or Chew Tobacco: Yes; Hx Alcohol Use: No Hx Substance Use: No Preferred Language: Arabic Communication Ability: Effective Visual Impairment: No Limitations Hearing Ability: 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 of 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 Electron Beam Required: No Beliefs That Will Affect Care: None marital status: Current Living Situation: Spouse Current Living Situation Comment: spouse provides all care for patient current occupational status: retired 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 Physical Exam Constitutional: WD/WN, vitals as above Eyes: PERRL, conjunctivae normal, anicteric sclerae Respiratory: Mildly diminished breath sounds at LLL field. Clear to auscultation elsewhere. Cardiovascular: Rate/Rhythm: + irregularly irregular Heart Sounds: normal S1 and normal S2 No peripheral edema. Chest (Breasts): normal inspection/palpation of breasts Gastrointestinal (Abdomen): normal bowel sounds, soft, nontender, no hepatosplenomegaly Psychiatric: Orientation: alert, oriented to person and oriented to time Results & Data Results & Data Vital Signs (Past 12 Hours) Vital Signs Temp Pulse Resp BP Pulse Ox O2 Del Method 10/14/22 19:36 108 H 20 144/86 H 82 L 10/14/22 19:00 111 H 23 152/85 H 94 10/14/22 18:24 93 Room Air 10/14/22 18:16 111 H 10/14/22 18:20 36.8 C 88 17 141/79 H 93 Room Air Supervising Physician Co-Signing Physician Notes Attending addendum: I have physically seen this patient, have supervised the medical residents activities, and agree with the H&P unless as otherwise noted. Assessment and Plan: Status post fall/generalized weakness- Mechanical fall, without neurologic symptoms preceding CT head neck negative for acute changes feels that generalized weakness has been worsening at home due to his heavy tobacco chewing use and causing decreased oral intake and poor nutrition Fall precautions PT/OT evaluation Acute respiratory failure with hypoxia/COPD exacerbation/pneumonia- Given cefepime 2 g IV in the ED Duonebs every 4 hours while awake and every 2 hours when necessary. MRSA swab Ceftriaxone 1 g IV daily Azithromycin 5 mg IV daily Guaifenesin extended release 600 mg p.o. twice daily Pulmicort Respules 0.5 mg inhaled twice daily Nasal cannula oxygen, titrate to keep pulse ox around 92% Paroxysmal atrial fibrillation- Likely placed in part secondary to low magnesium of 1.3 History of Watchman procedure, and transitioned to aspirin and clopidogrel Given metoprolol 2.5 mg IV and magnesium sulfate 2 g IV Target magnesium greater than or equal to 2, and potassium greater than or equal to 4 Tobacco use disorder- Cessation counseling Seizure disorder- Continue Keppra Remaining orders and notations as noted Resident Activity Tracking Resident Involvement: Resident Care Provided Care Provided: Adult Hospital Medicine (8) Type 2 diabetes mellitus Diabetes mellitus complication status: without complication Diabetes mellitus halfway insulin use: without long goods drier use Qualified Code(s): E11.9 - Type 2 diabetes mellitus without complications
[2022-10-14] MEDS ORDERED: DEXTROSE 50% 50 ML SYRINGE IV PRN (23:19)
[2022-10-14] MEDS ORDERED: ACETAMINOPHEN 325 MG TAB PO PRN (23:19)
[2022-10-14] MEDS ORDERED: ALBUTEROL HFA 8 GM INHALER INH PRN (23:19)
[2022-10-14] MEDS ORDERED: GLUCOSE 10 TAB/TUBE PO PRN (23:19)
[2022-10-14] MEDS ORDERED: GLUCAGON FOR INJ 1 MG VIAL SQ PRN (23:19)
[2022-10-14] MEDS ORDERED: guaiFENesin 600 MG TABCR PO PRN (23:19)
[2022-10-14] MEDS ORDERED: GLUCOSE 40% GEL 15 GM TUBE PO PRN (23:19)
[2022-10-14] MEDS ORDERED: SODIUM CHLORIDE 0.9% 1000ML 1,000 ML IV SCH (23:19)
[2022-10-14] MEDS ORDERED: CARBOHYDRATES FOR HYPOGLYCEMIA PO PRN (23:19)
[2022-10-14] MEDS ORDERED: POTASSIUM CHLORIDE CRTAB 20 MEQ TABCR PO STA (23:38)
[2022-10-14] MEDS ORDERED: ONDANSETRON INJ 2 MG/ML 2 ML VIAL IV PRN (23:55)
[2022-10-15] MEDS: CALCIUM 600MG + VIT D 400 IU TAB PO SCH ×2 (00:27→22:04)
[2022-10-15] MEDS: ATORVASTATIN 40 MG TAB PO SCH ×2 (00:27→22:04)
[2022-10-15] MEDS: levETIRAcetam 500 MG TAB PO SCH ×3 (00:27→22:04)
[2022-10-15] MEDS: MONTELUKAST SODIUM 10 MG TABLET PO SCH ×2 (00:27→22:04)
[2022-10-15] MEDS: dilTIAZem HCL 240 MG CAPCR PO SCH ×2 (00:27→22:04)
[2022-10-15] MEDS: INSULIN ASPART PER UNIT CHARGE SC SCH ×5 (00:27→22:04)
[2022-10-15] MEDS: cefTRIAXone SODIUM 1,000 MG in DEXTROSE 5% AD-VAN 50 ML IV SCH (01:53)
[2022-10-15] MEDS: LEVOTHYROXINE SODIUM 50 MCG TABLET PO SCH (05:52)
[2022-10-15 07:06] LABS: Basophils # (auto) 0.06 K/uL (0-0.2); Basophils % (auto) 0.4 %; Eosinophils # (auto) 0.06 K/uL (0-0.50); Eosinophils % (auto) 0.4 %; Hematocrit (blood only) 32.8 % (42.0-52.0); Hemoglobin 10.7 g/dl (14.0-18.0); Immature Granulocytes # (auto) 0.08 K/uL (0.01-0.20); Immature Granulocytes % (auto) 0.5 %; Lymphocytes # (auto) 1.47 K/uL (1.2-3.4); Lymphocytes % (auto) 9.4 %; Mean Corpuscular Hemoglobin 26.2 pg (25.0-34.0); Mean Corpuscular Hgb Conc 32.6 g/dL (32.0-36.0); Mean Corpuscular Volume 80.4 fL (80.0-100.0); Mean Platelet Volume 10.1 fL (9.4-12.4); Monocytes # (auto) 1.17 K/uL (0.11-0.59); Monocytes % (auto) 7.5 %; Neutrophils # (auto) 12.82 K/uL (1.40-6.50); Neutrophils % (auto) 81.8 %; Platelet Count 176 K/uL (130-400); RDW Coefficient of Variation 20.1 % (11.5-14.5); RDW Standard Deviation 58.2 fL (36.4-46.3); Red Blood Count 4.08 M/uL (4.70-6.10); White Blood Count 15.66 K/ul (4.8-10.8)
[2022-10-15 07:11] LABS: BUN Creatinine Ratio 24.7 (10-20); Calcium 8.9 mg/dl (8.6-10.3); Creatinine Clr Calc Pharmacy 61.8 ml/min; Est GFR (African American) 98.6 ml/min; Est GFR (Non-African American) 85.1 ml/min; Potassium 4.3 mmol/L (3.5-5.1)
[2022-10-15 07:26] LABS: Anisocytosis Present
[2022-10-15] MEDS: FORMOTEROL 20 MCG/2 ML VIAL NEB SCH ×2 (07:32→19:28)
[2022-10-15] MEDS: BUDESONIDE 0.5 MG/2 ML VIAL (PULMICORT) NEB SCH ×2 (07:32→19:28)
[2022-10-15] MEDS ORDERED: VANCOMYCIN CONSULT ACTIVE PRN (08:19)
[2022-10-15] MEDS ORDERED: VANCOMYCIN HCL 1,250 MG in SODIUM CHLORIDE 0.9% 500 ML IV ONE (08:19)
--- NOTE | 2022-10-15 08:25 | Hospitalist Progress Note ---
Date of Service October 15, 2022 Assessment & Plan (1) Acute respiratory failure with hypoxia: Plan: -Presented with acute hypoxic respiratory failure, likely 2/2 pneumonia -Wean O2 as tolerated (2) Pneumonia: Plan: -Presented with hypoxia and leukocytosis (16.7->15.6), with evidence of RLL consolidation on CXR -Has a history of undifferentiated vomiting, with known history of aspiration, permissive aspiration has been decided by family in previous admissions -MRSA swab positive -Continue cefepime, add vancomycin today (3) Fall: Plan: -Recently hospitalized in September followed by [facility]. Had good progress until return home -Fall 10/14 while using walker in kitchen w/o LOC -CT head and neck w/o acute abnormalities -Progressive weakness at home most likely due to poor nutrition and hydration, chronic debility, and now acute infection/hypoxia -Fall precautions -PT/OT evaluations when appropriate, patient will benefit from rehab services on discharge (4) Paroxysmal atrial fibrillation: Plan: -EKG with evidence of atrial fibrillation -Watchman placed in June, not an appropriate terminal makeup operator candidate for chronic AC per Cardiology documentation 02/10/22 -Mg 1.3 in the ED, will replete with total of 4g Mag Sulfate IV, recheck tomorrow -Continue home metoprolol 25mg qAM -Tele for cardiac monitoring (5) Vomiting: Plan: -Has a history of undifferentiated vomiting, with known history of aspiration, permissive aspiration has been decided by family in previous admissions -Zofran as needed for nausea/vomiting -Continue pantoprazole for possible element of GERD -Continue to monitor electrolytes (6) Tobacco use disorder: Plan: -Patient former smoker, history of COPD. Now uses chew -Per , uses as much as he can when he is home and this has led to him not eating well and decreased energy as a result, might also be contributory to patient's nausea -Nicotine patch to help curb cravings (7) Anxiety: Plan: -Chronic, stable. Continue home sertraline (8) Seizure disorder: Plan: -Patient had fall at home, without LOC, no seizure activity, not post-ictal appearing on admission -Continue home Keppra (9) Type 2 diabetes mellitus: Plan: -Insulin sliding scale while inpatient. Holding home metformin (10) COPD (chronic obstructive pulmonary disease): Plan: -History of, robust smoking history, now has transitioned from smoking to constant chew at home -Currently on 2 L nasal cannula saturating well, wean as tolerated and will have to perform two-step if patient's discharge plan is to home Plan F/E/N/GI: Carb consistent, moist and minced DVT prophylaxis: Heparin 5000 units twice daily Code status: Full code Dispo: Med/tele PT/OT eval when more well Admission and Anticipated Discharge Date Admission Date: October 14, 2022 Subjective Patient without any acute events overnight. Reports that his breathing is better today, in particular his sense of congestion in his chest. Denies any chest pain or abdominal pain. Review of Systems Review of Systems: All systems reviewed & are unremarkable except as noted in Subjective Physical Exam Constitutional: WD/WN, vitals as above Respiratory: Rhonchi noted in right lower lung field, otherwise lungs clear to auscultation Cardiovascular: RRR, no murmur, no edema Gastrointestinal (Abdomen): normal bowel sounds, soft, nontender, no hepatosplenomegaly Skin: no rashes, warm and dry Psychiatric: A+Ox3, euthymic affect Results & Data Results & Data Vital Signs (Past 12 Hours) Vital Signs Temp Pulse Pulse Resp BP BP Pulse Ox 10/15/22 07:16 36.5 C 77 16 109/71 96 10/15/22 07:33 75 18 96 10/14/22 23:07 103 H 10/14/22 23:07 10/14/22 23:07 36.5 C 97 H 18 134/86 96 10/15/22 03:16 36.6 C 86 16 110/65 96 10/14/22 22:19 112 H 10/14/22 22:00 103 H 20 115/82 95 10/14/22 21:49 113 H 12 122/82 94 10/14/22 21:13 125 H 18 93 10/14/22 21:01 145/106 H 10/14/22 20:30 121 H 22 131/94 O2 Del Method O2 Flow Rate 10/15/22 07:16 Nasal Cannula 2 10/15/22 07:33 Nasal Cannula 2 10/14/22 23:07 10/14/22 23:07 Nasal Cannula 2 10/14/22 23:07 Nasal Cannula 2 10/15/22 03:16 Nasal Cannula 2 10/14/22 22:19 10/14/22 22:00 10/14/22 21:49 10/14/22 21:13 10/14/22 21:01 10/14/22 20:30 PG Care Time/CCT Total # of Minutes Spent Total Time Spent with Patient: Total time spent is greater than 50% in coordination of care (as documented) at patient's floor/unit and/or counseling patient: Coding Level of Care Code 13209 SUB INP/OBS CARE 3/50MIN Diagnoses Acute respiratory failure with hypoxia J96.01 Pneumonia J18.9 Laterality: right Lung location: middle lobe of lung Pneumonia type: due to unspecified organism Fall W19.XXXA Paroxysmal atrial fibrillation I48.0 Vomiting R11.10 Tobacco use disorder F17.200 Anxiety F41.9 Seizure disorder G40.909 Type 2 diabetes mellitus E11.9 Diabetes mellitus complication status: without complication Diabetes mellitus terminal makeup operator insulin use: without terminal makeup operator use COPD (chronic obstructive pulmonary disease) J44.9 (2) Pneumonia Laterality: right Lung location: middle lobe of lung Pneumonia type: due to unspecified organism Qualified Code(s): J18.9 - Pneumonia, unspecified organism (9) Type 2 diabetes mellitus Diabetes mellitus complication status: without complication Diabetes mellitus care home insulin use: without terminal makeup operator use Qualified Code(s): E11.9 - Type 2 diabetes mellitus without complications
[2022-10-15] MEDS: MAGNESIUM SULFATE / D5W 1 GM/100 ML BAG IV SCH ×2 (08:47→10:45)
[2022-10-15] MEDS: METOPROLOL TARTRATE 25 MG TAB PO SCH (08:48)
[2022-10-15] MEDS: NICOTINE 14 MG/24 HR PATCH TD SCH (08:48)
[2022-10-15] MEDS: ASPIRIN 81 MG ECTAB PO SCH (08:48)
[2022-10-15] MEDS: AZITHROMYCIN 250 MG TAB PO SCH (08:49)
[2022-10-15] MEDS: SERTRALINE HCL 100 MG TABLET PO SCH (08:49)
[2022-10-15] MEDS: CYANOCOBALAMIN (B-12) 500 MCG TABLET PO SCH (08:50)
[2022-10-15] MEDS: predniSONE 20 MG TAB PO SCH (08:50)
[2022-10-15] MEDS: PANTOprazole 40 MG TAB PO SCH (08:50)
[2022-10-15] MEDS: CLOPIDOGREL BISULFATE 75 MG TAB PO SCH (08:51)
--- NOTE | 2022-10-15 10:23 | Pharmacy Report ---
Pharmacy PK ABX Note - Date of Service October 15, 2022 - Assessment and Plan Assessment 82 year old M receiving vancomycin + ceftriaxone + azithromycin for treatment of pneumonia. Pertinent microbiologic data includes: Positive MRSA nasal swab, blood cultures are pending. Patient afebrile, leukocytosis and requiring oxygen. Chest Xray with RLL opacity. Day # 1 of antimicrobial therapy. Plan Vancomycin * Loading dose: 1250 mg IV x 1 * Maintenance dose: 750 mg IV every 12 hours * Regimen is predicted to achieve target AUC/ARCELIA of 400-600 mg/L.hr * Random level ordered for 10/17 @1000 Pharmacy will continue to follow and will adjust dose/frequency as necessary. Thank you. Pharmacy has transitioned to AUC monitoring for vancomycin. AUC/ARCELIA is the preferred PK/PD target and is associated with decreased risk of nephrotoxicity compared to traditional trough targets.
[2022-10-15] MEDS: VANCOMYCIN HCL 750 MG in SODIUM CHLORIDE 0.9% 250 ML IV SCH (14:21)
--- NOTE | 2022-10-15 20:02 | Billing Data ---
Date of Service October 15, 2022 Coding Level of Care Code 81440 INT INP/OBS CARE
[2022-10-15] MEDS: lisinopril 20 MG TAB PO SCH (22:04)
[2022-10-15] MEDS: HEPARIN SOD 5,000 UNIT/0.5 ML VIAL SQ SCH (22:05)
[2022-10-16] MEDS: cefTRIAXone SODIUM 1,000 MG in DEXTROSE 5% AD-VAN 50 ML IV SCH (01:47)
[2022-10-16] MEDS: VANCOMYCIN HCL 750 MG in SODIUM CHLORIDE 0.9% 250 ML IV SCH ×2 (01:47→14:00)
[2022-10-16] MEDS: LEVOTHYROXINE SODIUM 50 MCG TABLET PO SCH (05:12)
--- NOTE | 2022-10-16 06:42 | Electrocardiogram Report ---
Test Reason : Blood Pressure : / mmHG Vent. Rate : 112 BPM Atrial Rate : 000 BPM P-R Int : 000 ms QRS Dur : 078 ms QT Int : 322 ms P-R-T Axes : 000 046 047 degrees QTc Int : 439 ms Atrial fibrillation with rapid ventricular response ST depression, consider subendocardial injury Nonspecific T wave abnormality Abnormal ECG When compared with ECG of 10-SEP-2022 20:15, Atrial fibrillation has replaced Sinus rhythm Confirmed by Edgar Lal ([id number]) on 10/16/2022 6:41:49 AM Referred By: REFERRED SELF Confirmed By:Edgar Lal
[2022-10-16 07:19] LABS: BUN Creatinine Ratio 17.7 (10-20); Calcium 8.9 mg/dl (8.6-10.3); Creatinine Clr Calc Pharmacy 61.7 ml/min; Est GFR (African American) 97.6 ml/min; Est GFR (Non-African American) 84.2 ml/min; Magnesium 1.9 mg/dl (1.7-2.4); Potassium 4.4 mmol/L (3.5-5.1)
[2022-10-16 07:20] LABS: Basophils # (auto) 0.02 K/uL (0-0.2); Basophils % (auto) 0.2 %; Hematocrit (blood only) 31.4 % (42.0-52.0); Hemoglobin 9.9 g/dl (14.0-18.0); Immature Granulocytes # (auto) 0.03 K/uL (0.01-0.20); Immature Granulocytes % (auto) 0.3 %; Lymphocytes # (auto) 1.07 K/uL (1.2-3.4); Lymphocytes % (auto) 12.3 %; Mean Corpuscular Hemoglobin 25.9 pg (25.0-34.0); Mean Corpuscular Hgb Conc 31.5 g/dL (32.0-36.0); Mean Corpuscular Volume 82.2 fL (80.0-100.0); Mean Platelet Volume 10.1 fL (9.4-12.4); Monocytes % (auto) 5.8 %; Neutrophils # (auto) 7.06 K/uL (1.40-6.50); Neutrophils % (auto) 81.4 %; Platelet Count 179 K/uL (130-400); RDW Coefficient of Variation 20.3 % (11.5-14.5); RDW Standard Deviation 59.9 fL (36.4-46.3); Red Blood Count 3.82 M/uL (4.70-6.10); White Blood Count 8.68 K/ul (4.8-10.8)
[2022-10-16] MEDS: BUDESONIDE 0.5 MG/2 ML VIAL (PULMICORT) NEB SCH ×2 (07:32→19:59)
[2022-10-16] MEDS: FORMOTEROL 20 MCG/2 ML VIAL NEB SCH ×2 (07:32→19:59)
[2022-10-16 07:44] LABS: Anisocytosis Present; Poikilocytosis Present; Polychromasia 1+
[2022-10-16] MEDS: INSULIN ASPART PER UNIT CHARGE SC SCH ×4 (08:44→22:48)
--- NOTE | 2022-10-16 08:45 | Hospitalist Progress Note ---
Date of Service October 16, 2022 Assessment & Plan (1) Pneumonia: Plan: -Presented with hypoxia and leukocytosis (16.7-> 8.68), with evidence of RLL consolidation on CXR -Has a history of undifferentiated vomiting, with known history of aspiration, permissive aspiration has been decided by family in previous admissions -MRSA swab positive; will continue coverage for this given that WBC count improved drastically with combination therapy as compared to ceftriaxone only -Continue ceftriaxone/vancomycin (2) Acute respiratory failure with hypoxia: Plan: -Presented with acute hypoxic respiratory failure, likely 2/2 pneumonia -Wean O2 as tolerated (3) Fall: Plan: -Recently hospitalized in September followed by [facility]. Had good progress until return home -Fall 10/14 while using walker in kitchen w/o LOC -CT head and neck w/o acute abnormalities -Progressive weakness at home most likely due to poor nutrition and hydration, chronic debility, and now acute infection/hypoxia -Fall precautions -PT/OT evaluations when appropriate, plan to return home when medically stable, would recommend home therapy for this patient given his weakness and falls (4) Paroxysmal atrial fibrillation: Plan: -EKG with evidence of atrial fibrillation -Watchman placed in June, not an appropriate extermination inspector candidate for chronic AC per Cardiology documentation 02/10/22 -Mg 1.3 -> 1.9 with repletion -Continue home metoprolol 25mg qAM -Tele for cardiac monitoring (5) Vomiting: Plan: -Has a history of undifferentiated vomiting, with known history of aspiration, permissive aspiration has been decided by family in previous admissions -Zofran as needed for nausea/vomiting -Continue pantoprazole for possible element of GERD -Continue to monitor electrolytes (6) Tobacco use disorder: Plan: -Patient former smoker, history of COPD. Now uses chew -Per , uses as much as he can when he is home and this has led to him not eating well and decreased energy as a result, might also be contributory to patient's nausea -Nicotine patch to help curb cravings (7) Anxiety: Plan: -Chronic, stable. Continue home sertraline (8) Seizure disorder: Plan: -Patient had fall at home, without LOC, no seizure activity, not post-ictal appearing on admission -Continue home Keppra (9) Type 2 diabetes mellitus: Plan: -Insulin sliding scale while inpatient. Holding home metformin (10) COPD (chronic obstructive pulmonary disease): Plan: -History of, robust smoking history, now has transitioned from smoking to constant chew at home -Currently on 2 L nasal cannula saturating well, wean as tolerated and will have to perform two-step if patient's discharge plan continues to be to home Plan F/E/N/GI: Carb consistent, moist and minced DVT prophylaxis: Heparin 5000 units twice daily Code status: Full code Dispo: Med/tele PT/OT recommending home with discharge, patient would benefit from home PT services given falls and weakness Admission and Anticipated Discharge Date Admission Date: October 14, 2022 Subjective Patient without any acute events overnight. Reports that his breathing is "good", no abdominal pain, no chest pain. Saturating well on 2 L nasal cannula. Review of Systems Review of Systems: All systems reviewed & are unremarkable except as noted in Subjective Physical Exam Constitutional: WD/WN, vitals as above Respiratory: Rhonchi noted in right lower lung field, otherwise lungs clear to auscultation Cardiovascular: RRR, no murmur, no edema Gastrointestinal (Abdomen): normal bowel sounds, soft, nontender, no hepatosplenomegaly Skin: no rashes, warm and dry Psychiatric: A+Ox3, euthymic affect Results & Data Results & Data Vital Signs (Past 12 Hours) Vital Signs Temp Pulse Resp BP BP Pulse Ox O2 Del Method 10/16/22 07:39 36.3 C L 18 120/74 97 Nasal Cannula 10/16/22 07:33 64 18 97 Nasal Cannula 10/16/22 01:53 36.3 C L 62 16 109/66 92 Nasal Cannula 10/15/22 23:35 Nasal Cannula 10/15/22 22:00 36.6 C 71 18 131/67 97 Nasal Cannula O2 Flow Rate 10/16/22 07:39 2 10/16/22 07:33 2 10/16/22 01:53 2 10/15/22 23:35 2 10/15/22 22:00 2 PG Care Time/CCT Total # of Minutes Spent Total Time Spent with Patient: Total time spent is greater than 50% in coordination of care (as documented) at patient's floor/unit and/or counseling patient: Coding Level of Care Code 69661 SUB INP/OBS CARE 2/35MIN Diagnoses Pneumonia J18.9 Laterality: right Lung location: middle lobe of lung Pneumonia type: due to unspecified organism Acute respiratory failure with hypoxia J96.01 Fall W19.XXXA Paroxysmal atrial fibrillation I48.0 Vomiting R11.10 Tobacco use disorder F17.200 Anxiety F41.9 Seizure disorder G40.909 Type 2 diabetes mellitus E11.9 Diabetes mellitus complication status: without complication Diabetes mellitus extermination inspector insulin use: without extermination inspector use COPD (chronic obstructive pulmonary disease) J44.9 (1) Pneumonia Laterality: right Lung location: middle lobe of lung Pneumonia type: due to unspecified organism Qualified Code(s): J18.9 - Pneumonia, unspecified organism (9) Type 2 diabetes mellitus Diabetes mellitus complication status: without complication Diabetes mellitus extermination inspector insulin use: without residential use Qualified Code(s): E11.9 - Type 2 diabetes mellitus without complications
[2022-10-16] MEDS: ASPIRIN 81 MG ECTAB PO SCH (08:51)
[2022-10-16] MEDS: CLOPIDOGREL BISULFATE 75 MG TAB PO SCH (08:52)
[2022-10-16] MEDS: AZITHROMYCIN 250 MG TAB PO SCH (08:52)
[2022-10-16] MEDS: CYANOCOBALAMIN (B-12) 500 MCG TABLET PO SCH (08:53)
[2022-10-16] MEDS: HEPARIN SOD 5,000 UNIT/0.5 ML VIAL SQ SCH ×2 (08:56→19:50)
[2022-10-16] MEDS: levETIRAcetam 500 MG TAB PO SCH ×2 (09:01→19:52)
[2022-10-16] MEDS: NICOTINE 14 MG/24 HR PATCH TD SCH (09:02)
[2022-10-16] MEDS: METOPROLOL TARTRATE 25 MG TAB PO SCH (09:02)
[2022-10-16] MEDS: predniSONE 20 MG TAB PO SCH (09:04)
[2022-10-16] MEDS: PANTOprazole 40 MG TAB PO SCH (09:04)
[2022-10-16] MEDS: SERTRALINE HCL 100 MG TABLET PO SCH (09:05)
[2022-10-16] MEDS: dilTIAZem HCL 240 MG CAPCR PO SCH (19:50)
[2022-10-16] MEDS: lisinopril 20 MG TAB PO SCH (19:50)
[2022-10-16] MEDS: MONTELUKAST SODIUM 10 MG TABLET PO SCH (19:50)
[2022-10-16] MEDS: ATORVASTATIN 40 MG TAB PO SCH (19:50)
[2022-10-16] MEDS: CALCIUM 600MG + VIT D 400 IU TAB PO SCH (19:51)
[2022-10-17] MEDS: VANCOMYCIN HCL 750 MG in SODIUM CHLORIDE 0.9% 250 ML IV SCH (01:30)
[2022-10-17] MEDS: cefTRIAXone SODIUM 1,000 MG in DEXTROSE 5% AD-VAN 50 ML IV SCH (04:08)
[2022-10-17] MEDS: LEVOTHYROXINE SODIUM 50 MCG TABLET PO SCH (04:10)
[2022-10-17] MEDS: FORMOTEROL 20 MCG/2 ML VIAL NEB SCH (07:14)
[2022-10-17] MEDS: BUDESONIDE 0.5 MG/2 ML VIAL (PULMICORT) NEB SCH (07:14)
[2022-10-17] MEDS: INSULIN ASPART PER UNIT CHARGE SC SCH ×2 (08:13→12:12)
[2022-10-17] MEDS: ASPIRIN 81 MG ECTAB PO SCH (08:15)
[2022-10-17] MEDS: CLOPIDOGREL BISULFATE 75 MG TAB PO SCH (08:15)
[2022-10-17] MEDS: CYANOCOBALAMIN (B-12) 500 MCG TABLET PO SCH (08:16)
[2022-10-17] MEDS: levETIRAcetam 500 MG TAB PO SCH (08:16)
[2022-10-17] MEDS: HEPARIN SOD 5,000 UNIT/0.5 ML VIAL SQ SCH (08:16)
[2022-10-17] MEDS: METOPROLOL TARTRATE 25 MG TAB PO SCH (08:17)
[2022-10-17] MEDS: NICOTINE 14 MG/24 HR PATCH TD SCH (08:17)
[2022-10-17] MEDS: PANTOprazole 40 MG TAB PO SCH (08:18)
[2022-10-17] MEDS: predniSONE 20 MG TAB PO SCH (08:18)
[2022-10-17] MEDS: SERTRALINE HCL 100 MG TABLET PO SCH (08:18)
--- NOTE | 2022-10-17 09:46 | XRay Report ---
XR chest 1V portable CLINICAL HISTORY: RLL pneumonia TECHNIQUE: Single frontal radiograph of the chest was obtained. Comparison: Comparison is made to chest radiograph 10/14/2022 FINDINGS: No lines and tubes are seen. Calcified aortic knob is seen. Right lower lung airspace opacity has imp roved from prior exam. No evidence of pleural effusion or pneumothorax. IMPRESSION: Right lower lung airspace opacity has improved from prior exam. ACT 112: Negative or not required by law. Electronically signed by: Serafin Chaidez M.D. 10/17/2022 9:43 AM
[2022-10-17 10:48] LABS: Basophils # (auto) 0.05 K/uL (0-0.2); Basophils % (auto) 0.4 %; Hematocrit (blood only) 38.6 % (42.0-52.0); Hemoglobin 12.2 g/dl (14.0-18.0); Immature Granulocytes # (auto) 0.06 K/uL (0.01-0.20); Immature Granulocytes % (auto) 0.5 %; Lymphocytes # (auto) 1.23 K/uL (1.2-3.4); Lymphocytes % (auto) 9.4 %; Mean Corpuscular Hemoglobin 25.8 pg (25.0-34.0); Mean Corpuscular Hgb Conc 31.6 g/dL (32.0-36.0); Mean Corpuscular Volume 81.8 fL (80.0-100.0); Mean Platelet Volume 10.4 fL (9.4-12.4); Monocytes # (auto) 0.94 K/uL (0.11-0.59); Monocytes % (auto) 7.2 %; Neutrophils # (auto) 10.81 K/uL (1.40-6.50); Neutrophils % (auto) 82.5 %; Platelet Count 253 K/uL (130-400); RDW Coefficient of Variation 20.6 % (11.5-14.5); RDW Standard Deviation 61.1 fL (36.4-46.3); Red Blood Count 4.72 M/uL (4.70-6.10); White Blood Count 13.09 K/ul (4.8-10.8)
--- NOTE | 2022-10-17 11:05 | Pharmacy Report ---
Pharmacy PK ABX Note - Date of Service October 17, 2022 - Assessment and Plan Assessment 10/17: * Patient continues on vancomycin/rocephin for pneumonia. * Random vancomycin level came back at ~14 mcg/ml this AM - current vancomycin dosing of 750 mg iv q 12 hours is associated with AUC/ARCELIA of 400-600 therefore will continue current regimen 10/15: * 82 year old M receiving vancomycin + ceftriaxone + azithromycin for treatment of pneumonia. Pertinent microbiologic data includes: Positive MRSA nasal swab, blood cultures are pending. Patient afebrile, leukocytosis and requiring oxygen. Chest Xray with RLL opacity. * Day # 1 of antimicrobial therapy. Plan Vancomycin * Random level this AM is predicting therapeutic dosing * Continue vancomycin 750 mg IV every 12 hours * Regimen is predicted to achieve target AUC/ARCELIA of 400-600 mg/L.hr * Will plan to recheck another level in 2-3 days Pharmacy will continue to follow and will adjust dose/frequency as necessary. Thank you. Pharmacy has transitioned to AUC monitoring for vancomycin. AUC/ARCELIA is the pr eferred PK/PD target and is associated with decreased risk of nephrotoxicity compared to traditional trough targets.
[2022-10-17 11:07] LABS: Anisocytosis Present
[2022-10-17 11:19] LABS: BUN Creatinine Ratio 19.3 (10-20); Calcium 9.7 mg/dl (8.6-10.3); Creatinine Clr Calc Pharmacy 54.9 ml/min; Est GFR (African American) 93.4 ml/min; Est GFR (Non-African American) 80.6 ml/min; Potassium 3.5 mmol/L (3.5-5.1)
--- NOTE | 2022-10-17 11:26 | Discharge Summary ---
Date of Service October 17, 2022 Admission HPI Per Admitting Provider Jose J is an 82 y/o M w/ PmHx COPD, chronic respiratory failure w/ hypoxia, paroxysmal atrial fibrillation w/ watchman 06/2022, T2DM, seizure disorder w/ last seizure 01/2019, hypothyroidism, CAD, vit D and B12 deficiency, AAA 30-34mm diameter, dyslipidemia, depression, HTN, mild cognitive impairment, osteoporosis, cerebral cavernoma coming in for fall via EMS. Spoke with patient's on the phone as patient has dementia and did not wish to speak at length with me at bedside due to wanting to sleep. He was in the hospital in the beginning of September with UTI and leukocytosis, after went to [facility]. When he came home he sits around with snuff in mouth all day long - without the snuff he would eat better and walk better. Went 2 weeks without snuff, after went back on the snuff went downhill again right back to where he was. He vomited all snuff and mucous like a repeat September symptoms. His didn't get back till later in the day and he tried to get off his chair and was weak on the floor. Worked up to getting up, walked to kitchen with walker and fell. He had been vomiting before the fall even which his attributes to his snuff intake. No signs of fever, chills, shortness of breath or chest pain from the patient prior to coming in. He is no longer taking Eliquis, has a watchman placed back in June. In the ED WBC 16.77, Hgb 12.0, Mg 1.3. U/A negative. Head CT negative for acute abnormality or bleed. CT neck w/o any acute abnormality. CXR w/ RLL airspace opacity possibly PNA or aspiration. He was given 1L NSS, 2.5mg metoprolol tartrate, 2g Mg sulfate, 2g Cefepime and albuterol neb. Principal Diagnosis Recurrent right lower lobe aspiration pneumonia, acute hypoxic respiratory failure, hypomagnesemia Discharge Exam General-alert, disoriented, no fevers, no chills HEENT-head atraumatic and normocephalic, pupils equal and reactive to light, extraocular muscles intact Neck-no lymphadenopathy or thyromegaly, trachea midline Chest-clear to auscultation percussion. No rales wheezing or rhonchi Cardiac-regular rate and rhythm, normal S1 and S2 Abdomen-normal bowel sounds, nontender, no hepatosplenomegaly Extremities-no cyanosis, clubbing, or edema Neuro-cranial nerves II through XII intact, motor and sensory function within normal limits, strength symmetrical , no focal deficits Psych-normal affect, normal mood Discharge Data Allergies Allergy/AdvReac Type Severity Reaction Status Date / Time pollen extracts Allergy Mild CONGESTION Verified 09/10/22 19:11 No Known Drug Allergies Allergy Unknown Unknown Unverified 09/10/22 19:11 Consultations 10/14/22 20:02 ED Decision to Admit Stat Ordered Studies 10/14/22 18:09 CT cervical spine wo con Stat CT head/brain wo con Stat Hospital Course (1) Pneumonia: Right lower lobe pneumonia due to recurrent aspiration. Treated while hospitalized with Rocephin and vancomycin. MRSA swab was positive. It is unlikely however that he has MRSA pneumonia. He will be discharged home on Augmentin and prednisone tapering dose. Chest x-ray done today, October 17, looks better (2) Acute respiratory failure with hypoxia: Present on admission. Now resolved. He is on room air (3) Fall: Continue home physical therapy. CT head and neck w/o acute abnormalities (4) Paroxysmal atrial fibrillation: Watchman device placed in June of this year. He is not an appropriate long lines operator candidate for chronic AC per Cardiology documentation 02/10/22. Continue metoprolol 25mg qAM. Telemetry (5) Vomiting: Has a history of vomiting, with known history of aspiration, permissive aspiration has been decided by family in previous admissions. Supportive care (6) Tobacco use disorder: Patient former smoker, history of COPD. Now uses chew. Nicotine patch to help curb cravings (7) Anxiety: Stable. Continue sertraline (8) Seizure disorder: Patient had fall at home, without LOC, no seizure activity, not post-ictal appearing on admission. Continue Keppra (9) Type 2 diabetes mellitus: ADA diet. Insulin sliding scale while inpatient. Holding metformin while hospitalized. Resume at discharge (10) COPD (chronic obstructive pulmonary disease): History of, robust smoking history, now has transitioned from smoking to constant chew at home. (11) Hypomagnesemia: Corrected with parenteral supplementation Plan Stable for discharge home today, October 17, on prednisone taper and Augmentin. Continue home physical therapy Total Time Total Time Spent Total Time Spent (In Minutes): 40 minutes Discharge Plan Discharge Items Patient Disposition: Home - Home Health Services Reason For Visit: FALL, PNA Discharge Diagnosis: Recurrent aspiration pneumonia, acute hypoxic respiratory failure, hypomagnesemia Condition on Discharge: Good Activity: Resume your previous activity Non-emergency contact: Primary Care Provider Call non-emergency contact if: you have any medication questions and your symptoms worsen Follow-up/Referrals: PCP,NO [Primary Care Provider] - Diet: Carb Consistent or DM2 and Heart Healthy Addtl Attending Provider Instructions: Take amoxicillin/Clavulinate ( Augmentin ) twice a day for 1 week. Take prednisone in a tapering dose fashion as directed Pending Studies at Discharge: No Stand-Alone Forms: My [employer], Smoking Cessation Medications and DC Order Prescriptions: New amoxicillin-pot clavulanate 875-125 mg tablet 1 tab PO BID Qty: 14 0RF prednisone 10 mg tablet See Rx Instructions .ROUTE .COMPLEX Qty: 12 0RF Rx Instructions: 10 mg orally 3 times a day for 2 days, then 10 mg twice a day for 2 days, then 10 mg once a day for 2 days, then stop Continued levetiracetam [Keppra] 500 mg tablet 1,000 mg PO BID 90 Days Qty: 360 3RF sertraline 100 mg tablet 100 mg PO QAM Qty: 90 2RF metformin 850 mg tablet 850 mg PO BID Qty: 180 1RF diltiazem HCl [Cartia XT] 240 mg capsule,extended release 24hr 240 mg PO HS Qty: 90 3RF atorvastatin [Lipitor] 40 mg tablet 40 mg PO HS Qty: 90 3RF metoprolol tartrate 25 mg tablet 25 mg PO QAM Qty: 90 1RF lisinopril 20 mg tablet 20 mg PO HS Qty: 90 1RF montelukast 10 mg tablet 10 mg PO HS Qty: 90 1RF ondansetron HCl 4 mg tablet 4 mg PO Q6H PRN (Reason: nausea and vomiting) Qty: 10 0RF pantoprazole 40 mg tablet,delayed release (DR/EC) 40 mg PO DAILY Qty: 30 2RF levothyroxine 50 mcg tablet 50 mcg PO DAILY Qty: 90 3RF calcium carbonate-vitamin D3 600 mg(1,500mg) -400 unit tablet 2 tab PO HS albuterol sulfate [Ventolin HFA] 90 mcg/actuation HFA aerosol inhaler 2 puff INH Q4H PRN (Reason: Shortness Of Breath Or Wheezing) Qty: 8.5 3RF guaifenesin [Mucinex] 600 mg tablet extended release 12hr 1,200 mg PO Q12 PRN (Reason: cough) clopidogrel 75 mg tablet 75 mg PO DAILY Qty: 90 1RF Trelegy Ellipta 100-62.5-25 mcg blister with device 1 inh INHALATION QAM Qty: 180 1RF cyanocobalamin (vitamin B-12) [Vitamin B-12] 1,000 mcg tablet 1,000 mcg PO QAM bisacodyl 10 mg Suppository 10 mg GA DAILY Qty: 0 0RF polyethylene glycol 3350 [Miralax] 17 gram Powder In Packet 17 g PO DAILY Qty: 0 0RF aspirin 81 mg Tablet,Delayed Release (Dr/Ec) 81 mg PO QAM Discharge Orders: Discharge Order (Routine); Ordered 10/17/22 Ordered By: Darrel Staley Admission Data Admit Date/Time: 10/14/22 21:09 Attending Provider: Darrel Staley Admit Provider: Denny Stokes Primary Care Provider: PCP,NO Other Providers: Isauro [facility] Coding Level of Care Code 94612 INP/OBS DISCH >30 MIN Diagnoses Pneumonia J18.9 Laterality: right Lung location: middle lobe of lung Pneumonia type: due to unspecified organism Acute respiratory failure with hypoxia J96.01 Fall W19.XXXA Paroxysmal atrial fibrillation I48.0 Vomiting R11.10 Tobacco use disorder F17.200 Anxiety F41.9 Seizure disorder G40.909 Type 2 diabetes mellitus E11.9 Diabetes mellitus long lines operator insulin use: without correction use Diabetes mellitus complication status: without complication COPD (chronic obstructive pulmonary disease) J44.9 Hypomagnesemia E83.42
[2022-10-17] MEDS ORDERED: predniSONE 10 MG TABLET PO SCH (12:00)
== END 2022-10-17 14:35 | disposition home health service (06) | DRG 177 ==
LOC: ED 17:56 → 2W 21:09 → SUATTDRO 21:09 → 2W 23:35

== ENCOUNTER 2023-05-17 11:04 | Inpatient (IN) ==
--- NOTE | 2023-05-17 11:29 | Emergency Department Note ---
Impression & Plan Fall from standing, Closed fracture nasal bone, Fracture of maxillary sinus, Periorbital ecchymosis of left eye, Ambulatory dysfunction ED Provider Note HISTORY OF PRESENT ILLNESS: Patient is an 82-year-old male presenting after a fall from standing. Patient reports that he tripped and fell in his living room on a piece of carpet last night around 1900. Denies loss of consciousness. Reports that he did just lose his footing. Denies syncope. Denies chest pain or shortness of breath prior to the episode. Currently complaining of left facial pain. Denies any headache or changes in vision. Denies any numbness or tingling or weakness in extremities. He ambulates with a cane at baseline. He states his called 911 today. Reports tetanus is up-to-date. ROS: as above PHYSICAL EXAM: Constitutional: Patient appears in no acute distress. HENT: Head: Normocephalic. Patient has periorbital ecchymosis to the left eye. Also has an abrasion to the left maxillary region and the left upper lip. Eyes: EOMI, PERRL Mouth/Throat: Mucous membranes moist. Neck: Trachea midline. Neck supple. No midline cervical spine tenderness to palpation. Cardiovascular: Irregular rhythm. No murmurs, rubs or gallops. Intact distal pulses. Pulmonary/Chest: No respiratory distress. Breath sounds clear and equal bilaterally. No wheezes or rales. Abdominal: Abdomen soft, no tenderness, rebound or guarding. Back: No midline spinal tenderness, no paraspinal tenderness, no CVA tenderness. Patient is able to straight leg raise bilaterally. Musculoskeletal: No edema, tenderness or deformity noted. Skin: Warm and dry. No rash, erythema, pallor or cyanosis Psychiatric: Appropriate mood and affect for situation. Neurological: Alert and keenly responsive. CN II-XII grossly intact, moving all extremities equally and fully. MDM: - Vitals signs showed hypertension and tachycardia. - History obtained via patient. Patient presents with facial pain after fall from standing. Patient reports that he tripped and fell in his living room on a piece of carpet last night around 1900. He states that he lost his footing but did not pass out. Currently complaining of left facial pain. His called 911 today secondary to his facial bruising. Reports tetanus is up-to-date. Denies any headache or changes in vision. Denies any chest pain or shortness of breath. - Chronic conditions affecting care: DM-2; HTN; CAD; HLD; COPD; hypothyroidism; paroxysmal Afib - Differential diagnoses include, but are not limited to: intracranial hemorrhage; skull fracture; cervical fracture; facial fracture - Order placed for continuous cardiac monitoring. At this time, monitor showed rate of 70 bpm with irregular rhythm rhythm, per my interpretation. - External medical records reviewed. EMS run sheet was reviewed. Patient was vitally stable and route. No medications were given prehospital. - EKG interpreted by myself showed atrial fibrillation. Rate 93 bpm. QTc 465. No acute ischemic changes. - Laboratory workup interpreted by myself showed normal WBC; stable electrolytes other than hypomagnesemia; normal troponin - CT head wo contrast negative for acute pathology - CT cervical spine wo contrast negative - CT facial bones showed depressed fracture of the frontal left maxilla and bilateral nasal bones. Also noted to have a fracture of the anterior bony nasal septum. - Discussed case with oral surgeon, Dr. Ornelas, who recommended antibiotic use and follow up in clinic. - Nursing attempted to get the patient up to ambulate him for discharge, but the patient required 2 nurses to help keep him upright and also his cane. - Patient given dose of augmentin in ER. - Discussion was had with manager medicare marketing about patient's case and need for admission - Hospitalist consulted for admission - [facility] ASSESSMENT AND PLAN: Diagnosis: Fall from standing; closed nasal bone fracture; fracture of maxillary sinus; ambulatory dysfunction; periorbital ecchymosis of the left eye Plan: Admit Past Med/Surg History Medical History (Updated 05/17/23 @ 15:16 by Leslie Pelayo MD) Diabetes type 2, controlled Seizure disorder (01/2019) Weakness Vomiting Tobacco use disorder Vomiting COPD (chronic obstructive pulmonary disease) SOB (shortness of breath) Fever Chewing tobacco use History of basal cell carcinoma (BCC) of skin (05/2020) Hypoxia Pneumonia Cerebral cavernoma Chronic pulmonary aspiration History of sinusitis History of acute bronchitis with bronchospasm Osteoarthritis Anxiety Tremor HANDS CAD (coronary artery disease) Seizure 01/29/19 - X2 ON THAT DAY AND WAS ADMITTED AND STARTED ON [place] AND NO SEIZURE SINCE Abdominal aortic aneurysm (AAA), 30-34 mm diameter Arteriosclerotic coronary artery disease Benign prostatic hyperplasia with urinary obstruction Depression Dyslipidemia Hypertension Hypothyroidism (acquired) Mild cognitive impairment Osteoporosis Type 2 diabetes mellitus Vitamin B12 deficiency Vitamin D deficiency TIA (transient ischemic attack) 2017 X 1 AND NONE SINCE Paroxysmal atrial fibrillation DX [address] [place] Atrial flutter DX [address] CUELLAR IN [place] Asthma Surgical History Presence of Watchman left atrial appendage closure device (06/24/22) S/P Mohs surgery for basal cell carcinoma History of colonoscopy History of lung biopsy (03/27/19) Navigational Bronchoscopy with ICG Dye, Robotic Right Video Assisted Thoracoscopy with Right Lower Lobe Wedge Resection with Mediastinal Lymphadenectomy and Lymph Node Biopsy Dr. Lynn 03/27/19 Hx of cardiac cath 2017 -- HEART CATH WITH STENT [address] [facility] WITH DR CUELLAR LAST SEEN 12/20/2018 History of anesthesia reaction states "stopped breathing during MOHS procedure at the [facility] [place] H/O 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 Family History Father Heart disease Other COPD (chronic obstructive pulmonary disease) Depression Family history non-contributory Denies family history of Ovarian cancer Prostate cancer Coronary heart disease Myocardial infarction Breast cancer Seizure Lung cancer Colorectal cancer Social History Smoking Status: Never smoker Tobacco Type: Cigarettes Age Started Using Tobacco: 18; Age Quit Using Tobacco: 33; packs per day: 2; Cigarettes Per Day: 20-40; Second Hand Exposure: No; Do You Dip or Chew Tobacco: Yes; Hx Alcohol Use: No Hx Substance Use: No Preferred Language: Afghan Communication Ability: Impaired Visual Impairment: No Limitations Hearing Ability: Use of Hearing Aid Truant Officer Required: No Beliefs That Will Affect Care: None marital status: Current Living Situation: Spouse Current Living Situation Comment: 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 occupational status: retired 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, 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[employer] ([place]) How many Children do You have: 3 Feels Safe at Home: Yes Childhood Exposure to Second-Hand Smoke: Yes Diet: regular Diet Comment: regular caffeine: No during the past year weight has: remained stable Dental Care, Regularly: No Physical Activity Frequency: Does not Exercise Seatbelt Use: never Sunscreen Use: Yes Assistive Devices: Cane and Walker Allergies Allergies Allergy/AdvReac Type Severity Reaction Status Date / Time pollen extracts Allergy Mild CONGESTION Verified 03/20/23 10:11 No Known Drug Allergies Allergy Unknown Unknown Unverified 03/20/23 10:11 Home Meds Home Medications Medication Instructions Recorded Confirmed calcium carbonate 600 mg-vitamin 1 tab PO HS 01/16/19 03/20/23 D3 10 mcg (400 unit) tablet cyanocobalamin (vitamin B-12) 1,000 mcg PO QAM 11/07/19 03/20/23 1,000 mcg tablet (Vitamin B-12) aspirin 81 mg tablet,delayed 81 mg PO QAM 02/26/21 03/20/23 release guaifenesin 600 mg tablet, 1,200 mg PO Q12 PRN cough 07/11/22 03/20/23 extended release 12 hr (Mucinex) Previous Rx's Medication Instructions Recorded atorvastatin 40 mg tablet (Lipitor) 40 mg PO HS #90 tabs 06/06/22 levothyroxine 50 mcg tablet 50 mcg PO DAILY #90 tabs 10/07/22 sertraline 100 mg tablet 100 mg PO QAM #90 tabs 12/02/22 metoprolol tartrate 25 mg tablet 25 mg PO QAM #90 tabs 01/12/23 fluticasone fur. 100 mcg-umeclid 1 inh inhalation QAM #180 ea 01/19/23 62.5 mcg-vilant 25 mcg inhalat.powder (Trelegy Ellipta) montelukast 10 mg tablet 10 mg PO HS #90 tabs 01/27/23 levetiracetam 500 mg tablet 1,000 mg (2 x 500 mg) PO BID 90 03/17/23 (Keppra) days #360 tabs lisinopril 5 mg tablet 5 mg PO DAILY #90 tabs 03/20/23 metformin 850 mg tablet 850 mg PO DAILY #90 tabs 03/20/23 pantoprazole 40 mg tablet,delayed 40 mg PO DAILY #90 tabs 03/20/23 release diltiazem HCl 120 mg 120 mg PO HS #90 caps 03/23/23 capsule,extended release 24 hr Results & Data (ED) Vital Signs Vital Signs - 24 hr 05/17/23 11:14 05/17/23 11:30 05/17/23 11:31 Temperature 36.6 C Temperature Source Oral Pulse Rate 104 H 89 Pulse Rate [Apical] Pulse Rhythm Irregular Pulse Rhythm [Apical] Respiratory Rate 20 18 Respiratory Effort / Characteristics Non-Labored Respiratory Depth Normal Blood Pressure 143/87 H Blood Pressure [Right Arm] Blood Pressure Mean 105 Blood Pressure Mean [Right Arm] Blood Pressure Position [Right Arm] Pulse Oximetry 97 98 94 Oxygen Delivery Method Room Air Room Air Room Air Sepsis Recent Fever Within 48 Hours No Sepsis New/Unexplained Change in Mental Status No Sepsis Action Taken by Nursing No Action Required 05/17/23 12:18 05/17/23 14:00 05/17/23 15:07 Temperature Temperature Source Pulse Rate 88 Pulse Rate [Apical] 79 69 Pulse Rhythm Pulse Rhythm [Apical] Irregular Respiratory Rate 18 16 Respiratory Effort / Characteristics Non-Labored Non-Labored Spontaneous Respiratory Depth Normal Normal Blood Pressure Blood Pressure [Right Arm] 149/102 H 138/92 Blood Pressure Mean Blood Pressure Mean [Right Arm] 117 107 Blood Pressure Position [Right Arm] Lying Pulse Oximetry 98 94 Oxygen Delivery Method Room Air Room Air Sepsis Recent Fever Within 48 Hours Sepsis New/Unexplained Change in Mental Status Sepsis Action Taken by Nursing Laboratory Data 05/17/23 11:23 05/17/23 11:23 Lab Results 05/17/23 05/17/23 Range/Units 11:23 11:29 WBC 9.03 (4.8-10.8) K/ul RBC 4.26 L (4.70-6.10) M/uL Hgb 11.1 L (14.0-18.0) g/dl POC Hgb 11.9 L (14.0-18.0) g/dl Hct 34.8 L (42.0-52.0) % POC Hct 35 L (42-52) % MCV 81.7 (80.0-100.0) fL MCH 26.1 (25.0-34.0) pg MCHC 31.9 L (32.0-36.0) g/dL RDW Std Deviation 54.4 H (36.4-46.3) fL RDW Coeff of Ashu 18.2 H (11.5-14.5) % Plt Count 212 (130-400) K/uL MPV 10.2 (9.4-12.4) fL Immature Gran % (Auto) 0.3 % Neut % (Auto) 74.5 % Lymph % (Auto) 14.0 % [place] % (Auto) 7.4 % Eos % (Auto) 3.0 % Baso % (Auto) 0.8 % Neut # (Auto) 6.73 H (1.40-6.50) K/uL Lymph # (Auto) 1.26 (1.20-3.40) K/uL [place] # (Auto) 0.67 H (0.11-0.59) K/uL Eos # (Auto) 0.27 (0.00-0.50) K/uL Baso # (Auto) 0.07 (0.00-0.20) K/uL Immature Gran # (Auto) 0.03 (0.01-0.20) K/uL PT 11.4 (9.0-12.0) Seconds INR 1.0 (0.9-1.1) POC Sodium 141 (135-144) mmol/L Sodium 138 (136-145) mmol/L POC Potassium 4.1 (3.3-5.0) mmol/L Potassium 4.0 (3.5-5.1) mmol/L POC Chloride 102 (101-112) mmol/L Chloride 104 (98-107) mmol/L Carbon Dioxide 27 (21-32) mmol/L POC Total CO2 23 L (24-31) mmol/L Anion Gap 7 (3-11) POC Anion Gap 20.0 (16-25) mmol/L POC BUN 18 (7-18) mg/dl BUN 17 (6-23) mg/dl Creatinine 0.91 (0.6-1.4) mg/dl POC Creatinine 0.9 (0.6-1.3) mg/dl Est Cr Clr Drug Dosing 57.6 ml/min Est GFR ( Amer) 91.3 ml/min Est GFR (Non-Af Amer) 78.8 ml/min BUN/Creatinine Ratio 18.7 (10-20) Glucose 152 H (70-99(Fasting)) mg/dl POC Glucose (other) 159 H (70-99) mg/dl Calcium 9.3 (8.6-10.3) mg/dl POC Ioniz Calcium Bhaskar 1.21 (1.12-1.32) mmol/l Magnesium 1.6 L (1.7-2.4) mg/dl Total Bilirubin 0.4 (0.2-1.0) mg/dl AST 15 (13-39) U/L ALT 10 (7-52) U/L Alkaline Phosphatase 94 (34-104) U/L Troponin I High Sens 7.7 (0-20) pg/ml Total Protein 7.9 (6.0-8.3) gm/dl Albumin 4.2 (3.4-5.0) gm/dl Globulin 3.7 (2.5-4.0) gm/dl Albumin/Globulin Ratio 1.1 (0.9-2) Administered Medications Discontinued Medications Amoxicillin/Clavulanate Potassium (Amoxicillin/Clavulanate 875 Mg Tab) 1 tab PO NOW ONE; Protocol Stop: 05/17/23 13:29 Last Admin: 05/17/23 15:09 Dose: 1 tab Documented By: BENNETT Imaging Data Radiologist's Impression: Cervical Spine CT 05/17/23 11:[address] DOSE: 1313.96 mGy.cm HISTORY: fall from standing; on ASA TECHNIQUE: Multiaxial CT images of the cervical spine were performed and reformatted in the sagittal and coronal plane without the use of contrast. A dose lowering technique was utilized adhering to the principles of ALARA. COMPARISON: Cervical spine CT 10/14/2022. FINDINGS: No fractures. No subluxation. Prevertebral soft tissues and the C1-C2 interval are intact. No pneumothorax. Acute on chronic paranasal sinusitis as noted. C3 sclerotic focus, unchanged. This favors a bone island. Advanced degenerative changes again noted within the cervical spine. IMPRESSION: No fractures within the cervical spine. ACT 112: Negative or not required by law. Electronically signed by: Reagan Villanueva M.D. 05/17/2023 12:[address] 05/17/23 11:26 CT SCAN OF THE FACIAL BONES WITHOUT IV CONTRAST CLINICAL HISTORY: Fall. COMPARISON STUDY: CT of the brain dated 10/14/2022. TECHNIQUE: High-resolution CT scan of the facial bones is performed. Images are reviewed in the axial, sagittal, and coronal planes. IV contrast was not administered for this examination. A dose lowering technique was utilized adhering to the principles of ALARA. FINDINGS: The skeletal structures are heterogeneously osteopenic. There is a depressed fracture of the left frontal process of the maxilla. There are comminuted bilateral nasal bone fractures with depression on the right. There is also likely fracture of the anterior bony nasal septum.. No additional facial bone fracture is seen. The bony orbits are intact and the orbital contents are within normal limits noting bilateral ocular lens implants. The zygomatic arches and pterygoid plates are preserved. The mandible is intact. Degenerative change is noted in the temporomandibular joints. A tooth fragment with a large dental rajinder is present within the left posterior mandible. The patient is otherwise edentulous. There are no layering blood products within the paranasal sinuses. There is complete opacification of the frontal and ethmoid sinuses. There is noted to be opacification of the sphenoid sinuses. Moderate mucosal thickening or air-fluid levels is noted within the maxillary antra. Thickening and sclerosis of the sinus olivas indicates chronicity. The mastoid air cells are well pneumatized. Cerumen is noted in the external auditory canals. The visualized calvarium and upper cervical spine are maintained. Partially imaged brain parenchyma is within normal limits. There is left. Orbital and facial soft tissue contusion. A metallic foreign body is present at the dermal surface of the left cheek as seen on image #47 of 71. Atherosclerotic calcification is noted in the carotid bulbs. IMPRESSION: 1. There is a depressed fracture of the left frontal process of the maxilla, as well as bilateral nasal bone fractures. There may also be fracture of the anterior bony nasal septum. 2. No additional facial bone fracture is seen. 3. There is left periorbital and facial soft tissue contusion. A small foreign body is noted at the dermal surface of the left cheek. 4. Pansinus disease as above. 5. A tooth fragment with a large dental rajinder is present within the left posterior mandible. The patient is otherwise edentulous. ACT 112: Negative or not required by law. Electronically signed by: Eze Chairez M.D. 05/17/2023 12:[address] 05/17/23 11:26 CT OF THE HEAD WITHOUT CONTRAST CLINICAL HISTORY: fall from standing; on ASA COMPARISON STUDY: MRI of the brain January 26, 2022. Head CT February 25, 2023. TECHNIQUE: Helical axial images of the head were obtained without IV contrast. Automated exposure control was utilized for the study. A dose lowering technique was utilized adhering to the principles of ALARA. FINDINGS: No acute intracranial hemorrhage, midline shift or mass effect is present. The ventricular system is stable. White matter hypodensities are unchanged and favor small vessel disease. The basal cisterns are patent. No extra-axial collections are present. 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 There are no findings to suggest acute dural sinus thrombosis or acute territorial infarct. No acute calvarial fracture. Left facial contusion is noted. Left nasal bone fractures are better depicted on the facial bone CT which will be reported separately. Extensive sinus opacification is noted. This has progressed since prior CT. The frontal, ethmoid and right sinuses are opacified. There are air-fluid levels within the maxillary sinuses and partial opacification of the left sphenoid sinus. IMPRESSION: 1. No acute intracranial findings. 2. No calvarial fracture. 3. Acute displaced left nasal bone fractures better depicted on the facial bone CT will be reported separately. Left facial contusion. 4. Findings suggestive of acute on chronic pansinusitis. ACT 112: Negative or not required by law. Electronically signed by: Kevin Hernández M.D. 05/17/2023 12:26 PM Discharge Plan Visit Data Chief Complaint: Fall Stated Complaint: FALL, FACIAL INJURY ED Provider: Leslie Pelayo Discharge Problem: Fall from standing, Closed fracture nasal bone, Fracture of maxillary sinus, Periorbital ecchymosis of left eye, Ambulatory dysfunction Patient Disposition: Home - Self-Care Discharge Instructions Activity Restrictions/Additional Instructions: Your workup in the emergency department showed that you do have bilateral nasal bone fractures. You are also noted to have a depressed fracture of your left maxillary sinus. Please take the antibiotics as prescribed. Please call Dr. Ornelas's clinic (oral/plastic surgeon) to schedule follow-up. Please return to the emergency department if you develop lightheadedness or dizziness, headache, changes in vision, numbness or tingling or weakness in your extremities, or any new or worsening symptoms. Strict sinus precautions: no nose blowing, no straws, open mouth sneezing only, do not plug nose, no aggressive spitting, sleep with head slightly elevated for a MINIMUM OF 3 WEEKS Forms Stand Alone Forms: My [facility], Important Visit Information Prescriptions Prescriptions: No Action atorvastatin [Lipitor] 40 mg tablet 40 mg PO HS Qty: 90 3RF levothyroxine 50 mcg tablet 50 mcg PO DAILY Qty: 90 3RF sertraline 100 mg tablet 100 mg PO QAM Qty: 90 2RF metoprolol tartrate 25 mg tablet 25 mg PO QAM Qty: 90 1RF Trelegy Ellipta 100-62.5-25 mcg blister with device 1 inh INHALATION QAM Qty: 180 1RF montelukast 10 mg tablet 10 mg PO HS Qty: 90 1RF diltiazem HCl 120 mg capsule,extended release 24hr 120 mg PO HS Qty: 90 1RF calcium carbonate-vitamin D3 600 mg(1,500mg) -400 unit tablet 1 tab PO HS guaifenesin [Mucinex] 600 mg tablet extended release 12hr 1,200 mg PO Q12 PRN (Reason: cough) pantoprazole 40 mg tablet,delayed release (DR/EC) 40 mg PO DAILY Qty: 90 2RF lisinopril 5 mg tablet 5 mg PO DAILY Qty: 90 2RF metformin 850 mg tablet 850 mg PO DAILY Qty: 90 1RF levetiracetam [Keppra] 500 mg tablet 1,000 mg PO BID 90 Days Qty: 360 3RF cyanocobalamin (vitamin B-12) [Vitamin B-12] 1,000 mcg tablet 1,000 mcg PO QAM aspirin 81 mg Tablet,Delayed Release (Dr/Ec) 81 mg PO QAM Referrals Referrals: Lorna Tucker DO [Primary Care Provider] - Yinka Ornelas, LUIS A [Physician] -
[2023-05-17 11:46] LABS: Basophils # (auto) 0.07 K/uL (0.00-0.20); Basophils % (auto) 0.8 %; Eosinophils # (auto) 0.27 K/uL (0.00-0.50); Hematocrit (blood only) 34.8 % (42.0-52.0); Hemoglobin 11.1 g/dl (14.0-18.0); Immature Granulocytes # (auto) 0.03 K/uL (0.01-0.20); Immature Granulocytes % (auto) 0.3 %; Lymphocytes # (auto) 1.26 K/uL (1.20-3.40); Mean Corpuscular Hemoglobin 26.1 pg (25.0-34.0); Mean Corpuscular Hgb Conc 31.9 g/dL (32.0-36.0); Mean Corpuscular Volume 81.7 fL (80.0-100.0); Mean Platelet Volume 10.2 fL (9.4-12.4); Monocytes # (auto) 0.67 K/uL (0.11-0.59); Monocytes % (auto) 7.4 %; Neutrophils # (auto) 6.73 K/uL (1.40-6.50); Neutrophils % (auto) 74.5 %; Platelet Count 212 K/uL (130-400); RDW Coefficient of Variation 18.2 % (11.5-14.5); RDW Standard Deviation 54.4 fL (36.4-46.3); Red Blood Count 4.26 M/uL (4.70-6.10); White Blood Count 9.03 K/ul (4.8-10.8)
[2023-05-17 11:57] LABS: iSTAT Creatinine 0.9 mg/dl (0.6-1.3); iSTAT Hemoglobin 11.9 g/dl (14.0-18.0); iSTAT Ionized Calcium 1.21 mmol/l (1.12-1.32); iSTAT Potassium 4.1 mmol/L (3.3-5.0)
[2023-05-17 12:02] LABS: Albumin Globulin Ratio 1.1 (0.9-2); Albumin Level 4.2 gm/dl (3.4-5.0); BUN Creatinine Ratio 18.7 (10-20); Bilirubin,Total 0.4 mg/dl (0.2-1.0); Calcium 9.3 mg/dl (8.6-10.3); Creatinine Clr Calc Pharmacy 57.6 ml/min; Est GFR (African American) 91.3 ml/min; Est GFR (Non-African American) 78.8 ml/min; Globulin 3.7 gm/dl (2.5-4.0); Magnesium 1.6 mg/dl (1.7-2.4); Total Protein 7.9 gm/dl (6.0-8.3)
[2023-05-17 12:07] LABS: Troponin I High Sensitivity 7.7 pg/ml (0-20)
[2023-05-17 12:14] LABS: Prothrombin Time 11.4 Seconds (9.0-12.0)
--- NOTE | 2023-05-17 12:28 | CT Scan Report ---
CT OF THE HEAD WITHOUT CONTRAST CLINICAL HISTORY: fall from standing; on ASA COMPARISON STUDY: MRI of the brain January 26, 2022. Head CT February 25, 2023. TECHNIQUE: Helical axial images of the head were obtained without IV contrast. Automated exposure con trol was utilized for the study. A dose lowering technique was utilized adhering to the principles o f ALARA. FINDINGS: No acute intracranial hemorrhage, midline shift or mass effect is present. The ventricular system is stable. White matter hypodensities are unchanged and favor small vessel disease. The basal cisterns are patent. No extra-axial collections are present. Old infarct within the left cerebellar h emisphere is unchanged. There are no findings to suggest acute dural sinus thrombosis or acute territ orial infarct. No acute calvarial fracture. Left facial contusion is noted. Left nasal bone fractures are better depicted on the facial bone CT which will be reported separately. Extensive sinus opacifi cation is noted. This has progressed since prior CT. The frontal, ethmoid and right sinuses are opaci fied. There are air-fluid levels within the maxillary sinuses and partial opacification of the left s phenoid sinus. IMPRESSION: 1. No acute intracranial findings. 2. No calvarial fracture. 3. Acute displaced left nasal bone fractures better depicted on the facial bone CT will be reported s eparately. Left facial contusion. 4. Findings suggestive of acute on chronic pansinusitis. ACT 112: Negative or not required by law. Electronically signed by: Kevin Hernández M.D. 05/17/2023 12:26 PM
--- NOTE | 2023-05-17 12:40 | CT Scan Report ---
CT SCAN OF THE FACIAL BONES WITHOUT IV CONTRAST CLINICAL HISTORY: Fall. COMPARISON STUDY: CT of the brain dated 10/14/2022. TECHNIQUE: High-resolution CT scan of the facial bones is performed. Images are reviewed in the axia l, sagittal, and coronal planes. IV contrast was not administered for this examination. A dose lower ing technique was utilized adhering to the principles of ALARA. FINDINGS: The skeletal structures are heterogeneously osteopenic. There is a depressed fracture of th e left frontal process of the maxilla. There are comminuted bilateral nasal bone fractures with depre ssion on the right. There is also likely fracture of the anterior bony nasal septum.. No additional f acial bone fracture is seen. The bony orbits are intact and the orbital contents are within normal li mits noting bilateral ocular lens implants. The zygomatic arches and pterygoid plates are preserved. The mandible is intact. Degenerative change is noted in the temporomandibular joints. A tooth fragmen t with a large dental rajinder is present within the left posterior mandible. The patient is otherwise e dentulous. There are no layering blood products within the paranasal sinuses. There is complete opaci fication of the frontal and ethmoid sinuses. There is noted to be opacification of the sphenoid sinus es. Moderate mucosal thickening or air-fluid levels is noted within the maxillary antra. Thickening a nd sclerosis of the sinus olivas indicates chronicity. The mastoid air cells are well pneumatized. Cer umen is noted in the external auditory canals. The visualized calvarium and upper cervical spine are maintained. Partially imaged brain parenchyma is within normal limits. There is left. Orbital and fac ial soft tissue contusion. A metallic foreign body is present at the dermal surface of the left cheek as seen on image #47 of 71. Atherosclerotic calcification is noted in the carotid bulbs. IMPRESSION: 1. There is a depressed fracture of the left frontal process of the maxilla, as well as bilateral rashid al bone fractures. There may also be fracture of the anterior bony nasal septum. 2. No additional facial bone fracture is seen. 3. There is left periorbital and facial soft tissue contusion. A small foreign body is noted at the d ermal surface of the left cheek. 4. Pansinus disease as above. 5. A tooth fragment with a large dental rajinder is present within the left posterior mandible. The august ent is otherwise edentulous. ACT 112: Negative or not required by law. Electronically signed by: Eze Chairez M.D. 05/17/2023 12:37 PM
--- NOTE | 2023-05-17 13:00 | CT Scan Report ---
CERVICAL SPINE CT CT DOSE: 1313.96 mGy.cm HISTORY: fall from standing; on ASA TECHNIQUE: Multiaxial CT images of the cervical spine were performed and reformatted in the sagittal and coronal plane without the use of contrast. A dose lowering technique was utilized adhering to th e principles of ALARA. COMPARISON: Cervical spine CT 10/14/2022. FINDINGS: No fractures. No subluxation. Prevertebral soft tissues and the C1-C2 interval are intact. No pneumothorax. Acute on chronic paranasal sinusitis as noted. C3 sclerotic focus, unchanged. This f avors a bone island. Advanced degenerative changes again noted within the cervical spine. IMPRESSION: No fractures within the cervical spine. ACT 112: Negative or not required by law. Electronically signed by: Reagan Villanueva M.D. 05/17/2023 12:59 PM
[2023-05-17] MEDS ORDERED: AMOXICILLIN/CLAVULANATE 875 MG TAB PO ONE (13:28)
--- NOTE | 2023-05-17 13:50 | Electrocardiogram Report ---
Test Reason : Blood Pressure : / mmHG Vent. Rate : 093 BPM Atrial Rate : 000 BPM P-R Int : 000 ms QRS Dur : 094 ms QT Int : 374 ms P-R-T Axes : 000 037 039 degrees QTc Int : 465 ms Poor data quality, interpretation may be adversely affected Atrial fibrillation Nonspecific ST and T wave abnormality Abnormal ECG When compared with ECG of 25-FEB-2023 22:17, Nonspecific T wave abnormality, worse in Inferior leads Nonspecific T wave abnormality now evident in Lateral leads Confirmed by Paolo Fontenot ([id number]) on 05/17/2023 1:49:39 PM Referred By: Confirmed By:Paolo Fontenot
--- NOTE | 2023-05-17 15:00 | History & Physical Report ---
Date of Service May 17, 2023 Assessment & Plan (1) Fall: Plan: -Admit to med/tele -Currently hemodynamically stable and stable on RA -Patient experienced a mechanical fall last night while walking in the family room -Did hit his head but did not lose consciousness -CT of the head and face show the following: >depressed fracture of the left frontal process of the maxilla, as well as bilateral nasal bone fractures >acute on chronic pansinusitis. -No other acute trauma on exam -ED staff spoke with Dr. Ornelas of ENT, recommends abx for new facial bone fractures and outpatient follow up in their clinic -Patient will be evaluated by PT/OT and will likely need inpatient rehab on discharge, family is in agreement -Will obtain chest xray with his recent fall -Fall precautions, bed alarm, aspiration precautions -PRN Tyelnol for pain -BL BOBBI's for DVT PPX with recent trauma -HH/DMII diet with 2gm sodium restriction and minced/moist texture -AM CBC, BMP, mag (2) Closed fracture nasal bone: Plan: -S/p one dose of Augmentin in the ED -Will continue BID Augmentin for now -Please ensure the patient has outpatient ENT follow up scheduled prior to discharge (3) Hypomagnesemia: Plan: -Mag of 1.6 today -likely due to poor oral intake -Will give 2 bags of 1gm IV mag sulfate on admission -Monitor on tele -Monitor am mag level (4) Acute sinusitis: Plan: -Noted on CT head today -Continue Augmentin to cover facial fractures and sinusitis (5) Fracture of maxillary sinus: Plan: -See nasal bone fracture plan (6) Seizure disorder: Plan: -Continue BID keppra (7) Diabetes type 2, controlled: Plan: -Hole metformin -Monitor BSG ACHS, goal is 110-160 -Will start CF of 50 achs for now as he is insulin naive -AM A1c ordered -Adjust regimen as needed (8) Atrial flutter: Plan: -Patient is in rate controlled atrial fibrillation today -Has a hx of atrial flutter and is on diltiazem and metoprolol -Has been off anticoagulation due to multiple falls in the past -Would continue to hold anticoagulation at this time with his high fall and bleeding risk -Continue to monitor on tele (9) CAD (coronary artery disease): Plan: -Denies chest pain -High sen trop today WNL -Continue aspirin and metoprolol (10) TIA (transient ischemic attack): Plan: -Conitue aspirin (11) Asthma: Plan: -Stable on RA -Lungs are clear -Continue Trelegy -Incentive spirometry (12) Hypothyroidism (acquired): Plan: -Continue levothyroxine Plan The patient was discussed with Dr. Campoverde at the time of the exam History of Present Illness Chief Complaint: Fall at home Primary Care Provider: Lorna Tucker DO Jose J is an 82 year old male with a PMH significant for DMII, Dementia, seizure disorder, atrial flutter (No longer on anticoagulation), CAD, hypothyroidism, and previous TIA who presented to the [facility] ED on 05/17/22 via EMS after sustaining a fall at home last night. He was noted to be tachycardic at 103 on arrival but otherwise stable. Labs were significant for a mag of 1.6. CT of the head wo con was read as "1. No acute intracranial findings. 2. No calvarial fracture. 3. Acute displaced left nasal bone fractures better depicted on the facial bone CT will be reported separately. Left facial contusion. 4. Findings suggestive of acute on chronic pansinusitis.". CT of the fac ewo con was read as "1. There is a depressed fracture of the left frontal process of the maxilla, as well as bilateral nasal bone fractures. There may also be fracture of the anterior bony nasal septum. 2. No additional facial bone fracture is seen. 3. There is left periorbital and facial soft tissue contusion. A small foreign body is noted at the dermal surface of the left cheek. 4. Pansinus dise ase as above. 5. A tooth fragment with a large dental rajinder is present within the left posterior mandible. The patient is otherwise edentulous.". CT of the cervical spine was read as negative for acute findings. The ED staff spoke with ENT who recommended antibiotics for now, they will see him in the outpatient clinic on discharge. The patient was being prepared for discharge but quickly failed his ambulatory trial and required assistance of 3 nurses. We were asked to admit the patient for placement. At the time of the exam the patient was sitting in bed in no acute distress. History was very limited from the patient due to his baseline dementia. He states that he fell last night because he tripped on his own feet while walking. He states that his called EMS this am. He denies any complaints at this time including headache, changes in vision, hearing, taste, smell, chest pain, SOB, abd pain,nausea, vomiting, diarrhea, dysuria, hematuria, melena, and LE pain. I spoke with his /POA, Teresa Zurita [phone], to obtain more information. She states that she witnessed his fall last night. The patient is supposed to use his can when ambulating but frequently forgets. He was walking in their family room last night when he tripped on the carpet and fell. She believes he hit his head on either an oxygen tank or the coffee table. He did not lose consciousness and is only on aspirin at this time. He was able to get himself up last night but using a chair for assistance. I confirmed his medications with his , she confirms that he had all of his am medications today. Their daughter is a nurse practitioner and told his to call EMS this am when she heard about the fall. We discussed code status, she explains that he is a DNR/DNI with his progressive dementia and chronic comorbidities. Please refer to Dr. Campoverde's attestation for any changes to the treatment plan Allergies Allergy/AdvReac Type Severity Reaction Status Date / Time pollen extracts Allergy Mild CONGESTION Verified 03/20/23 10:11 No Known Drug Allergies Allergy Unknown Unknown Unverified 03/20/23 10:11 Home Medications Medication Instructions Recorded Confirmed Type cyanocobalamin (vitamin B-12) 1,000 mcg PO QAM 11/07/19 05/17/23 History 1,000 mcg tablet (Vitamin B-12) aspirin 81 mg tablet,delayed 81 mg PO QAM 02/26/21 05/17/23 History release atorvastatin 40 mg tablet (Lipitor) 40 mg PO HS #90 tabs 06/06/22 05/17/23 Rx guaifenesin 600 mg tablet, 1,200 mg PO Q12 PRN cough 07/11/22 05/17/23 History extended release 12 hr (Mucinex) levothyroxine 50 mcg tablet 50 mcg PO DAILY #90 tabs 10/07/22 05/17/23 Rx sertraline 100 mg tablet 100 mg PO QAM #90 tabs 07/28/23 01/10/24 Rx metoprolol tartrate 25 mg tablet 25 mg PO QAM #90 tabs 01/12/23 05/17/23 Rx fluticasone fur. 100 mcg-umeclid 1 inh inhalation QAM #180 ea 01/19/23 05/17/23 Rx 62.5 mcg-vilant 25 mcg inhalat.powder (Trelegy Ellipta) montelukast 10 mg tablet 10 mg PO HS #90 tabs 01/27/23 05/17/23 Rx levetiracetam 500 mg tablet 1,000 mg (2 x 500 mg) PO BID 90 03/17/23 05/17/23 Rx (Keppra) days #360 tabs metformin 850 mg tablet 850 mg PO DAILY #90 tabs 03/20/23 05/17/23 Rx pantoprazole 40 mg tablet,delayed 40 mg PO DAILY #90 tabs 03/20/23 05/17/23 Rx release diltiazem HCl 120 mg 120 mg PO HS #90 caps 03/23/23 05/17/23 Rx capsule,extended release 24 hr lisinopril 5 mg tablet 5 mg PO HS 05/17/23 05/17/23 History Past Med/Surg History Medical History (Updated 05/17/23 @ 16:00 by Glenn Jane PA-C) Diabetes type 2, controlled Seizure disorder (01/2019) Weakness Vomiting Tobacco use disorder Vomiting COPD (chronic obstructive pulmonary disease) SOB (shortness of breath) Fever Chewing tobacco use History of basal cell carcinoma (BCC) of skin (05/2020) Hypoxia Pneumonia Cerebral cavernoma Chronic pulmonary aspiration History of sinusitis History of acute bronchitis with bronchospasm Osteoarthritis Anxiety Tremor HANDS CAD (coronary artery disease) Seizure 01/29/19 - X2 ON THAT DAY AND WAS ADMITTED AND STARTED ON KEPPRA AND NO SEIZURE SINCE Abdominal aortic aneurysm (AAA), 30-34 mm diameter Arteriosclerotic coronary artery disease Benign prostatic hyperplasia with urinary obstruction Depression Dyslipidemia Hypertension Hypothyroidism (acquired) Mild cognitive impairment Osteoporosis Type 2 diabetes mellitus Vitamin B12 deficiency Vitamin D deficiency TIA (transient ischemic attack) 2017 X 1 AND NONE SINCE Paroxysmal atrial fibrillation DX [address] [place]LL[place] IN [place] Atrial flutter DX [address] CUELLAR IN [place] Asthma Surgical History Presence of Watchman left atrial appendage closure device (06/24/22) S/P Mohs surgery for basal cell carcinoma History of colonoscopy History of lung biopsy (03/27/19) Navigational Bronchoscopy with ICG Dye, Robotic Right Video Assisted Thoracoscopy with Right Lower Lobe Wedge Resection with Mediastinal Lymphadenectomy and Lymph Node Biopsy Dr. Lynn 03/27/19 Hx of cardiac cath 2017 -- HEART CATH WITH STENT 6 [facility] WITH DR CUELLAR LAST SEEN 12/20/2018 History of anesthesia reaction states "stopped breathing during MOHS procedure at [place] [facility] [place]/O 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 Family History Father Heart disease Other COPD (chronic obstructive pulmonary disease) Depression Family history non-contributory Denies family history of Ovarian cancer Prostate cancer Coronary heart disease Myocardial infarction Breast cancer Seizure Lung cancer Colorectal cancer Social History Smoking Status: Former smoker Tobacco Type: Cigarettes Age Started Using Tobacco: 18; Age Quit Using Tobacco: 33; packs per day: 2; Cigarettes Per Day: 20-40; Second Hand Exposure: No; Do You Dip or Chew Tobacco: Yes; Hx Alcohol Use: No Hx Substance Use: No Preferred Language: Yi Communication Ability: Effective Visual Impairment: No Limitations Hearing Ability: Use of Hearing Aid Pediatric Immunologist Required: No Beliefs That Will Affect Care: None marital status: Current Living Situation: Spouse Current Living Situation Comment: in house with current occupational status: retired 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, 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[employer] (ir[employer]) How many Children do You have: 3 Feels Safe at Home: Yes Childhood Exposure to Second-Hand Smoke: Yes Diet: regular Diet Comment: regular caffeine: No during the past year weight has: remained stable Dental Care, Regularly: No Physical Activity Frequency: Does not Exercise Seatbelt Use: never Sunscreen Use: Yes Assistive Devices: Cane, Oxygen - at Night and Walker Physical Exam Physical Exam: Physical Exam: General: In no acute distress, stated age, chronically ill appearing but non- toxic HEENT: Patient with fractured nasal bone and bruising of the nose and left face, no scleral icterus, pupils around round, symmetrical, and reactive to light, dry mucus membranes, trachea midline, no thyromegaly Chest/Pulm: No respiratory distress, symmetrical chest expansion, clear breath sounds throughout Cardiac: RRR, no murmurs noted Abdomen: Negative for ascites and bruising, normoactive bowel sounds, soft, non-tender to palpation throughout Musculoskeletal: Facial trauma as described above, patient without trauma or tenderness to palpation of the scalp, cervical spine, thoracic spine, lumbar spine, chest, abdomen, BL hips, and BL LE's Extremities: Radial, dorsalis pedis, and posterior tibial pulses are intact and symmetrical, no edema noted in the BL LE's Skin: As described above, otherwise not other acute trauma Neuro: Alert and oriented to person onlyt, CN II-XII tested and intact, no tremors noted Psych: No acute distress, pleasantly confused, calm and cooperative during the exam Results & Data Results & Data Vital Signs (Past 12 Hours) Vital Signs Temp Pulse Pulse Resp BP BP Pulse Ox 05/17/23 14:00 79 18 149/102 H 98 05/17/23 12:18 88 05/17/23 11:31 89 18 94 05/17/23 11:30 98 05/17/23 11:14 36.6 C 104 H 20 143/87 H 97 O2 Del Method 05/17/23 14:00 Room Air 05/17/23 12:18 05/17/23 11:31 Room Air 05/17/23 11:30 Room Air 05/17/23 11:14 Room Air Laboratory Results Abnormal lab results 05/17/23 05/17/23 Range/Units 11:23 11:29 RBC 4.26 L (4.70-6.10) M/uL Hgb 11.1 L (14.0-18.0) g/dl POC Hgb 11.9 L (14.0-18.0) g/dl Hct 34.8 L (42.0-52.0) % POC Hct 35 L (42-52) % MCHC 31.9 L (32.0-36.0) g/dL RDW Std Deviation 54.4 H (36.4-46.3) fL RDW Coeff of Ashu 18.2 H (11.5-14.5) % Neut # (Auto) 6.73 H (1.40-6.50) K/uL [place] # (Auto) 0.67 H (0.11-0.59) K/uL POC Total CO2 23 L (24-31) mmol/L Glucose 152 H (70-99(Fasting)) mg/dl POC Glucose (other) 159 H (70-99) mg/dl Magnesium 1.6 L (1.7-2.4) mg/dl Diagnostic Findings Cervical Spine CT 05/17/23 11:[address] DOSE: 1313.96 mGy.cm HISTORY: fall from standing; on ASA TECHNIQUE: Multiaxial CT images of the cervical spine were performed and reformatted in the sagittal and coronal plane without the use of contrast. A dose lowering technique was utilized adhering to the principles of ALARA. COMPARISON: Cervical spine CT 10/14/2022. FINDINGS: No fractures. No subluxation. Prevertebral soft tissues and the C1-C2 interval are intact. No pneumothorax. Acute on chronic paranasal sinusitis as noted. C3 sclerotic focus, unchanged. This favors a bone island. Advanced degenerative changes again noted within the cervical spine. IMPRESSION: No fractures within the cervical spine. ACT 112: Negative or not required by law. Electronically signed by: Reagan Villanueva M.D. 05/17/2023 12:[address] 05/17/23 11:26 CT SCAN OF THE FACIAL BONES WITHOUT IV CONTRAST CLINICAL HISTORY: Fall. COMPARISON STUDY: CT of the brain dated 10/14/2022. TECHNIQUE: High-resolution CT scan of the facial bones is performed. Images are reviewed in the axial, sagittal, and coronal planes. IV contrast was not administered for this examination. A dose lowering technique was utilized adhering to the principles of ALARA. FINDINGS: The skeletal structures are heterogeneously osteopenic. There is a depressed fracture of the left frontal process of the maxilla. There are comminuted bilateral nasal bone fractures with depression on the right. There is also likely fracture of the anterior bony nasal septum.. No additional facial bone fracture is seen. The bony orbits are intact and the orbital contents are within normal limits noting bilateral ocular lens implants. The zygomatic arches and pterygoid plates are preserved. The mandible is intact. Degenerative change is noted in the temporomandibular joints. A tooth fragment with a large dental rajinder is present within the left posterior mandible. The patient is otherwise edentulous. There are no layering blood products within the paranasal sinuses. There is complete opacification of the frontal and ethmoid sinuses. There is noted to be opacification of the sphenoid sinuses. Moderate mucosal thickening or air-fluid levels is noted within the maxillary antra. Thickening and sclerosis of the sinus olivas indicates chronicity. The mastoid air cells are well pneumatized. Cerumen is noted in the external auditory canals. The visualized calvarium and upper cervical spine are maintained. Partially imaged brain parenchyma is within normal limits. There is left. Orbital and facial soft tissue contusion. A metallic foreign body is present at the dermal surface of the left cheek as seen on image #47 of 71. Atherosclerotic calcification is noted in the carotid bulbs. IMPRESSION: 1. There is a depressed fracture of the left frontal process of the maxilla, as well as bilateral nasal bone fractures. There may also be fracture of the anterior bony nasal septum. 2. No additional facial bone fracture is seen. 3. There is left periorbital and facial soft tissue contusion. A small foreign body is noted at the dermal surface of the left cheek. 4. Pansinus disease as above. 5. A tooth fragment with a large dental rajinder is present within the left posterior mandible. The patient is otherwise edentulous. ACT 112: Negative or not required by law. Electronically signed by: Eze Chairez M.D. 05/17/2023 12:[address] 05/17/23 11:26 CT OF THE HEAD WITHOUT CONTRAST CLINICAL HISTORY: fall from standing; on ASA COMPARISON STUDY: MRI of the brain January 26, 2022. Head CT February 25, 2023. TECHNIQUE: Helical axial images of the head were obtained without IV contrast. Automated exposure control was utilized for the study. A dose lowering technique was utilized adhering to the principles of ALARA. FINDINGS: No acute intracranial hemorrhage, midline shift or mass effect is present. The ventricular system is stable. White matter hypodensities are unchanged and favor small vessel disease. The basal cisterns are patent. No extra-axial collections are present. 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 There are no findings to suggest acute dural sinus thrombosis or acute territorial infarct. No acute calvarial fracture. Left facial contusion is noted. Left nasal bone fractures are better depicted on the facial bone CT which will be reported separately. Extensive sinus opacification is noted. This has progressed since prior CT. The frontal, ethmoid and right sinuses are opacified. There are air-fluid levels within the maxillary sinuses and partial opacification of the left sphenoid sinus. IMPRESSION: 1. No acute intracranial findings. 2. No calvarial fracture. 3. Acute displaced left nasal bone fractures better depicted on the facial bone CT will be reported separately. Left facial contusion. 4. Findings suggestive of acute on chronic pansinusitis. ACT 112: Negative or not required by law. Electronically signed by: Kevin Hernández M.D. 05/17/2023 12:26 PM ECG Additional Comments: Poor data quality, interpretation may be adversely affected Atrial fibrillation Nonspecific ST and T wave abnormality Abnormal ECG When compared with ECG of 25-FEB-2023 22:17, Nonspecific T wave abnormality, worse in Inferior leads Nonspecific T wave abnormality now evident in Lateral leads Confirmed by Paolo Fontenot ([id number]) on 05/17/2023 1:49:39 PM Code Status & VTE Plan Code Status DNR/DNI VTE Prophylaxis Plan VTE Prophylaxis will be ordered: Yes Supervising Physician Co-Signing Physician Notes I personally saw and examined the patient. I verified all varela points and agree with Glenn Jane PA-C with the following exceptions and/or additions: 82 year old male presents to the ER following a fall the previous night. He denies any concerns at this time and in no pain. Unable to give me any history regarding the fall. History from taken by PA as above. O/E Ecchymosis surrounding left eye, Alert but not orientated to place or time, HS irregular rhythm, regular rate, no murmurs, Chest CTAB, Abdo SNT A/P Depressed fracture of the left frontal process of the maxilla, as well as bilateral nasal bone fractures - Start Augmentin, follow up with ENT as outpatient Fall - PT/OT, likely need for placement. History of recurrent falls, no new acute pathology suspected but likely requires rehabilitation. Suspect sinus disease from fracture rather than cause of any decline. PG Care Time/CCT Total # of Minutes Spent Total Time Spent with Patient: Total time spent is greater than 50% in coordination of care (as documented) at patient's floor/unit and/or counseling patient: Coding [place] [address] INT INP/OBS CARE 2/55MIN Patient Type Established Medical Decision Making Moderate Complexity Diagnoses Fall W19.XXXA Encounter type: initial encounter Closed fracture nasal bone S02.2XXA Hypomagnesemia E83.42 Acute sinusitis J01.90 Fracture of maxillary sinus S02.401A Seizure disorder G40.909 Diabetes type 2, controlled E11.9 Atrial flutter, unspecified type I48.92 Atrial flutter type: unspecified Coronary artery disease involving [place] coronary artery of [place] heart without angina pectoris I25.10 Associated angina: without angina Coronary Disease-Associated Artery/Lesion type: [place] artery [place] vs. transplanted heart: [place]cock heart TIA (transient ischemic attack) G45.9 Asthma J45.909 Hypothyroidism (acquired) E03.9 (1) Fall Encounter type: initial encounter Qualified Code(s): W19.XXXA - Unspecified fall, initial encounter (8) Atrial flutter Atrial flutter type: unspecified Qualified Code(s): I48.92 - Unspecified atrial flutter (9) CAD (coronary artery disease) Associated angina: without angina Coronary Disease-Associated Artery/Lesion type: [place] artery [place] vs. transplanted heart: [place] heart Qualified Code(s): I25.10 - Atherosclerotic heart disease of [place] coronary artery without angina pectoris
[2023-05-17] MEDS ORDERED: LACTATED RINGER'S 500 ML IV ONE (15:28)
[2023-05-17] MEDS ORDERED: ACETAMINOPHEN 325 MG TAB PO PRN (15:30)
[2023-05-17] MEDS ORDERED: GLUCOSE 40% GEL 15 GM TUBE PO PRN (16:05)
[2023-05-17] MEDS ORDERED: GLUCOSE 10 TAB/TUBE PO PRN (16:05)
[2023-05-17] MEDS ORDERED: GLUCAGON FOR INJ 1 MG VIAL SQ PRN (16:05)
[2023-05-17] MEDS ORDERED: DEXTROSE 50% 50 ML SYRINGE IV PRN (16:05)
[2023-05-17] MEDS ORDERED: CARBOHYDRATES FOR HYPOGLYCEMIA PO PRN (16:05)
[2023-05-17 16:13] LABS: Appearance Urine Clear (Clear); Bacteria Urine Automated Negative (Negative); Bilirubin Urine Negative (Negative); Blood Urine Negative (Negative); Color Urine Yellow; Epithelial Cell Urine Auto 0-5 /lpf (0-5); Glucose Urine UA Negative (Negative); Ketones Urine Negative (Negative); Leukocyte Esterase Urine Negative (Negative); Nitrite Urine Negative (Negative); Protein Urine 1+ (Negative); RBC Urine Automated 0-4 /hpf (0-4); Specific Gravity Urine 1.018 (1.000-1.030); Urobilinogen Urine Negative (Negative); pH Urine 6.5 (4.5-7.5)
[2023-05-17] MEDS: MAGNESIUM SULFATE / D5W 1 GM/100 ML BAG IV SCH ×2 (16:22→17:16)
--- NOTE | 2023-05-17 16:47 | XRay Report ---
XR chest 1V portable CLINICAL HISTORY: Fall. COMPARISON STUDY: Chest CT September 02, 2021. Chest radiograph February 25, 2023. FINDINGS: Lung volumes are normal. Lungs are clear. There is no pneumothorax or pleural effusion. Car diac size is stable. Mediastinal contours are normal. There is no evidence for pulmonary edema. IMPRESSION: No acute cardiopulmonary findings. No change in appearance of the chest. ACT 112: Negative or not required by law. Electronically signed by: Kevin Hernández M.D. 05/17/2023 4:46 PM
[2023-05-17 17:16] LABS: Influenza A virus by PCR Negative (Neg); Influenza B virus by PCR Negative (Neg); RSV by PCR Negative (Neg); SARS CoV2 RNA(COVID-19) Ceph NEGATIVE (Negative)
[2023-05-17] MEDS ORDERED: guaiFENesin 600 MG TABCR PO PRN (17:47)
[2023-05-17] MEDS: INSULIN ASPART PER UNIT CHARGE SC SCH ×2 (19:05→20:41)
[2023-05-17] MEDS: AMOXICILLIN/CLAVULANATE 875 MG TAB PO SCH (20:42)
[2023-05-17] MEDS: dilTIAZem HCL 120 MG CAPCR PO SCH (20:42)
[2023-05-17] MEDS: levETIRAcetam 500 MG TAB PO SCH (20:42)
[2023-05-17] MEDS: lisinopril 5 MG TAB PO SCH (20:42)
[2023-05-18] MEDS: LEVOTHYROXINE SODIUM 50 MCG TABLET PO SCH (05:50)
[2023-05-18 06:26] LABS: Basophils # (auto) 0.08 K/uL (0.00-0.20); Basophils % (auto) 1.2 %; Eosinophils # (auto) 0.29 K/uL (0.00-0.50); Eosinophils % (auto) 4.2 %; Hematocrit (blood only) 33.3 % (42.0-52.0); Hemoglobin 10.5 g/dl (14.0-18.0); Immature Granulocytes # (auto) 0.01 K/uL (0.01-0.20); Immature Granulocytes % (auto) 0.1 %; Lymphocytes # (auto) 1.07 K/uL (1.20-3.40); Lymphocytes % (auto) 15.4 %; Mean Corpuscular Hgb Conc 31.5 g/dL (32.0-36.0); Mean Corpuscular Volume 82.4 fL (80.0-100.0); Mean Platelet Volume 10.2 fL (9.4-12.4); Monocytes % (auto) 10.1 %; Neutrophils # (auto) 4.78 K/uL (1.40-6.50); Platelet Count 197 K/uL (130-400); RDW Coefficient of Variation 17.9 % (11.5-14.5); RDW Standard Deviation 53.4 fL (36.4-46.3); Red Blood Count 4.04 M/uL (4.70-6.10); White Blood Count 6.93 K/ul (4.8-10.8)
[2023-05-18 06:53] LABS: Calcium 9.1 mg/dl (8.6-10.3); Creatinine Clr Calc Pharmacy 59.6 ml/min; Est GFR (African American) 87.8 ml/min; Est GFR (Non-African American) 75.7 ml/min; Magnesium 2.1 mg/dl (1.7-2.4); Potassium 3.9 mmol/L (3.5-5.1)
[2023-05-18 07:04] LABS: Estimated Average Glucose 146 mg/dl; Hemoglobin A1C 6.7 % (4.5-5.6)
[2023-05-18] MEDS: INSULIN ASPART PER UNIT CHARGE SC SCH ×4 (08:50→20:05)
[2023-05-18] MEDS: levETIRAcetam 500 MG TAB PO SCH ×2 (09:26→20:06)
[2023-05-18] MEDS: AMOXICILLIN/CLAVULANATE 875 MG TAB PO SCH ×2 (09:26→17:36)
[2023-05-18] MEDS: ASPIRIN 81 MG ECTAB PO SCH (09:27)
[2023-05-18] MEDS: UMECLIDINIUM/VILANTEROL 62.5/25MCG 7 PUFFS/INHALER INH SCH (09:27)
[2023-05-18] MEDS: SERTRALINE HCL 100 MG TABLET PO SCH (09:27)
[2023-05-18] MEDS: PANTOprazole 40 MG TAB PO SCH (09:27)
[2023-05-18] MEDS: METOPROLOL TARTRATE 25 MG TAB PO SCH (09:27)
[2023-05-18] MEDS: FLUTICASONE FUROATE 100MCG 14 PUFFS/INHALER INH SCH (09:27)
--- NOTE | 2023-05-18 10:24 | Hospitalist Progress Note ---
Date of Service May 18, 2023 Assessment & Plan (1) Fall: Plan: Presented with a mechanical fall while walking in the family room and tripping over the carpet -Did hit his head but did not lose consciousness -CT of the head and face show the following: >depressed fracture of the left frontal process of the maxilla, as well as bilateral nasal bone fractures >acute on chronic pansinusitis. -No other acute trauma on exam. Chest x-ray and head CT otherwise negative. CT cervical spine without acute issues. ECG with rate controlled atrial fibrillation but no significant arrhythmias on telemetry -ED staff spoke with Dr. Ornelas of [facility], recommends abx for new facial bone fractures and outpatient follow up in their clinic-he was started on Augmentin. He could also follow-up with ENT as an outpatient -Patient will be evaluated by PT/OT and will likely need inpatient rehab on discharge, family is in agreement -Fall precautions, bed alarm, aspiration precautions -PRN Tylenol for pain No further lab monitoring needed Needs rehab placement (2) Closed fracture nasal bone: Plan: -Will continue BID Augmentin for now -Please ensure the patient has outpatient ENT follow up scheduled prior to discharge (3) Hypomagnesemia: Plan: -Mag of 1.6 on admission-likely due to poor oral intake [place] normalized (4) Acute sinusitis: Plan: -Noted on CT head here-pansinusitis -Continue Augmentin to cover facial fractures and sinusitis (5) Fracture of maxillary sinus: Plan: -See nasal bone fracture plan (6) Seizure disorder: Plan: -Continue BID keppra No acute issues (7) Diabetes type 2, controlled: Plan: Continue to hold metformin -Monitor BSG ACHS, goal is 110-160 -Will start CF of 50 achs for now as he is insulin naive -Hemoglobin A1c well-controlled at 6.7% -Adjust regimen as needed (8) Atrial flutter: Plan: -Patient is in rate controlled atrial fibrillation on telemetry here -Has a hx of atrial flutter and is on diltiazem and metoprolol -Has been off anticoagulation due to multiple falls in the past -Would continue to hold anticoagulation at this time with his high fall and bleeding risk Can downgrade off telemetry (9) CAD (coronary artery disease): Plan: -Denies chest pain -High sen trop here WNL -Continue aspirin and metoprolol (10) TIA (transient ischemic attack): Plan: -Continue aspirin (11) Asthma: Plan: -Stable on RA -Lungs are clear -Continue Trelegy -Incentive spirometry (12) Hypothyroidism (acquired): Plan: -Continue levothyroxine TSH normal at 4.3 (13) HTN (hypertension), benign: Plan: Blood pressures are controlled Continue diltiazem, lisinopril, metoprolol Plan DVT prophylaxis-avoid chemical anticoagulants due to hematoma of the face. BOBBI rice ordered Disposition-medically stable for discharge, awaiting rehab placement-[facility] can likely take him tomorrow Case management involved Admission and Anticipated Discharge Date Admission Date: May 17, 2023 Subjective Patient has no complaints. He denies any pain in his nose or face. No headache. No nausea or vomiting. He cannot remember if he ate breakfast. No chest pain or shortness of breath. No pains anywhere else. When asked if I can see his legs, he says "only if I can see yours!" And then he laughs. Telemetry with atrial fibrillation, PVCs, rates controlled in the 80s to 90s Physical Exam Constitutional: WD/WN, vitals as above Eyes: EOM intact bilaterally (No pain with extraocular muscular testing) Periorbital ecchymosis on the left with bruising and significant edema of the left cheek No blood at the nasal passages and no nasal septum hematoma visualized No tenderness to palpation over the the face Respiratory: normal respiratory effort, lungs clear to auscultation Cardiovascular: Rate/Rhythm: regular rate and + irregularly irregular Heart Sounds: no murmur Extremities: no edema Gastrointestinal (Abdomen): normal bowel sounds, soft, nontender, no hepatosplenomegaly Psychiatric: Orientation: alert, oriented to person and cooperative Results & Data Results & Data Vital Signs (Past 12 Hours) Vital Signs Temp Pulse Pulse Resp BP Pulse Ox O2 Del Method 05/18/23 07:50 36.5 C 81 16 138/85 95 Room Air 05/18/23 06:00 81 05/18/23 00:03 79 05/17/23 22:28 36.6 C 76 18 164/74 H 95 Room Air Laboratory Results CBC, BMP, magnesium, hemoglobin A1c reviewed PG Care Time/CCT Total # of Minutes Spent Total Time Spent with Patient: Total time spent is greater than 50% in coordination of care (as documented) at patient's floor/unit and/or counseling patient: Coding Level of Care Code 01648 SUB INP/OBS CARE 2/35MIN Diagnoses Fall W19.XXXA Encounter type: initial encounter Closed fracture nasal bone S02.2XXA Hypomagnesemia E83.42 Acute sinusitis J01.90 Fracture of maxillary sinus S02.401A Seizure disorder G40.909 Diabetes type 2, controlled E11.9 Atrial flutter, unspecified type I48.92 Atrial flutter type: unspecified Coronary artery disease involving [place] coronary artery of [place] heart without angina pectoris I25.10 Associated angina: without angina Coronary Disease-Associated Artery/Lesion type: [place] artery [place] vs. transplanted heart: [place] heart TIA (transient ischemic attack) G45.9 Asthma J45.909 Hypothyroidism (acquired) E03.9 HTN (hypertension), benign I10 (1) Fall Encounter type: initial encounter Qualified Code(s): W19.XXXA - Unspecified fall, initial encounter (8) Atrial flutter Atrial flutter type: unspecified Qualified Code(s): I48.92 - Unspecified atrial flutter (9) CAD (coronary artery disease) Associated angina: without angina Coronary Disease-Associated Artery/Lesion type: [place] artery [place] vs. transplanted heart: [place] heart Qualified Code(s): I25.10 - Atherosclerotic heart disease of [place] coronary artery without angina pectoris
[2023-05-18] MEDS: lisinopril 5 MG TAB PO SCH (20:06)
[2023-05-18] MEDS: dilTIAZem HCL 120 MG CAPCR PO SCH (20:07)
[2023-05-18] MEDS ORDERED: ATORVASTATIN 40 MG TAB PO SCH (21:00)
[2023-05-18] MEDS ORDERED: MONTELUKAST SODIUM 10 MG TABLET PO SCH (21:00)
[2023-05-19] MEDS: LEVOTHYROXINE SODIUM 50 MCG TABLET PO SCH (05:47)
[2023-05-19] MEDS: PANTOprazole 40 MG TAB PO SCH (08:54)
[2023-05-19] MEDS: AMOXICILLIN/CLAVULANATE 875 MG TAB PO SCH (08:54)
[2023-05-19] MEDS: SERTRALINE HCL 100 MG TABLET PO SCH (08:54)
[2023-05-19] MEDS: levETIRAcetam 500 MG TAB PO SCH (08:54)
[2023-05-19] MEDS: METOPROLOL TARTRATE 25 MG TAB PO SCH (08:54)
[2023-05-19] MEDS: UMECLIDINIUM/VILANTEROL 62.5/25MCG 7 PUFFS/INHALER INH SCH (08:55)
[2023-05-19] MEDS: ASPIRIN 81 MG ECTAB PO SCH (08:55)
[2023-05-19] MEDS: FLUTICASONE FUROATE 100MCG 14 PUFFS/INHALER INH SCH (08:55)
--- NOTE | 2023-05-19 08:55 | Discharge Summary ---
Date of Service May 19, 2023 Admission HPI Per Admitting Provider Jose J is an 82 year old male with a PMH significant for DMII, Dementia, seizure disorder, atrial flutter (No longer on anticoagulation), CAD, hypothyroidism, and previous TIA who presented to the [facility] ED on 05/17/22 via EMS after sustaining a fall at home last night. He was noted to be tachycardic at 103 on arrival but otherwise stable. Labs were significant for a mag of 1.6. CT of the head wo con was read as "1. No acute intracranial findings. 2. No calvarial fracture. 3. Acute displaced left nasal bone fractures better depicted on the facial bone CT will be reported separately. Left facial contusion. 4. Fi ndings suggestive of acute on chronic pansinusitis.". CT of the fac ewo con was read as "1. There is a depressed fracture of the left frontal process of the maxilla, as well as bilateral nasal bone fractures. There may also be fracture of the anterior bony nasal septum. 2. No additional facial bone fracture is seen. 3. There is left periorbital and facial soft tissue contusion. A small foreign body is noted at the dermal surface of the left cheek. 4. Pansinus disease as above. 5. A tooth fragment with a large dental rajinder is present within the left posterior mandible. The patient is otherwise edentulous.". CT of the cervical spine was read as negative for acute findings. The ED staff spoke with ENT who recommended antibiotics for now, they will see him in the outpatient clinic on discharge. The patient was being prepared for discharge but quickly failed his ambulatory trial and required assistance of 3 nurses. We were asked to admit the patient for placement. At the time of the exam the patient was sitting in bed in no acute distress. History was very limited from the patient due to his baseline dementia. He states that he fell last night because he tripped on his own feet while walking. He states that his called EMS this am. He denies any complaints at this time including headache, changes in vision, hearing, taste, smell, chest pain, SOB, abd pain,nausea, vomiting, diarrhea, dysuria, hematuria, melena, and LE pain. I spoke with his /POA, Teresa Zurita [phone], to obtain more information. She states that she witnessed his fall last night. The patient is supposed to use his can when ambulating but frequently forgets. He was walking in their family room last night when he tripped on the carpet and fell. She believes he hit his head on either an oxygen tank or the coffee table. He did not lose consciousness and is only on aspirin at this time. He was able to get himself up last night but using a chair for assistance. I confirmed his medications with his , she confirms that he had all of his am medications today. Their daughter is a nurse practitioner and told his to call EMS this am when she heard about the fall. We discussed code status, she explains that he is a DNR/DNI with his progressive dementia and chronic comorbidities. Please refer to Dr. Campoverde's attestation for any changes to the treatment plan Principal Diagnosis Mechanical Fall, Facial Fracture, Sinusitis Discharge Exam General: A&Ox3. NAD. Cooperative. HEENT: Left periorbital, left maxillary, and left jaw contusion without crepitus. Improving from prior. Vision intact without field cuts. EOM intact without pain or entrapment. Pupils equal and reactive to light. Pulm: CTAB A&P. -wheezes, -rales, -rhonchi. Symmetrical chest rise. No increased work of breathing. No respiratory distress. Cardiac: RRR, -mrg. Radial pulses intact and symmetrical. Abdominal: Nontender, nondistended, soft. BS present. Discharge Data Allergies Allergy/AdvReac Type Severity Reaction Status Date / Time pollen extracts Allergy Mild CONGESTION Verified 03/20/23 10:11 No Known Drug Allergies Allergy Unknown Unknown Unverified 03/20/23 10:11 Consultations 05/17/23 14:58 ED Decision to Admit Stat Ordered Studies 05/17/23 11:26 CT cervical spine wo con Stat CT facial bones wo con Stat CT head/brain wo con Stat Hospital Course (1) Fall: Jose J is an 82-year-old male who presented for a fall with a facial injury and no loss of consciousness when he tripped over the carpet. No lightheadedness, dizziness, syncope, presyncope that contributed to his fall. No chest pain or chest pressure. CT showed no intracranial findings, but depressed fracture of left frontal process of the maxilla and bilateral nasal bone fractures in addition to acute on chronic pansinusitis. OMFS was consulted recommended antibiotic treatment and outpatient follow-up, no acute surgical intervention was recommended. Patient takes Eliquis for A-fib prophylaxis this was temporarily held. He was placed on Augmentin twice daily for 7-day course for superimposed sinusitis. He was clinically well and stable day of discharge and was discharged to [facility] with outpatient follow-up. To do as outpatient: 1. Complete 1 week of Augmentin for acute on chronic sinusitis complicated by facial fractures 2. Follow-up with [facility] for reevaluation 3. Eliquis discontinued one year prior, patient s/p Watchman device. No further anticoagulation. Last progress note copied below for completion. Presented with a mechanical fall while walking in the family room and tripping over the carpet -Did hit his head but did not lose consciousness -CT of the head and face show the following: >depressed fracture of the left frontal process of the maxilla, as well as bilateral nasal bone fractures >acute on chronic pansinusitis. -No other acute trauma on exam. Chest x-ray and head CT otherwise negative. CT cervical spine without acute issues. ECG with rate controlled atrial fibrillation but no significant arrhythmias on telemetry -ED staff spoke with Dr. Ornelas of [facility], recommends abx for new facial bone fractures and outpatient follow up in their clinic-he was started on Augmentin. He could also follow-up with ENT as an outpatient -Patient will be evaluated by PT/OT and will likely need inpatient rehab on discharge, family is in agreement -Fall precautions, bed alarm, aspiration precautions -PRN Tylenol for pain No further lab monitoring needed Needs rehab placement (2) Closed fracture nasal bone: -Will continue BID Augmentin for now -Please ensure the patient has outpatient ENT follow up scheduled prior to discharge (3) Hypomagnesemia: -Mag of 1.6 on admission-likely due to poor oral intake [place] normalized (4) Acute sinusitis: -Noted on CT head here-pansinusitis -Continue Augmentin to cover facial fractures and sinusitis (5) Fracture of maxillary sinus: -See nasal bone fracture plan (6) Seizure disorder: -Continue BID keppra No acute issues (7) Diabetes type 2, controlled: Continue to hold metformin -Monitor BSG ACHS, goal is 110-160 -Will start CF of 50 achs for now as he is insulin naive -Hemoglobin A1c well-controlled at 6.7% -Adjust regimen as needed (8) Atrial flutter: -Patient is in rate controlled atrial fibrillation on telemetry here -Has a hx of atrial flutter and is on diltiazem and metoprolol -Has been off anticoagulation due to multiple falls in the past - Clarified during admisison patient is s/p Watchman device, no further anticoag at this time Can downgrade off telemetry (9) CAD (coronary artery disease): -Denies chest pain -High sen trop here WNL -Continue aspirin and metoprolol (10) TIA (transient ischemic attack): -Continue aspirin (11) Asthma: -Stable on RA -Lungs are clear -Continue Trelegy -Incentive spirometry (12) Hypothyroidism (acquired): -Continue levothyroxine TSH normal at 4.3 (13) HTN (hypertension), benign: Blood pressures are controlled Continue diltiazem, lisinopril, metoprolol Plan DVT prophylaxis-avoid chemical anticoagulants due to hematoma of the face. BOBBI rice ordered Total Time Total Time Spent Total Time Spent (In Minutes): Time spend day of discharge 31 minutes including direct patient care, documentation, review of labs and images, and coordination of care. Discharge Plan Discharge Items Patient Disposition: Transfer Inpatient Rehab Fac Reason For Visit: FALL, NASAL BONE FRACTURE, WEAKNESS Discharge Diagnosis: Mechanical Fall, Facial Fracture, Sinusitis Activity: Per Instructions section Non-emergency contact: Primary Care Provider and Surgeon Call non-emergency contact if: you have any medication questions, your symptoms worsen and your pain is not controlled Follow-up/Referrals: Lorna Tucker DO [Primary Care Provider] - Yinka Ornelas, LUIS A [Physician] - 05/31/23 2:45 pm Diet: Heart Healthy Addtl Attending Provider Instructions: You were seen for a mechanical fall when you tripped over a carpet and hit your head but did not lose consciousness. A CAT scan shows fracture of the left frontal facial bone, bilateral nasal bones, and also revealed acute on chronic sinusitis. The CT of your head did not show any intracranial/brain bleeding or abnormality. You reported that you have been rate controlled with A-fib, and take Eliquis for stroke prevention. It was clarified that your eliquis was discontinued in the past year after a Watchman device was placed. Your case was reviewed with oral maxillofacial surgery Dr. Ornelas who will see you for follow-up as an outpatient. It is recommended that you take Augmentin 875-125 mg by mouth twice daily for for 1 week for acute sinusitis and superimposed facial fractures. You were previously on eliquis. This was discontinued after having a Watchman procedure in the past. No further anticoagulation is indicated at this time. An appointment has been scheduled for you with OMFS (oral maxillofacial surgery) Dr. Ornelas, and with your PCP as noted. If you need to cancel or change those appointments please contact the providers office directly at the phone number provided above. If you develop any new or worsening symptoms including fever, chills, sweats, chest pain, chest pressure, difficulty breathing, uncontrolled nausea/vomiting, rash, wheezing, passing out or nearly passing out, bleeding, black/bloody bowel movements, or other new or concerning symptoms please call your primary care physician, or call 911 for re-evaluation in the emergency department if you are very concerned. Pending Studies at Discharge: No Stand-Alone Forms: My [facility] Skilled Items Patient informed of condition?: Yes DNR: Yes Discharge Level of Care: Acute rehab Communicable Disease: No Discharge Prognosis: Stable Lines: None Urinary Catheter: No Medications and DC Order Prescriptions: New amoxicillin-pot clavulanate 875-125 mg Tablet 1 tab PO BIDM 6 Days Qty: 12 0RF Continued atorvastatin [Lipitor] 40 mg tablet 40 mg PO HS Qty: 90 3RF levothyroxine 50 mcg tablet 50 mcg PO DAILY Qty: 90 3RF sertraline 100 mg tablet 100 mg PO QAM Qty: 90 2RF metoprolol tartrate 25 mg tablet 25 mg PO QAM Qty: 90 1RF Trelegy Ellipta 100-62.5-25 mcg blister with device 1 inh INHALATION QAM Qty: 180 1RF montelukast 10 mg tablet 10 mg PO HS Qty: 90 1RF diltiazem HCl 120 mg capsule,extended release 24hr 120 mg PO HS Qty: 90 1RF guaifenesin [Mucinex] 600 mg tablet extended release 12hr 1,200 mg PO Q12 PRN (Reason: cough) pantoprazole 40 mg tablet,delayed release (DR/EC) 40 mg PO DAILY Qty: 90 2RF metformin 850 mg tablet 850 mg PO DAILY Qty: 90 1RF levetiracetam [Keppra] 500 mg tablet 1,000 mg PO BID 90 Days Qty: 360 3RF cyanocobalamin (vitamin B-12) [Vitamin B-12] 1,000 mcg tablet 1,000 mcg PO QAM lisinopril 5 mg tablet 5 mg PO HS aspirin 81 mg Tablet,Delayed Release (Dr/Ec) 81 mg PO QAM Discharge Orders: Discharge Order (Routine); Ordered 05/19/23 Ordered By: Sekou Salcedo/Other Patient Handouts: High Blood Sugar (Hyperglycemia), Hypoglycemia (Low Blood Sugar), Managing Type 2 Diabetes Admission Data Admit Date/Time: 05/17/23 15:27 Attending Provider: Sekou Lopez Admit Provider: Tristan Campoverde Primary Care Provider: Lorna Tucker Other Providers: Tristan Campoverde; Rigo Jimenes [facility] Coding Level of Care Code 43080 INP/OBS DISCH >30 MIN Diagnoses Fall W19.XXXA Encounter type: initial encounter Closed fracture nasal bone S02.2XXA Hypomagnesemia E83.42 Acute sinusitis J01.90 Fracture of maxillary sinus S02.401A Seizure disorder G40.909 Diabetes type 2, controlled E11.9 Atrial flutter, unspecified type I48.92 Atrial flutter type: unspecified Coronary artery disease involving [place] coronary artery of [place] heart without angina pectoris I25.10 Associated angina: without angina Coronary Disease-Associated Artery/Lesion type: [place] artery [place] vs. transplanted heart: [place] heart TIA (transient ischemic attack) G45.9 Asthma J45.909 Hypothyroidism (acquired) E03.9 HTN (hypertension), benign I10
[2023-05-19] MEDS: INSULIN ASPART PER UNIT CHARGE SC SCH ×2 (08:59→13:21)
[2023-05-19] MEDS ORDERED: CYANOCOBALAMIN (B-12) 500 MCG TABLET PO SCH (09:00)
== END 2023-05-19 16:24 | DRG 155 ==
LOC: ED 11:04 → SUATTDRO 15:27 → 2W 15:27 → 3E 05-18 14:19

== ENCOUNTER 2023-07-16 17:56 | Inpatient (IN) ==
--- NOTE | 2023-07-16 18:30 | Emergency Department Note ---
History of Present Illness General Chief complaint: Back Injury/Pain Time Seen by Provider: 07/16/23 17:57 History of Present Illness Provider complaint: Fall weakness back pain Onset (ago): day(s) 2 Location: back Maximum Pain Intensity: 5 82-year-old male presents emergency department for fall weakness and back pain. EMS reports that the patient fell on Monday and was seen here and discharged back home. Patient has history of dementia. Home Medications Medication Instructions Recorded Confirmed Type cyanocobalamin (vitamin B-12) 1,000 mcg PO QAM 11/07/19 07/14/23 History 1,000 mcg tablet (Vitamin B-12) aspirin 81 mg tablet,delayed 81 mg PO QAM 02/26/21 07/14/23 History release guaifenesin 600 mg tablet, 1,200 mg PO Q12 PRN cough 07/11/22 07/14/23 History extended release 12 hr (Mucinex) levothyroxine 50 mcg tablet 50 mcg PO DAILY #90 tabs 10/07/22 07/14/23 Rx sertraline 100 mg tablet 100 mg PO QAM #90 tabs 12/02/22 07/14/23 Rx fluticasone fur. 100 mcg-umeclid 1 inh inhalation QAM #180 ea 01/19/23 07/14/23 Rx 62.5 mcg-vilant 25 mcg inhalat.powder (Trelegy Ellipta) montelukast 10 mg tablet 10 mg PO HS #90 tabs 01/27/23 07/14/23 Rx levetiracetam 500 mg tablet 1,000 mg (2 x 500 mg) PO BID 90 03/17/23 07/14/23 Rx (Keppra) days #360 tabs metformin 850 mg tablet 850 mg PO DAILY #90 tabs 03/20/23 07/14/23 Rx pantoprazole 40 mg tablet,delayed 40 mg PO DAILY #90 tabs 03/20/23 07/14/23 Rx release diltiazem HCl 120 mg 120 mg PO HS #90 caps 03/23/23 07/14/23 Rx capsule,extended release 24 hr lisinopril 5 mg tablet 5 mg PO HS 05/17/23 07/14/23 History atorvastatin 40 mg tablet (Lipitor) 40 mg PO HS #90 tabs 05/31/23 07/14/23 Rx metoprolol tartrate 25 mg tablet 25 mg PO QAM #90 tabs 07/11/23 07/14/23 Rx Allergies Allergy/AdvReac Type Severity Reaction Status Date / Time pollen extracts Allergy Mild CONGESTION Verified 06/21/23 16:36 No Known Drug Allergies Allergy Unknown Unknown Unverified 06/21/23 16:36 Past Med/Surg History Medical History HTN (hypertension), benign Fall from standing Fall Diabetes type 2, controlled Seizure disorder (01/2019) Weakness Vomiting Tobacco use disorder Vomiting COPD (chronic obstructive pulmonary disease) SOB (shortness of breath) Fever Chewing tobacco use History of basal cell carcinoma (BCC) of skin (05/2020) Hypoxia Pneumonia Cerebral cavernoma Chronic pulmonary aspiration History of sinusitis History of acute bronchitis with bronchospasm Osteoarthritis Anxiety Tremor HANDS CAD (coronary artery disease) Seizure 01/29/19 - X2 ON THAT DAY AND WAS ADMITTED AND STARTED ON [place] AND NO SEIZURE SINCE Abdominal aortic aneurysm (AAA), 30-34 mm diameter Arteriosclerotic coronary artery disease Benign prostatic hyperplasia with urinary obstruction Depression Dyslipidemia Hypertension Hypothyroidism (acquired) Mild cognitive impairment Osteoporosis Type 2 diabetes mellitus Vitamin B12 deficiency Vitamin D deficiency TIA (transient ischemic attack) 2017 X 1 AND NONE SINCE Paroxysmal atrial fibrillation DX [address] [place]UELLAR IN [place] Atrial flutter DX [address] CUELLAR IN [place] Asthma Surgical History Presence of Watchman left atrial appendage closure device (06/24/22) S/P Mohs surgery for basal cell carcinoma History of colonoscopy History of lung biopsy (03/27/19) Navigational Bronchoscopy with ICG Dye, Robotic Right Video Assisted Thoracoscopy with Right Lower Lobe Wedge Resection with Mediastinal Lymphadenectomy and Lymph Node Biopsy Dr. Lynn 03/27/19 Hx of cardiac cath 2017 -- HEART CATH WITH STENT 6 TOTAL [facility] WITH DR CUELLAR LAST SEEN 12/20/2018 History of anesthesia reaction states "stopped breathing during MOHS procedure at the [facility] H/O 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 Family History Father Heart disease Other COPD (chronic obstructive pulmonary disease) Depression Family history non-contributory Denies family history of Ovarian cancer Prostate cancer Coronary heart disease Myocardial infarction Breast cancer Seizure Lung cancer Colorectal cancer Social History Smoking Status: Never smoker Tobacco Type: Cigarettes Age Started Using Tobacco: 18; Age Quit Using Tobacco: 33; packs per day: 2; Cigarettes Per Day: 20-40; Second Hand Exposure: No; Do You Dip or Chew Tobacco: Yes; Hx Alcohol Use: No Hx Substance Use: No Preferred Language: Vincentian Communication Ability: Effective Visual Impairment: No Limitations Hearing Ability: Use of Hearing Aid Non Acoustic Operator Required: No Beliefs That Will Affect Care: None marital status: Current Living Situation: Spouse Current Living Situation Comment: in house with current occupational status: retired 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, 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[employer] ([employer]) How many Children do You have: 3 Feels Safe at Home: Yes Childhood Exposure to Second-Hand Smoke: Yes Diet: regular Diet Comment: regular caffeine: No during the past year weight has: remained stable Dental Care, Regularly: No Physical Activity Frequency: Does not Exercise Seatbelt Use: never Sunscreen Use: Yes Assistive Devices: Cane, Oxygen - at Night and Walker Physical Exam Vital Signs Vital Signs - 24 hr 07/16/23 18:03 07/16/23 18:04 07/16/23 19:09 Temperature 37.0 C Temperature Source Oral Pulse Rate 89 81 85 Pulse Rhythm Regular Irregular Pulse Strength Normal Respiratory Rate 20 18 Respiratory Effort / Characteristics Non-Labored Spontaneous Respiratory Depth Normal Respiratory Pattern Regular Blood Pressure 145/103 H Blood Pressure Mean 117 Blood Pressure Position Sitting Pulse Oximetry 93 94 Oxygen Delivery Method Room Air Room Air Sepsis Recent Fever Within 48 Hours No Sepsis New/Unexplained Change in Mental Status No Sepsis Action Taken by Nursing No Action Required Physical Exam HENT: Exam performed. - Head: Normocephalic and atraumatic. EYES: Conjunctivae and EOM are normal. Pupils are equal, round, and reactive to light. Right eye exhibits no discharge. Left eye exhibits no discharge. No scleral icterus. NECK: Normal range of motion. Neck supple. No JVD present. No spinous process tenderness present. No tracheal deviation and normal range of motion present. CV: Normal rate, regular rhythm, normal heart sounds and intact distal pulses. There is no peripheral edema. Palpable radial pulses bue. PULM/CHEST: Effort normal and breath sounds normal. No respiratory distress. No stridor. He has no wheezes. He has no rales. ABD: The abdomen is soft. There is no tenderness. There is no rebound, no guarding MUSC/SKEL: Pelvis stable. No C, T, or L-spine tenderness. NEURO: Motor and sensation grossly intact. Course Course 1756: The patient was evaluated in room C9. A complete history and physical exam was performed Cardiac monitoring: An order was placed for continuous cardiac monitoring. The monitor shows a rate of 80 with sinus rhythm interpreted by me 1805: Called the patient's on the listed phone number in the chart [phone]. Stated that the patient fell on Monday and has not had any falls since then. The does corroborate that the patient was brought to the emergency department, but the states she is not sure if any x-rays or imaging was done as she was very unhappy that the patient was sent back in only 3 hours time back to the residence. I shared the that imaging was conducted by the physician who saw the patient on Monday and all of the imaging showed no traumatic injuries. The states that the patient has been having difficulty walking and is too weak to get out of bed. She states she is afraid he is going to fall and she has a surgical procedure scheduled for so she would not be able to help him. She brought her daughter Chau onto the phone also and after long discussion with the 2 of them it was thought that would be best to place the patient into a rehab facility after checking some studies in the emergency department today. Both Chau and the asked that I speak with the patient's other daughter Jessika who is a nurse practitioner. 1812: Spoke with Jessika [phone] who states she agrees that the patient needs to be admitted to a rehab facility and she prefers that the patient be admitted to [facility]. She states that the patient frequently does this, having falls and needing PT/OT to gain his strength back to return home. 1920: Vital signs stable. Labs and imaging within normal limits. [facility] Decision Making Laboratory Data Attestation: I reviewed the patient's lab results. 07/16/23 18:41 03/10/24 18:41 Lab Results 07/16/23 07/16/23 Range/Units 18:41 19:01 WBC 8.69 (4.8-10.8) K/ul RBC 4.41 L (4.70-6.10) M/uL Hgb 11.1 L (14.0-18.0) g/dl Hct 36.1 L (42.0-52.0) % MCV 81.9 (80.0-100.0) fL MCH 25.2 (25.0-34.0) pg MCHC 30.7 L (32.0-36.0) g/dL RDW Std Deviation 55.8 H (36.4-46.3) fL RDW Coeff of Ashu 18.7 H (11.5-14.5) % Plt Count 205 (130-400) K/uL MPV 10.0 (9.4-12.4) fL Immature Gran % (Auto) 0.2 % Neut % (Auto) 78.2 % Lymph % (Auto) 13.7 % Jessamine % (Auto) 6.9 % Eos % (Auto) 0.3 % Baso % (Auto) 0.7 % Neut # (Auto) 6.79 H (1.40-6.50) K/uL Lymph # (Auto) 1.19 L (1.20-3.40) K/uL Jessamine # (Auto) 0.60 H (0.11-0.59) K/uL Eos # (Auto) 0.03 (0.00-0.50) K/uL Baso # (Auto) 0.06 (0.00-0.20) K/uL Immature Gran # (Auto) 0.02 (0.01-0.20) K/uL Sodium 140 (136-145) mmol/L Potassium 4.3 (3.5-5.1) mmol/L Chloride 106 (98-107) mmol/L Carbon Dioxide 27 (21-32) mmol/L Anion Gap 7 (3-11) BUN 22 (6-23) mg/dl Creatinine 0.86 (0.6-1.4) mg/dl Est Cr Clr Drug Dosing 53.9 ml/min Est GFR ( Amer) 94.3 ml/min Est GFR (Non-Af Amer) 81.3 ml/min BUN/Creatinine Ratio 25.6 H (10-20) Glucose 160 H (70-99(Fasting)) mg/dl POC Glucose 174 H (70-99) mg/dl Calcium 9.1 (8.6-10.3) mg/dl Magnesium 1.7 (1.7-2.4) mg/dl Total Creatine Kinase 46 (30-223) U/L Urine Color Yellow Urine Appearance Clear (Clear) Urine pH 5.5 (4.5-7.5) Ur Specific Cumming 1.028 (1.000-1.030) Urine Protein 2+ H (Negative) Urine Glucose (UA) Negative (Negative) Urine Ketones Negative (Negative) Urine Blood Negative (Negative) Urine Nitrite Negative (Negative) Urine Bilirubin Negative (Negative) Urine Urobilinogen Negative (Negative) Ur Leukocyte Esterase Negative (Negative) Urine WBC (Auto) 1-5 (0-5) /hpf Urine RBC (Auto) 0-4 (0-4) /hpf U Hyaline Cast (Auto) 1-5 (0-5) /lpf U Epithel Cells (Auto) 5-10 H (0-5) /lpf Urine Bacteria (Auto) Negative (Negative) Imaging Data Radiologist's Impression: Head CT 07/16/23 18:14 CT head/brain wo con CLINICAL HISTORY: weakness Technique: Contiguous axial CT images of the head were acquired from the base of the skull to the vertex without intravenous contrast administration. Images were viewed in brain, subdural and bone windows. Automated dose lowering techniques and/or adjustment according to patient size were utilized for this exam. Comparison: Comparison is made to CT head 324 Findings: Areas of decreased attenuation are present in the periventricular and subcortical white matter bilaterally consistent with small vessel ischemic disease. Generalized cerebral atrophy with commensurate enlargement of the ventricles, sulci, and cisterns is also present. There is no acute intracranial hemorrhage or evidence of acute territorial infarction. No shift of the midline structures, mass effect, or extra-axial abnormalities are shown. Atherosclerotic calcifications are present in the intracranial segments of the internal carotid arteries. Focal encephalomalacia is seen in the left cerebellum. Bilateral maxillary and ethmoid air cell opacification is seen. Right frontal and sphenoid sinus thickening is seen. The orbits appear normal. There are no acute fractures of the calvaria or scalp swelling. Impression: 1. No acute intracranial hemorrhage, no evidence of acute territorial infarction or other acute intracranial disease process. 2. Sinus disease as above. ACT 112: Negative or not required by law. Electronically signed by: Serafin Chaidez M.D. 07/16/2023 7:10 PM [facility] Narrative 1757: The patient was evaluated in room C9. A complete history and physical exam was performed Cardiac monitoring: An order was placed for continuous cardiac monitoring. The monitor shows a rate of 80 with sinus rhythm interpreted by me 1805: Called the patient's on the listed phone number in the chart [phone]. Stated that the patient fell on Monday and has not had any falls since then. The does corroborate that the patient was brought to the emergency department, but the states she is not sure if any x-rays or imaging was done as she was very unhappy that the patient was sent back in only 3 hours time back to the residence. I shared the that imaging was conducted by the physician who saw the patient on Monday and all of the imaging showed no traumatic injuries. The states that the patient has been having difficulty walking and is too weak to get out of bed. She states she is afraid he is going to fall and she has a surgical procedure scheduled for so she would not be able to help him. She brought her daughter Chau onto the phone also and after long discussion with the 2 of them it was thought that would be best to place the patient into a rehab facility after checking some studies in the emergency department today. Both Chau and the asked that I speak with the patient's other daughter Jessika who is a nurse practitioner. 1812: Spoke with Jessika [phone] who states she agrees that the patient needs to be admitted to a rehab facility and she prefers that the patient be admitted to [facility]. She states that the patient frequently does this, having falls and needing PT/OT to gain his strength back to return home. 1920: Vital signs stable. Labs and imaging within normal limits. [facility] Impression & Plan Dementia, Weakness Discharge Plan Visit Data Chief Complaint: Back Injury/Pain ED Provider: Justino Palomares Discharge Problem: Dementia, Weakness Patient Disposition: Being Evaluated by Hospitalist Forms Stand Alone Forms: My [facility] Prescriptions Prescriptions: No Action levothyroxine 50 mcg tablet 50 mcg PO DAILY Qty: 90 3RF sertraline 100 mg tablet 100 mg PO QAM Qty: 90 2RF Trelegy Ellipta 100-62.5-25 mcg blister with device 1 inh INHALATION QAM Qty: 180 1RF montelukast 10 mg tablet 10 mg PO HS Qty: 90 1RF diltiazem HCl 120 mg capsule,extended release 24hr 120 mg PO HS Qty: 90 1RF atorvastatin [Lipitor] 40 mg tablet 40 mg PO HS Qty: 90 3RF metoprolol tartrate 25 mg tablet 25 mg PO QAM Qty: 90 1RF guaifenesin [Mucinex] 600 mg tablet extended release 12hr 1,200 mg PO Q12 PRN (Reason: cough) pantoprazole 40 mg tablet,delayed release (DR/EC) 40 mg PO DAILY Qty: 90 2RF metformin 850 mg tablet 850 mg PO DAILY Qty: 90 1RF levetiracetam [Keppra] 500 mg tablet 1,000 mg PO BID 90 Days Qty: 360 3RF cyanocobalamin (vitamin B-12) [Vitamin B-12] 1,000 mcg tablet 1,000 mcg PO QAM lisinopril 5 mg tablet 5 mg PO HS aspirin 81 mg Tablet,Delayed Release (Dr/Ec) 81 mg PO QAM Referrals Referrals: Lorna Tucker DO [Primary Care Provider] -
[2023-07-16 18:59] LABS: Appearance Urine Clear (Clear); Bacteria Urine Automated Negative (Negative); Bilirubin Urine Negative (Negative); Blood Urine Negative (Negative); Color Urine Yellow; Glucose Urine UA Negative (Negative); Ketones Urine Negative (Negative); Leukocyte Esterase Urine Negative (Negative); Nitrite Urine Negative (Negative); Protein Urine 2+ (Negative); RBC Urine Automated 0-4 /hpf (0-4); Specific Gravity Urine 1.028 (1.000-1.030); Urobilinogen Urine Negative (Negative); pH Urine 5.5 (4.5-7.5)
[2023-07-16 19:04] LABS: Basophils # (auto) 0.06 K/uL (0.00-0.20); Basophils % (auto) 0.7 %; Eosinophils # (auto) 0.03 K/uL (0.00-0.50); Eosinophils % (auto) 0.3 %; Hematocrit (blood only) 36.1 % (42.0-52.0); Hemoglobin 11.1 g/dl (14.0-18.0); Immature Granulocytes # (auto) 0.02 K/uL (0.01-0.20); Immature Granulocytes % (auto) 0.2 %; Lymphocytes # (auto) 1.19 K/uL (1.20-3.40); Lymphocytes % (auto) 13.7 %; Mean Corpuscular Hemoglobin 25.2 pg (25.0-34.0); Mean Corpuscular Hgb Conc 30.7 g/dL (32.0-36.0); Mean Corpuscular Volume 81.9 fL (80.0-100.0); Monocytes % (auto) 6.9 %; Neutrophils # (auto) 6.79 K/uL (1.40-6.50); Neutrophils % (auto) 78.2 %; Platelet Count 205 K/uL (130-400); RDW Coefficient of Variation 18.7 % (11.5-14.5); RDW Standard Deviation 55.8 fL (36.4-46.3); Red Blood Count 4.41 M/uL (4.70-6.10); White Blood Count 8.69 K/ul (4.8-10.8)
--- NOTE | 2023-07-16 19:13 | CT Scan Report ---
CT head/brain wo con CLINICAL HISTORY: weakness Technique: Contiguous axial CT images of the head were acquired from the base of the skull to the ethan ana maria without intravenous contrast administration. Images were viewed in brain, subdural and [facility]. Automated dose lowering techniques and/or adjustment according to patient size were utilized for this exam. Comparison: Comparison is made to CT head 324 Findings: Areas of decreased attenuation are present in the periventricular and subcortical white matter bilate rally consistent with small vessel ischemic disease. Generalized cerebral atrophy with commensurate e nlargement of the ventricles, sulci, and cisterns is also present. There is no acute intracranial hem orrhage or evidence of acute territorial infarction. No shift of the midline structures, mass effect, or extra-axial abnormalities are shown. Atherosclerotic calcifications are present in the intracran ial segments of the internal carotid arteries. Focal encephalomalacia is seen in the left cerebellum. Bilateral maxillary and ethmoid air cell opacification is seen. Right frontal and sphenoid sinus thic kening is seen. The orbits appear normal. There are no acute fractures of the calvaria or scalp swell ing. Impression: 1. No acute intracranial hemorrhage, no evidence of acute territorial infarction or other acute intr acranial disease process. 2. Sinus disease as above. ACT 112: Negative or not required by law. Electronically signed by: Serafin Chaidez M.D. 07/16/2023 7:10 PM
[2023-07-16 19:14] LABS: BUN Creatinine Ratio 25.6 (10-20); Calcium 9.1 mg/dl (8.6-10.3); Creatinine Clr Calc Pharmacy 53.9 ml/min; Est GFR (African American) 94.3 ml/min; Est GFR (Non-African American) 81.3 ml/min; Magnesium 1.7 mg/dl (1.7-2.4); Potassium 4.3 mmol/L (3.5-5.1)
--- NOTE | 2023-07-16 20:00 | History & Physical Report ---
Date of Service July 16, 2023 Assessment & Plan (1) Fall: Plan: -Admit to med/surge -Currently stable and non-toxic appearing -Presented to the ED for ongoing low back pain and increased weakness with need for placement -His initial fall occurred on 07/13, he was evaluated at [facility] and was without acute trauma on imaging -We were asked to admit the patient for placement as his family is currently unable to safely care for him -No acute trauma on exam today -Will start prn tyelnol and lidocaine patch for pain -Fall precautions w/bed alarm -PT/OT consults placed -BL BOBBI's for DVT PPX -HH/DMII diet w/aspiration precautions -AM CBC, bmp (2) Sinusitis: Plan: -Patient's CT head today shows recurrent sinusitis -Was treated with Augmentin on his last admission after his fall and nasal bone fracture -We will start BID PO Augmentin for recurrent sinusitis -Will start daily probiotic while on Augment -Will add on procal (3) Weakness: Plan: -Patient has a long history of recurrent falls -Was too weak and had too much back pain today to get out of his chair -Likely due to deconditioning and muscle pain from is recent fall -Could also be due to his sinusitis -Continue supportive treatment -PT/OR (4) Dementia: Plan: -Fall/aspiration precautions -Monitor for delirium (5) Low back pain: Plan: -No acute trauma on exam or on imaging from 07/13 -Continue Tylenol and lidocaine patch (6) HTN (hypertension), benign: Plan: -Stable -Continue lisinopril (7) Diabetes type 2, controlled: Plan: -Hold metformin -Monitor BSG ACHS goal is 110-160 -Will start CF 50 ACHS tonight -Adjust regimen as needed (8) Seizure disorder: Plan: -Continue BID keppra (9) Atrial flutter: Plan: -Currently rate controlled -Continue metoprolol and diltiazem -Has been off anticoagulation due to his high fall risk (10) Hypothyroidism (acquired): Plan: -Continue levothyroxine (11) CAD (coronary artery disease): Plan: -Continue aspirin, statin, and metoprolol Plan The patient was discussed with Dr. Elena at the time of the admission History of Present Illness Chief Complaint: Fall, back pain, progressive ambulatory dysfunction Primary Care Provider: Lorna Tucker DO Jose J is an 82 year old male with a PMH significant for DMII, Dementia, seizure disorder, atrial flutter (No longer on anticoagulation), CAD, hypothyroidism, recurrent falls, and previous TIA who presented to the [facility] ED on 07/16/23 with complaints of a fall at home on 07/14/23 with progressive back pain, and new cough. he was evaluated in the [facility] ED on 07/14/23, CT head/cervical spine, CXR, lumbar spine CT, and xray of the pelvis were negative for acute findings. He was subsequently discharged home. Today, he remained stable in the ED. Labs including CBC, CMP, total CK, UA, and covid [address] of the head/brain wo con was read as "1. No acute intracranial hemorrhage, no evidence of acute territorial infarction or other acute intracranial disease process. 2. Sinus disease as above.". We were asked to admit the patient for placement. At the time of the exam the patient was laying in bed in no acute distress. Unfortunately, the patient was by himself so history was limited due to his history of dementia. His only complaints at this time are pain in the low back and posterior scale pain. He denies SOB, chest pain, abd pain, nausea, vomiting, diarrhea, dysuria, hematuria, melena, and LE swelling. He is a DNR/DNI per previous admissions. Please refer to Dr. Elena's attestation for any changes to the treatment plan Allergies Allergy/AdvReac Type Severity Reaction Status Date / Time pollen extracts Allergy Mild CONGESTION Verified 07/16/23 20:23 No Known Drug Allergies Allergy Unknown Unknown Unverified 07/16/23 20:23 Home Medications Medication Instructions Recorded Confirmed Type cyanocobalamin (vitamin B-12) 1,000 mcg PO QAM 11/07/19 07/16/23 History 1,000 mcg tablet (Vitamin B-12) aspirin 81 mg tablet,delayed 81 mg PO QAM 02/26/21 07/16/23 History release guaifenesin 600 mg tablet, 1,200 mg PO Q12 PRN cough 07/11/22 07/16/23 History extended release 12 hr (Mucinex) levothyroxine 50 mcg tablet 50 mcg PO DAILY #90 tabs 10/07/22 07/16/23 Rx sertraline 100 mg tablet 100 mg PO QAM #90 tabs 12/02/22 07/16/23 Rx fluticasone fur. 100 mcg-umeclid 1 inh inhalation QAM #180 ea 01/19/23 07/16/23 Rx 62.5 mcg-vilant 25 mcg inhalat.powder (Trelegy Ellipta) montelukast 10 mg tablet 10 mg PO HS #90 tabs 01/27/23 07/16/23 Rx levetiracetam 500 mg tablet 1,000 mg (2 x 500 mg) PO BID 90 03/17/23 07/16/23 Rx (Keppra) days #360 tabs metformin 850 mg tablet 850 mg PO DAILY #90 tabs 03/20/23 07/16/23 Rx pantoprazole 40 mg tablet,delayed 40 mg PO DAILY #90 tabs 03/20/23 07/16/23 Rx release diltiazem HCl 120 mg 120 mg PO HS #90 caps 03/23/23 07/16/23 Rx capsule,extended release 24 hr lisinopril 5 mg tablet 5 mg PO HS 05/17/23 07/16/23 History atorvastatin 40 mg tablet (Lipitor) 40 mg PO HS #90 tabs 05/31/23 07/16/23 Rx metoprolol tartrate 25 mg tablet 25 mg PO QAM #90 tabs 07/11/23 07/16/23 Rx Past Med/Surg History Medical History HTN (hypertension), benign Fall from standing Fall Diabetes type 2, controlled Seizure disorder (01/2019) Weakness Vomiting Tobacco use disorder Vomiting COPD (chronic obstructive pulmonary disease) SOB (shortness of breath) Fever Chewing tobacco use History of basal cell carcinoma (BCC) of skin (05/2020) Hypoxia Pneumonia Cerebral cavernoma Chronic pulmonary aspiration History of sinusitis History of acute bronchitis with bronchospasm Osteoarthritis Anxiety Tremor HANDS CAD (coronary artery disease) Seizure 01/29/19 - X2 ON THAT DAY AND WAS ADMITTED AND STARTED ON [place] AND NO SEIZURE SINCE Abdominal aortic aneurysm (AAA), 30-34 mm diameter Arteriosclerotic coronary artery disease Benign prostatic hyperplasia with urinary obstruction Depression Dyslipidemia Hypertension Hypothyroidism (acquired) Mild cognitive impairment Osteoporosis Type 2 diabetes mellitus Vitamin B12 deficiency Vitamin D deficiency TIA (transient ischemic attack) 2017 X 1 AND NONE SINCE Paroxysmal atrial fibrillation DX [address] CUELLAR [place] Atrial flutter DX [address] CUELLAR [place] Asthma Surgical History Presence of Watchman left atrial appendage closure device (06/24/22) S/P Mohs surgery for basal cell carcinoma History of colonoscopy History of lung biopsy (03/27/19) Navigational Bronchoscopy with ICG Dye, Robotic Right Video Assisted Thoracoscopy with Right Lower Lobe Wedge Resection with Mediastinal Lymphadenectomy and Lymph Node Biopsy Dr. Lynn 03/27/19 Hx of cardiac cath 2017 -- HEART CATH WITH STENT 6 TOTAL [facility] WITH DR CUELLAR LAST SEEN 12/20/2018 History of anesthesia reaction states "stopped breathing during MOHS procedure at the [facility] H/O 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 Family History Father Heart disease Other COPD (chronic obstructive pulmonary disease) Depression Family history non-contributory Denies family history of Ovarian cancer Prostate cancer Coronary heart disease Myocardial infarction Breast cancer Seizure Lung cancer Colorectal cancer Social History Smoking Status: Former smoker Tobacco Type: Smokeless Tobacco (Dip or Chew) Age Started Using Tobacco: 18; Age Quit Using Tobacco: 33; packs per day: 2; Cigarettes Per Day: 20-40; Second Hand Exposure: No; Do You Dip or Chew Tobacco: Yes; Hx Alcohol Use: No Hx Substance Use: No Preferred Language: Maldivian Communication Ability: Effective Visual Impairment: No Limitations Hearing Ability: Use of Hearing Aid Tone Regulator Required: No Beliefs That Will Affect Care: None marital status: Current Living Situation: Spouse Current Living Situation Comment: in house with current occupational status: retired 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[employer], 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[employer] ([employer] How many Children do You have: 3 Other Information That Helps Us Care for You: No Feels Safe at Home: Yes Safety Concerns: Feels Safe At This Time Childhood Exposure to Second-Hand Smoke: Yes Diet: regular Diet Comment: regular caffeine: No during the past year weight has: remained stable Dental Care, Regularly: No Physical Activity Frequency: Does not Exercise Seatbelt Use: never Sunscreen Use: Yes Assistive Devices: Hospital Bed and Walker Physical Exam Physical Exam: Physical Exam: General: In no acute distress, stated age, chronically ill appearing but non- toxic HEENT: Patient without signs of, no scleral icterus, pupils around round, symmetrical, and reactive to light, dry mucus membranes, trachea midline, no thyromegaly Chest/Pulm: No respiratory distress, symmetrical chest expansion, clear breath sounds throughout Cardiac: irregular rate and rhythm, no murmurs noted Abdomen: Negative for ascites and bruising, normoactive bowel sounds, soft, non-tender to palpation throughout Musculoskeletal: Patient without trauma or tenderness to palpation of the scalp, cervical spine, thoracic spine, chest, abdomen, BL hips, and BL LE's >Mild tenderness to palpation to the lumbar spine without crepitus or step offs Extremities: Radial, dorsalis pedis, and posterior tibial pulses are intact and symmetrical, no edema noted in the BL LE's Skin: As described above, otherwise not other acute trauma Neuro: Alert and oriented to person only, CN II-XII tested and intact, no tremors noted Psych: No acute distress, pleasantly confused, calm and cooperative during the exam Results & Data Results & Data Vital Signs (Past 12 Hours) Vital Signs Temp Pulse Resp BP Pulse Ox O2 Del Method 07/16/23 19:09 85 18 94 Room Air 07/16/23 18:04 81 07/16/23 18:03 37.0 C 89 20 145/103 H 93 Room Air Laboratory Results Abnormal lab results 07/16/23 07/16/23 Range/Units 18:41 19:01 RBC 4.41 L (4.70-6.10) M/uL Hgb 11.1 L (14.0-18.0) g/dl Hct 36.1 L (42.0-52.0) % MCHC 30.7 L (32.0-36.0) g/dL RDW Std Deviation 55.8 H (36.4-46.3) fL RDW Coeff of Ashu 18.7 H (11.5-14.5) % Neut # (Auto) 6.79 H (1.40-6.50) K/uL Lymph # (Auto) 1.19 L (1.20-3.40) K/uL [place] # (Auto) 0.60 H (0.11-0.59) K/uL BUN/Creatinine Ratio 25.6 H (10-20) Glucose 160 H (70-99(Fasting)) mg/dl POC Glucose 174 H (70-99) mg/dl Urine Protein 2+ H (Negative) U Epithel Cells (Auto) 5-10 H (0-5) /lpf Diagnostic Findings Head CT 07/16/23 18:14 CT head/brain wo con CLINICAL HISTORY: weakness Technique: Contiguous axial CT images of the head were acquired from the base of the skull to the vertex without intravenous contrast administration. Images were viewed in brain, subdural and bone windows. Automated dose lowering techniques and/or adjustment according to patient size were utilized for this exam. Comparison: Comparison is made to CT head 324 Findings: Areas of decreased attenuation are present in the periventricular and subcortical white matter bilaterally consistent with small vessel ischemic disease. Generalized cerebral atrophy with commensurate enlargement of the ventricles, sulci, and cisterns is also present. There is no acute intracranial hemorrhage or evidence of acute territorial infarction. No shift of the midline structures, mass effect, or extra-axial abnormalities are shown. Atherosclerotic calcifications are present in the intracranial segments of the internal carotid arteries. Focal encephalomalacia is seen in the left cerebellum. Bilateral maxillary and ethmoid air cell opacification is seen. Right frontal and sphenoid sinus thickening is seen. The orbits appear normal. There are no acute fractures of the calvaria or scalp swelling. Impression: 1. No acute intracranial hemorrhage, no evidence of acute territorial infarction or other acute intracranial disease process. 2. Sinus disease as above. ACT 112: Negative or not required by law. Electronically signed by: Serafin Chaidez M.D. 07/16/2023 7:10 PM Code Status & VTE Plan Code Status DNR/DNI VTE Prophylaxis Plan VTE Prophylaxis will be ordered: Yes Supervising Physician Co-Signing Physician Notes Attending addendum: I have physically seen this patient, have supervised the BRIDGER's activities, and agree with the H&P unless as otherwise noted. Assessment and Plan: Status post fall/worsening low back pain/increasing generalized weakness/need for inpatient rehab- Admit to [facility] History of multiple recurrent falls Patient reports that he was just too weak and too much back pain to be able to get out of his chair Combination of issues of general deconditioning, and dealing with low back pain Patient being admitted for assessment by PT and OT for possible inpatient rehab Acetaminophen 650 mg by mouth every 6 hours as needed for mild pain or fever Lidocaine patch applied to low back pain per protocol Consult PT/OT Consult socially responsible investment adviser CAD/hypertension/atrial flutter- Continue metoprolol, diltiazem and lisinopril with hold parameters Continue aspirin and atorvastatin Diabetes mellitus- Hold metformin placed on Accu-Cheks with NovoLog SSI Seizure disorder- Continue Keradhara PG Care Time/CCT Total # of Minutes Spent Total Time Spent with Patient: Total time spent is greater than 50% in coordination of care (as documented) at patient's floor/unit and/or counseling patient: Coding [place] [address] INT INP/OBS CARE 3/75MIN Patient Type Established Medical Decision Making High Complexity Diagnoses Fall W19.XXXA Sinusitis J32.9 Weakness R53.1 Dementia F03.90 Low back pain M54.50 HTN (hypertension), benign I10 Diabetes type 2, controlled E11.9 Seizure disorder G40.909 Atrial flutter, unspecified type I48.92 Atrial flutter type: unspecified Hypothyroidism (acquired) E03.9 Coronary artery disease involving coquille coronary artery of coquille heart without angina pectoris I25.10 Associated angina: without angina Coronary Disease-Associated Artery/Lesion type: [place] artery [place] vs. transplanted heart: coquille heart (9) Atrial flutter Atrial flutter type: unspecified Qualified Code(s): I48.92 - Unspecified atrial flutter (11) CAD (coronary artery disease) Associated angina: without angina Coronary Disease-Associated Artery/Lesion type: [place] artery [place] vs. transplanted heart: coquille heart Qualified Code(s): I25.10 - Atherosclerotic heart disease of coquille coronary artery without angina pectoris
[2023-07-16] MEDS ORDERED: GLUCOSE 40% GEL 15 GM TUBE PO PRN (20:29)
[2023-07-16] MEDS ORDERED: GLUCOSE 10 TAB/TUBE PO PRN (20:29)
[2023-07-16] MEDS ORDERED: DEXTROSE 50% 50 ML SYRINGE IV PRN (20:29)
[2023-07-16] MEDS ORDERED: GLUCAGON FOR INJ 1 MG VIAL SQ PRN (20:29)
[2023-07-16] MEDS ORDERED: CARBOHYDRATES FOR HYPOGLYCEMIA PO PRN (20:29)
[2023-07-16] MEDS: ACETAMINOPHEN 500 MG TAB PO STA (20:55)
[2023-07-16] MEDS: AMOXICILLIN/CLAVULANATE 875 MG TAB PO ONE (20:55)
[2023-07-16] MEDS: LIDOCAINE 5% 1 PATCH TD STA (20:55)
[2023-07-16] MEDS: LACTATED RINGER'S 1,000 ML IV SCH (21:47)
[2023-07-16] MEDS: INSULIN ASPART PER UNIT CHARGE SC SCH (21:53)
[2023-07-16] MEDS: lisinopril 5 MG TAB PO SCH (22:26)
[2023-07-16] MEDS: levETIRAcetam 500 MG TAB PO SCH (22:26)
[2023-07-16] MEDS: dilTIAZem HCL 120 MG CAPCR PO SCH (22:26)
[2023-07-16] MEDS: ATORVASTATIN 40 MG TAB PO SCH (22:26)
[2023-07-16] MEDS: MONTELUKAST SODIUM 10 MG TABLET PO SCH (22:27)
--- NOTE | 2023-07-17 04:54 | Billing Data ---
Date of Service July 17, 2023 Coding Level of Care Code 52199 INT INP/OBS CARE
[2023-07-17] MEDS: LEVOTHYROXINE SODIUM 50 MCG TABLET PO SCH (05:21)
--- NOTE | 2023-07-17 07:29 | XRay Report ---
XR chest 1V portable HISTORY: 82 years-old Male cough acute cough COMPARISON: 07/14/2023 TECHNIQUE: AP view of the chest FINDINGS: Cardiac silhouette is enlarged. Atherosclerosis of the aorta. Mild chronic interstitial coarsening. S mall left pleural effusion with mild left basilar consolidation. Coronary arterial stenting. IMPRESSION: 1. Small left pleural effusion with left basilar consolidation which may represent atelectasis versus pneumonia. 2. Cardiomegaly without pulmonary edema. ACT 112: Negative or not required by law. The above report was generated using voice recognition software. It may contain grammatical, syntax o r spelling errors. Electronically signed by: Bulmaro Deluca M.D. 07/17/2023 7:28 AM
[2023-07-17 08:12] LABS: Basophils # (auto) 0.07 K/uL (0.00-0.20); Basophils % (auto) 0.7 %; Eosinophils # (auto) 0.11 K/uL (0.00-0.50); Eosinophils % (auto) 1.1 %; Hematocrit (blood only) 34.8 % (42.0-52.0); Hemoglobin 10.7 g/dl (14.0-18.0); Immature Granulocytes # (auto) 0.04 K/uL (0.01-0.20); Immature Granulocytes % (auto) 0.4 %; Lymphocytes # (auto) 1.19 K/uL (1.20-3.40); Lymphocytes % (auto) 11.9 %; Mean Corpuscular Hemoglobin 24.7 pg (25.0-34.0); Mean Corpuscular Hgb Conc 30.7 g/dL (32.0-36.0); Mean Corpuscular Volume 80.2 fL (80.0-100.0); Mean Platelet Volume 9.8 fL (9.4-12.4); Monocytes # (auto) 0.86 K/uL (0.11-0.59); Monocytes % (auto) 8.6 %; Neutrophils # (auto) 7.69 K/uL (1.40-6.50); Neutrophils % (auto) 77.3 %; Platelet Count 183 K/uL (130-400); RDW Coefficient of Variation 18.7 % (11.5-14.5); RDW Standard Deviation 53.8 fL (36.4-46.3); Red Blood Count 4.34 M/uL (4.70-6.10); White Blood Count 9.96 K/ul (4.8-10.8)
[2023-07-17] MEDS: ADVANCED PROBIOTIC 625 MG CAPSULE PO SCH (08:16)
[2023-07-17] MEDS: SERTRALINE HCL 100 MG TABLET PO SCH (08:16)
[2023-07-17] MEDS: AMOXICILLIN/CLAVULANATE 875 MG TAB PO SCH (08:16)
[2023-07-17] MEDS: guaiFENesin 600 MG TABCR PO PRN (08:16)
[2023-07-17] MEDS: ASPIRIN 81 MG ECTAB PO SCH (08:16)
[2023-07-17] MEDS: METOPROLOL TARTRATE 25 MG TAB PO SCH (08:16)
[2023-07-17] MEDS: PANTOprazole 40 MG TAB PO SCH (08:16)
[2023-07-17] MEDS: FLUTICASONE FUROATE 100MCG 14 PUFFS/INHALER INH SCH (08:17)
[2023-07-17] MEDS: UMECLIDINIUM/VILANTEROL 62.5/25MCG 7 PUFFS/INHALER INH SCH (08:17)
[2023-07-17 08:27] LABS: BUN Creatinine Ratio 20.5 (10-20); Calcium 8.9 mg/dl (8.6-10.3); Creatinine Clr Calc Pharmacy 66.1 ml/min; Est GFR (African American) 100.8 ml/min; Magnesium 1.5 mg/dl (1.7-2.4); Potassium 3.7 mmol/L (3.5-5.1)
[2023-07-17] MEDS ORDERED: NON-FORMULARY MEDICATION (Fluticasone-Umeclidin-Vilanter [Trelegy Ellipta] 100-62.5-25 mcg INH SCH (09:00)
[2023-07-17] MEDS: MAGNESIUM SULFATE / D5W 1 GM/100 ML BAG IV SCH (09:59)
[2023-07-17] MEDS: ACETAMINOPHEN 500 MG TAB PO PRN (11:06)
[2023-07-17] MEDS ORDERED: LIDOCAINE 5% 1 PATCH TD PRN (11:51)
--- NOTE | 2023-07-17 11:56 | Hospitalist Progress Note ---
Date of Service July 17, 2023 Assessment & Plan (1) Fall: Plan: -Presented to the ED for ongoing low back pain and increased weakness with need for placement -His initial fall occurred on 07/13, he was evaluated at [facility] and was without acute trauma on imaging. Returned home but Family is unable to safely care for him at home -Pain control: prn tyelnol and lidocaine patch -PT/OT consults placed - PT recommends SNF -BL BOBBI's for DVT PPX 07/16: Mag low 1.5 --> replaced IV (2) Sinusitis: Plan: -Patient's CT head on admission shows recurrent sinusitis - Procal 0.03 - Continue BID PO Augmentin for recurrent sinusitis - Continue daily probiotic while on Augmentin Notified by RN this afternoon, hypoxia requiring 2L NC. Patient with mild cough, nonproductive. No wheezing on exam - Repeat 2V CXR with mild left basilar opacity - atelectasis vs infectious process - added doxycyline for PNA coverage - FV and IS - Wean O2 as able, goal 92% (3) Weakness: Plan: -Patient has a long history of recurrent falls, was too weak to get out of his chair at home -Likely due to deconditioning and muscle pain from is recent fall -Continue supportive treatment -PT/OT following (4) Dementia: Plan: -Fall/aspiration precautions Stable (5) Low back pain: Plan: -No acute trauma on exam or on imaging from 07/13 -Continue Tylenol and lidocaine patch (6) HTN (hypertension), benign: Plan: -Stable -Continue lisinopril (7) Diabetes type 2, controlled: Plan: -Hold metformin - A1c 05/2023: 6.7 -Monitor BSG ACHS goal is 110-160 -CF 50 ACHS tonight (8) Seizure disorder: Plan: -Continue BID keppra (9) Atrial flutter: Plan: -Currently rate controlled -Continue metoprolol and diltiazem -Has been off anticoagulation due to his high fall risk (10) Hypothyroidism (acquired): Plan: -Continue levothyroxine (11) CAD (coronary artery disease): Plan: -Continue aspirin, statin, and metoprolol Plan Dispo: continued inpatient stay DVT proh: Hermes updated by phone Admission and Anticipated Discharge Date Admission Date: July 16, 2023 Subjective Patient sitting up in the chair. Reports some back pain after PT that improved with tylenol. Fair appetite. Reports moving bowels. reports falls without prodrome, slipped on ice Review of Systems Review of Systems: All systems reviewed & are unremarkable except as noted in Subjective Physical Exam Physical Exam: General: NAD, VS as above Resp: normal respiratory effort, lungs clear to auscultation, no cough CV: RRR, no murmur, Abd: normal bowel sounds, non tender, no hepatosplenomegaly Extremities: Moves all extremities, no LE edema Results & Data Results & Data Vital Signs (Past 12 Hours) Vital Signs Temp Pulse Resp BP Pulse Ox O2 Del Method 07/17/23 09:45 Room Air 07/17/23 08:03 36.8 C 90 16 162/90 H 94 Room Air Laboratory Results CBC, chemistry, Mag and procal reviewed Diagnostic Findings CXR and head CT reviewed PG Care Time/CCT Total # of Minutes Spent Total Time Spent with Patient: Total time spent is greater than 50% in coordination of care (as documented) at patient's floor/unit and/or counseling patient: Coding Level of Care Code 53912 SUB INP/OBS CARE 3/50MIN Diagnoses Fall W19.XXXA Sinusitis J32.9 Weakness R53.1 Dementia F03.90 Low back pain M54.50 HTN (hypertension), benign I10 Diabetes type 2, controlled E11.9 Seizure disorder G40.909 Atrial flutter, unspecified type I48.92 Atrial flutter type: unspecified Hypothyroidism (acquired) E03.9 Coronary artery disease involving [place] coronary artery of [place] heart without angina pectoris I25.10 Associated angina: without angina Coronary Disease-Associated Artery/Lesion type: [place] artery [place] vs. transplanted heart: [place] heart (9) Atrial flutter Atrial flutter type: unspecified Qualified Code(s): I48.92 - Unspecified atrial flutter (11) CAD (coronary artery disease) Associated angina: without angina Coronary Disease-Associated Artery/Lesion type: [place] artery [place] vs. transplanted heart: teller heart Qualified Code(s): I25.10 - Atherosclerotic heart disease of teller coronary artery without angina pectoris
--- NOTE | 2023-07-17 17:20 | XRay Report ---
XR chest 2V PA/lateral CLINICAL HISTORY: Hypoxia. COMPARISON STUDY: Chest CT September 02, 2021. Chest radiograph July 16, 2023. FINDINGS: There is no pneumothorax or pleural effusion. Cardiomediastinal silhouette is stable. There is no evidence for pulmonary edema. Linear right upper lung densities are unchanged and represent sc arring. Mild left basilar opacity is unchanged. The appearance of the chest is unchanged. IMPRESSION: No change in mild left basilar opacity. This may reflect atelectasis or an infectious pr ocess. ACT 112: Negative or not required by law. Electronically signed by: Kevin Hernández M.D. 07/17/2023 5:19 PM
[2023-07-17] MEDS: ACETAMINOPHEN 500 MG TAB ONE (18:42)
[2023-07-17] MEDS: LIDOCAINE 5% 1 PATCH TD ONE (18:43)
[2023-07-17] MEDS: AMOXICILLIN/CLAVULANATE 875 MG TAB PO ONE (18:43)
[2023-07-17] MEDS: DOXYCYCLINE HYCLATE 100 MG CAP PO SCH (20:43)
[2023-07-18 09:55] LABS: Basophils # (auto) 0.08 K/uL (0.00-0.20); Basophils % (auto) 0.4 %; Hematocrit (blood only) 37.3 % (42.0-52.0); Hemoglobin 11.8 g/dl (14.0-18.0); Immature Granulocytes # (auto) 0.11 K/uL (0.01-0.20); Immature Granulocytes % (auto) 0.6 %; Lymphocytes # (auto) 1.05 K/uL (1.20-3.40); Lymphocytes % (auto) 5.6 %; Mean Corpuscular Hgb Conc 31.6 g/dL (32.0-36.0); Mean Platelet Volume 10.3 fL (9.4-12.4); Monocytes # (auto) 1.74 K/uL (0.11-0.59); Monocytes % (auto) 9.2 %; Neutrophils # (auto) 15.92 K/uL (1.40-6.50); Neutrophils % (auto) 84.2 %; Platelet Count 202 K/uL (130-400); RDW Coefficient of Variation 18.7 % (11.5-14.5); RDW Standard Deviation 53.5 fL (36.4-46.3); Red Blood Count 4.72 M/uL (4.70-6.10)
[2023-07-18 10:33] LABS: BUN Creatinine Ratio 17.6 (10-20); Calcium 8.9 mg/dl (8.6-10.3); Creatinine Clr Calc Pharmacy 65.2 ml/min; Est GFR (African American) 100.3 ml/min; Est GFR (Non-African American) 86.5 ml/min; Magnesium 1.8 mg/dl (1.7-2.4); Potassium 3.7 mmol/L (3.5-5.1)
--- NOTE | 2023-07-18 11:03 | Hospitalist Progress Note ---
Date of Service July 18, 2023 Assessment & Plan (1) Fall: Plan: -Presented to the ED for ongoing low back pain and increased weakness with need for placement -His initial fall occurred on 07/13, he was evaluated at [facility] and was without acute trauma on imaging. Returned home but Family is unable to safely care for him at home -Pain control: prn tyelnol and lidocaine patch -PT/OT consults placed - PT recommends [facility] for DVT PPX 07/16: Mag low 1.5 --> replaced IV (2) Pneumonia: Plan: Notified by RN afternoon 07/16, hypoxia requiring 2L NC. Patient with mild cough, nonproductive. No wheezing on exam - Repeat 2V CXR with mild left basilar opacity - atelectasis vs infectious process - Aready on Augmentin for sinusitis - added doxycycline 07/16 - FV and IS - Procal 0.10 - Wean O2 as able, goal 92% 07/17: WBC 18 AM CBC (3) Sinusitis: Plan: -Patient's CT head on admission shows recurrent sinusitis - Procal 0.03 --> 0.10 - Continue BID PO Augmentin for recurrent sinusitis - Continue daily probiotic while on Augmentin (4) Weakness: Plan: -Patient has a long history of recurrent falls, was too weak to get out of his chair at home -Likely due to deconditioning and muscle pain from is recent fall -Continue supportive treatment -PT/OT following (5) Dementia: Plan: -Fall/aspiration precautions Stable (6) Low back pain: Plan: -No acute trauma on exam or on imaging from 07/13 -Continue Tylenol and lidocaine patch (7) HTN (hypertension), benign: Plan: -Stable -Continue lisinopril (8) Diabetes type 2, controlled: Plan: -Hold metformin - A1c 05/2023: 6.7 -Monitor BSG ACHS goal is 110-160 -CF 50 ACHS (9) Seizure disorder: Plan: -Continue BID keppra (10) Atrial flutter: Plan: -Currently rate controlled -Continue metoprolol and diltiazem -Has been off anticoagulation due to his high fall risk (11) Hypothyroidism (acquired): Plan: -Continue levothyroxine (12) CAD (coronary artery disease): Plan: -Continue aspirin, statin, and metoprolol Plan Dispo: continued inpatient stay DVT proh: TEDs, SQ heparin Family updated 07/16 Admission and Anticipated Discharge Date Admission Date: July 16, 2023 Subjective Patient sitting in chair. Reports that he is feeling better today. Still requiring oxygen but denies feeling short of breath fair appetite Review of Systems Review of Systems: All systems reviewed & are unremarkable except as noted in Subjective Physical Exam Physical Exam: General: NAD, VS as above Resp: normal respiratory effort, diminished in the bases, no wheezing. no cough CV: RRR, no murmur, Abd: normal bowel sounds, non tender, no hepatosplenomegaly Extremities: Moves all extremities, [facility] hose in place no LE edema Results & Data Results & Data Vital Signs (Past 12 Hours) Vital Signs Temp Pulse Resp BP Pulse Ox O2 Del Method O2 Flow Rate 07/18/23 08:52 Nasal Cannula 2 07/18/23 07:24 36.6 C 65 16 142/88 H 92 Nasal Cannula 2 Laboratory Results CBC, chemistry, Mag and procal reviewed PG Care Time/CCT Total # of Minutes Spent Total Time Spent with Patient: Total time spent is greater than 50% in coordination of care (as documented) at patient's floor/unit and/or counseling patient: Coding Level of Care Code 14661 SUB INP/OBS CARE 350MIN Diagnoses Fall W19.XXXA Pneumonia J18.9 Laterality: right Lung location: middle lobe of lung Pneumonia type: due to unspecified organism Sinusitis J32.9 Weakness R53.1 Dementia F03.90 Low back pain M54.50 HTN (hypertension), benign I10 Diabetes type 2, controlled E11.9 Seizure disorder G40.909 Atrial flutter, unspecified type I48.92 Atrial flutter type: unspecified Hypothyroidism (acquired) E03.9 Coronary artery disease involving [place] coronary artery of [place] heart without angina pectoris I25.10 Associated angina: without angina Coronary Disease-Associated Artery/Lesion type: [place] artery [place] vs. transplanted heart: [place] heart (2) Pneumonia Laterality: right Lung location: middle lobe of lung Pneumonia type: due to unspecified organism Qualified Code(s): J18.9 - Pneumonia, unspecified organism (10) Atrial flutter Atrial flutter type: unspecified Qualified Code(s): I48.92 - Unspecified atrial flutter (12) CAD (coronary artery disease) Associated angina: without angina Coronary Disease-Associated Artery/Lesion type: [place] artery [place] vs. transplanted heart: [place] heart Qualified Code(s): I25.10 - Atherosclerotic heart disease of [place] coronary artery without angina pectoris
[2023-07-18] MEDS: HEPARIN SOD 5,000 UNIT/0.5 ML VIAL SQ SCH (21:44)
[2023-07-19 09:34] LABS: Basophils # (auto) 0.04 K/uL (0.00-0.20); Basophils % (auto) 0.2 %; Hematocrit (blood only) 35.3 % (42.0-52.0); Hemoglobin 11.4 g/dl (14.0-18.0); Immature Granulocytes # (auto) 0.09 K/uL (0.01-0.20); Immature Granulocytes % (auto) 0.5 %; Lymphocytes # (auto) 0.76 K/uL (1.20-3.40); Lymphocytes % (auto) 4.3 %; Mean Corpuscular Hemoglobin 25.2 pg (25.0-34.0); Mean Corpuscular Hgb Conc 32.3 g/dL (32.0-36.0); Mean Corpuscular Volume 77.9 fL (80.0-100.0); Mean Platelet Volume 10.7 fL (9.4-12.4); Monocytes # (auto) 1.57 K/uL (0.11-0.59); Neutrophils # (auto) 15.04 K/uL (1.40-6.50); Platelet Count 205 K/uL (130-400); RDW Standard Deviation 52.7 fL (36.4-46.3); Red Blood Count 4.53 M/uL (4.70-6.10)
[2023-07-19 09:55] LABS: Creatinine Clr Calc Pharmacy 56.8 ml/min; Est GFR (African American) 94.7 ml/min; Est GFR (Non-African American) 81.7 ml/min
--- NOTE | 2023-07-19 12:02 | Hospitalist Progress Note ---
Date of Service July 19, 2023 Assessment & Plan (1) Fall: Plan: -Presented to the ED for ongoing low back pain and increased weakness with need for placement -His initial fall occurred on 07/13, he was evaluated at [facility] and was without acute trauma on imaging. Returned home but Family is unable to safely care for him at home -Pain control: prn tyelnol and lidocaine patch -PT/OT consults placed - PT recommends [facility] for DVT PPX 07/16: Mag low 1.5 --> replaced IV (2) Pneumonia: Plan: Notified by RN afternoon 07/16, hypoxia requiring 2L NC. Patient with mild cough, nonproductive. No wheezing on exam - Repeat 2V CXR with mild left basilar opacity - atelectasis vs infectious process - Aready on Augmentin for sinusitis - added doxycycline 07/16 - FV and IS - Procal 0.10 - Wean O2 as able, goal 92% 07/17: WBC 18 AM CBC (3) Sinusitis: Plan: -Patient's CT head on admission shows recurrent sinusitis - Procal 0.03 --> 0.10 - Continue BID PO Augmentin for recurrent sinusitis - Continue daily probiotic while on Augmentin (4) Weakness: Plan: -Patient has a long history of recurrent falls, was too weak to get out of his chair at home -Likely due to deconditioning and muscle pain from is recent fall -Continue supportive treatment -PT/OT following (5) Dementia: Plan: -Fall/aspiration precautions Stable (6) Low back pain: Plan: -No acute trauma on exam or on imaging from 07/13 -Continue Tylenol and lidocaine patch (7) HTN (hypertension), benign: Plan: -Stable -Continue lisinopril (8) Diabetes type 2, controlled: Plan: -Hold metformin - A1c 05/2023: 6.7 -Monitor BSG ACHS goal is 110-160 -CF 50 ACHS (9) Seizure disorder: Plan: -Continue BID keppra (10) Atrial flutter: Plan: -Currently rate controlled -Continue metoprolol and diltiazem -Has been off anticoagulation due to his high fall risk (11) Hypothyroidism (acquired): Plan: -Continue levothyroxine (12) CAD (coronary artery disease): Plan: -Continue aspirin, statin, and metoprolol Plan Dispo: continued inpatient stay DVT proh: TEDs, SQ heparin Family updated 07/16 Admission and Anticipated Discharge Date Admission Date: July 16, 2023 Subjective Patient sitting up in the chair, tells me he is in the hospital, in [place] and its 2003 Aspiration event witnessed - patient does report coughing while eating. RN said took pills this morning without issue reports back pain, but states that it is improving Review of Systems Review of Systems: All systems reviewed & are unremarkable except as noted in Subjective Physical Exam Physical Exam: General: NAD, VS as above Resp: normal respiratory effort, diminished in the bases, no wheezing. able to demonstrate use of FV CV: RRR, no murmur, Abd: normal bowel sounds, non tender, no hepatosplenomegaly Extremities: Moves all extremities, Mckinley hose in place no LE edema Results & Data Results & Data Vital Signs (Past 12 Hours) Vital Signs Temp Pulse Resp BP Pulse Ox O2 Del Method O2 Flow Rate 07/19/23 07:55 36.7 C 100 H 16 128/81 92 Nasal Cannula 2 Laboratory Results CBC and chemistry reviewed PG Care Time/CCT Total # of Minutes Spent Total Time Spent with Patient: Total time spent is greater than 50% in coordination of care (as documented) at patient's floor/unit and/or counseling patient: Coding Diagnoses Fall W19.XXXA Pneumonia J18.9 Laterality: right Lung location: middle lobe of lung Pneumonia type: due to unspecified organism Sinusitis J32.9 Weakness R53.1 Dementia F03.90 Low back pain M54.50 HTN (hypertension), benign I10 Diabetes type 2, controlled E11.9 Seizure disorder G40.909 Atrial flutter, unspecified type I48.92 Atrial flutter type: unspecified Hypothyroidism (acquired) E03.9 Coronary artery disease involving [place] coronary artery of [place] heart without angina pectoris I25.10 Associated angina: without angina Coronary Disease-Associated Artery/Lesion type: [place] artery [place] vs. transplanted heart: [place] heart (2) Pneumonia Laterality: right Lung location: middle lobe of lung Pneumonia type: due to unspecified organism Qualified Code(s): J18.9 - Pneumonia, unspecified organism (10) Atrial flutter Atrial flutter type: unspecified Qualified Code(s): I48.92 - Unspecified atrial flutter (12) CAD (coronary artery disease) Associated angina: without angina Coronary Disease-Associated Artery/Lesion type: [place] artery [place] vs. transplanted heart: [place] heart Qualified Code(s): I25.10 - Atherosclerotic heart disease of [place] coronary artery without angina pectoris
[2023-07-19] MEDS: ALBUT/IPRATROP 3MG/0.5MG NEB 3 ML VIAL NEB PRN (12:08)
--- NOTE | 2023-07-19 16:27 | Discharge Summary ---
Discharge Summary Date of Service July 19, 2023 Notes For Next Care Provider Will need VFSS while at [facility] Medication Changes From Visit Doxycyline and Augmentin Admission HPI Per Admitting Provider Jose J is an 82 year old male with a PMH significant for DMII, Dementia, seizure disorder, atrial flutter (No longer on anticoagulation), CAD, hypoth yroidism, recurrent falls, and previous TIA who presented to the [facility] ED on 07/16/23 with complaints of a fall at home on 07/14/23 with progressive back pain, and new cough. he was evaluated in the [facility] ED on 07/14/23, CT head/cervical spine, CXR, lumbar spine CT, and xray of the pelvis were negative for acute findings. He was subsequently discharged home. Today, he remained stable in the ED. Labs including CBC, CMP, total CK, UA, and covid [address] of the head/brain wo con was read as "1. No acute intracranial hemorrhage, no evidence of acute territorial infarction or other acute intracranial disease process. 2. Sinus disease as above.". We were asked to admit the patient for placement. At the time of the exam the patient was laying in bed in no acute distress. U nfortunately, the patient was by himself so history was limited due to his history of dementia. His only complaints at this time are pain in the low back and posterior scale pain. He denies SOB, chest pain, abd pain, nausea, vomiting, diarrhea, dysuria, hematuria, melena, and LE swelling. He is a DNR/DNI per previous admissions. Please refer to Dr. Elena's attestation for any changes to the treatment plan Principal Dx & Hospital Course #1 = Principal Diagnosis (1) Fall: -Presented to the ED for ongoing low back pain and increased weakness with need for placement -His initial fall occurred on 07/13, he was evaluated at [facility] and was without acute trauma on imaging. Returned home but Family is unable to safely care for him at home -Pain control: prn tyelnol and lidocaine patch -PT/OT consults placed Discharge to [facility] today (2) Pneumonia: Notified by RN afternoon 07/16, hypoxia requiring 2L NC. Patient with mild cough, nonproductive. No wheezing on exam - Repeat 2V CXR with mild left basilar opacity - atelectasis vs infectious process - Procal 0.10 - continue PO doxycyline and augmentin at discharge - FV and IS - Wean O2 as able, goal 92% WBC improving (3) Dementia: -Fall/aspiration precautions Stable Patient with a witnessed aspiration event. Evaluated by [facility] who has seen patient before. Swallowing function and appears worse. Was orginally planned to stay inpatient to have this further evaluated, and [facility] recommended VFSS. My supervising provider, Dr. Agudelo, spoke with Dr. Rain at [facility] and said they would be able to facilitate this at their facility if that was the only thing preventing discharge he could go. (4) Sinusitis: -Patient's CT head on admission shows recurrent sinusitis - Procal 0.03 --> 0.10 - Continue BID PO Augmentin for recurrent sinusitis - Continue daily probiotic while on Augmentin (5) Weakness: -Patient has a long history of recurrent falls, was too weak to get out of his c hair at home -Likely due to deconditioning and muscle pain from is recent fall -Continue supportive treatment -PT/OT following --> discharged to [facility] for rehab (6) Low back pain: -No acute trauma on exam or on imaging from 07/13 -Continue Tylenol and lidocaine patch (7) HTN (hypertension), benign: -Stable -Continue lisinopril Documented hypotension this afternoon, patient was sleepind during this. i personally went and saw the patient he was asymptomatic and repeat BP while I was in the room was 110/80. Patient was not in any distress. (8) Diabetes type 2, controlled: - continue metformin at discharge - A1c 05/2023: 6.7 (9) Seizure disorder: -Continue BID keppra (10) Atrial flutter: -Currently rate controlled -Continue metoprolol and diltiazem -Has been off anticoagulation due to his high fall risk (11) Hypothyroidism (acquired): -Continue levothyroxine (12) CAD (coronary artery disease): -Continue aspirin, statin, and metoprolol Plan Dispo: discharge to [facility] today updated by phone 07/18 Updated Medication List Medication Instructions Recorded Confirmed Type cyanocobalamin (vitamin B-12) 1,000 mcg PO QAM 11/07/19 07/16/23 History 1,000 mcg tablet (Vitamin B-12) aspirin 81 mg tablet,delayed 81 mg PO QAM 02/26/21 07/16/23 History release guaifenesin 600 mg tablet, 1,200 mg PO Q12 PRN cough 07/11/22 07/16/23 History extended release 12 hr (Mucinex) levothyroxine 50 mcg tablet 50 mcg PO DAILY #90 tabs 10/07/22 07/16/23 Rx sertraline 100 mg tablet 100 mg PO QAM #90 tabs 12/02/22 07/16/23 Rx fluticasone fur. 100 mcg-umeclid 1 inh inhalation QAM #180 ea 01/19/23 07/16/23 Rx 62.5 mcg-vilant 25 mcg inhalat.powder (Trelegy Ellipta) montelukast 10 mg tablet 10 mg PO HS #90 tabs 01/27/23 07/16/23 Rx levetiracetam 500 mg tablet 1,000 mg (2 x 500 mg) PO BID 90 03/17/23 07/16/23 Rx (Keppra) days #360 tabs metformin 850 mg tablet 850 mg PO DAILY #90 tabs 03/20/23 07/16/23 Rx pantoprazole 40 mg tablet,delayed 40 mg PO DAILY #90 tabs 03/20/23 07/16/23 Rx release diltiazem HCl 120 mg 120 mg PO HS #90 caps 03/23/23 07/16/23 Rx capsule,extended release 24 hr lisinopril 5 mg tablet 5 mg PO HS 05/17/23 07/16/23 History atorvastatin 40 mg tablet (Lipitor) 40 mg PO HS #90 tabs 05/31/23 07/16/23 Rx metoprolol tartrate 25 mg tablet 25 mg PO QAM #90 tabs 07/11/23 07/16/23 Rx L.acidop,casei,lactis,rham-B.lact,umer 1 cap PO DAILY 14 days #14 caps 07/19/23 Rx 625 mg (10 billion cell) capsule (Advanced Probiotic) acetaminophen 500 mg tablet 1,000 mg (2 x 500 mg) PO Q8H PRN 07/19/23 Rx (Tylenol Extra Strength) fever or pain 30 days #30 tabs amoxicillin 875 mg-potassium 1 tab PO BIDM #17 tabs 07/19/23 Rx clavulanate 125 mg tablet doxycycline hyclate 100 mg capsule 100 mg PO BID #9 caps 07/19/23 Rx Hospital Stay Data Consultations 07/16/23 19:20 ED Decision to Admit Stat Diagnostic Imagining Performed Head CT 07/16/23 18:14 CT head/brain wo con CLINICAL HISTORY: weakness Technique: Contiguous axial CT images of the head were acquired from the base of the skull to the vertex without intravenous contrast administration. Images were viewed in brain, subdural and bone windows. Automated dose lowering techniques and/or adjustment according to patient size were utilized for this exam. Comparison: Comparison is made to CT head 324 Findings: Areas of decreased attenuation are present in the periventricular and subcortical white matter bilaterally consistent with small vessel ischemic disease. Generalized cerebral atrophy with commensurate enlargement of the ventricles, sulci, and cisterns is also present. There is no acute intracranial hemorrhage or evidence of acute territorial infarction. No shift of the midline structures, mass effect, or extra-axial abnormalities are shown. Atherosclerotic calcifications are present in the intracranial segments of the internal carotid arteries. Focal encephalomalacia is seen in the left cerebellum. Bilateral maxillary and ethmoid air cell opacification is seen. Right frontal and sphenoid sinus thickening is seen. The orbits appear normal. There are no acute fractures of the calvaria or scalp swelling. Impression: 1. No acute intracranial hemorrhage, no evidence of acute territorial infarction or other acute intracranial disease process. 2. Sinus disease as above. ACT 112: Negative or not required by law. Electronically signed by: Serafin Chaidez M.D. 07/16/2023 7:10 PM Chest X-Ray 07/16/23 20:22 XR chest 1V portable HISTORY: 82 years-old Male cough acute cough COMPARISON: 07/14/2023 TECHNIQUE: AP view of the chest FINDINGS: Cardiac silhouette is enlarged. Atherosclerosis of the aorta. Mild chronic interstitial coarsening. Small left pleural effusion with mild left basilar consolidation. Coronary arterial stenting. IMPRESSION: 1. Small left pleural effusion with left basilar consolidation which may represent atelectasis versus pneumonia. 2. Cardiomegaly without pulmonary edema. ACT 112: Negative or not required by law. The above report was generated using voice recognition software. It may contain grammatical, syntax or spelling errors. Electronically signed by: Bulmaro Deluca M.D. 07/17/2023 7:28 AM Chest X-Ray 07/17/23 16:38 XR chest 2V PA/lateral CLINICAL HISTORY: Hypoxia. COMPARISON STUDY: Chest CT September 02, 2021. Chest radiograph July 16, 2023. FINDINGS: There is no pneumothorax or pleural effusion. Cardiomediastinal silhouette is stable. There is no evidence for pulmonary edema. Linear right upper lung densities are unchanged and represent scarring. Mild left basilar opacity is unchanged. The appearance of the chest is unchanged. IMPRESSION: No change in mild left basilar opacity. This may reflect atelectasis or an infectious process. ACT 112: Negative or not required by law. Electronically signed by: Kevin Hernández M.D. 07/17/2023 5:19 PM Pending Results Patient Have Any Pending Studies at Discharge: No Discharge Instructions Given to Patient (Per Discharging Provider) Back pain - well controlled with tylenol PNA/sinusitis - on Agumentin (through 07/26) and Doxycyline (through 07/23). Has been requiring 2-3L of oxygen while here, suspect will be able to wean with continued treatment - probiotic while on abx aspiration - was seen by [employer] [facility], significant worsening of swallowing function since last eval, was planned for Swallow study 07/19, so would recommend this be done through your facility as discussed with Dr. Agudelo Total Time Total Time Spent Total Time Spent (In Minutes): Time spend day of discharge 45 minutes including direct patient care, medication reconciliation, documentation, review of labs and images, and coordination of care. Coding Level of Care Code 53023 INP/OBS DISCH >30 MIN Diagnoses Fall W19.XXXA Pneumonia J18.9 Laterality: right Lung location: middle lobe of lung Pneumonia type: due to unspecified organism Dementia F03.90 Sinusitis J32.9 Weakness R53.1 Low back pain M54.50 HTN (hypertension), benign I10 Diabetes type 2, controlled E11.9 Seizure disorder G40.909 Atrial flutter, unspecified type I48.92 Atrial flutter type: unspecified Hypothyroidism (acquired) E03.9 Coronary artery disease involving [place] coronary artery of [place] heart without angina pectoris I25.10 Associated angina: without angina Coronary Disease-Associated Artery/Lesion type: [place] artery [place] vs. transplanted heart: [place] heart
== END 2023-07-19 17:16 | DRG 91 ==
LOC: ED 17:56 → 3W 19:58 → SUATTDRO 19:58 → 3W 20:38

== ENCOUNTER 2023-10-15 19:57 | Inpatient (IN) ==
--- NOTE | 2023-10-15 20:34 | Emergency Department Note ---
Impression & Plan Fall, Hypoxia, Head injury, Lumbar contusion, COPD exacerbation, Vomiting ED Provider Note NAME: LUCIAN LOPEZ AGE: 83 SEX: M : 1940 ARRIVES VIA: Ambulance INFORMANT: Patient, EMS ED PROVIDER(S): Marck De La Fuente DO CHIEF COMPLAINT: Head injury HPI: The patient is an 83-year-old male who presented to the emergency department after a fall. The patient fell many hours ago. He fell backwards striking the back of his head. He had no injury and denies having any headache at this time. The patient presented to the emergency department because he had an episode of emesis and his significant other called 911 because she was concerned that there was something wrong. The patient denies having any back pain or neck pain but the patient reportedly had back pain that his is concerned about. He was also placed on oxygen prior to arrival as the patient was noted to have low oxygen saturation. He has a history of COPD. The patient himself denies having any lower extremity pain or swelling. He denies having any difficulty ambulating. ROS: See above HPI for pertinent positives & negatives. A total of 10 systems reviewed and were otherwise negative. PAST MEDICAL HISTORY: See Below PAST SURGICAL HISTORY: See Below FAMILY HISTORY: See Below SOCIAL HISTORY: See Below HOME MEDICATIONS: See Below ALLERGIES: See Below VITALS: See Below PHYSICAL EXAMINATION: GENERAL: Patient is awake alert in no acute distress patient is resting comfortably and showing no signs of anxiety EYES: The conjunctivae are clear. The pupils are round and reactive. EARS, NOSE, MOUTH AND THROAT: The nose is without any evidence of any deformity. Mucous membranes are moist. Tongue is midline. NECK: The neck is nontender and supple. RESPIRATORY: Diminished breath sounds are noted throughout with scattered rhonchi. There is mild conversational dyspnea. CARDIOVASCULAR: Regular rate and rhythm noted there no murmurs rubs or gallops normal S1 normal S2. GASTROINTESTINAL: The abdomen is soft. Abdomen is nontender. BACK: No midline tenderness or or step-off noted range of motion in flexion extension as well as rotation no signs of muscle spasm noted MUSCULOSKELETAL/EXTREMITIES: There is no evidence of gross deformity full range of motion is noted in the hips and shoulders. SKIN: There is no obvious evidence of any rash. There are no petechiae, pallor or cyanosis noted. NEUROLOGIC: Patient is awake alert and oriented x3. Strength is symmetric. Voice was clear. There is no facial droop. MEDICAL DECISION MAKING: The patient is an 83-year-old male who presented to the emergency department after a fall. Reportedly the patient had a fall approximately 4 to 5 hours ago. He struck his back as well as the back of his head. There is no reported loss of conscious. The patient arrived without any complaints but he had an episode of emesis and this is why his significant other called 911. The patient was not found to have any acute traumatic injury on CT of the brain or cervical spine. He had no lumbar spine abnormality noted on CT either. The patient had abnormal lung sounds as well as hypoxia. I am unsure if this is his COPD or possibly the episode of emesis he may have aspirated. He was treated with a DuoNeb. He was reevaluated multiple times. He continues to feel better but his oxygen saturation continues to drop on room air. For this reason I discussed his condition with the on-call [facility] hospitalist. They have agreed to evaluate the patient in the emergency department for further management and disposition. Triage Nursing notes reviewed. Prior medical records reviewed Vital Signs: reviewed and remarkable for hypoxia and elevated blood pressure. Differential diagnosis: Reactive airway disease, pneumonia, pneumothorax, COPD, CHF, infections, cardiac ischemia, pulmonary embolism, musculoskeletal, gastrointestinal, as well as other pathologies. ER treatment provided: See below Diagnostics interpreted by me: ECG: EKG was obtained in the emergency department. My interpretation is atrial fibrillation at 97 bpm. PVC was noted. Nonspecific ST segment abnormalities noted. This was compared to a tracing from May 17, 2023. No changes were noted. Cardiac Monitoring: An order was placed for continuous cardiac monitoring. The monitor shows a rate of 100 bpm with sinus rhythm. Laboratory studies: As stated above and show below. Imaging studies: See below. Radiographic imaging was reviewed by myself Consultation(s): I discussed this case with Dr. Dickey who is on-call for the [facility]ist group. Past Med/Surg History Problem List (Updated 10/15/23 @ 22:55 by Marck De La Fuente DO) Vomiting (Acute) COPD exacerbation (Acute) Lumbar contusion (Acute) Head injury (Acute) Hypoxia (Acute) Fall (Acute) Contusion of scalp (Acute) CHI (closed head injury) (Acute) Acute sinusitis Ambulatory dysfunction (Acute) Periorbital ecchymosis of left eye (Acute) Fracture of maxillary sinus (Acute) Closed fracture nasal bone (Acute) Elevated serum lactate dehydrogenase (Acute) Weakness (Acute) Acute respiratory failure with hypoxia Acute head trauma (Acute) Hypomagnesemia (Acute) Hematuria Fecal retention Hypoxia (Acute) Iron deficiency anemia Multiple pulmonary nodules Ex-smoker History of basal cell carcinoma (BCC) of skin (05/2020) Cerebral cavernoma (Chronic) Chronic pulmonary aspiration Tremor HANDS V tach Atelectasis 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 Vitamin D deficiency (Chronic) Tubular adenoma of colon (Chronic) Tinnitus of both ears (Chronic) Chronic rhinitis (Chronic) Anosmia Arteriosclerotic coronary artery disease (Chronic) Depression (Chronic) Dyslipidemia (Chronic) Mild cognitive impairment (Chronic) Osteoporosis (Chronic) Asthma (Chronic) TIA (transient ischemic attack) 2017 X 1 AND NONE SINCE Medical History Dementia Pneumonia HTN (hypertension), benign Fall from standing Fall Diabetes type 2, controlled Seizure disorder (01/2019) Vomiting Tobacco use disorder Vomiting COPD (chronic obstructive pulmonary disease) SOB (shortness of breath) Fever Chewing tobacco use Hypoxia Pneumonia History of sinusitis History of acute bronchitis with bronchospasm Osteoarthritis Anxiety CAD (coronary artery disease) Seizure 01/29/19 - X2 ON THAT DAY AND WAS ADMITTED AND STARTED ON [place] AND NO SEIZURE SINCE Abdominal aortic aneurysm (AAA), 30-34 mm diameter Benign prostatic hyperplasia with urinary obstruction Hypertension Hypothyroidism (acquired) Type 2 diabetes mellitus Vitamin B12 deficiency Paroxysmal atrial fibrillation DX [address] [place]UELLAR IN [place] Atrial flutter DX [address] CUELLAR IN [place] Surgical History Presence of Watchman left atrial appendage closure device (06/24/22) S/P Mohs surgery for basal cell carcinoma History of colonoscopy History of lung biopsy (03/27/19) Navigational Bronchoscopy with ICG Dye, Robotic Right Video Assisted Thoracoscopy with Right Lower Lobe Wedge Resection with Mediastinal Lymphadenectomy and Lymph Node Biopsy Dr. Lynn 03/27/19 Hx of cardiac cath 2017 -- HEART CATH WITH STENT 6 [facility] WITH DR CUELLAR LAST SEEN 12/20/2018 History of anesthesia reaction states "stopped breathing during MOHS procedure at the [facility] H/O 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 Family History Father Heart disease Other COPD (chronic obstructive pulmonary disease) Depression Family history non-contributory Denies family history of Ovarian cancer Prostate cancer Coronary heart disease Myocardial infarction Breast cancer Seizure Lung cancer Colorectal cancer Social History Smoking Status: Former smoker Tobacco Type: Cigarettes Age Started Using Tobacco: 18; Age Quit Using Tobacco: 33; packs per day: 2; Cigarettes Per Day: 20-40; Second Hand Exposure: No; Do You Dip or Chew Tobacco: Yes; Hx Alcohol Use: No Hx Substance Use: No Preferred Language: Thai Communication Ability: Impaired Visual Impairment: No Limitations Hearing Ability: Use of Hearing Aid Demolition Expert Required: No Beliefs That Will Affect Care: None marital status: Current Living Situation: Spouse Current Living Situation Comment: in house with current occupational status: retired 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[employer], 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[employer] How many Children do You have: 3 Feels Safe at Home: Yes Childhood Exposure to Second-Hand Smoke: Yes Diet: regular Diet Comment: regular caffeine: No during the past year weight has: remained stable Dental Care, Regularly: No Physical Activity Frequency: Does not Exercise Seatbelt Use: never Sunscreen Use: Yes Assistive Devices: Cane and Walker Allergies Allergies Allergy/AdvReac Type Severity Reaction Status Date / Time pollen extracts Allergy Mild CONGESTION Verified 10/15/23 21:53 Home Meds Home Medications Medication Instructions Recorded Confirmed cyanocobalamin (vitamin B-12) 1,000 mcg PO QAM 11/07/19 10/15/23 1,000 mcg tablet (Vitamin B-12) aspirin 81 mg tablet,delayed 81 mg PO QAM 02/26/21 10/15/23 release guaifenesin 600 mg tablet, 1,200 mg PO Q12 PRN cough 07/11/22 10/15/23 extended release 12 hr (Mucinex) lisinopril 5 mg tablet 5 mg PO HS 05/17/23 10/15/23 metoprolol tartrate 25 mg tablet 50 mg PO QAM 08/02/23 10/15/23 Previous Rx's Medication Instructions Recorded fluticasone fur. 100 mcg-umeclid 1 inh inhalation QAM #180 ea 01/19/23 62.5 mcg-vilant 25 mcg inhalat.powder (Trelegy Ellipta) levetiracetam 500 mg tablet 1,000 mg (2 x 500 mg) PO BID 90 03/17/23 (Keppra) days #360 tabs pantoprazole 40 mg tablet,delayed 40 mg PO DAILY #90 tabs 03/20/23 release atorvastatin 40 mg tablet (Lipitor) 40 mg PO HS #90 tabs 05/31/23 montelukast 10 mg tablet 10 mg PO HS #90 tabs 07/26/23 diltiazem HCl 120 mg 120 mg PO HS #90 caps 08/29/23 capsule,extended release 24 hr sertraline 100 mg tablet 100 mg PO QAM #90 tabs 08/29/23 levothyroxine 50 mcg tablet 50 mcg PO DAILY #90 tabs 09/14/23 Results & Data (ED) Vital Signs Vital Signs - 24 hr 10/15/23 20:06 10/15/23 20:07 10/15/23 20:35 Temperature 37.4 C Temperature Source Oral Pulse Rate 106 H 92 H 90 Pulse Rate [Apical] Pulse Rhythm Regular Pulse Rhythm [Apical] Respiratory Rate 16 16 Respiratory Effort / Characteristics Non-Labored Respiratory Depth Normal Blood Pressure 152/87 H Blood Pressure [Right Arm] Blood Pressure Mean 108 Blood Pressure Mean [Right Arm] Pulse Oximetry 95 90 Oxygen Delivery Method Nasal Cannula Room Air Oxygen Flow Rate 3 Sepsis Recent Fever Within 48 Hours No Sepsis New/Unexplained Change in Mental Status N/A Sepsis Action Taken by Nursing No Action Required 10/15/23 23:10 Temperature Temperature Source Pulse Rate Pulse Rate [Apical] 100 H Pulse Rhythm Pulse Rhythm [Apical] Regular Respiratory Rate 16 Respiratory Effort / Characteristics Non-Labored Spontaneous Respiratory Depth Normal Blood Pressure Blood Pressure [Right Arm] 157/87 H Blood Pressure Mean Blood Pressure Mean [Right Arm] 110 Pulse Oximetry 96 Oxygen Delivery Method Nasal Cannula Oxygen Flow Rate 2 Sepsis Recent Fever Within 48 Hours Sepsis New/Unexplained Change in Mental Status Sepsis Action Taken by Retirement Medications Current Medication List: was personally reviewed by me Laboratory Data Attestation: I reviewed the patient's lab results. 10/15/23 20:13 10/15/23 20:13 Lab Results 10/15/23 10/15/23 10/15/23 Range/Units 20:13 20:39 21:50 WBC 12.99 H (4.8-10.8) K/ul RBC 4.55 L (4.70-6.10) M/uL Hgb 11.2 L (14.0-18.0) g/dl Hct 36.2 L (42.0-52.0) % MCV 79.6 L (80.0-100.0) fL MCH 24.6 L (25.0-34.0) pg MCHC 30.9 L (32.0-36.0) g/dL RDW Std Deviation 57.8 H (36.4-46.3) fL RDW Coeff of Ashu 20.5 H (11.5-14.5) % Plt Count 168 (130-400) K/uL MPV 10.3 (9.4-12.4) fL Immature Gran % (Auto) 0.5 % Neut % (Auto) 87.6 % Lymph % (Auto) 5.6 % Woodruff % (Auto) 5.8 % Eos % (Auto) 0.2 % Baso % (Auto) 0.3 % Neut # (Auto) 11.38 H (1.40-6.50) K/uL Lymph # (Auto) 0.73 L (1.20-3.40) K/uL Woodruff # (Auto) 0.75 H (0.11-0.59) K/uL Eos # (Auto) 0.03 (0.00-0.50) K/uL Baso # (Auto) 0.04 (0.00-0.20) K/uL Immature Gran # (Auto) 0.06 (0.01-0.20) K/uL Anisocytosis Present PT 11.3 (9.0-12.0) Seconds INR 1.0 (0.9-1.1) APTT 23 (21-31) Seconds PTT Ratio 0.9 VBG pH 7.40 (7.36-7.41) VBG pCO2 45 (38-50) mmHg VBG pO2 35 mmHg VBG HCO3 28 mmol/L VBG O2 Saturation < 60.0 % VBG Base Excess 2.5 mEq/L Sodium 137 (136-145) mmol/L Potassium 4.1 (3.5-5.1) mmol/L Chloride 103 (98-107) mmol/L Carbon Dioxide 25 (21-32) mmol/L Anion Gap 9 (3-11) BUN 20 (6-23) mg/dl Creatinine 1.01 (0.6-1.4) mg/dl Est Cr Clr Drug Dosing 48.6 ml/min Est GFR ( Amer) 79.9 ml/min Est GFR (Non-Af Amer) 68.9 ml/min BUN/Creatinine Ratio 19.8 (10-20) Glucose 150 H (70-99(Fasting)) mg/dl Calcium 9.5 (8.6-10.3) mg/dl Total Bilirubin 0.5 (0.2-1.0) mg/dl AST 17 (13-39) U/L ALT 12 (7-52) U/L Alkaline Phosphatase 98 (34-104) U/L Troponin I High Sens 5.6 (0-20) pg/ml B-Natriuretic Peptide 338 H (0-100) pg/ml Total Protein 8.1 (6.0-8.3) gm/dl Albumin 4.4 (3.4-5.0) gm/dl Globulin 3.7 (2.5-4.0) gm/dl Albumin/Globulin Ratio 1.2 (0.9-2) Lipase 12 (11-82) U/L SARS-CoV-2 (PCR) NEGATIVE (Negative) Influenza Type A (PCR) Negative (Neg) Influenza Type B (PCR) Negative (Neg) RSV (RT-PCR) Negative (Neg) Administered Medications Discontinued Medications Albuterol (Albut/Ipratrop 3mg/0.5mg Neb 3 Ml Vial) 3 ml NEB NOW STA; Protocol Stop: 10/15/23 20:31 Last Admin: 10/15/23 21:10 Dose: 3 ml Documented By: [facility] Imaging Data Attestation: I personally reviewed and interpreted this imaging study as follows: My Impression: 1 view chest x-ray was obtained in the emergency department. My interpretation is COPD changes, no definite filtrate, final report pending CT of the brain was obtained in the emergency department. My interpretation is no intracranial hemorrhage or mass effect, final report below. Radiologist's Impression: Cervical Spine CT 10/15/23 20:30 Exam(s): CT C SPINE EXAM: CT Cervical Spine Without Intravenous Contrast CLINICAL HISTORY: fall. TECHNIQUE: Axial computed tomography images of the cervical spine without intravenous contrast. CTDI is 24.28 mGy and DLP is 476.79 mGy-cm. Automated exposure control was utilized for the study. A dose lowering technique was utilized adhering to the principles of ALARA. COMPARISON: CT cervical spine 07/14/2023 FINDINGS: Vertebrae: The vertebral bodies are intact without acute traumatic injury. A grade 1 retrolisthesis of C3 on C4 and C4 on C5 is stable in appearance from the previous examination. Grade 1 anterolisthesis of C5 on C6 and C7 on T1 are stable. The pedicles, facet joints, spinous processes and transverse processes are intact. Multilevel diffuse facet hypertrophic arthrosis noted, right side greater than left, stable. Discs/spinal canal/neural foramina: Moderately severe disc spondylosis with narrowing and marginal hypertrophic osteophyte changes, most notable at C3-C4 and C6-C7. No appreciable new acute traumatic osseous central canal stenosis identified. Soft tissues: Unremarkable. IMPRESSION: No acute osseous traumatic injury or significant alteration in alignment involving the cervical spine when compared to the previous examination. Significant multilevel degenerative changes demonstrate no appreciable alteration when compared to the prior examination. Electronically signed by: Jona Aquino MD 10/15/23 21:[address] 10/15/23 20:30 Exam(s): CT HEAD Without Contrast EXAM: CT Head Without Intravenous Contrast CLINICAL HISTORY: fall. TECHNIQUE: Axial computed tomography images of the head/brain without intravenous contrast. CTDI is 36.9 mGy and DLP is 546.36 mGy-cm. Automated exposure control was utilized for the study. A dose lowering technique was utilized adhering to the principles of ALARA. COMPARISON: CT head without contrast dated 07/16/2023 FINDINGS: Brain: Areas of decreased attenuation in the deep cerebral white matter are consistent with small vessel ischemic/degenerative changes. The cerebral and cerebellar sulci are prominent consistent with brain atrophy. No intracranial hemorrhage. No significant mass effect. Ventricles: No midline shift. Stable enlargement of the lateral and third ventricles. Bones/joints: Unremarkable. No acute fracture. Soft tissues: No significant overlying acute traumatic soft tissue abnormality identified. Vasculature: Atherosclerotic disease. Sinuses: Diffuse mucosal opacification of nearly all ethmoid air cells and the inferior frontal sinuses. There is near complete opacification of the right sphenoid sinus with mucoperiosteal sclerosis. Mastoid air cells: Unremarkable as visualized. No mastoid effusion. IMPRESSION: 1. No acute intracranial process identified. No skull fracture. 2. No appreciable alteration in appearance involving the presumed chronic age-related findings, as noted above. Electronically signed by: Jona Aquino MD 10/15/23 21:[address] 10/15/23 20:30 Exam(s): CT L SPINE EXAM: CT Lumbar Spine Without Intravenous Contrast CLINICAL HISTORY: fall. TECHNIQUE: Axial computed tomography images of the lumbar spine without intravenous contrast. CTDI is 31.67 mGy and DLP is 794.78 mGy-cm. Automated exposure control was utilized for the study. A dose lowering technique was utilized adhering to the principles of ALARA. COMPARISON: No relevant prior studies available. FINDINGS: Vertebrae: The lumbar vertebral body heights are maintained. No anterolisthesis or retrolisthesis is noted. The pedicles, facet joints, spinous processes and transverse processes are intact. Facet hypertrophic changes noted throughout the inferior lumbar spine bilaterally. Discs/spinal canal/neural foramina: There is mild to moderate multilevel disc space narrowing, most prominent at L4-L5 and L5-S1 with anterior hypertrophic osteophytes noted. Vacuum phenomenon is noted at L5-S1. Evaluation the central canal is limited without intrathecal contrast. However, there is a trefoil appearance with moderate narrowing suggested at L3-L4 level. Moderately severe similar narrowing is noted at L4-L5. There is somewhat asymmetric posterior disc bulge with a small central posterior protrusive component suggested at L5-S1 without severe narrowing. Soft tissues: No significant acute traumatic paraspinal soft tissue abnormality identified. Vasculature: The heavily calcified abdominal aorta is only partially included posteriorly but is prominent, measuring 3 cm in transverse diameter. IMPRESSION: 1. No acute osseous traumatic injury or significant abnormal alignment involving the lumbar spine. Incidental chronic multilevel degenerative changes noted. 2. Abdominal aortic aneurysm with extensive calcification. No obvious acute periaortic abnormality posteriorly. Electronically signed by: Jona Aquino MD 10/15/23 22:03 PM Discharge Plan Visit Data Chief Complaint: Fall Stated Complaint: Fall, Head Injury, Vomiting, Back Pain ED Provider: Marck De La Fuente Discharge Problem: Fall, Hypoxia, Head injury, Lumbar contusion, COPD exacerbation, Vomiting Patient Disposition: Being Evaluated by Hospitalist Forms Stand Alone Forms: My [facility] Prescriptions Prescriptions: No Action Treledeidra Ellipta 100-62.5-25 mcg blister with device 1 inh INHALATION QAM Qty: 180 1RF atorvastatin [Lipitor] 40 mg tablet 40 mg PO HS Qty: 90 3RF montelukast 10 mg tablet 10 mg PO HS Qty: 90 1RF sertraline 100 mg tablet 100 mg PO QAM Qty: 90 2RF diltiazem HCl 120 mg capsule,extended release 24hr 120 mg PO HS Qty: 90 1RF levothyroxine 50 mcg tablet 50 mcg PO DAILY Qty: 90 3RF guaifenesin [Mucinex] 600 mg tablet extended release 12hr 1,200 mg PO Q12 PRN (Reason: cough) pantoprazole 40 mg tablet,delayed release (DR/EC) 40 mg PO DAILY Qty: 90 2RF levetiracetam [Keppra] 500 mg tablet 1,000 mg PO BID 90 Days Qty: 360 3RF metoprolol tartrate 25 mg tablet 50 mg PO QAM cyanocobalamin (vitamin B-12) [Vitamin B-12] 1,000 mcg tablet 1,000 mcg PO QAM lisinopril 5 mg tablet 5 mg PO HS aspirin 81 mg Tablet,Delayed Release (Dr/Ec) 81 mg PO QAM Referrals Referrals: Lorna Tucker DO [Primary Care Provider] - Discharge Problem: Fall Qualifiers: Encounter type: initial encounter Qualified Code(s): W19.XXXA - Unspecified fall, initial encounter Head injury Qualifiers: Encounter type: initial encounter Qualified Code(s): S09.90XA - Unspecified injury of head, initial encounter Lumbar contusion Qualifiers: Encounter type: initial encounter Qualified Code(s): S30.0XXA - Contusion of lower back and pelvis, initial encounter Vomiting Qualifiers: Vomiting type: unspecified Nausea presence: with nausea Qualified Code(s): R 11.2 - Nausea with vomiting, unspecified
[2023-10-15 20:55] LABS: Basophils # (auto) 0.04 K/uL (0.00-0.20); Basophils % (auto) 0.3 %; Eosinophils # (auto) 0.03 K/uL (0.00-0.50); Eosinophils % (auto) 0.2 %; Hematocrit (blood only) 36.2 % (42.0-52.0); Hemoglobin 11.2 g/dl (14.0-18.0); Immature Granulocytes # (auto) 0.06 K/uL (0.01-0.20); Immature Granulocytes % (auto) 0.5 %; Lymphocytes # (auto) 0.73 K/uL (1.20-3.40); Lymphocytes % (auto) 5.6 %; Mean Corpuscular Hemoglobin 24.6 pg (25.0-34.0); Mean Corpuscular Hgb Conc 30.9 g/dL (32.0-36.0); Mean Corpuscular Volume 79.6 fL (80.0-100.0); Mean Platelet Volume 10.3 fL (9.4-12.4); Monocytes # (auto) 0.75 K/uL (0.11-0.59); Monocytes % (auto) 5.8 %; Neutrophils # (auto) 11.38 K/uL (1.40-6.50); Neutrophils % (auto) 87.6 %; Platelet Count 168 K/uL (130-400); RDW Coefficient of Variation 20.5 % (11.5-14.5); RDW Standard Deviation 57.8 fL (36.4-46.3); Red Blood Count 4.55 M/uL (4.70-6.10); White Blood Count 12.99 K/ul (4.8-10.8)
[2023-10-15 21:02] LABS: Albumin Globulin Ratio 1.2 (0.9-2); Albumin Level 4.4 gm/dl (3.4-5.0); BUN Creatinine Ratio 19.8 (10-20); Bilirubin,Total 0.5 mg/dl (0.2-1.0); Calcium 9.5 mg/dl (8.6-10.3); Creatinine Clr Calc Pharmacy 48.6 ml/min; Est GFR (African American) 79.9 ml/min; Est GFR (Non-African American) 68.9 ml/min; Globulin 3.7 gm/dl (2.5-4.0); Potassium 4.1 mmol/L (3.5-5.1); Total Protein 8.1 gm/dl (6.0-8.3)
[2023-10-15 21:09] LABS: Troponin I High Sensitivity 5.6 pg/ml (0-20)
[2023-10-15] MEDS: ALBUT/IPRATROP 3MG/0.5MG NEB 3 ML VIAL NEB STA (21:10)
[2023-10-15 21:14] LABS: Anisocytosis Present
[2023-10-15 21:25] LABS: Partial Thromboplastin Ratio 0.9; Partial Thromboplastin Time 23 Seconds (21-31); Prothrombin Time 11.3 Seconds (9.0-12.0)
[2023-10-15 21:27] LABS: Influenza A virus by PCR Negative (Neg); Influenza B virus by PCR Negative (Neg); RSV by PCR Negative (Neg); SARS CoV2 RNA(COVID-19) Ceph NEGATIVE (Negative)
--- NOTE | 2023-10-15 21:45 | CT Scan Report ---
Exam(s): CT C SPINE EXAM: CT Cervical Spine Without Intravenous Contrast CLINICAL HISTORY: fall. TECHNIQUE: Axial computed tomography images of the cervical spine without intravenous contrast. CTDI is 24.28 mGy and DLP is 476.79 mGy-cm. Automated exposure control was utilized for the study. A dose lowering technique was utilized adhering to the principles of ALARA. COMPARISON: CT cervical spine 07/14/2023 FINDINGS: Vertebrae: The vertebral bodies are intact without acute traumatic injury. A grade 1 retrolisthesis of C3 on C4 and C4 on C5 is stable in appearance from the previous examination. Grade 1 anterolisthesis of C5 on C6 and C7 on T1 are stable. The pedicles, facet joints, spinous processes and transverse processes are intact. Multilevel diffuse facet hypertrophic arthrosis noted, right side greater than left, stable. Discs/spinal canal/neural foramina: Moderately severe disc spondylosis with narrowing and marginal hypertrophic osteophyte changes, most notable at C3-C4 and C6-C7. No appreciable new acute traumatic osseous central canal stenosis identified. Soft tissues: Unremarkable. IMPRESSION: No acute osseous traumatic injury or significant alteration in alignment involving the cervical spine when compared to the previous examination. Significant multilevel degenerative changes demonstrate no appreciable alteration when compared to the prior examination. Electronically signed by: Jona Aquino MD 10/15/23 21:44 PM
--- NOTE | 2023-10-15 21:48 | CT Scan Report ---
Exam(s): CT HEAD Without Contrast EXAM: CT Head Without Intravenous Contrast CLINICAL HISTORY: fall. TECHNIQUE: Axial computed tomography images of the head/brain without intravenous contrast. CTDI is 36.9 mGy and DLP is 546.36 mGy-cm. Automated exposure control was utilized for the study. A dose lowering technique was utilized adhering to the principles of ALARA. COMPARISON: CT head without contrast dated 07/16/2023 FINDINGS: Brain: Areas of decreased attenuation in the deep cerebral white matter are consistent with small vessel ischemic/degenerative changes. The cerebral and cerebellar sulci are prominent consistent with brain atrophy. No intracranial hemorrhage. No significant mass effect. Ventricles: No midline shift. Stable enlargement of the lateral and third ventricles. Bones/joints: Unremarkable. No acute fracture. Soft tissues: No significant overlying acute traumatic soft tissue abnormality identified. Vasculature: Atherosclerotic disease. Sinuses: Diffuse mucosal opacification of nearly all ethmoid air cells and the inferior frontal sinuses. There is near complete opacification of the right sphenoid sinus with mucoperiosteal sclerosis. Mastoid air cells: Unremarkable as visualized. No mastoid effusion. IMPRESSION: 1. No acute intracranial process identified. No skull fracture. 2. No appreciable alteration in appearance involving the presumed chronic age-related findings, as noted above. Electronically signed by: Jona Aquino MD 10/15/23 21:47 PM
[2023-10-15 21:59] LABS: Base Excess VBG 2.5 mEq/L; HCO3 VBG 28 mmol/L; Oxygen Saturation VBG < 60.0 %; PCO2 VBG 45 mmHg (38-50); PO2 VBG 35 mmHg
--- NOTE | 2023-10-15 22:03 | CT Scan Report ---
Exam(s): CT L SPINE EXAM: CT Lumbar Spine Without Intravenous Contrast CLINICAL HISTORY: fall. TECHNIQUE: Axial computed tomography images of the lumbar spine without intravenous contrast. CTDI is 31.67 mGy and DLP is 794.78 mGy-cm. Automated exposure control was utilized for the study. A dose lowering technique was utilized adhering to the principles of ALARA. COMPARISON: No relevant prior studies available. FINDINGS: Vertebrae: The lumbar vertebral body heights are maintained. No anterolisthesis or retrolisthesis is noted. The pedicles, facet joints, spinous processes and transverse processes are intact. Facet hypertrophic changes noted throughout the inferior lumbar spine bilaterally. Discs/spinal canal/neural foramina: There is mild to moderate multilevel disc space narrowing, most prominent at L4-L5 and L5-S1 with anterior hypertrophic osteophytes noted. Vacuum phenomenon is noted at L5-S1. Evaluation the central canal is limited without intrathecal contrast. However, there is a trefoil appearance with moderate narrowing suggested at L3-L4 level. Moderately severe similar narrowing is noted at L4-L5. There is somewhat asymmetric posterior disc bulge with a small central posterior protrusive component suggested at L5-S1 without severe narrowing. Soft tissues: No significant acute traumatic paraspinal soft tissue abnormality identified. Vasculature: The heavily calcified abdominal aorta is only partially included posteriorly but is prominent, measuring 3 cm in transverse diameter. IMPRESSION: 1. No acute osseous traumatic injury or significant abnormal alignment involving the lumbar spine. Incidental chronic multilevel degenerative changes noted. 2. Abdominal aortic aneurysm with extensive calcification. No obvious acute periaortic abnormality posteriorly. Electronically signed by: Jona Aquino MD 10/15/23 22:03 PM
--- NOTE | 2023-10-16 00:10 | History & Physical Report ---
Date of Service October 16, 2023 Assessment & Plan (1) Fall: Plan: 83yo male presenting after a ground level fall at home with mild head trauma. Patient did develop some nausea and vomiting following the fall. No complaints now, however. He states he feels at baseline. Neuro exam and imaging are unremarkable -Medical with telemetry -Neuro checks q shift -Maintain fall precautions -PT/OT evaluation Plan COPD - no cough, SOB or wheeze -Continue Duonebs, Umeclidinium/Vilanterol -Continue Singulair -Continue Guaifenesin -Supplemental O2 as needed Anxiety/Depression - chronic. stable -Continue Sertraline GERD - chronic. Stable -Continue Protonix Hypertension - blood pressure mildly elevated -Continue Metoprolol and Lisinopril CAD - no chest pain -Continue Metoprolol, Lisinopril, Atorvastatin, ASA AF - rate controlled. No anticoagulation -Continue Diltiazem and Metoprolol -Off anticoagulation due to high fall risk Hypothyroidism - chronic. stable. TSH on 06/02/23 normal at 3.587 -Continue Synthroid Seizure disorder - chronic. stable -Continue Keppra F/E/N - Saline lock. Electrolytes WNL. Regular diet/Easy to chew consistency as tolerated Ppx - SCDs to bilateral LE Code - Full per discussion with patient Dispo- Admit to medical with telemetry History of Present Illness Chief Complaint: fall Primary Care Provider: Lorna Tucker DO Jose J Zurita is an 83yo male with multiple medical comorbidities, HTN, DM, CAD, COPD, Seizure disorder, Hypothyroidism and Dementia presenting from home after a fall. Patient reports he was walking to the couch in the living room when he lost his balance and fell. He did hit the back of his head off the floor. Denies chest pain, palpitations, dizziness, cough, SOB, abdominal pain, diarrhea. No LOC or headache. Patient's developed nausea and vomiting prompting his to bring him in. Patient with no complaints In the ER he is afebrile. Placed on 2L NC for borderline low saturations ER Course: Albuterol neb Allergies Allergy/AdvReac Type Severity Reaction Status Date / Time pollen extracts Allergy Mild CONGESTION Verified 10/15/23 21:53 Home Medications Medication Instructions Recorded Confirmed Type cyanocobalamin (vitamin B-12) 1,000 mcg PO QAM 11/07/19 10/15/23 History 1,000 mcg tablet (Vitamin B-12) aspirin 81 mg tablet,delayed 81 mg PO QAM 02/26/21 10/15/23 History release guaifenesin 600 mg tablet, 1,200 mg PO Q12 PRN cough 07/11/22 10/15/23 History extended release 12 hr (Mucinex) fluticasone fur. 100 mcg-umeclid 1 inh inhalation QAM #180 ea 01/19/23 10/15/23 Rx 62.5 mcg-vilant 25 mcg inhalat.powder (Trelegy Ellipta) levetiracetam 500 mg tablet 1,000 mg (2 x 500 mg) PO BID 90 03/17/23 10/15/23 Rx (Keppra) days #360 tabs pantoprazole 40 mg tablet,delayed 40 mg PO DAILY #90 tabs 03/20/23 10/15/23 Rx release lisinopril 5 mg tablet 5 mg PO HS 05/17/23 10/15/23 History atorvastatin 40 mg tablet (Lipitor) 40 mg PO HS #90 tabs 05/31/23 10/15/23 Rx montelukast 10 mg tablet 10 mg PO HS #90 tabs 07/26/23 10/15/23 Rx metoprolol tartrate 25 mg tablet 50 mg PO QAM 08/02/23 10/15/23 History diltiazem HCl 120 mg 120 mg PO HS #90 caps 08/29/23 10/15/23 Rx capsule,extended release 24 hr sertraline 100 mg tablet 100 mg PO QAM #90 tabs 08/29/23 10/15/23 Rx levothyroxine 50 mcg tablet 50 mcg PO DAILY #90 tabs 09/14/23 10/15/23 Rx Past Med/Surg History Problem List Vomiting (Acute) COPD exacerbation (Acute) Lumbar contusion (Acute) Head injury (Acute) Hypoxia (Acute) Fall (Acute) Contusion of scalp (Acute) CHI (closed head injury) (Acute) Acute sinusitis Ambulatory dysfunction (Acute) Periorbital ecchymosis of left eye (Acute) Fracture of maxillary sinus (Acute) Closed fracture nasal bone (Acute) Elevated serum lactate dehydrogenase (Acute) Weakness (Acute) Acute respiratory failure with hypoxia Acute head trauma (Acute) Hypomagnesemia (Acute) Hematuria Fecal retention Hypoxia (Acute) Iron deficiency anemia Multiple pulmonary nodules Ex-smoker History of basal cell carcinoma (BCC) of skin (05/2020) Cerebral cavernoma (Chronic) Chronic pulmonary aspiration Tremor HANDS V tach Atelectasis 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 Vitamin D deficiency (Chronic) Tubular adenoma of colon (Chronic) Tinnitus of both ears (Chronic) Chronic rhinitis (Chronic) Anosmia Arteriosclerotic coronary artery disease (Chronic) Depression (Chronic) Dyslipidemia (Chronic) Mild cognitive impairment (Chronic) Osteoporosis (Chronic) Asthma (Chronic) TIA (transient ischemic attack) 2017 X 1 AND NONE SINCE Medical History Dementia Pneumonia HTN (hypertension), benign Fall from standing Fall Diabetes type 2, controlled Seizure disorder (01/2019) Vomiting Tobacco use disorder Vomiting COPD (chronic obstructive pulmonary disease) SOB (shortness of breath) Fever Chewing tobacco use Hypoxia Pneumonia History of sinusitis History of acute bronchitis with bronchospasm Osteoarthritis Anxiety CAD (coronary artery disease) Seizure 01/29/19 - X2 ON THAT DAY AND WAS ADMITTED AND STARTED ON [place] AND NO SEIZURE SINCE Abdominal aortic aneurysm (AAA), 30-34 mm diameter Benign prostatic hyperplasia with urinary obstruction Hypertension Hypothyroidism (acquired) Type 2 diabetes mellitus Vitamin B12 deficiency Paroxysmal atrial fibrillation DX [address] [place] Atrial flutter DX [address] [place] Surgical History Presence of Watchman left atrial appendage closure device (06/24/22) S/P Mohs surgery for basal cell carcinoma History of colonoscopy History of lung biopsy (03/27/19) Navigational Bronchoscopy with ICG Dye, Robotic Right Video Assisted Thoracoscopy with Right Lower Lobe Wedge Resection with Mediastinal Lymphadenectomy and Lymph Node Biopsy Dr. Lynn 03/27/19 Hx of cardiac cath 2017 -- HEART CATH WITH STENT [address] [facility] WITH [address] CUELLAR LAST SEEN 12/20/2018 History of anesthesia reaction states "stopped breathing during MOHS procedure at the [facility] H/O 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 Family History Father Heart disease Other COPD (chronic obstructive pulmonary disease) Depression Family history non-contributory Denies family history of Ovarian cancer Prostate cancer Coronary heart disease Myocardial infarction Breast cancer Seizure Lung cancer Colorectal cancer Social History Smoking Status: Former smoker Tobacco Type: Cigarettes Age Started Using Tobacco: 18; Age Quit Using Tobacco: 33; packs per day: 2; Cigarettes Per Day: 20-40; Second Hand Exposure: No; Do You Dip or Chew Tobacco: No; Hx Alcohol Use: No Hx Substance Use: No Preferred Language: Syriac Communication Ability: Effective Visual Impairment: No Limitations Hearing Ability: Use of Hearing Aid Shipping Associate Required: No Beliefs That Will Affect Care: None marital status: Current Living Situation: Spouse Current Living Situation Comment: in house with current occupational status: retired 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, 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[employer] ([place]) How many Children do You have: 3 Feels Safe at Home: Yes Safety Concerns: Feels Safe At This Time Childhood Exposure to Second-Hand Smoke: Yes Diet: regular Diet Comment: regular caffeine: No during the past year weight has: remained stable Dental Care, Regularly: No Physical Activity Frequency: Does not Exercise Seatbelt Use: never Sunscreen Use: Yes Assistive Devices: Glasses Review of Systems Review of Systems: All systems reviewed & are unremarkable except as noted in HPI & below Physical Exam Physical Exam: General: elderly male patient resting comfortably, NAD, non-toxic in appearance, AA&O to person Skin: warm, dry, intact, no rashes or lesions HEENT: Small bump on posterior head, PERRL, EOMI, anicteric sclera, conjunctiva without injection, external ear normal to inspection and nontender, nares patent, moist mucus membranes, dentition intact, no oropharyngeal lesions, neck supple, trachea midline, no LAD, no thyromegaly, no JVD Heart: +S1/S2, irregularly irregular, no m/r/g Lungs: equal air entry bilaterally, no rales/rhonchi/wheezes Abd: +BS, soft, NT/ND, no masses/organomegaly/ascites Ext: warm, 2+ pulses in UE/LE bilaterally, no clubbing/cyanosis or edema Neuro: nonfocal, speech intact, no facial droop, moving all extremities on command with equal strength 5/5 Results & Data Results & Data Vital Signs (Past 12 Hours) Vital Signs Temp Pulse Pulse Resp BP BP Pulse Ox 10/16/23 00:02 102 H 10/15/23 23:10 100 H 16 157/87 H 96 10/15/23 20:35 90 16 90 10/15/23 20:07 92 H 10/15/23 20:06 37.4 C 106 H 16 152/87 H 95 O2 Del Method O2 Flow Rate 10/16/23 00:02 10/15/23 23:10 Nasal Cannula 2 10/15/23 20:35 Room Air 10/15/23 20:07 10/15/23 20:06 Nasal Cannula 3 Laboratory Results Laboratory Results WBC 12.99 K/ul (4.8-10.8) H 10/15/23 20:13 RBC 4.55 M/uL (4.70-6.10) L 10/15/23 20:13 Hgb 11.2 g/dl (14.0-18.0) L 10/15/23 20:13 Hct 36.2 % (42.0-52.0) L 10/15/23 20:13 MCV 79.6 fL (80.0-100.0) L 10/15/23 20:13 MCH 24.6 pg (25.0-34.0) L 10/15/23 20:13 MCHC 30.9 g/dL (32.0-36.0) L 10/15/23 20:13 RDW Std Deviation 57.8 fL (36.4-46.3) H 10/15/23 20:13 RDW Coeff of Ashu 20.5 % (11.5-14.5) H 10/15/23 20:13 Plt Count 168 K/uL (130-400) 10/15/23 20:13 MPV 10.3 fL (9.4-12.4) 10/15/23 20:13 Immature Gran % (Auto) 0.5 % 10/15/23 20:13 Neut % (Auto) 87.6 % 10/15/23 20:13 Lymph % (Auto) 5.6 % 10/15/23 20:13 [place] % (Auto) 5.8 % 10/15/23 20:13 Eos % (Auto) 0.2 % 10/15/23 20:13 Baso % (Auto) 0.3 % 10/15/23 20:13 Neut # (Auto) 11.38 K/uL (1.40-6.50) H 10/15/23 20:13 Lymph # (Auto) 0.73 K/uL (1.20-3.40) L 10/15/23 20:13 [place] # (Auto) 0.75 K/uL (0.11-0.59) H 10/15/23 20:13 Eos # (Auto) 0.03 K/uL (0.00-0.50) 10/15/23 20:13 Baso # (Auto) 0.04 K/uL (0.00-0.20) 10/15/23 20:13 Immature Gran # (Auto) 0.06 K/uL (0.01-0.20) 10/15/23 20:13 Anisocytosis Present 10/15/23 20:13 PT 11.3 Seconds (9.0-12.0) 10/15/23 20:13 INR 1.0 (0.9-1.1) 10/15/23 20:13 APTT 23 Seconds (21-31) 10/15/23 20:13 PTT Ratio 0.9 10/15/23 20:13 VBG pH 7.40 (7.36-7.41) 10/15/23 21:50 VBG pCO2 45 mmHg (38-50) 10/15/23 21:50 VBG pO2 35 mmHg 10/15/23 21:50 VBG HCO3 28 mmol/L 10/15/23 21:50 VBG O2 Saturation < 60.0 % 10/15/23 21:50 VBG Base Excess 2.5 mEq/L 10/15/23 21:50 Sodium 137 mmol/L (136-145) 10/15/23 20:13 Potassium 4.1 mmol/L (3.5-5.1) 10/15/23 20:13 Chloride 103 mmol/L (98-107) 10/15/23 20:13 Carbon Dioxide 25 mmol/L (21-32) 10/15/23 20:13 Anion Gap 9 (3-11) 10/15/23 20:13 BUN 20 mg/dl (6-23) 10/15/23 20:13 Creatinine 1.01 mg/dl (0.6-1.4) 10/15/23 20:13 Est Cr Clr Drug Dosing 48.6 ml/min 10/15/23 20:13 Est GFR ( Amer) 79.9 ml/min 10/15/23 20:13 Est GFR (Non-Af Amer) 68.9 ml/min 10/15/23 20:13 BUN/Creatinine Ratio 19.8 (10-20) 10/15/23 20:13 Glucose 150 mg/dl (70-99(Fasting)) H 10/15/23 20:13 Calcium 9.5 mg/dl (8.6-10.3) 10/15/23 20:13 Phosphorus 3.3 mg/dl (2.5-4.9) 10/15/23 20:13 Magnesium 1.6 mg/dl (1.7-2.4) L 10/15/23 20:13 Total Bilirubin 0.5 mg/dl (0.2-1.0) 10/15/23 20:13 AST 17 U/L (13-39) 10/15/23 20:13 ALT 12 U/L (7-52) 10/15/23 20:13 Alkaline Phosphatase 98 U/L (34-104) 10/15/23 20:13 Troponin I High Sens 5.6 pg/ml (0-20) 10/15/23 20:13 B-Natriuretic Peptide 338 pg/ml (0-100) H 10/15/23 21:50 Total Protein 8.1 gm/dl (6.0-8.3) 10/15/23 20:13 Albumin 4.4 gm/dl (3.4-5.0) 10/15/23 20:13 Globulin 3.7 gm/dl (2.5-4.0) 10/15/23 20:13 Albumin/Globulin Ratio 1.2 (0.9-2) 10/15/23 20:13 Lipase 12 U/L (11-82) 10/15/23 20:13 SARS-CoV-2 (PCR) NEGATIVE (Negative) 10/15/23 20:39 Influenza Type A (PCR) Negative (Neg) 10/15/23 20:39 Influenza Type B (PCR) Negative (Neg) 10/15/23 20:39 RSV (RT-PCR) Negative (Neg) 10/15/23 20:[address] 10/15/23 20:30 Exam(s): CT C SPINE EXAM: CT Cervical Spine Without Intravenous Contrast CLINICAL HISTORY: fall. TECHNIQUE: Axial computed tomography images of the cervical spine without intravenous contrast. CTDI is 24.28 mGy and DLP is 476.79 mGy-cm. Automated exposure control was utilized for the study. A dose lowering technique was utilized adhering to the principles of ALARA. COMPARISON: CT cervical spine 07/14/2023 FINDINGS: Vertebrae: The vertebral bodies are intact without acute traumatic injury. A grade 1 retrolisthesis of C3 on C4 and C4 on C5 is stable in appearance from the previous examination. Grade 1 anterolisthesis of C5 on C6 and C7 on T1 are stable. The pedicles, facet joints, spinous processes and transverse processes are intact. Multilevel diffuse facet hypertrophic arthrosis noted, right side greater than left, stable. Discs/spinal canal/neural foramina: Moderately severe disc spondylosis with narrowing and marginal hypertrophic osteophyte changes, most notable at C3-C4 and C6-C7. No appreciable new acute traumatic osseous central canal stenosis identified. Soft tissues: Unremarkable. IMPRESSION: No acute osseous traumatic injury or significant alteration in alignment involving the cervical spine when compared to the previous examination. Significant multilevel degenerative changes demonstrate no appreciable alteration when compared to the prior examination. Electronically signed by: Jona Aquino MD 10/15/23 21:[address] 10/15/23 20:30 Exam(s): CT HEAD Without Contrast EXAM: CT Head Without Intravenous Contrast CLINICAL HISTORY: fall. TECHNIQUE: Axial computed tomography images of the head/brain without intravenous contrast. CTDI is 36.9 mGy and DLP is 546.36 mGy-cm. Automated exposure control was utilized for the study. A dose lowering technique was utilized adhering to the principles of ALARA. COMPARISON: CT head without contrast dated 07/16/2023 FINDINGS: Brain: Areas of decreased attenuation in the deep cerebral white matter are consistent with small vessel ischemic/degenerative changes. The cerebral and cerebellar sulci are prominent consistent with brain atrophy. No intracranial hemorrhage. No significant mass effect. Ventricles: No midline shift. Stable enlargement of the lateral and third ventricles. Bones/joints: Unremarkable. No acute fracture. Soft tissues: No significant overlying acute traumatic soft tissue abnormality identified. Vasculature: Atherosclerotic disease. Sinuses: Diffuse mucosal opacification of nearly all ethmoid air cells and the inferior frontal sinuses. There is near complete opacification of the right sphenoid sinus with mucoperiosteal sclerosis. Mastoid air cells: Unremarkable as visualized. No mastoid effusion. IMPRESSION: 1. No acute intracranial process identified. No skull fracture. 2. No appreciable alteration in appearance involving the presumed chronic age-related findings, as noted above. Electronically signed by: Jona Aquino MD 10/15/23 21:[address] 10/15/23 20:30 Exam(s): CT L SPINE EXAM: CT Lumbar Spine Without Intravenous Contrast CLINICAL HISTORY: fall. TECHNIQUE: Axial computed tomography images of the lumbar spine without intravenous contrast. CTDI is 31.67 mGy and DLP is 794.78 mGy-cm. Automated exposure control was utilized for the study. A dose lowering technique was utilized adhering to the principles of ALARA. COMPARISON: No relevant prior studies available. FINDINGS: Vertebrae: The lumbar vertebral body heights are maintained. No anterolisthesis or retrolisthesis is noted. The pedicles, facet joints, spinous processes and transverse processes are intact. Facet hypertrophic changes noted throughout the inferior lumbar spine bilaterally. Discs/spinal canal/neural foramina: There is mild to moderate multilevel disc space narrowing, most prominent at L4-L5 and L5-S1 with anterior hypertrophic osteophytes noted. Vacuum phenomenon is noted at L5-S1. Evaluation the central canal is limited without intrathecal contrast. However, there is a trefoil appearance with moderate narrowing suggested at L3-L4 level. Moderately severe similar narrowing is noted at L4-L5. There is somewhat asymmetric posterior disc bulge with a small central posterior protrusive component suggested at L5-S1 without severe narrowing. Soft tissues: No significant acute traumatic paraspinal soft tissue abnormality identified. Vasculature: The heavily calcified abdominal aorta is only partially included posteriorly but is prominent, measuring 3 cm in transverse diameter. IMPRESSION: 1. No acute osseous traumatic injury or significant abnormal alignment involving the lumbar spine. Incidental chronic multilevel degenerative changes noted. 2. Abdominal aortic aneurysm with extensive calcification. No obvious acute periaortic abnormality posteriorly. Electronically signed by: Jona Aquino MD 10/15/23 22:03 PM ECG Additional Comments: EKG with AF at 97bpm, no acute ischemic changes Code Status & VTE Plan VTE Prophylaxis Plan VTE Prophylaxis will be ordered: Yes PG Care Time/CCT Total # of Minutes Spent Total Time Spent with Patient: Total time spent is greater than 50% in coordination of care (as documented) at patient's floor/unit and/or counseling patient: Coding Level of Care Code 89355 INT INP/OBS CARE 2/55MIN Diagnoses Fall W19.XXXA Encounter type: initial encounter (1) Fall Encounter type: initial encounter Qualified Code(s): W19.XXXA - Unspecified fall, initial encounter
[2023-10-16] MEDS ORDERED: ONDANSETRON INJ 2 MG/ML 2 ML VIAL IV PRN (01:39)
[2023-10-16] MEDS ORDERED: ACETAMINOPHEN 325 MG TAB PO PRN (01:39)
[2023-10-16 02:23] LABS: Magnesium 1.6 mg/dl (1.7-2.4); Phosphorus 3.3 mg/dl (2.5-4.9)
[2023-10-16] MEDS: LEVOTHYROXINE SODIUM 50 MCG TABLET PO SCH (05:38)
--- NOTE | 2023-10-16 07:28 | XRay Report ---
XR chest 1V portable CLINICAL HISTORY: Chest pain, nonspecific TECHNIQUE: Single frontal radiograph of the chest was obtained. Comparison: Comparison is made to chest radiograph 07/17/2023 FINDINGS: No lines and tubes are seen. Calcified aortic knob is seen. The lungs are clear. No evidence of pleur al effusion or pneumothorax. IMPRESSION: No acute chest disease. ACT 112: Negative or not required by law. Electronically signed by: Serafin Chaidez M.D. 10/16/2023 7:27 AM
[2023-10-16] MEDS: UMECLIDINIUM/VILANTEROL 62.5/25MCG 7 PUFFS/INHALER INH SCH (08:24)
[2023-10-16] MEDS: FLUTICASONE FUROATE 100MCG 14 PUFFS/INHALER INH SCH (08:24)
[2023-10-16] MEDS: guaiFENesin 600 MG TABCR PO PRN (08:24)
[2023-10-16] MEDS: MAGNESIUM SULFATE / D5W 1 GM/100 ML BAG IV SCH (08:24)
[2023-10-16] MEDS: METOPROLOL TARTRATE 50 MG TAB PO SCH (08:25)
[2023-10-16] MEDS: SERTRALINE HCL 100 MG TABLET PO SCH (08:25)
[2023-10-16] MEDS: ASPIRIN 81 MG ECTAB PO SCH (08:25)
[2023-10-16] MEDS: PANTOprazole 40 MG TAB PO SCH (08:25)
[2023-10-16] MEDS: levETIRAcetam 500 MG TAB PO SCH (08:25)
[2023-10-16] MEDS ORDERED: NON-FORMULARY MEDICATION (Fluticasone-Umeclidin-Vilanter [Trelegy Ellipta] 100-62.5-25 mcg INH SCH (09:00)
[2023-10-16 09:25] LABS: Ferritin 21.7 ng/ml (8-388)
--- NOTE | 2023-10-16 11:29 | Electrocardiogram Report ---
Test Reason : Blood Pressure : / mmHG Vent. Rate : 097 BPM Atrial Rate : 000 BPM P-R Int : 000 ms QRS Dur : 082 ms QT Int : 348 ms P-R-T Axes : 000 039 -61 degrees QTc Int : 441 ms Atrial fibrillation with premature ventricular or aberrantly conducted complexes Nonspecific ST abnormality Abnormal ECG When compared with ECG of 17-MAY-2023 11:23, Nonspecific T wave abnormality no longer evident in Lateral leads Confirmed by Mohsen Miguel ([id number]) on 10/16/2023 11:28:59 AM Referred By: REFERRED SELF Confirmed By:Deniz Miguel
--- NOTE | 2023-10-16 12:17 | Hospitalist Progress Note ---
Date of Service October 16, 2023 Assessment & Plan (1) Fall: Plan: Mechanical. No syncope. Fortunately there are no fractures. OT and PT assessments requested (2) Hypomagnesemia: Plan: Parenteral replacement. Serial labs (3) Hypoxia: Plan: He has not oxygen dependent at home. Chest x-ray is unremarkable. This may simply be due to atelectasis that is not readily visible on the chest x-ray. Incentive spirometry ordered (4) Microcytic anemia: Plan: No overt GI bleeding. Iron studies pending. Will check fecal occult blood Plan To be determined. OT and PT assessments requested Admission and Anticipated Discharge Date Admission Date: October 16, 2023 Subjective Alert but demented. He is oriented to name only. He has microcytic anemia and probably is iron deficient. Fecal occult blood and iron studies pending. Will recheck urine analysis. He is on low-flow oxygen at this time but chest x-ray is clear. Incentive spirometry ordered to see if this resolves the problem. Magnesium replacement underway. OT and PT assessments requested and pending Review of Systems 2 Review of Systems: Constitutional-no fever or chills ENT-no blurred vision, no double vision, no epistaxis, no sore throat Respiratory-no cough, no wheezing, no shortness of breath Cardiac-no palpitations, no chest pain, no syncope GI-no nausea, vomiting, diarrhea, melena, hematochezia -no urinary retention, no urinary incontinence, no dysuria, no hematuria Musculoskeletal-no joint pain, no muscle tenderness Skin-no bruising, no rashes, no pruritus Neuro-no isolated weakness, no paresthesia Psych-no depression, no anxiety Physical Exam 2 Physical Exam: General-alert and oriented x1, no fever, no chills HEENT-head atraumatic and normocephalic, pupils equal and reactive to light, extraocular muscles intact Neck-no lymphadenopathy or thyromegaly, trachea midline Chest-clear to auscultation. No rales, wheezing or rhonchi Cardiac-regular rate and rhythm, normal S1 and S2 Abdomen-normal bowel sounds, no hepatosplenomegaly Extremities-no cyanosis, clubbing, or edema Neuro-cranial nerves II through XII intact, motor and sensory function within normal limits, strength symmetrical with generalized weakness consistent with age, no focal deficits Psych-normal affect, normal mood Results & Data Results & Data Vital Signs (Past 12 Hours) Vital Signs Temp Pulse Pulse Pulse Resp BP BP 10/16/23 08:10 36.5 C 96 H 18 130/82 10/16/23 01:42 10/16/23 01:42 36.2 C L 94 H 18 149/75 H 10/16/23 01:06 94 H 16 130/92 Pulse Ox O2 Del Method O2 Flow Rate 10/16/23 08:10 92 Room Air 10/16/23 01:42 Nasal Cannula 1 10/16/23 01:42 92 Room Air 10/16/23 01:06 94 Nasal Cannula 1 Laboratory Results 10/15/23 20:13 10/15/23 20:13 PG Care Time/CCT Total # of Minutes Spent Total Time Spent with Patient: Total time spent is greater than 50% in coordination of care (as documented) at patient's floor/unit and/or counseling patient: Coding Level of Care Code 90688 SUB INP/OBS CARE 3/50MIN Diagnoses Fall W19.XXXA Encounter type: initial encounter Hypomagnesemia E83.42 Hypoxia R09.02 Microcytic anemia D50.9 (1) Fall Encounter type: initial encounter Qualified Code(s): W19.XXXA - Unspecified fall, initial encounter
[2023-10-16 13:49] LABS: Appearance Urine Clear (Clear); Bacteria Urine Automated None Seen (None Seen); Bilirubin Urine Negative (Negative); Blood Urine Negative (Negative); Cast Urine Automated 0-2 /lpf (0-2); Color Urine Yellow; Epithelial Cell Urine Auto 0-2 /hpf (0-2); Glucose Urine UA Negative (Negative); Ketones Urine Negative (Negative); Leukocyte Esterase Urine Negative (Negative); Nitrite Urine Negative (Negative); Protein Urine 1+ (Negative); RBC Urine Automated 0-2 /hpf (0-2); Specific Gravity Urine 1.018 (1.000-1.030); Urobilinogen Urine Negative (Negative); WBC Urine Automated 0-5 /hpf (0-5)
[2023-10-16] MEDS: FERROUS SULFATE 325 MG TAB PO SCH (16:39)
[2023-10-16] MEDS: dilTIAZem HCL 120 MG CAPCR PO SCH (20:37)
[2023-10-16] MEDS: lisinopril 5 MG TAB PO SCH (20:37)
[2023-10-16] MEDS: MONTELUKAST SODIUM 10 MG TABLET PO SCH (20:38)
[2023-10-16] MEDS: ATORVASTATIN 40 MG TAB PO SCH (20:38)
[2023-10-17 06:43] LABS: Hematocrit (blood only) 35.8 % (42.0-52.0); Hemoglobin 11.1 g/dl (14.0-18.0); Mean Corpuscular Hemoglobin 24.6 pg (25.0-34.0); Mean Corpuscular Volume 79.2 fL (80.0-100.0); Mean Platelet Volume 10.3 fL (9.4-12.4); Platelet Count 147 K/uL (130-400); RDW Coefficient of Variation 20.7 % (11.5-14.5); RDW Standard Deviation 58.2 fL (36.4-46.3); Red Blood Count 4.52 M/uL (4.70-6.10); White Blood Count 6.64 K/ul (4.8-10.8)
[2023-10-17 07:07] LABS: BUN Creatinine Ratio 13.5 (10-20); Calcium 9.3 mg/dl (8.6-10.3); Creatinine Clr Calc Pharmacy 51.4 ml/min; Est GFR (Non-African American) 73.3 ml/min; Magnesium 2.1 mg/dl (1.7-2.4); Potassium 3.7 mmol/L (3.5-5.1)
--- NOTE | 2023-10-17 13:55 | Hospitalist Progress Note ---
Date of Service October 17, 2023 Assessment & Plan (1) Fall: Plan: Mechanical. No syncope. Fortunately there are no fractures. Continue OT and PT while hospitalized (2) Hypomagnesemia: Plan: Corrected with parenteral replacement. Serial labs (3) Hypoxia: Plan: Resolved. He is now on room air. He is using the incentive spirometer as directed. Chest x-ray is unremarkable. I suspect the hypoxia was due to subsegmental atelectasis. (4) Microcytic anemia: Plan: No overt GI bleeding. Iron studies noted. Fecal occult blood remains pending. He is now on oral iron supplementation Plan Hopeful discharge to [facility] tomorrow, October 17 Admission and Anticipated Discharge Date Admission Date: October 16, 2023 Subjective Alert. No new problems. Magnesium corrected to 2.1. IPR placement pending at [facility]. He is now on room air. He is using the incentive spirometry as ordered Review of Systems 2 Review of Systems: Constitutional-no fever or chills ENT-no blurred vision, no double vision, no epistaxis, no sore throat Respiratory-no cough, no wheezing, no shortness of breath Cardiac-no palpitations, no chest pain, no syncope GI-no nausea, vomiting, diarrhea, melena, hematochezia -no urinary retention, no urinary incontinence, no dysuria, no hematuria Musculoskeletal-no joint pain, no muscle tenderness Skin-no bruising, no rashes, no pruritus Neuro-no isolated weakness, no paresthesia Psych-no depression, no anxiety Physical Exam 2 Physical Exam: General-alert and oriented x1, no fever, no chills HEENT-head atraumatic and normocephalic, pupils equal and reactive to light, extraocular muscles intact Neck-no lymphadenopathy or thyromegaly, trachea midline Chest-clear to auscultation. No rales, wheezing or rhonchi Cardiac-regular rate and rhythm, normal S1 and S2 Abdomen-normal bowel sounds, no hepatosplenomegaly Extremities-no cyanosis, clubbing, or edema Neuro-cranial nerves II through XII intact, motor and sensory function within normal limits, strength symmetrical with generalized weakness consistent with age, no focal deficits Psych-normal affect, normal mood Results & Data Results & Data Vital Signs (Past 12 Hours) Vital Signs Temp Pulse Resp BP Pulse Ox O2 Del Method 10/17/23 08:02 Room Air 10/17/23 07:08 37.0 C 95 H 16 116/69 95 Room Air Laboratory Results 10/17/23 06:04 10/17/23 06:04 PG Care Time/CCT Total # of Minutes Spent Total Time Spent with Patient: Total time spent is greater than 50% in coordination of care (as documented) at patient's floor/unit and/or counseling patient: Coding Level of Care Code 61549 SUB INP/OBS CARE 2/35MIN Diagnoses Fall W19.XXXA Encounter type: initial encounter Hypomagnesemia E83.42 Hypoxia R09.02 Microcytic anemia D50.9 (1) Fall Encounter type: initial encounter Qualified Code(s): W19.XXXA - Unspecified fall, initial encounter
[2023-10-18 07:01] VITALS: RESP 17
[2023-10-18 14:44] VITALS: BP 132/69; PULSE 69; TEMP 98.1
--- NOTE | 2023-10-18 14:59 | Discharge Summary ---
Date of Service October 18, 2023 Admission HPI Per Admitting Provider Jose J Zurita is an 83yo male with multiple medical comorbidities, HTN, DM, CAD, COPD, Seizure disorder, Hypothyroidism and Dementia presenting from home after a fall. Patient reports he was walking to the couch in the living room when he lost his balance and fell. He did hit the back of his head off the floor. Denies chest pain, palpitations, dizziness, cough, SOB, abdominal pain, diarrhea. No LOC or headache. Patient's developed nausea and vomiting prompting his to bring him in. Patient with no complaints In the ER he is afebrile. Placed on 2L NC for borderline low saturations ER Course: Albuterol neb Principal Diagnosis Mechanical fall, microcytic anemia, acute hypoxic respiratory failure, pulmonary atelectasis, Hypomagnesemia Discharge Exam General-alert and oriented x1, no fever, no chills HEENT-head atraumatic and normocephalic, pupils equal and reactive to light, extraocular muscles intact Neck-no lymphadenopathy or thyromegaly, trachea midline Chest-clear to auscultation. No rales, wheezing or rhonchi Cardiac-regular rate and rhythm, normal S1 and S2 Abdomen-normal bowel sounds, no hepatosplenomegaly Extremities-no cyanosis, clubbing, or edema Neuro-cranial nerves II through XII intact, motor and sensory function within normal limits, strength symmetrical with generalized weakness consistent with age, no focal deficits Psych-normal affect, normal mood Discharge Data Allergies Allergy/AdvReac Type Severity Reaction Status Date / Time pollen extracts Allergy Mild CONGESTION Verified 10/15/23 21:53 Consultations 10/15/23 23:23 ED Decision to Admit Stat Ordered Studies 10/15/23 20:30 CT cervical spine wo con Stat CT head/brain wo con Stat CT lumbar spine wo con Stat Hospital Course (1) Fall: Mechanical. No syncope. Fortunately there are no fractures. Continue OT and PT while hospitalized (2) Hypomagnesemia: Corrected with parenteral replacement. Serial labs (3) Hypoxia: Resolved. He is now on room air. He is using the incentive spirometer as directed. Chest x-ray is unremarkable. I suspect the hypoxia was due to subsegmental atelectasis. (4) Microcytic anemia: No overt GI bleeding. Iron studies noted. Fecal occult blood remains pending. He is now on oral iron supplementation Plan [facility] todayOctober 17 Total Time Total Time Spent Total Time Spent (In Minutes): 45 minutes Discharge Plan Discharge Items Patient Disposition: Transfer Inpatient Rehab Fac Reason For Visit: FALL, HEAD TRAUMA Discharge Diagnosis: Mechanical fall, microcytic anemia, acute hypoxic respiratory failure, pulmonary atelectasis, hypomagnesemia Activity: Resume your previous activity Non-emergency contact: Primary Care Provider Call non-emergency contact if: your symptoms worsen Follow-up/Referrals: Lorna Tucker DO [Primary Care Provider] - Diet: Regular and Heart Healthy Addtl Attending Provider Instructions: See primary care provider soon as possible after discharge from [facility] Pending Studies at Discharge: No Stand-Alone Forms: My [facility] [address] Skilled Items Patient informed of condition?: Yes DNR: Yes Discharge Level of Care: Acute rehab Communicable Disease: No Discharge Prognosis: Stable Lines: None Urinary Catheter: No Medications and DC Order Prescriptions: New ferrous sulfate 325 mg (65 mg iron) Tablet,Delayed Release (Dr/Ec) 325 mg PO BIDM Qty: 0 0RF Continued Trelegy Ellipta 100-62.5-25 mcg blister with device 1 inh INHALATION QAM Qty: 180 1RF atorvastatin [Lipitor] 40 mg tablet 40 mg PO HS Qty: 90 3RF montelukast 10 mg tablet 10 mg PO HS Qty: 90 1RF sertraline 100 mg tablet 100 mg PO QAM Qty: 90 2RF diltiazem HCl 120 mg capsule,extended release 24hr 120 mg PO HS Qty: 90 1RF levothyroxine 50 mcg tablet 50 mcg PO DAILY Qty: 90 3RF guaifenesin [Mucinex] 600 mg tablet extended release 12hr 1,200 mg PO Q12 PRN (Reason: cough) pantoprazole 40 mg tablet,delayed release (DR/EC) 40 mg PO DAILY Qty: 90 2RF levetiracetam [Keppra] 500 mg tablet 1,000 mg PO BID 90 Days Qty: 360 3RF metoprolol tartrate 25 mg tablet 50 mg PO QAM cyanocobalamin (vitamin B-12) [Vitamin B-12] 1,000 mcg tablet 1,000 mcg PO QAM lisinopril 5 mg tablet 5 mg PO HS aspirin 81 mg Tablet,Delayed Release (Dr/Ec) 81 mg PO QAM Discharge Orders: Discharge Order (Routine); Ordered 10/18/23 Ordered By: Darrel Staley Admission Data Admit Date/Time: 10/16/23 00:09 Attending Provider: Darrel Staley Admit Provider: Patricia Dickey Primary Care Provider: Lorna Tucker. Other Providers: Patricia Dickey; [facility] Coding Level of Care Code 47953 INP/OBS DISCH >30 MIN Diagnoses Fall W19.XXXA Encounter type: initial encounter Hypomagnesemia E83.42 Hypoxia R09.02 Microcytic anemia D50.9
[2023-10-18 16:43] VITALS: O2SAT 92
== END 2023-10-18 18:08 | DRG 91 ==
LOC: ED 19:57 → SUATTDRO 10-16 00:09 → 3W 10-16 00:09

== ENCOUNTER 2024-01-25 19:19 | Observation (INO) ==
--- NOTE | 2024-01-25 20:44 | Emergency Department Note ---
Impression & Plan Fall ADMIT ED Provider Note HPI: History obtained from patient, bedside RN via EMS report. The patient is a 83-year-old gentleman who presents the emergency department with a chief complaint of generalized weakness and a mechanical fall earlier this evening when he was at home. Fall was reportedly witnessed by family. Family reportedly had concerns that the patient was "weak". On arrival here to the ED the patient is a poor historian secondary to underlying dementia, he is able to follow commands, he does not have any focal deficits, he ambulates all extremity spontaneously. Patient denies any focal complaints of pain. ROS: - Per HPI Differential Diagnosis: Mechanical fall secondary to deconditioning/ambulatory dysfunction, intracranial hemorrhage to include subdural hematoma, urinary tract infection, sepsis, pneumonia, acute dehydration/acute kidney injury, amongst other potential pathologies. *Outpatient medications and allergy history reviewed. PE: General: Alert, frail-appearing, no acute distress HEENT: Normocephalic, trachea midline Eyes: Extraocular eye movement is intact, no scleral erythema Pulmonary: Clear to auscultation bilaterally, no wheezing Cardio: Regular rate and irregular rhythm GI: Abdomen is soft to palpation : No suprapubic tenderness MSK: No evidence of trauma or malformation of the extremities, no edema Skin: No evidence of rash Neuro: Alert, no focal deficits, ambulates all extremities spontaneously, follows commands appropriately Psychiatric: Cooperative INDEPENDENT INTERPRETATIONS: school bus monitor: (As interpreted by myself): - An order was placed for continuous cardiac monitoring - Patient was noted to be in atrial fibrillation with a rate of 90 EKG: (As interpreted by myself): Rate: 81 Rhythm: Atrial fibrillation Intervals: Within normal limits ST changes: No ST elevation Time: 1943 Chest x-ray: (As interpreted by myself): No acute disease Interventions provided in ED: -IV fluid bolus Medical Decision Making: IV was established and lab work obtained, patient was placed on quality assurance monitor chassis. Lab work shows no leukocytosis, hemoglobin is stable at 11.7, platelet count is normal, CMP does not show any evidence of any critical findings, no evidence of acute kidney injury, urinalysis does not show any evidence of infection. CT imaging of the head was obtained that does not show any evidence of any acute intracranial process. On reassessment the patient remains resting comfortably in bed, I was able to contact the patient's over the phone and she states that the patient has been weak and had some increasing ambulatory dysfunction recently at home. She states that he did have a mechanical fall today inside the house. That is what prompted the EMS call. She states that she does not feel that the patient is safe to return home and he will require inpatient rehab for his ambulatory dysfunction. I did therefore discuss the patient's presentation with the on-call hospitalist, Dr. Elena, and the patient was placed for admission in stable condition. Consultants/Discussions held with other healthcare providers: -Hospitalist, Dr. Elena Disposition discussion held by myself with: -Patient and patient's over the phone Diagnosis: 1. Ambulatory dysfunction, acute on chronic 2. Mechanical fall, acute 3. Anemia, chronic, stable 4. Elevated BUN, acute Disposition: Admission Kvng Morales DO Emergency Medicine Past Med/Surg History Problem List (Updated 01/25/24 @ 23:43 by Kvng Morales DO) Fall (Acute) Microcytic anemia Hypoxia Lumbar contusion (Acute) Head injury (Acute) Fall (Acute) Contusion of scalp (Acute) CHI (closed head injury) (Acute) Acute sinusitis Ambulatory dysfunction (Acute) Periorbital ecchymosis of left eye (Acute) Fracture of maxillary sinus (Acute) Closed fracture nasal bone (Acute) Elevated serum lactate dehydrogenase (Acute) Weakness (Acute) Acute respiratory failure with hypoxia Acute head trauma (Acute) Hypomagnesemia (Acute) Hematuria Fecal retention Hypoxia (Acute) Iron deficiency anemia Multiple pulmonary nodules Ex-smoker History of basal cell carcinoma (BCC) of skin (05/2020) Cerebral cavernoma (Chronic) Chronic pulmonary aspiration Tremor HANDS V tach Atelectasis 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 Vitamin D deficiency (Chronic) Tubular adenoma of colon (Chronic) Tinnitus of both ears (Chronic) Chronic rhinitis (Chronic) Anosmia Arteriosclerotic coronary artery disease (Chronic) Depression (Chronic) Dyslipidemia (Chronic) Mild cognitive impairment (Chronic) Osteoporosis (Chronic) Asthma (Chronic) TIA (transient ischemic attack) 2017 X 1 AND NONE SINCE Medical History Dementia Pneumonia HTN (hypertension), benign Fall from standing Fall Diabetes type 2, controlled Seizure disorder (01/2019) Vomiting Tobacco use disorder Vomiting COPD (chronic obstructive pulmonary disease) SOB (shortness of breath) Fever Chewing tobacco use Hypoxia Pneumonia History of sinusitis History of acute bronchitis with bronchospasm Osteoarthritis Anxiety CAD (coronary artery disease) Seizure 01/29/19 - X2 ON THAT DAY AND WAS ADMITTED AND STARTED ON [place] AND NO SEIZURE SINCE Abdominal aortic aneurysm (AAA), 30-34 mm diameter Benign prostatic hyperplasia with urinary obstruction Hypertension Hypothyroidism (acquired) Type 2 diabetes mellitus Vitamin B12 deficiency Paroxysmal atrial fibrillation DX [address] [place] Atrial flutter DX [address] [place] Surgical History Presence of Watchman left atrial appendage closure device (06/24/22) S/P Mohs surgery for basal cell carcinoma History of colonoscopy History of lung biopsy (03/27/19) Navigational Bronchoscopy with ICG Dye, Robotic Right Video Assisted Thoracoscopy with Right Lower Lobe Wedge Resection with Mediastinal Lymphadenectomy and Lymph Node Biopsy Dr. Lynn 03/27/19 Hx of cardiac cath 2017 -- HEART CATH WITH STENT [facility] WITH DR CUELLAR LAST SEEN 12/20/2018 History of anesthesia reaction states "stopped breathing during MOHS procedure at the [facility] [place]/O 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 Family History Father Heart disease Other COPD (chronic obstructive pulmonary disease) Depression Family history non-contributory Denies family history of Ovarian cancer Prostate cancer Coronary heart disease Myocardial infarction Breast cancer Seizure Lung cancer Colorectal cancer Social History Smoking Status: Unknown if ever smoked Tobacco Type: Cigarettes Age Started Using Tobacco: 18; Age Quit Using Tobacco: 33; packs per day: 2; Cigarettes Per Day: 20-40; Second Hand Exposure: No; Do You Dip or Chew Tobacco: No; Hx Alcohol Use: No Hx Substance Use: No Preferred Language: Ukrainian Communication Ability: Effective Visual Impairment: No Limitations Hearing Ability: Use of Hearing Aid Decorator Lighting Fixtures Required: No Beliefs That Will Affect Care: None marital status: Current Living Situation: Spouse Current Living Situation Comment: in house with current occupational status: retired 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, 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[employer] ([place]) How many Children do You have: 3 Feels Safe at Home: Yes Childhood Exposure to Second-Hand Smoke: Yes Diet: regular Diet Comment: regular caffeine: No during the past year weight has: remained stable Dental Care, Regularly: No Physical Activity Frequency: Does not Exercise Seatbelt Use: never Sunscreen Use: Yes Assistive Devices: Cane, Glasses, Oxygen - Continuous and Walker Allergies Allergies Allergy/AdvReac Type Severity Reaction Status Date / Time pollen extracts Allergy Mild CONGESTION Verified 11/06/23 10:34 Home Meds Home Medications Medication Instructions Recorded Confirmed cyanocobalamin (vitamin B-12) 1,000 mcg PO QAM 11/07/19 01/25/24 1,000 mcg tablet (Vitamin B-12) aspirin 81 mg tablet,delayed 81 mg PO QAM 02/26/21 01/25/24 release guaifenesin 600 mg tablet, 1,200 mg PO Q12 PRN cough 07/11/22 01/25/24 extended release 12 hr (Mucinex) levothyroxine 50 mcg tablet 50 mcg PO DAILYBB 01/25/24 01/25/24 Previous Rx's Medication Instructions Recorded levetiracetam 500 mg tablet 1,000 mg (2 x 500 mg) PO BID 90 03/17/23 (Keppra) days #360 tabs atorvastatin 40 mg tablet (Lipitor) 40 mg PO HS #90 tabs 05/31/23 diltiazem HCl 120 mg 120 mg PO HS #90 caps 08/29/23 capsule,extended release 24 hr sertraline 100 mg tablet 100 mg PO QAM #90 tabs 08/29/23 ferrous sulfate 325 mg (65 mg 325 mg PO Q OTHER DAY #90 tabs 11/06/23 iron) tablet,delayed release lisinopril 5 mg tablet 5 mg PO HS #90 tabs 11/27/23 pantoprazole 40 mg tablet,delayed 40 mg PO DAILY #90 tabs 12/13/23 release montelukast 10 mg tablet 10 mg PO HS #90 tabs 12/19/23 metoprolol tartrate 25 mg tablet 50 mg (2 x 25 mg) PO QAM #90 tabs 01/09/24 metformin 850 mg tablet 850 mg PO DAILY #90 tabs 01/15/24 fluticasone fur. 100 mcg-umeclid 1 inh inhalation QAM #180 ea 01/22/24 62.5 mcg-vilant 25 mcg inhalat.powder (Trelegy Ellipta) Results & Data (ED) Vital Signs Vital Signs - 24 hr 01/25/24 19:30 01/25/24 19:41 01/25/24 23:07 Temperature 36.8 C Temperature Source Oral Pulse Rate 83 94 H Pulse Rate [Finger] 71 Pulse Rhythm Pulse Rhythm [Finger] Regular Pulse Strength [Finger] Normal Respiratory Rate 18 18 Respiratory Effort / Characteristics Non-Labored Non-Labored Spontaneous Respiratory Depth Normal Normal Respiratory Pattern Regular Regular Blood Pressure 153/99 H Blood Pressure [Right Arm] 138/90 Blood Pressure Mean 117 Blood Pressure Mean [Right Arm] 106 Blood Pressure Position Sitting Pulse Oximetry 96 96 Oxygen Delivery Method Room Air Room Air Sepsis Recent Fever Within 48 Hours No Sepsis New/Unexplained Change in Mental Status No Sepsis Action Taken by Nursing No Action Required 01/25/24 23:07 Temperature Temperature Source Pulse Rate 87 Pulse Rate [Finger] Pulse Rhythm Regular Pulse Rhythm [Finger] Pulse Strength [Finger] Respiratory Rate 18 Respiratory Effort / Characteristics Respiratory Depth Respiratory Pattern Blood Pressure Blood Pressure [Right Arm] Blood Pressure Mean Blood Pressure Mean [Right Arm] Blood Pressure Position Pulse Oximetry 97 Oxygen Delivery Method Room Air Sepsis Recent Fever Within 48 Hours Sepsis New/Unexplained Change in Mental Status Sepsis Action Taken by Nursing Laboratory Data 01/25/24 19:47 01/25/24 19:47 Lab Results 01/25/24 01/25/24 Range/Units 19:47 19:51 WBC 6.40 (4.8-10.8) K/ul RBC 4.46 L (4.70-6.10) M/uL Hgb 11.7 L (14.0-18.0) g/dl Hct 37.5 L (42.0-52.0) % MCV 84.1 (80.0-100.0) fL MCH 26.2 (25.0-34.0) pg MCHC 31.2 L (32.0-36.0) g/dL RDW Std Deviation 58.6 H (36.4-46.3) fL RDW Coeff of Ashu 19.2 H (11.5-14.5) % Plt Count 169 (130-400) K/uL MPV 10.4 (9.4-12.4) fL Immature Gran % (Auto) 0.3 % Neut % (Auto) 69.5 % Lymph % (Auto) 20.6 % Archuleta % (Auto) 7.3 % Eos % (Auto) 1.4 % Baso % (Auto) 0.9 % Neut # (Auto) 4.44 (1.40-6.50) K/uL Lymph # (Auto) 1.32 (1.20-3.40) K/uL Archuleta # (Auto) 0.47 (0.11-0.59) K/uL Eos # (Auto) 0.09 (0.00-0.50) K/uL Baso # (Auto) 0.06 (0.00-0.20) K/uL Immature Gran # (Auto) 0.02 (0.01-0.20) K/uL PT 10.9 (9.0-12.0) Seconds INR 1.0 (0.9-1.1) Sodium 136 (136-145) mmol/L Potassium 4.5 (3.5-5.1) mmol/L Chloride 103 (98-107) mmol/L Carbon Dioxide 23 (21-32) mmol/L Anion Gap 10 (3-11) BUN 46 H (6-23) mg/dl Creatinine 0.85 (0.6-1.4) mg/dl Est Cr Clr Drug Dosing 56.4 ml/min Est GFR ( Amer) 94.0 ml/min Est GFR (Non-Af Amer) 81.1 ml/min BUN/Creatinine Ratio 54.1 H (10-20) Glucose 120 H (70-99(Fasting)) mg/dl Calcium 9.7 (8.6-10.3) mg/dl Magnesium 1.6 L (1.7-2.4) mg/dl Total Bilirubin 0.3 (0.2-1.0) mg/dl AST 15 (13-39) U/L ALT 10 (7-52) U/L Alkaline Phosphatase 91 (34-104) U/L Total Protein 8.0 (6.0-8.3) gm/dl Albumin 4.5 (3.4-5.0) gm/dl Globulin 3.5 (2.5-4.0) gm/dl Albumin/Globulin Ratio 1.3 (0.9-2) Urine Color Yellow Urine Appearance Clear (Clear) Urine pH 5.0 (4.5-7.5) Ur Specific Lyme 1.017 (1.000-1.030) Urine Protein 1+ H (Negative) Urine Glucose (UA) Negative (Negative) Urine Ketones Negative (Negative) Urine Blood Negative (Negative) Urine Nitrite Negative (Negative) Urine Bilirubin Negative (Negative) Urine Urobilinogen Negative (Negative) Ur Leukocyte Esterase Negative (Negative) Urine WBC (Auto) 0-5 (0-5) /hpf Urine RBC (Auto) 0-2 (0-2) /hpf U Hyaline Cast (Auto) 0-2 (0-2) /lpf U Epithel Cells (Auto) 0-2 (0-2) /hpf Urine Bacteria (Auto) None Seen (None Seen) Administered Medications Magnesium Sulfate/Dextrose (Magnesium Sulfate / D5w) 1 gm in 100 mls @ 50 mls/hr IV Q2H PATO Stop: 01/26/24 02:44 Last Admin: 01/25/24 23:27 Dose: 50 mls/hr Documented By: KAVEHW Discontinued Medications Sodium Chloride (Nss) 500 mls @ 999 mls/hr IV .Q31M PATO Stop: 01/25/24 21:15 Last Infusion: 01/25/24 22:19 Dose: Infused Documented By: Admin: 01/25/24 21:16 Dose: 999 mls/hr Documented By: [facility] Imaging Data Radiologist's Impression: Head CT 01/25/24 20:42 Exam(s): CT HEAD Without Contrast EXAM: CT Head Without Intravenous Contrast CLINICAL HISTORY: Reason for exam: fall. TECHNIQUE: Axial computed tomography images of the head/brain without intravenous contrast. CTDI is 35 mGy and DLP is 624 mGy-cm. Automated exposure control was utilized for the study. A dose lowering technique was utilized adhering to the principles of ALARA. COMPARISON: Prior head CT from October 15, 2023. FINDINGS: Brain: Remote ischemic injury of the left cerebellum. No hemorrhage. Moderate nonspecific white matter changes.. No edema. Ventricles: Advanced ventriculomegaly. Bones/joints: Unremarkable. No acute fracture. Soft tissues: Unremarkable. Sinuses: Chronic pansinusitis. No acute sinusitis. Mastoid air cells: Unremarkable as visualized. No mastoid effusion. IMPRESSION: No evidence of acute intracranial pathology. Electronically signed by: Betty Mcintosh MD 01/25/24 23:17 PM Discharge Plan Visit Data Chief Complaint: Fall Stated Complaint: GLF ED Provider: Kvng Morales Discharge Problem: Fall Forms Stand Alone Forms: My [facility] Prescriptions Prescriptions: No Action atorvastatin [Lipitor] 40 mg tablet 40 mg PO HS Qty: 90 3RF sertraline 100 mg tablet 100 mg PO QAM Qty: 90 2RF diltiazem HCl 120 mg capsule,extended release 24hr 120 mg PO HS Qty: 90 1RF lisinopril 5 mg tablet 5 mg PO HS Qty: 90 3RF pantoprazole 40 mg tablet,delayed release (DR/EC) 40 mg PO DAILY Qty: 90 2RF montelukast 10 mg tablet 10 mg PO HS Qty: 90 1RF metoprolol tartrate 25 mg tablet 50 mg PO QAM Qty: 90 3RF metformin 850 mg tablet 850 mg PO DAILY Qty: 90 1RF Trelegy Ellipta 100-62.5-25 mcg blister with device 1 inh INHALATION QAM Qty: 180 1RF guaifenesin [Mucinex] 600 mg tablet extended release 12hr 1,200 mg PO Q12 PRN (Reason: cough) levetiracetam [Keppra] 500 mg tablet 1,000 mg PO BID 90 Days Qty: 360 3RF ferrous sulfate 325 mg (65 mg iron) tablet,delayed release (DR/EC) 325 mg PO Q OTHER DAY Qty: 90 2RF cyanocobalamin (vitamin B-12) [Vitamin B-12] 1,000 mcg tablet 1,000 mcg PO QAM aspirin 81 mg Tablet,Delayed Release (Dr/Ec) 81 mg PO QAM levothyroxine 50 mcg tablet 50 mcg PO DAILYBB Referrals Referrals: Lorna Tucker DO [Primary Care Provider] -
[2024-01-25 21:07] LABS: Basophils # (auto) 0.06 K/uL (0.00-0.20); Basophils % (auto) 0.9 %; Eosinophils # (auto) 0.09 K/uL (0.00-0.50); Eosinophils % (auto) 1.4 %; Hematocrit (blood only) 37.5 % (42.0-52.0); Hemoglobin 11.7 g/dl (14.0-18.0); Immature Granulocytes # (auto) 0.02 K/uL (0.01-0.20); Immature Granulocytes % (auto) 0.3 %; Lymphocytes # (auto) 1.32 K/uL (1.20-3.40); Lymphocytes % (auto) 20.6 %; Mean Corpuscular Hemoglobin 26.2 pg (25.0-34.0); Mean Corpuscular Hgb Conc 31.2 g/dL (32.0-36.0); Mean Corpuscular Volume 84.1 fL (80.0-100.0); Mean Platelet Volume 10.4 fL (9.4-12.4); Monocytes # (auto) 0.47 K/uL (0.11-0.59); Monocytes % (auto) 7.3 %; Neutrophils # (auto) 4.44 K/uL (1.40-6.50); Neutrophils % (auto) 69.5 %; Platelet Count 169 K/uL (130-400); RDW Coefficient of Variation 19.2 % (11.5-14.5); RDW Standard Deviation 58.6 fL (36.4-46.3); Red Blood Count 4.46 M/uL (4.70-6.10)
[2024-01-25] MEDS: SODIUM CHLORIDE 0.9% 500 ML IV SCH (21:16)
[2024-01-25 21:22] LABS: Albumin Globulin Ratio 1.3 (0.9-2); Albumin Level 4.5 gm/dl (3.4-5.0); BUN Creatinine Ratio 54.1 (10-20); Bilirubin,Total 0.3 mg/dl (0.2-1.0); Calcium 9.7 mg/dl (8.6-10.3); Creatinine Clr Calc Pharmacy 56.4 ml/min; Est GFR (Non-African American) 81.1 ml/min; Globulin 3.5 gm/dl (2.5-4.0); Magnesium 1.6 mg/dl (1.7-2.4); Potassium 4.5 mmol/L (3.5-5.1)
[2024-01-25 21:32] LABS: Appearance Urine Clear (Clear); Bacteria Urine Automated None Seen (None Seen); Bilirubin Urine Negative (Negative); Blood Urine Negative (Negative); Cast Urine Automated 0-2 /lpf (0-2); Color Urine Yellow; Epithelial Cell Urine Auto 0-2 /hpf (0-2); Glucose Urine UA Negative (Negative); Ketones Urine Negative (Negative); Leukocyte Esterase Urine Negative (Negative); Nitrite Urine Negative (Negative); Protein Urine 1+ (Negative); RBC Urine Automated 0-2 /hpf (0-2); Specific Gravity Urine 1.017 (1.000-1.030); Urobilinogen Urine Negative (Negative); WBC Urine Automated 0-5 /hpf (0-5)
[2024-01-25 21:34] LABS: Prothrombin Time 10.9 Seconds (9.0-12.0)
--- NOTE | 2024-01-25 22:49 | History & Physical Report ---
Date of Service January 25, 2024 Assessment & Plan (1) Fall: (2) Confusion: (3) Mild cognitive impairment: (4) Ambulatory dysfunction: (5) Hypomagnesemia: (6) Arteriosclerotic coronary artery disease: (7) Depression: (8) Dyslipidemia: (9) Asthma: (10) Diabetes type 2, controlled: (11) Seizure disorder: Plan Status post fall/history of recurrent falls/ambulatory dysfunction/mild cognitive impairment- CT scan head negative for acute findings Chest x-ray negative Patient had recurrent admissions in the year for similar processes Follow urine culture and sensitivity Consult PT/OT, as patient has required inpatient rehab previously CAD/hypertension- Continue aspirin, diltiazem, lisinopril and metoprolol tartrate Hypomagnesemia- Magnesium 1.6 on admission Give 2 g magnesium sulfate IV, and recheck laboratories in the a.m. Seizure disorder/depression- Continue Keppra, sertraline Asthma- Continue guaifenesin, montelukast and Trelegy Ellipta Diabetes mellitus- Hold metformin Placed on Accu-Cheks in a.m. if blood sugars are elevated, glucose presently is 120 History of Present Illness Chief Complaint: The patient presents to the emergency department after family reported concerns regarding progressive generalized weakness, and was noted to have a mechanical fall earlier this evening at home. Family reports that when these kinds of things happen, he typically requires a rehab stay to improve strength and balance. Primary Care Provider: Lorna Tucker DO The patient is an 83-year-old male with a past medical history including recurrent falls, ambulatory dysfunction, history of fracture of maxillary sinus and closed fracture of nasal bone, intermittent weakness, iron deficiency anemia, multiple pulmonary nodules, cerebral cavernoma, chronic aspiration, V. tach, CAD, depression, dyslipidemia, mild cognitive impairment, asthma, and history of TIAs. Patient presents to the emergency department due to family concerns regarding progressive generalized weakness and a fall earlier this evening at home. Allergies Allergy/AdvReac Type Severity Reaction Status Date / Time pollen extracts Allergy Mild CONGESTION Verified 11/06/23 10:34 Home Medications Medication Instructions Recorded Confirmed Type cyanocobalamin (vitamin B-12) 1,000 mcg PO QAM 11/07/19 01/25/24 History 1,000 mcg tablet (Vitamin B-12) aspirin 81 mg tablet,delayed 81 mg PO QAM 02/26/21 01/25/24 History release guaifenesin 600 mg tablet, 1,200 mg PO Q12 PRN cough 07/11/22 01/25/24 History extended release 12 hr (Mucinex) levetiracetam 500 mg tablet 1,000 mg (2 x 500 mg) PO BID 90 03/17/23 01/25/24 Rx (Keppra) days #360 tabs atorvastatin 40 mg tablet (Lipitor) 40 mg PO HS #90 tabs 05/31/23 01/25/24 Rx diltiazem HCl 120 mg 120 mg PO HS #90 caps 08/29/23 01/25/24 Rx capsule,extended release 24 hr sertraline 100 mg tablet 100 mg PO QAM #90 tabs 08/29/23 01/25/24 Rx ferrous sulfate 325 mg (65 mg 325 mg PO Q OTHER DAY #90 tabs 11/06/23 01/25/24 Rx iron) tablet,delayed release lisinopril 5 mg tablet 5 mg PO HS #90 tabs 11/27/23 01/25/24 Rx pantoprazole 40 mg tablet,delayed 40 mg PO DAILY #90 tabs 12/13/23 01/25/24 Rx release montelukast 10 mg tablet 10 mg PO HS #90 tabs 12/19/23 01/25/24 Rx metoprolol tartrate 25 mg tablet 50 mg (2 x 25 mg) PO QAM #90 tabs 01/09/24 01/25/24 Rx metformin 850 mg tablet 850 mg PO DAILY #90 tabs 01/15/24 01/25/24 Rx fluticasone fur. 100 mcg-umeclid 1 inh inhalation QAM #180 ea 01/22/24 01/25/24 Rx 62.5 mcg-vilant 25 mcg inhalat.powder (Trelegy Ellipta) levothyroxine 50 mcg tablet 50 mcg PO DAILYBB 01/25/24 01/25/24 History Past Med/Surg History Problem List (Updated 01/26/24 @ 00:33 by Isauro Elena MD) Diabetes type 2, controlled Seizure disorder (01/2019) Confusion Fall (Acute) Microcytic anemia Hypoxia Lumbar contusion (Acute) Head injury (Acute) Fall (Acute) Contusion of scalp (Acute) CHI (closed head injury) (Acute) Acute sinusitis Ambulatory dysfunction (Acute) Periorbital ecchymosis of left eye (Acute) Fracture of maxillary sinus (Acute) Closed fracture nasal bone (Acute) Elevated serum lactate dehydrogenase (Acute) Weakness (Acute) Acute respiratory failure with hypoxia Acute head trauma (Acute) Hypomagnesemia (Acute) Hematuria Fecal retention Hypoxia (Acute) Iron deficiency anemia Multiple pulmonary nodules Ex-smoker History of basal cell carcinoma (BCC) of skin (05/2020) Cerebral cavernoma (Chronic) Chronic pulmonary aspiration Tremor HANDS V tach Atelectasis 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 Vitamin D deficiency (Chronic) Tubular adenoma of colon (Chronic) Tinnitus of both ears (Chronic) Chronic rhinitis (Chronic) Anosmia Arteriosclerotic coronary artery disease (Chronic) Depression (Chronic) Dyslipidemia (Chronic) Mild cognitive impairment (Chronic) Osteoporosis (Chronic) Asthma (Chronic) TIA (transient ischemic attack) 2017 X 1 AND NONE SINCE Medical History Dementia Pneumonia HTN (hypertension), benign Fall from standing Fall Diabetes type 2, controlled Seizure disorder (01/2019) Vomiting Tobacco use disorder Vomiting COPD (chronic obstructive pulmonary disease) SOB (shortness of breath) Fever Chewing tobacco use Hypoxia Pneumonia History of sinusitis History of acute bronchitis with bronchospasm Osteoarthritis Anxiety CAD (coronary artery disease) Seizure 01/29/19 - X2 ON THAT DAY AND WAS ADMITTED AND STARTED ON KEPPRA AND NO SE IZURE SINCE Abdominal aortic aneurysm (AAA), 30-34 mm diameter Benign prostatic hyperplasia with urinary obstruction Hypertension Hypothyroidism (acquired) Type 2 diabetes mellitus Vitamin B12 deficiency Paroxysmal atrial fibrillation DX [address] [place] Atrial flutter DX [address] [place]UELLAR IN [place] Surgical History Presence of Watchman left atrial appendage closure device (06/24/22) S/P Mohs surgery for basal cell carcinoma History of colonoscopy History of lung biopsy (03/27/19) Navigational Bronchoscopy with ICG Dye, Robotic Right Video Assisted Thoracoscopy with Right Lower Lobe Wedge Resection with Mediastinal Lymphadenectomy and Lymph Node Biopsy Dr. Lynn 03/27/19 Hx of cardiac cath 2017 -- HEART CATH WITH STENT 6 [facility] WITH DR CUELLAR LAST SEEN 12/20/2018 History of anesthesia reaction states "stopped breathing during MOHS procedure at the [facility] [place] H/O 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 Family History Father Heart disease Other COPD (chronic obstructive pulmonary disease) Depression Family history non-contributory Denies family history of Ovarian cancer Prostate cancer Coronary heart disease Myocardial infarction Breast cancer Seizure Lung cancer Colorectal cancer Social History Smoking Status: Unknown if ever smoked Tobacco Type: Cigarettes Age Started Using Tobacco: 18; Age Quit Using Tobacco: 33; packs per day: 2; Cigarettes Per Day: 20-40; Second Hand Exposure: No; Do You Dip or Chew Tobacco: No; Hx Alcohol Use: No Hx Substance Use: No Preferred Language: Guatemalan Communication Ability: Effective Visual Impairment: No Limitations Hearing Ability: Use of Hearing Aid Health Sciences Department Chair Required: No Beliefs That Will Affect Care: None marital status: Current Living Situation: Spouse Current Living Situation Comment: in house with current occupational status: retired 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, 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[employer] How many Children do You have: 3 Feels Safe at Home: Yes Childhood Exposure to Second-Hand Smoke: Yes Diet: regular Diet Comment: regular caffeine: No during the past year weight has: remained stable Dental Care, Regularly: No Physical Activity Frequency: Does not Exercise Seatbelt Use: never Sunscreen Use: Yes Assistive Devices: Cane, Glasses, Oxygen - Continuous and Walker Review of Systems Review of Systems: The patient denies chest pain, palpitations, shortness of breath, dyspnea on exertion, cough, lower extremity swelling, sore throat, fevers, chills, sweats, weight change, fatigue, nausea, vomiting, diarrhea , constipation, abdominal pain, pelvic pain, blood in urine or stool, dysuria, urinary frequency or urgency, loss of consciousness, rash, abnormal bruising or bleeding, focal weakness, numbness or tingling in arms or legs, generalized arthralgias or myalgias, back or neck pain, or night sweats. The review of systems is otherwise negative other than for that already noted above, and at least 10 systems have been reviewed. Physical Exam Physical Exam: The patient is awake, confused, normocephalic and atraumatic, standing upright beside the bed and in no acute distress. HEENT--PERRL, EOMI, mucous membranes and oropharynx dry. Neck--supple. No JVD. No bruits. Thyroid normal, trachea midline, no adenopathy. Heart--normal S1 and S2. No murmurs, rubs or gallops. Lungs--a few coarse breath sounds bilaterally, no respiratory distress, no accessory muscle use. Abdomen--normal bowel sounds and soft. Nontender. Nondistended, no hernias or masses, no organomegaly. Extremities--No edema. Dermatologic--skin is mildly dry Neurologic--cranial nerves II through XII grossly intact. Rheumatologic--normal range of motion. Psychiatric--confused. Results & Data Results & Data Vital Signs (Past 12 Hours) Vital Signs Temp Pulse Resp BP Pulse Ox O2 Del Method 01/25/24 19:41 94 H 01/25/24 19:30 36.8 C 83 18 153/99 H 96 Room Air Laboratory Results Laboratory Results WBC 6.40 K/ul (4.8-10.8) 01/25/24 19:47 RBC 4.46 M/uL (4.70-6.10) L 01/25/24 19:47 Hgb 11.7 g/dl (14.0-18.0) L 01/25/24 19:47 Hct 37.5 % (42.0-52.0) L 01/25/24 19:47 MCV 84.1 fL (80.0-100.0) 01/25/24 19:47 MCH 26.2 pg (25.0-34.0) 01/25/24 19:47 MCHC 31.2 g/dL (32.0-36.0) L 01/25/24 19:47 RDW Std Deviation 58.6 fL (36.4-46.3) H 01/25/24 19:47 RDW Coeff of [place] 19.2 % (11.5-14.5) H 01/25/24 19:47 Plt Count 169 K/uL (130-400) 01/25/24 19:47 MPV 10.4 fL (9.4-12.4) 01/25/24 19:47 Immature Gran % (Auto) 0.3 % 01/25/24 19:47 Neut % (Auto) 69.5 % 01/25/24 19:47 Lymph % (Auto) 20.6 % 01/25/24 19:47 [place] % (Auto) 7.3 % 01/25/24 19:47 Eos % (Auto) 1.4 % 01/25/24 19:47 Baso % (Auto) 0.9 % 01/25/24 19:47 Neut # (Auto) 4.44 K/uL (1.40-6.50) 01/25/24 19:47 Lymph # (Auto) 1.32 K/uL (1.20-3.40) 01/25/24 19:47 [place] # (Auto) 0.47 K/uL (0.11-0.59) 01/25/24 19:47 Eos # (Auto) 0.09 K/uL (0.00-0.50) 01/25/24 19:47 Baso # (Auto) 0.06 K/uL (0.00-0.20) 01/25/24 19:47 Immature Gran # (Auto) 0.02 K/uL (0.01-0.20) 01/25/24 19:47 PT 10.9 Seconds (9.0-12.0) 01/25/24 19:47 INR 1.0 (0.9-1.1) 01/25/24 19:47 Sodium 136 mmol/L (136-145) 01/25/24 19:47 Potassium 4.5 mmol/L (3.5-5.1) 01/25/24 19:47 Chloride 103 mmol/L (98-107) 01/25/24 19:47 Carbon Dioxide 23 mmol/L (21-32) 01/25/24 19:47 Anion Gap 10 (3-11) 01/25/24 19:47 BUN 46 mg/dl (6-23) H 01/25/24 19:47 Creatinine 0.85 mg/dl (0.6-1.4) 01/25/24 19:47 Est Cr Clr Drug Dosing 56.4 ml/min 01/25/24 19:47 Est GFR ( Amer) 94.0 ml/min 01/25/24 19:47 Est GFR (Non-Af Amer) 81.1 ml/min 01/25/24 19:47 BUN/Creatinine Ratio 54.1 (10-20) H 01/25/24 19:47 Glucose 120 mg/dl (70-99(Fasting)) H 01/25/24 19:47 Calcium 9.7 mg/dl (8.6-10.3) 01/25/24 19:47 Magnesium 1.6 mg/dl (1.7-2.4) L 01/25/24 19:47 Total Bilirubin 0.3 mg/dl (0.2-1.0) 01/25/24 19:47 AST 15 U/L (13-39) 01/25/24 19:47 ALT 10 U/L (7-52) 01/25/24 19:47 Alkaline Phosphatase 91 U/L (34-104) 01/25/24 19:47 Total Protein 8.0 gm/dl (6.0-8.3) 01/25/24 19:47 Albumin 4.5 gm/dl (3.4-5.0) 01/25/24 19:47 Globulin 3.5 gm/dl (2.5-4.0) 01/25/24 19:47 Albumin/Globulin Ratio 1.3 (0.9-2) 01/25/24 19:47 Urine Color Yellow 01/25/24 19:51 Urine Appearance Clear (Clear) 01/25/24 19:51 Urine pH 5.0 (4.5-7.5) 01/25/24 19:51 Ur Specific [place] 1.017 (1.000-1.030) 01/25/24 19:51 Urine Protein 1+ (Negative) H 01/25/24 19:51 Urine Glucose (UA) Negative (Negative) 01/25/24 19:51 Urine Ketones Negative (Negative) 01/25/24 19:51 Urine Blood Negative (Negative) 01/25/24 19:51 Urine Nitrite Negative (Negative) 01/25/24 19:51 Urine Bilirubin Negative (Negative) 01/25/24 19:51 Urine Urobilinogen Negative (Negative) 01/25/24 19:51 Ur Leukocyte Esterase Negative (Negative) 01/25/24 19:51 Urine WBC (Auto) 0-5 /hpf (0-5) 01/25/24 19:51 Urine RBC (Auto) 0-2 /hpf (0-2) 01/25/24 19:51 U Hyaline Cast (Auto) 0-2 /lpf (0-2) 01/25/24 19:51 U Epithel Cells (Auto) 0-2 /hpf (0-2) 01/25/24 19:51 Urine Bacteria (Auto) None Seen (None Seen) 01/25/24 19:[address] 01/25/24 20:42 Exam(s): CT HEAD Without Contrast EXAM: CT Head Without Intravenous Contrast CLINICAL HISTORY: Reason for exam: fall. TECHNIQUE: Axial computed tomography images of the head/brain without intravenous contrast. CTDI is 35 mGy and DLP is 624 mGy-cm. Automated exposure control was utilized for the study. A dose lowering technique was utilized adhering to the principles of ALARA. COMPARISON: Prior head CT from October 15, 2023. FINDINGS: Brain: Remote ischemic injury of the left cerebellum. No hemorrhage. Moderate nonspecific white matter changes.. No edema. Ventricles: Advanced ventriculomegaly. Bones/joints: Unremarkable. No acute fracture. Soft tissues: Unremarkable. Sinuses: Chronic pansinusitis. No acute sinusitis. Mastoid air cells: Unremarkable as visualized. No mastoid effusion. IMPRESSION: No evidence of acute intracranial pathology. Electronically signed by: Betty Mcintosh MD 01/25/24 23:17 PM Code Status & VTE Plan Code Status Full code VTE Prophylaxis Plan VTE Prophylaxis will be ordered: Yes PG Care Time/CCT Total # of Minutes Spent Total Time Spent with Patient: Total time spent is greater than 50% in coordination of care (as documented) at patient's floor/unit and/or counseling patient: Coding Level of Care Code 57092 INT INP/OBS CARE 3/75MIN Diagnoses Fall W19.XXXA Confusion R41.0 Mild cognitive impairment G31.84 Ambulatory dysfunction R26.2 Hypomagnesemia E83.42 Arteriosclerotic coronary artery disease I25.10 Depression, unspecified depression type F32.9 Depression Type: unspecified Dyslipidemia E78.5 Asthma J45.909 Diabetes type 2, controlled E11.9 Seizure disorder G40.909 (7) Depression Depression Type: unspecified Qualified Code(s): F32.9 - Major depressive disorder, single episode, unspecified
--- NOTE | 2024-01-25 23:18 | CT Scan Report ---
Exam(s): CT HEAD Without Contrast EXAM: CT Head Without Intravenous Contrast CLINICAL HISTORY: Reason for exam: fall. TECHNIQUE: Axial computed tomography images of the head/brain without intravenous contrast. CTDI is 35 mGy and DLP is 624 mGy-cm. Automated exposure control was utilized for the study. A dose lowering technique was utilized adhering to the principles of ALARA. COMPARISON: Prior head CT from October 15, 2023. FINDINGS: Brain: Remote ischemic injury of the left cerebellum. No hemorrhage. Moderate nonspecific white matter changes.. No edema. Ventricles: Advanced ventriculomegaly. Bones/joints: Unremarkable. No acute fracture. Soft tissues: Unremarkable. Sinuses: Chronic pansinusitis. No acute sinusitis. Mastoid air cells: Unremarkable as visualized. No mastoid effusion. IMPRESSION: No evidence of acute intracranial pathology. Electronically signed by: Betty Mcintosh MD 01/25/24 23:17 PM
[2024-01-25] MEDS: MAGNESIUM SULFATE / D5W 1 GM/100 ML BAG IV SCH (23:27)
[2024-01-26] MEDS ORDERED: ONDANSETRON INJ 2 MG/ML 2 ML VIAL IV PRN (01:38)
[2024-01-26] MEDS ORDERED: GLUCOSE 10 TAB/TUBE PO PRN (01:38)
[2024-01-26] MEDS ORDERED: CARBOHYDRATES FOR HYPOGLYCEMIA PO PRN (01:38)
[2024-01-26] MEDS ORDERED: GLUCAGON FOR INJ 1 MG VIAL SQ PRN (01:38)
[2024-01-26] MEDS ORDERED: guaiFENesin 600 MG TABCR PO PRN (01:38)
[2024-01-26] MEDS ORDERED: GLUCOSE 40% GEL 15 GM TUBE PO PRN (01:38)
[2024-01-26] MEDS ORDERED: DEXTROSE 50% 50 ML SYRINGE IV PRN (01:38)
[2024-01-26] MEDS: LEVOTHYROXINE SODIUM 50 MCG TABLET PO SCH (05:24)
--- OUTSIDE RECORDS SUMMARY | 2024-01-26 06:01 | External Medical Summary ---
Author Name Unknown Address Unknown Organization K09:[facility] [address] [place] [address] Laboratory Report Ordering Provider Test Date Status JAYSHREE SALINAS 10/19/2023 10:05:17 Final Observation Date Value Abnormality Reference (Units ) Status WBC, Total 10/19/2023 10:05:17 6.61 4.00-10.8 0 (K/uL) Final RBC 10/19/2023 10:05:17 4.49 4.50-5.25 (M/uL) Final Hemoglobin 10/19/2023 10:05:17 11.0 Below low normal 14 .0-16.8 (g/dL) Final HCT 10/19/2023 10:05:17 36.7 Below low normal 40. 0-48.4 (%) Final MCV 10/19/2023 10:05:17 81.7 82.0-99.5 (fL) Final MCH 10/19/2023 10:05:17 24.5 27.0-34.0 (pg) Final MCHC 10/19/2023 10:05:17 30.0 32.0-36.0 (g/dL) Final RDW 10/19/2023 10:05:17 21.2 11.5-15.5 (%) Final Platelets 10/19/2023 10:05:17 173 140-400 (K /uL) Final MPV 10/19/2023 10:05:17 11.4 6.6-11.1 ( fL) Final Performing Location [facility] [address]
--- OUTSIDE RECORDS SUMMARY | 2024-01-26 06:01 | External Medical Summary ---
Author Name Unknown Address Unknown Organization K09:[facility] [place] [address] Laboratory Report Ordering Provider Test Date Status JAYSHREE SALINAS 10/19/2023 10:05:17 Final Observation Date Value Abnormality Reference (Units ) Status BUN 10/19/2023 10:05:17 14 6-20 (mg/dL) Final Creatinine 10/19/2023 10:05:17 1.0 0.6-1.2 (mg/dL) Final Glomerular filtration rate/1.73 sq M.predicted [Volume Rate/Area] in Serum, Plasma or Blood by Creatinine-based formula (CKD-EPI) 10/19/2023 10:05:17 73 >=60 (mL/min) Final eGFR is calculated based on the CKD-EPI 2020 equation Sodium 10/19/2023 10:05:17 139 135-146 (m mol/L) Final Potassium 10/19/2023 10:05:17 4.3 3.5-5.1 (m mol/L) Final Cl 10/19/2023 10:05:17 102 98-107 (mm ol/L) Final CO2 10/19/2023 10:05:17 25 22-32 (mmo l/L) Final Anion gap 10/19/2023 10:05:17 12 7-15 (mmol /L) Final Glucose 10/19/2023 10:05:17 125 Above high normal 70 -120 (mg/dL) Final Calcium 10/19/2023 10:05:17 9.1 8.4-10.2 ( mg/dL) Final Performing Location [facility] [place] [address]
--- OUTSIDE RECORDS SUMMARY | 2024-01-26 06:01 | External Medical Summary | Summary of Care ---
Author Name Unknown Organization [facility] Address [address] [place] [address] Phone [phone] Care Team Providers Care Axle Polisher Name Role Phone Julián Heck MD Primary Care Provider [phone] Encounter Details Date Type Department Care Team (Late st Contact Info) Description 01/15/2024 Orders Only Outcomes Research Department [address], [place] [id number] Lilia Diaz CHRA My[facility] Research Other*[id number] Allergies No known active allergiesdocumented as of this encounter (statuses as of 01/15/2024) Medications Medication Sig Dispensed Refills Start Date End Date Status montelukast (SINGULAIR) 10 MG Tablet Take 10 mg by mouth daily. Active simvastatin (ZOCOR) 40 MG Tablet Take 40 mg by mouth every evening. Active Lisinopril 40 MG Tablet Take 40 mg by mouth daily. Active MetFORMIN (GLUCOPHAGE) 1000 MG Tablet Take 1,000 mg by mouth 2 times a day with morning and evening meals. Active Mometasone Furo-Formoterol Fum (DULERA) 100-5 MCG/ACT Inhaler Two puffs twice a day Active digoxin (LANOXIN) 125 mcg Tablet Take 125 mcg by mouth daily. Active aspirin 81 MG chewable tablet Take 81 mg by mouth daily. Active apixaban (ELIQUIS) 5 MG Tablet Take 5 mg by mouth 2 times a day. Active nitroglycerin (NITROSTAT) 0.[address] 0.4 mg under the tongue every 5 minutes as needed for Pain, Chest. Active clopidogrel (PLAVIX) 75 MG Tablet 10/10/2015 Active Calcium Carbonate-Vit D-Min (CALCIUM 1200) 1689-7223 MG-UNIT per chew tablet Take 1 Tab by mouth daily. Active Mometasone Furo-Formoterol Fum 100-5 MCG/ACT Inhaler Inhale 2 Puffs by mouth 2 times a day. Active diltiazem (CARDIZEM) 30 MG TabletIndications:Dose unknown Take 30 mg by mouth 4 times a day before meals and at bedtime. Indications: Dose unknown Active documented as of this encounter (statuses as of 01/15/2024) Active Problems Problem Noted Date Diagnosed Date ADVANCE DIRECTIVE INFORMATION 03/23/2009 Overview: No, Advance Directive brochure offered , patient declined. documented as of this encounter (statuses as of 01/15/2024) Social History Tobacco Use Types Packs/Day Years Used Date Smoking Tobacco: Former Cigarettes Q uit: 12/09/1973 Smokeless Tobacco: Current Comments:chew snuff Alcohol Use Standard Drinks/Week Comments No 0 (1 standard drink = 0.6 oz pur e alcohol) Utilities Answer Date Recorded Do you have trouble paying y our heating, water, or electric bill? (Adult - for ages 18 years and over) Not on file 10/24/2023 Is your family able to pay t he heat, water, or electric bill? (Household - for ages 0-17 years) Not on file 10/24/2023 Does your family have access to good internet? (Household - for ages 0-17 years) Not on file 10/24/2023 Social Connections Answer Date Recorded How often do you feel lonely or isolated from those around you? (Adult - for ages 18 years and over) Not on file 10/24/2023 Sex and Gender Information Value Date Recorded Sex Assigned at Not on file Gender Identity Not on file Sexual Orientation Not on file documented as of this encounter Plan of Treatment Scheduled Orders Name Type Priority Associated Diagnoses Orde r Schedule MYCODE INITIAL ADULT Lab Routine MyCode Research Other*[id number] Expected: 01/15/2024 (Approximate), Expires: 02/03/2025 Scheduled Procedures Name Priority Associated Diagnoses Date/Ti me COLONOSCOPY FLEXIBLE PROXIMAL DIAGNOSTIC Recall History of colon polyps Health Maintenance Due Date Last Done Comments Depression Screening 1952 DTap/Tdap Vaccines (1 - Tdap) 1959 Zoster Vaccines (2 of 3) 07/17/2016 05/22/2016 Colonoscopy 08/17/2021 08/17/2016, 08/06, 04/06/2015, Additional history exists COVID-19 Vaccine (1 - 2022-24 season) 2024 Influenza Vaccine (FLU shot) (#1) 2024 01/27/2020, 06/05/2019, 01/24/2019, Additional history exists RETIRED - COLONOSCOPY-EVERY 5 YRS AGES 18-100 Discontinued 08/17/2016, 08/17/2016, 04/06/2015, Additional history exists Pneumococcal Vaccine: 65+ Years Completed 06/26/2019, 12/01/2015, 02/14/2003 HPV (Gardasil) Vaccine Aged Out No lo nger eligible based on patient's age to complete this topic Hepatitis B Vaccine Aged Out No longe r eligible based on patient's age to complete this topic MENINGOCOCCAL (MENACTRA/MENVEO) Aged Out No longer eligible based on patient's age to complete this topic documented as of this encounter Medical Devices Not on filedocumented as of this encounter Visit Diagnoses Diagnosis MyCode Research Other*[id number] documented in this encounter Care Teams Axle Polisher Relationship Specialty Start Date End Date Julián Heck MD [address] [place] [address] PCP - General 05/08/02 documented as of this encounter
[2024-01-26 07:14] LABS: Estimated Average Glucose 143 mg/dl; Hemoglobin A1C 6.6 % (4.5-5.6)
[2024-01-26 07:17] LABS: Albumin Level 4.4 gm/dl (3.4-5.0); Calcium 9.5 mg/dl (8.6-10.3); Creatinine Clr Calc Pharmacy 61.1 ml/min; Est GFR (African American) 96.9 ml/min; Est GFR (Non-African American) 83.6 ml/min; Magnesium 2.2 mg/dl (1.7-2.4); Phosphorus 3.1 mg/dl (2.5-4.9); Potassium 3.9 mmol/L (3.5-5.1)
[2024-01-26 07:39] LABS: Basophils # (auto) 0.05 K/uL (0.00-0.20); Basophils % (auto) 0.7 %; Eosinophils # (auto) 0.14 K/uL (0.00-0.50); Eosinophils % (auto) 2.1 %; Hematocrit (blood only) 38.2 % (42.0-52.0); Immature Granulocytes # (auto) 0.01 K/uL (0.01-0.20); Immature Granulocytes % (auto) 0.1 %; Lymphocytes # (auto) 1.31 K/uL (1.20-3.40); Lymphocytes % (auto) 19.5 %; Mean Corpuscular Hemoglobin 26.4 pg (25.0-34.0); Mean Corpuscular Hgb Conc 31.4 g/dL (32.0-36.0); Mean Corpuscular Volume 84.1 fL (80.0-100.0); Mean Platelet Volume 10.3 fL (9.4-12.4); Monocytes # (auto) 0.54 K/uL (0.11-0.59); Neutrophils # (auto) 4.66 K/uL (1.40-6.50); Neutrophils % (auto) 69.6 %; Platelet Count 174 K/uL (130-400); RDW Coefficient of Variation 19.2 % (11.5-14.5); RDW Standard Deviation 58.2 fL (36.4-46.3); Red Blood Count 4.54 M/uL (4.70-6.10); White Blood Count 6.71 K/ul (4.8-10.8)
--- NOTE | 2024-01-26 07:42 | XRay Report ---
XR chest 1V portable HISTORY: fall COMPARISON: Chest 11/04/2023. FINDINGS: Rotated study. There are old, healed bilateral rib fractures. The cardiac silhouette remain s mildly enlarged. No pneumothorax. No pleural effusions. Calcifications within the aortic knob. No f ocal lung consolidations to suggest a pneumonia. No evidence for pulmonary edema. IMPRESSION: Stable cardiomegaly. Otherwise, no acute process within the chest ACT 112: Negative or not required by law. Electronically signed by: Reagan Villanueva M.D. 01/26/2024 7:40 AM
[2024-01-26] MEDS: ASPIRIN 81 MG ECTAB PO SCH (08:41)
[2024-01-26] MEDS: SERTRALINE HCL 100 MG TABLET PO SCH (08:41)
[2024-01-26] MEDS: CYANOCOBALAMIN (B-12) 500 MCG TABLET PO SCH (08:41)
[2024-01-26] MEDS: FLUTICASONE FUROATE 100MCG 14 PUFFS/INHALER INH SCH (08:42)
[2024-01-26] MEDS: levETIRAcetam 500 MG TAB PO SCH (08:42)
[2024-01-26] MEDS: PANTOprazole 40 MG TAB PO SCH (08:42)
[2024-01-26] MEDS: METOPROLOL TARTRATE 50 MG TAB PO SCH (08:42)
[2024-01-26] MEDS: UMECLIDINIUM/VILANTEROL 62.5/25MCG 7 PUFFS/INHALER INH SCH (08:43)
[2024-01-26] MEDS ORDERED: NON-FORMULARY MEDICATION (Fluticasone-Umeclidin-Vilanter [Trelegy Ellipta] 100-62.5-25 mcg INH SCH (09:00)
[2024-01-26] MEDS: INSULIN ASPART PER UNIT CHARGE SC SCH (09:13)
--- NOTE | 2024-01-26 12:21 | Electrocardiogram Report ---
Test Reason : Blood Pressure : */* mmHG Vent. Rate : 85 BPM Atrial Rate : * BPM P-R Int : * ms QRS Dur : 82 ms QT Int : 370 ms P-R-T Axes : * 31 27 degrees QTcB Int : 440 ms Atrial fibrillation Septal infarct , age undetermined Abnormal ECG When compared with ECG of 16-Oct-2023 04:34, (unconfirmed) Septal infarct is now Present Nonspecific T wave abnormality no longer evident in Inferior leads Nonspecific T wave abnormality no longer evident in Lateral leads Confirmed by Say Cedillo ([id number]) on 01/26/2024 12:21:33 PM Referred By: REFERRED SELF Confirmed By: Say Cedillo
[2024-01-26] MEDS: bisacodyL 10 MG SUPP PR ONE (12:53)
--- NOTE | 2024-01-26 13:51 | Hospitalist Progress Note ---
Date of Service January 26, 2024 Assessment & Plan (1) Fall: (2) Confusion: (3) Mild cognitive impairment: (4) Ambulatory dysfunction: (5) Hypomagnesemia: (6) Arteriosclerotic coronary artery disease: (7) Depression: (8) Dyslipidemia: (9) Asthma: (10) Diabetes type 2, controlled: (11) Seizure disorder: Plan Status post fall/history of recurrent falls/ambulatory dysfunction/mild cognitive impairment- CT scan head negative for acute findings Chest x-ray negative Patient had recurrent admissions in the year for similar processes Follow urine culture and sensitivity PT OT consulted, await evaluation CAD/hypertension- Continue aspirin, diltiazem, lisinopril and metoprolol tartrate Hypomagnesemia- Replaced Seizure disorder/depression- Continue Keppra, sertraline Asthma- Continue guaifenesin, montelukast and Trelegy Ellipta Diabetes mellitus- Hold metformin Placed on Accu-Cheks in a.m. if blood sugars are elevated, Admission and Anticipated Discharge Date Admission Date: January 25, 2024 Subjective Patient seen and examined, said he did not have any appetite, eating open to having some supplements Review of Systems Review of Systems: All systems reviewed are negative, apart from the ones contained in the history. Physical Exam Physical Exam: The patient is awake, alert and oriented 3, well developed and well nourished, normocephalic and atraumatic, lying in bed and in no acute distress. HEENT--PERRL, EOMI, mucous membranes and oropharynx mildly dry Neck--supple. No JVD. No bruits. Thyroid normal, trachea midline, no adenopathy. Heart--normal S1 and S2. No murmurs, rubs or gallops. Lungs--clear bilaterally, no respiratory distress, no accessory muscle use. Abdomen--normal bowel sounds and soft. Extremities--no cyanosis or clubbing. No edema. Dermatologic--normal skin turgor, normal color, no abnormal lymph nodes, no rash. Neurologic--cranial nerves II through XII grossly intact. Rheumatologic--normal range of motion. Psychiatric--normal affect. Results & Data Results & Data Vital Signs (Past 12 Hours) Vital Signs Temp Pulse Pulse Resp BP BP Pulse Ox 01/26/24 11:46 97.9 F 88 18 118/79 91 01/26/24 08:17 97.5 F L 96 H 14 137/91 95 01/26/24 07:40 01/26/24 07:01 90 01/26/24 04:49 97.3 F L 91 H 18 158/91 H 92 01/26/24 02:42 97.7 F 87 16 127/83 91 01/26/24 02:04 01/26/24 02:04 98.1 F 87 16 127/83 91 Pulse Ox O2 Del Method O2 Del Method 01/26/24 11:46 Room Air 01/26/24 08:17 Room Air 01/26/24 07:40 Room Air 01/26/24 07:01 01/26/24 04:49 Room Air 01/26/24 02:42 Room Air 01/26/24 02:04 91 Room Air 01/26/24 02:04 Room Air PG Care Time/CCT Total # of Minutes Spent Total Time Spent with Patient: Total time spent is greater than 50% in coordination of care (as documented) at patient's floor/unit and/or counseling patient: Coding Level of Care Code 58918 SUB INP/OBS CARE 2/35MIN Diagnoses Fall W19.XXXA Confusion R41.0 Mild cognitive impairment G31.84 Ambulatory dysfunction R26.2 Hypomagnesemia E83.42 Arteriosclerotic coronary artery disease I25.10 Depression, unspecified depression type F32.9 Depression Type: unspecified Dyslipidemia E78.5 Asthma J45.909 Diabetes type 2, controlled E11.9 Seizure disorder G40.909 Time Spent (min) 35 (7) Depression Depression Type: unspecified Qualified Code(s): F32.9 - Major depressive disorder, single episode, unspecified
[2024-01-26] MEDS: lisinopril 5 MG TAB PO SCH (20:44)
[2024-01-26] MEDS: MONTELUKAST SODIUM 10 MG TABLET PO SCH (20:44)
[2024-01-26] MEDS: ATORVASTATIN 40 MG TAB PO SCH (20:46)
[2024-01-26] MEDS: dilTIAZem HCL 120 MG CAPCR PO SCH (20:46)
[2024-01-27 06:49] LABS: Basophils # (auto) 0.05 K/uL (0.00-0.20); Basophils % (auto) 0.8 %; Eosinophils # (auto) 0.07 K/uL (0.00-0.50); Eosinophils % (auto) 1.2 %; Hematocrit (blood only) 38.4 % (42.0-52.0); Immature Granulocytes # (auto) 0.01 K/uL (0.01-0.20); Immature Granulocytes % (auto) 0.2 %; Lymphocytes # (auto) 1.31 K/uL (1.20-3.40); Lymphocytes % (auto) 22.1 %; Mean Corpuscular Hemoglobin 26.3 pg (25.0-34.0); Mean Corpuscular Hgb Conc 31.3 g/dL (32.0-36.0); Mean Platelet Volume 10.1 fL (9.4-12.4); Monocytes % (auto) 8.4 %; Neutrophils # (auto) 3.99 K/uL (1.40-6.50); Neutrophils % (auto) 67.3 %; Platelet Count 187 K/uL (130-400); RDW Coefficient of Variation 19.3 % (11.5-14.5); RDW Standard Deviation 58.6 fL (36.4-46.3); Red Blood Count 4.57 M/uL (4.70-6.10); White Blood Count 5.93 K/ul (4.8-10.8)
[2024-01-27 07:13] LABS: Albumin Level 4.3 gm/dl (3.4-5.0); BUN Creatinine Ratio 29.7 (10-20); Calcium 9.4 mg/dl (8.6-10.3); Creatinine Clr Calc Pharmacy 51.7 ml/min; Est GFR (African American) 90.6 ml/min; Est GFR (Non-African American) 78.2 ml/min; Magnesium 2.1 mg/dl (1.7-2.4); Phosphorus 3.7 mg/dl (2.5-4.9); Potassium 3.8 mmol/L (3.5-5.1)
[2024-01-27 08:15] VITALS: RESP 20
[2024-01-27] MEDS: FERROUS SULFATE 325 MG TAB PO SCH (08:41)
--- NOTE | 2024-01-27 12:26 | Hospitalist Progress Note ---
Date of Service January 27, 2024 Assessment & Plan (1) Fall: (2) Confusion: (3) Mild cognitive impairment: (4) Ambulatory dysfunction: (5) Hypomagnesemia: (6) Arteriosclerotic coronary artery disease: (7) Depression: (8) Dyslipidemia: (9) Asthma: (10) Diabetes type 2, controlled: (11) Seizure disorder: Plan Status post fall/history of recurrent falls/ambulatory dysfunction/mild cognitive impairment- CT scan head negative for acute findings Chest x-ray negative Patient had recurrent admissions in the year for similar processes Follow urine culture and sensitivity PT OT consulted, await evaluation CAD/hypertension- Continue aspirin, diltiazem, lisinopril and metoprolol tartrate Hypomagnesemia- Replaced Seizure disorder/depression- Continue Keppra, sertraline Asthma- Continue guaifenesin, montelukast and Trelegy Ellipta Diabetes mellitus- Hold metformin Placed on Accu-Cheks in a.m. if blood sugars are elevated, Admission and Anticipated Discharge Date Admission Date: January 25, 2024 Subjective Patient seen and examined, no new complaints Review of Systems Review of Systems: All systems reviewed are negative, apart from the ones contained in the history. Physical Exam Physical Exam: The patient is awake, alert and oriented 3, well developed and well nourished, normocephalic and atraumatic, lying in bed and in no acute distress. HEENT--PERRL, EOMI, mucous membranes and oropharynx mildly dry Neck--supple. No JVD. No bruits. Thyroid normal, trachea midline, no adenopathy. Heart--normal S1 and S2. No murmurs, rubs or gallops. Lungs--clear bilaterally, no respiratory distress, no accessory muscle use. Abdomen--normal bowel sounds and soft. Extremities--no cyanosis or clubbing. No edema. Dermatologic--normal skin turgor, normal color, no abnormal lymph nodes, no rash. Neurologic--cranial nerves II through XII grossly intact. Rheumatologic--normal range of motion. Psychiatric--normal affect. Results & Data Results & Data Vital Signs (Past 12 Hours) Vital Signs Temp Pulse Pulse Resp BP Pulse Ox O2 Del Method 01/27/24 11:29 98.1 F 68 20 103/61 93 Room Air 01/27/24 08:15 97.7 F 79 20 138/89 94 Room Air 01/27/24 07:27 85 01/27/24 02:59 98.2 F 96 H 18 123/81 92 Room Air PG Care Time/CCT Total # of Minutes Spent Total Time Spent with Patient: Total time spent is greater than 50% in coordination of care (as documented) at patient's floor/unit and/or counseling patient: Coding Level of Care Code 35060 SUB INP/OBS CARE 2/35MIN Diagnoses Fall W19.XXXA Confusion R41.0 Mild cognitive impairment G31.84 Ambulatory dysfunction R26.2 Hypomagnesemia E83.42 Arteriosclerotic coronary artery disease I25.10 Depression, unspecified depression type F32.9 Depression Type: unspecified Dyslipidemia E78.5 Asthma J45.909 Diabetes type 2, controlled E11.9 Seizure disorder G40.909 Time Spent (min) 35 (7) Depression Depression Type: unspecified Qualified Code(s): F32.9 - Major depressive disorder, single episode, unspecified
--- NOTE | 2024-01-27 12:44 | Discharge Summary ---
Date of Service January 27, 2024 Admission HPI Per Admitting Provider The patient is an 83-year-old male with a past medical history including recurrent falls, ambulatory dysfunction, history of fracture of maxillary sinus and closed fracture of nasal bone, intermittent weakness, iron deficiency anemia, multiple pulmonary nodules, cerebral cavernoma, chronic aspiration, V. tach, CAD, depression, dyslipidemia, mild cognitive impairment, asthma, and history of TIAs. Patient presents to the emergency department due to family concerns regarding progressive generalized weakness and a fall earlier this evening at home. Admission Exam (Per Admitting) Constitutional The patient is awake, alert and oriented 3, well developed and well nourished, normocephalic and atraumatic, lying in bed and in no acute distress. HEENT--PERRL, EOMI, mucous membranes and oropharynx mildly dry Neck--supple. No JVD. No bruits. Thyroid normal, trachea midline, no adenopathy. Heart--normal S1 and S2. No murmurs, rubs or gallops. Lungs--clear bilaterally, no respiratory distress, no accessory muscle use. Abdomen--normal bowel sounds and soft. Extremities--no cyanosis or clubbing. No edema. Dermatologic--normal skin turgor, normal color, no abnormal lymph nodes, no rash. Neurologic--cranial nerves II through XII grossly intact. Rheumatologic--normal range of motion. Psychiatric--normal affect. Discharge Data Consultations 01/25/24 22:21 ED Decision to Admit Stat Hospital Course (1) Fall: (2) Confusion: (3) Mild cognitive impairment: (4) Ambulatory dysfunction: (5) Hypomagnesemia: (6) Arteriosclerotic coronary artery disease: (7) Depression: (8) Dyslipidemia: (9) Asthma: (10) Diabetes type 2, controlled: (11) Seizure disorder: Plan Status post fall/history of recurrent falls/ambulatory dysfunction/mild cognitive impairment- CT scan head negative for acute findings Chest x-ray negative Patient had recurrent admissions in the year for similar processes Follow urine culture and sensitivity PT OT consulted, await evaluation CAD/hypertension- Continue aspirin, diltiazem, lisinopril and metoprolol tartrate Hypomagnesemia- Replaced Seizure disorder/depression- Continue Keppra, sertraline Asthma- Continue guaifenesin, montelukast and Trelegy Ellipta Diabetes mellitus- Hold metformin Placed on Accu-Cheks in a.m. if blood sugars are elevated, Discharge to [facility] Coding Level of Care Code 55597 INP/OBS DISCH >30 MIN Diagnoses Fall W19.XXXA Confusion R41.0 Mild cognitive impairment G31.84 Ambulatory dysfunction R26.2 Hypomagnesemia E83.42 Arteriosclerotic coronary artery disease I25.10 Depression, unspecified depression type F32.9 Depression Type: unspecified Dyslipidemia E78.5 Asthma J45.909 Diabetes type 2, controlled E11.9 Seizure disorder G40.909 Time Spent (min) 35
[2024-01-27 15:26] VITALS: BP 99/63; PULSE 57; TEMP 97.5; O2SAT 94
== END 2024-01-27 16:01 ==
LOC: ED 19:19 → EDINP 19:19 → SUATTDRO 22:48 → 2N 01-26 01:39

== ENCOUNTER 2024-02-07 16:49 | Inpatient (IN) ==
[2024-02-07 17:17] LABS: Hematocrit (blood only) 38.6 % (42.0-52.0); Hemoglobin 12.1 g/dl (14.0-18.0); Mean Corpuscular Hemoglobin 27.1 pg (25.0-34.0); Mean Corpuscular Hgb Conc 31.3 g/dL (32.0-36.0); Mean Corpuscular Volume 86.5 fL (80.0-100.0); Mean Platelet Volume 10.2 fL (9.4-12.4); Platelet Count 204 K/uL (130-400); RDW Coefficient of Variation 19.8 % (11.5-14.5); RDW Standard Deviation 61.1 fL (36.4-46.3); Red Blood Count 4.46 M/uL (4.70-6.10); White Blood Count 15.41 K/ul (4.8-10.8)
[2024-02-07 17:21] LABS: iSTAT Creatinine 0.9 mg/dl (0.6-1.3); iSTAT Hemoglobin 13.6 g/dl (14.0-18.0); iSTAT Ionized Calcium 1.17 mmol/l (1.12-1.32); iSTAT Potassium 4.3 mmol/L (3.3-5.0)
[2024-02-07 17:37] LABS: Basophils # (auto) 0.05 K/uL (0.00-0.20); Basophils % (auto) 0.3 %; Immature Granulocytes # (auto) 0.11 K/uL (0.01-0.20); Immature Granulocytes % (auto) 0.7 %; Lymphocytes # (auto) 0.66 K/uL (1.20-3.40); Lymphocytes % (auto) 4.3 %; Monocytes # (auto) 0.61 K/uL (0.11-0.59); Neutrophils # (auto) 13.98 K/uL (1.40-6.50); Neutrophils % (auto) 90.7 %
[2024-02-07 17:39] LABS: Albumin Globulin Ratio 1.2 (0.9-2); Albumin Level 4.4 gm/dl (3.4-5.0); BUN Creatinine Ratio 26.3 (10-20); Bilirubin,Total 0.4 mg/dl (0.2-1.0); Calcium 9.5 mg/dl (8.6-10.3); Creatinine Clr Calc Pharmacy 49.8 ml/min; Globulin 3.6 gm/dl (2.5-4.0); Potassium 4.3 mmol/L (3.5-5.1)
[2024-02-07 17:45] LABS: Troponin I High Sensitivity 7.9 pg/ml (0-20)
--- NOTE | 2024-02-07 17:49 | XRay Report ---
XR hip RT 2V w pelvis HISTORY: 83 years-old Male trauma, fall acute pelvic pain status post trauma COMPARISON: 07/14/2023 TECHNIQUE: AP view of the pelvis with 2 views of the right hip FINDINGS: Arterial calcifications. Mild osteoarthritis of the hips. Demineralized appearance of the bones. No a cute fracture, dislocation or osseous erosion. IMPRESSION: No acute fracture or dislocation. ACT 112: Negative or not required by law. The above report was generated using voice recognition software. It may contain grammatical, syntax o r spelling errors. Electronically signed by: Bulmaro Deluca M.D. 02/07/2024 5:47 PM
--- NOTE | 2024-02-07 17:50 | XRay Report ---
XR chest 1V portable HISTORY: 83 years-old Male trauma COMPARISON: 01/25/2024 TECHNIQUE: AP view of the chest FINDINGS: Cardiac silhouette is enlarged. Coronary arterial stenting. No pneumothorax, pleural effusion or over t pulmonary edema. Emphysema with chronic interstitial coarsening. Degenerative changes of the should ers and spine. IMPRESSION: Emphysema without acute process. ACT 112: Negative or not required by law. The above report was generated using voice recognition software. It may contain grammatical, syntax o r spelling errors. Electronically signed by: Bulmaro Deluca M.D. 02/07/2024 5:49 PM
--- NOTE | 2024-02-07 18:13 | CT Scan Report ---
CT head/brain wo con CLINICAL HISTORY: 83 years-old Male with Trauma. Acute head trauma TECHNIQUE: Multiple axial CT images of the head were obtained without contrast. A dose lowering tech nique was utilized adhering to the principles of ALARA. CT DOSE: 1097.6 mGy.cm COMPARISON: 01/25/2024. FINDINGS: No acute intracranial hemorrhage, midline shift, intracranial mass, acute territorial ischemia or abn ormal extra-axial collection. Involutional changes with chronic microvascular ischemic disease. Chron ic left cerebellar infarct. The calvarium is intact. Moderate mucosal thickening of the paranasal sinuses with layering maxillar y air-fluid levels. Findings have mildly improved. IMPRESSION: No acute intracranial abnormality or calvarial fracture. ACT 112: Negative or not required by law. The above report was generated using voice recognition software. It may contain grammatical, syntax o r spelling errors. Electronically signed by: Bulmaro Deluca M.D. 02/07/2024 6:11 PM
--- NOTE | 2024-02-07 18:18 | CT Scan Report ---
CT cervical spine wo con CLINICAL HISTORY: 83 years-old Male with Trauma. Acute neck injury status post trauma COMPARISON: 10/15/2019. TECHNIQUE: Multiple axial CT images of the cervical spine were obtained without contrast. A dose low ering technique was utilized adhering to the principles of ALARA. FINDINGS: Unchanged sclerotic focus of the C3 vertebral body, possibly a bone island. There is severe multilevel disc space narrowing and facet arthrosis with moderate spondylitic spurring. Grade 1 ante rolisthesis C5 on C6 is likely related. No acute fracture or subluxation. Atherosclerotic plaque of t he carotid bulbs. The cervical soft tissues appear unremarkable. The visualized lung apices appear clear. IMPRESSION: No acute cervical spine fracture or subluxation identified. ACT 112: Negative or not required by law. The above report was generated using voice recognition software. It may contain grammatical, syntax o r spelling errors. Electronically signed by: Bulmaro Deluca M.D. 02/07/2024 6:16 PM
[2024-02-07 19:09] LABS: Appearance Urine Clear (Clear); Bacteria Urine Automated None Seen (None Seen); Bilirubin Urine Negative (Negative); Blood Urine Negative (Negative); Cast Urine Automated 0-2 /lpf (0-2); Color Urine Yellow; Epithelial Cell Urine Auto 0-2 /hpf (0-2); Glucose Urine UA Negative (Negative); Ketones Urine Trace (Negative); Leukocyte Esterase Urine Negative (Negative); Nitrite Urine Negative (Negative); Protein Urine 1+ (Negative); RBC Urine Automated 0-2 /hpf (0-2); Specific Gravity Urine 1.023 (1.000-1.030); Urobilinogen Urine Negative (Negative); WBC Urine Automated 0-5 /hpf (0-5); pH Urine 5.5 (4.5-7.5)
[2024-02-07] MEDS: ACETAMINOPHEN 500 MG TAB PO STA (19:13)
--- NOTE | 2024-02-07 21:14 | History & Physical Report ---
Date of Service February 07, 2024 Assessment & Plan (1) Fall: Plan: Patient with ground level fall resulting in small skin tear above right eye, closed pelvic fractures as above. No anticoagulation but patient is on a daily aspirin. No complaints at present -Neuro checks with GCS q shift - presently oriented to person, location and situation but states it is 2013. GCS=15 -PT/OT evaluation to be ordered -Maintain fall precautions (2) Pelvic fracture: Plan: Noted on imaging. Mildly displaced. No bleeding -Orthopedics consultation appreciated -Pain control with Tylenol, Oxycodone PRN -PT/OT evaluation after ortho (3) Fecal retention: Plan: Large amount of stool noted in the colon on CT imaging. Patient with no complai nts -Dulcolax 10mg [place] daily -Miralax daily Plan Diabetes - overall well controlled. Last [id number]=0.6 on 01/26/24 -Hold Metformin -ISS - goal blood sugar 110 - 140 COPD - chronic, stable. No cough, SOB or wheeze -Continue Trelegy or formulary equivalent -Continue Singulair Seizure disorder - chronic, stable -Continue Keppra Hypothyroidism - chronic, stable -Continue Synthroid Hypertension - chronic, stable -Continue Lisinopril and Metoprolol -Continue to monitor GERD - chronic, stable -Continue Protonix History of Present Illness Chief Complaint: fall, unable to walk Primary Care Provider: DO Jose J Dang Yudith is an 83yo male with history of HTN, COPD, CAD, DM, Seizure and PAF not on anticoagulation presenting from home after a fall. Patient was getting the mail when he slipped on the wet grass and fell onto the ground. He reports hitting his head on the right side. He was able to get up and walk to the home. EMS was called and they checked him out. Later in the day he was unable to get up and walk or bear weight so he again called EMS and was brought to the ER. Patient with some underlying dementia - he is very pleasant, oriented to self, location and situation. He denies additional complaints - specifically chest pain, palpitations, dizziness, syncope. He denies abdominal pain, nausea, vomiting, diarrhea. No headache or visual changes. Allergies Allergy/AdvReac Type Severity Reaction Status Date / Time pollen extracts Allergy Mild CONGESTION Verified 02/07/24 21:55 Home Medications Medication Instructions Recorded Confirmed Type cyanocobalamin (vitamin B-12) 1,000 mcg PO QAM 11/07/19 02/07/24 History 1,000 mcg tablet (Vitamin B-12) aspirin 81 mg tablet,delayed 81 mg PO QAM 02/26/21 02/07/24 History release guaifenesin 600 mg tablet, 1,200 mg PO Q12 PRN cough 07/11/22 02/07/24 History extended release 12 hr (Mucinex) levetiracetam 500 mg tablet 1,000 mg (2 x 500 mg) PO BID 90 03/17/23 02/07/24 Rx (Keppra) days #360 tabs atorvastatin 40 mg tablet (Lipitor) 40 mg PO HS #90 tabs 05/31/23 02/07/24 Rx diltiazem HCl 120 mg 120 mg PO HS #90 caps 08/29/23 02/07/24 Rx capsule,extended release 24 hr sertraline 100 mg tablet 100 mg PO QAM #90 tabs 08/29/23 02/07/24 Rx ferrous sulfate 325 mg (65 mg 325 mg PO Q OTHER DAY #90 tabs 11/06/23 02/07/24 Rx iron) tablet,delayed release lisinopril 5 mg tablet 5 mg PO HS #90 tabs 11/27/23 02/07/24 Rx pantoprazole 40 mg tablet,delayed 40 mg PO DAILY #90 tabs 12/13/23 02/07/24 Rx release montelukast 10 mg tablet 10 mg PO HS #90 tabs 12/19/23 02/07/24 Rx metoprolol tartrate 25 mg tablet 50 mg (2 x 25 mg) PO QAM #90 tabs 01/09/24 02/07/24 Rx metformin 850 mg tablet 850 mg PO DAILY #90 tabs 01/15/24 02/07/24 Rx fluticasone fur. 100 mcg-umeclid 1 inh inhalation QAM #180 ea 01/22/24 02/07/24 Rx 62.5 mcg-vilant 25 mcg inhalat.powder (Trelegy Ellipta) levothyroxine 50 mcg tablet 50 mcg PO DAILYBB 01/25/24 02/07/24 History Past Med/Surg History Problem List (Updated 02/08/24 @ 03:50 by Patricia Dickey DO) Pelvic fracture Diabetes type 2, controlled Seizure disorder (01/2019) Confusion Fall (Acute) Microcytic anemia Hypoxia Lumbar contusion (Acute) Head injury (Acute) Fall (Acute) Contusion of scalp (Acute) CHI (closed head injury) (Acute) Acute sinusitis Ambulatory dysfunction (Acute) Periorbital ecchymosis of left eye (Acute) Fracture of maxillary sinus (Acute) Closed fracture nasal bone (Acute) Elevated serum lactate dehydrogenase (Acute) Weakness (Acute) Acute respiratory failure with hypoxia Acute head trauma (Acute) Hypomagnesemia (Acute) Hematuria Fecal retention Hypoxia (Acute) Iron deficiency anemia Multiple pulmonary nodules Ex-smoker History of basal cell carcinoma (BCC) of skin (05/2020) Cerebral cavernoma (Chronic) Chronic pulmonary aspiration Tremor HANDS V tach Atelectasis 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 Vitamin D deficiency (Chronic) Tubular adenoma of colon (Chronic) Tinnitus of both ears (Chronic) Chronic rhinitis (Chronic) Anosmia Arteriosclerotic coronary artery disease (Chronic) Depression (Chronic) Dyslipidemia (Chronic) Mild cognitive impairment (Chronic) Osteoporosis (Chronic) Asthma (Chronic) TIA (transient ischemic attack) 2017 X 1 AND NONE SINCE Medical History Dementia Pneumonia HTN (hypertension), benign Fall from standing Fall Vomiting Tobacco use disorder Vomiting COPD (chronic obstructive pulmonary disease) SOB (shortness of breath) Fever Chewing tobacco use Hypoxia Pneumonia History of sinusitis History of acute bronchitis with bronchospasm Osteoarthritis Anxiety CAD (coronary artery disease) Seizure 01/29/19 - X2 ON THAT DAY AND WAS ADMITTED AND STARTED ON [place] AND NO SEIZURE SINCE Abdominal aortic aneurysm (AAA), 30-34 mm diameter Benign prostatic hyperplasia with urinary obstruction Hypertension Hypothyroidism (acquired) Type 2 diabetes mellitus Vitamin B12 deficiency Paroxysmal atrial fibrillation DX [address] [place] Atrial flutter DX [address] [place] Surgical History Presence of Watchman left atrial appendage closure device (06/24/22) S/P Mohs surgery for basal cell carcinoma History of colonoscopy History of lung biopsy (03/27/19) Navigational Bronchoscopy with ICG Dye, Robotic Right Video Assisted Thoracoscopy with Right Lower Lobe Wedge Resection with Mediastinal Lymphadenectomy and Lymph Node Biopsy Dr. Lynn 03/27/19 Hx of cardiac cath 2017 -- HEART CATH WITH STENT 6 [facility] WITH DR CUELLAR LAST SEEN 12/20/2018 History of anesthesia reaction states "stopped breathing during MOHS procedure at the [facility] [place]/O 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 Family History Father Heart disease Other COPD (chronic obstructive pulmonary disease) Depression Family history non-contributory Denies family history of Ovarian cancer Prostate cancer Coronary heart disease Myocardial infarction Breast cancer Seizure Lung cancer Colorectal cancer Social History Smoking Status: Former smoker Tobacco Type: Smokeless Tobacco (Dip or Chew) Age Started Using Tobacco: 18; Age Quit Using Tobacco: 33; packs per day: 2; Cigarettes Per Day: 20-40; Second Hand Exposure: No; Do You Dip or Chew Tobacco: Yes; Hx Alcohol Use: No Hx Substance Use: No Preferred Language: Chadian Communication Ability: Effective Visual Impairment: No Limitations Hearing Ability: Use of Hearing Aid Crime Scene Photographer Required: No Beliefs That Will Affect Care: None marital status: Current Living Situation: Spouse Current Living Situation Comment: in house with current occupational status: retired 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, 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[employer] How many Children do You have: 3 Feels Safe at Home: Yes Safety Concerns: Feels Safe At This Time Childhood Exposure to Second-Hand Smoke: Yes Diet: regular Diet Comment: regular caffeine: No during the past year weight has: remained stable Dental Care, Regularly: No Physical Activity Frequency: Does not Exercise Seatbelt Use: never Sunscreen Use: Yes Assistive Devices: Cane, Denture - Upper, Glasses and Hearing Aid - Bilateral Review of Systems Review of Systems: All systems reviewed & are unremarkable except as noted in HPI & below Physical Exam Physical Exam: General: patient resting comfortably, NAD, non-toxic in appearance, AA&O to person, place and situation Skin: warm, dry, intact,scattered bruising present on right hand and arms HEENT: PERRL, EOMI, small skin tear present on right eyebrow, anicteric sclera, conjunctiva without injection, external ear normal to inspection and nontender, nares patent, moist mucus membranes, dentition intact, no oropharyngeal lesions, neck supple, trachea midline, no LAD, no thyromegaly, no JVD Heart: +S1/S2, regular, no m/r/g Lungs: equal air entry bilaterally, no rales/rhonchi/wheezes Abd: +BS, soft, NT/ND, no masses/organomegaly/ascites Ext: warm, 2+ pulses in UE/LE bilaterally, no clubbing/cyanosis or edema Neuro: nonfocal, patient AA&O, speech intact, no facial droop, moving all extremities on command with equal strength 5/5, gait not assessed Results & Data Results & Data Vital Signs (Past 12 Hours) Vital Signs Temp Pulse Resp BP Pulse Ox O2 Del Method 02/07/24 20:42 99 H 20 105/72 94 02/07/24 19:40 37.1 C 02/07/24 19:09 94 H 22 125/92 02/07/24 18:30 126/75 02/07/24 18:30 92 H 90 02/07/24 18:12 89 24 90 02/07/24 18:00 129/81 02/07/24 17:57 91 H 22 02/07/24 17:42 82 24 91 02/07/24 17:21 81 15 90 02/07/24 17:20 125/82 02/07/24 17:16 86 02/07/24 17:08 Room Air 02/07/24 17:01 37 C 86 18 123/89 94 Room Air 02/07/24 17:00 123/89 Laboratory Results Laboratory Results WBC 15.41 K/ul (4.8-10.8) H 02/07/24 17:01 RBC 4.46 M/uL (4.70-6.10) L 02/07/24 17:01 Hgb 12.1 g/dl (14.0-18.0) L 02/07/24 17:01 POC Hgb 13.6 g/dl (14.0-18.0) L 02/07/24 17:08 Hct 38.6 % (42.0-52.0) L 02/07/24 17:01 POC Hct 40 % (42-52) L 02/07/24 17:08 MCV 86.5 fL (80.0-100.0) 02/07/24 17:01 MCH 27.1 pg (25.0-34.0) 02/07/24 17:01 MCHC 31.3 g/dL (32.0-36.0) L 02/07/24 17:01 RDW Std Deviation 61.1 fL (36.4-46.3) H 02/07/24 17:01 RDW Coeff of Ashu 19.8 % (11.5-14.5) H 02/07/24 17:01 Plt Count 204 K/uL (130-400) 02/07/24 17:01 MPV 10.2 fL (9.4-12.4) 02/07/24 17: Immature Gran % (Auto) 0.7 % 02/07/24 17: Neut % (Auto) 90.7 % 02/07/24 17:01 Lymph % (Auto) 4.3 % 02/07/24 17:01 [place] % (Auto) 4.0 % 02/07/24 17:01 Eos % (Auto) 0.0 % 02/07/24 17:01 Baso % (Auto) 0.3 % 02/07/24 17:01 Neut # (Auto) 13.98 K/uL (1.40-6.50) H 02/07/24 17:01 Lymph # (Auto) 0.66 K/uL (1.20-3.40) L 02/07/24 17:01 [place] # (Auto) 0.61 K/uL (0.11-0.59) H 02/07/24 17:01 Eos # (Auto) 0.00 K/uL (0.00-0.50) 02/07/24 17:01 Baso # (Auto) 0.05 K/uL (0.00-0.20) 02/07/24 17:01 Immature Gran # (Auto) 0.11 K/uL (0.01-0.20) 02/07/24 17:01 POC Sodium 138 mmol/L (135-144) 02/07/24 17:08 Sodium 137 mmol/L (136-145) 02/07/24 17:01 POC Potassium 4.3 mmol/L (3.3-5.0) 02/07/24 17:08 Potassium 4.3 mmol/L (3.5-5.1) 02/07/24 17:01 POC Chloride 103 mmol/L (101-112) 02/07/24 17:08 Chloride 102 mmol/L (98-107) 02/07/24 17:01 Carbon Dioxide 26 mmol/L (21-32) 02/07/24 17:01 POC Total CO2 23 mmol/L (24-31) L 02/07/24 17:08 Anion Gap 9 (3-11) 02/07/24 17:01 POC Anion Gap 18.0 mmol/L (16-25) 02/07/24 17:08 POC BUN 24 mg/dl (7-18) H 02/07/24 17:08 BUN 25 mg/dl (6-23) H 02/07/24 17:01 Creatinine 0.95 mg/dl (0.6-1.4) 02/07/24 17:01 POC Creatinine 0.9 mg/dl (0.6-1.3) 02/07/24 17:08 Est Cr Clr Drug Dosing 49.8 ml/min 02/07/24 17:01 eGFR 79.92 02/07/24 17:01 BUN/Creatinine Ratio 26.3 (10-20) H 02/07/24 17:01 Glucose 219 mg/dl (70-99(Fasting)) H 02/07/24 17:01 POC Glucose (other) 216 mg/dl (70-99) H 02/07/24 17:08 Calcium 9.5 mg/dl (8.6-10.3) 02/07/24 17:01 POC Ioniz Calcium Bhaskar 1.17 mmol/l (1.12-1.32) 02/07/24 17:08 Total Bilirubin 0.4 mg/dl (0.2-1.0) 02/07/24 17:01 AST 20 U/L (13-39) 02/07/24 17:01 ALT 12 U/L (7-52) 02/07/24 17:01 Alkaline Phosphatase 87 U/L (34-104) 02/07/24 17:01 Troponin I High Sens 7.9 pg/ml (0-20) 02/07/24 17:01 Total Protein 8.0 gm/dl (6.0-8.3) 02/07/24 17:01 Albumin 4.4 gm/dl (3.4-5.0) 02/07/24 17:01 Globulin 3.6 gm/dl (2.5-4.0) 02/07/24 17:01 Albumin/Globulin Ratio 1.2 (0.9-2) 02/07/24 17:01 Urine Color Yellow 02/07/24 18:41 Urine Appearance Clear (Clear) 02/07/24 18:41 Urine pH 5.5 (4.5-7.5) 02/07/24 18:41 Ur Specific [place] 1.023 (1.000-1.030) 02/07/24 18:41 Urine Protein 1+ (Negative) H 02/07/24 18:41 Urine Glucose (UA) Negative (Negative) 02/07/24 18:41 Urine Ketones Trace (Negative) H 02/07/24 18:41 Urine Blood Negative (Negative) 02/07/24 18:41 Urine Nitrite Negative (Negative) 02/07/24 18:41 Urine Bilirubin Negative (Negative) 02/07/24 18:41 Urine Urobilinogen Negative (Negative) 02/07/24 18:41 Ur Leukocyte Esterase Negative (Negative) 02/07/24 18:41 Urine WBC (Auto) 0-5 /hpf (0-5) 02/07/24 18:41 Urine RBC (Auto) 0-2 /hpf (0-2) 02/07/24 18:41 U Hyaline Cast (Auto) 0-2 /lpf (0-2) 02/07/24 18:41 U Epithel Cells (Auto) 0-2 /hpf (0-2) 02/07/24 18:41 Urine Bacteria (Auto) None Seen (None Seen) 02/07/24 18:41 Impressions Hip/Pelvis X-Ray 02/07/24 17:05 XR hip RT 2V w pelvis HISTORY: 83 years-old Male trauma, fall acute pelvic pain status post trauma COMPARISON: 07/14/2023 TECHNIQUE: AP view of the pelvis with 2 views of the right hip FINDINGS: Arterial calcifications. Mild osteoarthritis of the hips. Demineralized appearance of the bones. No acute fracture, dislocation or osseous erosion. IMPRESSION: No acute fracture or dislocation. ACT 112: Negative or not required by law. The above report was generated using voice recognition software. It may contain grammatical, syntax or spelling errors. Electronically signed by: Bulmaro Deluca M.D. 02/07/2024 5:[address] 02/07/24 17:06 CT cervical spine wo con CLINICAL HISTORY: 83 years-old Male with Trauma. Acute neck injury status post trauma COMPARISON: 10/15/2019. TECHNIQUE: Multiple axial CT images of the cervical spine were obtained without contrast. A dose lowering technique was utilized adhering to the principles of ALARA. FINDINGS: Unchanged sclerotic focus of the C3 vertebral body, possibly a bone island. There is severe multilevel disc space narrowing and facet arthrosis with moderate spondylitic spurring. Grade 1 anterolisthesis C5 on C6 is likely related. No acute fracture or subluxation. Atherosclerotic plaque of the carotid bulbs. The cervical soft tissues appear unremarkable. The visualized lung apices appear clear. IMPRESSION: No acute cervical spine fracture or subluxation identified. ACT 112: Negative or not required by law. The above report was generated using voice recognition software. It may contain grammatical, syntax or spelling errors. Electronically signed by: Bulmaro Deluca M.D. 02/07/2024 6:16 PM Chest X-Ray 02/07/24 17:06 XR chest 1V portable HISTORY: 83 years-old Male trauma COMPARISON: 01/25/2024 TECHNIQUE: AP view of the chest FINDINGS: Cardiac silhouette is enlarged. Coronary arterial stenting. No pneumothorax, pleural effusion or overt pulmonary edema. Emphysema with chronic interstitial coarsening. Degenerative changes of the shoulders and spine. IMPRESSION: Emphysema without acute process. ACT 112: Negative or not required by law. The above report was generated using voice recognition software. It may contain grammatical, syntax or spelling errors. Electronically signed by: Bulmaro Deluca M.D. 02/07/2024 5:[address] 02/07/24 17:06 CT head/brain wo con CLINICAL HISTORY: 83 years-old Male with Trauma. Acute head trauma TECHNIQUE: Multiple axial CT images of the head were obtained without contrast. A dose lowering technique was utilized adhering to the principles of ALARA. CT DOSE: 1097.6 mGy.cm COMPARISON: 01/25/2024. FINDINGS: No acute intracranial hemorrhage, midline shift, intracranial mass, acute territorial ischemia or abnormal extra-axial collection. Involutional changes with chronic microvascular ischemic disease. Chronic left cerebellar infarct. The calvarium is intact. Moderate mucosal thickening of the paranasal sinuses with layering maxillary air-fluid levels. Findings have mildly improved. IMPRESSION: No acute intracranial abnormality or calvarial fracture. ACT 112: Negative or not required by law. The above report was generated using voice recognition software. It may contain grammatical, syntax or spelling errors. Electronically signed by: Bulmaro Deluca M.D. 02/07/2024 6:[address] 02/07/24 19:47 Exam(s): CT PELVIS Without Contrast EXAM: CT Pelvis Without Intravenous Contrast CLINICAL HISTORY: Reason for exam: R hip pain after fall. TECHNIQUE: Axial computed tomography images of the pelvis without intravenous contrast. CTDI is 14.79 mGy and DLP is 766.25 mGy-cm. Automated exposure control was utilized for the study. A dose lowering technique was utilized adhering to the principles of ALARA. COMPARISON: CT abdomen/pelvis: 12/10/2021 FINDINGS: Bones/joints: Diffuse osseous demineralization. Mildly displaced acute fracture of the right ischiopubic rami (series 303 image 347). Comminuted mildly displaced fracture of the right pubic bone (series 303 image 294, series 304 image 41). Moderate degenerative disc/endplate spondylitic changes are seen at L5- S1 level. Bowel: Large amount of formed stool is seen throughout the visualized colon, including in a distended rectosigmoid. No obstruction. No mucosal thickening. Appendix: No findings to suggest acute appendicitis. Intraperitoneal space: Unremarkable. No free air. No significant fluid collection. Bladder: A distended urinary bladder. No stones. Reproductive: Moderately severe prostatomegaly. Centrally prostatitic calcification Soft tissues: Unremarkable. Vasculature: Extensive calcified atherosclerosis of the aortoiliac vasculature and all branch vessels. No lower abdominal aortic aneurysm. Lymph nodes: No enlarged lymph nodes. Bilateral small inguinal lymph nodes.. IMPRESSION: Mildly displaced acute fracture of the right ischiopubic rami. Mildly displaced comminuted fracture of the right pubic bone. Moderately severe prostatomegaly. Extensive calcified atherosclerosis of the aortoiliac vasculature. Large amount of stool is seen throughout the visualized colon, including in a distended rectosigmoid. Electronically signed by: Steven Sadler MD, DABR 02/08/24 00:18 AM PG Care Time/CCT Total # of Minutes Spent Total Time Spent with Patient: Total time spent is greater than 50% in coordination of care (as documented) at patient's floor/unit and/or counseling patient: Coding Level of Care Code 22729 INT INP/OBS CARE 3/75MIN Diagnoses Fall W19.XXXA Pelvic fracture S32.9XXA Fecal retention K59.00
[2024-02-07] MEDS ORDERED: ONDANSETRON INJ 2 MG/ML 2 ML VIAL IV PRN (23:11)
[2024-02-07] MEDS ORDERED: GLUCAGON FOR INJ 1 MG VIAL SQ PRN (23:11)
[2024-02-07] MEDS ORDERED: GLUCOSE 10 TAB/TUBE PO PRN (23:11)
[2024-02-07] MEDS ORDERED: DEXTROSE 50% 50 ML SYRINGE IV PRN (23:11)
[2024-02-07] MEDS ORDERED: CARBOHYDRATES FOR HYPOGLYCEMIA PO PRN (23:11)
[2024-02-07] MEDS ORDERED: POLYETHYLENE (MIRALAX) 17 GM PACK PO PRN (23:11)
[2024-02-07] MEDS ORDERED: oxyCODONE HCL IR 5 MG TAB (IMMEDIATE RELEASE) PO PRN (23:11)
[2024-02-07] MEDS ORDERED: GLUCOSE 40% GEL 15 GM TUBE PO PRN (23:11)
[2024-02-07] MEDS: ACETAMINOPHEN 500 MG TAB PO SCH (23:13)
--- NOTE | 2024-02-07 23:49 | Emergency Department Note ---
Impression & Plan Closed pelvic fracture, Fall, Ambulatory dysfunction ED Provider Note CHIEF COMPLAINT: Fall, unable to walk with right hip pain HISTORY OF PRESENT ILLNESS: This 83-year-old male patient with past medical history of hypercholesterolemia, hypertension, atrial fibrillation, seizure disorder, TIA, cognitive impairment, CAD, V. tach, diabetes mellitus type 2 presents to the emergency department with complaints of right forehead pain and right hip pain after a fall. The patient apparently walked to his mailbox earlier this afternoon, lost his footing and fell, hitting his right forehead. EMS responded to the scene however the patient felt well and requested to be released. Later this evening the patient was unable to walk due to the hip pain and the ambulance was called once again. He has not had any vomiting or headache by report. Patient is answering questions at this time although does seem to be pleasantly confused. REVIEW OF SYSTEMS: Full review of systems was unable to be obtained secondary to the patient's dementia/confusion. ALLERGIES: see below MEDICATIONS: see below PMH: see below SOCIAL HISTORY: see below DDx: Intracranial hemorrhage, skull fracture, cervical spine fracture, right hip fracture, pelvis fracture, rib fracture, intrathoracic, intra-abdominal injury, UTI, pneumonia among others. PHYSICAL EXAM: Vital signs reviewed. General: Well-appearing 83-year-old male, in no significant distress. HEENT: No scleral icterus, PERRLA, neck supple. <1 cm superficial laceration to the lateral right eyebrow no active bleeding Cardiovascular: irregular but rate controlled Pulmonary: Clear to auscultation bilaterally, normal work of breathing. Abdomen: Soft, nontender, nondistended, positive bowel sounds. Musculoskeletal: Atraumatic, no peripheral edema. nontender to palpation over the cervical spine. Nontender to pelvic rocking. Full range of motion of the bilateral hips. Neurologic: Patient awake alert and oriented x 3, speech is clear Skin: Warm, dry, no rash EMERGENCY DEPARTMENT COURSE/MDM: This pt was evaluated and appeared to be in no distress. IV access was obtained and lab work was drawn. Pt was placed on the media monitor and IVF were initiated. Pt was not in significant pain at rest. XR were obtained and to my review there are no acute fx. CXR is negative for acute process, CT head and c-spine are negative. Pt was medicated with po acetaminophen. An ambulation trial was performed and was unsuccessful. Pt was sent for CT pelvis which to my review reveals a likely pelvis fx, formal rads read is pending. Pt case was d/w the hospitalist for admission and further management. Pt was made aware of the plan and agreed. MONITORING: An order for cardiac monitoring was placed and the patient is noted to be in atrial fibrillation 93 beats per minute. RADIOLOGY: Chest x-ray to my interpretation reveals no evidence of acute traumatic finding, no focal lung consolidation or failure. Hip/pelvis x-ray to my interpretation reveals no evidence of acute fracture. Cervical spine CT per radiology reveals no evidence of acute fracture, otherwise see final read below. Head CT per radiology is negative for acute intracranial abnormality. Pelvis CT is pending. EKG: To my interpretation reveals atrial fibrillation at 86 bpm. QTc is 452. Normal ST segments. No evidence of acute ischemia. DISPOSITION: admission Past Med/Surg History Problem List (Updated 02/11/24 @ 13:00 by Amy Khalil MD) Ambulatory dysfunction (Acute) Fall (Acute) Closed pelvic fracture (Acute) Sundowning COPD (chronic obstructive pulmonary disease) Pelvic fracture Diabetes type 2, controlled Seizure disorder (01/2019) Confusion Fall (Acute) Microcytic anemia Hypoxia Lumbar contusion (Acute) Head injury (Acute) Fall (Acute) Contusion of scalp (Acute) CHI (closed head injury) (Acute) Acute sinusitis Ambulatory dysfunction (Acute) Periorbital ecchymosis of left eye (Acute) Fracture of maxillary sinus (Acute) Closed fracture nasal bone (Acute) Elevated serum lactate dehydrogenase (Acute) Weakness (Acute) Acute respiratory failure with hypoxia Acute head trauma (Acute) Hypomagnesemia (Acute) Hematuria Fecal retention Hypoxia (Acute) Iron deficiency anemia Multiple pulmonary nodules Ex-smoker History of basal cell carcinoma (BCC) of skin (05/2020) Cerebral cavernoma (Chronic) Chronic pulmonary aspiration Tremor HANDS V tach Atelectasis 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 Vitamin D deficiency (Chronic) Tubular adenoma of colon (Chronic) Tinnitus of both ears (Chronic) Chronic rhinitis (Chronic) Anosmia Arteriosclerotic coronary artery disease (Chronic) Depression (Chronic) Dyslipidemia (Chronic) Mild cognitive impairment (Chronic) Osteoporosis (Chronic) Asthma (Chronic) TIA (transient ischemic attack) 2017 X 1 AND NONE SINCE Medical History Dementia Pneumonia HTN (hypertension), benign Fall from standing Fall Vomiting Tobacco use disorder Vomiting COPD (chronic obstructive pulmonary disease) SOB (shortness of breath) Fever Chewing tobacco use Hypoxia Pneumonia History of sinusitis History of acute bronchitis with bronchospasm Osteoarthritis Anxiety CAD (coronary artery disease) Seizure 01/29/19 - X2 ON THAT DAY AND WAS ADMITTED AND STARTED ON [place] AND NO SEIZURE SINCE Abdominal aortic aneurysm (AAA), 30-34 mm diameter Benign prostatic hyperplasia with urinary obstruction Hypertension Hypothyroidism (acquired) Type 2 diabetes mellitus Vitamin B12 deficiency Paroxysmal atrial fibrillation DX [address] [place]UELLAR IN [place] Atrial flutter DX [address] CUELLAR IN [place] Surgical History Presence of Watchman left atrial appendage closure device (06/24/22) S/P Mohs surgery for basal cell carcinoma History of colonoscopy History of lung biopsy (03/27/19) Navigational Bronchoscopy with ICG Dye, Robotic Right Video Assisted Thoracoscopy with Right Lower Lobe Wedge Resection with Mediastinal Lymphadenectomy and Lymph Node Biopsy Dr. Lynn 03/27/19 Hx of cardiac cath 2017 -- HEART CATH WITH STENT 6 [facility] WITH DR CUELLAR LAST SEEN 12/20/2018 History of anesthesia reaction states "stopped breathing during MOHS procedure at the [facility] H/O 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 Family History Father Heart disease Other COPD (chronic obstructive pulmonary disease) Depression Family history non-contributory Denies family history of Ovarian cancer Prostate cancer Coronary heart disease Myocardial infarction Breast cancer Seizure Lung cancer Colorectal cancer Social History Smoking Status: Former smoker Tobacco Type: Smokeless Tobacco (Dip or Chew) Age Started Using Tobacco: 18; Age Quit Using Tobacco: 33; packs per day: 2; Cigarettes Per Day: 20-40; Second Hand Exposure: No; Do You Dip or Chew Tobacco: Yes; Hx Alcohol Use: No Hx Substance Use: No Preferred Language: Lithuanian Communication Ability: Impaired Visual Impairment: No Limitations Hearing Ability: Use of Hearing Aid County Supervisor Required: No Beliefs That Will Affect Care: None marital status: Current Living Situation: Spouse Current Living Situation Comment: in house with current occupational status: retired 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, 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[employer] ([place]) How many Children do You have: 3 Feels Safe at Home: Yes Childhood Exposure to Second-Hand Smoke: Yes Diet: regular Diet Comment: regular caffeine: No during the past year weight has: remained stable Dental Care, Regularly: No Physical Activity Frequency: Does not Exercise Seatbelt Use: never Sunscreen Use: Yes Assistive Devices: Cane and Walker Allergies Allergies Allergy/AdvReac Type Severity Reaction Status Date / Time pollen extracts Allergy Mild CONGESTION Verified 02/07/24 21:55 Home Meds Home Medications Medication Instructions Recorded Confirmed cyanocobalamin (vitamin B-12) 1,000 mcg PO QAM 11/07/19 02/07/24 1,000 mcg tablet (Vitamin B-12) aspirin 81 mg tablet,delayed 81 mg PO QAM 02/26/21 02/07/24 release guaifenesin 600 mg tablet, 1,200 mg PO Q12 PRN cough 07/11/22 02/07/24 extended release 12 hr (Mucinex) levothyroxine 50 mcg tablet 50 mcg PO DAILYBB 01/25/24 02/07/24 Previous Rx's Medication Instructions Recorded levetiracetam 500 mg tablet 1,000 mg (2 x 500 mg) PO BID 90 03/17/23 (Keppra) days #360 tabs atorvastatin 40 mg tablet (Lipitor) 40 mg PO HS #90 tabs 05/31/23 diltiazem HCl 120 mg 120 mg PO HS #90 caps 08/29/23 capsule,extended release 24 hr sertraline 100 mg tablet 100 mg PO QAM #90 tabs 08/29/23 ferrous sulfate 325 mg (65 mg 325 mg PO Q OTHER DAY #90 tabs 11/06/23 iron) tablet,delayed release lisinopril 5 mg tablet 5 mg PO HS #90 tabs 11/27/23 pantoprazole 40 mg tablet,delayed 40 mg PO DAILY #90 tabs 12/13/23 release montelukast 10 mg tablet 10 mg PO HS #90 tabs 12/19/23 metoprolol tartrate 25 mg tablet 50 mg (2 x 25 mg) PO QAM #90 tabs 01/09/24 metformin 850 mg tablet 850 mg PO DAILY #90 tabs 01/15/24 fluticasone fur. 100 mcg-umeclid 1 inh inhalation QAM #180 ea 01/22/24 62.5 mcg-vilant 25 mcg inhalat.powder (Trelegy Ellipta) lidocaine 5 % topical patch 1 patch transdermal QAM #5 ea 02/10/24 oxycodone 5 mg tablet 5 mg PO Q4H PRN pain #10 tabs 02/10/24 polyethylene glycol 3350 17 gram 17 g PO DAILY #10 ea 02/10/24 oral powder packet (Miralax) quetiapine 25 mg tablet 25 mg PO HS #10 tabs 02/10/24 Results & Data (ED) Vital Signs Vital Signs - 24 hr 02/07/24 17:00 02/07/24 17:01 02/07/24 17:08 Temperature 37 C Temperature Source Oral Pulse Rate 86 Pulse Rate from SpO2 Sensor Respiratory Rate 18 Respiratory Effort / Characteristics Non-Labored Spontaneous Respiratory Depth Normal Respiratory Pattern Regular Blood Pressure 123/89 123/89 Blood Pressure Mean 98 100 Pulse Oximetry 94 Oxygen Delivery Method Room Air Room Air Sepsis Recent Fever Within 48 Hours No Sepsis New/Unexplained Change in Mental Status No Sepsis Action Taken by Nursing No Action Required 02/07/24 17:16 02/07/24 17:20 02/07/24 17:21 Temperature Temperature Source Pulse Rate 86 81 Pulse Rate from SpO2 Sensor 84 Respiratory Rate 15 Respiratory Effort / Characteristics Respiratory Depth Respiratory Pattern Blood Pressure 125/82 Blood Pressure Mean 102 Pulse Oximetry 90 Oxygen Delivery Method Sepsis Recent Fever Within 48 Hours Sepsis New/Unexplained Change in Mental Status Sepsis Action Taken by Nursing 02/07/24 17:42 02/07/24 17:57 02/07/24 18:00 Temperature Temperature Source Pulse Rate 82 91 H Pulse Rate from SpO2 Sensor 86 91 H Respiratory Rate 24 22 Respiratory Effort / Characteristics Respiratory Depth Respiratory Pattern Blood Pressure 129/81 Blood Pressure Mean 99 Pulse Oximetry 91 Oxygen Delivery Method Sepsis Recent Fever Within 48 Hours Sepsis New/Unexplained Change in Mental Status Sepsis Action Taken by Nursing 02/07/24 18:12 02/07/24 18:30 02/07/24 18:30 Temperature Temperature Source Pulse Rate 89 92 H Pulse Rate from SpO2 Sensor 84 86 Respiratory Rate 24 Respiratory Effort / Characteristics Respiratory Depth Respiratory Pattern Blood Pressure 126/75 Blood Pressure Mean 98 Pulse Oximetry 90 90 Oxygen Delivery Method Sepsis Recent Fever Within 48 Hours Sepsis New/Unexplained Change in Mental Status Sepsis Action Taken by Nursing 02/07/24 19:09 02/07/24 19:40 02/07/24 20:42 Temperature 37.1 C Temperature Source Oral Pulse Rate 94 H 99 H Pulse Rate from SpO2 Sensor Respiratory Rate 22 20 Respiratory Effort / Characteristics Respiratory Depth Respiratory Pattern Blood Pressure 125/92 105/72 Blood Pressure Mean 103 83 Pulse Oximetry 94 Oxygen Delivery Method Sepsis Recent Fever Within 48 Hours Sepsis New/Unexplained Change in Mental Status Sepsis Action Taken by Nursing 02/07/24 20:43 02/07/24 20:57 Temperature Temperature Source Pulse Rate 97 H 93 H Pulse Rate from SpO2 Sensor Respiratory Rate 20 Respiratory Effort / Characteristics Respiratory Depth Respiratory Pattern Blood Pressure 105/72 Blood Pressure Mean 91 Pulse Oximetry 93 Oxygen Delivery Method Room Air Sepsis Recent Fever Within 48 Hours Sepsis New/Unexplained Change in Mental Status Sepsis Action Taken by [facility] Medications Current Medication List: was personally reviewed by me Laboratory Data Attestation: I reviewed the patient's lab results. 02/10/24 05:06 02/10/24 05:06 Lab Results 02/07/24 02/07/24 02/07/24 Range/Units 17:01 17:08 18:41 WBC 15.41 H (4.8-10.8) K/ul RBC 4.46 L (4.70-6.10) M/uL Hgb 12.1 L (14.0-18.0) g/dl POC Hgb 13.6 L (14.0-18.0) g/dl Hct 38.6 L (42.0-52.0) % POC Hct 40 L (42-52) % MCV 86.5 (80.0-100.0) fL MCH 27.1 (25.0-34.0) pg MCHC 31.3 L (32.0-36.0) g/dL RDW Std Deviation 61.1 H (36.4-46.3) fL RDW Coeff of Ashu 19.8 H (11.5-14.5) % Plt Count 204 (130-400) K/uL MPV 10.2 (9.4-12.4) fL Immature Gran % (Auto) 0.7 % Neut % (Auto) 90.7 % Lymph % (Auto) 4.3 % [place] % (Auto) 4.0 % Eos % (Auto) 0.0 % Baso % (Auto) 0.3 % Neut # (Auto) 13.98 H (1.40-6.50) K/uL Lymph # (Auto) 0.66 L (1.20-3.40) K/uL [place] # (Auto) 0.61 H (0.11-0.59) K/uL Eos # (Auto) 0.00 (0.00-0.50) K/uL Baso # (Auto) 0.05 (0.00-0.20) K/uL Immature Gran # (Auto) 0.11 (0.01-0.20) K/uL POC Sodium 138 (135-144) mmol/L Sodium 137 (136-145) mmol/L POC Potassium 4.3 (3.3-5.0) mmol/L Potassium 4.3 (3.5-5.1) mmol/L POC Chloride 103 (101-112) mmol/L Chloride 102 (98-107) mmol/L Carbon Dioxide 26 (21-32) mmol/L POC Total CO2 23 L (24-31) mmol/L Anion Gap 9 (3-11) POC Anion Gap 18.0 (16-25) mmol/L POC BUN 24 H (7-18) mg/dl BUN 25 H (6-23) mg/dl Creatinine 0.95 (0.6-1.4) mg/dl POC Creatinine 0.9 (0.6-1.3) mg/dl Est Cr Clr Drug Dosing 49.8 ml/min eGFR 79.92 BUN/Creatinine Ratio 26.3 H (10-20) Glucose 219 H (70-99(Fasting)) mg/dl POC Glucose (other) 216 H (70-99) mg/dl Calcium 9.5 (8.6-10.3) mg/dl POC Ioniz Calcium Bhaskar 1.17 (1.12-1.32) mmol/l Total Bilirubin 0.4 (0.2-1.0) mg/dl AST 20 (13-39) U/L ALT 12 (7-52) U/L Alkaline Phosphatase 87 (34-104) U/L Troponin I High Sens 7.9 (0-20) pg/ml Total Protein 8.0 (6.0-8.3) gm/dl Albumin 4.4 (3.4-5.0) gm/dl Globulin 3.6 (2.5-4.0) gm/dl Albumin/Globulin Ratio 1.2 (0.9-2) Urine Color Yellow Urine Appearance Clear (Clear) Urine pH 5.5 (4.5-7.5) Ur Specific [place] 1.023 (1.000-1.030) Urine Protein 1+ H (Negative) Urine Glucose (UA) Negative (Negative) Urine Ketones Trace H (Negative) Urine Blood Negative (Negative) Urine Nitrite Negative (Negative) Urine Bilirubin Negative (Negative) Urine Urobilinogen Negative (Negative) Ur Leukocyte Esterase Negative (Negative) Urine WBC (Auto) 0-5 (0-5) /hpf Urine RBC (Auto) 0-2 (0-2) /hpf U Hyaline Cast (Auto) 0-2 (0-2) /lpf U Epithel Cells (Auto) 0-2 (0-2) /hpf Urine Bacteria (Auto) None Seen (None Seen) Administered Medications Discontinued Medications Acetaminophen (Acetaminophen 500 Mg Tab) 1,000 mg PO NOW STA Stop: 02/07/24 18:44 Last Admin: 02/07/24 19:13 Dose: 1,000 mg Documented By: WENDY Acetaminophen (Acetaminophen 500 Mg Tab) 1,000 mg PO Q8H [facility] Stop: 03/08/24 23:10 Last Admin: 02/07/24 23:13 Dose: Not Given Documented By: VIPIN Acetaminophen (Acetaminophen 500 Mg Tab) 1,000 mg PO Q8H [facility] Stop: 03/09/24 05:59 Last Admin: 02/09/24 05:50 Dose: 1,000 mg Documented By: Admin: 02/08/24 21:39 Dose: 1,000 mg Documented By: Admin: 02/08/24 13:34 Dose: 1,000 mg Documented By: Admin: 02/08/24 05:11 Dose: 1,000 mg Documented By: VIPIN Acetaminophen (Acetaminophen 325 Mg Tab) 650 mg PO Q6H PRN PRN Reason: Pain Stop: 03/10/24 11:44 Last Admin: 02/09/24 17:17 Dose: 650 mg Documented By: Admin: 02/09/24 11:57 Dose: 650 mg Documented By: TAMMIE Aspirin (Aspirin 81 Mg Ectab) 81 mg PO QAM [facility] Stop: 03/09/24 08:59 Last Admin: 02/10/24 08:54 Dose: 81 mg Documented By: Admin: 02/09/24 08:53 Dose: 81 mg Documented By: Admin: 02/08/24 08:34 Dose: 81 mg Documented By: ERIKA Atorvastatin Calcium (Atorvastatin 40 Mg Tab) 40 mg PO HS [facility] Stop: 03/09/24 20:59 Last Admin: 02/09/24 21:38 Dose: 40 mg Documented By: Admin: 02/08/24 21:04 Dose: 40 mg Documented By: LLUVIA Diltiazem HCl (Diltiazem Hcl 120 Mg Capcr) 120 mg PO HS [facility] Stop: 03/09/24 20:59 Last Admin: 02/09/24 21:39 Dose: 120 mg Documented By: Admin: 02/08/24 21:05 Dose: 120 mg Documented By: LLUVIA Fluticasone Furoate (Fluticasone Furoate 100mcg 14 Puffs/Inhaler) 1 puffs INH DAILY [facility] Stop: 03/09/24 08:59 Last Admin: 02/10/24 08:55 Dose: 1 puffs Documented By: Admin: 02/09/24 08:53 Dose: 1 puffs Documented By: Admin: 02/08/24 08:35 Dose: 1 puffs Documented By: ERIKA Haloperidol Lactate (Haloperidol Lactate 5 Mg/Ml 1 Ml Vial) 1 mg IV Q4H PRN PRN Reason: Agitation Stop: 03/09/24 20:17 Last Admin: 02/08/24 20:32 Dose: 1 mg Documented By: SAMMY Insulin Aspart (Insulin Aspart Per Unit Charge) 0 units SC [facility] Stop: 03/09/24 07:29 Last Admin: 02/10/24 08:18 Dose: Not Given Documented By: Admin: 02/09/24 21:44 Dose: 1 units Documented By: TAMMIE Co-signed By: MELVA Admin: 02/09/24 18:06 Dose: Not Given Documented By: Admin: 02/09/24 13:00 Dose: Not Given Documented By: Admin: 02/09/24 08:55 Dose: Not Given Documented By: Admin: 02/08/24 21:11 Dose: Not Given Documented By: Admin: 02/08/24 17:34 Dose: 2 units Documented By: ERIKA Co-signed By: CELI Admin: 02/08/24 12:46 Dose: 3 units Documented By: ERIKA Co-signed By: CELI Admin: 02/08/24 08:39 Dose: 2 units Documented By: ERIKA Co-signed By: JAYSON Levetiracetam (Levetiracetam 500 Mg Tab) 1,000 mg PO BID [facility] Stop: 03/09/24 08:59 Last Admin: 02/10/24 08:54 Dose: 1,000 mg Documented By: Admin: 02/09/24 21:38 Dose: 1,000 mg Documented By: Admin: 02/09/24 08:53 Dose: 1,000 mg Documented By: Admin: 02/08/24 21:05 Dose: 1,000 mg Documented By: Admin: 02/08/24 08:35 Dose: 1,000 mg Documented By: ERIKA Levothyroxine Sodium (Levothyroxine Sodium 50 Mcg Tablet) 50 mcg PO DAILYBB [facility] Stop: 03/09/24 06:29 Last Admin: 02/10/24 05:19 Dose: 50 mcg Documented By: Admin: 02/09/24 05:51 Dose: 50 mcg Documented By: Admin: 02/08/24 05:11 Dose: 50 mcg Documented By: VIPIN Lidocaine (Lidocaine 5% 1 Patch) [facility] Stop: 03/10/24 16:09 Last Admin: 02/10/24 08:55 Dose: 1 patch Documented By: Admin: 02/09/24 17:48 Dose: 1 patch Documented By: TAMMIE Lisinopril (Lisinopril 5 Mg Tab) 5 mg PO HS [facility] Stop: 03/09/24 20:59 Last Admin: 02/09/24 21:38 Dose: 5 mg Documented By: Admin: 02/08/24 21:07 Dose: 5 mg Documented By: LLUVIA Metformin HCl (Metformin Hcl 850 Mg Tab) 850 mg PO QAM [facility] Stop: 03/10/24 09:29 Last Admin: 02/10/24 08:53 Dose: 850 mg Documented By: Admin: 02/09/24 13:44 Dose: 850 mg Documented By: TAMMIE Metoprolol Tartrate (Metoprolol Tartrate 50 Mg Tab) 50 mg PO QAM [facility] Stop: 03/09/24 08:59 Last Admin: 02/10/24 08:53 Dose: 50 mg Documented By: Admin: 02/09/24 08:53 Dose: 50 mg Documented By: Admin: 02/08/24 08:36 Dose: 50 mg Documented By: ERIKA Miscellaneous (Remove Lidoderm Patch) 1 each N/A DAILY@2100 [facility] Stop: 03/10/24 20:59 Last Admin: 02/09/24 21:39 Dose: 1 each Documented By: TAMMIE Montelukast Sodium (Montelukast Sodium 10 Mg Tablet) 10 mg PO HS [facility] Stop: 03/09/24 20:59 Last Admin: 02/09/24 21:50 Dose: 10 mg Documented By: Admin: 02/08/24 21:07 Dose: 10 mg Documented By: LLUVIA Pantoprazole Sodium (Pantoprazole 40 Mg Tab) 40 mg PO DAILY [facility] Stop: 03/09/24 08:59 Last Admin: 02/10/24 08:53 Dose: 40 mg Documented By: Admin: 02/09/24 08:53 Dose: 40 mg Documented By: Admin: 02/08/24 08:34 Dose: 40 mg Documented By: ERIKA Polyethylene Glycol (Polyethylene (Miralax) 17 Gm Pack) 17 gm PO DAILY [facility] Stop: 03/09/24 08:59 Last Admin: 02/10/24 09:02 Dose: 17 gm Documented By: Admin: 02/09/24 08:57 Dose: 17 gm Documented By: Admin: 02/08/24 08:34 Dose: 17 gm Documented By: ERIKA Quetiapine Fumarate (Quetiapine Fumarate 25 Mg Tablet) 25 mg PO HS [facility] Stop: 03/10/24 20:59 Last Admin: 02/09/24 21:39 Dose: 25 mg Documented By: TAMMIE Sertraline HCl (Sertraline Hcl 100 Mg Tablet) 100 mg PO QA [facility] Stop: 03/09/24 08:59 Last Admin: 02/09/24 08:53 Dose: 100 mg Documented By: Admin: 02/08/24 08:34 Dose: 100 mg Documented By: ERIKA Umeclidinium/Vilanterol (Umeclidinium/Vilanterol 62.5/25mcg 7 Puffs/Inhaler) 1 puffs INH DAILY [facility] Stop: 03/09/24 08:59 Last Admin: 02/10/24 08:54 Dose: 1 puffs Documented By: Admin: 02/09/24 08:52 Dose: 1 puffs Documented By: Admin: 02/08/24 08:35 Dose: 1 puffs Documented By: MP Imaging Data Radiologist's Impression: Hip/Pelvis X-Ray 02/07/24 17:05 XR hip RT 2V w pelvis HISTORY: 83 years-old Male trauma, fall acute pelvic pain status post trauma COMPARISON: 07/14/2023 TECHNIQUE: AP view of the pelvis with 2 views of the right hip FINDINGS: Arterial calcifications. Mild osteoarthritis of the hips. Demineralized appearance of the bones. No acute fracture, dislocation or osseous erosion. IMPRESSION: No acute fracture or dislocation. ACT 112: Negative or not required by law. The above report was generated using voice recognition software. It may contain grammatical, syntax or spelling errors. Electronically signed by: Bulmaro Deluca M.D. 02/07/2024 5:[address] 02/07/24 17:06 CT cervical spine wo con CLINICAL HISTORY: 83 years-old Male with Trauma. Acute neck injury status post trauma COMPARISON: 10/15/2019. TECHNIQUE: Multiple axial CT images of the cervical spine were obtained without contrast. A dose lowering technique was utilized adhering to the principles of ALARA. FINDINGS: Unchanged sclerotic focus of the C3 vertebral body, possibly a bone island. There is severe multilevel disc space narrowing and facet arthrosis with moderate spondylitic spurring. Grade 1 anterolisthesis C5 on C6 is likely related. No acute fracture or subluxation. Atherosclerotic plaque of the carotid bulbs. The cervical soft tissues appear unremarkable. The visualized lung apices appear clear. IMPRESSION: No acute cervical spine fracture or subluxation identified. ACT 112: Negative or not required by law. The above report was generated using voice recognition software. It may contain grammatical, syntax or spelling errors. Electronically signed by: Bulmaro Deluca M.D. 02/07/2024 6:16 PM Chest X-Ray 02/07/24 17:06 XR chest 1V portable HISTORY: 83 years-old Male trauma COMPARISON: 01/25/2024 TECHNIQUE: AP view of the chest FINDINGS: Cardiac silhouette is enlarged. Coronary arterial stenting. No pneumothorax, pleural effusion or overt pulmonary edema. Emphysema with chronic interstitial coarsening. Degenerative changes of the shoulders and spine. IMPRESSION: Emphysema without acute process. ACT 112: Negative or not required by law. The above report was generated using voice recognition software. It may contain grammatical, syntax or spelling errors. Electronically signed by: Bulmaro Deluca M.D. 02/07/2024 5:[address] 02/07/24 17:06 CT head/brain wo con CLINICAL HISTORY: 83 years-old Male with Trauma. Acute head trauma TECHNIQUE: Multiple axial CT images of the head were obtained without contrast. A dose lowering technique was utilized adhering to the principles of ALARA. CT DOSE: 1097.6 mGy.cm COMPARISON: 01/25/2024. FINDINGS: No acute intracranial hemorrhage, midline shift, intracranial mass, acute territorial ischemia or abnormal extra-axial collection. Involutional changes with chronic microvascular ischemic disease. Chronic left cerebellar infarct. The calvarium is intact. Moderate mucosal thickening of the paranasal sinuses with layering maxillary air-fluid levels. Findings have mildly improved. IMPRESSION: No acute intracranial abnormality or calvarial fracture. ACT 112: Negative or not required by law. The above report was generated using voice recognition software. It may contain grammatical, syntax or spelling errors. Electronically signed by: Bulmaro Deluca M.D. 02/07/2024 6:11 PM Discharge Plan Visit Data Chief Complaint: Trauma Stated Complaint: fall ED Provider: Amy Khalil Discharge Problem: Closed pelvic fracture, Fall, Ambulatory dysfunction Patient Disposition: Home - Self-Care Discharge Instructions Interventions: ED Discharge Assessment Last Done: 02/07/24 22:40 Discharge Problem: Closed pelvic fracture Qualifiers: Encounter type: initial encounter Pelvic bone location: unspecified part of pelvis Fracture alignment: displaced Qualified Code(s): S32.9XXA - Fracture of unspecified parts of lumbosacral spine and pelvis, initial encounter for closed fracture Fall Qualifiers: Encounter type: initial encounter Qualified Code(s): W19.XXXA - Unspecified fall, initial encounter
--- NOTE | 2024-02-08 00:19 | CT Scan Report ---
Exam(s): CT PELVIS Without Contrast EXAM: CT Pelvis Without Intravenous Contrast CLINICAL HISTORY: Reason for exam: R hip pain after fall. TECHNIQUE: Axial computed tomography images of the pelvis without intravenous contrast. CTDI is 14.79 mGy and DLP is 766.25 mGy-cm. Automated exposure control was utilized for the study. A dose lowering technique was utilized adhering to the principles of ALARA. COMPARISON: CT abdomen/pelvis: 12/10/2021 FINDINGS: Bones/joints: Diffuse osseous demineralization. Mildly displaced acute fracture of the right ischiopubic rami (series 303 image 347). Comminuted mildly displaced fracture of the right pubic bone (series 303 image 294, series 304 image 41). Moderate degenerative disc/endplate spondylitic changes are seen at L5- S1 level. Bowel: Large amount of formed stool is seen throughout the visualized colon, including in a distended rectosigmoid. No obstruction. No mucosal thickening. Appendix: No findings to suggest acute appendicitis. Intraperitoneal space: Unremarkable. No free air. No significant fluid collection. Bladder: A distended urinary bladder. No stones. Reproductive: Moderately severe prostatomegaly. Centrally prostatitic calcification Soft tissues: Unremarkable. Vasculature: Extensive calcified atherosclerosis of the aortoiliac vasculature and all branch vessels. No lower abdominal aortic aneurysm. Lymph nodes: No enlarged lymph nodes. Bilateral small inguinal lymph nodes.. IMPRESSION: Mildly displaced acute fracture of the right ischiopubic rami. Mildly displaced comminuted fracture of the right pubic bone. Moderately severe prostatomegaly. Extensive calcified atherosclerosis of the aortoiliac vasculature. Large amount of stool is seen throughout the visualized colon, including in a distended rectosigmoid. Electronically signed by: Steven Sadler MD, DEZR 02/08/24 00:18 AM
[2024-02-08] MEDS ORDERED: bisacodyL 10 MG SUPP PR PRN (00:35)
[2024-02-08] MEDS: ACETAMINOPHEN 500 MG TAB PO SCH (05:11)
[2024-02-08] MEDS: LEVOTHYROXINE SODIUM 50 MCG TABLET PO SCH (05:11)
[2024-02-08 06:20] LABS: Hematocrit (blood only) 36.4 % (42.0-52.0); Hemoglobin 11.5 g/dl (14.0-18.0); Mean Corpuscular Hemoglobin 26.9 pg (25.0-34.0); Mean Corpuscular Hgb Conc 31.6 g/dL (32.0-36.0); Mean Platelet Volume 9.9 fL (9.4-12.4); Platelet Count 183 K/uL (130-400); RDW Coefficient of Variation 19.7 % (11.5-14.5); RDW Standard Deviation 60.7 fL (36.4-46.3); Red Blood Count 4.28 M/uL (4.70-6.10); White Blood Count 9.01 K/ul (4.8-10.8)
[2024-02-08 06:31] LABS: BUN Creatinine Ratio 21.2 (10-20); Calcium 9.3 mg/dl (8.6-10.3); Creatinine Clr Calc Pharmacy 54.2 ml/min; Potassium 3.8 mmol/L (3.5-5.1)
--- NOTE | 2024-02-08 07:20 | Electrocardiogram Report ---
Test Reason : Blood Pressure : */* mmHG Vent. Rate : 86 BPM Atrial Rate : * BPM P-R Int : * ms QRS Dur : 80 ms QT Int : 378 ms P-R-T Axes : * 28 -36 degrees QTcB Int : 452 ms Atrial fibrillation Abnormal ECG When compared with ECG of 25-Jan-2024 19:44, ST now depressed in Anterior leads Nonspecific T wave abnormality now evident in Inferior leads T wave inversion now evident in Anterolateral leads Confirmed by Mohsen Miguel ([id number]) on 02/08/2024 7:20:14 AM Referred By: REFERRED SELF Confirmed By: Mohsen Miguel
[2024-02-08] MEDS: SERTRALINE HCL 100 MG TABLET PO SCH (08:34)
[2024-02-08] MEDS: POLYETHYLENE (MIRALAX) 17 GM PACK PO SCH (08:34)
[2024-02-08] MEDS: ASPIRIN 81 MG ECTAB PO SCH (08:34)
[2024-02-08] MEDS: PANTOprazole 40 MG TAB PO SCH (08:34)
[2024-02-08] MEDS: FLUTICASONE FUROATE 100MCG 14 PUFFS/INHALER INH SCH (08:35)
[2024-02-08] MEDS: UMECLIDINIUM/VILANTEROL 62.5/25MCG 7 PUFFS/INHALER INH SCH (08:35)
[2024-02-08] MEDS: levETIRAcetam 500 MG TAB PO SCH (08:35)
[2024-02-08] MEDS: METOPROLOL TARTRATE 50 MG TAB PO SCH (08:36)
[2024-02-08] MEDS: INSULIN ASPART PER UNIT CHARGE SC SCH (08:39)
[2024-02-08] MEDS ORDERED: NON-FORMULARY MEDICATION (Fluticasone-Umeclidin-Vilanter [Trelegy Ellipta] 100-62.5-25 mcg INH SCH (09:00)
--- OUTSIDE RECORDS SUMMARY | 2024-02-08 09:19 | External Medical Summary ---
Author Name Unknown Address Unknown Organization [id number]:LABORATORY [facility] [place] [address] [place] [id number] Laboratory Report Ordering Provider Test Date Status USMAN MENCHACA 01/28/2024 05:35:00 Final Observation Date Value Abnormality Reference (Units ) Status BUN 01/28/2024 05:35:00 24 Above high normal 6-20 (mg/dL) Final Creatinine 01/28/2024 05:35:00 1.0 0.6-1.2 (mg/dL) Final Glomerular filtration rate/1.73 sq M.predicted [Volume Rate/Area] in Serum, Plasma or Blood by Creatinine-based formula (CKD-EPI) 01/28/2024 05:35:00 73 >=60 (mL/min) Final eGFR is calculated based on the CKD-EPI 2020 equation. Sodium 01/28/2024 05:35:00 140 135-146 (m mol/L) Final Potassium 01/28/2024 05:35:00 4.4 3.5-5.1 (m mol/L) Final Cl 01/28/2024 05:35:00 101 98-107 (mm ol/L) Final CO2 01/28/2024 05:35:00 26 22-32 (mmo l/L) Final Anion gap 01/28/2024 05:35:00 13 7-15 (mmol /L) Final Glucose 01/28/2024 05:35:00 125 Above high normal 70 -120 (mg/dL) Final Calcium 01/28/2024 05:35:00 9.6 8.4-10.2 ( mg/dL) Final Performing Location [facility]ORY [place] [address] [place] [id number]
--- OUTSIDE RECORDS SUMMARY | 2024-02-08 09:19 | External Medical Summary ---
Author Name Unknown Address Unknown Organization [id number]:[facility] [place] [address] [place] [id number] Laboratory Report Ordering Provider Test Date Status SAE BUTCHER 01/30/2024 06:49:47 Final Observation Date Value Abnormality Reference (Units ) Status TSH 01/30/2024 06:49:47 3.75 0.27-4.20 (uIU/mL) Final Performing Location LABORATORY [facility] - [address] [place] [id number]
--- OUTSIDE RECORDS SUMMARY | 2024-02-08 09:19 | External Medical Summary ---
Author Name Unknown Address Unknown Organization [id number]:[facility]ATORY [facility] [place] [address] - [address] [place] [id number] Laboratory Report Ordering Provider Test Date Status USMAN MENCHACA 01/28/2024 05:35:00 Final Observation Date Value Abnormality Reference (Units ) Status WBC, Total 01/28/2024 05:35:00 6.04 4.00-10.8 0 (K/uL) Final RBC 01/28/2024 05:35:00 4.46 4.50-5.25 (M/uL) Final Hemoglobin 01/28/2024 05:35:00 12.0 Below low normal 14 .0-16.8 (g/dL) Final HCT 01/28/2024 05:35:00 37.6 Below low normal 40. 0-48.4 (%) Final MCV 01/28/2024 05:35:00 84.3 82.0-99.5 (fL) Final MCH 01/28/2024 05:35:00 26.9 27.0-34.0 (pg) Final MCHC 01/28/2024 05:35:00 31.9 32.0-36.0 (g/dL) Final RDW 01/28/2024 05:35:00 19.8 11.5-15.5 (%) Final Platelets 01/28/2024 05:35:00 172 140-400 (K /uL) Final MPV 01/28/2024 05:35:00 10.6 6.6-11.1 ( fL) Final Performing Location LAB[facility]ATORY [facility] [place] [address] [place] [id number]
--- NOTE | 2024-02-08 12:54 | Hospitalist Progress Note ---
Date of Service February 08, 2024 Assessment & Plan (1) Fall: Plan: Patient with ground level fall resulting in small skin tear above right eye, closed pelvic fractures as above. No anticoagulation but patient is on a daily aspirin. Supportive care. Pain control measures if needed (2) Pelvic fracture: Plan: Multiple fractures noted on x-ray. Orthopedic consultation pending. Will monitor serial H&H for bleeding (3) Fecal retention: Plan: Large amount of stool noted in the colon on CT imaging. Patient with no complaints. Dulcolax 10mg RI daily. Miralax daily (4) Diabetes type 2, controlled: Plan: ADA diet. Sliding scale coverage as needed. Metformin is currently on hold. (5) Seizure disorder: Plan: Stable. Continue current medical management (6) COPD (chronic obstructive pulmonary disease): Plan: Stable. Continue current medical management Plan Await orthopedic consultation and recommendations. OT and PT evaluations. Expect eventual return to SNF for IPR. Admission and Anticipated Discharge Date Admission Date: February 07, 2024 Subjective Alert and oriented. No distress. No significant pain while sitting in a chair. Orthopedic consultation pending. Metformin remains on hold. He was just recently at [facility] and I suspect he will need SNF or IPR placement at the time of discharge. OT and PT assessments have been requested. Review of Systems 2 Review of Systems: Constitutionalno fever or chills ENTno blurred vision, no double vision, no epistaxis, no sore throat Respiratoryno cough, no wheezing, no shortness of breath Cardiacno palpitations, no chest pain, no syncope Agata nausea, vomiting, diarrhea, melena, hematochezia GUno urinary retention, no urinary incontinence, no dysuria, no hematuria Musculoskeletalpelvic discomfort with weightbearing and attempted ambulation due to recent fall and pelvic fractures Skinlaceration above right eyebrow with hemostasis. No sutures Neuro- no isolated weakness, no paresthesia, no weakness Psychno depression, no anxiety Physical Exam 2 Physical Exam: General-alert and oriented x3, no fever, no chills HEENT-head atraumatic and normocephalic, pupils equal and reactive to light, extraocular muscles intact Neck-no lymphadenopathy or thyromegaly, trachea midline Chest-clear to auscultation. No rales, wheezing or rhonchi Cardiac-regular rate and rhythm, normal S1 and S2 Abdomen-normal bowel sounds, no hepatosplenomegaly Extremities-no cyanosis, clubbing, or edema Skinlaceration above right eyebrow with hemostasis and no suturing or raciel Neuro-cranial nerves II through XII intact, motor and sensory function within normal limits, strength symmetrical with generalized weakness, no focal deficits Psych-normal affect, normal mood Results & Data Results & Data Vital Signs (Past 12 Hours) Vital Signs Temp Pulse Resp BP Pulse Ox O2 Del Method 02/08/24 11:43 36.4 C L 77 19 113/50 L 99 Room Air 02/08/24 08:00 Room Air 02/08/24 07:58 36.4 C L 95 H 19 121/87 95 Room Air 02/08/24 04:06 36.6 C 87 18 142/88 H 94 Room Air Laboratory Results 02/08/24 05:20 02/08/24 05:20 PG Care Time/CCT Total # of Minutes Spent Total Time Spent with Patient: Total time spent is greater than 50% in coordination of care (as documented) at patient's floor/unit and/or counseling patient: Coding Level of Care Code 15855 SUB INP/OBS CARE 3/50MIN Diagnoses Fall W19.XXXA Pelvic fracture S32.9XXA Fecal retention K59.00 Diabetes type 2, controlled E11.9 Seizure disorder G40.909 COPD (chronic obstructive pulmonary disease) J44.9
--- NOTE | 2024-02-08 13:34 | Orthopedic Consultation ---
Date of Consultation February 08, 2024 Assessment & Plan (1) Pelvic fracture: Imaging was reviewed. Findings and plan discussed with patient. We will tx this conservatively with pain control, PT/OT. WBAT with walker. DVT prophylaxis per primary. May need pillow or donut to sit on if he has any pain with sitting, currently he says he does not. Follow up outpatient in 2 weeks with repeat x rays. All of his questions were addressed. Will discuss with attending. Supervising Physician Co-Signing Physician Notes I saw and examined the patient, independently interpreted his imaging showing nondisplaced right superior and inferior pubic rami fractures, formulated the plan, and performed the substantive portion of the visit. Agree with above note. Stable pattern injury. No surgery. He can WBAT with a walker. Follow-up with Jennie Tran PA-C at [facility] in 2 weeks with AP pelvis, inlet and outlet views. Contact ortho with any questions. History of Present Illness Reason for Consultation: right pelvic fracture Attending Physician: Darrel Staley MD History of Present Illness Jose J Zurita is an 83yo male with history of HTN, COPD, CAD, DM, Seizure and PAF not on anticoagulation presenting from home after a fall. Patient was getting the mail when he slipped on the wet grass and fell onto the ground. He reports hitting his head on the right side. He was able to get up and walk to the home. EMS was called and they checked him out. Later in the day he was unable to get up and walk or bear weight so he again called EMS and was brought to the ER. Today he says that he is not having any pain at rest. He only has pain when he bears weight. His pain is in his groin. He denies any other issues or pain in that leg. Allergies Allergy/AdvReac Type Severity Reaction Status Date / Time pollen extracts Allergy Mild CONGESTION Verified 02/07/24 21:55 Home Medications Medication Instructions Recorded Confirmed Type cyanocobalamin (vitamin B-12) 1,000 mcg PO QAM 11/07/19 02/07/24 History 1,000 mcg tablet (Vitamin B-12) aspirin 81 mg tablet,delayed 81 mg PO QAM 02/26/21 02/07/24 History release guaifenesin 600 mg tablet, 1,200 mg PO Q12 PRN cough 07/11/22 02/07/24 History extended release 12 hr (Mucinex) levetiracetam 500 mg tablet 1,000 mg (2 x 500 mg) PO BID 90 03/17/23 02/07/24 Rx (Keppra) days #360 tabs atorvastatin 40 mg tablet (Lipitor) 40 mg PO HS #90 tabs 05/31/23 02/07/24 Rx diltiazem HCl 120 mg 120 mg PO HS #90 caps 08/29/23 02/07/24 Rx capsule,extended release 24 hr sertraline 100 mg tablet 100 mg PO QAM #90 tabs 08/29/23 02/07/24 Rx ferrous sulfate 325 mg (65 mg 325 mg PO Q OTHER DAY #90 tabs 11/06/23 02/07/24 Rx iron) tablet,delayed release lisinopril 5 mg tablet 5 mg PO HS #90 tabs 11/27/23 02/07/24 Rx pantoprazole 40 mg tablet,delayed 40 mg PO DAILY #90 tabs 12/13/23 02/07/24 Rx release montelukast 10 mg tablet 10 mg PO HS #90 tabs 12/19/23 02/07/24 Rx metoprolol tartrate 25 mg tablet 50 mg (2 x 25 mg) PO QAM #90 tabs 01/09/24 02/07/24 Rx metformin 850 mg tablet 850 mg PO DAILY #90 tabs 01/15/24 02/07/24 Rx fluticasone fur. 100 mcg-umeclid 1 inh inhalation QAM #180 ea 01/22/24 02/07/24 Rx 62.5 mcg-vilant 25 mcg inhalat.powder (Trelegy Ellipta) levothyroxine 50 mcg tablet 50 mcg PO DAILYBB 01/25/24 02/07/24 History Patient History Medical History Dementia Pneumonia HTN (hypertension), benign Fall from standing Fall Vomiting Tobacco use disorder Vomiting COPD (chronic obstructive pulmonary disease) SOB (shortness of breath) Fever Chewing tobacco use Hypoxia Pneumonia History of sinusitis History of acute bronchitis with bronchospasm Osteoarthritis Anxiety CAD (coronary artery disease) Seizure 01/29/19 - X2 ON THAT DAY AND WAS ADMITTED AND STARTED ON [place] AND NO SEIZURE SINCE Abdominal aortic aneurysm (AAA), 30-34 mm diameter Benign prostatic hyperplasia with urinary obstruction Hypertension Hypothyroidism (acquired) Type 2 diabetes mellitus Vitamin B12 deficiency Paroxysmal atrial fibrillation DX [address] [place]LLAR IN [place] Atrial flutter DX [address] CUELLAR IN [place] Surgical History Presence of Watchman left atrial appendage closure device (06/24/22) S/P Mohs surgery for basal cell carcinoma History of colonoscopy History of lung biopsy (03/27/19) Navigational Bronchoscopy with ICG Dye, Robotic Right Video Assisted Thoracoscopy with Right Lower Lobe Wedge Resection with Mediastinal Lymphadenectomy and Lymph Node Biopsy Dr. Lynn 03/27/19 Hx of cardiac cath 2017 -- HEART CATH WITH STENT 6 TOTAL [facility] WITH DR CUELLAR LAST SEEN 12/20/2018 History of anesthesia reaction states "stopped breathing during MOHS procedure at the [facility] [place] H/O 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 Family History Father Heart disease Other COPD (chronic obstructive pulmonary disease) Depression Family history non-contributory Denies family history of Ovarian cancer Prostate cancer Coronary heart disease Myocardial infarction Breast cancer Seizure Lung cancer Colorectal cancer Social History Smoking Status: Former smoker Tobacco Type: Smokeless Tobacco (Dip or Chew) Age Started Using Tobacco: 18; Age Quit Using Tobacco: 33; packs per day: 2; Cigarettes Per Day: 20-40; Second Hand Exposure: No; Do You Dip or Chew Tobacco: Yes; Hx Alcohol Use: No Hx Substance Use: No Preferred Language: Maori Communication Ability: Impaired Visual Impairment: No Limitations Hearing Ability: 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 of 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 Beliefs That Will Affect Care: None marital status: Current Living Situation: Spouse Current Living Situation Comment: in house with current occupational status: retired 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 NAD. Was not oriented to month or year earlier, per nursing, but is now. Right LE: No breaks in the skin, no ecchymosis or swelling. No TTP. Pain-free passive ROM of hip in flexion, abd, add, internal and external rotation. Tender to palpation over R pubic bone. Full ROM knee and ankle. He can DF/PF against some light resistance. NVI distally to light touch. Skin warm and pink. Results & Data Vital Signs (Past 12 Hours) Vital Signs Temp Pulse Resp BP Pulse Ox O2 Del Method 02/08/24 11:43 36.4 C L 77 19 113/50 L 99 Room Air 02/08/24 08:00 Room Air 02/08/24 07:58 36.4 C L 95 H 19 121/87 95 Room Air 02/08/24 04:06 36.6 C 87 18 142/88 H 94 Room Air Diagnostic Findings CT right hip Mildly displaced acute fracture of the right ischiopubic rami. Mildly displaced comminuted fracture of the right pubic bone.
[2024-02-08] MEDS: HALOPERIDOL LACTATE 5 MG/ML 1 ML VIAL IV PRN (20:32)
[2024-02-08] MEDS: ATORVASTATIN 40 MG TAB PO SCH (21:04)
[2024-02-08] MEDS: dilTIAZem HCL 120 MG CAPCR PO SCH (21:05)
[2024-02-08] MEDS: lisinopril 5 MG TAB PO SCH (21:07)
[2024-02-08] MEDS: MONTELUKAST SODIUM 10 MG TABLET PO SCH (21:07)
[2024-02-09 06:15] LABS: Basophils # (auto) 0.04 K/uL (0.00-0.20); Basophils % (auto) 0.6 %; Eosinophils # (auto) 0.02 K/uL (0.00-0.50); Eosinophils % (auto) 0.3 %; Hematocrit (blood only) 35.9 % (42.0-52.0); Hemoglobin 11.4 g/dl (14.0-18.0); Immature Granulocytes # (auto) 0.02 K/uL (0.01-0.20); Immature Granulocytes % (auto) 0.3 %; Lymphocytes # (auto) 1.07 K/uL (1.20-3.40); Lymphocytes % (auto) 16.8 %; Mean Corpuscular Hgb Conc 31.8 g/dL (32.0-36.0); Mean Corpuscular Volume 84.9 fL (80.0-100.0); Mean Platelet Volume 9.8 fL (9.4-12.4); Monocytes # (auto) 0.77 K/uL (0.11-0.59); Monocytes % (auto) 12.1 %; Neutrophils # (auto) 4.46 K/uL (1.40-6.50); Neutrophils % (auto) 69.9 %; Platelet Count 177 K/uL (130-400); RDW Coefficient of Variation 19.9 % (11.5-14.5); RDW Standard Deviation 61.1 fL (36.4-46.3); Red Blood Count 4.23 M/uL (4.70-6.10); White Blood Count 6.38 K/ul (4.8-10.8)
[2024-02-09 06:44] LABS: Calcium 9.2 mg/dl (8.6-10.3); Potassium 3.9 mmol/L (3.5-5.1)
--- NOTE | 2024-02-09 10:03 | Orthopedic Progress Note ---
Date of Service February 09, 2024 Assessment & Plan (1) Pelvic fracture: Plan: Reviewed physical therapy notes from 02/08/2024. Patient not a candidate to return home. Agree will require rehab. Conservative treatment no surgical intervention required. Pain control PT/OT Weightbearing as tolerated with walker. DVT prophylaxis per primary. Follow-up outpatient in 2 weeks with repeat x-rays. Admission and Anticipated Discharge Date Admission Date: February 07, 2024 Subjective Patient seen in room. He denies any pain at rest, but does have pain in the right groin with movement. He denies any numbness or tingling in his toes. No abdominal tenderness. He otherwise has no concerns at this time. Physical Exam Physical Exam: Constitutional: Resting comfortably in bed, pleasant, in no distress at rest. Does have some pain in the right groin with changes in position. Gastrointestinal (Abdomen): Old yellow appearing ecchymosis to the lower abdomen just right of midline. There is no abdominal tenderness or rigidity. Musculoskeletal: Right lower extremity: No ecchymosis noted to the groin or leg. No swelling. Compartments are soft. Unable to perform a straight leg raise secondary to pain. Able to actively flex the knee to 100 degrees. Moves all toes. Full range of motion in the ankle with dorsiflexion and plantarflexion. 5/5 strength with plantarflexion and dorsiflexion. Left lower extremity: Full active range of motion with flexion and extension at the hip, knee, ankle. Moves all toes. Able to perform straight leg raise. Neurologic: No sensory deficits in right lower extremity Results & Data Vital Signs (Past 12 Hours) Vital Signs Temp Pulse Pulse Pulse Resp BP BP 02/09/24 08:00 95 H 02/09/24 08:00 02/09/24 07:05 97 H 20 97/64 L 02/09/24 02:50 97.9 F 52 L 18 130/86 02/08/24 23:56 98.1 F 109 H 17 128/67 02/08/24 23:35 95 H 02/08/24 23:11 Pulse Ox Pulse Ox O2 Del Method O2 Del Method 02/09/24 08:00 02/09/24 08:00 Room Air 02/09/24 07:05 93 Room Air 02/09/24 02:50 95 Room Air 10/03/24 23:56 96 Room Air 02/08/24 23:35 02/08/24 23:11 95 Room Air
[2024-02-09] MEDS ORDERED: ACETAMINOPHEN 325 MG TAB PO PRN (11:38)
[2024-02-09] MEDS: ACETAMINOPHEN 325 MG TAB PO PRN (11:57)
--- NOTE | 2024-02-09 13:02 | Hospitalist Progress Note ---
Date of Service February 09, 2024 Assessment & Plan (1) Fall: Plan: Patient with ground level fall resulting in small skin tear above right eye, closed pelvic fractures as above. No anticoagulation but patient is on a daily aspirin. Supportive care. Pain control measures if needed (2) Pelvic fracture: Plan: Multiple fractures noted on x-ray. Orthopedic consultation appreciated. No operative intervention at this time. Pain control measures. Weightbearing as tolerated. (3) Fecal retention: Plan: Large amount of stool noted in the colon on CT imaging. Patient with no complaints. Continue Dulcolax 10mg TN daily and Miralax daily (4) Diabetes type 2, controlled: Plan: ADA diet. Sliding scale coverage as needed. Metformin restarted today, February 08 (5) Seizure disorder: Plan: Stable. Continue current medical management (6) COPD (chronic obstructive pulmonary disease): Plan: Stable. Continue current medical management (7) Sundowning: Plan: One-on-one sitter currently in place. Will add Seroquel 25 mg at bedtime. Supportive care Plan Case management pursuing placement at either [facility] or [facility] Admission and Anticipated Discharge Date Admission Date: February 07, 2024 Subjective Alert and oriented at this time. He apparently had some sundowning last evening and now has a one-on-one sitter in the room. Will add Seroquel 25 mg at bedtime. Case management is pursuing SNF placement at [facility] or [facility] per 's request. Metformin was restarted today, February 08. Fasting glucose 156 this morning. Review of Systems 2 Review of Systems: Constitutionalno fever or chills ENTno blurred vision, no double vision, no epistaxis, no sore throat Respiratoryno cough, no wheezing, no shortness of breath Cardiacno palpitations, no chest pain, no syncope Agata nausea, vomiting, diarrhea, melena, hematochezia GUno urinary retention, no urinary incontinence, no dysuria, no hematuria Musculoskeletalpelvic discomfort with weightbearing and attempted ambulation due to recent fall and pelvic fractures Skinlaceration above right eyebrow with hemostasis. No sutures Neuro- no isolated weakness, no paresthesia, no weakness Psychno depression, no anxiety Physical Exam 2 Physical Exam: General-alert and oriented x3, no fever, no chills HEENT-head atraumatic and normocephalic, pupils equal and reactive to light, extraocular muscles intact Neck-no lymphadenopathy or thyromegaly, trachea midline Chest-clear to auscultation. No rales, wheezing or rhonchi Cardiac-regular rate and rhythm, normal S1 and S2 Abdomen-normal bowel sounds, no hepatosplenomegaly Extremities-no cyanosis, clubbing, or edema Skinlaceration above right eyebrow with hemostasis and no suturing or raciel Neuro-cranial nerves II through XII intact, motor and sensory function within normal limits, strength symmetrical with generalized weakness, no focal deficits Psych-normal affect, normal mood Results & Data Results & Data Vital Signs (Past 12 Hours) Vital Signs Temp Pulse Pulse Resp BP BP Pulse Ox 02/09/24 10:49 99 H 16 139/85 95 02/09/24 08:00 95 H 02/09/24 08:00 02/09/24 07:05 97 H 20 97/64 L 93 02/09/24 02:50 36.6 C 52 L 18 130/86 95 O2 Del Method 02/09/24 10:49 Room Air 02/09/24 08:00 02/09/24 08:00 Room Air 02/09/24 07:05 Room Air 02/09/24 02:50 Room Air Laboratory Results 02/09/24 05:52 02/09/24 05:52 PG Care Time/CCT Total # of Minutes Spent Total Time Spent with Patient: Total time spent is greater than 50% in coordination of care (as documented) at patient's floor/unit and/or counseling patient: Coding Level of Care Code 81542 SUB INP/OBS CARE 3/50MIN Diagnoses Fall W19.XXXA Pelvic fracture S32.9XXA Fecal retention K59.00 Diabetes type 2, controlled E11.9 Seizure disorder G40.909 COPD (chronic obstructive pulmonary disease) J44.9 F05
[2024-02-09] MEDS: metFORMIN HCL 850 MG TAB PO SCH (13:44)
[2024-02-09] MEDS: LIDOCAINE 5% 1 PATCH TD SCH (17:48)
[2024-02-09] MEDS: QUEtiapine FUMARATE 25 MG TABLET PO SCH (21:39)
[2024-02-10 05:46] LABS: Basophils # (auto) 0.03 K/uL (0.00-0.20); Basophils % (auto) 0.5 %; Eosinophils # (auto) 0.01 K/uL (0.00-0.50); Eosinophils % (auto) 0.2 %; Hematocrit (blood only) 37.8 % (42.0-52.0); Hemoglobin 11.8 g/dl (14.0-18.0); Immature Granulocytes # (auto) 0.03 K/uL (0.01-0.20); Immature Granulocytes % (auto) 0.5 %; Lymphocytes # (auto) 1.28 K/uL (1.20-3.40); Lymphocytes % (auto) 19.5 %; Mean Corpuscular Hemoglobin 26.9 pg (25.0-34.0); Mean Corpuscular Hgb Conc 31.2 g/dL (32.0-36.0); Mean Corpuscular Volume 86.3 fL (80.0-100.0); Mean Platelet Volume 9.9 fL (9.4-12.4); Monocytes # (auto) 0.73 K/uL (0.11-0.59); Monocytes % (auto) 11.1 %; Neutrophils # (auto) 4.47 K/uL (1.40-6.50); Neutrophils % (auto) 68.2 %; Platelet Count 178 K/uL (130-400); RDW Coefficient of Variation 19.9 % (11.5-14.5); RDW Standard Deviation 61.4 fL (36.4-46.3); Red Blood Count 4.38 M/uL (4.70-6.10); White Blood Count 6.55 K/ul (4.8-10.8)
[2024-02-10 05:56] LABS: Calcium 9.4 mg/dl (8.6-10.3); Creatinine Clr Calc Pharmacy 54.4 ml/min; Potassium 3.9 mmol/L (3.5-5.1)
[2024-02-10 07:48] VITALS: BP 131/88; RESP 17; TEMP 97.3; O2SAT 90
--- NOTE | 2024-02-10 09:33 | Discharge Summary ---
Discharge Summary Date of Service February 10, 2024 Principal Dx & Hospital Course #1 = Principal Diagnosis (1) Fall: Patient with ground level fall resulting in small skin tear above right eye, closed pelvic fractures as above. No anticoagulation but patient is on a daily aspirin. Supportive care. Pain control measures if needed (2) Pelvic fracture: Multiple fractures noted on x-ray. Orthopedic consultation appreciated. No operative intervention at this time. Pain control measures. Weightbearing as tolerated. (3) Fecal retention: Large amount of stool noted in the colon on CT imaging. Patient with no complaints. Continue Dulcolax 10mg ND daily and Miralax daily (4) Diabetes type 2, controlled: ADA diet. Sliding scale coverage as needed. Metformin restarted on February 08. Glucose 110 this morning (5) Seizure disorder: Stable. Continue current medical management (6) COPD (chronic obstructive pulmonary disease): Stable. Continue current medical management (7) : Seroquel was started on February 08 at bedtime and seems to have taken care of the problem. Will continue. Supportive care Plan Discharge to [facility] today, February 09 Admission HPI Per Admitting Provider Jose J Zurita is an 83yo male with history of HTN, COPD, CAD, DM, Seizure and PAF not on anticoagulation presenting from home after a fall. Patient was getting the mail when he slipped on the wet grass and fell onto the ground. He reports hitting his head on the right side. He was able to get up and walk to the home. EMS was called and they checked him out. Later in the day he was unable to get up and walk or bear weight so he again called EMS and was brought to the ER. Patient with some underlying dementia - he is very pleasant, oriented to self, location and situation. He denies additional complaints - specifically chest pain, palpitations, dizziness, syncope. He denies abdominal pain, nausea, vomiting, diarrhea. No headache or visual changes. Discharge Exam General-alert and oriented x3, no fever, no chills HEENT-head atraumatic and normocephalic, pupils equal and reactive to light, extraocular muscles intact Neck-no lymphadenopathy or thyromegaly, trachea midline Chest-clear to auscultation. No rales, wheezing or rhonchi Cardiac-regular rate and rhythm, normal S1 and S2 Abdomen-normal bowel sounds, no hepatosplenomegaly Extremities-no cyanosis, clubbing, or edema Skinlaceration above right eyebrow with hemostasis and no suturing or raciel Neuro-cranial nerves II through XII intact, motor and sensory function within normal limits, strength symmetrical with generalized weakness, no focal deficits Psych-normal affect, normal mood Discharge Plan Discharge Items Patient Disposition: Transfer [facility] Reason For Visit: FALL, AMBULATORY DYSFUNCTION Discharge Diagnosis: Mechanical fall, multiple pelvic fractures, ambulatory dysfunction Activity: Per Instructions section Activity Comment: Weightbearing as tolerated with a walker Non-emergency contact: Primary Care Provider and Surgeon Call non-emergency contact if: your pain is not controlled Follow-up/Referrals: Lorna Tucker DO [Primary Care Provider] - Jennie Tran PA-C [Physician [facility]] - 02/21/24 9:30 am Diet: Carb Consistent or DM2 and Heart Healthy Addtl Attending Provider Instructions: Follow-up with orthopedic surgeon in 4 weeks Addtl Allergist/Md Provider Instructions: Orthopedic Instructions: - Weight-bear as tolerated right lower extremity - Physical therapy and Occupational Therapy as tolerated. - Out of bed with assistance. - Ambulate with walker at all times. - No hip precautions of right hip necessary. - Ice to right hip as needed for pain or swelling. - Pain management as needed. - Call [phone] with any increased pain, need to confirm or change appointment. - Follow-up with [facility] orthopedics in approximately 2 weeks as scheduled. Pending Studies at Discharge: No Stand-Alone Forms: [employer] Skilled Items Patient informed of condition?: Yes DNR: Yes Discharge Level of Care: Skilled Communicable Disease: No Discharge Prognosis: Stable Lines: None Urinary Catheter: No Medications and DC Order Prescriptions: New quetiapine 25 mg Tablet 25 mg PO HS Qty: 10 0RF polyethylene glycol 3350 [Miralax] 17 gram Powder In Packet 17 g PO DAILY Qty: 10 0RF lidocaine 5 % Adhesive Patch,Medicated 1 patch transdermal QAM Qty: 5 0RF oxycodone 5 mg Tablet 5 mg PO Q4H PRN (Reason: pain) Qty: 10 0RF Continued atorvastatin [Lipitor] 40 mg tablet 40 mg PO HS Qty: 90 3RF sertraline 100 mg tablet 100 mg PO QAM Qty: 90 2RF diltiazem HCl 120 mg capsule,extended release 24hr 120 mg PO HS Qty: 90 1RF lisinopril 5 mg tablet 5 mg PO HS Qty: 90 3RF pantoprazole 40 mg tablet,delayed release (DR/EC) 40 mg PO DAILY Qty: 90 2RF montelukast 10 mg tablet 10 mg PO HS Qty: 90 1RF metoprolol tartrate 25 mg tablet 50 mg PO QAM Qty: 90 3RF metformin 850 mg tablet 850 mg PO DAILY Qty: 90 1RF Trelegy Ellipta 100-62.5-25 mcg blister with device 1 inh INHALATION QAM Qty: 180 1RF guaifenesin [Mucinex] 600 mg tablet extended release 12hr 1,200 mg PO Q12 PRN (Reason: cough) levetiracetam [Keppra] 500 mg tablet 1,000 mg PO BID 90 Days Qty: 360 3RF ferrous sulfate 325 mg (65 mg iron) tablet,delayed release (DR/EC) 325 mg PO Q OTHER DAY Qty: 90 2RF cyanocobalamin (vitamin B-12) [Vitamin B-12] 1,000 mcg tablet 1,000 mcg PO QAM aspirin 81 mg Tablet,Delayed Release (Dr/Ec) 81 mg PO QAM levothyroxine 50 mcg tablet 50 mcg PO DAILYBB Discharge Orders: Discharge Order (Routine); Ordered 02/10/24 Ordered By: Darrel Staley Admission Data Admit Date/Time: 02/07/24 21:13 Attending Provider: Darrel Staley Admit Provider: Patricia Dickey Primary Care Provider: Lorna Tucker. Other Providers: Patricia Dickey; Sekou Link; Rigo Jimenes [facility]; [facility] Hospital Stay Data Consultations 02/07/24 20:45 ED Decision to Admit Stat 02/08/24 00:35 Consult Orthopedic Surgery Routine Diagnostic Imagining Performed 02/07/24 17:06 CT cervical spine wo con Stat CT head/brain wo con Stat 02/07/24 19:47 CT pelvis wo con Stat Discharge Instructions Given to Patient (Per Discharging Provider) Follow-up with orthopedic surgeon in 4 weeks Total Time Total Time Spent Total Time Spent (In Minutes): 45 minutes Coding Level of Care Code 45869 INP/OBS DISCH >30 MIN Diagnoses Fall W19.XXXA Pelvic fracture S32.9XXA Fecal retention K59.00 Diabetes type 2, controlled E11.9 Seizure disorder G40.909 COPD (chronic obstructive pulmonary disease) J44.9 F05
[2024-02-10 10:28] VITALS: PULSE 109
== END 2024-02-10 13:16 | DRG 543 ==
LOC: ED 16:49 → SUATTDRO 21:13 → 4W 21:13

== ENCOUNTER 2025-02-24 15:07 | Inpatient (IN) ==
--- NOTE | 2025-02-24 15:19 | Emergency Department Note ---
Impression & Plan Multifocal pneumonia, Sepsis ED Provider Note Provider: Vick Velasquez MD CHIEF COMPLAINT: Weakness, fever HISTORY OF PRESENT ILLNESS: Patient is a 84-year-old gentleman extensive past medical history including COPD, type 2 diabetes, seizures, history of TBI, atrial fibrillation no longer on blood thinners, and dementia/cognitive impairment presenting here today via ambulance from when he lowered his eyes. Patient evidently developed a fever today of 102 Fahrenheit. EMS was called. He has had a bit of a chronic cough. Generally weak. No falls reported. Patient denies pain to me. Denies nausea or abdominal pain. Denies difficulty breathing. Is a former smoker. Received a gram of Tylenol for EMS as well as 250 cc IV fluid. Room air saturation of 89% for EMS was placed a little bit oxygen. Evidently started with some flu symptoms last night. No vomiting reported. PAST MEDICAL HISTORY: As noted above MEDICATIONS: Reviewed medication list from facility SOCIAL HISTORY: , retired PHYSICAL EXAM: GENERAL: alert and oriented to person in no acute distress on stretcher, fatigued in appearance Head: normocephalic and atraumatic EYES: No injection, discharge or icterus. EOMI. NECK: Trachea midline. Supple without midline cervical tenderness ENT: Mucous membranes pink and moist. Pharynx without erythema or exudate. LUNGS: Airway patent. No retractions. Breath sounds clear with good air entry bilaterally. HEART: Regular rate and rhythm. No chest wall tenderness ABDOMEN: Soft and non-tender, without guarding or rebound. No pelvic instability or pain. SKIN: Acyanotic, warm, dry, with some scattered small abrasions in the lower extremities. EXTREMITIES: Without swelling, tenderness or deformity NEUROLOGICAL: No focal deficits. No aphasia. No facial droop or slurred speech. Normal strength and tone in the extremities. Sensation to gross touch normal. EK bpm atrial fibrillation. No acute ST segment elevation with some inferior T wave changes and a QTc of 432. CONTINUOUS CARDIAC MONITORING: was ordered and showed a heart rate of 70s to 90s bpm in atrial fibrillation Patient's laboratory studies and imaging reviewed. Differential includes Infection, dehydration, metabolic abnormality, hypo/hyperglycemia, electrolyte disturbance, anemia, hypoxia, cardiac sources, intracerebral event, toxicologic, neurologic, as well as other pathologies. IMPRESSION/MEDICAL DECISION MAKING: Patient fever prior to arrival increasing weakness question of possible infection/sepsis developing. Reviewed prior history and it is quite extensive. All no falls reported given his generalized weakness will complete a CT of the head as well as CT of the chest abdomen pelvis to exclude intracranial bleed, pneumonia, intra-abdominal pathology, or PE. Blood work and cultures were sent as well as procalcitonin and lactate. Does not seem in distress. Right around 90% on room air. Leukocytosis of 23 without severe anemia. VBG without severe acidosis. Lactate not elevated. Chemistries renal function electrolytes with some slight low magnesium but otherwise not severely abnormal. No troponin elevation. Procalcitonin only 0.12. CT of the head, chest ab and pelvis obtained. Evidence of multifocal pneumonia without PE. Covered with Zosyn for antibiotics. CT head per radiology with some interval increase in a right subdural now 1.4 from 1.1 cm with stable left midline cyst. CT abdomen pelvis per radiology not dissecting AAA at this time. Given 2 L of IV fluid for fluid resuscitation as blood pressures have been in the 90s systolic but lactate not elevated. Reached out discussed the patient's via phone. Report no CPR or intubation. Reports would not want of surgery. They would be okay with medications. Will reach out to [facility] neurosurgery who saw the patient 6 weeks ago after his initial fall and discuss if there is any other interventions. He is not on blood thinners at this time. Likely however given that they do not want for any surgical intervention, do not know that transfer would be helpful for the patient. Discussed with neurology there who reviewed images from 01 08 as well as today. Dissection much improved today compared to previous. They are reassured by this. Do not feel the patient requires admission. Received broad-spectrum Zosyn for antibiotic coverage of his pneumonia. Received 2 L of IV fluid resuscitation. Will plan for admission to the hospital for further care. DIAGNOSIS: Multifocal pneumonia, sepsis, subdural hematoma DISPOSITION: Hospitalist will evaluate Patient was agreeable with this plan. was updated via phone regarding findings of pneumonia. Past Med/Surg History Problem List (Updated 02/24/25 @ 19:19 by Vick Velasquez M.D.) Sepsis (Acute) Multifocal pneumonia (Acute) Ambulatory dysfunction (Acute) Fall (Acute) Closed pelvic fracture (Acute) Sundowning COPD (chronic obstructive pulmonary disease) Pelvic fracture Diabetes type 2, controlled Seizure disorder (01/2019) Confusion Fall (Acute) Microcytic anemia Hypoxia Lumbar contusion (Acute) Head injury (Acute) Fall (Acute) Contusion of scalp (Acute) CHI (closed head injury) (Acute) Acute sinusitis Ambulatory dysfunction (Acute) Periorbital ecchymosis of left eye (Acute) Fracture of maxillary sinus (Acute) Closed fracture nasal bone (Acute) Elevated serum lactate dehydrogenase (Acute) Weakness (Acute) Acute respiratory failure with hypoxia Acute head trauma (Acute) Hypomagnesemia (Acute) Hematuria Fecal retention Hypoxia (Acute) Iron deficiency anemia Multiple pulmonary nodules Ex-smoker History of basal cell carcinoma (BCC) of skin (05/2020) Cerebral cavernoma (Chronic) Chronic pulmonary aspiration Tremor HANDS V tach Atelectasis 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 Vitamin D deficiency (Chronic) Tubular adenoma of colon (Chronic) Tinnitus of both ears (Chronic) Chronic rhinitis (Chronic) Anosmia Arteriosclerotic coronary artery disease (Chronic) Depression (Chronic) Dyslipidemia (Chronic) Mild cognitive impairment (Chronic) Osteoporosis (Chronic) Asthma (Chronic) TIA (transient ischemic attack) 2017 X 1 AND NONE SINCE Medical History Dementia Pneumonia HTN (hypertension), benign Fall from standing Fall Vomiting Tobacco use disorder Vomiting COPD (chronic obstructive pulmonary disease) SOB (shortness of breath) Fever Chewing tobacco use Hypoxia Pneumonia History of sinusitis History of acute bronchitis with bronchospasm Osteoarthritis Anxiety CAD (coronary artery disease) Seizure 01/29/19 - X2 ON THAT DAY AND WAS ADMITTED AND STARTED ON [place] AND NO SEIZURE SINCE Abdominal aortic aneurysm (AAA), 30-34 mm diameter Benign prostatic hyperplasia with urinary obstruction Hypertension Hypothyroidism (acquired) Type 2 diabetes mellitus Vitamin B12 deficiency Paroxysmal atrial fibrillation DX [address] [place]UELLAR IN [place] Atrial flutter DX [address] CUELLAR IN [place] Surgical History Presence of Watchman left atrial appendage closure device (06/24/22) S/P Mohs surgery for basal cell carcinoma History of colonoscopy History of lung biopsy (03/27/19) Navigational Bronchoscopy with ICG Dye, Robotic Right Video Assisted Thoracoscopy with Right Lower Lobe Wedge Resection with Mediastinal Lymphadenectomy and Lymph Node Biopsy Dr. Lynn 03/27/19 Hx of cardiac cath 2017 -- HEART CATH WITH STENT 6 TOTAL [facility] WITH DR CUELLAR LAST SEEN 12/20/2018 History of anesthesia reaction states "stopped breathing during MOHS procedure at the [facility] H/O 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 Family History Father Heart disease Other COPD (chronic obstructive pulmonary disease) Depression Family history non-contributory Denies family history of Ovarian cancer Prostate cancer Coronary heart disease Myocardial infarction Breast cancer Seizure Lung cancer Colorectal cancer Social History Smoking Status: Former smoker Tobacco Type: Cigarettes Age Started Using Tobacco: 18; Age Quit Using Tobacco: 33; packs per day: 2; Cigarettes Per Day: 20-40; Second Hand Exposure: No; Do You Dip or Chew Tobacco: Yes; Hx Alcohol Use: No Hx Substance Use: No Preferred Language: Frisian Communication Ability: Impaired Visual Impairment: No Limitations Hearing Ability: Use of Hearing Aid Membership Counselor Required: No Beliefs That Will Affect Care: None marital status: Current Living Situation: Spouse Current Living Situation Comment: in house with current occupational status: retired 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, 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[employer] How many Children do You have: 3 Feels Safe at Home: Yes Childhood Exposure to Second-Hand Smoke: Yes Diet: regular Diet Comment: regular caffeine: No during the past year weight has: remained stable Dental Care, Regularly: No Physical Activity Frequency: Does not Exercise Seatbelt Use: never Sunscreen Use: Yes Assistive Devices: Cane and Walker Allergies Allergies Allergy/AdvReac Type Severity Reaction Status Date / Time pollen extracts Allergy Mild CONGESTION Verified 01/07/25 23:07 Home Meds Home Medications Medication Instructions Recorded Confirmed cyanocobalamin (vitamin B-12) 1,000 mcg PO QAM 11/07/19 02/24/25 1,000 mcg tablet (Vitamin B-12) levothyroxine 50 mcg tablet 50 mcg PO DAILYBB 01/25/24 02/24/25 acetaminophen 325 mg tablet 650 mg PO Q4 PRN MILD TO SEVERE 01/07/25 02/24/25 PAIN acetaminophen 325 mg tablet 650 mg PO Q4 PRN TEMP > 100 01/07/25 02/24/25 gabapentin 100 mg capsule 200 mg PO TID 01/07/25 02/24/25 guaifenesin 100 mg/5 mL oral syrup 200 mg PO Q4H PRN Cough 01/07/25 02/24/25 ipratropium 0.5 mg-albuterol 3 mg 3 ml inhalation Q4 PRN Shortness 01/07/25 02/24/25 (2.5 mg base)/3 mL nebulization Of Breath Or Wheezing soln levetiracetam 500 mg tablet 1,000 mg PO AMHS 01/07/25 02/24/25 (Keppra) medroxyprogesterone 5 mg tablet 5 mg PO QAM 01/07/25 02/24/25 melatonin 5 mg tablet 5 mg PO HS 01/07/25 02/24/25 metformin 500 mg tablet 500 mg PO QDB 01/07/25 02/24/25 metoprolol tartrate 25 mg tablet 25 mg PO QAM 01/07/25 02/24/25 pantoprazole 20 mg tablet,delayed 20 mg PO QAM 01/07/25 02/24/25 release sennosides 8.6 mg-docusate sodium 1 tab-cap PO BID 01/07/25 02/24/25 50 mg tablet (Stimulant Laxative Plus) sertraline 100 mg tablet 100 mg PO BID 01/07/25 02/24/25 sodium chloride 0.65 % nasal spray 1 spray intranasal TID 01/07/25 02/24/25 aerosol ([place] Saline) Previous Rx's Medication Instructions Recorded atorvastatin 40 mg tablet (Lipitor) 40 mg PO HS #90 tabs 05/31/23 ferrous sulfate 325 mg (65 mg 325 mg PO Q OTHER DAY #90 tabs 11/06/23 iron) tablet,delayed release montelukast 10 mg tablet 10 mg PO HS #90 tabs 12/19/23 fluticasone fur. 100 mcg-umeclid 1 inh inhalation QAM #180 ea 01/22/24 62.5 mcg-vilant 25 mcg inhalat.powder (Trelegy Ellipta) Results & Data (ED) Vital Signs Vital Signs - 24 hr 02/24/25 15:35 02/24/25 15:43 02/24/25 16:21 Temperature 37.3 C Temperature Source Oral Pulse Rate 94 H 90 99 H Pulse Rate [Left Apical] Respiratory Rate 23 21 Respiratory Effort / Characteristics Spontaneous Short of Breath Respiratory Depth Normal Respiratory Pattern Regular Blood Pressure 116/76 Blood Pressure [Right Arm] Blood Pressure Mean 89 Blood Pressure Mean [Right Arm] Pulse Oximetry 92 90 Oxygen Delivery Method Room Air Room Air Sepsis Recent Fever Within 48 Hours Yes Sepsis New/Unexplained Change in Mental Status No Sepsis Action Taken by Nursing No Action Required 02/24/25 16:37 02/24/25 17:00 02/24/25 17:06 Temperature Temperature Source Pulse Rate 86 84 Pulse Rate [Left Apical] Respiratory Rate 23 21 Respiratory Effort / Characteristics Respiratory Depth Respiratory Pattern Blood Pressure 95/52 L 86/59 L Blood Pressure [Right Arm] Blood Pressure Mean 74 62 Blood Pressure Mean [Right Arm] Pulse Oximetry 90 90 Oxygen Delivery Method Room Air Room Air Sepsis Recent Fever Within 48 Hours Sepsis New/Unexplained Change in Mental Status Sepsis Action Taken by Nursing 02/24/25 17:19 02/24/25 17:36 02/24/25 18:24 Temperature Temperature Source Pulse Rate 84 70 Pulse Rate [Left Apical] 85 Respiratory Rate 20 20 17 Respiratory Effort / Characteristics Spontaneous Short of Breath Respiratory Depth Normal Respiratory Pattern Regular Blood Pressure 84/61 L Blood Pressure [Right Arm] 91/60 L Blood Pressure Mean 68 Blood Pressure Mean [Right Arm] 70 Pulse Oximetry 92 90 93 Oxygen Delivery Method Room Air Room Air Room Air Sepsis Recent Fever Within 48 Hours Sepsis New/Unexplained Change in Mental Status Sepsis Action Taken by Nursing 02/24/25 18:30 02/24/25 19:53 02/24/25 19:57 Temperature Temperature Source Pulse Rate 71 88 Pulse Rate [Left Apical] Respiratory Rate 20 Respiratory Effort / Characteristics Respiratory Depth Respiratory Pattern Blood Pressure 98/62 L Blood Pressure [Right Arm] 98/56 L Blood Pressure Mean 74 Blood Pressure Mean [Right Arm] 70 Pulse Oximetry 92 Oxygen Delivery Method Sepsis Recent Fever Within 48 Hours Sepsis New/Unexplained Change in Mental Status Sepsis Action Taken by Nursing Laboratory Data 02/24/25 15:29 02/24/25 15:29 Lab Results 02/24/25 02/24/25 02/24/25 Range/Units 15:29 15:35 15:39 WBC 23.61 H (4.8-10.8) K/ul RBC 4.54 L (4.70-6.10) M/uL Hgb 13.4 L (14.0-18.0) g/dl POC Hgb 15.0 (14.0-18.0) g/dl Hct 41.2 L (42.0-52.0) % POC Hct 44 (42-52) % MCV 90.7 (80.0-100.0) fL MCH 29.5 (25.0-34.0) pg MCHC 32.5 (32.0-36.0) g/dL RDW Std Deviation 55.4 H (36.4-46.3) fL RDW Coeff of Ashu 16.9 H (11.5-14.5) % Plt Count 193 (130-400) K/uL MPV 10.6 (9.4-12.4) fL Immature Gran % (Auto) 0.5 % Neut % (Auto) 92.3 % Lymph % (Auto) 3.5 % Garza % (Auto) 3.4 % Eos % (Auto) 0.1 % Baso % (Auto) 0.2 % Neut # (Auto) 21.77 H (1.40-6.50) K/uL Lymph # (Auto) 0.83 L (1.20-3.40) K/uL Garza # (Auto) 0.81 H (0.11-0.59) K/uL Eos # (Auto) 0.03 (0.00-0.50) K/uL Baso # (Auto) 0.05 (0.00-0.20) K/uL Immature Gran # (Auto) 0.12 (0.01-0.20) K/uL Toxic Vacuolation 2+ PT 11.5 (9.0-12.0) Seconds INR 1.1 (0.9-1.1) VBG pH 7.44 H (7.36-7.41) VBG pCO2 38 (38-50) mmHg VBG pO2 44 mmHg VBG HCO3 26 mmol/L VBG O2 Saturation 78.4 % VBG Base Excess 1.7 mEq/L POC Sodium 137 (135-144) mmol/L Sodium 134 L (136-145) mmol/L POC Potassium 4.4 (3.3-5.0) mmol/L Potassium 4.3 (3.5-5.1) mmol/L POC Chloride 103 (101-112) mmol/L Chloride 102 (98-107) mmol/L Carbon Dioxide 24 (21-32) mmol/L POC Total CO2 23 L (24-31) mmol/L Anion Gap 8 (3-11) POC Anion Gap 17.0 (16-25) mmol/L POC BUN 23 H (7-18) mg/dl BUN 24 H (6-23) mg/dl Creatinine 1.00 (0.6-1.4) mg/dl POC Creatinine 1.0 (0.6-1.3) mg/dl Est Cr Clr Drug Dosing 47.7 ml/min eGFR 74.68 BUN/Creatinine Ratio 24.0 H (10-20) Glucose 142 H (70-99(Fasting)) mg/dl POC Glucose (other) 142 H (70-99) mg/dl Lactate 1.5 (0.4-2.0) mmol/L Calcium 9.3 (8.6-10.3) mg/dl POC Ioniz Calcium Bhaskar 1.12 (1.12-1.32) mmol/l Magnesium 1.5 L (1.7-2.4) mg/dl Total Bilirubin 0.5 (0.2-1.0) mg/dl AST 22 (13-39) U/L ALT 17 (7-52) U/L Alkaline Phosphatase 84 (34-104) U/L Troponin I High Sens 9.5 (0-20) pg/ml Total Protein 7.9 (6.0-8.3) gm/dl Albumin 3.7 (3.4-5.0) gm/dl Globulin 4.2 H (2.5-4.0) gm/dl Albumin/Globulin Ratio 0.9 (0.9-2) Procalcitonin 0.12 (0-0.5) ng/ml TSH 2.673 (0.300-4.500) uIu/ml Urine Color Urine Appearance (Clear) Urine pH (4.5-7.5) Ur Specific [place] (1.000-1.030) Urine Protein (Negative) Urine Glucose (UA) (Negative) Urine Ketones (Negative) Urine Blood (Negative) Urine Nitrite (Negative) Urine Bilirubin (Negative) Urine Urobilinogen (Negative) Ur Leukocyte Esterase (Negative) Urine WBC (Auto) (0-5) /hpf Urine RBC (Auto) (0-2) /hpf U Hyaline Cast (Auto) (0-2) /lpf U Epithel Cells (Auto) (0-2) /hpf Urine Bacteria (Auto) (None Seen) Urine Comment Adenovirus (PCR) Not Detected (NotDetected) B. pertussis DNA (PCR) Not Detected (NotDetected) B.parapertussis DNA PCR Not Detected (NotDetected) C. pneumoniae DNA (PCR) Not Detected (NotDetected) Coronavirus OC43 (PCR) Not Detected (NotDetected) Coronavirus HKU1 (PCR) Not Detected (NotDetected) Coronavirus 229E (PCR) Not Detected (NotDetected) SARS-CoV-2 (PCR) Not Detected (NotDetected) Coronavirus NL63 (PCR) Not Detected (NotDetected) Human Metapneumovir PCR Not Detected (NotDetected) Influenza Type A (PCR) Not Detected (NotDetected) Influenza Type B (PCR) Not Detected (NotDetected) M. pneumoniae (PCR) Not Detected (NotDetected) Parainfluenza 1 (PCR) Not Detected (NotDetected) Parainfluenza 2 (PCR) Not Detected (NotDetected) Parainfluenza 3 (PCR) Not Detected (NotDetected) Parainfluenza 4 (PCR) Not Detected (NotDetected) RSV (PCR) Not Detected (NotDetected) Entero/Rhino (PCR) Not Detected (NotDetected) 02/24/25 Range/Units 16:51 WBC (4.8-10.8) K/ul RBC (4.70-6.10) M/uL Hgb (14.0-18.0) g/dl POC Hgb (14.0-18.0) g/dl Hct (42.0-52.0) % POC Hct (42-52) % MCV (80.0-100.0) fL MCH (25.0-34.0) pg MCHC (32.0-36.0) g/dL RDW Std Deviation (36.4-46.3) fL RDW Coeff of Ashu (11.5-14.5) % Plt Count (130-400) K/uL MPV (9.4-12.4) fL Immature Gran % (Auto) % Neut % (Auto) % Lymph % (Auto) % Garza % (Auto) % Eos % (Auto) % Baso % (Auto) % Neut # (Auto) (1.40-6.50) K/uL Lymph # (Auto) (1.20-3.40) K/uL Garza # (Auto) (0.11-0.59) K/uL Eos # (Auto) (0.00-0.50) K/uL Baso # (Auto) (0.00-0.20) K/uL Immature Gran # (Auto) (0.01-0.20) K/uL Toxic Vacuolation PT (9.0-12.0) Seconds INR (0.9-1.1) VBG pH (7.36-7.41) VBG pCO2 (38-50) mmHg VBG pO2 mmHg VBG HCO3 mmol/L VBG O2 Saturation % VBG Base Excess mEq/L POC Sodium (135-144) mmol/L Sodium (136-145) mmol/L POC Potassium (3.3-5.0) mmol/L Potassium (3.5-5.1) mmol/L POC Chloride (101-112) mmol/L Chloride (98-107) mmol/L Carbon Dioxide (21-32) mmol/L POC Total CO2 (24-31) mmol/L Anion Gap (3-11) POC Anion Gap (16-25) mmol/L POC BUN (7-18) mg/dl BUN (6-23) mg/dl Creatinine (0.6-1.4) mg/dl POC Creatinine (0.6-1.3) mg/dl Est Cr Clr Drug Dosing ml/min eGFR BUN/Creatinine Ratio (10-20) Glucose (70-99(Fasting)) mg/dl POC Glucose (other) (70-99) mg/dl Lactate (0.4-2.0) mmol/L Calcium (8.6-10.3) mg/dl POC Ioniz Calcium Bhaskar (1.12-1.32) mmol/l Magnesium (1.7-2.4) mg/dl Total Bilirubin (0.2-1.0) mg/dl AST (13-39) U/L ALT (7-52) U/L Alkaline Phosphatase (34-104) U/L Troponin I High Sens (0-20) pg/ml Total Protein (6.0-8.3) gm/dl Albumin (3.4-5.0) gm/dl Globulin (2.5-4.0) gm/dl Albumin/Globulin Ratio (0.9-2) Procalcitonin (0-0.5) ng/ml TSH (0.300-4.500) uIu/ml Urine Color Yellow Urine Appearance Clear (Clear) Urine pH 7.5 (4.5-7.5) Ur Specific [place] 1.020 (1.000-1.030) Urine Protein 2+ H (Negative) Urine Glucose (UA) Negative (Negative) Urine Ketones Negative (Negative) Urine Blood Negative (Negative) Urine Nitrite Negative (Negative) Urine Bilirubin Negative (Negative) Urine Urobilinogen Negative (Negative) Ur Leukocyte Esterase Negative (Negative) Urine WBC (Auto) 6-10 H (0-5) /hpf Urine RBC (Auto) 0-2 (0-2) /hpf U Hyaline Cast (Auto) 0-2 (0-2) /lpf U Epithel Cells (Auto) 0-2 (0-2) /hpf Urine Bacteria (Auto) None Seen (None Seen) Urine Comment Adenovirus (PCR) (NotDetected) B. pertussis DNA (PCR) (NotDetected) B.parapertussis DNA PCR (NotDetected) C. pneumoniae DNA (PCR) (NotDetected) Coronavirus OC43 (PCR) (NotDetected) Coronavirus HKU1 (PCR) (NotDetected) Coronavirus 229E (PCR) (NotDetected) SARS-CoV-2 (PCR) (NotDetected) Coronavirus NL63 (PCR) (NotDetected) Human Metapneumovir PCR (NotDetected) Influenza Type A (PCR) (NotDetected) Influenza Type B (PCR) (NotDetected) M. pneumoniae (PCR) (NotDetected) Parainfluenza 1 (PCR) (NotDetected) Parainfluenza 2 (PCR) (NotDetected) Parainfluenza 3 (PCR) (NotDetected) Parainfluenza 4 (PCR) (NotDetected) RSV (PCR) (NotDetected) Entero/Rhino (PCR) (NotDetected) Administered Medications Magnesium Sulfate/Dextrose (Magnesium Sulfate / D5w) 1 gm in 100 mls @ 50 mls/hr IV Q2H PATO Stop: 02/25/25 00:14 Last Admin: 02/24/25 21:46 Dose: 50 mls/hr Documented By: W Fluconazole (Diflucan) 100 mg in 50 mls @ 100 mls/hr IV Q24H [facility] Stop: 03/06/25 20:59 Last Infusion: 02/24/25 22:27 Dose: Infused Documented By: Admin: 02/24/25 21:52 Dose: 100 mls/hr Documented By: W Insulin Aspart (Insulin Aspart Per Unit Charge) 0 units SC ACHS PATO Stop: 03/26/25 21:29 Last Admin: 02/24/25 22:21 Dose: Not Given Documented By: W Co-signed By: RES Discontinued Medications Piperacillin Sod/Tazobactam Sod (Zosyn) 4.5 gm in 100 mls @ 200 mls/hr IV NOW ONE; Protocol Stop: 02/24/25 16:17 Last Infusion: 02/24/25 18:45 Dose: Infused Documented By: [facility] Admin: 02/24/25 17:14 Dose: 200 mls/hr Documented By: [facility] Sodium Chloride (Nss) 500 mls @ 999 mls/hr IV .Q31M ONE Stop: 02/24/25 16:48 Last Infusion: 02/24/25 17:17 Dose: Infused Documented By: [facility] Admin: 02/24/25 16:57 Dose: 999 mls/hr Documented By: [facility] Sodium Chloride (Nss) 1,000 mls @ 999 mls/hr IV .Q1H1M ONE Stop: 02/24/25 18:27 Last Infusion: 02/24/25 18:46 Dose: Infused Documented By: [facility] Admin: 02/24/25 17:32 Dose: 999 mls/hr Documented By: [facility] Sodium Chloride (Nss) 500 mls @ 999 mls/hr IV .Q31M ONE Stop: 02/24/25 18:16 Last Infusion: 02/24/25 18:46 Dose: Infused Documented By: [facility] Admin: 02/24/25 18:12 Dose: 999 mls/hr Documented By: SCAlly Ioversol (Optiray 320 125ml) 119 ml IV ONCE ONE Stop: 02/24/25 16:18 Last Admin: 02/24/25 16:19 Dose: 119 ml Documented By: PLW Imaging Data Radiologist's Impression: Abdomen/Pelvis CT 02/24/25 15:13 Exam(s): CT ABDOMEN + PELVIS With Contrast IV Amt: 119 ml optiray 320 EXAM: CT Abdomen and Pelvis With Intravenous Contrast CLINICAL HISTORY: Weakness and Fever TECHNIQUE: Axial computed tomography images of the abdomen and pelvis with intravenous contrast. CTDI is 17.87 mGy and DLP is 916.65 mGy-cm. Automated exposure control was utilized for the study. A dose lowering technique was utilized adhering to the principles of ALARA. CONTRAST: Patient received 119 ml optiray 320 of IV contrast COMPARISON: CT chest 08/25/2021. FINDINGS: Lung bases: Left lower lobe pneumonia. ABDOMEN: Liver: Unremarkable. No mass. Gallbladder and bile ducts: Cholelithiasis. No ductal dilation. Pancreas: There is a 2.7 cm pancreatic cyst of the uncinate process. No mass. No ductal dilation. Spleen: Unremarkable. No splenomegaly. Adrenals: Stable right adrenal adenoma, no follow-up is needed. The left adrenal gland is unremarkable. Kidneys and ureters: Unremarkable. No solid mass. No hydronephrosis. Stomach and bowel: Diverticulosis. No obstruction. No mucosal thickening. PELVIS: Appendix: No findings to suggest acute appendicitis. Bladder: Unremarkable. No mass. Reproductive: Nonspecific prostate gland enlargement. ABDOMEN and PELVIS: Intraperitoneal space: Unremarkable. No free air. No significant fluid collection. Bones/joints: There are degenerative changes of the spine. No acute fracture. No dislocation. Soft tissues: Unremarkable. Vasculature: Abdominal aortic aneurysm measuring 3.5 cm in maximum diameter. Lymph nodes: Unremarkable. No enlarged lymph nodes. IMPRESSION: 1. Abdominal aortic aneurysm measuring 3.5 cm in maximum diameter. Mural plaque is noted without significant narrowing of the lumen. Recommend abdomen/pelvis CT or MR imaging follow-up in 2 years. 2. There is a 2.7 cm pancreatic cyst of the uncinate process. Recommend a contrast-enhanced, pancreas-protocol abdominal CT or MR in 2 years. 3. Cholelithiasis. 4. Diverticulosis. 5. Nonspecific prostate gland enlargement. Electronically signed by: Kendal Campbell MD 02/24/25 17:14 PM Chest CTA 02/24/25 15:13 Exam(s): CTA CHEST IV Amt: 119 ml optiray 320 EXAM: CT Angiography Chest With Intravenous Contrast CLINICAL HISTORY: Cough , Fever and weakness TECHNIQUE: Axial computed tomographic angiography images of the chest with intravenous contrast. MIPS images were created and reviewed. CTDI is 40. 66 mGy and DLP is 705.95 mGy-cm. Automated exposure control was utilized for the study. A dose lowering technique was utilized adhering to the principles of ALARA. MIP reconstructed images were created and reviewed. COMPARISON: CT chest 09/02/2021 FINDINGS: Pulmonary arteries: Dilated main pulmonary artery measuring 3.1 cm. No pulmonary embolus. Aorta: No acute findings. No thoracic aortic aneurysm. Lungs: Airspace opacities of the right lower lobe and to a lesser degree lingula and right upper lobe are concerning for atypical infection and/or aspiration. Pleural space: Unremarkable. No significant effusion. No pneumothorax. Heart: A mitral valve replacement is noted. Dense coronary artery calcifications are present. No cardiomegaly. No significant pericardial effusion. No evidence of RV dysfunction. Bones/joints: There are bilateral chronic rib fractures. There are degenerative changes of the spine. No acute fracture. No dislocation. Soft tissues: Asymmetric right breast mass measuring 4.2 cm. There is a 2.2 cm lesion underlying the dermis of the left axilla likely representing an epidermal inclusion cyst. Lymph nodes: Unremarkable. No enlarged lymph nodes. Adrenals: Stable 1.6 cm right adrenal adenoma. IMPRESSION: 1. No pulmonary embolus. 2. Airspace opacities of the right lower lobe and to a lesser degree lingula and right upper lobe are concerning for atypical infection and/or aspiration. 3. There is dilation of the pulmonary arteries. This is concerning for pulmonary artery hypertension. 4. Dense coronary artery calcifications are present. Consider cardiology referral. 5. Asymmetric right breast mass measuring 4.2 cm. This is stable since 2021, and as such considered benign. 6. Stable 1.6 cm right adrenal adenoma. Electronically signed by: Kendal Campbell MD 02/24/25 17:11 PM Chest X-Ray 02/24/25 15:13 XR chest 1V portable HISTORY: 84 years-old Male weakness acute weakness COMPARISON: 01/07/2025 TECHNIQUE: AP view of the FINDINGS: Right axilla is mildly enlarged. Coronary arterial stents are present. Atherosclerosis of the aorta. No pneumothorax or large pleural effusion. Mild patchy left basilar opacities. Degenerative changes of the shoulders and spine. Chronic left rib fractures. IMPRESSION: Mild patchy left basilar opacities may represent atelectasis versus pneumonia. ACT 112: Negative or not required by law. The above report was generated using voice recognition software. It may contain grammatical, syntax or spelling errors. Electronically signed by: Bulmaro Deluca M.D. 02/24/2025 3:[address] 02/24/25 15:14 CR Exam(s): CT HEAD Without Contrast EXAM: CT Head Without Intravenous Contrast CLINICAL HISTORY: Weakness TECHNIQUE: Axial computed tomography images of the head/brain without intravenous contrast. CTDI is 36.05 mGy and DLP is 624.41 mGy-cm. Automated exposure control was utilized for the study. A dose lowering technique was utilized adhering to the principles of ALARA. COMPARISON: CT head 01/07/2025 FINDINGS: Brain: Interval increase in size of the right subdural hematoma now measuring up to 1.4 cm previously measuring 1.1 cm. Redemonstrated encephalomalacia of the left cerebellum. Mild periventricular white matter hypodensities are most consistent with chronic microangiopathy. Midline shift: Stable minimal leftward midline shift. Ventricles: There is partial effacement of the right lateral ventricle without evidence of entrapment. Bones/joints: Unremarkable. No acute fracture. Soft tissues: Unremarkable. Sinuses: Significant mucosal thickening of the paranasal sinuses is noted. Mastoid air cells: Unremarkable as visualized. No mastoid effusion. IMPRESSION: 1. Interval increase in size of the right subdural hematoma now measuring up to 1.4 cm previously measuring 1.1 cm. 2. Stable minimal leftward midline shift. 3. There is partial effacement of the right lateral ventricle without evidence of entrapment. Communications: Verify Receipt Electronically signed by: Kendal Campbell MD 02/24/25 17:07 PM Discharge Plan Visit Data Chief Complaint: Fever Stated Complaint: ILLNESS ED Provider: Vick Velasquez Discharge Problem: Multifocal pneumonia, Sepsis Patient Disposition: Admitted As Inpatient Condition: Serious Discharge Instructions Interventions: ED Discharge Assessment Last Done: 02/24/25 21:37
[2025-02-24 15:40] LABS: Base Excess VBG 1.7 mEq/L; HCO3 VBG 26 mmol/L; Oxygen Saturation VBG 78.4 %; PCO2 VBG 38 mmHg (38-50); PO2 VBG 44 mmHg; pH VBG 7.44 (7.36-7.41)
[2025-02-24 15:44] LABS: Hematocrit (blood only) 41.2 % (42.0-52.0); Hemoglobin 13.4 g/dl (14.0-18.0); Mean Corpuscular Hemoglobin 29.5 pg (25.0-34.0); Mean Corpuscular Volume 90.7 fL (80.0-100.0); Platelet Count 193 K/uL (130-400); RDW Standard Deviation 55.4 fL (36.4-46.3); Red Blood Count 4.54 M/uL (4.70-6.10); White Blood Count 23.61 K/ul (4.8-10.8)
--- NOTE | 2025-02-24 15:54 | XRay Report ---
XR chest 1V portable HISTORY: 84 years-old Male weakness acute weakness COMPARISON: 01/07/2025 TECHNIQUE: AP view of the FINDINGS: Right axilla is mildly enlarged. Coronary arterial stents are present. Atherosclerosis of the aorta. No pneumothorax or large pleural effusion. Mild patchy left basilar opacities. Degenerative changes o f the shoulders and spine. Chronic left rib fractures. IMPRESSION: Mild patchy left basilar opacities may represent atelectasis versus pneumonia. ACT 112: Negative or not required by law. The above report was generated using voice recognition software. It may contain grammatical, syntax o r spelling errors. Electronically signed by: Bulmaro Deluca M.D. 02/24/2025 3:53 PM
[2025-02-24 16:02] LABS: Alanine Aminotransferase 17.0 U/L (7-52); Albumin Globulin Ratio 0.9 (0.9-2); Albumin Level 3.7 gm/dl (3.4-5.0); Alkaline Phosphatase 84.0 U/L (34-104); Anion Gap 8.0 (3-11); Bilirubin,Total 0.5 mg/dl (0.2-1.0); Blood Urea Nitrogen 24.0 mg/dl (6-23); Calcium 9.3 mg/dl (8.6-10.3); Carbon Dioxide 24.0 mmol/L (21-32); Chloride 102.0 mmol/L (98-107); Creatinine Clr Calc Pharmacy 47.7 ml/min; Globulin 4.2 gm/dl (2.5-4.0); Glucose 142.0 mg/dl (70-99(Fasting)); Magnesium 1.5 mg/dl (1.7-2.4); Potassium 4.3 mmol/L (3.5-5.1); Sodium 134.0 mmol/L (136-145); Total Protein 7.9 gm/dl (6.0-8.3)
[2025-02-24 16:12] LABS: INR 1.1 (0.9-1.1); Prothrombin Time 11.5 Seconds (9.0-12.0)
[2025-02-24 16:17] LABS: Immature Granulocytes # (auto) 0.12 K/uL (0.01-0.20); Immature Granulocytes % (auto) 0.5 %; Toxic Vacuolation 2+
[2025-02-24 16:18] LABS: Thyroid Stimulating Hormone 2.673 uIu/ml (0.300-4.500)
[2025-02-24] MEDS: OPTIRAY 320 125ml IV ONE (16:19)
[2025-02-24] MEDS: SODIUM CHLORIDE 0.9% 500 ML IV ONE ×2 (16:57→18:12)
--- NOTE | 2025-02-24 17:07 | CT Scan Report ---
Exam(s): CT HEAD Without Contrast EXAM: CT Head Without Intravenous Contrast CLINICAL HISTORY: Weakness TECHNIQUE: Axial computed tomography images of the head/brain without intravenous contrast. CTDI is 36.05 mGy and DLP is 624.41 mGy-cm. Automated exposure control was utilized for the study. A dose lowering technique was utilized adhering to the principles of ALARA. COMPARISON: CT head 01/07/2025 FINDINGS: Brain: Interval increase in size of the right subdural hematoma now measuring up to 1.4 cm previously measuring 1.1 cm. Redemonstrated encephalomalacia of the left cerebellum. Mild periventricular white matter hypodensities are most consistent with chronic microangiopathy. Midline shift: Stable minimal leftward midline shift. Ventricles: There is partial effacement of the right lateral ventricle without evidence of entrapment. Bones/joints: Unremarkable. No acute fracture. Soft tissues: Unremarkable. Sinuses: Significant mucosal thickening of the paranasal sinuses is noted. Mastoid air cells: Unremarkable as visualized. No mastoid effusion. IMPRESSION: 1. Interval increase in size of the right subdural hematoma now measuring up to 1.4 cm previously measuring 1.1 cm. 2. Stable minimal leftward midline shift. 3. There is partial effacement of the right lateral ventricle without evidence of entrapment. Communications: Verify Receipt Electronically signed by: Kendal Campbell MD 02/24/25 17:07 PM
--- NOTE | 2025-02-24 17:12 | CT Scan Report ---
Exam(s): CTA CHEST IV Amt: 119 ml optiray 320 EXAM: CT Angiography Chest With Intravenous Contrast CLINICAL HISTORY: Cough , Fever and weakness TECHNIQUE: Axial computed tomographic angiography images of the chest with intravenous contrast. MIPS images were created and reviewed. CTDI is 40. 66 mGy and DLP is 705.95 mGy-cm. Automated exposure control was utilized for the study. A dose lowering technique was utilized adhering to the principles of ALARA. MIP reconstructed images were created and reviewed. COMPARISON: CT chest 09/02/2021 FINDINGS: Pulmonary arteries: Dilated main pulmonary artery measuring 3.1 cm. No pulmonary embolus. Aorta: No acute findings. No thoracic aortic aneurysm. Lungs: Airspace opacities of the right lower lobe and to a lesser degree lingula and right upper lobe are concerning for atypical infection and/or aspiration. Pleural space: Unremarkable. No significant effusion. No pneumothorax. Heart: A mitral valve replacement is noted. Dense coronary artery calcifications are present. No cardiomegaly. No significant pericardial effusion. No evidence of RV dysfunction. Bones/joints: There are bilateral chronic rib fractures. There are degenerative changes of the spine. No acute fracture. No dislocation. Soft tissues: Asymmetric right breast mass measuring 4.2 cm. There is a 2.2 cm lesion underlying the dermis of the left axilla likely representing an epidermal inclusion cyst. Lymph nodes: Unremarkable. No enlarged lymph nodes. Adrenals: Stable 1.6 cm right adrenal adenoma. IMPRESSION: 1. No pulmonary embolus. 2. Airspace opacities of the right lower lobe and to a lesser degree lingula and right upper lobe are concerning for atypical infection and/or aspiration. 3. There is dilation of the pulmonary arteries. This is concerning for pulmonary artery hypertension. 4. Dense coronary artery calcifications are present. Consider cardiology referral. 5. Asymmetric right breast mass measuring 4.2 cm. This is stable since 2021, and as such considered benign. 6. Stable 1.6 cm right adrenal adenoma. Electronically signed by: Kendal Campbell MD 02/24/25 17:11 PM
[2025-02-24] MEDS: PIPERACILLIN/TAZOBACTAM 4.5 GM/100 ML BAG IV ONE (17:14)
--- NOTE | 2025-02-24 17:15 | CT Scan Report ---
Exam(s): CT ABDOMEN + PELVIS With Contrast IV Amt: 119 ml optiray 320 EXAM: CT Abdomen and Pelvis With Intravenous Contrast CLINICAL HISTORY: Weakness and Fever TECHNIQUE: Axial computed tomography images of the abdomen and pelvis with intravenous contrast. CTDI is 17.87 mGy and DLP is 916.65 mGy-cm. Automated exposure control was utilized for the study. A dose lowering technique was utilized adhering to the principles of ALARA. CONTRAST: Patient received 119 ml optiray 320 of IV contrast COMPARISON: CT chest 08/25/2021. FINDINGS: Lung bases: Left lower lobe pneumonia. ABDOMEN: Liver: Unremarkable. No mass. Gallbladder and bile ducts: Cholelithiasis. No ductal dilation. Pancreas: There is a 2.7 cm pancreatic cyst of the uncinate process. No mass. No ductal dilation. Spleen: Unremarkable. No splenomegaly. Adrenals: Stable right adrenal adenoma, no follow-up is needed. The left adrenal gland is unremarkable. Kidneys and ureters: Unremarkable. No solid mass. No hydronephrosis. Stomach and bowel: Diverticulosis. No obstruction. No mucosal thickening. PELVIS: Appendix: No findings to suggest acute appendicitis. Bladder: Unremarkable. No mass. Reproductive: Nonspecific prostate gland enlargement. ABDOMEN and PELVIS: Intraperitoneal space: Unremarkable. No free air. No significant fluid collection. Bones/joints: There are degenerative changes of the spine. No acute fracture. No dislocation. Soft tissues: Unremarkable. Vasculature: Abdominal aortic aneurysm measuring 3.5 cm in maximum diameter. Lymph nodes: Unremarkable. No enlarged lymph nodes. IMPRESSION: 1. Abdominal aortic aneurysm measuring 3.5 cm in maximum diameter. Mural plaque is noted without significant narrowing of the lumen. Recommend abdomen/pelvis CT or MR imaging follow-up in 2 years. 2. There is a 2.7 cm pancreatic cyst of the uncinate process. Recommend a contrast-enhanced, pancreas-protocol abdominal CT or MR in 2 years. 3. Cholelithiasis. 4. Diverticulosis. 5. Nonspecific prostate gland enlargement. Electronically signed by: Kendal Campbell MD 02/24/25 17:14 PM
[2025-02-24 17:16] LABS: Appearance Urine Clear (Clear); Glucose Urine UA Negative (Negative)
[2025-02-24] MEDS: SODIUM CHLORIDE 0.9% 1,000 ML IV ONE (17:32)
[2025-02-24 17:38] LABS: Bacteria Urine Automated None Seen (None Seen); Cast Urine Automated 0-2 /lpf (0-2); Epithelial Cell Urine Auto 0-2 /hpf (0-2); RBC Urine Automated 0-2 /hpf (0-2)
[2025-02-24 17:56] LABS: Chlamydia pneumoniae PCR Not Detected (NotDetected); Coronavirus 229E PCR Not Detected (NotDetected); Coronavirus CoV-2 (COVID19)PCR Not Detected (NotDetected); Coronavirus HKU1 PCR Not Detected (NotDetected); Coronavirus NL63 PCR Not Detected (NotDetected); Coronavirus OC43PCR Not Detected (NotDetected); Human Metapneumovirus PCR Not Detected (NotDetected); Parainfluenza Virus 1 PCR Not Detected (NotDetected); Parainfluenza Virus 2 PCR Not Detected (NotDetected); Parainfluenza Virus 3 PCR Not Detected (NotDetected); Parainfluenza Virus 4 PCR Not Detected (NotDetected); Respiratory Syncytial VirusPCR Not Detected (NotDetected); Rhinovirus/Enterovirus PCR Not Detected (NotDetected)
--- NOTE | 2025-02-24 20:14 | History & Physical Report ---
Date of Service February 24, 2025 Assessment & Plan (1) Sepsis: (2) Multifocal pneumonia: (3) Hypomagnesemia: (4) Hypoxia: Plan The patient is a 84 yo male with a PMH including subdural hematoma, COPD, DM type 2, Seizure Disorder, Pelvic fracture, Ambulatory dysfunction, Facial frac tures, anemia, history of acute respiratory failure with hypoxia, CAD, mild cognitive impairment, and history of TIA. The patient is referred to the [facility] ED from [facility] for a fever, and flu-like symptoms that began last evening. The temperature worsened today, was found to be 102 by EMS upon arrival to [facility]. His pulse ox was 89% on room air, and placed on NC 2 liters. At the time of arrival at the ED, his pulse ox had improved to 92% on room air. He received NSS 250ml and 1g acetaminophen IV from EMS. From the ED he received NSS 2liter bolus, and Zosyn 4.5g IV. Workup in the emergency department included a chest x-ray and CT angiography suggestive of multifocal pneumonia associated aspiration. CT scan head as reviewed by neurosurgical consult reported an actual improvement in the size of the subdural hematoma. Respiratory bio fire testing was negative, and magnesium was low 1.5. He was then referred to [facility] Hospitalist Service for admission for further evaluation and treatment. Sepsis due to multifocal pneumonia with hypoxia/COPD/Asthma- Involvement in the right upper lobe, right lower lobe, and lingula as noted on CTA scan Aspiration precautions. Zosyn 4.5 g IV every 8 hours DuoNebs every 2 hours as needed. Nasal cannula oxygen, titrate for pulse ox goal 92-94%, Respiratory BioFire test negative. MRSA swab pending Subdural hematoma- Reported as worsening by radiology, however, neurosurgery consult reports that it has decreased in size compared to their CT at their facility. Hypomagnesemia- Magnesium 1.5 on admission Give magnesium sulfate 2 g IV and recheck in the a.m. Thrush- Give Mycelex Troches Fluconazole 100 mg IV daily for 3 days Likely secondary to using Trelegy Ellipta PAF/Flutter- Hold metoprolol overnight due to low BP, may restart in AM if better BP Seizure disorder- Continue Keppra, gabapentin Hypothyroidism- Continue levothyroxine Hyperlipidemia- Continue atorvastatin Peripheral neuropathy- Continue gabapentin Depression- Sertraline History of Present Illness Chief Complaint: The patient is referred to the [facility] ED from [facility] for a fever, and flu-like symptoms that began last evening. The temperature worsened today, was found to be 102 by EMS upon arrival to [facility]. His pulse ox was 89% on room air, and placed on NC 2 liters. At the time of arrival at the ED, his pulse ox had improved to 92% on room air. He received NSS 250ml and 1g acetaminophen IV from EMS. From the ED he received NSS 2liter bolus, and Zosyn 4.5g IV. He was then referred to [facility] Hospitalist Service for admission for further evaluation and treatment. Primary Care Provider: [facility] The patient is a 84 yo male with a PMH including subdural hematoma, COPD, DM type 2, Seizure Disorder, Pelvic fracture, Ambulatory dysfunction, Facial fractures, anemia, history of acute respiratory failure with hypoxia, CAD, mild cognitive impairment, and history of TIA. The patient is referred to the [facility] ED from [facility] for a fever, and flu-like symptoms that began last evening. The temperature worsened today, was found to be 102 by EMS upon arrival to [facility]. His pulse ox was 89% on room air, and placed on NC 2 liters. At the time of arrival at the ED, his pulse ox had improved to 92% on room air. He received NSS 250ml and 1g acetaminophen IV from EMS. From the ED he received NSS 2liter bolus, and Zosyn 4.5g IV. Workup in the emergency department included a chest x-ray and CT angiography suggestive of multifocal pneumonia associated aspiration. CT scan head as reviewed by neurosurgical consult reported an actual improvement in the size of the subdural hematoma. Respiratory bio fire testing was negative, and magnesium was low 1.5. He was then referred to [facility] Hospitalist Service for admission for further evaluation and treatment. Allergies Allergy/AdvReac Type Severity Reaction Status Date / Time pollen extracts Allergy Mild CONGESTION Verified 01/07/25 23:07 Home Medications Medication Instructions Recorded Confirmed Type cyanocobalamin (vitamin B-12) 1,000 mcg PO QAM 11/07/19 02/24/25 History 1,000 mcg tablet (Vitamin B-12) atorvastatin 40 mg tablet (Lipitor) 40 mg PO HS #90 tabs 05/31/23 02/24/25 Rx ferrous sulfate 325 mg (65 mg 325 mg PO Q OTHER DAY #90 tabs 11/06/23 02/24/25 Rx iron) tablet,delayed release montelukast 10 mg tablet 10 mg PO HS #90 tabs 12/19/23 02/24/25 Rx fluticasone fur. 100 mcg-umeclid 1 inh inhalation QAM #180 ea 01/22/24 02/24/25 Rx 62.5 mcg-vilant 25 mcg inhalat.powder (Trelegy Ellipta) levothyroxine 50 mcg tablet 50 mcg PO DAILYBB 01/25/24 02/24/25 History acetaminophen 325 mg tablet 650 mg PO Q4 PRN MILD TO SEVERE 01/07/25 02/24/25 History PAIN acetaminophen 325 mg tablet 650 mg PO Q4 PRN TEMP > 100 01/07/25 02/24/25 History gabapentin 100 mg capsule 200 mg PO TID 01/07/25 02/24/25 History guaifenesin 100 mg/5 mL oral syrup 200 mg PO Q4H PRN Cough 01/07/25 02/24/25 History ipratropium 0.5 mg-albuterol 3 mg 3 ml inhalation Q4 PRN Shortness 01/07/25 02/24/25 History (2.5 mg base)/3 mL nebulization Of Breath Or Wheezing soln levetiracetam 500 mg tablet 1,000 mg PO AMHS 01/07/25 02/24/25 History (Keppra) medroxyprogesterone 5 mg tablet 5 mg PO QAM 01/07/25 02/24/25 History melatonin 5 mg tablet 5 mg PO HS 01/07/25 02/24/25 History metformin 500 mg tablet 500 mg PO QDB 01/07/25 02/24/25 History metoprolol tartrate 25 mg tablet 25 mg PO QAM 01/07/25 02/24/25 History pantoprazole 20 mg tablet,delayed 20 mg PO QAM 01/07/25 02/24/25 History release sennosides 8.6 mg-docusate sodium 1 tab-cap PO BID 01/07/25 02/24/25 History 50 mg tablet (Stimulant Laxative Plus) sertraline 100 mg tablet 100 mg PO BID 01/07/25 02/24/25 History sodium chloride 0.65 % nasal spray 1 spray intranasal TID 01/07/25 02/24/25 History aerosol ([place] Saline) Past Med/Surg History Problem List (Updated 02/24/25 @ 19:19 by Vick Velasquez M.D.) Sepsis (Acute) Multifocal pneumonia (Acute) Ambulatory dysfunction (Acute) Fall (Acute) Closed pelvic fracture (Acute) Sundowning COPD (chronic obstructive pulmonary disease) Pelvic fracture Diabetes type 2, controlled Seizure disorder (01/2019) Confusion Fall (Acute) Microcytic anemia Hypoxia Lumbar contusion (Acute) Head injury (Acute) Fall (Acute) Contusion of scalp (Acute) CHI (closed head injury) (Acute) Acute sinusitis Ambulatory dysfunction (Acute) Periorbital ecchymosis of left eye (Acute) Fracture of maxillary sinus (Acute) Closed fracture nasal bone (Acute) Elevated serum lactate dehydrogenase (Acute) Weakness (Acute) Acute respiratory failure with hypoxia Acute head trauma (Acute) Hypomagnesemia (Acute) Hematuria Fecal retention Hypoxia (Acute) Iron deficiency anemia Multiple pulmonary nodules Ex-smoker History of basal cell carcinoma (BCC) of skin (05/2020) Cerebral cavernoma (Chronic) Chronic pulmonary aspiration Tremor HANDS V tach Atelectasis 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 Vitamin D deficiency (Chronic) Tubular adenoma of colon (Chronic) Tinnitus of both ears (Chronic) Chronic rhinitis (Chronic) Anosmia Arteriosclerotic coronary artery disease (Chronic) Depression (Chronic) Dyslipidemia (Chronic) Mild cognitive impairment (Chronic) Osteoporosis (Chronic) Asthma (Chronic) TIA (transient ischemic attack) 2017 X 1 AND NONE SINCE Medical History Dementia Pneumonia HTN (hypertension), benign Fall from standing Fall Vomiting Tobacco use disorder Vomiting COPD (chronic obstructive pulmonary disease) SOB (shortness of breath) Fever Chewing tobacco use Hypoxia Pneumonia History of sinusitis History of acute bronchitis with bronchospasm Osteoarthritis Anxiety CAD (coronary artery disease) Seizure 01/29/19 - X2 ON THAT DAY AND WAS ADMITTED AND STARTED ON [place] AND NO SEIZURE SINCE Abdominal aortic aneurysm (AAA), 30-34 mm diameter Benign prostatic hyperplasia with urinary obstruction Hypertension Hypothyroidism (acquired) Type 2 diabetes mellitus Vitamin B12 deficiency Paroxysmal atrial fibrillation DX [address] [place]UELLAR IN [place] Atrial flutter DX [address] CUELLAR IN [place] Surgical History Presence of Watchman left atrial appendage closure device (06/24/22) S/P Mohs surgery for basal cell carcinoma History of colonoscopy History of lung biopsy (03/27/19) Navigational Bronchoscopy with ICG Dye, Robotic Right Video Assisted Thoracoscopy with Right Lower Lobe Wedge Resection with Mediastinal Lymphadenectomy and Lymph Node Biopsy Dr. Lynn 03/27/19 Hx of cardiac cath 2017 -- HEART CATH WITH STENT [address] [facility] WITH [address] CUELLAR LAST SEEN 12/20/2018 History of anesthesia reaction states "stopped breathing during MOHS procedure at the [facility] H/O 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 Family History Father Heart disease Other COPD (chronic obstructive pulmonary disease) Depression Family history non-contributory Denies family history of Ovarian cancer Prostate cancer Coronary heart disease Myocardial infarction Breast cancer Seizure Lung cancer Colorectal cancer Social History Smoking Status: Former smoker Tobacco Type: Cigarettes Age Started Using Tobacco: 18; Age Quit Using Tobacco: 33; packs per day: 2; Cigarettes Per Day: 20-40; Second Hand Exposure: No; Do You Dip or Chew Tobacco: Yes; Hx Alcohol Use: No Hx Substance Use: No Preferred Language: Kazakh Communication Ability: Impaired Visual Impairment: No Limitations Hearing Ability: Use of Hearing Aid Shoe Associate Required: No Beliefs That Will Affect Care: None marital status: Current Living Situation: Spouse Current Living Situation Comment: in house with current occupational status: retired 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 Physical Exam Physical Exam: The patient is awake, confused, normocephalic and atraumatic, lying in bed and in no acute distress. HEENT--PERRL, EOMI, mucous membranes and oropharynx mildy dry. THRUSH present Neck--supple. No JVD. No bruits. Thyroid normal, trachea midline, no adenopathy. Heart--normal S1 and S2. No murmurs, rubs or gallops. Lungs--clear bilaterally, no respiratory distress, no accessory muscle use. Abdomen--normal bowel sounds and soft. Nontender. Nondistended, no hernias or masses, no organomegaly. Extremities--no cyanosis or clubbing. No edema. Dermatologic--normal skin turgor, normal color, no abnormal lymph nodes, no rash. Neurologic--cranial nerves II through XII grossly intact. Rheumatologic--normal range of motion. Psychiatric--normal affect, mildly confused Results & Data Results & Data Vital Signs (Past 12 Hours) Vital Signs Temp Pulse Pulse Resp BP BP Pulse Ox 02/24/25 19:57 88 02/24/25 19:53 71 20 98/62 L 92 02/24/25 18:30 98/56 L 02/24/25 18:24 70 17 93 02/24/25 17:36 84 20 84/61 L 90 02/24/25 17:19 85 20 91/60 L 92 02/24/25 17:06 84 21 90 02/24/25 17:00 86/59 L 02/24/25 16:37 86 23 95/52 L 90 02/24/25 16:21 99 H 21 90 02/24/25 15:43 90 02/24/25 15:35 37.3 C 94 H 23 116/76 92 O2 Del Method 02/24/25 19:57 02/24/25 19:53 02/24/25 18:30 02/24/25 18:24 Room Air 02/24/25 17:36 Room Air 02/24/25 17:19 Room Air 02/24/25 17:06 Room Air 02/24/25 17:00 02/24/25 16:37 Room Air 02/24/25 16:21 Room Air 02/24/25 15:43 02/24/25 15:35 Room Air Laboratory Results Laboratory Results WBC 23.61 K/ul (4.8-10.8) H 02/24/25 15:29 RBC 4.54 M/uL (4.70-6.10) L 02/24/25 15: Hgb 13.4 g/dl (14.0-18.0) L 02/24/25 15: POC Hgb 15.0 g/dl (14.0-18.0) 02/24/25 15: Hct 41.2 % (42.0-52.0) L 02/24/25 15: POC Hct 44 % (42-52) 02/24/25 15: MCV 90.7 fL (80.0-100.0) 02/24/25 15: MCH 29.5 pg (25.0-34.0) 02/24/25: MCHC 32.5 g/dL (32.0-36.0) 02/24/25: RDW Std Deviation 55.4 fL (36.4-46.3) H 02/24/25: RDW Coeff of Ashu 16.9 % (11.5-14.5) H 02/24/25: Plt Count 193 K/uL (130-400) 02/24/25: MPV 10.6 fL (9.4-12.4) 02/24/25: Immature Gran % (Auto) 0.5 % 02/24/25: Neut % (Auto) 92.3 % 02/24/25: Lymph % (Auto) 3.5 % 02/24/25: [place] % (Auto) 3.4 % 02/24/25: Eos % (Auto) 0.1 % 02/24/25: Baso % (Auto) 0.2 % 02/24/25: Neut # (Auto) 21.77 K/uL (1.40-6.50) H 02/24/25: Lymph # (Auto) 0.83 K/uL (1.20-3.40) L 02/24/25: [place] # (Auto) 0.81 K/uL (0.11-0.59) H 02/24/25: Eos # (Auto) 0.03 K/uL (0.00-0.50) 02/24/25: Baso # (Auto) 0.05 K/uL (0.00-0.20) 02/24/25 Immature Gran # (Auto) 0.12 K/uL (0.01-0.20) 02/24/25 Toxic Vacuolation 2+ 02/24/25: PT 11.5 Seconds (9.0-12.0) 02/24/25 INR 1.1 (0.9-1.1) 02/24/25 VBG pH 7.44 (7.36-7.41) H 02/24/25: VBG pCO2 38 mmHg (38-50) 02/24/25 VBG pO2 44 mmHg 02/24/25 VBG HCO3 26 mmol/L 02/24/25 VBG O2 Saturation 78.4 % 02/24/25: VBG Base Excess 1.7 mEq/L 02/24/25 POC Sodium 137 mmol/L (135-144) 02/24/25 15: Sodium 134 mmol/L (136-145) L 02/24/25: POC Potassium 4.4 mmol/L (3.3-5.0) 02/24/25 15: Potassium 4.3 mmol/L (3.5-5.1) 02/24/25: POC Chloride 103 mmol/L (101-112) 02/24/25 15: Chloride 102 mmol/L (98-107) 02/24/25: Carbon Dioxide 24 mmol/L (21-32) 02/24/25: POC Total CO2 23 mmol/L (24-31) L 02/24/25 15: Anion Gap 8 (3-11) 02/24/25 15: POC Anion Gap 17.0 mmol/L (16-25) 02/24/25 15:35 POC BUN 23 mg/dl (7-18) H 02/24/25 15: BUN 24 mg/dl (6-23) H 02/24/25 15: Creatinine 1.00 mg/dl (0.6-1.4) 02/24/25 15: POC Creatinine 1.0 mg/dl (0.6-1.3) 02/24/25 15:35 Est Cr Clr Drug Dosing 47.7 ml/min 02/24/25 15: eGFR 74.68 02/24/25 15: BUN/Creatinine Ratio 24.0 (10-20) H 02/24/25 15: Glucose 142 mg/dl (70-99(Fasting)) H 02/24/25 15: POC Glucose (other) 142 mg/dl (70-99) H 02/24/25 15: Lactate 1.5 mmol/L (0.4-2.0) 02/24/25 15: Calcium 9.3 mg/dl (8.6-10.3) 02/24/25 15: POC Ioniz Calcium Bhaskar 1.12 mmol/l (1.12-1.32) 02/24/25 15: Magnesium 1.5 mg/dl (1.7-2.4) L 02/24/25 15: Total Bilirubin 0.5 mg/dl (0.2-1.0) 02/24/25 15: AST 22 U/L (13-39) 02/24/25 15: ALT 17 U/L (7-52) 02/24/25 15: Alkaline Phosphatase 84 U/L (34-104) 02/24/25 15: Troponin I High Sens 9.5 pg/ml (0-20) 02/24/25 15: Total Protein 7.9 gm/dl (6.0-8.3) 02/24/25 15: Albumin 3.7 gm/dl (3.4-5.0) 02/24/25: Globulin 4.2 gm/dl (2.5-4.0) H 02/24/25 15: Albumin/Globulin Ratio 0.9 (0.9-2) 02/24/25 15: Procalcitonin 0.12 ng/ml (0-0.5) 02/24/25 15: TSH 2.673 uIu/ml (0.300-4.500) 02/24/25 15: Urine Color Yellow 02/24/25 16:51 Urine Appearance Clear (Clear) 02/24/25 16:51 Urine pH 7.5 (4.5-7.5) 02/24/25 16:51 Ur Specific [place] 1.020 (1.000-1.030) 02/24/25 16:51 Urine Protein 2+ (Negative) H 02/24/25 16:51 Urine Glucose (UA) Negative (Negative) 02/24/25 16:51 Urine Ketones Negative (Negative) 02/24/25 16:51 Urine Blood Negative (Negative) 02/24/25 16:51 Urine Nitrite Negative (Negative) 02/24/25 16:51 Urine Bilirubin Negative (Negative) 02/24/25 16:51 Urine Urobilinogen Negative (Negative) 02/24/25 16:51 Ur Leukocyte Esterase Negative (Negative) 02/24/25 16:51 Urine WBC (Auto) 6-10 /hpf (0-5) H 02/24/25 16:51 Urine RBC (Auto) 0-2 /hpf (0-2) 02/24/25 16:51 U Hyaline Cast (Auto) 0-2 /lpf (0-2) 02/24/25 16:51 U Epithel Cells (Auto) 0-2 /hpf (0-2) 02/24/25 16:51 Urine Bacteria (Auto) None Seen (None Seen) 02/24/25 16:51 Urine Comment 02/24/25 16:51 Adenovirus (PCR) Not Detected (NotDetected) 02/24/25 15:39 B. pertussis DNA (PCR) Not Detected (NotDetected) 02/24/25 15:39 B.parapertussis DNA PCR Not Detected (NotDetected) 02/24/25 15:39 C. pneumoniae DNA (PCR) Not Detected (NotDetected) 02/24/25 15:39 Coronavirus OC43 (PCR) Not Detected (NotDetected) 02/24/25 15:39 Coronavirus HKU1 (PCR) Not Detected (NotDetected) 02/24/25 15:39 Coronavirus 229E (PCR) Not Detected (NotDetected) 02/24/25 15:39 SARS-CoV-2 (PCR) Not Detected (NotDetected) 02/24/25 15:39 Coronavirus NL63 (PCR) Not Detected (NotDetected) 02/24/25 15:39 Human Metapneumovir PCR Not Detected (NotDetected) 02/24/25 15:39 Influenza Type A (PCR) Not Detected (NotDetected) 02/24/25 15:39 Influenza Type B (PCR) Not Detected (NotDetected) 02/24/25 15:39 M. pneumoniae (PCR) Not Detected (NotDetected) 02/24/25 15:39 Parainfluenza 1 (PCR) Not Detected (NotDetected) 02/24/25 15:39 Parainfluenza 2 (PCR) Not Detected (NotDetected) 02/24/25 15:39 Parainfluenza 3 (PCR) Not Detected (NotDetected) 02/24/25 15:39 Parainfluenza 4 (PCR) Not Detected (NotDetected) 02/24/25 15:39 RSV (PCR) Not Detected (NotDetected) 02/24/25 15:39 Entero/Rhino (PCR) Not Detected (NotDetected) 02/24/25 15:39 Impressions Abdomen/Pelvis CT 02/24/25 15:13 Exam(s): CT ABDOMEN + PELVIS With Contrast IV Amt: 119 ml optiray 320 EXAM: CT Abdomen and Pelvis With Intravenous Contrast CLINICAL HISTORY: Weakness and Fever TECHNIQUE: Axial computed tomography images of the abdomen and pelvis with intravenous contrast. CTDI is 17.87 mGy and DLP is 916.65 mGy-cm. Automated exposure control was utilized for the study. A dose lowering technique was utilized adhering to the principles of ALARA. CONTRAST: Patient received 119 ml optiray 320 of IV contrast COMPARISON: CT chest 08/25/2021. FINDINGS: Lung bases: Left lower lobe pneumonia. ABDOMEN: Liver: Unremarkable. No mass. Gallbladder and bile ducts: Cholelithiasis. No ductal dilation. Pancreas: There is a 2.7 cm pancreatic cyst of the uncinate process. No mass. No ductal dilation. Spleen: Unremarkable. No splenomegaly. Adrenals: Stable right adrenal adenoma, no follow-up is needed. The left adrenal gland is unremarkable. Kidneys and ureters: Unremarkable. No solid mass. No hydronephrosis. Stomach and bowel: Diverticulosis. No obstruction. No mucosal thickening. PELVIS: Appendix: No findings to suggest acute appendicitis. Bladder: Unremarkable. No mass. Reproductive: Nonspecific prostate gland enlargement. ABDOMEN and PELVIS: Intraperitoneal space: Unremarkable. No free air. No significant fluid collection. Bones/joints: There are degenerative changes of the spine. No acute fracture. No dislocation. Soft tissues: Unremarkable. Vasculature: Abdominal aortic aneurysm measuring 3.5 cm in maximum diameter. Lymph nodes: Unremarkable. No enlarged lymph nodes. IMPRESSION: 1. Abdominal aortic aneurysm measuring 3.5 cm in maximum diameter. Mural plaque is noted without significant narrowing of the lumen. Recommend abdomen/pelvis CT or MR imaging follow-up in 2 years. 2. There is a 2.7 cm pancreatic cyst of the uncinate process. Recommend a contrast-enhanced, pancreas-protocol abdominal CT or MR in 2 years. 3. Cholelithiasis. 4. Diverticulosis. 5. Nonspecific prostate gland enlargement. Electronically signed by: Kendal Campbell MD 02/24/25 17:14 PM Chest CTA 02/24/25 15:13 Exam(s): CTA CHEST IV Amt: 119 ml optiray 320 EXAM: CT Angiography Chest With Intravenous Contrast CLINICAL HISTORY: Cough , Fever and weakness TECHNIQUE: Axial computed tomographic angiography images of the chest with intravenous contrast. MIPS images were created and reviewed. CTDI is 40. 66 mGy and DLP is 705.95 mGy-cm. Automated exposure control was utilized for the study. A dose lowering technique was utilized adhering to the principles of ALARA. MIP reconstructed images were created and reviewed. COMPARISON: CT chest 09/02/2021 FINDINGS: Pulmonary arteries: Dilated main pulmonary artery measuring 3.1 cm. No pulmonary embolus. Aorta: No acute findings. No thoracic aortic aneurysm. Lungs: Airspace opacities of the right lower lobe and to a lesser degree lingula and right upper lobe are concerning for atypical infection and/or aspiration. Pleural space: Unremarkable. No significant effusion. No pneumothorax. Heart: A mitral valve replacement is noted. Dense coronary artery calcifications are present. No cardiomegaly. No significant pericardial effusion. No evidence of RV dysfunction. Bones/joints: There are bilateral chronic rib fractures. There are degenerative changes of the spine. No acute fracture. No dislocation. Soft tissues: Asymmetric right breast mass measuring 4.2 cm. There is a 2.2 cm lesion underlying the dermis of the left axilla likely representing an epidermal inclusion cyst. Lymph nodes: Unremarkable. No enlarged lymph nodes. Adrenals: Stable 1.6 cm right adrenal adenoma. IMPRESSION: 1. No pulmonary embolus. 2. Airspace opacities of the right lower lobe and to a lesser degree lingula and right upper lobe are concerning for atypical infection and/or aspiration. 3. There is dilation of the pulmonary arteries. This is concerning for pulmonary artery hypertension. 4. Dense coronary artery calcifications are present. Consider cardiology referral. 5. Asymmetric right breast mass measuring 4.2 cm. This is stable since 2021, and as such considered benign. 6. Stable 1.6 cm right adrenal adenoma. Electronically signed by: Kendal Campbell MD 02/24/25 17:11 PM Chest X-Ray 02/24/25 15:13 XR chest 1V portable HISTORY: 84 years-old Male weakness acute weakness COMPARISON: 01/07/2025 TECHNIQUE: AP view of the FINDINGS: Right axilla is mildly enlarged. Coronary arterial stents are present. Atherosclerosis of the aorta. No pneumothorax or large pleural effusion. Mild patchy left basilar opacities. Degenerative changes of the shoulders and spine. Chronic left rib fractures. IMPRESSION: Mild patchy left basilar opacities may represent atelectasis versus pneumonia. ACT 112: Negative or not required by law. The above report was generated using voice recognition software. It may contain grammatical, syntax or spelling errors. Electronically signed by: Bulmaro Deluca M.D. 02/24/2025 3:[address] 02/24/25 15:14 CR Exam(s): CT HEAD Without Contrast EXAM: CT Head Without Intravenous Contrast CLINICAL HISTORY: Weakness TECHNIQUE: Axial computed tomography images of the head/brain without intravenous contrast. CTDI is 36.05 mGy and DLP is 624.41 mGy-cm. Automated exposure control was utilized for the study. A dose lowering technique was utilized adhering to the principles of ALARA. COMPARISON: CT head 01/07/2025 FINDINGS: Brain: Interval increase in size of the right subdural hematoma now measuring up to 1.4 cm previously measuring 1.1 cm. Redemonstrated encephalomalacia of the left cerebellum. Mild periventricular white matter hypodensities are most consistent with chronic microangiopathy. Midline shift: Stable minimal leftward midline shift. Ventricles: There is partial effacement of the right lateral ventricle without evidence of entrapment. Bones/joints: Unremarkable. No acute fracture. Soft tissues: Unremarkable. Sinuses: Significant mucosal thickening of the paranasal sinuses is noted. Mastoid air cells: Unremarkable as visualized. No mastoid effusion. IMPRESSION: 1. Interval increase in size of the right subdural hematoma now measuring up to 1.4 cm previously measuring 1.1 cm. 2. Stable minimal leftward midline shift. 3. There is partial effacement of the right lateral ventricle without evidence of entrapment. Communications: Verify Receipt Electronically signed by: Kendal Campbell MD 02/24/25 17:07 PM Code Status & VTE Plan Code Status DNR/DNI VTE Prophylaxis Plan VTE Prophylaxis will be ordered: Yes PG Care Time/CCT Total # of Minutes Spent Total Time Spent with Patient: Total time spent is greater than 50% in coordination of care (as documented) at patient's floor/unit and/or counseling patient: Coding Level of Care Code 01573 INT INP/OBS CARE 3/75MIN Diagnoses Sepsis A41.9 Multifocal pneumonia J18.8 Hypomagnesemia E83.42 Hypoxia R09.02
[2025-02-24] MEDS ORDERED: ALBUT/IPRATROP 3MG/0.5MG NEB 3 ML VIAL NEB PRN (21:13)
[2025-02-24] MEDS ORDERED: GLUCOSE 10 TAB/TUBE PO PRN (21:30)
[2025-02-24] MEDS ORDERED: GLUCAGON FOR INJ 1 MG VIAL SQ PRN (21:30)
[2025-02-24] MEDS ORDERED: GLUCOSE 40% GEL 15 GM TUBE PO PRN (21:30)
[2025-02-24] MEDS ORDERED: ALBUT/IPRATROP 3MG/0.5MG NEB 3 ML VIAL INH PRN (21:30)
[2025-02-24] MEDS ORDERED: CARBOHYDRATES FOR HYPOGLYCEMIA PO PRN (21:30)
[2025-02-24] MEDS ORDERED: DEXTROSE 50% 50 ML SYRINGE IV PRN (21:30)
[2025-02-24] MEDS ORDERED: ACETAMINOPHEN 325 MG TAB PO PRN ×2 (21:30)
[2025-02-24] MEDS: MAGNESIUM SULFATE / D5W 1 GM/100 ML BAG IV SCH (21:46)
[2025-02-24] MEDS: FLUCONAZOLE 100 MG/50 ML BAG IV SCH (21:52)
[2025-02-24] MEDS: INSULIN ASPART PER UNIT CHARGE SC SCH (22:21)
[2025-02-24] MEDS: FERROUS SULFATE 325 MG TAB PO SCH (22:39)
[2025-02-24] MEDS: levETIRAcetam 500 MG TAB PO SCH (22:39)
[2025-02-24] MEDS: CLOTRIMAZOLE 10 MG TROCHE BUCCAL SCH (22:40)
[2025-02-24] MEDS: SODIUM CHLORIDE 0.65% NA SOLN 45 ML (OCEAN) NAE SCH (22:40)
[2025-02-24] MEDS: diphenhydrAMINE Capsule 25 MG CAP PO ONE (22:40)
[2025-02-24] MEDS: PIPERACILLIN/TAZOBACTAM 4.5 GM/100 ML BAG IV SCH (22:51)
[2025-02-25] MEDS: LEVOTHYROXINE SODIUM 50 MCG TABLET PO SCH (06:10)
[2025-02-25 06:37] LABS: Hematocrit (blood only) 37.2 % (42.0-52.0); Hemoglobin 12.3 g/dl (14.0-18.0); Immature Granulocytes # (auto) 0.07 K/uL (0.01-0.20); Immature Granulocytes % (auto) 0.4 %; Mean Corpuscular Hemoglobin 30.8 pg (25.0-34.0); Mean Corpuscular Volume 93.0 fL (80.0-100.0); Platelet Count 155 K/uL (130-400); RDW Standard Deviation 58.6 fL (36.4-46.3); Red Blood Count 4.00 M/uL (4.70-6.10); White Blood Count 17.12 K/ul (4.8-10.8)
[2025-02-25 07:02] LABS: Albumin Level 3.2 gm/dl (3.4-5.0); Anion Gap 8.0 (3-11); Blood Urea Nitrogen 18.0 mg/dl (6-23); Calcium 8.7 mg/dl (8.6-10.3); Carbon Dioxide 23.0 mmol/L (21-32); Chloride 107.0 mmol/L (98-107); Creatinine Clr Calc Pharmacy 50.0 ml/min; Glucose 111.0 mg/dl (70-99(Fasting)); Magnesium 2.2 mg/dl (1.7-2.4); Potassium 4.0 mmol/L (3.5-5.1); Sodium 138.0 mmol/L (136-145)
[2025-02-25 07:23] LABS: Hemoglobin A1C 6.3 % (4.5-5.6)
[2025-02-25] MEDS: GABAPENTIN 100 MG CAP PO SCH (08:27)
[2025-02-25] MEDS: METOPROLOL TARTRATE 25 MG TAB PO SCH (08:29)
[2025-02-25] MEDS: CYANOCOBALAMIN (B-12) 500 MCG TABLET PO SCH (08:29)
[2025-02-25] MEDS: UMECLIDINIUM/VILANTEROL 62.5/25MCG 7 PUFFS/INHALER INH SCH (08:30)
[2025-02-25] MEDS: FLUTICASONE FUROATE 100MCG 14 PUFFS/INHALER INH SCH (08:32)
[2025-02-25] MEDS ORDERED: NON-FORMULARY MEDICATION (Fluticasone-Umeclidin-Vilanter [Trelegy Ellipta] 100-62.5-25 mcg INH SCH (09:00)
--- NOTE | 2025-02-25 09:05 | Hospitalist Progress Note ---
"Date of Service February 25, 2025 Assessment & Plan (1) Sepsis: (2) Multifocal pneumonia: (3) Hypomagnesemia: (4) Hypoxia: (5) Oral thrush: Plan The patient is a 84 yo male with a PMH including subdural hematoma, COPD, DM type 2, Seizure Disorder, Pelvic fracture, Ambulatory dysfunction, Facial fractures, anemia, history of acute respiratory failure with hypoxia, CAD, mild cognitive impairment, and history of TIA. The patient was referred to [facility] ED from [facility] for a fever, and flu-like symptoms that began last evening. He was found to be febrile at 102 F and hypoxic at 89% on room air by EMS upon arrival to [facility]; received Tylenol and supplemental oxygen en route to ED. Workup in ED revealed multifocal pneumonia associated with aspiration. Head CT reviewed by neurosurgical consult reported and actual improvement in the size of the subdural hematoma. He was admitted for management of his focal pneumonia. #Sepsis | Multifocal pneumonia with hypoxia | COPD | Asthma - Involvement in the right upper lobe, right lower lobe, and lingula as noted on CTA scan - Hypotension now resolved - Significant leukocytosis of 23 on admission now improved to 17 - MRSA nasal swab negative. Respiratory BioFire negative - Supplemental O2 to maintain O2 sat >92% - currently stable on room air - Appears clinically dehydrated - start IVF with NSS @ 80 cc/hr - Continue Zosyn IV - Continue DuoNebs every 2 hours as needed - Maintain aspiration precautions - Blood cultures pending #Thrush - likely secondary to using Trelegy Ellipta - Continue Mycelex Troches - Continue Fluconazole 100 mg IV daily x 3 days total #Hypomagnesemia - Mild, mag 1.5 on admission. S/p 1 g mag IV x 2 - Mag augmented appropriately to 2.2 #Subdural hematoma - Reported as worsening by radiology, however, neurosurgery consult reports that it has decreased in size compared to their CT at their facility #PAF/Fluttercontinue metoprolol #Seizure disordercontinue Keppra, gabapentin #Hypothyroidismcontinue levothyroxine #Hyperlipidemiacontinue atorvastatin #Peripheral neuropathycontinue gabapentin #Depressioncontinue sertraline VTE PPX: Lovenox Dispo: Continued inpatient stay Started IV fluids Admission and Anticipated Discharge Date Admission Date: February 24, 2025 Subjective Patient seen and evaluated at bedside with his RN. He is very pleasant and denies any acute complaints at this time. He denies shortness of breath or significant coughing. He has a good appetite. Denies nausea, vomiting, diarrhea. He appears clinically dehydrated, encouraged him to drink more fluids and also discussed starting IV fluids at a maintenance rate. We discussed continuing his current treatment regimen. No acute complaints or concerns at this time. Physical Exam Physical Exam: General: No acute distress, nondiaphoretic, well-developed, well-nourished. Skin: Warm, dry. Scattered scabs on lower extremities secondary to scratching/picking skin. Decreased skin turgor. Dry mucous membranes. Cardiac: Regular rate and rhythm without murmurs gallops or rubs. Pulm: Clear to auscultation bilaterally without wheezes, rales or rhonchi. Normal respiratory effort. 92% on room air. Abdominal: Soft, nontender, nondistended. Bowel sounds present. Neuro: A&O x2 (person, place - baseline). No focal neurological deficits. Results & Data Results & Data Vital Signs (Past 12 Hours) Vital Signs Temp Pulse Resp BP Pulse Ox O2 Del Method 02/25/25 07:04 98.1 F 78 18 124/75 92 Room Air 02/24/25 21:43 97.9 F 74 18 107/63 93 Room Air 02/24/25 21:30 Room Air Laboratory Results Reviewed CBC with differential Reviewed BMP/chemistries Reviewed UA Reviewed nasal MRSA screen Reviewed respiratory bio fire Diagnostic Findings Reviewed CT A/P, chest CTA, CXR, head CT Blood cultures pending PG Care Time/CCT Total # of Minutes Spent Total Time Spent with Patient: Total time spent is greater than 50% in coordination of care (as documented) at patient's floor/unit and/or counseling patient: Coding Level of Care Code 28923 SUB INP/OBS CARE 2/35MIN Diagnoses Sepsis A41.9 Multifocal pneumonia J18.8 Hypomagnesemia E83.42 Hypoxia R09.02 Oral thrush B37.0"
[2025-02-25] MEDS: ENOXAPARIN INJ 40 MG/0.4 ML SYR SQ ONE (11:34)
[2025-02-25] MEDS: SODIUM CHLORIDE 0.9% 1,000 ML IV SCH (14:03)
[2025-02-25] MEDS: INFLUENZA VACC TS2025-26(65y+)/PF (IIV3) 0.5mL Syr IM ONE (18:33)
[2025-02-25] MEDS: ATORVASTATIN 40 MG TAB PO SCH (20:26)
[2025-02-25] MEDS: MELATONIN 3 MG TAB PO SCH (20:29)
[2025-02-25] MEDS: MONTELUKAST SODIUM 10 MG TABLET PO SCH (20:30)
[2025-02-25] MEDS: DOCUSATE SODIUM/SENNA 50/8.6MG TAB PO SCH (20:31)
[2025-02-25] MEDS: SERTRALINE HCL 100 MG TABLET PO SCH (20:32)
[2025-02-25] MEDS: diphenhydrAMINE Capsule 25 MG CAP PO ONE (21:18)
[2025-02-26 07:52] LABS: Hematocrit (blood only) 35.3 % (42.0-52.0); Hemoglobin 11.4 g/dl (14.0-18.0); Mean Corpuscular Hemoglobin 29.7 pg (25.0-34.0); Mean Corpuscular Volume 91.9 fL (80.0-100.0); Platelet Count 156 K/uL (130-400); RDW Standard Deviation 57.3 fL (36.4-46.3); Red Blood Count 3.84 M/uL (4.70-6.10); White Blood Count 7.38 K/ul (4.8-10.8)
[2025-02-26 08:06] LABS: Albumin Level 3.1 gm/dl (3.4-5.0); Anion Gap 7.0 (3-11); Blood Urea Nitrogen 13.0 mg/dl (6-23); Calcium 8.6 mg/dl (8.6-10.3); Carbon Dioxide 23.0 mmol/L (21-32); Chloride 108.0 mmol/L (98-107); Creatinine Clr Calc Pharmacy 54.7 ml/min; Glucose 92.0 mg/dl (70-99(Fasting)); Potassium 3.8 mmol/L (3.5-5.1); Sodium 138.0 mmol/L (136-145)
[2025-02-26] MEDS: ENOXAPARIN INJ 40 MG/0.4 ML SYR SQ SCH (09:14)
[2025-02-26] MEDS: diphenhydrAMINE Capsule 25 MG CAP PO ONE (20:14)
--- NOTE | 2025-02-26 20:45 | Hospitalist Progress Note ---
"Date of Service February 26, 2025 Assessment & Plan (1) Sepsis: (2) Multifocal pneumonia: (3) Hypomagnesemia: (4) Hypoxia: (5) Oral thrush: Plan The patient is a 84 yo male with a PMH including subdural hematoma, COPD, DM type 2, Seizure Disorder, Pelvic fracture, Ambulatory dysfunction, Facial fractures, anemia, history of acute respiratory failure with hypoxia, CAD, mild cognitive impairment, and history of TIA. The patient was referred to [facility] ED from [facility] for a fever, and flu-like symptoms that began last evening. He was found to be febrile at 102 F and hypoxic at 89% on room air by EMS upon arrival to [facility]; received Tylenol and supplemental oxygen en route to ED. Workup in ED revealed multifocal pneumonia associated with aspiration. Head CT reviewed by neurosurgical consult reported and actual improvement in the size of the subdural hematoma. He was admitted for management of his focal pneumonia. #Sepsis | Multifocal pneumonia with hypoxia | COPD | Asthma - Involvement in the right upper lobe, right lower lobe, and lingula as noted on CTA scan - Hypotension now resolved. Significant leukocytosis of 23 on admission, now resolved - Supplemental O2 to maintain O2 sat >92% - remains stable on room air - Continue maintenance IV fluids - can likely dc 02/27 - Continue Zosyn IV - Continue DuoNebs every 2 hours as needed - Maintain aspiration precautions - Blood cultures negative #Thrush - likely secondary to using Trelegy Ellipta - Continue Mycelex Troches - Continue Fluconazole 100 mg IV daily x 3 days total #Hypomagnesemia - Mild, mag 1.5 on admission. S/p 1 g mag IV x 2 - Mag augmented appropriately to 2.2 #Subdural hematoma - Reported as worsening by radiology, however, neurosurgery consult reports that it has decreased in size compared to their CT at their facility #PAF/Fluttercontinue metoprolol #Seizure disordercontinue Keppra, gabapentin #Hypothyroidismcontinue levothyroxine #Hyperlipidemiacontinue atorvastatin #Peripheral neuropathycontinue gabapentin #Depressioncontinue sertraline VTE PPX: Lovenox Dispo: Anticipate discharge back to [facility] tomorrow 02/27 Admission and Anticipated Discharge Date Admission Date: February 24, 2025 Supervising Physician Co-Signing Physician Notes Attending Attestation: Chart reviewed, care plan d/w ANA MARIA Mcgee. I agree w/ the varela components of her documentation. Tristan Chairez MD Subjective Patient seen and evaluated in bedside chair. He reports feeling well overall. He denies any shortness of breath. His cough is minimal. We discussed possibly return home tomorrow. No additional complaints or concerns at this time. Physical Exam Physical Exam: General: No acute distress, nondiaphoretic, well-developed, well-nourished. Skin: Warm, dry. Scattered scabs on lower extremities secondary to scratching/picking skin. Appears euvolemic. Cardiac: Regular rate and rhythm without murmurs gallops or rubs. Pulm: Clear to auscultation bilaterally without wheezes, rales or rhonchi. Normal respiratory effort. 95% on room air. Abdominal: Soft, nontender, nondistended. Bowel sounds present. Neuro: A&O x2 (person, place - baseline). No focal neurological deficits. Results & Data Results & Data Vital Signs (Past 12 Hours) Vital Signs Temp Pulse Resp BP Pulse Ox O2 Del Method O2 Flow Rate 02/26/25 20:38 97.9 F 72 18 160/86 H 95 Room Air 02/26/25 19:15 98.4 F 87 18 136/83 96 Nasal Cannula 3 02/26/25 15:27 97.9 F 78 16 133/71 96 Room Air 02/26/25 09:00 Room Air Laboratory Results Reviewed CBC Reviewed BMP Reviewed blood cultures PG Care Time/CCT Total # of Minutes Spent Total Time Spent with Patient: Total time spent is greater than 50% in coordination of care (as documented) at patient's floor/unit and/or counseling patient: Coding Level of Care Code 62552 SUB INP/OBS CARE 2/35MIN Diagnoses Sepsis A41.9 Multifocal pneumonia J18.8 Hypomagnesemia E83.42 Hypoxia R09.02 Oral thrush B37.0"
--- NOTE | 2025-02-26 21:23 | Electrocardiogram Report ---
Test Reason : Blood Pressure : */* mmHG Vent. Rate : 96 BPM Atrial Rate : * BPM P-R Int : * ms QRS Dur : 74 ms QT Int : 342 ms P-R-T Axes : * 13 -68 degrees QTcB Int : 432 ms Atrial fibrillation Nonspecific ST and T wave abnormality Abnormal ECG When compared with ECG of 07-Jan-2025 21:38, Nonspecific T wave abnormality now evident in Inferior leads Nonspecific T wave abnormality now evident in Lateral leads Confirmed by Edgar Lal ([id number] on 02/26/2025 9:23:26 PM Referred By: Confirmed By: Edgar Lal
[2025-02-27 07:23] VITALS: BP 148/89; RESP 15; TEMP 98.1; O2SAT 93
[2025-02-27 07:38] LABS: Hematocrit (blood only) 36.4 % (42.0-52.0); Hemoglobin 12.1 g/dl (14.0-18.0); Mean Corpuscular Hemoglobin 30.6 pg (25.0-34.0); Mean Corpuscular Volume 91.9 fL (80.0-100.0); Platelet Count 155 K/uL (130-400); RDW Standard Deviation 56.6 fL (36.4-46.3); Red Blood Count 3.96 M/uL (4.70-6.10); White Blood Count 6.96 K/ul (4.8-10.8)
[2025-02-27 07:55] LABS: Albumin Level 3.4 gm/dl (3.4-5.0); Anion Gap 9.0 (3-11); Blood Urea Nitrogen 12.0 mg/dl (6-23); Calcium 8.8 mg/dl (8.6-10.3); Carbon Dioxide 23.0 mmol/L (21-32); Chloride 106.0 mmol/L (98-107); Creatinine Clr Calc Pharmacy 62.7 ml/min; Glucose 103.0 mg/dl (70-99(Fasting)); Potassium 3.8 mmol/L (3.5-5.1); Sodium 138.0 mmol/L (136-145)
[2025-02-27 10:13] VITALS: PULSE 85
--- NOTE | 2025-02-27 18:01 | Discharge Summary ---
"Discharge Summary Date of Service February 27, 2025 Principal Dx & Hospital Course #1 = Principal Diagnosis (1) Sepsis: (2) Multifocal pneumonia: (3) Hypomagnesemia: (4) Hypoxia: (5) Oral thrush: Plan The patient is a 84 yo male with a PMH including subdural hematoma, COPD, DM type 2, Seizure Disorder, Pelvic fracture, Ambulatory dysfunction, Facial fractures, anemia, history of acute respiratory failure with hypoxia, CAD, mild cognitive impairment, and history of TIA. The patient was referred to [facility] ED from [facility] for a fever, and flu-like symptoms that began last evening. He was found to be febrile at 102 F and hypoxic at 89% on room air by EMS upon arrival to [facility]; received Tylenol and supplemental oxygen en route to ED. Workup in ED revealed multifocal pneumonia associated with aspiration. Head CT reviewed by neurosurgical consult reported and actual improvement in the size of the subdural hematoma. He was admitted for management of his focal pneumonia. #Sepsis | Multifocal pneumonia with hypoxia | COPD | Asthma - Involvement in the right upper lobe, right lower lobe, and lingula as noted on CTA scan - Hypotension now resolved. Significant leukocytosis of 23 on admission, now resolved - Supplemental O2 to maintain O2 sat >92% - remains stable on room air - Treated with Zosyn IV while hospitalized and transitioned to Augmentin twice daily on discharge to complete 7-day total antibiotic course - Blood cultures negative >48 hours #Thrush - likely secondary to using Trelegy Ellipta - S/p Fluconazole 100 mg IV daily x 3 days total - Encourage rinsing mouth after inhaler ue #Hypomagnesemia - Mild, mag 1.5 on admission. S/p 1 g mag IV x 2 - Mag augmented appropriately to 2.2 #Subdural hematoma - Reported as worsening by radiology, however, neurosurgery consult reports that it has decreased in size compared to their CT at their facility #PAF/Fluttercontinue metoprolol #Seizure disordercontinue Keppra, gabapentin #Hypothyroidismcontinue levothyroxine #Hyperlipidemiacontinue atorvastatin #Peripheral neuropathycontinue gabapentin #Depressioncontinue sertraline VTE PPX: Lovenox Dispo: Discharged back to [facility] tomorrow 02/27 Notes For Next Care Provider Medication Changes From Visit Augmentin twice daily through 03/03 to complete 7-day total antibiotic course Admission HPI Per Admitting Provider The patient is a 84 yo male with a PMH including subdural hematoma, COPD, DM type 2, Seizure Disorder, Pelvic fracture, Ambulatory dysfunction, Facial fractures, anemia, history of acute respiratory failure with hypoxia, CAD, mild cognitive impairment, and history of TIA. The patient is referred to the [facility] ED from [facility] for a fever, and flu-like symptoms that began last evening. The temperature worsened today, was found to be 102 by EMS upon arrival to [facility]. His pulse ox was 89% on room air, and placed on NC 2 liters. At the time of arrival at the ED, his pulse ox had improved to 92% on room air. He received NSS 250ml and 1g acetaminophen IV from EMS. From the ED he received NSS 2liter bolus, and Zosyn 4.5g IV. Workup in the emergency department included a chest x-ray and CT angiography suggestive of multifocal pneumonia associated aspiration. CT scan head as reviewed by neurosurgical consult reported an actual improvement in the size of the subdural hematoma. Respiratory bio fire testing was negative, and magnesium was low 1.5. He was then referred to [facility] Hospitalist Service for admission for further evaluation and treatment. Discharge Exam General: No acute distress, nondiaphoretic, well-developed, well-nourished. Skin: Warm, dry. Scattered scabs on lower extremities secondary to scratching/picking skin. Appears euvolemic. Cardiac: Regular rate and rhythm without murmurs gallops or rubs. Pulm: Clear to auscultation bilaterally without wheezes, rales or rhonchi. Normal respiratory effort. 93% on room air. Abdominal: Soft, nontender, nondistended. Bowel sounds present. Neuro: A&O x2 (person, place - baseline). No focal neurological deficits. Discharge Plan Discharge Items Patient Disposition: Transfer Intermediate Fac Reason For Visit: MULTIFOCAL PNEUMONIA WITH HYPOXIA Discharge Diagnosis: Multifocal pneumonia Condition on Discharge: Fair Activity: Resume your previous activity Non-emergency contact: Primary Care Provider Call non-emergency contact if: you have any medication questions, your symptoms worsen and you have a fever Follow-up/Referrals: Enzo Renner [Primary Care Provider] - (Follow-up in 1-2 weeks) Diet: Carb Consistent or DM2 and Heart Healthy Addtl Attending Provider Instructions: Mr. Zurita, Ricardo were admitted to the hospital due to multifocal pneumonia with hypoxia (low oxygen saturation). You were treated with IV antibiotics and have greatly improved. You were no longer needing supplemental oxygen. You also had oral thrush which was treated with an antifungal medication and this has improved. This oral thrush was likely due to your Trelegy Ellipta inhaler. You will continue taking oral antibiotics at home to complete your course of treatment for the pneumonia infection. Upon discharge from the hospital: * Take Augmentin twice daily through 03/03. Start with your evening dose tonight (02/27) as you already received your morning dose of antibiotics. Side effects of antibiotics include GI upset. I recommend taking your antibiotics with food to prevent any associated nausea/vomiting/diarrhea. * I recommend rinsing your mouth after using your inhalers. This will help prevent the development of oral thrush. * Continue your home medications as prescribed. There have been no changes made to your usual home medications. * Follow-up with your PCP in 1-2 weeks. Please return to the hospital if you experience the following: Difficulty breathing, shortness of breath, chest pain, inability to tolerate oral intake, new or worsening confusion, passing out, or any other symptoms concerning for you. It was a pleasure taking care of you while you were in the hospital! Pending Studies at Discharge: Yes Studies:: Finalized blood cultures. Blood cultures negative>48 hrs on discharge Stand-Alone Forms: My [facility] Skilled Items Patient informed of condition?: Yes DNR: Yes Discharge Level of Care: Skilled Communicable Disease: No Discharge Prognosis: Stable Lines: None Urinary Catheter: No Medications and DC Order Prescriptions: New amoxicillin-pot clavulanate 875-125 mg tablet 1 tab PO BID Qty: 9 0RF Continued atorvastatin [Lipitor] 40 mg tablet 40 mg PO HS Qty: 90 3RF montelukast 10 mg tablet 10 mg PO HS Qty: 90 1RF Trelegy Ellipta 100-62.5-25 mcg blister with device 1 inh INHALATION QAM Qty: 180 1RF Rx Instructions: RINSE MOUTH WITH WATER AND SPIT AFTER USE ferrous sulfate 325 mg (65 mg iron) tablet,delayed release (DR/EC) 325 mg PO Q OTHER DAY Qty: 90 2RF cyanocobalamin (vitamin B-12) [Vitamin B-12] 1,000 mcg tablet 1,000 mcg PO QAM levothyroxine 50 mcg tablet 50 mcg PO DAILYBB pantoprazole 20 mg tablet,delayed release (DR/EC) 20 mg PO QAM metoprolol tartrate 25 mg tablet 25 mg PO QAM Rx Instructions: HOLD IF SBP < 100mmHg OR HR < 60 BPM metformin 500 mg tablet 500 mg PO QDB melatonin 5 mg Tablet 5 mg PO HS levetiracetam [Keppra] 500 mg tablet 1,000 mg PO AMHS medroxyprogesterone 5 mg tablet 5 mg PO QAM gabapentin 100 mg capsule 200 mg PO TID sertraline 100 mg tablet 100 mg PO BID ipratropium-albuterol 0.5 mg-3 mg(2.5 mg base)/3 mL solution for nebulization 3 ml INHALATION Q4 PRN (Reason: Shortness Of Breath Or Wheezing) guaifenesin 100 mg/5 mL Syrup 200 mg PO Q4H PRN (Reason: Cough) sennosides-docusate sodium [Stimulant Laxative Plus] 8.6-50 mg Tablet 1 tab-cap PO BID [place] Saline 0.65 % Aerosol,[place] 1 spray INTRANASAL TID acetaminophen 325 mg Tablet 650 mg PO Q4 MDD 3G PRN (Reason: MILD TO SEVERE PAIN) acetaminophen 325 mg Tablet 650 mg PO Q4 MDD 3G PRN (Reason: TEMP > 100) Discharge Orders: Discharge Order (Routine); Ordered 02/27/25 Ordered By: Ariela Salcedo/Other Patient Handouts: Managing Type 2 Diabetes Admission Data Admit Date/Time: 02/24/25 20:13 Attending Provider: Tristan Chairez Admit Provider: Isauro Elena Primary Care Provider: Enzo Renner Other Providers: Isauro Elena Other Interventions: Discharge Summary Assessment (RN) Last Done: 02/27/25 10:11 Hospital Stay Data Consultations 02/24/25 19:21 ED Decision to Admit Stat Diagnostic Imagining Performed Abdomen/Pelvis CT 02/24/25 15:13 Exam(s): CT ABDOMEN + PELVIS With Contrast IV Amt: 119 ml optiray 320 EXAM: CT Abdomen and Pelvis With Intravenous Contrast CLINICAL HISTORY: Weakness and Fever TECHNIQUE: Axial computed tomography images of the abdomen and pelvis with intravenous contrast. CTDI is 17.87 mGy and DLP is 916.65 mGy-cm. Automated exposure control was utilized for the study. A dose lowering technique was utilized adhering to the principles of ALARA. CONTRAST: Patient received 119 ml optiray 320 of IV contrast COMPARISON: CT chest 08/25/2021. FINDINGS: Lung bases: Left lower lobe pneumonia. ABDOMEN: Liver: Unremarkable. No mass. Gallbladder and bile ducts: Cholelithiasis. No ductal dilation. Pancreas: There is a 2.7 cm pancreatic cyst of the uncinate process. No mass. No ductal dilation. Spleen: Unremarkable. No splenomegaly. Adrenals: Stable right adrenal adenoma, no follow-up is needed. The left adrenal gland is unremarkable. Kidneys and ureters: Unremarkable. No solid mass. No hydronephrosis. Stomach and bowel: Diverticulosis. No obstruction. No mucosal thickening. PELVIS: Appendix: No findings to suggest acute appendicitis. Bladder: Unremarkable. No mass. Reproductive: Nonspecific prostate gland enlargement. ABDOMEN and PELVIS: Intraperitoneal space: Unremarkable. No free air. No significant fluid collection. Bones/joints: There are degenerative changes of the spine. No acute fracture. No dislocation. Soft tissues: Unremarkable. Vasculature: Abdominal aortic aneurysm measuring 3.5 cm in maximum diameter. Lymph nodes: Unremarkable. No enlarged lymph nodes. IMPRESSION: 1. Abdominal aortic aneurysm measuring 3.5 cm in maximum diameter. Mural plaque is noted without significant narrowing of the lumen. Recommend abdomen/pelvis CT or MR imaging follow-up in 2 years. 2. There is a 2.7 cm pancreatic cyst of the uncinate process. Recommend a contrast-enhanced, pancreas-protocol abdominal CT or MR in 2 years. 3. Cholelithiasis. 4. Diverticulosis. 5. Nonspecific prostate gland enlargement. Electronically signed by: Kendal Campbell MD 02/24/25 17:14 PM Chest CTA 02/24/25 15:13 Exam(s): CTA CHEST IV Amt: 119 ml optiray 320 EXAM: CT Angiography Chest With Intravenous Contrast CLINICAL HISTORY: Cough , Fever and weakness TECHNIQUE: Axial computed tomographic angiography images of the chest with intravenous contrast. MIPS images were created and reviewed. CTDI is 40. 66 mGy and DLP is 705.95 mGy-cm. Automated exposure control was utilized for the study. A dose lowering technique was utilized adhering to the principles of ALARA. MIP reconstructed images were created and reviewed. COMPARISON: CT chest 09/02/2021 FINDINGS: Pulmonary arteries: Dilated main pulmonary artery measuring 3.1 cm. No pulmonary embolus. Aorta: No acute findings. No thoracic aortic aneurysm. Lungs: Airspace opacities of the right lower lobe and to a lesser degree lingula and right upper lobe are concerning for atypical infection and/or aspiration. Pleural space: Unremarkable. No significant effusion. No pneumothorax. Heart: A mitral valve replacement is noted. Dense coronary artery calcifications are present. No cardiomegaly. No significant pericardial effusion. No evidence of RV dysfunction. Bones/joints: There are bilateral chronic rib fractures. There are degenerative changes of the spine. No acute fracture. No dislocation. Soft tissues: Asymmetric right breast mass measuring 4.2 cm. There is a 2.2 cm lesion underlying the dermis of the left axilla likely representing an epidermal inclusion cyst. Lymph nodes: Unremarkable. No enlarged lymph nodes. Adrenals: Stable 1.6 cm right adrenal adenoma. IMPRESSION: 1. No pulmonary embolus. 2. Airspace opacities of the right lower lobe and to a lesser degree lingula and right upper lobe are concerning for atypical infection and/or aspiration. 3. There is dilation of the pulmonary arteries. This is concerning for pulmonary artery hypertension. 4. Dense coronary artery calcifications are present. Consider cardiology referral. 5. Asymmetric right breast mass measuring 4.2 cm. This is stable since 2021, and as such considered benign. 6. Stable 1.6 cm right adrenal adenoma. Electronically signed by: Kendal Campbell MD 02/24/25 17:11 PM Chest X-Ray 02/24/25 15:13 XR chest 1V portable HISTORY: 84 years-old Male weakness acute weakness COMPARISON: 01/07/2025 TECHNIQUE: AP view of the FINDINGS: Right axilla is mildly enlarged. Coronary arterial stents are present. Atherosclerosis of the aorta. No pneumothorax or large pleural effusion. Mild patchy left basilar opacities. Degenerative changes of the shoulders and spine. Chronic left rib fractures. IMPRESSION: Mild patchy left basilar opacities may represent atelectasis versus pneumonia. ACT 112: Negative or not required by law. The above report was generated using voice recognition software. It may contain grammatical, syntax or spelling errors. Electronically signed by: Bulmaro Deluca M.D. 02/24/2025 3:[address] 02/24/25 15:14 CR Exam(s): CT HEAD Without Contrast EXAM: CT Head Without Intravenous Contrast CLINICAL HISTORY: Weakness TECHNIQUE: Axial computed tomography images of the head/brain without intravenous contrast. CTDI is 36.05 mGy and DLP is 624.41 mGy-cm. Automated exposure control was utilized for the study. A dose lowering technique was utilized adhering to the principles of ALARA. COMPARISON: CT head 01/07/2025 FINDINGS: Brain: Interval increase in size of the right subdural hematoma now measuring up to 1.4 cm previously measuring 1.1 cm. Redemonstrated encephalomalacia of the left cerebellum. Mild periventricular white matter hypodensities are most consistent with chronic microangiopathy. Midline shift: Stable minimal leftward midline shift. Ventricles: There is partial effacement of the right lateral ventricle without evidence of entrapment. Bones/joints: Unremarkable. No acute fracture. Soft tissues: Unremarkable. Sinuses: Significant mucosal thickening of the paranasal sinuses is noted. Mastoid air cells: Unremarkable as visualized. No mastoid effusion. IMPRESSION: 1. Interval increase in size of the right subdural hematoma now measuring up to 1.4 cm previously measuring 1.1 cm. 2. Stable minimal leftward midline shift. 3. There is partial effacement of the right lateral ventricle without evidence of entrapment. Communications: Verify Receipt Electronically signed by: Kendal Campbell MD 02/24/25 17:07 PM Pending Results Patient Have Any Pending Studies at Discharge: Yes Discharge Instructions Given to Patient (Per Discharging Provider) Mr. Zurita, Ricardo were admitted to the hospital due to multifocal pneumonia with hypoxia (low oxygen saturation). You were treated with IV antibiotics and have greatly improved. You were no longer needing supplemental oxygen. You also had oral thrush which was treated with an antifungal medication and this has improved. This oral thrush was likely due to your Trelegy Ellipta inhaler. You will continue taking oral antibiotics at home to complete your course of treatment for the pneumonia infection. Upon discharge from the hospital: * Take Augmentin twice daily through 03/03. Start with your evening dose tonight (02/27) as you already received your morning dose of antibiotics. Side effects of antibiotics include GI upset. I recommend taking your antibiotics with food to prevent any associated nausea/vomiting/diarrhea. * I recommend rinsing your mouth after using your inhalers. This will help prevent the development of oral thrush. * Continue your home medications as prescribed. There have been no changes made to your usual home medications. * Follow-up with your PCP in 1-2 weeks. Please return to the hospital if you experience the following: Difficulty breathing, shortness of breath, chest pain, inability to tolerate oral intake, new or worsening confusion, passing out, or any other symptoms concerning for you. It was a pleasure taking care of you while you were in the hospital! Total Time Total Time Spent Total Time Spent (In Minutes): Greater than 30 minutes spent completing this discharge process including direct patient care, medication reconciliation, documentation, review of labs and images, and coordination of care. Coding Level of Care Code 41558 INP/OBS DISCH >30 MIN Diagnoses Sepsis A41.9 Multifocal pneumonia J18.8 Hypomagnesemia E83.42 Hypoxia R09.02 Oral thrush B37.0"
== END 2025-02-27 10:34 | DRG 871 ==
LOC: ED 15:07 → 3N 20:13 → SUATTDRO 20:13 → 3N 21:37